=== PATIENT | female | born 1945 | race Caucasian/White ===

== ENCOUNTER 2016-05-15 20:38 | Emergency (ER) | payer OTHER ==
[~2016-05-15] VITALS: Ht 160 cm; Wt 78.0 kg
[~2016-05-15 20:38] MED LIST: AMIL5TAB15; FENO145T26 PO; GABA1CAP4 PO; HYDR25TA5 PO; LEVO50TA6 PO; LIDO5DIS10 TD; MCR/50 PO; POTA1CAP2 PO; TNR50 PO; TRAM-10 PO; VTMD PO; ZOLM1TAB3 PO; ZOLP5TAB PO
[2016-05-15 20:43] VITALS: TEMP 36.9; Ht 160 cm; Wt 78.0 kg
[2016-05-15] MEDS ORDERED: POTA10CA28 PO (21:30)
[2016-05-15] MEDS ORDERED: LDDP5 TOP (21:30)
--- NOTE | 2016-05-15 22:12 | DIAGNOSTIC IMAGING REPORT ---
PELVIS 1 OR 2 VIEW ROUTINE, LEFT KNEE 3 VIEWS, LEFT FEMUR 2 VIEWS ROUTINE CLINICAL HISTORY: fall, left hip and knee pain COMPARISON STUDY: None. FINDINGS: No acute fracture or dislocation within the pelvis, hips, left femur, left knee. The bones are osteopenic. The sacrum appears intact. There are surgical clips within the left inguinal region. Mild cartilage space narrowing within the bilateral hips. There is a left total knee arthroplasty. The hardware appears intact. No significant knee effusion. Irregularity at the greater trochanter is likely chronic. IMPRESSION: No acute fracture or dislocation within the pelvis, hips, left femur, or left knee. Electronically signed by: Alfonzo Sparrow M.D. 05/15/2016 10:10 PM Dictated Date/Time: 05/15/2016 10:06 PM
--- NOTE | 2016-05-15 22:13 | DIAGNOSTIC IMAGING REPORT ---
LEFT SHOULDER 3 VIEWS HISTORY: fall, left shoulder pain COMPARISON: None. FINDINGS: There is no fracture or dislocation. The bones are osteopenic. The left clavicle appears intact. There is a left total shoulder arthroplasty. The hardware is intact. No radiopaque foreign bodies. IMPRESSION: No acute fracture or dislocation within the left shoulder. Left total shoulder arthroplasty is noted. Electronically signed by: Alfonzo Sparrow M.D. 05/15/2016 10:11 PM Dictated Date/Time: 05/15/2016 10:10 PM
--- NOTE | 2016-05-15 22:16 | DIAGNOSTIC IMAGING REPORT ---
LUMBAR SPINE 5 VIEWS HISTORY: fall, low back pain COMPARISON: Lumbar spine 04/10/2016. FINDINGS: There is no fracture. No subluxation. Mild dextroscoliosis remains unchanged. The bones are osteopenic. Moderate facet degenerative changes within the mid to lower lumbar spine. Moderate disc space narrowing L3-L4. Mild disc space narrowing at L4-L5 and L5-S1. There is also mild disc space narrowing at L2-L3. This is not significantly changed. IMPRESSION: No significant change compared to the prior study. No acute fractures within the lumbar spine. Electronically signed by: Alfonzo Sparrow M.D. 05/15/2016 10:14 PM Dictated Date/Time: 05/15/2016 10:12 PM
--- NOTE | 2016-05-15 22:18 | DIAGNOSTIC IMAGING REPORT ---
CHEST ONE VIEW PORTABLE HISTORY: fall, left rib pain COMPARISON: Chest 09/24/2015. FINDINGS: The heart remains borderline enlarged. No pleural effusions. No pneumothorax. No focal lung consolidations. No evidence for pulmonary edema. There is a left shoulder prosthesis and cervical spine fusion hardware. No acute rib fractures identified. IMPRESSION: No significant change compared to the prior study. No acute process. Electronically signed by: Alfonzo Sparrow M.D. 05/15/2016 10:16 PM Dictated Date/Time: 05/15/2016 10:14 PM
--- NOTE | 2016-05-15 22:33 | DIAGNOSTIC IMAGING REPORT ---
HEAD CT NONCONTRAST CT DOSE: 930.20 mGy.cm HISTORY: fall, head injury TECHNIQUE: Multiaxial CT images of the head were performed without the use of intravenous contrast. Automated exposure control was utilized for this study. Comparison: None. Findings: The paranasal sinuses and mastoid air cells are clear. The calvarium and skull base are intact. The ventricles and sulci are within normal limits. There is no hematoma, midline shift, or acute infarct. Bilateral temporomandibular joint prostheses are noted. Focal area of sclerosis within the left occipital bone. This is likely due to old postoperative change. Calcified 1.4 cm extra-axial mass adjacent to the petrous apex. This likely represents a calcified meningioma. Impression: No acute intracranial abnormality. A 1.4 cm calcified extra-axial mass adjacent to the petrous apex. This favors a calcified meningioma. Electronically signed by: Alfonzo Sparrow M.D. 05/15/2016 10:31 PM Dictated Date/Time: 05/15/2016 10:26 PM
--- NOTE | 2016-05-15 22:38 | DIAGNOSTIC IMAGING REPORT ---
CERVICAL SPINE CT CT DOSE: HISTORY: fall, neck pain TECHNIQUE: Multiaxial CT images of the cervical spine were performed and reformatted in the sagittal and coronal plane without the use of contrast. COMPARISON: None. FINDINGS: No fractures. No subluxation. Prevertebral soft tissues and the C1-C2 interval are intact. No pneumothorax. Bilateral temporal mandibular joint prostheses. The hardware appears intact. Incomplete fusion of the left posterior C1 arch. This is considered to be a developmental variant. Moderate disc space narrowing at C2-C3 and C6-C7. There is anterior cervical discectomy and fusion from C3 through C6. The hardware appears intact. IMPRESSION: No fractures within the cervical spine. Postoperative and degenerative changes as described above. Electronically signed by: Alfonzo Sparrow M.D. 05/15/2016 10:36 PM Dictated Date/Time: 05/15/2016 10:30 PM
[2016-05-15] MEDS ORDERED: OXYC-57 PO (22:56)
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
[2016-05-15] MEDS ORDERED: PERCOCET HOME PACK PO ONE (23:00)
--- NOTE | 2016-05-15 23:09 | EMERGENCY ROOM VISIT NOTE ---
ED Visit Note First contact with patient: 20:54 Staff note: I have reviewed the Patients chart and have discussed this case with my PA. I generally agree with the ED note and findings.
[2016-05-15 23:24] VITALS: BP 186/110; PULSE 90; O2SAT 97
== END 2016-05-15 23:25 | disposition home or self-care (01) ==
LOC: C.EDB 20:39 → C.EDC 23:25
DX: T14.8 Other injury of unspecified body region (principal); W01.190A Fall on same level from slipping, tripping and stumbling with subsequent striking against furniture, initial encounter; Z86.718 Personal history of other venous thrombosis and embolism; Z79.899 Other long term (current) drug therapy

== ENCOUNTER → 2016-08-05 | Outpatient (CLI) | payer OTHER ==
[~2016-08-05] MED LIST changes: -FENO145T26 PO; +LDDP5 TOP; -LIDO5DIS10 TD; -MCR/50 PO; +NITR50CA39 PO; +POTA10CA28 PO; -POTA1CAP2 PO; -VTMD PO
--- NOTE | 2016-08-05 14:14 | DIAGNOSTIC IMAGING REPORT ---
LEFT ANKLE MIN 3 VIEWS CLINICAL HISTORY: Left ankle pain. COMPARISON: None FINDINGS: Alignment of the left ankle is anatomic. There is no acute fracture or suspicious lesion. There is mild plantar calcaneal spurring. There is mild lateral ankle soft tissue swelling. IMPRESSION: 1. No acute fracture or dislocation of the left ankle. 2. Mild plantar calcaneal spurring. 3. Mild lateral ankle soft tissue swelling. Electronically signed by: David Spring M.D. 08/05/2016 2:12 PM Dictated Date/Time: 08/05/2016 2:11 PM
--- NOTE | 2016-08-05 16:04 | DIAGNOSTIC IMAGING REPORT ---
LEFT FOOT 3 VIEWS CLINICAL HISTORY: Left foot pain. FINDINGS: 3 views of the left foot are obtained. No prior studies are available for comparison at the time of dictation. The skeletal structures are osteopenic. There is no radiographic evidence of fracture. The joint spaces of the foot appear well-maintained. There is a large plantar calcaneal enthesophyte. The overlying soft tissues are within normal limits. Atherosclerotic calcification is noted in the regional arteries. IMPRESSION: 1. No acute bony abnormality is seen in the left foot. 2. Osteopenia and plantar heel spur as above. Electronically signed by: Van Henry M.D. 08/05/2016 4:02 PM Dictated Date/Time: 08/05/2016 4:01 PM
== END | disposition home or self-care (01) ==
LOC: C.RDSM 13:21
PROVIDERS: ATTEND Physician Assistant
DX: M25.572 Pain in left ankle and joints of left foot (principal); M85.872 Other specified disorders of bone density and structure, left ankle and foot; M77.32 Calcaneal spur, left foot

== ENCOUNTER → 2017-04-02 | Outpatient (CLI) | payer OTHER | END | disposition home or self-care (01) | LOC: C.RDSM 10:38 | PROVIDERS: ATTEND Physical Medicine & Rehabilitation Sports Medicine | DX: M25.561 Pain in right knee (principal); M25.562 Pain in left knee ==

== ENCOUNTER → 2017-05-12 | Outpatient (CLI) | payer OTHER ==
[~2017-05-12] MED LIST changes: +ACET-1256 PO; +DICL1GEL12 EXT; +FEXO5TAB2 PO; +GABA1CAP PO; +LISI20TA3 PO; +ONDA4TAB10 SL; +POTA20TA16 PO; +VNTHFA/IN INH; +[UNRECOGNIZED DRUG - CODE] PO
--- NOTE | 2017-05-12 11:38 | DIAGNOSTIC IMAGING REPORT ---
L HAND MIN 3 VIEWS HISTORY: 72 years-old Female LEFT HAND PAIN persistent left hand pain status post fall approximately 2 months prior. COMPARISON: None available TECHNIQUE: 3 views of the left hand FINDINGS: Bones are mildly demineralized. At least moderate degenerative changes are seen throughout the interphalangeal joints. Moderate first carpometacarpal, radiocarpal and triscaphe osteoarthritis also noted. Chondrocalcinosis is seen within the radiocarpal joint and also within the distribution of the TFCC. There is mild apex lateral angulation of the second PIP joint. Mild dorsal hand soft tissue swelling. No opaque foreign body. IMPRESSION: 1. Mild dorsal hand soft tissue swelling without acute fracture identified. 2. Multifocal degenerative changes about the hand and wrist as above with radiocarpal and TFCC chondrocalcinosis. 3. Mild apex lateral angulation of the second PIP joint is likely degenerative in nature. Correlate with clinical exam to exclude subluxation. The above report was generated using voice recognition software. It may contain grammatical, syntax or spelling errors. Electronically signed by: Oumar Khan M.D. 05/12/2017 11:37 AM Dictated Date/Time: 05/12/2017 11:34 AM
== END | disposition home or self-care (01) ==
LOC: C.RDSM 11:20
PROVIDERS: ATTEND Physician Assistant
DX: M79.89 Other specified soft tissue disorders (principal); M19.042 Primary osteoarthritis, left hand; M11.29 Other chondrocalcinosis, multiple sites

== ENCOUNTER → 2017-06-17 | Outpatient (CLI) | payer OTHER ==
[~2017-06-17] MED LIST changes: -AMIL5TAB15; +GABA-113 PO; +GABA100C13 PO; -GABA1CAP PO; -GABA1CAP4 PO; -HYDR25TA5 PO; -LDDP5 TOP; -NITR50CA39 PO; -POTA10CA28 PO; -TNR50 PO; -TRAM-10 PO; -ZOLM1TAB3 PO
--- NOTE | 2017-06-17 13:49 | DIAGNOSTIC IMAGING REPORT ---
L WRIST MIN 3 VIEWS ROUTINE CLINICAL HISTORY: Left wrist pain COMPARISON: None. DISCUSSION: No acute fractures or subluxations are visualized. There is chondrocalcinosis present. There are mild degenerative changes in the wrist. IMPRESSION: Chondrocalcinosis and mild degenerative change. No acute fractures Electronically signed by: Leonardo Clements M.D. 06/17/2017 1:47 PM Dictated Date/Time: 06/17/2017 1:47 PM
--- NOTE | 2017-06-17 13:54 | DIAGNOSTIC IMAGING REPORT ---
LEFT SHOULDER 3 VIEWS HISTORY: LEFT SHOULDER AND WRIST PAIN COMPARISON: Left shoulder 05/15/2016. FINDINGS: There is again noted a reverse left total shoulder arthroplasty. The hardware appears intact. No fracture or dislocation. Soft tissues are unremarkable. The left clavicle is intact. IMPRESSION: 1. No fracture or dislocation within the left shoulder. 2. Reversal total shoulder arthroplasty. The hardware appears intact. Electronically signed by: Alfonzo Sparrow M.D. 06/17/2017 1:52 PM Dictated Date/Time: 06/17/2017 1:51 PM
== END | disposition home or self-care (01) ==
LOC: C.RDSM 08:00
PROVIDERS: ATTEND Physician Assistant
DX: M25.532 Pain in left wrist (principal); M25.512 Pain in left shoulder

== ENCOUNTER → 2017-07-07 | Outpatient (CLI) | payer OTHER ==
[~2017-07-07] MED LIST changes: -GABA100C13 PO
== END | disposition home or self-care (01) ==
LOC: C.RDSM 15:41
PROVIDERS: ATTEND Physical Medicine & Rehabilitation
DX: M79.605 Pain in left leg (principal)

== ENCOUNTER → 2017-07-17 | Day surgery (SDC) | payer OTHER ==
[2017-05-19 15:23] VITALS: BMI 32.0
[2017-06-26 11:42] VITALS: Ht 154.9 cm; Wt 79.5 kg
[~2017-07-17] VITALS: Ht 154.9 cm; Wt 79.5 kg
[~2017-07-17] MED LIST changes: +IOPAMIDOL INJ 61% 15 ML VIAL ONE; +IOPAMIDOL IV ONE; +LIDOCAINE HCL 1% MPF 5 ML VIAL INJ ONE; +LIDOCAINE HCL 1% MPF 5 ML VIAL ONE; +SODIUM CHLORIDE 0.9% INJ 10 ML VIAL INJ ONE; +SODIUM CHLORIDE 0.9% INJ 10 ML VIAL ONE
--- NOTE | 2017-07-17 13:25 | History & Physical Bridge - SC ---
H&P Re-Evaluation Bridge Note: I have examined the patient, reviewed the History & Physical and in the interval since the performance of the History & Physical I have noted the following changes of clinical significance: No changes noted
--- NOTE | 2017-07-17 13:48 | [facility] Post Operative Brief Note ---
Immediate Operative Summary Operative Date Jul 17, 2017. Pre-Operative Diagnosis Severe lumbar spinal stenosis with synovial cyst causing radicular problems down left leg Post-Operative Diagnosis Same Procedure(s) Performed Lumbar Epidural Steroid Injection Surgeon Dr. Surjit Mcdonough Crackling Press Operator Surgeon(s) None Estimated Blood Loss 0 Findings Consistent with Post-Op Diagnosis Specimens NA Drains None Anesthesia Type Local Complication(s) none Disposition Disposition:
--- NOTE | 2017-07-17 13:49 | Discharge Instructions ---
Discharge Instructions Date of Service Jul 17, 2017. 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 Post Anesthesia Instructions: If you have had General Anesthesia or IV Sedation: * Do not drive today. * Resume driving when surgeon permits. * Do not make important decisions or sign legal documents today. * Call surgeon for: 1. Temperature elevations greater than 101 degrees F. 2. Uncontrollable pain. 3. Excessive bleeding. 4. Persistent nausea and vomiting. 5. Medication intolerance (nausea, vomiting or rash). * For nausea and vomiting use only clear liquids such as: tea, soda, bouillon until nausea subsides, then gradually increase diet as tolerated. * If you have any concerns or questions, call your surgeon's office. If physician is unavailable and it is an emergency, call 911 or go to the nearest emergency room. . Diet Recommendations Recommended Home Diet: resume previous diet Procedures Procedures Performed: Lumbar Epidural Steroid Injection Pending Studies Studies pending at discharge: no Medical Emergencies . Who to Call and When: Medical Emergencies: If at any time you feel your situation is an emergency, please call 911 immediately. . Non-Emergent Contact Non-Emergency issues call your: Specialist . . "Provider Documentation" section prepared by Lemuel Mcdonough. .
[2017-07-17 13:50] VITALS: TEMP 36.6
[2017-07-17 14:20] VITALS: BP 160/80; PULSE 80; O2SAT 99
--- NOTE | 2017-07-17 14:55 | OPERATIVE REPORT ---
DATE OF OPERATION: 07/17/2017 PREOPERATIVE DIAGNOSIS: Severe spinal stenosis with a synovial cyst L5-S1 causing left lower extremity radiculopathy. POSTOPERATIVE DIAGNOSIS: Same. PROCEDURE: Left paramedian L5-S1 intralaminar epidural steroid injection under fluoroscopic guidance. INDICATIONS: The patient is a 72-year-old female who presents today for an epidural steroid injection as the pain has become intractable. She is also scheduled to see a spine surgeon for possible resection of the synovial cyst, but feels that her leg is getting weaker, it is impacting her function and wants something done in the interim while awaiting potential evaluation. PHYSICAL EXAMINATION: GENERAL: Pleasant female seated comfortably. She has no distal weakness, has decreased subjective sensation in the L5 dermatomal distribution of her left lower extremity. CONSENT: Verbal and written consent was obtained from patient. Risks and benefits were reviewed. Risks include but are not limited to epidural abscess, epidural hematoma, allergic reaction, dural puncture. The patient wishes to proceed. DESCRIPTION OF PROCEDURE: The patient was taken back to the special procedures room of the [facility] where she was maintained in prone position. Backside was cleansed with Betadine x3 and a dry sterile dressing was applied. Fluoroscope was used to identify the L5-S1 intralaminar space and overlying skin on the left side was anesthetized with 4 mL of lidocaine 1% with a 25 gauge 1.5-inch needle. A 22 gauge 4.25-inch Tuohy needle was then directed down towards the intralaminar space. Loss of resistance was noted at a depth of just under 9 cm. Isovue-300 contrast 1 mL was injected in, which demonstrated epidural uptake pattern. She then underwent injection after negative aspiration of 40 mg Depo-Medrol and 4 mL of preservative free sodium chloride. Injection was done very slowly as she had reproduction of familiar radicular sensation down the leg. DISPOSITION: 1. The patient is taken out into the discharge recovery area where she will be discharged home once discharge criteria have been met. 2. Follow up in the [facility] office in 2-4 weeks. I attest to the content of the Intraoperative Record and any orders documented therein. Any exception s are noted below.
== END | disposition home or self-care (01) ==
LOC: X.SURG 12:26
PROVIDERS: ATTEND Physical Medicine & Rehabilitation
DX: M48.061 Spinal stenosis, lumbar region without neurogenic claudication (principal); M54.16 Radiculopathy, lumbar region; M71.38 Other bursal cyst, other site

== ENCOUNTER 2020-11-01 12:56 | Inpatient (IN) ==
--- NOTE | 2020-11-01 13:55 | Emergency Department Note ---
Impression & Plan Cystitis, Arm pain, left ED Provider Note NAME: DEBBIE BONE AGE: 75 SEX: F : 1945 ARRIVES VIA: Ambulance INFORMANT: Patient, ED PROVIDER(S): Blade Rowan MD Chief Complaint: Hematuria HPI: Patient does present with concern for hematuria has been ongoing for the last 1 to 2 days. The patient does have a recent history of urosepsis per the patient's [id number] which occurred at the end of August. Patient did have a recent admission at [facility]. Patient does complain of some mild back disco mfort and some increasing urinary frequency. The patient denies any chills but always feels warm. No reported chest pains or shortness of breath. The patient does have some chronic left shoulder pain does have some contractures of the left hand which are chronic in nature. Patient does have a prior history of a left total shoulder. Patient is try taking ebar-ebp-lgaseof medications but without improvement in symptoms. ROS: See HPI for pertinent positives and negatives. A total of 10 systems were reviewed and otherwise negative. Past medical history: See below Surgical history: See below Social history: See below Physical Exam: GENERAL: NAD, non-toxic. EYE EXAM: Normal conjunctiva. PERRL, no anisocoria and EOM's grossly intact w/o pain. [OROPHARYNX: Moist mucus membranes. Grossly normal dentition. ] NECK: Supple, no nuchal rigidity, no adenopathy, non-tender. No signs of mening ismus. LUNGS: Clear to auscultation. Normal chest wall mechanics. HEART: Irregularly irregular, no MRG. ABDOMEN: Abdomen soft, non-tender, normo-active bowel sounds, no masses, no rebound or guarding. BACK: No CVA TTP. SKIN: No rashes and no bruising. UPPER EXTREMITIES: Upper extremities are grossly normal. LOWER EXTREMITIES: Grossly normal, no edema. NEURO EXAM: A&O x3, cranial nerves II-XII grossly intact, normal speech, moves all 4 extremities on command w/o issue. Differential diagnoses: Infection, dehydration, metabolic abnormality, hypo/hyperglycemia, electrolyte disturbance, anemia, hypoxia, cardiac sources, intracerebral event, toxicologic, neurologic, as well as other pathologies. Course: Patient was seen and evaluated the bedside. Full history physical exam was performed. EKG interpreted by me Possible A. fib with a rate of 80, normal QRS, normal axis, PVC noted. Imaging Studies: See below Cardiac monitoring: An order was placed for continuous cardiac monitoring. The monitor shows a rate of 82 with irregular irregular rhythm. MDM: Present with concern for hematuria. Blood work was obtained. Blood work fairly unremarkable. Urinalysis does appear to be infected. After further discussion with the patient patient's family were bedside there is concerned about inability to care at home they have discussed possible placement to [facility]. I did have the employment evaluator/case manager talk with the family the patient was subsequently admitted to [facility]-C under Dr. Dickey with [facility]. Past Med/Surg History Medical History Ambulatory dysfunction Anemia Chronic back pain CKD (chronic kidney disease), stage III Degenerative disc disease GERD (gastroesophageal reflux disease) Hearing loss in left ear Hyperlipidemia Hypertension Hypothyroidism Migraine Nausea and vomiting after administration of anesthetic agent Osteoarthritis Parkinson disease Recurrent UTI Spinal stenosis Surgical History History of appendectomy History of bilateral cataract extraction History of bilateral tubal ligation History of bladder surgery botox injections into bladder History of bladder suspension procedure x2 History of brain surgery "microvascular decompression" X2 @ [facility] 2009? History of colonoscopy with polypectomy History of dilatation and curettage History of esophagogastroduodenoscopy (EGD) History of fusion of cervical spine C3-C6; normal ROM History of left breast biopsy x2--benign History of lumbar discectomy L4-L5 History of mandibular surgery x2 2007 after accident--1st time wired shut 2nd sx metal jaw put in---normal ROM History of open reduction and internal fixation (ORIF) procedure right ankle History of partial hysterectomy History of shoulder surgery x4 on left History of surgery brain stimulator removed 1 yr after placed History of surgery on arm right x2 d/t dog bite History of surgery on right wrist fx repair, no hardware History of tooth extraction History of total left knee replacement (TKR) History of total right knee replacement (TKR) History of wisdom tooth extraction Status post correction of deviated nasal septum Status post deep brain stimulator placement 2009 @ [facility] Family History Son Family history of reaction to anesthesia nausea/vomiting Family history of diabetes mellitus Son Family history of reaction to anesthesia nausea/vomiting Son Family history of reaction to anesthesia nausea/vomiting Father Family history of diabetes mellitus Mother Family history of diabetes mellitus Family hx of colon cancer Grandmother (Paternal) Family history of diabetes mellitus Social History Smoking Status: Never smoker Second Hand Exposure: No; Do You Dip or Chew Tobacco: No; Hx Alcohol Use: No Hx Substance Use: No Preferred Language: Kazakh Communication Ability: Effective Pantomimist Required: No Beliefs That Will Affect Care: None Current Living Situation: Family Current Living Situation Comment: lives with at home; but currently staying with son and DIL Other Information That Helps Us Care for You: No Feels Safe at Home: Yes Safety Concerns: Feels Safe At This Time Assistive Devices: Glasses Allergies Allergies Allergy/AdvReac Type Severity Reaction Status Date / Time bee venom protein (honey bee) Allergy Severe ANAPHYLAXIS Verified 11/01/20 19:20 shellfish derived Allergy Severe anaphylaxis Verified 11/01/20 19:20 Sulfa (Sulfonamide Allergy Severe ANAPHYLAXIS Verified 11/01/20 19:20 Antibiotics) Home Meds Home Medications Medication Instructions Recorded Confirmed Toviaz 4 mg PO QAM 06/21/19 11/01/20 acetaminophen 1,000 mg PO BID 06/21/19 11/01/20 amlodipine 10 mg PO QAM 06/21/19 11/01/20 carbidopa-levodopa 1 tab PO TID 06/21/19 11/01/20 ferrous sulfate 325 mg PO QAM 06/21/19 11/01/20 nitrofurantoin macrocrystal 100 mg PO HS 06/21/19 11/01/20 omeprazole 20 mg PO QAM 06/21/19 11/01/20 potassium chloride 10 meq PO BID 06/21/19 11/01/20 acetaminophen 650 mg PO Q4H PRN MDD 3G 11/01/20 11/01/20 albuterol sulfate 1 inh INHALATION Q4H PRN 11/01/20 11/01/20 alum-mag hydroxide-simeth [Mi-Acid] 30 ml PO Q4H PRN 11/01/20 11/01/20 baclofen 10 mg PO BID PRN 11/01/20 11/01/20 ezetimibe 10 mg PO HS 11/01/20 11/01/20 gabapentin 100 mg PO BID 11/01/20 11/01/20 isosorbide mononitrate 30 mg PO QAM 11/01/20 11/01/20 lactase [Dairy-Aid] 3,000 unit PO AC PRN 11/01/20 11/01/20 lidocaine [Aspercreme (lidocaine 1 patch TOPICAL DAILY 11/01/20 11/01/20 HCl)] zolpidem 5 mg PO HS PRN 11/01/20 11/01/20 Results & Data (ED) Vital Signs Vital Signs - 24 hr 11/01/20 13:00 11/01/20 13:02 11/01/20 14:00 Temperature 37.0 C Temperature Source Oral Pulse Rate 84 84 85 Pulse Rate [Apical] 84 Pulse Rate from SpO2 Sensor 80 79 Respiratory Rate 22 20 22 Respiratory Effort / Characteristics Non-Labored Respiratory Depth Normal Respiratory Pattern Regular Blood Pressure 157/87 H 151/77 H 158/91 H Blood Pressure [Right Arm] 151/77 H Blood Pressure Mean 110 101 113 Blood Pressure Mean [Right Arm] 101 Pulse Oximetry 95 94 95 Oxygen Delivery Method Room Air Sepsis Recent Fever Within 48 Hours No Sepsis New/Unexplained Change in Mental Status No Sepsis Action Taken by Nursing No Action Required 11/01/20 15:01 11/01/20 15:03 11/01/20 16:00 Temperature Temperature Source Pulse Rate 83 83 75 Pulse Rate [Apical] 83 Pulse Rate from SpO2 Sensor 68 75 Respiratory Rate 16 20 21 Respiratory Effort / Characteristics Non-Labored Spontaneous Respiratory Depth Normal Respiratory Pattern Regular Blood Pressure 138/69 Blood Pressure [Right Arm] 139/73 Blood Pressure Mean 92 Blood Pressure Mean [Right Arm] 95 Pulse Oximetry 96 96 97 Oxygen Delivery Method Room Air Sepsis Recent Fever Within 48 Hours Sepsis New/Unexplained Change in Mental Status Sepsis Action Taken by Nursing 11/01/20 17:00 11/01/20 17:39 11/01/20 18:00 Temperature Temperature Source Pulse Rate 85 81 78 Pulse Rate [Apical] Pulse Rate from SpO2 Sensor 80 84 Respiratory Rate 23 20 22 Respiratory Effort / Characteristics Respiratory Depth Respiratory Pattern Blood Pressure 149/95 H 149/95 H 136/79 Blood Pressure [Right Arm] Blood Pressure Mean 113 113 98 Blood Pressure Mean [Right Arm] Pulse Oximetry 94 96 94 Oxygen Delivery Method Room Air Sepsis Recent Fever Within 48 Hours Sepsis New/Unexplained Change in Mental Status Sepsis Action Taken by Custodial Medications Current Medication List: was personally reviewed by me Laboratory Data Attestation: I reviewed the patient's lab results. Result diagrams: 11/02/20 03:09 11/02/20 03:09 Lab Results 11/01/20 11/01/20 Range/Units 13:58 13:58 WBC 8.42 (4.8-10.8) K/uL RBC 4.45 (4.2-5.4) M/uL Hgb 12.2 (12.0-16.0) g/dL Hct 37.9 (37-47) % MCV 85.2 (80-100) fL MCH 27.4 (25-34) pg MCHC 32.2 (32-36) g/dL RDW Std Deviation 45.8 (36.4-46.3) fL RDW Coeff of Tsering 14.7 H (11.5-14.5) % Plt Count 295 (130-400) K/uL MPV 9.7 (7.4-10.4) fL Immature Gran % (Auto) 0.1 % Neut % (Auto) 63.2 % Lymph % (Auto) 25.4 % [place] % (Auto) 8.2 % Eos % (Auto) 2.7 % Baso % (Auto) 0.4 % Neut # (Auto) 5.32 (1.4-6.5) K/uL Lymph # (Auto) 2.14 (1.2-3.4) K/uL [place] # (Auto) 0.69 H (0.11-0.59) K/uL Eos # (Auto) 0.23 (0-0.5) K/uL Baso # (Auto) 0.03 (0-0.2) K/uL Immature Gran # (Auto) 0.01 (0.00-0.02) K/uL Sodium 140 (136-145) mmol/L Potassium 4.0 (3.5-5.1) mmol/L Chloride 108 H (98-107) mmol/L Carbon Dioxide 26 (21-32) mmol/L Anion Gap 6.0 (3-11) BUN 17 (7-18) mg/dl Creatinine 0.61 (0.6-1.2) mg/dl Est Cr Clr Drug Dosing 78.6 ml/min Est GFR ( Amer) 103.5 ml/min Est GFR (Non-Af Amer) 89.3 ml/min BUN/Creatinine Ratio 27.3 H (10-20) Glucose 97 (70-99) mg/dl Calcium 9.3 (8.5-10.1) mg/dl Total Bilirubin 0.7 (0.2-1) mg/dl AST 12 L (15-37) U/L ALT 11 L (12-78) U/L Alkaline Phosphatase 93 (45-117) U/L Troponin I < 0.015 (0-0.045) ng/ml Total Protein 7.2 (6.4-8.2) gm/dl Albumin 3.7 (3.4-5.0) gm/dl Globulin 3.5 (2.5-4.0) gm/dl Albumin/Globulin Ratio 1.1 (0.9-2) TSH 1.450 (0.300-4.500) uIu/ml Administered Medications Acetaminophen (Acetaminophen 325 Mg Tab) 650 mg PO Q4H PRN PRN Reason: Pain or Fever Stop: 12/01/20 21:32 Last Admin: 11/01/20 22:26 Dose: 650 mg Documented by: [id number] Amlodipine Besylate (Amlodipine Besylate 5 Mg Tab) 10 mg PO QAM [facility] Stop: 12/02/20 08:59 Last Admin: 11/02/20 08:19 Dose: 10 mg Documented by: [id number] Carbidopa/Levodopa (Carbidopa/Levodopa 25/100mg Tab) 1 tab PO TID [facility] Stop: 12/01/20 21:32 Last Admin: 11/02/20 08:18 Dose: 1 tab Documented by: [id number] Admin: 11/01/20 22:27 Dose: 1 tab Documented by: [id number] Ezetimibe (Ezetimibe 10 Mg Tablet) 10 mg PO HS [facility] Stop: 12/01/20 21:32 Last Admin: 11/01/20 22:27 Dose: 10 mg Documented by: [id number] Enoxaparin Sodium (Enoxaparin Inj 40 Mg/0.4 Ml Syr) 40 mg SQ Q24H [facility] Stop: 12/01/20 21:59 Last Admin: 11/01/20 22:27 Dose: 40 mg Documented by: [id number] Gabapentin (Gabapentin 100 Mg Cap) 100 mg PO BID [facility] Stop: 12/01/20 21:32 Last Admin: 11/02/20 08:19 Dose: 100 mg Documented by: [id number] Admin: 11/01/20 22:27 Dose: 100 mg Documented by: [id number] Sodium Chloride (Nss 1000ml) 1,000 mls @ 80 mls/hr IV .[id number] [facility] Stop: 11/02/20 10:02 Last Admin: 11/01/20 22:26 Dose: 80 mls/hr Documented by: [id number] Isosorbide Mononitrate (Isosorbide [place] Extended Rel 30 Mg Tabcr) 30 mg PO [facility] Stop: 12/02/20 08:59 Last Admin: 11/02/20 08:19 Dose: 30 mg Documented by: [id number] Lidocaine (Lidocaine 5% 1 Patch) 1 patch TD [facility] Stop: 12/02/20 08:59 Last Admin: 11/02/20 08:20 Dose: 1 patch Documented by: [id number] Miscellaneous (Toviaz - Order Awaiting Action) 1 ea N/A QS [facility] Stop: 12/02/20 00:00 Last Admin: 11/02/20 08:18 Dose: Not Given Documented by: [id number] Admin: 11/01/20 23:32 Dose: Not Given Documented by: [id number] Miscellaneous (Remove Lidoderm Patch) 1 ea N/A DAILY@2100 [facility] Stop: 12/01/20 21:32 Last Admin: 11/01/20 22:27 Dose: 1 ea Documented by: [id number] Pantoprazole Sodium (Pantoprazole 40 Mg Tab) 40 mg PO [facility] Stop: 12/02/20 08:59 Last Admin: 11/02/20 08:19 Dose: 40 mg Documented by: [id number] Zolpidem Tartrate (Zolpidem Tartrate 5 Mg Tab) 5 mg PO HS PRN PRN Reason: Sleep Stop: 12/01/20 22:59 Last Admin: 11/01/20 23:32 Dose: 5 mg Documented by: [id number] Discontinued Medications Acetaminophen (Acetaminophen 500 Mg Tab) 1,000 mg PO NOW STA Stop: 11/01/20 14:08 Last Admin: 11/01/20 15:09 Dose: 1,000 mg Documented by: [id number] Ceftriaxone Sodium (Rocephin) 2,000 mg in 70 mls @ 140 mls/hr IV NOW STA Stop: 11/01/20 17:12 Last Infusion: 11/01/20 18:11 Dose: 0 mls/hr Documented by: [id number] Admin: 11/01/20 17:12 Dose: 140 mls/hr Documented by: [id number] Magnesium Sulfate/Dextrose (Magnesium Sulfate / D5w) 1 gm in 100 mls @ 50 mls/hr IV 0430 ONE Stop: 11/02/20 06:29 Last Infusion: 11/02/20 06:46 Dose: 0 mls/hr Documented by: [id number] Admin: 11/02/20 04:44 Dose: 50 mls/hr Documented by: [id number] Lidocaine (Lidocaine 5% 1 Patch) 1 patch TD NOW STA Stop: 11/01/20 14:08 Last Admin: 11/01/20 15:09 Dose: 1 patch Documented by: [id number] Potassium Chloride (Potassium Chloride Crtab 20 Meq Tabcr) 40 meq PO NOW STA Stop: 11/02/20 04:18 Last Admin: 11/02/20 04:45 Dose: 40 meq Documented by: [id number] Potassium Chloride (Potassium Chloride Crtab 20 Meq Tabcr) 40 meq PO NOW STA Stop: 11/02/20 08:20 Last Admin: 11/02/20 08:40 Dose: 40 meq Documented by: [id number] Tramadol HCl (Tramadol Hcl 50 Mg Tablet) 50 mg PO NOW STA Stop: 11/01/20 14:08 Last Admin: 11/01/20 15:09 Dose: 50 mg Documented by: [id number] Discharge Plan Visit Data Chief Complaint: Hematuria Stated Complaint: HEMATURIA, L ARM PAIN ED Provider: Blade Rowan Discharge Problem: Cystitis, Arm pain, left Patient Disposition: Admitted As Inpatient Discharge Instructions Interventions: ED Discharge Assessment Last Done: 11/01/20 20:46
[2020-11-01] MEDS ORDERED: traMADol HCL 50 MG TABLET PO STA (14:07)
[2020-11-01] MEDS ORDERED: ACETAMINOPHEN 500 MG TAB PO STA (14:07)
[2020-11-01] MEDS ORDERED: LIDOCAINE 5% 1 PATCH TD STA (14:07)
[2020-11-01 14:19] LABS: Basophils # (auto) 0.03 K/uL (0-0.2); Basophils % (auto) 0.4 %; Eosinophils # (auto) 0.23 K/uL (0-0.5); Eosinophils % (auto) 2.7 %; Hematocrit (blood only) 37.9 % (37-47); Hemoglobin 12.2 g/dL (12.0-16.0); Immature Granulocytes # (auto) 0.01 K/uL (0.00-0.02); Immature Granulocytes % (auto) 0.1 %; Lymphocytes # (auto) 2.14 K/uL (1.2-3.4); Lymphocytes % (auto) 25.4 %; Mean Corpuscular Hemoglobin 27.4 pg (25-34); Mean Corpuscular Hgb Conc 32.2 g/dL (32-36); Mean Corpuscular Volume 85.2 fL (80-100); Mean Platelet Volume 9.7 fL (7.4-10.4); Monocytes # (auto) 0.69 K/uL (0.11-0.59); Monocytes % (auto) 8.2 %; Neutrophils # (auto) 5.32 K/uL (1.4-6.5); Neutrophils % (auto) 63.2 %; Platelet Count 295 K/uL (130-400); RDW Coefficient of Variation 14.7 % (11.5-14.5); RDW Standard Deviation 45.8 fL (36.4-46.3); Red Blood Count 4.45 M/uL (4.2-5.4); White Blood Count 8.42 K/uL (4.8-10.8)
--- NOTE | 2020-11-01 14:31 | XRay Report ---
XR chest 1V portable HISTORY: weakness COMPARISON: Chest 05/15/2016. FINDINGS: Cardiac silhouette remains mildly enlarged. No focal lung consolidations to suggest pneumon ia. No pleural effusions. No pneumothorax. There is a left shoulder prosthesis. IMPRESSION: No acute process. ACT 112: Negative or not required by law. Electronically signed by: Alfonzo Sparrow M.D. 11/01/2020 2:30 PM
--- NOTE | 2020-11-01 14:32 | XRay Report ---
LEFT SHOULDER 4 VIEWS HISTORY: Left shoulder pain COMPARISON: Left shoulder radiograph 08/06/2018. FINDINGS: Postoperative changes again noted consistent with a prior reverse left total shoulder arthr oplasty. The hardware appears intact. No abnormal periprosthetic lucency. No fracture or dislocation. The left clavicle is intact. Soft tissues are unremarkable. IMPRESSION: No acute fracture or dislocation of the left shoulder. Prior left total shoulder arthroplasty. ACT 112: Negative or not required by law. Electronically signed by: Alfonzo Sparrow M.D. 11/01/2020 2:31 PM
[2020-11-01 14:37] LABS: Alanine Aminotransferase 11 U/L (12-78); Albumin Level 3.7 gm/dl (3.4-5.0); Aspartate Aminotransferase 12 U/L (15-37); BUN Creatinine Ratio 27.3 (10-20); Blood Urea Nitrogen 17 mg/dl (7-18); Calcium 9.3 mg/dl (8.5-10.1); Carbon Dioxide 26 mmol/L (21-32); Chloride 108 mmol/L (98-107); Creatinine Clr Calc Pharmacy 78.6 ml/min; Est GFR (African American) 103.5 ml/min; Est GFR (Non-African American) 89.3 ml/min; Glucose 97 mg/dl (70-99); Sodium 140 mmol/L (136-145)
[2020-11-01 14:48] LABS: Albumin Globulin Ratio 1.1 (0.9-2); Alkaline Phosphatase 93 U/L (45-117); Bilirubin,Total 0.7 mg/dl (0.2-1); Globulin 3.5 gm/dl (2.5-4.0); Total Protein 7.2 gm/dl (6.4-8.2); Troponin I < 0.015 ng/ml (0-0.045)
[2020-11-01 15:59] LABS: Appearance Urine Cloudy (Clear); Bilirubin Urine Negative (Negative); Blood Urine 2+ (Negative); Color Urine Yellow; Glucose Urine UA Negative (Negative); Ketones Urine Negative (Negative); Leukocyte Esterase Urine 3+ (Negative); Nitrite Urine Negative (Negative); Protein Urine 3+ (Negative); Urobilinogen Urine Negative (Negative); pH Urine 8.5 (4.5-7.5)
[2020-11-01 16:26] LABS: Epithelial Cell Urine 0-5 /lpf (0-5)
[2020-11-01 16:27] LABS: Bacteria Urine 3+ (Negative); WBC Urine >30 /hpf (0-5)
[2020-11-01] MEDS ORDERED: cefTRIAXone SODIUM 2,000 MG/70 ML BAG IV STA (16:43)
--- NOTE | 2020-11-01 18:05 | History & Physical Report ---
Date of Service November 01, 2020 Assessment & Plan (1) UTI (urinary tract infection): Pt is 75 y/o F with PMH HTN, dyslipidemia, hypothyroidism, anemia, recurrent UTI, recurrent falls, Parkinson, insomnia, GERD, spinal stenosis, chronic back pain, CKD III and others listed below presented to ER for complaint of hematuria, foul smelling urine. H/O UTI 09/22/2020, treated at [facility] with Rocephin x3 days and discharged on Ceftin, urine culture pansensitive E. coli Today in ER patient afebrile, vitals stable, BUN: 17, Cr: 0.61 UA:3+bacteria, >30 WBC, 3+leukocyte esterase, 2+ blood. Was given Rocephin 2GM IV Urine culture pending Rocephin IV Hold chronic nitrofurantoin CBC, BMP in a.m. (2) Ambulatory dysfunction: (3) Parkinson disease: History of Parkinson's. Previously followed with Dr. Fields. Patient was referred to movement disorder clinic at [facility] [place] however did not follow-up. Reports baseline uses wheelchair and wheeled walker Continue carbidopa/levodopa PT/OT roni I have made multiple attempts at contacting family members (, as well as pt's son - Enrrique Maxwell) listed on contact list without answer. Further clarification of medication list and baseline ambulation will be needed (4) Hypertension: Continue amlodipine (5) Shoulder pain: C/O Left shoulder pain. H/O frozen shoulder, arthroplasty Xray Shoulder: no acute changes lidocaine patch prn (6) Abnormal EKG: EKG: very poor tracing making interpretation difficult. appears sinus rhythm with PVC Initial Troponin negative. Denies CP, SOB Trend troponin Repeat EKG in am (7) Hyperlipidemia: Patient denied statin use in past Continue ezetimibe (8) Hypothyroidism: TSH: 1.4 Does not appear that patient has been taking levothyroxine. Last prescribed 11/2019 (9) CKD (chronic kidney disease), stage III: Cr: 0.6. ~Baseline 0.8 Monitor renal functions, avoid nephrotoxic agents when possible (10) GERD (gastroesophageal reflux disease): Continue PPI (11) Chronic back pain: Continue gabapentin, baclofen DVT Prophylaxis -Lovenox SQ Full Code as per discussion with pt Follows with Dr Robles for routine care Pt was seen and care coordinated with Dr Dickey. See addendum History of Present Illness Chief Complaint: hematuria Primary Care Provider: Soledad Jorge MD Pt is 75 y/o F with PMH HTN, dyslipidemia, hypothyroidism, anemia, recurrent UTI, recurrent falls, Parkinson, insomnia, GERD, spinal stenosis, chronic back pain, CKD III and others listed below presented to ER for complaint of hematuria. Patient presents via EMS from her son's house. EMS report [id number] had noted hematuria, blood in patient's depends and foul- smelling urine. Patient also complains of left shoulder pain. She reports history of left frozen shoulder and history of shoulder replacement. Pt also c/o bilateral leg pain from knees to feet. [id number] was looking for possible placement to [facility]. Patient reports last fall was on September 22, 2020. She states she was seen at [facility] 09/22/20-09/26/20 for sepsis, UTI - pansensitive e coli treated with Rocephin and d/c on Ceftin, Blood cultures were negative, FRANC, recurrent falls, ambulatory dysfunction and then was discharged to [facility]. Discharge summary reports pt with prior hospitalizations for falls and SNF was recommended however pt refused. Patient states at baseline uses wheelchair and rolling walker. Reports prior to going to skilled nursing was able to transfer however reports increased difficulty now. Patient follows with Dr. Robles. Last office note from 09/18/20 stated that patient had not been taking omeprazole, amlodipine, atenolol, levothyroxine, iron, potassium supplement. Reports that she had Toviaz filled 07/24/2020, Macrobid- filled 02/11/2020, Sinemet last filled 09/10/2019. Patient was also advised to avoid Benadryl for insomnia. Discharge med list from [facility] listed pt meds: Isosorbide mononitrate 30 mg daily, albuterol as needed, gabapentin 100 mg twice daily, ezetimibe 10 mg at bedtime, amlodipine 10 mg daily, carbidopa levodopa 25/100 mg 3 times daily, Toviaz 4 mg daily, KCl 10 meq daily, pantoprazole 40 mg daily, tramadol 50 mg every 8 hours as needed. Denies fever/chills, diaphoresis, N/V/D/C, HALL, dizziness, syncope, vision changes, neck pain, CP, SOB, orthopnea, palpitations, cough, sore throat, choki ng, otalgia, rhinorrhea, abdominal pain, extremity edema, rashes, dysuria. In ER UA with 3+bacteria, >30 WBC, 3+leukocyte esterase, 2+ blood. Was given Rocephin 2GM IV. Lidocaine patch and tramadol also given for shoulder pain. Left shoulder xray without acute findings Allergies Allergy/AdvReac Type Severity Reaction Status Date / Time bee venom protein (honey bee) Allergy Severe ANAPHYLAXIS Verified 11/01/20 19:20 shellfish derived Allergy Severe anaphylaxis Verified 11/01/20 19:20 Sulfa (Sulfonamide Allergy Severe ANAPHYLAXIS Verified 11/01/20 19:20 Antibiotics) Home Medications Medication Instructions Recorded Confirmed Type Toviaz 4 mg PO QAM 06/21/19 11/01/20 History acetaminophen 1,000 mg PO BID 06/21/19 11/01/20 History amlodipine 10 mg PO QAM 06/21/19 11/01/20 History carbidopa-levodopa 1 tab PO TID 06/21/19 11/01/20 History ferrous sulfate 325 mg PO QAM 06/21/19 11/01/20 History nitrofurantoin macrocrystal 100 mg PO HS 06/21/19 11/01/20 History omeprazole 20 mg PO QAM 06/21/19 11/01/20 History potassium chloride 10 meq PO BID 06/21/19 11/01/20 History acetaminophen 650 mg PO Q4H PRN MDD 3G 11/01/20 11/01/20 History albuterol sulfate 1 inh INHALATION Q4H PRN 11/01/20 11/01/20 History alum-mag hydroxide-simeth [Mi-Acid] 30 ml PO Q4H PRN 11/01/20 11/01/20 History baclofen 10 mg PO BID PRN 11/01/20 11/01/20 History ezetimibe 10 mg PO HS 11/01/20 11/01/20 History gabapentin 100 mg PO BID 11/01/20 11/01/20 History isosorbide mononitrate 30 mg PO QAM 11/01/20 11/01/20 History lactase [Dairy-Aid] 3,000 unit PO AC PRN 11/01/20 11/01/20 History lidocaine [Aspercreme (lidocaine 1 patch TOPICAL DAILY 11/01/20 11/01/20 History HCl)] zolpidem 5 mg PO HS PRN 11/01/20 11/01/20 History Past Med/Surg History Medical History Ambulatory dysfunction Anemia Chronic back pain CKD (chronic kidney disease), stage III Degenerative disc disease GERD (gastroesophageal reflux disease) Hearing loss in left ear Hyperlipidemia Hypertension Hypothyroidism Migraine Nausea and vomiting after administration of anesthetic agent Osteoarthritis Parkinson disease Recurrent UTI Spinal stenosis Surgical History History of appendectomy History of bilateral cataract extraction History of bilateral tubal ligation History of bladder surgery botox injections into bladder History of bladder suspension procedure x2 History of brain surgery "microvascular decompression" X2 @ [facility] 2009? History of colonoscopy with polypectomy History of dilatation and curettage History of esophagogastroduodenoscopy (EGD) History of fusion of cervical spine C3-C6; normal ROM History of left breast biopsy x2--benign History of lumbar discectomy L4-L5 History of mandibular surgery x2 2008 after accident--1st time wired shut 2nd sx metal jaw put in---normal ROM History of open reduction and internal fixation (ORIF) procedure right ankle History of partial hysterectomy History of shoulder surgery x4 on left History of surgery brain stimulator removed 1 yr after placed History of surgery on arm right x2 d/t dog bite History of surgery on right wrist fx repair, no hardware History of tooth extraction History of total left knee replacement (TKR) History of total right knee replacement (TKR) History of wisdom tooth extraction Status post correction of deviated nasal septum Status post deep brain stimulator placement 2009 @ [facility] Family History Son Family history of reaction to anesthesia nausea/vomiting Family history of diabetes mellitus Son Family history of reaction to anesthesia nausea/vomiting Son Family history of reaction to anesthesia nausea/vomiting Father Family history of diabetes mellitus Mother Family history of diabetes mellitus Family hx of colon cancer Grandmother (Paternal) Family history of diabetes mellitus Social History Smoking Status: Never smoker Second Hand Exposure: No; Hx Alcohol Use: No Hx Substance Use: No Preferred Language: [place] Communication Ability: Effective Operational Test 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 Required: No Beliefs That Will Affect Care: None Current Living Situation: Spouse Feels Safe at Home: Yes Assistive Devices: Glasses Review of Systems Review of Systems: All systems reviewed & are unremarkable except as noted in HPI & below Physical Exam Physical Exam: General: no distress, overweight Head: normocephalic, atraumatic Eyes: conjunctiva non-injected, anicteric ENT: normal inspection external ears, nose, mucous membranes moist Neck: supple, trachea midline Lungs: clear, no respiratory distress, no wheezing/rhonchi/rales CV: distant heart sounds and difficult auscultation, appear regular with ectopy, no JVD, no pretibial edema Abd: normal BS, soft, non-tender Ext: no cyanosis, no calf tenderness; left hand: fingers with contracture, limited ROM left shoulder, limited ROM legs, bilateral ankles with deformity, sensation to light touch intact distally Neuro: A&O x 3, masked faces, somewhat flat affect Skin: warm, dry Results & Data Results & Data ([facility]) Vital Signs (Past 12 Hours) Vital Signs Temp Pulse Pulse Resp BP BP Pulse Ox 11/01/20 17:39 81 20 149/95 H 96 11/01/20 17:00 85 23 149/95 H 94 11/01/20 16:00 75 21 138/69 97 11/01/20 15:03 83 83 20 139/73 96 11/01/20 15:01 83 16 96 11/01/20 14:00 85 22 158/91 H 95 11/01/20 13:02 37.0 C 84 84 20 151/77 H 151/77 H 94 11/01/20 13:00 84 22 157/87 H 95 Laboratory Results Short CBC 11/01/20 Range/Units 13:58 WBC 8.42 (4.8-10.8) K/uL Hgb 12.2 (12.0-16.0) g/dL Hct 37.9 (37-47) % Plt Count 295 (130-400) K/uL BMP 11/01/20 13:58 Sodium 140 Potassium 4.0 Chloride 108 H Carbon Dioxide 26 BUN 17 Creatinine 0.61 Glucose 97 Calcium 9.3 Cardiac Enzymes 11/01/20 Range/Units 13:58 Troponin I < 0.015 (0-0.045) ng/ml Liver Function 11/01/20 Range/Units 13:58 Total Bilirubin 0.7 (0.2-1) mg/dl AST 12 L (15-37) U/L ALT 11 L (12-78) U/L Alkaline Phosphatase 93 (45-117) U/L Albumin 3.7 (3.4-5.0) gm/dl Urine 11/01/20 Range/Units Unknown Urine Color Yellow Urine Appearance Cloudy A (Clear) Urine pH 8.5 H (4.5-7.5) Ur Specific [place] 1.020 (1.000-1.030) Urine Protein 3+ H (Negative) Urine Glucose (UA) Negative (Negative) Diagnostic Findings Shoulder X-Ray 11/01/20 13:51 LEFT SHOULDER 4 VIEWS HISTORY: Left shoulder pain COMPARISON: Left shoulder radiograph 08/06/2018. FINDINGS: Postoperative changes again noted consistent with a prior reverse left total shoulder arthroplasty. The hardware appears intact. No abnormal periprosthetic lucency. No fracture or dislocation. The left clavicle is intact. Soft tissues are unremarkable. IMPRESSION: No acute fracture or dislocation of the left shoulder. Prior left total shoulder arthroplasty. ACT 112: Negative or not required by law. Electronically signed by: Alfonzo Sparrow M.D. 11/01/2020 2:31 PM Chest X-Ray 11/01/20 13:53 XR chest 1V portable HISTORY: weakness COMPARISON: Chest 05/15/2016. FINDINGS: Cardiac silhouette remains mildly enlarged. No focal lung consolidations to suggest pneumonia. No pleural effusions. No pneumothorax. There is a left shoulder prosthesis. IMPRESSION: No acute process. ACT 112: Negative or not required by law. Electronically signed by: Alfonzo Sparrow M.D. 11/01/2020 2:30 PM Code Status & VTE Plan VTE Prophylaxis Plan VTE Prophylaxis will be ordered: Yes Supervising Physician Co-Signing Physician Notes Patient is a 75-year-old female with history of hypertension, hypothyroidism, recurrent UTIs, recurrent falls, Parkinson's disease and other medical problems presents to ER for evaluation of hematuria. She also states having left shoulder pain. Patient is a poor historian. Please review HPI for complete details of presentation. On exam patient is moderately built and nourished, no apparent distress, normocephalic atraumatic, EOMI, normal breath sounds, clear to auscultation, irregular rhythm, no murmur, no pedal edema, abdomen soft, nontender, normal bowel sounds, alert, awake, oriented, bilateral ankle, left hand deformity noted. Family unable to be contacted for medication reconciliation. Patient is admitted for management of urinary tract infection. Agree with starting on Rocephin. Blood, urine cultures obtained. Patient also might need permanent placement. PT OT, case management consulted. Imaging studies of left shoulder showed no acute fractures. Abnormal EKG noted. Difficult to interpret secondary to abrasion, PVCs. Will repeat EKG. monitor electrolytes and replace as needed. TSH within normal limits. I personally reviewed the record. Patient is interviewed and examined at bedside. Patient's care is coordinated with Marielena Mccord PA-C. Please refer to the documentation above for details of patient's presentation and for discussion of other issues.
[2020-11-01] MEDS ORDERED: SODIUM CHLORIDE 0.9% 1000ML 1,000 ML IV SCH (21:33)
[2020-11-01] MEDS: ACETAMINOPHEN 325 MG TAB PO PRN (22:26)
[2020-11-01] MEDS: EZETIMIBE 10 MG TABLET PO SCH (22:27)
[2020-11-01] MEDS: ENOXAPARIN INJ 40 MG/0.4 ML SYR SQ SCH (22:27)
[2020-11-01] MEDS: CARBIDOPA/LEVODOPA 25/100MG TAB PO SCH (22:27)
[2020-11-01] MEDS: GABAPENTIN 100 MG CAP PO SCH (22:27)
[2020-11-01] MEDS: ZOLPIDEM TARTRATE 5 MG TAB PO PRN (23:32)
[2020-11-02 03:22] LABS: Hematocrit (blood only) 35.9 % (37-47); Hemoglobin 11.5 g/dL (12.0-16.0); Mean Corpuscular Volume 84.3 fL (80-100); Mean Platelet Volume 9.3 fL (7.4-10.4); Platelet Count 255 K/uL (130-400); RDW Coefficient of Variation 14.6 % (11.5-14.5); RDW Standard Deviation 45.3 fL (36.4-46.3); Red Blood Count 4.26 M/uL (4.2-5.4); White Blood Count 5.98 K/uL (4.8-10.8)
[2020-11-02 03:47] LABS: BUN Creatinine Ratio 22.7 (10-20); Blood Urea Nitrogen 14 mg/dl (7-18); Calcium 9.2 mg/dl (8.5-10.1); Carbon Dioxide 29 mmol/L (21-32); Chloride 110 mmol/L (98-107); Creatinine Clr Calc Pharmacy 79.2 ml/min; Est GFR (Non-African American) 88.8 ml/min; Glucose 84 mg/dl (70-99); Magnesium 1.7 mg/dl (1.8-2.4); Potassium 3.2 mmol/L (3.5-5.1); Sodium 142 mmol/L (136-145); Troponin I < 0.015 ng/ml (0-0.045)
[2020-11-02] MEDS ORDERED: POTASSIUM CHLORIDE CRTAB 20 MEQ TABCR PO STA ×2 (04:17→08:19)
[2020-11-02] MEDS ORDERED: MAGNESIUM SULFATE / D5W 1 GM/100 ML BAG IV ONE (04:30)
--- NOTE | 2020-11-02 07:05 | Electrocardiogram Report ---
Test Reason : Blood Pressure : / mmHG Vent. Rate : 080 BPM Atrial Rate : 090 BPM P-R Int : 000 ms QRS Dur : 066 ms QT Int : 344 ms P-R-T Axes : 000 -24 -67 degrees QTc Int : 396 ms Poor data quality, interpretation may be adversely affected Probable Atrial fibrillation with premature ventricular or aberrantly conducted complexes Minimal voltage criteria for LVH, may be normal variant Possible Inferior infarct , age undetermined Anterior infarct , age undetermined Abnormal ECG When compared with ECG of 24-SEP-2015 16:30, Significant artifact is now present Rhythm now appears to be atrial fibrillation PVC is now present Confirmed by Saw Cotto ([id number]) on 11/02/2020 7:05:21 AM Referred By: REFERRED SELF Confirmed By:Saw Cotto
[2020-11-02] MEDS: CARBIDOPA/LEVODOPA 25/100MG TAB PO SCH ×3 (08:18→21:06)
[2020-11-02] MEDS: amLODIPine BESYLATE 5 MG TAB PO SCH (08:19)
[2020-11-02] MEDS: GABAPENTIN 100 MG CAP PO SCH ×2 (08:19→21:07)
[2020-11-02] MEDS: PANTOprazole 40 MG TAB PO SCH (08:19)
[2020-11-02] MEDS: ISOSORBIDE MONO EXTENDED REL 30 MG TABCR PO SCH (08:19)
[2020-11-02] MEDS: LIDOCAINE 5% 1 PATCH TD SCH (08:20)
--- NOTE | 2020-11-02 12:15 | Hospitalist Progress Note ---
Date of Service November 02, 2020 Assessment & Plan (1) UTI (urinary tract infection): Pt is 75 y/o F with PMH HTN, dyslipidemia, hypothyroidism, anemia, recurrent UTI, recurrent falls, Parkinson, insomnia, GERD, spinal stenosis, chronic back pain, CKD III and others listed below presented to ER for complaint of hematuria, foul smelling urine. H/O UTI 09/22/2020, treated at [facility] with Rocephin x3 days and discharged on Ceftin, urine culture pansensitive E. coli In ER patient was afebrile, vitals stable, BUN: 17, Cr: 0.61 UA:3+bacteria, >30 WBC, 3+leukocyte esterase, 2+ blood. Was given Rocephin 2GM IV Urine culture is growing gram-negative bacilli awaiting sensitivity Continue Rocephin IV Hold chronic nitrofurantoin Denies any symptoms (2) Ambulatory dysfunction: (3) Parkinson disease: History of Parkinson's. Previously followed with Dr. Fields. Patient was [place] [facility] [place] not follow-up. Says that she remains in bed most of the time and cannot do much for herself Reports baseline uses wheelchair and wheeled walker Continue carbidopa/levodopa PT/OT eval and likely to need rehab Will talk to the family members when they are here or over phone (4) Hypertension: Continue amlodipine (5) Shoulder pain: C/O Left shoulder pain. H/O frozen shoulder, arthroplasty Xray Shoulder: no acute changes lidocaine patch prn (6) Abnormal EKG: EKG: very poor tracing making interpretation difficult. appears sinus rhythm with PVC Initial Troponin negative. Denies CP, SOB Trend troponin-negative Repeat EKG in am-abnormal EKG due to Parkinson's disease (7) Hyperlipidemia: Patient denied statin use in past Continue ezetimibe (8) Hypothyroidism: TSH: 1.4 Does not appear that patient has been taking levothyroxine. Last prescribed 11/2019 (9) CKD (chronic kidney disease), stage III: Cr: 0.6. ~Baseline 0.8 Monitor renal functions, avoid nephrotoxic agents when possible (10) GERD (gastroesophageal reflux disease): Continue PPI (11) Chronic back pain: Continue gabapentin, baclofen DVT Prophylaxis -Lovenox SQ Full Code as per discussion with pt Follows with Dr Robles for routine care Admission and Anticipated Discharge Date Admission Date: November 01, 2020 Subjective 11/02/2020 The patient was seen and examined in medical telemetry unit She has significant Parkinson's disease and has been almost bedbound at home She has had UTI 1 22 September and was treated with Rocephin and Ceftin She was brought in with hematuria and foul-smelling urine and noted to have another UTI Complaints of weakness and some nonspecific pain in the feet and hands Review of Systems Review of Systems: All systems reviewed and are unremarkable except as noted below Musculoskeletal: + joint pain (Bilateral foot pain and pain in left upper extremity) No acute arthritis in any of the joint. Has some flexural deformity involving the ankles with stiffness of the joints Physical Exam Physical Exam: Lying in bed comfortably Constitutional: well developed, well nourished, + ill appearing and + obese Eyes: PERRL, conjunctivae normal, anicteric sclerae ENMT: external ear and nose normal, oropharynx normal Neck: trachea midline, no thyromegaly Respiratory: no respiratory distress Auscultation: lungs clear to auscultation bilaterally Cardiovascular: Rate/Rhythm: regular rate and regular rhythm Heart Sounds: no murmur Extremities: + edema (Trace edema bilaterally) Gastrointestinal (Abdomen): Inspection/Auscultation: normal bowel sounds; abdomen not distended Percussion/Palpation: abdomen soft; abdomen nontender Musculoskeletal: Ankle: + ankle abnormal to inspection (Bilateral flexural deformities of the ankle with stiffness and pain on move) No acute arthritis in any other joints Neurologic: Alert, awake and oriented x3. Generally weak but no focal neuro deficit Lymphatic: no cervical or axillary lymphadenopathy Results & Data Results & Data ([facility]) Vital Signs (Past 12 Hours) Vital Signs Temp Pulse Pulse Resp BP Pulse Ox 11/02/20 11:40 36.5 C 71 20 135/73 97 11/02/20 08:22 36.4 C L 64 18 125/78 97 11/02/20 02:39 36.7 C 65 18 142/72 H 96 11/02/20 01:05 64 Laboratory Results Short CBC 11/01/20 11/02/20 Range/Units 13:58 03:09 WBC 8.42 5.98 (4.8-10.8) K/uL Hgb 12.2 11.5 L (12.0-16.0) g/dL Hct 37.9 35.9 L (37-47) % Plt Count 295 255 (130-400) K/uL BMP 11/01/20 11/02/20 13:58 03:09 Sodium 140 142 Potassium 4.0 3.2 L D Chloride 108 H 110 H Carbon Dioxide 26 29 BUN 17 14 Creatinine 0.61 0.62 Glucose 97 84 Calcium 9.3 9.2 Cardiac Enzymes 11/01/20 11/01/20 11/02/20 Range/Units 13:58 21:41 03:09 Troponin I < 0.015 < 0.015 < 0.015 (0-0.045) ng/ml Liver Function 11/01/20 Range/Units 13:58 Total Bilirubin 0.7 (0.2-1) mg/dl AST 12 L (15-37) U/L ALT 11 L (12-78) U/L Alkaline Phosphatase 93 (45-117) U/L Albumin 3.7 (3.4-5.0) gm/dl Urine 11/01/20 Range/Units Unknown Urine Color Yellow Urine Appearance Cloudy A (Clear) Urine pH 8.5 H (4.5-7.5) Ur Specific [place] 1.020 (1.000-1.030) Urine Protein 3+ H (Negative) Urine Glucose (UA) Negative (Negative) Medications Administered Current Inpatient Medications Acetaminophen (Acetaminophen 325 Mg Tab) 650 mg PO Q4H PRN PRN Reason: Pain or Fever Stop: 12/01/20 21:32 Last Admin: 11/01/20 22:26 Dose: 650 mg Documented by: Albuterol (Albuterol Hfa 8 Gm Inhaler) 1 puffs INH Q4H PRN PRN Reason: Shortness Of Breath Or Wheezin Stop: 12/01/20 21:32 Amlodipine Besylate (Amlodipine Besylate 5 Mg Tab) 10 mg PO QAM MARIBELL Stop: 12/02/20 08:59 Last Admin: 11/02/20 08:19 Dose: 10 mg Documented by: Baclofen (Baclofen 10 Mg Tab) 10 mg PO BID PRN PRN Reason: Spasms Stop: 12/01/20 21:32 Carbidopa/Levodopa (Carbidopa/Levodopa 25/100mg Tab) 1 tab PO TID MARIBELL Stop: 12/01/20 21:32 Last Admin: 11/02/20 08:18 Dose: 1 tab Documented by: Ezetimibe (Ezetimibe 10 Mg Tablet) 10 mg PO HS [facility] Stop: 12/01/20 21:32 Last Admin: 11/01/20 22:27 Dose: 10 mg Documented by: Enoxaparin Sodium (Enoxaparin Inj 40 Mg/0.4 Ml Syr) 40 mg SQ Q24H [facility] Stop: 12/01/20 21:59 Last Admin: 11/01/20 22:27 Dose: 40 mg Documented by: Gabapentin (Gabapentin 100 Mg Cap) 100 mg PO BID [facility] Stop: 12/01/20 21:32 Last Admin: 11/02/20 08:19 Dose: 100 mg Documented by: Ceftriaxone Sodium 2,000 mg/ (Dextrose) 50 mls @ 100 mls/hr IV Q24H [facility]; Protocol Stop: 11/06/20 17:59 Isosorbide Mononitrate (Isosorbide [place] Extended Rel 30 Mg Tabcr) 30 mg PO [facility] Stop: 12/02/20 08:59 Last Admin: 11/02/20 08:19 Dose: 30 mg Documented by: Lidocaine (Lidocaine 5% 1 Patch) [facility] [place] [facility] Stop: 12/02/20 08:59 Last Admin: 11/02/20 08:20 Dose: 1 patch Documented by: Miscellaneous (Toviaz - Order Awaiting Action) 1 ea N/A QS [facility] Stop: 12/02/20 00:00 Last Admin: 11/02/20 08:18 Dose: Not Given Documented by: Miscellaneous (Remove Lidoderm Patch) 1 ea N/A DAILY@2100 [facility] Stop: 12/01/20 21:32 Last Admin: 11/01/20 22:27 Dose: 1 ea Documented by: Pantoprazole Sodium (Pantoprazole 40 Mg Tab) 40 mg PO QAM [facility] Stop: 12/02/20 08:59 Last Admin: 11/02/20 08:19 Dose: 40 mg Documented by: Polyethylene Glycol (Polyethylene (Miralax) 17 Gm Pack) 17 gm PO DAILY PRN PRN Reason: Constipation Stop: 12/01/20 21:32 Zolpidem Tartrate (Zolpidem Tartrate 5 Mg Tab) 5 mg PO HS PRN PRN Reason: Sleep Stop: 12/01/20 22:59 Last Admin: 11/01/20 23:32 Dose: 5 mg Documented by:
[2020-11-02] MEDS: ACETAMINOPHEN 325 MG TAB PO PRN (13:20)
[2020-11-02] MEDS: traMADol HCL 50 MG TABLET PO PRN ×2 (16:42→21:09)
[2020-11-02] MEDS ORDERED: cefTRIAXone SODIUM 2,000 MG in DEXTROSE 5% 50 ML IV SCH (18:00)
[2020-11-02] MEDS: EZETIMIBE 10 MG TABLET PO SCH (21:07)
[2020-11-02] MEDS: ENOXAPARIN INJ 40 MG/0.4 ML SYR SQ SCH (21:08)
[2020-11-02] MEDS: ZOLPIDEM TARTRATE 5 MG TAB PO PRN (21:09)
[2020-11-02] MEDS: BACLOFEN 10 MG TAB PO PRN (21:09)
--- NOTE | 2020-11-02 22:49 | Electrocardiogram Report ---
Test Reason : Blood Pressure : / mmHG Vent. Rate : 079 BPM Atrial Rate : 079 BPM P-R Int : 188 ms QRS Dur : 062 ms QT Int : 362 ms P-R-T Axes : 009 -21 -69 degrees QTc Int : 415 ms Poor data quality, interpretation may be adversely affected Sinus rhythm with Premature supraventricular complexes Minimal voltage criteria for LVH, may be normal variant Possible Inferior infarct (cited on or before 01-NOV-2020) Anterior infarct (cited on or before 01-NOV-2020) Abnormal ECG When compared with ECG of 01-NOV-2020 15:17, Premature supraventricular complexes are now Present Premature ventricular complexes are no longer Present Confirmed by Saw Cotto ([id number]) on 11/02/2020 10:49:12 PM Referred By: REFERRED SELF Confirmed By:Saw Cotto
--- NOTE | 2020-11-03 06:10 | Electrocardiogram Report ---
Test Reason : Blood Pressure : / mmHG Vent. Rate : 077 BPM Atrial Rate : 070 BPM P-R Int : 000 ms QRS Dur : 070 ms QT Int : 354 ms P-R-T Axes : 000 -13 -27 degrees QTc Int : 400 ms Poor data quality, interpretation may be adversely affected Probable Sinus rhythm with frequent Premature atrial complexes Cannot rule out Inferior infarct Possible Anterior infarct Abnormal ECG When compared with ECG of 01-NOV-2020 18:50, No significant change Confirmed by Saw Cotto ([id number]) on 11/03/2020 6:10:06 AM Referred By: REFERRED SELF Confirmed By:Saw Cotto
[2020-11-03] MEDS: traMADol HCL 50 MG TABLET PO PRN ×3 (08:12→18:27)
[2020-11-03] MEDS: amLODIPine BESYLATE 5 MG TAB PO SCH (08:13)
[2020-11-03] MEDS: LIDOCAINE 5% 1 PATCH TD SCH (08:14)
[2020-11-03] MEDS: PANTOprazole 40 MG TAB PO SCH (08:14)
[2020-11-03] MEDS: ISOSORBIDE MONO EXTENDED REL 30 MG TABCR PO SCH (08:14)
[2020-11-03] MEDS: CARBIDOPA/LEVODOPA 25/100MG TAB PO SCH ×2 (08:14→13:47)
[2020-11-03] MEDS: GABAPENTIN 100 MG CAP PO SCH (08:14)
[2020-11-03] MEDS: POLYETHYLENE (MIRALAX) 17 GM PACK PO PRN (08:20)
[2020-11-03] MEDS: CIPROFLOXACIN / D5W 400 MG/200 ML BAG IV SCH (10:18)
[2020-11-03] MEDS: BACLOFEN 10 MG TAB PO PRN (13:49)
--- NOTE | 2020-11-03 14:23 | Hospitalist Progress Note ---
Date of Service November 03, 2020 Assessment & Plan (1) UTI (urinary tract infection): Pt is 75 y/o F with PMH HTN, dyslipidemia, hypothyroidism, anemia, recurrent UTI, recurrent falls, Parkinson, insomnia, GERD, spinal stenosis, chronic back pain, CKD III and others listed below presented to ER for complaint of hematuria, foul smelling urine. H/O UTI 09/22/2020, treated at [facility] with Rocephin x3 days and discharged on Ceftin, urine culture pansensitive E. coli In ER patient was afebrile, vitals stable, BUN: 17, Cr: 0.61 UA:3+bacteria, >30 WBC, 3+leukocyte esterase, 2+ blood. Was given Rocephin 2GM IV Urine culture is growing Cipro back to her formulary and probable Enterococcus. Awaiting sensitivity for Enterococcus Hold chronic nitrofurantoin Ceftriaxone has been changed to intravenous ciprofloxacin Awaiting further sensitivity (2) Ambulatory dysfunction: (3) Parkinson disease: History of Parkinson's. Previously followed with Dr. Fields. Patient was referred [place] [facility] [place] not follow-up. Says that she remains in bed most of the time and cannot do much for herself Reports baseline uses wheelchair and wheeled walker Continue carbidopa/levodopa PT/OT eval and likely to need rehab Will talk to the family members when they are here or over phone (4) Hypertension: Continue amlodipine (5) Shoulder pain: C/O Left shoulder pain. H/O frozen shoulder, arthroplasty Xray Shoulder: no acute changes lidocaine patch prn Bilateral foot pain Has stiffness with flexion or deformity of the ankle Awaiting orthotics for the leg and foot Will try pain medications as needed (6) Abnormal EKG: EKG: very poor tracing making interpretation difficult. appears sinus rhy thm with PVC Initial Troponin negative. Denies CP, SOB Trend troponin-negative Repeat EKG in am-abnormal EKG due to Parkinson's disease (7) Hyperlipidemia: Patient denied statin use in past Continue ezetimibe (8) Hypothyroidism: TSH: 1.4 Does not appear that patient has been taking levothyroxine. Last prescribed 11/2019 (9) CKD (chronic kidney disease), stage III: Cr: 0.6. ~Baseline 0.8 Monitor renal functions, avoid nephrotoxic agents when possible (10) GERD (gastroesophageal reflux disease): Continue PPI (11) Chronic back pain: Continue gabapentin, baclofen DVT Prophylaxis -Lovenox SQ Full Code as per discussion with pt Follows with Dr Robles for routine care Admission and Anticipated Discharge Date Admission Date: November 01, 2020 Subjective 11/02/2020 The patient was seen and examined in medical telemetry unit She has significant Parkinson's disease and has been almost bedbound at home She has had UTI August and was treated with Rocephin and Ceftin She was brought in with hematuria and foul-smelling urine and noted to have another UTI Complaints of weakness and some nonspecific pain in the feet and hands 11/03/2020 The patient was seen and examined in medical telemetry unit She complains to have some pain in the legs and feet Denies any dysuria, fever and no chills Review of Systems Review of Systems: All systems reviewed and are unremarkable except as noted below Musculoskeletal: + joint pain (Bilateral foot pain and pain in left upper extremity) No acute arthritis in any of the joint. Has some flexural deformity involving the ankles with stiffness of the joints Physical Exam Physical Exam: Lying in bed comfortably Constitutional: well developed, well nourished, + ill appearing and + obese Eyes: PERRL, conjunctivae normal, anicteric sclerae ENMT: external ear and nose normal, oropharynx normal Neck: trachea midline, no thyromegaly Respiratory: no respiratory distress Auscultation: lungs clear to auscultation bilaterally Cardiovascular: Rate/Rhythm: regular rate and regular rhythm Heart Sounds: no murmur Extremities: + edema (Trace edema bilaterally) Gastrointestinal (Abdomen): Inspection/Auscultation: normal bowel sounds; abdomen not distended Percussion/Palpation: abdomen soft; abdomen nontender Musculoskeletal: Ankle: + ankle abnormal to inspection (Bilateral flexural deformities of the ankle with stiffness and pain on move) Neurologic: Alert, awake and oriented x3. Lymphatic: no cervical or axillary lymphadenopathy Results & Data Results & Data ([facility]) Vital Signs (Past 12 Hours) Vital Signs Temp Pulse Pulse Resp BP Pulse Ox 11/03/20 11:55 64 11/03/20 10:46 36.6 C 74 20 116/67 95 11/03/20 07:38 36.6 C 72 18 132/76 95 11/03/20 03:21 36.5 C 56 L 18 120/68 95 Medications Administered Current Inpatient Medications Acetaminophen (Acetaminophen 325 Mg Tab) 650 mg PO Q4H PRN PRN Reason: Pain or Fever Stop: 12/01/20 21:32 Last Admin: 11/02/20 13:20 Dose: 650 mg Documented by: Albuterol (Albuterol Hfa 8 Gm Inhaler) 1 puffs INH Q4H PRN PRN Reason: Shortness Of Breath Or Wheezin Stop: 12/01/20 21:32 Amlodipine Besylate (Amlodipine Besylate 5 Mg Tab) 10 mg PO QAM [facility] Stop: 12/02/20 08:59 Last Admin: 11/03/20 08:13 Dose: 10 mg Documented by: Baclofen (Baclofen 10 Mg Tab) 10 mg PO BID PRN PRN Reason: Spasms Stop: 12/01/20 21:32 Last Admin: 11/03/20 13:49 Dose: 10 mg Documented by: Carbidopa/Levodopa (Carbidopa/Levodopa 25/100mg Tab) 1 tab PO TID [facility] Stop: 12/01/20 21:32 Last Admin: 11/03/20 13:47 Dose: 1 tab Documented by: Ezetimibe (Ezetimibe 10 Mg Tablet) 10 mg PO HS [facility] Stop: 12/01/20 21:32 Last Admin: 11/02/20 21:07 Dose: 10 mg Documented by: Enoxaparin Sodium (Enoxaparin Inj 40 Mg/0.4 Ml Syr) 40 mg SQ Q24H [facility] Stop: 12/01/20 21:59 Last Admin: 11/02/20 21:08 Dose: 40 mg Documented by: Gabapentin (Gabapentin 100 Mg Cap) 100 mg PO BID [facility] Stop: 12/01/20 21:32 Last Admin: 11/03/20 08:14 Dose: 100 mg Documented by: Ciprofloxacin (Cipro / D5w) 400 mg in 200 mls @ 100 mls/hr IV Q12 [facility]; Protocol Stop: 11/13/20 09:29 Last Infusion: 11/03/20 13:47 Dose: Infused Documented by: Isosorbide Mononitrate (Isosorbide Rincon Extended Rel 30 Mg Tabcr) 30 mg PO QAM [facility] Stop: 12/02/20 08:59 Last Admin: 11/03/20 08:14 Dose: 30 mg Documented by: Lidocaine (Lidocaine 5% 1 Patch) 1 patch TD QAM [facility] Stop: 12/02/20 08:59 Last Admin: 11/03/20 08:14 Dose: 1 patch Documented by: Miscellaneous (Toviaz - Order Awaiting Action) 1 ea N/A QS [facility] Stop: 12/02/20 00:00 Last Admin: 11/03/20 08:11 Dose: Not Given Documented by: Miscellaneous (Remove Lidoderm Patch) 1 ea N/A DAILY@2100 [facility] Stop: 12/01/20 21:32 Last Admin: 11/02/20 21:07 Dose: 1 ea Documented by: Pantoprazole Sodium (Pantoprazole 40 Mg Tab) 40 mg PO QAM [facility] Stop: 12/02/20 08:59 Last Admin: 11/03/20 08:14 Dose: 40 mg Documented by: Polyethylene Glycol (Polyethylene (Miralax) 17 Gm Pack) 17 gm PO DAILY PRN PRN Reason: Constipation Stop: 12/01/20 21:32 Last Admin: 11/03/20 08:20 Dose: 17 gm Documented by: Tramadol HCl (Tramadol Hcl 50 Mg Tablet) 50 mg PO Q4H PRN PRN Reason: Pain Stop: 12/02/20 15:27 Last Admin: 11/03/20 13:47 Dose: 50 mg Documented by: Zolpidem Tartrate (Zolpidem Tartrate 5 Mg Tab) 5 mg PO HS PRN PRN Reason: Sleep Stop: 12/01/20 22:59 Last Admin: 11/02/20 21:09 Dose: 5 mg Documented by:
[2020-11-03] MEDS: ACETAMINOPHEN 325 MG TAB PO PRN (19:49)
[2020-11-03] MEDS: ALBUTEROL HFA 8 GM INHALER INH PRN (19:52)
[2020-11-03] MEDS ORDERED: HYDROmorphone INJ 0.5 MG/0.5 ML SYR IV STA (20:39)
--- NOTE | 2020-11-03 21:54 | CT Scan Report ---
CT head/brain wo con CLINICAL HISTORY: 75 years-old Female with questionable left sided numbness. Acute strokelike sympto ms TECHNIQUE: Multiple axial CT images of the head were obtained without contrast. A dose lowering tech nique was utilized adhering to the principles of ALARA. CT DOSE: 614.27 mGy.cm COMPARISON: CTA head neck of same day, head CT 05/15/2016 FINDINGS: No acute intracranial hemorrhage, midline shift, intra-axial mass, hydrocephalus, territorial ischemi a or abnormal extra-axial collection. Unchanged 1.4 cm calcified meningioma adjacent to the petrous a pex. Mildly motion degraded exam. White matter hypodensities suggestive of chronic microvascular isch emic disease. Postoperative changes of the mandible. No acute calvarial fracture. Prior bilateral lens repair. The paranasal sinuses, mastoid air cells, and middle ear cavities are clear. IMPRESSION: No acute intracranial abnormality. ACT 112: Negative or not required by law. The above report was generated using voice recognition software. It may contain grammatical, syntax o r spelling errors. Electronically signed by: Ney Khan M.D. 11/03/2020 9:52 PM
[2020-11-03] MEDS ORDERED: ASPIRIN CHEW 324 MG PO STA (22:18)
[2020-11-03] MEDS ORDERED: SODIUM CHLORIDE 0.9% 500 ML IV SCH (22:30)
[2020-11-03] MEDS ORDERED: ATORVASTATIN 40 MG TAB PO STA (22:52)
[2020-11-03 23:18] LABS: Basophils # (auto) 0.02 K/uL (0-0.2); Basophils % (auto) 0.2 %; Eosinophils # (auto) 0.15 K/uL (0-0.5); Eosinophils % (auto) 1.9 %; Hematocrit (blood only) 37.3 % (37-47); Immature Granulocytes # (auto) 0.02 K/uL (0.00-0.02); Immature Granulocytes % (auto) 0.2 %; Lymphocytes # (auto) 2.33 K/uL (1.2-3.4); Lymphocytes % (auto) 28.9 %; Mean Corpuscular Hemoglobin 27.5 pg (25-34); Mean Corpuscular Hgb Conc 32.2 g/dL (32-36); Mean Corpuscular Volume 85.6 fL (80-100); Mean Platelet Volume 9.4 fL (7.4-10.4); Monocytes # (auto) 0.81 K/uL (0.11-0.59); Monocytes % (auto) 10.1 %; Neutrophils # (auto) 4.72 K/uL (1.4-6.5); Neutrophils % (auto) 58.7 %; Platelet Count 288 K/uL (130-400); RDW Coefficient of Variation 14.6 % (11.5-14.5); RDW Standard Deviation 46.2 fL (36.4-46.3); Red Blood Count 4.36 M/uL (4.2-5.4); White Blood Count 8.05 K/uL (4.8-10.8)
[2020-11-03] MEDS ORDERED: PHARMACIST DISCHARGE MED REC CONSULT PRN (23:19)
[2020-11-03] MEDS ORDERED: OPTIRAY 320 125ml IV ONE (23:25)
[2020-11-03] MEDS: SODIUM CHLORIDE 0.9% 1000ML 1,000 ML IV SCH (23:30)
--- NOTE | 2020-11-03 23:52 | CT Scan Report ---
CT angio neck with con, CT angio head w con CLINICAL HISTORY: 75 years-old Female with questionable left sided numbness. Acute strokelike symp toms COMPARISON STUDY: Head CT of same day TECHNIQUE: Following the IV administration of 119 mL of Optiray, CT angiogram of the head and neck wa s performed from the aortic arch to the skull apex. Images are reviewed in the axial, sagittal, and c oronal planes. 3-D MIPS images are created and assessed. IV contrast was administered without complic ation. All measurements were calculated based on NASCET criteria. A dose lowering technique was util ized adhering to the principles of ALARA. CT DOSE: 552.91 mGy.cm FINDINGS: Streak artifact from left shoulder arthroplasty. Moderate atherosclerosis of the thoracic aorta. The innominate and imaged subclavian arteries are patent. The common and internal carotid arteries are pa tent. Tortuosity of the distal cervical segments of the internal carotid arteries. Calcified plaque o f the cavernous, clinoid and supraclinoid segments. The middle and anterior cerebral arteries are pat ent. Codominant and patent basilar arteries. There is mild luminal narrowing at the origin of the rig ht vertebral artery with atherosclerotic plaque. Diminutive basilar artery. origin of the poste rior cerebral arteries which are widely patent. No aneurysm, dissection, high-grade stenosis or arter ial occlusion. Cerebral vascular calcifications. No abnormal intracranial enhancement. No pneumothorax. Cervical spinal fusion hardware. Degenerative changes of the cervical spine. Prior b ilateral lens repair. Fixation hardware of the mandible. IMPRESSION:Unremarkable CTA of the head and neck. ACT 112: Negative or not required by law. The above report was generated using voice recognition software. It may contain grammatical, syntax o r spelling errors. Electronically signed by: Ney Khan M.D. 11/03/2020 11:50 PM
[2020-11-03 23:57] LABS: Albumin Globulin Ratio 1.1 (0.9-2); Albumin Level 3.6 gm/dl (3.4-5.0); BUN Creatinine Ratio 13.2 (10-20); Bilirubin,Total 0.5 mg/dl (0.2-1); Calcium 9.2 mg/dl (8.5-10.1); Creatinine Clr Calc Pharmacy 68.8 ml/min; Est GFR (African American) 98.9 ml/min; Est GFR (Non-African American) 85.4 ml/min; Globulin 3.3 gm/dl (2.5-4.0); Magnesium 1.6 mg/dl (1.8-2.4); Potassium 3.8 mmol/L (3.5-5.1); Total Protein 6.9 gm/dl (6.4-8.2)
[2020-11-04] MEDS: CIPROFLOXACIN / D5W 400 MG/200 ML BAG IV SCH ×3 (00:08→19:51)
[2020-11-04] MEDS: ENOXAPARIN INJ 40 MG/0.4 ML SYR SQ SCH ×2 (00:08→22:02)
[2020-11-04] MEDS ORDERED: ASPIRIN 300 MG SUPP PR ONE (00:14)
[2020-11-04] MEDS: GABAPENTIN 100 MG CAP PO SCH ×3 (00:18→19:52)
[2020-11-04] MEDS: EZETIMIBE 10 MG TABLET PO SCH ×2 (00:18→19:52)
[2020-11-04] MEDS: CARBIDOPA/LEVODOPA 25/100MG TAB PO SCH ×4 (00:18→19:51)
[2020-11-04] MEDS ORDERED: HYDROmorphone INJ 0.5 MG/0.5 ML SYR IV PRN (00:56)
[2020-11-04] MEDS ORDERED: HYDROmorphone INJ 0.5 MG/0.5 ML SYR IV STA (00:56)
--- NOTE | 2020-11-04 07:01 | Hospitalist Progress Note ---
Date of Service November 04, 2020 Assessment & Plan Admission and Anticipated Discharge Date Admission Date: November 01, 2020 Subjective Last night patient complained about numbness in left side of the body with pain. patient says it started around 6:30pm. But last well known was around 7:30pm. Initially she complained of sob and after inhalers she complained of about numbness in left upper extremity and probably she is having heart attack around 8:15pm. Ekg poor quality. troponin negative. Saw patient at that time she complained of numbness in both left upper and lower extremity and also pain. On passive lifting of left upper extremity she dropped it down but on distraction she was able to hold it up. no facial droop or slurred speech and she was oriented x 4.Baseline has weakness from parkinsons and mostly wheel chair bound.ordered cta head and neck and ct head but it was difficult to get 18 guage iv line and around 9:30pm stroke alert was called. ct head was ok. [facility] neurology examined patient on tele/medicine. Thought possible small lacunar infarct vs parkinsons disease acting up as she didnot get her evening meds yet. As she was boderline timeline for tpa, and also being not sure of her symptoms and benefit vs risk tpa was not given. Recommended to give aspirin and statin and fluids to keep BP elevated. Also to get cta head and neck and mri head. Cta head and neck done and were unremarkable.ordered mri head.full stroke workup with echo, speech evaluation and neurology consult, pt/ot. Continue to monitor. Tried to call son and but phone was not picked up. Will try call again later. Results & Data Results & Data ([facility]) Vital Signs (Past 12 Hours) Vital Signs Temp Pulse Pulse Pulse Resp BP Pulse Ox 11/04/20 02:33 36.7 C 76 18 138/72 93 11/04/20 01:31 84 11/04/20 00:56 36.7 C 85 18 163/74 H 92 11/04/20 00:29 91 H 28 H 171/74 H 96 11/03/20 22:38 85 135/94 94 11/03/20 22:23 82 29 H 140/87 94 11/03/20 22:08 82 29 H 152/70 H 94 11/03/20 21:57 36.6 C 81 31 H 175/72 H 95 11/03/20 19:55 82 20 96 11/03/20 19:26 36.8 C 75 20 145/68 H 96
[2020-11-04 07:20] LABS: Basophils # (auto) 0.03 K/uL (0-0.2); Basophils % (auto) 0.4 %; Eosinophils # (auto) 0.11 K/uL (0-0.5); Eosinophils % (auto) 1.4 %; Hematocrit (blood only) 37.3 % (37-47); Immature Granulocytes # (auto) 0.01 K/uL (0.00-0.02); Immature Granulocytes % (auto) 0.1 %; Lymphocytes # (auto) 2.37 K/uL (1.2-3.4); Lymphocytes % (auto) 30.3 %; Mean Corpuscular Hemoglobin 27.5 pg (25-34); Mean Corpuscular Hgb Conc 32.2 g/dL (32-36); Mean Corpuscular Volume 85.4 fL (80-100); Mean Platelet Volume 9.5 fL (7.4-10.4); Monocytes # (auto) 0.75 K/uL (0.11-0.59); Monocytes % (auto) 9.6 %; Neutrophils # (auto) 4.56 K/uL (1.4-6.5); Neutrophils % (auto) 58.2 %; Platelet Count 277 K/uL (130-400); RDW Coefficient of Variation 14.7 % (11.5-14.5); RDW Standard Deviation 46.3 fL (36.4-46.3); Red Blood Count 4.37 M/uL (4.2-5.4); White Blood Count 7.83 K/uL (4.8-10.8)
[2020-11-04 07:36] LABS: BUN Creatinine Ratio 13.3 (10-20); Calcium 9.1 mg/dl (8.5-10.1); Creatinine Clr Calc Pharmacy 76.5 ml/min; Est GFR (African American) 102.4 ml/min; Est GFR (Non-African American) 88.4 ml/min; Potassium 3.8 mmol/L (3.5-5.1)
[2020-11-04] MEDS: MAGNESIUM SULFATE / D5W 1 GM/100 ML BAG IV SCH ×2 (07:44→09:32)
[2020-11-04 07:46] LABS: Estimated Average Glucose 111 mg/dl; Hemoglobin A1C 5.5 % (4.5-5.6)
[2020-11-04] MEDS: traMADol HCL 50 MG TABLET PO PRN ×3 (07:49→19:30)
[2020-11-04] MEDS: amLODIPine BESYLATE 5 MG TAB PO SCH (09:18)
[2020-11-04] MEDS: ASPIRIN 81 MG ECTAB PO SCH (09:19)
[2020-11-04] MEDS: ISOSORBIDE MONO EXTENDED REL 30 MG TABCR PO SCH (09:19)
[2020-11-04] MEDS: PANTOprazole 40 MG TAB PO SCH (09:20)
[2020-11-04] MEDS: LIDOCAINE 5% 1 PATCH TD SCH (09:20)
--- NOTE | 2020-11-04 10:22 | Electrocardiogram Report ---
Test Reason : Blood Pressure : / mmHG Vent. Rate : 082 BPM Atrial Rate : 094 BPM P-R Int : 000 ms QRS Dur : 088 ms QT Int : 496 ms P-R-T Axes : 000 -16 -43 degrees QTc Int : 579 ms Poor data quality, interpretation may be adversely affected Accelerated Junctional rhythm vs sinus Nonspecific ST abnormality Abnormal ECG Confirmed by Ronny Sampson ([id number]) on 11/04/2020 10:21:57 AM Referred By: REFERRED SELF Confirmed By:Jeromy Sampson
--- NOTE | 2020-11-04 10:26 | Electrocardiogram Report ---
Test Reason : Blood Pressure : / mmHG Vent. Rate : 074 BPM Atrial Rate : 250 BPM P-R Int : 000 ms QRS Dur : 076 ms QT Int : 392 ms P-R-T Axes : 000 -04 -06 degrees QTc Int : 435 ms Poor data quality, interpretation may be adversely affected Accelerated Junctional rhythm vs sinus Nonspecific ST and T wave abnormality Abnormal ECG When compared with ECG of 03-NOV-2020 20:19, (unconfirmed) QT has shortened Confirmed by Ronny Sampson ([id number]) on 11/04/2020 10:26:42 AM Referred By: REFERRED SELF Confirmed By:Jeromy Sampson
[2020-11-04] MEDS: ALBUTEROL HFA 8 GM INHALER INH PRN (10:32)
[2020-11-04] MEDS: SODIUM CHLORIDE 0.9% 1000ML 1,000 ML IV SCH (11:14)
--- NOTE | 2020-11-04 12:36 | Progress Notes ---
SUBJECTIVE: I have been asked to see Mrs. Maxwell because of an episode of left hemianesthesia and possible weakness and dysarthria. 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 She had a DaTscan over a year ago which was negative. 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 The patient has previously not had any response to high doses of levodopa/carbidopa, and she is currently taking levodopa/carbidopa 3 times a day. She also indicates to me that she was diagnosed with CMT. She has contractures at the ankles and the duration of that is unknown to this examiner. On this baseline, apparently the patient fell about a month ago with some fractures. She indicates she went into rehabilitation walking and came out nonambulatory. She was briefly home at the beginning of October at the home of her son and [id number] and was readmitted to the hospital with a urinary tract infection. She indicates last evening she was in her usual state and she noted pain in the left arm and left leg, pain in the left face in V2 and V3, which was atypical for her trigeminal neuralgia. She also noted a change in speech, but not swallowing, no change in vision, and weakness to the left arm and leg, as well as numbness in the face, arm, and legthere was an accompanying r hemicranial headache. Pt has a hx of migraine but never with neurologic accompaniments. These symptoms have persisted. A stroke alert was called; however, it was unclear the nature of her symptoms and no intervention was made other than recommending aspirin and statin and IV fluids to keep her blood pressure elevated. CT of the head, which I reviewed, shows a 1.4 cm calcified meningioma adjacent to the petrous apex, white matter hypodensities consistent with microvascular ischemic disease. CTA of the head unremarkable. There is moderate atherosclerosis of the thoracic aorta. Calcified plaque is noted in the cavernous clinoid and supraclinoid segments. Mild luminal narrowing at the origin of the right vertebral artery. Cerebrovascular calcifications. The patient has no personal history of stroke. She has a strong family history of stroke. She denies a history of atrial fibrillation. PAST MEDICAL HISTORY: Atypical parkinsonism; anemia; chronic back pain; chronic kidney disease; degenerative disk disease; reflux; hearing loss, left ear; left trigeminal neuralgia; hypertension; hypothyroid; migraine; nausea; vomiting; osteoarthritis; recurrent UTIs; spinal stenosis. PAST SURGICAL HISTORY: Appendectomy, bilateral cataracts, bilateral tubal ligation, history of bladder surgery, Botox injections in the bladder, bladder resuspension x2, microvascular decompression of the left trigeminal nerve x2 at [facility], history of colonoscopy, polypectomy, D and C, C-spine fusion, breast biopsy, lumbar diskectomy, mandible surgery, ORIF right ankle, partial hysterectomy, four shoulder surgeries on the left, history of a brain stimulator placement, multiple surgeries on the right arm secondary to dog bite, history of surgery right wrist, tooth extraction, bilateral total knee, wisdom tooth extraction, deviated septum. FAMILY HISTORY: Stroke. SOCIAL HISTORY: Nonsmoker, nondrinker. The patient lives with her . ALLERGIES: BEE VENOM, SHELLFISH, SULFA. HOME MEDICATIONS: Toviaz, acetaminophen, amlodipine, carbidopa/levodopa 25/100 t.i.d., iron, nitrofurantoin, omeprazole, potassium, albuterol, Myacid, baclofen, ____, gabapentin, isosorbide, Lactaid, lidocaine cream and zolpidem. OBJECTIVE: The patient is awake and alert, and oriented x3, without right/left confusion or aphasia. There are no carotid bruits, no heart murmurs. There is a systolic murmur heard best over the aortic area. Pupils are postsurgical. Optic nerves are difficult to visualize. Normal motility without nystagmus including up and down gaze. Speech is dysarthric, mildly nasal. Tongue is midline. No atrophy is noted. There is mild flattening of the left nasolabial fold. There is decreased sensation in left V2 and V3. Motor examination, the patient has contractures at both ankles. There is a contracture of the left wrist post a fracture. There is no resting tremor. There is diffuse rigidity without clear cogwheel rigidity. Her strength in the uppers is antigravity. Due to the contracture of the left wrist, she is unable to extend at the wrist or at the fingers. Lower extremity strength proximally is at least antigravity. There is minimal activation of the tibialis anterior and gastrocs. Reflexes are mildly diffusely brisk. There are no crossed adductors and toes are mute. There is decreased light touch and temperature, left V1, V2, V3. No asymmetric sensory loss in the lowers. Cerebellar function within the limits of testing and rigidity in the uppers shows no significant dystaxia in the right upper extremity. Left upper extremity with its contraction is difficult to test. [id number] is not able to be accomplished secondary to the patient's rigidity and gait was not testable. IMPRESSION AND PLAN: 1. Akinetic rigid parkinsonism. Continue levodopa/carbidopa. Higher doses were not effective, but were tolerated. The patient has seen movement disorder clinic, but via telemedicine. She needs to be referred to a tertiary care center for an evaluation. 2. Possible transient ischemic attack vs, complicated migraine (doubt). The patient appears to have a mild flattening of the left nasolabial fold and decreased sensation in the left face. No asymmetric weakness in the lowers is noted. Plan, MRI brain, further vascular workup, echocardiography depending on the results of the aforementioned. Agree with antiplatelet therapy and statin therapy. Will follow with you. Job ID: [id number]
--- NOTE | 2020-11-04 13:25 | Hospitalist Progress Note ---
Date of Service November 04, 2020 Assessment & Plan (1) UTI (urinary tract infection): Pt is 75 y/o F with PMH HTN, dyslipidemia, hypothyroidism, anemia, recurrent UTI, recurrent falls, Parkinson, insomnia, GERD, spinal stenosis, chronic back pain, CKD III and others listed below presented to ER for complaint of hematuria, foul smelling urine. H/O UTI 09/22/2020, treated at [facility] with Rocephin x3 days and discharged on Ceftin, urine culture pansensitive E. coli In ER patient was afebrile, vitals stable, BUN: 17, Cr: 0.61 UA:3+bacteria, >30 WBC, 3+leukocyte esterase, 2+ blood. Was given Rocephin 2GM IV Urine culture is growing Cipro back to her formulary and probable Enterococcus. Awaiting sensitivity for Enterococcus Hold chronic nitrofurantoin Ceftriaxone has been changed to intravenous ciprofloxacin Awaiting further sensitivity Symptomatically much better-we will continue intravenous ciprofloxacin for now EKG did not show any increase in QT (2) TIA (transient ischemic attack): Possible ischemic attack last night Apparent imaging studies with CT of the head, CTA of the head and neck are unremarkable Echo and MRI has been pending Appreciate neurology input and recommendation We will continue with current treatment (3) Ambulatory dysfunction: (4) Parkinson disease: History of Parkinson's. Previously followed with Dr. Fields. Patient was referred to movement disorder clinic at [facility] however did not follow-up. Says that she remains in bed most of the time and cannot do much for herself Reports baseline uses wheelchair and wheeled walker Continue carbidopa/levodopa PT/OT eval and likely to need rehab Has a kinetic parkinsonism As per neurology and likely to need a tertiary care center evaluation for this For now we will continue PT and OT and possible placement (5) Hypertension: Continue amlodipine (6) Shoulder pain: C/O Left shoulder pain. H/O frozen shoulder, arthroplasty Xray Shoulder: no acute changes lidocaine patch prn Bilateral foot pain Has stiffness with flexion or deformity of the ankle Awaiting orthotics for the leg and foot Will try pain medications as needed Left wrist pain Left hand is in a fist and she does not want to open it as she thinks her wrist is broken We will get an x-ray (7) Abnormal EKG: EKG: very poor tracing making interpretation difficult. appears sinus rhythm with PVC Initial Troponin negative. Denies CP, SOB Trend troponin-negative Repeat EKG in am-abnormal EKG due to Parkinson's disease (8) Hyperlipidemia: Patient denied statin use in past Continue ezetimibe (9) Hypothyroidism: TSH: 1.4 Does not appear that patient has been taking levothyroxine. Last prescribed 11/2019 (10) CKD (chronic kidney disease), stage III: Cr: 0.6. ~Baseline 0.8 Monitor renal functions, avoid nephrotoxic agents when possible (11) GERD (gastroesophageal reflux disease): Continue PPI (12) Chronic back pain: Continue gabapentin, baclofen DVT Prophylaxis -Lovenox SQ Full Code as per discussion with pt Follows with Dr Robles for routine care Admission and Anticipated Discharge Date Admission Date: November 01, 2020 Subjective 11/02/2020 The patient was seen and examined in medical telemetry unit She has significant Parkinson's disease and has been almost bedbound at home She has had UTI August and was treated with Rocephin and Ceftin She was brought in with hematuria and foul-smelling urine and noted to have another UTI Complaints of weakness and some nonspecific pain in the feet and hands 11/03/2020 The patient was seen and examined in medical telemetry unit She complains to have some pain in the legs and feet Denies any dysuria, fever and no chills 11/04/2020 The patient was seen and examined in medical telemetry unit She has nonspecific complaints involving pain more or less all over the body and all the joints Complains today of numbness in left upper extremity and inability to open the fist on the left side Denies any chest pain, palpitation or shortness of breath Denies any headache and blurred vision Review of Systems Review of Systems: All systems reviewed and are unremarkable except as noted below Musculoskeletal: + joint pain (Bilateral foot pain and pain in left upper extremity) No acute arthritis in any of the joint. Has some flexural deformity involving the ankles with stiffness of the joints Physical Exam Physical Exam: Lying in bed comfortably Constitutional: well developed, well nourished, + ill appearing and + obese Eyes: PERRL, conjunctivae normal, anicteric sclerae ENMT: external ear and nose normal, oropharynx normal Neck: trachea midline, no thyromegaly Respiratory: no respiratory distress Auscultation: lungs clear to auscultation bilaterally Cardiovascular: Rate/Rhythm: regular rate and regular rhythm Heart Sounds: no murmur Extremities: + edema (Trace edema bilaterally) Gastrointestinal (Abdomen): Inspection/Auscultation: normal bowel sounds; abdomen not distended Percussion/Palpation: abdomen soft; abdomen nontender Musculoskeletal: Ankle: + ankle abnormal to inspection (Bilateral flexural deformities of the ankle with stiffness and pain on move) Left hand is in a fist position and she does not want to open it Neurologic: Alert and awake. Pleasantly confused. Has stiffness involving joints with flexural deformities of the ankles Lymphatic: no cervical or axillary lymphadenopathy Results & Data Results & Data ([facility]) Vital Signs (Past 12 Hours) Vital Signs Temp Pulse Pulse Resp BP Pulse Ox 11/04/20 11:40 36.7 C 73 18 154/82 H 94 11/04/20 10:46 65 11/04/20 10:32 72 18 94 11/04/20 08:00 36.5 C 69 20 171/81 H 93 11/04/20 02:33 36.7 C 76 18 138/72 93 11/04/20 01:31 84 Laboratory Results Short CBC 11/03/20 11/04/20 Range/Units 23:04 07:10 WBC 8.05 7.83 (4.8-10.8) K/uL Hgb 12.0 12.0 (12.0-16.0) g/dL Hct 37.3 37.3 (37-47) % Plt Count 288 277 (130-400) K/uL BMP 11/03/20 11/04/20 23:04 07:10 Sodium 140 141 Potassium 3.8 D 3.8 Chloride 110 H 110 H Carbon Dioxide 23 24 BUN 9 D 8 Creatinine 0.70 0.63 Glucose 94 88 Calcium 9.2 9.1 Cardiac Enzymes 11/03/20 11/04/20 Range/Units 20:48 01:58 Troponin I < 0.015 < 0.015 (0-0.045) ng/ml Liver Function 11/03/20 Range/Units 23:04 Total Bilirubin 0.5 (0.2-1) mg/dl AST 11 L (15-37) U/L ALT 16 (12-78) U/L Alkaline Phosphatase 81 (45-117) U/L Albumin 3.6 (3.4-5.0) gm/dl Medications Administered Current Inpatient Medications Acetaminophen (Acetaminophen 325 Mg Tab) 650 mg PO Q4H PRN PRN Reason: Pain or Fever Stop: 12/01/20 21:32 Last Admin: 11/03/20 19:49 Dose: 650 mg Documented by: Albuterol (Albuterol Hfa 8 Gm Inhaler) 1 puffs INH Q4H PRN PRN Reason: Shortness Of Breath Or Wheezin Stop: 12/01/20 21:32 Last Admin: 11/04/20 10:32 Dose: 1 puffs Documented by: Amlodipine Besylate (Amlodipine Besylate 5 Mg Tab) 10 mg PO QAM [facility] Stop: 12/02/20 08:59 Last Admin: 11/04/20 09:18 Dose: 10 mg Documented by: Aspirin (Aspirin 81 Mg Ectab) 81 mg PO QAM [facility] Stop: 12/04/20 08:59 Last Admin: 11/04/20 09:19 Dose: 81 mg Documented by: Baclofen (Baclofen 10 Mg Tab) 10 mg PO BID PRN PRN Reason: Spasms Stop: 12/01/20 21:32 Last Admin: 11/04/20 13:28 Dose: 10 mg Documented by: Carbidopa/Levodopa (Carbidopa/Levodopa 25/100mg Tab) 1 tab PO TID [facility] Stop: 12/01/20 21:32 Last Admin: 11/04/20 13:28 Dose: 1 tab Documented by: Ezetimibe (Ezetimibe 10 Mg Tablet) 10 mg PO HS [facility] Stop: 12/01/20 21:32 Last Admin: 11/04/20 00:18 Dose: Not Given Documented by: Enoxaparin Sodium (Enoxaparin Inj 40 Mg/0.4 Ml Syr) 40 mg SQ Q24H [facility] Stop: 12/01/20 21:59 Last Admin: 11/04/20 00:08 Dose: 40 mg Documented by: Gabapentin (Gabapentin 100 Mg Cap) 100 mg PO BID [facility] Stop: 12/01/20 21:32 Last Admin: 11/04/20 09:19 Dose: 100 mg Documented by: Hydromorphone HCl (Hydromorphone Inj 0.5 Mg/0.5 Ml Syr) 0.5 mg IV Q3H PRN PRN Reason: Pain Stop: 11/18/20 00:55 Last Admin: 11/04/20 04:05 Dose: 0.5 mg Documented by: Ciprofloxacin (Cipro / D5w) 400 mg in 200 mls @ 100 mls/hr IV Q12 [facility]; Protocol Stop: 11/13/20 09:29 Last Infusion: 11/04/20 12:35 Dose: Infused Documented by: Isosorbide Mononitrate (Isosorbide Morrison Extended Rel 30 Mg Tabcr) 30 mg PO [facility] Stop: 12/02/20 08:59 Last Admin: 11/04/20 09:19 Dose: 30 mg Documented by: Lidocaine (Lidocaine 5% 1 Patch) 1 patch TD [facility] Stop: 12/02/20 08:59 Last Admin: 11/04/20 09:20 Dose: 1 patch Documented by: Miscellaneous (Toviaz - Order Awaiting Action) 1 ea N/A [facility] Stop: 12/02/20 00:00 Last Admin: 11/04/20 07:49 Dose: Not Given Documented by: Miscellaneous (Remove Lidoderm Patch) 1 ea N/A DAILY@2100 [facility] Stop: 12/01/20 21:32 Last Admin: 11/03/20 23:30 Dose: 1 ea Documented by: Miscellaneous Information (Pharmacist Discharge Med Rec Consult) 1 ea N/A UD PRN PRN Reason: Consult Stop: 12/03/20 23:18 Pantoprazole Sodium (Pantoprazole 40 Mg Tab) 40 mg PO [facility] Stop: 12/02/20 08:59 Last Admin: 11/04/20 09:20 Dose: 40 mg Documented by: Polyethylene Glycol (Polyethylene (Miralax) 17 Gm Pack) 17 gm PO DAILY PRN PRN Reason: Constipation Stop: 12/01/20 21:32 Last Admin: 11/03/20 08:20 Dose: 17 gm Documented by: Tramadol HCl (Tramadol Hcl 50 Mg Tablet) 50 mg PO Q4H PRN PRN Reason: Pain Stop: 12/02/20 15:27 Last Admin: 11/04/20 13:28 Dose: 50 mg Documented by: Zolpidem Tartrate (Zolpidem Tartrate 5 Mg Tab) 5 mg PO HS PRN PRN Reason: Sleep Stop: 12/01/20 22:59 Last Admin: 11/02/20 21:09 Dose: 5 mg Documented by:
[2020-11-04] MEDS: BACLOFEN 10 MG TAB PO PRN (13:28)
--- NOTE | 2020-11-04 14:38 | XRay Report ---
LEFT WRIST 4 VIEWS CLINICAL HISTORY: Left wrist pain. FINDINGS: 4 views of the left wrist are obtained. No prior studies are available for comparison at th e time of dictation. The skeletal structures are osteopenic. No fracture is identified. There is dege nerative narrowing at the radiocarpal articulation. Widening between the scaphoid and lunate suggests ligamentous injury. There is calcification of the triangular fibrocartilage. Mild osteoarthritic fortunato nge is seen throughout the wrist and at the first carpometacarpal articulation. The overlying soft ti ssues are normal as imaged. IMPRESSION: 1. No fracture is identified. 2. Widening between the scaphoid and lunate suggests ligamentous injury. 3. Degenerative change and chondrocalcinosis as above. Electronically signed by: Van Henry M.D. 11/04/2020 2:36 PM
[2020-11-05] MEDS: traMADol HCL 50 MG TABLET PO PRN ×4 (02:49→19:48)
[2020-11-05] MEDS: CIPROFLOXACIN / D5W 400 MG/200 ML BAG IV SCH ×2 (10:01→20:44)
[2020-11-05] MEDS: ISOSORBIDE MONO EXTENDED REL 30 MG TABCR PO SCH (10:04)
[2020-11-05] MEDS: amLODIPine BESYLATE 5 MG TAB PO SCH (10:05)
[2020-11-05] MEDS: BACLOFEN 10 MG TAB PO PRN ×2 (10:05→18:18)
[2020-11-05] MEDS: ASPIRIN 81 MG ECTAB PO SCH (10:05)
[2020-11-05] MEDS: PANTOprazole 40 MG TAB PO SCH (10:06)
[2020-11-05] MEDS: LIDOCAINE 5% 1 PATCH TD SCH (10:06)
[2020-11-05] MEDS: CARBIDOPA/LEVODOPA 25/100MG TAB PO SCH ×3 (10:06→20:44)
[2020-11-05] MEDS: GABAPENTIN 100 MG CAP PO SCH ×2 (10:06→20:44)
[2020-11-05] MEDS: POLYETHYLENE (MIRALAX) 17 GM PACK PO PRN (10:09)
--- NOTE | 2020-11-05 13:27 | Hospitalist Progress Note ---
Date of Service November 05, 2020 Assessment & Plan (1) UTI (urinary tract infection): Pt is 75 y/o F with PMH HTN, dyslipidemia, hypothyroidism, anemia, recurrent UTI, recurrent falls, Parkinson, insomnia, GERD, spinal stenosis, chronic back pain, CKD III and others listed below presented to ER for complaint of hematuria, foul smelling urine. H/O UTI 09/22/2020, treated at [facility] with Rocephin x3 days and discharged on Ceftin, urine culture pansensitive E. coli In ER patient was afebrile, vitals stable, BUN: 17, Cr: 0.61 UA:3+bacteria, >30 WBC, 3+leukocyte esterase, 2+ blood. Was given Rocephin 2GM IV Urine culture is growing Cipro back to her formulary and probable Enterococcus. Awaiting sensitivity for Enterococcus-sensitive to current antibiotic ciprofloxacin Hold chronic nitrofurantoin Ceftriaxone has been changed to intravenous ciprofloxacin Awaiting further sensitivity Symptomatically much better-we will continue intravenous ciprofloxacin for now EKG did not show any increase in QT Denies any urinary symptoms (2) TIA (transient ischemic attack): Possible ischemic attack last night Apparent imaging studies with CT of the head, CTA of the head and neck are unremarkable Echo and MRI has been pending Appreciate neurology input and recommendation We will continue with current treatment Doubt any stroke in the family members think that she has been at her baseline (3) Ambulatory dysfunction: (4) Parkinson disease: History of Parkinson's. Previously followed with Dr. Fields. Patient was referred to movement disorder clinic at [facility] however did not follow-up. Says that she remains in bed most of the time and cannot do much for herself Reports baseline uses wheelchair and wheeled walker Continue carbidopa/levodopa PT/OT eval and likely to need rehab Has akinetic parkinsonism As per neurology and likely to need a tertiary care center evaluation for this For now we will continue PT and OT and possible placement (5) Hypertension: Continue amlodipine (6) Shoulder pain: C/O Left shoulder pain. H/O frozen shoulder, arthroplasty Xray Shoulder: no acute changes lidocaine patch prn Bilateral foot pain Has stiffness with flexion or deformity of the ankle Awaiting orthotics for the leg and foot Will try pain medications as needed Left wrist pain Left hand is in a fist and she does not want to open it as she thinks her wrist is broken We will get an x-ra-no evidence of fracture y (7) Abnormal EKG: EKG: very poor tracing making interpretation difficult. appears sinus rhythm with PVC Initial Troponin negative. Denies CP, SOB Trend troponin-negative Repeat EKG in am-abnormal EKG due to Parkinson's disease No evidence of QT prolongation (8) Hyperlipidemia: Patient denied statin use in past Continue ezetimibe (9) Hypothyroidism: TSH: 1.4 Does not appear that patient has been taking levothyroxine. Last prescribed 11/2019 (10) CKD (chronic kidney disease), stage III: Cr: 0.6. ~Baseline 0.8 Monitor renal functions, avoid nephrotoxic agents when possible (11) GERD (gastroesophageal reflux disease): Continue PPI (12) Chronic back pain: Continue gabapentin, baclofen DVT Prophylaxis -Lovenox SQ Full Code as per discussion with pt Follows with Dr Robles for routine care Admission and Anticipated Discharge Date Admission Date: November 01, 2020 Subjective 11/02/2020 The patient was seen and examined in medical telemetry unit She has significant Parkinson's disease and has been almost bedbound at home She has had UTI August and was treated with Rocephin and Ceftin She was brought in with hematuria and foul-smelling urine and noted to have another UTI Complaints of weakness and some nonspecific pain in the feet and hands 11/03/2020 The patient was seen and examined in medical telemetry unit She complains to have some pain in the legs and feet Denies any dysuria, fever and no chills 11/04/2020 The patient was seen and examined in medical telemetry unit She has nonspecific complaints involving pain more or less all over the body and all the joints Complains today of numbness in left upper extremity and inability to open the fist on the left side Denies any chest pain, palpitation or shortness of breath Denies any headache and blurred vision 11/05/2020 The patient was seen and examined in medical telemetry unit She has been feeling much better and is out of bed on a chair She complains to have ongoing pain in the left shoulder and bilateral feet She wants to walk around even with the walker Review of Systems Review of Systems: All systems reviewed and are unremarkable except as noted below Musculoskeletal: + joint pain (Bilateral foot pain and pain in left upper extremity) No acute arthritis in any of the joint. Has some flexural deformity involving the ankles with stiffness of the joints Physical Exam Physical Exam: Lying in bed comfortably Constitutional: well developed, well nourished, + ill appearing and + obese Eyes: PERRL, conjunctivae normal, anicteric sclerae ENMT: external ear and nose normal, oropharynx normal Neck: trachea midline, no thyromegaly Respiratory: no respiratory distress Auscultation: lungs clear to auscultation bilaterally Cardiovascular: Rate/Rhythm: regular rate and regular rhythm Heart Sounds: no murmur Extremities: + edema (Trace edema bilaterally) Gastrointestinal (Abdomen): Inspection/Auscultation: normal bowel sounds; abdomen not distended Percussion/Palpation: abdomen soft; abdomen nontender Musculoskeletal: Ankle: + ankle abnormal to inspection (Bilateral flexural deformities of the ankle with stiffness and pain on move) Neurologic: Alert and awake. Pleasantly confused. Has significant Parkinson's disease with akinetic status Lymphatic: no cervical or axillary lymphadenopathy Results & Data Results & Data ([facility]) Vital Signs (Past 12 Hours) Vital Signs Temp Pulse Pulse Resp BP Pulse Ox 11/05/20 11:48 36.7 C 74 18 147/77 H 95 11/05/20 08:02 36.3 C L 61 18 137/62 92 11/05/20 07:38 63 11/05/20 03:49 36.7 C 65 18 130/75 95 11/05/20 02:30 56 L Medications Administered Current Inpatient Medications Acetaminophen (Acetaminophen 325 Mg Tab) 650 mg PO Q4H PRN PRN Reason: Pain or Fever Stop: 12/01/20 21:32 Last Admin: 11/03/20 19:49 Dose: 650 mg Documented by: Albuterol (Albuterol Hfa 8 Gm Inhaler) 1 puffs INH Q4H PRN PRN Reason: Shortness Of Breath Or Wheezin Stop: 12/01/20 21:32 Last Admin: 11/04/20 10:32 Dose: 1 puffs Documented by: Amlodipine Besylate (Amlodipine Besylate 5 Mg Tab) [facility] Stop: 12/02/20 08:59 Last Admin: 11/05/20 10:05 Dose: 10 mg Documented by: Aspirin (Aspirin 81 Mg Ectab) 81 mg PO [facility] Stop: 12/04/20 08:59 Last Admin: 11/05/20 10:05 Dose: 81 mg Documented by: Baclofen (Baclofen 10 Mg Tab) 10 mg PO BID PRN PRN Reason: Spasms Stop: 12/01/20 21:32 Last Admin: 11/05/20 10:05 Dose: 10 mg Documented by: Carbidopa/Levodopa (Carbidopa/Levodopa 25/100mg Tab) 1 tab PO TID [facility] Stop: 12/01/20 21:32 Last Admin: 11/05/20 10:06 Dose: 1 tab Documented by: Ezetimibe (Ezetimibe 10 Mg Tablet) 10 mg PO HS [facility] Stop: 12/01/20 21:32 Last Admin: 11/04/20 19:52 Dose: 10 mg Documented by: Enoxaparin Sodium (Enoxaparin Inj 40 Mg/0.4 Ml Syr) 40 mg SQ Q24H [facility] Stop: 12/01/20 21:59 Last Admin: 11/04/20 22:02 Dose: 40 mg Documented by: Gabapentin (Gabapentin 100 Mg Cap) 100 mg PO BID [facility] Stop: 12/01/20 21:32 Last Admin: 11/05/20 10:06 Dose: 100 mg Documented by: Hydromorphone HCl (Hydromorphone Inj 0.5 Mg/0.5 Ml Syr) 0.5 mg IV Q3H PRN PRN Reason: Pain Stop: 11/18/20 00:55 Last Admin: 11/04/20 04:05 Dose: 0.5 mg Documented by: Ciprofloxacin (Cipro / D5w) 400 mg in 200 mls @ 100 mls/hr IV Q12 [facility]; Protocol Stop: 11/13/20 09:29 Last Infusion: 11/05/20 12:10 Dose: Infused Documented by: Isosorbide Mononitrate (Isosorbide Payne Extended Rel 30 Mg Tabcr) 30 mg PO QAM [facility] Stop: 12/02/20 08:59 Last Admin: 11/05/20 10:04 Dose: 30 mg Documented by: Lidocaine (Lidocaine 5% 1 Patch) 1 patch TD QAM [facility] Stop: 12/02/20 08:59 Last Admin: 11/05/20 10:06 Dose: 1 patch Documented by: Miscellaneous (Toviaz - Order Awaiting Action) 1 ea N/A QS [facility] Stop: 12/02/20 00:00 Last Admin: 11/05/20 09:30 Dose: Not Given Documented by: Miscellaneous (Remove Lidoderm Patch) 1 ea N/A DAILY@2100 [facility] Stop: 12/01/20 21:32 Last Admin: 11/04/20 19:52 Dose: 1 ea Documented by: Miscellaneous Information (Pharmacist Discharge Med Rec Consult) 1 ea N/A UD PRN PRN Reason: Consult Stop: 12/03/20 23:18 Pantoprazole Sodium (Pantoprazole 40 Mg Tab) 40 mg PO QAM [facility] Stop: 12/02/20 08:59 Last Admin: 11/05/20 10:06 Dose: 40 mg Documented by: Polyethylene Glycol (Polyethylene (Miralax) 17 Gm Pack) 17 gm PO DAILY PRN PRN Reason: Constipation Stop: 12/01/20 21:32 Last Admin: 11/05/20 10:09 Dose: 17 gm Documented by: Tramadol HCl (Tramadol Hcl 50 Mg Tablet) 50 mg PO Q4H PRN PRN Reason: Pain Stop: 12/02/20 15:27 Last Admin: 11/05/20 10:05 Dose: 50 mg Documented by: Zolpidem Tartrate (Zolpidem Tartrate 5 Mg Tab) 5 mg PO HS PRN PRN Reason: Sleep Stop: 12/01/20 22:59 Last Admin: 11/02/20 21:09 Dose: 5 mg Documented by:
--- NOTE | 2020-11-05 16:15 | Progress Notes ---
SUBJECTIVE: I am seeing the patient in followup. She has an atypical parkinsonism and while hospita lized for a urinary tract infection, had an episode of headache and left facial numbness, left arm an d leg weakness and numbness, which she felt has persisted. She has not yet had her MRI performed. T fausto, she is much the same as she was yesterday awake, alert, hypophonic with decreased blink frequen cy, mild flattening of the left nasolabial fold. Mild dysarthria. No obvious asymmetric weakness. IMPRESSION: Atypical parkinsonism. I spoke to the patient's son. I recommend that she be seen at a dedicated movement disorder clinic. Higher doses of levodopa-carbidopa were not previously helpful. Query transient ischemic attack, query complicated migraine (would be very unusual at this age). PLAN: MRI brain. We will follow with you. Job ID: [id number]
[2020-11-05] MEDS: ACETAMINOPHEN 325 MG TAB PO PRN (16:24)
[2020-11-05] MEDS: ZOLPIDEM TARTRATE 5 MG TAB PO PRN (20:43)
[2020-11-05] MEDS: EZETIMIBE 10 MG TABLET PO SCH (20:44)
[2020-11-05] MEDS: ENOXAPARIN INJ 40 MG/0.4 ML SYR SQ SCH (20:44)
[2020-11-06] MEDS: GABAPENTIN 100 MG CAP PO SCH ×2 (08:19→20:17)
[2020-11-06] MEDS: ISOSORBIDE MONO EXTENDED REL 30 MG TABCR PO SCH (08:19)
[2020-11-06] MEDS: CARBIDOPA/LEVODOPA 25/100MG TAB PO SCH ×3 (08:20→20:16)
[2020-11-06] MEDS: PANTOprazole 40 MG TAB PO SCH (08:20)
[2020-11-06] MEDS: ASPIRIN 81 MG ECTAB PO SCH (08:20)
[2020-11-06] MEDS: LIDOCAINE 5% 1 PATCH TD SCH (08:20)
[2020-11-06] MEDS: amLODIPine BESYLATE 5 MG TAB PO SCH (08:20)
[2020-11-06] MEDS: traMADol HCL 50 MG TABLET PO PRN ×3 (08:50→17:52)
[2020-11-06] MEDS: CIPROFLOXACIN / D5W 400 MG/200 ML BAG IV SCH ×2 (08:51→20:16)
[2020-11-06] MEDS: BACLOFEN 10 MG TAB PO PRN (14:44)
--- NOTE | 2020-11-06 15:52 | Hospitalist Progress Note ---
Date of Service November 06, 2020 Assessment & Plan (1) UTI (urinary tract infection): Pt is 75 y/o F with PMH HTN, dyslipidemia, hypothyroidism, anemia, recurrent UTI, recurrent falls, Parkinson, insomnia, GERD, spinal stenosis, chronic back pain, CKD III and others listed below presented to ER for complaint of hematuria, foul smelling urine. H/O UTI 09/22/2020, treated at [facility] with Rocephin x3 days and discharged on Ceftin, urine culture pansensitive E. coli In ER patient was afebrile, vitals stable, BUN: 17, Cr: 0.61 UA:3+bacteria, >30 WBC, 3+leukocyte esterase, 2+ blood. Was given Rocephin 2GM IV Urine culture is growing Cipro back to her formulary and probable Enterococcus. Awaiting sensitivity for Enterococcus-sensitive to current antibiotic ciprofloxacin Hold chronic nitrofurantoin Ceftriaxone has been changed to intravenous ciprofloxacin Awaiting further sensitivity Symptomatically much better-we will continue intravenous ciprofloxacin for now EKG did not show any increase in QT Denies any urinary symptoms We will change antibiotic to oral from tomorrow to finish a course of 7 to 10 days in total Likely be transferred to [facility] tomorrow (2) TIA (transient ischemic attack): Possible ischemic attack last night Apparent imaging studies with CT of the head, CTA of the head and neck are unremarkable Echo and MRI has been pending Appreciate neurology input and recommendation We will continue with current treatment Doubt any stroke in the family members think that she has been at her baseline Awaiting MRI (3) Ambulatory dysfunction: (4) Parkinson disease: History of Parkinson's. Previously followed with Dr. Fields. Patient was referred to movement disorder clinic at [facility] however did not follow-up. Says that she remains in bed most of the time and cannot do much for herself Reports baseline uses wheelchair and wheeled walker Continue carbidopa/levodopa PT/OT eval and likely to need rehab Has akinetic parkinsonism As per neurology and likely to need a tertiary care center evaluation for this For now we will continue PT and OT and possible placement Will be transferred to [facility] Discussed the son and the about dedicated mobility clinic evaluation down the line (5) Hypertension: Continue amlodipine (6) Shoulder pain: C/O Left shoulder pain. H/O frozen shoulder, arthroplasty Xray Shoulder: no acute changes lidocaine patch prn Bilateral foot pain Has stiffness with flexion or deformity of the ankle Awaiting orthotics for the leg and foot Will try pain medications as needed Left wrist pain Left hand is in a fist and she does not want to open it as she thinks her wrist is broken We will get an x-ra-no evidence of fracture y (7) Abnormal EKG: EKG: very poor tracing making interpretation difficult. appears sinus rhythm with PVC Initial Troponin negative. Denies CP, SOB Trend troponin-negative Repeat EKG in am-abnormal EKG due to Parkinson's disease No evidence of QT prolongation (8) Hyperlipidemia: Patient denied statin use in past Continue ezetimibe (9) Hypothyroidism: TSH: 1.4 Does not appear that patient has been taking levothyroxine. Last prescribed 11/2019 (10) CKD (chronic kidney disease), stage III: Cr: 0.6. ~Baseline 0.8 Monitor renal functions, avoid nephrotoxic agents when possible (11) GERD (gastroesophageal reflux disease): Continue PPI (12) Chronic back pain: Continue gabapentin, baclofen DVT Prophylaxis -Lovenox SQ Full Code as per discussion with pt Follows with Dr Robles for routine care Admission and Anticipated Discharge Date Admission Date: November 01, 2020 Subjective 11/02/2020 The patient was seen and examined in medical telemetry unit She has significant Parkinson's disease and has been almost bedbound at home She has had UTI 1 22 September and was treated with Rocephin and Ceftin She was brought in with hematuria and foul-smelling urine and noted to have another UTI Complaints of weakness and some nonspecific pain in the feet and hands 11/03/2020 The patient was seen and examined in medical telemetry unit She complains to have some pain in the legs and feet Denies any dysuria, fever and no chills 11/04/2020 The patient was seen and examined in medical telemetry unit She has nonspecific complaints involving pain more or less all over the body and all the joints Complains today of numbness in left upper extremity and inability to open the fist on the left side Denies any chest pain, palpitation or shortness of breath Denies any headache and blurred vision 11/05/2020 The patient was seen and examined in medical telemetry unit She has been feeling much better and is out of bed on a chair She complains to have ongoing pain in the left shoulder and bilateral feet She wants to walk around even with the walker 11/06/2020 The patient was seen and examined in medical telemetry unit She remains stable but still complains of pain in the left upper extremity and and bilateral feet Denies any more episodes of speech and/or weakness Awaiting MRI Review of Systems Review of Systems: All systems reviewed and are unremarkable except as noted below Musculoskeletal: + joint pain (Bilateral foot pain and pain in left upper extremity) No acute arthritis in any of the joint. Has some flexural deformity involving the ankles with stiffness of the joints Physical Exam Physical Exam: Lying in bed comfortably Constitutional: well developed, well nourished, + ill appearing and + obese Eyes: PERRL, conjunctivae normal, anicteric sclerae ENMT: external ear and nose normal, oropharynx normal Neck: trachea midline, no thyromegaly Respiratory: no respiratory distress Auscultation: lungs clear to auscultation bilaterally Cardiovascular: Rate/Rhythm: regular rate and regular rhythm Heart Sounds: no murmur Extremities: + edema (Trace edema bilaterally) Gastrointestinal (Abdomen): Inspection/Auscultation: normal bowel sounds; abdomen not distended Percussion/Palpation: abdomen soft; abdomen nontender Musculoskeletal: Ankle: + ankle abnormal to inspection (Bilateral flexural deformities of the ankle with stiffness and pain on move) Neurologic: Alert, awake and oriented x3. Generally weak Lymphatic: no cervical or axillary lymphadenopathy Results & Data Results & Data ([facility]) Vital Signs (Past 12 Hours) Vital Signs Temp Pulse Resp BP Pulse Ox 11/06/20 12:00 36.6 C 71 18 135/69 96 11/06/20 07:56 36.7 C 69 17 155/69 H 93 Medications Administered Current Inpatient Medications Acetaminophen (Acetaminophen 325 Mg Tab) 650 mg PO Q4H PRN PRN Reason: Pain or Fever Stop: 12/01/20 21:32 Last Admin: 11/05/20 16:24 Dose: 650 mg Documented by: Albuterol (Albuterol Hfa 8 Gm Inhaler) 1 puffs INH Q4H PRN PRN Reason: Shortness Of Breath Or Wheezin Stop: 12/01/20 21:32 Last Admin: 11/04/20 10:32 Dose: 1 puffs Documented by: Amlodipine Besylate (Amlodipine Besylate 5 Mg Tab) 10 mg PO QAM [facility] Stop: 12/02/20 08:59 Last Admin: 11/06/20 08:20 Dose: 10 mg Documented by: Aspirin (Aspirin 81 Mg Ectab) 81 mg PO QAM [facility] Stop: 12/04/20 08:59 Last Admin: 11/06/20 08:20 Dose: 81 mg Documented by: Baclofen (Baclofen 10 Mg Tab) 10 mg PO BID PRN PRN Reason: Spasms Stop: 12/01/20 21:32 Last Admin: 11/06/20 14:44 Dose: 10 mg Documented by: Carbidopa/Levodopa (Carbidopa/Levodopa 25/100mg Tab) 1 tab PO TID [facility] Stop: 12/01/20 21:32 Last Admin: 11/06/20 13:34 Dose: 1 tab Documented by: Ezetimibe (Ezetimibe 10 Mg Tablet) 10 mg PO HS [facility] Stop: 12/01/20 21:32 Last Admin: 11/05/20 20:44 Dose: 10 mg Documented by: Enoxaparin Sodium (Enoxaparin Inj 40 Mg/0.4 Ml Syr) 40 mg SQ Q24H [facility] Stop: 12/01/20 21:59 Last Admin: 11/05/20 20:44 Dose: 40 mg Documented by: Gabapentin (Gabapentin 100 Mg Cap) 100 mg PO BID [facility] Stop: 12/01/20 21:32 Last Admin: 11/06/20 08:19 Dose: 100 mg Documented by: Hydromorphone HCl (Hydromorphone Inj 0.5 Mg/0.5 Ml Syr) 0.5 mg IV Q3H PRN PRN Reason: Pain Stop: 11/18/20 00:55 Last Admin: 11/04/20 04:05 Dose: 0.5 mg Documented by: Ciprofloxacin (Cipro / D5w) 400 mg in 200 mls @ 100 mls/hr IV Q12 [facility]; Protocol Stop: 11/13/20 09:29 Last Infusion: 11/06/20 11:29 Dose: Infused Documented by: Isosorbide Mononitrate (Isosorbide [place] Extended Rel 30 Mg Tabcr) 30 mg PO QAWW [facility] Stop: 12/02/20 08:59 Last Admin: 11/06/20 08:19 Dose: 30 mg Documented by: Lidocaine (Lidocaine 5% 1 Patch) 1 patch TD QAWW [facility] Stop: 12/02/20 08:59 Last Admin: 11/06/20 08:20 Dose: 1 patch Documented by: Miscellaneous (Toviaz - Order Awaiting Action) 1 ea N/A QS [facility] Stop: 12/02/20 00:00 Last Admin: 11/06/20 08:21 Dose: Not Given Documented by: Miscellaneous (Remove Lidoderm Patch) 1 ea N/A DAILY@2100 [facility] Stop: 12/01/20 21:32 Last Admin: 11/05/20 20:45 Dose: 1 ea Documented by: Miscellaneous Information (Pharmacist Discharge Med Rec Consult) 1 ea N/A UD PRN PRN Reason: Consult Stop: 12/03/20 23:18 Pantoprazole Sodium (Pantoprazole 40 Mg Tab) [address] [facility] Stop: 12/02/20 08:59 Last Admin: 11/06/20 08:20 Dose: 40 mg Documented by: Polyethylene Glycol (Polyethylene (Miralax) 17 Gm Pack) 17 gm PO DAILY PRN PRN Reason: Constipation Stop: 12/01/20 21:32 Last Admin: 11/05/20 10:09 Dose: 17 gm Documented by: Tramadol HCl (Tramadol Hcl 50 Mg Tablet) 50 mg PO Q4H PRN PRN Reason: Pain Stop: 12/02/20 15:27 Last Admin: 11/06/20 13:33 Dose: 50 mg Documented by: Zolpidem Tartrate (Zolpidem Tartrate 5 Mg Tab) 5 mg PO HS PRN PRN Reason: Sleep Stop: 12/01/20 22:59 Last Admin: 11/05/20 20:43 Dose: 5 mg Documented by:
--- NOTE | 2020-11-06 18:13 | Progress Notes ---
INTERIM NOTE DATE OF SERVICE: 11/06/2020 Ms. Maxwell has not yet had her MRI of the brain. I will check back in after the MRI has been ordere d. Job ID: [id number]
[2020-11-06] MEDS: ACETAMINOPHEN 325 MG TAB PO PRN (20:15)
[2020-11-06] MEDS: EZETIMIBE 10 MG TABLET PO SCH (20:16)
[2020-11-06] MEDS: ENOXAPARIN INJ 40 MG/0.4 ML SYR SQ SCH (20:17)
--- NOTE | 2020-11-06 20:30 | Magnetic Resonance Report ---
MRI OF THE BRAIN WITHOUT CONTRAST CLINICAL HISTORY: dysarthria, left hemiparesis, hemisensory loss COMPARISON STUDY: Head CT and CTA of the head November 03, 2020. TECHNIQUE: Utilizing a 1.5 Cait magnet and dedicated coil, multiplanar, multiecho imaging of the bra in was performed without IV contrast. FINDINGS: There are no foci of restricted diffusion to suggest acute infarct. No acute intracranial h emorrhage, midline shift or mass effect is present. Ventricular system is normal. Basal cisterns are patent. There are no extra axial collections. Flow-voids for the major intracranial vessels are prese nt. No intracranial masses are identified on this unenhanced examination. A few small white matter T2 hyperintense foci favor mild small vessel disease. Note is made of a 4.7 cm T1 hypointense focus wit hin the right parietal bone. This was present on head CT of May 15, 2016 and is therefore likely benign. IMPRESSION: 1. No acute intracranial findings. 2. White matter T2 hyperintense foci which favor mild small vessel disease. 3. 4.7 cm T1 hypointense focus within the right parietal bone. This is indeterminate but was present on head CT of May 15, 2016 and is therefore likely benign. ACT 112: Negative or not required by law. Electronically signed by: David Spring M.D. 11/06/2020 8:29 PM
[2020-11-06] MEDS: ZOLPIDEM TARTRATE 5 MG TAB PO PRN (22:26)
[2020-11-07] MEDS: PANTOprazole 40 MG TAB PO SCH (08:23)
[2020-11-07] MEDS: LIDOCAINE 5% 1 PATCH TD SCH (08:23)
[2020-11-07] MEDS: GABAPENTIN 100 MG CAP PO SCH ×2 (08:24→21:44)
[2020-11-07] MEDS: CARBIDOPA/LEVODOPA 25/100MG TAB PO SCH ×3 (08:24→21:44)
[2020-11-07] MEDS: amLODIPine BESYLATE 5 MG TAB PO SCH (08:24)
[2020-11-07] MEDS: ISOSORBIDE MONO EXTENDED REL 30 MG TABCR PO SCH (08:24)
[2020-11-07] MEDS: ASPIRIN 81 MG ECTAB PO SCH (08:24)
[2020-11-07] MEDS: CIPROFLOXACIN / D5W 400 MG/200 ML BAG IV SCH ×2 (09:16→21:42)
--- NOTE | 2020-11-07 12:13 | Hospitalist Progress Note ---
Date of Service November 07, 2020 Assessment & Plan (1) UTI (urinary tract infection): Pt is 75 y/o F with PMH HTN, dyslipidemia, hypothyroidism, anemia, recurrent UTI, recurrent falls, Parkinson, insomnia, GERD, spinal stenosis, chronic back pain, CKD III and others listed below presented to ER for complaint of hematuria, foul smelling urine. H/O UTI 09/22/2020, treated at [facility] with Rocephin x3 days and discharged on Ceftin, urine culture pansensitive E. coli In ER patient was afebrile, vitals stable, BUN: 17, Cr: 0.61 UA:3+bacteria, >30 WBC, 3+leukocyte esterase, 2+ blood. Was given Rocephin 2GM IV Urine culture is growing Cipro back to her formulary and probable Enterococcus. Awaiting sensitivity for Enterococcus-sensitive to current antibiotic ciprofloxacin Hold chronic nitrofurantoin Ceftriaxone has been changed to intravenous ciprofloxacin Awaiting further sensitivity Symptomatically much better-we will continue intravenous ciprofloxacin for now EKG did not show any increase in QT Denies any urinary symptoms We will change antibiotic to oral from tomorrow to finish a course of 7 to 10 days in total Likely be transferred to [facility] tomorrow We will give oral Cipro to continue and finish the course of antibiotic (2) TIA (transient ischemic attack): Possible ischemic attack last night Apparent imaging studies with CT of the head, CTA of the head and neck are unremarkable Echo and MRI has been pending Appreciate neurology input and recommendation We will continue with current treatment Doubt any stroke in the family members think that she has been at her baseline Awaiting MRI-has been negative for any stroke. Microvascular changes No more neurological symptoms except parkinsonism (3) Ambulatory dysfunction: (4) Parkinson disease: History of Parkinson's. Previously followed with Dr. Fields. Patient was referred to movement disorder clinic at [facility] however did not follow-up. Says that she remains in bed most of the time and cannot do much for herself Reports baseline uses wheelchair and wheeled walker Continue carbidopa/levodopa PT/OT eval and likely to need rehab Will be transferred to [facility] this afternoon Has akinetic parkinsonism As per neurology and likely to need a tertiary care center evaluation for this For now we will continue PT and OT and possible placement Will be transferred to [facility] Discussed the son and the about dedicated mobility clinic evaluation down the line (5) Hypertension: Continue amlodipine (6) Shoulder pain: C/O Left shoulder pain. H/O frozen shoulder, arthroplasty Xray Shoulder: no acute changes lidocaine patch prn Bilateral foot pain Has stiffness with flexion or deformity of the ankle Awaiting orthotics for the leg and foot Will try pain medications as needed Left wrist pain Left hand is in a fist and she does not want to open it as she thinks her wrist is broken We will get an x-ra-no evidence of fracture y (7) Abnormal EKG: EKG: very poor tracing making interpretation difficult. appears sinus rhythm with PVC Initial Troponin negative. Denies CP, SOB Trend troponin-negative Repeat EKG in am-abnormal EKG due to Parkinson's disease No evidence of QT prolongation (8) Hyperlipidemia: Patient denied statin use in past Continue ezetimibe (9) Hypothyroidism: TSH: 1.4 Does not appear that patient has been taking levothyroxine. Last prescribed 2019 (10) CKD (chronic kidney disease), stage III: Cr: 0.6. ~Baseline 0.8 Monitor renal functions, avoid nephrotoxic agents when possible (11) GERD (gastroesophageal reflux disease): Continue PPI (12) Chronic back pain: Continue gabapentin, baclofen DVT Prophylaxis -Lovenox SQ Full Code as per discussion with pt Follows with Dr Robles for routine care Admission and Anticipated Discharge Date Admission Date: November 01, 2020 Subjective 11/02/2020 The patient was seen and examined in medical telemetry unit She has significant Parkinson's disease and has been almost bedbound at home She has had UTI August and was treated with Rocephin and Ceftin She was brought in with hematuria and foul-smelling urine and noted to have another UTI Complaints of weakness and some nonspecific pain in the feet and hands 11/03/2020 The patient was seen and examined in medical telemetry unit She complains to have some pain in the legs and feet Denies any dysuria, fever and no chills 11/04/2020 The patient was seen and examined in medical telemetry unit She has nonspecific complaints involving pain more or less all over the body and all the joints Complains today of numbness in left upper extremity and inability to open the fist on the left side Denies any chest pain, palpitation or shortness of breath Denies any headache and blurred vision 11/05/2020 The patient was seen and examined in medical telemetry unit She has been feeling much better and is out of bed on a chair She complains to have ongoing pain in the left shoulder and bilateral feet She wants to walk around even with the walker 11/06/2020 The patient was seen and examined in medical telemetry unit She remains stable but still complains of pain in the left upper extremity and and bilateral feet Denies any more episodes of speech and/or weakness Awaiting MRI 11/07/2020 The patient was seen and examined in medical telemetry unit She remains stable and still complains some pain in the left upper extremity and bilateral feet Her MRI has been negative for any stroke She will be transferred to [facility] this afternoon Review of Systems Review of Systems: All systems reviewed and are unremarkable except as noted below Musculoskeletal: + joint pain (Bilateral foot pain and pain in left upper extremity) No acute arthritis in any of the joint. Has some flexural deformity involving the ankles with stiffness of the joints Physical Exam Physical Exam: Lying in bed comfortably Constitutional: well developed, well nourished, + ill appearing and + obese Eyes: PERRL, conjunctivae normal, anicteric sclerae ENMT: external ear and nose normal, oropharynx normal Neck: trachea midline, no thyromegaly Respiratory: no respiratory distress Auscultation: lungs clear to auscultation bilaterally Cardiovascular: Rate/Rhythm: regular rate and regular rhythm Heart Sounds: no murmur Extremities: + edema (Trace edema bilaterally) Gastrointestinal (Abdomen): Inspection/Auscultation: normal bowel sounds; abdomen not distended Percussion/Palpation: abdomen soft; abdomen nontender Musculoskeletal: Ankle: + ankle abnormal to inspection (Bilateral flexural deformities of the ankle with stiffness and pain on move) Neurologic: Alert, awake and oriented x3, has a kinetic Parkinson's disease with limited movements of the joints Lymphatic: no cervical or axillary lymphadenopathy Results & Data Results & Data ([facility]) Vital Signs (Past 12 Hours) Vital Signs Temp Pulse Resp BP Pulse Ox 11/07/20 11:23 37.1 C 69 18 129/65 96 11/07/20 07:40 36.6 C 60 18 135/72 97 11/07/20 03:15 36.3 C L 56 L 18 122/65 95 Medications Administered Current Inpatient Medications Acetaminophen (Acetaminophen 325 Mg Tab) 650 mg PO Q4H PRN PRN Reason: Pain or Fever Stop: 12/01/20 21:32 Last Admin: 11/06/20 20:15 Dose: 650 mg Documented by: Albuterol (Albuterol Hfa 8 Gm Inhaler) 1 puffs INH Q4H PRN PRN Reason: Shortness Of Breath Or Wheezin Stop: 12/01/20 21:32 Last Admin: 11/04/20 10:32 Dose: 1 puffs Documented by: Amlodipine Besylate (Amlodipine Besylate 5 Mg Tab) 10 mg PO QAM [facility] Stop: 12/02/20 08:59 Last Admin: 11/07/20 08:24 Dose: 10 mg Documented by: Aspirin (Aspirin 81 Mg Ectab) 81 mg PO QAM [facility] Stop: 12/04/20 08:59 Last Admin: 11/07/20 08:24 Dose: 81 mg Documented by: Baclofen (Baclofen 10 Mg Tab) 10 mg PO BID PRN PRN Reason: Spasms Stop: 12/01/20 21:32 Last Admin: 11/06/20 14:44 Dose: 10 mg Documented by: Carbidopa/Levodopa (Carbidopa/Levodopa 25/100mg Tab) 1 tab PO TID [facility] Stop: 12/01/20 21:32 Last Admin: 11/07/20 08:24 Dose: 1 tab Documented by: Ezetimibe (Ezetimibe 10 Mg Tablet) 10 mg PO HS [facility] Stop: 12/01/20 21:32 Last Admin: 11/06/20 20:16 Dose: 10 mg Documented by: Enoxaparin Sodium (Enoxaparin Inj 40 Mg/0.4 Ml Syr) 40 mg SQ Q24H [facility] Stop: 12/01/20 21:59 Last Admin: 11/06/20 20:17 Dose: 40 mg Documented by: Gabapentin (Gabapentin 100 Mg Cap) 100 mg PO BID [facility] Stop: 12/01/20 21:32 Last Admin: 11/07/20 08:24 Dose: 100 mg Documented by: Hydromorphone HCl (Hydromorphone Inj 0.5 Mg/0.5 Ml Syr) 0.5 mg IV Q3H PRN PRN Reason: Pain Stop: 11/18/20 00:55 Last Admin: 11/04/20 04:05 Dose: 0.5 mg Documented by: Ciprofloxacin (Cipro / D5w) 400 mg in 200 mls @ 100 mls/hr IV Q12 [facility]; Protocol Stop: 11/13/20 09:29 Last Infusion: 11/07/20 11:19 Dose: Infused Documented by: Isosorbide Mononitrate (Isosorbide [place] Extended Rel 30 Mg Tabcr) 30 mg PO [facility] Stop: 12/02/20 08:59 Last Admin: 11/07/20 08:24 Dose: 30 mg Documented by: Lidocaine (Lidocaine 5% 1 Patch) 1 patch TD [facility] Stop: 12/02/20 08:59 Last Admin: 11/07/20 08:23 Dose: 1 patch Documented by: Miscellaneous (Toviaz - Order Awaiting Action) 1 ea N/A [facility] Stop: 12/02/20 00:00 Last Admin: 11/07/20 08:15 Dose: Not Given Documented by: Miscellaneous (Remove Lidoderm Patch) 1 ea N/A DAILY@2100 [facility] Stop: 12/01/20 21:32 Last Admin: 11/06/20 20:17 Dose: 1 ea Documented by: Miscellaneous Information (Pharmacist Discharge Med Rec Consult) 1 ea N/A UD PRN PRN Reason: Consult Stop: 12/03/20 23:18 Pantoprazole Sodium (Pantoprazole 40 Mg Tab) 40 mg PO [facility] Stop: 12/02/20 08:59 Last Admin: 11/07/20 08:23 Dose: 40 mg Documented by: Polyethylene Glycol (Polyethylene (Miralax) 17 Gm Pack) 17 gm PO DAILY PRN PRN Reason: Constipation Stop: 12/01/20 21:32 Last Admin: 11/05/20 10:09 Dose: 17 gm Documented by: Tramadol HCl (Tramadol Hcl 50 Mg Tablet) 50 mg PO Q4H PRN PRN Reason: Pain Stop: 12/02/20 15:27 Last Admin: 11/06/20 17:52 Dose: 50 mg Documented by: Zolpidem Tartrate (Zolpidem Tartrate 5 Mg Tab) 5 mg PO HS PRN PRN Reason: Sleep Stop: 12/01/20 22:59 Last Admin: 11/06/20 22:26 Dose: 5 mg Documented by:
[2020-11-07] MEDS: traMADol HCL 50 MG TABLET PO PRN ×2 (17:48→21:46)
[2020-11-07] MEDS: ACETAMINOPHEN 325 MG TAB PO PRN (20:00)
[2020-11-07] MEDS: EZETIMIBE 10 MG TABLET PO SCH (21:43)
[2020-11-07] MEDS: ENOXAPARIN INJ 40 MG/0.4 ML SYR SQ SCH (21:45)
[2020-11-07] MEDS: ZOLPIDEM TARTRATE 5 MG TAB PO PRN (21:46)
[2020-11-07] MEDS: BACLOFEN 10 MG TAB PO PRN (21:46)
[2020-11-08] MEDS: CIPROFLOXACIN / D5W 400 MG/200 ML BAG IV SCH (07:24)
[2020-11-08] MEDS: amLODIPine BESYLATE 5 MG TAB PO SCH (07:26)
[2020-11-08] MEDS: ASPIRIN 81 MG ECTAB PO SCH (07:26)
[2020-11-08] MEDS: LIDOCAINE 5% 1 PATCH TD SCH (07:26)
[2020-11-08] MEDS: PANTOprazole 40 MG TAB PO SCH (07:26)
[2020-11-08] MEDS: GABAPENTIN 100 MG CAP PO SCH (07:26)
[2020-11-08] MEDS: CARBIDOPA/LEVODOPA 25/100MG TAB PO SCH (07:26)
[2020-11-08] MEDS: ISOSORBIDE MONO EXTENDED REL 30 MG TABCR PO SCH (07:26)
--- NOTE | 2020-11-08 09:00 | Discharge Summary ---
Date of Service November 08, 2020 Admission HPI Per Admitting Provider Pt is 75 y/o F with PMH HTN, dyslipidemia, hypothyroidism, anemia, recurrent UTI, recurrent falls, Parkinson, insomnia, GERD, spinal stenosis, chronic back pain, CKD III and others listed below presented to ER for complaint of hematuria. Patient presents via EMS from her son's house. EMS report [id number] had noted hematuria, blood in patient's depends and foul- smelling urine. Patient also complains of left shoulder pain. She reports history of left frozen shoulder and history of shoulder replacement. Pt also c/o bilateral leg pain from knees to feet. Acahffea-nw-wki was looking for possible placement to [facility]. Patient reports last fall was on September 22, 2020. She states she was seen at [facility] 09/22/20-09/26/20 for sepsis, UTI - pansensitive e coli treated with Rocephin and d/c on Ceftin, Blood cultures were negative, FRANC, recurrent falls, ambulatory dysfunction and then was discharged to [facility]. Discharge summary reports pt with prior hospitalizations for falls and SNF was recommended however pt refused. Patient states at baseline uses wheelchair and rolling walker. Reports prior to going to skilled nursing was able to transfer however reports increased difficulty now. Patient follows with Dr. Robles. Last office note from 09/18/20 stated that patient had not been taking omeprazole, amlodipine, atenolol, levothyroxine, iron, potassium supplement. Reports that she had Toviaz filled 07/24/2020, Macrobid- filled 02/11/2020, Sinemet last filled 09/10/2019. Patient was also advised to avoid Benadryl for insomnia. Discharge med list from [facility] listed pt meds: Isosorbide mononitrate 30 mg daily, albuterol as needed, gabapentin 100 mg twice daily, ezetimibe 10 mg at bedtime, amlodipine 10 mg daily, carbidopa levodopa 25/100 mg 3 times daily, Toviaz 4 mg daily, KCl 10 meq daily, pantoprazole 40 mg daily, tramadol 50 mg every 8 hours as needed. Denies fever/chills, diaphoresis, N/V/D/C, HALL, dizziness, syncope, vision changes, neck pain, CP, SOB, orthopnea, palpitations, cough, sore throat, choking, otalgia, rhinorrhea, abdominal pain, extremity edema, rashes, dysuria. In ER UA with 3+bacteria, >30 WBC, 3+leukocyte esterase, 2+ blood. Was given Rocephin 2GM IV. Lidocaine patch and tramadol also given for shoulder pain. Left shoulder xray without acute findings Admission Exam Per Admitting Provider General: no distress, overweight Head: normocephalic, atraumatic Eyes: conjunctiva non-injected, anicteric ENT: normal inspection external ears, nose, mucous membranes moist Neck: supple, trachea midline Lungs: clear, no respiratory distress, no wheezing/rhonchi/rales CV: distant heart sounds and difficult auscultation, appear regular with ectopy, no JVD, no pretibial edema Abd: normal BS, soft, non-tender Ext: no cyanosis, no calf tenderness; left hand: fingers with contracture, limited ROM left shoulder, limited ROM legs, bilateral ankles with deformity, sensation to light touch intact distally Neuro: A&O x 3, masked faces, somewhat flat affect Skin: warm, dry Principal Diagnosis (1) UTI (urinary tract infection): (2) TIA (transient ischemic attack): (3) Ambulatory dysfunction: (4) Parkinson disease: (5) Hypertension: (6) Shoulder pain: (7) Abnormal EKG: (8) Hyperlipidemia: (9) Hypothyroidism: (10) CKD (chronic kidney disease), stage III: (11) GERD (gastroesophageal reflux disease): (12) Chronic back pain: Discharge Exam ROS-No Headache, No Visual Changes, No Nausea, No Vomiting, No Fever, No Chills, No Neck Pain or Stiffness, No Chest Pain, No Palpitations, No SOB, No RAPHAEL, No Cough, No Sputum, No Wheezing, No Abdominal Pain, No Diarrhea, No Hematemesis, No Hemoptysis, No Unexpected Weight Loss, No Flank pain, No Melena, No Hematochezia, No Frequency, No Urgency, No Burning, No Hematuria, No Rashes, No Diaphoresis. Appetite is Normal Physical Exam Gen-AAO x 3, NAD, Afebrile, Obese Head-NCAT, EOMI, PERRLA, Anicteric Sclera, No Posterior Pharyngeal Erythema Neck-Supple, No JVD, No Thyromegaly, No Masses, No LAD, No Bruits Lungs-Clear to Auscultation Bilaterally, No Rales, No Rhonchi, No Wheezing, No Crepitus Chest-No S4, +S1, +S2, No S3, No Murmurs, No Rubs, No Gallops, No Ectopy Abdomen-Soft, Bowel Sounds Present, Non Tender, Non Distended, No Hepatomegaly, No Splenomegaly, No Palpable Masses, No Rebound, No Rigidity, No Guarding Musculoskeletal-Full Range of Motion Bilaterally, No CVAT Extremities-No Cyanosis, No Clubbing, Trace Edema B/L, Ankle deformity Nuero-Cranial Nerves II-XII grossly intact, Motor WNL, DTRs WNL, Strength WNL, Non Focal Psych-Normal Mood Discharge Data Allergies Allergy/AdvReac Type Severity Reaction Status Date / Time bee venom protein (honey bee) Allergy Severe ANAPHYLAXIS Verified 11/01/20 19:20 shellfish derived Allergy Severe anaphylaxis Verified 11/01/20 19:20 Sulfa (Sulfonamide Allergy Severe ANAPHYLAXIS Verified 11/01/20 19:20 Antibiotics) Consultations 11/01/20 18:09 ED Decision to Admit Stat 11/04/20 08:00 Consult Neurology Routine Ordered Studies 11/03/20 20:37 CT head/brain wo con Stat 11/03/20 20:38 CT angio head w con Stat CT angio neck with con Stat 11/06/20 09:31 MR brain wo con Routine Current Diagnoses Hypothyroidism, unspecified (11/01/20) Hyperlipidemia, unspecified (11/01/20) Parkinson's disease (11/01/20) Transient cerebral ischemic attack, unspecified (11/01/20) Other chronic pain (11/01/20) Essential (primary) hypertension (11/01/20) Gastro-esophageal reflux disease without esophagitis (11/01/20) Pain in unspecified shoulder (11/01/20) Dorsalgia, unspecified (11/01/20) Chronic kidney disease, stage 3 unspecified (11/01/20) Urinary tract infection, site not specified (11/01/20) Difficulty in walking, not elsewhere classified (11/01/20) Abnormal electrocardiogram [ECG] [EKG] (11/01/20) Allergies bee venom protein (honey bee) Allergy (Severe, Verified 11/01/20 19:20) ANAPHYLAXIS shellfish derived Allergy (Severe, Verified 11/01/20 19:20) anaphylaxis Sulfa (Sulfonamide Antibiotics) Allergy (Severe, Verified 11/01/20 19:20) ANAPHYLAXIS Height/Weight/Isolation Height 5 ft 2 in Weight 82.9 kg Hospital Course (1) UTI (urinary tract infection): Pt is 75 y/o F with PMH HTN, dyslipidemia, hypothyroidism, anemia, recurrent UTI, recurrent falls, Parkinson, insomnia, GERD, spinal stenosis, chronic back pain, CKD III and others listed below presented to ER for complaint of hematuria, foul smelling urine. H/O UTI 09/22/2020, treated at [facility] with Rocephin x3 days and discharged on Ceftin, urine culture pansensitive E. coli In ER patient was afebrile, vitals stable, BUN: 17, Cr: 0.61 UA:3+bacteria, >30 WBC, 3+leukocyte esterase, 2+ blood. Was given Rocephin 2GM IV Urine culture is growing Cipro back to her formulary and probable Enterococcus. Awaiting sensitivity for Enterococcus-sensitive to current antibiotic ciprofloxacin Hold chronic nitrofurantoin Ceftriaxone has been changed to intravenous ciprofloxacin Awaiting further sensitivity Symptomatically much better-we will continue intravenous ciprofloxacin for now EKG did not show any increase in QT Denies any urinary symptoms We will change antibiotic to oral from tomorrow to finish a course of 7 to 10 days in total Transfer to [facility] today We will give oral Cipro to continue and finish the course of antibiotic (2) TIA (transient ischemic attack): Possible ischemic attack Apparent imaging studies with CT of the head, CTA of the head and neck are unremarkable Echo and MRI no acute findings Appreciate neurology input and recommendation We will continue with current treatment Doubt any stroke in the family members think that she has been at her baseline No more neurological symptoms except parkinsonism (3) Ambulatory dysfunction: (4) Parkinson disease: History of Parkinson's. Previously followed with Dr. Fields. Patient was referred to movement disorder clinic at [facility] however did not follow-up. Says that she remains in bed most of the time and cannot do much for herself Reports baseline uses wheelchair and wheeled walker Continue carbidopa/levodopa Will be transferred to [facility] this morning Has akinetic parkinsonism As per neurology and likely to need a tertiary care center evaluation for this For now we will continue PT and OT and possible placement Will be transferred to [facility] Discussed the son and the about dedicated mobility clinic evaluation down the line (5) Hypertension: Continue amlodipine (6) Shoulder pain: C/O Left shoulder pain. H/O frozen shoulder, arthroplasty Xray Shoulder: no acute changes lidocaine patch prn Bilateral foot pain Has stiffness with flexion or deformity of the ankle Awaiting orthotics for the leg and foot Left wrist pain Left hand is in a fist and she does not want to open it as she thinks her wrist is broken We will get an x-ray-no evidence of fracture (7) Abnormal EKG: EKG: very poor tracing making interpretation difficult. appears sinus rhythm with PVC Initial Troponin negative. Denies CP, SOB Trend troponin-negative Repeat EKG in am-abnormal EKG due to Parkinson's disease No evidence of QT prolongation (8) Hyperlipidemia: Patient denied statin use in past Continue ezetimibe (9) Hypothyroidism: TSH: 1.4 Does not appear that patient has been taking levothyroxine. Last prescribed 11/2019 (10) CKD (chronic kidney disease), stage III: Cr: 0.6. ~Baseline 0.8 Monitor renal functions, avoid nephrotoxic agents when possible (11) GERD (gastroesophageal reflux disease): Continue PPI (12) Chronic back pain: Continue gabapentin, baclofen DVT Prophylaxis -Lovenox SQ 11/02/2020 The patient was seen and examined in medical telemetry unit She has significant Parkinson's disease and has been almost bedbound at home She has had UTI 1 22 September and was treated with Rocephin and Ceftin She was brought in with hematuria and foul-smelling urine and noted to have another UTI Complaints of weakness and some nonspecific pain in the feet and hands 11/03/2020 The patient was seen and examined in medical telemetry unit She complains to have some pain in the legs and feet Denies any dysuria, fever and no chills 11/04/2020 The patient was seen and examined in medical telemetry unit She has nonspecific complaints involving pain more or less all over the body and all the joints Complains today of numbness in left upper extremity and inability to open the fist on the left side Denies any chest pain, palpitation or shortness of breath Denies any headache and blurred vision 11/05/2020 The patient was seen and examined in medical telemetry unit She has been feeling much better and is out of bed on a chair She complains to have ongoing pain in the left shoulder and bilateral feet She wants to walk around even with the walker 11/06/2020 The patient was seen and examined in medical telemetry unit She remains stable but still complains of pain in the left upper extremity and and bilateral feet Denies any more episodes of speech and/or weakness Awaiting MRI 11/07& The patient was seen and examined in medical telemetry unit She remains stable and still complains some pain in the left upper extremity and bilateral feet Her MRI has been negative for any stroke She will be transferred to [facility] this afternoon Total Time Total Time Spent Total Time Spent (In Minutes): 45 mins Total Time Includes: Examination of the Patient, Discharge Planning, Medication Reconciliation and Communication With Other Providers Discharge Plan Discharge Items Patient Disposition: Transfer Snf Fac Reason For Visit: UTI Discharge Diagnosis: (1) UTI (urinary tract infection): (2) TIA (transient ischemic attack): (3) Ambulatory dysfunction: (4) Parkinson disease: (5) Hypertension: (6) Shoulder pain: (7) Abnormal EKG: (8) Hyperlipidemia: (9) Hypothyroidism: (10) CKD (chronic kidney disease), stage III: (11) GERD (gastroesophageal reflux disease): (12) Chronic back pain Condition on Discharge: Fair Health Concerns: Declining condition from PD Activity: Resume your previous activity Lifting: None Bathing: No limitations Exercise/Sports: None Weightbearing Comment: Eval and treat Non-emergency contact: Primary Care Provider and Neurologist Call non-emergency contact if: you have any medication questions Follow-up/Referrals: Soledad Jorge MD [Primary Care Provider] - Diet: Heart Healthy Diet Texture: Easy to Chew Diet Comment: Mixed and Minced Addtl Attending Provider Instructions: None Pending Studies at Discharge: No Stand-Alone Forms: My [employer] Skilled Items Patient informed of condition?: Yes DNR: No Discharge Level of Care: Skilled Communicable Disease: No Discharge Prognosis: Improving Lines: None Urinary Catheter: No Medications and DC Order Prescriptions: New enoxaparin 40 mg/0.4 mL Syringe 40 mg subcut Q24H Qty: 4 RF: 0 aspirin 81 mg Tablet,Delayed Release (Dr/Ec) 81 mg PO QAM Qty: 30 RF: 0 tramadol 50 mg Tablet 50 mg PO Q4H PRN (Reason: pain) Qty: 10 RF: 0 zolpidem 5 mg Tablet 5 mg PO HS PRN (Reason: sleep) Qty: 10 RF: 0 polyethylene glycol 3350 [Miralax] 17 gram Powder In Packet 17 g PO DAILY Qty: 6 RF: 0 ciprofloxacin HCl [Cipro] 500 mg tablet 500 mg PO BID Qty: 14 RF: 0 Continued potassium chloride 10 mEq Capsule, Extended Release 10 meq PO BID RF: 0 acetaminophen 500 mg Tablet 1,000 mg PO BID RF: 0 amlodipine 10 mg Tablet 10 mg PO QAM RF: 0 ferrous sulfate 325 mg (65 mg iron) Tablet 325 mg PO QAM RF: 0 carbidopa-levodopa 25-100 mg Tablet 1 tab PO TID RF: 0 omeprazole 20 mg Tablet,Delayed Release (Dr/Ec) 20 mg PO QAM RF: 0 Toviaz 4 mg Tablet Extended Release 24 Hr 4 mg PO QAM RF: 0 isosorbide mononitrate 30 mg tablet extended release 24 hr 30 mg PO QAM RF: 0 albuterol sulfate 90 mcg/actuation Hfa Aerosol Inhaler 1 inh INHALATION Q4H PRN (Reason: Shortness Of Breath Or Wheezing) RF: 0 gabapentin 100 mg capsule 100 mg PO BID RF: 0 lidocaine [Aspercreme (lidocaine HCl)] 4 % Adhesive Patch,Medicated 1 patch TOPICAL DAILY RF: 0 ezetimibe 10 mg tablet 10 mg PO HS RF: 0 lactase [Dairy-Aid] 3,000 unit Tablet 3,000 unit PO AC PRN (Reason: Gi Upset) RF: 0 alum-mag hydroxide-simeth [Mi-Acid] 400-400-40 mg/5 mL Suspension 30 ml PO Q4H PRN (Reason: Nausea) RF: 0 baclofen 10 mg tablet 10 mg PO BID PRN (Reason: Spasms) RF: 0 Discontinued nitrofurantoin macrocrystal 100 mg Capsule 100 mg PO HS RF: 0 acetaminophen 325 mg Tablet 650 mg PO Q4H MDD 3G PRN (Reason: Fever Or Pain) RF: 0 zolpidem 5 mg tablet 5 mg PO HS PRN (Reason: Insomnia) RF: 0 Discharge Orders: Discharge Order (Routine); Ordered 11/08/20 Ordered By: Dillon Dominguez Admission Data Admit Date/Time: 11/01/20 18:03 Attending Provider: Dillon Dominguez Admit Provider: Earl Dickey Primary Care Provider: Soledad Jorge Other Providers: Earl Dickey ; Janette Kim I. ; [facility] ; Joey Pederson at [place] ; Phyllis Lanier ; Julio C Fairchild ; Phyllis Fields ; Brice Landrum.
== END 2020-11-08 10:35 | DRG 690 ==
LOC: ED 12:56 → SUATTDRO 18:03 → 2W 18:03

== ENCOUNTER 2021-02-15 11:50 | Inpatient (IN) ==
[2021-02-15] MEDS ORDERED: fentaNYL citrate 100 MCG/2 ML VIAL IV STA (12:35)
--- NOTE | 2021-02-15 12:51 | XRay Report ---
XR knee LT 1 or 2V routine CLINICAL HISTORY: left knee locked, prior replacement COMPARISON: Left knee radiographs August 06, 2018. FINDINGS: Left knee arthroplasty is noted. No periprosthetic fracture or lucency is noted. There is no joint effusion. Exam is compromised given patient's inability to extend. Apparent subluxation coul d be positional. IMPRESSION: 1. Status post total left knee arthroplasty. No periprosthetic fracture. No joint effusion. 2. Apparent subluxation of the left knee arthroplasty, as described above. Although this could be pos itional, subluxation cannot be excluded. ACT 112: Negative or not required by law. Electronically signed by: David Spring M.D. 02/15/2021 12:49 PM
[2021-02-15 12:52] LABS: Basophils # (auto) 0.02 K/uL (0-0.2); Basophils % (auto) 0.2 %; Eosinophils # (auto) 0.07 K/uL (0-0.5); Eosinophils % (auto) 0.7 %; Hematocrit (blood only) 38.1 % (37-47); Hemoglobin 12.1 g/dL (12.0-16.0); Immature Granulocytes # (auto) 0.02 K/uL (0.00-0.02); Immature Granulocytes % (auto) 0.2 %; Lymphocytes # (auto) 1.09 K/uL (1.2-3.4); Lymphocytes % (auto) 10.7 %; Mean Corpuscular Hemoglobin 27.5 pg (25-34); Mean Corpuscular Hgb Conc 31.8 g/dL (32-36); Mean Corpuscular Volume 86.6 fL (80-100); Mean Platelet Volume 9.7 fL (7.4-10.4); Monocytes # (auto) 0.47 K/uL (0.11-0.59); Monocytes % (auto) 4.6 %; Neutrophils # (auto) 8.53 K/uL (1.4-6.5); Neutrophils % (auto) 83.6 %; Platelet Count 353 K/uL (130-400); RDW Coefficient of Variation 13.2 % (11.5-14.5); RDW Standard Deviation 42.1 fL (36.4-46.3)
[2021-02-15 13:12] LABS: Albumin Level 3.1 gm/dl (3.4-5.0); Calcium 9.1 mg/dl (8.5-10.1); Creatinine Clr Calc Pharmacy 68.1 ml/min; Est GFR (African American) 90.4 ml/min
[2021-02-15 13:15] LABS: Albumin Globulin Ratio 0.8 (0.9-2); Bilirubin,Total 0.5 mg/dl (0.2-1); Globulin 3.8 gm/dl (2.5-4.0); Total Protein 6.9 gm/dl (6.4-8.2)
--- NOTE | 2021-02-15 13:25 | XRay Report ---
XR hip LT 2V w pelvis CLINICAL HISTORY: left hip pain COMPARISON STUDY: Left femur 07/07/2017. FINDINGS: No fracture or dislocation within the pelvis or hips. The sacrum is intact. Moderate osteoa rthritis within the bilateral hips and mild degenerative changes within the bilateral sacroiliac join ts. IMPRESSION: 1. No fractures within the pelvis or hips. 2. Moderate bilateral hip osteoarthritis. ACT 112: Negative or not required by law. Electronically signed by: Alfonzo Sparrow M.D. 02/15/2021 1:23 PM
[2021-02-15] MEDS ORDERED: traMADol HCL 50 MG TABLET PO STA (13:37)
[2021-02-15] MEDS ORDERED: ACETAMINOPHEN 500 MG TAB PO STA (13:37)
[2021-02-15 14:06] LABS: Appearance Urine Turbid (Clear); Bacteria Urine Automated 2+ (Negative); Blood Urine 3+ (Negative); Color Urine Dark Yellow; Epithelial Cell Urine Auto >30 /lpf (0-5); Glucose Urine UA Negative (Negative); Ketones Urine Trace (Negative); Leukocyte Esterase Urine 2+ (Negative); Nitrite Urine Positive (Negative); Protein Urine 2+ (Negative); Specific Gravity Urine 1.029 (1.000-1.030); Urobilinogen Urine Negative (Negative); WBC Urine Automated >30 /hpf (0-5)
[2021-02-15 14:07] LABS: Bilirubin Urine 1+ (Negative)
[2021-02-15 14:24] LABS: RBC Urine Automated >30 /hpf (0-4)
[2021-02-15] MEDS ORDERED: CEFEPIME 2,000 MG/20 ML VIAL IV STA (14:38)
[2021-02-15] MEDS ORDERED: MoRPHine SULFATE 2 MG/ML CARP IV STA (16:00)
--- NOTE | 2021-02-15 16:35 | History & Physical Report ---
Date of Service February 15, 2021 Assessment & Plan (1) Left knee pain: (2) Ambulatory dysfunction: (3) Chronic indwelling Cheng catheter: (4) UTI (urinary tract infection): (5) Parkinson disease: (6) CMT (Fnrrtrt-Ryqes-Jbcdr disease): (7) Hypertension: (8) CKD (chronic kidney disease), stage III: Plan: This is a 76-year-old female who has significant past medical history of parkinsonism, Jbqtzuw-Bkjae-Unwol disease, HTN, HLD, history of TIA, somatic symptom disorder, CKD stage III, chronic indwelling Cheng catheter, history of recurrent UTIs, chronic back pain wheelchair-bound who presents to ED secondary to left knee pain and inability to bend left leg x1 day. 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 Right ankle surgery done in November and left done on 01/[address] Crain of orthopedics [facility] Chronic Pain Admit to MedSurg Consult PT/OT Consult orthopedics due to left knee pain, questionable subluxation of prior knee replacement versus positioning Patient with chronic pain, continue regiment of tramadol, gabapentin, diclofenac gel, baclofen Pt was also to have tendon release to L hand, but this was postponed due to ? TIA UTI Chronic indwelling Cheng Replace Cheng catheter Received IV cefepime in ED, continue until urine culture returns No signs of SIRS/Sepsis Possible chronic in nature, follows [facility] urology Parkinson disease continue sinemet, baclofen Pt/OT consulted HTN Continue amlodipine, Imdur Somatic symptom disorder Continue Lamictal at bedtime Follow with psych while at [facility] CKD-3 monitor renal function avoid nephrotoxic agents Dispo: med/surg, pt will need PT/OT evals, may need SNF placement, recently d/c from [facility] and lives with son and DIL FULL CODE PCP: Dr. Robles Pt was seen and examined in collaboration with Dr. Dickey, please see addendum History of Present Illness Chief Complaint: L knee pain, R ankle and back pain x 1 day. Primary Care Provider: Soledad Jorge MD This is a 76-year-old female who has significant past medical history of parkinsonism, Cykoyjf-Sfqtq-Qjsqu disease, HTN, HLD, history of TIA, somatic symptom disorder, CKD stage III, chronic indwelling Cheng catheter, history of recurrent UTIs, chronic back pain wheelchair-bound who presents to ED secondary to left knee pain and inability to bend left leg x1 day. Of significance patient has had bilateral total knee replacements. Her left knee was replaced by a physician in [place]. Her right knee was replaced by Dr. Warren. She has also had a history of cervical fusion and lumbar decompressive surgeries. In setting of her Kwbtzep-Fxmge-Skmbd disease and Parkinson's disease she has had tendon release surgeries, most specifically on 01/31 at [place] she underwent percutaneous left Achilles lengthening and percutaneous flexor tendon releases toes 1 through 5. In November she underwent right percutaneous tendon Achilles lengthening and right release of posterior tibial tendon, flexor tenotomies toes 1 through 5. Currently she is mostly wheelchair- bound and does not ambulate. In ED she remained hemodynamically stable. Her CBC and a CMP was generally unremarkable. Her urinalysis was concerning for UTI. Empirically she was started on IV cefepime due to previous cultures. Knee x-ray did reveal left total knee replacement intact but concern for possible subluxation versus positioning. Hip and pelvis x-ray was negative for acute fracture, but did reveal bilateral hip osteoarthritis. Given significant pain, lack of ability, concern for possible UTI and patient unable to care for self she recommended for admission. Allergies Allergy/AdvReac Type Severity Reaction Status Date / Time bee venom protein (honey bee) Allergy Severe ANAPHYLAXIS Verified 02/15/21 15:14 shellfish derived Allergy Severe anaphylaxis Verified 02/15/21 15:14 Sulfa (Sulfonamide Allergy Severe ANAPHYLAXIS Verified 02/15/21 15:14 Antibiotics) Home Medications Medication Instructions Recorded Confirmed Type carbidopa 25 mg-levodopa 100 mg 1 tab PO TID 06/21/19 02/15/21 History tablet ferrous sulfate 325 mg (65 mg 325 mg PO QDL 06/21/19 02/15/21 History iron) tablet ezetimibe 10 mg tablet 10 mg PO HS 11/01/20 02/15/21 History isosorbide mononitrate 30 mg 30 mg PO QAM 11/01/20 02/15/21 History tablet,extended release 24 hr lactase 3,000 unit tablet 3,000 unit PO AC 11/01/20 02/15/21 History docusate sodium 100 mg capsule 100 mg PO DAILY PRN 11/16/20 02/15/21 History acetaminophen 325 mg capsule 650 mg PO Q4H PRN cap MDD 3 12/20/20 02/15/21 History GRAMS/24 HOURS. acetaminophen 500 mg tablet 1,000 mg PO BID tab 12/20/20 02/15/21 History (Tylenol Extra Strength) albuterol sulfate 2.5 mg/0.5 mL 5 mg INHALATION Q4H PRN 12/20/20 02/15/21 History solution for nebulization amlodipine 10 mg tablet 10 mg PO DAILY 12/20/20 02/15/21 History aspirin 81 mg tablet,delayed 81 mg PO DAILY 12/20/20 02/15/21 History release (Adult Aspirin Regimen) baclofen 10 mg tablet 10 mg PO QID 12/20/20 02/15/21 History diclofenac sodium 1 % topical gel 4 g TOPICAL QID 12/20/20 02/15/21 History fesoterodine 4 mg tablet,extended 4 mg PO QAM 12/20/20 02/15/21 History release 24 hr (Toviaz) lamotrigine 25 mg tablet (Lamictal) 75 mg PO HS 12/20/20 02/15/21 History lidocaine 4 % topical patch 1 patch TOPICAL DAILY 12/20/20 02/15/21 History (Aspercreme (lidocaine)) melatonin 5 mg capsule 5 mg PO HS cap 12/20/20 02/15/21 History omeprazole 20 mg capsule,delayed 20 mg PO DAILY 12/20/20 02/15/21 History release polyethylene glycol 3350 17 17 g PO DAILY PRN 12/20/20 02/15/21 History gram/dose oral powder (Miralax) potassium chloride 10 mEq 10 meq PO BID 12/20/20 02/15/21 History tablet,extended release tramadol 50 mg tablet 50 mg PO Q4H PRN tab 12/20/20 02/15/21 History gabapentin 600 mg tablet 900 mg PO TID 02/15/21 02/15/21 History Past Med/Surg History Medical History Ambulatory dysfunction Anemia Chronic anticoagulation Chronic back pain Chronic knee pain after total replacement of left knee joint Chronic left shoulder pain Chronic pain CKD (chronic kidney disease), stage III CMT (Ftklzgb-Evgci-Nwtym disease) Degenerative disc disease 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 GERD (gastroesophageal reflux disease) Hearing loss Hearing loss in left ear Hyperlipidemia Hypertension Hypothyroidism Insomnia Lactose intolerance Migraine Nausea and vomiting after administration of anesthetic agent Osteoarthritis Parkinson disease Recurrent UTI Renal lesion Repeated falls Spinal stenosis Transient cerebral ischemia Trigeminal neuralgia Unspecified abnormalities of gait and mobility Surgical History History of appendectomy History of bilateral cataract extraction History of bilateral tubal ligation History of bladder surgery botox injections into bladder History of bladder suspension procedure x2 History of brain surgery "microvascular decompression" X2 @ [facility] 2009? History of colonoscopy with polypectomy History of dilatation and curettage History of esophagogastroduodenoscopy (EGD) History of fusion of cervical spine C3-C6; normal ROM History of left breast biopsy x2--benign History of lumbar discectomy L4-L5 History of mandibular surgery x2 2007 after accident--1st time wired shut 2nd sx metal jaw put in---normal ROM History of open reduction and internal fixation (ORIF) procedure right ankle History of partial hysterectomy History of shoulder surgery x4 on left History of surgery brain stimulator removed 1 yr after placed History of surgery on arm right x2 d/t dog bite History of surgery on right wrist fx repair, no hardware History of tooth extraction History of total left knee replacement (TKR) History of total right knee replacement (TKR) History of wisdom tooth extraction Status post correction of deviated nasal septum Status post deep brain stimulator placement 2010 @ [facility] Family History Son Family history of reaction to anesthesia nausea/vomiting Family history of diabetes mellitus Son Family history of reaction to anesthesia nausea/vomiting Son Family history of reaction to anesthesia nausea/vomiting Father Family history of diabetes mellitus Mother Family history of diabetes mellitus Family hx of colon cancer Grandmother (Paternal) Family history of diabetes mellitus Social History Smoking Status: Unknown if ever smoked Second Hand Exposure: No; Hx Alcohol Use: No Hx Substance Use: No Preferred Language: Namibian Communication Ability: Effective Visual Impairment: No Limitations Hearing Ability: Normal 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 Riding 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 Required: No Beliefs That Will Affect Care: None marital status: Unknown Current Living Situation: Family Current Living Situation Comment: lives with son and DIL current occupational status: retired Feels Safe at Home: Yes Assistive Devices: Mechanical Lift Review of Systems Review of Systems: All systems reviewed & are unremarkable except as noted in HPI & below Physical Exam Physical Exam: Constitutional: WD/WN, Obese, F, chronically ill appearing, vitals as above, NAD, sitting up in bed, answers questions appropriately Head: Normocephalic, Atraumatic Eyes: PERRL, conjunctivae normal, anicteric sclerae ENMT: external ear and nose normal, oropharynx normal mucus membranes dry Neck: trachea midline, no thyromegaly normal visual inspection Respiratory: normal respiratory effort, lungs clear to auscultation, no wheeze, rales, rhonchi. Normal insp/exp effort, no accessory muscle use Cardiovascular: RRR, no murmur, obese lower ext Vessels: no JVD or carotid bruit Chest: normal inspection of chest Abdomen: normal bowel sounds, soft, nontender, no hepatosplenomegaly Musculoskeletal: no cyanosis or clubbing, arom to b/l upper ext, RLE with camboot in place, LLE with knee flexed, in pain, incisions to volar aspect of L toes, Achilles healing well, no erythema Skin: no rashes, warm and dry normal turgor Neurologic: PERRL, EOMI, accommodation nl, no face palsy, no dysarthria CN's II-XI intact bilaterally and moves all extremities Psychiatric: A+Ox3, euthymic affect Lymphatic: no cervical or axillary lymphadenopathy : + cheng with yellow urine Results & Data Results & Data ([facility]) Vital Signs (Past 12 Hours) Vital Signs Temp Pulse Pulse Resp BP BP Pulse Ox 02/15/21 15:00 77 20 134/82 94 02/15/21 13:32 75 16 123/73 95 02/15/21 11:50 36.8 C 77 16 139/77 95 Diagnostic Findings Knee X-Ray 02/15/21 12:06 XR knee LT 1 or 2V routine CLINICAL HISTORY: left knee locked, prior replacement COMPARISON: Left knee radiographs August 06, 2018. FINDINGS: Left knee arthroplasty is noted. No periprosthetic fracture or lucency is noted. There is no joint effusion. Exam is compromised given patient's inability to extend. Apparent subluxation could be positional. IMPRESSION: 1. Status post total left knee arthroplasty. No periprosthetic fracture. No joint effusion. 2. Apparent subluxation of the left knee arthroplasty, as described above. Although this could be positional, subluxation cannot be excluded. ACT 112: Negative or not required by law. Electronically signed by: David Spring M.D. 02/15/2021 12:49 PM Hip/Pelvis X-Ray 02/15/21 12:30 XR hip LT 2V w pelvis CLINICAL HISTORY: left hip pain COMPARISON STUDY: Left femur 07/07/2017. FINDINGS: No fracture or dislocation within the pelvis or hips. The sacrum is intact. Moderate osteoarthritis within the bilateral hips and mild degenerative changes within the bilateral sacroiliac joints. IMPRESSION: 1. No fractures within the pelvis or hips. 2. Moderate bilateral hip osteoarthritis. ACT 112: Negative or not required by law. Electronically signed by: Alfonzo Sparrow M.D. 02/15/2021 1:23 PM Medications Administered Medication List Discontinued Medications Acetaminophen (Acetaminophen 500 Mg Tab) 1,000 mg PO NOW STA Stop: 02/15/21 13:38 Last Admin: 02/15/21 13:46 Dose: 1,000 mg Documented by: [id number] Fentanyl Citrate (Fentanyl Citrate 100 Mcg/2 Ml Vial) 50 mcg IV NOW STA Stop: 02/15/21 12:36 Last Admin: 02/15/21 13:01 Dose: 50 mcg Documented by: [id number] Cefepime HCl (Maxipime) 2,000 mg in 20 mls @ 5 mls/min IV NOW STA Stop: 02/15/21 14:41 Last Admin: 02/15/21 14:59 Dose: 5 mls/min Documented by: [id number] Morphine Sulfate (Morphine Sulfate 2 Mg/Ml Carp) 2 mg IV NOW STA Stop: 02/15/21 16:01 Last Admin: 02/15/21 16:20 Dose: 2 mg Documented by: [id number] Tramadol HCl (Tramadol Hcl 50 Mg Tablet) 50 mg PO NOW STA Stop: 02/15/21 13:38 Last Admin: 02/15/21 13:46 Dose: 50 mg Documented by: [id number] COVID-19 Results Results COVID-19 Adm Lab Results: RBC 4.40 M/uL (4.2-5.4) 02/15/21 WBC 10.20 K/uL (4.8-10.8) 02/15/21 Hgb 12.1 g/dL (12.0-16.0) 02/15/21 Hct 38.1 % (37-47) 02/15/21 Plt Count 353 K/uL (130-400) 02/15/21 Neutrophils (%) (Auto) 83.6 % 02/15/21 Lymphocytes (%) (Auto) 10.7 % 02/15/21 Monocytes # (Auto) 0.47 K/uL (0.11-0.59) 02/15/21 Eosinophils # (Auto) 0.07 K/uL (0-0.5) 02/15/21 Immature Granulocyte % (Auto) 0.2 % 02/15/21 Neutrophils # (Auto) 8.53 K/uL (1.4-6.5) H 02/15/21 Lymphocytes # (Auto) 1.09 K/uL (1.2-3.4) L 02/15/21 Monocytes # (Auto) 0.47 K/uL (0.11-0.59) 02/15/21 Eosinophils # (Auto) 0.07 K/uL (0-0.5) 02/15/21 Basophils # (Auto) 0.02 K/uL (0-0.2) 02/15/21 Immature Granulocyte # (Auto) 0.02 K/uL (0.00-0.02) 02/15/21 Na 140 mmol/L (136-145) 02/15/21 K 4.0 mmol/L (3.5-5.1) 02/15/21 Cl 108 mmol/L (98-107) H 02/15/21 CO2 25 mmol/L (21-32) 02/15/21 Anion Gap 7.0 (3-11) 02/15/21 BUN 14 mg/dl (7-18) 02/15/21 Creatinine 0.75 mg/dl (0.6-1.2) 02/15/21 BUN/Creatinine Ratio 19.0 (10-20) 02/15/21 Glucose Level 102 mg/dl (70-99) H 02/15/21 Ca 9.1 mg/dl (8.5-10.1) 02/15/21 Total Bilirubin 0.5 mg/dl (0.2-1) 02/15/21 AST/SGOT 10 U/L (15-37) L 02/15/21 ALT/SGPT 9 U/L (12-78) L 02/15/21 Alkaline Phosphatase 110 U/L (45-117) 02/15/21 Total Protein 6.9 gm/dl (6.4-8.2) 02/15/21 Albumin 3.1 gm/dl (3.4-5.0) L 02/15/21 Globulin 3.8 gm/dl (2.5-4.0) 02/15/21 Albumin/Globulin Ratio 0.8 (0.9-2) L 02/15/21 COVID-19 PCR NEGATIVE (Negative) 02/15/21 Code Status & VTE Plan Code Status Full code VTE Prophylaxis Plan VTE Prophylaxis will be ordered: Yes Supervising Physician Co-Signing Physician Notes Patient is a 76-year-old female with history of Parkinson's, Ebauwzk-Witck-Tfcun disease, TIA and other medical problems presents with history of left knee pain and decreased range of movement since 1 day duration. Patient had knee replacement in the past. She states being wheelchair-bound and has not been ambulating for many months. Please review HPI for complete details of presentation. Also reports having hip pain. Knee x-ray suggestive of subluxation of the left knee arthroplasty. Hip x-ray showed no acute fractures. On exam patient is chronically appearing, mild distress secondary to pain, normocephalic atraumatic, EOMI, lungs are clear to auscultation, normal breath sounds, S1-S2, no murmur, abdomen soft, nontender, normal bowel sounds, alert, awake, oriented, left lower extremity decreased range of movement inability to flex left knee, left lower extremity edema noted,+ upper extremity arthritic changes. Patient is admitted for management of left knee pain. Will consult orthopedics for further management of subluxation of the knee arthroplasty. Pain control. Fall precautions. Agree with starting IV antibiotics for possible UTI. Continue home medications for Parkinson's. I personally reviewed the record. Patient is interviewed and examined at bedside. Patient's care is coordinated with Estrella Zapsky PA-C. Please refer to the documentation above for details of patient's presentation and for discussion of other issues.
[2021-02-15] MEDS: MoRPHine SULFATE 2 MG/ML CARP IV PRN (19:55)
[2021-02-15] MEDS ORDERED: ALUMINUM/MAGNESIUM SUSP 30 ML UDC PO PRN (20:45)
[2021-02-15] MEDS ORDERED: CEFEPIME CONSULT ACTIVE SCH (20:45)
[2021-02-15] MEDS ORDERED: ONDANSETRON INJ 2 MG/ML 2 ML VIAL IV PRN (20:45)
[2021-02-15] MEDS ORDERED: MAGNESIUM HYDROXIDE SUSP 30 ML UDC PO PRN (20:45)
[2021-02-15] MEDS ORDERED: SODIUM CHLORIDE 0.9% 1000ML 1,000 ML IV SCH (20:45)
[2021-02-15] MEDS ORDERED: ALBUTEROL 0.5% NEB SOLN 2.5 MG/0.5 ML VIAL INH PRN (20:45)
[2021-02-15] MEDS ORDERED: POLYETHYLENE (MIRALAX) 17 GM PACK PO PRN (20:45)
[2021-02-15] MEDS: traMADol HCL 50 MG TABLET PO PRN (21:31)
[2021-02-15] MEDS: CARBIDOPA/LEVODOPA 25/100MG TAB PO SCH (21:47)
[2021-02-15] MEDS: DICLOFENAC SOD 1% GEL 100 GM TUBE EXT SCH ×2 (21:47)
[2021-02-15] MEDS: ACETAMINOPHEN 500 MG TAB PO SCH (21:47)
[2021-02-15] MEDS: TOVIAZ~ORDER AWAITING ACTION SCH ×2 (21:48→23:11)
[2021-02-15] MEDS: MELATONIN 3 MG TAB PO SCH (21:49)
[2021-02-15] MEDS: POTASSIUM CHLORIDE 10 MEQ TABCR PO SCH (21:49)
[2021-02-15] MEDS: GABAPENTIN 300 MG CAP PO SCH (21:50)
[2021-02-15] MEDS: EZETIMIBE 10 MG TABLET PO SCH (21:51)
[2021-02-15] MEDS: BACLOFEN 10 MG TAB PO SCH (21:51)
[2021-02-15] MEDS: lamoTRIgine 25 MG TAB PO SCH (21:52)
[2021-02-15] MEDS: ENOXAPARIN INJ 40 MG/0.4 ML SYR SQ SCH (21:53)
[2021-02-15] MEDS ORDERED: CEFEPIME 2,000 MG in SYRINGE 0 ML IV ONE (22:00)
[2021-02-16 01:46] LABS: Appearance Urine Cloudy (Clear); Bilirubin Urine Negative (Negative); Blood Urine 1+ (Negative); Color Urine Yellow; Epithelial Cell Urine Auto >30 /lpf (0-5); Glucose Urine UA Negative (Negative); Ketones Urine Negative (Negative); Leukocyte Esterase Urine 3+ (Negative); Nitrite Urine Negative (Negative); Protein Urine Negative (Negative); Specific Gravity Urine 1.013 (1.000-1.030); Urobilinogen Urine Negative (Negative); WBC Urine Automated >30 /hpf (0-5)
[2021-02-16 02:55] LABS: Calcium Oxalate Crystals Urine Present (None Prsent)
[2021-02-16 02:56] LABS: Bacteria Urine Automated 1+ (Negative)
[2021-02-16 02:57] LABS: RBC Urine Automated 0-4 /hpf (0-4)
[2021-02-16] MEDS: traMADol HCL 50 MG TABLET PO PRN (06:37)
[2021-02-16 07:00] LABS: Basophils # (auto) 0.03 K/uL (0-0.2); Basophils % (auto) 0.4 %; Eosinophils # (auto) 0.36 K/uL (0-0.5); Eosinophils % (auto) 5.1 %; Hematocrit (blood only) 37.8 % (37-47); Hemoglobin 11.8 g/dL (12.0-16.0); Immature Granulocytes # (auto) 0.02 K/uL (0.00-0.02); Immature Granulocytes % (auto) 0.3 %; Lymphocytes # (auto) 2.31 K/uL (1.2-3.4); Mean Corpuscular Hemoglobin 27.5 pg (25-34); Mean Corpuscular Hgb Conc 31.2 g/dL (32-36); Mean Corpuscular Volume 88.1 fL (80-100); Mean Platelet Volume 9.8 fL (7.4-10.4); Monocytes # (auto) 0.65 K/uL (0.11-0.59); Monocytes % (auto) 9.3 %; Neutrophils # (auto) 3.64 K/uL (1.4-6.5); Neutrophils % (auto) 51.9 %; Platelet Count 296 K/uL (130-400); RDW Coefficient of Variation 13.3 % (11.5-14.5); Red Blood Count 4.29 M/uL (4.2-5.4); White Blood Count 7.01 K/uL (4.8-10.8)
[2021-02-16 07:25] LABS: Albumin Level 2.7 gm/dl (3.4-5.0); BUN Creatinine Ratio 19.9 (10-20); Creatinine Clr Calc Pharmacy 64.9 ml/min; Est GFR (African American) 93.4 ml/min; Est GFR (Non-African American) 80.6 ml/min; Magnesium 1.7 mg/dl (1.8-2.4); Potassium 3.5 mmol/L (3.5-5.1)
[2021-02-16 07:28] LABS: Albumin Globulin Ratio 0.7 (0.9-2); Bilirubin,Total 0.5 mg/dl (0.2-1); Globulin 3.6 gm/dl (2.5-4.0); Total Protein 6.3 gm/dl (6.4-8.2)
[2021-02-16] MEDS ORDERED: INFLUENZA VACCINE HIGH DOSE PF 65+ 0.7 ML SYR IM ONE (08:00)
[2021-02-16] MEDS: ISOSORBIDE MONO EXTENDED REL 30 MG TABCR PO SCH (08:35)
[2021-02-16] MEDS: ASPIRIN 81 MG ECTAB PO SCH (08:36)
[2021-02-16] MEDS: LACTASE 3000 UNIT TAB PO SCH ×3 (08:36→16:21)
[2021-02-16] MEDS: BACLOFEN 10 MG TAB PO SCH ×5 (08:36→21:34)
[2021-02-16] MEDS: GABAPENTIN 300 MG CAP PO SCH ×4 (08:37→21:38)
[2021-02-16] MEDS: POTASSIUM CHLORIDE 10 MEQ TABCR PO SCH ×3 (08:37→21:38)
[2021-02-16] MEDS: amLODIPine BESYLATE 5 MG TAB PO SCH (08:37)
[2021-02-16] MEDS: PANTOprazole 40 MG TAB PO SCH (08:39)
[2021-02-16] MEDS: DOCUSATE SODIUM/SENNA 50/8.6MG TAB PO SCH (08:39)
[2021-02-16] MEDS: ACETAMINOPHEN 500 MG TAB PO SCH ×3 (08:39→21:34)
[2021-02-16] MEDS: TOVIAZ~ORDER AWAITING ACTION SCH ×3 (08:39→21:43)
[2021-02-16] MEDS: CARBIDOPA/LEVODOPA 25/100MG TAB PO SCH ×4 (08:42→21:37)
[2021-02-16] MEDS: DICLOFENAC SOD 1% GEL 100 GM TUBE EXT SCH ×4 (08:42→21:22)
[2021-02-16] MEDS: MoRPHine SULFATE 2 MG/ML CARP IV PRN (08:51)
--- NOTE | 2021-02-16 10:27 | CT Scan Report ---
LEFT KNEE CT CT DOSE: 205.86 mGy.cm HISTORY: Left knee pain. r/o subluxation/poly post broken/ metal sparing TECHNIQUE: Multiaxial CT images of the left knee were performed and reformatted in the sagittal and c oronal plane without the use of contrast. A dose lowering technique was utilized adhering to the excela healthDevaughn. COMPARISON: Left knee radiograph 02/15/2021. FINDINGS: No fracture or dislocation within the left knee. The left total knee arthroplasty. There is suboptimal evaluation of the prosthesis due to the motion artifact. However, hardware appears intact . No abnormal periprosthetic lucency. No joint effusion. No significant soft tissue swelling. Persist ent flexion of the knee. Punctate focus of gas within the distal femur posteriorly may be venous. Mil d vascular calcifications are noted. The polyethylene liner within the knee prosthesis is suboptimall y assessed due to the metallic artifact but does not appear to be significantly displaced. IMPRESSION: 1. Persistent flexion of the knee. 2. Left total knee arthroplasty. This is suboptimally assessed due to the metallic artifact. However, no definite evidence for hardware complication. 3. No fracture or dislocation. ACT 112: Negative or not required by law. Electronically signed by: Alfonzo Sparrow M.D. 02/16/2021 10:26 AM
[2021-02-16] MEDS ORDERED: MAGNESIUM SULFATE / D5W 1 GM/100 ML BAG IV ONE (10:30)
[2021-02-16] MEDS: CEFEPIME 2,000 MG in SYRINGE 0 ML IV SCH ×2 (10:46→22:09)
[2021-02-16] MEDS: FERROUS SULFATE 325 MG TAB PO SCH (10:52)
--- NOTE | 2021-02-16 11:27 | Orthopedic Consultation ---
Date of Consultation February 16, 2021 Assessment & Plan (1) Left knee pain: Will review x-ray and CT scan with Dr. Layne today. Continue n.p.o. status for now. Question need for examination under anesthesia. We have requested information from [facility] in regards to her left total knee prosthesis. History of Present Illness Reason for Consultation: Painful left knee with loss of range of motion; question subluxation Attending Physician: Earl Dickey MD History of Present Illness 76-year-old female who has significant past medical history of parkinsonism, Swbigug-Myfaj-Cehpv disease, HTN, HLD, history of TIA, somatic symptom disorder, CKD stage III, chronic indwelling Romeo catheter, history of recurrent UTIs, chronic back pain wheelchair-bound who presents to ED secondary to left knee pain and inability to bend left leg x1 day. Patient has had bilateral knee replacements in the past. The right knee was done by Dr. Bong Warren. The left knee in question was done by a physician in [place]. Currently, the patient states that she has been able to use the knee normally at her place of residence. She does not remember any type of fall or injury. She states that she cannot fully bend the knee at this time and it feels locked. She states that most of her pain is over the medial aspect of the knee. We have been asked to see her for her left knee pain and question of subluxation on x-ray. Allergies Allergy/AdvReac Type Severity Reaction Status Date / Time bee venom protein (honey bee) Allergy Severe ANAPHYLAXIS Verified 02/16/21 13:59 shellfish derived Allergy Severe anaphylaxis Verified 02/16/21 13:59 Sulfa (Sulfonamide Allergy Severe ANAPHYLAXIS Verified 02/16/21 13:59 Antibiotics) Home Medications Medication Instructions Recorded Confirmed Type carbidopa 25 mg-levodopa 100 mg 1 tab PO TID 06/21/19 02/15/21 History tablet ferrous sulfate 325 mg (65 mg 325 mg PO QDL 06/21/19 02/15/21 History iron) tablet ezetimibe 10 mg tablet 10 mg PO HS 11/01/20 02/15/21 History isosorbide mononitrate 30 mg 30 mg PO QAM 11/01/20 02/15/21 History tablet,extended release 24 hr lactase 3,000 unit tablet 3,000 unit PO AC 11/01/20 02/15/21 History docusate sodium 100 mg capsule 100 mg PO DAILY PRN 11/16/20 02/15/21 History acetaminophen 325 mg capsule 650 mg PO Q4H PRN cap MDD 3 12/20/20 02/15/21 History GRAMS/24 HOURS. acetaminophen 500 mg tablet 1,000 mg PO BID tab 12/20/20 02/15/21 History (Tylenol Extra Strength) albuterol sulfate 2.5 mg/0.5 mL 5 mg INHALATION Q4H PRN 12/20/20 02/15/21 History solution for nebulization amlodipine 10 mg tablet 10 mg PO DAILY 12/20/20 02/15/21 History aspirin 81 mg tablet,delayed 81 mg PO DAILY 12/20/20 02/15/21 History release (Adult Aspirin Regimen) baclofen 10 mg tablet 10 mg PO QID 12/20/20 02/15/21 History diclofenac sodium 1 % topical gel 4 g TOPICAL QID 12/20/20 02/15/21 History fesoterodine 4 mg tablet,extended 4 mg PO QAM 12/20/20 02/15/21 History release 24 hr (Toviaz) lamotrigine 25 mg tablet (Lamictal) 75 mg PO HS 12/20/20 02/15/21 History lidocaine 4 % topical patch 1 patch TOPICAL DAILY 12/20/20 02/15/21 History (Aspercreme (lidocaine)) melatonin 5 mg capsule 5 mg PO HS cap 12/20/20 02/15/21 History omeprazole 20 mg capsule,delayed 20 mg PO DAILY 12/20/20 02/15/21 History release polyethylene glycol 3350 17 17 g PO DAILY PRN 12/20/20 02/15/21 History gram/dose oral powder (Miralax) potassium chloride 10 mEq 10 meq PO BID 12/20/20 02/15/21 History tablet,extended release tramadol 50 mg tablet 50 mg PO Q4H PRN tab 12/20/20 02/15/21 History gabapentin 600 mg tablet 900 mg PO TID 02/15/21 02/15/21 History Patient History Medical History (Updated 02/16/21 @ 12:33 by Alfonzo Aranda MD) Ambulatory dysfunction Anemia Chronic anticoagulation Chronic back pain Chronic knee pain after total replacement of left knee joint Chronic left shoulder pain Chronic pain CKD (chronic kidney disease), stage III CMT (Ttfevne-Uecsv-Kzmiz disease) Degenerative disc disease 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 GERD (gastroesophageal reflux disease) Hearing loss Hearing loss in left ear Hyperlipidemia Hypertension Hypothyroidism Insomnia Lactose intolerance Migraine Nausea and vomiting after administration of anesthetic agent Obesity Osteoarthritis Parkinson disease Recurrent UTI Renal lesion Repeated falls Spinal stenosis Transient cerebral ischemia Trigeminal neuralgia Unspecified abnormalities of gait and mobility Surgical History History of appendectomy History of bilateral cataract extraction History of bilateral tubal ligation History of bladder surgery botox injections into bladder History of bladder suspension procedure x2 History of brain surgery "microvascular decompression" X2 @ [facility] 2010? History of colonoscopy with polypectomy History of dilatation and curettage History of esophagogastroduodenoscopy (EGD) History of fusion of cervical spine C3-C6; normal ROM History of left breast biopsy x2--benign History of lumbar discectomy L4-L5 History of mandibular surgery x2 2008 after accident--1st time wired shut 2nd sx metal jaw put in---normal ROM History of open reduction and internal fixation (ORIF) procedure right ankle History of partial hysterectomy History of shoulder surgery x4 on left History of surgery brain stimulator removed 1 yr after placed History of surgery on arm right x2 d/t dog bite History of surgery on right wrist fx repair, no hardware History of tooth extraction History of total left knee replacement (TKR) History of total right knee replacement (TKR) History of wisdom tooth extraction Status post correction of deviated nasal septum Status post deep brain stimulator placement 2010 @ [facility] Family History Son Family history of reaction to anesthesia nausea/vomiting Family history of diabetes mellitus Son Family history of reaction to anesthesia nausea/vomiting Son Family history of reaction to anesthesia nausea/vomiting Father Family history of diabetes mellitus Mother Family history of diabetes mellitus Family hx of colon cancer Grandmother (Paternal) Family history of diabetes mellitus Social History Smoking Status: Never smoker Second Hand Exposure: No; Hx Alcohol Use: No Hx Substance Use: No Preferred Language: [place] Islander Communication Ability: Effective Visual Impairment: No Limitations Hearing Ability: Normal [place] [employer] Guide Required: No Beliefs That Will Affect Care: None marital status: Unknown Current Living Situation: Family Current Living Situation Comment: lives with son and DIL current occupational status: retired Feels Safe at Home: Yes Safety Concerns: Feels Safe At This Time Assistive Devices: Walker Physical Exam Physical Exam: Patient is lying in bed sleeping upon arrival. She is easily awoken. She appears in no acute distress and she is pleasant and cooperative. On examination of her left knee, there is mild swelling compared to the right. There is no erythema and the knee does not feel overtly hot compared to the touch. She has some mild pain on palpation over the anterior portion of the knee as well as medial aspect. She has been keeping the left knee raised on a pillow. The knee is in slight flexion at this time. I am able to take her through gentle passive range of motion of the knee. I can get the knee almost to full extension with some discomfort. However, there is a flexion endpoint at about 20 to 30 degrees. At that point the patient asked me to stop manipulating her knee. There is some laxity with the collaterals. She does have a mild amount of laxity with anterior shifting. Results & Data ([facility]) Vital Signs (Past 12 Hours) Vital Signs Temp Pulse Resp BP Pulse Ox 02/16/21 07:24 36.7 C 60 16 121/76 95 Diagnostic Findings Patient: DEBBIE BONE Date: 02/15/21MR#: [id number]: [id number] [facility] RDAcct ID:[id number]: [facility]: [facility] Zip: [place], [place] [address]Elo: 76Location: 3NSex: FRoom/Bed: [id number] Phy: Earl Dickey MDDiagnosis: UTI, KNEE PAINPri Phy: Soledad Robles MDService Date: 02/16/21Fa Phy:Interpreting Phy: [facility]row [facility]: Earl Dickey MD Ordering Phy: Favio Ford PA-C cc: ~ LEFT KNEE CT CT DOSE: 205.86 mGy.cm HISTORY: Left knee pain. r/o subluxation/poly post broken/ metal sparing TECHNIQUE: Multiaxial CT images of the left knee were performed and reformatted in the sagittal and coronal plane without the use of contrast. A dose lowering technique was utilized adhering to the principles of ALARA. COMPARISON: Left knee radiograph 02/15/2021. FINDINGS: No fracture or dislocation within the left knee. The left total knee arthroplasty. There is suboptimal evaluation of the prosthesis due to the motion artifact. However, hardware appears intact. No abnormal periprosthetic lucency. No joint effusion. No significant soft tissue swelling. Persistent flexion of the knee. Punctate focus of gas within the distal femur posteriorly may be venous. Mild vascular calcifications are noted. The polyethylene liner within the knee prosthesis is suboptimally assessed due to the metallic artifact but does not appear to be significantly displaced. IMPRESSION: 1. Persistent flexion of the knee. 2. Left total knee arthroplasty. This is suboptimally assessed due to the metallic artifact. However, no definite evidence for hardware complication. 3. No fracture or dislocation. XR knee LT 1 or 2V routine CLINICAL HISTORY: left knee locked, prior replacement COMPARISON: Left knee radiographs August 06, 2018. FINDINGS: Left knee arthroplasty is noted. No periprosthetic fracture or lucency is noted. There is no joint effusion. Exam is compromised given patient's inability to extend. Apparent subluxation could be positional. IMPRESSION: 1. Status post total left knee arthroplasty. No periprosthetic fracture. No joint effusion. 2. Apparent subluxation of the left knee arthroplasty, as described above. Although this could be positional, subluxation cannot be excluded.
--- NOTE | 2021-02-16 13:22 | Anesthesiology Consultation ---
Date of Service February 16, 2021 Assessment & Plan Chart Review Chart Review: Acceptable Risk for Surgery and Patient NOT seen in Pre Admission Testing Consults Requested none ASA ASA4 Proposed Anesthesia Anesthesia Type: General Risk / Benefits Reviewed With: PT / POA / Parent / Guardian, Accepts Plan and Informed Consent Obtained History Surgery Operation Date: 02/16/21 11:40 Proposed Procedures p Exam under Anesthesia Left Locked Knee - Austin Layne, Height/Weight Height: 5 ft 2 in Weight: 79.2 kg Allergies Allergy/AdvReac Type Severity Reaction Status Date / Time bee venom protein (honey bee) Allergy Severe ANAPHYLAXIS Verified 02/15/21 15:14 shellfish derived Allergy Severe anaphylaxis Verified 02/15/21 15:14 Sulfa (Sulfonamide Allergy Severe ANAPHYLAXIS Verified 02/15/21 15:14 Antibiotics) Medications Home Medications Medication Instructions Recorded Confirmed Last Taken carbidopa 25 mg-levodopa 100 mg 1 tab PO TID 06/21/19 02/15/21 02/15/21 09:00 tablet ferrous sulfate 325 mg (65 mg 325 mg PO QDL 06/21/19 02/15/21 02/15/21 iron) tablet ezetimibe 10 mg tablet 10 mg PO HS 11/01/20 02/15/21 02/14/21 isosorbide mononitrate 30 mg 30 mg PO QAM 11/01/20 02/15/21 02/15/21 tablet,extended release 24 hr lactase 3,000 unit tablet 3,000 unit PO AC 11/01/20 02/15/21 02/15/21 12:00 docusate sodium 100 mg capsule 100 mg PO DAILY PRN 11/16/20 02/15/21 Unknown acetaminophen 325 mg capsule 650 mg PO Q4H PRN cap MDD 3 12/20/20 02/15/21 Unknown GRAMS/24 HOURS. acetaminophen 500 mg tablet 1,000 mg PO BID tab 12/20/20 02/15/21 02/15/21 08:00 (Tylenol Extra Strength) albuterol sulfate 2.5 mg/0.5 mL 5 mg INHALATION Q4H PRN 12/20/20 02/15/21 Unknown solution for nebulization amlodipine 10 mg tablet 10 mg PO DAILY 12/20/20 02/15/21 02/15/21 aspirin 81 mg tablet,delayed 81 mg PO DAILY 0802/15/21 02/15/21 release (Adult Aspirin Regimen) baclofen 10 mg tablet 10 mg PO QID 12/20/20 02/15/21 02/15/21 12:00 diclofenac sodium 1 % topical gel 4 g TOPICAL QID 12/20/20 02/15/21 02/15/21 12:00 fesoterodine 4 mg tablet,extended 4 mg PO QAM 12/20/20 02/15/21 02/15/21 release 24 hr (Toviaz) lamotrigine 25 mg tablet (Lamictal) 75 mg PO HS 12/20/20 02/15/21 02/14/21 lidocaine 4 % topical patch 1 patch TOPICAL DAILY 12/20/20 02/15/21 02/15/21 (Aspercreme (lidocaine)) melatonin 5 mg capsule 5 mg PO HS cap 12/20/20 02/15/21 02/14/21 omeprazole 20 mg capsule,delayed 20 mg PO DAILY 12/20/20 02/15/21 02/15/21 release polyethylene glycol 3350 17 17 g PO DAILY PRN 12/20/20 02/15/21 Unknown gram/dose oral powder (Miralax) potassium chloride 10 mEq 10 meq PO BID 12/20/20 02/15/21 02/15/21 08:00 tablet,extended release tramadol 50 mg tablet 50 mg PO Q4H PRN tab 12/20/20 02/15/21 Unknown gabapentin 600 mg tablet 900 mg PO TID 02/15/21 02/15/21 02/15/21 08:00 Active Medications Generic Name Dose Route Start Last Admin Trade Name Chandler PRN Reason Stop Dose Admin Acetaminophen 500 mg 02/15/21 21:30 02/16/21 08:39 Acetaminophen 500 Mg Tab PO 03/17/21 21:29 500 mg BID MARIBELL Administration Amlodipine Besylate 10 mg 02/16/21 09:00 02/16/21 08:37 Amlodipine Besylate 5 Mg Tab PO 03/18/21 08:59 10 mg DAILY MARIBELL Administration Aspirin 81 mg 02/16/21 09:00 02/16/21 08:36 Aspirin 81 Mg Ectab PO 03/18/21 08:59 81 mg DAILY MARIBELL Administration Baclofen 10 mg 02/15/21 21:00 02/16/21 13:06 Baclofen 10 Mg Tab PO 03/17/21 20:59 10 mg QID MARIBELL Administration Carbidopa/Levodopa 1 tab 02/15/21 21:00 02/16/21 13:08 Carbidopa/Levodopa 25/100mg Tab PO 03/17/21 20:59 1 tab TID MARIBELL Administration Diclofenac Sodium 4 gm 02/15/21 20:45 02/16/21 13:06 Diclofenac Sod 1% Gel 100 Gm Tube EXT 03/17/21 20:44 4 gm QID MARIBELL Administration Ezetimibe 10 mg 02/15/21 21:00 02/15/21 21:51 Ezetimibe 10 Mg Tablet PO 03/17/21 20:59 10 mg HS MARIBELL Administration Enoxaparin Sodium 40 mg 02/15/21 22:00 02/15/21 21:53 Enoxaparin Inj 40 Mg/0.4 Ml Syr SQ 03/17/21 21:59 40 mg Q24H MARIBELL Administration Ferrous Sulfate 325 mg 02/16/21 11:30 02/16/21 10:52 Ferrous Sulfate 325 Mg Tab PO 03/18/21 11:29 325 mg QDL MARIBELL Administration Gabapentin 900 mg 02/15/21 22:00 02/16/21 13:08 Gabapentin 300 Mg Cap PO 03/17/21 21:59 900 mg TID MARIBELL Administration Cefepime HCl 2,000 mg/ Syringe 20 mls @ 5 mls/min 02/16/21 10:00 02/16/21 10:46 IV 02/26/21 09:59 5 mls/min Q12H MARIBELL Administration Isosorbide Mononitrate 30 mg 02/16/21 09:00 02/16/21 08:35 Isosorbide [place] Extended Rel 30 Mg Tabcr PO 03/18/21 08:59 30 mg QAM MARIBELL Administration Lactase 3,000 units 02/16/21 07:30 02/16/21 10:53 Lactase 3000 Unit Tab PO 03/18/21 07:29 Not Given AC MARIBELL Lamotrigine 75 mg 02/15/21 21:00 02/15/21 21:52 Lamotrigine 25 Mg Tab PO 03/17/21 20:59 75 mg HS MARIBELL Administration Melatonin 4.5 mg 02/15/21 22:00 02/15/21 21:49 Melatonin 3 Mg Tab PO 03/17/21 21:59 4.5 mg HS MARIBELL Administration Miscellaneous 1 ea 02/15/21 21:30 02/16/21 08:39 Toviaz~Order Awaiting Action N/A 03/17/21 21:29 Not Given QS MARIBELL Morphine Sulfate 2 mg 02/15/21 19:43 02/16/21 08:51 Morphine Sulfate 2 Mg/Ml Carp IV 03/01/21 19:42 2 mg Q4H PRN Administration Pain Non-Formulary Medication 1 patch 02/16/21 09:00 02/16/21 08:43 Lidocaine [Aspercreme (Lidocaine Hcl)] TOP 03/18/21 08:59 Not Given DAILY MARIBELL Pantoprazole Sodium 40 mg 02/16/21 09:00 02/16/21 08:39 Pantoprazole 40 Mg Tab PO 03/18/21 08:59 40 mg DAILY MARIBELL Administration Potassium Chloride 10 meq 02/15/21 21:00 02/16/21 08:37 Potassium Chloride 10 Meq Tabcr PO 03/17/21 20:59 10 meq BID MARIBELL Administration Senna/Docusate Sodium 1 tab 02/16/21 09:00 02/16/21 08:39 Docusate Sodium/Senna 50/8.6mg Tab PO 03/18/21 08:59 1 tab QAM MARIBELL Administration Tramadol HCl 50 mg 02/15/21 20:45 02/16/21 06:37 Tramadol Hcl 50 Mg Tablet PO 03/17/21 20:44 50 mg Q4H PRN Administration severe pain Past Medical History Medical History (Updated 02/16/21 @ 12:33 by Alfonzo Aranda MD) Ambulatory dysfunction Anemia Chronic anticoagulation Chronic back pain Chronic knee pain after total replacement of left knee joint Chronic left shoulder pain Chronic pain CKD (chronic kidney disease), stage III CMT (Tvfsmyv-Osffc-Ctyen disease) Degenerative disc disease 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 GERD (gastroesophageal reflux disease) Hearing loss Hearing loss in left ear Hyperlipidemia Hypertension Hypothyroidism Insomnia Lactose intolerance Migraine Nausea and vomiting after administration of anesthetic agent Obesity Osteoarthritis Parkinson disease Recurrent UTI Renal lesion Repeated falls Spinal stenosis Transient cerebral ischemia Trigeminal neuralgia Unspecified abnormalities of gait and mobility Exercise / Class Metabolic Activity II 4-5 Yardwork/Stairs/Walk up hill Past Family History Family History Son Family history of reaction to anesthesia nausea/vomiting Family history of diabetes mellitus Son Family history of reaction to anesthesia nausea/vomiting Son Family history of reaction to anesthesia nausea/vomiting Father Family history of diabetes mellitus Mother Family history of diabetes mellitus Family hx of colon cancer Grandmother (Paternal) Family history of diabetes mellitus Past Surgical History Surgical History History of appendectomy History of bilateral cataract extraction History of bilateral tubal ligation History of bladder surgery botox injections into bladder History of bladder suspension procedure x2 History of brain surgery "microvascular decompression" X2 @ [facility] 2009? History of colonoscopy with polypectomy History of dilatation and curettage History of esophagogastroduodenoscopy (EGD) History of fusion of cervical spine C3-C6; normal ROM History of left breast biopsy x2--benign History of lumbar discectomy L4-L5 History of mandibular surgery x2 2008 after accident--1st time wired shut 2nd sx metal jaw put in---normal ROM History of open reduction and internal fixation (ORIF) procedure right ankle History of partial hysterectomy History of shoulder surgery x4 on left History of surgery brain stimulator removed 1 yr after placed History of surgery on arm right x2 d/t dog bite History of surgery on right wrist fx repair, no hardware History of tooth extraction History of total left knee replacement (TKR) History of total right knee replacement (TKR) History of wisdom tooth extraction Status post correction of deviated nasal septum Status post deep brain stimulator placement 2010 @ [facility] Past Anesthesia History No Hx of Anesthesia Complications and No Family Hx of Anesthesia Complications History of PONV No Hx of PONV and No Hx of Motion Sickness Social History Smoking Status: Never smoker Hx Alcohol Use: No Hx Substance Use: No substance use type: does not use Physical Exam Vital Signs Last Vital Signs Temp 36.7 C 02/16/21 07:24 Pulse 60 02/16/21 07:24 Resp 16 02/16/21 07:24 BP 121/76 02/16/21 07:24 Pulse Ox 95 02/16/21 07:24 ENMT Mouth: no dentition abnormality Thyromental Distance: > or= 3.5 Finger Breadths Mallampati Class: II Neck normal visual inspection Respiratory normal respiratory effort Auscultation: lungs clear to auscultation bilaterally Cardiovascular Rate/Rhythm: regular rate and regular rhythm Psychiatric Orientation: alert Testing Laboratory Results 02/16/21 06:39 02/16/21 06:39 Urine Color Yellow 02/16/21 01:00 Urine Appearance Cloudy (Clear) A 02/16/21 01:00 Urine pH 6.0 (4.5-7.5) 02/16/21 01:00 Ur Specific [place] 1.013 (1.000-1.030) 02/16/21 01:00 Urine Protein Negative (Negative) 02/16/21 01:00 Urine Glucose (UA) Negative (Negative) 02/16/21 01:00 Urine Ketones Negative (Negative) 02/16/21 01:00 Urine Nitrite Negative (Negative) 02/16/21 01:00 Ur Leukocyte Esterase 3+ (Negative) H 02/16/21 01:00 Urine WBC (Auto) >30 /hpf (0-5) H 02/16/21 01:00 Urine RBC (Auto) 0-4 /hpf (0-4) 02/16/21 01:00 U Hyaline Cast (Auto) 1-5 /lpf (0-5) 02/16/21 01:00 U Epithel Cells (Auto) >30 /lpf (0-5) H 02/16/21 01:00 Urine Bacteria (Auto) 1+ (Negative) H 02/16/21 01:00 02/15/21 13:33 Urine Culture - Final Urine,Clean Catch Three types of organisms present, all high counts. Repeat collection recommended. No further identifications or sensitivities to follow. Electrocardiogram Date: 11/16/20 Findings: + NSR @ and + poor R wave progression Chest X-Ray Date: 11/16/20 Findings: + NAD Echocardiogram Date: 11/04/20 EF: "normal" difficult study. probably normal LV function.
[2021-02-16] MEDS ORDERED: PROPOFOL IV EMULSION 10 MG/ML 20 ML VIAL IV ONE (14:12)
[2021-02-16] MEDS ORDERED: ONDANSETRON INJ 2 MG/ML 2 ML VIAL ONE (14:12)
[2021-02-16] MEDS ORDERED: fentaNYL citrate 100 MCG/2 ML VIAL ONE (14:12)
[2021-02-16] MEDS ORDERED: LIDOCAINE 2% 2 ML VIAL/AMP(20MG/ML) INFIL ONE (14:12)
[2021-02-16] MEDS ORDERED: LABETALOL HCL IV 5 MG/ML 20ML IV PRN (14:17)
[2021-02-16] MEDS ORDERED: ATROPINE SULFATE 0.1 MG/ML 10ML SYR IV PRN (14:17)
[2021-02-16] MEDS ORDERED: PHENYLEPHRINE 100MCG/ML 5ML SYR IV PRN (14:17)
[2021-02-16] MEDS ORDERED: ePHEDrine sulfate 50 MG/ML AMP IV PRN (14:17)
[2021-02-16] MEDS ORDERED: fentaNYL citrate 100 MCG/2 ML VIAL IV PRN (14:17)
--- NOTE | 2021-02-16 14:34 | History & Physical Bridge Note ---
Date of Service February 16, 2021 History & Physical Bridge Note I have examined the patient, reviewed the History & Physical and in the interval since the performance of the History & Physical I have noted the following changes of clinical significance: no changes noted
[2021-02-16] MEDS ORDERED: SODIUM CHLORIDE 0.9% PF 50 ML VIAL ONE (14:40)
[2021-02-16] MEDS ORDERED: BUPIVACAINE 0.5 % 5 MG/1 ML MPF 30ML VIAL ONE (14:40)
[2021-02-16] MEDS ORDERED: EPINEPHrine INJ 1 MG/ML AMP ONE (14:40)
[2021-02-16] MEDS ORDERED: methylPREDNISolone acetate 80 MG/ML VIAL ONE (14:40)
[2021-02-16] MEDS ORDERED: DEXAMETHASONE SOD INJ 4 MG/ML VIAL ONE (14:56)
[2021-02-16] MEDS ORDERED: SUCCINYLCHOLINE 100MG/5ML SYR IV ONE (14:56)
--- NOTE | 2021-02-16 15:08 | Post Operative Brief Note ---
Immediate Post Op Note v1 Date of Surgery February 16, 2021 Pre & Post Diagnosis Operation Date: 02/16/21 11:40 Pre-Op Diagnosis: Subluxation of Left Total Knee Arthroplasty, Left Knee Pain, Left Locked Knee Post-Op Diagnosis: Subluxation of Left Total Knee Arthroplasty, Left Knee Pain, Left Locked Knee I identified the patient and participated in the time-out.: Yes Procedure Operation Date: 02/16/21 11:40 Actual Procedures p Exam under Anesthesia, Closed Reduction of Left Total Knee Arthroplasty(Left) - Austin Layne DO Surgeon Austin Layne DO Gasoline Tester Favio Ford PA-C Estimated Blood Loss 0 Findings Consistent with Post-Op Diagnosis Drains Romeo Catheter Anesthesia Type General Complications none Disposition Accompanied Patient To Recovery: No
--- NOTE | 2021-02-16 15:30 | Fluoroscopy Report ---
FL knee LT 1 or 2V CLINICAL HISTORY: LEFT knee arthroplasty. Possible hardware complication COMPARISON STUDY: None. FLUOROSCOPY TIME: 27 seconds. FINDINGS: 2 fluoroscopic spot images of the left knee demonstrate a left total knee arthroplasty. The patient appears in full extension The hardware appears intact. IMPRESSION: Intraoperative fluoroscopy as described above. ACT 112: Negative or not required by law. Electronically signed by: Alfonzo Sparrow M.D. 02/16/2021 3:28 PM
--- NOTE | 2021-02-16 15:46 | Anesthesiology Progress Note ---
Date of Service February 16, 2021 Anesthesia Post Procedure Vital Signs Vital Signs: Temp Pulse Pulse Pulse Resp BP BP 02/16/21 15:40 64 13 135/75 02/16/21 15:30 36.4 C L 63 13 121/75 02/16/21 15:20 62 18 132/73 02/16/21 15:10 62 12 120/68 02/16/21 15:03 36.2 C L 60 12 110/63 02/16/21 13:45 36.7 C 66 18 125/68 02/16/21 07:24 36.7 C 60 16 121/76 02/15/21 20:20 36.4 C L 74 18 129/77 02/15/21 19:47 147/84 H 02/15/21 17:00 74 18 129/80 Pulse Ox 02/16/21 15:40 95 02/16/21 15:30 98 02/16/21 15:20 100 02/16/21 15:10 100 02/16/21 15:03 99 02/16/21 13:45 95 02/16/21 07:24 95 02/15/21 20:20 94 02/15/21 19:47 94 02/15/21 17:00 95 Pain Intensity Generalized: Pain Intensity: 2 Bilateral Leg: Pain Intensity: 2 Right Hip: Pain Intensity: 2 Transfer of Care Handoff Completed per policy Notes Mental Status: alert / awake / arousable Patient Amnestic to Procedure: Yes Nausea / Vomiting: adequately controlled Pain: adequately controlled Airway Patency, RR, SpO2: stable & adequate BP & HR: stable & adequate Hydration State: stable & adequate Anesthetic Complications: no major complications apparent and Pt Satisfied with anesthetic care Notes: The patient is awake and comfortable. Her vital signs are stable.
--- NOTE | 2021-02-16 17:20 | Operative Report (OR) ---
DATE OF PROCEDURE: 02/16/2021 PREOPERATIVE DIAGNOSES: 1. Left closed subluxation total knee arthroplasty. 2. Locked knee, left. 3. Left knee pain. POSTOPERATIVE DIAGNOSES: 1. Left closed subluxation total knee arthroplasty. 2. Locked knee, left. 3. Left knee pain. PROCEDURE: 1. Left knee closed reduction total knee arthroplasty subluxation. 2. Examination under anesthesia. SURGEON: Austin Layne DO. TRANSPORTATION SPECIALIST: Favio Ford PA-C who was present for patient positioning, sterile prep and drape, management of countertraction and assistance with closed reduction. He was present through the criti manjit portions of the case including transport of the patient to recovery. SPECIMENS: None. DRAINS: None. COMPLICATIONS: None. BLOOD LOSS: Zero. PERTINENT HISTORY: This is a 76-year-old female who has had previous left total knee arthroplasty pe rformed by another surgeon in the [facility]. The patient could not recall the surgeon's name. However, the son offered the name of juan Prasad. Apparently, the patient was in her normal state of health. She has multiple other comorbidities, had a twisting episode of her left knee and had difficulty with range of motion of the knee. The knee w as locked. Could not flex or extend past approximately 15 degrees and she was then presented to the [facility]. She was evaluated. Orthopedics was consulted, and radiographs and CT scan were obtained noting rotational abnormality of closed left total knee arthroplasty without any o bvious fracture. Hypothesis was that the Cam and post-mechanism had become locked and the patient wa s then scheduled for surgical procedure as indicated. All potential risks, benefits, complications, alternatives, rehab potential for incomplete relief of symptoms, need for further surgery, DVT, PE, , persistent pain, swelling, scarring, weakness, ne urovascular injury, wound complications, hardware failure and bone fracture were discussed with the p atient and her son who is also her power of family law attorney. The patient and her son both decided to procee d with the procedure as indicated. DESCRIPTION OF PROCEDURE: The patient was taken to the operative suite and placed supine on the oper ating room table. After review of consent and identification of proper site, the patient was anesthe tized, LMA was placed. Left lower extremity was then assessed for range of motion, was noted to be l imited range of motion after surgical timeout was performed. Gentle traction and manipulation of the left knee was performed, a palpable clunk was appreciated and then the knee alignment was noted to be markedly improved and range of motion was noted to be 0-125 degrees of flexion without any binding o f the internal components of left total knee arthroplasty. There was noted to be some laxity in all planes with anterior drawer, Lesly's, medial and lateral stress testing both at 0 and 30 degrees of flexion. The knee, however, did not sublux or dislocate again with range of motion testing. After examination under anesthesia was performed and reduction was confirmed, C-arm fluoroscopy was then ut ilized in AP and lateral projections to confirm radiographic reduction of the left total knee arthrop lasty, which is noted to be stable. No fractures noted. The patient was then awakened and then take n to recovery in stable condition. Job ID: [id number]
--- NOTE | 2021-02-16 18:27 | Hospitalist Progress Note ---
Date of Service February 16, 2021 Assessment & Plan (1) Left knee pain: (2) Ambulatory dysfunction: (3) Chronic indwelling Romeo catheter: (4) UTI (urinary tract infection): (5) Parkinson disease: (6) CMT (Yjmoloi-Zzuzh-Qrasu disease): (7) Hypertension: (8) CKD (chronic kidney disease), stage III: Plan: Patient is a 76 yr female who has significant past medical history of parkinsonism, Frszues-Pzotn-Qijrh disease, HTN, HLD, history of TIA, somatic symptom disorder, CKD stage III, chronic indwelling Romeo catheter, history of recurrent UTIs, chronic back pain wheelchair-bound who presents to ED secondary to left knee pain and inability to bend left leg x1 day. 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 Right ankle surgery done in November and left done on 01/[address] Crain of orthopedics [facility] Chronic Pain Consult PT/OT when able Pain control Appreciate Orthopedics Input UTI possibly due to chronic Romeo catheter Chronic indwelling Romeo Replaced Romeo catheter Urine culture pending Continue cefepime Day#2 Follows [facility] urology Parkinson disease continue sinemet, baclofen Pt/OT consulted HTN Continue amlodipine, Imdur Somatic symptom disorder Continue Lamictal at bedtime Follow with psych while at [facility] CKD II monitor renal function avoid nephrotoxic agents Code Status FULL CODE Disposition PT/OT Prior to discharge Admission and Anticipated Discharge Date Admission Date: February 15, 2021 Subjective Patient is seen and examined at bedside States having left knee, hip pain this morning Plan for closed reduction of subluxated knee today Denies any chest pain, shortness of breath, dizziness, nausea, abdominal pain Offers no other complaints Review of Systems Review of Systems: All systems reviewed & are unremarkable except as noted in Subjective Physical Exam Physical Exam: Physical Exam: Vitals signs as noted above General Appearance:Chronic Ill appearing, no apparent distress Head: normocephalic, Atraumatic Eyes: normal inspection, EOMI Neck: supple, Trachea midline Respiratory/Chest: Normal breath sounds, CTA Cardiovascular: S1, S2, No murmur Abdomen/GI:Soft, Non tender, Bowel sounds present Extremities/Musculoskeletal:normal inspection, +Arthritic changes, edema, Left Knee pain Neurologic/Psych:AAOX3, grossly no focal neurological deficits Skin: normal color, warm Results & Data Results & Data ([facility]) Vital Signs (Past 12 Hours) Vital Signs Temp Pulse Pulse Pulse Resp BP Pulse Ox 02/16/21 17:58 60 15 110/67 94 02/16/21 16:54 36.7 C 59 L 18 116/70 94 02/16/21 16:25 36.5 C 62 16 125/75 95 02/16/21 15:56 36.5 C 61 15 123/75 94 02/16/21 15:40 64 13 135/75 95 02/16/21 15:30 36.4 C L 63 13 121/75 98 02/16/21 15:20 62 18 132/73 100 02/16/21 15:10 62 12 120/68 100 02/16/21 15:03 36.2 C L 60 12 110/63 99 02/16/21 13:45 36.7 C 66 18 125/68 95 02/16/21 07:24 36.7 C 60 16 121/76 95 Laboratory Results Short CBC 02/16/21 Range/Units 06:39 WBC 7.01 (4.8-10.8) K/uL Hgb 11.8 L (12.0-16.0) g/dL Hct 37.8 (37-47) % Plt Count 296 (130-400) K/uL BMP 02/16/21 06:39 Sodium 141 Potassium 3.5 Chloride 111 H Carbon Dioxide 23 BUN 15 Creatinine 0.73 Glucose 104 H Calcium 9.0 Liver Function 02/16/21 Range/Units 06:39 Total Bilirubin 0.5 (0.2-1) mg/dl AST 13 L (15-37) U/L ALT 9 L (12-78) U/L Alkaline Phosphatase 94 (45-117) U/L Albumin 2.7 L (3.4-5.0) gm/dl Urine 02/16/21 Range/Units 01:00 Urine Color Yellow Urine Appearance Cloudy A (Clear) Urine pH 6.0 (4.5-7.5) Ur Specific [place] 1.013 (1.000-1.030) Urine Protein Negative (Negative) Urine Glucose (UA) Negative (Negative)
[2021-02-16] MEDS: MELATONIN 3 MG TAB PO SCH ×3 (21:20→23:07)
[2021-02-16] MEDS: lamoTRIgine 25 MG TAB PO SCH ×2 (21:22→21:37)
[2021-02-16] MEDS: EZETIMIBE 10 MG TABLET PO SCH ×2 (21:24→21:37)
[2021-02-16] MEDS: ENOXAPARIN INJ 40 MG/0.4 ML SYR SQ SCH (22:09)
[2021-02-16] MEDS: ACETAMINOPHEN 325 MG TAB PO PRN (22:10)
[2021-02-17] MEDS: ACETAMINOPHEN 325 MG TAB PO PRN (03:54)
[2021-02-17] MEDS: traMADol HCL 50 MG TABLET PO PRN (06:00)
[2021-02-17 06:21] LABS: Hematocrit (blood only) 35.3 % (37-47); Hemoglobin 11.6 g/dL (12.0-16.0); Mean Corpuscular Hemoglobin 27.8 pg (25-34); Mean Corpuscular Hgb Conc 32.9 g/dL (32-36); Mean Corpuscular Volume 84.7 fL (80-100); Mean Platelet Volume 9.6 fL (7.4-10.4); Platelet Count 326 K/uL (130-400); RDW Coefficient of Variation 13.2 % (11.5-14.5); RDW Standard Deviation 40.6 fL (36.4-46.3); Red Blood Count 4.17 M/uL (4.2-5.4)
[2021-02-17 07:05] LABS: BUN Creatinine Ratio 15.8 (10-20); Calcium 9.3 mg/dl (8.5-10.1); Est GFR (African American) 84.9 ml/min; Est GFR (Non-African American) 73.2 ml/min; Magnesium 2.1 mg/dl (1.8-2.4); Potassium 4.1 mmol/L (3.5-5.1)
[2021-02-17] MEDS: CARBIDOPA/LEVODOPA 25/100MG TAB PO SCH ×3 (07:40→20:19)
[2021-02-17] MEDS: GABAPENTIN 300 MG CAP PO SCH ×3 (07:40→20:17)
[2021-02-17] MEDS: ISOSORBIDE MONO EXTENDED REL 30 MG TABCR PO SCH (07:41)
[2021-02-17] MEDS: BACLOFEN 10 MG TAB PO SCH ×4 (07:41→20:20)
[2021-02-17] MEDS: ACETAMINOPHEN 500 MG TAB PO SCH ×2 (07:41→20:17)
[2021-02-17] MEDS: PANTOprazole 40 MG TAB PO SCH (07:42)
[2021-02-17] MEDS: LACTASE 3000 UNIT TAB PO SCH ×3 (07:42→16:52)
[2021-02-17] MEDS: ASPIRIN 81 MG ECTAB PO SCH (07:42)
[2021-02-17] MEDS: TOVIAZ~ORDER AWAITING ACTION SCH ×2 (07:43→14:44)
[2021-02-17] MEDS: DOCUSATE SODIUM/SENNA 50/8.6MG TAB PO SCH (07:43)
[2021-02-17] MEDS: amLODIPine BESYLATE 5 MG TAB PO SCH (07:43)
[2021-02-17] MEDS: DICLOFENAC SOD 1% GEL 100 GM TUBE EXT SCH ×4 (07:44→20:16)
[2021-02-17] MEDS: POTASSIUM CHLORIDE 10 MEQ TABCR PO SCH ×2 (07:45→20:18)
--- NOTE | 2021-02-17 09:05 | Orthopedic Progress Note ---
Date of Service February 17, 2021 Assessment & Plan (1) Subluxation of left knee: Plan: Postop day 1 status post closed reduction of left subluxation of TKA. PT/OT protocols. Nonweightbearing on the left lower extremity. (History of left foot surgery earlier this month) would consider limited weightbearing on the right secondary to similar type of operation done prior to this month. Gentle range of motion of the left knee. Pain management as written. Stable exam of the left knee post reduction. Orthopedics will sign off at this time. Please call with any questions. Admission and Anticipated Discharge Date Admission Date: February 15, 2021 Supervising Physician Co-Signing Physician Notes Patient seen and examined. Agree with MARI Ford's note as above. No effusion in the left knee. Gentle range of motion of the knee while in bed does not elicit any significant discomfort in the knee, but she does complain of pain up in her left hip. No gross deformity of the knee, and the knee seems stable. She appears to have anatomic reduction of the total knee prosthesis on intraoperative fluoroscopy. Subjective Postop day 1 Patient is sitting up in bed using her cell phone. She states she has some pain in her knee this morning. We discussed that with the manipulation that she underwent yesterday, that was understandable. Physical Exam Physical Exam: On examination, her knee does not appear to have an effusion. It is not erythematous. She continues to have some discomfort with moving the knee which is to be expected. Results & Data ([facility]) Vital Signs (Past 12 Hours) Vital Signs Temp Pulse Resp BP Pulse Ox 02/17/21 06:58 36.5 C 60 18 149/65 H 95 02/17/21 03:55 36.7 C 58 L 18 122/78 97 02/16/21 21:48 36.5 C 55 L 16 112/70 96 02/16/21 21:27 54 L 118/63 94
[2021-02-17] MEDS: CEFEPIME 2,000 MG in SYRINGE 0 ML IV SCH ×2 (09:56→21:56)
[2021-02-17] MEDS: FERROUS SULFATE 325 MG TAB PO SCH (11:37)
--- NOTE | 2021-02-17 14:02 | Emergency Department Note ---
History of Present Illness General Chief complaint: Knee Injury/Pain Stated complaint: LEFT & RIGHT ANKLE PAIN, LOWER BACK Time Seen by Provider: 02/15/21 11:56 Source: patient and family Mode of arrival: EMS Limitations: no limitations History of Present Illness Maximum Pain Intensity: 7 This patient is a 76-year-old female who presents to the emergency department via EMS for evaluation of left knee pain as well as multiple other complaints. Patient has a history of Parkinson's disease and Itbjazl-Hncyr-Kdmsz and is essentially bedbound secondary to this. She has multiple muscle contractures. She has had a recent left foot/ankle surgery/ligamentous release. She states that her left knee locked up earlier this morning and since then, she has been unable to straighten the knee. She denies any trauma to the knee. She also reports back pain and pain in her left ankle/foot. Additional history obtained from the patient's daughter, reports there is concerned she could have a UTI. Patient does have a chronic indwelling Romeo catheter. She was also requesting that the patient's left hip be x-rayed as she has been complaining about pain in the left foot with radiation into the hip. Home Medications Medication Instructions Recorded Confirmed Type carbidopa 25 mg-levodopa 100 mg 1 tab PO TID 06/21/19 02/15/21 History tablet ferrous sulfate 325 mg (65 mg 325 mg PO QDL 06/21/19 02/15/21 History iron) tablet ezetimibe 10 mg tablet 10 mg PO HS 11/01/20 02/15/21 History isosorbide mononitrate 30 mg 30 mg PO QAM 11/01/20 02/15/21 History tablet,extended release 24 hr lactase 3,000 unit tablet 3,000 unit PO AC 11/01/20 02/15/21 History docusate sodium 100 mg capsule 100 mg PO DAILY PRN 11/16/20 02/15/21 History acetaminophen 325 mg capsule 650 mg PO Q4H PRN cap MDD 3 12/20/20 02/15/21 History GRAMS/24 HOURS. acetaminophen 500 mg tablet 1,000 mg PO BID tab 12/20/20 02/15/21 History (Tylenol Extra Strength) albuterol sulfate 2.5 mg/0.5 mL 5 mg INHALATION Q4H PRN 12/20/20 02/15/21 History solution for nebulization amlodipine 10 mg tablet 10 mg PO DAILY 12/20/20 02/15/21 History aspirin 81 mg tablet,delayed 81 mg PO DAILY 12/20/20 02/15/21 History release (Adult Aspirin Regimen) baclofen 10 mg tablet 10 mg PO QID 12/20/20 02/15/21 History diclofenac sodium 1 % topical gel 4 g TOPICAL QID 12/20/20 02/15/21 History fesoterodine 4 mg tablet,extended 4 mg PO QAM 12/20/20 02/15/21 History release 24 hr (Toviaz) lamotrigine 25 mg tablet (Lamictal) 75 mg PO HS 12/20/20 02/15/21 History lidocaine 4 % topical patch 1 patch TOPICAL DAILY 12/20/20 02/15/21 History (Aspercreme (lidocaine)) melatonin 5 mg capsule 5 mg PO HS cap 12/20/20 02/15/21 History omeprazole 20 mg capsule,delayed 20 mg PO DAILY 12/20/20 02/15/21 History release polyethylene glycol 3350 17 17 g PO DAILY PRN 12/20/20 02/15/21 History gram/dose oral powder (Miralax) potassium chloride 10 mEq 10 meq PO BID 12/20/20 02/15/21 History tablet,extended release tramadol 50 mg tablet 50 mg PO Q4H PRN tab 12/20/20 02/15/21 History gabapentin 600 mg tablet 900 mg PO TID 02/15/21 02/15/21 History Allergies Allergy/AdvReac Type Severity Reaction Status Date / Time bee venom protein (honey bee) Allergy Severe ANAPHYLAXIS Verified 02/16/21 13:59 shellfish derived Allergy Severe anaphylaxis Verified 02/16/21 13:59 Sulfa (Sulfonamide Allergy Severe ANAPHYLAXIS Verified 02/16/21 13:59 Antibiotics) Past Med/Surg History Medical History Ambulatory dysfunction Anemia Chronic anticoagulation Chronic back pain Chronic knee pain after total replacement of left knee joint Chronic left shoulder pain Chronic pain CKD (chronic kidney disease), stage III CMT (Hnjnwlj-Zojhe-Njsnn disease) Degenerative disc disease 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 GERD (gastroesophageal reflux disease) Hearing loss Hearing loss in left ear Hyperlipidemia Hypertension Hypothyroidism Insomnia Lactose intolerance Migraine Nausea and vomiting after administration of anesthetic agent Obesity Osteoarthritis Parkinson disease Recurrent UTI Renal lesion Repeated falls Spinal stenosis Transient cerebral ischemia Trigeminal neuralgia Unspecified abnormalities of gait and mobility Surgical History History of appendectomy History of bilateral cataract extraction History of bilateral tubal ligation History of bladder surgery botox injections into bladder History of bladder suspension procedure x2 History of brain surgery "microvascular decompression" X2 @ [facility] 2010? History of colonoscopy with polypectomy History of dilatation and curettage History of esophagogastroduodenoscopy (EGD) History of fusion of cervical spine C3-C6; normal ROM History of left breast biopsy x2--benign History of lumbar discectomy L4-L5 History of mandibular surgery x2 2008 after accident--1st time wired shut 2nd sx metal jaw put in---normal ROM History of open reduction and internal fixation (ORIF) procedure right ankle History of partial hysterectomy History of shoulder surgery x4 on left History of surgery brain stimulator removed 1 yr after placed History of surgery on arm right x2 d/t dog bite History of surgery on right wrist fx repair, no hardware History of tooth extraction History of total left knee replacement (TKR) History of total right knee replacement (TKR) History of wisdom tooth extraction Status post correction of deviated nasal septum Status post deep brain stimulator placement 2010 @ [facility] Family History Son Family history of reaction to anesthesia nausea/vomiting Family history of diabetes mellitus Son Family history of reaction to anesthesia nausea/vomiting Son Family history of reaction to anesthesia nausea/vomiting Father Family history of diabetes mellitus Mother Family history of diabetes mellitus Family hx of colon cancer Grandmother (Paternal) Family history of diabetes mellitus Social History Smoking Status: Never smoker Second Hand Exposure: No; Hx Alcohol Use: No Hx Substance Use: No Preferred Language: Malaysian Communication Ability: Effective Visual Impairment: No Limitations Hearing Ability: Normal 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 GENERAL: This is a 76-year-old female, chronically unwell appearing. SKIN: The skin was without rashes. EYES: Pupils equal round and reactive to light and accommodation. MOUTH: Mucous membranes moist. NECK: Supple without nuchal rigidity. HEART: Regular rate and rhythm without murmurs gallops or rubs. LUNGS: Clear to auscultation bilaterally without wheezes, rales or rhonchi. MUSCULOSKELETAL: Multiple muscle contractures noted. Ortho-Glass splint in place over the left ankle. Fracture boot on the right ankle. Left knee is held in about 45 degrees of flexion, unable to perform passive range of motion secondary to patient discomfort. NEURO: Patient was alert and oriented to person place and time. Course Administered Medications Acetaminophen (Acetaminophen 325 Mg Tab) 650 mg PO Q4H PRN PRN Reason: pain/fever Stop: 03/17/21 20:44 Last Admin: 02/17/21 03:54 Dose: 650 mg Documented by: [id number] Admin: 02/16/21 22:10 Dose: 650 mg Documented by: [id number] Acetaminophen (Acetaminophen 500 Mg Tab) 500 mg PO BID MARIBELL Stop: 03/17/21 21:29 Last Admin: 02/18/21 08:35 Dose: 500 mg Documented by: [id number] Admin: 02/17/21 20:17 Dose: 500 mg Documented by: [id number] Admin: 02/17/21 07:41 Dose: 500 mg Documented by: [id number] Admin: 02/16/21 21:34 Dose: Not Given Documented by: [id number] Admin: 02/16/21 08:39 Dose: 500 mg Documented by: [id number] Admin: 02/15/21 21:47 Dose: 500 mg Documented by: [id number] Amlodipine Besylate (Amlodipine Besylate 5 Mg Tab) 10 mg PO DAILY MARIBELL Stop: 03/18/21 08:59 Last Admin: 02/18/21 08:33 Dose: 10 mg Documented by: [id number] Admin: 02/17/21 07:43 Dose: 10 mg Documented by: [id number] Admin: 02/16/21 08:37 Dose: 10 mg Documented by: [id number] Aspirin (Aspirin 81 Mg Ectab) 81 mg PO DAILY MARIBELL Stop: 03/18/21 08:59 Last Admin: 02/18/21 08:36 Dose: 81 mg Documented by: [id number] Admin: 02/17/21 07:42 Dose: 81 mg Documented by: [id number] Admin: 02/16/21 08:36 Dose: 81 mg Documented by: [id number] Baclofen (Baclofen 10 Mg Tab) 10 mg PO QID MARIBELL Stop: 03/17/21 20:59 Last Admin: 02/18/21 12:44 Dose: 10 mg Documented by: [id number] Admin: 02/18/21 08:38 Dose: 10 mg Documented by: [id number] Admin: 02/17/21 20:20 Dose: 10 mg Documented by: [id number] Admin: 02/17/21 16:53 Dose: 10 mg Documented by: [id number] Admin: 02/17/21 11:37 Dose: 10 mg Documented by: [id number] Admin: 02/17/21 07:41 Dose: 10 mg Documented by: [id number] Admin: 02/16/21 21:34 Dose: Not Given Documented by: [id number] Admin: 02/16/21 16:22 Dose: 10 mg Documented by: [id number] Admin: 02/16/21 13:06 Dose: 10 mg Documented by: [id number] Admin: 02/16/21 08:36 Dose: 10 mg Documented by: [id number] Admin: 02/15/21 21:51 Dose: 10 mg Documented by: [id number] Carbidopa/Levodopa (Carbidopa/Levodopa 25/100mg Tab) 1 tab PO TID MARIBELL Stop: 03/17/21 20:59 Last Admin: 02/18/21 13:16 Dose: 1 tab Documented by: [id number] Admin: 02/18/21 08:34 Dose: 1 tab Documented by: [id number] Admin: 02/17/21 20:19 Dose: 1 tab Documented by: [id number] Admin: 02/17/21 13:13 Dose: 1 tab Documented by: [id number] Admin: 02/17/21 07:40 Dose: 1 tab Documented by: [id number] Admin: 02/16/21 21:37 Dose: Not Given Documented by: [id number] Admin: 02/16/21 13:08 Dose: 1 tab Documented by: [id number] Admin: 02/16/21 08:42 Dose: 1 tab Documented by: [id number] Admin: 02/15/21 21:47 Dose: 1 tab Documented by: [id number] Diclofenac Sodium (Diclofenac Sod 1% Gel 100 Gm Tube) 4 gm EXT QID MARIBELL Stop: 03/17/21 20:44 Last Admin: 02/18/21 12:44 Dose: 4 gm Documented by: [id number] Admin: 02/18/21 08:33 Dose: 4 gm Documented by: [id number] Admin: 02/17/21 20:16 Dose: 4 gm Documented by: [id number] Admin: 02/17/21 16:53 Dose: 4 gm Documented by: [id number] Admin: 02/17/21 11:37 Dose: 4 gm Documented by: [id number] Admin: 02/17/21 07:44 Dose: 4 gm Documented by: [id number] Admin: 02/16/21 21:22 Dose: 4 gm Documented by: [id number] Admin: 02/16/21 16:20 Dose: 4 gm Documented by: [id number] Admin: 02/16/21 13:06 Dose: 4 gm Documented by: [id number] Admin: 02/16/21 08:42 Dose: 4 gm Documented by: [id number] Admin: 02/15/21 21:47 Dose: 4 gm Documented by: [id number] Admin: 02/15/21 21:47 Dose: Not Given Documented by: [id number] Ezetimibe (Ezetimibe 10 Mg Tablet) 10 mg PO HS MARIBELL Stop: 03/17/21 20:59 Last Admin: 02/17/21 20:19 Dose: 10 mg Documented by: [id number] Admin: 02/16/21 21:37 Dose: Not Given Documented by: [id number] Admin: 02/15/21 21:51 Dose: 10 mg Documented by: [id number] Enoxaparin Sodium (Enoxaparin Inj 40 Mg/0.4 Ml Syr) 40 mg SQ Q24H MARIBELL Stop: 03/17/21 21:59 Last Admin: 02/17/21 21:56 Dose: 40 mg Documented by: [id number] Admin: 02/16/21 22:09 Dose: 40 mg Documented by: [id number] Admin: 02/15/21 21:53 Dose: 40 mg Documented by: [id number] Ferrous Sulfate (Ferrous Sulfate 325 Mg Tab) 325 mg PO QDL MARIBELL Stop: 03/18/21 11:29 Last Admin: 02/18/21 12:45 Dose: 325 mg Documented by: [id number] Admin: 02/17/21 11:37 Dose: 325 mg Documented by: [id number] Admin: 02/16/21 10:52 Dose: 325 mg Documented by: [id number] Gabapentin (Gabapentin 300 Mg Cap) 900 mg PO TID MARIBELL Stop: 03/17/21 21:59 Last Admin: 02/18/21 13:16 Dose: 900 mg Documented by: [id number] Admin: 02/18/21 08:35 Dose: 900 mg Documented by: [id number] Admin: 02/17/21 20:17 Dose: 900 mg Documented by: [id number] Admin: 02/17/21 13:13 Dose: 900 mg Documented by: [id number] Admin: 02/17/21 07:40 Dose: 900 mg Documented by: [id number] Admin: 02/16/21 21:38 Dose: Not Given Documented by: [id number] Admin: 02/16/21 13:08 Dose: 900 mg Documented by: [id number] Admin: 02/16/21 08:37 Dose: 900 mg Documented by: [id number] Admin: 02/15/21 21:50 Dose: 900 mg Documented by: [id number] Cefepime HCl 2,000 mg/ Syringe 20 mls @ 5 mls/min IV Q12H MARIBELL Stop: 02/19/21 09:59 Last Admin: 02/18/21 09:09 Dose: 5 mls/min Documented by: [id number] Admin: 02/17/21 21:56 Dose: 5 mls/min Documented by: [id number] Admin: 02/17/21 09:56 Dose: 5 mls/min Documented by: [id number] Admin: 02/16/21 22:09 Dose: 5 mls/min Documented by: [id number] Admin: 02/16/21 10:46 Dose: 5 mls/min Documented by: [id number] Isosorbide Mononitrate (Isosorbide Banks Extended Rel 30 Mg Tabcr) 30 mg PO QAM MARIBELL Stop: 03/18/21 08:59 Last Admin: 02/18/21 08:36 Dose: 30 mg Documented by: [id number] Admin: 02/17/21 07:41 Dose: 30 mg Documented by: [id number] Admin: 02/16/21 08:35 Dose: 30 mg Documented by: [id number] Lactase (Lactase 3000 Unit Tab) 3,000 units PO AC [facility] Stop: 03/18/21 07:29 Last Admin: 02/18/21 12:44 Dose: 3,000 units Documented by: [id number] Admin: 02/18/21 08:33 Dose: 3,000 units Documented by: [id number] Admin: 02/17/21 16:52 Dose: 3,000 units Documented by: [id number] Admin: 02/17/21 11:36 Dose: 3,000 units Documented by: [id number] Admin: 02/17/21 07:42 Dose: 3,000 units Documented by: [id number] Admin: 02/16/21 16:21 Dose: 3,000 units Documented by: [id number] Admin: 02/16/21 10:53 Dose: Not Given Documented by: [id number] Admin: 02/16/21 08:36 Dose: Not Given Documented by: [id number] Lamotrigine (Lamotrigine 25 Mg Tab) [address] [facility] Stop: 03/17/21 20:59 Last Admin: 02/17/21 20:19 Dose: 75 mg Documented by: [id number] Admin: 02/16/21 21:37 Dose: Not Given Documented by: [id number] Admin: 02/15/21 21:52 Dose: 75 mg Documented by: [id number] Melatonin (Melatonin 3 Mg Tab) 4.[address] [facility] Stop: 03/17/21 21:59 Last Admin: 02/17/21 20:18 Dose: 4.5 mg Documented by: [id number] Admin: 02/16/21 23:07 Dose: 4.5 mg Documented by: [id number] Admin: 02/15/21 21:49 Dose: 4.5 mg Documented by: [id number] Miscellaneous (Toviaz~Order Awaiting Action) 1 ea N/A QS [facility] Stop: 03/17/21 21:29 Last Admin: 02/18/21 08:37 Dose: Not Given Documented by: [id number] Admin: 02/18/21 00:05 Dose: Not Given Documented by: [id number] Admin: 02/17/21 14:44 Dose: Not Given Documented by: [id number] Admin: 02/17/21 07:43 Dose: Not Given Documented by: [id number] Admin: 02/16/21 21:43 Dose: Not Given Documented by: [id number] Admin: 02/16/21 16:10 Dose: Not Given Documented by: [id number] Admin: 02/16/21 08:39 Dose: Not Given Documented by: [id number] Admin: 02/15/21 23:11 Dose: Not Given Documented by: [id number] Admin: 02/15/21 21:48 Dose: Not Given Documented by: [id number] Morphine Sulfate (Morphine Sulfate 2 Mg/Ml Carp) 2 mg IV Q3H PRN PRN Reason: Pain Stop: 03/01/21 19:42 Last Admin: 02/18/21 05:56 Dose: 2 mg Documented by: [id number] Non-Formulary Medication (Lidocaine [Aspercreme (Lidocaine Hcl)]) 1 patch TOP DAILY MARIBELL Stop: 03/18/21 08:59 Last Admin: 02/18/21 08:37 Dose: Not Given Documented by: [id number] Admin: 02/17/21 07:44 Dose: Not Given Documented by: [id number] Admin: 02/16/21 08:43 Dose: Not Given Documented by: [id number] Pantoprazole Sodium (Pantoprazole 40 Mg Tab) 40 mg PO DAILY MARIBELL Stop: 03/18/21 08:59 Last Admin: 02/18/21 08:36 Dose: 40 mg Documented by: [id number] Admin: 02/17/21 07:42 Dose: 40 mg Documented by: [id number] Admin: 02/16/21 08:39 Dose: 40 mg Documented by: [id number] Potassium Chloride (Potassium Chloride 10 Meq Tabcr) 10 meq PO BID MARIBELL Stop: 03/17/21 20:59 Last Admin: 02/18/21 08:34 Dose: 10 meq Documented by: [id number] Admin: 02/17/21 20:18 Dose: 10 meq Documented by: [id number] Admin: 02/17/21 07:45 Dose: 10 meq Documented by: [id number] Admin: 02/16/21 21:38 Dose: Not Given Documented by: [id number] Admin: 02/16/21 08:37 Dose: 10 meq Documented by: [id number] Admin: 02/15/21 21:49 Dose: 10 meq Documented by: [id number] Senna/Docusate Sodium (Docusate Sodium/Senna 50/8.6mg Tab) 1 tab PO QAM MARIBELL Stop: 03/18/21 08:59 Last Admin: 02/18/21 08:36 Dose: 1 tab Documented by: [id number] Admin: 02/17/21 07:43 Dose: 1 tab Documented by: [id number] Admin: 02/16/21 08:39 Dose: 1 tab Documented by: [id number] Discontinued Medications Acetaminophen (Acetaminophen 500 Mg Tab) 1,000 mg PO NOW STA Stop: 02/15/21 13:38 Last Admin: 02/15/21 13:46 Dose: 1,000 mg Documented by: [id number] Bupivacaine HCl (Bupivacaine 0.5 % 5 Mg/1 Ml Mpf 30ml Vial) Confirm Administered Dose 60 ml .ROUTE .STK-MED ONE Stop: 02/16/21 14:41 Last Admin: 02/16/21 15:07 Dose: Not Given Documented by: [id number] Epinephrine HCl (Epinephrine Inj 1 Mg/Ml Amp) Confirm Administered Dose 1 mg .ROUTE .STK-MED ONE Stop: 02/16/21 14:41 Last Admin: 02/16/21 15:07 Dose: Not Given Documented by: [id number] Fentanyl Citrate (Fentanyl Citrate 100 Mcg/2 Ml Vial) 50 mcg IV NOW STA Stop: 02/15/21 12:36 Last Admin: 02/15/21 13:01 Dose: 50 mcg Documented by: [id number] Cefepime HCl (Maxipime) 2,000 mg in 20 mls @ 5 mls/min IV NOW STA Stop: 02/15/21 14:41 Last Admin: 02/15/21 14:59 Dose: 5 mls/min Documented by: [id number] Sodium Chloride (Nss 1000ml) 1,000 mls @ 80 mls/hr IV .[id number] MARIBELL Stop: 02/16/21 09:14 Last Infusion: 02/16/21 09:54 Dose: 0 mls/hr Documented by: [id number] Admin: 02/15/21 21:32 Dose: 80 mls/hr Documented by: [id number] Cefepime HCl 2,000 mg/ Syringe 20 mls @ 5 mls/min IV NOW ONE Stop: 02/15/21 22:03 Last Admin: 02/15/21 21:54 Dose: 5 mls/min Documented by: [id number] Magnesium Sulfate/Dextrose (Magnesium Sulfate / D5w) 1 gm in 100 mls @ 50 mls/hr IV ONE ONE Stop: 02/16/21 12:29 Last Infusion: 02/16/21 13:05 Dose: 0 mls/hr Documented by: [id number] Admin: 02/16/21 10:46 Dose: 50 mls/hr Documented by: [id number] Influenza Virus Vaccine (Influenza Vaccine High Dose Pf 65+ 0.7 Ml Syr) 0.7 ml IM .ONCE ONE Stop: 02/16/21 08:01 Last Admin: 02/16/21 08:40 Dose: Not Given Documented by: [id number] Methylprednisolone Acetate (Methylprednisolone Acetate 80 Mg/Ml Vial) Confirm Administered Dose 80 mg .ROUTE .STK-MED ONE Stop: 02/16/21 14:41 Last Admin: 02/16/21 15:07 Dose: Not Given Documented by: [id number] Morphine Sulfate (Morphine Sulfate 2 Mg/Ml Carp) 2 mg IV NOW STA Stop: 02/15/21 16:01 Last Admin: 02/15/21 16:20 Dose: 2 mg Documented by: [id number] Morphine Sulfate (Morphine Sulfate 2 Mg/Ml Carp) 2 mg IV Q4H PRN PRN Reason: Pain Stop: 03/01/21 19:42 Last Admin: 02/18/21 02:57 Dose: 2 mg Documented by: [id number] Admin: 02/16/21 08:51 Dose: 2 mg Documented by: [id number] Admin: 02/15/21 19:55 Dose: 2 mg Documented by: [id number] Sodium Chloride (Sodium Chloride 0.9% Pf 50 Ml Vial) Confirm Administered Dose 100 ml .ROUTE .STK-MED ONE Stop: 02/16/21 14:41 Last Admin: 02/16/21 15:07 Dose: Not Given Documented by: [id number] Tramadol HCl (Tramadol Hcl 50 Mg Tablet) 50 mg PO NOW STA Stop: 02/15/21 13:38 Last Admin: 02/15/21 13:46 Dose: 50 mg Documented by: [id number] Tramadol HCl (Tramadol Hcl 50 Mg Tablet) 50 mg PO Q4H PRN PRN Reason: severe pain Stop: 03/17/21 20:44 Last Admin: 02/18/21 04:46 Dose: 50 mg Documented by: [id number] Admin: 02/18/21 00:44 Dose: 50 mg Documented by: [id number] Admin: 02/17/21 06:00 Dose: 50 mg Documented by: [id number] Admin: 02/16/21 06:37 Dose: 50 mg Documented by: [id number] Admin: 02/15/21 21:31 Dose: 50 mg Documented by: [id number] Medical Decision Making Differential Diagnosis Differential diagnosis includes fracture, sprain, meniscus tear, cruciate ligament tear, medial or lateral collateral ligament injury, septic joint, osteoarthritis, rheumatoid arthritis, gout, patellofemoral syndrome, referred pain, among others. Home Medications Current Medication List: was personally reviewed by me Laboratory Data Attestation: I reviewed the patient's lab results. Result diagrams: 02/17/21 06:06 02/18/21 07:23 Lab Results 02/15/21 02/15/21 02/15/21 Range/Units 12:45 12:45 12:45 WBC 10.20 (4.8-10.8) K/uL RBC 4.40 (4.2-5.4) M/uL Hgb 12.1 (12.0-16.0) g/dL Hct 38.1 (37-47) % MCV 86.6 (80-100) fL MCH 27.5 (25-34) pg MCHC 31.8 L (32-36) g/dL RDW Std Deviation 42.1 (36.4-46.3) fL RDW Coeff of Tsering 13.2 (11.5-14.5) % Plt Count 353 (130-400) K/uL MPV 9.7 (7.4-10.4) fL Immature Gran % (Auto) 0.2 % Neut % (Auto) 83.6 % Lymph % (Auto) 10.7 % Banks % (Auto) 4.6 % Eos % (Auto) 0.7 % Baso % (Auto) 0.2 % Neut # (Auto) 8.53 H (1.4-6.5) K/uL Lymph # (Auto) 1.09 L (1.2-3.4) K/uL Banks # (Auto) 0.47 (0.11-0.59) K/uL Eos # (Auto) 0.07 (0-0.5) K/uL Baso # (Auto) 0.02 (0-0.2) K/uL Immature Gran # (Auto) 0.02 (0.00-0.02) K/uL Sodium 140 (136-145) mmol/L Potassium 4.0 (3.5-5.1) mmol/L Chloride 108 H (98-107) mmol/L Carbon Dioxide 25 (21-32) mmol/L Anion Gap 7.0 (3-11) BUN 14 (7-18) mg/dl Creatinine 0.75 (0.6-1.2) mg/dl Est Cr Clr Drug Dosing 68.1 ml/min Est GFR ( Amer) 90.4 ml/min Est GFR (Non-Af Amer) 78.0 ml/min BUN/Creatinine Ratio 19.0 (10-20) Glucose 102 H (70-99) mg/dl Calcium 9.1 (8.5-10.1) mg/dl Total Bilirubin 0.5 (0.2-1) mg/dl AST 10 L (15-37) U/L ALT 9 L (12-78) U/L Alkaline Phosphatase 110 (45-117) U/L Total Protein 6.9 (6.4-8.2) gm/dl Albumin 3.1 L (3.4-5.0) gm/dl Globulin 3.8 (2.5-4.0) gm/dl Albumin/Globulin Ratio 0.8 L (0.9-2) Urine Color Urine Appearance (Clear) Urine pH (4.5-7.5) Ur Specific [place] (1.000-1.030) Urine Protein (Negative) Urine Glucose (UA) (Negative) Urine Ketones (Negative) Urine Blood (Negative) Urine Nitrite (Negative) Urine Bilirubin (Negative) Urine Urobilinogen (Negative) Ur Leukocyte Esterase (Negative) Urine WBC (Auto) (0-5) /hpf Urine RBC (Auto) (0-4) /hpf U Hyaline Cast (Auto) (0-5) /lpf U Epithel Cells (Auto) (0-5) /lpf Urine Bacteria (Auto) (Negative) Granular Casts (0) /lpf Urine Yeast COVID-19 Eval Order SARS-CoV-2 (PCR) (Negative) Hepatitis C Ab Screen Neg (Neg) 02/15/21 02/15/21 02/15/21 Range/Units 13:33 14:55 14:55 WBC (4.8-10.8) K/uL RBC (4.2-5.4) M/uL Hgb (12.0-16.0) g/dL Hct (37-47) % MCV (80-100) fL MCH (25-34) pg MCHC (32-36) g/dL RDW Std Deviation (36.4-46.3) fL RDW Coeff of Tsering (11.5-14.5) % Plt Count (130-400) K/uL MPV (7.4-10.4) fL Immature Gran % (Auto) % Neut % (Auto) % Lymph % (Auto) % Banks % (Auto) % Eos % (Auto) % Baso % (Auto) % Neut # (Auto) (1.4-6.5) K/uL Lymph # (Auto) (1.2-3.4) K/uL Banks # (Auto) (0.11-0.59) K/uL Eos # (Auto) (0-0.5) K/uL Baso # (Auto) (0-0.2) K/uL Immature Gran # (Auto) (0.00-0.02) K/uL Sodium (136-145) mmol/L Potassium (3.5-5.1) mmol/L Chloride (98-107) mmol/L Carbon Dioxide (21-32) mmol/L Anion Gap (3-11) BUN (7-18) mg/dl Creatinine (0.6-1.2) mg/dl Est Cr Clr Drug Dosing ml/min Est GFR ( Amer) ml/min Est GFR (Non-Af Amer) ml/min BUN/Creatinine Ratio (10-20) Glucose (70-99) mg/dl Calcium (8.5-10.1) mg/dl Total Bilirubin (0.2-1) mg/dl AST (15-37) U/L ALT (12-78) U/L Alkaline Phosphatase (45-117) U/L Total Protein (6.4-8.2) gm/dl Albumin (3.4-5.0) gm/dl Globulin (2.5-4.0) gm/dl Albumin/Globulin Ratio (0.9-2) Urine Color Dark Yellow Urine Appearance Turbid A (Clear) Urine pH 5.0 (4.5-7.5) Ur Specific [place] 1.029 (1.000-1.030) Urine Protein 2+ H (Negative) Urine Glucose (UA) Negative (Negative) Urine Ketones Trace H (Negative) Urine Blood 3+ H (Negative) Urine Nitrite Positive A (Negative) Urine Bilirubin 1+ H (Negative) Urine Urobilinogen Negative (Negative) Ur Leukocyte Esterase 2+ H (Negative) Urine WBC (Auto) >30 H (0-5) /hpf Urine RBC (Auto) >30 H (0-4) /hpf U Hyaline Cast (Auto) 10-30 H (0-5) /lpf U Epithel Cells (Auto) >30 H (0-5) /lpf Urine Bacteria (Auto) 2+ H (Negative) Granular Casts 5-10 H (0) /lpf Urine Yeast Not Reportable COVID-19 Eval Order Covid19 at [facility] SARS-CoV-2 (PCR) NEGATIVE (Negative) Hepatitis C Ab Screen (Neg) Imaging Data Attestation: I personally reviewed and interpreted this imaging study as follows: Radiologist's Impression: XR knee LT 1 or 2V routine CLINICAL HISTORY: left knee locked, prior replacement COMPARISON: Left knee radiographs August 06, 2018. FINDINGS: Left knee arthroplasty is noted. No periprosthetic fracture or lucency is noted. There is no joint effusion. Exam is compromised given patient's inability to extend. Apparent subluxation could be positional. IMPRESSION: 1. Status post total left knee arthroplasty. No periprosthetic fracture. No joint effusion. 2. Apparent subluxation of the left knee arthroplasty, as described above. Although this could be positional, subluxation cannot be excluded. XR hip LT 2V w pelvis CLINICAL HISTORY: left hip pain COMPARISON STUDY: Left femur 07/07/2017. FINDINGS: No fracture or dislocation within the pelvis or hips. The sacrum is intact. Moderate osteoarthritis within the bilateral hips and mild degenerative changes within the bilateral sacroiliac joints. IMPRESSION: 1. No fractures within the pelvis or hips. 2. Moderate bilateral hip osteoarthritis. MDM Narrative Continuous residential monitor: Order was placed for continuous residential monitor. Patient was placed on the residential monitor. Patient was noted to be in normal sinus rhythm at an initial rate of 75 bpm. The patient is a 76-year-old female who presents today complaining of inability to move her left knee. Patient has had a prior knee arthroplasty but has been unable to move it today. X-ray shows apparent subluxation of the hardware. Despite IV pain medication, I am unable to manipulate the knee at bedside. Additionally, patient appears to have a UTI. Given these findings, I do not feel patient is safe to return to her home residence. She was agreeable to admission for treatment of her UTI and orthopedic consultation. She may benefit from placement at a nursing facility post discharge. Patient was agreeable with the plan of care. [facility] the patient for further care. Attending Attestation: I Moses Murcia MD independently saw and evaluated this patient and agree with history and physical is otherwise documented by the physician transportation assistant. S ee their note for full details. Patient with UA concerning for infection although not septic appearing. Micro with resistance noted in previous urine cultures as well as urology notes. Patient with stiffness on exam and am not able to move the knee much without pain but it does not appear swollen. Bandaged and pretty well healed surgical wounds on Left ankle/toe areas. XR here not convincing for fracture and doubt dislocation in knee (hx of knee replacement). Patient uncomfortable and not in a position to go home. Likely may need SNF care. Will admit with knee issues, UTI concerns, and care concerns. Patient is agreeable. Impression & Plan Subluxation of left knee, Ambulatory dysfunction, UTI (urinary tract infection) Discharge Plan Visit Data Chief Complaint: Knee Injury/Pain Stated Complaint: LEFT & RIGHT ANKLE PAIN, LOWER BACK ED Provider: Moses Murcia ED Midlevel Provider: Halley Byers Discharge Problem: Subluxation of left knee, Ambulatory dysfunction, UTI (urinary tract infection) Patient Disposition: Admitted As Inpatient Discharge Instructions Interventions: ED Discharge Assessment Last Done: 02/15/21 19:47
--- NOTE | 2021-02-17 16:32 | Hospitalist Progress Note ---
Date of Service February 17, 2021 Assessment & Plan (1) Left knee pain: (2) Ambulatory dysfunction: (3) Chronic indwelling Romeo catheter: (4) UTI (urinary tract infection): (5) Parkinson disease: (6) CMT (Amlauzf-Qzszn-Dlggd disease): (7) Hypertension: (8) CKD (chronic kidney disease), stage III: Plan: Patient is a 76 yr female who has significant past medical history of parkinsonism, Zozyidx-Nvcfm-Ifzuh disease, HTN, HLD, history of TIA, somatic symptom disorder, CKD stage III, chronic indwelling Romeo catheter, history of recurrent UTIs, chronic back pain wheelchair-bound who presents to ED secondary to left knee pain and inability to bend left leg x1 day. 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 Right ankle surgery done in November and left done on 01/[address] Crain of orthopedics [facility] [place] Chronic Pain Pain control [facility] Input Nonweightbearing of the left lower extremity Limited weightbearing on the right lower extremity Gentle range of motion of the left knee Discharge planning, case management consulted UTI possibly due to chronic Romeo catheter Chronic indwelling Romeo Replaced Romeo catheter Urine culture 3 types of organisms Continue cefepime complete 3-day course Follows [facility] urology Parkinson disease continue sinemet, baclofen Pt/OT consulted HTN Continue amlodipine, Imdur Somatic symptom disorder Continue Lamictal at bedtime Follow with psych while at [facility] CKD II monitor renal function avoid nephrotoxic agents Code Status FULL CODE Disposition To be determined Case management consult Admission and Anticipated Discharge Date Admission Date: February 15, 2021 Subjective Patient is seen and examined at bedside States feeling better today Left knee pain is much improved No new complaints Denies any chest pain, shortness of breath, dizziness, nausea, abdominal pain Review of Systems Review of Systems: All systems reviewed & are unremarkable except as noted in Subjective Physical Exam Physical Exam: Physical Exam: Vitals signs as noted above General Appearance:Chronic Ill appearing, no apparent distress Head: normocephalic, Atraumatic Eyes: normal inspection, EOMI Neck: supple, Trachea midline Respiratory/Chest: Normal breath sounds, CTA Cardiovascular: S1, S2, No murmur Abdomen/GI:Soft, Non tender, Bowel sounds present Extremities/Musculoskeletal:normal inspection, +Arthritic changes, edema Neurologic/Psych:AAOX3, grossly no focal neurological deficits Skin: normal color, warm Results & Data Results & Data ([facility]) Vital Signs (Past 12 Hours) Vital Signs Temp Pulse Resp BP Pulse Ox 02/17/21 12:20 37.0 C 77 18 144/77 H 94 02/17/21 06:58 36.5 C 60 18 149/65 H 95 Laboratory Results Short CBC 02/17/21 Range/Units 06:06 WBC 4.90 (4.8-10.8) K/uL Hgb 11.6 L (12.0-16.0) g/dL Hct 35.3 L (37-47) % Plt Count 326 (130-400) K/uL BMP 02/17/21 06:06 Sodium 142 Potassium 4.1 D Chloride 111 H Carbon Dioxide 24 BUN 13 Creatinine 0.79 Glucose 129 H Calcium 9.3
[2021-02-17] MEDS: MELATONIN 3 MG TAB PO SCH (20:18)
[2021-02-17] MEDS: EZETIMIBE 10 MG TABLET PO SCH (20:19)
[2021-02-17] MEDS: lamoTRIgine 25 MG TAB PO SCH (20:19)
[2021-02-17] MEDS: ENOXAPARIN INJ 40 MG/0.4 ML SYR SQ SCH (21:56)
[2021-02-18] MEDS: TOVIAZ~ORDER AWAITING ACTION SCH ×3 (00:05→16:12)
[2021-02-18] MEDS: traMADol HCL 50 MG TABLET PO PRN ×2 (00:44→04:46)
[2021-02-18] MEDS: MoRPHine SULFATE 2 MG/ML CARP IV PRN ×3 (02:57→21:06)
[2021-02-18 08:05] LABS: Calcium 9.5 mg/dl (8.5-10.1); Creatinine Clr Calc Pharmacy 65.8 ml/min; Est GFR (African American) 94.9 ml/min; Est GFR (Non-African American) 81.9 ml/min; Magnesium 1.9 mg/dl (1.8-2.4); Potassium 3.9 mmol/L (3.5-5.1)
[2021-02-18] MEDS: DICLOFENAC SOD 1% GEL 100 GM TUBE EXT SCH ×4 (08:33→21:15)
[2021-02-18] MEDS: amLODIPine BESYLATE 5 MG TAB PO SCH (08:33)
[2021-02-18] MEDS: LACTASE 3000 UNIT TAB PO SCH ×3 (08:33→16:53)
[2021-02-18] MEDS: CARBIDOPA/LEVODOPA 25/100MG TAB PO SCH ×3 (08:34→21:16)
[2021-02-18] MEDS: POTASSIUM CHLORIDE 10 MEQ TABCR PO SCH ×2 (08:34→21:16)
[2021-02-18] MEDS: ACETAMINOPHEN 500 MG TAB PO SCH ×2 (08:35→21:10)
[2021-02-18] MEDS: GABAPENTIN 300 MG CAP PO SCH ×3 (08:35→21:14)
[2021-02-18] MEDS: ASPIRIN 81 MG ECTAB PO SCH (08:36)
[2021-02-18] MEDS: PANTOprazole 40 MG TAB PO SCH (08:36)
[2021-02-18] MEDS: ISOSORBIDE MONO EXTENDED REL 30 MG TABCR PO SCH (08:36)
[2021-02-18] MEDS: DOCUSATE SODIUM/SENNA 50/8.6MG TAB PO SCH (08:36)
[2021-02-18] MEDS: BACLOFEN 10 MG TAB PO SCH ×4 (08:38→21:11)
[2021-02-18] MEDS: CEFEPIME 2,000 MG in SYRINGE 0 ML IV SCH ×2 (09:09→21:10)
[2021-02-18] MEDS: FERROUS SULFATE 325 MG TAB PO SCH (12:45)
--- NOTE | 2021-02-18 17:30 | Hospitalist Progress Note ---
Date of Service February 18, 2021 Assessment & Plan (1) Left knee pain: (2) Ambulatory dysfunction: (3) Chronic indwelling Romeo catheter: (4) UTI (urinary tract infection): (5) Parkinson disease: (6) CMT (Derttdn-Edfgr-Nisth disease): (7) Hypertension: (8) CKD (chronic kidney disease), stage III: Plan: Patient is a 76 yr female who has significant past medical history of parkinsonism, Shnwcdo-Vkohj-Cjvcy disease, HTN, HLD, history of TIA, somatic symptom disorder, CKD stage III, chronic indwelling Romeo catheter, history of recurrent UTIs, chronic back pain wheelchair-bound who presents to ED secondary to left knee pain and inability to bend left leg x1 day. 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 Right ankle surgery done in November and left done [place] 01/[address] Crain [place]oped[place] [facility] [place] Pain Pain control [facility] Input Nonweightbearing of the left lower extremity Limited weightbearing on the right lower extremity Gentle range of motion of the left knee Discharge planning, case management consulted Plan to discharge Home Vs SNF as able UTI possibly due to chronic Romeo catheter Chronic indwelling Romeo Replaced Romeo catheter Urine culture 3 types of organisms Continue cefepime complete 3-day course Follows [facility] urology Parkinson disease continue sinemet, baclofen Pt/OT consulted HTN Continue amlodipine, Imdur Somatic symptom disorder Continue Lamictal at bedtime Follow with psych while at [facility] CKD II monitor renal function avoid nephrotoxic agents Code Status FULL CODE Disposition To be determined Case management consult Admission and Anticipated Discharge Date Admission Date: February 15, 2021 Subjective Patient is seen and examined at bedside No new complaints Left knee pain much improved Denies any chest pain, shortness of breath, dizziness, nausea, abdominal pain Review of Systems Review of Systems: All systems reviewed & are unremarkable except as noted in Subjective Physical Exam Physical Exam: Physical Exam: Vitals signs as noted above General Appearance:Chronic Ill appearing, no apparent distress Head: normocephalic, Atraumatic Eyes: normal inspection, EOMI Neck: supple, Trachea midline Respiratory/Chest: Normal breath sounds, CTA Cardiovascular: S1, S2, No murmur Abdomen/GI:Soft, Non tender, Bowel sounds present Extremities/Musculoskeletal:normal inspection, +Arthritic changes, edema Neurologic/Psych:AAOX3, grossly no focal neurological deficits Skin: normal color, warm Results & Data Results & Data ([facility]) Vital Signs (Past 12 Hours) Vital Signs Temp Pulse Resp BP Pulse Ox 02/18/21 17:16 36.4 C L 64 18 119/75 95 02/18/21 07:27 36.6 C 64 18 134/81 95 02/18/21 05:49 66 127/75 Laboratory Results [facility] 02/18/21 07:23 Sodium 141 Potassium 3.9 Chloride 111 H Carbon Dioxide 23 BUN 14 Creatinine 0.72 Glucose 84 Calcium 9.5
[2021-02-18] MEDS: oxyCODONE HCL IR 5 MG TAB (IMMEDIATE RELEASE) PO PRN (18:35)
[2021-02-18] MEDS: lamoTRIgine 25 MG TAB PO SCH (21:12)
[2021-02-18] MEDS: ENOXAPARIN INJ 40 MG/0.4 ML SYR SQ SCH (21:14)
[2021-02-18] MEDS: MELATONIN 3 MG TAB PO SCH (21:17)
[2021-02-18] MEDS: EZETIMIBE 10 MG TABLET PO SCH (21:18)
[2021-02-19] MEDS: TOVIAZ~ORDER AWAITING ACTION SCH ×3 (01:06→17:23)
[2021-02-19] MEDS: GABAPENTIN 300 MG CAP PO SCH ×3 (07:33→21:48)
[2021-02-19] MEDS: FERROUS SULFATE 325 MG TAB PO SCH (07:33)
[2021-02-19] MEDS: POTASSIUM CHLORIDE 10 MEQ TABCR PO SCH ×2 (07:33→21:49)
[2021-02-19] MEDS: ASPIRIN 81 MG ECTAB PO SCH (07:33)
[2021-02-19] MEDS: CARBIDOPA/LEVODOPA 25/100MG TAB PO SCH ×3 (07:33→22:43)
[2021-02-19] MEDS: PANTOprazole 40 MG TAB PO SCH (07:34)
[2021-02-19] MEDS: LACTASE 3000 UNIT TAB PO SCH ×3 (07:34→17:30)
[2021-02-19] MEDS: ISOSORBIDE MONO EXTENDED REL 30 MG TABCR PO SCH (07:34)
[2021-02-19] MEDS: BACLOFEN 10 MG TAB PO SCH ×4 (07:35→21:46)
[2021-02-19] MEDS: amLODIPine BESYLATE 5 MG TAB PO SCH (07:35)
[2021-02-19 07:36] LABS: Hematocrit (blood only) 37.3 % (37-47); Hemoglobin 11.7 g/dL (12.0-16.0); Mean Corpuscular Hemoglobin 27.7 pg (25-34); Mean Corpuscular Hgb Conc 31.4 g/dL (32-36); Mean Corpuscular Volume 88.2 fL (80-100); Mean Platelet Volume 9.8 fL (7.4-10.4); Platelet Count 276 K/uL (130-400); RDW Coefficient of Variation 13.7 % (11.5-14.5); RDW Standard Deviation 43.7 fL (36.4-46.3); Red Blood Count 4.23 M/uL (4.2-5.4); White Blood Count 6.17 K/uL (4.8-10.8)
[2021-02-19] MEDS: ACETAMINOPHEN 500 MG TAB PO SCH ×2 (07:36→22:44)
[2021-02-19] MEDS: DICLOFENAC SOD 1% GEL 100 GM TUBE EXT SCH ×4 (07:37→21:46)
[2021-02-19] MEDS: DOCUSATE SODIUM/SENNA 50/8.6MG TAB PO SCH (07:46)
[2021-02-19 08:29] LABS: BUN Creatinine Ratio 19.3 (10-20); Calcium 9.6 mg/dl (8.5-10.1); Creatinine Clr Calc Pharmacy 76.4 ml/min; Est GFR (African American) 102.2 ml/min; Est GFR (Non-African American) 88.2 ml/min
[2021-02-19] MEDS: oxyCODONE HCL IR 5 MG TAB (IMMEDIATE RELEASE) PO PRN ×2 (11:30→19:30)
--- NOTE | 2021-02-19 17:02 | Hospitalist Progress Note ---
Date of Service February 19, 2021 Assessment & Plan (1) Left knee pain: (2) Ambulatory dysfunction: (3) Chronic indwelling Romeo catheter: (4) UTI (urinary tract infection): (5) Parkinson disease: (6) CMT (Fyxzfqm-Xivdo-Nmmmp disease): (7) Hypertension: (8) CKD (chronic kidney disease), stage III: Plan: Patient is a 76 yr female who has significant past medical history of parkinsonism, Xhammkd-Rrlxq-Qrsro disease, HTN, HLD, history of TIA, somatic symptom disorder, CKD stage III, chronic indwelling Romeo catheter, history of recurrent UTIs, chronic back pain wheelchair-bound who presents to ED secondary to left knee pain and inability to bend left leg x1 day. 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 Right ankle surgery done in November and left done on 01/[address] Crain of orthopedics [facility] [place] [facility] Orthopedics Input Nonweightbearing of the left lower extremity Limited weightbearing on the right lower extremity Gentle range of motion of the left knee Discharge planning, case management consulted Plan to discharge Home Vs SNF as able We will give diclofenac sodium to apply locally Awaiting to be placed UTI possibly due to chronic Romeo catheter Chronic indwelling Romeo Replaced Romeo catheter Urine culture 3 types of organisms Continue cefepime complete 3-day course Follows [facility] [place] urology Parkinson disease continue sinemet, baclofen Pt/OT consulted HTN Continue amlodipine, Imdur Somatic symptom disorder Continue Lamictal at bedtime Follow with psych while at [facility] CKD II monitor renal function avoid nephrotoxic agents Code Status FULL CODE Disposition To be determined Case management consult Admission and Anticipated Discharge Date Admission Date: February 15, 2021 Subjective 02/19/2021 The patient was seen and examined in medical floor She has been complaining of pain in the left knee and also left hand and remains weak and lethargic Denies any chest pain and/or palpitation, no shortness of breath Review of Systems Review of Systems: All systems reviewed and are unremarkable except as noted below Physical Exam Physical Exam: Lying in bed comfortably Constitutional: + ill appearing; no acute distress Eyes: PERRL, conjunctivae normal, anicteric sclerae ENMT: external ear and nose normal, oropharynx normal Neck: trachea midline, no thyromegaly Respiratory: no respiratory distress Auscultation: + diminished lung sounds and + crackles (Minimal crackles at the bases); no wheezes Cardiovascular: Rate/Rhythm: regular rate and regular rhythm; not tachycardic Heart Sounds: normal S1 and normal S2; no murmur Extremities: + edema (Both the legs are in braces) Gastrointestinal (Abdomen): Inspection/Auscultation: normal bowel sounds; abdomen not distended Percussion/Palpation: abdomen soft; abdomen nontender Musculoskeletal: Has arthritis involving left knee and other joints but nothing acute Neurologic: Alert, awake and oriented x3. Generally weak Results & Data Results & Data ([facility]) Vital Signs (Past 12 Hours) Vital Signs Temp Pulse Resp BP Pulse Ox 02/19/21 14:40 36.8 C 75 16 133/75 97 02/19/21 07:00 36.4 C L 57 L 14 126/76 97 Laboratory Results Short CBC 02/19/21 Range/Units 07:07 WBC 6.17 (4.8-10.8) K/uL Hgb 11.7 L (12.0-16.0) g/dL Hct 37.3 (37-47) % Plt Count 276 (130-400) K/uL BMP 02/19/21 07:07 Sodium 143 Potassium 4.0 Chloride 112 H Carbon Dioxide 25 BUN 12 Creatinine 0.62 Glucose 77 Calcium 9.6 Medications Administered Current Inpatient Medications Acetaminophen (Acetaminophen 325 Mg Tab) 650 mg PO Q4H PRN PRN Reason: pain/fever Stop: 03/17/21 20:44 Last Admin: 02/17/21 03:54 Dose: 650 mg Documented by: Acetaminophen (Acetaminophen 500 Mg Tab) 500 mg PO BID MARIBELL Stop: 03/17/21 21:29 Last Admin: 02/19/21 07:36 Dose: 500 mg Documented by: Al Hydrox/Mg Hydrox/Simethicone (Aluminum/Magnesium Susp 30 Ml Udc) 30 ml PO Q6H PRN PRN Reason: Dyspepsia Stop: 03/17/21 20:44 Albuterol (Albuterol 0.5% Neb Soln 2.5 Mg/0.5 Ml Vial) 5 mg INH Q4H PRN PRN Reason: Shortness Of Breath Stop: 03/17/21 20:44 Amlodipine Besylate (Amlodipine Besylate 5 Mg Tab) 10 mg PO DAILY MARIBELL Stop: 03/18/21 08:59 Last Admin: 02/19/21 07:35 Dose: 10 mg Documented by: Aspirin (Aspirin 81 Mg Ectab) 81 mg PO DAILY MARIBELL Stop: 03/18/21 08:59 Last Admin: 02/19/21 07:33 Dose: 81 mg Documented by: Baclofen (Baclofen 10 Mg Tab) 10 mg PO QID MARIBELL Stop: 03/17/21 20:59 Last Admin: 02/19/21 12:52 Dose: 10 mg Documented by: Carbidopa/Levodopa (Carbidopa/Levodopa 25/100mg Tab) 1 tab PO TID MARIBELL Stop: 03/17/21 20:59 Last Admin: 02/19/21 12:52 Dose: 1 tab Documented by: Diclofenac Sodium (Diclofenac Sod 1% Gel 100 Gm Tube) 4 gm EXT QID [facility] Stop: 03/17/21 20:44 Last Admin: 02/19/21 12:53 Dose: 4 gm Documented by: Ezetimibe (Ezetimibe 10 Mg Tablet) 10 mg PO HS MARIBELL Stop: 03/17/21 20:59 Last Admin: 02/18/21 21:18 Dose: 10 mg Documented by: Enoxaparin Sodium (Enoxaparin Inj 40 Mg/0.4 Ml Syr) 40 mg SQ Q24H MARIBELL Stop: 03/17/21 21:59 Last Admin: 02/18/21 21:14 Dose: 40 mg Documented by: Ferrous Sulfate (Ferrous Sulfate 325 Mg Tab) 325 mg PO QDL MARIBELL Stop: 03/18/21 11:29 Last Admin: 02/19/21 07:33 Dose: 325 mg Documented by: Gabapentin (Gabapentin 300 Mg Cap) 900 mg PO TID [facility] Stop: 03/17/21 21:59 Last Admin: 02/19/21 12:52 Dose: 900 mg Documented by: Isosorbide Mononitrate (Isosorbide [place] Extended Rel 30 Mg Tabcr) 30 mg PO QAM MARIBELL Stop: 03/18/21 08:59 Last Admin: 02/19/21 07:34 Dose: 30 mg Documented by: Lactase (Lactase 3000 Unit Tab) 3,000 units PO AC MARIBELL Stop: 03/18/21 07:29 Last Admin: 02/19/21 12:53 Dose: 3,000 units Documented by: Lamotrigine (Lamotrigine 25 Mg Tab) 75 mg PO HS MARIBELL Stop: 03/17/21 20:59 Last Admin: 02/18/21 21:12 Dose: 75 mg Documented by: Magnesium Hydroxide (Magnesium Hydroxide Susp 30 Ml Udc) 30 ml PO Q6H PRN PRN Reason: Constipation Stop: 03/17/21 20:44 Melatonin (Melatonin 3 Mg Tab) 4.5 mg PO HS [facility] Stop: 03/17/21 21:59 Last Admin: 02/18/21 21:17 Dose: 4.5 mg Documented by: Miscellaneous (Toviaz~Order Awaiting Action) 1 ea N/A QS [facility] Stop: 03/17/21 21:29 Last Admin: 02/19/21 07:36 Dose: Not Given Documented by: Morphine Sulfate (Morphine Sulfate 2 Mg/Ml Carp) 2 mg IV Q3H PRN PRN Reason: Pain Stop: 03/01/21 19:42 Last Admin: 02/18/21 21:06 Dose: 2 mg Documented by: Non-Formulary Medication (Lidocaine [Aspercreme (Lidocaine Hcl)]) 1 patch TOP DAILY [facility] Stop: 03/18/21 08:59 Last Admin: 02/19/21 07:44 Dose: Not Given Documented by: Ondansetron HCl (Ondansetron Inj 2 Mg/Ml 2 Ml Vial) 4 mg IV Q6H PRN PRN Reason: Nausea Stop: 03/17/21 20:44 Oxycodone HCl (Oxycodone Hcl Ir 5 Mg Tab (Immediate Release)) 5 mg PO Q4H PRN PRN Reason: Pain Stop: 03/04/21 05:32 Last Admin: 02/19/21 11:30 Dose: 5 mg Documented by: Pantoprazole Sodium (Pantoprazole 40 Mg Tab) 40 mg PO DAILY [facility] Stop: 03/18/21 08:59 Last Admin: 02/19/21 07:34 Dose: 40 mg Documented by: Polyethylene Glycol (Polyethylene (Miralax) 17 Gm Pack) 17 gm PO DAILY PRN PRN Reason: Constipation Stop: 03/17/21 20:44 Potassium Chloride (Potassium Chloride 10 Meq Tabcr) 10 meq PO BID [facility] Stop: 03/17/21 20:59 Last Admin: 02/19/21 07:33 Dose: 10 meq Documented by: Senna/Docusate Sodium (Docusate Sodium/Senna 50/8.6mg Tab) 1 tab PO QAM [facility] Stop: 03/18/21 08:59 Last Admin: 02/19/21 07:46 Dose: 1 tab Documented by:
[2021-02-19] MEDS: EZETIMIBE 10 MG TABLET PO SCH (21:46)
[2021-02-19] MEDS: MELATONIN 3 MG TAB PO SCH (21:47)
[2021-02-19] MEDS: lamoTRIgine 25 MG TAB PO SCH (21:47)
[2021-02-19] MEDS: ENOXAPARIN INJ 40 MG/0.4 ML SYR SQ SCH (21:49)
[2021-02-20] MEDS: MoRPHine SULFATE 2 MG/ML CARP IV PRN (00:11)
[2021-02-20] MEDS: TOVIAZ~ORDER AWAITING ACTION SCH ×2 (01:16→07:34)
[2021-02-20] MEDS: oxyCODONE HCL IR 5 MG TAB (IMMEDIATE RELEASE) PO PRN ×3 (01:46→23:12)
[2021-02-20] MEDS: LACTASE 3000 UNIT TAB PO SCH ×3 (07:33→16:57)
[2021-02-20] MEDS: POTASSIUM CHLORIDE 10 MEQ TABCR PO SCH ×2 (08:36→21:03)
[2021-02-20] MEDS: ACETAMINOPHEN 500 MG TAB PO SCH ×2 (08:37→21:02)
[2021-02-20] MEDS: PANTOprazole 40 MG TAB PO SCH (08:37)
[2021-02-20] MEDS: ASPIRIN 81 MG ECTAB PO SCH (08:38)
[2021-02-20] MEDS: DOCUSATE SODIUM/SENNA 50/8.6MG TAB PO SCH (08:38)
[2021-02-20] MEDS: ISOSORBIDE MONO EXTENDED REL 30 MG TABCR PO SCH (08:39)
[2021-02-20] MEDS: GABAPENTIN 300 MG CAP PO SCH ×3 (08:39→21:03)
[2021-02-20] MEDS: amLODIPine BESYLATE 5 MG TAB PO SCH (08:40)
[2021-02-20] MEDS: BACLOFEN 10 MG TAB PO SCH ×4 (08:40→21:03)
[2021-02-20] MEDS: CARBIDOPA/LEVODOPA 25/100MG TAB PO SCH ×3 (08:41→21:04)
[2021-02-20] MEDS: DICLOFENAC SOD 1% GEL 100 GM TUBE EXT SCH ×4 (08:42→21:06)
[2021-02-20] MEDS: FERROUS SULFATE 325 MG TAB PO SCH (11:55)
--- NOTE | 2021-02-20 17:18 | Hospitalist Progress Note ---
Date of Service February 20, 2021 Assessment & Plan (1) Left knee pain: (2) Ambulatory dysfunction: (3) Chronic indwelling Romeo catheter: (4) UTI (urinary tract infection): (5) Parkinson disease: (6) CMT (Htfybrv-Odbzi-Eiwdi disease): (7) Hypertension: (8) CKD (chronic kidney disease), stage III: Plan: Patient is a 76 yr female who has significant past medical history of parkinsonism, Zzdjwhu-Kdksc-Gqbfs disease, HTN, HLD, history of TIA, somatic symptom disorder, CKD stage III, chronic indwelling Romeo catheter, history of recurrent UTIs, chronic back pain wheelchair-bound who presents to ED secondary to left knee pain and inability to bend left leg x1 day. 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 Right ankle surgery done in November and left done on 01/[address] Crain of orthopedics [facility] Input and recommendation Nonweightbearing of the left lower extremity Limited weightbearing on the right lower extremity Gentle range of motion of the left knee Discharge planning, case management consulted Still has minimal pain at rest Awaiting placement UTI possibly due to chronic Romeo catheter Chronic indwelling Romeo Replaced Romeo catheter Urine culture 3 types of organisms Continue cefepime complete 3-day course Follows [facility] urology-we will have outpatient appointment has a follow-up Parkinson disease continue sinemet, baclofen Pt/OT consulted-we will need to go to rehab HTN Continue amlodipine, Imdur Somatic symptom disorder Continue Lamictal at bedtime Follow with psych while at [facility] CKD II monitor renal function avoid nephrotoxic agents Code Status FULL CODE Disposition To be determined Case management consult Admission and Anticipated Discharge Date Admission Date: February 15, 2021 Subjective 02/19/2021 The patient was seen and examined in medical floor She has been complaining of pain in the left knee and also left hand and remains weak and lethargic Denies any chest pain and/or palpitation, no shortness of breath 02/20/2021 The patient was seen and examined in medical floor She has been stable but still complains of pain in the knee joint and the legs Denies any chest pain, palpitation or shortness of breath Denies any nausea and/or vomiting Review of Systems Review of Systems: All systems reviewed and are unremarkable except as noted below Physical Exam Physical Exam: Lying in bed comfortably Constitutional: + ill appearing; no acute distress Eyes: PERRL, conjunctivae normal, anicteric sclerae ENMT: external ear and nose normal, oropharynx normal Neck: trachea midline, no thyromegaly Respiratory: no respiratory distress Auscultation: + diminished lung sounds and + crackles (Minimal crackles at the bases); no wheezes Cardiovascular: Rate/Rhythm: regular rate and regular rhythm; not tachycardic Heart Sounds: normal S1 and normal S2; no murmur Extremities: + edema (Both the legs are in braces) Gastrointestinal (Abdomen): Inspection/Auscultation: normal bowel sounds; abdomen not distended Percussion/Palpation: abdomen soft; abdomen nontender Musculoskeletal: Has osteoarthritic changes involving the joints Neurologic: Alert, awake and oriented. Generally very weak and lethargic Lymphatic: no cervical or axillary lymphadenopathy Results & Data Results & Data ([facility]) Vital Signs (Past 12 Hours) Vital Signs Temp Pulse Resp BP Pulse Ox 02/20/21 15:47 37.3 C 75 18 146/80 H 97 02/20/21 08:33 78 154/83 H 02/20/21 06:59 36.3 C L 71 18 137/82 92 Medications Administered Current Inpatient Medications Acetaminophen (Acetaminophen 325 Mg Tab) 650 mg PO Q4H PRN PRN Reason: pain/fever Stop: 03/17/21 20:44 Last Admin: 02/17/21 03:54 Dose: 650 mg Documented by: Acetaminophen (Acetaminophen 500 Mg Tab) 500 mg PO BID MARIBELL Stop: 03/17/21 21:29 Last Admin: 02/20/21 08:37 Dose: 500 mg Documented by: Al Hydrox/Mg Hydrox/Simethicone (Aluminum/Magnesium Susp 30 Ml Udc) 30 ml PO Q6H PRN PRN Reason: Dyspepsia Stop: 03/17/21 20:44 Albuterol (Albuterol 0.5% Neb Soln 2.5 Mg/0.5 Ml Vial) 5 mg INH Q4H PRN PRN Reason: Shortness Of Breath Stop: 03/17/21 20:44 Amlodipine Besylate (Amlodipine Besylate 5 Mg Tab) 10 mg PO DAILY MARIBELL Stop: 03/18/21 08:59 Last Admin: 02/20/21 08:40 Dose: 10 mg Documented by: Aspirin (Aspirin 81 Mg Ectab) 81 mg PO DAILY MARIBELL Stop: 03/18/21 08:59 Last Admin: 02/20/21 08:38 Dose: 81 mg Documented by: Baclofen (Baclofen 10 Mg Tab) 10 mg PO QID MARIBELL Stop: 03/17/21 20:59 Last Admin: 02/20/21 16:58 Dose: 10 mg Documented by: Carbidopa/Levodopa (Carbidopa/Levodopa 25/100mg Tab) 1 tab PO TID MARIBELL Stop: 03/17/21 20:59 Last Admin: 02/20/21 14:21 Dose: 1 tab Documented by: Diclofenac Sodium (Diclofenac Sod 1% Gel 100 Gm Tube) 4 gm EXT QID [facility] Stop: 03/17/21 20:44 Last Admin: 02/20/21 16:59 Dose: 4 gm Documented by: Ezetimibe (Ezetimibe 10 Mg Tablet) 10 mg PO HS [facility] Stop: 03/17/21 20:59 Last Admin: 02/19/21 21:46 Dose: 10 mg Documented by: Enoxaparin Sodium (Enoxaparin Inj 40 Mg/0.4 Ml Syr) 40 mg SQ Q24H [facility] Stop: 03/17/21 21:59 Last Admin: 02/19/21 21:49 Dose: 40 mg Documented by: Ferrous Sulfate (Ferrous Sulfate 325 Mg Tab) 325 mg PO QDL MARIBELL Stop: 03/18/21 11:29 Last Admin: 02/20/21 11:55 Dose: 325 mg Documented by: Gabapentin (Gabapentin 300 Mg Cap) 900 mg PO TID [facility] Stop: 03/17/21 21:59 Last Admin: 02/20/21 14:21 Dose: 900 mg Documented by: Isosorbide Mononitrate (Isosorbide [place] Extended Rel 30 Mg Tabcr) 30 mg PO QAM [facility] Stop: 03/18/21 08:59 Last Admin: 02/20/21 08:39 Dose: 30 mg Documented by: Lactase (Lactase 3000 Unit Tab) 3,000 units PO AC MARIBELL Stop: 03/18/21 07:29 Last Admin: 02/20/21 16:57 Dose: 3,000 units Documented by: Lamotrigine (Lamotrigine 25 Mg Tab) 75 mg PO HS MARIBELL Stop: 03/17/21 20:59 Last Admin: 02/19/21 21:47 Dose: 75 mg Documented by: Magnesium Hydroxide (Magnesium Hydroxide Susp 30 Ml Udc) 30 ml PO Q6H PRN PRN Reason: Constipation Stop: 03/17/21 20:44 Melatonin (Melatonin 3 Mg Tab) 4.5 mg PO HS MARIBELL Stop: 03/17/21 21:59 Last Admin: 02/19/21 21:47 Dose: 4.5 mg Documented by: Morphine Sulfate (Morphine Sulfate 2 Mg/Ml Carp) 2 mg IV Q3H PRN PRN Reason: Pain Stop: 03/01/21 19:42 Last Admin: 02/20/21 00:11 Dose: 2 mg Documented by: Non-Formulary Medication (Lidocaine [Aspercreme (Lidocaine Hcl)]) 1 patch TOP DAILY MARIBELL Stop: 03/18/21 08:59 Last Admin: 02/20/21 08:45 Dose: Not Given Documented by: Ondansetron HCl (Ondansetron Inj 2 Mg/Ml 2 Ml Vial) 4 mg IV Q6H PRN PRN Reason: Nausea Stop: 03/17/21 20:44 Oxycodone HCl (Oxycodone Hcl Ir 5 Mg Tab (Immediate Release)) 5 mg PO Q4H PRN PRN Reason: Pain Stop: 03/04/21 05:32 Last Admin: 02/20/21 11:58 Dose: 5 mg Documented by: Pantoprazole Sodium (Pantoprazole 40 Mg Tab) 40 mg PO DAILY MARIBELL Stop: 03/18/21 08:59 Last Admin: 02/20/21 08:37 Dose: 40 mg Documented by: Polyethylene Glycol (Polyethylene (Miralax) 17 Gm Pack) 17 gm PO DAILY PRN PRN Reason: Constipation Stop: 03/17/21 20:44 Potassium Chloride (Potassium Chloride 10 Meq Tabcr) 10 meq PO BID MARIBELL Stop: 03/17/21 20:59 Last Admin: 02/20/21 08:36 Dose: 10 meq Documented by: Senna/Docusate Sodium (Docusate Sodium/Senna 50/8.6mg Tab) 1 tab PO QAM [facility] Stop: 03/18/21 08:59 Last Admin: 02/20/21 08:38 Dose: 1 tab Documented by: Tolterodine Tartrate (Tolterodine Tartrate La 2 Mg Capcr) 2 mg PO DAILY [facility] Stop: 03/23/21 08:59
[2021-02-20] MEDS: MELATONIN 3 MG TAB PO SCH (21:01)
[2021-02-20] MEDS: lamoTRIgine 25 MG TAB PO SCH (21:01)
[2021-02-20] MEDS: EZETIMIBE 10 MG TABLET PO SCH (21:05)
[2021-02-20] MEDS: ENOXAPARIN INJ 40 MG/0.4 ML SYR SQ SCH (21:12)
--- NOTE | 2021-02-21 08:24 | Pain Management Consultation ---
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 Patient states that her pain is well controlled. Do not recommend any medications changes. Continue baclofen, gabapentin, oxycodone. Leave IV morphine order in case of breakthrough pain. 2. Patient is awaiting placement to rehab facility. 3. She has been seen in the pain clinic 2 months ago and a genicular nerve block/radiofrequency ablation has been previously offered. This is still an option for her should she want to proceed. She is aware that she will need to be cleared from urinary tract infection for these procedures to be performed. 4. We will sign off on the patient. Please call with any questions or concerns. History of Present Illness Reason for Consultation: left knee pain Attending Physician: Brenna Powers MD History of Present Illness This is a 76 year old female with a significant history of Xqlwltn-Vbzsc-Hnahk disease, ambulatory dysfunction, flexion contractures, osteoarthritis, recurrent UTIs, and Parkinson disease. She is wheelchair bound. She was admitted on 02/15/21 for left knee pain and inability to flex the knee. She does have a significant amount of orthopedic surgeries including shoulder replacement, knee replacements, Achilles lengthening, flexor tension releases. On 02/16/21 she did have a closed reduction of the left knee arthroplasty by Dr. Layne. In regards to pain post procedure she is reporting adequate pain relief. She is also chronically using Voltaren gel, baclofen 10 mg 4 times daily, and gabapenti n 900 mg 3 times daily. She is ordered Oxycodone 5mg every 4 hours as needed, IV morphine 2 mg if needed for breakthrough pain. Yesterday she did use the oxycodone 3 times and the IV morphine once. Patient denies any complaints at this time. She states that she is moving her bowels. Case discussed with Dr. Neisha Rivera Allergies Allergy/AdvReac Type Severity Reaction Status Date / Time bee venom protein (honey bee) Allergy Severe ANAPHYLAXIS Verified 02/16/21 13:59 shellfish derived Allergy Severe anaphylaxis Verified 02/16/21 13:59 Sulfa (Sulfonamide Allergy Severe ANAPHYLAXIS Verified 02/16/21 13:59 Antibiotics) Home Medications Medication Instructions Recorded Confirmed Type carbidopa 25 mg-levodopa 100 mg 1 tab PO TID 06/21/19 02/15/21 History tablet ferrous sulfate 325 mg (65 mg 325 mg PO QDL 06/21/19 02/15/21 History iron) tablet ezetimibe 10 mg tablet 10 mg PO HS 11/01/20 02/15/21 History isosorbide mononitrate 30 mg 30 mg PO QAM 11/01/20 02/15/21 History tablet,extended release 24 hr lactase 3,000 unit tablet 3,000 unit PO AC 11/01/20 02/15/21 History docusate sodium 100 mg capsule 100 mg PO DAILY PRN 11/16/20 02/15/21 History acetaminophen 325 mg capsule 650 mg PO Q4H PRN cap MDD 3 12/20/20 02/15/21 History GRAMS/24 HOURS. acetaminophen 500 mg tablet 1,000 mg PO BID tab 12/20/20 02/15/21 History (Tylenol Extra Strength) albuterol sulfate 2.5 mg/0.5 mL 5 mg INHALATION Q4H PRN 12/20/20 02/15/21 History solution for nebulization amlodipine 10 mg tablet 10 mg PO DAILY 12/20/20 02/15/21 History aspirin 81 mg tablet,delayed 81 mg PO DAILY 12/20/20 02/15/21 History release (Adult Aspirin Regimen) baclofen 10 mg tablet 10 mg PO QID 12/20/20 02/15/21 History diclofenac sodium 1 % topical gel 4 g TOPICAL QID 12/20/20 02/15/21 History fesoterodine 4 mg tablet,extended 4 mg PO QAM 12/20/20 02/15/21 History release 24 hr (Toviaz) lamotrigine 25 mg tablet (Lamictal) 75 mg PO HS 12/20/20 02/15/21 History lidocaine 4 % topical patch 1 patch TOPICAL DAILY 12/20/20 02/15/21 History (Aspercreme (lidocaine)) melatonin 5 mg capsule 5 mg PO HS cap 12/20/20 02/15/21 History omeprazole 20 mg capsule,delayed 20 mg PO DAILY 12/20/20 02/15/21 History release polyethylene glycol 3350 17 17 g PO DAILY PRN 12/20/20 02/15/21 History gram/dose oral powder (Miralax) potassium chloride 10 mEq 10 meq PO BID 12/20/20 02/15/21 History tablet,extended release tramadol 50 mg tablet 50 mg PO Q4H PRN tab 12/20/20 02/15/21 History gabapentin 600 mg tablet 900 mg PO TID 02/15/21 02/15/21 History Patient History Medical History Ambulatory dysfunction Anemia Chronic anticoagulation Chronic back pain Chronic knee pain after total replacement of left knee joint Chronic left shoulder pain Chronic pain CKD (chronic kidney disease), stage III CMT (Pxualhq-Ueofy-Bffvz disease) Degenerative disc disease 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 GERD (gastroesophageal reflux disease) Hearing loss Hearing loss in left ear Hyperlipidemia Hypertension Hypothyroidism Insomnia Lactose intolerance Migraine Nausea and vomiting after administration of anesthetic agent Obesity Osteoarthritis Parkinson disease Recurrent UTI Renal lesion Repeated falls Spinal stenosis Transient cerebral ischemia Trigeminal neuralgia Unspecified abnormalities of gait and mobility Surgical History History of appendectomy History of bilateral cataract extraction History of bilateral tubal ligation History of bladder surgery botox injections into bladder History of bladder suspension procedure x2 History of brain surgery "microvascular decompression" X2 @ [facility] 2009? History of colonoscopy with polypectomy History of dilatation and curettage History of esophagogastroduodenoscopy (EGD) History of fusion of cervical spine C3-C6; normal ROM History of left breast biopsy x2--benign History of lumbar discectomy L4-L5 History of mandibular surgery x2 2007 after accident--1st time wired shut 2nd sx metal jaw put in---normal ROM History of open reduction and internal fixation (ORIF) procedure right ankle History of partial hysterectomy History of shoulder surgery x4 on left History of surgery brain stimulator removed 1 yr after placed History of surgery on arm right x2 d/t dog bite History of surgery on right wrist fx repair, no hardware History of tooth extraction History of total left knee replacement (TKR) History of total right knee replacement (TKR) History of wisdom tooth extraction Status post correction of deviated nasal septum Status post deep brain stimulator placement 2009 @ [facility] Family History Son Family history of reaction to anesthesia nausea/vomiting Family history of diabetes mellitus Son Family history of reaction to anesthesia nausea/vomiting Son Family history of reaction to anesthesia nausea/vomiting Father Family history of diabetes mellitus Mother Family history of diabetes mellitus Family hx of colon cancer Grandmother (Paternal) Family history of diabetes mellitus Social History Smoking Status: Never smoker Second Hand Exposure: No; Hx Alcohol Use: No Hx Substance Use: No Preferred Language: Czech Communication Ability: Effective Visual Impairment: No Limitations Hearing Ability: Normal [place] Agent Required: No Beliefs That Will Affect Care: None marital status: Unknown Current Living Situation: Family Current Living Situation Comment: lives with son and DIL current occupational status: retired Feels Safe at Home: Yes Safety Concerns: Feels Safe At This Time Assistive Devices: None Physical Exam Physical Exam: GENERAL: This is a 76 year old female. She is drowsy but arousable. HEAD/FACE: Normocephalic and atraumatic. EYES: No drainage or conjunctival injection. ENT: Nose without bleeding or discharge. Oral mucosa slightly dry. NECK: Full ROM without apparent pain. No swelling or masses noted. RESPIRATORY: Patient with unlabored breathing. No signs of respiratory distress. CHEST/AXILLA: Chest movement symmetrical. No deformities noted. ABDOMEN/GI: No distension SKIN: [place], warm and dry. No rash noted. MS/EXTREMITY: Bilateral CAM boots on the ankles. Knee brace on the left. There are fairly significant flexion contractures of the left hand. NEURO: Alert and appears oriented. Speech is fluent. Cranial Nerves are grossly intact. PSYCH: Alert, pleasant, affect is calm
[2021-02-21] MEDS: LACTASE 3000 UNIT TAB PO SCH ×3 (09:25→17:06)
[2021-02-21] MEDS: ACETAMINOPHEN 500 MG TAB PO SCH ×2 (09:27→20:59)
[2021-02-21] MEDS: amLODIPine BESYLATE 5 MG TAB PO SCH (09:29)
[2021-02-21] MEDS: ASPIRIN 81 MG ECTAB PO SCH (09:30)
[2021-02-21] MEDS: BACLOFEN 10 MG TAB PO SCH ×4 (09:32→20:59)
[2021-02-21] MEDS: CARBIDOPA/LEVODOPA 25/100MG TAB PO SCH ×3 (09:33→20:59)
[2021-02-21] MEDS: DICLOFENAC SOD 1% GEL 100 GM TUBE EXT SCH ×4 (09:34→21:03)
[2021-02-21] MEDS: DOCUSATE SODIUM/SENNA 50/8.6MG TAB PO SCH (09:36)
[2021-02-21] MEDS: GABAPENTIN 300 MG CAP PO SCH ×3 (09:38→20:58)
[2021-02-21] MEDS: ISOSORBIDE MONO EXTENDED REL 30 MG TABCR PO SCH (09:38)
[2021-02-21] MEDS: PANTOprazole 40 MG TAB PO SCH (09:39)
[2021-02-21] MEDS: POTASSIUM CHLORIDE 10 MEQ TABCR PO SCH ×2 (09:40→20:56)
[2021-02-21] MEDS: TOLTERODINE TARTRATE LA 2 MG CAPCR PO SCH (09:41)
[2021-02-21] MEDS: oxyCODONE HCL IR 5 MG TAB (IMMEDIATE RELEASE) PO PRN (09:42)
[2021-02-21] MEDS: FERROUS SULFATE 325 MG TAB PO SCH (11:27)
--- NOTE | 2021-02-21 15:49 | Hospitalist Progress Note ---
Date of Service February 21, 2021 Assessment & Plan (1) Left knee pain: (2) Ambulatory dysfunction: (3) Chronic indwelling Romeo catheter: (4) UTI (urinary tract infection): (5) Parkinson disease: (6) CMT (Zeohfuz-Suzdf-Ezqjz disease): (7) Hypertension: (8) CKD (chronic kidney disease), stage III: Plan: Patient is a 76 yr female who has significant past medical history of parkinsonism, Gnqsxeh-Pfyvb-Bbbau disease, HTN, HLD, history of TIA, somatic symptom disorder, CKD stage III, chronic indwelling Romeo catheter, history of recurrent UTIs, chronic back pain wheelchair-bound who presents to ED secondary to left knee pain and inability to bend left leg x1 day. 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 Right ankle surgery done in November and left done on 01/[address] Crain of orthopedics [facility] Input and recommendation Nonweightbearing of the left lower extremity Limited weightbearing on the right lower extremity Gentle range of motion of the left knee Discharge planning, case management consulted Pain management consulted - recommends continue regimen of baclofen, gabapentin, oxycodone, prn IV morphine, could consider genicular nerve block/RFA Awaiting placement UTI possibly due to chronic Romeo catheter Chronic indwelling Romeo Replaced Romeo catheter Urine culture 3 types of organisms, skin sadie, no active infection Completed cefepime 3-day course Follows [facility] [place]-we will have outpatient appointment has a follow-up Parkinson disease continue sinemet, baclofen Pt/OT consulted-we will need to go to rehab HTN Continue amlodipine, Imdur Somatic symptom disorder Continue Lamictal at bedtime CKD II monitor renal function avoid nephrotoxic agents Code Status FULL CODE DVT ppx: SQ Lovenox Disposition awaiting rehab placement FULL CODE Pt was seen and examined in collaboration with Dr. Johnson, please see addendum Admission and Anticipated Discharge Date Admission Date: February 15, 2021 Supervising Physician Co-Signing Physician Notes Attending addendum The patient was seen and examined in medical floor She remained stable and has been complaining of minimal pain involving the legs especially left knee Denies any other significant symptoms On examination Lying in bed comfortably Hemodynamically stable Chestdecreased breath sounds HeartS1-S2, regular Abdomenbenign Extremitiesboth the legs are in braces Her labs and imaging studies reviewed Agree with assessment and plan as outlined above by Estrella johnson Subjective Patient was seen and examined in room 377-2. Follow-up L Knee subluxation with hx of TKA status post left knee closed reduction POD #5. Currently complains of pain to ankle and back. Denies f/c/s, chest pain, sob, n/v/d, abdominal pain. Overall decreased appetite but tolerating diet. Is anticipating discharge to SNF. Review of Systems Review of Systems: All systems reviewed & are unremarkable except as noted in HPI & below Physical Exam Physical Exam: Gen: WD/WN, F, chronically ill appearing, NAD, A&O x3 basics HEENT: Normocephalic, atraumatic, conjunctivae moist, sclerae anicteric, mucous membranes moist. Lung: Clear to Auscultation bilaterally, no wheezes/rales/rhonchi Heart: Regular rate, regular rhythm, no murmurs, rubs, or gallops Abdomen: Soft, NT, ND +BS x 4 Extremities: b/l cam boots in place Skin: Warm, no rash, negative turgor. : +Romeo cath Results & Data Results & Data ([facility]) Medications Administered Current Inpatient Medications Acetaminophen (Acetaminophen 325 Mg Tab) 650 mg PO Q4H PRN PRN Reason: pain/fever Stop: 03/17/21 20:44 Last Admin: 02/17/21 03:54 Dose: 650 mg Documented by: Acetaminophen (Acetaminophen 500 Mg Tab) 500 mg PO BID MARIBELL Stop: 03/17/21 21:29 Last Admin: 02/21/21 09:27 Dose: 500 mg Documented by: Al Hydrox/Mg Hydrox/Simethicone (Aluminum/Magnesium Susp 30 Ml Udc) 30 ml PO Q6H PRN PRN Reason: Dyspepsia Stop: 03/17/21 20:44 Albuterol (Albuterol 0.5% Neb Soln 2.5 Mg/0.5 Ml Vial) 5 mg INH Q4H PRN PRN Reason: Shortness Of Breath Stop: 03/17/21 20:44 Amlodipine Besylate (Amlodipine Besylate 5 Mg Tab) 10 mg PO DAILY MAR[facility]ELL Stop: 03/18/21 08:59 Last Admin: 02/21/21 09:29 Dose: 10 mg Documented by: Aspirin (Aspirin 81 Mg Ectab) 81 mg PO DAILY MARIBELL Stop: 03/18/21 08:59 Last Admin: 02/21/21 09:30 Dose: 81 mg Documented by: Baclofen (Baclofen 10 Mg Tab) 10 mg PO QID [facility]ELL Stop: 03/17/21 20:59 Last Admin: 02/21/21 13:22 Dose: 10 mg Documented by: Carbidopa/Levodopa (Carbidopa/Levodopa 25/100mg Tab) 1 tab PO TID MARIBELL Stop: 03/17/21 20:59 Last Admin: 02/21/21 13:25 Dose: 1 tab Documented by: Diclofenac Sodium (Diclofenac Sod 1% Gel 100 Gm Tube) 4 gm EXT QID [facility] Stop: 03/17/21 20:44 Last Admin: 02/21/21 13:22 Dose: 4 gm Documented by: Ezetimibe (Ezetimibe 10 Mg Tablet) 10 mg PO HS [facility] Stop: 03/17/21 20:59 Last Admin: 02/20/21 21:05 Dose: 10 mg Documented by: Enoxaparin Sodium (Enoxaparin Inj 40 Mg/0.4 Ml Syr) 40 mg SQ Q24H [facility] Stop: 03/17/21 21:59 Last Admin: 02/20/21 21:12 Dose: 40 mg Documented by: Ferrous Sulfate (Ferrous Sulfate 325 Mg Tab) 325 mg PO QDL [facility] Stop: 03/18/21 11:29 Last Admin: 02/21/21 11:27 Dose: 325 mg Documented by: Gabapentin (Gabapentin 300 Mg Cap) 900 mg PO TID MARIBELL Stop: 03/17/21 21:59 Last Admin: 02/21/21 13:27 Dose: 900 mg Documented by: Isosorbide Mononitrate (Isosorbide [place] Extended Rel 30 Mg Tabcr) 30 mg PO QAM [facility] Stop: 03/18/21 08:59 Last Admin: 02/21/21 09:38 Dose: 30 mg Documented by: Lactase (Lactase 3000 Unit Tab) 3,000 units PO AC MARIBELL Stop: 03/18/21 07:29 Last Admin: 02/21/21 11:27 Dose: 3,000 units Documented by: Lamotrigine (Lamotrigine 25 Mg Tab) 75 mg PO HS MARIBELL Stop: 03/17/21 20:59 Last Admin: 02/20/21 21:01 Dose: 75 mg Documented by: Magnesium Hydroxide (Magnesium Hydroxide Susp 30 Ml Udc) 30 ml PO Q6H PRN PRN Reason: Constipation Stop: 03/17/21 20:44 Melatonin (Melatonin 3 Mg Tab) 4.5 mg PO HS MARIBELL Stop: 03/17/21 21:59 Last Admin: 02/20/21 21:01 Dose: 4.5 mg Documented by: Morphine Sulfate (Morphine Sulfate 2 Mg/Ml Carp) 2 mg IV Q3H PRN PRN Reason: Pain Stop: 03/01/21 19:42 Last Admin: 02/20/21 00:11 Dose: 2 mg Documented by: Non-Formulary Medication (Lidocaine [Aspercreme (Lidocaine Hcl)]) 1 patch TOP DAILY [facility]ELL Stop: 03/18/21 08:59 Last Admin: 02/21/21 10:59 Dose: Not Given Documented by: Ondansetron HCl (Ondansetron Inj 2 Mg/Ml 2 Ml Vial) 4 mg IV Q6H PRN PRN Reason: Nausea Stop: 03/17/21 20:44 Oxycodone HCl (Oxycodone Hcl Ir 5 Mg Tab (Immediate Release)) 5 mg PO Q4H PRN PRN Reason: Pain Stop: 03/04/21 05:32 Last Admin: 02/21/21 09:42 Dose: 5 mg Documented by: Pantoprazole Sodium (Pantoprazole 40 Mg Tab) 40 mg PO DAILY MARIBELL Stop: 03/18/21 08:59 Last Admin: 02/21/21 09:39 Dose: 40 mg Documented by: Polyethylene Glycol (Polyethylene (Miralax) 17 Gm Pack) 17 gm PO DAILY PRN PRN Reason: Constipation Stop: 03/17/21 20:44 Potassium Chloride (Potassium Chloride 10 Meq Tabcr) 10 meq PO BID [facility]ELL Stop: 03/17/21 20:59 Last Admin: 02/21/21 09:40 Dose: 10 meq Documented by: Senna/Docusate Sodium (Docusate Sodium/Senna 50/8.6mg Tab) 1 tab PO QAM [facility] Stop: 03/18/21 08:59 Last Admin: 02/21/21 09:36 Dose: 1 tab Documented by: Tolterodine Tartrate (Tolterodine Tartrate La 2 Mg Capcr) 2 mg PO DAILY [facility] Stop: 03/23/21 08:59 Last Admin: 02/21/21 09:41 Dose: 2 mg Documented by:
[2021-02-21] MEDS: MoRPHine SULFATE 2 MG/ML CARP IV PRN (19:32)
[2021-02-21] MEDS: lamoTRIgine 25 MG TAB PO SCH (20:56)
[2021-02-21] MEDS: MELATONIN 3 MG TAB PO SCH (20:57)
[2021-02-21] MEDS: EZETIMIBE 10 MG TABLET PO SCH (20:58)
[2021-02-21] MEDS: ENOXAPARIN INJ 40 MG/0.4 ML SYR SQ SCH (21:00)
[2021-02-22] MEDS: ACETAMINOPHEN 325 MG TAB PO PRN (03:30)
[2021-02-22] MEDS: MoRPHine SULFATE 2 MG/ML CARP IV PRN ×3 (04:38→15:49)
[2021-02-22] MEDS: ISOSORBIDE MONO EXTENDED REL 30 MG TABCR PO SCH (08:27)
[2021-02-22] MEDS: PANTOprazole 40 MG TAB PO SCH (08:28)
[2021-02-22] MEDS: amLODIPine BESYLATE 5 MG TAB PO SCH (08:29)
[2021-02-22] MEDS: ASPIRIN 81 MG ECTAB PO SCH (08:29)
[2021-02-22] MEDS: TOLTERODINE TARTRATE LA 2 MG CAPCR PO SCH (08:30)
[2021-02-22] MEDS: DOCUSATE SODIUM/SENNA 50/8.6MG TAB PO SCH (08:30)
[2021-02-22] MEDS: LACTASE 3000 UNIT TAB PO SCH ×3 (08:31→17:42)
[2021-02-22] MEDS: DICLOFENAC SOD 1% GEL 100 GM TUBE EXT SCH ×4 (08:32→21:49)
[2021-02-22] MEDS: BACLOFEN 10 MG TAB PO SCH ×4 (08:33→21:48)
[2021-02-22] MEDS: ACETAMINOPHEN 500 MG TAB PO SCH ×2 (08:33→21:48)
[2021-02-22] MEDS: CARBIDOPA/LEVODOPA 25/100MG TAB PO SCH ×3 (08:33→21:48)
[2021-02-22] MEDS: POTASSIUM CHLORIDE 10 MEQ TABCR PO SCH ×2 (08:35→21:48)
[2021-02-22] MEDS: GABAPENTIN 300 MG CAP PO SCH ×3 (08:36→21:48)
--- NOTE | 2021-02-22 11:07 | Hospitalist Progress Note ---
Date of Service February 22, 2021 Assessment & Plan (1) Left knee pain: (2) Ambulatory dysfunction: (3) Chronic indwelling Romeo catheter: (4) UTI (urinary tract infection): (5) Parkinson disease: (6) CMT (Aknfjrm-Phtep-Puakm disease): (7) Hypertension: (8) CKD (chronic kidney disease), stage III: Plan: Patient is a 76 yr female who has significant past medical history of parkinsonism, Eeaexzb-Odwqo-Mtlfc disease, HTN, HLD, history of TIA, somatic symptom disorder, CKD stage III, chronic indwelling Romeo catheter, history of recurrent UTIs, chronic back pain wheelchair-bound who presents to ED secondary to left knee pain and inability to bend left leg x1 day. 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 Right ankle surgery done in November and left done on 01/[address] Crain of orthopedics [facility] Input and recommendation Nonweightbearing of the left lower extremity Limited weightbearing on the right lower extremity Gentle range of motion of the left knee Discharge planning, case management consulted Pain management consulted - recommends continue regimen of baclofen, gabapentin, oxycodone, prn IV morphine, could consider genicular nerve block/RFA Awaiting placement UTI possibly due to chronic Romeo catheter Chronic indwelling Romeo Replaced Romeo catheter Urine culture 3 types of organisms, skin sadie, no active infection Completed cefepime 3-day course [place] [facility] appointment has a follow-up Parkinson disease continue sinemet, baclofen Pt/OT consulted-we will need to go to rehab HTN Continue amlodipine, Imdur Somatic symptom disorder Continue Lamictal at bedtime CKD II monitor renal function avoid nephrotoxic agents Code Status FULL CODE DVT ppx: SQ Lovenox Disposition awaiting rehab placement FULL CODE Pt was seen and examined in collaboration with Dr. Powers, please see addendum Admission and Anticipated Discharge Date Admission Date: February 15, 2021 Supervising Physician Co-Signing Physician Notes Attending addendum The patient was seen and examined in medical floor. She remains stable and denies any significant symptoms at rest. The progress note done by Esther Cervantes PA-C has been reviewed by me and agree with her assessment and plan as mentioned above. Dr Kavita Powers Subjective Patient was seen and examined in room 377-2. Follow-up L Knee subluxation with hx of TKA status post left knee closed reduction POD #5. Currently complains of pain to ankle and back. Denies f/c/s, chest pain, sob, n/v/d, abdominal pain. Overall decreased appetite but tolerating diet. Is anticipating discharge to SNF. Review of Systems Review of Systems: All systems reviewed and are unremarkable except as noted below Physical Exam Physical Exam: Lying in bed comfortably Constitutional: + ill appearing; no acute distress Eyes: PERRL, conjunctivae normal, anicteric sclerae ENMT: external ear and nose normal, oropharynx normal Neck: trachea midline, no thyromegaly Respiratory: no respiratory distress Auscultation: + diminished lung sounds and + crackles (Minimal crackles at the bases); no wheezes Cardiovascular: Rate/Rhythm: regular rate and regular rhythm; not tachycardic Heart Sounds: normal S1 and normal S2; no murmur Extremities: + edema (Both the legs are in braces) Gastrointestinal (Abdomen): Inspection/Auscultation: normal bowel sounds; abdomen not distended Percussion/Palpation: abdomen soft; abdomen nontender Musculoskeletal: Has osteoarthritic changes involving the joints Neurologic: Alert, awake and oriented. Generally very weak and lethargic Lymphatic: no cervical or axillary lymphadenopathy Results & Data Results & Data ([facility]) Vital Signs (Past 12 Hours) Vital Signs Temp Pulse Resp BP Pulse Ox 02/22/21 07:56 36.4 C L 50 L 16 113/63 95 Medications Administered Current Inpatient Medications Acetaminophen (Acetaminophen 325 Mg Tab) 650 mg PO Q4H PRN PRN Reason: pain/fever Stop: 03/17/21 20:44 Last Admin: 02/22/21 03:30 Dose: 650 mg Documented by: Acetaminophen (Acetaminophen 500 Mg Tab) 500 mg PO BID MARIBELL Stop: 03/17/21 21:29 Last Admin: 02/22/21 08:33 Dose: 500 mg Documented by: Al Hydrox/Mg Hydrox/Simethicone (Aluminum/Magnesium Susp 30 Ml Udc) 30 ml PO Q6H PRN PRN Reason: Dyspepsia Stop: 03/17/21 20:44 Albuterol (Albuterol 0.5% Neb Soln 2.5 Mg/0.5 Ml Vial) 5 mg INH Q4H PRN PRN Reason: Shortness Of Breath Stop: 03/17/21 20:44 Amlodipine Besylate (Amlodipine Besylate 5 Mg Tab) 10 mg PO DAILY MARIBELL Stop: 03/18/21 08:59 Last Admin: 02/22/21 08:29 Dose: 10 mg Documented by: Aspirin (Aspirin 81 Mg Ectab) 81 mg PO DAILY MARIBELL Stop: 03/18/21 08:59 Last Admin: 02/22/21 08:29 Dose: 81 mg Documented by: Baclofen (Baclofen 10 Mg Tab) 10 mg PO QID MARIBELL Stop: 03/17/21 20:59 Last Admin: 02/22/21 12:13 Dose: 10 mg Documented by: Carbidopa/Levodopa (Carbidopa/Levodopa 25/100mg Tab) 1 tab PO TID MARIBELL Stop: 03/17/21 20:59 Last Admin: 02/22/21 13:47 Dose: 1 tab Documented by: Diclofenac Sodium (Diclofenac Sod 1% Gel 100 Gm Tube) 4 gm EXT QID MARIBELL Stop: 03/17/21 20:44 Last Admin: 02/22/21 12:13 Dose: 4 gm Documented by: Ezetimibe (Ezetimibe 10 Mg Tablet) 10 mg PO HS [facility] Stop: 03/17/21 20:59 Last Admin: 02/21/21 20:58 Dose: 10 mg Documented by: Enoxaparin Sodium (Enoxaparin Inj 40 Mg/0.4 Ml Syr) 40 mg SQ Q24H MARIBELL Stop: 03/17/21 21:59 Last Admin: 02/21/21 21:00 Dose: 40 mg Documented by: Ferrous Sulfate (Ferrous Sulfate 325 Mg Tab) 325 mg PO QDL MARIBELL Stop: 03/18/21 11:29 Last Admin: 02/22/21 12:13 Dose: 325 mg Documented by: Gabapentin (Gabapentin 300 Mg Cap) 900 mg PO TID [facility] Stop: 03/17/21 21:59 Last Admin: 02/22/21 13:47 Dose: 900 mg Documented by: Isosorbide Mononitrate (Isosorbide [place] Extended Rel 30 Mg Tabcr) 30 mg PO QAM MARIBELL Stop: 03/18/21 08:59 Last Admin: 02/22/21 08:27 Dose: 30 mg Documented by: Lactase (Lactase 3000 Unit Tab) 3,000 units PO AC MARIBELL Stop: 03/18/21 07:29 Last Admin: 02/22/21 12:12 Dose: 3,000 units Documented by: Lamotrigine (Lamotrigine 25 Mg Tab) 75 mg PO HS MARIBELL Stop: 03/17/21 20:59 Last Admin: 02/21/21 20:56 Dose: 75 mg Documented by: Magnesium Hydroxide (Magnesium Hydroxide Susp 30 Ml Udc) 30 ml PO Q6H PRN PRN Reason: Constipation Stop: 03/17/21 20:44 Melatonin (Melatonin 3 Mg Tab) 4.5 mg PO HS [facility] Stop: 03/17/21 21:59 Last Admin: 02/21/21 20:57 Dose: 4.5 mg Documented by: Morphine Sulfate (Morphine Sulfate 2 Mg/Ml Carp) 2 mg IV Q3H PRN PRN Reason: Pain Stop: 03/01/21 19:42 Last Admin: 02/22/21 08:34 Dose: 2 mg Documented by: Non-Formulary Medication (Lidocaine [Aspercreme (Lidocaine Hcl)]) 1 patch TOP DAILY MARIBELL Stop: 03/18/21 08:59 Last Admin: 02/22/21 08:38 Dose: Not Given Documented by: Ondansetron HCl (Ondansetron Inj 2 Mg/Ml 2 Ml Vial) 4 mg IV Q6H PRN PRN Reason: Nausea Stop: 03/17/21 20:44 Oxycodone HCl (Oxycodone Hcl Ir 5 Mg Tab (Immediate Release)) 5 mg PO Q4H PRN PRN Reason: Pain Stop: 03/04/21 05:32 Last Admin: 02/21/21 09:42 Dose: 5 mg Documented by: Pantoprazole Sodium (Pantoprazole 40 Mg Tab) 40 mg PO DAILY MARIBELL Stop: 03/18/21 08:59 Last Admin: 02/22/21 08:28 Dose: 40 mg Documented by: Polyethylene Glycol (Polyethylene (Miralax) 17 Gm Pack) 17 gm PO DAILY PRN PRN Reason: Constipation Stop: 03/17/21 20:44 Potassium Chloride (Potassium Chloride 10 Meq Tabcr) 10 meq PO BID MARIBELL Stop: 03/17/21 20:59 Last Admin: 02/22/21 08:35 Dose: 10 meq Documented by: Senna/Docusate Sodium (Docusate Sodium/Senna 50/8.6mg Tab) 1 tab PO QAM MARIBELL Stop: 03/18/21 08:59 Last Admin: 02/22/21 08:30 Dose: 1 tab Documented by: Tolterodine Tartrate (Tolterodine Tartrate La 2 Mg Capcr) 2 mg PO DAILY MARIBELL Stop: 03/23/21 08:59 Last Admin: 02/22/21 08:30 Dose: 2 mg Documented by:
[2021-02-22] MEDS: FERROUS SULFATE 325 MG TAB PO SCH (12:13)
[2021-02-22] MEDS: EZETIMIBE 10 MG TABLET PO SCH (21:48)
[2021-02-22] MEDS: ENOXAPARIN INJ 40 MG/0.4 ML SYR SQ SCH (21:49)
[2021-02-22] MEDS: MELATONIN 3 MG TAB PO SCH (21:49)
[2021-02-22] MEDS: lamoTRIgine 25 MG TAB PO SCH (21:49)
[2021-02-23 07:20] VITALS: PULSE 51; TEMP 97.3; O2SAT 93
[2021-02-23] MEDS: ISOSORBIDE MONO EXTENDED REL 30 MG TABCR PO SCH (08:10)
[2021-02-23] MEDS: BACLOFEN 10 MG TAB PO SCH ×2 (08:10→13:18)
[2021-02-23] MEDS: POTASSIUM CHLORIDE 10 MEQ TABCR PO SCH (08:10)
[2021-02-23] MEDS: PANTOprazole 40 MG TAB PO SCH (08:10)
[2021-02-23] MEDS: TOLTERODINE TARTRATE LA 2 MG CAPCR PO SCH (08:10)
[2021-02-23] MEDS: CARBIDOPA/LEVODOPA 25/100MG TAB PO SCH ×2 (08:11→13:18)
[2021-02-23] MEDS: ASPIRIN 81 MG ECTAB PO SCH (08:11)
[2021-02-23] MEDS: amLODIPine BESYLATE 5 MG TAB PO SCH (08:11)
[2021-02-23] MEDS: DICLOFENAC SOD 1% GEL 100 GM TUBE EXT SCH ×2 (08:11→13:55)
[2021-02-23] MEDS: GABAPENTIN 300 MG CAP PO SCH ×2 (08:11→13:18)
[2021-02-23] MEDS: ACETAMINOPHEN 500 MG TAB PO SCH (08:11)
[2021-02-23] MEDS: LACTASE 3000 UNIT TAB PO SCH ×2 (08:11→11:13)
[2021-02-23] MEDS: DOCUSATE SODIUM/SENNA 50/8.6MG TAB PO SCH (08:11)
[2021-02-23 08:15] VITALS: BP 129/79
[2021-02-23] MEDS: FERROUS SULFATE 325 MG TAB PO SCH (11:13)
--- NOTE | 2021-02-23 13:56 | Discharge Summary ---
Date of Service February 23, 2021 Admission HPI Per Admitting Provider This is a 76-year-old female who has significant past medical history of parkinsonism, Ygltuew-Gjddj-Uvswa disease, HTN, HLD, history of TIA, somatic symptom disorder, CKD stage III, chronic indwelling Cheng catheter, history of recurrent UTIs, chronic back pain wheelchair-bound who presents to ED secondary to left knee pain and inability to bend left leg x1 day. Of significance patient has had bilateral total knee replacements. Her left knee was replaced by a physician in [place]. Her right knee was replaced by Dr. Warren. She has also had a history of cervical fusion and lumbar decompressive surger ies. In setting of her Dmzftqr-Fvbch-Novdb disease and Parkinson's disease she has had tendon release surgeries, most specifically on 01/31 at [facility] she underwent percutaneous left Achilles lengthening and percutaneous flexor tendon releases toes 1 through 5. In November she underwent right percutaneous tendon Achilles lengthening and right release of posterior tibial tendon, flexor tenotomies toes 1 through 5. Currently she is mostly wheelchair-bound and does not ambulate. In ED she remained hemodynamically stable. Her CBC and a CMP was generally unremarkable. Her urinalysis was concerning for UTI. Empirically she was started on IV cefepime due to previous cultures. Knee x-ray did reveal left total knee replacement intact but concern for possible subluxation versus positioning. Hip and pelvis x-ray was negative for acute fracture, but did reveal bilateral hip osteoarthritis. Given significant pain, lack of ability, concern for possible UTI and patient unable to care for self she recommended for admission. Admission Exam Per Admitting Provider Constitutional: WD/WN, Obese, F, chronically ill appearing, vitals as above, NAD, sitting up in bed, answers questions appropriately Head: Normocephalic, Atraumatic Eyes: PERRL, conjunctivae normal, anicteric sclerae ENMT: external ear and nose normal, oropharynx normal mucus membranes dry Neck: trachea midline, no thyromegaly normal visual inspection Respiratory: normal respiratory effort, lungs clear to auscultation, no wheeze, rales, rhonchi. Normal insp/exp effort, no accessory muscle use Cardiovascular: RRR, no murmur, obese lower ext Vessels: no JVD or carotid bruit Chest: normal inspection of chest Abdomen: normal bowel sounds, soft, nontender, no hepatosplenomegaly Musculoskeletal: no cyanosis or clubbing, arom to b/l upper ext, RLE with camboot in place, LLE with knee flexed, in pain, incisions to volar aspect of L toes, Achilles healing well, no erythema Skin: no rashes, warm and dry normal turgor Neurologic: PERRL, EOMI, accommodation nl, no face palsy, no dysarthria CN's II-XI intact bilaterally and moves all extremities Psychiatric: A+Ox3, euthymic affect Lymphatic: no cervical or axillary lymphadenopathy : + cheng with yellow urine Principal Diagnosis UTI, knee pain s/p closed reduction total knee arthroplasty subluxation Discharge Exam Gen: WD/WN, NAD, lying in bed, A&Ox3 HEENT: Normocephalic, atraumatic, conjunctivae moist, sclerae anicteric, mucous membranes moist Lung: Clear to Auscultation bilaterally, no wheezes/rales/rhonchi Heart: Regular rate, regular rhythm, no murmurs, rubs, or gallops Abdomen: Soft, NT, ND +BS x 4 Extremities: Legs in braces, no edema Skin: Warm, no rash Constitutional + ill appearing; no acute distress Eyes PERRL, conjunctivae normal, anicteric sclerae ENMT external ear and nose normal, oropharynx normal Neck trachea midline, no thyromegaly Respiratory no respiratory distress Auscultation: + diminished lung sounds and + crackles (Minimal crackles at the bases); no wheezes Cardiovascular Rate/Rhythm: regular rate and regular rhythm; not tachycardic Heart Sounds: normal S1 and normal S2; no murmur Extremities: + edema (Both the legs are in braces) Gastrointestinal (Abdomen) Inspection/Auscultation: normal bowel sounds; abdomen not distended Percussion/Palpation: abdomen soft; abdomen nontender Lymphatic no cervical or axillary lymphadenopathy Discharge Data Allergies Allergy/AdvReac Type Severity Reaction Status Date / Time bee venom protein (honey bee) Allergy Severe ANAPHYLAXIS Verified 02/16/21 13:59 shellfish derived Allergy Severe anaphylaxis Verified 02/16/21 13:59 Sulfa (Sulfonamide Allergy Severe ANAPHYLAXIS Verified 02/16/21 13:59 Antibiotics) Consultations 02/15/21 14:58 ED Decision to Admit Stat 02/15/21 16:11 Consult Orthopedic Surgery Routine 02/20/21 18:22 Consult Pain Management Routine Procedures Performed Operation Date: 02/16/21 11:40 Actual Procedures p Exam under Anesthesia, Closed Reduction of Left Knee(Left) - Austin Layne DO Ordered Studies 02/16/21 [place] knee LT 1 or 2V Routine 02/16/21 09:15 CT knee LT wo con DAILY Hospital Course (1) Left knee pain: (2) Ambulatory dysfunction: (3) Chronic indwelling Cheng catheter: (4) UTI (urinary tract infection): (5) Parkinson disease: (6) CMT (Dviuead-Luhlb-Xpjuj disease): (7) Hypertension: (8) CKD (chronic kidney disease), stage III: Patient is a 76 yr female who has significant past medical history of parkinsonism, Gpvdptq-Tmssd-Gcdnp disease, HTN, HLD, history of TIA, somatic symptom disorder, CKD stage III, chronic indwelling Cheng catheter, history of recurrent UTIs, chronic back pain wheelchair-bound who presents to ED secondary to left knee pain and inability to bend left leg x1 day. Had left closed subluxation total knee arthroplasty s/p left knee closed reduction total knee arthroplasty subluxation Day #6. Per orthopedics, patient is to remain nonweightbearing of the left lower extremity and limited weightbearing on the right lower extremity. Gentle range of motion of the left knee. Pain management consulted - recommends continue regimen of baclofen, gabapentin, oxycodone PRN, could consider genicular nerve block/RFA. Will continue scheduled Tylenol and Voltaren gel as well. Was initially thought to have UTI due to chronic indwelling cheng catheter and cheng catheter was replaced. Urine culture showed 3 types of organisms, skin sadie, no active infection. Completed 3-day course of cefepime. [place] [facility]- has an outpatient follow-up appointment. Patient to be discharged to [facility] today. Hemodynamically stable at time of discharge. Total Time Total Time Spent Total Time Spent (In Minutes): 40 Discharge Plan Discharge Items Patient Disposition: Transfer Alf Fac Reason For Visit: UTI, KNEE PAIN Discharge Diagnosis: UTI, knee pain s/p closed reduction total knee arthroplasty subluxation Activity: As commented below Non-emergency contact: Primary Care Provider Call non-emergency contact if: you have any medication questions, your symptoms worsen and your pain is not controlled Follow-up/Referrals: Soledad Jorge MD [Primary Care Provider] - Diet: Heart Healthy Addtl Attending Provider Instructions: Chen was admitted for left closed subluxation total knee arthroplasty s/p left knee closed reduction total knee arthroplasty subluxation Day #6. Per orthopedics, patient is to remain nonweightbearing of the left lower extremity and limited weightbearing on the right lower extremity. Gentle range of motion of the left knee. Pain management consulted - recommends continue regimen of baclofen, gabapentin, oxycodone, prn IV morphine, could consider genicular nerve block/RFA Was also found to have UTI due to chronic indwelling cheng catheter. Cheng catheter was replaced. Urine culture 3 types of organisms, skin sadie, no active infection. Completed cefepime3-day course [place] [facility] [place]- has an outpatient follow-up appointment Patient to be discharged to [facility] today. Pending Studies at Discharge: No Stand-Alone Forms: [facility] Skilled Items Patient informed of condition?: Yes DNR: No Discharge Level of Care: Skilled Communicable Disease: No Discharge Prognosis: Stable Lines: None Urinary Catheter: Yes Medications and DC Order Prescriptions: New oxycodone 5 mg Tablet 5 mg PO Q4H PRN (Reason: pain) Qty: 14 RF: 0 Continued lidocaine [Aspercreme (lidocaine HCl)] 4 % adhesive patch,medicated 1 patch topical DAILY RF: 0 gabapentin 600 mg Tablet 900 mg PO TID Qty: 135 RF: 0 isosorbide mononitrate 30 mg tablet extended release 24 hr 30 mg PO QAM Qty: 30 RF: 0 potassium chloride 10 mEq tablet extended release 10 meq PO BID Qty: 60 RF: 0 aspirin [Adult Aspirin Regimen] 81 mg tablet,delayed release (DR/EC) 81 mg PO DAILY Qty: 30 RF: 0 acetaminophen [Tylenol Extra Strength] 500 mg tablet 1,000 mg PO BID Qty: 60 RF: 0 lamotrigine [Lamictal] 25 mg tablet 75 mg PO HS Qty: 30 RF: 0 baclofen 10 mg tablet 10 mg PO QID Qty: 120 RF: 0 amlodipine 10 mg tablet 10 mg PO DAILY Qty: 30 RF: 0 ferrous sulfate 325 mg (65 mg iron) Tablet 325 mg PO QDL Qty: 30 RF: 0 lactase 3,000 unit Tablet 3,000 unit PO AC Qty: 90 RF: 0 docusate sodium 100 mg Capsule 100 mg PO DAILY PRN (Reason: Constipation) Qty: 30 RF: 0 omeprazole 20 mg capsule,delayed release(DR/EC) 20 mg PO DAILY Qty: 30 RF: 0 polyethylene glycol 3350 [Miralax] 17 gram/dose powder 17 g PO DAILY PRN (Reason: Constipation) Qty: 119 RF: 0 carbidopa-levodopa 25-100 mg Tablet 1 tab PO TID Qty: 90 RF: 0 ezetimibe 10 mg tablet 10 mg PO HS Qty: 30 RF: 0 albuterol sulfate 2.5 mg/0.5 mL solution for nebulization 5 mg inhalation Q4H PRN (Reason: Shortness Of Breath) Qty: 10 RF: 0 diclofenac sodium 1 % gel 4 g topical QID Qty: 100 RF: 0 Toviaz 4 mg tablet extended release 24 hr 4 mg PO QAM Qty: 30 RF: 0 melatonin 5 mg capsule 5 mg PO HS Qty: 30 RF: 0 Discontinued acetaminophen 325 mg capsule 650 mg PO Q4H MDD 3 GRAMS/24 HOURS. PRN (Reason: Pain (Scale Score 1-3)) RF: 0 tramadol 50 mg tablet 50 mg PO Q4H PRN (Reason: Pain) RF: 0 Discharge Orders: Discharge Order (Routine); Ordered 02/23/21 Ordered By: Esther Rashid/Other Patient Handouts: DVT Post Op Prevention Admission Data Admit Date/Time: 02/15/21 15:41 Attending Provider: Brenna Powers Admit Provider: Earl Dickey Primary Care Provider: Soledad Jorge Other Providers: Joey Pederson [place] ; Earl Dickey ; David Springer Upendra ; Estrella Parson ; [facility] Other Interventions: Discharge Summary Assessment (RN) Last Done: 02/23/21 13:07 Supervising Physician Co-Signing Physician Notes Attending addendum The patient was seen and examined in medical floor. She remains stable and denies any significant symptoms at rest. She remains hemodynamically stable and denies any symptoms during examination Progress note, discharge summary, medications on discharge and instructions were reviewed and reviewed with the plan by CRISTI Black Dr
== END 2021-02-23 14:36 | DRG 560 ==
LOC: ED 11:50 → 3N 15:41 → SUATTDRO 15:41 → 3N 19:47

== ENCOUNTER 2021-03-12 09:58 | Inpatient (IN) ==
[2021-03-12] MEDS ORDERED: LABETALOL HCL IV 5 MG/ML 20ML IV STA (11:09)
--- NOTE | 2021-03-12 11:21 | Emergency Department Note ---
Impression & Plan Aspiration pneumonia, Lactic acidosis, Acute UTI, Hypoxia ED Provider Note Name: DEBBIE BONE Age: 76 Sex: F Arrives Via: Ambulance Informant: Patient, Daughter ED Provider: Roger Chery MD Chief Complaint: Shortness of breath Impression: See Impressions Above Medical Decision Makin yr old female with extensive PMH who arrives with acute worsening respiratory status this morning. Hypoxic on arrival with diffuse crackles though by exam appears more on dry side. She had DuoNeb prior to arrival with improvement per daughter. Urine grossly contaminated with indwelling Cheng. I do not feel this is fluid overload but rather more likely infectious. CXR with new bilateral lower lobe infiltrates and I suspect right middle/lower lobe infiltrate is likely an aspiration given her aspiration history. Given findings cultures and lactate obtained which reveals elevated lactate which is likely infectious related plus some dehydration. She is breathing comfortably on NC O2. She is not hypotensive nor febrile and with Lactate < 4 I do not feel 30ml/kg fluids indicated. Hospitalist consulted for further management given hypoxia and lactic acidosis. After discussion with pharmacist will treat with Unasyn which should cover aspiration and UTI issues. Prior Medical Record and Triage/Nursing Notes reviewed by Me Additional history obtained from chart Differentials:Infection, dehydration, metabolic abnormality, hypo/hyperglycemia, electrolyte disturbance, anemia, hypoxia, cardiac sources, intracerebral event, toxicologic, neurologic, as well as other pathologies. Vital Signs: reviewed and remarkable for hypoxia Interventions: unasyn iv, nss bolus 500mL x 2 Labs:Reviewed and remarkable for elevated lactate Imaging:See Below EKG:Per My Interpretation: Indication Shortness of breath: NSR 96 bpm, qtc 394. PAC noted. No Ischemia. Compared to EKG 10/27/20, no significant changes. Cardiac/Tele Monitoring: Cardiac Monitoring: An Order was placed for continuous cardiac monitoring. The monitor shows a rate of 90 with a normal sinus rhythm. Consults: Cindi hospitalist Plan: Disposition:Hospitalization. Condition: Fair History of Present Illness:76 yr old female arrives for evaluation of shortness of breath. Patient with complex history including multiple leg surgeries for CMT along with asthma, obesity, chronic cheng and recurrent UTIs, amongst multiple other issues. Worsening breathing this morning. Given DuoNeb without much improvement. Notes increased weakness, loss of appetite, and fatigue. Breathing better with NC O2. She has had increased swelling over the last few days. Daughter notes urine is cloudy and history UTI. No fevers, chills, syncope, chest pain, back pain, headache, abdominal pain, nor other symptoms. ROS: See above HPI for pertinent positives & negatives. A total of 10 systems reviewed and were otherwise negative. Past Medical History:See Below Past Surgical History:See Below Family History:See Below Social History:See Below Home Medications:See Below Allergies:See Below Vitals:Blood Pressure: 141/77, Pulse 84, RR 24, T 36.9C, O2 100% on 3 L NC Physical Exam: GENERAL: Patient is Chronically unwell appearing and in mild distress. Dehydrated appearing EYES: No scleral icterus, unremarkable pupils. ENT: Mucous membranes dry, no nasal congestion. NECK: No masses appreciated, nomeningismus, trachea is midline. RESPIRATORY: No dyspnea. Clear to auscultation and equal bilaterally. No wheeze, no rhonchi. CARDIOVASCULAR: Regular rate and rhythm.No murmurs, rubs, gallops appreciated. GASTROINTESTINAL: Abdomen soft, non-tender, no peritonitis.Bowel sounds positive.No masses appreciated. BACK: No midline tenderness, no CVA tenderness EXTREMITIES: Normal motion all extremities, no cyanosis, no edema. NEUROLOGIC: Alert and oriented, no acute motor or sensory deficits, no focal weakness, cranial nerves grossly intact. SKIN: No rash, no jaundice, no diaphoresis. Dry skin with poor skin turgor. 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 GERD (gastroesophageal reflux disease) Hearing loss Hearing loss in left ear Hyperlipidemia Hypertension Hypothyroidism Insomnia Lactose intolerance Migraine Nausea and vomiting after administration of anesthetic agent Obesity Osteoarthritis Parkinson disease Recurrent UTI Renal lesion Repeated falls Spinal stenosis Transient cerebral ischemia Trigeminal neuralgia Unspecified abnormalities of gait and mobility Surgical History History of appendectomy History of bilateral cataract extraction History of bilateral tubal ligation History of bladder surgery botox injections into bladder History of bladder suspension procedure x2 History of brain surgery "microvascular decompression" X2 @ [facility] 2010? History of colonoscopy with polypectomy History of dilatation and curettage History of esophagogastroduodenoscopy (EGD) History of fusion of cervical spine C3-C6; normal ROM History of left breast biopsy x2--benign History of lumbar discectomy L4-L5 History of mandibular surgery x2 2008 after accident--1st time wired shut 2nd sx metal jaw put in---normal ROM History of open reduction and internal fixation (ORIF) procedure right ankle History of partial hysterectomy History of shoulder surgery x4 on left History of surgery brain stimulator removed 1 yr after placed History of surgery on arm right x2 d/t dog bite History of surgery on right wrist fx repair, no hardware History of tooth extraction History of total left knee replacement (TKR) History of total right knee replacement (TKR) History of wisdom tooth extraction Status post correction of deviated nasal septum Status post deep brain stimulator placement 2010 @ [facility] Family History Son Family history of reaction to anesthesia nausea/vomiting Family history of diabetes mellitus Son Family history of reaction to anesthesia nausea/vomiting Son Family history of reaction to anesthesia nausea/vomiting Father Family history of diabetes mellitus Mother Family history of diabetes mellitus Family hx of colon cancer Grandmother (Paternal) Family history of diabetes mellitus Social History Smoking Status: Unknown if ever smoked Second Hand Exposure: No; Hx Alcohol Use: No Hx Substance Use: No Preferred Language: Portuguese Communication Ability: Effective Visual Impairment: No Limitations Hearing Ability: Normal 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: No Beliefs That Will Affect Care: None marital status: Unknown Current Living Situation: Family Current Living Situation Comment: lives with son and DIL current occupational status: retired Feels Safe at Home: Yes Assistive Devices: Brace/Splint/Immobilizer, Glasses and Special Shoe Allergies Allergies Allergy/AdvReac Type Severity Reaction Status Date / Time bee venom protein (honey bee) Allergy Severe ANAPHYLAXIS Verified 03/12/21 11:42 shellfish derived Allergy Severe anaphylaxis Verified 03/12/21 11:42 Sulfa (Sulfonamide Allergy Severe ANAPHYLAXIS Verified 03/12/21 11:42 Antibiotics) Home Meds Home Medications Medication Instructions Recorded Confirmed lidocaine 4 % topical patch 1 patch TOPICAL DAILY 12/20/20 03/12/21 (Aspercreme (lidocaine)) fesoterodine 4 mg tablet,extended 4 mg PO QPM 03/12/21 03/12/21 release 24 hr (Toviaz) meloxicam 7.5 mg tablet 7.5 mg PO DAILY 03/12/21 03/12/21 tramadol 50 mg tablet 50 mg PO BID 03/12/21 03/12/21 Previous Rx's Medication Instructions Recorded acetaminophen 500 mg tablet 1,000 mg PO BID #60 tab 02/23/21 (Tylenol Extra Strength) albuterol sulfate 2.5 mg/0.5 mL 5 mg INHALATION Q4H PRN #10 ea 02/23/21 solution for nebulization amlodipine 10 mg tablet 10 mg PO DAILY #30 tab 02/23/21 aspirin 81 mg tablet,delayed 81 mg PO DAILY #30 tab 02/23/21 release (Adult Aspirin Regimen) baclofen 10 mg tablet 10 mg PO QID #120 tab 02/23/21 carbidopa 25 mg-levodopa 100 mg 1 tab PO TID #90 tab 02/23/21 tablet diclofenac sodium 1 % topical gel 4 g TOPICAL QID #100 g 02/23/21 docusate sodium 100 mg capsule 100 mg PO DAILY PRN #30 cap 02/23/21 ezetimibe 10 mg tablet 10 mg PO HS #30 tab 02/23/21 ferrous sulfate 325 mg (65 mg 325 mg PO QDL #30 tab 02/23/21 iron) tablet gabapentin 600 mg tablet 900 mg PO TID #135 tab 02/23/21 isosorbide mononitrate 30 mg 30 mg PO QAM #30 tab 02/23/21 tablet,extended release 24 hr lactase 3,000 unit tablet 3,000 unit PO AC #90 tab 02/23/21 lamotrigine 25 mg tablet (Lamictal) 75 mg PO HS #30 tab 02/23/21 melatonin 5 mg capsule 5 mg PO HS #30 cap 02/23/21 omeprazole 20 mg capsule,delayed 20 mg PO DAILY #30 cap 02/23/21 release oxycodone 5 mg tablet 5 mg PO Q4H PRN #14 tab 02/23/21 polyethylene glycol 3350 17 17 g PO DAILY PRN #119 g 02/23/21 gram/dose oral powder (Miralax) potassium chloride 10 mEq 10 meq PO BID #60 tab 02/23/21 tablet,extended release Results & Data (ED) Vital Signs Vital Signs - 24 hr 03/12/21 10:22 03/12/21 11:34 03/12/21 12:08 Temperature 36.9 C Temperature Source Axillary Pulse Rate 98 H Pulse Rate [Finger] 94 H 89 Respiratory Rate 28 H 28 H 28 H Respiratory Effort / Characteristics Short of Breath Respiratory Pattern Tachypnea Blood Pressure 207/95 H Blood Pressure [Right Arm] 139/80 141/77 H Blood Pressure Mean 132 Blood Pressure Mean [Right Arm] 99 98 Pulse Oximetry 97 96 100 Oxygen Delivery Method Nasal Cannula Nasal Cannula Nasal Cannula Oxygen Flow Rate 3 3 3 Sepsis Recent Fever Within 48 Hours No Sepsis New/Unexplained Change in Mental Status No Sepsis Action Taken by Nursing No Action Required 03/12/21 14:00 Temperature Temperature Source Pulse Rate Pulse Rate [Finger] 84 Respiratory Rate 24 Respiratory Effort / Characteristics Respiratory Pattern Blood Pressure Blood Pressure [Right Arm] 141/77 H Blood Pressure Mean Blood Pressure Mean [Right Arm] 98 Pulse Oximetry 100 Oxygen Delivery Method Nasal Cannula Oxygen Flow Rate 3 Sepsis Recent Fever Within 48 Hours Sepsis New/Unexplained Change in Mental Status Sepsis Action Taken by Nursing Laboratory Data Result diagrams: 03/12/21 11:20 03/12/21 11:20 Lab Results 03/12/21 03/12/21 03/12/21 Range/Units 11:20 11:20 11:35 WBC 8.48 (4.8-10.8) K/uL RBC 4.87 (4.2-5.4) M/uL Hgb 13.5 (12.0-16.0) g/dL Hct 43.0 (37-47) % MCV 88.3 (80-100) fL MCH 27.7 (25-34) pg MCHC 31.4 L (32-36) g/dL RDW Std Deviation 44.6 (36.4-46.3) fL RDW Coeff of [place] 13.7 (11.5-14.5) % Plt Count 247 (130-400) K/uL MPV 10.1 (7.4-10.4) fL Immature Gran % (Auto) 0.1 % Neut % (Auto) 83.1 % Lymph % (Auto) 9.0 % [place] % (Auto) 6.4 % Eos % (Auto) 1.2 % Baso % (Auto) 0.2 % Neut # (Auto) 7.05 H (1.4-6.5) K/uL Lymph # (Auto) 0.76 L (1.2-3.4) K/uL [place] # (Auto) 0.54 (0.11-0.59) K/uL Eos # (Auto) 0.10 (0-0.5) K/uL Baso # (Auto) 0.02 (0-0.2) K/uL Immature Gran # (Auto) 0.01 (0.00-0.02) K/uL Sodium 142 (136-145) mmol/L Potassium 3.4 L (3.5-5.1) mmol/L Chloride 109 H (98-107) mmol/L Carbon Dioxide 25 (21-32) mmol/L Anion Gap 8.0 (3-11) BUN 15 (7-18) mg/dl Creatinine 0.88 (0.6-1.2) mg/dl Est Cr Clr Drug Dosing 55.8 ml/min Est GFR ( Amer) 74.5 ml/min Est GFR (Non-Af Amer) 64.3 ml/min BUN/Creatinine Ratio 17.5 (10-20) Glucose 134 H (70-99) mg/dl Lactate (0.4-2.0) mmol/L Calcium 9.3 (8.5-10.1) mg/dl Magnesium 1.7 L (1.8-2.4) mg/dl Total Bilirubin 0.7 (0.2-1) mg/dl Direct Bilirubin 0.2 (0-0.2) mg/dl AST 8 L (15-37) U/L ALT 8 L (12-78) U/L Alkaline Phosphatase 107 (45-117) U/L Troponin I < 0.015 (0-0.045) ng/ml NT-Pro-B Natriuret Pep 136 (0-900) pg/ml Total Protein 6.9 (6.4-8.2) gm/dl Albumin 3.2 L (3.4-5.0) gm/dl Urine Color Urine Appearance (Clear) Urine pH (4.5-7.5) Ur Specific [place] (1.000-1.030) Urine Protein (Negative) Urine Glucose (UA) (Negative) Urine Ketones (Negative) Urine Blood (Negative) Urine Nitrite (Negative) Urine Bilirubin (Negative) Urine Urobilinogen (Negative) Ur Leukocyte Esterase (Negative) COVID-19 Eval Order Covid19 at [facility] SARS-CoV-2 (PCR) (Negative) 03/12/21 03/12/21 03/12/21 Range/Units 11:35 12:40 14:00 WBC (4.8-10.8) K/uL RBC (4.2-5.4) M/uL Hgb (12.0-16.0) g/dL Hct (37-47) % MCV (80-100) fL MCH (25-34) pg MCHC (32-36) g/dL RDW Std Deviation (36.4-46.3) fL RDW Coeff of [place]ser[place] (11.5-14.5) % Plt Count (130-400) K/uL MPV (7.4-10.4) fL Immature Gran % (Auto) % Neut % (Auto) % Lymph % (Auto) % [place] % (Auto) % Eos % (Auto) % Baso % (Auto) % Neut # (Auto) (1.4-6.5) K/uL Lymph # (Auto) (1.2-3.4) K/uL [place] # (Auto) (0.11-0.59) K/uL Eos # (Auto) (0-0.5) K/uL Baso # (Auto) (0-0.2) K/uL Immature Gran # (Auto) (0.00-0.02) K/uL Sodium (136-145) mmol/L Potassium (3.5-5.1) mmol/L Chloride (98-107) mmol/L Carbon Dioxide (21-32) mmol/L Anion Gap (3-11) BUN (7-18) mg/dl Creatinine (0.6-1.2) mg/dl Est Cr Clr Drug Dosing ml/min Est GFR ( Amer) ml/min Est GFR (Non-Af Amer) ml/min BUN/Creatinine Ratio (10-20) Glucose (70-99) mg/dl Lactate 3.2 H* (0.4-2.0) mmol/L Calcium (8.5-10.1) mg/dl Magnesium (1.8-2.4) mg/dl Total Bilirubin (0.2-1) mg/dl Direct Bilirubin (0-0.2) mg/dl AST (15-37) U/L ALT (12-78) U/L Alkaline Phosphatase (45-117) U/L Troponin I (0-0.045) ng/ml NT-Pro-B Natriuret Pep (0-900) pg/ml Total Protein (6.4-8.2) gm/dl Albumin (3.4-5.0) gm/dl Urine Color Yellow Urine Appearance Turbid A (Clear) Urine pH 5.0 (4.5-7.5) Ur Specific [place] 1.025 (1.000-1.030) Urine Protein 2+ H (Negative) Urine Glucose (UA) Negative (Negative) Urine Ketones Trace H (Negative) Urine Blood 3+ H (Negative) Urine Nitrite Positive A (Negative) Urine Bilirubin Negative (Negative) Urine Urobilinogen Negative (Negative) Ur Leukocyte Esterase 2+ H (Negative) COVID-19 Eval Order SARS-CoV-2 (PCR) NEGATIVE (Negative) Administered Medications Discontinued Medications Sodium Chloride (Nss 1000ml) 500 mls @ 999 mls/hr IV .Q31M ONE Stop: 03/12/21 12:48 Last Infusion: 03/12/21 13:57 Dose: 0 mls/hr Documented by: [id number] Admin: 03/12/21 13:07 Dose: 999 mls/hr Documented by: [id number] Ampicillin Sodium/Sulbactam Sodium 3,000 mg/ Sodium Chloride 108 mls @ 200 mls/hr IV NOW STA; Protocol Stop: 03/12/21 12:54 Last Infusion: 03/12/21 13:57 Dose: 0 mls/hr Documented by: [id number] Admin: 03/12/21 13:06 Dose: 200 mls/hr Documented by: [id number] Sodium Chloride (Nss 1000ml) 500 mls @ 999 mls/hr IV .Q31M ONE Stop: 03/12/21 13:58 Last Admin: 03/12/21 13:59 Dose: 999 mls/hr Documented by: [id number] Labetalol HCl (Labetalol Hcl Iv 5 Mg/Ml 20ml) 10 mg IV NOW STA Stop: 03/12/21 11:10 Last Admin: 03/12/21 11:35 Dose: Not Given Documented by: [id number] Imaging Data Radiologist's Impression: Chest X-Ray 03/12/21 11:10 XR chest 1V portable CLINICAL HISTORY: shob, fluid retention TECHNIQUE: Single frontal radiograph of the chest was obtained. Comparison: Comparison is made to chest one view 11/16/2020 FINDINGS: Left total shoulder reverse shoulder arthroplasty is seen. Calcified aortic knob is seen. Bilateral lower lung predominant airspace opacities are seen. No e vidence of pleural effusion or pneumothorax. IMPRESSION: Bilateral lower lung predominant airspace opacities which may represent atelectasis, pneumonia, and/or aspiration. ACT 112: Negative or not required by law. Electronically signed by: Shayne Bullock M.D. 03/12/2021 11:53 AM Discharge Plan Visit Data Chief Complaint: Shortness of Breath/Dyspnea ED Provider: Roger Chery Discharge Problem: Aspiration pneumonia, Lactic acidosis, Acute UTI, Hypoxia Forms Stand Alone Forms: [facility] Prescriptions Prescriptions: No Action lidocaine [Aspercreme (lidocaine HCl)] 4 % adhesive patch,medicated 1 patch topical DAILY RF: 0 gabapentin 600 mg Tablet 900 mg PO TID Qty: 135 RF: 0 isosorbide mononitrate 30 mg tablet extended release 24 hr 30 mg PO QAM Qty: 30 RF: 0 potassium chloride 10 mEq tablet extended release 10 meq PO BID Qty: 60 RF: 0 aspirin [Adult Aspirin Regimen] 81 mg tablet,delayed release (DR/EC) 81 mg PO DAILY Qty: 30 RF: 0 acetaminophen [Tylenol Extra Strength] 500 mg tablet 1,000 mg PO BID Qty: 60 RF: 0 lamotrigine [Lamictal] 25 mg tablet 75 mg PO HS Qty: 30 RF: 0 baclofen 10 mg tablet 10 mg PO QID Qty: 120 RF: 0 amlodipine 10 mg tablet 10 mg PO DAILY Qty: 30 RF: 0 ferrous sulfate 325 mg (65 mg iron) Tablet 325 mg PO QDL Qty: 30 RF: 0 lactase 3,000 unit Tablet 3,000 unit PO AC Qty: 90 RF: 0 docusate sodium 100 mg Capsule 100 mg PO DAILY PRN (Reason: Constipation) Qty: 30 RF: 0 omeprazole 20 mg capsule,delayed release(DR/EC) 20 mg PO DAILY Qty: 30 RF: 0 polyethylene glycol 3350 [Miralax] 17 gram/dose powder 17 g PO DAILY PRN (Reason: Constipation) Qty: 119 RF: 0 carbidopa-levodopa 25-100 mg Tablet 1 tab PO TID Qty: 90 RF: 0 ezetimibe 10 mg tablet 10 mg PO HS Qty: 30 RF: 0 albuterol sulfate 2.5 mg/0.5 mL solution for nebulization 5 mg inhalation Q4H PRN (Reason: Shortness Of Breath) Qty: 10 RF: 0 diclofenac sodium 1 % gel 4 g topical QID Qty: 100 RF: 0 melatonin 5 mg capsule 5 mg PO HS Qty: 30 RF: 0 oxycodone 5 mg Tablet 5 mg PO Q4H PRN (Reason: pain) Qty: 14 RF: 0 tramadol 50 mg tablet 50 mg PO BID RF: 0 meloxicam 7.5 mg tablet 7.5 mg PO DAILY RF: 0 Toviaz 4 mg tablet extended release 24 hr 4 mg PO QPM RF: 0 Referrals Referrals: Soledad Jorge MD [Primary Care Provider] - Discharge Problem: Aspiration pneumonia Qualifiers: Aspiration pneumonia type: unspecified Laterality: right Lung location: middle lobe of lung Qualified Code(s): J69.0 - Pneumonitis due to inhalation of food and vomit
--- NOTE | 2021-03-12 11:32 | Communication Note ---
Date of Service: March 12, 2021 I saw this patient and provided care under the supervision of Dr. Chery. Resident Activity Tracking Resident Involvement: Resident Care Provided Care Provided: Adult ED
[2021-03-12 11:40] LABS: Basophils # (auto) 0.02 K/uL (0-0.2); Basophils % (auto) 0.2 %; Eosinophils % (auto) 1.2 %; Hemoglobin 13.5 g/dL (12.0-16.0); Immature Granulocytes # (auto) 0.01 K/uL (0.00-0.02); Immature Granulocytes % (auto) 0.1 %; Lymphocytes # (auto) 0.76 K/uL (1.2-3.4); Mean Corpuscular Hemoglobin 27.7 pg (25-34); Mean Corpuscular Hgb Conc 31.4 g/dL (32-36); Mean Corpuscular Volume 88.3 fL (80-100); Mean Platelet Volume 10.1 fL (7.4-10.4); Monocytes # (auto) 0.54 K/uL (0.11-0.59); Monocytes % (auto) 6.4 %; Neutrophils # (auto) 7.05 K/uL (1.4-6.5); Neutrophils % (auto) 83.1 %; Platelet Count 247 K/uL (130-400); RDW Coefficient of Variation 13.7 % (11.5-14.5); RDW Standard Deviation 44.6 fL (36.4-46.3); Red Blood Count 4.87 M/uL (4.2-5.4); White Blood Count 8.48 K/uL (4.8-10.8)
--- NOTE | 2021-03-12 11:54 | XRay Report ---
XR chest 1V portable CLINICAL HISTORY: shob, fluid retention TECHNIQUE: Single frontal radiograph of the chest was obtained. Comparison: Comparison is made to chest one view 11/16/2020 FINDINGS: Left total shoulder reverse shoulder arthroplasty is seen. Calcified aortic knob is seen. Bilateral l ower lung predominant airspace opacities are seen. No evidence of pleural effusion or pneumothorax. IMPRESSION: Bilateral lower lung predominant airspace opacities which may represent atelectasis, pneumonia, and/o r aspiration. ACT 112: Negative or not required by law. Electronically signed by: Shayne Bullock M.D. 03/12/2021 11:53 AM
[2021-03-12 12:01] LABS: Alanine Aminotransferase 8 U/L (12-78); Albumin Level 3.2 gm/dl (3.4-5.0); Aspartate Aminotransferase 8 U/L (15-37); BUN Creatinine Ratio 17.5 (10-20); Bilirubin Direct 0.2 mg/dl (0-0.2); Blood Urea Nitrogen 15 mg/dl (7-18); Calcium 9.3 mg/dl (8.5-10.1); Carbon Dioxide 25 mmol/L (21-32); Chloride 109 mmol/L (98-107); Creatinine Clr Calc Pharmacy 55.8 ml/min; Est GFR (African American) 74.5 ml/min; Est GFR (Non-African American) 64.3 ml/min; Glucose 134 mg/dl (70-99); Magnesium 1.7 mg/dl (1.8-2.4); Potassium 3.4 mmol/L (3.5-5.1); Sodium 142 mmol/L (136-145)
[2021-03-12 12:08] LABS: Alkaline Phosphatase 107 U/L (45-117); Bilirubin,Total 0.7 mg/dl (0.2-1); NT Pro B Type Natriuretic Pept 136 pg/ml (0-900); Total Protein 6.9 gm/dl (6.4-8.2); Troponin I < 0.015 ng/ml (0-0.045)
[2021-03-12] MEDS ORDERED: SODIUM CHLORIDE 0.9% 1000ML 500 ML IV ONE ×2 (12:18→13:28)
[2021-03-12] MEDS ORDERED: AMPICILLIN/SULBACTAM SOD 3,000 MG in 0.9 % SODIUM CHLORIDE 100 ML IV STA (12:22)
[2021-03-12 14:15] LABS: Appearance Urine Turbid (Clear); Bacteria Urine Automated 4+ (Negative); Bilirubin Urine Negative (Negative); Blood Urine 3+ (Negative); Color Urine Yellow; Epithelial Cell Urine Auto >30 /lpf (0-5); Glucose Urine UA Negative (Negative); Ketones Urine Trace (Negative); Leukocyte Esterase Urine 2+ (Negative); Nitrite Urine Positive (Negative); Protein Urine 2+ (Negative); Specific Gravity Urine 1.025 (1.000-1.030); Urobilinogen Urine Negative (Negative); WBC Urine Automated >30 /hpf (0-5)
[2021-03-12 15:08] LABS: Calcium Oxalate Crystals Urine Present (None Prsent)
--- NOTE | 2021-03-12 16:37 | Electrocardiogram Report ---
Test Reason : Blood Pressure : / mmHG Vent. Rate : 096 BPM Atrial Rate : 094 BPM P-R Int : 000 ms QRS Dur : 086 ms QT Int : 312 ms P-R-T Axes : 000 -22 216 degrees QTc Int : 394 ms Poor data quality, interpretation may be adversely affected Probable Sinus rhythm with occasional Premature ventricular complexes Low voltage QRS Diffuse Minor Nonspecific ST and T wave abnormality Poor R wave progression, consider anterior AR vs. lead placement vs. LVH Abnormal ECG When compared with ECG of 16-NOV-2020 06:02, Premature ventricular complexes now present Otherwise no significant change Confirmed by Dave Lakhani ([id number]) on 03/12/2021 4:37:12 PM Referred By: REFERRED SELF Confirmed By:Dave Lakhani
[2021-03-12] MEDS ORDERED: PIPERACILL/TAZOBAC CONSULT ACTIVE PRN (17:00)
[2021-03-12] MEDS ORDERED: traMADol HCL 50 MG TABLET PO PRN (17:00)
[2021-03-12] MEDS ORDERED: POLYETHYLENE (MIRALAX) 17 GM PACK PO PRN (17:00)
--- NOTE | 2021-03-12 17:27 | Communication Note ---
Date of Service: March 12, 2021 Attending addendum: The patient was seen and examined in medical telemetry unit She has multiple medical comorbid conditions including Wbhhfwk-Znrwk-Moecx disease and is bedbound with a Romeo catheter apparently was admitted with increasing shortness of breath and left leg pain Noted to have possible pneumonia likely aspiration with UTI secondary to chronic Romeo Has been complaining of some shortness of breath and cough and leg pain on the left side mainly On examination Lying in bed without any significant discomfort Hemodynamically stable Chestminimal bibasilar crackles more on the right HeartS1-S2, regular Abdomenbenign, minimal tenderness in the hypogastrium Extremitieshas bilateral leg braces CNsalert and awake. Generally weak lethargic Her admission labs, EKG and imaging studies reviewed Has possible pneumonia likely secondary to aspiration with UTI with multiple other comorbid conditions including chronic indwelling Romeo catheter Has been on intravenous Zosyn Agree with assessment and plan as outlined above by Tracy Powers
[2021-03-12] MEDS: ACETAMINOPHEN 325 MG TAB PO PRN (17:49)
[2021-03-12] MEDS ORDERED: PIPERACILLIN/TAZOBACTAM 3.375 GM in DEXTROSE 5% 100 ML IV ONE (18:00)
[2021-03-12] MEDS: LACTASE 3000 UNIT TAB PO SCH (18:05)
[2021-03-12] MEDS: BACLOFEN 10 MG TAB PO SCH ×2 (18:05→21:34)
--- NOTE | 2021-03-12 19:00 | History & Physical Report ---
Date of Service March 12, 2021 Assessment & Plan (1) Pneumonia: (2) Hypoxia: Plan: -Admit to [facility] telemetry -Patient presenting from home with reports of shortness of breath, cough, wheezing -In the ED, requiring 2 L of oxygen via nasal cannula. CXR showing bibasilar opacities. -Possible aspiration vs. HCAP -S/p Unasyn in the ED, however given concern for possible HCAP and previous urine cultures, will change to IV Zosyn. Check MRSA nasal swab and if positive add Vanco -Initial lactic acid 3.2 -> 1.9, no other signs of sepsis. Hypoxia likely contributing to lactic acidosis -Follow blood culture -Speech consult (3) Acute UTI: (4) Chronic indwelling Romeo catheter: Plan: -History of recurrent UTIs. UA suggestive of UTI. -Receiving IV Zosyn as above -Follow urine culture -Patient is overdue for follow-up with urology -reached out to Alexandrea BETANCOURT who will help arrange for outpatient follow-up (5) CMT (Huwzxfd-Zhtmu-Otnnn disease): Plan: -S/p multiple lower extremity procedures, most recently s/p left knee closed reduction total knee arthroplasty subluxation on 02/16/2021 - patient is to remain nonweightbearing of the left lower extremity and limited weightbearing on the right lower extremity (6) Parkinson disease: Plan: -Continue carbidopa-levodopa (7) Chronic pain: Plan: -Continue home regimen (8) DVT prophylaxis: Plan: -SQ Lovenox Admission and Anticipated Discharge Date Admission Date: March 12, 2021 History of Present Illness Chief Complaint: Shortness of breath, wheezing Primary Care Provider: Soledad Jorge MD 76-year-old female with PMH Parkinson's, Vfpfvao-Htczt-Tldwc disease, HTN, HLD, history of TIA, CKD stage III, chronic Romeo catheter with recurrent UTIs, wheelchair-bound, multiple lower extremity surgeries, who presents to the ED for evaluation of shortness of breath and wheezing. Patient recently admitted to [facility] 02/15 through 02/23 for left knee pain, s/p left closed subluxation total knee arthroplasty. Patient discharged to [facility] and has since returned home. History was obtained from patient's aonuxzpn-wm-zuw who the patient is currently residing. Reports that around midnight, the patient started coughing. Also developed a wheeze that progressively got worse throughout the night. Symptoms not relieved with home nebulizer treatment. Patient was then brought to the ED for further evaluation. Patient is chronically ill however reports that she is currently feeling okay. Patient denies any choking episodes last evening. Denies chest pain. No lightheadedness, dizziness, diaphoresis, syncopal events. Denies abdominal pain, nausea, vomiting, diarrhea. Romeo catheter remains in place. In the ED, patient is requiring 2 L of oxygen via nasal cannula. CXR shows bibasilar opacities. UA is suggestive of UTI. Labs unremarkable. Patient was hypertensive at 207/95 and received 1 dose of labetalol with improvement in blood pressure. Patient was also given IV Unasyn and IVF. Allergies Allergy/AdvReac Type Severity Reaction Status Date / Time bee venom protein (honey bee) Allergy Severe ANAPHYLAXIS Verified 03/12/21 11:42 shellfish derived Allergy Severe anaphylaxis Verified 03/12/21 11:42 Sulfa (Sulfonamide Allergy Severe ANAPHYLAXIS Verified 03/12/21 11:42 Antibiotics) Home Medications Medication Instructions Recorded Confirmed Type lidocaine 4 % topical patch 1 patch TOPICAL DAILY 12/20/20 03/12/21 History (Aspercreme (lidocaine)) acetaminophen 500 mg tablet 1,000 mg PO BID #60 tab 02/23/21 03/12/21 Rx (Tylenol Extra Strength) albuterol sulfate 2.5 mg/0.5 mL 5 mg INHALATION Q4H PRN #10 ea 02/23/21 03/12/21 Rx solution for nebulization amlodipine 10 mg tablet 10 mg PO DAILY #30 tab 02/23/21 03/12/21 Rx aspirin 81 mg tablet,delayed 81 mg PO DAILY #30 tab 02/23/21 03/12/21 Rx release (Adult Aspirin Regimen) baclofen 10 mg tablet 10 mg PO QID #120 tab 02/23/21 03/12/21 Rx carbidopa 25 mg-levodopa 100 mg 1 tab PO TID #90 tab 02/23/21 03/12/21 Rx tablet diclofenac sodium 1 % topical gel 4 g TOPICAL QID #100 g 02/23/21 03/12/21 Rx docusate sodium 100 mg capsule 100 mg PO DAILY PRN #30 cap 02/23/21 03/12/21 Rx ezetimibe 10 mg tablet 10 mg PO HS #30 tab 02/23/21 03/12/21 Rx ferrous sulfate 325 mg (65 mg 325 mg PO QDL #30 tab 02/23/21 03/12/21 Rx iron) tablet gabapentin 600 mg tablet 900 mg PO TID #135 tab 02/23/21 03/12/21 Rx isosorbide mononitrate 30 mg 30 mg PO QAM #30 tab 02/23/21 03/12/21 Rx tablet,extended release 24 hr lactase 3,000 unit tablet 3,000 unit PO AC #90 tab 02/23/21 03/12/21 Rx lamotrigine 25 mg tablet (Lamictal) 75 mg PO HS #30 tab 02/23/21 03/12/21 Rx melatonin 5 mg capsule 5 mg PO HS #30 cap 02/23/21 03/12/21 Rx omeprazole 20 mg capsule,delayed 20 mg PO DAILY #30 cap 02/23/21 03/12/21 Rx release polyethylene glycol 3350 17 17 g PO DAILY PRN #119 g 02/23/21 03/12/21 Rx gram/dose oral powder (Miralax) potassium chloride 10 mEq 10 meq PO BID #60 tab 02/23/21 03/12/21 Rx tablet,extended release fesoterodine 4 mg tablet,extended 4 mg PO QPM 03/12/21 03/12/21 History release 24 hr (Toviaz) meloxicam 7.5 mg tablet 7.5 mg PO DAILY 03/12/21 03/12/21 History tramadol 50 mg tablet 50 mg PO BID PRN 03/12/21 03/12/21 History Past Med/Surg History Medical History (Updated 03/12/21 @ 19:13 by SERAFIN Paz) Anemia Chronic back pain Chronic knee pain after total replacement of left knee joint Chronic left shoulder pain Chronic pain CKD (chronic kidney disease), stage III CMT (Znexpag-Ealmd-Oudbk disease) Degenerative disc disease 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 GERD (gastroesophageal reflux disease) Hearing loss Hearing loss in left ear Hyperlipidemia Hypertension Hypothyroidism Insomnia Lactose intolerance Migraine Nausea and vomiting after administration of anesthetic agent Obesity Osteoarthritis Parkinson disease Renal lesion Repeated falls Spinal stenosis Transient cerebral ischemia Trigeminal neuralgia Unspecified abnormalities of gait and mobility Surgical History (Updated 03/12/21 @ 19:05 by SERAFIN Paz) History of appendectomy History of bilateral cataract extraction History of bilateral tubal ligation History of bladder surgery botox injections into bladder History of bladder suspension procedure x2 History of brain surgery "microvascular decompression" X2 @ [facility] 2010? History of colonoscopy with polypectomy History of dilatation and curettage History of esophagogastroduodenoscopy (EGD) History of fusion of cervical spine C3-C6; normal ROM History of left breast biopsy x2--benign History of lumbar discectomy L4-L5 History of mandibular surgery x2 2008 after accident--1st time wired shut 2nd sx metal jaw put in---normal ROM History of open reduction and internal fixation (ORIF) procedure right ankle History of partial hysterectomy History of shoulder surgery x4 on left History of surgery brain stimulator removed 1 yr after placed History of surgery on arm right x2 d/t dog bite History of surgery on right wrist fx repair, no hardware History of tooth extraction History of total left knee replacement (TKR) History of total right knee replacement (TKR) History of wisdom tooth extraction Status post correction of deviated nasal septum Status post deep brain stimulator placement [address] [facility] Family History Son Family history of reaction to anesthesia nausea/vomiting Family history of diabetes mellitus Son Family history of reaction to anesthesia nausea/vomiting Son Family history of reaction to anesthesia nausea/vomiting Father Family history of diabetes mellitus Mother Family history of diabetes mellitus Family hx of colon cancer Grandmother (Paternal) Family history of diabetes mellitus Social History Smoking Status: Never smoker Second Hand Exposure: No; Do You Dip or Chew Tobacco: No; Hx Alcohol Use: No Hx Substance Use: No Preferred Language: Mohawk Communication Ability: Effective Visual Impairment: No Limitations Hearing Ability: Normal Merchandising Specialist Required: No Beliefs That Will Affect Care: None marital status: Unknown Current Living Situation: Family Current Living Situation Comment: Pt temporarily with Son and [employer]. current occupational status: retired Other Information That Helps Us Care for You: No Feels Safe at Home: Yes Safety Concerns: Feels Safe At This Time Assistive Devices: Glasses and Oxygen - Continuous Assistive Devices Comment: Pt does not use oxygen at baseline. Review of Systems Review of Systems: ROS per HPI, all other systems reviewed and negative Physical Exam Constitutional: WD/WN, vitals as above + ill appearing (Chronically) and + obese; no acute distress Eyes: PERRL, conjunctivae normal, anicteric sclerae ENMT: external ear and nose normal, oropharynx normal Respiratory: normal respiratory effort; no respiratory distress Auscultation: + diminished lung sounds Cardiovascular: Rate/Rhythm: regular rate and regular rhythm Vessels: normal peripheral pulses Extremities: no edema Gastrointestinal (Abdomen): normal bowel sounds, soft, nontender, no hepatosplenomegaly Musculoskeletal: Extremities: no cyanosis and no clubbing Generally weak throughout Skin: no rashes, warm and dry Neurologic: PERRL, EOMI, accommodation nl, no face palsy, no dysarthria Psychiatric: Orientation: alert and oriented x 3 Affect: + flat affect Results & Data Results & Data ([facility]) Vital Signs (Past 12 Hours) Vital Signs Temp Pulse Pulse Resp BP BP Pulse Ox 03/12/21 18:11 36.6 C 84 16 116/73 98 03/12/21 16:00 82 16 129/69 100 03/12/21 14:00 84 24 141/77 H 100 03/12/21 12:08 89 28 H 141/77 H 100 03/12/21 11:34 94 H 28 H 139/80 96 03/12/21 10:22 36.9 C 98 H 28 H 207/95 H 97 Laboratory Results Short CBC 03/12/21 03/12/21 03/12/21 Range/Units 11:20 12:40 14:24 WBC 8.48 (4.8-10.8) K/uL Hgb 13.5 (12.0-16.0) g/dL Hct 43.0 (37-47) % Plt Count 247 (130-400) K/uL Lactate 3.2 H* 1.9 (0.4-2.0) mmol/L BMP 03/12/21 11:20 Sodium 142 Potassium 3.4 L Chloride 109 H Carbon Dioxide 25 BUN 15 Creatinine 0.88 Glucose 134 H Calcium 9.3 Cardiac Enzymes 03/12/21 Range/Units 11:20 Troponin I < 0.015 (0-0.045) ng/ml Liver Function 03/12/21 Range/Units 11:20 Total Bilirubin 0.7 (0.2-1) mg/dl Direct Bilirubin 0.2 (0-0.2) mg/dl AST 8 L (15-37) U/L ALT 8 L (12-78) U/L Alkaline Phosphatase 107 (45-117) U/L Albumin 3.2 L (3.4-5.0) gm/dl Urine 03/12/21 Range/Units 14:00 Urine Color Yellow Urine Appearance Turbid A (Clear) Urine pH 5.0 (4.5-7.5) Ur Specific [place] 1.025 (1.000-1.030) Urine Protein 2+ H (Negative) Urine Glucose (UA) Negative (Negative) Diagnostic Findings Chest X-Ray 03/12/21 11:10 XR chest 1V portable CLINICAL HISTORY: shob, fluid retention TECHNIQUE: Single frontal radiograph of the chest was obtained. Comparison: Comparison is made to chest one view 11/16/2020 FINDINGS: Left total shoulder reverse shoulder arthroplasty is seen. Calcified aortic knob is seen. Bilateral lower lung predominant airspace opacities are seen. No evid ence of pleural effusion or pneumothorax. IMPRESSION: Bilateral lower lung predominant airspace opacities which may represent atelectasis, pneumonia, and/or aspiration. ACT 112: Negative or not required by law. Electronically signed by: Shayne Bullock M.D. 03/12/2021 11:53 AM Code Status & VTE Plan Code Status Patient is a full code as per my discussion with her. VTE Prophylaxis Plan VTE Prophylaxis will be ordered: Yes Supervising Physician Co-Signing Physician Notes Date of Service: March 12, 2021 Attending addendum: The patient was seen and examined in medical telemetry unit She has multiple medical comorbid conditions including Aiiklzc-Ixftn-Ykcxd disease and is bedbound with a Romeo catheter apparently was admitted with increasing shortness of breath and left leg pain Noted to have possible pneumonia likely aspiration with UTI secondary to chronic Romeo Has been complaining of some shortness of breath and cough and leg pain on the left side mainly On examination Lying in bed without any significant discomfort Hemodynamically stable Chestminimal bibasilar crackles more on the right HeartS1-S2, regular Abdomenbenign, minimal tenderness in the hypogastrium Extremitieshas bilateral leg braces CNsalert and awake. Generally weak lethargic Her admission labs, EKG and imaging studies reviewed Has possible pneumonia likely secondary to aspiration with UTI with multiple other comorbid conditions including chronic indwelling Romeo catheter Has been on intravenous Zosyn Agree with assessment and plan as outlined above by Tracy Powers
[2021-03-12] MEDS: ALBUT/IPRATROP 3MG/0.5MG NEB 3 ML VIAL NEB SCH ×2 (19:32→22:10)
[2021-03-12] MEDS ORDERED: POTASSIUM CHLORIDE 20 MEQ/15 ML UDC PO ONE (19:45)
[2021-03-12] MEDS ORDERED: oxyCODONE HCL IR 5 MG TAB (IMMEDIATE RELEASE) PO STA (21:00)
[2021-03-12] MEDS: ZOLPIDEM TARTRATE 5 MG TAB PO PRN (21:33)
[2021-03-12] MEDS: GABAPENTIN 300 MG CAP PO SCH (21:35)
[2021-03-12] MEDS: ENOXAPARIN INJ 40 MG/0.4 ML SYR SQ SCH (21:35)
[2021-03-12] MEDS: lamoTRIgine 25 MG TAB PO SCH (21:36)
[2021-03-12] MEDS: EZETIMIBE 10 MG TABLET PO SCH (21:36)
[2021-03-12] MEDS: CARBIDOPA/LEVODOPA 25/100MG TAB PO SCH (21:36)
[2021-03-12] MEDS: POTASSIUM CHLORIDE 10 MEQ TABCR PO SCH (21:37)
[2021-03-12] MEDS: MAGNESIUM SULFATE / D5W 1 GM/100 ML BAG IV SCH (21:38)
[2021-03-12] MEDS: PIPERACILLIN/TAZOBACTAM 3.375 GM in DEXTROSE 5% 100 ML IV SCH (23:25)
[2021-03-13] MEDS: MAGNESIUM SULFATE / D5W 1 GM/100 ML BAG IV SCH (00:22)
[2021-03-13] MEDS: ALBUT/IPRATROP 3MG/0.5MG NEB 3 ML VIAL NEB SCH ×6 (03:17→22:20)
[2021-03-13] MEDS: traMADol HCL 50 MG TABLET PO PRN ×3 (05:46→23:06)
[2021-03-13] MEDS: PIPERACILLIN/TAZOBACTAM 3.375 GM in DEXTROSE 5% 100 ML IV SCH ×3 (05:46→21:08)
[2021-03-13 06:01] LABS: Hematocrit (blood only) 34.7 % (37-47); Hemoglobin 10.8 g/dL (12.0-16.0); Mean Corpuscular Hemoglobin 27.8 pg (25-34); Mean Corpuscular Hgb Conc 31.1 g/dL (32-36); Mean Corpuscular Volume 89.2 fL (80-100); Platelet Count 216 K/uL (130-400); Red Blood Count 3.89 M/uL (4.2-5.4); White Blood Count 6.83 K/uL (4.8-10.8)
[2021-03-13 06:30] LABS: BUN Creatinine Ratio 18.8 (10-20); Calcium 8.9 mg/dl (8.5-10.1); Est GFR (African American) 86.2 ml/min; Est GFR (Non-African American) 74.4 ml/min; Magnesium 2.3 mg/dl (1.8-2.4); Potassium 3.8 mmol/L (3.5-5.1)
[2021-03-13] MEDS: PANTOprazole 40 MG TAB PO SCH (08:11)
[2021-03-13] MEDS: POTASSIUM CHLORIDE 10 MEQ TABCR PO SCH ×2 (08:11→20:18)
[2021-03-13] MEDS: ISOSORBIDE MONO EXTENDED REL 30 MG TABCR PO SCH (08:11)
[2021-03-13] MEDS: MELOXICAM 7.5 MG TAB PO SCH (08:11)
[2021-03-13] MEDS: GABAPENTIN 300 MG CAP PO SCH ×3 (08:12→20:17)
[2021-03-13] MEDS: ASPIRIN 81 MG ECTAB PO SCH (08:13)
[2021-03-13] MEDS: LACTASE 3000 UNIT TAB PO SCH ×3 (08:13→16:43)
[2021-03-13] MEDS: CARBIDOPA/LEVODOPA 25/100MG TAB PO SCH ×3 (08:13→20:17)
[2021-03-13] MEDS: BACLOFEN 10 MG TAB PO SCH ×4 (08:13→20:17)
[2021-03-13] MEDS: amLODIPine BESYLATE 5 MG TAB PO SCH (08:13)
[2021-03-13] MEDS: LIDOCAINE 5% 1 PATCH TD SCH (08:14)
[2021-03-13] MEDS: FERROUS SULFATE 325 MG TAB PO SCH (11:13)
--- NOTE | 2021-03-13 14:18 | Hospitalist Progress Note ---
Date of Service March 13, 2021 Assessment & Plan (1) Pneumonia: Plan: Has bibasilar infiltration more on the right could be secondary to aspiration Has been getting Unasyn No increasing white count and no fever and no chills Cough and shortness of breath have been improving Palliative care has been consulted for goals of care as per request from the [id number]-[id number] Has had speech evaluation Recommended aspiration precaution during feeding If the condition persist will need to have a former barium swallow down the line (2) Hypoxia: Plan: Secondary to above -Patient presenting from home with reports of shortness of breath, cough, wheezing -In the ED, requiring 2 L of oxygen via nasal cannula. CXR showing bibasilar opacities. -Possible aspiration vs. HCAP -S/p Unasyn in the ED, however given concern for possible HCAP and previous urine cultures, will change to IV Zosyn. Check MRSA nasal swab and if positive add Vanco -Initial lactic acid 3.2 -> 1.9, no other signs of sepsis. Hypoxia likely contributing to lactic acidosis -Follow blood culture-have been negative (3) Acute UTI: Plan: UA was suggestive of infection Preliminary culture report shows that she has gram-negative bacilli Awaiting further identification and sensitivity (4) Chronic indwelling Romeo catheter: Plan: -History of recurrent UTIs. UA suggestive of UTI. -Receiving IV Zosyn as above -Follow urine culture -Patient is overdue for follow-up with urology -reached out to Alexandrea BETANCOURT who will help arrange for outpatient follow-up -Discussed with the urologist and she will have an outpatient appointment for management of her chronic Romeo (5) CMT (Oswuvpp-Liyvm-Betyl disease): Plan: -S/p multiple lower extremity procedures, most recently s/p left knee closed reduction total knee arthroplasty subluxation on 02/16/2021 - patient is to remain nonweightbearing of the left lower extremity and limited weightbearing on the right lower extremity -She has been almost bedbound (6) Parkinson disease: Plan: -Continue carbidopa-levodopa -No acute tremor she is slow in response and activities (7) Chronic pain: Plan: -Continue home regimen -She has had recent dislocation of the left knee which is repositioned during her last hospital stay and she is not having any acute symptoms from that -She was evaluated by pain therapist during her recent admission and no further recommendations were given (8) DVT prophylaxis: Plan: -SQ Lovenox Admission and Anticipated Discharge Date Admission Date: March 12, 2021 Subjective 03/13/2021 The patient was seen and examined in medical telemetry unit She complains to have weakness and tiredness with occasional cough and shortness of breath even at rest Had pain in the left leg remains steady Denies any nausea and/or vomiting Review of Systems Review of Systems: All systems reviewed and are unremarkable except as noted below Respiratory: No noticeable respiratory distress at rest Gastrointestinal: No nausea, vomiting or abdominal distention Physical Exam Physical Exam: Lying in bed comfortably Constitutional: well developed, well nourished, + ill appearing and + obese Eyes: PERRL, conjunctivae normal, anicteric sclerae ENMT: external ear and nose normal, oropharynx normal Neck: trachea midline, no thyromegaly Respiratory: + respiratory distress and + cough (Minimal cough) Auscultation: + diminished lung sounds and + crackles (Occasional crackles at the bases right more than the left); no wheezes Cardiovascular: Rate/Rhythm: regular rate and regular rhythm; not tachycardic Heart Sounds: normal S1 and normal S2; no murmur Extremities: + edema (Trace edema bilaterally) Gastrointestinal (Abdomen): Inspection/Auscultation: normal bowel sounds; abdomen not distended Percussion/Palpation: abdomen soft; abdomen nontender Musculoskeletal: Has bilateral leg breasts Neurologic: Alert, awake and oriented. Generally very weak and lethargic Results & Data Results & Data ([facility]) Vital Signs (Past 12 Hours) Vital Signs Temp Pulse Pulse Resp BP Pulse Ox 03/13/21 12:18 36.9 C 75 20 108/64 96 03/13/21 11:39 78 20 98 03/13/21 08:01 36.3 C L 75 20 128/73 96 03/13/21 07:36 75 18 99 03/13/21 07:30 71 03/13/21 03:17 79 20 95 03/13/21 03:00 37.0 C 71 16 114/71 97 Laboratory Results Short CBC 03/13/21 Range/Units 05:20 WBC 6.83 (4.8-10.8) K/uL Hgb 10.8 L (12.0-16.0) g/dL Hct 34.7 L (37-47) % Plt Count 216 (130-400) K/uL BMP 03/13/21 05:20 Sodium 141 Potassium 3.8 Chloride 110 H Carbon Dioxide 25 BUN 15 Creatinine 0.78 Glucose 88 Calcium 8.9 Urine 03/12/21 Range/Units 14:00 Urine Color Yellow Urine Appearance Turbid A (Clear) Urine pH 5.0 (4.5-7.5) Ur Specific [place] 1.025 (1.000-1.030) Urine Protein 2+ H (Negative) Urine Glucose (UA) Negative (Negative) Medications Administered Current Inpatient Medications Acetaminophen (Acetaminophen 325 Mg Tab) 650 mg PO Q4H PRN PRN Reason: pain/fever Stop: 04/11/21 16:59 Last Admin: 03/12/21 17:49 Dose: 650 mg Documented by: Albuterol (Albut/Ipratrop 3mg/0.5mg Neb 3 Ml Vial) 3 ml NEB Q4R MARIBELL Stop: 04/11/21 18:59 Last Admin: 03/13/21 11:38 Dose: 3 ml Documented by: Amlodipine Besylate (Amlodipine Besylate 5 Mg Tab) 10 mg PO DAILY MARIBELL Stop: 04/12/21 08:59 Last Admin: 03/13/21 08:13 Dose: 10 mg Documented by: Aspirin (Aspirin 81 Mg Ectab) 81 mg PO DAILY MARIBELL Stop: 04/12/21 08:59 Last Admin: 03/13/21 08:13 Dose: 81 mg Documented by: Baclofen (Baclofen 10 Mg Tab) 10 mg PO QID MARIBELL Stop: 04/11/21 16:59 Last Admin: 03/13/21 12:57 Dose: 10 mg Documented by: Carbidopa/Levodopa (Carbidopa/Levodopa 25/100mg Tab) 1 tab PO TID MARIBELL Stop: 04/11/21 20:59 Last Admin: 03/13/21 08:13 Dose: 1 tab Documented by: Docusate Sodium (Docusate Sodium 100 Mg Cap) 100 mg PO DAILY PRN PRN Reason: Constipation Stop: 04/11/21 16:59 Ezetimibe (Ezetimibe 10 Mg Tablet) 10 mg PO HS MARIBELL Stop: 04/11/21 20:59 Last Admin: 03/12/21 21:36 Dose: 10 mg Documented by: Enoxaparin Sodium (Enoxaparin Inj 40 Mg/0.4 Ml Syr) 40 mg SQ Q24H MARIBELL Stop: 04/11/21 16:59 Last Admin: 03/12/21 21:35 Dose: 40 mg Documented by: Ferrous Sulfate (Ferrous Sulfate 325 Mg Tab) 325 mg PO DAILY@1100 MARIBELL Stop: 04/12/21 10:59 Last Admin: 03/13/21 11:13 Dose: 325 mg Documented by: Gabapentin (Gabapentin 300 Mg Cap) 900 mg PO TID MARIBELL Stop: 04/11/21 20:59 Last Admin: 03/13/21 08:12 Dose: 900 mg Documented by: Piperacillin Sod/Tazobactam (Sod 3.375 gm/ Dextrose) 115 mls @ 28.75 mls/hr IV Q8H [facility]; Protocol Stop: 03/19/21 21:59 Last Infusion: 03/13/21 09:50 Dose: Infused Documented by: Isosorbide Mononitrate (Isosorbide Mccormick Extended Rel 30 Mg Tabcr) 30 mg PO QAM MARIBELL Stop: 04/12/21 08:59 Last Admin: 03/13/21 08:11 Dose: 30 mg Documented by: Lactase (Lactase 3000 Unit Tab) 3,000 units PO AC MARIBELL Stop: 04/11/21 16:59 Last Admin: 03/13/21 11:13 Dose: 3,000 units Documented by: Lamotrigine (Lamotrigine 25 Mg Tab) 75 mg PO HS MARIBELL Stop: 04/11/21 20:59 Last Admin: 03/12/21 21:36 Dose: 75 mg Documented by: Lidocaine (Lidocaine 5% 1 Patch) 1 patch TD DAILY MARIBELL Stop: 04/12/21 08:59 Last Admin: 03/13/21 08:14 Dose: 1 patch Documented by: Meloxicam (Meloxicam 7.5 Mg Tab) 7.5 mg PO DAILY MARIBELL Stop: 04/12/21 08:59 Last Admin: 03/13/21 08:11 Dose: 7.5 mg Documented by: Miscellaneous (Toviaz-Order Awaiting Action) 1 ea N/A QS MARIBELL Stop: 04/12/21 00:00 Last Admin: 03/13/21 08:14 Dose: Not Given Documented by: Miscellaneous (Remove Lidoderm Patch) 1 ea N/A HS [facility] Stop: 04/11/21 20:59 Last Admin: 03/12/21 21:37 Dose: 1 ea Documented by: Miscellaneous Information (Piperacill/Tazobac Consult Active) 1 ea N/A UD PRN PRN Reason: Consult Stop: 04/11/21 16:59 Pantoprazole Sodium (Pantoprazole 40 Mg Tab) 40 mg PO DAILY MARIBELL Stop: 04/12/21 08:59 Last Admin: 03/13/21 08:11 Dose: 40 mg Documented by: Polyethylene Glycol (Polyethylene (Miralax) 17 Gm Pack) 17 gm PO DAILY PRN PRN Reason: Constipation Stop: 04/11/21 16:59 Potassium Chloride (Potassium Chloride 10 Meq Tabcr) 10 meq PO BID MARIBELL Stop: 04/11/21 20:59 Last Admin: 03/13/21 08:11 Dose: 10 meq Documented by: Tramadol HCl (Tramadol Hcl 50 Mg Tablet) 50 mg PO BID PRN PRN Reason: Pain Stop: 04/11/21 16:59 Last Admin: 03/13/21 11:18 Dose: 50 mg Documented by: Zolpidem Tartrate (Zolpidem Tartrate 5 Mg Tab) 5 mg PO HS PRN PRN Reason: Sleep Stop: 04/11/21 20:58 Last Admin: 03/12/21 21:33 Dose: 5 mg Documented by:
[2021-03-13] MEDS: EZETIMIBE 10 MG TABLET PO SCH (20:17)
[2021-03-13] MEDS: lamoTRIgine 25 MG TAB PO SCH (20:18)
[2021-03-13] MEDS: ENOXAPARIN INJ 40 MG/0.4 ML SYR SQ SCH (20:18)
[2021-03-13] MEDS: ZOLPIDEM TARTRATE 5 MG TAB PO PRN (21:08)
[2021-03-14] MEDS: ALBUT/IPRATROP 3MG/0.5MG NEB 3 ML VIAL NEB SCH ×7 (03:11→22:23)
[2021-03-14] MEDS: PIPERACILLIN/TAZOBACTAM 3.375 GM in DEXTROSE 5% 100 ML IV SCH ×2 (05:54→13:38)
[2021-03-14] MEDS: BACLOFEN 10 MG TAB PO SCH ×4 (08:17→20:19)
[2021-03-14] MEDS: ISOSORBIDE MONO EXTENDED REL 30 MG TABCR PO SCH (08:17)
[2021-03-14] MEDS: CARBIDOPA/LEVODOPA 25/100MG TAB PO SCH ×3 (08:18→20:19)
[2021-03-14] MEDS: GABAPENTIN 300 MG CAP PO SCH ×3 (08:19→20:19)
[2021-03-14] MEDS: POTASSIUM CHLORIDE 10 MEQ TABCR PO SCH ×2 (08:21→20:20)
[2021-03-14] MEDS: ASPIRIN 81 MG ECTAB PO SCH (08:22)
[2021-03-14] MEDS: PANTOprazole 40 MG TAB PO SCH (08:22)
[2021-03-14] MEDS: LACTASE 3000 UNIT TAB PO SCH ×3 (08:23→16:34)
[2021-03-14] MEDS: amLODIPine BESYLATE 5 MG TAB PO SCH (08:23)
[2021-03-14] MEDS: LIDOCAINE 5% 1 PATCH TD SCH (08:24)
[2021-03-14] MEDS: MELOXICAM 7.5 MG TAB PO SCH (08:33)
[2021-03-14] MEDS: traMADol HCL 50 MG TABLET PO PRN ×2 (08:39→18:31)
[2021-03-14] MEDS: FERROUS SULFATE 325 MG TAB PO SCH (12:08)
[2021-03-14] MEDS ORDERED: oxyCODONE/ACETAMINOPHEN 5mg/325mg TAB PO STA (13:02)
[2021-03-14] MEDS: DICLOFENAC SOD 1% GEL 100 GM TUBE EXT SCH ×2 (16:34→20:18)
[2021-03-14] MEDS ORDERED: METOPROLOL TARTRATE 1 MG/ML VIAL IV ONE (17:28)
--- NOTE | 2021-03-14 17:41 | XRay Report ---
XR chest 1V portable CLINICAL HISTORY: sob TECHNIQUE: Single frontal radiograph of the chest was obtained. Comparison: Comparison is made to chest one view 03/12/2021 FINDINGS: No lines and tubes are seen. Cardiomegaly is noted. Prominence and cephalization of the vasculature i s seen. There is a possible small left pleural effusion. IMPRESSION: Mild pulmonary edema. Possible small left pleural effusion. ACT 112: Negative or not required by law. Electronically signed by: Shayne Bullock M.D. 03/14/2021 5:40 PM
[2021-03-14] MEDS ORDERED: FUROSEMIDE INJ 20 MG/2 ML VIAL IV ONE (18:11)
--- NOTE | 2021-03-14 18:55 | Hospitalist Progress Note ---
Date of Service March 14, 2021 Assessment & Plan (1) Pneumonia: (2) Catheter-associated urinary tract infection: Plan: #. Pneumonia: Has bibasilar infiltration more on the right could be secondary to aspiration versus HCAP Initial lactic acid 3.2---> 1.9, no other signs of sepsis. MRSA screen negative Zosyn 03/12 --> change to Augmentin 03/14 No increasing white count and no fever and no chills Cough and shortness of breath have been improving 03/12 blood cultureno growth so far, follow-up final results. Palliative care has been consulted for goals of care as per request from the [id number] Has had speech evaluation Recommended aspiration precaution during feeding If the condition persist will need to have a formal barium swallow down the line #. Hypoxia #. Pul Edema - mild #. Left Pl Effusion - Small Patient presenting from home with reports of shortness of breath associated with cough and wheezing October 2019 Oliverio was a poor qualitygrossly normal LV function. Patient requiring on 2 L nasal cannula oxygen. Likely secondary to pneumonia and pulmonary edema 03/14 CXR: Mild pulmonary edema. Possible small left pleural effusion. 03/14 IV dose of Lasix, use Lasix as needed, strict I's and O's. Continue to monitor pleural effusion and pulmonary edema. Use supplemental oxygen as needed and nebulization as needed. We will change IV Zosyn to Augmentin for concerns of possible volume overload. #. CAUTI: #. Chronic indwelling Romeo catheter History of recurrent UTIs. Patient overdue for follow-up with urology---> Alexandrea BETANCOURT to arrange for outpatient follow-up for management of her chronic Romeo. UA was suggestive of infection, 03/12 urine culturepansensitive E. coli and GNB, f/u final result. Patient on Augmentin. #. CMT (Xrtlyjk-Ljgla-Jtiai disease): -S/p multiple lower extremity procedures, most recently s/p left knee closed reduction total knee arthroplasty subluxation on 02/16/2021 - patient is to remain nonweightbearing of the left lower extremity and limited weightbearing on the right lower extremity -She has been almost bedbound #. Parkinson disease: -Continue carbidopa-levodopa -No acute tremor she is slow in response and activities #. Chronic pain: -Continue home regimen -She has had recent dislocation of the left knee which is repositioned during her last hospital stay and she is not having any acute symptoms from that -She was evaluated by pain therapist during her recent admission and no further recommendations were given #. DVT prophylaxis: -SQ Lovenox Admission and Anticipated Discharge Date Admission Date: March 12, 2021 Subjective Patient was sitting up in bed, on room air, NAD, no new acute events overnight per RN. Patient reports of bilateral ankle pain all the time, WNL upon examination. She also reports pain in many other joints. Patient is eating and moving bowels okay. Patient is coughingwet nature. Patient denies headache/dizziness/chest pain/palpitation/other review of symptoms. During the day, patient reported shortness of breath and RN heard wheezing, upon examination there were crackles and could not appreciate wheezing. Chest x-ray was ordered and was positive for pulmonary edemamild, will order 1 dose of IV Lasix, will follow. Physical Exam Physical Exam: GENERAL: Alert and oriented x3. NAD, on RA. HEENT: No pallor, no icterus. Pupils equal, round and reactive to light. Oral mucosa moist. NECK: No JVD, no neck masses. HEART: S1 and S2 heard. Regular rate and rhythm. No murmur, no gallop. RESPIRATORY SYSTEM: Normal AP diameter. No accessory muscle use. No wheezing, diffuse and bilateral crackles ABDOMEN: Soft, bowel sounds present, nontender, no distention. CENTRAL NERVOUS SYSTEM: No facial droop. Speech is clear. Obeys simple commands. Moves extremities. EXTREMITIES: No edema, no erythema seen. Surgical scabs under left toes and scab on her right ankle. Results & Data Results & Data ([facility]) Vital Signs (Past 12 Hours) Vital Signs Temp Pulse Resp BP Pulse Ox 03/14/21 17:16 76 16 99 03/14/21 15:10 36.9 C 76 18 119/74 99 03/14/21 15:00 88 18 93 03/14/21 11:49 36.9 C 83 18 110/68 93 03/14/21 11:36 83 16 93 03/14/21 07:42 36.5 C 72 20 128/76 96 03/14/21 07:13 67 18 94
[2021-03-14] MEDS ORDERED: KETOROLAC TROMETHAMINE 15 MG/ML VIAL IV ONE (19:59)
[2021-03-14] MEDS: EZETIMIBE 10 MG TABLET PO SCH (20:19)
[2021-03-14] MEDS: lamoTRIgine 25 MG TAB PO SCH (20:20)
[2021-03-14] MEDS: AMOXICILLIN/CLAVULANATE 875 MG TAB PO SCH (20:25)
[2021-03-14] MEDS: ENOXAPARIN INJ 40 MG/0.4 ML SYR SQ SCH (21:33)
[2021-03-15] MEDS: DICLOFENAC SOD 1% GEL 100 GM TUBE EXT SCH ×4 (00:11→17:07)
[2021-03-15] MEDS: ALBUT/IPRATROP 3MG/0.5MG NEB 3 ML VIAL NEB SCH ×6 (03:20→22:58)
[2021-03-15] MEDS: traMADol HCL 50 MG TABLET PO PRN ×3 (03:42→14:16)
[2021-03-15] MEDS ORDERED: methylPREDNISolone 20 MG in SYRINGE 0 ML IV ONE (04:30)
[2021-03-15] MEDS ORDERED: KETOROLAC TROMETHAMINE 15 MG/ML VIAL IV ONE (05:58)
[2021-03-15 06:02] LABS: Hematocrit (blood only) 33.5 % (37-47); Hemoglobin 10.4 g/dL (12.0-16.0); Mean Corpuscular Hemoglobin 27.7 pg (25-34); Mean Corpuscular Volume 89.3 fL (80-100); Platelet Count 226 K/uL (130-400); RDW Coefficient of Variation 14.1 % (11.5-14.5); RDW Standard Deviation 46.7 fL (36.4-46.3); Red Blood Count 3.75 M/uL (4.2-5.4); White Blood Count 4.95 K/uL (4.8-10.8)
[2021-03-15 06:36] LABS: BUN Creatinine Ratio 13.5 (10-20); Calcium 9.1 mg/dl (8.5-10.1); Creatinine Clr Calc Pharmacy 53.3 ml/min; Est GFR (African American) 71.5 ml/min; Est GFR (Non-African American) 61.7 ml/min; Magnesium 1.9 mg/dl (1.8-2.4); Potassium 3.8 mmol/L (3.5-5.1)
[2021-03-15] MEDS ORDERED: FUROSEMIDE INJ 20 MG/2 ML VIAL IV ONE (07:45)
[2021-03-15] MEDS: CARBIDOPA/LEVODOPA 25/100MG TAB PO SCH ×3 (08:27→20:19)
[2021-03-15] MEDS: AMOXICILLIN/CLAVULANATE 875 MG TAB PO SCH (08:27)
[2021-03-15] MEDS: GABAPENTIN 300 MG CAP PO SCH ×3 (08:27→20:20)
[2021-03-15] MEDS: ASPIRIN 81 MG ECTAB PO SCH (08:27)
[2021-03-15] MEDS: POTASSIUM CHLORIDE 10 MEQ TABCR PO SCH ×2 (08:27→20:20)
[2021-03-15] MEDS: ISOSORBIDE MONO EXTENDED REL 30 MG TABCR PO SCH (08:28)
[2021-03-15] MEDS: amLODIPine BESYLATE 5 MG TAB PO SCH (08:28)
[2021-03-15] MEDS: PANTOprazole 40 MG TAB PO SCH (08:28)
[2021-03-15] MEDS: LACTASE 3000 UNIT TAB PO SCH ×3 (08:28→16:22)
[2021-03-15] MEDS: MELOXICAM 7.5 MG TAB PO SCH (08:28)
[2021-03-15 08:29] LABS: KPC Carbapenemase NOT DETECTED (NotDetected); NDM Carbapenemase NOT DETECTED (NotDetected)
[2021-03-15] MEDS: LIDOCAINE 5% 1 PATCH TD SCH (08:29)
[2021-03-15] MEDS: BACLOFEN 10 MG TAB PO SCH ×4 (08:29→20:19)
--- NOTE | 2021-03-15 08:45 | XRay Report ---
XR chest 1V portable HISTORY: Shortness of breath. COMPARISON: Chest 03/14/2021. FINDINGS: No pneumothorax. No pleural effusions. The heart remains mildly enlarged. There is a left s houlder prosthesis. There is mild central pulmonary vascular congestion without overt edema. This is similar to the prior study. Small patchy left basilar airspace opacity has improved. IMPRESSION: 1. Cardiomegaly with mild congestive change. This is similar to the prior study. 2. Improved aeration within the small left basilar airspace opacity. ACT 112: Negative or not required by law. Electronically signed by: Alfonzo Sparrow M.D. 03/15/2021 8:44 AM
[2021-03-15] MEDS: MAGNESIUM OXIDE 400 MG TAB PO SCH ×2 (09:13→20:20)
[2021-03-15] MEDS: FERROUS SULFATE 325 MG TAB PO SCH (12:15)
[2021-03-15] MEDS: DOCUSATE SODIUM 100 MG CAP PO PRN (14:17)
[2021-03-15] MEDS: ACETAMINOPHEN 325 MG TAB PO PRN (14:17)
--- NOTE | 2021-03-15 14:23 | Hospitalist Progress Note ---
Date of Service March 15, 2021 Assessment & Plan (1) Pneumonia: (2) Catheter-associated urinary tract infection: Plan: #. Pneumonia: Has bibasilar infiltration more on the right could be secondary to aspiration versus HCAP Initial lactic acid 3.2---> 1.9, no other signs of sepsis. MRSA screen negative Zosyn 03/12 --> change to Augmentin 03/14 No increasing white count and no fever and no chills Cough and shortness of breath have been improving, patient on room air 03/12 blood cultureno growth so far, follow-up final results. Palliative care has been consulted for goals of care as per request from the [id number]-[id number]. Has had speech evaluation Recommended aspiration precaution during feeding If the condition persist will need to have a formal barium swallow down the line #. Hypoxia #. Pul Edema - mild #. Left Pl Effusion - Small Patient presenting from home with reports of shortness of breath associated with cough and wheezing October 2019 ECHO was a poor qualitygrossly normal LV function. Patient requiring on 2 L nasal cannula oxygen at presentation and on and off. Likely secondary to pneumonia and pulmonary edema 03/14 CXR: Mild pulmonary edema. Possible small left pleural effusion. 03/14 IV dose of Lasix, use Lasix as needed, strict I's and O's. Continue to monitor pleural effusion and pulmonary edema. Use supplemental oxygen as needed and nebulization as needed. 03/12 Zosyn to Augmentin 03/14 , use ATB for 7 to 10 days. #. CAUTI: #. Chronic indwelling Romeo catheter History of recurrent UTIs. Patient overdue for follow-up with urology---> Alexandrea BETANCOURT to arrange for outpatient follow-up for management of her chronic Romeo. UA was suggestive of infection, 03/12 urine culturepansensitive E. coli and GNB, f/u final result. Patient on Augmentin. #. CMT (Afepzlg-Lhcaw-Lmzwb disease): -S/p multiple lower extremity procedures, most recently s/p left knee closed reduction total knee arthroplasty subluxation on 02/16/2021 - patient is to remain nonweightbearing of the left lower extremity and limited weightbearing on the right lower extremity -She has been almost bedbound #. Parkinson disease: -Continue carbidopa-levodopa -No acute tremor she is slow in response and activities #. Chronic pain: -Continue home regimen -She has had recent dislocation of the left knee which is repositioned during her last hospital stay and she is not having any acute symptoms from that -She was evaluated by pain therapist during her recent admission and no further recommendations were given #. DVT prophylaxis: -SQ Lovenox Disposition: I believe patient will benefit from palliative care consult, will like to see palliative care see her before she goes. Getting medically stable, likely can be DC'd tomorrow unless no new issues arises. Admission and Anticipated Discharge Date Admission Date: March 12, 2021 Subjective Patient was sitting up in bed, on room air, NAD, no new acute events overnight per RN. Patient reports of bilateral ankle pain still despite volteran gel and percocet yesterday, WNL upon examination. She also reports pain in many other joints as usual. Patient is eating and moving bowels okay per RN. Patient denies headache/dizziness/chest pain/palpitation/other review of symptoms. Physical Exam Physical Exam: GENERAL: Alert and oriented x3. NAD, on RA. HEENT: No pallor, no icterus. Pupils equal, round and reactive to light. Oral mucosa moist. NECK: No JVD, no neck masses. HEART: S1 and S2 heard. Regular rate and rhythm. No murmur, no gallop. RESPIRATORY SYSTEM: Normal AP diameter. No accessory muscle use. No wheezing, b/l crackles improving. ABDOMEN: Soft, bowel sounds present, nontender, no distention. CENTRAL NERVOUS SYSTEM: No facial droop. Speech is clear. Obeys simple commands. Moves extremities. EXTREMITIES: No edema, no erythema seen. Surgical scabs under left toes and scab on her right ankle. Results & Data Results & Data ([facility]) Vital Signs (Past 12 Hours) Vital Signs Temp Pulse Pulse Resp BP Pulse Ox 03/15/21 11:00 37.3 C 99 H 19 131/72 92 03/15/21 10:28 75 16 94 03/15/21 08:00 68 03/15/21 07:07 36.7 C 72 20 114/72 95 03/15/21 05:45 71 22 91 03/15/21 04:00 36.5 C 71 20 109/73 92 03/15/21 03:20 69 16 90
[2021-03-15] MEDS: ADVANCED PROBIOTIC 1250 MG CAPSULE PO SCH (16:22)
[2021-03-15] MEDS: levoFLOXacin 750 MG TAB PO SCH (17:07)
--- NOTE | 2021-03-15 17:24 | XRay Report ---
LEFT ANKLE 3 VIEWS CLINICAL HISTORY: Left ankle pain. FINDINGS: 3 views of the left ankle are compared to study dated 08/05/2016. The skeletal structures ar e heterogeneously osteopenic. A 1.8 cm linear ossific density posterior to the talus may represent an avulsion fracture from the dorsal calcaneus. No additional fracture is suggested at the ankle joint. No bony erosion or periostitis is seen. The ankle mortise is intact. No joint effusion is identified . There is a plantar calcaneal enthesophyte. Soft tissue edema is present around the ankle. Atheroscl erotic calcification is noted in the regional arteries. IMPRESSION: 1. A 1.8 cm linear ossific density posterior to the talus may represent an avulsion fracture from the dorsal calcaneus. Clinical correlation will be essential. 2. No additional findings are concerning for acute fracture. 3. Soft tissue swelling. Electronically signed by: Van Henry M.D. 03/15/2021 5:22 PM
[2021-03-15] MEDS: lamoTRIgine 25 MG TAB PO SCH (20:20)
[2021-03-15] MEDS: EZETIMIBE 10 MG TABLET PO SCH (20:20)
[2021-03-15] MEDS: ENOXAPARIN INJ 40 MG/0.4 ML SYR SQ SCH (20:21)
[2021-03-16] MEDS: DICLOFENAC SOD 1% GEL 100 GM TUBE EXT SCH ×5 (00:17→23:20)
[2021-03-16] MEDS: ZOLPIDEM TARTRATE 5 MG TAB PO PRN ×2 (00:46→23:20)
[2021-03-16] MEDS: traMADol HCL 50 MG TABLET PO PRN ×2 (00:46→12:38)
[2021-03-16] MEDS: ALBUT/IPRATROP 3MG/0.5MG NEB 3 ML VIAL NEB SCH ×2 (02:56→07:34)
[2021-03-16] MEDS ORDERED: KETOROLAC TROMETHAMINE 15 MG/ML VIAL IV ONE (05:15)
[2021-03-16 07:18] LABS: BUN Creatinine Ratio 16.2 (10-20); Calcium 9.6 mg/dl (8.5-10.1); Creatinine Clr Calc Pharmacy 50.7 ml/min; Est GFR (African American) 64.6 ml/min; Est GFR (Non-African American) 55.7 ml/min
[2021-03-16 08:34] LABS: Potassium 3.9 mmol/L (3.5-5.1)
[2021-03-16] MEDS: ACETAMINOPHEN 325 MG TAB PO PRN ×2 (08:58→16:31)
[2021-03-16] MEDS: ASPIRIN 81 MG ECTAB PO SCH (08:59)
[2021-03-16] MEDS: BACLOFEN 10 MG TAB PO SCH ×4 (08:59→21:17)
[2021-03-16] MEDS: amLODIPine BESYLATE 5 MG TAB PO SCH (08:59)
[2021-03-16] MEDS: CARBIDOPA/LEVODOPA 25/100MG TAB PO SCH ×3 (09:00→21:17)
[2021-03-16] MEDS: GABAPENTIN 300 MG CAP PO SCH ×3 (09:00→21:17)
[2021-03-16] MEDS: ISOSORBIDE MONO EXTENDED REL 30 MG TABCR PO SCH (09:00)
[2021-03-16] MEDS: POTASSIUM CHLORIDE 10 MEQ TABCR PO SCH ×2 (09:01→21:17)
[2021-03-16] MEDS: ADVANCED PROBIOTIC 1250 MG CAPSULE PO SCH (09:01)
[2021-03-16] MEDS: MELOXICAM 7.5 MG TAB PO SCH (09:01)
[2021-03-16] MEDS: MAGNESIUM OXIDE 400 MG TAB PO SCH ×2 (09:01→21:17)
[2021-03-16] MEDS: PANTOprazole 40 MG TAB PO SCH (09:01)
[2021-03-16] MEDS: LACTASE 3000 UNIT TAB PO SCH ×3 (09:02→16:31)
[2021-03-16] MEDS: LIDOCAINE 5% 1 PATCH TD SCH (09:11)
[2021-03-16] MEDS: FERROUS SULFATE 325 MG TAB PO SCH (12:37)
[2021-03-16] MEDS: levoFLOXacin 750 MG TAB PO SCH (12:37)
--- NOTE | 2021-03-16 13:13 | Palliative Care Consultation ---
Date of Consultation March 16, 2021 Assessment & Plan (1) Palliative care encounter: Ms. Maxwell is a 76 year old female who presented to the [facility] with SOB and wheezing. She had a recent admission in January 2021 for a total knee arthroscopy. Additional PMH includes: Parkinson's, Uqxqcoi-Qqeyr-Lhzuz disease, HTN, HLD, history of TIA, CKD stage III, chronic Romeo catheter with recurrent UTIs. Palliative Medicine was consulted to discuss overall goals of care. I met with Chen at her bedside who was attempting to eat her applesauce. She was quite contracted in her hands. I asked her some simple questions and seemed reliable, but then starting having non-traumatic hallucinations. I was able to talk with Judie, her daughter in law at length, who is an RN. She explained that she has been in and out of a hospital or SNF type setting for the past 5 months. She has applied for a type of community life program 'waiver service' to look for additional caregiver support of 18/11 care (through [facility]). She used to live with Judie and the patients son, but her hallucination needs and agitation has become too stressful for the family. Judie indicated that they have two daughters who has special needs and her being at home with them would not be beneficial. She has Parkinson's disease and aspiration pneumonia that is likely to continue with the nature of her chronic illness. She knows she would not want to be resuscitated nor artificial feeding tubes for life prolonging treatment. Judie has had POA but unfortunately it has been revoked numerous times. She mentioned trying to attempt to have it completed while she was in the hospital. Unfortunately, I am not certain that Chen would have decision making capacity in a meaningful way that I would feel she would be able to understand the complexity of what she was discussing and designating. Next of Kin is the patients Robby. Judie states that the patient would like to pass away at home if possible. She has indicated that she no longer would like home health with PT/OT at home. We discussed home with hospice as she would certainly qualify for at this juncture of her illness. We also discussed home with home health/palliative care and then transition to hospice as another alternative too. She recognizes that it is not in her best interest to continue to return to the hospital and is in support of returning home with [facility] Home Health/Palliative with a transition to hospice.Palliative will follow. (2) Weakness: (3) Obesity: (4) Hypoxia: History of Present Illness Reason for Consultation: goals of care Requesting Physician: Dr. Powers Attending Physician: Johann Reno MD History of Present Illness Ms. Maxwell is a 76 year old female who presented to the [facility] with SOB and wheezing. She had a recent admission in January 2021 for a total knee arthroscopy. Additional PMH includes: Parkinson's, Ullrkqy-Kavuu-Atdzu disease, HTN, HLD, history of TIA, CKD stage III, chronic Romeo catheter with recurrent UTIs. Palliative Medicine was consulted to discuss overall goals of care. Please see A/P for further details. Thanks for involving Palliative Medicine with jeannie patient. Allergies Allergy/AdvReac Type Severity Reaction Status Date / Time bee venom protein (honey bee) Allergy Severe ANAPHYLAXIS Verified 03/12/21 11:42 shellfish derived Allergy Severe anaphylaxis Verified 03/12/21 11:42 Sulfa (Sulfonamide Allergy Severe ANAPHYLAXIS Verified 03/12/21 11:42 Antibiotics) Fish Containing Products Allergy Verified 03/15/21 09:12 fish derived Allergy Verified 03/15/21 09:12 fish oil Allergy Verified 03/15/21 09:12 Home Medications Medication Instructions Recorded Confirmed Type lidocaine 4 % topical patch 1 patch TOPICAL DAILY 12/20/20 03/12/21 History (Aspercreme (lidocaine)) acetaminophen 500 mg tablet 1,000 mg PO BID #60 tab 02/23/21 03/12/21 Rx (Tylenol Extra Strength) albuterol sulfate 2.5 mg/0.5 mL 5 mg INHALATION Q4H PRN #10 ea 02/23/21 03/12/21 Rx solution for nebulization amlodipine 10 mg tablet 10 mg PO DAILY #30 tab 02/23/21 03/12/21 Rx aspirin 81 mg tablet,delayed 81 mg PO DAILY #30 tab 02/23/21 03/12/21 Rx release (Adult Aspirin Regimen) baclofen 10 mg tablet 10 mg PO QID #120 tab 02/23/21 03/12/21 Rx carbidopa 25 mg-levodopa 100 mg 1 tab PO TID #90 tab 02/23/21 03/12/21 Rx tablet diclofenac sodium 1 % topical gel 4 g TOPICAL QID #100 g 10/29/21 11/15/21 Rx docusate sodium 100 mg capsule 100 mg PO DAILY PRN #30 cap 02/23/21 03/12/21 Rx ezetimibe 10 mg tablet 10 mg PO HS #30 tab 02/23/21 03/12/21 Rx ferrous sulfate 325 mg (65 mg 325 mg PO QDL #30 tab 02/23/21 03/12/21 Rx iron) tablet gabapentin 600 mg tablet 900 mg PO TID #135 tab 02/23/21 03/12/21 Rx isosorbide mononitrate 30 mg 30 mg PO QAM #30 tab 02/23/21 03/12/21 Rx tablet,extended release 24 hr lactase 3,000 unit tablet 3,000 unit PO AC #90 tab 02/23/21 03/12/21 Rx lamotrigine 25 mg tablet (Lamictal) 75 mg PO HS #30 tab 02/23/21 03/12/21 Rx melatonin 5 mg capsule 5 mg PO HS #30 cap 02/23/21 03/12/21 Rx omeprazole 20 mg capsule,delayed 20 mg PO DAILY #30 cap 02/23/21 03/12/21 Rx release polyethylene glycol 3350 17 17 g PO DAILY PRN #119 g 02/23/21 03/12/21 Rx gram/dose oral powder (Miralax) potassium chloride 10 mEq 10 meq PO BID #60 tab 02/23/21 03/12/21 Rx tablet,extended release fesoterodine 4 mg tablet,extended 4 mg PO QPM 03/12/21 03/12/21 History release 24 hr (Toviaz) meloxicam 7.5 mg tablet 7.5 mg PO DAILY 03/12/21 03/12/21 History tramadol 50 mg tablet 50 mg PO BID PRN 03/12/21 03/12/21 History Patient History Medical History (Updated 03/16/21 @ 16:55 by Johann Reno MD) Anemia Chronic back pain Chronic knee pain after total replacement of left knee joint Chronic left shoulder pain Chronic pain CKD (chronic kidney disease), stage III CMT (Uifnpmg-Wsusz-Pnbld disease) Degenerative disc disease 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 GERD (gastroesophageal reflux disease) Hearing loss Hearing loss in left ear Hyperlipidemia Hypertension Hypothyroidism Insomnia Lactose intolerance Migraine Nausea and vomiting after administration of anesthetic agent Obesity Osteoarthritis Palliative care encounter Parkinson disease Renal lesion Repeated falls Spinal stenosis Transient cerebral ischemia Trigeminal neuralgia Unspecified abnormalities of gait and mobility Weakness Surgical History History of appendectomy History of bilateral cataract extraction History of bilateral tubal ligation History of bladder surgery botox injections into bladder History of bladder suspension procedure x2 History of brain surgery "microvascular decompression" X2 @ [facility] 2010? History of colonoscopy with polypectomy History of dilatation and curettage History of esophagogastroduodenoscopy (EGD) History of fusion of cervical spine C3-C6; normal ROM History of left breast biopsy x2--benign History of lumbar discectomy L4-L5 History of mandibular surgery x2 2007 after accident--1st time wired shut 2nd sx metal jaw put in---normal ROM History of open reduction and internal fixation (ORIF) procedure right ankle History of partial hysterectomy History of shoulder surgery x4 on left History of surgery brain stimulator removed 1 yr after placed History of surgery on arm right x2 d/t dog bite History of surgery on right wrist fx repair, no hardware History of tooth extraction History of total left knee replacement (TKR) History of total right knee replacement (TKR) History of wisdom tooth extraction Status post correction of deviated nasal septum Status post deep brain stimulator placement 2010 @ [facility] Family History Son Family history of reaction to anesthesia nausea/vomiting Family history of diabetes mellitus Son Family history of reaction to anesthesia nausea/vomiting Son Family history of reaction to anesthesia nausea/vomiting Father Family history of diabetes mellitus Mother Family history of diabetes mellitus Family hx of colon cancer Grandmother (Paternal) Family history of diabetes mellitus Social History Smoking Status: Never smoker Second Hand Exposure: No; Do You Dip or Chew Tobacco: No; Hx Alcohol Use: No Hx Substance Use: No Preferred Language: Khmer Communication Ability: Effective Visual Impairment: No Limitations Hearing Ability: Normal Formulation Scientist Required: No Beliefs That Will Affect Care: None marital status: Current Living Situation: Family Current Living Situation Comment: Pt temporarily with Son and Lmvvjjlm-Nf-Dob. current occupational status: retired Other Information That Helps Us Care for You: No Feels Safe at Home: Yes Safety Concerns: Feels Safe At This Time Assistive Devices: None Assistive Devices Comment: Pt does not use oxygen at baseline. Review of Systems Review of Systems: [place] System Assessment Scale: Pain: 2/3 Nausea: 0/3 Tiredness: 1/3 Lack of Appetite: 1/3 SOB: 0/3 Palliative Performance Scale: 30% Physical Exam Constitutional: comfortable ENMT: Mouth: + dry oral mucous membranes Respiratory: normal respiratory effort Auscultation: + diminished lung sounds Cardiovascular: Rate/Rhythm: regular rate and regular rhythm Heart Sounds: normal S1 and normal S2 Extremities: normal capillary refill Gastrointestinal (Abdomen): Inspection/Auscultation: abdomen normal to inspection Skin: + pallor Psychiatric: Orientation: alert, oriented x 3 and cooperative Insight: + limited insight Judgement: + limited judgement Results & Data ([facility]) Vital Signs (Past 12 Hours) Vital Signs Temp Pulse Pulse Resp BP Pulse Ox 03/16/21 11:12 81 149/81 H 03/16/21 11:04 36.7 C 81 18 135/75 93 03/16/21 08:18 36.5 C 82 19 133/82 93 03/16/21 07:35 79 18 92 03/16/21 06:38 79 03/16/21 04:00 85 03/16/21 03:26 37.0 C 89 18 119/76 94 03/16/21 02:55 86 16 92 PG Care Time/CCT Total # of Minutes Spent Total Time Spent with Patient: Total time spent is greater than 50% in coordination of care (as documented) at patient's floor/unit and/or counseling patient: 100 minutes with > 50% of that time spent assessing the patient, discussing goals of care with the patient and family, and collaborating with IDT Coding Level of Care Code 28791 Initial Inpt Care Lvl 3 Diagnoses Palliative care encounter Z51.5 Weakness R53.1 Obesity E66.9 Hypoxia R09.02 Time Spent (min) 100
--- NOTE | 2021-03-16 15:47 | Hospitalist Progress Note ---
Date of Service March 16, 2021 Assessment & Plan (1) Pneumonia: (2) Catheter-associated urinary tract infection: Plan: #. Pneumonia: Has bibasilar infiltration more on the right could be secondary to aspiration versus HCAP Initial lactic acid 3.2---> 1.9, no other signs of sepsis. MRSA screen negative Zosyn 03/12 --> change to Augmentin 03/14 -->levaquin 03/15 d/t E.cloacae in UCx -->stop date 03/19 No increasing white count and no fever and no chills Cough and shortness of breath have been improving, patient on room air 03/12 blood cultureno growth so far, follow-up final results. Palliative care has been consulted for goals of care as per request from the [id number]. Has had speech evaluation Recommended aspiration precaution during feeding If the condition persist will need to have a formal barium swallow down the line #. Hypoxia #. Pul Edema - mild #. Left Pl Effusion - Small Patient presenting from home with reports of shortness of breath associated with cough and wheezing October 2019 ECHO was a poor qualitygrossly normal LV function. Patient requiring on 2 L nasal cannula oxygen at presentation and on and off. Likely secondary to pneumonia and pulmonary edema 03/14 CXR: Mild pulmonary edema. Possible small left pleural effusion. 03/14 IV dose of Lasix, use Lasix as needed, strict I's and O's. Continue to monitor pleural effusion and pulmonary edema. Use supplemental oxygen as needed and nebulization as needed. 03/12 Zosyn to Augmentin 03/14 --->levaquin 03/15, stop date 03/19 #. Abnormal Left ankle XR Patient complaining of multiple joint pain, more on the left leg 03/15 x-ray left ankle: A 1.8 cm linear ossific density posterior to the talus may represent an avulsion fracture from the dorsal calcaneus. Clinical correlation will be essential. Orthopedic consulted, awaiting input. #. CAUTI: #. Chronic indwelling Romeo catheter History of recurrent UTIs. Patient overdue for follow-up with urology---> Alexandrea BETANCOURT to arrange for outpatient follow-up for management of her chronic Romeo. UA was suggestive of infection, 03/12 urine culturepansensitive E. coli and GNB, f/u final result. Patient on levaquin #. CMT (Dcwibgv-Sgnay-Hwigb disease): -S/p multiple lower extremity procedures, most recently s/p left knee closed reduction total knee arthroplasty subluxation on 02/16/2021 - patient is to remain nonweightbearing of the left lower extremity and limited weightbearing on the right lower extremity -She has been almost bedbound #. Parkinson disease: -Continue carbidopa-levodopa -No acute tremor she is slow in response and activities #. Chronic pain: -Continue home regimen -She has had recent dislocation of the left knee which is repositioned during her last hospital stay and she is not having any acute symptoms from that -She was evaluated by pain therapist during her recent admission and no further recommendations were given #. DVT prophylaxis: -SQ Lovenox Disposition: I believe patient will benefit from palliative care consult, will like to see palliative care see her before she goes. Medically stable, can be DC'd as soon as ortho clears the patient. reached out to ortho for abnormal left left XRay, awaiting their input. Pt to go home per note. Admission and Anticipated Discharge Date Admission Date: March 12, 2021 Subjective Patient was sitting up in bed, on room air, NAD, no new acute events overnight per RN. Patient reports b/l leg pain , more so on left. She also reports pain in many other joints as usual. Patient is eating and moving bowels okay. Patient denies headache/dizziness/chest pain/palpitation/other review of symptoms. Physical Exam Physical Exam: GENERAL: Alert and oriented x3. NAD, on RA. HEENT: No pallor, no icterus. Pupils equal, round and reactive to light. Oral mucosa moist. NECK: No JVD, no neck masses. HEART: S1 and S2 heard. Regular rate and rhythm. No murmur, no gallop. RESPIRATORY SYSTEM: Normal AP diameter. No accessory muscle use. No wheezing, b/l crackles improving. ABDOMEN: Soft, bowel sounds present, nontender, no distention. CENTRAL NERVOUS SYSTEM: No facial droop. Speech is clear. Obeys simple commands. Moves extremities. EXTREMITIES: 2+ pedal edema, no erythema seen. Surgical scabs under left toes and scab on her right ankle. Results & Data Results & Data ([facility]) Vital Signs (Past 12 Hours) Vital Signs Temp Pulse Pulse Resp BP Pulse Ox 03/16/21 15:29 37.1 C 86 20 159/84 H 94 03/16/21 15:25 83 03/16/21 11:12 81 149/81 H 03/16/21 11:04 36.7 C 81 18 135/75 93 03/16/21 08:18 36.5 C 82 19 133/82 93 03/16/21 07:35 79 18 92 03/16/21 06:38 79 03/16/21 04:00 85
--- NOTE | 2021-03-16 19:28 | Consultation Report ---
DATE OF CONSULTATION: 03/16/2021. HISTORY OF PRESENT ILLNESS: This is a 76-year-old female seen at request of Dr. Powers regarding left heel pain. The patient's complex medical history, well known to the Orthopedic service, who present s with a left heel pain, amongst other concerns. She had a recent procedure by Dr. Crain at [facility] where she had bilateral Achilles tendon lengthenings as well as multiple percutaneou s flexor tenotomies of her toes. She typically has a boot braces on. However, when she was at home during a transfer, apparently, she fell, twisting her knee and also striking her left heel. She had radiographs subsequently which demonstrate an avulsion fracture from the superior posterior aspect of the calcaneus. She has been in a boot braces as directed; however, has complaints of pain in the le ft ankle. Orthopedics was consulted. 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 PAST SURGICAL HISTORY: Appendectomy, bilateral cataract extraction, bilateral tubal ligation, histor y of bladder surgery, Botox injections in the bladder, history of bladder suspension procedure x2, br ain surgeries with microvascular decompression x2, colonoscopy with polypectomy, dilatation and curet tage, esophagogastroduodenoscopy, fusion of cervical spine C3-C6, left breast biopsy, lumbar diskecto my L4-L5, mandibular surgery x2 after accident, ORIF of right ankle, partial hysterectomy, shoulder s urgery x4 on the left, brain stimulator removal after one year, history of surgery on her right long- arm x2 due to dog bite, history of fracture repair on the right wrist, tooth extraction, left total k nee replacement, right total knee replacement, wisdom tooth extraction status post correction, deviat ed nasal septum and then initial deep brain stimulator placed in 2009 at [facility]. ALLERGIES: BEE VENOM PROTEIN, SHELLFISH AND SULFA ANTIBIOTICS, ALL WITH ANAPHYLAXIS. MEDICATIONS: Please note the extensive list noted in the medical record. SOCIAL HISTORY: Denies tobacco, alcohol or drug use. She is retired. She lives with her family. PHYSICAL EXAMINATION: This is a 76-year-old female, lying supine in hospital room bed. She has bila teral boot braces on. Focused examination of the left lower extremity after removal of the boot brac e demonstrates the skin with healed incisions of the flexor surfaces of the toes as well as the poste rior aspect of the Achilles. Neutral position, she has tenderness to palpation of the posterior heel at the site of the calcaneal avulsion fracture. Skin is intact, warm, and dry. Dorsalis pedis and posterior pulses are 2/4 bilateral symmetric. Radiographs reviewed demonstrating avulsion fracture i n superior posterior aspect of the left calcaneus. Osteopenia is evident. No other obvious fracture s noted. IMPRESSION: Left calcaneal superior posterior avulsion fracture, status post fall, left heel pain. RECOMMENDATION: We will remove her high tide walking boot and replace with a dorsiflexion splint wit h a negative relief under the left heel and modi's wool padding to provide an essentially no-touch hensley pport for neutral dorsiflexion of the left ankle and heel and foot. May use the walking boots for [facility] for ambulation and wheelchair as necessary. Ice to the left heel p.r.n. Follow up with Dr. Crain as he is her primary orthopedic surgeon in her care. Thank you for the opportunity to consult in care of this patient. Job ID: [id number]
[2021-03-16] MEDS: lamoTRIgine 25 MG TAB PO SCH (21:17)
[2021-03-16] MEDS: EZETIMIBE 10 MG TABLET PO SCH (21:17)
[2021-03-16] MEDS: ENOXAPARIN INJ 40 MG/0.4 ML SYR SQ SCH (21:17)
[2021-03-16] MEDS: ALBUT/IPRATROP 3MG/0.5MG NEB 3 ML VIAL NEB PRN (21:43)
[2021-03-17] MEDS: DICLOFENAC SOD 1% GEL 100 GM TUBE EXT SCH ×3 (05:26→17:48)
[2021-03-17 06:36] LABS: Creatinine Clr Calc Pharmacy 56.6 ml/min; Est GFR (African American) 73.5 ml/min; Est GFR (Non-African American) 63.4 ml/min
[2021-03-17] MEDS: CARBIDOPA/LEVODOPA 25/100MG TAB PO SCH ×3 (08:50→20:42)
[2021-03-17] MEDS: GABAPENTIN 300 MG CAP PO SCH ×3 (08:50→20:43)
[2021-03-17] MEDS: MELOXICAM 7.5 MG TAB PO SCH (08:51)
[2021-03-17] MEDS: POTASSIUM CHLORIDE 10 MEQ TABCR PO SCH ×2 (08:51→20:42)
[2021-03-17] MEDS: BACLOFEN 10 MG TAB PO SCH ×4 (08:51→20:42)
[2021-03-17] MEDS: ADVANCED PROBIOTIC 1250 MG CAPSULE PO SCH (08:52)
[2021-03-17] MEDS: ASPIRIN 81 MG ECTAB PO SCH (08:52)
[2021-03-17] MEDS: PANTOprazole 40 MG TAB PO SCH (08:53)
[2021-03-17] MEDS: LACTASE 3000 UNIT TAB PO SCH ×3 (08:53→17:55)
[2021-03-17] MEDS: ISOSORBIDE MONO EXTENDED REL 30 MG TABCR PO SCH (08:53)
[2021-03-17] MEDS: amLODIPine BESYLATE 5 MG TAB PO SCH (08:54)
[2021-03-17] MEDS: LIDOCAINE 5% 1 PATCH TD SCH (08:55)
[2021-03-17] MEDS: FERROUS SULFATE 325 MG TAB PO SCH (12:52)
[2021-03-17] MEDS: levoFLOXacin 750 MG TAB PO SCH (12:52)
--- NOTE | 2021-03-17 20:09 | Hospitalist Progress Note ---
Date of Service March 17, 2021 Assessment & Plan (1) Pneumonia: (2) Catheter-associated urinary tract infection: Plan: #. Pneumonia: Has bibasilar infiltration more on the right could be secondary to aspiration versus HCAP Initial lactic acid 3.2---> 1.9, no other signs of sepsis. MRSA screen negative Zosyn 03/12 --> change to Augmentin 03/14 -->levaquin 03/15 d/t E.cloacae in UCx -->stop date 03/19 No increasing white count and no fever and no chills Cough and shortness of breath have been improving, patient on room air 03/12 blood cultureno growth so far, follow-up final results. Palliative care on board for goals of care as per request from the [id number]. Has had speech evaluation Recommended aspiration precaution during feeding If the condition persist will need to have a formal barium swallow down the line #. Hypoxia #. Pul Edema - mild #. Left Pl Effusion - Small Patient presenting from home with reports of shortness of breath associated with cough and wheezing October 2019 ECHO was a poor qualitygrossly normal LV function. Patient requiring on 2 L nasal cannula oxygen at presentation and on and off. Likely secondary to pneumonia and pulmonary edema 03/14 CXR: Mild pulmonary edema. Possible small left pleural effusion. 03/14 IV dose of Lasix, use Lasix as needed, strict I's and O's. Continue to monitor pleural effusion and pulmonary edema. Use supplemental oxygen as needed and nebulization as needed. 03/12 Zosyn to Augmentin 03/14 --->levaquin 03/15, stop date 03/19 #. Abnormal Left ankle XR Patient complaining of multiple joint pain, more on the left leg 03/15 x-ray left ankle: A 1.8 cm linear ossific density posterior to the talus may represent an avulsion fracture from the dorsal calcaneus. Clinical correlation will be essential. Orthopedic consulted for left calcaneal superior posterior avulsion fracture status post fall: High tide walking boot removed, replaced with a dorsiflexion splint with a negative relief under the left heel and lambs wool padding to provide essentially neutral support for neutral dorsiflexion of the left ankle and heel and foot. Orthopedic recommending may use the walking boot for transfers or ambulating and wheelchair as necessary. Follow-up with outpatient orthopedics. #. CAUTI: #. Chronic indwelling Romeo catheter History of recurrent UTIs. Patient overdue for follow-up with urology---> Alexandrea BETANCOURT to arrange for outpatient follow-up for management of her chronic Romeo. UA was suggestive of infection, 03/12 urine culturepansensitive E. coli and GNB, f/u final result. Patient on levaquin #. CMT (Tprwgjh-Dprtf-Lfltd disease): -S/p multiple lower extremity procedures, most recently s/p left knee closed reduction total knee arthroplasty subluxation on 02/16/2021 - patient is to remain nonweightbearing of the left lower extremity and limited weightbearing on the right lower extremity -She has been almost bedbound #. Parkinson disease: -Continue carbidopa-levodopa -No acute tremor she is slow in response and activities #. Chronic pain: -Continue home regimen -She has had recent dislocation of the left knee which is repositioned during her last hospital stay and she is not having any acute symptoms from that -She was evaluated by pain therapist during her recent admission and no further recommendations were given #. DVT prophylaxis: -SQ Lovenox Disposition: I believe patient will benefit from palliative care. Medically stable, can be DC'd as soon as we find placement. 03/17: [id number] called over the phone and updated about her status and answered all the questions. There are some social issues surrounding her care upon discharge, updated casey saw operator afterwards. Admission and Anticipated Discharge Date Admission Date: March 12, 2021 Subjective Patient was sitting up in bed, on room air, NAD, no new acute events overnight per RN. Patient reports b/l leg pain , more so on left. She also reports pain in many other joints as usual. Patient is eating and moving bowels okay. Patient denies headache/dizziness/chest pain/palpitation/other review of symptoms. Physical Exam Physical Exam: GENERAL: Alert and oriented x3. NAD, on RA. HEENT: No pallor, no icterus. Pupils equal, round and reactive to light. Oral mucosa moist. NECK: No JVD, no neck masses. HEART: S1 and S2 heard. Regular rate and rhythm. No murmur, no gallop. RESPIRATORY SYSTEM: Normal AP diameter. No accessory muscle use. No wheezing, b/l crackles improving. ABDOMEN: Soft, bowel sounds present, nontender, no distention. CENTRAL NERVOUS SYSTEM: No facial droop. Speech is clear. Obeys simple commands. Moves extremities. EXTREMITIES: 2+ pedal edema, no erythema seen. Surgical scabs under left toes and scab on her right ankle. Results & Data Results & Data ([facility]) Vital Signs (Past 12 Hours) Vital Signs Temp Pulse Pulse Resp BP Pulse Ox 03/17/21 19:14 37.0 C 86 18 147/76 H 95 03/17/21 15:47 37.3 C 86 18 138/78 93 03/17/21 14:20 84 03/17/21 11: 37.1 C 82 18 133/71 95
[2021-03-17] MEDS: traMADol HCL 50 MG TABLET PO PRN (20:41)
[2021-03-17] MEDS: ENOXAPARIN INJ 40 MG/0.4 ML SYR SQ SCH (20:42)
[2021-03-17] MEDS: EZETIMIBE 10 MG TABLET PO SCH (20:42)
[2021-03-17] MEDS: lamoTRIgine 25 MG TAB PO SCH (20:42)
[2021-03-17] MEDS: ZOLPIDEM TARTRATE 5 MG TAB PO PRN (20:51)
[2021-03-18] MEDS: DICLOFENAC SOD 1% GEL 100 GM TUBE EXT SCH ×5 (00:25→23:11)
[2021-03-18 06:35] LABS: Creatinine Clr Calc Pharmacy 65.3 ml/min; Est GFR (African American) 87.5 ml/min; Est GFR (Non-African American) 75.5 ml/min
[2021-03-18] MEDS: DOCUSATE SODIUM 100 MG CAP PO PRN (08:07)
[2021-03-18] MEDS: ASPIRIN 81 MG ECTAB PO SCH (08:07)
[2021-03-18] MEDS: CARBIDOPA/LEVODOPA 25/100MG TAB PO SCH ×3 (08:08→21:10)
[2021-03-18] MEDS: amLODIPine BESYLATE 5 MG TAB PO SCH (08:08)
[2021-03-18] MEDS: PANTOprazole 40 MG TAB PO SCH (08:08)
[2021-03-18] MEDS: ISOSORBIDE MONO EXTENDED REL 30 MG TABCR PO SCH (08:09)
[2021-03-18] MEDS: ADVANCED PROBIOTIC 1250 MG CAPSULE PO SCH (08:10)
[2021-03-18] MEDS: GABAPENTIN 300 MG CAP PO SCH ×3 (08:10→21:11)
[2021-03-18] MEDS: MELOXICAM 7.5 MG TAB PO SCH (08:11)
[2021-03-18] MEDS: LIDOCAINE 5% 1 PATCH TD SCH (08:11)
[2021-03-18] MEDS: LACTASE 3000 UNIT TAB PO SCH ×3 (08:11→17:39)
[2021-03-18] MEDS: POTASSIUM CHLORIDE 10 MEQ TABCR PO SCH ×2 (08:12→21:11)
[2021-03-18] MEDS: BACLOFEN 10 MG TAB PO SCH ×4 (10:56→21:13)
[2021-03-18] MEDS: FERROUS SULFATE 325 MG TAB PO SCH (10:57)
[2021-03-18] MEDS: levoFLOXacin 750 MG TAB PO SCH (10:58)
[2021-03-18] MEDS: ALBUT/IPRATROP 3MG/0.5MG NEB 3 ML VIAL NEB PRN (12:35)
--- NOTE | 2021-03-18 15:29 | Hospitalist Progress Note ---
Date of Service March 18, 2021 Assessment & Plan (1) Pneumonia: (2) Catheter-associated urinary tract infection: Plan: #. Pneumonia: Has bibasilar infiltration more on the right could be secondary to aspiration versus HCAP Initial lactic acid 3.2---> 1.9, no other signs of sepsis. MRSA screen negative Zosyn 03/12 --> change to Augmentin 03/14 -->levaquin 03/15 d/t E.cloacae in UCx -->stop date 03/19 No increasing white count and no fever and no chills Cough and shortness of breath have been improving, patient on room air 03/12 blood cultureno growth so far, follow-up final results. Palliative care on board for goals of care as per request from the [id number]. Has had speech evaluation Recommended aspiration precaution during feeding If the condition persist will need to have a formal barium swallow down the line #. Hypoxia #. Pul Edema - mild #. Left Pl Effusion - Small Patient presenting from home with reports of shortness of breath associated with cough and wheezing October 2019 ECHO was a poor qualitygrossly normal LV function. Patient requiring on 2 L nasal cannula oxygen at presentation and on and off. Likely secondary to pneumonia and pulmonary edema 03/14 CXR: Mild pulmonary edema. Possible small left pleural effusion. 03/14 IV dose of Lasix, use Lasix as needed, strict I's and O's. Continue to monitor pleural effusion and pulmonary edema. Use supplemental oxygen as needed and nebulization as needed. --> Patient is improved clinically. 03/12 Zosyn to Augmentin 03/14 --->levaquin 03/15, stop date 03/19 #. Abnormal Left ankle XR Patient complaining of multiple joint pain, more on the left leg 03/15 x-ray left ankle: A 1.8 cm linear ossific density posterior to the talus may represent an avulsion fracture from the dorsal calcaneus. Clinical correlation will be essential. Orthopedic consulted for left calcaneal superior posterior avulsion fracture status post fall: High tide walking boot removed, replaced with a dorsiflexion splint with a negative relief under the left heel and lambs wool padding to provide essentially neutral support for neutral dorsiflexion of the left ankle and heel and foot. Orthopedic recommending may use the walking boot for transfers or ambulating and wheelchair as necessary. Follow-up with outpatient orthopedics. #. CAUTI: #. Chronic indwelling Romeo catheter History of recurrent UTIs. Patient overdue for follow-up with urology---> Alexandrea BETANCOURT to arrange for outpatient follow-up for management of her chronic Romeo. UA was suggestive of infection, 03/12 urine culturepansensitive E. coli and GNB, f/u final result. Patient on levaquin #. CMT (Ufjbhwu-Yepks-Stxam disease): -S/p multiple lower extremity procedures, most recently s/p left knee closed reduction total knee arthroplasty subluxation on 02/16/2021 - patient is to remain nonweightbearing of the left lower extremity and limited weightbearing on the right lower extremity -She has been almost bedbound #. Parkinson disease: -Continue carbidopa-levodopa -No acute tremor she is slow in response and activities #. Chronic pain: -Continue home regimen -She has had recent dislocation of the left knee which is repositioned during her last hospital stay and she is not having any acute symptoms from that -She was evaluated by pain therapist during her recent admission and no further recommendations were given #. DVT prophylaxis: -SQ Lovenox Disposition: I believe patient will benefit from palliative care. Medically stable, can be DC'd as soon as we find placement. 03/17: [id number] called over the phone and updated about her status and answered all the questions. There are some social issues surrounding her care upon discharge, updated case packer afterwards. Admission and Anticipated Discharge Date Admission Date: March 12, 2021 Subjective Patient was sitting up in bed, on room air, NAD, no new acute events overnight. Patient reports b/l leg pain , more so on left. She also reports pain in many other joints as usual. Patient is eating and moving bowels okay. Patient denies headache/dizziness/chest pain/palpitation/other review of symptoms. Physical Exam Physical Exam: GENERAL: Alert and oriented x3. NAD, on RA. HEENT: No pallor, no icterus. Pupils equal, round and reactive to light. Oral mucosa moist. NECK: No JVD, no neck masses. HEART: S1 and S2 heard. Regular rate and rhythm. No murmur, no gallop. RESPIRATORY SYSTEM: Normal AP diameter. No accessory muscle use. No wheezing, b/l crackles improving. ABDOMEN: Soft, bowel sounds present, nontender, no distention. CENTRAL NERVOUS SYSTEM: No facial droop. Speech is clear. Obeys simple commands. Moves extremities. EXTREMITIES: 2+ pedal edema, no erythema seen. Orthopedic boots present on both lower extremity. Results & Data Results & Data ([facility] [place]) Vital Signs (Past 12 Hours) Vital Signs Temp Pulse Pulse Resp BP Pulse Ox 03/18/21 15:00 36.8 C 85 18 143/70 H 94 03/18/21 12:36 80 18 93 03/18/21 08:10 60 144/75 H 03/18/21 08:00 36.4 C L 63 18 143/80 H 95 03/18/21 07:00 56 L 03/18/21 03:29 36.6 C 60 18 116/73 92
[2021-03-18] MEDS: traMADol HCL 50 MG TABLET PO PRN (17:39)
[2021-03-18] MEDS: ENOXAPARIN INJ 40 MG/0.4 ML SYR SQ SCH (21:10)
[2021-03-18] MEDS: EZETIMIBE 10 MG TABLET PO SCH (21:12)
[2021-03-18] MEDS: lamoTRIgine 25 MG TAB PO SCH (22:03)
[2021-03-18] MEDS: ZOLPIDEM TARTRATE 5 MG TAB PO PRN (22:08)
[2021-03-19] MEDS: traMADol HCL 50 MG TABLET PO PRN (04:06)
[2021-03-19] MEDS: DICLOFENAC SOD 1% GEL 100 GM TUBE EXT SCH ×4 (05:53→21:50)
[2021-03-19] MEDS: LACTASE 3000 UNIT TAB PO SCH ×3 (05:55→17:06)
[2021-03-19] MEDS: ACETAMINOPHEN 325 MG TAB PO PRN ×2 (07:33→14:42)
[2021-03-19] MEDS: POTASSIUM CHLORIDE 10 MEQ TABCR PO SCH ×2 (09:12→21:50)
[2021-03-19] MEDS: ASPIRIN 81 MG ECTAB PO SCH (09:13)
[2021-03-19] MEDS: CARBIDOPA/LEVODOPA 25/100MG TAB PO SCH ×3 (09:13→21:47)
[2021-03-19] MEDS: BACLOFEN 10 MG TAB PO SCH ×4 (09:13→21:46)
[2021-03-19] MEDS: amLODIPine BESYLATE 5 MG TAB PO SCH (09:13)
[2021-03-19] MEDS: ISOSORBIDE MONO EXTENDED REL 30 MG TABCR PO SCH (09:14)
[2021-03-19] MEDS: GABAPENTIN 300 MG CAP PO SCH ×3 (09:14→21:47)
[2021-03-19] MEDS: LIDOCAINE 5% 1 PATCH TD SCH (09:15)
[2021-03-19] MEDS: PANTOprazole 40 MG TAB PO SCH (09:15)
[2021-03-19] MEDS: ADVANCED PROBIOTIC 1250 MG CAPSULE PO SCH (09:15)
[2021-03-19] MEDS: MELOXICAM 7.5 MG TAB PO SCH (09:15)
[2021-03-19] MEDS: ALBUTEROL 0.5% NEB SOLN 2.5 MG/0.5 ML VIAL NEB PRN (09:50)
--- NOTE | 2021-03-19 11:33 | Hospitalist Progress Note ---
Date of Service March 19, 2021 Assessment & Plan (1) Pneumonia: (2) Catheter-associated urinary tract infection: Plan: Pneumonia Has bibasilar infiltration more on the right could be secondary to aspiration versus HCAP Initial lactic acid 3.2---> 1.9, no other signs of sepsis. MRSA screen negative Zosyn 03/12 --> change to Augmentin 03/14 -->levaquin 03/15 d/t E.cloacae in UCx -->stop date 03/19 No increasing white count and no fever and no chills Cough and shortness of breath have been improving, patient on room air 03/12 blood cultureno growth so far, follow-up final results. Palliative care on board for goals of care as per request from the [id number] - hospice/palliative was discussed as possible option Has had speech evaluation Recommended aspiration precaution during feeding If the condition persist will need to have a formal barium swallow down the line Hypoxia Pulm Edema - mild Left Plueral Effusion - Small Patient presenting from home with reports of shortness of breath associated with cough and wheezing October 2019 ECHO was a poor qualitygrossly normal LV function. Patient requiring on 2 L nasal cannula oxygen at presentation and on and off. Likely secondary to pneumonia and pulmonary edema 03/14 CXR: Mild pulmonary edema. Possible small left pleural effusion. 03/14 IV dose of Lasix, use Lasix as needed, strict I's and O's. Continue to monitor pleural effusion and pulmonary edema. Use supplemental oxygen as needed and nebulization as needed. --> Patient is improved clinically. 03/12 Zosyn to Augmentin 03/14 --->levaquin 03/15, stop date 03/19 Abnormal Left ankle XR Patient complaining of multiple joint pain, more on the left leg 03/15 x-ray left ankle: A 1.8 cm linear ossific density posterior to the talus may represent an avulsion fracture from the dorsal calcaneus. Clinical correlation will be essential. Orthopedic consulted for left calcaneal superior posterior avulsion fracture status post fall: High tide walking boot removed, replaced with a dorsiflexion splint with a negative relief under the left heel and lambs wool padding to provide essentially neutral support for neutral dorsiflexion of the left ankle and heel and foot. Orthopedic recommending may use the walking boot for transfers or ambulating and wheelchair as necessary. Follow-up with outpatient orthopedics. [place] [facility] [place]I: #. Chronic indwelling Romeo catheter History of recurrent UTIs. Patient overdue for follow-up with urology---> Alexandrea BETANCOURT to arrange for outpatient follow-up for management of her chronic Romeo. UA was suggestive of infection, 03/12 urine culturepansensitive E. coli and GNB, f/u final result. Patient completed Levaquin #. CMT (Abgwwci-Rjrrw-Tgjss disease): -S/p multiple lower extremity procedures, most recently s/p left knee closed reduction total knee arthroplasty subluxation on 02/16/2021 - patient is to remain nonweightbearing of the left lower extremity and limited weightbearing on the right lower extremity -She has been almost bedbound #. Parkinson disease: -Continue carbidopa-levodopa -No acute tremor she is slow in response and activities #. Chronic pain: -Continue home regimen -She has had recent dislocation of the left knee which is repositioned during her last hospital stay and she is not having any acute symptoms from that -She was evaluated by pain therapist during her recent admission and no further recommendations were given #. DVT prophylaxis: -SQ Lovenox Disposition: I believe patient will benefit from palliative care. Medically stable, can be DC'd as soon as we find placement. Pt seen and examined in collaboration with Dr. Reno, please see addendum Admission and Anticipated Discharge Date Admission Date: March 12, 2021 Supervising Physician Co-Signing Physician Notes 76-year-old lady with history of Charcot Carole tooth disease being managed for pneumonia, mild pulmonary edema and complicated UTI/CAUTI; improving on all aspect. Stable to discharge. Awaiting placement. Agree with exam findings as per CRISTI I have seen and examined the patient and have discussed the case with the provider above. I agree with the assessment and plan as stated. Subjective Patient was seen and examined in 308. Follow-up pneumonia. She offers no acute concerns today. She feels her breathing is at baseline. Sh e denies cough. She denies fever, chills, sweats, lightheadedness, dizziness, chest pain, nausea, vomiting. She had a BM yesterday. Continues have Romeo cath in place. Review of Systems Review of Systems: All systems reviewed & are unremarkable except as noted in HPI & below Physical Exam Physical Exam: Gen: WD/WN, F, chronically ill appearing, NAD, A&O x3 basics HEENT: Normocephalic, atraumatic, conjunctivae moist, sclerae anicteric, mucous membranes moist. Lung: Clear to Auscultation bilaterally, no wheezes/rales/rhonchi Heart: Regular rate, regular rhythm, no murmurs, rubs, or gallops Abdomen: Soft, NT, ND +BS x 4 Extremities: b/l cam boots to RLE, leslie bandage to LLE foot, ice in place Skin: Warm, no rash, negative turgor. : +Romeo cath Results & Data Results & Data ([facility]) Vital Signs (Past 12 Hours) Vital Signs Temp Pulse Resp BP Pulse Ox 03/19/21 09:50 80 20 96 03/19/21 07:43 36.3 C L 60 16 129/74 95 Medications Administered Current Inpatient Medications Acetaminophen (Acetaminophen 325 Mg Tab) 650 mg PO Q4H PRN PRN Reason: pain/fever Stop: 04/11/21 16:59 Last Admin: 03/19/21 07:33 Dose: 650 mg Documented by: Albuterol (Albuterol 0.5% Neb Soln 2.5 Mg/0.5 Ml Vial) 2.5 mg NEB Q6R PRN PRN Reason: wheezing, SOB Stop: 04/13/21 18:59 Last Admin: 03/19/21 09:50 Dose: 2.5 mg Documented by: Albuterol (Albut/Ipratrop 3mg/0.5mg Neb 3 Ml Vial) 3 ml NEB Q4R PRN PRN Reason: Shortness Of Breath Or Wheezing Stop: 04/11/21 18:59 Last Admin: 03/18/21 12:35 Dose: 3 ml Documented by: Amlodipine Besylate (Amlodipine Besylate 5 Mg Tab) 10 mg PO DAILY [facility] Stop: 04/12/21 08:59 Last Admin: 03/19/21 09:13 Dose: 10 mg Documented by: Aspirin (Aspirin 81 Mg Ectab) 81 mg PO DAILY [facility] Stop: 04/12/21 08:59 Last Admin: 03/19/21 09:13 Dose: 81 mg Documented by: Baclofen (Baclofen 10 Mg Tab) 10 mg PO QID [facility] Stop: 04/11/21 16:59 Last Admin: 03/19/21 09:13 Dose: 10 mg Documented by: Carbidopa/Levodopa (Carbidopa/Levodopa 25/100mg Tab) 1 tab PO TID [facility] Stop: 04/11/21 20:59 Last Admin: 03/19/21 09:13 Dose: 1 tab Documented by: Diclofenac Sodium (Diclofenac Sod 1% Gel 100 Gm Tube) 2 gm EXT Q6 [facility] Stop: 04/13/21 15:29 Last Admin: 03/19/21 05:53 Dose: 2 gm Documented by: Docusate Sodium (Docusate Sodium 100 Mg Cap) 100 mg PO DAILY PRN PRN Reason: Constipation Stop: 04/11/21 16:59 Last Admin: 03/18/21 08:07 Dose: 100 mg Documented by: Ezetimibe (Ezetimibe 10 Mg Tablet) 10 mg PO HS [facility] Stop: 04/11/21 20:59 Last Admin: 03/18/21 21:12 Dose: 10 mg Documented by: Enoxaparin Sodium (Enoxaparin Inj 40 Mg/0.4 Ml Syr) 40 mg SQ Q24H [facility] Stop: 04/11/21 16:59 Last Admin: 03/18/21 21:10 Dose: 40 mg Documented by: Ferrous Sulfate (Ferrous Sulfate 325 Mg Tab) 325 mg PO DAILY@1100 [facility] Stop: 04/12/21 10:59 Last Admin: 03/18/21 10:57 Dose: 325 mg Documented by: Gabapentin (Gabapentin 300 Mg Cap) 900 mg PO TID [facility] Stop: 04/11/21 20:59 Last Admin: 03/19/21 09:14 Dose: 900 mg Documented by: Isosorbide Mononitrate (Isosorbide [place] Extended Rel 30 Mg Tabcr) 30 mg PO QAM [facility] Stop: 04/12/21 08:59 Last Admin: 03/19/21 09:14 Dose: 30 mg Documented by: Lactase (Lactase 3000 Unit Tab) 3,000 units PO AC [facility] Stop: 04/11/21 16:59 Last Admin: 03/19/21 05:55 Dose: 3,000 units Documented by: Lactobacillus Acidoph/Casei/Rhamnos (Advanced Probiotic 1250 Mg Capsule) 2 cap PO DAILY [facility] Stop: 04/14/21 14:29 Last Admin: 03/19/21 09:15 Dose: 2 cap Documented by: Lamotrigine (Lamotrigine 25 Mg Tab) 75 mg PO HS [facility] Stop: 04/11/21 20:59 Last Admin: 03/18/21 22:03 Dose: 75 mg Documented by: Levofloxacin (Levofloxacin 750 Mg Tab) 750 mg PO DAILY@1100 [facility]; Protocol Stop: 03/22/21 15:59 Last Admin: 03/18/21 10:58 Dose: 750 mg Documented by: Lidocaine (Lidocaine 5% 1 Patch) 1 patch TD DAILY [facility] Stop: 04/12/21 08:59 Last Admin: 03/19/21 09:15 Dose: 1 patch Documented by: Meloxicam (Meloxicam 7.5 Mg Tab) 7.5 mg PO DAILY [facility] Stop: 04/12/21 08:59 Last Admin: 03/19/21 09:15 Dose: 7.5 mg Documented by: Miscellaneous (Toviaz-Order Awaiting Action) 1 ea N/A QS [facility] Stop: 04/12/21 00:00 Last Admin: 03/19/21 09:06 Dose: Not Given Documented by: Miscellaneous (Remove Lidoderm Patch) 1 ea N/A HS [facility] Stop: 04/11/21 20:59 Last Admin: 03/18/21 21:11 Dose: 1 ea Documented by: Pantoprazole Sodium (Pantoprazole 40 Mg Tab) 40 mg PO DAILY [facility] Stop: 04/12/21 08:59 Last Admin: 03/19/21 09:15 Dose: 40 mg Documented by: Polyethylene Glycol (Polyethylene (Miralax) 17 Gm Pack) 17 gm PO DAILY PRN PRN Reason: Constipation Stop: 04/11/21 16:59 Last Admin: 03/18/21 08:07 Dose: 17 gm Documented by: Potassium Chloride (Potassium Chloride 10 Meq Tabcr) 10 meq PO BID [facility] Stop: 04/11/21 20:59 Last Admin: 03/19/21 09:12 Dose: 10 meq Documented by: Tramadol HCl (Tramadol Hcl 50 Mg Tablet) 50 mg PO BID PRN PRN Reason: Pain Stop: 04/11/21 16:59 Last Admin: 03/19/21 04:06 Dose: 50 mg Documented by: Zolpidem Tartrate (Zolpidem Tartrate 5 Mg Tab) 5 mg PO HS PRN PRN Reason: Sleep Stop: 04/11/21 20:58 Last Admin: 03/18/21 22:08 Dose: 5 mg Documented by:
[2021-03-19] MEDS: FERROUS SULFATE 325 MG TAB PO SCH (12:27)
[2021-03-19] MEDS: levoFLOXacin 750 MG TAB PO SCH (12:50)
[2021-03-19] MEDS: lamoTRIgine 25 MG TAB PO SCH (21:47)
[2021-03-19] MEDS: ENOXAPARIN INJ 40 MG/0.4 ML SYR SQ SCH (21:48)
[2021-03-19] MEDS: EZETIMIBE 10 MG TABLET PO SCH (21:48)
[2021-03-19] MEDS: ZOLPIDEM TARTRATE 5 MG TAB PO PRN (21:50)
[2021-03-20] MEDS: DICLOFENAC SOD 1% GEL 100 GM TUBE EXT SCH ×3 (04:23→17:39)
[2021-03-20] MEDS: traMADol HCL 50 MG TABLET PO PRN ×2 (04:23→20:16)
[2021-03-20 06:21] LABS: Hematocrit (blood only) 34.8 % (37-47); Hemoglobin 10.8 g/dL (12.0-16.0); Mean Corpuscular Hemoglobin 27.4 pg (25-34); Mean Corpuscular Volume 88.3 fL (80-100); Mean Platelet Volume 9.4 fL (7.4-10.4); Platelet Count 265 K/uL (130-400); RDW Standard Deviation 45.3 fL (36.4-46.3); Red Blood Count 3.94 M/uL (4.2-5.4); White Blood Count 5.85 K/uL (4.8-10.8)
[2021-03-20 06:51] LABS: BUN Creatinine Ratio 16.7 (10-20); Calcium 9.1 mg/dl (8.5-10.1); Creatinine Clr Calc Pharmacy 66.1 ml/min; Est GFR (African American) 88.9 ml/min; Est GFR (Non-African American) 76.7 ml/min; Potassium 3.5 mmol/L (3.5-5.1)
[2021-03-20] MEDS: ACETAMINOPHEN 325 MG TAB PO PRN (08:38)
[2021-03-20] MEDS: LIDOCAINE 5% 1 PATCH TD SCH (08:42)
[2021-03-20] MEDS: ASPIRIN 81 MG ECTAB PO SCH (08:43)
[2021-03-20] MEDS: amLODIPine BESYLATE 5 MG TAB PO SCH (08:43)
[2021-03-20] MEDS: LACTASE 3000 UNIT TAB PO SCH ×3 (08:43→17:39)
[2021-03-20] MEDS: CARBIDOPA/LEVODOPA 25/100MG TAB PO SCH ×3 (08:44→20:19)
[2021-03-20] MEDS: BACLOFEN 10 MG TAB PO SCH ×4 (08:44→20:17)
[2021-03-20] MEDS: ISOSORBIDE MONO EXTENDED REL 30 MG TABCR PO SCH (08:45)
[2021-03-20] MEDS: GABAPENTIN 300 MG CAP PO SCH ×3 (08:45→20:17)
[2021-03-20] MEDS: ADVANCED PROBIOTIC 1250 MG CAPSULE PO SCH (08:46)
[2021-03-20] MEDS: PANTOprazole 40 MG TAB PO SCH (08:46)
[2021-03-20] MEDS: MELOXICAM 7.5 MG TAB PO SCH (08:46)
[2021-03-20] MEDS: POTASSIUM CHLORIDE 10 MEQ TABCR PO SCH ×2 (08:52→20:16)
[2021-03-20] MEDS: FERROUS SULFATE 325 MG TAB PO SCH (11:03)
[2021-03-20] MEDS: levoFLOXacin 750 MG TAB PO SCH (11:03)
--- NOTE | 2021-03-20 11:21 | Hospitalist Progress Note ---
Date of Service March 20, 2021 Assessment & Plan (1) Pneumonia: (2) Catheter-associated urinary tract infection: Plan: Pneumonia Has bibasilar infiltration more on the right could be secondary to aspiration versus HCAP Initial lactic acid 3.2---> 1.9, no other signs of sepsis. MRSA screen negative Zosyn 03/12 --> change to Augmentin 03/14 -->levaquin 03/15 d/t E.cloacae in UCx -->stop date 03/19 No increasing white count and no fever and no chills Cough and shortness of breath have been improving, patient on room air 03/12 blood cultureno growth so far, follow-up final results. Palliative care on board for goals of care as per request from the [id number] - hospice/palliative was discussed as possible option Has had speech evaluation Recommended aspiration precaution during feeding If the condition persist will need to have a formal barium swallow down the line Hypoxia Pulm Edema - mild Left Plueral Effusion - Small Patient presenting from home with reports of shortness of breath associated with cough and wheezing October 2019 ECHO was a poor qualitygrossly normal LV function. Patient requiring on 2 L nasal cannula oxygen at presentation and on and off. Likely secondary to pneumonia and pulmonary edema 03/14 CXR: Mild pulmonary edema. Possible small left pleural effusion. 03/14 IV dose of Lasix, use Lasix as needed, strict I's and O's. Continue to monitor pleural effusion and pulmonary edema. Use supplemental oxygen as needed and nebulization as needed. --> Patient is improved clinically. 03/12 Zosyn to Augmentin 03/14 --->levaquin 03/15, stop date 03/19 Abnormal Left ankle XR Patient complaining of multiple joint pain, more on the left leg 03/15 x-ray left ankle: A 1.8 cm linear ossific density posterior to the talus may represent an avulsion fracture from the dorsal calcaneus. Clinical correlation will be essential. Orthopedic consulted for left calcaneal superior posterior avulsion fracture status post fall: High tide walking boot removed, replaced with a dorsiflexion splint with a negative relief under the left heel and lambs wool padding to provide essentially neutral support for neutral dorsiflexion of the left ankle and heel and foot. Orthopedic recommending may use the walking boot for transfers or ambulating and wheelchair as necessary. Follow-up with outpatient orthopedics. Dr. Crain, [facility] [place] CAUTI: Chronic indwelling Romeo catheter History of recurrent UTIs. Patient overdue for follow-up with urology---> Alexandrea BETANCOURT to arrange for outpatient follow-up for management of her chronic Romeo. UA was suggestive of infection, 03/12 urine culturepansensitive E. coli and GNB, f/u final result. Patient completed Levaquin CMT (Rqunmfo-Wxtfd-Ujxmn disease): S/p multiple lower extremity procedures, most recently s/p left knee closed reduction total knee arthroplasty subluxation on 02/16/2021 - patient is to remain nonweightbearing of the left lower extremity and limited weightbearing on the right lower extremity She has been almost bedbound Parkinson disease: Continue carbidopa-levodopa No acute tremor she is slow in response and activities Chronic pain: Continue home regimen She has had recent dislocation of the left knee which is repositioned during her last hospital stay and she is not having any acute symptoms from that She was evaluated by pain therapist during her recent admission and no further recommendations were given DVT prophylaxis: SQ Lovenox Disposition: Medically stable, awaiting placement, per case management likely not until Friday Pt seen and examined in collaboration with Dr. Reno, please see addendum Admission and Anticipated Discharge Date Admission Date: March 12, 2021 Supervising Physician Co-Signing Physician Notes 76-year-old lady with history of Charcot Carole tooth disease being managed for pneumonia, mild pulmonary edema and complicated UTI/CAUTI; improving on all aspect. Stable to discharge. Awaiting placement. Agree with exam findings as per PA-C I have seen and examined the patient and have discussed the case with the provider above. I agree with the assessment and plan as stated. Subjective Patient was seen and examined in 308. Follow-up pneumonia. She offers no acute concerns today. Her appetite is good. She complains of pain to her lower extremities. She denies fever, chills, sweats, lightheadedness, dizziness, chest pain, shortness of breath, nausea, vomiting or abdominal pain. She is moving her bowels. She is awaiting to be discharged to rehab. Review of Systems Review of Systems: All systems reviewed & are unremarkable except as noted in HPI & below Physical Exam Physical Exam: Gen: WD/WN, F, chronically ill appearing, NAD, A&O x3 basics HEENT: Normocephalic, atraumatic, conjunctivae moist, sclerae anicteric, mucous membranes moist. Lung: Clear to Auscultation bilaterally, no wheezes/rales/rhonchi Heart: Regular rate, regular rhythm, no murmurs, rubs, or gallops Abdomen: Soft, NT, ND +BS x 4 Extremities: b/l cam boots to RLE, leslie bandage to LLE foot Skin: Warm, no rash, negative turgor. : +Romeo cath Results & Data Results & Data ([facility]) Vital Signs (Past 12 Hours) Vital Signs Temp Pulse Resp BP Pulse Ox 03/20/21 07:57 36.4 C L 64 16 144/80 H 96 Laboratory Results Short CBC 03/20/21 Range/Units 05:44 WBC 5.85 (4.8-10.8) K/uL Hgb 10.8 L (12.0-16.0) g/dL Hct 34.8 L (37-47) % Plt Count 265 (130-400) K/uL BMP 03/20/21 05:44 Sodium 143 Potassium 3.5 Chloride 111 H Carbon Dioxide 25 BUN 13 Creatinine 0.76 Glucose 105 H Calcium 9.1 Medications Administered Current Inpatient Medications Acetaminophen (Acetaminophen 325 Mg Tab) 650 mg PO Q4H PRN PRN Reason: pain/fever Stop: 04/11/21 16:59 Last Admin: 03/20/21 08:38 Dose: 650 mg Documented by: Albuterol (Albuterol 0.5% Neb Soln 2.5 Mg/0.5 Ml Vial) 2.5 mg NEB Q6R PRN PRN Reason: wheezing, SOB Stop: 04/13/21 18:59 Last Admin: 03/19/21 09:50 Dose: 2.5 mg Documented by: Albuterol (Albut/Ipratrop 3mg/0.5mg Neb 3 Ml Vial) 3 ml NEB Q4R PRN PRN Reason: Shortness Of Breath Or Wheezing Stop: 04/11/21 18:59 Last Admin: 03/18/21 12:35 Dose: 3 ml Documented by: Amlodipine Besylate (Amlodipine Besylate 5 Mg Tab) 10 mg PO DAILY [facility] Stop: 04/12/21 08:59 Last Admin: 03/20/21 08:43 Dose: 10 mg Documented by: Aspirin (Aspirin 81 Mg Ectab) 81 mg PO DAILY [facility] Stop: 04/12/21 08:59 Last Admin: 03/20/21 08:43 Dose: 81 mg Documented by: Baclofen (Baclofen 10 Mg Tab) 10 mg PO QID [facility] Stop: 04/11/21 16:59 Last Admin: 03/20/21 08:44 Dose: 10 mg Documented by: Carbidopa/Levodopa (Carbidopa/Levodopa 25/100mg Tab) 1 tab PO TID [facility] Stop: 04/11/21 20:59 Last Admin: 03/20/21 08:44 Dose: 1 tab Documented by: Diclofenac Sodium (Diclofenac Sod 1% Gel 100 Gm Tube) 2 gm EXT Q6 [facility] Stop: 04/13/21 15:29 Last Admin: 03/20/21 11:02 Dose: 2 gm Documented by: Docusate Sodium (Docusate Sodium 100 Mg Cap) 100 mg PO DAILY PRN PRN Reason: Constipation Stop: 04/11/21 16:59 Last Admin: 03/18/21 08:07 Dose: 100 mg Documented by: Ezetimibe (Ezetimibe 10 Mg Tablet) 10 mg PO HS [facility] Stop: 04/11/21 20:59 Last Admin: 03/19/21 21:48 Dose: 10 mg Documented by: Enoxaparin Sodium (Enoxaparin Inj 40 Mg/0.4 Ml Syr) 40 mg SQ Q24H [facility] Stop: 04/11/21 16:59 Last Admin: 03/19/21 21:48 Dose: 40 mg Documented by: Ferrous Sulfate (Ferrous Sulfate 325 Mg Tab) 325 mg PO DAILY@1100 [facility] Stop: 04/12/21 10:59 Last Admin: 03/20/21 11:03 Dose: 325 mg Documented by: Gabapentin (Gabapentin 300 Mg Cap) 900 mg PO TID [facility] Stop: 04/11/21 20:59 Last Admin: 03/20/21 08:45 Dose: 900 mg Documented by: Isosorbide Mononitrate (Isosorbide Petroleum Extended Rel 30 Mg Tabcr) 30 mg PO QAM [facility] Stop: 04/12/21 08:59 Last Admin: 03/20/21 08:45 Dose: 30 mg Documented by: Lactase (Lactase 3000 Unit Tab) 3,000 units PO AC [facility] Stop: 04/11/21 16:59 Last Admin: 03/20/21 11:03 Dose: 3,000 units Documented by: Lactobacillus Acidoph/Casei/Rhamnos (Advanced Probiotic 1250 Mg Capsule) 2 cap PO DAILY [facility] Stop: 04/14/21 14:29 Last Admin: 03/20/21 08:46 Dose: 2 cap Documented by: Lamotrigine (Lamotrigine 25 Mg Tab) 75 mg PO [facility] Stop: 04/11/21 20:59 Last Admin: 03/19/21 21:47 Dose: 75 mg Documented by: Levofloxacin (Levofloxacin 750 Mg Tab) 750 mg PO DAILY@1100 [facility]; Protocol Stop: 03/22/21 15:59 Last Admin: 03/20/21 11:03 Dose: 750 mg Documented by: Lidocaine (Lidocaine 5% 1 Patch) 1 patch TD DAILY [facility] Stop: 04/12/21 08:59 Last Admin: 03/20/21 08:42 Dose: 1 patch Documented by: Meloxicam (Meloxicam 7.5 Mg Tab) 7.5 mg PO DAILY [facility] Stop: 04/12/21 08:59 Last Admin: 03/20/21 08:46 Dose: 7.5 mg Documented by: Miscellaneous (Toviaz-Order Awaiting Action) 1 ea N/A QS [facility] Stop: 04/12/21 00:00 Last Admin: 03/20/21 07:32 Dose: Not Given Documented by: Miscellaneous (Remove Lidoderm Patch) 1 ea N/A HS [facility] Stop: 04/11/21 20:59 Last Admin: 03/19/21 21:50 Dose: 1 ea Documented by: Pantoprazole Sodium (Pantoprazole 40 Mg Tab) 40 mg PO DAILY [facility] Stop: 04/12/21 08:59 Last Admin: 03/20/21 08:46 Dose: 40 mg Documented by: Polyethylene Glycol (Polyethylene (Miralax) 17 Gm Pack) 17 gm PO DAILY PRN PRN Reason: Constipation Stop: 04/11/21 16:59 Last Admin: 03/18/21 08:07 Dose: 17 gm Documented by: Potassium Chloride (Potassium Chloride 10 Meq Tabcr) 10 meq PO BID [facility] Stop: 04/11/21 20:59 Last Admin: 03/20/21 08:52 Dose: 10 meq Documented by: Tramadol HCl (Tramadol Hcl 50 Mg Tablet) 50 mg PO BID PRN PRN Reason: Pain Stop: 04/11/21 16:59 Last Admin: 03/20/21 04:23 Dose: 50 mg Documented by: Zolpidem Tartrate (Zolpidem Tartrate 5 Mg Tab) 5 mg PO HS PRN PRN Reason: Sleep Stop: 04/11/21 20:58 Last Admin: 03/19/21 21:50 Dose: 5 mg Documented by:
[2021-03-20] MEDS: ALBUT/IPRATROP 3MG/0.5MG NEB 3 ML VIAL NEB PRN (13:43)
[2021-03-20] MEDS: lamoTRIgine 25 MG TAB PO SCH (20:18)
[2021-03-20] MEDS: ENOXAPARIN INJ 40 MG/0.4 ML SYR SQ SCH (20:19)
[2021-03-20] MEDS: EZETIMIBE 10 MG TABLET PO SCH (20:19)
--- NOTE | 2021-03-20 23:21 | Communication Note ---
Date of Service: March 20, 2021 Patient noted to be well around 11 PM as per RN. Patient complained of chest pain. Patient subsequently noted by RN around 11:10 PM to have a new right facial droop, decreased responsiveness. Code purple called. PPE : Obese, dysarthric Right facial droop Gait and stance not assessed EKG as per my interpretation : Rate 75, NSR, LAD, LAFB, T wave abnormalities inferior leads Stroke alert subsequently called. CT head initial read: Studyis limited bypatient motion. No acute abnormality. No acute intracranial hemorrhage or abnormal extra-axial fluid collection. No acute stroke. Non- specificwhite matter changes, most commonlyseen with small vessel disease. Age- appropriate central and peripheral atrophy. No midline shift. No paranasal sinus air-fluid level. No acute fracture. Metal hardware transfixing old bilateral zygomatic fractures.. CT angio head initial read: No acute abnormality. Compared to 11/03/2020. No intracranial thrombosis or occlusion. No aneurysmor vascular malformation. Mild atherosclerotic plaque at the cavernous internal carotid arterieswithout a hemodynamically significant s tenosis. Anterior middle cerebral arteryare unremarkable. 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 Posterior cerebral arterydistal runoff is intact. CT angio neck initial read: No acute abnormality. No thrombosis of occlusion. No evidence for dissection. Mild atherosclerotic plaque at the bilateral carotid bulbswithout a hemodynamicallysignificant stenosis. Otherwise intact carotid and vertebral arteries. Tortuous distal cervical right internal carotid artery. Postoperative and degenerative changes of the cervical spine and mandible. CT chest initial read: Initial series to exclude the peripheryof the pulmonaryarteries. Asecond series included the entire pulmonaryarteries although the contrast bolus is relativel yweak limiting evaluation of the distal branches. No pulmonaryarteryfilling defect to suggest pulmonaryarterythrombosis. No thoracic aortic aneurysmor dissection. Atherosclerotic aortic vascular calcifications. Heart is mildlyenlarged. No evidence for right heart strain. No pericardial fluid or thickening. No evidence for pneumonia. Mild dependent atelectasis. No pleural effusion or pneumothorax. No acute fracture is identified. Metal artifact froma left shoulder arthroplasty. Postoperative changes of the lower cervical spine. Limited images of the upper abdomen are unremarkable. Degenerative changes of the thoracic spine Case discussed with [facility] stroke specialist road contractor (Dr. Gagnon). Hold off on TPA. MRI brain. Continue patient aspirin. Hold off on Plavix for possible aspirin failure until MRI results out. Patient transferred to PCU given stroke, chest pain concerns. Will relay to AM provider.
[2021-03-20] MEDS ORDERED: ACETAMINOPHEN 1,000 MG/100 ML VIAL IV STA (23:43)
[2021-03-21] MEDS ORDERED: OPTIRAY 320 125ml IV ONE (00:04)
[2021-03-21 00:05] LABS: Basophils # (auto) 0.02 K/uL (0-0.2); Basophils % (auto) 0.3 %; Eosinophils # (auto) 0.36 K/uL (0-0.5); Eosinophils % (auto) 4.9 %; Hematocrit (blood only) 36.8 % (37-47); Hemoglobin 11.7 g/dL (12.0-16.0); Immature Granulocytes # (auto) 0.03 K/uL (0.00-0.02); Immature Granulocytes % (auto) 0.4 %; Lymphocytes % (auto) 31.6 %; Mean Corpuscular Hemoglobin 27.9 pg (25-34); Mean Corpuscular Hgb Conc 31.8 g/dL (32-36); Mean Corpuscular Volume 87.6 fL (80-100); Mean Platelet Volume 9.7 fL (7.4-10.4); Monocytes % (auto) 8.2 %; Neutrophils # (auto) 3.98 K/uL (1.4-6.5); Neutrophils % (auto) 54.6 %; Platelet Count 295 K/uL (130-400); RDW Coefficient of Variation 14.2 % (11.5-14.5); RDW Standard Deviation 45.2 fL (36.4-46.3); White Blood Count 7.29 K/uL (4.8-10.8)
[2021-03-21 00:11] LABS: Partial Thromboplastin Ratio 1.3
[2021-03-21 00:16] LABS: Alanine Aminotransferase 8 U/L (12-78); Aspartate Aminotransferase 9 U/L (15-37); BUN Creatinine Ratio 18.8 (10-20); Blood Urea Nitrogen 12 mg/dl (7-18); Calcium 9.1 mg/dl (8.5-10.1); Carbon Dioxide 24 mmol/L (21-32); Chloride 109 mmol/L (98-107); Creatinine Clr Calc Pharmacy 77.3 ml/min; Est GFR (African American) 100.7 ml/min; Est GFR (Non-African American) 86.8 ml/min; Glucose 93 mg/dl (70-99); Magnesium 1.7 mg/dl (1.8-2.4); Potassium 3.7 mmol/L (3.5-5.1); Sodium 141 mmol/L (136-145)
[2021-03-21 00:20] LABS: Albumin Globulin Ratio 0.9 (0.9-2); Alkaline Phosphatase 79 U/L (45-117); Bilirubin,Total 0.3 mg/dl (0.2-1); Globulin 3.4 gm/dl (2.5-4.0); Total Protein 6.4 gm/dl (6.4-8.2); Troponin I < 0.015 ng/ml (0-0.045)
[2021-03-21] MEDS ORDERED: SODIUM CHLORIDE 0.9% 10ML FLUSH IV STA (00:37)
[2021-03-21] MEDS ORDERED: STAT IV STA (00:37)
[2021-03-21] MEDS ORDERED: No Aspirin within 24hrs of THROMBOLYTIC-Stroke PO SCH (00:45)
[2021-03-21] MEDS ORDERED: TENECTEPLASE 22 MG in SYRINGE 0 ML IV ONE (00:47)
[2021-03-21] MEDS ORDERED: ICU PROTOCOL FOR HYPERGLYCEMIA PRN (00:50)
[2021-03-21] MEDS ORDERED: PHARMACIST DISCHARGE MED REC CONSULT PRN (00:50)
[2021-03-21] MEDS: D5W AND NSS 1,000 ML IV SCH ×2 (02:27→22:06)
[2021-03-21] MEDS: DICLOFENAC SOD 1% GEL 100 GM TUBE EXT SCH ×4 (03:12→17:19)
--- NOTE | 2021-03-21 07:42 | CT Scan Report ---
CT head/brain wo con CLINICAL HISTORY: Stroke protocol. Weakness COMPARISON STUDY: No previous studies for comparison. TECHNIQUE: Standard CT of the Brain was performed without IV contrast. A dose lowering technique was utilized adhering to the principles of ALARA. FINDINGS: Extraaxial space: There is no evidence for subdural hematoma. There are no extra-axial fluid collecti ons. Ventricles and cisterns: The ventricles are normal in size and configuration. There is no evidence f or midline shift or mass effect. Parenchyma: There is no subarachnoid or intraparenchymal hemorrhage. There is no evidence for an acu te infarct or cerebral edema. There is homogeneous attenuation of the brain parenchyma. There are no gross mass lesions. Osseous structures: There is no evidence for an acute fracture. The visualized paranasal sinuses are clear. The mastoid air cells are clear bilaterally. Soft tissues: There is no evidence for focal soft tissue swelling. IMPRESSION: No acute intracerebral pathology. ACT 112: Negative or not required by law. Electronically signed by: Eliot Webber M.D. 03/21/2021 7:40 AM
[2021-03-21] MEDS ORDERED: MAGNESIUM SULFATE / D5W 1 GM/100 ML BAG IV ONE (07:45)
--- NOTE | 2021-03-21 07:49 | CT Scan Report ---
CT angio head w con CLINICAL HISTORY: Stroke protocol. Evaluate for CVA COMPARISON STUDY: CT brain without contrast from 03/20/2021 and previous CTA of the brain from 021 TECHNIQUE: CT Angio of the brain was performed.followed by image post processing with coronal, and s agittal MIP reformats. Contrast Volume: Optiray 320, 121 ml FINDINGS: Vascular findings: There is normal enhancement within the internal carotid arteries bilaterally. The re is normal enhancement of the anterior and middle cerebral arteries bilaterally. 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 However, the posterior communi cating arteries are patent bilaterally with filling of the distal posterior cerebral arteries bilater ally and normal flow present. Findings are unchanged. Nonvascular findings: There is homogeneous attenuation of the brain parenchyma bilaterally. There is no evidence for an acute infarct or cerebral edema. IMPRESSION: Essentially negative CT angiogram of the brain with contrast. There is no significant in terval change. ACT 112: Negative or not required by law. Electronically signed by: Eliot Webber M.D. 03/21/2021 7:47 AM
[2021-03-21] MEDS: LACTASE 3000 UNIT TAB PO SCH ×3 (08:00→17:18)
[2021-03-21] MEDS: traMADol HCL 50 MG TABLET PO PRN (08:00)
[2021-03-21] MEDS: CARBIDOPA/LEVODOPA 25/100MG TAB PO SCH ×3 (08:01→22:00)
[2021-03-21] MEDS: LIDOCAINE 5% 1 PATCH TD SCH (08:02)
[2021-03-21] MEDS: ASPIRIN 81 MG ECTAB PO SCH (08:02)
[2021-03-21] MEDS: ADVANCED PROBIOTIC 1250 MG CAPSULE PO SCH (08:02)
[2021-03-21] MEDS: PANTOprazole 40 MG TAB PO SCH (08:03)
[2021-03-21] MEDS: POTASSIUM CHLORIDE 10 MEQ TABCR PO SCH ×2 (08:06→22:02)
[2021-03-21] MEDS ORDERED: CLOPIDOGREL BISULFATE 75 MG TAB PO SCH (09:00)
--- NOTE | 2021-03-21 09:00 | CT Scan Report ---
CT ANGIOGRAPHY OF THE NECK WITH CONTRAST CLINICAL HISTORY: Cerebrovascular accident. COMPARISON STUDY: CTA of the neck November 03, 2020. Technique: CT angiography of the carotid and vertebral arteries was obtained using Optiray and 3D rec onstruction on an independent workstation. NASCET criteria was utilized. Automated exposure control was utilized for the study. A dose lowering technique was utilized adhering to the principles of ALA RA. CT DOSE: 2447.00 mGy.cm Findings: Please note that the chest CT and CTA of the head will be reported separately. Postoperativ e findings within the cervical spine are noted. There is no acute cervical spine fracture. No cervica l lymphadenopathy. The bilateral common carotid, cervical internal carotid and vertebral arteries are patent. No dissection within these vessels is identified. There is minimal plaque within the bilater al carotid bifurcations. No aneurysm within the neck is noted. There is no intraluminal thrombus IMPRESSION: Unremarkable CTA of the neck. ACT 112: Negative or not required by law. Electronically signed by: David Spring M.D. 03/21/2021 8:59 AM
--- NOTE | 2021-03-21 09:06 | CT Scan Report ---
CT ANGIOGRAPHY OF THE CHEST, PULMONARY EMBOLUS PROTOCOL CLINICAL HISTORY: Atypical chest pain. COMPARISON STUDY: Chest CT October 02, 2009. Chest radiograph March 15, 2021. TECHNIQUE: Following IV administration of 121 mL of Optiray, helical axial images of the chest were o btained utilizing the pulmonary embolus protocol. Maximal intensity projections and sagittal and cor onal reformats were viewed on an independent 3D workstation. IV contrast was administered without co mplication. Automated exposure control was utilized for the study. A dose lowering technique was ut ilized adhering to the principles of ALARA. FINDINGS: No pulmonary emboli are identified although the segmental and subsegmental pulmonary arter ies are suboptimally assessed on this exam. There is no thoracic aortic dissection. The caliber of th e thoracic aorta is normal. There is moderate cardiomegaly. No pneumothorax or pleural effusion is no joleen. Mild groundglass and tree-in-bud nodules within the bilateral lower lobes are noted. There is a small hiatal hernia. Subpleural lower lobe opacities reflect atelectasis. There is no thoracic lympha denopathy. No acute fracture or suspicious lesion is identified within visualized skeletal structures . IMPRESSION: 1. No pulmonary emboli identified although segmental and subsegmental pulmonary arteries suboptimally assessed on this exam. 2. No thoracic aortic dissection. 3. Moderate cardiomegaly. 4. Mild ground glass opacities and tree-in-bud nodules within the bilateral lower lobes. This favors a mild infectious process. A chest CT in in 3 months to ensure resolution is recommended ACT 112: Negative or not required by law. Electronically signed by: David Spring M.D. 03/21/2021 9:05 AM
--- NOTE | 2021-03-21 09:45 | Magnetic Resonance Report ---
MR brain wo con CLINICAL HISTORY: Evaluate for CVA. Previous stroke alert. COMPARISON STUDY: CT brain from 03/20/2021 and previous MR brain from 11/06/2020 TECHNIQUE: Multiplanar multisequence images of the Brain were performed without IV contrast. Diffusi on weighted imaging and ADC mapping was also performed. FINDINGS: Extra-axial space: There is no evidence for a subdural hematoma, There are no extra-axial fluid matthew ections. Ventricles and cisterns: The ventricles are normal in size and configuration. There is no evidence f or midline shift or mass effect. Parenchyma: There is no evidence for an acute hemorrhage or infarct. No acute diffusion abnormalities are noted on diffusion weighted imaging or ADC mapping. There is normal villa-white differentiation. The sulci and gyri appear normal without effacement. The midline structures are unremarkable. The po sterior fossa structures appear normal. There is no evidence for mass lesion. Osseous structures: The paranasal sinuses are well aerated. The mastoid air cells are well aerated. Soft tissues: No focal soft tissue abnormalities are identified. IMPRESSION: No acute intracranial abnormalities. ACT 112: Negative or not required by law. Electronically signed by: Eliot Webber M.D. 03/21/2021 9:43 AM
[2021-03-21] MEDS: FERROUS SULFATE 325 MG TAB PO SCH (11:36)
[2021-03-21] MEDS: levoFLOXacin 750 MG TAB PO SCH (11:36)
--- NOTE | 2021-03-21 12:54 | Neurology Consultation ---
Date of Consultation March 21, 2021 Assessment & Plan (1) Parkinson disease: 1. continue Sinemet 25/100 mg TID 2. PT/OT for discharge needs 3. correct UTI chronc catheter- treat to culture 4. would continue aspirin 81 mg daily 5. optimize HTN, HLD, LDL <70 consider patient age and other disablity 6. fall precautions 7. polio as a child which has caused deformities 8. 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 In this setting she has been admitted for pneumonia but last night developed what sounds like a transient ischemic event involving the right hemisphere with left facial droop yet on imaging today has no evidence for a completed event, there were no other significant abnormalities CT angiography studies of the neck or brain and echocardiogram is negative At this point I do not have sufficient evidence to recommend adding Plavix to her aspirin but will observe her for recurrent events and if they do enlarge then certainly would add another antiplatelet agent In terms of ultimate diagnosis concerning her bradykinetic rigid syndrome I will defer this to Dr. Phyllis Fields who has followed her episodically over the years but has lost contact with her during the COVID-19 epidemic, but I recommend return visit following this hospitalization for reassessment in [address] Landrum will be available for any advice but I do not think he needs to make regular visits to the bedside unless things would change and he can easily be contacted if they do Julio C Fairchild MD History of Present Illness Reason for Consultation: cva Requesting Physician: Logan Steen MD Attending Physician: Logan Steen MD History of Present Illness Chen is a 76 year old female with PMH- Parkinson's, polio as a child, HTN, HLD, history of TIA, CKD stage III, chronic Romeo catheter with recurrent UTIs, wheelchair-bound, multiple lower extremity surgeries, who presents to the ED for evaluation of shortness of breath and wheezing on 03/12/2021. She was admitted on 02/15 through 02/23 for left knee pain, s/p left closed subluxation total knee arthroplasty. She discharged to [facility] and has since returned home. [id number] gives hx and is currently residing with her. Around midnight, the patient started coughing. Also developed a wheeze that progressively got worse throughout the night. Symptoms not relieved with home nebulizer treatment.She was then brought to the [facility] ED for further evaluation.She is chronically ill however reports that she is currently feeling okay. In ED she required 2 L of oxygen via nasal cannula. She was then found to have new facial droop and an MRI CTA head and neck were ordered. which showed no new findings. denies swallowing issues, SOB, abdominal pain, CP, N, V, vision changes, falls Allergies Allergy/AdvReac Type Severity Reaction Status Date / Time bee venom protein (honey bee) Allergy Severe ANAPHYLAXIS Verified 03/12/21 11:42 shellfish derived Allergy Severe anaphylaxis Verified 03/12/21 11:42 Sulfa (Sulfonamide Allergy Severe ANAPHYLAXIS Verified 03/12/21 11:42 Antibiotics) Fish Containing Products Allergy Verified 03/15/21 09:12 fish derived Allergy Verified 03/15/21 09:12 fish oil Allergy Verified 03/15/21 09:12 Home Medications Medication Instructions Recorded Confirmed Type lidocaine 4 % topical patch 1 patch TOPICAL DAILY 12/20/20 03/12/21 History (Aspercreme (lidocaine)) acetaminophen 500 mg tablet 1,000 mg PO BID #60 tab 02/23/21 03/12/21 Rx (Tylenol Extra Strength) albuterol sulfate 2.5 mg/0.5 mL 5 mg INHALATION Q4H PRN #10 ea 02/23/21 03/12/21 Rx solution for nebulization amlodipine 10 mg tablet 10 mg PO DAILY #30 tab 02/23/21 03/12/21 Rx aspirin 81 mg tablet,delayed 81 mg PO DAILY #30 tab 02/23/21 03/12/21 Rx release (Adult Aspirin Regimen) baclofen 10 mg tablet 10 mg PO QID #120 tab 02/23/21 03/12/21 Rx carbidopa 25 mg-levodopa 100 mg 1 tab PO TID #90 tab 02/23/21 03/12/21 Rx tablet diclofenac sodium 1 % topical gel 4 g TOPICAL QID #100 g 02/23/21 03/12/21 Rx docusate sodium 100 mg capsule 100 mg PO DAILY PRN #30 cap 02/23/21 03/12/21 Rx ezetimibe 10 mg tablet 10 mg PO HS #30 tab 02/23/21 03/12/21 Rx ferrous sulfate 325 mg (65 mg 325 mg PO QDL #30 tab 02/23/21 03/12/21 Rx iron) tablet gabapentin 600 mg tablet 900 mg PO TID #135 tab 02/23/21 03/12/21 Rx isosorbide mononitrate 30 mg 30 mg PO QAM #30 tab 02/23/21 03/12/21 Rx tablet,extended release 24 hr lactase 3,000 unit tablet 3,000 unit PO AC #90 tab 02/23/21 03/12/21 Rx lamotrigine 25 mg tablet (Lamictal) 75 mg PO HS #30 tab 02/23/21 03/12/21 Rx melatonin 5 mg capsule 5 mg PO HS #30 cap 02/23/21 03/12/21 Rx omeprazole 20 mg capsule,delayed 20 mg PO DAILY #30 cap 02/23/21 03/12/21 Rx release polyethylene glycol 3350 17 17 g PO DAILY PRN #119 g 02/23/21 03/12/21 Rx gram/dose oral powder (Miralax) potassium chloride 10 mEq 10 meq PO BID #60 tab 02/23/21 03/12/21 Rx tablet,extended release fesoterodine 4 mg tablet,extended 4 mg PO QPM 03/12/21 03/12/21 History release 24 hr (Toviaz) meloxicam 7.5 mg tablet 7.5 mg PO DAILY 03/12/21 03/12/21 History tramadol 50 mg tablet 50 mg PO BID PRN 03/12/21 03/12/21 History Patient History Medical History (Updated 03/16/21 @ 16:55 by Johann Reno MD) Anemia Chronic back pain Chronic knee pain after total replacement of left knee joint Chronic left shoulder pain Chronic pain CKD (chronic kidney disease), stage III CMT (Gazqjop-Qrygk-Ozjyf disease) Degenerative disc disease 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 GERD (gastroesophageal reflux disease) Hearing loss Hearing loss in left ear Hyperlipidemia Hypertension Hypothyroidism Insomnia Lactose intolerance Migraine Nausea and vomiting after administration of anesthetic agent Obesity Osteoarthritis Palliative care encounter Parkinson disease Renal lesion Repeated falls Spinal stenosis Transient cerebral ischemia Trigeminal neuralgia Unspecified abnormalities of gait and mobility Weakness Surgical History History of appendectomy History of bilateral cataract extraction History of bilateral tubal ligation History of bladder surgery botox injections into bladder History of bladder suspension procedure x2 History of brain surgery "microvascular decompression" X2 @ [facility] 2010? History of colonoscopy with polypectomy History of dilatation and curettage History of esophagogastroduodenoscopy (EGD) History of fusion of cervical spine C3-C6; normal ROM History of left breast biopsy x2--benign History of lumbar discectomy L4-L5 History of mandibular surgery x2 2007 after accident--1st time wired shut 2nd sx metal jaw put in---normal ROM History of open reduction and internal fixation (ORIF) procedure right ankle History of partial hysterectomy History of shoulder surgery x4 on left History of surgery brain stimulator removed 1 yr after placed History of surgery on arm right x2 d/t dog bite History of surgery on right wrist fx repair, no hardware History of tooth extraction History of total left knee replacement (TKR) History of total right knee replacement (TKR) History of wisdom tooth extraction Status post correction of deviated nasal septum Status post deep brain stimulator placement 2010 @ [facility] Family History Son Family history of reaction to anesthesia nausea/vomiting Family history of diabetes mellitus Son Family history of reaction to anesthesia nausea/vomiting Son Family history of reaction to anesthesia nausea/vomiting Father Family history of diabetes mellitus Mother Family history of diabetes mellitus Family hx of colon cancer Grandmother (Paternal) Family history of diabetes mellitus Social History Smoking Status: Never smoker Second Hand Exposure: No; Do You Dip or Chew Tobacco: No; Hx Alcohol Use: No Hx Substance Use: No Preferred Language: Turkish Communication Ability: Effective Visual Impairment: No Limitations Hearing Ability: Normal Private Banker Required: No Beliefs That Will Affect Care: None marital status: Current Living Situation: Family Current Living Situation Comment: Pt temporarily with Son and [id number]. current occupational status: retired Other Information That Helps Us Care for You: No Feels Safe at Home: Yes Safety Concerns: Feels Safe At This Time Assistive Devices: Brace/Splint/Immobilizer and Special Shoe Assistive Devices Comment: Pt does not use oxygen at baseline. Review of Systems Review of Systems: All systems reviewed & are unremarkable except as noted in HPI & below Physical Exam Physical Exam: Physical Exam: Constitutional: appearance nourished, ill appearing Ears, Nose, Mouth and Throat: mucous membranes moist, no injection and skin normal, eyes normal Cardiovascular: normal S-1 and S-2 and regular rate and rhythm Respiratory: clear to auscultation (CTA) and no rales, ronchi or wheeze Musculoskeletal: no peripheral edema braces on feet and wrapped Skin: no stigmata of neurocutaneous disease noted and normal and intact Eyes: extraocular muscles intact (EOMI) and pupils equal, round and reactive to light (PERRL) NEUROLOGIC EXAMINATION: Mental status: Alert and interactive Oriented to person Speech broken speech with words, no receptive aphasia Cranial Nerves slightly flattening of Nasio labial fold on left Reflexes: Deep tendon reflexes were symmetrical and graded 2/5 decreased throughout Sensory: intact to cool and light touch Coordination: finger to nose Gait/Stance: Posture normal. did not assess gait Motor: Negative for pronator drift of out stretched arms with eyes closed. Strength: hand tobacco blender bilaterally 4/5, hip flex left 0/5, right 3/5 Results & Data ([facility]) Vital Signs (Past 12 Hours) Vital Signs Temp Pulse Pulse Pulse Resp BP BP 03/21/21 10:51 36.8 C 61 21 03/21/21 07:21 36.3 C L 61 18 140/67 03/21/21 04:51 36.6 C 57 L 16 122/59 L 03/21/21 04:30 36.6 C 56 L 15 122/59 L 03/21/21 02:00 72 20 150/79 H 03/21/21 01:11 75 22 BP Pulse Ox 03/21/21 10:51 129/73 95 03/21/21 07:21 94 03/21/21 04:51 95 03/21/21 04:30 94 03/21/21 02:00 98 03/21/21 01:11 153/81 H 97 Laboratory Results Abnormal lab results 03/20/21 03/20/21 03/20/21 Range/Units 23:22 23:22 23:22 Hgb 11.7 L (12.0-16.0) g/dL Hct 36.8 L (37-47) % MCHC 31.8 L (32-36) g/dL Stone # (Auto) 0.60 H (0.11-0.59) K/uL Immature Gran # (Auto) 0.03 H (0.00-0.02) K/uL APTT 33.0 H (21.0-31.0) Seconds Chloride 109 H (98-107) mmol/L Magnesium 1.7 L (1.8-2.4) mg/dl AST 9 L (15-37) U/L ALT 8 L (12-78) U/L Albumin 3.0 L (3.4-5.0) gm/dl Diagnostic Findings MRI brain-No acute intracranial abnormalities. CTA neck-Unremarkable CTA of the neck. CTA brain-Essentially negative CT angiogram of the brain with contrast. There is no significant interval change.
--- NOTE | 2021-03-21 14:36 | Palliative Care Progress Note ---
Date of Service March 21, 2021 Assessment & Plan (1) Palliative care encounter: Plan: Patient experienced a change in status overnight and became unresponsive, which has subsided. She also had some right facial droop. A head CT was performed and a stroke was suspected, but results appear to be unremarkable. She was upgraded to PCU status. When I evaluated the patient, she was sitting upright in her bed, able to answer simple questions and was tolerating a diet independently. Ultimately, family would like to hold a family meeting. After discussion with case management, I suggested we should wait to hold a general goals of care meeting until all information is held at hand, including a neurology consult (pending) and MRI results. Code status, of course could be established and overall general goals are necessary to discuss. Palliative will follow. (2) Weakness: (3) Obesity: (4) Hypoxia: Admission and Anticipated Discharge Date Admission Date: March 12, 2021 Subjective Patient Review of Systems Review of Systems: Serena System Assessment Scale: Pain: 2/3 Nausea: 0/3 Tiredness: 1/3 Lack of Appetite: 1/3 SOB: 0/3 Palliative Performance Scale: 30% Physical Exam Constitutional: comfortable ENMT: Mouth: + dry oral mucous membranes Respiratory: normal respiratory effort Auscultation: + diminished lung sounds Cardiovascular: Rate/Rhythm: regular rate and regular rhythm Heart Sounds: normal S1 and normal S2 Extremities: normal capillary refill Gastrointestinal (Abdomen): Inspection/Auscultation: abdomen normal to inspection Skin: + pallor Psychiatric: Orientation: alert, oriented x 3 and cooperative Insight: + limited insight Judgement: + limited judgement Results & Data ([facility]) Vital Signs (Past 12 Hours) Vital Signs Temp Pulse Pulse Pulse Resp BP BP 03/21/21 10:51 36.8 C 61 21 03/21/21 07:21 36.3 C L 61 18 140/67 03/21/21 04:51 36.6 C 57 L 16 122/59 L 03/21/21 04:30 36.6 C 56 L 15 122/59 L BP Pulse Ox 03/21/21 10:51 129/73 95 03/21/21 07:21 94 03/21/21 04:51 95 03/21/21 04:30 94 PG Care Time/CCT Total # of Minutes Spent Total Time Spent with Patient: Total time spent is greater than 50% in coordination of care (as documented) at patient's floor/unit and/or counseling patient: 45 minutes Coding Level of Care Code 40742 Subseq Hosp Care Lvl 3 Diagnoses Palliative care encounter Z51.5 Weakness R53.1 Obesity E66.9 Hypoxia R09.02 Time Spent (min) 45
[2021-03-21] MEDS: ACETAMINOPHEN 325 MG TAB PO PRN ×2 (17:18→21:54)
[2021-03-21] MEDS: lamoTRIgine 25 MG TAB PO SCH (21:57)
[2021-03-21] MEDS: ENOXAPARIN INJ 40 MG/0.4 ML SYR SQ SCH (21:59)
[2021-03-21] MEDS: EZETIMIBE 10 MG TABLET PO SCH (22:00)
--- NOTE | 2021-03-21 23:10 | Hospitalist Progress Note ---
Date of Service March 21, 2021 Assessment & Plan (1) Pneumonia: (2) Catheter-associated urinary tract infection: Plan: Pneumonia Has bibasilar infiltration more on the right could be secondary to aspiration versus HCAP Initial lactic acid 3.2---> 1.9, no other signs of sepsis. MRSA screen negative Zosyn 03/12 --> change to Augmentin 03/14 -->levaquin 03/15 d/t E.cloacae in UCx -->stop date 03/19 No increasing white count and no fever and no chills Cough and shortness of breath have been improving, patient on room air 03/12 blood cultureno growth so far, follow-up final results. Palliative care on board for goals of care as per request from the [id number] - hospice/palliative was discussed as possible option - Plan for family meeting on Friday Has had speech evaluation Recommended aspiration precaution during feeding If the condition persist will need to have a formal barium swallow down the line Sroke Alert Patient was a stroke alert overnight Likely TIA - involving the right hemisphere with left facial droop yet on imaging has no evidence for a completed event -there were no other significant abnormalities CT angiography studies of the neck or brain and echocardiogram is negative Brain imaging unremarkable Neurology consulted and evaluated patient - At this point do not have sufficient evidence to recommend adding Plavix to her aspirin but will observe her for recurrent events and if they do enlarge then certainly would add another antiplatelet agent Recommend to continue aspirin 81 mg daily, and 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 Fields Hypoxia Pulm Edema - mild Left Plueal Effusion - Small Patient presenting from home with reports of shortness of breath associated with cough and wheezing October 2019 ECHO was a poor qualitygrossly normal LV function. Patient requiring on 2 L nasal cannula oxygen at presentation and on and off. Likely secondary to pneumonia and pulmonary edema 03/14 CXR: Mild pulmonary edema. Possible small left pleural effusion. 03/14 IV dose of Lasix, use Lasix as needed, strict I's and O's. Continue to monitor pleural effusion and pulmonary edema. Use supplemental oxygen as needed and nebulization as needed. --> Patient is improved clinically. 03/12 Zosyn to Augmentin 03/14 --->levaquin 03/15, stop date 03/19 Abnormal Left ankle XR Patient complaining of multiple joint pain, more on the left leg 03/15 x-ray left ankle: A 1.8 cm linear ossific density posterior to the talus may represent an avulsion fracture from the dorsal calcaneus. Clinical correlation will be essential. Orthopedic consulted for left calcaneal superior posterior avulsion fracture status post fall: High tide walking boot removed, replaced with a dorsiflexion splint with a negative relief under the left heel and lambs wool padding to provide essentially neutral support for neutral dorsiflexion of the left ankle and heel and foot. Orthopedic recommending may use the walking boot for transfers or ambulating and wheelchair as necessary. Follow-up with outpatient orthopedics. Dr. Crain, [facility] [place] [facility]: Chronic indwelling Romeo catheter History of recurrent UTIs. Patient overdue for follow-up with urology---> Alexandrea BETANCOURT to arrange for outpatient follow-up for management of her chronic Romeo. UA was suggestive of infection, 03/12 urine culturepansensitive E. coli and GNB, f/u final result. Patient completed Levaquin CMT (Ifejala-Evcsr-Fitlu disease): S/p multiple lower extremity procedures, most recently s/p left knee closed reduction total knee arthroplasty subluxation on 02/16/2021 - patient is to remain nonweightbearing of the left lower extremity and limited weightbearing on the right lower extremity She has been almost bedbound Parkinson disease: Continue carbidopa-levodopa No acute tremor she is slow in response and activities Chronic pain: Continue home regimen She has had recent dislocation of the left knee which is repositioned during her last hospital stay and she is not having any acute symptoms from that She was evaluated by pain therapist during her recent admission and no further recommendations were given DVT prophylaxis: SQ Lovenox Disposition: questionable at this time, CM and palliative medicine following. family meeting on Friday Admission and Anticipated Discharge Date Admission Date: March 12, 2021 Subjective Pt was stroke alert overnight brain imaging unremarkable Neurology consulted - recommend to continue ASA 81 and outpt follow up Currently pt is laying in bed in NAD She is able to answer simple questions slowly but appropriately Currently has no complaints Denies chest pain, shortness of breath, headache, abd. amaro, n/v Review of Systems Review of Systems: All systems reviewed & are unremarkable except as noted in Subjective Physical Exam Physical Exam: Gen: WD/WN, F, chronically ill appearing, NAD, A&O x3 HEENT: Normocephalic, atraumatic, conjunctivae moist, sclerae anicteric, mucous membranes moist. Lung: Clear to Auscultation bilaterally, no wheezes/rales/rhonchi Heart: Regular rate, regular rhythm, no murmurs, rubs, or gallops Abdomen: Soft, NT, ND +BS x 4 Extremities: b/l cam boots to RLE, leslie bandage to LLE foot, hand contractures left sided weakness (from hx of polio) Neuro: Alert oriented answering simple questions appropriately, speech is slow. Slightly flattening of Nasio labial fold on left, hand contractures left sided weakness (from hx of polio) Skin: Warm, no rash, negative turgor. : +Romeo cath Results & Data Results & Data ([facility]) Vital Signs (Past 12 Hours) Vital Signs Temp Pulse Resp BP Pulse Ox 03/21/21 15:22 36.6 C 72 22 161/84 H 95 Laboratory Results 03/21/21 03/21/21 03/20/21 Range/Units 05:50 05:44 23:22 WBC (4.8-10.8) K/uL RBC (4.2-5.4) M/uL Hgb (12.0-16.0) g/dL Hct (37-47) % MCV (80-100) fL MCH (25-34) pg MCHC (32-36) g/dL RDW Std Deviation (36.4-46.3) fL RDW Coeff of Tsering (11.5-14.5) % Plt Count (130-400) K/uL MPV (7.4-10.4) fL Immature Gran % (Auto) % Neut % (Auto) % Lymph % (Auto) % Kent % (Auto) % Eos % (Auto) % Baso % (Auto) % Neut # (Auto) (1.4-6.5) K/uL Lymph # (Auto) (1.2-3.4) K/uL Kent # (Auto) (0.11-0.59) K/uL Eos # (Auto) (0-0.5) K/uL Baso # (Auto) (0-0.2) K/uL Immature Gran # (Auto) (0.00-0.02) K/uL APTT (21.0-31.0) Seconds PTT Ratio Sodium 141 (136-145) mmol/L Potassium 3.7 (3.5-5.1) mmol/L Chloride 109 H (98-107) mmol/L Carbon Dioxide 24 (21-32) mmol/L Anion Gap 8.0 (3-11) BUN 12 (7-18) mg/dl Creatinine 0.65 (0.6-1.2) mg/dl Est Cr Clr Drug Dosing 77.3 ml/min Est GFR ( Amer) 100.7 ml/min Est GFR (Non-Af Amer) 86.8 ml/min BUN/Creatinine Ratio 18.8 (10-20) Glucose 93 (70-99) mg/dl POC Glucose (70-99) mg/dl Calcium 9.1 (8.5-10.1) mg/dl Magnesium 1.7 L (1.8-2.4) mg/dl Total Bilirubin 0.3 (0.2-1) mg/dl AST 9 L (15-37) U/L ALT 8 L (12-78) U/L Alkaline Phosphatase 79 (45-117) U/L Troponin I < 0.015 < 0.015 (0-0.045) ng/ml Total Protein 6.4 (6.4-8.2) gm/dl Albumin 3.0 L (3.4-5.0) gm/dl Globulin 3.4 (2.5-4.0) gm/dl Albumin/Globulin Ratio 0.9 (0.9-2) Nasal Screen MRSA (PCR) Negative (Negative) 03/20/21 03/20/21 03/20/21 Range/Units 23:22 23:22 23:16 WBC 7.29 (4.8-10.8) K/uL RBC 4.20 (4.2-5.4) M/uL Hgb 11.7 L (12.0-16.0) g/dL Hct 36.8 L (37-47) % MCV 87.6 (80-100) fL MCH 27.9 (25-34) pg MCHC 31.8 L (32-36) g/dL RDW Std Deviation 45.2 (36.4-46.3) fL RDW Coeff of Tsering 14.2 (11.5-14.5) % Plt Count 295 (130-400) K/uL MPV 9.7 (7.4-10.4) fL Immature Gran % (Auto) 0.4 % Neut % (Auto) 54.6 % Lymph % (Auto) 31.6 % Kent % (Auto) 8.2 % Eos % (Auto) 4.9 % Baso % (Auto) 0.3 % Neut # (Auto) 3.98 (1.4-6.5) K/uL Lymph # (Auto) 2.30 (1.2-3.4) K/uL Kent # (Auto) 0.60 H (0.11-0.59) K/uL Eos # (Auto) 0.36 (0-0.5) K/uL Baso # (Auto) 0.02 (0-0.2) K/uL Immature Gran # (Auto) 0.03 H (0.00-0.02) K/uL APTT 33.0 H (21.0-31.0) Seconds PTT Ratio 1.3 Sodium (136-145) mmol/L Potassium (3.5-5.1) mmol/L Chloride (98-107) mmol/L Carbon Dioxide (21-32) mmol/L Anion Gap (3-11) BUN (7-18) mg/dl Creatinine (0.6-1.2) mg/dl Est Cr Clr Drug Dosing ml/min Est GFR ( Amer) ml/min Est GFR (Non-Af Amer) ml/min BUN/Creatinine Ratio (10-20) Glucose (70-99) mg/dl POC Glucose 89 (70-99) mg/dl Calcium (8.5-10.1) mg/dl Magnesium (1.8-2.4) mg/dl Total Bilirubin (0.2-1) mg/dl AST (15-37) U/L ALT (12-78) U/L Alkaline Phosphatase (45-117) U/L Troponin I (0-0.045) ng/ml Total Protein (6.4-8.2) gm/dl Albumin (3.4-5.0) gm/dl Globulin (2.5-4.0) gm/dl Albumin/Globulin Ratio (0.9-2) Nasal Screen MRSA (PCR) (Negative) Medications Administered Current Inpatient Medications Acetaminophen (Acetaminophen 325 Mg Tab) 650 mg PO Q4H PRN PRN Reason: pain/fever Stop: 04/11/21 16:59 Last Admin: 03/21/21 21:54 Dose: 650 mg Documented by: Albuterol (Albuterol 0.5% Neb Soln 2.5 Mg/0.5 Ml Vial) 2.5 mg NEB Q6R PRN PRN Reason: wheezing, SOB Stop: 04/13/21 18:59 Last Admin: 03/19/21 09:50 Dose: 2.5 mg Documented by: Albuterol (Albut/Ipratrop 3mg/0.5mg Neb 3 Ml Vial) 3 ml NEB Q4R PRN PRN Reason: Shortness Of Breath Or Wheezing Stop: 04/11/21 18:59 Last Admin: 03/20/21 13:43 Dose: 3 ml Documented by: Aspirin (Aspirin 81 Mg Ectab) 81 mg PO DAILY [facility] Stop: 04/12/21 08:59 Last Admin: 03/21/21 08:02 Dose: 81 mg Documented by: Carbidopa/Levodopa (Carbidopa/Levodopa 25/100mg Tab) 1 tab PO TID [facility] Stop: 04/11/21 20:59 Last Admin: 03/21/21 22:00 Dose: 1 tab Documented by: Diclofenac Sodium (Diclofenac Sod 1% Gel 100 Gm Tube) 2 gm EXT Q6 [facility] Stop: 04/13/21 15:29 Last Admin: 03/22/21 07:06 Dose: Not Given Documented by: Docusate Sodium (Docusate Sodium 100 Mg Cap) 100 mg PO DAILY PRN PRN Reason: Constipation Stop: 04/11/21 16:59 Last Admin: 03/18/21 08:07 Dose: 100 mg Documented by: Ezetimibe (Ezetimibe 10 Mg Tablet) 10 mg PO HS [facility] Stop: 04/11/21 20:59 Last Admin: 03/21/21 22:00 Dose: 10 mg Documented by: Enoxaparin Sodium (Enoxaparin Inj 40 Mg/0.4 Ml Syr) 40 mg SQ Q24H [facility] Stop: 04/11/21 16:59 Last Admin: 03/21/21 21:59 Dose: 40 mg Documented by: Ferrous Sulfate (Ferrous Sulfate 325 Mg Tab) 325 mg PO DAILY@1100 [facility] Stop: 04/12/21 10:59 Last Admin: 03/21/21 11:36 Dose: 325 mg Documented by: Lactase (Lactase 3000 Unit Tab) 3,000 units PO AC [facility] Stop: 04/11/21 16:59 Last Admin: 03/21/21 17:18 Dose: 3,000 units Documented by: Lactobacillus Acidoph/Casei/Rhamnos (Advanced Probiotic 1250 Mg Capsule) 2 cap PO DAILY [facility] Stop: 04/14/21 14:29 Last Admin: 03/21/21 08:02 Dose: 2 cap Documented by: Lamotrigine (Lamotrigine 25 Mg Tab) 75 mg PO [facility] Stop: 04/11/21 20:59 Last Admin: 03/21/21 21:57 Dose: 75 mg Documented by: Levofloxacin (Levofloxacin 750 Mg Tab) 750 mg PO DAILY@1100 [facility]; Protocol Stop: 03/22/21 15:59 Last Admin: 03/21/21 11:36 Dose: 750 mg Documented by: Lidocaine (Lidocaine 5% 1 Patch) 1 patch TD DAILY [facility] Stop: 04/12/21 08:59 Last Admin: 03/21/21 08:02 Dose: 1 patch Documented by: Meloxicam (Meloxicam 7.5 Mg Tab) 7.5 mg PO DAILY [facility] Stop: 04/12/21 08:59 Last Admin: 03/20/21 08:46 Dose: 7.5 mg Documented by: Miscellaneous (Toviaz-Order Awaiting Action) 1 ea N/A QS [facility] Stop: 04/12/21 00:00 Last Admin: 03/22/21 01:15 Dose: Not Given Documented by: Miscellaneous (Remove Lidoderm Patch) 1 ea N/A HS [facility] Stop: 04/11/21 20:59 Last Admin: 03/21/21 22:03 Dose: 1 ea Documented by: Miscellaneous Information (Pharmacist Discharge Med Rec Consult) 1 ea N/A UD PRN PRN Reason: Consult Stop: 04/20/21 00:49 Pantoprazole Sodium (Pantoprazole 40 Mg Tab) 40 mg PO DAILY [facility] Stop: 04/12/21 08:59 Last Admin: 03/21/21 08:03 Dose: 40 mg Documented by: Polyethylene Glycol (Polyethylene (Miralax) 17 Gm Pack) 17 gm PO DAILY PRN PRN Reason: Constipation Stop: 04/11/21 16:59 Last Admin: 03/18/21 08:07 Dose: 17 gm Documented by: Potassium Chloride (Potassium Chloride 10 Meq Tabcr) 10 meq PO BID [facility] Stop: 04/11/21 20:59 Last Admin: 03/21/21 22:02 Dose: 10 meq Documented by: Tramadol HCl (Tramadol Hcl 50 Mg Tablet) 50 mg PO BID PRN PRN Reason: Pain Stop: 04/11/21 16:59 Last Admin: 03/21/21 08:00 Dose: 50 mg Documented by:
[2021-03-21] MEDS ORDERED: ZOLPIDEM TARTRATE 5 MG TAB PO STA (23:26)
[2021-03-22] MEDS: DICLOFENAC SOD 1% GEL 100 GM TUBE EXT SCH ×4 (01:15→17:13)
[2021-03-22 06:05] LABS: Hematocrit (blood only) 34.8 % (37-47); Hemoglobin 10.8 g/dL (12.0-16.0); Mean Corpuscular Hemoglobin 27.1 pg (25-34); Mean Corpuscular Volume 87.4 fL (80-100); Platelet Count 256 K/uL (130-400); RDW Coefficient of Variation 14.3 % (11.5-14.5); RDW Standard Deviation 46.2 fL (36.4-46.3); Red Blood Count 3.98 M/uL (4.2-5.4); White Blood Count 5.76 K/uL (4.8-10.8)
--- NOTE | 2021-03-22 06:23 | Electrocardiogram Report ---
Test Reason : Blood Pressure : / mmHG Vent. Rate : 076 BPM Atrial Rate : 076 BPM P-R Int : 196 ms QRS Dur : 068 ms QT Int : 362 ms P-R-T Axes : -15 -27 -63 degrees QTc Int : 407 ms Poor data quality, interpretation may be adversely affected Normal sinus rhythm Poor R wave progression, consider anterior WA vs. lead placement vs. LVH Abnormal ECG When compared with ECG of 12-MAR-2021 10:38, Premature ventricular complexes are no longer Present Confirmed by Saw Cotto ([id number]) on 03/22/2021 6:23:17 AM Referred By: REFERRED SELF Confirmed By:Saw Ctoto
[2021-03-22 06:24] LABS: BUN Creatinine Ratio 10.7 (10-20); Calcium 9.2 mg/dl (8.5-10.1); Creatinine Clr Calc Pharmacy 72.2 ml/min; Est GFR (African American) 99.2 ml/min; Est GFR (Non-African American) 85.6 ml/min; Magnesium 1.9 mg/dl (1.8-2.4); Potassium 3.6 mmol/L (3.5-5.1)
[2021-03-22 06:27] LABS: Phosphorus 3.9 mg/dl (2.5-4.9)
[2021-03-22] MEDS: LACTASE 3000 UNIT TAB PO SCH ×3 (07:45→17:12)
--- NOTE | 2021-03-22 10:14 | Hospitalist Progress Note ---
Date of Service March 22, 2021 Assessment & Plan (1) Pneumonia: (2) Catheter-associated urinary tract infection: Plan: Pneumonia Has bibasilar infiltration more on the right could be secondary to aspiration versus HCAP Initial lactic acid 3.2---> 1.9, no other signs of sepsis. MRSA screen negative Zosyn 03/12 --> change to Augmentin 03/14 -->levaquin 03/15 d/t E.cloacae in UCx -->stop date 03/19 No increasing white count and no fever and no chills Cough and shortness of breath have been improving, patient on room air 03/12 blood cultureno growth so far, follow-up final results. Palliative care on board for goals of care as per request from the [id number] - hospice/palliative was discussed as possible option - Plan for family meeting on Friday Has had speech evaluation Recommended aspiration precaution during feeding If the condition persist will need to have a formal barium swallow down the line Sroke Alert Patient was a stroke alert overnight (03/20-03/21) Likely TIA - involving the right hemisphere with left facial droop yet on imaging has no evidence for a completed event -there were no other significant abnormalities CT angiography studies of the neck or brain and echocardiogram is negative Brain imaging unremarkable Neurology consulted and evaluated patient - At this point do not have sufficient evidence to recommend adding Plavix to her aspirin but will observe her for recurrent events and if they do enlarge then certainly would add another antiplatelet agent Recommend to continue aspirin 81 mg daily, and 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 Fields Hypoxia Pulm Edema - mild Left Plueal Effusion - Small Patient presenting from home with reports of shortness of breath associated with cough and wheezing October 2019 ECHO was a poor qualitygrossly normal LV function. Patient requiring on 2 L nasal cannula oxygen at presentation and on and off. Likely secondary to pneumonia and pulmonary edema 03/14 CXR: Mild pulmonary edema. Possible small left pleural effusion. 03/14 IV dose of Lasix, use Lasix as needed, strict I's and O's. Continue to monitor pleural effusion and pulmonary edema. Use supplemental oxygen as needed and nebulization as needed. --> Patient is improved clinically. 03/12 Zosyn to Augmentin 03/14 --->levaquin 03/15, stop date 03/19 Abnormal Left ankle XR Patient complaining of multiple joint pain, more on the left leg 03/15 x-ray left ankle: A 1.8 cm linear ossific density posterior to the talus may represent an avulsion fracture from the dorsal calcaneus. Clinical correlation will be essential. Orthopedic consulted for left calcaneal superior posterior avulsion fracture status post fall: High tide walking boot removed, replaced with a dorsiflexion splint with a negative relief under the left heel and lambs wool padding to provide essentially neutral support for neutral dorsiflexion of the left ankle and heel and foot. Orthopedic recommending may use the walking boot for transfers or ambulating and wheelchair as necessary. Follow-up with outpatient orthopedics. Dr. Crain, [facility] [place]: Chronic indwelling Romeo catheter History of recurrent UTIs. Patient overdue for follow-up with urology---> Alexandrea BETANCOURT to arrange for outpatient follow-up for management of her chronic Romeo. UA was suggestive of infection, 03/12 urine culturepansensitive E. coli and GNB, f/u final result. Patient completed [facility] CMT (Gkjebbf-Iispl-Budwb disease): S/p multiple lower extremity procedures, most recently s/p left knee closed reduction total knee arthroplasty subluxation on 02/16/2021 - patient is to remain nonweightbearing of the left lower extremity and limited weightbearing on the right lower extremity She has been almost bedbound Parkinson disease: Continue carbidopa-levodopa No acute tremor she is slow in response and activities Chronic pain: Continue home regimen She has had recent dislocation of the left knee which is repositioned during her last hospital stay and she is not having any acute symptoms from that She was evaluated by pain therapist during her recent admission and no further recommendations were given DVT prophylaxis: SQ Lovenox Disposition: questionable at this time, CM and palliative medicine following. family meeting on Friday Admission and Anticipated Discharge Date Admission Date: March 12, 2021 Subjective Pt was stroke alert 2 nights ago brain imaging unremarkable Neurology consulted - recommend to continue ASA 81 and outpt follow up Currently pt is laying in bed in NAD She is able to answer simple questions slowly but appropriately Currently has no complaints Denies chest pain, shortness of breath, headache, abd. amaro, n/v Review of Systems Review of Systems: All systems reviewed & are unremarkable except as noted in Subjective Physical Exam Physical Exam: Gen: WD/WN, F, chronically ill appearing, NAD, A&O x3 HEENT: Normocephalic, atraumatic, conjunctivae moist, sclerae anicteric, mucous membranes moist. Lung: Clear to Auscultation bilaterally, no wheezes/rales/rhonchi Heart: Regular rate, regular rhythm, no murmurs, rubs, or gallops Abdomen: Soft, NT, ND +BS x 4 Extremities: b/l cam boots to RLE, leslie bandage to LLE foot, hand contractures left sided weakness (from hx of polio) Neuro: Alert oriented answering simple questions appropriately, speech is slow. Slightly flattening of Nasio labial fold on left, hand contractures left sided weakness (from hx of polio) Skin: Warm, no rash, negative turgor. : +Romeo cath Results & Data Results & Data ([facility]) Vital Signs (Past 12 Hours) Vital Signs Temp Pulse Resp BP Pulse Ox 03/22/21 04:00 36.6 C 54 L 16 148/65 H 96 03/22/21 01:27 36.6 C 64 21 146/83 H 93 Laboratory Results 03/22/21 03/22/21 Range/Units 05:04 05:04 WBC 5.76 (4.8-10.8) K/uL RBC 3.98 L (4.2-5.4) M/uL Hgb 10.8 L (12.0-16.0) g/dL Hct 34.8 L (37-47) % MCV 87.4 (80-100) fL MCH 27.1 (25-34) pg MCHC 31.0 L (32-36) g/dL RDW Std Deviation 46.2 (36.4-46.3) fL RDW Coeff of Tsering 14.3 (11.5-14.5) % Plt Count 256 (130-400) K/uL MPV 10.0 (7.4-10.4) fL Sodium 140 (136-145) mmol/L Potassium 3.6 (3.5-5.1) mmol/L Chloride 109 H (98-107) mmol/L Carbon Dioxide 26 (21-32) mmol/L Anion Gap 5.0 (3-11) BUN 7 D (7-18) mg/dl Creatinine 0.68 (0.6-1.2) mg/dl Est Cr Clr Drug Dosing 72.2 ml/min Est GFR ( Amer) 99.2 ml/min Est GFR (Non-Af Amer) 85.6 ml/min BUN/Creatinine Ratio 10.7 (10-20) Glucose 84 (70-99) mg/dl Calcium 9.2 (8.5-10.1) mg/dl Phosphorus 3.9 (2.5-4.9) mg/dl Magnesium 1.9 (1.8-2.4) mg/dl Triglycerides 141 (0-150) mg/dl Cholesterol 176 (0-200) mg/dl LDL Cholesterol, Calc 107 mg/dl VLDL Cholesterol, Calc 28 mg/dl HDL Cholesterol 41 mg/dl Cholesterol/HDL Ratio 4 Medications Administered Current Inpatient Medications Acetaminophen (Acetaminophen 325 Mg Tab) 650 mg PO Q4H PRN PRN Reason: pain/fever Stop: 04/11/21 16:59 Last Admin: 03/21/21 21:54 Dose: 650 mg Documented by: Albuterol (Albuterol 0.5% Neb Soln 2.5 Mg/0.5 Ml Vial) 2.5 mg NEB Q6R PRN PRN Reason: wheezing, SOB Stop: 04/13/21 18:59 Last Admin: 03/19/21 09:50 Dose: 2.5 mg Documented by: Albuterol (Albut/Ipratrop 3mg/0.5mg Neb 3 Ml Vial) 3 ml NEB Q4R PRN PRN Reason: Shortness Of Breath Or Wheezing Stop: 04/11/21 18:59 Last Admin: 03/20/21 13:43 Dose: 3 ml Documented by: Aspirin (Aspirin 81 Mg Ectab) 81 mg PO DAILY [facility] Stop: 04/12/21 08:59 Last Admin: 03/21/21 08:02 Dose: 81 mg Documented by: Carbidopa/Levodopa (Carbidopa/Levodopa 25/100mg Tab) 1 tab PO TID [facility] Stop: 04/11/21 20:59 Last Admin: 03/21/21 22:00 Dose: 1 tab Documented by: Diclofenac Sodium (Diclofenac Sod 1% Gel 100 Gm Tube) 2 gm EXT Q6 [facility] Stop: 04/13/21 15:29 Last Admin: 03/22/21 07:06 Dose: Not Given Documented by: Docusate Sodium (Docusate Sodium 100 Mg Cap) 100 mg PO DAILY PRN PRN Reason: Constipation Stop: 04/11/21 16:59 Last Admin: 03/18/21 08:07 Dose: 100 mg Documented by: Ezetimibe (Ezetimibe 10 Mg Tablet) 10 mg PO [facility] Stop: 04/11/21 20:59 Last Admin: 03/21/21 22:00 Dose: 10 mg Documented by: Enoxaparin Sodium (Enoxaparin Inj 40 Mg/0.4 Ml Syr) 40 mg SQ Q24H [facility] Stop: 04/11/21 16:59 Last Admin: 03/21/21 21:59 Dose: 40 mg Documented by: Ferrous Sulfate (Ferrous Sulfate 325 Mg Tab) 325 mg PO DAILY@1100 [facility] Stop: 04/12/21 10:59 Last Admin: 03/21/21 11:36 Dose: 325 mg Documented by: Lactase (Lactase 3000 Unit Tab) 3,000 units PO AC [facility] Stop: 04/11/21 16:59 Last Admin: 03/21/21 17:18 Dose: 3,000 units Documented by: Lactobacillus Acidoph/Casei/Rhamnos (Advanced Probiotic 1250 Mg Capsule) 2 cap PO DAILY [facility] Stop: 04/14/21 14:29 Last Admin: 03/21/21 08:02 Dose: 2 cap Documented by: Lamotrigine (Lamotrigine 25 Mg Tab) 75 mg PO [facility] Stop: 04/11/21 20:59 Last Admin: 03/21/21 21:57 Dose: 75 mg Documented by: Levofloxacin (Levofloxacin 750 Mg Tab) 750 mg PO DAILY@1100 [facility]; Protocol Stop: 03/22/21 15:59 Last Admin: 03/21/21 11:36 Dose: 750 mg Documented by: Lidocaine (Lidocaine 5% 1 Patch) 1 patch TD DAILY [facility] Stop: 04/12/21 08:59 Last Admin: 03/21/21 08:02 Dose: 1 patch Documented by: Meloxicam (Meloxicam 7.5 Mg Tab) 7.5 mg PO DAILY [facility] Stop: 04/12/21 08:59 Last Admin: 03/20/21 08:46 Dose: 7.5 mg Documented by: Miscellaneous (Toviaz-Order Awaiting Action) 1 ea N/A QS [facility] Stop: 04/12/21 00:00 Last Admin: 03/22/21 10:03 Dose: Not Given Documented by: Miscellaneous (Remove Lidoderm Patch) 1 ea N/A HS [facility] Stop: 04/11/21 20:59 Last Admin: 03/21/21 22:03 Dose: 1 ea Documented by: Miscellaneous Information (Pharmacist Discharge Med Rec Consult) 1 ea N/A UD PRN PRN Reason: Consult Stop: 04/20/21 00:49 Pantoprazole Sodium (Pantoprazole 40 Mg Tab) 40 mg PO DAILY [facility] Stop: 04/12/21 08:59 Last Admin: 03/21/21 08:03 Dose: 40 mg Documented by: Polyethylene Glycol (Polyethylene (Miralax) 17 Gm Pack) 17 gm PO DAILY PRN PRN Reason: Constipation Stop: 04/11/21 16:59 Last Admin: 03/18/21 08:07 Dose: 17 gm Documented by: Potassium Chloride (Potassium Chloride 10 Meq Tabcr) 10 meq PO BID [facility] Stop: 04/11/21 20:59 Last Admin: 03/21/21 22:02 Dose: 10 meq Documented by: Tramadol HCl (Tramadol Hcl 50 Mg Tablet) 50 mg PO BID PRN PRN Reason: Pain Stop: 04/11/21 16:59 Last Admin: 03/21/21 08:00 Dose: 50 mg Documented by:
[2021-03-22] MEDS: ADVANCED PROBIOTIC 1250 MG CAPSULE PO SCH (11:45)
[2021-03-22] MEDS: levoFLOXacin 750 MG TAB PO SCH (11:45)
[2021-03-22] MEDS: PANTOprazole 40 MG TAB PO SCH (11:45)
[2021-03-22] MEDS: LIDOCAINE 5% 1 PATCH TD SCH (11:46)
[2021-03-22] MEDS: CARBIDOPA/LEVODOPA 25/100MG TAB PO SCH ×3 (11:46→20:58)
[2021-03-22] MEDS: FERROUS SULFATE 325 MG TAB PO SCH (11:46)
[2021-03-22] MEDS: ASPIRIN 81 MG ECTAB PO SCH (11:47)
[2021-03-22] MEDS: POTASSIUM CHLORIDE 10 MEQ TABCR PO SCH ×2 (11:49→21:02)
[2021-03-22] MEDS: traMADol HCL 50 MG TABLET PO PRN (17:11)
[2021-03-22] MEDS: ENOXAPARIN INJ 40 MG/0.4 ML SYR SQ SCH (20:57)
[2021-03-22] MEDS: lamoTRIgine 25 MG TAB PO SCH (20:58)
[2021-03-22] MEDS: EZETIMIBE 10 MG TABLET PO SCH (21:00)
[2021-03-22] MEDS: ALBUT/IPRATROP 3MG/0.5MG NEB 3 ML VIAL NEB PRN (21:02)
[2021-03-23] MEDS: DICLOFENAC SOD 1% GEL 100 GM TUBE EXT SCH ×5 (02:45→21:23)
[2021-03-23 05:17] LABS: Hematocrit (blood only) 37.2 % (37-47); Hemoglobin 12.1 g/dL (12.0-16.0); Mean Corpuscular Hemoglobin 27.8 pg (25-34); Mean Corpuscular Hgb Conc 32.5 g/dL (32-36); Mean Corpuscular Volume 85.3 fL (80-100); Mean Platelet Volume 9.5 fL (7.4-10.4); Platelet Count 251 K/uL (130-400); RDW Coefficient of Variation 14.1 % (11.5-14.5); RDW Standard Deviation 44.2 fL (36.4-46.3); Red Blood Count 4.36 M/uL (4.2-5.4); White Blood Count 8.21 K/uL (4.8-10.8)
[2021-03-23 05:45] LABS: BUN Creatinine Ratio 15.1 (10-20); Calcium 9.2 mg/dl (8.5-10.1); Creatinine Clr Calc Pharmacy 77.9 ml/min; Est GFR (African American) 101.7 ml/min; Est GFR (Non-African American) 87.7 ml/min; Magnesium 1.8 mg/dl (1.8-2.4); Phosphorus 3.4 mg/dl (2.5-4.9); Potassium 3.3 mmol/L (3.5-5.1)
[2021-03-23] MEDS: POTASSIUM CHLORIDE 10 MEQ TABCR PO SCH ×2 (09:05→20:53)
[2021-03-23] MEDS: ASPIRIN 81 MG ECTAB PO SCH ×2 (09:05→09:08)
[2021-03-23] MEDS: traMADol HCL 50 MG TABLET PO PRN (09:05)
[2021-03-23] MEDS: CARBIDOPA/LEVODOPA 25/100MG TAB PO SCH ×3 (09:06→20:50)
[2021-03-23] MEDS: LACTASE 3000 UNIT TAB PO SCH ×3 (09:08→16:54)
[2021-03-23] MEDS: ADVANCED PROBIOTIC 1250 MG CAPSULE PO SCH (09:09)
[2021-03-23] MEDS: LIDOCAINE 5% 1 PATCH TD SCH (09:10)
[2021-03-23] MEDS: PANTOprazole 40 MG TAB PO SCH (09:10)
[2021-03-23] MEDS ORDERED: POTASSIUM CHLORIDE CRTAB 20 MEQ TABCR PO STA (10:22)
[2021-03-23] MEDS: FERROUS SULFATE 325 MG TAB PO SCH (12:42)
[2021-03-23] MEDS: amLODIPine BESYLATE 5 MG TAB PO SCH (13:55)
[2021-03-23] MEDS ORDERED: GABAPENTIN 150 MG/3 ML UDP PO SCH (14:00)
--- NOTE | 2021-03-23 16:17 | Communication Note ---
Date of Service: March 23, 2021 Patient known to me as mother of my former business technology professor Enrrique Maxwell MD local child & adolescent psychiatrist. She has had gradual physical and co gnitive decline over the past year and saw geriactic psychiatrist Jamey Guillen MD a few months ago while residing at [facility] for rehab. It was recommended that she start low dose Risperdal to target her paranoid delusions (suspicious of and staff) but she refused at the time and recurrent hospitalizations since have made it difficult to follow up with psychiatry on an outpatient basis. She is actually from [place] but has been residing with her and his Soila (an RN) for support given limited mobility. She has been increasingly attention seeking related to anxiety and paranoid ideations, blaming staff for taking her phone or monitoring her communications. She texts her son multiple times a day and has activated EMS resulting in a protective services investigation. Most recently she experienced a fracture without apparent accident and is now admitted with pneumonia. She experienced a change in mental status and was transferred to a different unit within [facility] for closer monitoring and possible TPA for stroke like symptoms but MRI brain ultimately unchanged. In the hospital she is becoming increasingly confused, believed the [place] were coming to visit her, and made repeated calls throughout the night to her son, confused. She believes the staff are spying on her as they used a certain bathroom, and that they can hear her talking. Today was the first day her son saw her staring and responding to internal stimuli in his presence and she seemed distrustful of him, so much so that he wrote a note for the nurse rather than mom witnessing him communicating with them. She was having full conversations with the auditory georges and they were directing her to adjust sound on tv, among other things. Case reviewed briefly with Dr. Steen, reviewed labs, QTc, med list. Patient is on Sinemet for Parkinson's, will not hold for now as worsening mainly delirium but certainly can contribute to psychosis, especially georges. Recommend starting Risperdal M tab 0.25 mg this hs with likely titration, son supports this as designated family medical decision maker. If she refuses, if on ekg monitor would suggest Haldol 1 mg q4-6 prn IV. Full MSE/consult to follow within 24 hrs of order.
[2021-03-23] MEDS ORDERED: ONDANSETRON INJ 2 MG/ML 2 ML VIAL IV ONE (20:23)
[2021-03-23] MEDS: ENOXAPARIN INJ 40 MG/0.4 ML SYR SQ SCH (20:50)
[2021-03-23] MEDS: lamoTRIgine 25 MG TAB PO SCH (20:50)
[2021-03-23] MEDS: GABAPENTIN 100 MG CAP PO SCH (20:51)
[2021-03-23] MEDS: EZETIMIBE 10 MG TABLET PO SCH (20:51)
[2021-03-24] MEDS: DICLOFENAC SOD 1% GEL 100 GM TUBE EXT SCH ×4 (04:56→22:17)
[2021-03-24 05:59] LABS: BUN Creatinine Ratio 17.5 (10-20); Calcium 9.5 mg/dl (8.5-10.1); Creatinine Clr Calc Pharmacy 80.3 ml/min; Est GFR (African American) 103.3 ml/min; Est GFR (Non-African American) 89.2 ml/min; Potassium 3.4 mmol/L (3.5-5.1)
[2021-03-24] MEDS: amLODIPine BESYLATE 5 MG TAB PO SCH (08:00)
[2021-03-24] MEDS: LACTASE 3000 UNIT TAB PO SCH ×3 (08:00→16:21)
[2021-03-24] MEDS: CARBIDOPA/LEVODOPA 25/100MG TAB PO SCH ×3 (08:00→19:30)
[2021-03-24] MEDS: GABAPENTIN 100 MG CAP PO SCH ×3 (08:01→19:31)
[2021-03-24] MEDS: LIDOCAINE 5% 1 PATCH TD SCH (08:01)
[2021-03-24] MEDS: ADVANCED PROBIOTIC 1250 MG CAPSULE PO SCH (08:01)
[2021-03-24] MEDS: PANTOprazole 40 MG TAB PO SCH (08:02)
[2021-03-24] MEDS: POTASSIUM CHLORIDE 10 MEQ TABCR PO SCH ×2 (08:03→19:35)
[2021-03-24] MEDS: FERROUS SULFATE 325 MG TAB PO SCH (11:40)
--- NOTE | 2021-03-24 11:59 | Psychiatric Consultation ---
Date of Consultation March 24, 2021 Impression / Recommendations Impression 76 yo female with history of paranoid ideations related to cognitive decline now with superimposed delirium resulting in worsening hallucinations and delusions. 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 Will admin Risperdal 0.25 mg now and again this hs and monitor. She does not present with significant tremor at baseline, likely more bradykinesia presentation of her Parkinsons but will watch for worsening muscle rigidity. 03/23/21: Case reviewed briefly with Dr. Steen, reviewed labs, QTc, med list. Patient is on Sinemet for Parkinson's, will not hold for now as worsening mainly delirium but certainly can contribute to psychosis, especially georges. Recommend starting Risperdal M tab 0.25 mg this hs with likely titration, son supports this as designated family medical decision maker. If she refuses, if on library monitor would suggest Haldol 1 mg q4-6 prn IV. Risk Factors Assessment Do You Have Access To A Gun?: No Psych History Identifying Data Mrs. Maxwell is a 76 yo female from [place], admit on 03/16/21 for pneumonia and UTI. Consult is by [facility] service for paranoia and hallucinations. Chief Complaint "They are texting me to mess with me and I wake up to them laughing". History of Present Illness Mrs. Maxwell has a history of Parkinson's, Rgdbfif-Sqazf-Zzrla disease, HTN, HLD, history of TIA, CKD stage III, chronic Romeo catheter with recurrent UTIs, wheelchair-bound, and multiple lower extremity surgeries. She was recently admitted to [facility] 02/15 through 02/23 for left knee pain s/p total knee arthroplasty. Patient discharged to [facility] to her son's home in [place]. As per my chart review note dated 03/23/21: Patient known to me as mother of my former business coordinator Enrrique Maxwell MD local child & adolescent psychiatrist. She has had gradual physical and cognitive decline over the past year and saw geriactic psychiatrist Jamey Guillen MD a few months ago while residing at [facility] for rehab. It was recommended that she start low dose Risperdal to target her paranoid delusions (suspicious of and staff) but she refused at the time and recurrent hospitalizations since have made it difficult to follow up with psychiatry on an outpatient basis. She is actually from [place] but has been residing with her and his Soila (an RN) for support given limited mobility. She has been increasingly attention seeking related to anxiety and paranoid ideations, blaming staff for taking her phone or monitoring her communications. She texts her son multiple times a day and has activated EMS resulting in a protective services investigation. Most recently she experienced a fracture without apparent accident and is now admitted with pneumonia. She experienced a change in mental status and was transferred to a different unit within [facility] for closer monitoring and possible TPA for stroke like symptoms but MRI brain ultimately unchanged. In the hospital she is becoming increasingly confused, believed the [facility] were coming to visit her, and made repeated calls throughout the night to her son, confused. She believes the staff are spying on her as they used a certain bathroom, and that they can hear her talking. Today was the first day her son saw her staring and responding to internal stimuli in his presence and she seemed distrustful of him, so much so that he wrote a note for the nurse rather than mom witnessing him communicating with them. She was having full conversations with the auditory georges and they were directing her to adjust sound on tv, among other things. Yesterday staff had to disable her phone as she had called 911 several times that someone was stealing her pills. Overnight she called out for Esther Donato and said she could hear her and this remained paranoid and hallucinating but accepted pills with chocolate pudding. She tells me today that "those people" are still messing with her phone, intercepting her text messages and when I asked her if she felt safe here she stated, "Why, what did Enrrique tell you?" She reported seeing and hearing a in the parking lot and hearing a 21 gun salute then said "I know they're coming". Past Psychiatric History Previous Psych History: no formal, 1 [facility] psych eval as above. Previous Psych Admissions: none Do You Have Access To A Gun?: No History of Previous Suicide Attempt: No Past Medication Trials: has refused Risperdal on outpatient basis Allergies Allergy/AdvReac Type Severity Reaction Status Date / Time bee venom protein (honey bee) Allergy Severe ANAPHYLAXIS Verified 03/12/21 11:42 shellfish derived Allergy Severe anaphylaxis Verified 03/12/21 11:42 Sulfa (Sulfonamide Allergy Severe ANAPHYLAXIS Verified 03/12/21 11:42 Antibiotics) Fish Containing Products Allergy Verified 03/15/21 09:12 fish derived Allergy Verified 03/15/21 09:12 fish oil Allergy Verified 03/15/21 09:12 Home Medications Medication Instructions Recorded Confirmed Type lidocaine 4 % topical patch 1 patch TOPICAL DAILY 12/20/20 03/12/21 History (Aspercreme (lidocaine)) acetaminophen 500 mg tablet 1,000 mg PO BID #60 tab 02/23/21 03/12/21 Rx (Tylenol Extra Strength) albuterol sulfate 2.5 mg/0.5 mL 5 mg INHALATION Q4H PRN #10 ea 02/23/21 03/12/21 Rx solution for nebulization amlodipine 10 mg tablet 10 mg PO DAILY #30 tab 02/23/21 03/12/21 Rx aspirin 81 mg tablet,delayed 81 mg PO DAILY #30 tab 02/23/21 03/12/21 Rx release (Adult Aspirin Regimen) baclofen 10 mg tablet 10 mg PO QID #120 tab 02/23/21 03/12/21 Rx carbidopa 25 mg-levodopa 100 mg 1 tab PO TID #90 tab 02/23/21 03/12/21 Rx tablet diclofenac sodium 1 % topical gel 4 g TOPICAL QID #100 g 02/23/21 03/12/21 Rx docusate sodium 100 mg capsule 100 mg PO DAILY PRN #30 cap 02/23/21 03/12/21 Rx ezetimibe 10 mg tablet 10 mg PO HS #30 tab 02/23/21 03/12/21 Rx ferrous sulfate 325 mg (65 mg 325 mg PO QDL #30 tab 02/23/21 03/12/21 Rx iron) tablet gabapentin 600 mg tablet 900 mg PO TID #135 tab 02/23/21 03/12/21 Rx isosorbide mononitrate 30 mg 30 mg PO QAM #30 tab 02/23/21 03/12/21 Rx tablet,extended release 24 hr lactase 3,000 unit tablet 3,000 unit PO AC #90 tab 02/23/21 03/12/21 Rx lamotrigine 25 mg tablet (Lamictal) 75 mg PO HS #30 tab 02/23/21 03/12/21 Rx melatonin 5 mg capsule 5 mg PO HS #30 cap 02/23/21 03/12/21 Rx omeprazole 20 mg capsule,delayed 20 mg PO DAILY #30 cap 02/23/21 03/12/21 Rx release polyethylene glycol 3350 17 17 g PO DAILY PRN #119 g 02/23/21 03/12/21 Rx gram/dose oral powder (Miralax) potassium chloride 10 mEq 10 meq PO BID #60 tab 02/23/21 03/12/21 Rx tablet,extended release fesoterodine 4 mg tablet,extended 4 mg PO QPM 03/12/21 03/12/21 History release 24 hr (Toviaz) meloxicam 7.5 mg tablet 7.5 mg PO DAILY 03/12/21 03/12/21 History tramadol 50 mg tablet 50 mg PO BID PRN 03/12/21 03/12/21 History Substance Abuse History history of prescription opiod misuse/dependence. Personal History Beliefs That Will Affect Care: None Patient History Medical History Anemia Chronic back pain Chronic knee pain after total replacement of left knee joint Chronic left shoulder pain Chronic pain CKD (chronic kidney disease), stage III CMT (Ysihqgd-Ektic-Whdik disease) Degenerative disc disease 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 GERD (gastroesophageal reflux disease) Hearing loss Hearing loss in left ear Hyperlipidemia Hypertension Hypothyroidism Insomnia Lactose intolerance Migraine Nausea and vomiting after administration of anesthetic agent Obesity Osteoarthritis Palliative care encounter Parkinson disease Renal lesion Repeated falls Spinal stenosis Transient cerebral ischemia Trigeminal neuralgia Unspecified abnormalities of gait and mobility Weakness Surgical History History of appendectomy History of bilateral cataract extraction History of bilateral tubal ligation History of bladder surgery botox injections into bladder History of bladder suspension procedure x2 History of brain surgery "microvascular decompression" X2 @ [facility] 2009? History of colonoscopy with polypectomy History of dilatation and curettage History of esophagogastroduodenoscopy (EGD) History of fusion of cervical spine C3-C6; normal ROM History of left breast biopsy x2--benign History of lumbar discectomy L4-L5 History of mandibular surgery x2 2007 after accident--1st time wired shut 2nd sx metal jaw put in---normal ROM History of open reduction and internal fixation (ORIF) procedure right ankle History of partial hysterectomy History of shoulder surgery x4 on left History of surgery brain stimulator removed 1 yr after placed History of surgery on arm right x2 d/t dog bite History of surgery on right wrist fx repair, no hardware History of tooth extraction History of total left knee replacement (TKR) History of total right knee replacement (TKR) History of wisdom tooth extraction Status post correction of deviated nasal septum Status post deep brain stimulator placement 2009 @ [facility] Family History Son Family history of reaction to anesthesia nausea/vomiting Family history of diabetes mellitus Son Family history of reaction to anesthesia nausea/vomiting Son Family history of reaction to anesthesia nausea/vomiting Father Family history of diabetes mellitus Mother Family history of diabetes mellitus Family hx of colon cancer Grandmother (Paternal) Family history of diabetes mellitus Social History Smoking Status: Never smoker Second Hand Exposure: No; Do You Dip or Chew Tobacco: No; Hx Alcohol Use: No Hx Substance Use: No Preferred Language: Togolese Communication Ability: Effective Visual Impairment: No Limitations Hearing Ability: Normal Web Engineer Required: No Beliefs That Will Affect Care: None marital status: Current Living Situation: Family Current Living Situation Comment: Pt temporarily with Son and Hxfvyqas-Dg-Axo. current occupational status: retired Other Information That Helps Us Care for You: No Feels Safe at Home: Yes Safety Concerns: Feels Safe At This Time Assistive Devices: None Assistive Devices Comment: Pt does not use oxygen at baseline. Physical Exam Psychiatric: Orientation: alert and oriented to person Apperance: appropriately groomed Eye Contact: + fair eye contact Motor Behavior: no abnormal motor movements Speech: + abnormal rate/rhythm/volume of speech (soft at times and slow but did call out due to paranoia) Affect: + depressed affect Mood: + depressed mood Thought Process: + looseness of associations Thought Content: + paranoid and + delusions Suicidal Thoughts: denies suicidal thoughts Homicidal Thoughts: denies homicidal thoughts Hallucinations: + auditory hallucinations; no visual hallucinations (though res ponds to stimuli in hallway) Cognition: language grossly intact; + attention not intact Estimated Intelligence: consistent with education level Insight: + severely impaired insight Judgement: + severely impaired judgement Vital Signs (Past 24 Hours): Last Vital Signs Temp 36.4 C L 03/24/21 08:00 Pulse 85 03/24/21 08:00 Resp 22 03/24/21 08:00 BP 166/82 H 03/24/21 08:00 Pulse Ox 98 03/24/21 08:00 Review of Systems Unobtainable due to cognitive status Results & Data (PSY) Laboratory Results 03/24/21 Range/Units 05:09 Sodium 136 (136-145) mmol/L Potassium 3.4 L (3.5-5.1) mmol/L Chloride 106 (98-107) mmol/L Carbon Dioxide 23 (21-32) mmol/L Anion Gap 7.0 (3-11) BUN 10 (7-18) mg/dl Creatinine 0.60 (0.6-1.2) mg/dl Est Cr Clr Drug Dosing 80.3 ml/min Est GFR ( Amer) 103.3 ml/min Est GFR (Non-Af Amer) 89.2 ml/min BUN/Creatinine Ratio 17.5 (10-20) Glucose 91 (70-99) mg/dl Calcium 9.5 (8.5-10.1) mg/dl Medications Administered Acetaminophen (Acetaminophen 325 Mg Tab) 650 mg PO Q4H PRN PRN Reason: pain/fever Stop: 04/11/21 16:59 Last Admin: 03/21/21 21:54 Dose: 650 mg Documented by: [id number] Admin: 03/21/21 17:18 Dose: 650 mg Documented by: [id number] Admin: 03/20/21 08:38 Dose: 650 mg Documented by: [id number] Admin: 03/19/21 14:42 Dose: 650 mg Documented by: [id number] Admin: 03/19/21 07:33 Dose: 650 mg Documented by: [id number] Admin: 03/16/21 16:31 Dose: 650 mg Documented by: [id number] Admin: 03/16/21 08:58 Dose: 650 mg Documented by: [id number] Admin: 03/15/21 14:17 Dose: 650 mg Documented by: [id number] Admin: 03/12/21 17:49 Dose: 650 mg Documented by: [id number] Albuterol (Albuterol 0.5% Neb Soln 2.5 Mg/0.5 Ml Vial) 2.5 mg NEB Q6R PRN PRN Reason: wheezing, SOB Stop: 04/13/21 18:59 Last Admin: 03/19/21 09:50 Dose: 2.5 mg Documented by: [id number] Albuterol (Albut/Ipratrop 3mg/0.5mg Neb 3 Ml Vial) 3 ml NEB Q4R PRN PRN Reason: Shortness Of Breath Or Wheezing Stop: 04/11/21 18:59 Last Admin: 03/22/21 21:02 Dose: 3 ml Documented by: [id number] Admin: 03/20/21 13:43 Dose: 3 ml Documented by: [id number] Admin: 03/18/21 12:35 Dose: 3 ml Documented by: [id number] Admin: 03/16/21 21:43 Dose: 3 ml Documented by: [id number] Amlodipine Besylate (Amlodipine Besylate 5 Mg Tab) 5 mg PO QAM [facility] Stop: 04/22/21 12:14 Last Admin: 03/24/21 08:00 Dose: 5 mg Documented by: [id number] Admin: 03/23/21 13:55 Dose: 5 mg Documented by: [id number] Aspirin (Aspirin 81 Mg Ectab) 81 mg PO DAILY [facility] Stop: 04/12/21 08:59 Last Admin: 03/23/21 09:08 Dose: 81 mg Documented by: [id number] Admin: 03/23/21 09:05 Dose: 81 mg Documented by: [id number] Admin: 03/22/21 11:47 Dose: 81 mg Documented by: [id number] Admin: 03/21/21 08:02 Dose: 81 mg Documented by: [id number] Admin: 03/20/21 08:43 Dose: 81 mg Documented by: [id number] Admin: 03/19/21 09:13 Dose: 81 mg Documented by: [id number] Admin: 03/18/21 08:07 Dose: 81 mg Documented by: [id number] Admin: 03/17/21 08:52 Dose: 81 mg Documented by: [id number] Admin: 03/16/21 08:59 Dose: 81 mg Documented by: [id number] Admin: 03/15/21 08:27 Dose: 81 mg Documented by: [id number] Admin: 03/14/21 08:22 Dose: 81 mg Documented by: [id number] Admin: 03/13/21 08:13 Dose: 81 mg Documented by: [id number] Carbidopa/Levodopa (Carbidopa/Levodopa 25/100mg Tab) 1 tab PO TID [facility] Stop: 04/11/21 20:59 Last Admin: 03/24/21 08:00 Dose: 1 tab Documented by: [id number] Admin: 03/23/21 20:50 Dose: 1 tab Documented by: [id number] Admin: 03/23/21 16:19 Dose: 1 tab Documented by: [id number] Admin: 03/23/21 09:06 Dose: 1 tab Documented by: [id number] Admin: 03/22/21 20:58 Dose: 1 tab Documented by: [id number] Admin: 03/22/21 15:26 Dose: 1 tab Documented by: [id number] Admin: 03/22/21 11:46 Dose: 1 tab Documented by: [id number] Admin: 03/21/21 22:00 Dose: 1 tab Documented by: [id number] Admin: 03/21/21 14:49 Dose: 1 tab Documented by: [id number] Admin: 03/21/21 08:01 Dose: 1 tab Documented by: [id number] Admin: 03/20/21 20:19 Dose: 1 tab Documented by: [id number] Admin: 03/20/21 13:00 Dose: 1 tab Documented by: [id number] Admin: 03/20/21 08:44 Dose: 1 tab Documented by: [id number] Admin: 03/19/21 21:47 Dose: 1 tab Documented by: [id number] Admin: 03/19/21 14:40 Dose: 1 tab Documented by: [id number] Admin: 03/19/21 09:13 Dose: 1 tab Documented by: [id number] Admin: 03/18/21 21:10 Dose: 1 tab Documented by: [id number] Admin: 03/18/21 14:44 Dose: 1 tab Documented by: [id number] Admin: 03/18/21 08:08 Dose: 1 tab Documented by: [id number] Admin: 03/17/21 20:42 Dose: 1 tab Documented by: [id number] Admin: 03/17/21 14:27 Dose: 1 tab Documented by: [id number] Admin: 03/17/21 08:50 Dose: 1 tab Documented by: [id number] Admin: 03/16/21 21:17 Dose: 1 tab Documented by: [id number] Admin: 03/16/21 12:38 Dose: 1 tab Documented by: [id number] Admin: 03/16/21 09:00 Dose: 1 tab Documented by: [id number] Admin: 03/15/21 20:19 Dose: 1 tab Documented by: [id number] Admin: 03/15/21 13:03 Dose: 1 tab Documented by: [id number] Admin: 03/15/21 08:27 Dose: 1 tab Documented by: [id number] Admin: 03/14/21 20:19 Dose: 1 tab Documented by: [id number] Admin: 03/14/21 13:23 Dose: 1 tab Documented by: [id number] Admin: 03/14/21 08:18 Dose: 1 tab Documented by: [id number] Admin: 03/13/21 20:17 Dose: 1 tab Documented by: [id number] Admin: 03/13/21 14:54 Dose: 1 tab Documented by: [id number] Admin: 03/13/21 08:13 Dose: 1 tab Documented by: [id number] Admin: 03/12/21 21:36 Dose: 1 tab Documented by: [id number] Diclofenac Sodium (Diclofenac Sod 1% Gel 100 Gm Tube) 2 gm EXT Q6 [facility] Stop: 04/13/21 15:29 Last Admin: 03/24/21 11:41 Dose: Not Given Documented by: [id number] Admin: 03/24/21 04:56 Dose: Not Given Documented by: [id number] Admin: 03/23/21 21:23 Dose: Not Given Documented by: [id number] Admin: 03/23/21 16:54 Dose: Not Given Documented by: [id number] Admin: 03/23/21 13:02 Dose: Not Given Documented by: [id number] Admin: 03/23/21 06:34 Dose: Not Given Documented by: [id number] Admin: 03/23/21 02:45 Dose: Not Given Documented by: [id number] Admin: 03/22/21 17:13 Dose: Not Given Documented by: [id number] Admin: 03/22/21 12:14 Dose: 2 gm Documented by: [id number] Admin: 03/22/21 07:06 Dose: Not Given Documented by: [id number] Admin: 03/22/21 01:15 Dose: Not Given Documented by: [id number] Admin: 03/21/21 17:19 Dose: 2 gm Documented by: [id number] Admin: 03/21/21 11:37 Dose: 2 gm Documented by: [id number] Admin: 03/21/21 07:05 Dose: 2 gm Documented by: [id number] Admin: 03/21/21 03:12 Dose: Not Given Documented by: [id number] Admin: 03/20/21 17:39 Dose: 2 gm Documented by: [id number] Admin: 03/20/21 11:02 Dose: 2 gm Documented by: [id number] Admin: 03/20/21 04:23 Dose: Not Given Documented by: [id number] Admin: 03/19/21 21:50 Dose: 2 gm Documented by: [id number] Admin: 03/19/21 17:05 Dose: 2 gm Documented by: [id number] Admin: 03/19/21 12:50 Dose: 2 gm Documented by: [id number] Admin: 03/19/21 05:53 Dose: 2 gm Documented by: [id number] Admin: 03/18/21 23:11 Dose: Not Given Documented by: [id number] Admin: 03/18/21 17:40 Dose: 2 gm Documented by: [id number] Admin: 03/18/21 12:26 Dose: 2 gm Documented by: [id number] Admin: 03/18/21 05:01 Dose: 2 gm Documented by: [id number] Admin: 03/18/21 00:25 Dose: 2 gm Documented by: [id number] Admin: 03/17/21 17:48 Dose: 2 gm Documented by: [id number] Admin: 03/17/21 12:52 Dose: 2 gm Documented by: [id number] Admin: 03/17/21 05:26 Dose: 2 gm Documented by: [id number] Admin: 03/16/21 23:20 Dose: 2 gm Documented by: [id number] Admin: 03/16/21 17:36 Dose: 2 gm Documented by: [id number] Admin: 03/16/21 12:37 Dose: 2 gm Documented by: [id number] Admin: 03/16/21 06:02 Dose: 2 gm Documented by: [id number] Admin: 03/16/21 00:17 Dose: 2 gm Documented by: [id number] Admin: 03/15/21 17:07 Dose: 2 gm Documented by: [id number] Admin: 03/15/21 12:15 Dose: 2 gm Documented by: [id number] Admin: 03/15/21 05:54 Dose: 2 gm Documented by: [id number] Admin: 03/15/21 00:11 Dose: Not Given Documented by: [id number] Admin: 03/14/21 20:18 Dose: 2 gm Documented by: [id number] Admin: 03/14/21 16:34 Dose: 2 gm Documented by: [id number] Docusate Sodium (Docusate Sodium 100 Mg Cap) 100 mg PO DAILY PRN PRN Reason: Constipation Stop: 04/11/21 16:59 Last Admin: 03/18/21 08:07 Dose: 100 mg Documented by: [id number] Admin: 03/15/21 14:17 Dose: 100 mg Documented by: [id number] Ezetimibe (Ezetimibe 10 Mg Tablet) 10 mg PO HS [facility] Stop: 04/11/21 20:59 Last Admin: 03/23/21 20:51 Dose: 10 mg Documented by: [id number] Admin: 03/22/21 21:00 Dose: 10 mg Documented by: [id number] Admin: 03/21/21 22:00 Dose: 10 mg Documented by: [id number] Admin: 03/20/21 20:19 Dose: 10 mg Documented by: [id number] Admin: 03/19/21 21:48 Dose: 10 mg Documented by: [id number] Admin: 03/18/21 21:12 Dose: 10 mg Documented by: [id number] Admin: 03/17/21 20:42 Dose: 10 mg Documented by: [id number] Admin: 03/16/21 21:17 Dose: 10 mg Documented by: [id number] Admin: 03/15/21 20:20 Dose: 10 mg Documented by: [id number] Admin: 03/14/21 20:19 Dose: 10 mg Documented by: [id number] Admin: 03/13/21 20:17 Dose: 10 mg Documented by: [id number] Admin: 03/12/21 21:36 Dose: 10 mg Documented by: [id number] Enoxaparin Sodium (Enoxaparin Inj 40 Mg/0.4 Ml Syr) 40 mg SQ Q24H [facility] Stop: 04/11/21 16:59 Last Admin: 03/23/21 20:50 Dose: 40 mg Documented by: [id number] Admin: 03/22/21 20:57 Dose: 40 mg Documented by: [id number] Admin: 03/21/21 21:59 Dose: 40 mg Documented by: [id number] Admin: 03/20/21 20:19 Dose: 40 mg Documented by: [id number] Admin: 03/19/21 21:48 Dose: 40 mg Documented by: [id number] Admin: 03/18/21 21:10 Dose: 40 mg Documented by: [id number] Admin: 03/17/21 20:42 Dose: 40 mg Documented by: [id number] Admin: 03/16/21 21:17 Dose: 40 mg Documented by: [id number] Admin: 03/15/21 20:21 Dose: 40 mg Documented by: [id number] Admin: 03/14/21 21:33 Dose: 40 mg Documented by: [id number] Admin: 03/13/21 20:18 Dose: 40 mg Documented by: [id number] Admin: 03/12/21 21:35 Dose: 40 mg Documented by: [id number] Ferrous Sulfate (Ferrous Sulfate 325 Mg Tab) 325 mg PO DAILY@1100 [facility] Stop: 04/12/21 10:59 Last Admin: 03/24/21 11:40 Dose: 325 mg Documented by: [id number] Admin: 03/23/21 12:42 Dose: 325 mg Documented by: [id number] Admin: 03/22/21 11:46 Dose: 325 mg Documented by: [id number] Admin: 03/21/21 11:36 Dose: 325 mg Documented by: [id number] Admin: 03/20/21 11:03 Dose: 325 mg Documented by: [id number] Admin: 03/19/21 12:27 Dose: 325 mg Documented by: [id number] Admin: 03/18/21 10:57 Dose: 325 mg Documented by: [id number] Admin: 03/17/21 12:52 Dose: 325 mg Documented by: [id number] Admin: 03/16/21 12:37 Dose: 325 mg Documented by: [id number] Admin: 03/15/21 12:15 Dose: 325 mg Documented by: [id number] Admin: 03/14/21 12:08 Dose: 325 mg Documented by: [id number] Admin: 03/13/21 11:13 Dose: 325 mg Documented by: [id number] Gabapentin (Gabapentin 100 Mg Cap) 200 mg PO TID [facility] Stop: 04/22/21 20:59 Last Admin: 03/24/21 08:01 Dose: 200 mg Documented by: [id number] Admin: 03/23/21 20:51 Dose: 200 mg Documented by: [id number] Lactase (Lactase 3000 Unit Tab) 3,000 units PO AC [facility] Stop: 04/11/21 16:59 Last Admin: 03/24/21 11:40 Dose: 3,000 units Documented by: [id number] Admin: 03/24/21 08:00 Dose: 3,000 units Documented by: [id number] Admin: 03/23/21 16:54 Dose: 3,000 units Documented by: [id number] Admin: 03/23/21 12:42 Dose: Not Given Documented by: [id number] Admin: 03/23/21 09:08 Dose: 3,000 units Documented by: [id number] Admin: 03/22/21 17:12 Dose: 3,000 units Documented by: [id number] Admin: 03/22/21 11:46 Dose: 3,000 units Documented by: [id number] Admin: 03/22/21 07:45 Dose: 3,000 units Documented by: [id number] Admin: 03/21/21 17:18 Dose: 3,000 units Documented by: [id number] Admin: 03/21/21 11:36 Dose: 3,000 units Documented by: [id number] Admin: 03/21/21 08:00 Dose: 3,000 units Documented by: [id number] Admin: 03/20/21 17:39 Dose: 3,000 units Documented by: [id number] Admin: 03/20/21 11:03 Dose: 3,000 units Documented by: [id number] Admin: 03/20/21 08:43 Dose: 3,000 units Documented by: [id number] Admin: 03/19/21 17:06 Dose: 3,000 units Documented by: [id number] Admin: 03/19/21 12:37 Dose: 3,000 units Documented by: [id number] Admin: 03/19/21 05:55 Dose: 3,000 units Documented by: [id number] Admin: 03/18/21 17:39 Dose: 3,000 units Documented by: [id number] Admin: 03/18/21 12:25 Dose: 3,000 units Documented by: [id number] Admin: 03/18/21 08:11 Dose: 3,000 units Documented by: [id number] Admin: 03/17/21 17:55 Dose: 3,000 units Documented by: [id number] Admin: 03/17/21 12:52 Dose: 3,000 units Documented by: [id number] Admin: 03/17/21 08:53 Dose: 3,000 units Documented by: [id number] Admin: 03/16/21 16:31 Dose: 3,000 units Documented by: [id number] Admin: 03/16/21 12:37 Dose: Not Given Documented by: [id number] Admin: 03/16/21 09:02 Dose: Not Given Documented by: [id number] Admin: 03/15/21 16:22 Dose: 3,000 units Documented by: [id number] Admin: 03/15/21 12:15 Dose: 3,000 units Documented by: [id number] Admin: 03/15/21 08:28 Dose: 3,000 units Documented by: [id number] Admin: 03/14/21 16:34 Dose: 3,000 units Documented by: [id number] Admin: 03/14/21 12:08 Dose: 3,000 units Documented by: [id number] Admin: 03/14/21 08:23 Dose: 3,000 units Documented by: [id number] Admin: 03/13/21 16:43 Dose: 3,000 units Documented by: [id number] Admin: 03/13/21 11:13 Dose: 3,000 units Documented by: [id number] Admin: 03/13/21 08:13 Dose: 3,000 units Documented by: [id number] Admin: 03/12/21 18:05 Dose: 3,000 units Documented by: [id number] Lactobacillus Acidoph/Casei/Rhamnos (Advanced Probiotic 1250 Mg Capsule) 2 cap PO DAILY [facility] Stop: 04/14/21 14:29 Last Admin: 03/24/21 08:01 Dose: 2 cap Documented by: [id number] Admin: 03/23/21 09:09 Dose: 2 cap Documented by: [id number] Admin: 03/22/21 11:45 Dose: 2 cap Documented by: [id number] Admin: 03/21/21 08:02 Dose: 2 cap Documented by: [id number] Admin: 03/20/21 08:46 Dose: 2 cap Documented by: [id number] Admin: 03/19/21 09:15 Dose: 2 cap Documented by: [id number] Admin: 03/18/21 08:10 Dose: 2 cap Documented by: [id number] Admin: 03/17/21 08:52 Dose: 2 cap Documented by: [id number] Admin: 03/16/21 09:01 Dose: 2 cap Documented by: [id number] Admin: 03/15/21 16:22 Dose: 2 cap Documented by: [id number] Lamotrigine (Lamotrigine 25 Mg Tab) 75 mg PO HS [facility] Stop: 04/11/21 20:59 Last Admin: 03/23/21 20:50 Dose: 75 mg Documented by: [id number] Admin: 03/22/21 20:58 Dose: 75 mg Documented by: [id number] Admin: 03/21/21 21:57 Dose: 75 mg Documented by: [id number] Admin: 03/20/21 20:18 Dose: 75 mg Documented by: [id number] Admin: 03/19/21 21:47 Dose: 75 mg Documented by: [id number] Admin: 03/18/21 22:03 Dose: 75 mg Documented by: [id number] Admin: 03/17/21 20:42 Dose: 75 mg Documented by: [id number] Admin: 03/16/21 21:17 Dose: 75 mg Documented by: [id number] Admin: 03/15/21 20:20 Dose: 75 mg Documented by: [id number] Admin: 03/14/21 20:20 Dose: 75 mg Documented by: [id number] Admin: 03/13/21 20:18 Dose: 75 mg Documented by: [id number] Admin: 03/12/21 21:36 Dose: 75 mg Documented by: [id number] Lidocaine (Lidocaine 5% 1 Patch) 1 patch TD DAILY [facility] Stop: 04/12/21 08:59 Last Admin: 03/24/21 08:01 Dose: 1 patch Documented by: [id number] Admin: 03/23/21 09:10 Dose: 1 patch Documented by: [id number] Admin: 03/22/21 11:46 Dose: 1 patch Documented by: [id number] Admin: 03/21/21 08:02 Dose: 1 patch Documented by: [id number] Admin: 03/20/21 08:42 Dose: 1 patch Documented by: [id number] Admin: 03/19/21 09:15 Dose: 1 patch Documented by: [id number] Admin: 03/18/21 08:11 Dose: 1 patch Documented by: [id number] Admin: 03/17/21 08:55 Dose: 1 patch Documented by: [id number] Admin: 03/16/21 09:11 Dose: 1 patch Documented by: [id number] Admin: 03/15/21 08:29 Dose: 1 patch Documented by: [id number] Admin: 03/14/21 08:24 Dose: 1 patch Documented by: [id number] Admin: 03/13/21 08:14 Dose: 1 patch Documented by: [id number] Meloxicam (Meloxicam 7.5 Mg Tab) 7.5 mg PO DAILY [facility] Stop: 04/12/21 08:59 Last Admin: 03/20/21 08:46 Dose: 7.5 mg Documented by: [id number] Admin: 03/19/21 09:15 Dose: 7.5 mg Documented by: [id number] Admin: 03/18/21 08:11 Dose: 7.5 mg Documented by: [id number] Admin: 03/17/21 08:51 Dose: 7.5 mg Documented by: [id number] Admin: 03/16/21 09:01 Dose: 7.5 mg Documented by: [id number] Admin: 03/15/21 08:28 Dose: 7.5 mg Documented by: [id number] Admin: 03/14/21 08:33 Dose: 7.5 mg Documented by: [id number] Admin: 03/13/21 08:11 Dose: 7.5 mg Documented by: [id number] Miscellaneous (Toviaz-Order Awaiting Action) 1 ea N/A QS [facility] Stop: 04/12/21 00:00 Last Admin: 03/24/21 07:38 Dose: Not Given Documented by: [id number] Admin: 03/23/21 21:24 Dose: Not Given Documented by: [id number] Admin: 03/23/21 16:19 Dose: Not Given Documented by: [id number] Admin: 03/23/21 09:09 Dose: Not Given Documented by: [id number] Admin: 03/23/21 02:45 Dose: Not Given Documented by: [id number] Admin: 03/22/21 15:27 Dose: Not Given Documented by: [id number] Admin: 03/22/21 10:03 Dose: Not Given Documented by: [id number] Admin: 03/22/21 01:15 Dose: Not Given Documented by: [id number] Admin: 03/21/21 15:10 Dose: Not Given Documented by: [id number] Admin: 03/21/21 08:01 Dose: Not Given Documented by: [id number] Admin: 03/21/21 03:11 Dose: Not Given Documented by: [id number] Admin: 03/20/21 16:46 Dose: Not Given Documented by: [id number] Admin: 03/20/21 07:32 Dose: Not Given Documented by: [id number] Admin: 03/19/21 23:32 Dose: Not Given Documented by: [id number] Admin: 03/19/21 16:27 Dose: Not Given Documented by: [id number] Admin: 03/19/21 09:06 Dose: Not Given Documented by: [id number] Admin: 03/18/21 23:11 Dose: Not Given Documented by: [id number] Admin: 03/18/21 17:39 Dose: Not Given Documented by: [id number] Admin: 03/18/21 09:30 Dose: Not Given Documented by: [id number] Admin: 03/18/21 00:25 Dose: Not Given Documented by: [id number] Admin: 03/17/21 17:08 Dose: Not Given Documented by: [id number] Admin: 03/17/21 08:55 Dose: Not Given Documented by: [id number] Admin: 03/16/21 22:39 Dose: Not Given Documented by: [id number] Admin: 03/16/21 15:30 Dose: Not Given Documented by: [id number] Admin: 03/16/21 09:12 Dose: Not Given Documented by: [id number] Admin: 03/16/21 00:17 Dose: Not Given Documented by: [id number] Admin: 03/15/21 14:12 Dose: Not Given Documented by: [id number] Admin: 03/15/21 08:29 Dose: Not Given Documented by: [id number] Admin: 03/15/21 00:11 Dose: Not Given Documented by: [id number] Admin: 03/14/21 15:00 Dose: Not Given Documented by: [id number] Admin: 03/14/21 08:45 Dose: Not Given Documented by: [id number] Admin: 03/13/21 23:30 Dose: Not Given Documented by: [id number] Admin: 03/13/21 15:13 Dose: Not Given Documented by: [id number] Admin: 03/13/21 08:14 Dose: Not Given Documented by: [id number] Admin: 03/13/21 00:19 Dose: Not Given Documented by: [id number] Miscellaneous (Remove Lidoderm Patch) 1 ea N/A HS [facility] Stop: 04/11/21 20:59 Last Admin: 03/23/21 20:51 Dose: 1 ea Documented by: [id number] Admin: 03/22/21 21:01 Dose: 1 ea Documented by: [id number] Admin: 03/21/21 22:03 Dose: 1 ea Documented by: [id number] Admin: 03/20/21 20:19 Dose: 1 ea Documented by: [id number] Admin: 03/19/21 21:50 Dose: 1 ea Documented by: [id number] Admin: 03/18/21 21:11 Dose: 1 ea Documented by: [id number] Admin: 03/17/21 20:43 Dose: 1 ea Documented by: [id number] Admin: 03/16/21 21:17 Dose: 1 ea Documented by: [id number] Admin: 03/15/21 20:21 Dose: 1 ea Documented by: [id number] Admin: 03/14/21 21:34 Dose: 1 ea Documented by: [id number] Admin: 03/13/21 20:18 Dose: 1 ea Documented by: [id number] Admin: 03/12/21 21:37 Dose: 1 ea Documented by: [id number] Pantoprazole Sodium (Pantoprazole 40 Mg Tab) 40 mg PO DAILY [facility] Stop: 04/12/21 08:59 Last Admin: 03/24/21 08:02 Dose: 40 mg Documented by: [id number] Admin: 03/23/21 09:10 Dose: 40 mg Documented by: [id number] Admin: 03/22/21 11:45 Dose: 40 mg Documented by: [id number] Admin: 03/21/21 08:03 Dose: 40 mg Documented by: [id number] Admin: 03/20/21 08:46 Dose: 40 mg Documented by: [id number] Admin: 03/19/21 09:15 Dose: 40 mg Documented by: [id number] Admin: 03/18/21 08:08 Dose: 40 mg Documented by: [id number] Admin: 03/17/21 08:53 Dose: 40 mg Documented by: [id number] Admin: 03/16/21 09:01 Dose: 40 mg Documented by: [id number] Admin: 03/15/21 08:28 Dose: 40 mg Documented by: [id number] Admin: 03/14/21 08:22 Dose: 40 mg Documented by: [id number] Admin: 03/13/21 08:11 Dose: 40 mg Documented by: [id number] Polyethylene Glycol (Polyethylene (Miralax) 17 Gm Pack) 17 gm PO DAILY PRN PRN Reason: Constipation Stop: 04/11/21 16:59 Last Admin: 03/18/21 08:07 Dose: 17 gm Documented by: [id number] Potassium Chloride (Potassium Chloride 10 Meq Tabcr) 10 meq PO BID [facility] Stop: 04/11/21 20:59 Last Admin: 03/24/21 08:03 Dose: 10 meq Documented by: [id number] Admin: 03/23/21 20:53 Dose: 10 meq Documented by: [id number] Admin: 03/23/21 09:05 Dose: 10 meq Documented by: [id number] Admin: 03/22/21 21:02 Dose: 10 meq Documented by: [id number] Admin: 03/22/21 11:49 Dose: 10 meq Documented by: [id number] Admin: 03/21/21 22:02 Dose: 10 meq Documented by: [id number] Admin: 03/21/21 08:06 Dose: 10 meq Documented by: [id number] Admin: 03/20/21 20:16 Dose: 10 meq Documented by: [id number] Admin: 03/20/21 08:52 Dose: 10 meq Documented by: [id number] Admin: 03/19/21 21:50 Dose: 10 meq Documented by: [id number] Admin: 03/19/21 09:12 Dose: 10 meq Documented by: [id number] Admin: 03/18/21 21:11 Dose: 10 meq Documented by: [id number] Admin: 03/18/21 08:12 Dose: 10 meq Documented by: [id number] Admin: 03/17/21 20:42 Dose: 10 meq Documented by: [id number] Admin: 03/17/21 08:51 Dose: 10 meq Documented by: [id number] Admin: 03/16/21 21:17 Dose: 10 meq Documented by: [id number] Admin: 03/16/21 09:01 Dose: 10 meq Documented by: [id number] Admin: 03/15/21 20:20 Dose: 10 meq Documented by: [id number] Admin: 03/15/21 08:27 Dose: 10 meq Documented by: [id number] Admin: 03/14/21 20:20 Dose: 10 meq Documented by: [id number] Admin: 03/14/21 08:21 Dose: 10 meq Documented by: [id number] Admin: 03/13/21 20:18 Dose: 10 meq Documented by: [id number] Admin: 03/13/21 08:11 Dose: 10 meq Documented by: [id number] Admin: 03/12/21 21:37 Dose: 10 meq Documented by: [id number] Tramadol HCl (Tramadol Hcl 50 Mg Tablet) 50 mg PO BID PRN PRN Reason: Pain Stop: 04/11/21 16:59 Last Admin: 03/23/21 09:05 Dose: 50 mg Documented by: [id number] Admin: 03/22/21 17:11 Dose: 50 mg Documented by: [id number] Admin: 03/21/21 08:00 Dose: 50 mg Documented by: [id number] Admin: 03/20/21 20:16 Dose: 50 mg Documented by: [id number] Admin: 03/20/21 04:23 Dose: 50 mg Documented by: [id number] Admin: 03/19/21 04:06 Dose: 50 mg Documented by: [id number] Admin: 03/18/21 17:39 Dose: 50 mg Documented by: [id number] Admin: 03/17/21 20:41 Dose: 50 mg Documented by: [id number] Admin: 03/16/21 12:38 Dose: 50 mg Documented by: [id number] Admin: 03/16/21 00:46 Dose: 50 mg Documented by: [id number] Admin: 03/15/21 14:16 Dose: 50 mg Documented by: [id number] Admin: 03/15/21 09:13 Dose: 50 mg Documented by: [id number] Admin: 03/15/21 03:42 Dose: 50 mg Documented by: [id number] Admin: 03/14/21 18:31 Dose: 50 mg Documented by: [id number] Admin: 03/14/21 08:39 Dose: 50 mg Documented by: [id number] Admin: 03/13/21 23:06 Dose: 50 mg Documented by: [id number] Admin: 03/13/21 11:18 Dose: 50 mg Documented by: [id number] Coding Level of Care Code 96017 [facility] Intl Hosp Care Lvl 2 Diagnoses 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
[2021-03-24] MEDS ORDERED: HALOPERIDOL LACTATE 5 MG/ML 1 ML VIAL IV PRN (12:16)
[2021-03-24] MEDS: risperiDONE 0.5 MG TABLET PO SCH ×2 (16:20→19:29)
[2021-03-24] MEDS: EZETIMIBE 10 MG TABLET PO SCH (19:30)
[2021-03-24] MEDS: lamoTRIgine 25 MG TAB PO SCH (19:30)
[2021-03-24] MEDS: ENOXAPARIN INJ 40 MG/0.4 ML SYR SQ SCH (19:31)
[2021-03-24] MEDS ORDERED: risperiDONE 0.5 MG TABLET PO SCH (21:00)
[2021-03-25] MEDS: DICLOFENAC SOD 1% GEL 100 GM TUBE EXT SCH ×4 (04:59→19:27)
--- NOTE | 2021-03-25 05:48 | Hospitalist Progress Note ---
Date of Service March 23, 2021 Assessment & Plan (1) Pneumonia: (2) Catheter-associated urinary tract infection: Plan: Delirium -Patient becoming more confused, reports talking to present better than his -Per nursing staff, patient also calls and yells, [place] and one on her phone and her family frequently -Likely hospital-acquired delirium -Family concerned, discussed consultation with psychiatry Sroke Alert Patient was a stroke alert overnight (03/20-03/21) Likely TIA - involving the right hemisphere with left facial droop yet on imaging has no evidence for a completed event -there were no other significant abnormalities CT angiography studies of the neck or brain and echocardiogram is negative Brain imaging unremarkable Neurology consulted and evaluated patient - At this point do not have sufficient evidence to recommend adding Plavix to her aspirin but will observe her for recurrent events and if they do enlarge then certainly would add another antiplatelet agent Recommend to continue aspirin 81 mg daily, and 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 Fields Pneumonia Has bibasilar infiltration more on the right could be secondary to aspiration versus HCAP Initial lactic acid 3.2---> 1.9, no other signs of sepsis. MRSA screen negative Zosyn 03/12 --> change to Augmentin 03/14 -->levaquin 03/15 d/t E.cloacae in UCx -->stop date 03/19 No increasing white count and no fever and no chills Cough and shortness of breath have been improving, patient on room air 03/12 blood cultureno growth so far, follow-up final results. Palliative care on board for goals of care as per request from the [id number] - hospice/palliative was discussed as possible option - Plan for family meeting on Friday Has had speech evaluation Recommended aspiration precaution during feeding If the condition persist will need to have a formal barium swallow down the line Hypoxia Pulm Edema - mild Left Plueal Effusion - Small Patient presenting from home with reports of shortness of breath associated with cough and wheezing October 2019 ECHO was a poor qualitygrossly normal LV function. Patient requiring on 2 L nasal cannula oxygen at presentation and on and off. Likely secondary to pneumonia and pulmonary edema 03/14 CXR: Mild pulmonary edema. Possible small left pleural effusion. 03/14 IV dose of Lasix, use Lasix as needed, strict I's and O's. Continue to monitor pleural effusion and pulmonary edema. Use supplemental oxygen as needed and nebulization as needed. --> Patient is improved clinically. 03/12 Zosyn to Augmentin 03/14 --->levaquin 03/15, stop date 03/19 CAUTI: Chronic indwelling Romeo catheter History of recurrent UTIs. Patient overdue for follow-up with urology---> Alexandrea BETANCOURT to arrange for outpatient follow-up for management of her chronic Romeo. UA was suggestive of infection, 03/12 urine culturepansensitive E. coli and GNB, f/u final result. Patient completed Levaquin CMT (Cmsmsbr-Clnrp-Qfecz disease): S/p multiple lower extremity procedures, most recently s/p left knee closed reduction total knee arthroplasty subluxation on 02/16/2021 - patient is to remain nonweightbearing of the left lower extremity and limited weightbearing on the right lower extremity She has been almost bedbound Abnormal Left ankle XR Patient complaining of multiple joint pain, more on the left leg 03/15 x-ray left ankle: A 1.8 cm linear ossific density posterior to the talus may represent an avulsion fracture from the dorsal calcaneus. Clinical correlation will be essential. Orthopedic consulted for left calcaneal superior posterior avulsion fracture status post fall: High tide walking boot removed, replaced with a dorsiflexion splint with a negative relief under the left heel and lambs wool padding to provide essentially neutral support for neutral dorsiflexion of the left ankle and heel and foot. Orthopedic recommending may use the walking boot for transfers or ambulating and wheelchair as necessary. Follow-up with outpatient orthopedics. Dr. Crain, [facility] [place] Parkinson disease: Continue carbidopa-levodopa No acute tremor she is slow in response and activities Chronic pain: Continue home regimen She has had recent dislocation of the left knee which is repositioned during her last hospital stay and she is not having any acute symptoms from that She was evaluated by pain therapist during her recent admission and no further recommendations were given DVT prophylaxis: SQ Lovenox Disposition: questionable at this time, CM and palliative medicine following. family meeting on Friday Admission and Anticipated Discharge Date Admission Date: March 12, 2021 Subjective Pt was stroke alert few nights ago brain imaging unremarkable Neurology consulted - recommend to continue ASA 81 and outpt follow up Currently pt is laying in bed in NAD She is able to answer simple questions slowly but appropriately Currently has no complaints Denies chest pain, shortness of breath, headache, abd. amaro, n/v However she does become more confused, says she has been talking to President [place] and his over the phone and was interrupted. Per nursing staff, she also yells frequently, calls on the phone 911 and her family. Family concerned, and discussed consultation with psychiatry. Psychiatry consult placed. Review of Systems Review of Systems: All systems reviewed & are unremarkable except as noted in Subjective Physical Exam Physical Exam: Gen: WD/WN, F, chronically ill appearing, NAD, A&O x3 HEENT: Normocephalic, atraumatic, conjunctivae moist, sclerae anicteric, mucous membranes moist. Lung: Clear to Auscultation bilaterally, no wheezes/rales/rhonchi Heart: Regular rate, regular rhythm, no murmurs, rubs, or gallops Abdomen: Soft, NT, ND +BS x 4 Extremities: b/l cam boots to RLE, leslie bandage to LLE foot, hand contractures left sided weakness (from hx of polio) Neuro: Alert oriented answering simple questions appropriately, speech is slow. However gets confused easily. Slightly flattening of Nasio labial fold on left, hand contractures left sided weakness (from hx of polio) Skin: Warm, no rash, negative turgor. : +Romeo cath Results & Data Results & Data ([facility]) Medications Administered Current Inpatient Medications Acetaminophen (Acetaminophen 325 Mg Tab) 650 mg PO Q4H PRN PRN Reason: pain/fever Stop: 04/11/21 16:59 Last Admin: 03/21/21 21:54 Dose: 650 mg Documented by: Albuterol (Albuterol 0.5% Neb Soln 2.5 Mg/0.5 Ml Vial) 2.5 mg NEB Q6R PRN PRN Reason: wheezing, SOB Stop: 04/13/21 18:59 Last Admin: 03/19/21 09:50 Dose: 2.5 mg Documented by: Albuterol (Albut/Ipratrop 3mg/0.5mg Neb 3 Ml Vial) 3 ml NEB Q4R PRN PRN Reason: Shortness Of Breath Or Wheezing Stop: 04/11/21 18:59 Last Admin: 03/22/21 21:02 Dose: 3 ml Documented by: Amlodipine Besylate (Amlodipine Besylate 5 Mg Tab) 5 mg PO QAM [facility] Stop: 04/22/21 12:14 Last Admin: 03/24/21 08:00 Dose: 5 mg Documented by: Aspirin (Aspirin 81 Mg Ectab) 81 mg PO DAILY [facility]IBELL Stop: 04/12/21 08:59 Last Admin: 03/23/21 09:08 Dose: 81 mg Documented by: Carbidopa/Levodopa (Carbidopa/Levodopa 25/100mg Tab) 1 tab PO TID MARIBELL Stop: 04/11/21 20:59 Last Admin: 03/24/21 19:30 Dose: 1 tab Documented by: Diclofenac Sodium (Diclofenac Sod 1% Gel 100 Gm Tube) 2 gm EXT Q6 [facility] Stop: 04/13/21 15:29 Last Admin: 03/25/21 04:59 Dose: 2 gm Documented by: Docusate Sodium (Docusate Sodium 100 Mg Cap) 100 mg PO DAILY PRN PRN Reason: Constipation Stop: 04/11/21 16:59 Last Admin: 03/18/21 08:07 Dose: 100 mg Documented by: Ezetimibe (Ezetimibe 10 Mg Tablet) 10 mg PO HS [facility] Stop: 04/11/21 20:59 Last Admin: 03/24/21 19:30 Dose: 10 mg Documented by: Enoxaparin Sodium (Enoxaparin Inj 40 Mg/0.4 Ml Syr) 40 mg SQ Q24H [facility] Stop: 04/11/21 16:59 Last Admin: 03/24/21 19:31 Dose: 40 mg Documented by: Ferrous Sulfate (Ferrous Sulfate 325 Mg Tab) 325 mg PO DAILY@1100 [facility] Stop: 04/12/21 10:59 Last Admin: 03/24/21 11:40 Dose: 325 mg Documented by: Gabapentin (Gabapentin 100 Mg Cap) 200 mg PO TID [facility] Stop: 04/22/21 20:59 Last Admin: 03/24/21 19:31 Dose: 200 mg Documented by: Haloperidol Lactate (Haloperidol Lactate 5 Mg/Ml 1 Ml Vial) 1 mg IV Q6 PRN PRN Reason: Anxiety/Agitation Stop: 04/23/21 12:15 Lactase (Lactase 3000 Unit Tab) 3,000 units PO AC [facility] Stop: 12/15/21 16:59 Last Admin: 03/24/21 16:21 Dose: 3,000 units Documented by: Lactobacillus Acidoph/Casei/Rhamnos (Advanced Probiotic 1250 Mg Capsule) 2 cap PO DAILY [facility] Stop: 04/14/21 14:29 Last Admin: 03/24/21 08:01 Dose: 2 cap Documented by: Lamotrigine (Lamotrigine 25 Mg Tab) 75 mg PO HS MAR[facility]ELL Stop: 04/11/21 20:59 Last Admin: 03/24/21 19:30 Dose: 75 mg Documented by: Lidocaine (Lidocaine 5% 1 Patch) 1 patch TD DAILY [facility] Stop: 04/12/21 08:59 Last Admin: 03/24/21 08:01 Dose: 1 patch Documented by: Meloxicam (Meloxicam 7.5 Mg Tab) 7.5 mg PO DAILY [facility] Stop: 04/12/21 08:59 Last Admin: 03/20/21 08:46 Dose: 7.5 mg Documented by: Miscellaneous (Toviaz-Order Awaiting Action) 1 ea N/A QS [facility] Stop: 04/12/21 00:00 Last Admin: 03/24/21 22:17 Dose: Not Given Documented by: Miscellaneous (Remove Lidoderm Patch) 1 ea N/A HS [facility] Stop: 04/11/21 20:59 Last Admin: 03/24/21 19:32 Dose: Not Given Documented by: Miscellaneous Information (Pharmacist Discharge Med Rec Consult) 1 ea N/A UD PRN PRN Reason: Consult Stop: 04/20/21 00:49 Pantoprazole Sodium (Pantoprazole 40 Mg Tab) 40 mg PO DAILY [facility] Stop: 04/12/21 08:59 Last Admin: 03/24/21 08:02 Dose: 40 mg Documented by: Polyethylene Glycol (Polyethylene (Miralax) 17 Gm Pack) 17 gm PO DAILY PRN PRN Reason: Constipation Stop: 04/11/21 16:59 Last Admin: 03/18/21 08:07 Dose: 17 gm Documented by: Potassium Chloride (Potassium Chloride 10 Meq Tabcr) 10 meq PO BID [facility] Stop: 04/11/21 20:59 Last Admin: 03/24/21 19:35 Dose: 10 meq Documented by: Risperidone (Risperidone 0.5 Mg Tablet) 0.25 mg PO BID [facility] Stop: 04/23/21 15:24 Last Admin: 03/24/21 19:29 Dose: 0.25 mg Documented by: Tramadol HCl (Tramadol Hcl 50 Mg Tablet) 50 mg PO BID PRN PRN Reason: Pain Stop: 04/11/21 16:59 Last Admin: 03/23/21 09:05 Dose: 50 mg Documented by: Zolpidem Tartrate (Zolpidem Tartrate 5 Mg Tab) 5 mg PO HS PRN PRN Reason: Sleep Stop: 04/21/21 21:50
--- NOTE | 2021-03-25 05:49 | Hospitalist Progress Note ---
Date of Service March 24, 2021 Assessment & Plan (1) Pneumonia: (2) Catheter-associated urinary tract infection: Plan: Delirium, Paranoia, hallucinations - Pt w/ hx of paranoid ideations related to cognitive decline now with superimposed delirium -Patient becoming more confused, reports talking to present better than his -Per nursing staff, patient also calls and yells, calls 911 on her phone and her family frequently -Family concerned, discussed consultation with psychiatry -started on Risperdal, mental status improved and pt more appropriate Sroke Alert Patient was a stroke alert overnight (03/20-03/21) Likely TIA - involving the right hemisphere with left facial droop yet on imaging has no evidence for a completed event -there were no other significant abnormalities CT angiography studies of the neck or brain and echocardiogram is negative Brain imaging unremarkable Neurology consulted and evaluated patient - At this point do not have sufficient evidence to recommend adding Plavix to her aspirin but will observe her for recurrent events and if they do enlarge then certainly would add another antiplatelet agent Recommend to continue aspirin 81 mg daily, and 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 Fields Pneumonia Has bibasilar infiltration more on the right could be secondary to aspiration versus HCAP Initial lactic acid 3.2---> 1.9, no other signs of sepsis. MRSA screen negative Zosyn 03/12 --> change to Augmentin 03/14 -->levaquin 03/15 d/t E.cloacae in UCx -->stop date 03/19 No increasing white count and no fever and no chills Cough and shortness of breath have been improving, patient on room air 03/12 blood cultureno growth so far, follow-up final results. Palliative care on board for goals of care as per request from the [id number] - hospice/palliative was discussed as possible option - Plan for family meeting on Friday Has had speech evaluation Recommended aspiration precaution during feeding If the condition persist will need to have a formal barium swallow down the line Hypoxia Pulm Edema - mild Left Plueal Effusion - Small Patient presenting from home with reports of shortness of breath associated with cough and wheezing October 2019 ECHO was a poor qualitygrossly normal LV function. Patient requiring on 2 L nasal cannula oxygen at presentation and on and off. Likely secondary to pneumonia and pulmonary edema 03/14 CXR: Mild pulmonary edema. Possible small left pleural effusion. 03/14 IV dose of Lasix, use Lasix as needed, strict I's and O's. Continue to monitor pleural effusion and pulmonary edema. Use supplemental oxygen as needed and nebulization as needed. --> Patient is improved clinically. 03/12 Zosyn to Augmentin 03/14 --->levaquin 03/15, stop date 03/19 CAUTI: Chronic indwelling Romeo catheter History of recurrent UTIs. Patient overdue for follow-up with urology---> Alexandrea BETANCOURT to arrange for outpatient follow-up for management of her chronic Romeo. UA was suggestive of infection, 03/12 urine culturepansensitive E. coli and GNB, f/u final result. Patient completed Levaquin CMT (Ezkqqmw-Cmhzy-Dzyty disease): S/p multiple lower extremity procedures, most recently s/p left knee closed reduction total knee arthroplasty subluxation on 02/16/2021 - patient is to remain nonweightbearing of the left lower extremity and limited weightbearing on the right lower extremity She has been almost bedbound Abnormal Left ankle XR Patient complaining of multiple joint pain, more on the left leg 03/15 x-ray left ankle: A 1.8 cm linear ossific density posterior to the talus may represent an avulsion fracture from the dorsal calcaneus. Clinical correlation will be essential. Orthopedic consulted for left calcaneal superior posterior avulsion fracture status post fall: High tide walking boot removed, replaced with a dorsiflexion splint with a negative relief under the left heel and lambs wool padding to provide essentially neutral support for neutral dorsiflexion of the left ankle and heel and foot. Orthopedic recommending may use the walking boot for transfers or ambulating and wheelchair as necessary. Follow-up with [place]opedics[place] [facility] [place] disease: Continue carbidopa-levodopa No acute tremor she is slow in response and activities Chronic pain: Continue home regimen She has had recent dislocation of the left knee which is repositioned during her last hospital stay and she is not having any acute symptoms from that She was evaluated by pain therapist during her recent admission and no further recommendations were given DVT prophylaxis: SQ Lovenox Disposition: questionable at this time, CM and palliative medicine following. family meeting on Friday Admission and Anticipated Discharge Date Admission Date: March 12, 2021 Subjective Patient initially admitted for UTI and pneumonia, then later in her hospital stay, she was a stroke alert, however brain MRI negative Lately patient has been more confused, paranoid, psychiatry was also consulted and is closely involved Currently pt is laying in bed in NAD She is awake alert and answers more appropriately Per nursing staff, pt is more appropriate as well Denies chest pain, shortness of breath, headache, abd. amaro, n/v Review of Systems Review of Systems: All systems reviewed & are unremarkable except as noted in Subjective Physical Exam Physical Exam: Gen: WD/WN, F, chronically ill appearing, NAD, A&O x3 HEENT: NC/AT. EOMI. conjunctivae moist, sclerae anicteric, mucous membranes moist. Lung: Clear to Auscultation bilaterally, no wheezes/rales/rhonchi Heart: Regular rate, regular rhythm, no murmurs, rubs, or gallops Abdomen: Soft, NT, ND +BS x 4 Extremities: b/l cam boots to RLE, leslie bandage to LLE foot, hand contractures left sided weakness (from hx of polio) Neuro: Alert oriented answering simple questions appropriately, speech is slow. However gets confused easily. Slightly flattening of Nasio labial fold on left, hand contractures left sided weakness (from hx of polio) Skin: Warm, no rash, negative turgor. : +Romeo cath Results & Data Results & Data ([facility]) Vital Signs (Past 12 Hours) Vital Signs Temp Pulse Resp BP Pulse Ox 03/24/21 19:25 77 18 147/84 H 95 Laboratory Results 03/24/21 Range/Units 05:09 Sodium 136 (136-145) mmol/L Potassium 3.4 L (3.5-5.1) mmol/L Chloride 106 (98-107) mmol/L Carbon Dioxide 23 (21-32) mmol/L Anion Gap 7.0 (3-11) BUN 10 (7-18) mg/dl Creatinine 0.60 (0.6-1.2) mg/dl Est Cr Clr Drug Dosing 80.3 ml/min Est GFR ( Amer) 103.3 ml/min Est GFR (Non-Af Amer) 89.2 ml/min BUN/Creatinine Ratio 17.5 (10-20) Glucose 91 (70-99) mg/dl Calcium 9.5 (8.5-10.1) mg/dl Medications Administered Current Inpatient Medications Acetaminophen (Acetaminophen 325 Mg Tab) 650 mg PO Q4H PRN PRN Reason: pain/fever Stop: 04/11/21 16:59 Last Admin: 03/21/21 21:54 Dose: 650 mg Documented by: Albuterol (Albuterol 0.5% Neb Soln 2.5 Mg/0.5 Ml Vial) 2.5 mg NEB Q6R PRN PRN Reason: wheezing, SOB Stop: 04/13/21 18:59 Last Admin: 03/19/21 09:50 Dose: 2.5 mg Documented by: Albuterol (Albut/Ipratrop 3mg/0.5mg Neb 3 Ml Vial) 3 ml NEB Q4R PRN PRN Reason: Shortness Of Breath Or Wheezing Stop: 04/11/21 18:59 Last Admin: 03/22/21 21:02 Dose: 3 ml Documented by: Amlodipine Besylate (Amlodipine Besylate 5 Mg Tab) 5 mg PO QAM MARIBELL Stop: 04/22/21 12:14 Last Admin: 03/24/21 08:00 Dose: 5 mg Documented by: Aspirin (Aspirin 81 Mg Ectab) 81 mg PO DAILY MARIBELL Stop: 04/12/21 08:59 Last Admin: 03/23/21 09:08 Dose: 81 mg Documented by: Carbidopa/Levodopa (Carbidopa/Levodopa 25/100mg Tab) 1 tab PO TID MARIBELL Stop: 04/11/21 20:59 Last Admin: 03/24/21 19:30 Dose: 1 tab Documented by: Diclofenac Sodium (Diclofenac Sod 1% Gel 100 Gm Tube) 2 gm EXT Q6 MARIBELL Stop: 04/13/21 15:29 Last Admin: 03/25/21 04:59 Dose: 2 gm Documented by: Docusate Sodium (Docusate Sodium 100 Mg Cap) 100 mg PO DAILY PRN PRN Reason: Constipation Stop: 04/11/21 16:59 Last Admin: 03/18/21 08:07 Dose: 100 mg Documented by: Ezetimibe (Ezetimibe 10 Mg Tablet) 10 mg PO HS MARIBELL Stop: 04/11/21 20:59 Last Admin: 03/24/21 19:30 Dose: 10 mg Documented by: Enoxaparin Sodium (Enoxaparin Inj 40 Mg/0.4 Ml Syr) 40 mg SQ Q24H MARIBELL Stop: 04/11/21 16:59 Last Admin: 03/24/21 19:31 Dose: 40 mg Documented by: Ferrous Sulfate (Ferrous Sulfate 325 Mg Tab) 325 mg PO DAILY@1100 MARIBELL Stop: 04/12/21 10:59 Last Admin: 03/24/21 11:40 Dose: 325 mg Documented by: Gabapentin (Gabapentin 100 Mg Cap) 200 mg PO TID MARIBELL Stop: 04/22/21 20:59 Last Admin: 03/24/21 19:31 Dose: 200 mg Documented by: Haloperidol Lactate (Haloperidol Lactate 5 Mg/Ml 1 Ml Vial) 1 mg IV Q6 PRN PRN Reason: Anxiety/Agitation Stop: 04/23/21 12:15 Lactase (Lactase 3000 Unit Tab) 3,000 units PO AC MARIBELL Stop: 04/11/21 16:59 Last Admin: 03/24/21 16:21 Dose: 3,000 units Documented by: Lactobacillus Acidoph/Casei/Rhamnos (Advanced Probiotic 1250 Mg Capsule) 2 cap PO DAILY MARIBELL Stop: 04/14/21 14:29 Last Admin: 03/24/21 08:01 Dose: 2 cap Documented by: Lamotrigine (Lamotrigine 25 Mg Tab) 75 mg PO HS MARIBELL Stop: 04/11/21 20:59 Last Admin: 03/24/21 19:30 Dose: 75 mg Documented by: Lidocaine (Lidocaine 5% 1 Patch) 1 patch TD DAILY MARIBELL Stop: 04/12/21 08:59 Last Admin: 03/24/21 08:01 Dose: 1 patch Documented by: Meloxicam (Meloxicam 7.5 Mg Tab) 7.5 mg PO DAILY MARIBELL Stop: 04/12/21 08:59 Last Admin: 03/20/21 08:46 Dose: 7.5 mg Documented by: Miscellaneous (Toviaz-Order Awaiting Action) 1 ea N/A QS MARIBELL Stop: 04/12/21 00:00 Last Admin: 03/24/21 22:17 Dose: Not Given Documented by: Miscellaneous (Remove Lidoderm Patch) 1 ea N/A HS MARIBELL Stop: 04/11/21 20:59 Last Admin: 03/24/21 19:32 Dose: Not Given Documented by: Miscellaneous Information (Pharmacist Discharge Med Rec Consult) 1 ea N/A UD PRN PRN Reason: Consult Stop: 04/20/21 00:49 Pantoprazole Sodium (Pantoprazole 40 Mg Tab) 40 mg PO DAILY MARIBELL Stop: 04/12/21 08:59 Last Admin: 03/24/21 08:02 Dose: 40 mg Documented by: Polyethylene Glycol (Polyethylene (Miralax) 17 Gm Pack) 17 gm PO DAILY PRN PRN Reason: Constipation Stop: 04/11/21 16:59 Last Admin: 03/18/21 08:07 Dose: 17 gm Documented by: Potassium Chloride (Potassium Chloride 10 Meq Tabcr) 10 meq PO BID MARIBELL Stop: 04/11/21 20:59 Last Admin: 03/24/21 19:35 Dose: 10 meq Documented by: Risperidone (Risperidone 0.5 Mg Tablet) 0.25 mg PO BID MARIBELL Stop: 04/23/21 15:24 Last Admin: 03/24/21 19:29 Dose: 0.25 mg Documented by: Tramadol HCl (Tramadol Hcl 50 Mg Tablet) 50 mg PO BID PRN PRN Reason: Pain Stop: 04/11/21 16:59 Last Admin: 03/23/21 09:05 Dose: 50 mg Documented by: Zolpidem Tartrate (Zolpidem Tartrate 5 Mg Tab) 5 mg PO HS PRN PRN Reason: Sleep Stop: 04/21/21 21:50
[2021-03-25] MEDS: risperiDONE 0.5 MG TABLET PO SCH ×2 (07:39→21:50)
[2021-03-25] MEDS: POTASSIUM CHLORIDE 10 MEQ TABCR PO SCH ×2 (07:39→21:48)
[2021-03-25] MEDS: PANTOprazole 40 MG TAB PO SCH (07:39)
[2021-03-25] MEDS: FERROUS SULFATE 325 MG TAB PO SCH (07:39)
[2021-03-25] MEDS: ASPIRIN 81 MG ECTAB PO SCH (07:40)
[2021-03-25] MEDS: GABAPENTIN 100 MG CAP PO SCH ×3 (07:40→21:50)
[2021-03-25] MEDS: ADVANCED PROBIOTIC 1250 MG CAPSULE PO SCH (07:40)
[2021-03-25] MEDS: LACTASE 3000 UNIT TAB PO SCH ×3 (07:40→19:25)
[2021-03-25] MEDS: CARBIDOPA/LEVODOPA 25/100MG TAB PO SCH ×3 (07:40→21:50)
[2021-03-25] MEDS: amLODIPine BESYLATE 5 MG TAB PO SCH (07:40)
[2021-03-25] MEDS: LIDOCAINE 5% 1 PATCH TD SCH (07:40)
[2021-03-25 09:03] LABS: Hematocrit (blood only) 38.2 % (37-47); Hemoglobin 12.1 g/dL (12.0-16.0); Mean Corpuscular Hemoglobin 27.6 pg (25-34); Mean Corpuscular Hgb Conc 31.7 g/dL (32-36); Mean Corpuscular Volume 87.2 fL (80-100); Mean Platelet Volume 10.3 fL (7.4-10.4); Platelet Count 200 K/uL (130-400); RDW Coefficient of Variation 14.7 % (11.5-14.5); RDW Standard Deviation 47.1 fL (36.4-46.3); Red Blood Count 4.38 M/uL (4.2-5.4); White Blood Count 7.06 K/uL (4.8-10.8)
[2021-03-25 09:23] LABS: BUN Creatinine Ratio 18.6 (10-20); Calcium 9.2 mg/dl (8.5-10.1); Creatinine Clr Calc Pharmacy 58.4 ml/min; Est GFR (African American) 81.1 ml/min; Magnesium 1.9 mg/dl (1.8-2.4); Potassium 3.4 mmol/L (3.5-5.1)
[2021-03-25 09:39] LABS: Phosphorus 4.2 mg/dl (2.5-4.9)
--- NOTE | 2021-03-25 12:25 | Psychiatric Progress Note ---
Date of Service March 25, 2021 Impression / Recommendations Impression 76 yo female with history of paranoid ideations related to cognitive decline now with superimposed delirium resulting in worsening hallucinations and delusions. Started Risperdal 03/24/21. 03/25/21: some drooling but no evidence of worsening muscle tone or bradykinesia. 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 03/24/21: Patient expressed a preference for tabs rather than mtab which hadn't started yet. Will admin Risperdal 0.25 mg now and again this hs and monitor. She does not present with significant tremor at baseline, likely more bradykinesia p resentation of her Parkinsons but will watch for worsening muscle rigidity. 03/23/21: Case reviewed briefly with Dr. Steen, reviewed labs, QTc, med list. Patient is on Sinemet for Parkinson's, will not hold for now as worsening mainly delirium but certainly can contribute to psychosis, especially georges. Recommend starting Risperdal M tab 0.25 mg this hs with likely titration, son supports this as designated family medical decision maker. If she refuses, if on playground monitor would suggest Haldol 1 mg q4-6 prn IV. Risk Factors Assessment Do You Have Access To A Gun?: No Interval History Identifying Information Mrs. Maxwell is a 76 yo female from [place], admit on 03/16/21 for pneumonia and UTI. [facility]. Chief Complaint "I'm afraid to touch my phone because they are still deleting messages". Review of Systems Notes patient reports some HALL, generalized pain, same contracture left hand limiting her ability to use phone/remotes Subjective Subjective Patient was seen & assessed, interval history reviewed. Tolerating Risperdal so far though notes new onset of minor drooling. No new nursing concerns overnight. She reports sleeping "the best I have in a while" last night but also visited with family yesterday. Apparently sent texts to her daughter in law today that were more appropriate and had a better conversation with son (per son). Physical Exam Psychiatric Orientation: alert, oriented to person and cooperative Apperance: appropriately groomed Eye Contact: + fair eye contact Motor Behavior: no abnormal motor movements Speech: normal rate/rhythm/volume of speech (soft at times and slow but did call out due to paranoia) Affect: + constricted affect Mood: + depressed mood Thought Process: + looseness of associations Thought Content: + paranoid (would only speak with door shut) and + delusions Suicidal Thoughts: denies suicidal thoughts Homicidal Thoughts: denies homicidal thoughts Hallucinations: no auditory hallucinations and no visual hallucinations (though responds to stimuli in hallway) Cognition: attention grossly intact and language grossly intact Estimated Intelligence: consistent with education level Insight: + severely impaired insight Judgement: + severely impaired judgement Vital Signs (Past 24 Hours) Last Vital Signs Temp 36.6 C 03/25/21 08:00 Pulse 78 03/25/21 10:42 Resp 18 03/25/21 08:00 BP 148/84 H 03/25/21 08:00 Pulse Ox 96 03/25/21 08:00 Results & Data ([facility]) Laboratory Results Laboratory Results - last 24 hr 03/25/21 03/25/21 08:51 08:51 WBC 7.06 RBC 4.38 Hgb 12.1 Hct 38.2 MCV 87.2 MCH 27.6 MCHC 31.7 L RDW Std Deviation 47.1 H RDW Coeff of Tsering 14.7 H Plt Count 200 MPV 10.3 Sodium 140 Potassium 3.4 L Chloride 108 H Carbon Dioxide 21 Anion Gap 12.0 H BUN 15 Creatinine 0.82 Est Cr Clr Drug Dosing 58.4 Est GFR ( Amer) 81.1 Est GFR (Non-Af Amer) 70.0 BUN/Creatinine Ratio 18.6 Glucose 132 H Calcium 9.2 Phosphorus 4.2 Magnesium 1.9 Current Inpatient Medications Current Inpatient Medications: Current Inpatient Medications Acetaminophen (Acetaminophen 325 Mg Tab) 650 mg PO Q4H PRN PRN Reason: pain/fever Stop: 04/11/21 16:59 Last Admin: 03/21/21 21:54 Dose: 650 mg Documented by: Albuterol (Albuterol 0.5% Neb Soln 2.5 Mg/0.5 Ml Vial) 2.5 mg NEB Q6R PRN PRN Reason: wheezing, SOB Stop: 04/13/21 18:59 Last Admin: 03/19/21 09:50 Dose: 2.5 mg Documented by: Albuterol (Albut/Ipratrop 3mg/0.5mg Neb 3 Ml Vial) 3 ml NEB Q4R PRN PRN Reason: Shortness Of Breath Or Wheezing Stop: 04/11/21 18:59 Last Admin: 03/22/21 21:02 Dose: 3 ml Documented by: Amlodipine Besylate (Amlodipine Besylate 5 Mg Tab) 5 mg PO QAM MARIBELL Stop: 04/22/21 12:14 Last Admin: 03/25/21 07:40 Dose: 5 mg Documented by: Aspirin (Aspirin 81 Mg Ectab) 81 mg PO DAILY [facility] Stop: 04/12/21 08:59 Last Admin: 03/25/21 07:40 Dose: 81 mg Documented by: Carbidopa/Levodopa (Carbidopa/Levodopa 25/100mg Tab) 1 tab PO TID MARIBELL Stop: 04/11/21 20:59 Last Admin: 03/25/21 07:40 Dose: 1 tab Documented by: Diclofenac Sodium (Diclofenac Sod 1% Gel 100 Gm Tube) 2 gm EXT Q6 MARIBELL Stop: 04/13/21 15:29 Last Admin: 03/25/21 04:59 Dose: 2 gm Documented by: Docusate Sodium (Docusate Sodium 100 Mg Cap) 100 mg PO DAILY PRN PRN Reason: Constipation Stop: 04/11/21 16:59 Last Admin: 03/18/21 08:07 Dose: 100 mg Documented by: Ezetimibe (Ezetimibe 10 Mg Tablet) 10 mg PO HS [facility] Stop: 04/11/21 20:59 Last Admin: 03/24/21 19:30 Dose: 10 mg Documented by: Enoxaparin Sodium (Enoxaparin Inj 40 Mg/0.4 Ml Syr) 40 mg SQ Q24H MARIBELL Stop: 04/11/21 16:59 Last Admin: 03/24/21 19:31 Dose: 40 mg Documented by: Ferrous Sulfate (Ferrous Sulfate 325 Mg Tab) 325 mg PO DAILY@1100 [facility] Stop: 04/12/21 10:59 Last Admin: 03/25/21 07:39 Dose: 325 mg Documented by: Gabapentin (Gabapentin 100 Mg Cap) 200 mg PO TID [facility] Stop: 04/22/21 20:59 Last Admin: 03/25/21 07:40 Dose: 200 mg Documented by: Haloperidol Lactate (Haloperidol Lactate 5 Mg/Ml 1 Ml Vial) 1 mg IV Q6 PRN PRN Reason: Anxiety/Agitation Stop: 04/23/21 12:15 Lactase (Lactase 3000 Unit Tab) 3,000 units PO AC MARIBELL Stop: 04/11/21 16:59 Last Admin: 03/25/21 07:40 Dose: 3,000 units Documented by: Lactobacillus Acidoph/Casei/Rhamnos (Advanced Probiotic 1250 Mg Capsule) 2 cap PO DAILY MARIBELL Stop: 04/14/21 14:29 Last Admin: 03/25/21 07:40 Dose: 2 cap Documented by: Lamotrigine (Lamotrigine 25 Mg Tab) 75 mg PO HS MARIBELL Stop: 04/11/21 20:59 Last Admin: 03/24/21 19:30 Dose: 75 mg Documented by: Lidocaine (Lidocaine 5% 1 Patch) 1 patch TD DAILY MARIBELL Stop: 04/12/21 08:59 Last Admin: 03/25/21 07:40 Dose: 1 patch Documented by: Meloxicam (Meloxicam 7.5 Mg Tab) 7.5 mg PO DAILY MARIBELL Stop: 04/12/21 08:59 Last Admin: 03/20/21 08:46 Dose: 7.5 mg Documented by: Miscellaneous (Toviaz-Order Awaiting Action) 1 ea N/A QS MARIBELL Stop: 04/12/21 00:00 Last Admin: 03/25/21 07:20 Dose: Not Given Documented by: Miscellaneous (Remove Lidoderm Patch) 1 ea N/A HS MARIBELL Stop: 04/11/21 20:59 Last Admin: 03/24/21 19:32 Dose: Not Given Documented by: Miscellaneous Information (Pharmacist Discharge Med Rec Consult) 1 ea N/A UD PRN PRN Reason: Consult Stop: 04/20/21 00:49 Pantoprazole Sodium (Pantoprazole 40 Mg Tab) 40 mg PO DAILY MARIBELL Stop: 04/12/21 08:59 Last Admin: 03/25/21 07:39 Dose: 40 mg Documented by: Polyethylene Glycol (Polyethylene (Miralax) 17 Gm Pack) 17 gm PO DAILY PRN PRN Reason: Constipation Stop: 04/11/21 16:59 Last Admin: 03/18/21 08:07 Dose: 17 gm Documented by: Potassium Chloride (Potassium Chloride 10 Meq Tabcr) 10 meq PO BID MARIBELL Stop: 04/11/21 20:59 Last Admin: 03/25/21 07:39 Dose: 10 meq Documented by: Risperidone (Risperidone 0.5 Mg Tablet) 0.25 mg PO BID MARIBLEL Stop: 04/23/21 15:24 Last Admin: 03/25/21 07:39 Dose: 0.25 mg Documented by: Tramadol HCl (Tramadol Hcl 50 Mg Tablet) 50 mg PO BID PRN PRN Reason: Pain Stop: 04/11/21 16:59 Last Admin: 03/23/21 09:05 Dose: 50 mg Documented by: Zolpidem Tartrate (Zolpidem Tartrate 5 Mg Tab) 5 mg PO HS PRN PRN Reason: Sleep Stop: 04/21/21 21:50
--- NOTE | 2021-03-25 14:18 | Hospitalist Progress Note ---
Date of Service March 25, 2021 Assessment & Plan (1) Pneumonia: (2) Catheter-associated urinary tract infection: Plan: Delirium, Paranoia, hallucinations - Pt w/ hx of paranoid ideations related to cognitive decline now with superimposed delirium -Patient becoming more confused, reports talking to present better than his -Per nursing staff, patient also calls and yells, calls 911 on her phone and her family frequently -Family concerned, discussed consultation with psychiatry -started on Risperdal, mental status improved and pt more appropriate Sroke Alert Patient was a stroke alert overnight (03/20-03/21) Likely TIA - involving the right hemisphere with left facial droop yet on imaging has no evidence for a completed event -there were no other significant abnormalities CT angiography studies of the neck or brain and echocardiogram is negative Brain imaging unremarkable Neurology consulted and evaluated patient - At this point do not have sufficient evidence to recommend adding Plavix to her aspirin but will observe her for recurrent events and if they do enlarge then certainly would add another antiplatelet agent Recommend to continue aspirin 81 mg daily, and 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 Fields Pneumonia Has bibasilar infiltration more on the right could be secondary to aspiration versus HCAP Initial lactic acid 3.2---> 1.9, no other signs of sepsis. MRSA screen negative Zosyn 03/12 --> change to Augmentin 03/14 -->levaquin 03/15 d/t E.cloacae in UCx -->stop date 03/19 No increasing white count and no fever and no chills Cough and shortness of breath have been improving, patient on room air 03/12 blood cultureno growth so far, follow-up final results. Palliative care on board for goals of care as per request from the [id number] - hospice/palliative was discussed as possible option - Plan for family meeting on Friday Has had speech evaluation Recommended aspiration precaution during feeding If the condition persist will need to have a formal barium swallow down the line Hypoxia Pulm Edema - mild Left Plueal Effusion - Small Patient presenting from home with reports of shortness of breath associated with cough and wheezing October 2019 ECHO was a poor qualitygrossly normal LV function. Patient requiring on 2 L nasal cannula oxygen at presentation and on and off. Likely secondary to pneumonia and pulmonary edema 03/14 CXR: Mild pulmonary edema. Possible small left pleural effusion. 03/14 IV dose of Lasix, use Lasix as needed, strict I's and O's. Continue to monitor pleural effusion and pulmonary edema. Use supplemental oxygen as needed and nebulization as needed. --> Patient is improved clinically. 03/12 Zosyn to Augmentin 03/14 --->levaquin 03/15, stop date 03/19 CAUTI: Chronic indwelling Romeo catheter History of recurrent UTIs. Patient overdue for follow-up with urology---> Alexandrea BETANCOURT to arrange for outpatient follow-up for management of her chronic Romeo. UA was suggestive of infection, 03/12 urine culturepansensitive E. coli and GNB, f/u final result. Patient completed Levaquin CMT (Clkqdez-Nxanq-Ahdkk disease): S/p multiple lower extremity procedures, most recently s/p left knee closed reduction total knee arthroplasty subluxation on 02/16/2021 - patient is to remain nonweightbearing of the left lower extremity and limited weightbearing on the right lower extremity She has been almost bedbound Abnormal Left ankle XR Patient complaining of multiple joint pain, more on the left leg 03/15 x-ray left ankle: A 1.8 cm linear ossific density posterior to the talus may represent an avulsion fracture from the dorsal calcaneus. Clinical correlation will be essential. Orthopedic consulted for left calcaneal superior posterior avulsion fracture status post fall: High tide walking boot removed, replaced with a dorsiflexion splint with a negative relief under the left heel and lambs wool padding to provide essentially neutral support for neutral dorsiflexion of the left ankle and heel and foot. Orthopedic recommending may use the walking boot for transfers or ambulating and wheelchair as necessary. Follow-up with [place]opedics. [place] [facility] [place] disease: Continue carbidopa-levodopa No acute tremor she is slow in response and activities Chronic pain: Continue home regimen She has had recent dislocation of the left knee which is repositioned during her last hospital stay and she is not having any acute symptoms from that She was evaluated by pain therapist during her recent admission and no further recommendations were given DVT prophylaxis: SQ Lovenox Disposition: questionable at this time, CM and palliative medicine following. family meeting on Friday Admission and Anticipated Discharge Date Admission Date: March 12, 2021 Subjective Patient initially admitted for UTI and pneumonia, then later in her hospital stay, she was a stroke alert, however brain MRI negative Lately patient has been more confused, paranoid, psychiatry was also consulted and is closely involved Currently pt is laying in bed in NAD She is awake alert and answers more appropriately Per nursing staff, pt is more appropriate as well Denies chest pain, shortness of breath, headache, abd. amaro, n/v Review of Systems Review of Systems: All systems reviewed & are unremarkable except as noted in Subjective Physical Exam Physical Exam: Gen: WD/WN, F, chronically ill appearing, NAD, A&O x3 HEENT: NC/AT. EOMI. conjunctivae moist, sclerae anicteric, mucous membranes moist. Lung: Clear to Auscultation bilaterally, no wheezes/rales/rhonchi Heart: Regular rate, regular rhythm, no murmurs, rubs, or gallops Abdomen: Soft, NT, ND +BS x 4 Extremities: b/l cam boots to RLE, leslie bandage to LLE foot, hand contractures left sided weakness (from hx of polio) Neuro: Alert oriented answering simple questions appropriately, speech is slow. However gets confused easily. Slightly flattening of Nasio labial fold on left, hand contractures left sided weakness (from hx of polio) Skin: Warm, no rash, negative turgor. : +Romeo cath Results & Data Results & Data ([facility]) Vital Signs (Past 12 Hours) Vital Signs Temp Pulse Pulse Resp BP Pulse Ox 03/25/21 10:42 78 03/25/21 08:00 36.6 C 78 18 148/84 H 96 03/25/21 04:11 36.4 C L 82 20 155/79 H 96 Laboratory Results 03/25/21 03/25/21 Range/Units 08:51 08:51 WBC 7.06 (4.8-10.8) K/uL RBC 4.38 (4.2-5.4) M/uL Hgb 12.1 (12.0-16.0) g/dL Hct 38.2 (37-47) % MCV 87.2 (80-100) fL MCH 27.6 (25-34) pg MCHC 31.7 L (32-36) g/dL RDW Std Deviation 47.1 H (36.4-46.3) fL RDW Coeff of Tsering 14.7 H (11.5-14.5) % Plt Count 200 (130-400) K/uL MPV 10.3 (7.4-10.4) fL Sodium 140 (136-145) mmol/L Potassium 3.4 L (3.5-5.1) mmol/L Chloride 108 H (98-107) mmol/L Carbon Dioxide 21 (21-32) mmol/L Anion Gap 12.0 H (3-11) BUN 15 (7-18) mg/dl Creatinine 0.82 (0.6-1.2) mg/dl Est Cr Clr Drug Dosing 58.4 ml/min Est GFR ( Amer) 81.1 ml/min Est GFR (Non-Af Amer) 70.0 ml/min BUN/Creatinine Ratio 18.6 (10-20) Glucose 132 H (70-99) mg/dl Calcium 9.2 (8.5-10.1) mg/dl Phosphorus 4.2 (2.5-4.9) mg/dl Magnesium 1.9 (1.8-2.4) mg/dl Medications Administered Current Inpatient Medications Acetaminophen (Acetaminophen 325 Mg Tab) 650 mg PO Q4H PRN PRN Reason: pain/fever Stop: 04/11/21 16:59 Last Admin: 03/21/21 21:54 Dose: 650 mg Documented by: Albuterol (Albuterol 0.5% Neb Soln 2.5 Mg/0.5 Ml Vial) 2.5 mg NEB Q6R PRN PRN Reason: wheezing, SOB Stop: 04/13/21 18:59 Last Admin: 03/19/21 09:50 Dose: 2.5 mg Documented by: Albuterol (Albut/Ipratrop 3mg/0.5mg Neb 3 Ml Vial) 3 ml NEB Q4R PRN PRN Reason: Shortness Of Breath Or Wheezing Stop: 04/11/21 18:59 Last Admin: 03/22/21 21:02 Dose: 3 ml Documented by: Amlodipine Besylate (Amlodipine Besylate 5 Mg Tab) 5 mg PO QAM [facility] Stop: 04/22/21 12:14 Last Admin: 03/25/21 07:40 Dose: 5 mg Documented by: Aspirin (Aspirin 81 Mg Ectab) 81 mg PO DAILY [facility] Stop: 04/12/21 08:59 Last Admin: 03/25/21 07:40 Dose: 81 mg Documented by: Carbidopa/Levodopa (Carbidopa/Levodopa 25/100mg Tab) 1 tab PO TID [facility] Stop: 04/11/21 20:59 Last Admin: 03/25/21 14:11 Dose: 1 tab Documented by: Diclofenac Sodium (Diclofenac Sod 1% Gel 100 Gm Tube) 2 gm EXT Q6 [facility] Stop: 04/13/21 15:29 Last Admin: 03/25/21 12:43 Dose: Not Given Documented by: Docusate Sodium (Docusate Sodium 100 Mg Cap) 100 mg PO DAILY PRN PRN Reason: Constipation Stop: 04/11/21 16:59 Last Admin: 03/18/21 08:07 Dose: 100 mg Documented by: Ezetimibe (Ezetimibe 10 Mg Tablet) 10 mg PO HS [facility] Stop: 04/11/21 20:59 Last Admin: 03/24/21 19:30 Dose: 10 mg Documented by: Enoxaparin Sodium (Enoxaparin Inj 40 Mg/0.4 Ml Syr) 40 mg SQ Q24H [facility] Stop: 04/11/21 16:59 Last Admin: 03/24/21 19:31 Dose: 40 mg Documented by: Ferrous Sulfate (Ferrous Sulfate 325 Mg Tab) 325 mg PO DAILY@1100 [facility] Stop: 04/12/21 10:59 Last Admin: 03/25/21 07:39 Dose: 325 mg Documented by: Gabapentin (Gabapentin 100 Mg Cap) 200 mg PO TID [facility] Stop: 04/22/21 20:59 Last Admin: 03/25/21 14:11 Dose: 200 mg Documented by: Haloperidol Lactate (Haloperidol Lactate 5 Mg/Ml 1 Ml Vial) 1 mg IV Q6 PRN PRN Reason: Anxiety/Agitation Stop: 04/23/21 12:15 Lactase (Lactase 3000 Unit Tab) 3,000 units PO AC [facility] Stop: 04/11/21 16:59 Last Admin: 03/25/21 12:40 Dose: 3,000 units Documented by: Lactobacillus Acidoph/Casei/Rhamnos (Advanced Probiotic 1250 Mg Capsule) 2 cap PO DAILY [facility] Stop: 04/14/21 14:29 Last Admin: 03/25/21 07:40 Dose: 2 cap Documented by: Lamotrigine (Lamotrigine 25 Mg Tab) 75 mg PO HS [facility] Stop: 04/11/21 20:59 Last Admin: 03/24/21 19:30 Dose: 75 mg Documented by: Lidocaine (Lidocaine 5% 1 Patch) 1 patch TD DAILY [facility] Stop: 04/12/21 08:59 Last Admin: 03/25/21 07:40 Dose: 1 patch Documented by: Meloxicam (Meloxicam 7.5 Mg Tab) 7.5 mg PO DAILY [facility] Stop: 04/12/21 08:59 Last Admin: 03/20/21 08:46 Dose: 7.5 mg Documented by: Miscellaneous (Toviaz-Order Awaiting Action) 1 ea N/A QS [facility] Stop: 04/12/21 00:00 Last Admin: 03/25/21 07:20 Dose: Not Given Documented by: Miscellaneous (Remove Lidoderm Patch) 1 ea N/A HS [facility] Stop: 04/11/21 20:59 Last Admin: 03/24/21 19:32 Dose: Not Given Documented by: Miscellaneous Information (Pharmacist Discharge Med Rec Consult) 1 ea N/A UD PRN PRN Reason: Consult Stop: 04/20/21 00:49 Pantoprazole Sodium (Pantoprazole 40 Mg Tab) 40 mg PO DAILY [facility] Stop: 04/12/21 08:59 Last Admin: 03/25/21 07:39 Dose: 40 mg Documented by: Polyethylene Glycol (Polyethylene (Miralax) 17 Gm Pack) 17 gm PO DAILY PRN PRN Reason: Constipation Stop: 04/11/21 16:59 Last Admin: 03/18/21 08:07 Dose: 17 gm Documented by: Potassium Chloride (Potassium Chloride 10 Meq Tabcr) 10 meq PO BID [facility] Stop: 04/11/21 20:59 Last Admin: 03/25/21 07:39 Dose: 10 meq Documented by: Risperidone (Risperidone 0.5 Mg Tablet) 0.25 mg PO BID [facility] Stop: 04/23/21 15:24 Last Admin: 03/25/21 07:39 Dose: 0.25 mg Documented by: Tramadol HCl (Tramadol Hcl 50 Mg Tablet) 50 mg PO BID PRN PRN Reason: Pain Stop: 04/11/21 16:59 Last Admin: 03/23/21 09:05 Dose: 50 mg Documented by: Zolpidem Tartrate (Zolpidem Tartrate 5 Mg Tab) 5 mg PO HS PRN PRN Reason: Sleep Stop: 04/21/21 21:50
[2021-03-25] MEDS: ACETAMINOPHEN 325 MG TAB PO PRN (19:34)
[2021-03-25] MEDS: lamoTRIgine 25 MG TAB PO SCH (21:48)
[2021-03-25] MEDS: EZETIMIBE 10 MG TABLET PO SCH (21:49)
[2021-03-25] MEDS: ENOXAPARIN INJ 40 MG/0.4 ML SYR SQ SCH (21:50)
[2021-03-26] MEDS: ZOLPIDEM TARTRATE 5 MG TAB PO PRN ×2 (00:41→22:15)
[2021-03-26] MEDS: DICLOFENAC SOD 1% GEL 100 GM TUBE EXT SCH ×5 (00:42→22:57)
[2021-03-26] MEDS: LACTASE 3000 UNIT TAB PO SCH ×3 (08:17→18:59)
[2021-03-26] MEDS: amLODIPine BESYLATE 5 MG TAB PO SCH (08:17)
[2021-03-26] MEDS: CARBIDOPA/LEVODOPA 25/100MG TAB PO SCH ×3 (08:18→22:10)
[2021-03-26] MEDS: ASPIRIN 81 MG ECTAB PO SCH (08:18)
[2021-03-26] MEDS: GABAPENTIN 100 MG CAP PO SCH ×3 (08:18→22:10)
[2021-03-26] MEDS: ADVANCED PROBIOTIC 1250 MG CAPSULE PO SCH (08:19)
[2021-03-26] MEDS: risperiDONE 0.5 MG TABLET PO SCH ×2 (08:19→22:09)
[2021-03-26] MEDS: PANTOprazole 40 MG TAB PO SCH (08:19)
[2021-03-26] MEDS: POTASSIUM CHLORIDE 10 MEQ TABCR PO SCH ×2 (08:25→22:10)
[2021-03-26 08:57] LABS: Hematocrit (blood only) 39.4 % (37-47); Hemoglobin 12.9 g/dL (12.0-16.0); Mean Corpuscular Hemoglobin 29.1 pg (25-34); Mean Corpuscular Hgb Conc 32.7 g/dL (32-36); Mean Corpuscular Volume 88.9 fL (80-100); Platelet Count 134 K/uL (130-400); RDW Coefficient of Variation 14.8 % (11.5-14.5); Red Blood Count 4.43 M/uL (4.2-5.4); White Blood Count 6.29 K/uL (4.8-10.8)
[2021-03-26 09:25] LABS: BUN Creatinine Ratio 20.4 (10-20); Calcium 8.9 mg/dl (8.5-10.1); Creatinine Clr Calc Pharmacy 65.6 ml/min; Est GFR (African American) 93.4 ml/min; Est GFR (Non-African American) 80.6 ml/min
[2021-03-26 10:22] LABS: Potassium 3.8 mmol/L (3.5-5.1)
[2021-03-26 10:25] LABS: Magnesium 1.7 mg/dl (1.8-2.4)
--- NOTE | 2021-03-26 10:40 | Psychiatric Progress Note ---
Date of Service March 26, 2021 Impression / Recommendations Impression 76 yo female with history of paranoid ideations related to cognitive decline now with superimposed delirium resulting in worsening hallucinations and delusions. Started Risperdal 03/24/21. 03/26/21: some mild drooling but no evidence of worsening muscle tone or bradykinesia. Paranoia present at times but seems to be improving from admission. No evidence of hallcuinations today. 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 03/25/21: Continue Risperdal 0.25 mg BID, son aware of drooling and prefers to wait a few days to adjust rather than shift now to hs as he is pleased with improvement. 03/24/21: Patient expressed a preference for tabs rather than mtab which hadn't started yet. Will admin Risperdal 0.25 mg now and again this hs and monitor. She does not present with significant tremor at baseline, likely more bradykinesia presentation of her Parkinsons but will watch for worsening muscle rigidity. 03/23/21: Case reviewed briefly with Dr. Steen, reviewed labs, QTc, med list. Patient is on Sinemet for Parkinson's, will not hold for now as worsening mainly delirium but certainly can contribute to psychosis, especially georges. Recommend starting Risperdal M tab 0.25 mg this hs with likely titration, son supports this as designated family medical decision maker. If she refuses, if on surveillance system monitor would suggest Haldol 1 mg q4-6 prn IV. Risk Factors Assessment Do You Have Access To A Gun?: No Interval History Identifying Information Mrs. Maxwell is a 76 yo female from [place], admitted on 03/16/21 for pneumonia and UTI. [facility] for paranoia and hallucinations. Chief Complaint "I'm worried about my ". Review of Systems Notes Reports good sleep last night, stable appetite. Subjective Subjective Patient was seen & assessed and interval progress reviewed. This morning she reported some anxiety about how her has been doing at home. She called him on her cell phone and was reassured that he was feeling well. Later in the afternoon stopped in again and she reported some foot pain but otherwise stable mood. Was reality-based about topics including TV shows and discussing her lunch but then did note some paranoia about fears that maintenance staff were taking things from her garbage, that someone might be listening through her cellphone and voiced concerns that previously someone placed a label on her room door stating she had an STI but did not perseverate about any of this topics. Remains cooperative and pleasant. Physical Exam Psychiatric Orientation: alert, oriented to person, oriented to place and cooperative Apperance: appropriately groomed Eye Contact: + fair eye contact Motor Behavior: no abnormal motor movements; n EPS Speech: normal rate/rhythm/volume of speech (soft at times ) Affect: + constricted affect Mood: + anxious mood Thought Process: + circumstantial thought process and + looseness of associations Thought Content: + paranoid (would only speak with door shut) and + delusions Suicidal Thoughts: denies suicidal thoughts Homicidal Thoughts: denies homicidal thoughts Hallucinations: no auditory hallucinations and no visual hallucinations Cognition: attention grossly intact and language grossly intact Estimated Intelligence: consistent with education level Insight: + limited insight Judgement: + limited judgement Vital Signs (Past 24 Hours) Last Vital Signs Temp 36.3 C L 03/26/21 07:53 Pulse 70 03/26/21 07:53 Resp 17 03/26/21 07:53 BP 129/78 03/26/21 07:53 Pulse Ox 98 03/26/21 07:53 Results & Data ([facility]) Laboratory Results Laboratory Results - last 24 hr 03/26/21 03/26/21 03/26/21 08:43 08:43 09:50 WBC 6.29 RBC 4.43 Hgb 12.9 Hct 39.4 MCV 88.9 MCH 29.1 MCHC 32.7 RDW Std Deviation 48.0 H RDW Coeff of Tsering 14.8 H Plt Count 134 MPV 10.0 Sodium 140 Potassium 3.8 Chloride 110 H Carbon Dioxide 19 L Anion Gap 11.0 BUN 15 Creatinine 0.73 Est Cr Clr Drug Dosing 65.6 Est GFR ( Amer) 93.4 Est GFR (Non-Af Amer) 80.6 BUN/Creatinine Ratio 20.4 H Glucose 82 Calcium 8.9 Phosphorus 4.0 Magnesium 1.7 L Specimen Hemolysis Current Inpatient Medications Current Inpatient Medications: Current Inpatient Medications Acetaminophen (Acetaminophen 325 Mg Tab) 650 mg PO Q4H PRN PRN Reason: pain/fever Stop: 04/11/21 16:59 Last Admin: 03/25/21 19:34 Dose: 650 mg Documented by: Albuterol (Albuterol 0.5% Neb Soln 2.5 Mg/0.5 Ml Vial) 2.5 mg NEB Q6R PRN PRN Reason: wheezing, SOB Stop: 04/13/21 18:59 Last Admin: 03/19/21 09:50 Dose: 2.5 mg Documented by: Albuterol (Albut/Ipratrop 3mg/0.5mg Neb 3 Ml Vial) 3 ml NEB Q4R PRN PRN Reason: Shortness Of Breath Or Wheezing Stop: 04/11/21 18:59 Last Admin: 03/22/21 21:02 Dose: 3 ml Documented by: Amlodipine Besylate (Amlodipine Besylate 5 Mg Tab) 5 mg PO QAM [facility] Stop: 04/22/21 12:14 Last Admin: 03/26/21 08:17 Dose: 5 mg Documented by: Aspirin (Aspirin 81 Mg Ectab) 81 mg PO DAILY [facility] Stop: 04/12/21 08:59 Last Admin: 03/26/21 08:18 Dose: 81 mg Documented by: Carbidopa/Levodopa (Carbidopa/Levodopa 25/100mg Tab) 1 tab PO TID [facility] Stop: 04/11/21 20:59 Last Admin: 03/26/21 08:18 Dose: 1 tab Documented by: Diclofenac Sodium (Diclofenac Sod 1% Gel 100 Gm Tube) 2 gm EXT Q6 [facility] Stop: 04/13/21 15:29 Last Admin: 03/26/21 06:24 Dose: Not Given Documented by: Docusate Sodium (Docusate Sodium 100 Mg Cap) 100 mg PO DAILY PRN PRN Reason: Constipation Stop: 04/11/21 16:59 Last Admin: 03/18/21 08:07 Dose: 100 mg Documented by: Ezetimibe (Ezetimibe 10 Mg Tablet) 10 mg PO HS [facility] Stop: 04/11/21 20:59 Last Admin: 03/25/21 21:49 Dose: 10 mg Documented by: Enoxaparin Sodium (Enoxaparin Inj 40 Mg/0.4 Ml Syr) 40 mg SQ Q24H [facility] Stop: 04/11/21 16:59 Last Admin: 03/25/21 21:50 Dose: 40 mg Documented by: Ferrous Sulfate (Ferrous Sulfate 325 Mg Tab) 325 mg PO DAILY@1100 [facility] Stop: 04/12/21 10:59 Last Admin: 03/25/21 07:39 Dose: 325 mg Documented by: Gabapentin (Gabapentin 100 Mg Cap) 200 mg PO TID [facility] Stop: 04/22/21 20:59 Last Admin: 03/26/21 08:18 Dose: 200 mg Documented by: Haloperidol Lactate (Haloperidol Lactate 5 Mg/Ml 1 Ml Vial) 1 mg IV Q6 PRN PRN Reason: Anxiety/Agitation Stop: 04/23/21 12:15 Lactase (Lactase 3000 Unit Tab) 3,000 units PO AC [facility] Stop: 04/11/21 16:59 Last Admin: 03/26/21 08:17 Dose: 3,000 units Documented by: Lactobacillus Acidoph/Casei/Rhamnos (Advanced Probiotic 1250 Mg Capsule) 2 cap PO DAILY [facility] Stop: 04/14/21 14:29 Last Admin: 03/26/21 08:19 Dose: 2 cap Documented by: Lamotrigine (Lamotrigine 25 Mg Tab) 75 mg PO HS [facility] Stop: 04/11/21 20:59 Last Admin: 03/25/21 21:48 Dose: 75 mg Documented by: Lidocaine (Lidocaine 5% 1 Patch) 1 patch TD DAILY [facility] Stop: 04/12/21 08:59 Last Admin: 03/25/21 07:40 Dose: 1 patch Documented by: Meloxicam (Meloxicam 7.5 Mg Tab) 7.5 mg PO DAILY [facility] Stop: 04/12/21 08:59 Last Admin: 03/20/21 08:46 Dose: 7.5 mg Documented by: Miscellaneous (Toviaz-Order Awaiting Action) 1 ea N/A QS [facility] Stop: 04/12/21 00:00 Last Admin: 03/26/21 08:17 Dose: Not Given Documented by: Miscellaneous (Remove Lidoderm Patch) 1 ea N/A HS [facility] Stop: 04/11/21 20:59 Last Admin: 03/25/21 21:46 Dose: 1 ea Documented by: Miscellaneous Information (Pharmacist Discharge Med Rec Consult) 1 ea N/A UD PRN PRN Reason: Consult Stop: 04/20/21 00:49 Pantoprazole Sodium (Pantoprazole 40 Mg Tab) 40 mg PO DAILY [facility] Stop: 04/12/21 08:59 Last Admin: 03/26/21 08:19 Dose: 40 mg Documented by: Polyethylene Glycol (Polyethylene (Miralax) 17 Gm Pack) 17 gm PO DAILY PRN PRN Reason: Constipation Stop: 04/11/21 16:59 Last Admin: 03/18/21 08:07 Dose: 17 gm Documented by: Potassium Chloride (Potassium Chloride 10 Meq Tabcr) 10 meq PO BID [facility] Stop: 04/11/21 20:59 Last Admin: 03/26/21 08:25 Dose: 10 meq Documented by: Risperidone (Risperidone 0.5 Mg Tablet) 0.25 mg PO BID [facility] Stop: 04/23/21 15:24 Last Admin: 03/26/21 08:19 Dose: 0.25 mg Documented by: Tramadol HCl (Tramadol Hcl 50 Mg Tablet) 50 mg PO BID PRN PRN Reason: Pain Stop: 04/11/21 16:59 Last Admin: 03/23/21 09:05 Dose: 50 mg Documented by: Zolpidem Tartrate (Zolpidem Tartrate 5 Mg Tab) 5 mg PO HS PRN PRN Reason: Sleep Stop: 04/21/21 21:50 Last Admin: 03/26/21 00:41 Dose: 5 mg Documented by:
[2021-03-26] MEDS: FERROUS SULFATE 325 MG TAB PO SCH (13:59)
[2021-03-26] MEDS: LIDOCAINE 5% 1 PATCH TD SCH (14:03)
[2021-03-26] MEDS: traMADol HCL 50 MG TABLET PO PRN ×2 (14:11→20:33)
--- NOTE | 2021-03-26 16:36 | Hospitalist Progress Note ---
Date of Service March 26, 2021 Assessment & Plan (1) Pneumonia: (2) Catheter-associated urinary tract infection: Plan: 76-year-old female with PMH Parkinson's, Rkjgrkx-Thcbz-Ocfri disease, HTN, HLD, history of TIA, CKD stage III, chronic Romeo catheter with recurrent UTIs, wheelchair-bound, multiple lower extremity surgeries, who presented to the ED for evaluation of shortness of breath and wheezing. Being managed for the following: Delirium, Paranoia, hallucinations -Pt w/ hx of paranoid ideations related to cognitive decline now with superimposed delirium -Patient became more confused and was yelling and calling 911 on her cell phone and her family. -Psychiatry consulted, patient started on Risperdal 0.25 mg twice daily -patient appears to be tolerating well with less delirium, paranoia, hallucinations. Sroke Alert Patient was a stroke alert overnight (03/20-03/21) Likely TIA - involving the right hemisphere with left facial droop yet on imaging has no evidence for a completed event Head and neck CTA, brain MRI unremarkable for acute findings Neurology consulted, input appreciated Do not have sufficient evidence to recommend adding Plavix to her aspirin but will observe her for recurrent events and if they do enlarge then certainly would add another antiplatelet agent Recommend to continue aspirin 81 mg daily, and 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 Fields Pneumonia Has bibasilar infiltration more on the right could be secondary to aspiration versus HCAP Initial lactic acid 3.2---> 1.9, no other signs of sepsis. MRSA screen negative Zosyn 03/12 --> change to Augmentin 03/14 -->levaquin 03/15 d/t E.cloacae and E. coli in UCx --> stop date 03/19 Blood cultures negative Has had speech evaluation Recommended aspiration precaution during feeding - If the condition persist will need to have a formal barium swallow Hypoxia Pulm Edema - mild Left Plueal Effusion - Small Patient presenting from home with reports of shortness of breath associated with cough and wheezing October 2019 ECHO was a poor qualitygrossly normal LV function. Patient requiring on 2 L nasal cannula oxygen at presentation and on and off. Likely secondary to pneumonia and pulmonary edema 03/14 CXR: Mild pulmonary edema. Possible small left pleural effusion. 03/14 IV dose of Lasix Continue to monitor pleural effusion and pulmonary edema. Use supplemental oxygen as needed and nebulization as needed. --> Patient is improved clinically. CAUTI: Chronic indwelling Romeo catheter History of recurrent UTIs. Patient overdue for follow-up with urology---> Alexandrea BETANCOURT to arrange for outpatient follow-up for management of her chronic Romeo. UA was suggestive of infection, 03/12 urine culture Enterobacter cloacae and E. coli Antibiotics as above CMT (Isrnnou-Cxepo-Itshp disease): S/p multiple lower extremity procedures, most recently s/p left knee closed reduction total knee arthroplasty subluxation on 02/16/2021 - patient is to remain nonweightbearing of the left lower extremity and limited weightbearing on the right lower extremity Abnormal Left ankle XR Patient complaining of multiple joint pain, more on the left leg 03/15 x-ray left ankle: A 1.8 cm linear ossific density posterior to the talus may represent an avulsion fracture from the dorsal calcaneus. Clinical correlation will be essential. Orthopedic consulted for left calcaneal superior posterior avulsion fracture status post fall: High tide walking boot removed, replaced with a dorsiflexion splint with a negative relief under the left heel and lambs wool padding to provide essentially neutral support for neutral dorsiflexion of the left ankle and heel and foot. Orthopedic recommending may use the walking boot for transfers or ambulating and wheelchair as necessary. Follow-up with outpatient orthopedics. Dr. Crain, [facility]. Parkinson disease: Continue carbidopa-levodopa Chronic pain: Continue home regimen DVT prophylaxis: SQ Lovenox Disposition: questionable at this time, CM and palliative medicine following. Admission and Anticipated Discharge Date Admission Date: March 12, 2021 Supervising Physician Co-Signing Physician Notes Pt seen and examined by me, care coordinated by Arden BETANCOURT, please refer to her note above for further detail. Currently patient is lying in bed, comfortable, answering questions more appropriately. Per nursing staff, she was little confused in the morning, however overall much more appropriate after starting Risperdal. Psychiatry is following closely. Pedro Steen MD Subjective Patient seen and examined. Follow-up for delirium, pneumonia, UTI. Pleasant this morning, reporting some bilateral leg pain which seems to be chronic. No overt confusion, hallucinations, paranoia. Denies chest pain shortness of breath. No abdominal pain or nausea. Review of Systems Review of Systems: All systems reviewed & are unremarkable except as noted in Subjective Physical Exam Constitutional: WD/WN, vitals as above + obese Respiratory: normal respiratory effort; no respiratory distress Auscultation: + diminished lung sounds Cardiovascular: Rate/Rhythm: regular rate and regular rhythm Vessels: normal peripheral pulses Extremities: no edema Gastrointestinal (Abdomen): Percussion/Palpation: abdomen soft; abdomen nontender Musculoskeletal: Boot in place to LLE, bilateral John bandages to LE, left hand contractures Skin: no rashes, warm and dry Neurologic: no focal motor deficits Psychiatric: Orientation: alert, oriented to person, oriented to place and cooperative; + not oriented to time Insight: + limited insight Results & Data Results & Data ([place]) Vital Signs (Past 12 Hours) Vital Signs Temp Pulse Resp BP Pulse Ox 03/26/21 07:53 36.3 C L 70 17 129/78 98 Laboratory Results Short CBC 03/26/21 Range/Units 08:43 WBC 6.29 (4.8-10.8) K/uL Hgb 12.9 (12.0-16.0) g/dL Hct 39.4 (37-47) % Plt Count 134 (130-400) K/uL BMP 03/26/21 03/26/21 08:43 09:50 Sodium 140 Potassium 3.8 Chloride 110 H Carbon Dioxide 19 L BUN 15 Creatinine 0.73 Glucose 82 Calcium 8.9 Medications Administered Current Inpatient Medications Acetaminophen (Acetaminophen 325 Mg Tab) 650 mg PO Q4H PRN PRN Reason: pain/fever Stop: 04/11/21 16:59 Last Admin: 03/25/21 19:34 Dose: 650 mg Documented by: Albuterol (Albuterol 0.5% Neb Soln 2.5 Mg/0.5 Ml Vial) 2.5 mg NEB Q6R PRN PRN Reason: wheezing, SOB Stop: 04/13/21 18:59 Last Admin: 03/19/21 09:50 Dose: 2.5 mg Documented by: Albuterol (Albut/Ipratrop 3mg/0.5mg Neb 3 Ml Vial) 3 ml NEB Q4R PRN PRN Reason: Shortness Of Breath Or Wheezing Stop: 04/11/21 18:59 Last Admin: 03/22/21 21:02 Dose: 3 ml Documented by: Amlodipine Besylate (Amlodipine Besylate 5 Mg Tab) 5 mg PO QAM [facility] Stop: 04/22/21 12:14 Last Admin: 03/26/21 08:17 Dose: 5 mg Documented by: Aspirin (Aspirin 81 Mg Ectab) 81 mg PO DAILY [facility] Stop: 04/12/21 08:59 Last Admin: 03/26/21 08:18 Dose: 81 mg Documented by: Carbidopa/Levodopa (Carbidopa/Levodopa 25/100mg Tab) 1 tab PO TID [facility] Stop: 04/11/21 20:59 Last Admin: 03/26/21 14:01 Dose: 1 tab Documented by: Diclofenac Sodium (Diclofenac Sod 1% Gel 100 Gm Tube) 2 gm EXT Q6 [facility] Stop: 04/13/21 15:29 Last Admin: 03/26/21 14:03 Dose: 2 gm Documented by: Docusate Sodium (Docusate Sodium 100 Mg Cap) 100 mg PO DAILY PRN PRN Reason: Constipation Stop: 04/11/21 16:59 Last Admin: 03/18/21 08:07 Dose: 100 mg Documented by: Ezetimibe (Ezetimibe 10 Mg Tablet) 10 mg PO HS [facility] Stop: 04/11/21 20:59 Last Admin: 03/25/21 21:49 Dose: 10 mg Documented by: Enoxaparin Sodium (Enoxaparin Inj 40 Mg/0.4 Ml Syr) 40 mg SQ Q24H [facility] Stop: 04/11/21 16:59 Last Admin: 03/25/21 21:50 Dose: 40 mg Documented by: Ferrous Sulfate (Ferrous Sulfate 325 Mg Tab) 325 mg PO DAILY@1100 [facility] Stop: 04/12/21 10:59 Last Admin: 03/26/21 13:59 Dose: 325 mg Documented by: Gabapentin (Gabapentin 100 Mg Cap) 200 mg PO TID [facility] Stop: 04/22/21 20:59 Last Admin: 03/26/21 14:00 Dose: 200 mg Documented by: Haloperidol Lactate (Haloperidol Lactate 5 Mg/Ml 1 Ml Vial) 1 mg IV Q6 PRN PRN Reason: Anxiety/Agitation Stop: 04/23/21 12:15 Lactase (Lactase 3000 Unit Tab) 3,000 units PO AC [facility] Stop: 04/11/21 16:59 Last Admin: 03/26/21 13:59 Dose: 3,000 units Documented by: Lactobacillus Acidoph/Casei/Rhamnos (Advanced Probiotic 1250 Mg Capsule) 2 cap PO DAILY [facility] Stop: 04/14/21 14:29 Last Admin: 03/26/21 08:19 Dose: 2 cap Documented by: Lamotrigine (Lamotrigine 25 Mg Tab) 75 mg PO HS [facility] Stop: 04/11/21 20:59 Last Admin: 03/25/21 21:48 Dose: 75 mg Documented by: Lidocaine (Lidocaine 5% 1 Patch) 1 patch TD DAILY [facility] Stop: 04/12/21 08:59 Last Admin: 03/26/21 14:03 Dose: 1 patch Documented by: Meloxicam (Meloxicam 7.5 Mg Tab) 7.5 mg PO DAILY [facility] Stop: 04/12/21 08:59 Last Admin: 03/20/21 08:46 Dose: 7.5 mg Documented by: Miscellaneous (Toviaz-Order Awaiting Action) 1 ea N/A QS [facility] Stop: 04/12/21 00:00 Last Admin: 03/26/21 08:17 Dose: Not Given Documented by: Miscellaneous (Remove Lidoderm Patch) 1 ea N/A HS [facility] Stop: 04/11/21 20:59 Last Admin: 03/25/21 21:46 Dose: 1 ea Documented by: Miscellaneous Information (Pharmacist Discharge Med Rec Consult) 1 ea N/A UD P RN PRN Reason: Consult Stop: 04/20/21 00:49 Pantoprazole Sodium (Pantoprazole 40 Mg Tab) 40 mg PO DAILY [facility] Stop: 04/12/21 08:59 Last Admin: 03/26/21 08:19 Dose: 40 mg Documented by: Polyethylene Glycol (Polyethylene (Miralax) 17 Gm Pack) 17 gm PO DAILY PRN PRN Reason: Constipation Stop: 04/11/21 16:59 Last Admin: 03/18/21 08:07 Dose: 17 gm Documented by: Potassium Chloride (Potassium Chloride 10 Meq Tabcr) 10 meq PO BID [facility] Stop: 04/11/21 20:59 Last Admin: 03/26/21 08:25 Dose: 10 meq Documented by: Risperidone (Risperidone 0.5 Mg Tablet) 0.25 mg PO BID [facility] Stop: 04/23/21 15:24 Last Admin: 03/26/21 08:19 Dose: 0.25 mg Documented by: Tramadol HCl (Tramadol Hcl 50 Mg Tablet) 50 mg PO BID PRN PRN Reason: Pain Stop: 04/11/21 16:59 Last Admin: 03/26/21 14:11 Dose: 50 mg Documented by: Zolpidem Tartrate (Zolpidem Tartrate 5 Mg Tab) 5 mg PO HS PRN PRN Reason: Sleep Stop: 04/21/21 21:50 Last Admin: 03/26/21 00:41 Dose: 5 mg Documented by:
[2021-03-26] MEDS: ACETAMINOPHEN 325 MG TAB PO PRN (18:59)
[2021-03-26] MEDS: ENOXAPARIN INJ 40 MG/0.4 ML SYR SQ SCH (22:10)
[2021-03-26] MEDS: EZETIMIBE 10 MG TABLET PO SCH (22:10)
[2021-03-26] MEDS: lamoTRIgine 25 MG TAB PO SCH (22:10)
[2021-03-27] MEDS: DICLOFENAC SOD 1% GEL 100 GM TUBE EXT SCH ×3 (05:03→16:55)
[2021-03-27] MEDS: traMADol HCL 50 MG TABLET PO PRN (07:56)
[2021-03-27 08:00] LABS: Hematocrit (blood only) 36.3 % (37-47); Hemoglobin 11.4 g/dL (12.0-16.0); Mean Corpuscular Hemoglobin 27.5 pg (25-34); Mean Corpuscular Hgb Conc 31.4 g/dL (32-36); Mean Corpuscular Volume 87.5 fL (80-100); Mean Platelet Volume 10.1 fL (7.4-10.4); Platelet Count 225 K/uL (130-400); RDW Coefficient of Variation 14.8 % (11.5-14.5); RDW Standard Deviation 47.7 fL (36.4-46.3); Red Blood Count 4.15 M/uL (4.2-5.4); White Blood Count 6.41 K/uL (4.8-10.8)
[2021-03-27 08:53] LABS: BUN Creatinine Ratio 10.8 (10-20); Creatinine Clr Calc Pharmacy 58.4 ml/min; Est GFR (African American) 81.1 ml/min; Magnesium 1.7 mg/dl (1.8-2.4); Phosphorus 3.6 mg/dl (2.5-4.9); Potassium 3.8 mmol/L (3.5-5.1)
[2021-03-27] MEDS: LACTASE 3000 UNIT TAB PO SCH ×3 (09:44→16:05)
[2021-03-27] MEDS: ADVANCED PROBIOTIC 1250 MG CAPSULE PO SCH (09:46)
[2021-03-27] MEDS: GABAPENTIN 100 MG CAP PO SCH ×2 (09:46→13:53)
[2021-03-27] MEDS: amLODIPine BESYLATE 5 MG TAB PO SCH (09:46)
[2021-03-27] MEDS: risperiDONE 0.5 MG TABLET PO SCH (09:46)
[2021-03-27] MEDS: CARBIDOPA/LEVODOPA 25/100MG TAB PO SCH ×2 (09:46→13:53)
[2021-03-27] MEDS: PANTOprazole 40 MG TAB PO SCH (09:46)
[2021-03-27] MEDS: ASPIRIN 81 MG ECTAB PO SCH (09:46)
[2021-03-27] MEDS: LIDOCAINE 5% 1 PATCH TD SCH (09:49)
[2021-03-27] MEDS: FERROUS SULFATE 325 MG TAB PO SCH (12:53)
[2021-03-27] MEDS: POTASSIUM CHLORIDE 10 MEQ TABCR PO SCH (12:54)
--- NOTE | 2021-03-27 13:04 | Psychiatric Progress Note ---
Date of Service March 27, 2021 Impression / Recommendations Impression 76 yo female with history of paranoid ideations related to cognitive decline now with superimposed delirium resulting in worsening hallucinations and delusions. Started Risperdal 03/24/21. 03/27/21: no evidence of sialorrhea nor any evidence of worsening muscle tone or bradykinesia. Paranoia still present and per conversation with her son she's been calling her son and at early hours like 4am and throughout the day because she believes she hears them talking in the [place]. Giving ongoing hallucinations and no significant side effects will increase risperidone to 0.25 qAM & 0.5 mg qHS. 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 03/26/21: continue risperidone 0.25 mg BID. 03/25/21: Continue Risperdal 0.25 mg BID, son aware of drooling and prefers to wait a few days to adjust rather than shift now to hs as he is pleased with improvement. 03/24/21: Patient expressed a preference for tabs rather than mtab which hadn't started yet. Will admin Risperdal 0.25 mg now and again this hs and monitor. She does not present with significant tremor at baseline, likely more bradykinesia presentation of her Parkinsons but will watch for worsening muscle rigidity. 03/23/21: Case reviewed briefly with Dr. Steen, reviewed labs, QTc, med list. Patient is on Sinemet for Parkinson's, will not hold for now as worsening mainly delirium but certainly can contribute to psychosis, especially [place]. Recommend starting Risperdal M tab 0.25 mg this hs with likely titration, son supports this as designated family medical decision maker. If she refuses, if on wireline field operator would suggest Haldol 1 mg q4-6 prn IV. Risk Factors Assessment Do You Have Access To A Gun?: No Interval History Identifying Information Mrs. Maxwell is a 76 yo female from [place], admitted on 03/16/21 for pneumonia and UTI. [facility]. Chief Complaint "I'm not feeling good today". Review of Systems Notes Reports poor sleep, stable appetite. Subjective Subjective Patient was seen & assessed and interval progress reviewed. Reviewed chart and spoke with one of her providers, this morning Chen was endorsing chest pain with plan to transfer her to telemetry monitoring. She endorsed low mood due to chest pain and body aches in her feet and knees. She denied any excessive saliva or drooling this morning from the risperidone and none was observed. Wondered if her would be visiting her today. Some paranoia about "someone in a red outfit running in the halls" who she reports was screaming "" which she found disruptive. Physical Exam Psychiatric Orientation: oriented to person, oriented to place and cooperative Apperance: appropriately dressed and appropriately groomed Eye Contact: + fair eye contact Motor Behavior: no abnormal motor movements; n EPS Speech: normal rate/rhythm/volume of speech (soft) Affect: + constricted affect Mood: + depressed mood Thought Process: + looseness of associations Thought Content: + paranoid Suicidal Thoughts: denies suicidal thoughts Homicidal Thoughts: denies homicidal thoughts Hallucinations: + auditory hallucinations and + visual hallucinations Cognition: recent memory grossly intact and language grossly intact; + attention not intact Insight: + impaired insight Judgement: + impaired judgement Vital Signs (Past 24 Hours) Last Vital Signs Temp 36.7 C 03/27/21 07:39 Pulse 72 03/27/21 07:39 Resp 16 03/27/21 07:39 BP 133/77 03/27/21 07:39 Pulse Ox 97 03/27/21 07:39 Results & Data ([facility]) Laboratory Results Laboratory Results - last 24 hr 03/27/21 03/27/21 03/27/21 06:47 06:47 10:52 WBC 6.41 RBC 4.15 L Hgb 11.4 L Hct 36.3 L MCV 87.5 MCH 27.5 MCHC 31.4 L RDW Std Deviation 47.7 H RDW Coeff of Tsering 14.8 H Plt Count 225 D MPV 10.1 Sodium 141 Potassium 3.8 Chloride 108 H Carbon Dioxide 23 Anion Gap 10.0 BUN 9 D Creatinine 0.82 Est Cr Clr Drug Dosing 58.4 Est GFR ( Amer) 81.1 Est GFR (Non-Af Amer) 70.0 BUN/Creatinine Ratio 10.8 Glucose 79 Calcium 9.0 Phosphorus 3.6 Magnesium 1.7 L Troponin I < 0.015 Current Inpatient Medications Current Inpatient Medications: Current Inpatient Medications Acetaminophen (Acetaminophen 325 Mg Tab) 650 mg PO Q4H PRN PRN Reason: pain/fever Stop: 04/11/21 16:59 Last Admin: 03/26/21 18:59 Dose: 650 mg Documented by: Albuterol (Albuterol 0.5% Neb Soln 2.5 Mg/0.5 Ml Vial) 2.5 mg NEB Q6R PRN PRN Reason: wheezing, SOB Stop: 04/13/21 18:59 Last Admin: 03/19/21 09:50 Dose: 2.5 mg Documented by: Albuterol (Albut/Ipratrop 3mg/0.5mg Neb 3 Ml Vial) 3 ml NEB Q4R PRN PRN Reason: Shortness Of Breath Or Wheezing Stop: 04/11/21 18:59 Last Admin: 03/22/21 21:02 Dose: 3 ml Documented by: Amlodipine Besylate (Amlodipine Besylate 5 Mg Tab) 5 mg PO QAM [facility] Stop: 04/22/21 12:14 Last Admin: 03/27/21 09:46 Dose: 5 mg Documented by: Aspirin (Aspirin 81 Mg Ectab) 81 mg PO DAILY [facility] Stop: 04/12/21 08:59 Last Admin: 03/27/21 09:46 Dose: 81 mg Documented by: Carbidopa/Levodopa (Carbidopa/Levodopa 25/100mg Tab) 1 tab PO TID [facility] Stop: 04/11/21 20:59 Last Admin: 03/27/21 09:46 Dose: 1 tab Documented by: Diclofenac Sodium (Diclofenac Sod 1% Gel 100 Gm Tube) 2 gm EXT Q6 [facility] Stop: 04/13/21 15:29 Last Admin: 03/27/21 12:54 Dose: 2 gm Documented by: Docusate Sodium (Docusate Sodium 100 Mg Cap) 100 mg PO DAILY PRN PRN Reason: Constipation Stop: 04/11/21 16:59 Last Admin: 03/18/21 08:07 Dose: 100 mg Documented by: Ezetimibe (Ezetimibe 10 Mg Tablet) 10 mg PO HS [facility] Stop: 04/11/21 20:59 Last Admin: 03/26/21 22:10 Dose: 10 mg Documented by: Enoxaparin Sodium (Enoxaparin Inj 40 Mg/0.4 Ml Syr) 40 mg SQ Q24H [facility] Stop: 04/11/21 16:59 Last Admin: 03/26/21 22:10 Dose: 40 mg Documented by: Ferrous Sulfate (Ferrous Sulfate 325 Mg Tab) 325 mg PO DAILY@1100 [facility] Stop: 04/12/21 10:59 Last Admin: 03/27/21 12:53 Dose: 325 mg Documented by: Gabapentin (Gabapentin 100 Mg Cap) 200 mg PO TID [facility] Stop: 04/22/21 20:59 Last Admin: 03/27/21 09:46 Dose: 200 mg Documented by: Haloperidol Lactate (Haloperidol Lactate 5 Mg/Ml 1 Ml Vial) 1 mg IV Q6 PRN PRN Reason: Anxiety/Agitation Stop: 04/23/21 12:15 Lactase (Lactase 3000 Unit Tab) 3,000 units PO AC [facility] Stop: 04/11/21 16:59 Last Admin: 03/27/21 12:53 Dose: 3,000 units Documented by: Lactobacillus Acidoph/Casei/Rhamnos (Advanced Probiotic 1250 Mg Capsule) 2 cap PO DAILY [facility] Stop: 04/14/21 14:29 Last Admin: 03/27/21 09:46 Dose: 2 cap Documented by: Lamotrigine (Lamotrigine 25 Mg Tab) 75 mg PO HS [facility] Stop: 04/11/21 20:59 Last Admin: 03/26/21 22:10 Dose: 75 mg Documented by: Lidocaine (Lidocaine 5% 1 Patch) 1 patch TD DAILY [facility] Stop: 04/12/21 08:59 Last Admin: 03/27/21 09:49 Dose: 1 patch Documented by: Meloxicam (Meloxicam 7.5 Mg Tab) 7.5 mg PO DAILY [facility] Stop: 04/12/21 08:59 Last Admin: 03/20/21 08:46 Dose: 7.5 mg Documented by: Miscellaneous (Toviaz-Order Awaiting Action) 1 ea N/A QS [facility] Stop: 04/12/21 00:00 Last Admin: 03/27/21 09:44 Dose: Not Given Documented by: Miscellaneous (Remove Lidoderm Patch) 1 ea N/A HS [facility] Stop: 04/11/21 20:59 Last Admin: 03/26/21 22:10 Dose: Not Given Documented by: Miscellaneous Information (Pharmacist Discharge Med Rec Consult) 1 ea N/A UD PRN PRN Reason: Consult Stop: 04/20/21 00:49 Pantoprazole Sodium (Pantoprazole 40 Mg Tab) 40 mg PO DAILY [facility] Stop: 04/12/21 08:59 Last Admin: 03/27/21 09:46 Dose: 40 mg Documented by: Polyethylene Glycol (Polyethylene (Miralax) 17 Gm Pack) 17 gm PO DAILY PRN PRN Reason: Constipation Stop: 04/11/21 16:59 Last Admin: 03/18/21 08:07 Dose: 17 gm Documented by: Potassium Chloride (Potassium Chloride 10 Meq Tabcr) 10 meq PO BID [facility] Stop: 04/11/21 20:59 Last Admin: 03/27/21 12:54 Dose: Not Given Documented by: Risperidone (Risperidone 0.5 Mg Tablet) 0.25 mg PO BID [facility] Stop: 04/23/21 15:24 Last Admin: 03/27/21 09:46 Dose: 0.25 mg Documented by: Tramadol HCl (Tramadol Hcl 50 Mg Tablet) 50 mg PO BID PRN PRN Reason: Pain Stop: 04/11/21 16:59 Last Admin: 03/27/21 07:56 Dose: 50 mg Documented by: Zolpidem Tartrate (Zolpidem Tartrate 5 Mg Tab) 5 mg PO HS PRN PRN Reason: Sleep Stop: 04/21/21 21:50 Last Admin: 03/26/21 22:15 Dose: 5 mg Documented by:
--- NOTE | 2021-03-27 13:27 | Electrocardiogram Report ---
Test Reason : Blood Pressure : / mmHG Vent. Rate : 079 BPM Atrial Rate : 079 BPM P-R Int : 186 ms QRS Dur : 098 ms QT Int : 380 ms P-R-T Axes : 062 -17 003 degrees QTc Int : 435 ms Normal sinus rhythm Cannot rule out Anterior infarct (cited on or before 27-MAR-2021) Abnormal ECG When compared with ECG of 20-MAR-2021 23:14, Criteria for Inferior infarct are no longer Present Questionable change in initial forces of Anterior leads Confirmed by Ronny Sampson ([id number]) on 03/27/2021 1:27:16 PM Referred By: REFERRED SELF Confirmed By:Jeromy Sampson
--- NOTE | 2021-03-27 18:12 | Hospitalist Progress Note ---
Date of Service March 27, 2021 Assessment & Plan (1) Pneumonia: (2) Catheter-associated urinary tract infection: Plan: 76-year-old female with PMH Parkinson's, Vjukxyq-Egmxc-Azzhv disease, HTN, HLD, history of TIA, CKD stage III, chronic Romeo catheter with recurrent UTIs, wheelchair-bound, multiple lower extremity surgeries, who presented to the ED for evaluation of shortness of breath and wheezing. Being managed for the following: Delirium, Paranoia, hallucinations -Pt w/ hx of paranoid ideations related to cognitive decline now with superimposed delirium -Patient became more confused and was yelling and calling 911 on her cell phone and her family. -Psychiatry consulted, patient initially started on Risperdal 0.25 mg twice daily -today, paranoia and hallucinations still seem to be present, therefore psychiatry increase Risperdal to 0.25 mg every morning and 0.5 mg nightly Chest pain -Patient reporting midsternal chest pain with radiation into the left arm and neck -Transfer to [facility] [place] with telemetry -Troponin negative x2, EKG nonischemic -Noted to be reproducible with palpation on exam, therefore may have some musculoskeletal component -Patient also reporting some right upper quadrant abdominal pain so may be GI component as well -Trend cardiac enzymes, consider further work-up if elevation or EKG changes RUQ abdominal pain -Patient having some nausea and right upper quadrant abdominal pain -Check RUQ US Sroke Alert Patient was a stroke alert overnight (03/20-03/21) Likely TIA - involving the right hemisphere with left facial droop yet on imaging has no evidence for a completed event Head and neck CTA, brain MRI unremarkable for acute findings Neurology consulted, input appreciated Do not have sufficient evidence to recommend adding Plavix to her aspirin but will observe her for recurrent events and if they do enlarge then certainly would add another antiplatelet agent Recommend to continue aspirin 81 mg daily, and 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 Fields Pneumonia Has bibasilar infiltration more on the right could be secondary to aspiration versus HCAP Initial lactic acid 3.2---> 1.9, no other signs of sepsis. MRSA screen negative Zosyn 03/12 --> change to Augmentin 03/14 -->levaquin 03/15 d/t E.cloacae and E. coli in UCx --> stop date 03/19 Blood cultures negative Has had speech evaluation Recommended aspiration precaution during feeding - If the condition persist will need to have a formal barium swallow Hypoxia Pulm Edema - mild Left Plueal Effusion - Small Patient presenting from home with reports of shortness of breath associated with cough and wheezing October 2019 ECHO was a poor qualitygrossly normal LV function. Patient requiring on 2 L nasal cannula oxygen at presentation and on and off. Likely secondary to pneumonia and pulmonary edema 03/14 CXR: Mild pulmonary edema. Possible small left pleural effusion. 03/14 IV dose of Lasix Continue to monitor pleural effusion and pulmonary edema. Use supplemental oxygen as needed and nebulization as needed. --> Patient is improved clinically. CAUTI: Chronic indwelling Romeo catheter History of recurrent UTIs. Patient overdue for follow-up with urology---> Alexandrea BETANCOURT to arrange for outpatient follow-up for management of her chronic Romeo. UA was suggestive of infection, 03/12 urine culture Enterobacter cloacae and E. coli Antibiotics as above CMT (Tvljxso-Zvvzx-Oqidl disease): S/p multiple lower extremity procedures, most recently s/p left knee closed reduction total knee arthroplasty subluxation on 02/16/2021 - patient is to remain nonweightbearing of the left lower extremity and limited weightbearing on the right lower extremity Abnormal Left ankle XR Patient complaining of multiple joint pain, more on the left leg 03/15 x-ray left ankle: A 1.8 cm linear ossific density posterior to the talus may represent an avulsion fracture from the dorsal calcaneus. Clinical correlation will be essential. Orthopedic consulted for left calcaneal superior posterior avulsion fracture status post fall: High tide walking boot removed, replaced with a dorsiflexion splint with a negative relief under the left heel and lambs wool padding to provide essentially neutral support for neutral dorsiflexion of the left ankle and heel and foot. Orthopedic recommending may use the walking boot for renteria sfers or ambulating and wheelchair as necessary. Follow-up with outpatient orthopedics. Dr. Crain, [facility] [place]. Parkinson disease: Continue carbidopa-levodopa Chronic pain: Continue home regimen DVT prophylaxis: SQ Lovenox Disposition: Possible placement to [facility] vs home. Case management following. Admission and Anticipated Discharge Date Admission Date: March 12, 2021 Supervising Physician Co-Signing Physician Notes Pt seen and examined by me, care coordinated with Arden BETANCOURT, please refer to her note above for further detail. Currently patient is lying in bed, comfortable. Per nursing staff, she was little confused in the morning, however overall much more appropriate after starting Risperdal. Psychiatry is following closely. In addition, earlier today complained of chest pain - work-up unrevealing. Then of RUQ pain- gallbladder US pending. Currently she tells me she feels embarrassed because she called on her phone again at night. Says "I'm nuts". Reports she gets chest discomfort from anxiety. Continue to closely monitor. Pedro Steen MD Subjective Patient seen and examined. Follow-up for delirium, pneumonia, UTI. Notified by nursing of patient's complaints of chest pain. Patient reports a midsternal chest pain with radiation into the left arm and neck and nausea. Initial troponin negative, EKG nonischemic. Having some hallucinations this morning, states "That person in the register was harassing me." Appears to be in no acute distress. Review of Systems Review of Systems: All systems reviewed & are unremarkable except as noted in Subjective Physical Exam Constitutional: WD/WN, vitals as above + obese Respiratory: normal respiratory effort; no respiratory distress Auscultation: + diminished lung sounds Cardiovascular: Rate/Rhythm: regular rate and regular rhythm Vessels: normal peripheral pulses Extremities: no edema Chest (Breasts): Additional Comments: Midsternal chest tenderness Gastrointestinal (Abdomen): Percussion/Palpation: + abdomen tender (RUQ) and abdomen soft Musculoskeletal: Boot in place to LLE, bilateral John bandages to LE, left hand contracture Skin: no rashes, warm and dry Neurologic: no focal motor deficits Psychiatric: Orientation: alert and oriented x 3 Thought Process: + thought process not clear or coherent Results & Data Results & Data ([facility]) Vital Signs (Past 12 Hours) Vital Signs Temp Pulse Resp BP Pulse Ox 03/27/21 15:28 36.9 C 84 18 155/81 H 95 03/27/21 13:31 36.8 C 76 18 138/78 97 03/27/21 07:39 36.7 C 72 16 133/77 97 Laboratory Results Short CBC 03/27/21 Range/Units 06:47 WBC 6.41 (4.8-10.8) K/uL Hgb 11.4 L (12.0-16.0) g/dL Hct 36.3 L (37-47) % Plt Count 225 D (130-400) K/uL BMP 03/27/21 06:47 Sodium 141 Potassium 3.8 Chloride 108 H Carbon Dioxide 23 BUN 9 D Creatinine 0.82 Glucose 79 Calcium 9.0 Cardiac Enzymes 03/27/21 03/27/21 Range/Units 10:52 16:25 Troponin I < 0.015 < 0.015 (0-0.045) ng/ml
[2021-03-27] MEDS: MAGNESIUM SULFATE / D5W 1 GM/100 ML BAG IV SCH ×2 (18:52→21:45)
--- NOTE | 2021-03-27 20:55 | Ultrasound Report ---
ABDOMINAL ULTRASOUND, RIGHT UPPER QUADRANT HISTORY: Right upper quadrant abdominal pain.. COMPARISON: None. FINDINGS: Pancreas: The pancreatic head and tail are obscured by overlying bowel gas. The remaining portions of the pancreas are within normal limits. Liver: The liver is echogenic consistent with fatty change. 16 cm in length. Gallbladder: No gallbladder wall thickening. No gallstones. CBD: 8 mm. This is considered slightly distended given the patient's age. Right kidney: No hydronephrosis. Multiple cysts with the largest in the upper pole measuring 3.5 cm. This contains a septation IMPRESSION: 1. Normal gallbladder. No gallstones. 2. Mild hepatic steatosis. 3. Slightly distended common bile duct measuring 8 mm given the patient's age. 4. Right renal cysts. Dominant 3.5 cm cyst within the upper pole contains a septation. Consider one y ear ultrasound follow-up to ensure stability. ACT 112: Negative or not required by law. Electronically signed by: Alfonzo Sparrow M.D. 03/27/2021 8:54 PM
[2021-03-28] MEDS: EZETIMIBE 10 MG TABLET PO SCH ×2 (00:01→20:34)
[2021-03-28] MEDS: lamoTRIgine 25 MG TAB PO SCH ×2 (00:02→20:34)
[2021-03-28] MEDS: GABAPENTIN 100 MG CAP PO SCH ×4 (00:02→20:34)
[2021-03-28] MEDS: POTASSIUM CHLORIDE 10 MEQ TABCR PO SCH ×3 (00:02→20:34)
[2021-03-28] MEDS: risperiDONE 0.5 MG TABLET PO SCH ×3 (00:03→20:34)
[2021-03-28] MEDS: DICLOFENAC SOD 1% GEL 100 GM TUBE EXT SCH ×4 (00:03→17:11)
[2021-03-28] MEDS: ASPIRIN 81 MG ECTAB PO SCH (08:01)
[2021-03-28] MEDS: amLODIPine BESYLATE 5 MG TAB PO SCH (08:02)
[2021-03-28] MEDS: ADVANCED PROBIOTIC 1250 MG CAPSULE PO SCH (08:02)
[2021-03-28] MEDS: LACTASE 3000 UNIT TAB PO SCH ×3 (08:02→17:11)
[2021-03-28] MEDS: CARBIDOPA/LEVODOPA 25/100MG TAB PO SCH ×4 (08:02→20:34)
[2021-03-28] MEDS: LIDOCAINE 5% 1 PATCH TD SCH (08:03)
[2021-03-28 09:14] LABS: Hemoglobin 11.8 g/dL (12.0-16.0); Mean Corpuscular Hemoglobin 27.8 pg (25-34); Mean Corpuscular Hgb Conc 31.9 g/dL (32-36); Mean Corpuscular Volume 87.3 fL (80-100); Mean Platelet Volume 10.5 fL (7.4-10.4); Platelet Count 240 K/uL (130-400); RDW Coefficient of Variation 14.6 % (11.5-14.5); RDW Standard Deviation 46.4 fL (36.4-46.3); Red Blood Count 4.24 M/uL (4.2-5.4); White Blood Count 6.98 K/uL (4.8-10.8)
[2021-03-28 09:44] LABS: Albumin Level 3.1 gm/dl (3.4-5.0); BUN Creatinine Ratio 14.7 (10-20); Calcium 9.5 mg/dl (8.5-10.1); Creatinine Clr Calc Pharmacy 87.2 ml/min; Est GFR (Non-African American) 92.3 ml/min; Potassium 3.9 mmol/L (3.5-5.1)
[2021-03-28 09:47] LABS: Bilirubin Direct 0.1 mg/dl (0-0.2); Bilirubin,Total 0.6 mg/dl (0.2-1); Total Protein 6.4 gm/dl (6.4-8.2)
[2021-03-28] MEDS: traMADol HCL 50 MG TABLET PO PRN (10:12)
[2021-03-28] MEDS: FERROUS SULFATE 325 MG TAB PO SCH (10:13)
[2021-03-28] MEDS: PANTOprazole 40 MG TAB PO SCH (10:13)
[2021-03-28] MEDS: ALBUT/IPRATROP 3MG/0.5MG NEB 3 ML VIAL NEB PRN (11:17)
--- NOTE | 2021-03-28 13:13 | XRay Report ---
SINGLE VIEW CHEST CLINICAL HISTORY: Dyspnea. FINDINGS: An AP, portable, upright chest radiograph is compared to study dated 03/15/2021 and correla joleen with chest CT dated 03/20/2021. The heart is enlarged noting atherosclerotic calcification of the thoracic aorta. There is prominence of the pulmonary vasculature. Chronic interstitial thickening is similar to previous. There is bibasilar scarring/atelectasis. No airspace consolidation or large ple ural effusion is identified. Chronic elevation of the right hemidiaphragm is unchanged. No pneumothor ax is seen. The skeletal structures are osteopenic. The bony thorax is grossly intact. A left shoulde r arthroplasty is in place. IMPRESSION: Cardiomegaly with prominence of the pulmonary vasculature. Correlate clinically for evide nce of mild congestive change. ACT 112: Negative or not required by law. Electronically signed by: Van Henry M.D. 03/28/2021 1:11 PM
[2021-03-28] MEDS ORDERED: FUROSEMIDE INJ 20 MG/2 ML VIAL IV ONE (14:22)
--- NOTE | 2021-03-28 14:23 | Psychiatric Progress Note ---
Date of Service March 28, 2021 Impression / Recommendations Impression 76 yo female with history of paranoid ideations related to cognitive decline now with superimposed delirium resulting in worsening hallucinations and delusions. Started Risperdal 03/24/21. 03/28/21: no evidence of sialorrhea nor any evidence of worsening muscle tone or bradykinesia with higher dose of risperidone, slept well last night. Paranoia still present at times, fluctuates throughout the day. 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 03/27/21: increase risperidone 0.25 mg qAM & 0.5 mg qHS. 03/26/21: continue risperidone 0.25 mg BID. 03/25/21: Continue Risperdal 0.25 mg BID, son aware of drooling and prefers to wait a few days to adjust rather than shift now to hs as he is pleased with improvement. 03/24/21: Patient expressed a preference for tabs rather than mtab which hadn't started yet. Will admin Risperdal 0.25 mg now and again this hs and monitor. She does not present with significant tremor at baseline, likely more bradykinesia presentation of her Parkinsons but will watch for worsening muscle rigidity. 03/23/21: Case reviewed briefly with Dr. Steen, reviewed labs, QTc, med list. Patient is on Sinemet for Parkinson's, will not hold for now as worsening mainly delirium but certainly can contribute to psychosis, especially georges. Recommend starting Risperdal M tab 0.25 mg this hs with likely titration, son supports this as designated family medical decision maker. If she refuses, if on cardiac monitor technician would suggest Haldol 1 mg q4-6 prn IV. Risk Factors Assessment Do You Have Access To A Gun?: No Interval History Identifying Information Mrs. Maxwell is a 76 yo female from [place], admitted on 03/16/21 for pneumonia and UTI. Consult is by [facility]ist service for paranoia and hallucinations. Chief Complaint "My left arm and leg were hurting this morning and my right kidney". Review of Systems Notes Slept better last night, stable appetite Subjective Subjective Patient was seen & assessed and interval progress reviewed. Chen continues to have pain though appears more comfortable today. She denies any muscle stiffness or difficulty moving her arms. Is watching TV and is able to turn down the volume when we visit with her. No drooling or other side effects she noticed from higher dose of risperidone. Speech is slightly softer today. Spoke with her son who reports last night was the first time in awhile that she hasn't called him in the middle of the night. Reviewed that she tends to have more paranoia with transitions so with plan for likely [facility] home ongoing use of risperidone will be important. Physical Exam Psychiatric Orientation: alert, oriented x 3 and cooperative Apperance: appropriately dressed and appropriately groomed Eye Contact: + fair eye contact Motor Behavior: no abnormal motor movements; n EPS Speech: normal rate/rhythm/volume of speech (soft) Affect: + constricted affect Mood: + anxious mood Thought Process: + circumstantial thought process and + looseness of associations Thought Content: + paranoid Suicidal Thoughts: denies suicidal thoughts Homicidal Thoughts: denies homicidal thoughts Hallucinations: + auditory hallucinations and + visual hallucinations Cognition: recent memory grossly intact and language grossly intact Insight: + impaired insight Judgement: + impaired judgement Vital Signs (Past 24 Hours) Last Vital Signs Temp 36.7 C 03/28/21 11:03 Pulse 76 03/28/21 11:24 Resp 18 03/28/21 11:24 BP 128/73 03/28/21 11:03 Pulse Ox 95 03/28/21 11:24 Results & Data ([facility]) Laboratory Results Laboratory Results - last 24 hr 03/27/21 03/28/21 03/28/21 16:25 08:07 08:07 WBC 6.98 RBC 4.24 Hgb 11.8 L Hct 37.0 MCV 87.3 MCH 27.8 MCHC 31.9 L RDW Std Deviation 46.4 H RDW Coeff of Tsering 14.6 H Plt Count 240 MPV 10.5 H Sodium 139 Potassium 3.9 Chloride 108 H Carbon Dioxide 24 Anion Gap 7.0 BUN 8 Creatinine 0.54 L Est Cr Clr Drug Dosing 87.2 Est GFR ( Amer) 107.0 Est GFR (Non-Af Amer) 92.3 BUN/Creatinine Ratio 14.7 Glucose 81 Calcium 9.5 Magnesium 2.0 Total Bilirubin 0.6 Direct Bilirubin 0.1 AST 9 L ALT 8 L Alkaline Phosphatase 81 Troponin I < 0.015 Total Protein 6.4 Albumin 3.1 L Current Inpatient Medications Current Inpatient Medications: Current Inpatient Medications Acetaminophen (Acetaminophen 325 Mg Tab) 650 mg PO Q4H PRN PRN Reason: pain/fever Stop: 04/11/21 16:59 Last Admin: 03/26/21 18:59 Dose: 650 mg Documented by: Albuterol (Albuterol 0.5% Neb Soln 2.5 Mg/0.5 Ml Vial) 2.5 mg NEB Q6R PRN PRN Reason: wheezing, SOB Stop: 04/13/21 18:59 Last Admin: 03/19/21 09:50 Dose: 2.5 mg Documented by: Albuterol (Albut/Ipratrop 3mg/0.5mg Neb 3 Ml Vial) 3 ml NEB Q4R PRN PRN Reason: Shortness Of Breath Or Wheezing Stop: 04/11/21 18:59 Last Admin: 03/28/21 11:17 Dose: 3 ml Documented by: Amlodipine Besylate (Amlodipine Besylate 5 Mg Tab) 5 mg PO QAM MARIBELL Stop: 04/22/21 12:14 Last Admin: 03/28/21 08:02 Dose: 5 mg Documented by: Aspirin (Aspirin 81 Mg Ectab) 81 mg PO DAILY MARIBELL Stop: 04/12/21 08:59 Last Admin: 03/28/21 08:01 Dose: 81 mg Documented by: Carbidopa/Levodopa (Carbidopa/Levodopa 25/100mg Tab) 1 tab PO TID MARIBELL Stop: 04/11/21 20:59 Last Admin: 03/28/21 08:02 Dose: 1 tab Documented by: Diclofenac Sodium (Diclofenac Sod 1% Gel 100 Gm Tube) 2 gm EXT Q6 MARIBELL Stop: 04/13/21 15:29 Last Admin: 03/28/21 13:31 Dose: 2 gm Documented by: Docusate Sodium (Docusate Sodium 100 Mg Cap) 100 mg PO DAILY PRN PRN Reason: Constipation Stop: 04/11/21 16:59 Last Admin: 03/18/21 08:07 Dose: 100 mg Documented by: Ezetimibe (Ezetimibe 10 Mg Tablet) 10 mg PO HS MARIBELL Stop: 04/11/21 20:59 Last Admin: 03/28/21 00:01 Dose: 10 mg Documented by: Enoxaparin Sodium (Enoxaparin Inj 40 Mg/0.4 Ml Syr) 40 mg SQ Q24H MARIBELL Stop: 04/11/21 16:59 Last Admin: 03/28/21 00:00 Dose: 40 mg Documented by: Ferrous Sulfate (Ferrous Sulfate 325 Mg Tab) 325 mg PO DAILY@1100 MARIBELL Stop: 04/12/21 10:59 Last Admin: 03/28/21 10:13 Dose: 325 mg Documented by: Furosemide (Furosemide Inj 20 Mg/2 Ml Vial) 20 mg IV ONE ONE Stop: 03/28/21 14:23 Gabapentin (Gabapentin 100 Mg Cap) 200 mg PO TID MARIBELL Stop: 04/22/21 20:59 Last Admin: 03/28/21 10:13 Dose: 200 mg Documented by: Haloperidol Lactate (Haloperidol Lactate 5 Mg/Ml 1 Ml Vial) 1 mg IV Q6 PRN PRN Reason: Anxiety/Agitation Stop: 04/23/21 12:15 Lactase (Lactase 3000 Unit Tab) 3,000 units PO AC MARIBELL Stop: 04/11/21 16:59 Last Admin: 03/28/21 10:13 Dose: 3,000 units Documented by: Lactobacillus Acidoph/Casei/Rhamnos (Advanced Probiotic 1250 Mg Capsule) 2 cap PO DAILY MARIBELL Stop: 04/14/21 14:29 Last Admin: 03/28/21 08:02 Dose: 2 cap Documented by: Lamotrigine (Lamotrigine 25 Mg Tab) 75 mg PO HS MARIBELL Stop: 04/11/21 20:59 Last Admin: 03/28/21 00:02 Dose: 75 mg Documented by: Lidocaine (Lidocaine 5% 1 Patch) 1 patch TD DAILY MARIBELL Stop: 04/12/21 08:59 Last Admin: 03/28/21 08:03 Dose: 1 patch Documented by: Meloxicam (Meloxicam 7.5 Mg Tab) 7.5 mg PO DAILY MARIBELL Stop: 04/12/21 08:59 Last Admin: 03/20/21 08:46 Dose: 7.5 mg Documented by: Miscellaneous (Toviaz-Order Awaiting Action) 1 ea N/A QS MARIBELL Stop: 04/12/21 00:00 Last Admin: 03/28/21 08:03 Dose: Not Given Documented by: Miscellaneous (Remove Lidoderm Patch) 1 ea N/A HS MARIBELL Stop: 04/11/21 20:59 Last Admin: 03/28/21 00:03 Dose: 1 ea Documented by: Pantoprazole Sodium (Pantoprazole 40 Mg Tab) 40 mg PO DAILY MARIBELL Stop: 04/12/21 08:59 Last Admin: 03/28/21 10:13 Dose: 40 mg Documented by: Polyethylene Glycol (Polyethylene (Miralax) 17 Gm Pack) 17 gm PO DAILY PRN PRN Reason: Constipation Stop: 04/11/21 16:59 Last Admin: 03/18/21 08:07 Dose: 17 gm Documented by: Potassium Chloride (Potassium Chloride 10 Meq Tabcr) 10 meq PO BID MARIBELL Stop: 04/11/21 20:59 Last Admin: 03/28/21 10:12 Dose: 10 meq Documented by: Risperidone (Risperidone 0.5 Mg Tablet) 0.25 mg PO QAM [facility] Stop: 04/27/21 08:59 Last Admin: 03/28/21 08:02 Dose: 0.25 mg Documented by: Risperidone (Risperidone 0.5 Mg Tablet) 0.5 mg PO HS MARIBELL Stop: 04/26/21 20:59 Last Admin: 03/28/21 00:03 Dose: 0.5 mg Documented by: Tramadol HCl (Tramadol Hcl 50 Mg Tablet) 50 mg PO BID PRN PRN Reason: Pain Stop: 04/11/21 16:59 Last Admin: 03/28/21 10:12 Dose: 50 mg Documented by: Zolpidem Tartrate (Zolpidem Tartrate 5 Mg Tab) 5 mg PO HS PRN PRN Reason: Sleep Stop: 04/21/21 21:50 Last Admin: 03/26/21 22:15 Dose: 5 mg Documented by:
--- NOTE | 2021-03-28 14:38 | Hospitalist Progress Note ---
Date of Service March 28, 2021 Assessment & Plan (1) Pneumonia: (2) Catheter-associated urinary tract infection: Plan: 76-year-old female with PMH Parkinson's, Slpzexr-Mwmia-Vzyxl disease, HTN, HLD, history of TIA, CKD stage III, chronic Romeo catheter with recurrent UTIs, wheelchair-bound, multiple lower extremity surgeries, who presented to the ED for evaluation of shortness of breath and wheezing. Being managed for the following: Delirium, Paranoia, hallucinations -Pt w/ hx of paranoid ideations related to cognitive decline now with superimposed delirium -Patient became more confused and was yelling and calling 911 on her cell phone and her family. -Psychiatry consulted, patient initially started on Risperdal 0.25 mg twice daily then increased Risperdal to 0.25 mg every morning and 0.5 mg nightly on 03/27 Chest pain -Developed chest pain on 03/27 and was transferred to [facility] with telemetry -Troponin negative x2, EKG nonischemic -Reproducible on exam, likely musculoskeletal in nature Acute on chronic diastolic CHF - mild -Due to reports of shortness of breath today, chest x-ray was obtained showing mild pulmonary congestion -Lasix 20 mg IV x1 -Saturating well on room air -Echo 03/21/2021 -EF 55-60%, grade 2 diastolic dysfunction 03/14 CXR: Mild pulmonary edema. Possible small left pleural effusion. 03/14 IV dose of Lasix RUQ abdominal pain -Patient having some nausea and right upper quadrant abdominal pain on 03/27 -Resolved -RUQ US unremarkable, LFTs WNL Sroke Alert Patient was a stroke alert overnight (03/20-03/21) Likely TIA - involving the right hemisphere with left facial droop yet on imaging has no evidence for a completed event Head and neck CTA, brain MRI unremarkable for acute findings Neurology consulted, input appreciated Do not have sufficient evidence to recommend adding Plavix to her aspirin but will observe her for recurrent events and if they do enlarge then certainly would add another antiplatelet agent Recommend to continue aspirin 81 mg daily, and 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 Fields Pneumonia Has bibasilar infiltration more on the right could be secondary to aspiration versus HCAP Initial lactic acid 3.2---> 1.9, no other signs of sepsis. MRSA screen negative Zosyn 03/12 --> change to Augmentin 03/14 -->Levaquin 03/15 d/t E.cloacae and E. coli in UCx --> stop date 03/19 Blood cultures negative Has had speech evaluation Recommended aspiration precaution during feeding - If the condition persist will need to have a formal barium swallow CAUTI: Chronic indwelling Romeo catheter History of recurrent UTIs. Patient overdue for follow-up with urology---> Alexandrea BETANCOURT to arrange for outpatient follow-up for management of her chronic Romeo. UA was suggestive of infection, 03/12 urine culture Enterobacter cloacae and E. coli Antibiotics as above CMT (Xlmmggw-Ikhym-Xhxoa disease): S/p multiple lower extremity procedures, most recently s/p left knee closed reduction total knee arthroplasty subluxation on 02/16/2021 - patient is to remain nonweightbearing of the left lower extremity and limited weightbearing on the right lower extremity Abnormal Left ankle XR Patient complaining of multiple joint pain, more on the left leg 03/15 x-ray left ankle: A 1.8 cm linear ossific density posterior to the talus may represent an avulsion fracture from the dorsal calcaneus. Clinical correlation will be essential. Orthopedic consulted for left calcaneal superior posterior avulsion fracture status post fall: High tide walking boot removed, replaced with a dorsiflexion splint with a negative relief under the left heel and lambs wool padding to provide essentially neutral support for neutral dorsiflexion of the left ankle and heel and foot. Orthopedic recommending may use the walking boot for transfers or ambulating and wheelchair as necessary. Follow-up with outpatient orthopedics. [place], [facility] Parkinson disease: Continue carbidopa-levodopa Chronic pain: Continue home regimen DVT prophylaxis: SQ Lovenox Disposition: Possible placement to [facility] vs home. Case management following. Admission and Anticipated Discharge Date Admission Date: March 12, 2021 Supervising Physician Co-Signing Physician Notes Patient seen and examined at the bedside. Communicated with Tracy COLIN. Patient initially here for pneumonia and UTI, status post antibiotic treatment. Was doing well but was a stroke alert on overnight of , likely TIA involving right hemisphere with left facial droop but no evidence of a completed event on imaging [CTA head and neck and MRI]. Neurology evaluated, no change in her anticoagulation/antiplatelet. Will need follow-up as an outpatient with neurology. Patient awaiting transfer to SNF. On examination, patient on room air, NAD, no crackles/wheezes on auscultation, heart and lungs examination WNL. Reproducible chest pain. AOx3. LLE in orthopedic boot, contracture of left hand. I have seen and examined the patient and have discussed the case with the provider above. I agree with the assessment and plan as stated. Subjective Patient seen and examined. Follow-up for delirium, pneumonia, UTI, CHF. Patient not as alert today, mumbling at times. Some visual hallucinations still present. Reports ongoing chest pain however reproducible on exam. Has some shortness of breath this morning, currently receiving nebulizer treatment. Saturating well on room air. No abdominal pain or nausea. Physical Exam Constitutional: WD/WN, vitals as above no acute distress Respiratory: normal respiratory effort; no respiratory distress Auscultation: + diminished lung sounds Cardiovascular: Rate/Rhythm: regular rate and regular rhythm Vessels: normal peripheral pulses Extremities: no edema Gastrointestinal (Abdomen): Percussion/Palpation: abdomen soft; abdomen nontender Musculoskeletal: LLE in cam boot, John bandages in place to BLE, contractures of left hand Skin: no rashes, warm and dry Neurologic: no focal motor deficits Psychiatric: Orientation: oriented x 3 Insight: + limited insight Not as alert today, mumbling at times Results & Data Results & Data ([facility]) Vital Signs (Past 12 Hours) Vital Signs Temp Pulse Pulse Resp BP Pulse Ox 03/28/21 11:24 76 18 95 03/28/21 11:03 36.7 C 77 18 128/73 96 03/28/21 08:00 64 03/28/21 07:29 36.4 C L 58 L 18 112/67 96 03/28/21 05:07 36.7 C 68 18 110/66 92 Laboratory Results Short CBC 03/28/21 Range/Units 08:07 WBC 6.98 (4.8-10.8) K/uL Hgb 11.8 L (12.0-16.0) g/dL Hct 37.0 (37-47) % Plt Count 240 (130-400) K/uL [facility] 03/28/21 08:07 Sodium 139 Potassium 3.9 Chloride 108 H Carbon Dioxide 24 BUN 8 Creatinine 0.54 L Glucose 81 Calcium 9.5 Cardiac Enzymes 03/27/21 Range/Units 16:25 Troponin I < 0.015 (0-0.045) ng/ml Liver Function 03/28/21 Range/Units 08:07 Total Bilirubin 0.6 (0.2-1) mg/dl Direct Bilirubin 0.1 (0-0.2) mg/dl AST 9 L (15-37) U/L ALT 8 L (12-78) U/L Alkaline Phosphatase 81 (45-117) U/L Albumin 3.1 L (3.4-5.0) gm/dl
[2021-03-28] MEDS: ENOXAPARIN INJ 40 MG/0.4 ML SYR SQ SCH ×2 (20:34)
[2021-03-29] MEDS: DICLOFENAC SOD 1% GEL 100 GM TUBE EXT SCH ×5 (00:41→22:59)
[2021-03-29] MEDS: ZOLPIDEM TARTRATE 5 MG TAB PO PRN ×2 (01:10→23:10)
[2021-03-29 08:05] LABS: BUN Creatinine Ratio 17.2 (10-20); Calcium 8.8 mg/dl (8.5-10.1); Creatinine Clr Calc Pharmacy 82.5 ml/min; Est GFR (African American) 105.1 ml/min; Est GFR (Non-African American) 90.7 ml/min; Magnesium 1.6 mg/dl (1.8-2.4); Potassium 3.5 mmol/L (3.5-5.1)
[2021-03-29] MEDS ORDERED: MAGNESIUM SULFATE / D5W 1 GM/100 ML BAG IV ONE (08:13)
[2021-03-29] MEDS: amLODIPine BESYLATE 5 MG TAB PO SCH (08:47)
[2021-03-29] MEDS: ASPIRIN 81 MG ECTAB PO SCH (08:47)
[2021-03-29] MEDS: CARBIDOPA/LEVODOPA 25/100MG TAB PO SCH ×3 (08:48→20:30)
[2021-03-29] MEDS: ADVANCED PROBIOTIC 1250 MG CAPSULE PO SCH (08:48)
[2021-03-29] MEDS: PANTOprazole 40 MG TAB PO SCH (08:48)
[2021-03-29] MEDS: GABAPENTIN 100 MG CAP PO SCH ×3 (08:48→20:31)
[2021-03-29] MEDS: LACTASE 3000 UNIT TAB PO SCH ×3 (08:48→16:53)
[2021-03-29] MEDS: risperiDONE 0.5 MG TABLET PO SCH ×2 (08:49→20:30)
[2021-03-29] MEDS: LIDOCAINE 5% 1 PATCH TD SCH (08:51)
[2021-03-29] MEDS: POTASSIUM CHLORIDE 10 MEQ TABCR PO SCH ×2 (09:40→20:33)
[2021-03-29] MEDS: traMADol HCL 50 MG TABLET PO PRN (11:24)
[2021-03-29] MEDS: FERROUS SULFATE 325 MG TAB PO SCH (11:24)
--- NOTE | 2021-03-29 12:08 | Psychiatric Progress Note ---
Date of Service March 29, 2021 Impression / Recommendations Impression 76 yo female with history of paranoid ideations related to cognitive decline now with superimposed delirium resulting in worsening hallucinations and delusions. Started Risperdal 03/24/21. 03/29/21: no evidence of sialorrhea nor any evidence of worsening muscle tone or bradykinesia with higher dose of risperidone, slept well again. Paranoia still present, fluctuates throughout the day, today more paranoid about the risperidone but also has more insight into her auditory hallucinations and able to reality-test. 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 03/27/21: increase risperidone 0.25 mg qAM & 0.5 mg qHS. 03/26/21: continue risperidone 0.25 mg BID. 03/25/21: Continue Risperdal 0.25 mg BID, son aware of drooling and prefers to wait a few days to adjust rather than shift now to hs as he is pleased with improvement. 03/24/21: Patient expressed a preference for tabs rather than mtab which hadn't started yet. Will admin Risperdal 0.25 mg now and again this hs and monitor. She does not present with significant tremor at baseline, likely more bradykinesia presentation of her Parkinsons but will watch for worsening muscle rigidity. 03/23/21: Case reviewed briefly with Dr. Steen, reviewed labs, QTc, med list. Patient is on Sinemet for Parkinson's, will not hold for now as worsening mainly delirium but certainly can contribute to psychosis, especially georges. Recommend starting Risperdal M tab 0.25 mg this hs with likely titration, son supports this as designated family medical decision maker. If she refuses, if on cardiac rn would suggest Haldol 1 mg q4-6 prn IV. Risk Factors Assessment Do You Have Access To A Gun?: No Interval History Identifying Information Mrs. Maxwell is a 76 yo female from [place], admitted on 03/16/21 for pneumonia and UTI. Consult is by [facility] for paranoia and hallucinations. Chief Complaint "I'm having auditory hallucination of four children". Review of Systems Notes Reports stable sleep and appetite. Subjective Subjective Patient was seen & assessed and interval progress reviewed. Today she endorses feeling "not good" which she attributes to generalized pain and "hearing auditory hallucinations" describing hearing four children playing-2 boys and 2 girls. She also states concern about the risperidone stating that she may choose not to take it because she thinks it may make her AH worse. Reassured her that all of her team and family has noticed a positive change with the medication and we'd recommend she keep taking it. She also voiced some paranoia versus confusion about her cell phone and wondering why she was getting spam calls and if someone deleted her saved favorites in her phone. She denies any movement issues or drooling. Physical Exam Psychiatric Orientation: alert, oriented to person, oriented to place and oriented to time Apperance: appropriately dressed and appropriately groomed Eye Contact: good eye contact Motor Behavior: no abnormal motor movements; n EPS Speech: normal rate/rhythm/volume of speech Affect: + constricted affect Mood: + anxious mood Thought Process: + looseness of associations and + perseveration Thought Content: + paranoid Suicidal Thoughts: denies suicidal thoughts Homicidal Thoughts: denies homicidal thoughts Hallucinations: + auditory hallucinations and + visual hallucinations Cognition: remote memory grossly intact and language grossly intact Insight: + impaired insight Judgement: + impaired judgement Vital Signs (Past 24 Hours) Last Vital Signs Temp 36.7 C 03/29/21 11:05 Pulse 80 03/29/21 11:05 Resp 20 03/29/21 11:05 BP 122/70 03/29/21 11:05 Pulse Ox 97 03/29/21 11:05 Results & Data ([facility]) Laboratory Results Laboratory Results - last 24 hr 03/29/21 07:11 Sodium 139 Potassium 3.5 Chloride 106 Carbon Dioxide 25 Anion Gap 8.0 BUN 10 Creatinine 0.57 L Est Cr Clr Drug Dosing 82.5 Est GFR ( Amer) 105.1 Est GFR (Non-Af Amer) 90.7 BUN/Creatinine Ratio 17.2 Glucose 81 Calcium 8.8 Magnesium 1.6 L Current Inpatient Medications Current Inpatient Medications: Current Inpatient Medications Acetaminophen (Acetaminophen 325 Mg Tab) 650 mg PO Q4H PRN PRN Reason: pain/fever Stop: 04/11/21 16:59 Last Admin: 03/26/21 18:59 Dose: 650 mg Documented by: Albuterol (Albuterol 0.5% Neb Soln 2.5 Mg/0.5 Ml Vial) 2.5 mg NEB Q6R PRN PRN Reason: wheezing, SOB Stop: 04/13/21 18:59 Last Admin: 03/19/21 09:50 Dose: 2.5 mg Documented by: Albuterol (Albut/Ipratrop 3mg/0.5mg Neb 3 Ml Vial) 3 ml NEB Q4R PRN PRN Reason: Shortness Of Breath Or Wheezing Stop: 04/11/21 18:59 Last Admin: 03/28/21 11:17 Dose: 3 ml Documented by: Amlodipine Besylate (Amlodipine Besylate 5 Mg Tab) 5 mg PO QAM [facility] Stop: 04/22/21 12:14 Last Admin: 03/29/21 08:47 Dose: 5 mg Documented by: Aspirin (Aspirin 81 Mg Ectab) 81 mg PO DAILY [facility] Stop: 04/12/21 08:59 Last Admin: 03/29/21 08:47 Dose: 81 mg Documented by: Carbidopa/Levodopa (Carbidopa/Levodopa 25/100mg Tab) 1 tab PO TID [facility] Stop: 04/11/21 20:59 Last Admin: 03/29/21 08:48 Dose: 1 tab Documented by: Diclofenac Sodium (Diclofenac Sod 1% Gel 100 Gm Tube) 2 gm EXT Q6 [facility] Stop: 04/13/21 15:29 Last Admin: 03/29/21 11:24 Dose: 2 gm Documented by: Docusate Sodium (Docusate Sodium 100 Mg Cap) 100 mg PO DAILY PRN PRN Reason: Constipation Stop: 04/11/21 16:59 Last Admin: 03/18/21 08:07 Dose: 100 mg Documented by: Ezetimibe (Ezetimibe 10 Mg Tablet) 10 mg PO HS [facility] Stop: 04/11/21 20:59 Last Admin: 03/28/21 20:34 Dose: 10 mg Documented by: Enoxaparin Sodium (Enoxaparin Inj 40 Mg/0.4 Ml Syr) 40 mg SQ Q24H [facility] Stop: 04/11/21 16:59 Last Admin: 03/28/21 20:34 Dose: 40 mg Documented by: Ferrous Sulfate (Ferrous Sulfate 325 Mg Tab) 325 mg PO DAILY@1100 [facility] Stop: 04/12/21 10:59 Last Admin: 03/29/21 11:24 Dose: 325 mg Documented by: Gabapentin (Gabapentin 100 Mg Cap) 200 mg PO TID [facility] Stop: 04/22/21 20:59 Last Admin: 03/29/21 08:48 Dose: 200 mg Documented by: Haloperidol Lactate (Haloperidol Lactate 5 Mg/Ml 1 Ml Vial) 1 mg IV Q6 PRN PRN Reason: Anxiety/Agitation Stop: 04/23/21 12:15 Lactase (Lactase 3000 Unit Tab) 3,000 units PO AC [facility] Stop: 04/11/21 16:59 Last Admin: 03/29/21 11:24 Dose: 3,000 units Documented by: Lactobacillus Acidoph/Casei/Rhamnos (Advanced Probiotic 1250 Mg Capsule) 2 cap PO DAILY [facility] Stop: 04/14/21 14:29 Last Admin: 03/29/21 08:48 Dose: 2 cap Documented by: Lamotrigine (Lamotrigine 25 Mg Tab) 75 mg PO HS [facility] Stop: 04/11/21 20:59 Last Admin: 03/28/21 20:34 Dose: 75 mg Documented by: Lidocaine (Lidocaine 5% 1 Patch) 1 patch TD DAILY [facility] Stop: 04/12/21 08:59 Last Admin: 03/29/21 08:51 Dose: 1 patch Documented by: Meloxicam (Meloxicam 7.5 Mg Tab) 7.5 mg PO DAILY [facility] Stop: 04/12/21 08:59 Last Admin: 03/20/21 08:46 Dose: 7.5 mg Documented by: Miscellaneous (Toviaz-Order Awaiting Action) 1 ea N/A QS [facility] Stop: 04/12/21 00:00 Last Admin: 03/29/21 07:35 Dose: Not Given Documented by: Miscellaneous (Remove Lidoderm Patch) 1 ea N/A HS [facility] Stop: 04/11/21 20:59 Last Admin: 03/28/21 20:35 Dose: 1 ea Documented by: Pantoprazole Sodium (Pantoprazole 40 Mg Tab) 40 mg PO DAILY [facility] Stop: 04/12/21 08:59 Last Admin: 03/29/21 08:48 Dose: 40 mg Documented by: Polyethylene Glycol (Polyethylene (Miralax) 17 Gm Pack) 17 gm PO DAILY PRN PRN Reason: Constipation Stop: 04/11/21 16:59 Last Admin: 03/18/21 08:07 Dose: 17 gm Documented by: Potassium Chloride (Potassium Chloride 10 Meq Tabcr) 10 meq PO BID [facility] Stop: 04/11/21 20:59 Last Admin: 03/29/21 09:40 Dose: 10 meq Documented by: Risperidone (Risperidone 0.5 Mg Tablet) 0.25 mg PO QAM [facility] Stop: 04/27/21 08:59 Last Admin: 03/29/21 08:49 Dose: 0.25 mg Documented by: Risperidone (Risperidone 0.5 Mg Tablet) 0.5 mg PO HS [facility] Stop: 04/26/21 20:59 Last Admin: 03/28/21 20:34 Dose: 0.5 mg Documented by: Tramadol HCl (Tramadol Hcl 50 Mg Tablet) 50 mg PO BID PRN PRN Reason: Pain Stop: 04/11/21 16:59 Last Admin: 03/29/21 11:24 Dose: 50 mg Documented by: Zolpidem Tartrate (Zolpidem Tartrate 5 Mg Tab) 5 mg PO HS PRN PRN Reason: Sleep Stop: 04/21/21 21:50 Last Admin: 03/29/21 01:10 Dose: 5 mg Documented by:
[2021-03-29] MEDS: ACETAMINOPHEN 325 MG TAB PO PRN (13:15)
--- NOTE | 2021-03-29 13:34 | Hospitalist Progress Note ---
Date of Service March 29, 2021 Assessment & Plan (1) Pneumonia: (2) Catheter-associated urinary tract infection: Plan: This is a 76-year-old female with PMH Parkinson's, Ajtrucx-Fhdbx-Mlyxg disease, HTN, HLD, history of TIA, CKD stage III, chronic Romeo catheter with recurrent UTIs, wheelchair-bound, multiple lower extremity surgeries, who presented to the ED for evaluation of shortness of breath and wheezing. Being managed for the following: Delirium, Paranoia, hallucinations -Pt w/ hx of paranoid ideations related to cognitive decline now with superimposed delirium -Patient became more confused and was yelling and calling 911 on her cell phone and her family -Psychiatry consulted, patient initially started on Risperdal 0.25 mg twice daily then increased Risperdal to 0.25 mg every morning and 0.5 mg nightly on 03/27 Chest pain -Developed chest pain on 03/27 and was transferred to [facility] with telemetry -Troponin negative x2, EKG nonischemic -Reproducible on exam, likely musculoskeletal in nature Acute on chronic diastolic CHF - mild -Due to reports of shortness of breath today, chest x-ray was obtained showing mild pulmonary congestion -Lasix 20 mg IV x1 -Saturating well on room air -Echo 03/21/2021 -EF 55-60%, grade 2 diastolic dysfunction 03/14 CXR: Mild pulmonary edema. Possible small left pleural effusion 03/14 IV dose of Lasix RUQ abdominal pain -Patient having some nausea and right upper quadrant abdominal pain on 03/27 -Resolved -RUQ US unremarkable, LFTs WNL Sroke Alert Patient was a stroke alert overnight (03/20-03/21) Likely TIA - involving the right hemisphere with left facial droop yet on imaging has no evidence for a completed event Head and neck CTA, brain MRI unremarkable for acute findings Neurology consulted, input appreciated Do not have sufficient evidence to recommend adding Plavix to her aspirin but will observe her for recurrent events and if they do enlarge then certainly w ould add another antiplatelet agent Recommend to continue aspirin 81 mg daily, and 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 Fields Pneumonia Has bibasilar infiltration more on the right could be secondary to aspiration versus HCAP Initial lactic acid 3.2---> 1.9, no other signs of sepsis. MRSA screen negative Zosyn 03/12 --> change to Augmentin 03/14 -->Levaquin 03/15 d/t E.cloacae and E. coli in UCx --> stop date 03/19 Blood cultures negative Has had speech evaluation Recommended aspiration precaution during feeding - If the condition persist will need to have a formal barium swallow CAUTI: Chronic indwelling Romeo catheter History of recurrent UTIs. Patient overdue for follow-up with urology---> Alexandrea BETANCOURT to arrange for outpatient follow-up for management of her chronic Romeo. UA was suggestive of infection, 03/12 urine culture Enterobacter cloacae and E. coli Antibiotics as above CMT (Zkwcjnw-Jvniv-Ekjyr disease): S/p multiple lower extremity procedures, most recently s/p left knee closed reduction total knee arthroplasty subluxation on 02/16/2021 - patient is to remain nonweightbearing of the left lower extremity and limited weightbearing on the right lower extremity Abnormal Left ankle XR Patient complaining of multiple joint pain, more on the left leg 03/15 x-ray left ankle: A 1.8 cm linear ossific density posterior to the talus may represent an avulsion fracture from the dorsal calcaneus. Clinical correlation will be essential. Orthopedic consulted for left calcaneal superior posterior avulsion fracture status post fall: High tide walking boot removed, replaced with a dorsiflexion splint with a negative relief under the left heel and lambs wool padding to provide essentially neutral support for neutral dorsiflexion of the left ankle and heel and foot. Orthopedic recommending may use the walking boot for transfers or ambulating and wheelchair as necessary. Follow-up with outpatient orthopedics. Dr. Crain, [facility] [place] Parkinson disease: Continue carbidopa-levodopa Chronic pain: Continue home regimen DVT prophylaxis: SQ Lovenox Disposition: Unable to be placed at [facility] due to need for uziel lift. Per discussion with Marianne Walls of Case management, [place] [facility] waiting to hear back. Admission and Anticipated Discharge Date Admission Date: March 12, 2021 Supervising Physician Co-Signing Physician Notes Patient seen and examined at the bedside. Communicated with Esther COLIN. Patient initially here for pneumonia and UTI, status post antibiotic treatment. Was doing well but was a stroke alert on overnight of , likely TIA involving right hemisphere with left facial droop but no evidence of a completed event on imaging [CTA head and neck and MRI]. Neurology evaluated, no change in her anticoagulation/antiplatelet. Will need follow-up as an outpatient with neurology. Patient awaiting transfer to SNF. On examination, patient on room air, NAD, no crackles/wheezes on auscultation, heart and lungs examination WNL. AOx3. LLE in orthopedic boot, contracture of left hand. I have seen and examined the patient and have discussed the case with the provider above. I agree with the assessment and plan as stated. Subjective Patient seen and examined in 254-1. Follow-up for delirium, pneumonia, UTI, CHF. Patient alert during interview with intermittent mumbling. Denying visual hallucinations at this time. Feels nauseated this morning, which she is attributing to eating daily at [facility]. No vomiting or diarrhea. No fever/chills, CP unchanged, reproducible on exam. No SOB, abdominal pain, dysuria. Review of Systems Review of Systems: At least ten systems reviewed and negative except as noted in the HPI. Physical Exam Physical Exam: Gen: WD/WN, NAD, lying in bed, A&Ox3 with limited insight, anxious HEENT: Normocephalic, atraumatic, conjunctivae moist, sclerae anicteric, mucous membranes moist Lung: Clear to Auscultation bilaterally but diminished. No wheezes/rales/rhonchi Heart: Regular rate, regular rhythm, no murmurs, rubs, or gallops Abdomen: Soft, NT, ND +BS x 4 Extremities: LLE in cam boot, John bandages in place to BLE, contractures of left hand. No edema Skin: Warm, no rash Results & Data Results & Data ([facility]) Vital Signs (Past 12 Hours) Vital Signs Temp Pulse Resp BP Pulse Ox 03/29/21 11:05 36.7 C 80 20 122/70 97 03/29/21 07:28 36.5 C 58 L 18 126/78 96 Laboratory Results [facility] 03/29/21 07:11 Sodium 139 Potassium 3.5 Chloride 106 Carbon Dioxide 25 BUN 10 Creatinine 0.57 L Glucose 81 Calcium 8.8 Diagnostic Findings Chest X-Ray 03/12/21 11:10 XR chest 1V portable CLINICAL HISTORY: shob, fluid retention TECHNIQUE: Single frontal radiograph of the chest was obtained. Comparison: Comparison is made to chest one view 11/16/2020 FINDINGS: Left total shoulder reverse shoulder arthroplasty is seen. Calcified aortic knob is seen. Bilateral lower lung predominant airspace opacities are seen. No evidence of pleural effusion or pneumothorax. IMPRESSION: Bilateral lower lung predominant airspace opacities which may represent atelectasis, pneumonia, and/or aspiration. ACT 112: Negative or not required by law. Electronically signed by: Shayne Bullock M.D. 03/12/2021 11:53 AM Chest X-Ray 03/14/21 17:05 XR chest 1V portable CLINICAL HISTORY: sob TECHNIQUE: Single frontal radiograph of the chest was obtained. Comparison: Comparison is made to chest one view 03/12/2021 FINDINGS: No lines and tubes are seen. Cardiomegaly is noted. Prominence and cephalization of the vasculature is seen. There is a possible small left pleural effusion. IMPRESSION: Mild pulmonary edema. Possible small left pleural effusion. ACT 112: Negative or not required by law. Electronically signed by: Shayne Bullock M.D. 03/14/2021 5:40 PM Chest X-Ray 03/15/21 03:56 XR chest 1V portable HISTORY: Shortness of breath. COMPARISON: Chest 03/14/2021. FINDINGS: No pneumothorax. No pleural effusions. The heart remains mildly enlarged. There is a left shoulder prosthesis. There is mild central pulmonary vascular congestion without overt edema. This is similar to the prior study. Small patchy left basilar airspace opacity has improved. IMPRESSION: 1. Cardiomegaly with mild congestive change. This is similar to the prior study. 2. Improved aeration within the small left basilar airspace opacity. ACT 112: Negative or not required by law. Electronically signed by: Alfonzo Sparrow M.D. 03/15/2021 8:44 AM Ankle X-Ray 03/15/21 14:55 LEFT ANKLE 3 VIEWS CLINICAL HISTORY: Left ankle pain. FINDINGS: 3 views of the left ankle are compared to study dated 08/05/2016. The skeletal structures are heterogeneously osteopenic. A 1.8 cm linear ossific density posterior to the talus may represent an avulsion fracture from the dorsal calcaneus. No additional fracture is suggested at the ankle joint. No bony erosion or periostitis is seen. The ankle mortise is intact. No joint effusion is identified. There is a plantar calcaneal enthesophyte. Soft tissue edema is present around the ankle. Atherosclerotic calcification is noted in the regional arteries. IMPRESSION: 1. A 1.8 cm linear ossific density posterior to the talus may represent an avulsion fracture from the dorsal calcaneus. Clinical correlation will be essential. 2. No additional findings are concerning for acute fracture. 3. Soft tissue swelling. Electronically signed by: Van Henry M.D. 03/15/2021 5:22 PM Chest CTA 03/20/21 23:19 CT ANGIOGRAPHY OF THE CHEST, PULMONARY EMBOLUS PROTOCOL CLINICAL HISTORY: Atypical chest pain. COMPARISON STUDY: Chest CT October 02, 2009. Chest radiograph March 15, 2021. TECHNIQUE: Following IV administration of 121 mL of Optiray, helical axial images of the chest were obtained utilizing the pulmonary embolus protocol. Maximal intensity projections and sagittal and coronal reformats were viewed on an independent 3D workstation. IV contrast was administered without complication. Automated exposure control was utilized for the study. A dose lowering technique was utilized adhering to the principles of ALARA. FINDINGS: No pulmonary emboli are identified although the segmental and subsegmental pulmonary arteries are suboptimally assessed on this exam. There is no thoracic aortic dissection. The caliber of the thoracic aorta is normal. There is moderate cardiomegaly. No pneumothorax or pleural effusion is noted. Mild groundglass and tree-in-bud nodules within the bilateral lower lobes are noted. There is a small hiatal hernia. Subpleural lower lobe opacities reflect atelectasis. There is no thoracic lymphadenopathy. No acute fracture or suspicious lesion is identified within visualized skeletal structures. IMPRESSION: 1. No pulmonary emboli identified although segmental and subsegmental pulmonary arteries suboptimally assessed on this exam. 2. No thoracic aortic dissection. 3. Moderate cardiomegaly. 4. Mild ground glass opacities and tree-in-bud nodules within the bilateral lower lobes. This favors a mild infectious process. A chest CT in in 3 months to ensure resolution is recommended ACT 112: Negative or not required by law. Electronically signed by: David Spring M.D. 03/21/2021 9:[address] 03/20/21 23:19 CT head/brain wo con CLINICAL HISTORY: Stroke protocol. Weakness COMPARISON STUDY: No previous studies for comparison. TECHNIQUE: Standard CT of the Brain was performed without IV contrast. A dose lowering technique was utilized adhering to the principles of ALARA. FINDINGS: Extraaxial space: There is no evidence for subdural hematoma. There are no extra-axial fluid collections. Ventricles and cisterns: The ventricles are normal in size and configuration. There is no evidence for midline shift or mass effect. Parenchyma: There is no subarachnoid or intraparenchymal hemorrhage. There is no evidence for an acute infarct or cerebral edema. There is homogeneous attenuation of the brain parenchyma. There are no gross mass lesions. Osseous structures: There is no evidence for an acute fracture. The visualized paranasal sinuses are clear. The mastoid air cells are clear bilaterally. Soft tissues: There is no evidence for focal soft tissue swelling. IMPRESSION: No acute intracerebral pathology. ACT 112: Negative or not required by law. Electronically signed by: Eliot Webber M.D. 03/21/2021 7:40 AM Head CTA 03/20/21 23:20 CT angio head w con CLINICAL HISTORY: Stroke protocol. Evaluate for CVA COMPARISON STUDY: CT brain without contrast from 03/20/2021 and previous CTA of the brain from 11/03/2020 TECHNIQUE: CT Angio of the brain was performed.followed by image post processing with coronal, and sagittal MIP reformats. Contrast Volume: Optiray 320, 121 ml FINDINGS: Vascular findings: There is normal enhancement within the internal carotid arteries bilaterally. There is normal enhancement of the anterior and middle cerebral arteries bilaterally. 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 However, the posterior communicating arteries are patent bilaterally with filling of the distal posterior cerebral arteries bilaterally and normal flow present. Findings are unchanged. Nonvascular findings: There is homogeneous attenuation of the brain parenchyma bilaterally. There is no evidence for an acute infarct or cerebral edema. IMPRESSION: Essentially negative CT angiogram of the brain with contrast. There is no significant interval change. ACT 112: Negative or not required by law. Electronically signed by: Eliot Webber M.D. 03/21/2021 7:47 AM Neck CTA 03/20/21 23:20 CT ANGIOGRAPHY OF THE NECK WITH CONTRAST CLINICAL HISTORY: Cerebrovascular accident. COMPARISON STUDY: CTA of the neck November 03, 2020. Technique: CT angiography of the carotid and vertebral arteries was obtained using Optiray and 3D reconstruction on an independent workstation. NASCET criteria was utilized. Automated exposure control was utilized for the study. A dose lowering technique was utilized adhering to the principles of ALARA. CT DOSE: 2447.00 mGy.cm Findings: Please note that the chest CT and CTA of the head will be reported separately. Postoperative findings within the cervical spine are noted. There is no acute cervical spine fracture. No cervical lymphadenopathy. The bilateral common carotid, cervical internal carotid and vertebral arteries are patent. No dissection within these vessels is identified. There is minimal plaque within the bilateral carotid bifurcations. No aneurysm within the neck is noted. There is no intraluminal thrombus IMPRESSION: Unremarkable CTA of the neck. ACT 112: Negative or not required by law. Electronically signed by: David Spring M.D. 03/21/2021 8:59 AM Brain MRI 03/21/21 00:50 MR brain wo con CLINICAL HISTORY: Evaluate for CVA. Previous stroke alert. COMPARISON STUDY: CT brain from 03/20/2021 and previous MR brain from 11/06/2020 TECHNIQUE: Multiplanar multisequence images of the Brain were performed without IV contrast. Diffusion weighted imaging and ADC mapping was also performed. FINDINGS: Extra-axial space: There is no evidence for a subdural hematoma, There are no extra-axial fluid collections. Ventricles and cisterns: The ventricles are normal in size and configuration. There is no evidence for midline shift or mass effect. Parenchyma: There is no evidence for an acute hemorrhage or infarct. No acute diffusion abnormalities are noted on diffusion weighted imaging or ADC mapping. There is normal villa-white differentiation. The sulci and gyri appear normal without effacement. The midline structures are unremarkable. The posterior fossa structures appear normal. There is no evidence for mass lesion. Osseous structures: The paranasal sinuses are well aerated. The mastoid air cells are well aerated. Soft tissues: No focal soft tissue abnormalities are identified. IMPRESSION: No acute intracranial abnormalities. ACT 112: Negative or not required by law. Electronically signed by: Eliot Webber M.D. 03/21/2021 9:43 AM Gallbladder Ultrasound 03/27/21 14:44 ABDOMINAL ULTRASOUND, RIGHT UPPER QUADRANT HISTORY: Right upper quadrant abdominal pain.. COMPARISON: None. FINDINGS: Pancreas: The pancreatic head and tail are obscured by overlying bowel gas. The remaining portions of the pancreas are within normal limits. Liver: The liver is echogenic consistent with fatty change. 16 cm in length. Gallbladder: No gallbladder wall thickening. No gallstones. CBD: 8 mm. This is considered slightly distended given the patient's age. Right kidney: No hydronephrosis. Multiple cysts with the largest in the upper pole measuring 3.5 cm. This contains a septation IMPRESSION: 1. Normal gallbladder. No gallstones. 2. Mild hepatic steatosis. 3. Slightly distended common bile duct measuring 8 mm given the patient's age. 4. Right renal cysts. Dominant 3.5 cm cyst within the upper pole contains a septation. Consider one year ultrasound follow-up to ensure stability. ACT 112: Negative or not required by law. Electronically signed by: Alfonzo Sparrow M.D. 03/27/2021 8:54 PM Chest X-Ray 03/28/21 11:47 SINGLE VIEW CHEST CLINICAL HISTORY: Dyspnea. FINDINGS: An AP, portable, upright chest radiograph is compared to study dated 03/15/2021 and correlated with chest CT dated 03/20/2021. The heart is enlarged noting atherosclerotic calcification of the thoracic aorta. There is prominence of the pulmonary vasculature. Chronic interstitial thickening is similar to previous. There is bibasilar scarring/atelectasis. No airspace consolidation or large pleural effusion is identified. Chronic elevation of the right hemidiaphragm is unchanged. No pneumothorax is seen. The skeletal structures are osteopenic. The bony thorax is grossly intact. A left shoulder arthroplasty is in place. IMPRESSION: Cardiomegaly with prominence of the pulmonary vasculature. Correlate clinically for evidence of mild congestive change. ACT 112: Negative or not required by law. Electronically signed by: Van Henry M.D. 03/28/2021 1:11 PM
[2021-03-29] MEDS ORDERED: POTASSIUM CHLORIDE CRTAB 20 MEQ TABCR PO STA ×2 (14:33→16:59)
[2021-03-29] MEDS: lamoTRIgine 25 MG TAB PO SCH (20:28)
[2021-03-29] MEDS: EZETIMIBE 10 MG TABLET PO SCH (20:28)
[2021-03-29] MEDS: ENOXAPARIN INJ 40 MG/0.4 ML SYR SQ SCH (20:38)
[2021-03-30] MEDS: DICLOFENAC SOD 1% GEL 100 GM TUBE EXT SCH ×4 (06:14→23:28)
[2021-03-30] MEDS: traMADol HCL 50 MG TABLET PO PRN ×2 (07:55→23:34)
[2021-03-30] MEDS: LACTASE 3000 UNIT TAB PO SCH ×3 (07:56→17:19)
[2021-03-30] MEDS: amLODIPine BESYLATE 5 MG TAB PO SCH (08:57)
[2021-03-30] MEDS: GABAPENTIN 100 MG CAP PO SCH ×3 (08:58→20:45)
[2021-03-30] MEDS: CARBIDOPA/LEVODOPA 25/100MG TAB PO SCH ×3 (08:58→20:47)
[2021-03-30] MEDS: POTASSIUM CHLORIDE 10 MEQ TABCR PO SCH ×2 (08:59→21:08)
[2021-03-30] MEDS: ADVANCED PROBIOTIC 1250 MG CAPSULE PO SCH (08:59)
[2021-03-30] MEDS: LIDOCAINE 5% 1 PATCH TD SCH (08:59)
[2021-03-30] MEDS: ASPIRIN 81 MG ECTAB PO SCH (08:59)
[2021-03-30] MEDS: PANTOprazole 40 MG TAB PO SCH (09:00)
[2021-03-30] MEDS: risperiDONE 0.5 MG TABLET PO SCH ×4 (09:00→20:47)
--- NOTE | 2021-03-30 11:47 | Psychiatric Progress Note ---
Date of Service March 30, 2021 Impression / Recommendations Impression 76 yo female with history of paranoid ideations related to cognitive decline now with superimposed delirium resulting in worsening hallucinations and delusions. Started Risperdal 03/24/21. 03/30/21: no evidence of sialorrhea nor any evidence of worsening muscle tone or bradykinesia with higher dose of risperidone, slept well again. Paranoia still present, fluctuates throughout the day, more coherent today in terms of topics of conversation and expressed willingness to continue with risperidone. 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 03/29/21: risperidone 0.25 mg qAM & 0.5 mg qHS 03/28/21: continue with risperidone 0.25 mg qAM & 0.5 mg qhs which she is tolerating well with improvement in sialorrhea. 03/27/21: increase risperidone 0.25 mg qAM & 0.5 mg qHS. 03/26/21: continue risperidone 0.25 mg BID. 03/25/21: Continue Risperdal 0.25 mg BID, son aware of drooling and prefers to wait a few days to adjust rather than shift now to hs as he is pleased with improvement. 03/24/21: Patient expressed a preference for tabs rather than mtab which hadn't started yet. Will admin Risperdal 0.25 mg now and again this hs and monitor. She does not present with significant tremor at baseline, likely more bradykinesia presentation of her Parkinsons but will watch for worsening muscle rigidity. 03/23/21: Case reviewed briefly with Dr. Steen, reviewed labs, QTc, med list. Patient is on Sinemet for Parkinson's, will not hold for now as worsening mainly delirium but certainly can contribute to psychosis, especially georges. Recommend starting Risperdal M tab 0.25 mg this hs with likely titration, son supports this as designated family medical decision maker. If she refuses, if on alarm security or surveillance monitor would suggest Haldol 1 mg q4-6 prn IV. Risk Factors Assessment Do You Have Access To A Gun?: No Interval History Identifying Information Mrs. Maxwell is a 76 yo female from [place], admitted on 03/16/21 for pneumonia and UTI. Consult is by [facility] hospitalist service for paranoia and hallucinations. Chief Complaint "I told a joke yesterday that offended someone I think". Review of Systems Notes Reports stable sleep and appetite. No chest pain today. Notes some muscle /foot pain. Subjective Subjective Patient was seen & assessed and interval progress reviewed. Chen reports improvement in pain today and stable mood. She initially refused her risperidone this morning but then accepted it. We discussed why it is helpful in the context of her Parkinson's disease and she stated willingness to keep taking it and understanding of why it's helpful. She was able to discuss the recent weather, her 's medical conditions and a joke she told all in a very coherent and reality-based manner. She did express some paranoia about there being a sign on her door stating she has STD but responded to reassurance about this. No endorsement of or today. Denies any side effects from the risperidone. Physical Exam Psychiatric Orientation: alert, oriented x 3 and cooperative Apperance: appropriately dressed and appropriately groomed Eye Contact: good eye contact Motor Behavior: no abnormal motor movements; n EPS Speech: normal rate/rhythm/volume of speech Affect: + constricted affect Mood: + anxious mood Thought Process: + perseveration Thought Content: + paranoid Suicidal Thoughts: denies suicidal thoughts Homicidal Thoughts: denies homicidal thoughts Hallucinations: no auditory hallucinations and no visual hallucinations Cognition: recent memory grossly intact, remote memory grossly intact and language grossly intact; + attention not intact Insight: + impaired insight Judgement: + impaired judgement Vital Signs (Past 24 Hours) Last Vital Signs Temp 36.7 C 03/30/21 07:42 Pulse 70 03/30/21 07:42 Resp 16 03/30/21 07:42 BP 120/72 03/30/21 07:42 Pulse Ox 96 03/30/21 07:42 Results & Data ([facility]) Current Inpatient Medications Current Inpatient Medications: Current Inpatient Medications Acetaminophen (Acetaminophen 325 Mg Tab) 650 mg PO Q4H PRN PRN Reason: pain/fever Stop: 04/11/21 16:59 Last Admin: 03/29/21 13:15 Dose: 650 mg Documented by: Albuterol (Albuterol 0.5% Neb Soln 2.5 Mg/0.5 Ml Vial) 2.5 mg NEB Q6R PRN PRN Reason: wheezing, SOB Stop: 04/13/21 18:59 Last Admin: 03/19/21 09:50 Dose: 2.5 mg Documented by: Albuterol (Albut/Ipratrop 3mg/0.5mg Neb 3 Ml Vial) 3 ml NEB Q4R PRN PRN Reason: Shortness Of Breath Or Wheezing Stop: 04/11/21 18:59 Last Admin: 03/28/21 11:17 Dose: 3 ml Documented by: Amlodipine Besylate (Amlodipine Besylate 5 Mg Tab) 5 mg PO QAM MARIBELL Stop: 04/22/21 12:14 Last Admin: 03/30/21 08:57 Dose: 5 mg Documented by: Aspirin (Aspirin 81 Mg Ectab) 81 mg PO DAILY MARIBELL Stop: 04/12/21 08:59 Last Admin: 03/30/21 08:59 Dose: 81 mg Documented by: Carbidopa/Levodopa (Carbidopa/Levodopa 25/100mg Tab) 1 tab PO TID MARIBELL Stop: 04/11/21 20:59 Last Admin: 03/30/21 08:58 Dose: 1 tab Documented by: Diclofenac Sodium (Diclofenac Sod 1% Gel 100 Gm Tube) 2 gm EXT Q6 MARIBELL Stop: 04/13/21 15:29 Last Admin: 03/30/21 06:14 Dose: Not Given Documented by: Docusate Sodium (Docusate Sodium 100 Mg Cap) 100 mg PO DAILY PRN PRN Reason: Constipation Stop: 04/11/21 16:59 Last Admin: 03/18/21 08:07 Dose: 100 mg Documented by: Ezetimibe (Ezetimibe 10 Mg Tablet) 10 mg PO HS MARIBELL Stop: 04/11/21 20:59 Last Admin: 03/29/21 20:28 Dose: 10 mg Documented by: Enoxaparin Sodium (Enoxaparin Inj 40 Mg/0.4 Ml Syr) 40 mg SQ Q24H MARIBELL Stop: 04/11/21 16:59 Last Admin: 03/29/21 20:38 Dose: 40 mg Documented by: Ferrous Sulfate (Ferrous Sulfate 325 Mg Tab) 325 mg PO DAILY@1100 MARIBELL Stop: 04/12/21 10:59 Last Admin: 03/29/21 11:24 Dose: 325 mg Documented by: Gabapentin (Gabapentin 100 Mg Cap) 200 mg PO TID MARIBELL Stop: 04/22/21 20:59 Last Admin: 03/30/21 08:58 Dose: 200 mg Documented by: Haloperidol Lactate (Haloperidol Lactate 5 Mg/Ml 1 Ml Vial) 1 mg IV Q6 PRN PRN Reason: Anxiety/Agitation Stop: 04/23/21 12:15 Lactase (Lactase 3000 Unit Tab) 3,000 units PO AC MARIBELL Stop: 04/11/21 16:59 Last Admin: 03/30/21 07:56 Dose: 3,000 units Documented by: Lactobacillus Acidoph/Casei/Rhamnos (Advanced Probiotic 1250 Mg Capsule) 2 cap PO DAILY MARIBELL Stop: 04/14/21 14:29 Last Admin: 03/30/21 08:59 Dose: 2 cap Documented by: Lamotrigine (Lamotrigine 25 Mg Tab) 75 mg PO HS MARIBELL Stop: 04/11/21 20:59 Last Admin: 03/29/21 20:28 Dose: 75 mg Documented by: Lidocaine (Lidocaine 5% 1 Patch) 1 patch TD DAILY MARIBELL Stop: 04/12/21 08:59 Last Admin: 03/30/21 08:59 Dose: 1 patch Documented by: Meloxicam (Meloxicam 7.5 Mg Tab) 7.5 mg PO DAILY MARIBELL Stop: 04/12/21 08:59 Last Admin: 03/20/21 08:46 Dose: 7.5 mg Documented by: Miscellaneous (Toviaz-Order Awaiting Action) 1 ea N/A QS MARIBELL Stop: 04/12/21 00:00 Last Admin: 03/30/21 07:56 Dose: Not Given Documented by: Miscellaneous (Remove Lidoderm Patch) 1 ea N/A HS MARIBELL Stop: 04/11/21 20:59 Last Admin: 03/29/21 20:36 Dose: 1 ea Documented by: Pantoprazole Sodium (Pantoprazole 40 Mg Tab) 40 mg PO DAILY MARIBELL Stop: 04/12/21 08:59 Last Admin: 03/30/21 09:00 Dose: 40 mg Documented by: Polyethylene Glycol (Polyethylene (Miralax) 17 Gm Pack) 17 gm PO DAILY PRN PRN Reason: Constipation Stop: 04/11/21 16:59 Last Admin: 03/18/21 08:07 Dose: 17 gm Documented by: Potassium Chloride (Potassium Chloride 10 Meq Tabcr) 10 meq PO BID AMRIBELL Stop: 04/11/21 20:59 Last Admin: 03/30/21 08:59 Dose: 10 meq Documented by: Risperidone (Risperidone 0.5 Mg Tablet) 0.25 mg PO QAM MARIBELL Stop: 04/27/21 08:59 Last Admin: 03/30/21 10:21 Dose: 0.25 mg Documented by: Risperidone (Risperidone 0.5 Mg Tablet) 0.5 mg PO HS MARIBELL Stop: 04/26/21 20:59 Last Admin: 03/29/21 20:30 Dose: 0.5 mg Documented by: Tramadol HCl (Tramadol Hcl 50 Mg Tablet) 50 mg PO BID PRN PRN Reason: Pain Stop: 04/11/21 16:59 Last Admin: 03/30/21 07:55 Dose: 50 mg Documented by: Zolpidem Tartrate (Zolpidem Tartrate 5 Mg Tab) 5 mg PO HS PRN PRN Reason: Sleep Stop: 04/21/21 21:50 Last Admin: 03/29/21 23:10 Dose: 5 mg Documented by:
[2021-03-30] MEDS: FERROUS SULFATE 325 MG TAB PO SCH (12:13)
[2021-03-30] MEDS: ACETAMINOPHEN 325 MG TAB PO PRN (12:21)
--- NOTE | 2021-03-30 14:44 | Hospitalist Progress Note ---
Date of Service March 30, 2021 Assessment & Plan (1) Pneumonia: (2) Catheter-associated urinary tract infection: Plan: This is a 76-year-old female with PMH Parkinson's, Lywxxbb-Ulftr-Hdlca disease, HTN, HLD, history of TIA, CKD stage III, chronic Romeo catheter with recurrent UTIs, wheelchair-bound, multiple lower extremity surgeries, who presented to the ED for evaluation of shortness of breath and wheezing. Being managed for the following: Delirium, Paranoia, hallucinations -Pt w/ hx of paranoid ideations related to cognitive decline now with superimposed delirium -Patient became more confused and was yelling and calling 911 on her cell phone and her family -Psychiatry consulted, patient initially started on Risperdal 0.25 mg twice daily then increased Risperdal to 0.25 mg every morning and 0.5 mg nightly on 03/27 Chest pain -Developed chest pain on 03/27 and was transferred to [facility] with telemetry -Troponin negative x2, EKG nonischemic -Reproducible on exam, likely musculoskeletal in nature Acute on chronic diastolic CHF - mild -Due to reports of shortness of breath today, chest x-ray was obtained showing mild pulmonary congestion -Lasix 20 mg IV x1 -Saturating well on room air -Echo 03/21/2021 -EF 55-60%, grade 2 diastolic dysfunction 03/14 CXR: Mild pulmonary edema. Possible small left pleural effusion 03/14 IV dose of Lasix RUQ abdominal pain -Patient having some nausea and right upper quadrant abdominal pain on 03/27 -Resolved -RUQ US unremarkable, LFTs WNL Stroke Alert Patient was a stroke alert overnight (03/20-03/21) Likely TIA - involving the right hemisphere with left facial droop yet on imaging has no evidence for a completed event Head and neck CTA, brain MRI unremarkable for acute findings Neurology consulted, input appreciated Do not have sufficient evidence to recommend adding Plavix to her aspirin but will observe her for recurrent events and if they do enlarge then certainly w ould add another antiplatelet agent Recommend to continue aspirin 81 mg daily, and 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 Fields Pneumonia Has bibasilar infiltration more on the right could be secondary to aspiration versus HCAP Initial lactic acid 3.2---> 1.9, no other signs of sepsis. MRSA screen negative Zosyn 03/12 --> change to Augmentin 03/14 -->Levaquin 03/15 d/t E.cloacae and E. coli in UCx --> stop date 03/19 Blood cultures negative Has had speech evaluation Recommended aspiration precaution during feeding - If the condition persist will need to have a formal barium swallow CAUTI: Chronic indwelling Romeo catheter History of recurrent UTIs. Patient overdue for follow-up with urology---> Alexandrea BETANCOURT to arrange for outpatient follow-up for management of her chronic Romeo UA was suggestive of infection, 03/12 urine culture Enterobacter cloacae and E. coli Antibiotics as above CMT (Madebsz-Gquwg-Utzwj disease): S/p multiple lower extremity procedures, most recently s/p left knee closed reduction total knee arthroplasty subluxation on 02/16/2021 - patient is to remain nonweightbearing of the left lower extremity and limited weightbearing on the right lower extremity Abnormal Left ankle XR Patient complaining of multiple joint pain, more on the left leg 03/15 x-ray left ankle: A 1.8 cm linear ossific density posterior to the talus may represent an avulsion fracture from the dorsal calcaneus. Clinical correlation will be essential. Orthopedic consulted for left calcaneal superior posterior avulsion fracture status post fall: High tide walking boot removed, replaced with a dorsiflexion splint with a negative relief under the left heel and lambs wool padding to provide essentially neutral support for neutral dorsiflexion of the left ankle and heel and foot. Orthopedic recommending may use the walking boot for transfers or ambulating and wheelchair as necessary. Follow-up with outpatient orthopedics. Dr. Crain, [facility]. Parkinson disease: Continue carbidopa-levodopa Chronic pain: Continue home regimen DVT prophylaxis: SQ Lovenox Disposition: Unable to be placed at [facility] due to need for uziel lift. Per discussion with Marianne Walls of Case management, referrals placed at other [facility] and waiting to hear back. Also working on paperwork for eventual in home services Admission and Anticipated Discharge Date Admission Date: March 12, 2021 Supervising Physician Co-Signing Physician Notes Patient seen and examined at the bedside. Communicated with Esther KRUEGER Patient initially here for pneumonia and UTI, status post antibiotic treatment. Was doing well but was a stroke alert on overnight of , likely TIA involving right hemisphere with left facial droop but no evidence of a completed event on imaging [CTA head and neck and MRI]. Neurology evaluated, no change in her anticoagulation/antiplatelet. Will need follow-up as an outpatient with neurology. Patient awaiting transfer to SNF. On examination, patient on room air, NAD, no crackles/wheezes on auscultation, heart and lungs examination WNL. AOx3. LLE in orthopedic boot, contracture of left hand. Chest pain reproducible. I have seen and examined the patient and have discussed the case with the provider above. I agree with the assessment and plan as stated. Subjective Patient seen and examined in 359-1. Follow-up for delirium, pneumonia, UTI, CHF. Patient alert during interview, feeling better than yesterday. Does still have diffuse body pain that has been ongoing. Endorses chest pain but "knows it is muscular". Denying visual hallucinations at this time. No longer feeling nauseated. No SOB, abdominal pain. No dysuria. Having bowel movements. Review of Systems Review of Systems: At least ten systems reviewed and negative except as noted in the HPI. Physical Exam Physical Exam: Gen: WD/WN, NAD, lying in bed, A&Ox3 with limited insight HEENT: Normocephalic, atraumatic, conjunctivae moist, sclerae anicteric, mucous membranes moist Lung: Clear to Auscultation bilaterally but diminished. No wheezes/rales/rhonchi Heart: Regular rate, regular rhythm, no murmurs, rubs, or gallops Abdomen: Soft, NT, ND +BS x 4 Extremities: LLE in cam boot, John bandages in place to BLE, contractures of left hand. No edema Skin: Warm, no rash Results & Data Results & Data ([facility]) Vital Signs (Past 12 Hours) Vital Signs Temp Pulse Resp BP Pulse Ox 03/30/21 07:42 36.7 C 70 16 120/72 96
[2021-03-30] MEDS: ZOLPIDEM TARTRATE 5 MG TAB PO PRN (20:44)
[2021-03-30] MEDS: EZETIMIBE 10 MG TABLET PO SCH (20:45)
[2021-03-30] MEDS: lamoTRIgine 25 MG TAB PO SCH (20:45)
[2021-03-30] MEDS: ENOXAPARIN INJ 40 MG/0.4 ML SYR SQ SCH (20:47)
[2021-03-31] MEDS: DICLOFENAC SOD 1% GEL 100 GM TUBE EXT SCH ×4 (04:47→22:05)
[2021-03-31] MEDS: ACETAMINOPHEN 325 MG TAB PO PRN (04:58)
[2021-03-31 07:18] LABS: BUN Creatinine Ratio 19.1 (10-20); Calcium 9.4 mg/dl (8.5-10.1); Creatinine Clr Calc Pharmacy 78.3 ml/min; Est GFR (African American) 103.3 ml/min; Est GFR (Non-African American) 89.2 ml/min; Magnesium 1.9 mg/dl (1.8-2.4); Potassium 3.9 mmol/L (3.5-5.1)
[2021-03-31] MEDS: LACTASE 3000 UNIT TAB PO SCH ×3 (08:22→17:10)
[2021-03-31] MEDS: risperiDONE 0.5 MG TABLET PO SCH ×2 (08:23→20:14)
[2021-03-31] MEDS: amLODIPine BESYLATE 5 MG TAB PO SCH (08:23)
[2021-03-31] MEDS: CARBIDOPA/LEVODOPA 25/100MG TAB PO SCH ×3 (08:23→20:14)
[2021-03-31] MEDS: LIDOCAINE 5% 1 PATCH TD SCH (08:24)
[2021-03-31] MEDS: PANTOprazole 40 MG TAB PO SCH (08:24)
[2021-03-31] MEDS: ADVANCED PROBIOTIC 1250 MG CAPSULE PO SCH (08:24)
[2021-03-31] MEDS: GABAPENTIN 100 MG CAP PO SCH ×3 (08:25→20:14)
[2021-03-31] MEDS: ASPIRIN 81 MG ECTAB PO SCH (08:25)
[2021-03-31] MEDS: POTASSIUM CHLORIDE 10 MEQ TABCR PO SCH ×2 (08:58→20:20)
[2021-03-31] MEDS: traMADol HCL 50 MG TABLET PO PRN ×2 (09:04→18:19)
[2021-03-31] MEDS: FERROUS SULFATE 325 MG TAB PO SCH (11:59)
--- NOTE | 2021-03-31 13:32 | Psychiatric Progress Note ---
Date of Service March 31, 2021 Impression / Recommendations Impression 76 yo female with history of paranoid ideations related to cognitive decline now with superimposed delirium resulting in worsening hallucinations and delusions. Started Risperdal 03/24/21. 03/31/21: parkinson's symptoms seem baseline, care reviewed with son who supports ongoing titration of Risperdal. 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 Consider splitting am dose if evidence of worsening EPS. 03/30/21: continue with risperidone. 03/29/21: risperidone 0.25 mg qAM & 0.5 mg qHS 03/28/21: continue with risperidone 0.25 mg qAM & 0.5 mg qhs which she is tolerating well with improvement in sialorrhea. 03/27/21: increase risperidone 0.25 mg qAM & 0.5 mg qHS. 03/26/21: continue risperidone 0.25 mg BID. 03/25/21: Continue Risperdal 0.25 mg BID, son aware of drooling and prefers to wait a few days to adjust rather than shift now to hs as he is pleased with improvement. 03/24/21: Patient expressed a preference for tabs rather than mtab which hadn't started yet. Will admin Risperdal 0.25 mg now and again this hs and monitor. She does not present with significant tremor at baseline, likely more bradykinesia presentation of her Parkinsons but will watch for worsening muscle rigidity. 03/23/21: Case reviewed briefly with Dr. Steen, reviewed labs, QTc, med list. Patient is on Sinemet for Parkinson's, will not hold for now as worsening mainly delirium but certainly can contribute to psychosis, especially georges. Recommend starting Risperdal M tab 0.25 mg this hs with likely titration, son supports this as designated family medical decision maker. If she refuses, if on fibreglass laminator would suggest Haldol 1 mg q4-6 prn IV. Risk Factors Assessment Do You Have Access To A Gun?: No Interval History Identifying Information Mrs. Maxwell is a 76 yo female from [place], admitted on 03/16/21 for pneumonia and UTI. Consult is by [facility] Hospitalist service for paranoia and hallucinations. Chief Complaint "hey this Risperdal is helping but the codifier is still doing high yonis with my phone". Review of Systems Notes baseline pain issues, feels that sialorrhea is better than previously but still occuring, feels her speech isn't as good but no swallow difficulties. denies thick tongue. Subjective Subjective Patient was seen & assessed and interval progress reviewed with liasion, interim care reviewed. Patient is cooperative with care awaiting SNF placement. She is thankful for the Risperdal as "it really helps me", doesn't feel as preoccupied but still worries she'll turn off her phone incorrectly and summon the police. Would like it turned off so she's not monitored but clearly having longer periods of coherent conversation and is no longer responding to interinal stimuli. Physical Exam Psychiatric Orientation: alert, oriented x 3 and cooperative Apperance: appropriately groomed Eye Contact: good eye contact Motor Behavior: no abnormal motor movements Speech: normal rate/rhythm/volume of speech Affect: + constricted affect Mood: + anxious mood Thought Process: + thought process not clear or coherent Thought Content: + paranoid Suicidal Thoughts: denies suicidal thoughts Homicidal Thoughts: denies homicidal thoughts Hallucinations: no auditory hallucinations and no visual hallucinations Cognition: remote memory grossly intact and language grossly intact Estimated Intelligence: consistent with education level Insight: + limited insight and + severely impaired insight Judgement: + limited judgement Vital Signs (Past 24 Hours) Last Vital Signs Temp 36.9 C 03/31/21 07:33 Pulse 63 03/31/21 07:33 Resp 16 03/31/21 07:33 BP 122/73 03/31/21 07:33 Pulse Ox 96 03/31/21 07:33 Results & Data ([facility]) Laboratory Results Laboratory Results - last 24 hr 03/31/21 06:32 Sodium 137 Potassium 3.9 Chloride 105 Carbon Dioxide 27 Anion Gap 5.0 BUN 11 Creatinine 0.60 Est Cr Clr Drug Dosing 78.3 Est GFR ( Amer) 103.3 Est GFR (Non-Af Amer) 89.2 BUN/Creatinine Ratio 19.1 Glucose 84 Calcium 9.4 Magnesium 1.9 Current Inpatient Medications Current Inpatient Medications: Current Inpatient Medications Acetaminophen (Acetaminophen 325 Mg Tab) 650 mg PO Q4H PRN PRN Reason: pain/fever Stop: 04/11/21 16:59 Last Admin: 03/31/21 04:58 Dose: 650 mg Documented by: Albuterol (Albuterol 0.5% Neb Soln 2.5 Mg/0.5 Ml Vial) 2.5 mg NEB Q6R PRN PRN Reason: wheezing, SOB Stop: 04/13/21 18:59 Last Admin: 03/19/21 09:50 Dose: 2.5 mg Documented by: Albuterol (Albut/Ipratrop 3mg/0.5mg Neb 3 Ml Vial) 3 ml NEB Q4R PRN PRN Reason: Shortness Of Breath Or Wheezing Stop: 04/11/21 18:59 Last Admin: 03/28/21 11:17 Dose: 3 ml Documented by: Amlodipine Besylate (Amlodipine Besylate 5 Mg Tab) 5 mg PO QAM MARIBELL Stop: 04/22/21 12:14 Last Admin: 03/31/21 08:23 Dose: 5 mg Documented by: Aspirin (Aspirin 81 Mg Ectab) 81 mg PO DAILY MARIBELL Stop: 04/12/21 08:59 Last Admin: 03/31/21 08:25 Dose: 81 mg Documented by: Carbidopa/Levodopa (Carbidopa/Levodopa 25/100mg Tab) 1 tab PO TID MARIBELL Stop: 04/11/21 20:59 Last Admin: 03/31/21 08:23 Dose: 1 tab Documented by: Diclofenac Sodium (Diclofenac Sod 1% Gel 100 Gm Tube) 2 gm EXT Q6 MARIBELL Stop: 04/13/21 15:29 Last Admin: 03/31/21 11:59 Dose: 2 gm Documented by: Docusate Sodium (Docusate Sodium 100 Mg Cap) 100 mg PO DAILY PRN PRN Reason: Constipation Stop: 04/11/21 16:59 Last Admin: 03/18/21 08:07 Dose: 100 mg Documented by: Ezetimibe (Ezetimibe 10 Mg Tablet) 10 mg PO HS MARIBELL Stop: 04/11/21 20:59 Last Admin: 03/30/21 20:45 Dose: 10 mg Documented by: Enoxaparin Sodium (Enoxaparin Inj 40 Mg/0.4 Ml Syr) 40 mg SQ Q24H MARIBELL Stop: 04/11/21 16:59 Last Admin: 03/30/21 20:47 Dose: 40 mg Documented by: Ferrous Sulfate (Ferrous Sulfate 325 Mg Tab) 325 mg PO DAILY@1100 MARIBELL Stop: 04/12/21 10:59 Last Admin: 03/31/21 11:59 Dose: 325 mg Documented by: Gabapentin (Gabapentin 100 Mg Cap) 200 mg PO TID MARIBELL Stop: 04/22/21 20:59 Last Admin: 03/31/21 08:25 Dose: 200 mg Documented by: Haloperidol Lactate (Haloperidol Lactate 5 Mg/Ml 1 Ml Vial) 1 mg IV Q6 PRN PRN Reason: Anxiety/Agitation Stop: 04/23/21 12:15 Lactase (Lactase 3000 Unit Tab) 3,000 units PO AC MARIBELL Stop: 04/11/21 16:59 Last Admin: 03/31/21 11:59 Dose: 3,000 units Documented by: Lactobacillus Acidoph/Casei/Rhamnos (Advanced Probiotic 1250 Mg Capsule) 2 cap PO DAILY MARIBELL Stop: 04/14/21 14:29 Last Admin: 03/31/21 08:24 Dose: 2 cap Documented by: Lamotrigine (Lamotrigine 25 Mg Tab) 75 mg PO HS MARIBELL Stop: 04/11/21 20:59 Last Admin: 03/30/21 20:45 Dose: 75 mg Documented by: Lidocaine (Lidocaine 5% 1 Patch) 1 patch TD DAILY MARIBELL Stop: 04/12/21 08:59 Last Admin: 03/31/21 08:24 Dose: 1 patch Documented by: Meloxicam (Meloxicam 7.5 Mg Tab) 7.5 mg PO DAILY MARIBELL Stop: 04/12/21 08:59 Last Admin: 03/20/21 08:46 Dose: 7.5 mg Documented by: Miscellaneous (Toviaz-Order Awaiting Action) 1 ea N/A QS MARIBELL Stop: 04/12/21 00:00 Last Admin: 03/31/21 08:22 Dose: Not Given Documented by: Miscellaneous (Remove Lidoderm Patch) 1 ea N/A HS MARIBELL Stop: 04/11/21 20:59 Last Admin: 03/30/21 20:48 Dose: 1 ea Documented by: Pantoprazole Sodium (Pantoprazole 40 Mg Tab) 40 mg PO DAILY MARIBELL Stop: 04/12/21 08:59 Last Admin: 03/31/21 08:24 Dose: 40 mg Documented by: Polyethylene Glycol (Polyethylene (Miralax) 17 Gm Pack) 17 gm PO DAILY PRN PRN Reason: Constipation Stop: 04/11/21 16:59 Last Admin: 03/18/21 08:07 Dose: 17 gm Documented by: Potassium Chloride (Potassium Chloride 10 Meq Tabcr) 10 meq PO BID MARIBELL Stop: 04/11/21 20:59 Last Admin: 03/31/21 08:58 Dose: 10 meq Documented by: Risperidone (Risperidone 0.5 Mg Tablet) 0.25 mg PO QAM MARIBELL Stop: 04/27/21 08:59 Last Admin: 03/31/21 08:23 Dose: 0.25 mg Documented by: Risperidone (Risperidone 0.5 Mg Tablet) 0.5 mg PO HS MARIBELL Stop: 04/26/21 20:59 Last Admin: 03/30/21 20:47 Dose: 0.5 mg Documented by: Tramadol HCl (Tramadol Hcl 50 Mg Tablet) 50 mg PO BID PRN PRN Reason: Pain Stop: 04/11/21 16:59 Last Admin: 03/31/21 09:04 Dose: 50 mg Documented by: Zolpidem Tartrate (Zolpidem Tartrate 5 Mg Tab) 5 mg PO HS PRN PRN Reason: Sleep Stop: 04/21/21 21:50 Last Admin: 03/30/21 20:44 Dose: 5 mg Documented by:
[2021-03-31] MEDS: ALBUTEROL 0.5% NEB SOLN 2.5 MG/0.5 ML VIAL NEB PRN (14:25)
[2021-03-31] MEDS ORDERED: oxyCODONE HCL IR 5 MG TAB (IMMEDIATE RELEASE) PO STA (19:40)
--- NOTE | 2021-03-31 19:57 | Hospitalist Progress Note ---
Date of Service March 31, 2021 Assessment & Plan (1) Pneumonia: (2) Catheter-associated urinary tract infection: Plan: This is a 76-year-old female with PMH Parkinson's, Jvwxlul-Hcfki-Vgizo disease, HTN, HLD, history of TIA, CKD stage III, chronic Romeo catheter with recurrent UTIs, wheelchair-bound, multiple lower extremity surgeries, who presented to the ED for evaluation of shortness of breath and wheezing. Being managed for the following: Delirium, Paranoia, hallucinations -Pt w/ hx of paranoid ideations related to cognitive decline now with superimposed delirium -Patient became more confused and was yelling and calling 911 on her cell phone and her family -Psychiatry consulted, patient initially started on Risperdal 0.25 mg twice daily then increased Risperdal to 0.25 mg every morning and 0.5 mg nightly on 03/27 Chest pain -Developed chest pain on 03/27 and was transferred to [facility] with telemetry -Troponin negative x2, EKG nonischemic -Reproducible on exam, likely musculoskeletal in nature Acute on chronic diastolic CHF - mild -Due to reports of shortness of breath today, chest x-ray was obtained showing mild pulmonary congestion -Lasix 20 mg IV x1 -Saturating well on room air -Echo 03/21/2021 -EF 55-60%, grade 2 diastolic dysfunction 03/14 CXR: Mild pulmonary edema. Possible small left pleural effusion 03/14 IV dose of Lasix RUQ abdominal pain -Patient having some nausea and right upper quadrant abdominal pain on 03/27 -Resolved -RUQ US unremarkable, LFTs WNL Stroke Alert Patient was a stroke alert overnight (03/20-03/21) Likely TIA - involving the right hemisphere with left facial droop yet on imaging has no evidence for a completed event Head and neck CTA, brain MRI unremarkable for acute findings Neurology consulted, input appreciated Do not have sufficient evidence to recommend adding Plavix to her aspirin but will observe her for recurrent events and if they do enlarge then certainly w ould add another antiplatelet agent Recommend to continue aspirin 81 mg daily, and 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 Fields Pneumonia Has bibasilar infiltration more on the right could be secondary to aspiration versus HCAP Initial lactic acid 3.2---> 1.9, no other signs of sepsis. MRSA screen negative Zosyn 03/12 --> change to Augmentin 03/14 -->Levaquin 03/15 d/t E.cloacae and E. coli in UCx --> stop date 03/19 Blood cultures negative Has had speech evaluation Recommended aspiration precaution during feeding - If the condition persist will need to have a formal barium swallow CAUTI: Chronic indwelling Romeo catheter History of recurrent UTIs. Patient overdue for follow-up with urology---> Alexandrea BETANCOURT to arrange for outpatient follow-up for management of her chronic Romeo UA was suggestive of infection, 03/12 urine culture Enterobacter cloacae and E. coli Antibiotics as above CMT (Bzsxuxm-Omnnr-Hzkwr disease): S/p multiple lower extremity procedures, most recently s/p left knee closed reduction total knee arthroplasty subluxation on 02/16/2021 - patient is to remain nonweightbearing of the left lower extremity and limited weightbearing on the right lower extremity Abnormal Left ankle XR Patient complaining of multiple joint pain, more on the left leg 03/15 x-ray left ankle: A 1.8 cm linear ossific density posterior to the talus may represent an avulsion fracture from the dorsal calcaneus. Clinical correlation will be essential. Orthopedic consulted for left calcaneal superior posterior avulsion fracture status post fall: High tide walking boot removed, replaced with a dorsiflexion splint with a negative relief under the left heel and lambs wool padding to provide essentially neutral support for neutral dorsiflexion of the left ankle and heel and foot. Orthopedic recommending may use the walking boot for transfers or ambulating and wheelchair as necessary. Follow-up with [place]. [place] [facility] [place] disease: Continue carbidopa-levodopa Chronic pain: Continue home regimen DVT prophylaxis: SQ Lovenox Disposition: Unable to be placed at [facility] due to need for uziel lift. Per discussion with Marianne Walls of Case management, referrals placed at other [facility] and waiting to hear back. Also working on paperwork for eventual in home services . Stable to be discharged. Admission and Anticipated Discharge Date Admission Date: March 12, 2021 Subjective Patient seen and examined at bedside. Not in acute distress, on room air. Does still have diffuse body pain that has been ongoing. Endorses chest pain but "knows it is muscular". Denying visual hallucinations/headache at this time. No longer feeling nauseated. No SOB, abdominal pain. No dysuria. Having bowel movements. Physical Exam Physical Exam: GENERAL: Alert and oriented x3. NAD, on RA. HEENT: No pallor, no icterus. Pupils equal, round and reactive to light. Oral mucosa moist. NECK: No JVD, no neck masses. HEART: S1 and S2 heard. Regular rate and rhythm. No murmur, no gallop. RESPIRATORY SYSTEM: Normal AP diameter. No accessory muscle use. No wheezing, b/l crackles improving. ABDOMEN: Soft, bowel sounds present, nontender, no distention. CENTRAL NERVOUS SYSTEM: No facial droop. Speech is clear. Obeys simple commands. Moves extremities. EXTREMITIES: 2+ pedal edema, no erythema seen. Orthopedic boots present on both lower extremity. Results & Data Results & Data ([facility]) Vital Signs (Past 12 Hours) Vital Signs Temp Pulse Resp BP Pulse Ox 03/31/21 19:33 36.9 C 83 12 148/77 H 94 03/31/21 19:03 84 133/72 94 03/31/21 16:54 36.8 C 80 18 143/77 H 98 03/31/21 14:25 73 18 96
[2021-03-31] MEDS: lamoTRIgine 25 MG TAB PO SCH (20:14)
[2021-03-31] MEDS: EZETIMIBE 10 MG TABLET PO SCH (20:14)
[2021-03-31] MEDS ORDERED: KETOROLAC TROMETHAMINE 15 MG/ML VIAL IV ONE (21:22)
[2021-03-31] MEDS: ZOLPIDEM TARTRATE 5 MG TAB PO PRN (21:32)
[2021-04-01] MEDS: DICLOFENAC SOD 1% GEL 100 GM TUBE EXT SCH ×4 (05:33→23:04)
[2021-04-01] MEDS: ACETAMINOPHEN 325 MG TAB PO PRN (06:03)
[2021-04-01] MEDS: LACTASE 3000 UNIT TAB PO SCH ×3 (08:48→17:15)
[2021-04-01] MEDS: CARBIDOPA/LEVODOPA 25/100MG TAB PO SCH ×3 (08:48→20:31)
[2021-04-01] MEDS: risperiDONE 0.5 MG TABLET PO SCH ×2 (08:49→20:30)
[2021-04-01] MEDS: ASPIRIN 81 MG ECTAB PO SCH (08:49)
[2021-04-01] MEDS: PANTOprazole 40 MG TAB PO SCH (08:50)
[2021-04-01] MEDS: amLODIPine BESYLATE 5 MG TAB PO SCH (08:50)
[2021-04-01] MEDS: GABAPENTIN 100 MG CAP PO SCH ×3 (08:51→20:30)
[2021-04-01] MEDS: ADVANCED PROBIOTIC 1250 MG CAPSULE PO SCH (08:52)
[2021-04-01] MEDS: LIDOCAINE 5% 1 PATCH TD SCH (09:11)
[2021-04-01] MEDS: POTASSIUM CHLORIDE 10 MEQ TABCR PO SCH ×2 (09:11→21:37)
--- NOTE | 2021-04-01 09:54 | CT Scan Report ---
HEAD CT NONCONTRAST CT DOSE: 998.18 mGy.cm HISTORY: Headache. TECHNIQUE: Multiaxial CT images of the head were performed without the use of intravenous contrast. A utomated exposure control was utilized for this study. A dose lowering technique was utilized adheri ng to the principles of ALARA. Comparison: Brain MRI 03/21/2021. Findings: The paranasal sinuses and mastoid air cells are clear. The calvarium and skull base are int act. The ventricles and sulci are within normal limits. There is no mass, hematoma, midline shift, or acute infarct. Bilateral temporomandibular joint arthroplasties are noted. Evidence for bilateral le ns replacement. Impression: No acute intracranial abnormality. ACT 112: Negative or not required by law. Electronically signed by: Alfonzo Sparrow M.D. 04/01/2021 9:53 AM
[2021-04-01] MEDS: FERROUS SULFATE 325 MG TAB PO SCH (13:00)
--- NOTE | 2021-04-01 13:19 | Communication Note ---
Date of Service: April 01, 2021 Interim care reviewed. No drooling noted after am dose of Risperdal per liaison. Speech baseline. Patient reporting some word finding difficulties. Continues to own in that more paranoid yesterday afternoon and talked with son about seeing someone standing in the room earlier when I examined her. There was a nurse present for first minute attending to care but patient did not believe she was a nurse. Will continue to follow.
[2021-04-01] MEDS: traMADol HCL 50 MG TABLET PO PRN (18:44)
--- NOTE | 2021-04-01 18:49 | Hospitalist Progress Note ---
Date of Service April 01, 2021 Assessment & Plan (1) Pneumonia: (2) Catheter-associated urinary tract infection: Plan: This is a 76-year-old female with PMH Parkinson's, Tyttjll-Znsbb-Yzgif disease, HTN, HLD, history of TIA, CKD stage III, chronic Romeo catheter with recurrent UTIs, wheelchair-bound, multiple lower extremity surgeries, who presented to the ED for evaluation of shortness of breath and wheezing. Being managed for the following: Delirium, Paranoia, hallucinations -Pt w/ hx of paranoid ideations related to cognitive decline now with superimposed delirium -Patient became more confused and was yelling and calling 911 on her cell phone and her family -Psychiatry consulted, patient initially started on Risperdal 0.25 mg twice daily then increased Risperdal to 0.25 mg every morning and 0.5 mg nightly on 03/27 Chest pain -Developed chest pain on 03/27 and was transferred to [facility] with telemetry -Troponin negative x2, EKG nonischemic -Reproducible on exam, likely musculoskeletal in nature Acute on chronic diastolic CHF - mild -Due to reports of shortness of breath today, chest x-ray was obtained showing mild pulmonary congestion -Lasix 20 mg IV x1 -Saturating well on room air -Echo 03/21/2021 -EF 55-60%, grade 2 diastolic dysfunction 03/14 CXR: Mild pulmonary edema. Possible small left pleural effusion 03/14 IV dose of Lasix RUQ abdominal pain -Patient having some nausea and right upper quadrant abdominal pain on 03/27 -Resolved -RUQ US unremarkable, LFTs WNL Stroke Alert Patient was a stroke alert overnight (03/20-03/21) Likely TIA - involving the right hemisphere with left facial droop yet on imaging has no evidence for a completed event Head and neck CTA, brain MRI unremarkable for acute findings Neurology consulted, input appreciated Do not have sufficient evidence to recommend adding Plavix to her aspirin but will observe her for recurrent events and if they do enlarge then certainly w ould add another antiplatelet agent Recommend to continue aspirin 81 mg daily, and 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 Fields Pneumonia Has bibasilar infiltration more on the right could be secondary to aspiration versus HCAP Initial lactic acid 3.2---> 1.9, no other signs of sepsis. MRSA screen negative Zosyn 03/12 --> change to Augmentin 03/14 -->Levaquin 03/15 d/t E.cloacae and E. coli in UCx --> stop date 03/19 Blood cultures negative Has had speech evaluation Recommended aspiration precaution during feeding - If the condition persist will need to have a formal barium swallow CAUTI: Chronic indwelling Romeo catheter History of recurrent UTIs. Patient overdue for follow-up with urology---> Alexandrea BETANCOURT to arrange for outpatient follow-up for management of her chronic Romeo UA was suggestive of infection, 03/12 urine culture Enterobacter cloacae and E. coli Antibiotics as above CMT (Yvwpixs-Xghih-Coslr disease): S/p multiple lower extremity procedures, most recently s/p left knee closed reduction total knee arthroplasty subluxation on 02/16/2021 - patient is to remain nonweightbearing of the left lower extremity and limited weightbearing on the right lower extremity Abnormal Left ankle XR Patient complaining of multiple joint pain, more on the left leg 03/15 x-ray left ankle: A 1.8 cm linear ossific density posterior to the talus may represent an avulsion fracture from the dorsal calcaneus. Clinical correlation will be essential. Orthopedic consulted for left calcaneal superior posterior avulsion fracture status post fall: High tide walking boot removed, replaced with a dorsiflexion splint with a negative relief under the left heel and lambs wool padding to provide essentially neutral support for neutral dorsiflexion of the left ankle and heel and foot. Orthopedic recommending may use the walking boot for transfers or ambulating and wheelchair as necessary. Follow-up with [place]. [place] [facility] [place] Parkinson disease: Continue carbidopa-levodopa Chronic pain: Continue home regimen DVT prophylaxis: SQ Lovenox Disposition: Unable to be placed at [facility] due to need for uziel lift. Per discussion with Marianne Walls of Case management, referrals placed at other [facility] and waiting to hear back. Also working on paperwork for eventual in home services . Stable to be discharged. Admission and Anticipated Discharge Date Admission Date: March 12, 2021 Subjective Patient seen and examined at bedside. Not in acute distress, on room air. Does still have diffuse body pain that has been ongoing. Endorses chest pain but "knows it is muscular". Denying visual hallucinations at this time. reports headache, will use tylenol. No longer feeling nauseated. No SOB, abdominal pain. No dysuria. Having bowel movements. Physical Exam Physical Exam: GENERAL: Alert and oriented x3. NAD, on RA. HEENT: No pallor, no icterus. Pupils equal, round and reactive to light. Oral mucosa moist. NECK: No JVD, no neck masses. HEART: S1 and S2 heard. Regular rate and rhythm. No murmur, no gallop. RESPIRATORY SYSTEM: Normal AP diameter. No accessory muscle use. No wheezing, b/l crackles improving. ABDOMEN: Soft, bowel sounds present, nontender, no distention. CENTRAL NERVOUS SYSTEM: No facial droop. Speech is clear. Obeys simple commands. Moves extremities. EXTREMITIES: 2+ pedal edema, no erythema seen. Orthopedic boots present on both lower extremity. Results & Data Results & Data ([facility]) Vital Signs (Past 12 Hours) Vital Signs Temp Pulse Resp BP Pulse Ox 04/01/21 16:21 36.6 C 70 18 135/80 97 04/01/21 08:05 36.7 C 64 16 125/75 100
[2021-04-01] MEDS: ZOLPIDEM TARTRATE 5 MG TAB PO PRN (20:29)
[2021-04-01] MEDS: lamoTRIgine 25 MG TAB PO SCH (20:30)
[2021-04-01] MEDS: ENOXAPARIN INJ 40 MG/0.4 ML SYR SQ SCH (20:31)
[2021-04-01] MEDS: EZETIMIBE 10 MG TABLET PO SCH (20:32)
[2021-04-01] MEDS: ALBUTEROL 0.5% NEB SOLN 2.5 MG/0.5 ML VIAL NEB PRN (21:09)
[2021-04-02] MEDS: DICLOFENAC SOD 1% GEL 100 GM TUBE EXT SCH ×4 (05:33→23:59)
[2021-04-02] MEDS: LACTASE 3000 UNIT TAB PO SCH ×3 (08:38→17:35)
[2021-04-02] MEDS: amLODIPine BESYLATE 5 MG TAB PO SCH (08:39)
[2021-04-02] MEDS: CARBIDOPA/LEVODOPA 25/100MG TAB PO SCH ×3 (08:40→21:14)
[2021-04-02] MEDS: ASPIRIN 81 MG ECTAB PO SCH (08:40)
[2021-04-02] MEDS: GABAPENTIN 100 MG CAP PO SCH ×3 (08:41→21:13)
[2021-04-02] MEDS: PANTOprazole 40 MG TAB PO SCH (08:42)
[2021-04-02] MEDS: ADVANCED PROBIOTIC 1250 MG CAPSULE PO SCH (08:42)
[2021-04-02] MEDS: risperiDONE 0.5 MG TABLET PO SCH ×2 (08:43→21:14)
[2021-04-02] MEDS: LIDOCAINE 5% 1 PATCH TD SCH (08:46)
[2021-04-02] MEDS: POTASSIUM CHLORIDE 10 MEQ TABCR PO SCH ×2 (10:38→21:14)
[2021-04-02] MEDS: FERROUS SULFATE 325 MG TAB PO SCH (10:39)
[2021-04-02] MEDS: traMADol HCL 50 MG TABLET PO PRN (10:59)
--- NOTE | 2021-04-02 12:37 | Hospitalist Progress Note ---
Date of Service April 02, 2021 Assessment & Plan (1) Pneumonia: (2) Catheter-associated urinary tract infection: Plan: This is a 76-year-old female with PMH Parkinson's, Goknmja-Eirry-Hsath disease, HTN, HLD, history of TIA, CKD stage III, chronic Romeo catheter with recurrent UTIs, wheelchair-bound, multiple lower extremity surgeries, who presented to the ED for evaluation of shortness of breath and wheezing. Being managed for the following: Delirium, Paranoia, hallucinations -Pt w/ hx of paranoid ideations related to cognitive decline now with superimposed delirium -Patient became more confused and was yelling and calling 911 on her cell phone and her family -Psychiatry consulted, patient initially started on Risperdal 0.25 mg twice daily then increased Risperdal to 0.25 mg every morning and 0.5 mg nightly on 03/27 -this has been stable Chest pain -Developed chest pain on 03/27 and was transferred to [facility] with telemetry -Troponin negative x2, EKG nonischemic -Reproducible on exam, likely musculoskeletal in nature -no further recurrence Acute on chronic diastolic CHF - mild -Due to reports of shortness of breath today, chest x-ray was obtained showing mild pulmonary congestion -Lasix 20 mg IV x1 -Saturating well on room air -Echo 03/21/2021 -EF 55-60%, grade 2 diastolic dysfunction 03/14 CXR: Mild pulmonary edema. Possible small left pleural effusion 03/14 IV dose of Lasix currently euvolemic RUQ abdominal pain -Patient having some nausea and right upper quadrant abdominal pain on 03/27 -Resolved -RUQ US unremarkable, LFTs WNL Stroke Alert Patient was a stroke alert overnight (03/20-03/21) Likely TIA - involving the right hemisphere with left facial droop yet on imaging has no evidence for a completed event Head and neck CTA, brain MRI unremarkable for acute findings Neurology consulted, input appreciated Do not have sufficient evidence to recommend adding Plavix to her aspirin but will observe her for recurrent events and if they do enlarge then certainly would add another antiplatelet agent Recommend to continue aspirin 81 mg daily, and 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 Fields Pneumonia Has bibasilar infiltration more on the right could be secondary to aspiration versus HCAP Initial lactic acid 3.2---> 1.9, no other signs of sepsis. MRSA screen negative Zosyn 03/12 --> change to Augmentin 03/14 -->Levaquin 03/15 d/t E.cloacae and E. coli in UCx --> stop date 03/19 Blood cultures negative Has had speech evaluation Recommended aspiration precaution during feeding - If the condition persist will need to have a formal barium swallow CAUTI: Chronic indwelling Romeo catheter History of recurrent UTIs. Patient overdue for follow-up with urology---> Alexandrea BETANCOURT to arrange for outpatient follow-up for management of her chronic Romeo UA was suggestive of infection, 03/12 urine culture Enterobacter cloacae and E. coli Off antibiotics CMT (Dzlmowo-Burtn-Vxzqj disease): S/p multiple lower extremity procedures, most recently s/p left knee closed reduction total knee arthroplasty subluxation on 02/16/2021 - patient is to remain nonweightbearing of the left lower extremity and limited weightbearing on the right lower extremity Abnormal Left ankle XR Patient complaining of multiple joint pain, more on the left leg 03/15 x-ray left ankle: A 1.8 cm linear ossific density posterior to the talus may represent an avulsion fracture from the dorsal calcaneus. Clinical correlation will be essential. Orthopedic consulted for left calcaneal superior posterior avulsion fracture status post fall: High tide walking boot removed, replaced with a dorsiflexion splint with a negative relief under the left heel and lambs wool padding to provide essentially neutral support for neutral dorsiflexion of the left ankle and heel and foot. Orthopedic recommending may use the walking boot for transfers or ambulating and wheelchair as necessary. Follow-up with outpatient orthopedics. Dr. Crain, [facility] [place]. Parkinson disease: Continue carbidopa-levodopa Chronic pain: Continue home regimen DVT prophylaxis: SQ Lovenox Disposition: Unable to be placed at [facility] due to need for uziel lift. Per discussion with Marianne Walls of Case management, referrals placed at other [facility] and waiting to hear back. Also working on paperwork for eventual in home services . Stable to be discharged. Admission and Anticipated Discharge Date Admission Date: March 12, 2021 Supervising Physician Co-Signing Physician Notes Patient seen and examined at the bedside. Communicated with Esther COLIN. Patient initially here for pneumonia and UTI, status post antibiotic treatment. Was doing well but was a stroke alert on overnight of , likely TIA involving right hemisphere with left facial droop but no evidence of a completed event on imaging [CTA head and neck and MRI]. Neurology evaluated, no change in her anticoagulation/antiplatelet. Will need follow-up as an outpatient with neurology. Patient awaiting transfer to SNF. On examination, patient on room air, NAD, no crackles/wheezes on auscultation, heart and lungs examination WNL. AOx3. LLE in orthopedic boot, contracture of left hand. Chest pain reproducible. I have seen and examined the patient and have discussed the case with the provider above. I agree with the assessment and plan as stated. Subjective Patient was seen and examined in 359-1. Follow-up delirium, pneumonia and UTI. Pt endorses ear ringing and dizziness with head movement. She denies f/c/s, chest pain, sob, cough, n/v/d. She also complains of HALL. Hx of migraines but states doesn't feel similar. Denies photophobia and phonophobia. Review of Systems Review of Systems: All systems reviewed & are unremarkable except as noted in HPI & below Physical Exam Physical Exam: Gen: WD/WN, F, chronically ill appearing, NAD, A&O x3 basics HEENT: Normocephalic, atraumatic, conjunctivae moist, sclerae anicteric, mucous membranes moist. Lung: Clear to Auscultation bilaterally, no wheezes/rales/rhonchi Heart: Regular rate, regular rhythm, no murmurs, rubs, or gallops Abdomen: Soft, NT, ND +BS x 4 Extremities: b/l cam boots to RLE, leslie bandage to LLE foot Skin: Warm, no rash, negative turgor. : +Romeo cath Results & Data Results & Data ([facility]) Vital Signs (Past 12 Hours) Vital Signs Temp Pulse Resp BP Pulse Ox 04/02/21 10:44 36.6 C 75 18 136/78 97
--- NOTE | 2021-04-02 16:34 | Psychiatric Progress Note ---
Date of Service April 02, 2021 Impression / Recommendations Impression 76 yo female with history of paranoid ideations related to cognitive decline now with superimposed delirium resulting in worsening hallucinations and delusions. Started Risperdal 03/24/21. 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 03/31/21: increase Risperdal to 0.5 mg po BID. Consider splitting am dose if evidence of worsening EPS. 03/30/21: continue with risperidone. 03/29/21: risperidone 0.25 mg qAM & 0.5 mg qHS 03/28/21: continue with risperidone 0.25 mg qAM & 0.5 mg qhs which she is tolerating well with improvement in sialorrhea. 03/27/21: increase risperidone 0.25 mg qAM & 0.5 mg qHS. 03/26/21: continue risperidone 0.25 mg BID. 03/25/21: Continue Risperdal 0.25 mg BID, son aware of drooling and prefers to wait a few days to adjust rather than shift now to hs as he is pleased with improvement. 03/24/21: Patient expressed a preference for tabs rather than mtab which hadn't started yet. Will admin Risperdal 0.25 mg now and again this hs and monitor. She does not present with significant tremor at baseline, likely more bradykinesia presentation of her Parkinsons but will watch for worsening muscle rigidity. 03/23/21: Case reviewed briefly with Dr. Steen, reviewed labs, QTc, med list. Patient is on Sinemet for Parkinson's, will not hold for now as worsening mainly delirium but certainly can contribute to psychosis, especially georges. Recommend starting Risperdal M tab 0.25 mg this hs with likely titration, son supports this as designated family medical decision maker. If she refuses, if on field map editor would suggest Haldol 1 mg q4-6 prn IV. Risk Factors Assessment Do You Have Access To A Gun?: No Interval History Identifying Information Mrs. Maxwell is a 76 yo female from [place], admitted on 03/16/21 for pneumonia and UTI. Consult is by [facility] service for paranoia and hallucinations. Chief Complaint "Avery Barron, yes I have some pain sometimes but I think that other med is helping". referring to the Risperdal. Review of Systems Notes c/o knee pain, sleep issues--would prefer her ambien standing order rather than prn Subjective Subjective Patient was seen & assessed and interval progress reviewed with liaison, interim chart reviewed. Patient calm in bed, seems to confuse texts with twitter and think people are monitoring her messages but using phone without upset and better able to be redirected from it. Denies hallucinations and has been c ooperative with care. No drooling but reports some neck pain "ever since I fell and broke my ankle", denies EPS. States she can't see the tv clearly but not wearing glasses and I couldn't read it either from bedside. Physical Exam Psychiatric Orientation: alert and oriented x 3 Apperance: appropriately dressed and appropriately groomed Eye Contact: good eye contact Motor Behavior: no abnormal motor movements; n EPS Speech: normal rate/rhythm/volume of speech Affect: + constricted affect Mood: + anxious mood Thought Process: + circumstantial thought process Thought Content: + paranoid Suicidal Thoughts: denies suicidal thoughts Homicidal Thoughts: denies homicidal thoughts Hallucinations: no auditory hallucinations and no visual hallucinations Cognition: attention grossly intact and language grossly intact Estimated Intelligence: consistent with education level Insight: + limited insight Judgement: + limited judgement Vital Signs (Past 24 Hours) Last Vital Signs Temp 36.9 C 04/02/21 15:52 Pulse 87 04/02/21 15:52 Resp 18 04/02/21 15:52 BP 150/80 H 04/02/21 15:52 Pulse Ox 94 04/02/21 15:52 Results & Data ([facility]) Laboratory Results Laboratory Results - last 24 hr 04/02/21 09:03 POC Glucose 82 Current Inpatient Medications Current Inpatient Medications: Current Inpatient Medications Acetaminophen (Acetaminophen 325 Mg Tab) 650 mg PO Q4H PRN PRN Reason: pain/fever Stop: 04/11/21 16:59 Last Admin: 04/01/21 06:03 Dose: 650 mg Documented by: Albuterol (Albuterol 0.5% Neb Soln 2.5 Mg/0.5 Ml Vial) 2.5 mg NEB Q6R PRN PRN Reason: wheezing, SOB Stop: 04/13/21 18:59 Last Admin: 04/01/21 21:09 Dose: 2.5 mg Documented by: Albuterol (Albut/Ipratrop 3mg/0.5mg Neb 3 Ml Vial) 3 ml NEB Q4R PRN PRN Reason: Shortness Of Breath Or Wheezing Stop: 04/11/21 18:59 Last Admin: 03/28/21 11:17 Dose: 3 ml Documented by: Amlodipine Besylate (Amlodipine Besylate 5 Mg Tab) 5 mg PO QAM [facility] Stop: 04/22/21 12:14 Last Admin: 04/02/21 08:39 Dose: 5 mg Documented by: Aspirin (Aspirin 81 Mg Ectab) 81 mg PO DAILY [facility] Stop: 04/12/21 08:59 Last Admin: 04/02/21 08:40 Dose: 81 mg Documented by: Carbidopa/Levodopa (Carbidopa/Levodopa 25/100mg Tab) 1 tab PO TID [facility] Stop: 04/11/21 20:59 Last Admin: 04/02/21 15:08 Dose: 1 tab Documented by: Diclofenac Sodium (Diclofenac Sod 1% Gel 100 Gm Tube) 2 gm EXT Q6 MARIBELL Stop: 04/13/21 15:29 Last Admin: 04/02/21 10:50 Dose: 2 gm Documented by: Docusate Sodium (Docusate Sodium 100 Mg Cap) 100 mg PO DAILY PRN PRN Reason: Constipation Stop: 04/11/21 16:59 Last Admin: 03/18/21 08:07 Dose: 100 mg Documented by: Ezetimibe (Ezetimibe 10 Mg Tablet) 10 mg PO HS [facility] Stop: 04/11/21 20:59 Last Admin: 04/01/21 20:32 Dose: 10 mg Documented by: Enoxaparin Sodium (Enoxaparin Inj 40 Mg/0.4 Ml Syr) 40 mg SQ Q24H [facility]ELL Stop: 04/11/21 16:59 Last Admin: 04/01/21 20:31 Dose: 40 mg Documented by: Ferrous Sulfate (Ferrous Sulfate 325 Mg Tab) 325 mg PO DAILY@1100 [facility] Stop: 04/12/21 10:59 Last Admin: 04/02/21 10:39 Dose: 325 mg Documented by: Gabapentin (Gabapentin 100 Mg Cap) 200 mg PO TID [facility] Stop: 04/22/21 20:59 Last Admin: 04/02/21 15:09 Dose: 200 mg Documented by: Haloperidol Lactate (Haloperidol Lactate 5 Mg/Ml 1 Ml Vial) 1 mg IV Q6 PRN PRN Reason: Anxiety/Agitation Stop: 04/23/21 12:15 Lactase (Lactase 3000 Unit Tab) 3,000 units PO AC [facility] Stop: 04/11/21 16:59 Last Admin: 04/02/21 13:11 Dose: 3,000 units Documented by: Lactobacillus Acidoph/Casei/Rhamnos (Advanced Probiotic 1250 Mg Capsule) 2 cap PO DAILY [facility] Stop: 04/14/21 14:29 Last Admin: 04/02/21 08:42 Dose: 2 cap Documented by: Lamotrigine (Lamotrigine 25 Mg Tab) 75 mg PO HS [facility] Stop: 04/11/21 20:59 Last Admin: 04/01/21 20:30 Dose: 75 mg Documented by: Lidocaine (Lidocaine 5% 1 Patch) 1 patch TD DAILY [facility] Stop: 04/12/21 08:59 Last Admin: 04/02/21 08:46 Dose: 1 patch Documented by: Meloxicam (Meloxicam 7.5 Mg Tab) 7.5 mg PO DAILY [facility] Stop: 04/12/21 08:59 Last Admin: 03/20/21 08:46 Dose: 7.5 mg Documented by: Miscellaneous (Toviaz-Order Awaiting Action) 1 ea N/A QS [facility] Stop: 04/12/21 00:00 Last Admin: 04/02/21 16:00 Dose: Not Given Documented by: Miscellaneous (Remove Lidoderm Patch) 1 ea N/A HS [facility] Stop: 04/11/21 20:59 Last Admin: 04/01/21 20:32 Dose: 1 ea Documented by: Pantoprazole Sodium (Pantoprazole 40 Mg Tab) 40 mg PO DAILY MAR[facility] Stop: 04/12/21 08:59 Last Admin: 04/02/21 08:42 Dose: 40 mg Documented by: Polyethylene Glycol (Polyethylene (Miralax) 17 Gm Pack) 17 gm PO DAILY PRN PRN Reason: Constipation Stop: 04/11/21 16:59 Last Admin: 03/18/21 08:07 Dose: 17 gm Documented by: Potassium Chloride (Potassium Chloride 10 Meq Tabcr) 10 meq PO BID [facility] Stop: 04/11/21 20:59 Last Admin: 04/02/21 10:38 Dose: 10 meq Documented by: Risperidone (Risperidone 0.5 Mg Tablet) 0.5 mg PO BID [facility] Stop: 04/30/21 20:59 Last Admin: 04/02/21 08:43 Dose: 0.5 mg Documented by: Tramadol HCl (Tramadol Hcl 50 Mg Tablet) 50 mg PO BID PRN PRN Reason: Pain Stop: 04/11/21 16:59 Last Admin: 04/02/21 10:59 Dose: 50 mg Documented by: Zolpidem Tartrate (Zolpidem Tartrate 5 Mg Tab) 5 mg PO HS PRN PRN Reason: Sleep Stop: 04/21/21 21:50 Last Admin: 04/01/21 20:29 Dose: 5 mg Documented by:
[2021-04-02] MEDS: ACETAMINOPHEN 325 MG TAB PO PRN (17:41)
[2021-04-02] MEDS: EZETIMIBE 10 MG TABLET PO SCH (21:13)
[2021-04-02] MEDS: ENOXAPARIN INJ 40 MG/0.4 ML SYR SQ SCH (21:13)
[2021-04-02] MEDS: ZOLPIDEM TARTRATE 5 MG TAB PO SCH (21:14)
[2021-04-02] MEDS: lamoTRIgine 25 MG TAB PO SCH (21:14)
[2021-04-03] MEDS: traMADol HCL 50 MG TABLET PO PRN ×2 (04:55→12:10)
[2021-04-03] MEDS: DICLOFENAC SOD 1% GEL 100 GM TUBE EXT SCH ×4 (04:55→21:05)
[2021-04-03 06:05] LABS: Influenza A virus by PCR Negative (Neg); Influenza B virus by PCR Negative (Neg); RSV by PCR Negative (Neg); SARS CoV2 RNA(COVID-19) InHosp NEGATIVE (Negative)
[2021-04-03] MEDS: LIDOCAINE 5% 1 PATCH TD SCH (09:00)
[2021-04-03] MEDS: risperiDONE 0.5 MG TABLET PO SCH ×2 (09:00→21:03)
[2021-04-03] MEDS: PANTOprazole 40 MG TAB PO SCH (09:00)
[2021-04-03] MEDS: GABAPENTIN 100 MG CAP PO SCH ×3 (09:00→21:04)
[2021-04-03] MEDS: ADVANCED PROBIOTIC 1250 MG CAPSULE PO SCH (09:00)
[2021-04-03] MEDS: ASPIRIN 81 MG ECTAB PO SCH (09:01)
[2021-04-03] MEDS: amLODIPine BESYLATE 5 MG TAB PO SCH (09:01)
[2021-04-03] MEDS: CARBIDOPA/LEVODOPA 25/100MG TAB PO SCH ×3 (09:01→21:03)
[2021-04-03] MEDS: LACTASE 3000 UNIT TAB PO SCH ×3 (09:02→18:04)
[2021-04-03] MEDS: POTASSIUM CHLORIDE 10 MEQ TABCR PO SCH ×2 (09:03→21:03)
[2021-04-03] MEDS: FERROUS SULFATE 325 MG TAB PO SCH (11:58)
--- NOTE | 2021-04-03 13:29 | Hospitalist Progress Note ---
Date of Service April 03, 2021 Assessment & Plan (1) Pneumonia: (2) Catheter-associated urinary tract infection: Plan: This is a 76-year-old female with PMH Parkinson's, Bnmrkjv-Kuhqt-Xlwnu disease, HTN, HLD, history of TIA, CKD stage III, chronic Romeo catheter with recurrent UTIs, wheelchair-bound, multiple lower extremity surgeries, who presented to the ED for evaluation of shortness of breath and wheezing. Being managed for the following: Delirium, Paranoia, hallucinations -Pt w/ hx of paranoid ideations related to cognitive decline now with superimposed delirium -Patient became more confused and was yelling and calling 911 on her cell phone and her family -Psychiatry consulted, stable on risperdal 0.5mg bid, ambien started -appreciate psych recs -this has been stable Chest pain - resolved -Developed chest pain on 03/27 and was transferred to [facility] with telemetry -Troponin negative x2, EKG nonischemic -Reproducible on exam, likely musculoskeletal in nature -no further recurrence Chronic Diastolic CHF pt with episode of decompensated CHF while hospitalized, now resolved -Due to reports of shortness of breath today, chest x-ray was obtained showing mild pulmonary congestion -Echo 03/21/2021 -EF 55-60%, grade 2 diastolic dysfunction 03/14 CXR: Mild pulmonary edema. Possible small left pleural effusion 03/14 IV dose of Lasix currently euvolemic monitor daily weights RUQ abdominal pain -Patient having some nausea and right upper quadrant abdominal pain on 03/27 -Resolved -RUQ US unremarkable, LFTs WNL Stroke Alert Patient was a stroke alert overnight (03/20-03/21) Likely TIA - involving the right hemisphere with left facial droop yet on imaging has no evidence for a completed event Head and neck CTA, brain MRI unremarkable for acute findings Neurology consulted, input appreciated Do not have sufficient evidence to recommend adding Plavix to her aspirin but will observe her for recurrent events and if they do enlarge then certainly would add another antiplatelet agent Recommend to continue aspirin 81 mg daily, and 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 Fields Pneumonia Has bibasilar infiltration more on the right could be secondary to aspiration versus HCAP Initial lactic acid 3.2---> 1.9, no other signs of sepsis. MRSA screen negative Zosyn 11/15 --> change to Augmentin 03/14 -->Levaquin 03/15 d/t E.cloacae and E. coli in UCx --> stop date 03/19 Blood cultures negative Has had speech evaluation Recommended aspiration precaution during feeding - If the condition persist will need to have a formal barium swallow CAUTI: Chronic indwelling Romeo catheter History of recurrent UTIs. Patient overdue for follow-up with urology---> Alexandrea BETANCOURT to arrange for outpatient follow-up for management of her chronic Romeo UA was suggestive of infection, 03/12 urine culture Enterobacter cloacae and E. coli Off antibiotics CMT (Skxzmnz-Ticvm-Jtrif disease): S/p multiple lower extremity procedures, most recently s/p left knee closed reduction total knee arthroplasty subluxation on 02/16/2021 - patient is to remain nonweightbearing of the left lower extremity and limited weightbearing on the right lower extremity Abnormal Left ankle XR Patient complaining of multiple joint pain, more on the left leg 03/15 x-ray left ankle: A 1.8 cm linear ossific density posterior to the talus may represent an avulsion fracture from the dorsal calcaneus. Clinical correlation will be essential. Orthopedic consulted for left calcaneal superior posterior avulsion fracture status post fall: High tide walking boot removed, replaced with a dorsiflexion splint with a negative relief under the left heel and lambs wool padding to provide essentially neutral support for neutral dorsiflexion of the left ankle a nd heel and foot. Orthopedic recommending may use the walking boot for transfers or ambulating and wheelchair as necessary. Follow-up with outpatient orthopedics. Dr[place] [facility] Parkinson disease: Continue carbidopa-levodopa Chronic pain: Continue home regimen DVT prophylaxis: SQ Lovenox Disposition: Medically stable; awaiting placement Patient was seen and examined in collaboration with Dr. Reno please see addendum The chart was completed utilizing [employer] Speech voice recognition software. Grammatical errors, random word insertions, pronoun errors, and incomplete sentences are an occasional consequence of this system due to software limitations, ambient noise, and hardware issues. Any formal questions or concerns about the content, text, or information contained within the body of this dictation should be directly addressed to the provider for clarification. Admission and Anticipated Discharge Date Admission Date: March 12, 2021 Supervising Physician Co-Signing Physician Notes Patient seen and examined at the bedside. Communicated with Esther COLIN. Patient initially here for pneumonia and UTI, status post antibiotic treatment. Was doing well but was a stroke alert on overnight of , likely TIA involving right hemisphere with left facial droop but no evidence of a completed event on imaging [CTA head and neck and MRI]. Neurology evaluated, no change in her anticoagulation/antiplatelet. Will need follow-up as an outpatient with neurology. Patient awaiting transfer to SNF. On examination, patient on room air, NAD, no crackles/wheezes on auscultation, heart and lungs examination WNL. AOx3. LLE in orthopedic boot, contracture of left hand. Chest pain reproducible. I have seen and examined the patient and have discussed the case with the provider above. I agree with the assessment and plan as stated. Subjective Patient was seen and examined in 359-1. Follow-up delirium, pneumonia and UTI. Pt is sitting up in bed eating breakfast. Continues to have off and on HALL, neck pain. Denies f/c/s, chest pain, sob,n/v/d. She is moving her bowels. Review of Systems Review of Systems: All systems reviewed & are unremarkable except as noted in HPI & below Physical Exam Physical Exam: Gen: WD/WN, F, chronically ill appearing, NAD, A&O x3 basics HEENT: Normocephalic, atraumatic, conjunctivae moist, sclerae anicteric, mucous membranes moist. Lung: Clear to Auscultation bilaterally, no wheezes/rales/rhonchi Heart: Regular rate, regular rhythm, no murmurs, rubs, or gallops Abdomen: Soft, NT, ND +BS x 4 Extremities: b/l cam boots to RLE, leslie bandage to LLE foot Skin: Warm, no rash, negative turgor. : +Romeo cath Results & Data Results & Data ([facility]) Vital Signs (Past 12 Hours) Vital Signs Temp Pulse Resp BP Pulse Ox 04/03/21 08:17 36.4 C L 69 18 135/81 96 04/03/21 04:36 36.5 C 61 18 124/65 95 Medications Administered Current Inpatient Medications Acetaminophen (Acetaminophen 325 Mg Tab) 650 mg PO Q4H PRN PRN Reason: pain/fever Stop: 04/11/21 16:59 Last Admin: 04/02/21 17:41 Dose: 650 mg Documented by: Albuterol (Albuterol 0.5% Neb Soln 2.5 Mg/0.5 Ml Vial) 2.5 mg NEB Q6R PRN PRN Reason: wheezing, SOB Stop: 04/13/21 18:59 Last Admin: 04/01/21 21:09 Dose: 2.5 mg Documented by: Albuterol (Albut/Ipratrop 3mg/0.5mg Neb 3 Ml Vial) 3 ml NEB Q4R PRN PRN Reason: Shortness Of Breath Or Wheezing Stop: 04/11/21 18:59 Last Admin: 03/28/21 11:17 Dose: 3 ml Documented by: Amlodipine Besylate (Amlodipine Besylate 5 Mg Tab) 5 mg PO QAM [facility] Stop: 04/22/21 12:14 Last Admin: 04/03/21 09:01 Dose: 5 mg Documented by: Aspirin (Aspirin 81 Mg Ectab) 81 mg PO DAILY MARIEBLL Stop: 04/12/21 08:59 Last Admin: 04/03/21 09:01 Dose: 81 mg Documented by: Carbidopa/Levodopa (Carbidopa/Levodopa 25/100mg Tab) 1 tab PO TID [facility] Stop: 04/11/21 20:59 Last Admin: 04/03/21 09:01 Dose: 1 tab Documented by: Diclofenac Sodium (Diclofenac Sod 1% Gel 100 Gm Tube) 2 gm EXT Q6 [facility] Stop: 04/13/21 15:29 Last Admin: 04/03/21 11:58 Dose: 2 gm Documented by: Docusate Sodium (Docusate Sodium 100 Mg Cap) 100 mg PO DAILY PRN PRN Reason: Constipation Stop: 04/11/21 16:59 Last Admin: 03/18/21 08:07 Dose: 100 mg Documented by: Ezetimibe (Ezetimibe 10 Mg Tablet) 10 mg PO HS [facility] Stop: 04/11/21 20:59 Last Admin: 04/02/21 21:13 Dose: 10 mg Documented by: Enoxaparin Sodium (Enoxaparin Inj 40 Mg/0.4 Ml Syr) 40 mg SQ Q24H [facility] Stop: 04/11/21 16:59 Last Admin: 04/02/21 21:13 Dose: 40 mg Documented by: Ferrous Sulfate (Ferrous Sulfate 325 Mg Tab) 325 mg PO DAILY@1100 [facility] Stop: 04/12/21 10:59 Last Admin: 04/03/21 11:58 Dose: 325 mg Documented by: Gabapentin (Gabapentin 100 Mg Cap) 200 mg PO TID [facility] Stop: 04/22/21 20:59 Last Admin: 04/03/21 09:00 Dose: 200 mg Documented by: Haloperidol Lactate (Haloperidol Lactate 5 Mg/Ml 1 Ml Vial) 1 mg IV Q6 PRN PRN Reason: Anxiety/Agitation Stop: 04/23/21 12:15 Lactase (Lactase 3000 Unit Tab) 3,000 units PO AC [facility] Stop: 04/11/21 16:59 Last Admin: 04/03/21 11:58 Dose: 3,000 units Documented by: Lactobacillus Acidoph/Casei/Rhamnos (Advanced Probiotic 1250 Mg Capsule) 2 cap PO DAILY [facility] Stop: 04/14/21 14:29 Last Admin: 04/03/21 09:00 Dose: 2 cap Documented by: Lamotrigine (Lamotrigine 25 Mg Tab) 75 mg PO HS [facility] Stop: 04/11/21 20:59 Last Admin: 04/02/21 21:14 Dose: 75 mg Documented by: Lidocaine (Lidocaine 5% 1 Patch) 1 patch TD DAILY [facility] Stop: 04/12/21 08:59 Last Admin: 04/03/21 09:00 Dose: 1 patch Documented by: Meloxicam (Meloxicam 7.5 Mg Tab) 7.5 mg PO DAILY [facility] Stop: 04/12/21 08:59 Last Admin: 03/20/21 08:46 Dose: 7.5 mg Documented by: Miscellaneous (Toviaz-Order Awaiting Action) 1 ea N/A QS [facility] Stop: 04/12/21 00:00 Last Admin: 04/03/21 09:02 Dose: Not Given Documented by: Miscellaneous (Remove Lidoderm Patch) 1 ea N/A HS [facility] Stop: 04/11/21 20:59 Last Admin: 04/02/21 21:21 Dose: Not Given Documented by: Pantoprazole Sodium (Pantoprazole 40 Mg Tab) 40 mg PO DAILY [facility] Stop: 04/12/21 08:59 Last Admin: 04/03/21 09:00 Dose: 40 mg Documented by: Polyethylene Glycol (Polyethylene (Miralax) 17 Gm Pack) 17 gm PO DAILY PRN PRN Reason: Constipation Stop: 04/11/21 16:59 Last Admin: 03/18/21 08:07 Dose: 17 gm Documented by: Potassium Chloride (Potassium Chloride 10 Meq Tabcr) 10 meq PO BID [facility] Stop: 04/11/21 20:59 Last Admin: 04/03/21 09:03 Dose: 10 meq Documented by: Risperidone (Risperidone 0.5 Mg Tablet) 0.5 mg PO BID [facility] Stop: 04/30/21 20:59 Last Admin: 04/03/21 09:00 Dose: 0.5 mg Documented by: Tramadol HCl (Tramadol Hcl 50 Mg Tablet) 50 mg PO BID PRN PRN Reason: Pain Stop: 04/11/21 16:59 Last Admin: 04/03/21 12:10 Dose: 50 mg Documented by: Zolpidem Tartrate (Zolpidem Tartrate 5 Mg Tab) 5 mg PO HS [facility] Stop: 05/02/21 20:59 Last Admin: 04/02/21 21:14 Dose: 5 mg Documented by:
[2021-04-03] MEDS: ZOLPIDEM TARTRATE 5 MG TAB PO SCH (21:03)
[2021-04-03] MEDS: lamoTRIgine 25 MG TAB PO SCH (21:04)
[2021-04-03] MEDS: EZETIMIBE 10 MG TABLET PO SCH (21:04)
[2021-04-03] MEDS: ENOXAPARIN INJ 40 MG/0.4 ML SYR SQ SCH (21:04)
[2021-04-04] MEDS: DICLOFENAC SOD 1% GEL 100 GM TUBE EXT SCH ×4 (05:48→23:08)
[2021-04-04 06:46] LABS: BUN Creatinine Ratio 17.1 (10-20); Calcium 9.3 mg/dl (8.5-10.1); Creatinine Clr Calc Pharmacy 85.5 ml/min; Est GFR (African American) 106.3 ml/min; Est GFR (Non-African American) 91.8 ml/min; Potassium 3.8 mmol/L (3.5-5.1)
[2021-04-04] MEDS: LACTASE 3000 UNIT TAB PO SCH ×3 (08:33→16:34)
[2021-04-04] MEDS: amLODIPine BESYLATE 5 MG TAB PO SCH (08:33)
[2021-04-04] MEDS: ASPIRIN 81 MG ECTAB PO SCH (08:33)
[2021-04-04] MEDS: CARBIDOPA/LEVODOPA 25/100MG TAB PO SCH ×3 (08:34→20:36)
[2021-04-04] MEDS: ADVANCED PROBIOTIC 1250 MG CAPSULE PO SCH (08:35)
[2021-04-04] MEDS: GABAPENTIN 100 MG CAP PO SCH ×3 (08:35→20:36)
[2021-04-04] MEDS: PANTOprazole 40 MG TAB PO SCH (08:35)
[2021-04-04] MEDS: risperiDONE 0.5 MG TABLET PO SCH ×2 (08:35→20:36)
[2021-04-04] MEDS: LIDOCAINE 5% 1 PATCH TD SCH (08:35)
[2021-04-04] MEDS: POTASSIUM CHLORIDE 10 MEQ TABCR PO SCH ×2 (08:42→20:35)
--- NOTE | 2021-04-04 11:58 | Hospitalist Progress Note ---
Date of Service April 04, 2021 Assessment & Plan (1) Pneumonia: (2) Catheter-associated urinary tract infection: Plan: This is a 76-year-old female with PMH Parkinson's, Mqixgsz-Bnwyk-Zxyhz disease, HTN, HLD, history of TIA, CKD stage III, chronic Romeo catheter with recurrent UTIs, wheelchair-bound, multiple lower extremity surgeries, who presented to the ED for evaluation of shortness of breath and wheezing. Being managed for the following: Delirium, Paranoia, hallucinations -Pt w/ hx of paranoid ideations related to cognitive decline now with superimposed delirium -Patient became more confused and was yelling and calling 911 on her cell phone and her family -Psychiatry consulted, stable on risperdal 0.5mg bid, ambien started -appreciate psych recs -this has been stable Chest pain - resolved -Developed chest pain on 03/27 and was transferred to [facility] with telemetry -Troponin negative x2, EKG nonischemic -Reproducible on exam, likely musculoskeletal in nature -no further recurrence Chronic Diastolic CHF pt with episode of decompensated CHF while hospitalized, now resolved -Due to reports of shortness of breath today, chest x-ray was obtained showing mild pulmonary congestion -Echo 03/21/2021 -EF 55-60%, grade 2 diastolic dysfunction 03/14 CXR: Mild pulmonary edema. Possible small left pleural effusion 03/14 IV dose of Lasix Weight up to 85kg, 04/03 78kg? saturating normally on room air monitor weight closely appears euvolemic, obtain probnp no resp sx if probnp significantly elevated consider daily lasix TIA Patient was a stroke alert overnight (03/20-03/21) Likely TIA - involving the right hemisphere with left facial droop yet on imaging has no evidence for a completed event Head and neck CTA, brain MRI unremarkable for acute findings Neurology consulted, input appreciated Do not have sufficient evidence to recommend adding Plavix to her aspirin but will observe her for recurrent events and if they do enlarge then certainly would add another antiplatelet agent Recommend to continue aspirin 81 mg daily, and 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 Fields Pneumonia Has bibasilar infiltration more on the right could be secondary to aspiration versus HCAP Initial lactic acid 3.2---> 1.9, no other signs of sepsis. MRSA screen negative Zosyn 11/15 --> change to Augmentin 03/14 -->Levaquin 03/15 d/t E.cloacae and E. coli in UCx --> stop date 03/19 Blood cultures negative Has had speech evaluation Recommended aspiration precaution during feeding - If the condition persist will need to have a formal barium swallow CAUTI: Chronic indwelling Romeo catheter History of recurrent UTIs. Patient overdue for follow-up with urology---> Alexandrea BETANCOURT to arrange for outpatient follow-up for management of her chronic Romeo UA was suggestive of infection, 03/12 urine culture Enterobacter cloacae and E. coli Off antibiotics CMT (Pojbiom-Fqoka-Qwhoo disease): S/p multiple lower extremity procedures, most recently s/p left knee closed reduction total knee arthroplasty subluxation on 02/16/2021 - patient is to remain nonweightbearing of the left lower extremity and limited weightbearing on the right lower extremity Abnormal Left ankle XR Patient complaining of multiple joint pain, more on the left leg 03/15 x-ray left ankle: A 1.8 cm linear ossific density posterior to the talus may represent an avulsion fracture from the dorsal calcaneus. Clinical correlation will be essential. Orthopedic consulted for left calcaneal superior posterior avulsion fracture status post fall: High tide walking boot removed, replaced with a dorsiflexion splint with a negative relief under the left heel and lambs wool padding to provide essentially neutral support for neutral dorsiflexion of the left ankle and heel and foot. Orthopedic recommending may use the walking boot for transfers or ambulating and wheelchair as necessary. Follow-up with outpatient orthopedics. Dr. Crain, [facility]. Parkinson disease: Continue carbidopa-levodopa Chronic pain: Continue home regimen DVT prophylaxis: SQ Lovenox Disposition: Medically stable; awaiting placement Patient was seen and examined in collaboration with Dr. Reno please see addendum The chart was completed utilizing [employer] Speech voice recognition software. Grammatical errors, random word insertions, pronoun errors, and incomplete sentences are an occasional consequence of this system due to software limitations, ambient noise, and hardware issues. Any formal questions or concerns about the content, text, or information contained within the body of this dictation should be directly addressed to the provider for clarification. Admission and Anticipated Discharge Date Admission Date: March 12, 2021 Supervising Physician Co-Signing Physician Notes Patient seen and examined at the bedside. Communicated with Esther COLIN. Patient initially here for pneumonia and UTI, status post antibiotic treatment. Was doing well but was a stroke alert on overnight of , likely TIA involving right hemisphere with left facial droop but no evidence of a completed event on imaging [CTA head and neck and MRI]. Neurology evaluated, no change in her anticoagulation/antiplatelet. Will need follow-up as an outpatient with neurology. Patient awaiting transfer to SNF. On examination, patient on room air, NAD, no crackles/wheezes on auscultation, heart and lungs examination WNL. AOx3. LLE in orthopedic boot, contracture of left hand. Chest pain reproducible. I have seen and examined the patient and have discussed the case with the provider above. I agree with the assessment and plan as stated. Subjective Patient was seen and examined in 359-1. Follow-up delirium, pneumonia and UTI. Complains of R foot pain and feeling constipated today. She states she sat on bed amaro 3 x and didn't have a BM. Per nurse she had a Large BM yesterday. Overall appetite is fair. Her HALL is improved. Denies f/c/s, chest pain, sob, n/v/d. Awaiting placement. Review of Systems Review of Systems: All systems reviewed & are unremarkable except as noted in HPI & below Physical Exam Physical Exam: Gen: WD/WN, F, chronically ill appearing, NAD, A&O x3 basics HEENT: Normocephalic, atraumatic, conjunctivae moist, sclerae anicteric, mucous membranes moist. Lung: Clear to Auscultation bilaterally, no wheezes/rales/rhonchi Heart: Regular rate, regular rhythm, no murmurs, rubs, or gallops Abdomen: Soft, NT, ND +BS x 4 Extremities: b/l cam boots to RLE, leslie bandage to LLE foot Skin: Warm, no rash, negative turgor. : +Romeo cath draining yellow urine Results & Data Results & Data ([facility]) Vital Signs (Past 12 Hours) Vital Signs Temp Pulse Resp BP Pulse Ox 04/04/21 08:07 36.4 C L 97 H 18 130/66 97 Laboratory Results BMP 04/04/21 05:51 Sodium 138 Potassium 3.8 Chloride 107 Carbon Dioxide 26 BUN 9 Creatinine 0.55 L Glucose 73 Calcium 9.3 Medications Administered Current Inpatient Medications Acetaminophen (Acetaminophen 325 Mg Tab) 650 mg PO Q4H PRN PRN Reason: pain/fever Stop: 04/11/21 16:59 Last Admin: 04/02/21 17:41 Dose: 650 mg Documented by: Albuterol (Albuterol 0.5% Neb Soln 2.5 Mg/0.5 Ml Vial) 2.5 mg NEB Q6R PRN PRN Reason: wheezing, SOB Stop: 04/13/21 18:59 Last Admin: 04/01/21 21:09 Dose: 2.5 mg Documented by: Albuterol (Albut/Ipratrop 3mg/0.5mg Neb 3 Ml Vial) 3 ml NEB Q4R PRN PRN Reason: Shortness Of Breath Or Wheezing Stop: 04/11/21 18:59 Last Admin: 03/28/21 11:17 Dose: 3 ml Documented by: Amlodipine Besylate (Amlodipine Besylate 5 Mg Tab) 5 mg PO QAM [facility] Stop: 04/22/21 12:14 Last Admin: 04/04/21 08:33 Dose: 5 mg Documented by: Aspirin (Aspirin 81 Mg Ectab) 81 mg PO DAILY [facility] Stop: 04/12/21 08:59 Last Admin: 04/04/21 08:33 Dose: 81 mg Documented by: Carbidopa/Levodopa (Carbidopa/Levodopa 25/100mg Tab) 1 tab PO TID [facility] Stop: 04/11/21 20:59 Last Admin: 04/04/21 08:34 Dose: 1 tab Documented by: Diclofenac Sodium (Diclofenac Sod 1% Gel 100 Gm Tube) 2 gm EXT Q6 [facility] Stop: 04/13/21 15:29 Last Admin: 04/04/21 05:48 Dose: Not Given Documented by: Docusate Sodium (Docusate Sodium 100 Mg Cap) 100 mg PO DAILY PRN PRN Reason: Constipation Stop: 04/11/21 16:59 Last Admin: 03/18/21 08:07 Dose: 100 mg Documented by: Ezetimibe (Ezetimibe 10 Mg Tablet) 10 mg PO HS [facility] Stop: 04/11/21 20:59 Last Admin: 04/03/21 21:04 Dose: 10 mg Documented by: Enoxaparin Sodium (Enoxaparin Inj 40 Mg/0.4 Ml Syr) 40 mg SQ Q24H [facility] Stop: 04/11/21 16:59 Last Admin: 04/03/21 21:04 Dose: 40 mg Documented by: Ferrous Sulfate (Ferrous Sulfate 325 Mg Tab) 325 mg PO DAILY@1100 [facility] Stop: 04/12/21 10:59 Last Admin: 04/03/21 11:58 Dose: 325 mg Documented by: Gabapentin (Gabapentin 100 Mg Cap) 200 mg PO TID [facility] Stop: 04/22/21 20:59 Last Admin: 04/04/21 08:35 Dose: 200 mg Documented by: Haloperidol Lactate (Haloperidol Lactate 5 Mg/Ml 1 Ml Vial) 1 mg IV Q6 PRN PRN Reason: Anxiety/Agitation Stop: 04/23/21 12:15 Lactase (Lactase 3000 Unit Tab) 3,000 units PO AC [facility] Stop: 04/11/21 16:59 Last Admin: 04/04/21 08:33 Dose: 3,000 units Documented by: Lactobacillus Acidoph/Casei/Rhamnos (Advanced Probiotic 1250 Mg Capsule) 2 cap PO DAILY [facility] Stop: 04/14/21 14:29 Last Admin: 04/04/21 08:35 Dose: 2 cap Documented by: Lamotrigine (Lamotrigine 25 Mg Tab) 75 mg PO HS [facility] Stop: 04/11/21 20:59 Last Admin: 04/03/21 21:04 Dose: 75 mg Documented by: Lidocaine (Lidocaine 5% 1 Patch) 1 patch TD DAILY [facility] Stop: 04/12/21 08:59 Last Admin: 04/04/21 08:35 Dose: 1 patch Documented by: Meloxicam (Meloxicam 7.5 Mg Tab) 7.5 mg PO DAILY [facility] Stop: 04/12/21 08:59 Last Admin: 03/20/21 08:46 Dose: 7.5 mg Documented by: Miscellaneous (Toviaz-Order Awaiting Action) 1 ea N/A QS [facility] Stop: 04/12/21 00:00 Last Admin: 04/04/21 08:44 Dose: Not Given Documented by: Miscellaneous (Remove Lidoderm Patch) 1 ea N/A HS [facility] Stop: 04/11/21 20:59 Last Admin: 04/03/21 21:03 Dose: Not Given Documented by: Pantoprazole Sodium (Pantoprazole 40 Mg Tab) 40 mg PO DAILY [facility] Stop: 04/12/21 08:59 Last Admin: 04/04/21 08:35 Dose: 40 mg Documented by: Polyethylene Glycol (Polyethylene (Miralax) 17 Gm Pack) 17 gm PO DAILY PRN PRN Reason: Constipation Stop: 04/11/21 16:59 Last Admin: 03/18/21 08:07 Dose: 17 gm Documented by: Potassium Chloride (Potassium Chloride 10 Meq Tabcr) 10 meq PO BID [facility] Stop: 04/11/21 20:59 Last Admin: 04/04/21 08:42 Dose: 10 meq Documented by: Risperidone (Risperidone 0.5 Mg Tablet) 0.5 mg PO BID [facility] Stop: 04/30/21 20:59 Last Admin: 04/04/21 08:35 Dose: 0.5 mg Documented by: Tramadol HCl (Tramadol Hcl 50 Mg Tablet) 50 mg PO BID PRN PRN Reason: Pain Stop: 04/11/21 16:59 Last Admin: 04/03/21 12:10 Dose: 50 mg Documented by: Zolpidem Tartrate (Zolpidem Tartrate 5 Mg Tab) 5 mg PO HS [facility] Stop: 05/02/21 20:59 Last Admin: 04/03/21 21:03 Dose: 5 mg Documented by:
[2021-04-04] MEDS: FERROUS SULFATE 325 MG TAB PO SCH (12:30)
[2021-04-04] MEDS: traMADol HCL 50 MG TABLET PO PRN (16:34)
[2021-04-04] MEDS: ACETAMINOPHEN 325 MG TAB PO PRN (19:37)
[2021-04-04] MEDS: ENOXAPARIN INJ 40 MG/0.4 ML SYR SQ SCH (20:35)
[2021-04-04] MEDS: ZOLPIDEM TARTRATE 5 MG TAB PO SCH (20:35)
[2021-04-04] MEDS: EZETIMIBE 10 MG TABLET PO SCH (20:36)
[2021-04-04] MEDS: lamoTRIgine 25 MG TAB PO SCH (20:36)
[2021-04-05] MEDS: DICLOFENAC SOD 1% GEL 100 GM TUBE EXT SCH ×4 (05:27→22:36)
[2021-04-05] MEDS: ACETAMINOPHEN 325 MG TAB PO PRN ×2 (06:05→20:00)
[2021-04-05] MEDS: LIDOCAINE 5% 1 PATCH TD SCH (08:26)
[2021-04-05] MEDS: LACTASE 3000 UNIT TAB PO SCH ×3 (08:26→16:23)
[2021-04-05] MEDS: amLODIPine BESYLATE 5 MG TAB PO SCH (08:27)
[2021-04-05] MEDS: ASPIRIN 81 MG ECTAB PO SCH (08:27)
[2021-04-05] MEDS: CARBIDOPA/LEVODOPA 25/100MG TAB PO SCH ×3 (08:28→20:52)
[2021-04-05] MEDS: GABAPENTIN 100 MG CAP PO SCH ×3 (08:28→20:53)
[2021-04-05] MEDS: PANTOprazole 40 MG TAB PO SCH (08:28)
[2021-04-05] MEDS: ADVANCED PROBIOTIC 1250 MG CAPSULE PO SCH (08:28)
[2021-04-05] MEDS: risperiDONE 0.5 MG TABLET PO SCH ×2 (08:29→20:54)
[2021-04-05] MEDS: POTASSIUM CHLORIDE 10 MEQ TABCR PO SCH ×2 (09:37→20:52)
[2021-04-05] MEDS: FERROUS SULFATE 325 MG TAB PO SCH (10:43)
[2021-04-05] MEDS: traMADol HCL 50 MG TABLET PO PRN (13:06)
--- NOTE | 2021-04-05 15:20 | Hospitalist Progress Note ---
Date of Service April 05, 2021 Assessment & Plan (1) Pneumonia: (2) Catheter-associated urinary tract infection: Plan: This is a 76-year-old female with PMH Parkinson's, Khyffaf-Tdawl-Btvos disease, HTN, HLD, history of TIA, CKD stage III, chronic Romeo catheter with recurrent UTIs, wheelchair-bound, multiple lower extremity surgeries, who presented to the ED for evaluation of shortness of breath and wheezing. Being managed for the following: Delirium, Paranoia, hallucinations -Pt w/ hx of paranoid ideations related to cognitive decline now with superimposed delirium -Patient became more confused and was yelling and calling 911 on her cell phone and her family -Psychiatry consulted, stable on risperdal 0.5mg bid, ambien started -appreciate psych recs -this has been stable Chest pain - resolved -Developed chest pain on 03/27 and was transferred to [facility] with telemetry -Troponin negative x2, EKG nonischemic -Reproducible on exam, likely musculoskeletal in nature -no further recurrence Chronic Diastolic CHF pt with episode of decompensated CHF while hospitalized, now resolved -Due to reports of shortness of breath today, chest x-ray was obtained showing mild pulmonary congestion -Echo 03/21/2021 -EF 55-60%, grade 2 diastolic dysfunction 03/14 CXR: Mild pulmonary edema. Possible small left pleural effusion 03/14 IV dose of Lasix Weight up to 85kg, 04/03 78kg? saturating normally on room air monitor weight closely appears euvolemic, obtain probnp no resp sx if probnp significantly elevated consider daily lasix TIA Patient was a stroke alert overnight (03/20-03/21) Likely TIA - involving the right hemisphere with left facial droop yet on imaging has no evidence for a completed event Head and neck CTA, brain MRI unremarkable for acute findings Neurology consulted, input appreciated Do not have sufficient evidence to recommend adding Plavix to her aspirin but will observe her for recurrent events and if they do enlarge then certainly would add another antiplatelet agent Recommend to continue aspirin 81 mg daily, and 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 Fields Pneumonia Has bibasilar infiltration more on the right could be secondary to aspiration versus HCAP Initial lactic acid 3.2---> 1.9, no other signs of sepsis. MRSA screen negative Zosyn 11/15 --> change to Augmentin 03/14 -->Levaquin 03/15 d/t E.cloacae and E. coli in UCx --> stop date 03/19 Blood cultures negative Has had speech evaluation Recommended aspiration precaution during feeding - If the condition persist will need to have a formal barium swallow CAUTI: Chronic indwelling Romeo catheter History of recurrent UTIs. Patient overdue for follow-up with urology---> Alexandrea BETANCOURT to arrange for outpatient follow-up for management of her chronic Romeo UA was suggestive of infection, 03/12 urine culture Enterobacter cloacae and E. coli Off antibiotics CMT (Smegclo-Pwwhq-Mgidb disease): S/p multiple lower extremity procedures, most recently s/p left knee closed reduction total knee arthroplasty subluxation on 02/16/2021 - patient is to remain nonweightbearing of the left lower extremity and limited weightbearing on the right lower extremity Abnormal Left ankle XR Patient complaining of multiple joint pain, more on the left leg 03/15 x-ray left ankle: A 1.8 cm linear ossific density posterior to the talus may represent an avulsion fracture from the dorsal calcaneus. Clinical correlation will be essential. Orthopedic consulted for left calcaneal superior posterior avulsion fracture status post fall: High tide walking boot removed, replaced with a dorsiflexion splint with a negative relief under the left heel and lambs wool padding to provide essentially neutral support for neutral dorsiflexion of the left ankle and heel and foot. Orthopedic recommending may use the walking boot for transfers or ambulating and wheelchair as necessary. Follow-up with outpatient orthopedics. [place] Crain, [facility] Parkinson disease: Continue carbidopa-levodopa Chronic pain: Continue home regimen DVT prophylaxis: SQ Lovenox Disposition: Medically stable; awaiting placement. Discussed with CM. Multiple referrals pending. Paperwork for outpatient services completed. Patient was seen and examined in collaboration with Dr. Reno please see addendu m Admission and Anticipated Discharge Date Admission Date: March 12, 2021 Supervising Physician Co-Signing Physician Notes Patient seen and examined at the bedside. Communicated with Esther COLIN. Patient initially here for pneumonia and UTI, status post antibiotic treatment. Was doing well but was a stroke alert on overnight of , likely TIA involving right hemisphere with left facial droop but no evidence of a completed event on imaging [CTA head and neck and MRI]. Neurology evaluated, no change in her anticoagulation/antiplatelet. Will need follow-up as an outpatient with neurology. Patient awaiting transfer to SNF. On examination, patient on room air, NAD, no crackles/wheezes on auscultation, heart and lungs examination WNL. AOx3. LLE in orthopedic boot, contracture of left hand. Chest pain reproducible. I have seen and examined the patient and have discussed the case with the provider above. I agree with the assessment and plan as stated. Subjective Patient was seen and examined in 359-1 for follow-up delirium, pneumonia and UTI. Continues to have chronic R foot pain, worse with movement. Was bathed today by nursing and feels better. Eating well, no nausea or vomiting. Moving bowels. Headache is improved. Denies f/c/s, chest pain, sob, n/v, abdominal pain or dysuria. Review of Systems Review of Systems: At least ten systems reviewed and negative except as noted in the HPI. Physical Exam Physical Exam: Gen: WD/WN, NAD, lying in bed, A&Ox3 with limited insight HEENT: Normocephalic, atraumatic, conjunctivae moist, sclerae anicteric, mucous membranes moist Lung: Clear to Auscultation bilaterally but diminished. No wheezes/rales/rhonchi Heart: Regular rate, regular rhythm, no murmurs, rubs, or gallops Abdomen: Soft, NT, ND +BS x 4 : Romeo Extremities: LLE in cam boot, leslie bandages in place to BLE, contractures of left hand. No edema Skin: Warm, no rash Results & Data Results & Data ([facility]) Vital Signs (Past 12 Hours) Vital Signs Temp Pulse Resp BP Pulse Ox 04/05/21 08:10 36.4 C L 62 18 143/79 H 97
--- NOTE | 2021-04-05 15:47 | Psychiatric Progress Note ---
Date of Service April 05, 2021 Impression / Recommendations Impression 76 yo female with history of paranoid ideations related to cognitive decline now with superimposed delirium resulting in worsening hallucinations and delusions. Started Risperdal 03/24/21. 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 Maxwell is a 76 yo female from [place], admitted on 03/16/21 for pneumonia and UTI. [facility]. Chief Complaint "Hey Candy, I mean Dr. Barron--why am I drooling?". Review of Systems Notes same pain complaints, sleep improved per patient Subjective Subjective Patient was seen & assessed and interval progress reviewed. Does not appear to be drooling. Feeding self egg salad and mashed potatoes without difficulty. Less preoccupied with phone. Showed me pictures of her dog bit wound rather than talking about being listened to. Paranoia seems resolved at this moment. Says she can taste food again. Physical Exam Psychiatric alert, cooperative, thoughts more organized, no SI/HI/georges. less delusions expressed, calm, no significant EPS/worsening of parkinsons Vital Signs (Past 24 Hours) Last Vital Signs Temp 36.4 C L 04/05/21 08:10 Pulse 62 04/05/21 08:10 Resp 18 04/05/21 08:10 BP 143/79 H 04/05/21 08:10 Pulse Ox 97 04/05/21 08:10 Results & Data ([facility]) Current Inpatient Medications Current Inpatient Medications: Current Inpatient Medications Acetaminophen (Acetaminophen 325 Mg Tab) 650 mg PO Q4H PRN PRN Reason: pain/fever Stop: 04/11/21 16:59 Last Admin: 04/05/21 06:05 Dose: 650 mg Documented by: Albuterol (Albuterol 0.5% Neb Soln 2.5 Mg/0.5 Ml Vial) 2.5 mg NEB Q6R PRN PRN Reason: wheezing, SOB Stop: 04/13/21 18:59 Last Admin: 04/01/21 21:09 Dose: 2.5 mg Documented by: Albuterol (Albut/Ipratrop 3mg/0.5mg Neb 3 Ml Vial) 3 ml NEB Q4R PRN PRN Reason: Shortness Of Breath Or Wheezing Stop: 04/11/21 18:59 Last Admin: 03/28/21 11:17 Dose: 3 ml Documented by: Amlodipine Besylate (Amlodipine Besylate 5 Mg Tab) 5 mg PO QAM [facility] Stop: 04/22/21 12:14 Last Admin: 04/05/21 08:27 Dose: 5 mg Documented by: Aspirin (Aspirin 81 Mg Ectab) 81 mg PO DAILY [facility] Stop: 04/12/21 08:59 Last Admin: 04/05/21 08:27 Dose: 81 mg Documented by: Carbidopa/Levodopa (Carbidopa/Levodopa 25/100mg Tab) 1 tab PO TID [facility] Stop: 04/11/21 20:59 Last Admin: 04/05/21 14:06 Dose: 1 tab Documented by: Diclofenac Sodium (Diclofenac Sod 1% Gel 100 Gm Tube) 2 gm EXT Q6 [facility] Stop: 04/13/21 15:29 Last Admin: 04/05/21 12:50 Dose: 2 gm Documented by: Docusate Sodium (Docusate Sodium 100 Mg Cap) 100 mg PO DAILY PRN PRN Reason: Constipation Stop: 04/11/21 16:59 Last Admin: 03/18/21 08:07 Dose: 100 mg Documented by: Ezetimibe (Ezetimibe 10 Mg Tablet) 10 mg PO HS [facility] Stop: 04/11/21 20:59 Last Admin: 04/04/21 20:36 Dose: 10 mg Documented by: Enoxaparin Sodium (Enoxaparin Inj 40 Mg/0.4 Ml Syr) 40 mg SQ Q24H [facility] Stop: 04/11/21 16:59 Last Admin: 04/04/21 20:35 Dose: 40 mg Documented by: Ferrous Sulfate (Ferrous Sulfate 325 Mg Tab) 325 mg PO DAILY@1100 [facility] Stop: 04/12/21 10:59 Last Admin: 04/05/21 10:43 Dose: 325 mg Documented by: Gabapentin (Gabapentin 100 Mg Cap) 200 mg PO TID [facility] Stop: 04/22/21 20:59 Last Admin: 04/05/21 14:06 Dose: 200 mg Documented by: Haloperidol Lactate (Haloperidol Lactate 5 Mg/Ml 1 Ml Vial) 1 mg IV Q6 PRN PRN Reason: Anxiety/Agitation Stop: 04/23/21 12:15 Lactase (Lactase 3000 Unit Tab) 3,000 units PO AC [facility] Stop: 04/11/21 16:59 Last Admin: 04/05/21 10:43 Dose: 3,000 units Documented by: Lactobacillus Acidoph/Casei/Rhamnos (Advanced Probiotic 1250 Mg Capsule) 2 cap PO DAILY [facility] Stop: 04/14/21 14:29 Last Admin: 04/05/21 08:28 Dose: 2 cap Documented by: Lamotrigine (Lamotrigine 25 Mg Tab) 75 mg PO HS [facility] Stop: 04/11/21 20:59 Last Admin: 04/04/21 20:36 Dose: 75 mg Documented by: Lidocaine (Lidocaine 5% 1 Patch) 1 patch TD DAILY [facility] Stop: 04/12/21 08:59 Last Admin: 04/05/21 08:26 Dose: 1 patch Documented by: Meloxicam (Meloxicam 7.5 Mg Tab) 7.5 mg PO DAILY [facility] Stop: 04/12/21 08:59 Last Admin: 03/20/21 08:46 Dose: 7.5 mg Documented by: Miscellaneous (Toviaz-Order Awaiting Action) 1 ea N/A QS [facility] Stop: 04/12/21 00:00 Last Admin: 04/05/21 08:25 Dose: Not Given Documented by: Miscellaneous (Remove Lidoderm Patch) 1 ea N/A HS [facility] Stop: 04/11/21 20:59 Last Admin: 04/04/21 20:33 Dose: 1 ea Documented by: Pantoprazole Sodium (Pantoprazole 40 Mg Tab) 40 mg PO DAILY [facility] Stop: 04/12/21 08:59 Last Admin: 04/05/21 08:28 Dose: 40 mg Documented by: Polyethylene Glycol (Polyethylene (Miralax) 17 Gm Pack) 17 gm PO DAILY PRN PRN Reason: Constipation Stop: 04/11/21 16:59 Last Admin: 03/18/21 08:07 Dose: 17 gm Documented by: Potassium Chloride (Potassium Chloride 10 Meq Tabcr) 10 meq PO BID [facility] Stop: 04/11/21 20:59 Last Admin: 04/05/21 09:37 Dose: 10 meq Documented by: Risperidone (Risperidone 0.5 Mg Tablet) 0.5 mg PO BID [facility] Stop: 04/30/21 20:59 Last Admin: 04/05/21 08:29 Dose: 0.5 mg Documented by: Tramadol HCl (Tramadol Hcl 50 Mg Tablet) 50 mg PO BID PRN PRN Reason: Pain Stop: 04/11/21 16:59 Last Admin: 04/05/21 13:06 Dose: 50 mg Documented by: Zolpidem Tartrate (Zolpidem Tartrate 5 Mg Tab) 5 mg PO [facility] Stop: 05/02/21 20:59 Last Admin: 04/04/21 20:35 Dose: 5 mg Documented by:
[2021-04-05] MEDS: ENOXAPARIN INJ 40 MG/0.4 ML SYR SQ SCH (20:52)
[2021-04-05] MEDS: lamoTRIgine 25 MG TAB PO SCH (20:53)
[2021-04-05] MEDS: EZETIMIBE 10 MG TABLET PO SCH (20:53)
[2021-04-05] MEDS: ZOLPIDEM TARTRATE 5 MG TAB PO SCH (20:55)
[2021-04-06] MEDS: traMADol HCL 50 MG TABLET PO PRN ×2 (02:00→15:10)
[2021-04-06] MEDS: DOCUSATE SODIUM 100 MG CAP PO PRN (02:36)
[2021-04-06] MEDS: DICLOFENAC SOD 1% GEL 100 GM TUBE EXT SCH ×4 (06:02→23:48)
[2021-04-06] MEDS: CARBIDOPA/LEVODOPA 25/100MG TAB PO SCH ×3 (09:44→21:49)
[2021-04-06] MEDS: GABAPENTIN 100 MG CAP PO SCH ×3 (09:44→21:48)
[2021-04-06] MEDS: risperiDONE 0.5 MG TABLET PO SCH ×2 (09:44→21:47)
[2021-04-06] MEDS: LACTASE 3000 UNIT TAB PO SCH ×3 (09:45→16:33)
[2021-04-06] MEDS: PANTOprazole 40 MG TAB PO SCH (09:45)
[2021-04-06] MEDS: ADVANCED PROBIOTIC 1250 MG CAPSULE PO SCH (09:45)
[2021-04-06] MEDS: ASPIRIN 81 MG ECTAB PO SCH (09:45)
[2021-04-06] MEDS: FERROUS SULFATE 325 MG TAB PO SCH (09:45)
[2021-04-06] MEDS: amLODIPine BESYLATE 5 MG TAB PO SCH (09:45)
[2021-04-06] MEDS: LIDOCAINE 5% 1 PATCH TD SCH (09:46)
[2021-04-06] MEDS: POTASSIUM CHLORIDE 10 MEQ TABCR PO SCH ×2 (09:55→21:47)
[2021-04-06] MEDS: ACETAMINOPHEN 325 MG TAB PO PRN ×2 (09:55→20:46)
--- NOTE | 2021-04-06 16:40 | Hospitalist Progress Note ---
Date of Service April 06, 2021 Assessment & Plan (1) Pneumonia: (2) Catheter-associated urinary tract infection: Plan: This is a 76-year-old female with PMH Parkinson's, Lgvfrqi-Jwobd-Moyrj disease, HTN, HLD, history of TIA, CKD stage III, chronic Romeo catheter with recurrent UTIs, wheelchair-bound, multiple lower extremity surgeries, who presented to the ED for evaluation of shortness of breath and wheezing. Being managed for the following: Delirium, Paranoia, hallucinations -Pt w/ hx of paranoid ideations related to cognitive decline now with superimposed delirium -Patient became more confused and was yelling and calling 911 on her cell phone and her family -Psychiatry consulted, stable on risperdal 0.5mg bid, ambien started -appreciate psych recs -this has been stable Chest pain - resolved -Developed chest pain on 03/27 and was transferred to [facility] with telemetry -Troponin negative x2, EKG nonischemic -Reproducible on exam, likely musculoskeletal in nature -no further recurrence Chronic Diastolic CHF pt with episode of decompensated CHF while hospitalized, now resolved -Due to reports of shortness of breath today, chest x-ray was obtained showing mild pulmonary congestion -Echo 03/21/2021 -EF 55-60%, grade 2 diastolic dysfunction 03/14 CXR: Mild pulmonary edema. Possible small left pleural effusion 03/14 IV dose of Lasix Weight up to 85kg, 04/03 78kg? saturating normally on room air monitor weight closely appears euvolemic, obtain probnp no resp sx if probnp significantly elevated consider daily lasix TIA Patient was a stroke alert overnight (03/20-03/21) Likely TIA - involving the right hemisphere with left facial droop yet on imaging has no evidence for a completed event Head and neck CTA, brain MRI unremarkable for acute findings Neurology consulted, input appreciated Do not have sufficient evidence to recommend adding Plavix to her aspirin but will observe her for recurrent events and if they do enlarge then certainly would add another antiplatelet agent Recommend to continue aspirin 81 mg daily, and 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 Fields Pneumonia Has bibasilar infiltration more on the right could be secondary to aspiration versus HCAP Initial lactic acid 3.2---> 1.9, no other signs of sepsis. MRSA screen negative Zosyn 11/15 --> change to Augmentin 03/14 -->Levaquin 03/15 d/t E.cloacae and E. coli in UCx --> stop date 03/19 Blood cultures negative Has had speech evaluation Recommended aspiration precaution during feeding - If the condition persist will need to have a formal barium swallow CAUTI: Chronic indwelling Romeo catheter History of recurrent UTIs. Patient overdue for follow-up with urology---> Alexandrea BETANCOURT to arrange for outpatient follow-up for management of her chronic Romeo UA was suggestive of infection, 03/12 urine culture Enterobacter cloacae and E. coli Off antibiotics CMT (Zzphemv-Jlgsq-Iphsc disease): S/p multiple lower extremity procedures, most recently s/p left knee closed reduction total knee arthroplasty subluxation on 02/16/2021 - patient is to remain nonweightbearing of the left lower extremity and limited weightbearing on the right lower extremity Abnormal Left ankle XR Patient complaining of multiple joint pain, more on the left leg 03/15 x-ray left ankle: A 1.8 cm linear ossific density posterior to the talus may represent an avulsion fracture from the dorsal calcaneus. Clinical correlation will be essential. Orthopedic consulted for left calcaneal superior posterior avulsion fracture status post fall: High tide walking boot removed, replaced with a dorsiflexion splint with a negative relief under the left heel and lambs wool padding to provide essentially neutral support for neutral dorsiflexion of the left ankle and heel and foot. Orthopedic recommending may use the walking boot for transfers or ambulating and wheelchair as necessary. Follow-up with outpatient orthopedics. [place] [facility] [place] disease: Continue carbidopa-levodopa Chronic pain: Continue home regimen DVT prophylaxis: SQ Lovenox Disposition: Medically stable; awaiting placement. Discussed with CM. Multiple referrals pending. Paperwork for outpatient services completed for CM. Patient was seen and examined in collaboration with Dr. Powers. Please see addendum Admission and Anticipated Discharge Date Admission Date: March 12, 2021 Supervising Physician Co-Signing Physician Notes Attending addendum The patient was seen and examined in medical floor. 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 Generally weak Her labs , medications imaging studies reviewed Agree with assessment and plan as outlined above by CRISTI Black DR Subjective Patient was seen and examined in for follow-up delirium, pneumonia and UTI. Continues to have chronic R foot pain, worse with movement. Eating well, no nausea or vomiting. Moving bowels. Headache is improved. Denies f/c/s, chest pain, sob, n/v, abdominal pain or dysuria. Review of Systems Review of Systems: At least ten systems reviewed and negative except as noted in the HPI. Physical Exam Physical Exam: Gen: WD/WN, NAD, lying in bed, A&Ox3 with limited insight HEENT: Normocephalic, atraumatic, conjunctivae moist, sclerae anicteric, mucous membranes moist Lung: Clear to Auscultation bilaterally but diminished. No wheezes/rales/rhonchi Heart: Regular rate, regular rhythm, no murmurs, rubs, or gallops Abdomen: Soft, NT, ND +BS x 4 : Romeo Extremities: BLE with heal bandages in place, contractures of left hand. No edema Skin: Warm, no rash Results & Data Results & Data ([facility]) Vital Signs (Past 12 Hours) Vital Signs Temp Pulse Resp BP Pulse Ox 04/06/21 16:20 36.5 C 74 14 134/72 95 04/06/21 07:00 36.4 C L 61 16 128/75 98 Diagnostic Findings Chest X-Ray 03/12/21 11:10 XR chest 1V portable CLINICAL HISTORY: shob, fluid retention TECHNIQUE: Single frontal radiograph of the chest was obtained. Comparison: Comparison is made to chest one view 11/16/2020 FINDINGS: Left total shoulder reverse shoulder arthroplasty is seen. Calcified aortic knob is seen. Bilateral lower lung predominant airspace opacities are seen. No evidence of pleural effusion or pneumothorax. IMPRESSION: Bilateral lower lung predominant airspace opacities which may represent atelectasis, pneumonia, and/or aspiration. ACT 112: Negative or not required by law. Electronically signed by: Shayne Bullock M.D. 03/12/2021 11:53 AM Chest X-Ray 03/14/21 17:05 XR chest 1V portable CLINICAL HISTORY: sob TECHNIQUE: Single frontal radiograph of the chest was obtained. Comparison: Comparison is made to chest one view 03/12/2021 FINDINGS: No lines and tubes are seen. Cardiomegaly is noted. Prominence and cephalization of the vasculature is seen. There is a possible small left pleural effusion. IMPRESSION: Mild pulmonary edema. Possible small left pleural effusion. ACT 112: Negative or not required by law. Electronically signed by: Shayne Bullock M.D. 03/14/2021 5:40 PM Chest X-Ray 03/15/21 03:56 XR chest 1V portable HISTORY: Shortness of breath. COMPARISON: Chest 03/14/2021. FINDINGS: No pneumothorax. No pleural effusions. The heart remains mildly enlarged. There is a left shoulder prosthesis. There is mild central pulmonary vascular congestion without overt edema. This is similar to the prior study. Small patchy left basilar airspace opacity has improved. IMPRESSION: 1. Cardiomegaly with mild congestive change. This is similar to the prior study. 2. Improved aeration within the small left basilar airspace opacity. ACT 112: Negative or not required by law. Electronically signed by: Alfonzo Sparrow M.D. 03/15/2021 8:44 AM Ankle X-Ray 03/15/21 14:55 LEFT ANKLE 3 VIEWS CLINICAL HISTORY: Left ankle pain. FINDINGS: 3 views of the left ankle are compared to study dated 08/05/2016. The skeletal structures are heterogeneously osteopenic. A 1.8 cm linear ossific density posterior to the talus may represent an avulsion fracture from the dorsal calcaneus. No additional fracture is suggested at the ankle joint. No bony erosion or periostitis is seen. The ankle mortise is intact. No joint effusion is identified. There is a plantar calcaneal enthesophyte. Soft tissue edema is present around the ankle. Atherosclerotic calcification is noted in the regional arteries. IMPRESSION: 1. A 1.8 cm linear ossific density posterior to the talus may represent an avulsion fracture from the dorsal calcaneus. Clinical correlation will be essential. 2. No additional findings are concerning for acute fracture. 3. Soft tissue swelling. Electronically signed by: Van Henry M.D. 03/15/2021 5:22 PM Chest CTA 11/23/21 23:19 CT ANGIOGRAPHY OF THE CHEST, PULMONARY EMBOLUS PROTOCOL CLINICAL HISTORY: Atypical chest pain. COMPARISON STUDY: Chest CT October 02, 2009. Chest radiograph March 15, 2021. TECHNIQUE: Following IV administration of 121 mL of Optiray, helical axial images of the chest were obtained utilizing the pulmonary embolus protocol. Maximal intensity projections and sagittal and coronal reformats were viewed on an independent 3D workstation. IV contrast was administered without complication. Automated exposure control was utilized for the study. A dose lowering technique was utilized adhering to the principles of ALARA. FINDINGS: No pulmonary emboli are identified although the segmental and subsegmental pulmonary arteries are suboptimally assessed on this exam. There is no thoracic aortic dissection. The caliber of the thoracic aorta is normal. There is moderate cardiomegaly. No pneumothorax or pleural effusion is noted. Mild groundglass and tree-in-bud nodules within the bilateral lower lobes are noted. There is a small hiatal hernia. Subpleural lower lobe opacities reflect atelectasis. There is no thoracic lymphadenopathy. No acute fracture or suspicious lesion is identified within visualized skeletal structures. IMPRESSION: 1. No pulmonary emboli identified although segmental and subsegmental pulmonary arteries suboptimally assessed on this exam. 2. No thoracic aortic dissection. 3. Moderate cardiomegaly. 4. Mild ground glass opacities and tree-in-bud nodules within the bilateral lower lobes. This favors a mild infectious process. A chest CT in in 3 months to ensure resolution is recommended ACT 112: Negative or not required by law. Electronically signed by: David Spring M.D. 03/21/2021 9:[address] 03/20/21 23:19 CT head/brain wo con CLINICAL HISTORY: Stroke protocol. Weakness COMPARISON STUDY: No previous studies for comparison. TECHNIQUE: Standard CT of the Brain was performed without IV contrast. A dose lowering technique was utilized adhering to the principles of ALARA. FINDINGS: Extraaxial space: There is no evidence for subdural hematoma. There are no extra-axial fluid collections. Ventricles and cisterns: The ventricles are normal in size and configuration. There is no evidence for midline shift or mass effect. Parenchyma: There is no subarachnoid or intraparenchymal hemorrhage. There is no evidence for an acute infarct or cerebral edema. There is homogeneous attenuation of the brain parenchyma. There are no gross mass lesions. Osseous structures: There is no evidence for an acute fracture. The visualized paranasal sinuses are clear. The mastoid air cells are clear bilaterally. Soft tissues: There is no evidence for focal soft tissue swelling. IMPRESSION: No acute intracerebral pathology. ACT 112: Negative or not required by law. Electronically signed by: Eliot Webber M.D. 03/21/2021 7:40 AM Head CTA 03/20/21 23:20 CT angio head w con CLINICAL HISTORY: Stroke protocol. Evaluate for CVA COMPARISON STUDY: CT brain without contrast from 03/20/2021 and previous CTA of the brain from 11/03/2020 TECHNIQUE: CT Angio of the brain was performed.followed by image post processing with coronal, and sagittal MIP reformats. Contrast Volume: Optiray 320, 121 ml FINDINGS: Vascular findings: There is normal enhancement within the internal carotid arteries bilaterally. There is normal enhancement of the anterior and middle cerebral arteries bilaterally. 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 However, the posterior communicating arteries are patent bilaterally with filling of the distal posterior cerebral arteries bilaterally and normal flow present. Findings are unchanged. Nonvascular findings: There is homogeneous attenuation of the brain parenchyma bilaterally. There is no evidence for an acute infarct or cerebral edema. IMPRESSION: Essentially negative CT angiogram of the brain with contrast. There is no significant interval change. ACT 112: Negative or not required by law. Electronically signed by: Eliot Webber M.D. 03/21/2021 7:47 AM Neck CTA 03/20/21 23:20 CT ANGIOGRAPHY OF THE NECK WITH CONTRAST CLINICAL HISTORY: Cerebrovascular accident. COMPARISON STUDY: CTA of the neck November 03, 2020. Technique: CT angiography of the carotid and vertebral arteries was obtained using Optiray and 3D reconstruction on an independent workstation. NASCET criteria was utilized. Automated exposure control was utilized for the study. A dose lowering technique was utilized adhering to the principles of ALARA. CT DOSE: 2447.00 mGy.cm Findings: Please note that the chest CT and CTA of the head will be reported separately. Postoperative findings within the cervical spine are noted. There is no acute cervical spine fracture. No cervical lymphadenopathy. The bilateral common carotid, cervical internal carotid and vertebral arteries are patent. No dissection within these vessels is identified. There is minimal plaque within the bilateral carotid bifurcations. No aneurysm within the neck is noted. There is no intraluminal thrombus IMPRESSION: Unremarkable CTA of the neck. ACT 112: Negative or not required by law. Electronically signed by: David Spring M.D. 03/21/2021 8:59 AM Brain MRI 03/21/21 00:50 MR brain wo con CLINICAL HISTORY: Evaluate for CVA. Previous stroke alert. COMPARISON STUDY: CT brain from 03/20/2021 and previous MR brain from 11/06/2020 TECHNIQUE: Multiplanar multisequence images of the Brain were performed without IV contrast. Diffusion weighted imaging and ADC mapping was also performed. FINDINGS: Extra-axial space: There is no evidence for a subdural hematoma, There are no extra-axial fluid collections. Ventricles and cisterns: The ventricles are normal in size and configuration. There is no evidence for midline shift or mass effect. Parenchyma: There is no evidence for an acute hemorrhage or infarct. No acute diffusion abnormalities are noted on diffusion weighted imaging or ADC mapping. There is normal villa-white differentiation. The sulci and gyri appear normal without effacement. The midline structures are unremarkable. The posterior fossa structures appear normal. There is no evidence for mass lesion. Osseous structures: The paranasal sinuses are well aerated. The mastoid air cells are well aerated. Soft tissues: No focal soft tissue abnormalities are identified. IMPRESSION: No acute intracranial abnormalities. ACT 112: Negative or not required by law. Electronically signed by: Eliot Webber M.D. 03/21/2021 9:43 AM Gallbladder Ultrasound 03/27/21 14:44 ABDOMINAL ULTRASOUND, RIGHT UPPER QUADRANT HISTORY: Right upper quadrant abdominal pain.. COMPARISON: None. FINDINGS: Pancreas: The pancreatic head and tail are obscured by overlying bowel gas. The remaining portions of the pancreas are within normal limits. Liver: The liver is echogenic consistent with fatty change. 16 cm in length. Gallbladder: No gallbladder wall thickening. No gallstones. CBD: 8 mm. This is considered slightly distended given the patient's age. Right kidney: No hydronephrosis. Multiple cysts with the largest in the upper pole measuring 3.5 cm. This contains a septation IMPRESSION: 1. Normal gallbladder. No gallstones. 2. Mild hepatic steatosis. 3. Slightly distended common bile duct measuring 8 mm given the patient's age. 4. Right renal cysts. Dominant 3.5 cm cyst within the upper pole contains a septation. Consider one year ultrasound follow-up to ensure stability. ACT 112: Negative or not required by law. Electronically signed by: Alfonzo Sparrow M.D. 03/27/2021 8:54 PM Chest X-Ray 03/28/21 11:47 SINGLE VIEW CHEST CLINICAL HISTORY: Dyspnea. FINDINGS: An AP, portable, upright chest radiograph is compared to study dated 03/15/2021 and correlated with chest CT dated 03/20/2021. The heart is enlarged noting atherosclerotic calcification of the thoracic aorta. There is prominence of the pulmonary vasculature. Chronic interstitial thickening is similar to previous. There is bibasilar scarring/atelectasis. No airspace consolidation or large pleural effusion is identified. Chronic elevation of the right hemidiaphragm is unchanged. No pneumothorax is seen. The skeletal structures are osteopenic. The bony thorax is grossly intact. A left shoulder arthroplasty is in place. IMPRESSION: Cardiomegaly with prominence of the pulmonary vasculature. Correlate clinically for evidence of mild congestive change. ACT 112: Negative or not required by law. Electronically signed by: Van Henry M.D. 03/28/2021 1:[address] 03/31/21 19:[address] DOSE: 998.18 mGy.cm HISTORY: Headache. TECHNIQUE: Multiaxial CT images of the head were performed without the use of intravenous contrast. Automated exposure control was utilized for this study. A dose lowering technique was utilized adhering to the principles of ALARA. Comparison: Brain MRI 03/21/2021. Findings: The paranasal sinuses and mastoid air cells are clear. The calvarium and skull base are intact. The ventricles and sulci are within normal limits. There is no mass, hematoma, midline shift, or acute infarct. Bilateral temporomandibular joint arthroplasties are noted. Evidence for bilateral lens replacement. Impression: No acute intracranial abnormality. ACT 112: Negative or not required by law. Electronically signed by: Alfonzo Sparrow M.D. 04/01/2021 9:53 AM
[2021-04-06] MEDS ORDERED: MoRPHine SULFATE 2 MG/ML CARP IV STA (19:28)
[2021-04-06] MEDS ORDERED: NITROGLYCERIN SL 0.4 MG/TAB TAB SL STA (19:53)
[2021-04-06] MEDS: lamoTRIgine 25 MG TAB PO SCH (21:47)
[2021-04-06] MEDS: ENOXAPARIN INJ 40 MG/0.4 ML SYR SQ SCH (21:48)
[2021-04-06] MEDS: EZETIMIBE 10 MG TABLET PO SCH (21:48)
[2021-04-06] MEDS: ZOLPIDEM TARTRATE 5 MG TAB PO SCH (21:54)
[2021-04-06] MEDS ORDERED: oxyCODONE HCL IR 5 MG TAB (IMMEDIATE RELEASE) PO STA (21:59)
[2021-04-07] MEDS: traMADol HCL 50 MG TABLET PO PRN ×2 (01:42→15:59)
[2021-04-07] MEDS: DICLOFENAC SOD 1% GEL 100 GM TUBE EXT SCH ×4 (05:30→23:13)
[2021-04-07 06:34] LABS: Basophils # (auto) 0.02 K/uL (0-0.2); Basophils % (auto) 0.3 %; Eosinophils # (auto) 0.32 K/uL (0-0.5); Eosinophils % (auto) 5.6 %; Hematocrit (blood only) 35.9 % (37-47); Hemoglobin 11.3 g/dL (12.0-16.0); Immature Granulocytes # (auto) 0.03 K/uL (0.00-0.02); Immature Granulocytes % (auto) 0.5 %; Lymphocytes % (auto) 31.5 %; Mean Corpuscular Hemoglobin 27.3 pg (25-34); Mean Corpuscular Hgb Conc 31.5 g/dL (32-36); Mean Corpuscular Volume 86.7 fL (80-100); Mean Platelet Volume 10.3 fL (7.4-10.4); Monocytes # (auto) 0.58 K/uL (0.11-0.59); Monocytes % (auto) 10.1 %; Neutrophils # (auto) 2.97 K/uL (1.4-6.5); Platelet Count 225 K/uL (130-400); RDW Coefficient of Variation 13.8 % (11.5-14.5); RDW Standard Deviation 44.1 fL (36.4-46.3); Red Blood Count 4.14 M/uL (4.2-5.4); White Blood Count 5.72 K/uL (4.8-10.8)
[2021-04-07 07:04] LABS: BUN Creatinine Ratio 11.5 (10-20); Blood Urea Nitrogen 6 mg/dl (7-18); Calcium 9.2 mg/dl (8.5-10.1); Carbon Dioxide 22 mmol/L (21-32); Chloride 100 mmol/L (98-107); Creatinine Clr Calc Pharmacy 91.1 ml/min; Est GFR (African American) 107.6 ml/min; Est GFR (Non-African American) 92.9 ml/min; Glucose 91 mg/dl (70-99); Potassium 3.9 mmol/L (3.5-5.1); Sodium 131 mmol/L (136-145)
[2021-04-07 07:09] LABS: Phosphorus 4.2 mg/dl (2.5-4.9); Troponin I < 0.015 ng/ml (0-0.045)
[2021-04-07] MEDS: LACTASE 3000 UNIT TAB PO SCH ×3 (08:14→16:00)
[2021-04-07] MEDS: PANTOprazole 40 MG TAB PO SCH (08:14)
[2021-04-07] MEDS: ACETAMINOPHEN 325 MG TAB PO PRN ×2 (09:26→22:27)
[2021-04-07] MEDS: amLODIPine BESYLATE 5 MG TAB PO SCH (09:26)
[2021-04-07] MEDS: ADVANCED PROBIOTIC 1250 MG CAPSULE PO SCH (09:26)
[2021-04-07] MEDS: ASPIRIN 81 MG ECTAB PO SCH (09:26)
[2021-04-07] MEDS: LIDOCAINE 5% 1 PATCH TD SCH (09:26)
[2021-04-07] MEDS: risperiDONE 0.5 MG TABLET PO SCH ×2 (09:27→21:56)
[2021-04-07] MEDS: GABAPENTIN 100 MG CAP PO SCH ×3 (09:27→21:56)
[2021-04-07] MEDS: CARBIDOPA/LEVODOPA 25/100MG TAB PO SCH ×3 (09:27→21:56)
[2021-04-07] MEDS: POTASSIUM CHLORIDE 10 MEQ TABCR PO SCH ×2 (09:27→22:27)
--- NOTE | 2021-04-07 10:31 | Electrocardiogram Report ---
Test Reason : Blood Pressure : / mmHG Vent. Rate : 078 BPM Atrial Rate : 078 BPM P-R Int : 182 ms QRS Dur : 094 ms QT Int : 366 ms P-R-T Axes : 050 -18 009 degrees QTc Int : 417 ms Normal sinus rhythm Low voltage QRS Possible Anterolateral infarct (cited on or before 27-MAR-2021) Abnormal ECG When compared with ECG of 27-MAR-2021 10:01, No significant change was found Confirmed by Guero Carpio ([id number]) on 04/07/2021 10:30:59 AM Referred By: REFERRED SELF Confirmed By:Guero Carpio
[2021-04-07] MEDS: FERROUS SULFATE 325 MG TAB PO SCH (10:54)
[2021-04-07] MEDS ORDERED: SUMAtriptan succinate 25 MG TAB PO ONE (12:39)
--- NOTE | 2021-04-07 16:41 | Hospitalist Progress Note ---
Date of Service April 07, 2021 Assessment & Plan (1) Pneumonia: (2) Catheter-associated urinary tract infection: Plan: This is a 76-year-old female with PMH Parkinson's, Psoswme-Awbga-Dfrla disease, HTN, HLD, history of TIA, CKD stage III, chronic Romeo catheter with recurrent UTIs, wheelchair-bound, multiple lower extremity surgeries, who presented to the ED for evaluation of shortness of breath and wheezing. Being managed for the following: Delirium, Paranoia, hallucinations -Pt w/ hx of paranoid ideations related to cognitive decline now with superimposed delirium -Patient became more confused and was yelling and calling 911 on her cell phone and her family -Psychiatry consulted, stable on risperdal 0.5mg bid, ambien started -appreciate psych recs -this has been stable and no more recurrence Chest pain - resolved -Developed chest pain on 03/27 and was transferred to [facility] with telemetry -Troponin negative x2, EKG nonischemic -Reproducible on exam, likely musculoskeletal in nature -Has had chest pain last night but heparin EKG and troponins are negative Chronic Diastolic CHF pt with episode of decompensated CHF while hospitalized, now resolved -Due to reports of shortness of breath today, chest x-ray was obtained showing mild pulmonary congestion -Echo 03/21/2021 -EF 55-60%, grade 2 diastolic dysfunction 03/14 CXR: Mild pulmonary edema. Possible small left pleural effusion 03/14 IV dose of Lasix Weight up to 85kg, 04/03 78kg? saturating normally on room air monitor weight closely appears euvolemic, obtain probnp Will not give any routine Lasix TIA Patient was a stroke alert overnight (03/20-03/21) Likely TIA - involving the right hemisphere with left facial droop yet on imaging has no evidence for a completed event Head and neck CTA, brain MRI unremarkable for acute findings Neurology consulted, input appreciated Do not have sufficient evidence to recommend adding Plavix to her aspirin but will observe her for recurrent events and if they do enlarge then certainly would add another antiplatelet agent Recommend to continue aspirin 81 mg daily, and 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 Fields Pneumonia Has bibasilar infiltration more on the right could be secondary to aspiration versus HCAP Initial lactic acid 3.2---> 1.9, no other signs of sepsis. MRSA screen negative Zosyn 03/12 --> change to Augmentin 03/14 -->Levaquin 03/15 d/t E.cloacae and E. coli in UCx --> stop date 03/19 Blood cultures negative Has had speech evaluation Recommended aspiration precaution during feeding - If the condition persist will need to have a formal barium swallow CAUTI: Chronic indwelling Romeo catheter History of recurrent UTIs. Patient overdue for follow-up with urology---> Alexandrea BETANCOURT to arrange for outpatient follow-up for management of her chronic Romeo UA was suggestive of infection, 03/12 urine culture Enterobacter cloacae and E. coli Off antibiotics CMT (Rylqlio-Igffw-Zjprh disease): S/p multiple lower extremity procedures, most recently s/p left knee closed reduction total knee arthroplasty subluxation on 02/16/2021 - patient is to remain nonweightbearing of the left lower extremity and limited weightbearing on the right lower extremity Abnormal Left ankle XR Patient complaining of multiple joint pain, more on the left leg 03/15 x-ray left ankle: A 1.8 cm linear ossific density posterior to the talus may represent an avulsion fracture from the dorsal calcaneus. Clinical correlation will be essential. Orthopedic consulted for left calcaneal superior posterior avulsion fracture status post fall: High tide walking boot removed, replaced with a dorsiflexion splint with a negative relief under the left heel and lambs wool padding to provide essentially neutral support for neutral dorsiflexion of the left ankle and heel and foot. Orthopedic recommending may use the walking boot for transfers or ambulating and wheelchair as necessary. Follow-up with outpatient orthopedics. Dr. Crain, [facility]. Parkinson disease: Continue carbidopa-levodopa Chronic pain: Continue home regimen DVT prophylaxis: SQ Lovenox Disposition: Medically stable; awaiting placement. Discussed with CM. Multiple referrals pending. Paperwork for outpatient services completed for CM. Remains stable Admission and Anticipated Discharge Date Admission Date: March 12, 2021 Subjective Patient was seen and examined in for follow-up delirium, pneumonia and UTI. Continues to have chronic R foot pain, worse with movement. Eating well, no nausea or vomiting. Moving bowels. Headache is improved. Denies f/c/s, chest pain, sob, n/v, abdominal pain or dysuria. 04/07/2021 The patient was seen and examined in medical floor She complains to have headache and mentioned that this is due to migraine and helped by using Zomig She has had chest pain last night but apparent EKG and troponin were negative Review of Systems Review of Systems: At least ten systems reviewed and negative except as noted in the HPI. Respiratory: No noticeable respiratory distress at rest Gastrointestinal: No nausea, vomiting or abdominal distention Physical Exam Physical Exam: Lying in bed comfortably Constitutional: well developed, well nourished, + ill appearing and + obese Eyes: PERRL, conjunctivae normal, anicteric sclerae ENMT: external ear and nose normal, oropharynx normal Neck: trachea midline, no thyromegaly Respiratory: + respiratory distress and + cough (Minimal cough) Auscultation: + diminished lung sounds and + crackles (Occasional crackles at the bases right more than the left); no wheezes Cardiovascular: Rate/Rhythm: regular rate and regular rhythm; not tachycardic Heart Sounds: normal S1 and normal S2; no murmur Extremities: + edema (Trace edema bilaterally) Gastrointestinal (Abdomen): Inspection/Auscultation: normal bowel sounds; abdomen not distended Percussion/Palpation: abdomen soft; abdomen nontender Musculoskeletal: No acute arthritis in any joint Neurologic: Alert, awake and oriented x3. Generally weak and lethargic Results & Data Results & Data ([facility]) Vital Signs (Past 12 Hours) Vital Signs Temp Pulse Resp BP Pulse Ox 04/07/21 07:21 36.6 C 65 16 137/77 97 Laboratory Results Short CBC 04/07/21 Range/Units 06:03 WBC 5.72 (4.8-10.8) K/uL Hgb 11.3 L (12.0-16.0) g/dL Hct 35.9 L (37-47) % Plt Count 225 (130-400) K/uL BMP 04/07/21 06:03 Sodium 131 L Potassium 3.9 Chloride 100 Carbon Dioxide 22 BUN 6 L Creatinine 0.53 L Glucose 91 Calcium 9.2 Cardiac Enzymes 04/06/21 04/07/21 Range/Units 19:41 06:03 Troponin I < 0.015 < 0.015 (0-0.045) ng/ml Medications Administered Current Inpatient Medications Acetaminophen (Acetaminophen 325 Mg Tab) 650 mg PO Q4H PRN PRN Reason: pain/fever Stop: 04/11/21 16:59 Last Admin: 04/07/21 09:26 Dose: 650 mg Documented by: Albuterol (Albuterol 0.5% Neb Soln 2.5 Mg/0.5 Ml Vial) 2.5 mg NEB Q6R PRN PRN Reason: wheezing, SOB Stop: 04/13/21 18:59 Last Admin: 04/01/21 21:09 Dose: 2.5 mg Documented by: Albuterol (Albut/Ipratrop 3mg/0.5mg Neb 3 Ml Vial) 3 ml NEB Q4R PRN PRN Reason: Shortness Of Breath Or Wheezing Stop: 04/11/21 18:59 Last Admin: 03/28/21 11:17 Dose: 3 ml Documented by: Amlodipine Besylate (Amlodipine Besylate 5 Mg Tab) 5 mg PO QAM [facility] Stop: 04/22/21 12:14 Last Admin: 04/07/21 09:26 Dose: 5 mg Documented by: Aspirin (Aspirin 81 Mg Ectab) 81 mg PO DAILY [facility] Stop: 04/12/21 08:59 Last Admin: 04/07/21 09:26 Dose: 81 mg Documented by: Carbidopa/Levodopa (Carbidopa/Levodopa 25/100mg Tab) 1 tab PO TID [facility] Stop: 04/11/21 20:59 Last Admin: 04/07/21 13:24 Dose: 1 tab Documented by: Diclofenac Sodium (Diclofenac Sod 1% Gel 100 Gm Tube) 2 gm EXT Q6 [facility] Stop: 04/13/21 15:29 Last Admin: 04/07/21 16:00 Dose: 2 gm Documented by: Docusate Sodium (Docusate Sodium 100 Mg Cap) 100 mg PO DAILY PRN PRN Reason: Constipation Stop: 04/11/21 16:59 Last Admin: 04/06/21 02:36 Dose: 100 mg Documented by: Ezetimibe (Ezetimibe 10 Mg Tablet) 10 mg PO HS [facility] Stop: 04/11/21 20:59 Last Admin: 04/06/21 21:48 Dose: 10 mg Documented by: Enoxaparin Sodium (Enoxaparin Inj 40 Mg/0.4 Ml Syr) 40 mg SQ Q24H [facility] Stop: 04/11/21 16:59 Last Admin: 04/06/21 21:48 Dose: 40 mg Documented by: Ferrous Sulfate (Ferrous Sulfate 325 Mg Tab) 325 mg PO DAILY@1100 [facility] Stop: 04/12/21 10:59 Last Admin: 04/07/21 10:54 Dose: 325 mg Documented by: Gabapentin (Gabapentin 100 Mg Cap) 200 mg PO TID [facility] Stop: 04/22/21 20:59 Last Admin: 04/07/21 13:23 Dose: 200 mg Documented by: Haloperidol Lactate (Haloperidol Lactate 5 Mg/Ml 1 Ml Vial) 1 mg IV Q6 PRN PRN Reason: Anxiety/Agitation Stop: 04/23/21 12:15 Lactase (Lactase 3000 Unit Tab) 3,000 units PO AC [facility] Stop: 04/11/21 16:59 Last Admin: 04/07/21 16:00 Dose: 3,000 units Documented by: Lactobacillus Acidoph/Casei/Rhamnos (Advanced Probiotic 1250 Mg Capsule) 2 cap PO DAILY [facility] Stop: 04/14/21 14:29 Last Admin: 04/07/21 09:26 Dose: 2 cap Documented by: Lamotrigine (Lamotrigine 25 Mg Tab) 75 mg PO HS [facility] Stop: 04/11/21 20:59 Last Admin: 04/06/21 21:47 Dose: 75 mg Documented by: Lidocaine (Lidocaine 5% 1 Patch) 1 patch TD DAILY [facility] Stop: 04/12/21 08:59 Last Admin: 04/07/21 09:26 Dose: 1 patch Documented by: Meloxicam (Meloxicam 7.5 Mg Tab) 7.5 mg PO DAILY [facility] Stop: 04/12/21 08:59 Last Admin: 03/20/21 08:46 Dose: 7.5 mg Documented by: Miscellaneous (Toviaz-Order Awaiting Action) 1 ea N/A QS [facility] Stop: 04/12/21 00:00 Last Admin: 04/07/21 15:00 Dose: Not Given Documented by: Miscellaneous (Remove Lidoderm Patch) 1 ea N/A HS [facility] Stop: 04/11/21 20:59 Last Admin: 04/06/21 21:54 Dose: 1 ea Documented by: Pantoprazole Sodium (Pantoprazole 40 Mg Tab) 40 mg PO DAILY [facility] Stop: 04/12/21 08:59 Last Admin: 04/07/21 08:14 Dose: 40 mg Documented by: Polyethylene Glycol (Polyethylene (Miralax) 17 Gm Pack) 17 gm PO DAILY PRN PRN Reason: Constipation Stop: 04/11/21 16:59 Last Admin: 03/18/21 08:07 Dose: 17 gm Documented by: Potassium Chloride (Potassium Chloride 10 Meq Tabcr) 10 meq PO BID [facility] Stop: 04/11/21 20:59 Last Admin: 04/07/21 09:27 Dose: 10 meq Documented by: Risperidone (Risperidone 0.5 Mg Tablet) 0.5 mg PO BID [facility] Stop: 04/30/21 20:59 Last Admin: 04/07/21 09:27 Dose: 0.5 mg Documented by: Tramadol HCl (Tramadol Hcl 50 Mg Tablet) 50 mg PO BID PRN PRN Reason: Pain Stop: 04/11/21 16:59 Last Admin: 04/07/21 15:59 Dose: 50 mg Documented by: Zolpidem Tartrate (Zolpidem Tartrate 5 Mg Tab) 5 mg PO HS [facility] Stop: 05/02/21 20:59 Last Admin: 04/06/21 21:54 Dose: 5 mg Documented by:
[2021-04-07] MEDS: lamoTRIgine 25 MG TAB PO SCH (21:56)
[2021-04-07] MEDS: EZETIMIBE 10 MG TABLET PO SCH (21:56)
[2021-04-07] MEDS: ENOXAPARIN INJ 40 MG/0.4 ML SYR SQ SCH (21:57)
[2021-04-07] MEDS: ZOLPIDEM TARTRATE 5 MG TAB PO SCH (22:27)
[2021-04-08] MEDS: DICLOFENAC SOD 1% GEL 100 GM TUBE EXT SCH ×3 (05:36→19:03)
[2021-04-08] MEDS: LACTASE 3000 UNIT TAB PO SCH ×3 (07:45→16:44)
[2021-04-08] MEDS: CARBIDOPA/LEVODOPA 25/100MG TAB PO SCH ×3 (07:46→20:51)
[2021-04-08] MEDS: amLODIPine BESYLATE 5 MG TAB PO SCH (07:46)
[2021-04-08] MEDS: risperiDONE 0.5 MG TABLET PO SCH ×2 (07:46→20:50)
[2021-04-08] MEDS: GABAPENTIN 100 MG CAP PO SCH ×3 (07:46→20:49)
[2021-04-08] MEDS: ADVANCED PROBIOTIC 1250 MG CAPSULE PO SCH (07:47)
[2021-04-08] MEDS: PANTOprazole 40 MG TAB PO SCH (07:47)
[2021-04-08] MEDS: ASPIRIN 81 MG ECTAB PO SCH (07:47)
[2021-04-08] MEDS: FERROUS SULFATE 325 MG TAB PO SCH (07:47)
[2021-04-08] MEDS: LIDOCAINE 5% 1 PATCH TD SCH (07:48)
[2021-04-08] MEDS: POTASSIUM CHLORIDE 10 MEQ TABCR PO SCH ×2 (08:07→20:49)
[2021-04-08] MEDS: traMADol HCL 50 MG TABLET PO PRN (08:07)
[2021-04-08] MEDS: SUMAtriptan succinate 25 MG TAB PO PRN (13:40)
--- NOTE | 2021-04-08 13:53 | Hospitalist Progress Note ---
Date of Service April 08, 2021 Assessment & Plan (1) Pneumonia: (2) Catheter-associated urinary tract infection: Plan: This is a 76-year-old female with PMH Parkinson's, Xgsmple-Wpchj-Lijix disease, HTN, HLD, history of TIA, CKD stage III, chronic Romeo catheter with recurrent UTIs, wheelchair-bound, multiple lower extremity surgeries, who presented to the ED for evaluation of shortness of breath and wheezing. Being managed for the following: Delirium, Paranoia, hallucinations -Pt w/ hx of paranoid ideations related to cognitive decline now with superimposed delirium -Patient became more confused and was yelling and calling 911 on her cell phone and her family -Psychiatry consulted, stable on risperdal 0.5mg bid, ambien started -appreciate psych recs -this has been stable and no more recurrence Chest pain - resolved -Developed chest pain on 03/27 and was transferred to [facility] with telemetry -Troponin negative x2, EKG nonischemic -Reproducible on exam, likely musculoskeletal in nature -Has had chest pain last night but heparin EKG and troponins are negative -No more chest pain and or cardiac symptoms Chronic Diastolic CHF pt with episode of decompensated CHF while hospitalized, now resolved -Due to reports of shortness of breath today, chest x-ray was obtained showing mild pulmonary congestion -Echo 03/21/2021 -EF 55-60%, grade 2 diastolic dysfunction 03/14 CXR: Mild pulmonary edema. Possible small left pleural effusion 03/14 IV dose of Lasix Weight up to 85kg, 04/03 78kg? saturating normally on room air monitor weight closely appears euvolemic, obtain probnp Has minimal crackles at the bases and will give a small dose of Lasix intravenously today TIA Patient was a stroke alert overnight (03/20-03/21) Likely TIA - involving the right hemisphere with left facial droop yet on imaging has no evidence for a completed event Head and neck CTA, brain MRI unremarkable for acute findings Neurology consulted, input appreciated Do not have sufficient evidence to recommend adding Plavix to her aspirin but will observe her for recurrent events and if they do enlarge then certainly would add another antiplatelet agent Recommend to continue aspirin 81 mg daily, and 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 Fields Pneumonia Has bibasilar infiltration more on the right could be secondary to aspiration versus HCAP Initial lactic acid 3.2---> 1.9, no other signs of sepsis. MRSA screen negative Zosyn 03/12 --> change to Augmentin 03/14 -->Levaquin 03/15 d/t E.cloacae and E. coli in UCx --> stop date 03/19 Blood cultures negative Has had speech evaluation Recommended aspiration precaution during feeding - If the condition persist will need to have a formal barium swallow No fever and no chills CAUTI: Chronic indwelling Romeo catheter History of recurrent UTIs. Patient overdue for follow-up with urology---> Alexandrea BETANCOURT to arrange for outpatient follow-up for management of her chronic Romeo UA was suggestive of infection, 03/12 urine culture Enterobacter cloacae and E. coli Off antibiotics CMT (Lshsyos-Blmij-Pzidp disease): S/p multiple lower extremity procedures, most recently s/p left knee closed reduction total knee arthroplasty subluxation on 02/16/2021 - patient is to remain nonweightbearing of the left lower extremity and limited weightbearing on the right lower extremity Abnormal Left ankle XR Patient complaining of multiple joint pain, more on the left leg 03/15 x-ray left ankle: A 1.8 cm linear ossific density posterior to the talus may represent an avulsion fracture from the dorsal calcaneus. Clinical correl ation will be essential. Orthopedic consulted for left calcaneal superior posterior avulsion fracture status post fall: High tide walking boot removed, replaced with a dorsiflexion splint with a negative relief under the left heel and lambs wool padding to provide essentially neutral support for neutral dorsiflexion of the left ankle and heel and foot. Orthopedic recommending may use the walking boot for transfers or ambulating and wheelchair as necessary. Follow-up with outpatient orthopedics. Dr. Crain, [facility] [place]. Parkinson disease: Continue carbidopa-levodopa Chronic pain: Continue home regimen DVT prophylaxis: SQ Lovenox Disposition: Medically stable; awaiting placement. Discussed with CM. Multiple referrals pending. Paperwork for outpatient services completed for CM. Remains stable Admission and Anticipated Discharge Date Admission Date: March 12, 2021 Subjective Patient was seen and examined in for follow-up delirium, pneumonia and UTI. Con tinues to have chronic R foot pain, worse with movement. Eating well, no nausea or vomiting. Moving bowels. Headache is improved. Denies f/c/s, chest pain, sob, n/v, abdominal pain or dysuria. 04/07/2021 The patient was seen and examined in medical floor She complains to have headache and mentioned that this is due to migraine and helped by using Zomig She has had chest pain last night but apparent EKG and troponin were negative 04/08/21 The patient was seen and examined in medical floor She has some vague pain syndrome and today complains to have headache again and wants to have triptan to relieve it Denies any other symptoms Review of Systems Review of Systems: At least ten systems reviewed and negative except as noted in the HPI. Respiratory: No noticeable respiratory distress at rest Gastrointestinal: No nausea, vomiting or abdominal distention Physical Exam Physical Exam: Lying in bed comfortably Constitutional: well developed, well nourished, + ill appearing and + obese Eyes: PERRL, conjunctivae normal, anicteric sclerae ENMT: external ear and nose normal, oropharynx normal Neck: trachea midline, no thyromegaly Respiratory: + respiratory distress and + cough (Minimal cough) Auscultation: + diminished lung sounds and + crackles (Occasional crackles at the bases right more than the left); no wheezes Cardiovascular: Rate/Rhythm: regular rate and regular rhythm; not tachycardic Heart Sounds: normal S1 and normal S2; no murmur Extremities: + edema (Trace edema bilaterally) Gastrointestinal (Abdomen): Inspection/Auscultation: normal bowel sounds; abdomen not distended Percussion/Palpation: abdomen soft; abdomen nontender Musculoskeletal: No acute arthritis in any joint Neurologic: Alert and awake and oriented x3. 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 mainly Lymphatic: no cervical or axillary lymphadenopathy Results & Data Results & Data ([facility]) Vital Signs (Past 12 Hours) Vital Signs Temp Pulse Resp BP Pulse Ox 04/08/21 06:55 36.6 C 65 16 127/75 98 Medications Administered Current Inpatient Medications Acetaminophen (Acetaminophen 325 Mg Tab) 650 mg PO Q4H PRN PRN Reason: pain/fever Stop: 04/11/21 16:59 Last Admin: 04/07/21 22:27 Dose: 650 mg Documented by: Albuterol (Albuterol 0.5% Neb Soln 2.5 Mg/0.5 Ml Vial) 2.5 mg NEB Q6R PRN PRN Reason: wheezing, SOB Stop: 04/13/21 18:59 Last Admin: 04/01/21 21:09 Dose: 2.5 mg Documented by: Albuterol (Albut/Ipratrop 3mg/0.5mg Neb 3 Ml Vial) 3 ml NEB Q4R PRN PRN Reason: Shortness Of Breath Or Wheezing Stop: 04/11/21 18:59 Last Admin: 03/28/21 11:17 Dose: 3 ml Documented by: Amlodipine Besylate (Amlodipine Besylate 5 Mg Tab) 5 mg PO QAM [facility] Stop: 04/22/21 12:14 Last Admin: 04/08/21 07:46 Dose: 5 mg Documented by: Aspirin (Aspirin 81 Mg Ectab) 81 mg PO DAILY [facility] Stop: 04/12/21 08:59 Last Admin: 04/08/21 07:47 Dose: 81 mg Documented by: Carbidopa/Levodopa (Carbidopa/Levodopa 25/100mg Tab) 1 tab PO TID [facility] Stop: 04/11/21 20:59 Last Admin: 04/08/21 13:41 Dose: 1 tab Documented by: Diclofenac Sodium (Diclofenac Sod 1% Gel 100 Gm Tube) 2 gm EXT Q6 [facility] Stop: 04/13/21 15:29 Last Admin: 04/08/21 13:41 Dose: Not Given Documented by: Docusate Sodium (Docusate Sodium 100 Mg Cap) 100 mg PO DAILY PRN PRN Reason: Constipation Stop: 04/11/21 16:59 Last Admin: 04/06/21 02:36 Dose: 100 mg Documented by: Ezetimibe (Ezetimibe 10 Mg Tablet) 10 mg PO HS [facility] Stop: 04/11/21 20:59 Last Admin: 04/07/21 21:56 Dose: 10 mg Documented by: Enoxaparin Sodium (Enoxaparin Inj 40 Mg/0.4 Ml Syr) 40 mg SQ Q24H [facility] Stop: 04/11/21 16:59 Last Admin: 04/07/21 21:57 Dose: 40 mg Documented by: Ferrous Sulfate (Ferrous Sulfate 325 Mg Tab) 325 mg PO DAILY@1100 [facility] Stop: 04/12/21 10:59 Last Admin: 04/08/21 07:47 Dose: 325 mg Documented by: Gabapentin (Gabapentin 100 Mg Cap) 200 mg PO TID [facility] Stop: 04/22/21 20:59 Last Admin: 04/08/21 13:41 Dose: 200 mg Documented by: Haloperidol Lactate (Haloperidol Lactate 5 Mg/Ml 1 Ml Vial) 1 mg IV Q6 PRN PRN Reason: Anxiety/Agitation Stop: 04/23/21 12:15 Lactase (Lactase 3000 Unit Tab) 3,000 units PO AC [facility] Stop: 04/11/21 16:59 Last Admin: 04/08/21 12:42 Dose: 3,000 units Documented by: Lactobacillus Acidoph/Casei/Rhamnos (Advanced Probiotic 1250 Mg Capsule) 2 cap PO DAILY [facility] Stop: 04/14/21 14:29 Last Admin: 04/08/21 07:47 Dose: 2 cap Documented by: Lamotrigine (Lamotrigine 25 Mg Tab) 75 mg PO HS [facility] Stop: 04/11/21 20:59 Last Admin: 04/07/21 21:56 Dose: 75 mg Documented by: Lidocaine (Lidocaine 5% 1 Patch) 1 patch TD DAILY [facility] Stop: 04/12/21 08:59 Last Admin: 04/08/21 07:48 Dose: 1 patch Documented by: Meloxicam (Meloxicam 7.5 Mg Tab) 7.5 mg PO DAILY [facility] Stop: 04/12/21 08:59 Last Admin: 03/20/21 08:46 Dose: 7.5 mg Documented by: Miscellaneous (Toviaz-Order Awaiting Action) 1 ea N/A QS [facility] Stop: 04/12/21 00:00 Last Admin: 04/08/21 07:48 Dose: Not Given Documented by: Miscellaneous (Remove Lidoderm Patch) 1 ea N/A HS [facility] Stop: 04/11/21 20:59 Last Admin: 04/07/21 21:57 Dose: 1 ea Documented by: Pantoprazole Sodium (Pantoprazole 40 Mg Tab) 40 mg PO DAILY [facility] Stop: 04/12/21 08:59 Last Admin: 04/08/21 07:47 Dose: 40 mg Documented by: Polyethylene Glycol (Polyethylene (Miralax) 17 Gm Pack) 17 gm PO DAILY PRN PRN Reason: Constipation Stop: 04/11/21 16:59 Last Admin: 03/18/21 08:07 Dose: 17 gm Documented by: Potassium Chloride (Potassium Chloride 10 Meq Tabcr) 10 meq PO BID [facility] Stop: 04/11/21 20:59 Last Admin: 04/08/21 08:07 Dose: 10 meq Documented by: Risperidone (Risperidone 0.5 Mg Tablet) 0.5 mg PO BID [facility] Stop: 04/30/21 20:59 Last Admin: 04/08/21 07:46 Dose: 0.5 mg Documented by: Sumatriptan Succinate (Sumatriptan Succinate 25 Mg Tab) 25 mg PO DAILY PRN PRN Reason: Migraine Headache Stop: 05/08/21 10:18 Last Admin: 04/08/21 13:40 Dose: 25 mg Documented by: Tramadol HCl (Tramadol Hcl 50 Mg Tablet) 50 mg PO BID PRN PRN Reason: Pain Stop: 04/11/21 16:59 Last Admin: 04/08/21 08:07 Dose: 50 mg Documented by: Zolpidem Tartrate (Zolpidem Tartrate 5 Mg Tab) 5 mg PO HS [facility] Stop: 05/02/21 20:59 Last Admin: 04/07/21 22:27 Dose: 5 mg Documented by:
[2021-04-08] MEDS: ACETAMINOPHEN 325 MG TAB PO PRN ×2 (16:43→20:49)
[2021-04-08] MEDS: lamoTRIgine 25 MG TAB PO SCH (20:50)
[2021-04-08] MEDS: EZETIMIBE 10 MG TABLET PO SCH (20:51)
[2021-04-08] MEDS: ENOXAPARIN INJ 40 MG/0.4 ML SYR SQ SCH (20:52)
[2021-04-08] MEDS: ZOLPIDEM TARTRATE 5 MG TAB PO SCH (21:00)
[2021-04-09] MEDS: DICLOFENAC SOD 1% GEL 100 GM TUBE EXT SCH ×4 (01:14→18:03)
[2021-04-09] MEDS: traMADol HCL 50 MG TABLET PO PRN ×2 (07:46→21:56)
[2021-04-09] MEDS: LACTASE 3000 UNIT TAB PO SCH ×3 (07:46→16:01)
[2021-04-09 08:50] LABS: Basophils # (auto) 0.02 K/uL (0-0.2); Basophils % (auto) 0.4 %; Eosinophils # (auto) 0.28 K/uL (0-0.5); Eosinophils % (auto) 4.9 %; Hematocrit (blood only) 35.7 % (37-47); Hemoglobin 11.3 g/dL (12.0-16.0); Lymphocytes # (auto) 1.64 K/uL (1.2-3.4); Lymphocytes % (auto) 28.8 %; Mean Corpuscular Hemoglobin 27.6 pg (25-34); Mean Corpuscular Hgb Conc 31.7 g/dL (32-36); Mean Corpuscular Volume 87.3 fL (80-100); Monocytes # (auto) 0.52 K/uL (0.11-0.59); Monocytes % (auto) 9.1 %; Neutrophils # (auto) 3.24 K/uL (1.4-6.5); Neutrophils % (auto) 56.8 %; Platelet Count 241 K/uL (130-400); RDW Coefficient of Variation 13.9 % (11.5-14.5); RDW Standard Deviation 44.7 fL (36.4-46.3); Red Blood Count 4.09 M/uL (4.2-5.4)
[2021-04-09 09:16] LABS: BUN Creatinine Ratio 20.3 (10-20); Calcium 8.9 mg/dl (8.5-10.1); Creatinine Clr Calc Pharmacy 90.1 ml/min; Est GFR (African American) 107.6 ml/min; Est GFR (Non-African American) 92.9 ml/min; Magnesium 1.5 mg/dl (1.8-2.4); Phosphorus 3.8 mg/dl (2.5-4.9)
[2021-04-09 09:29] LABS: Potassium 3.5 mmol/L (3.5-5.1)
[2021-04-09] MEDS: ADVANCED PROBIOTIC 1250 MG CAPSULE PO SCH (09:48)
[2021-04-09] MEDS: GABAPENTIN 100 MG CAP PO SCH ×3 (09:49→21:20)
[2021-04-09] MEDS: amLODIPine BESYLATE 5 MG TAB PO SCH (09:50)
[2021-04-09] MEDS: PANTOprazole 40 MG TAB PO SCH (09:50)
[2021-04-09] MEDS: risperiDONE 0.5 MG TABLET PO SCH ×2 (09:50→21:21)
[2021-04-09] MEDS: ASPIRIN 81 MG ECTAB PO SCH (09:51)
[2021-04-09] MEDS: CARBIDOPA/LEVODOPA 25/100MG TAB PO SCH ×3 (09:51→21:18)
[2021-04-09] MEDS: POTASSIUM CHLORIDE 10 MEQ TABCR PO SCH ×2 (09:51→21:21)
[2021-04-09] MEDS: LIDOCAINE 5% 1 PATCH TD SCH (09:52)
[2021-04-09] MEDS: FERROUS SULFATE 325 MG TAB PO SCH (12:08)
--- NOTE | 2021-04-09 14:41 | Hospitalist Progress Note ---
Date of Service April 09, 2021 Assessment & Plan (1) Pneumonia: (2) Catheter-associated urinary tract infection: Plan: This is a 76-year-old female with PMH Parkinson's, Getjvzu-Zsdpa-Echlp disease, HTN, HLD, history of TIA, CKD stage III, chronic Romeo catheter with recurrent UTIs, wheelchair-bound, multiple lower extremity surgeries, who presented to the ED for evaluation of shortness of breath and wheezing. Being managed for the following: Delirium, Paranoia, hallucinations -Pt w/ hx of paranoid ideations related to cognitive decline now with superimposed delirium -Patient became more confused and was yelling and calling 911 on her cell phone and her family -Psychiatry consulted, stable on risperdal 0.5mg bid, ambien started -appreciate psych recs -this has been stable and no more recurrence Chest pain - resolved -Developed chest pain on 03/27 and was transferred to [facility] [place] with telemetry -Troponin negative x2, EKG nonischemic -Reproducible on exam, likely musculoskeletal in nature -Another episode of chest pain on 04/06 evening, EKG and troponin unremarkable Chronic Diastolic CHF pt with episode of decompensated CHF while hospitalized, now resolved -Echo 03/21/2021 -EF 55-60%, grade 2 diastolic dysfunction 03/14 CXR: Mild pulmonary edema. Possible small left pleural effusion 03/14 IV dose of Lasix 03/28 IV Lasix x 1 dose Appears euvolemic today TIA Patient was a stroke alert overnight (03/20-03/21) Likely TIA - involving the right hemisphere with left facial droop yet on imaging has no evidence for a completed event Head and neck CTA, brain MRI unremarkable for acute findings Neurology consulted, input appreciated Do not have sufficient evidence to recommend adding Plavix to her aspirin but will observe her for recurrent events and if they do enlarge then certainly would add another antiplatelet agent Recommend to continue aspirin 81 mg daily, and 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 Fields Pneumonia Has bibasilar infiltration more on the right could be secondary to aspiration versus HCAP Initial lactic acid 3.2---> 1.9, no other signs of sepsis. MRSA screen negative Zosyn 03/12 --> change to Augmentin 03/14 -->Levaquin 03/15 d/t E.cloacae and E. coli in UCx --> stop date 03/19 Blood cultures negative Has had speech evaluation Recommended aspiration precaution during feeding - If the condition persist will need to have a formal barium swallow No fever and no chills CAUTI: Chronic indwelling Romeo catheter History of recurrent UTIs. Patient overdue for follow-up with urology---> Alexandrea BETANCOURT to arrange for outpatient follow-up for management of her chronic Romeo UA was suggestive of infection, 03/12 urine culture Enterobacter cloacae and E. coli Off antibiotics CMT (Tmsesoi-Pkipz-Jhhgt disease): S/p multiple lower extremity procedures, most recently s/p left knee closed reduction total knee arthroplasty subluxation on 02/16/2021 - patient is to remain nonweightbearing of the left lower extremity and limited weightbearing on the right lower extremity Abnormal Left ankle XR Patient complaining of multiple joint pain, more on the left leg 03/15 x-ray left ankle: A 1.8 cm linear ossific density posterior to the talus may represent an avulsion fracture from the dorsal calcaneus. Clinical correlation will be essential. Orthopedic consulted for left calcaneal superior posterior avulsion fracture sta tus post fall: High tide walking boot removed, replaced with a dorsiflexion splint with a negative relief under the left heel and lambs wool padding to provide essentially neutral support for neutral dorsiflexion of the left ankle and heel and foot. Orthopedic recommending may use the walking boot for transfers or ambulating and wheelchair as necessary. Follow-up with outpatient orthopedics. Dr. Crain, [facility] [place] Parkinson disease: Continue carbidopa-levodopa Chronic pain: Continue home regimen DVT prophylaxis: SQ Lovenox Disposition: Medically stable; awaiting placement. Discussed with CM. Multiple referrals pending. Admission and Anticipated Discharge Date Admission Date: March 12, 2021 Supervising Physician Co-Signing Physician Notes Attending addendum: The patient was seen and examined in medical unit She remained stable and denies any significant symptoms On examination No apparent distress at rest Hemodynamically stable Chestminimal crackles at the bases HeartS1-S2, regular Abdomenbenign Her recent labs and imaging studies reviewed She remained medically stable with multiple comorbid condition as mentioned a sandra Agree with assessment and plan as outlined above by Tracy Powers Subjective Patient seen and examined. Follow-up for delirium, UTI, pneumonia. Patient reporting some mild nausea and headache today. No vomiting, tolerated breakfast per RN. Does not appear to be in any acute distress. Denies chest pain or shortness of breath. Review of Systems Review of Systems: ROS per HPI, all other systems reviewed and negative Physical Exam Constitutional: WD/WN, vitals as above no acute distress Respiratory: normal respiratory effort, lungs clear to auscultation Cardiovascular: Rate/Rhythm: regular rate and regular rhythm Vessels: normal peripheral pulses Extremities: no edema Gastrointestinal (Abdomen): Percussion/Palpation: abdomen soft; abdomen nontender Musculoskeletal: Chronic weakness BLE, left hand contracture Skin: no rashes, warm and dry Neurologic: no focal motor deficits Psychiatric: Orientation: alert and oriented x 3 Affect: + flat affect Results & Data Results & Data ([place]) Vital Signs (Past 12 Hours) Vital Signs Temp Pulse Resp BP Pulse Ox 04/09/21 07:28 36.7 C 63 16 145/75 H 98
[2021-04-09] MEDS: ACETAMINOPHEN 325 MG TAB PO PRN (14:58)
[2021-04-09] MEDS: ENOXAPARIN INJ 40 MG/0.4 ML SYR SQ SCH (21:18)
[2021-04-09] MEDS: EZETIMIBE 10 MG TABLET PO SCH (21:19)
[2021-04-09] MEDS: lamoTRIgine 25 MG TAB PO SCH (21:20)
[2021-04-09] MEDS: ZOLPIDEM TARTRATE 5 MG TAB PO SCH (21:22)
[2021-04-10] MEDS: DICLOFENAC SOD 1% GEL 100 GM TUBE EXT SCH ×4 (01:26→17:04)
[2021-04-10] MEDS: traMADol HCL 50 MG TABLET PO PRN ×2 (05:13→20:41)
[2021-04-10] MEDS: ACETAMINOPHEN 325 MG TAB PO PRN ×2 (08:04→14:13)
[2021-04-10] MEDS: LIDOCAINE 5% 1 PATCH TD SCH (08:05)
[2021-04-10] MEDS: LACTASE 3000 UNIT TAB PO SCH ×3 (08:06→17:03)
[2021-04-10] MEDS: CARBIDOPA/LEVODOPA 25/100MG TAB PO SCH ×3 (08:06→20:41)
[2021-04-10] MEDS: ASPIRIN 81 MG ECTAB PO SCH (08:07)
[2021-04-10] MEDS: PANTOprazole 40 MG TAB PO SCH (08:07)
[2021-04-10] MEDS: ADVANCED PROBIOTIC 1250 MG CAPSULE PO SCH (08:08)
[2021-04-10] MEDS: amLODIPine BESYLATE 5 MG TAB PO SCH (08:09)
[2021-04-10] MEDS: GABAPENTIN 100 MG CAP PO SCH ×3 (08:10→20:41)
[2021-04-10] MEDS: risperiDONE 0.5 MG TABLET PO SCH ×2 (08:11→20:41)
[2021-04-10] MEDS: SUMAtriptan succinate 25 MG TAB PO PRN (10:14)
[2021-04-10] MEDS: POTASSIUM CHLORIDE 10 MEQ TABCR PO SCH ×2 (10:14→22:22)
[2021-04-10] MEDS: FERROUS SULFATE 325 MG TAB PO SCH (10:16)
--- NOTE | 2021-04-10 16:48 | Hospitalist Progress Note ---
Date of Service April 10, 2021 Assessment & Plan (1) Pneumonia: (2) Catheter-associated urinary tract infection: Plan: This is a 76-year-old female with PMH Parkinson's, Ymskocu-Dpacv-Bhavz disease, HTN, HLD, history of TIA, CKD stage III, chronic Romeo catheter with recurrent UTIs, wheelchair-bound, multiple lower extremity surgeries, who presented to the ED for evaluation of shortness of breath and wheezing. Being managed for the following: Delirium, Paranoia, hallucinations -Pt w/ hx of paranoid ideations related to cognitive decline now with superimposed delirium -Patient became more confused and was yelling and calling 911 on her cell phone and her family -Psychiatry consulted, stable on risperdal 0.5mg bid, ambien started -appreciate psych recs -this has been stable and no more recurrence Chest pain - resolved -Developed chest pain on 03/27 and was transferred to [facility] with telemetry -Troponin negative x2, EKG nonischemic -Reproducible on exam, likely musculoskeletal in nature -Another episode of chest pain on 04/06 evening, EKG and troponin unremarkable Chronic Diastolic CHF pt with episode of decompensated CHF while hospitalized, now resolved -Echo 03/21/2021 -EF 55-60%, grade 2 diastolic dysfunction 03/14 CXR: Mild pulmonary edema. Possible small left pleural effusion 03/14 IV dose of Lasix 03/28 IV Lasix x 1 dose Appears euvolemic today TIA Patient was a stroke alert overnight (03/20-03/21) Likely TIA - involving the right hemisphere with left facial droop yet on imaging has no evidence for a completed event Head and neck CTA, brain MRI unremarkable for acute findings Neurology consulted, input appreciated Do not have sufficient evidence to recommend adding Plavix to her aspirin but will observe her for recurrent events and if they do enlarge then certainly would add another antiplatelet agent Recommend to continue aspirin 81 mg daily, and 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 Fields Pneumonia Has bibasilar infiltration more on the right could be secondary to aspiration versus HCAP Initial lactic acid 3.2---> 1.9, no other signs of sepsis. MRSA screen negative Zosyn 03/12 --> change to Augmentin 03/14 -->Levaquin 03/15 d/t E.cloacae and E. coli in UCx --> stop date 03/19 Blood cultures negative Has had speech evaluation Recommended aspiration precaution during feeding - If the condition persist will need to have a formal barium swallow No fever and no chills CAUTI: Chronic indwelling Romeo catheter History of recurrent UTIs. Patient overdue for follow-up with urology---> Alexandrea BETANCOURT to arrange for outpatient follow-up for management of her chronic Romeo UA was suggestive of infection, 03/12 urine culture Enterobacter cloacae and E. coli Off antibiotics CMT (Oefhghn-Ggkpz-Qneqj disease): S/p multiple lower extremity procedures, most recently s/p left knee closed reduction total knee arthroplasty subluxation on 02/16/2021 - patient is to remain nonweightbearing of the left lower extremity and limited weightbearing on the right lower extremity Abnormal Left ankle XR Patient complaining of multiple joint pain, more on the left leg 03/15 x-ray left ankle: A 1.8 cm linear ossific density posterior to the talus may represent an avulsion fracture from the dorsal calcaneus. Clinical correlation will be essential. Orthopedic consulted for left calcaneal superior posterior avulsion fracture sta tus post fall: High tide walking boot removed, replaced with a dorsiflexion splint with a negative relief under the left heel and lambs wool padding to provide essentially neutral support for neutral dorsiflexion of the left ankle and heel and foot. Orthopedic recommending may use the walking boot for transfers or ambulating and wheelchair as necessary. Follow-up with [place]opedics. [place] [facility] [place] Parkinson disease: Continue carbidopa-levodopa Chronic pain: Continue home regimen DVT prophylaxis: SQ Lovenox Disposition: Medically stable; awaiting placement. Discussed with CM. Possible placement to [facility] in the next day or so. Admission and Anticipated Discharge Date Admission Date: March 12, 2021 Supervising Physician Co-Signing Physician Notes Attending addendum The patient was seen and examined in medical floor She remained stable to be transferred Denies any significant symptoms Lying in bed comfortably Hemodynamically stable Chestfine by lateral basilar crackles HeartS1-S2, regular Abdomenbenign CNSalert and awake and oriented x3. Generally weak Her labs reviewed She remains medically stable with multiple comorbid condition as mentioned in assessment and plan Agree with assessment and plan as outlined above by Tracy Powers Subjective Patient seen and examined. Follow-up for delirium, UTI, pneumonia. Patient resting in bed, no acute distress. Reports chronic bilateral foot pain. No abdominal pain or nausea. Denies chest pain and shortness of breath. Physical Exam Constitutional: + ill appearing (Chronically); no acute distress Respiratory: normal respiratory effort; no respiratory distress Auscultation: + diminished lung sounds Cardiovascular: Rate/Rhythm: regular rate and regular rhythm Extremities: + pedal edema (Trace) Gastrointestinal (Abdomen): Percussion/Palpation: abdomen soft; abdomen nontender Musculoskeletal: Left hand contracted, chronic BLE weakness Skin: no rashes, warm and dry Neurologic: no focal motor deficits Psychiatric: Orientation: alert and oriented x 3 Affect: + flat affect Results & Data Results & Data ([facility]) Vital Signs (Past 12 Hours) Vital Signs Temp Pulse Resp BP Pulse Ox 04/10/21 15:17 37.1 C 80 14 153/76 H 97 04/10/21 07:17 36.4 C L 67 16 120/64 95
[2021-04-10] MEDS: ENOXAPARIN INJ 40 MG/0.4 ML SYR SQ SCH (20:40)
[2021-04-10] MEDS: EZETIMIBE 10 MG TABLET PO SCH (20:41)
[2021-04-10] MEDS: lamoTRIgine 25 MG TAB PO SCH (20:41)
[2021-04-10] MEDS: ZOLPIDEM TARTRATE 5 MG TAB PO SCH (22:10)
[2021-04-11] MEDS: DICLOFENAC SOD 1% GEL 100 GM TUBE EXT SCH ×5 (00:13→23:06)
[2021-04-11] MEDS: ACETAMINOPHEN 325 MG TAB PO PRN ×3 (06:28→23:05)
[2021-04-11] MEDS: traMADol HCL 50 MG TABLET PO PRN (07:42)
[2021-04-11] MEDS: POTASSIUM CHLORIDE 10 MEQ TABCR PO SCH ×2 (07:44→20:44)
[2021-04-11] MEDS: ASPIRIN 81 MG ECTAB PO SCH (07:45)
[2021-04-11] MEDS: LACTASE 3000 UNIT TAB PO SCH ×3 (07:45→16:57)
[2021-04-11] MEDS: CARBIDOPA/LEVODOPA 25/100MG TAB PO SCH ×3 (07:46→21:02)
[2021-04-11] MEDS: PANTOprazole 40 MG TAB PO SCH (07:46)
[2021-04-11] MEDS: risperiDONE 0.5 MG TABLET PO SCH ×2 (07:47→20:43)
[2021-04-11] MEDS: amLODIPine BESYLATE 5 MG TAB PO SCH (07:48)
[2021-04-11] MEDS: ADVANCED PROBIOTIC 1250 MG CAPSULE PO SCH (07:48)
[2021-04-11] MEDS: GABAPENTIN 100 MG CAP PO SCH ×3 (07:49→20:42)
[2021-04-11] MEDS: LIDOCAINE 5% 1 PATCH TD SCH (07:51)
[2021-04-11] MEDS: FERROUS SULFATE 325 MG TAB PO SCH (12:21)
[2021-04-11] MEDS: SUMAtriptan succinate 25 MG TAB PO PRN (13:14)
--- NOTE | 2021-04-11 16:29 | Hospitalist Progress Note ---
Date of Service April 11, 2021 Assessment & Plan (1) Pneumonia: (2) Catheter-associated urinary tract infection: Plan: This is a 76-year-old female with PMH Parkinson's, Edzcexp-Zczxp-Snjsm disease, HTN, HLD, history of TIA, CKD stage III, chronic Romeo catheter with recurrent UTIs, wheelchair-bound, multiple lower extremity surgeries, who presented to the ED for evaluation of shortness of breath and wheezing. Being managed for the following: Delirium, Paranoia, hallucinations -Pt w/ hx of paranoid ideations related to cognitive decline now with superimposed delirium -Patient became more confused and was yelling and calling 911 on her cell phone and her family -Psychiatry consulted, stable on risperdal 0.5mg bid, ambien started -appreciate psych recs -this has been stable and no more recurrence Chest pain - resolved -Developed chest pain on 03/27 and was transferred to [facility] with telemetry -Troponin negative x2, EKG nonischemic -Reproducible on exam, likely musculoskeletal in nature -Another episode of chest pain on 04/06 evening, EKG and troponin unremarkable Chronic Diastolic CHF pt with episode of decompensated CHF while hospitalized, now resolved -Echo 03/21/2021 -EF 55-60%, grade 2 diastolic dysfunction 03/14 CXR: Mild pulmonary edema. Possible small left pleural effusion 03/14 IV dose of Lasix 03/28 IV Lasix x 1 dose Appears euvolemic today TIA Patient was a stroke alert overnight (03/20-03/21) Likely TIA - involving the right hemisphere with left facial droop yet on imaging has no evidence for a completed event Head and neck CTA, brain MRI unremarkable for acute findings Neurology consulted, input appreciated Do not have sufficient evidence to recommend adding Plavix to her aspirin but will observe her for recurrent events and if they do enlarge then certainly would add another antiplatelet agent Recommend to continue aspirin 81 mg daily, and 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 Fields Pneumonia Has bibasilar infiltration more on the right could be secondary to aspiration versus HCAP Initial lactic acid 3.2---> 1.9, no other signs of sepsis. MRSA screen negative Zosyn 03/12 --> change to Augmentin 03/14 -->Levaquin 03/15 d/t E.cloacae and E. coli in UCx --> stop date 03/19 Blood cultures negative Has had speech evaluation Recommended aspiration precaution during feeding - If the condition persist will need to have a formal barium swallow No fever and no chills CAUTI: Chronic indwelling Romeo catheter History of recurrent UTIs. Patient overdue for follow-up with urology---> Alexandrea BETANCOURT to arrange for outpatient follow-up for management of her chronic Romeo UA was suggestive of infection, 03/12 urine culture Enterobacter cloacae and E. coli Off antibiotics CMT (Ebhdoxr-Yrolh-Zgpfs disease): S/p multiple lower extremity procedures, most recently s/p left knee closed reduction total knee arthroplasty subluxation on 02/16/2021 - patient is to remain nonweightbearing of the left lower extremity and limited weightbearing on the right lower extremity Abnormal Left ankle XR Patient complaining of multiple joint pain, more on the left leg 03/15 x-ray left ankle: A 1.8 cm linear ossific density posterior to the talus may represent an avulsion fracture from the dorsal calcaneus. Clinical correlation will be essential. Orthopedic consulted for left calcaneal superior posterior avulsion fracture sta tus post fall: High tide walking boot removed, replaced with a dorsiflexion splint with a negative relief under the left heel and lambs wool padding to provide essentially neutral support for neutral dorsiflexion of the left ankle and heel and foot. Orthopedic recommending may use the walking boot for transfers or ambulating and wheelchair as necessary. Follow-up with outpatient orthopedics. Dr. Crain, [facility] [place] Parkinson disease: Continue carbidopa-levodopa Chronic pain: Continue home regimen DVT prophylaxis: SQ Lovenox Disposition: Medically stable; awaiting placement. Case management following. Admission and Anticipated Discharge Date Admission Date: March 12, 2021 Supervising Physician Co-Signing Physician Notes Attending addendum: The patient was seen and examined in medical unit She has been stable and denies any symptoms as of today On examination Lying in bed comfortably Hemodynamically stable Chest-minimal crackles at the base more on the left Heart-S1-S2, regular Abdomen-benign Extremities-trace edema bilaterally more on the left than the right Her labs and imaging studies remains unremarkable She remains medically stable and agree with assessment and plan as outlined above by Tracy Powers Subjective Patient seen and examined. Follow-up for delirium, UTI, pneumonia. Patient resting in bed, no acute distress. Patient offers no complaints today. Review of Systems Review of Systems: ROS per HPI, all other systems reviewed and negative Physical Exam Constitutional: WD/WN, vitals as above no acute distress Respiratory: normal respiratory effort, lungs clear to auscultation Cardiovascular: Rate/Rhythm: regular rate and regular rhythm Vessels: normal peripheral pulses Extremities: no edema Gastrointestinal (Abdomen): Percussion/Palpation: abdomen soft; abdomen nontender Musculoskeletal: Left hand contracted, chronic bilateral lower extremity weakness, cam boot in place to LLE Skin: no rashes, warm and dry Neurologic: no focal motor deficits Psychiatric: Orientation: alert and oriented x 3 Affect: + flat affect Results & Data Results & Data ([facility] [place]) Vital Signs (Past 12 Hours) Vital Signs Temp Pulse Resp BP Pulse Ox 04/11/21 16:05 37.2 C 70 16 138/77 97 04/11/21 07:16 36.6 C 58 L 16 123/70 98
[2021-04-11] MEDS: ENOXAPARIN INJ 40 MG/0.4 ML SYR SQ SCH (20:41)
[2021-04-11] MEDS: EZETIMIBE 10 MG TABLET PO SCH (21:02)
[2021-04-11] MEDS: ZOLPIDEM TARTRATE 5 MG TAB PO SCH (21:02)
[2021-04-11] MEDS: lamoTRIgine 25 MG TAB PO SCH (21:03)
[2021-04-11] MEDS: PROMETHAZINE HCL 12.5 MG in SODIUM CHLORIDE 0.9% 50 ML IV PRN (21:03)
[2021-04-12] MEDS: ACETAMINOPHEN 325 MG TAB PO PRN (05:53)
[2021-04-12] MEDS: DICLOFENAC SOD 1% GEL 100 GM TUBE EXT SCH ×4 (05:54→21:37)
[2021-04-12] MEDS: LACTASE 3000 UNIT TAB PO SCH ×3 (08:33→17:12)
[2021-04-12] MEDS: GABAPENTIN 100 MG CAP PO SCH ×3 (09:43→21:30)
[2021-04-12] MEDS: PANTOprazole 40 MG TAB PO SCH (09:43)
[2021-04-12] MEDS: CARBIDOPA/LEVODOPA 25/100MG TAB PO SCH ×3 (09:43→21:30)
[2021-04-12] MEDS: amLODIPine BESYLATE 5 MG TAB PO SCH (09:43)
[2021-04-12] MEDS: ADVANCED PROBIOTIC 1250 MG CAPSULE PO SCH (09:43)
[2021-04-12] MEDS: ASPIRIN 81 MG ECTAB PO SCH (09:43)
[2021-04-12] MEDS: LIDOCAINE 5% 1 PATCH TD SCH (09:44)
[2021-04-12] MEDS: POTASSIUM CHLORIDE 10 MEQ TABCR PO SCH ×2 (09:44→21:29)
[2021-04-12] MEDS: risperiDONE 0.5 MG TABLET PO SCH ×2 (09:44→21:29)
--- NOTE | 2021-04-12 10:28 | Hospitalist Progress Note ---
Date of Service April 12, 2021 Assessment & Plan (1) Pneumonia: (2) Catheter-associated urinary tract infection: Plan: This is a 76-year-old female with PMH Parkinson's, Qvedxbd-Ahbtj-Ldvak disease, HTN, HLD, history of TIA, CKD stage III, chronic Romeo catheter with recurrent UTIs, wheelchair-bound, multiple lower extremity surgeries, who presented to the ED for evaluation of shortness of breath and wheezing. Being managed for the following: Delirium, Paranoia, hallucinations -Pt w/ hx of paranoid ideations related to cognitive decline now with superimposed delirium -Patient became more confused and was yelling and calling 911 on her cell phone and her family -Psychiatry consulted, stable on risperdal 0.5mg bid, ambien started -appreciate psych recs -this has been stable and no more recurrence -today she appears to be concerned about others watching her text on her phone, she is irritated by this. She is afebrile, monitor closely, check a.m. labs Chest pain - resolved -Developed chest pain on 03/27 and was transferred to [facility] [place] with telemetry -Troponin negative x2, EKG nonischemic -Reproducible on exam, likely musculoskeletal in nature -Another episode of chest pain on 04/06 evening, EKG and troponin unremarkable Chronic Diastolic CHF pt with episode of decompensated CHF while hospitalized, now resolved -Echo 03/21/2021 -EF 55-60%, grade 2 diastolic dysfunction 03/14 CXR: Mild pulmonary edema. Possible small left pleural effusion 03/14 IV dose of Lasix 03/28 IV Lasix x 1 dose euvolemic today, daily weights pt with some weight loss, weight 81kg TIA Patient was a stroke alert overnight (03/20-03/21) Likely TIA - involving the right hemisphere with left facial droop yet on imaging has no evidence for a completed event Head and neck CTA, brain MRI unremarkable for acute findings Neurology consulted, input appreciated Do not have sufficient evidence to recommend adding Plavix to her aspirin but will observe her for recurrent events and if they do enlarge then certainly would add another antiplatelet agent Recommend to continue aspirin 81 mg daily, and 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 Fields Pneumonia Has bibasilar infiltration more on the right could be secondary to aspiration versus HCAP Initial lactic acid 3.2---> 1.9, no other signs of sepsis. MRSA screen negative Zosyn 03/12 --> change to Augmentin 03/14 -->Levaquin 03/15 d/t E.cloacae and E. coli in UCx --> stop date 03/19 Blood cultures negative Has had speech evaluation Recommended aspiration precaution during feeding - If the condition persist will need to have a formal barium swallow No fever and no chills CAUTI: Chronic indwelling Romeo catheter History of recurrent UTIs. Patient overdue for follow-up with urology---> Alexandrea BETANCOURT to arrange for outpatient follow-up for management of her chronic Romeo UA was suggestive of infection, 03/12 urine culture Enterobacter cloacae and E. coli Off antibiotics CMT (Ccpcizc-Pepwk-Ydvzt disease): S/p multiple lower extremity procedures, most recently s/p left knee closed reduction total knee arthroplasty subluxation on 02/16/2021 - patient is to remain nonweightbearing of the left lower extremity and limited weightbearing on the right lower extremity Abnormal Left ankle XR Patient complaining of multiple joint pain, more on the left leg 03/15 x-ray left ankle: A 1.8 cm linear ossific density posterior to the talus may represent an avulsion fracture from the dorsal calcaneus. Clinical correlation will be essential. Orthopedic consulted for left calcaneal superior posterior avulsion fracture st atus post fall: High tide walking boot removed, replaced with a dorsiflexion splint with a negative relief under the left heel and lambs wool padding to provide essentially neutral support for neutral dorsiflexion of the left ankle and heel and foot. Orthopedic recommending may use the walking boot for transfers or ambulating and wheelchair as necessary. Follow-up with outpatient [place]opedics. [place] [facility] [place] Parkinson disease: Continue carbidopa-levodopa Chronic pain: Continue home regimen DVT prophylaxis: SQ Lovenox Disposition: Medically stable; awaiting placement. Case management following. Admission and Anticipated Discharge Date Admission Date: March 12, 2021 Supervising Physician Co-Signing Physician Notes Attending addendum: The patient was seen and examined in medical floor She remains stable Complains to have some nausea without any vomiting and her abdominal distention or pain On examination No apparent distress at rest Hemodynamically stable Chest-minimal crackles at the left base Heart-S1-S2, regular Abdomen-benign Extremities-has Lrptbzd-Onwad-Raloc disease with lower extremities deformity, more on the left than right Her labs, medications and imaging studies reviewed She remains medically stable and is awaiting transfer to a facility Agree with assessment and plan as outlined above by Estrella Powers Discussed with the [id number] Subjective Patient was seen and examined in room 381-1. Follow-up delirium, UTI and pneumonia. She overall feels she is not doing well this morning. Complains of staff watching her, "text on her phone." She appears to be paranoid in regards to her phone. She currently complains of generalized pain. Denies fever, chills, sweats, lightheadedness, dizziness, chest pain, shortness of breath, nausea, vomiting, abdominal pain. Romeo catheter remains in place. Review of Systems Review of Systems: All systems reviewed & are unremarkable except as noted in HPI & below Physical Exam Physical Exam: Gen: WD/WN, F, chronically ill appearing, NAD, A&O x3 basics HEENT: Normocephalic, atraumatic, conjunctivae moist, sclerae anicteric, mucous membranes moist. Lung: Clear to Auscultation bilaterally, no wheezes/rales/rhonchi Heart: Regular rate, regular rhythm, no murmurs, rubs, or gallops Abdomen: Soft, NT, ND +BS x 4 Extremities: LLE brace in place Skin: Warm, no rash, negative turgor. : +Romeo cath Results & Data Results & Data ([facility]) Vital Signs (Past 12 Hours) Vital Signs Temp Pulse Resp BP Pulse Ox 04/12/21 08:00 36.2 C L 83 18 130/73 96 Medications Administered Current Inpatient Medications Acetaminophen (Acetaminophen 325 Mg Tab) 650 mg PO Q4H PRN PRN Reason: pain/fever Stop: 05/11/21 16:59 Last Admin: 04/12/21 05:53 Dose: 650 mg Documented by: Albuterol (Albuterol 0.5% Neb Soln 2.5 Mg/0.5 Ml Vial) 2.5 mg NEB Q6R PRN PRN Reason: wheezing, SOB Stop: 05/11/21 17:17 Last Admin: 04/01/21 21:09 Dose: 2.5 mg Documented by: Albuterol (Albut/Ipratrop 3mg/0.5mg Neb 3 Ml Vial) 3 ml NEB Q4R PRN PRN Reason: Shortness Of Breath Or Wheezing Stop: 05/11/21 10:48 Last Admin: 03/28/21 11:17 Dose: 3 ml Documented by: Amlodipine Besylate (Amlodipine Besylate 5 Mg Tab) 5 mg PO QAM [facility] Stop: 05/11/21 12:14 Last Admin: 04/12/21 09:43 Dose: 5 mg Documented by: Aspirin (Aspirin 81 Mg Ectab) 81 mg PO DAILY [facility] Stop: 05/11/21 08:59 Last Admin: 04/12/21 09:43 Dose: 81 mg Documented by: Carbidopa/Levodopa (Carbidopa/Levodopa 25/100mg Tab) 1 tab PO TID [facility] Stop: 05/11/21 20:59 Last Admin: 04/12/21 09:43 Dose: 1 tab Documented by: Diclofenac Sodium (Diclofenac Sod 1% Gel 100 Gm Tube) 2 gm EXT Q6 [facility] Stop: 05/11/21 15:29 Last Admin: 04/12/21 05:54 Dose: 2 gm Documented by: Docusate Sodium (Docusate Sodium 100 Mg Cap) 100 mg PO DAILY PRN PRN Reason: Constipation Stop: 05/11/21 16:59 Last Admin: 04/06/21 02:36 Dose: 100 mg Documented by: Ezetimibe (Ezetimibe 10 Mg Tablet) 10 mg PO HS [facility] Stop: 05/11/21 20:59 Last Admin: 04/11/21 21:02 Dose: 10 mg Documented by: Enoxaparin Sodium (Enoxaparin Inj 40 Mg/0.4 Ml Syr) 40 mg SQ Q24H [facility] Stop: 05/11/21 16:59 Last Admin: 04/11/21 20:41 Dose: 40 mg Documented by: Ferrous Sulfate (Ferrous Sulfate 325 Mg Tab) 325 mg PO DAILY@1100 [facility] Stop: 05/11/21 10:59 Last Admin: 04/11/21 12:21 Dose: 325 mg Documented by: Gabapentin (Gabapentin 100 Mg Cap) 200 mg PO TID [facility] Stop: 05/11/21 20:59 Last Admin: 04/12/21 09:43 Dose: 200 mg Documented by: Haloperidol Lactate (Haloperidol Lactate 5 Mg/Ml 1 Ml Vial) 1 mg IV Q6 PRN PRN Reason: Anxiety/Agitation Stop: 04/23/21 12:15 Promethazine HCl 12.5 mg/ (Sodium Chloride) 50.5 mls @ 202 mls/hr IV Q6H PRN PRN Reason: Nausea And Vomiting Stop: 05/11/21 20:07 Last Infusion: 04/11/21 21:20 Dose: Infused Documented by: Lactase (Lactase 3000 Unit Tab) 3,000 units PO AC [facility] Stop: 05/11/21 16:59 Last Admin: 04/12/21 08:33 Dose: 3,000 units Documented by: Lactobacillus Acidoph/Casei/Rhamnos (Advanced Probiotic 1250 Mg Capsule) 2 cap PO DAILY [facility] Stop: 05/11/21 14:29 Last Admin: 04/12/21 09:43 Dose: 2 cap Documented by: Lamotrigine (Lamotrigine 25 Mg Tab) 75 mg PO [facility] Stop: 05/11/21 20:59 Last Admin: 04/11/21 21:03 Dose: 75 mg Documented by: Lidocaine (Lidocaine 5% 1 Patch) 1 patch TD DAILY [facility] Stop: 05/11/21 08:59 Last Admin: 04/12/21 09:44 Dose: 1 patch Documented by: Miscellaneous (Remove Lidoderm Patch) 1 ea N/A [facility] Stop: 05/11/21 20:59 Last Admin: 04/11/21 20:43 Dose: 1 ea Documented by: Pantoprazole Sodium (Pantoprazole 40 Mg Tab) 40 mg PO DAILY [facility] Stop: 05/11/21 08:59 Last Admin: 04/12/21 09:43 Dose: 40 mg Documented by: Polyethylene Glycol (Polyethylene (Miralax) 17 Gm Pack) 17 gm PO DAILY PRN PRN Reason: Constipation Stop: 05/11/21 16:59 Last Admin: 03/18/21 08:07 Dose: 17 gm Documented by: Potassium Chloride (Potassium Chloride 10 Meq Tabcr) 10 meq PO BID [facility] Stop: 05/11/21 20:59 Last Admin: 04/12/21 09:44 Dose: 10 meq Documented by: Risperidone (Risperidone 0.5 Mg Tablet) 0.5 mg PO BID [facility] Stop: 05/11/21 20:59 Last Admin: 04/12/21 09:44 Dose: 0.5 mg Documented by: Sumatriptan Succinate (Sumatriptan Succinate 25 Mg Tab) 25 mg PO DAILY PRN PRN Reason: Migraine Headache Stop: 05/08/21 10:18 Last Admin: 04/11/21 13:14 Dose: 25 mg Documented by: Tramadol HCl (Tramadol Hcl 50 Mg Tablet) 50 mg PO BID PRN PRN Reason: Pain Stop: 05/11/21 16:59 Last Admin: 04/11/21 07:42 Dose: 50 mg Documented by: Zolpidem Tartrate (Zolpidem Tartrate 5 Mg Tab) 5 mg PO HS [facility] Stop: 05/02/21 20:59 Last Admin: 04/11/21 21:02 Dose: 5 mg Documented by:
[2021-04-12] MEDS: FERROUS SULFATE 325 MG TAB PO SCH (13:57)
[2021-04-12] MEDS: traMADol HCL 50 MG TABLET PO PRN (15:45)
[2021-04-12] MEDS: PROMETHAZINE HCL 12.5 MG in SODIUM CHLORIDE 0.9% 50 ML IV PRN (17:12)
[2021-04-12] MEDS: lamoTRIgine 25 MG TAB PO SCH (21:28)
[2021-04-12] MEDS: EZETIMIBE 10 MG TABLET PO SCH (21:28)
[2021-04-12] MEDS: ENOXAPARIN INJ 40 MG/0.4 ML SYR SQ SCH (21:29)
[2021-04-12] MEDS: ZOLPIDEM TARTRATE 5 MG TAB PO SCH (21:33)
[2021-04-13] MEDS: DICLOFENAC SOD 1% GEL 100 GM TUBE EXT SCH ×3 (05:42→17:32)
[2021-04-13 07:44] LABS: Basophils # (auto) 0.03 K/uL (0-0.2); Basophils % (auto) 0.4 %; Eosinophils # (auto) 0.26 K/uL (0-0.5); Eosinophils % (auto) 3.5 %; Hematocrit (blood only) 35.4 % (37-47); Hemoglobin 11.4 g/dL (12.0-16.0); Immature Granulocytes # (auto) 0.02 K/uL (0.00-0.02); Immature Granulocytes % (auto) 0.3 %; Lymphocytes # (auto) 2.16 K/uL (1.2-3.4); Lymphocytes % (auto) 28.8 %; Mean Corpuscular Hemoglobin 27.9 pg (25-34); Mean Corpuscular Hgb Conc 32.2 g/dL (32-36); Mean Corpuscular Volume 86.6 fL (80-100); Mean Platelet Volume 9.5 fL (7.4-10.4); Monocytes # (auto) 0.77 K/uL (0.11-0.59); Monocytes % (auto) 10.3 %; Neutrophils # (auto) 4.26 K/uL (1.4-6.5); Neutrophils % (auto) 56.7 %; Platelet Count 235 K/uL (130-400); RDW Coefficient of Variation 14.2 % (11.5-14.5); Red Blood Count 4.09 M/uL (4.2-5.4)
[2021-04-13 07:59] LABS: BUN Creatinine Ratio 21.7 (10-20); Calcium 9.1 mg/dl (8.5-10.1); Creatinine Clr Calc Pharmacy 102.4 ml/min; Est GFR (Non-African American) 96.6 ml/min; Potassium 3.7 mmol/L (3.5-5.1)
[2021-04-13] MEDS: LACTASE 3000 UNIT TAB PO SCH ×3 (08:30→17:32)
[2021-04-13] MEDS: ASPIRIN 81 MG ECTAB PO SCH (08:31)
[2021-04-13] MEDS: amLODIPine BESYLATE 5 MG TAB PO SCH (08:31)
[2021-04-13] MEDS: CARBIDOPA/LEVODOPA 25/100MG TAB PO SCH ×3 (08:32→20:05)
[2021-04-13] MEDS: GABAPENTIN 100 MG CAP PO SCH ×3 (08:33→20:06)
--- NOTE | 2021-04-13 11:33 | Hospitalist Progress Note ---
Date of Service April 13, 2021 Assessment & Plan (1) Pneumonia: (2) Catheter-associated urinary tract infection: Plan: This is a 76-year-old female with PMH Parkinson's, Nzdrfcm-Dqtdd-Hkydj disease, HTN, HLD, history of TIA, CKD stage III, chronic Romeo catheter with recurrent UTIs, wheelchair-bound, multiple lower extremity surgeries, who presented to the ED for evaluation of shortness of breath and wheezing. Being managed for the following: Delirium, Paranoia, hallucinations -Pt w/ hx of paranoid ideations related to cognitive decline now with superimposed delirium -Patient became more confused and was yelling and calling 911 on her cell phone and her family -Psychiatry consulted, stable on risperdal 0.5mg bid, ambien started -appreciate psych recs -this has been stable and no more recurrence Chest pain - resolved -Developed chest pain on 03/27 and was transferred to [facility] with telemetry -Troponin negative x2, EKG nonischemic -Reproducible on exam, likely musculoskeletal in nature -Another episode of chest pain on 04/06 evening, EKG and troponin unremarkable Chronic Diastolic CHF pt with episode of decompensated CHF while hospitalized, now resolved -Echo 03/21/2021 -EF 55-60%, grade 2 diastolic dysfunction 03/14 CXR: Mild pulmonary edema. Possible small left pleural effusion 03/14 IV dose of Lasix 03/28 IV Lasix x 1 dose euvolemic today, daily weights pt with some weight loss, weight 81kg TIA Patient was a stroke alert overnight (03/20-03/21) Likely TIA - involving the right hemisphere with left facial droop yet on imaging has no evidence for a completed event Head and neck CTA, brain MRI unremarkable for acute findings Neurology consulted, input appreciated Do not have sufficient evidence to recommend adding Plavix to her aspirin but will observe her for recurrent events and if they do enlarge then certainly would add another antiplatelet agent Recommend to continue aspirin 81 mg daily, and 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 Fields Pneumonia Has bibasilar infiltration more on the right could be secondary to aspiration versus HCAP Initial lactic acid 3.2---> 1.9, no other signs of sepsis. MRSA screen negative Zosyn 03/12 --> change to Augmentin 03/14 -->Levaquin 03/15 d/t E.cloacae and E. coli in UCx --> stop date 03/19 Blood cultures negative Has had speech evaluation Recommended aspiration precaution during feeding - If the condition persist will need to have a formal barium swallow No fever and no chills CAUTI: Chronic indwelling Romeo catheter History of recurrent UTIs. Patient overdue for follow-up with urology---> Alexandrea BETANCOURT to arrange for outpatient follow-up for management of her chronic Romeo UA was suggestive of infection, 03/12 urine culture Enterobacter cloacae and E. coli Off antibiotics CMT (Wlilbyd-Qceif-Uztge disease): S/p multiple lower extremity procedures, most recently s/p left knee closed reduction total knee arthroplasty subluxation on 02/16/2021 - patient is to remain nonweightbearing of the left lower extremity and limited weightbearing on the right lower extremity Abnormal Left ankle XR Patient complaining of multiple joint pain, more on the left leg 03/15 x-ray left ankle: A 1.8 cm linear ossific density posterior to the talus may represent an avulsion fracture from the dorsal calcaneus. Clinical correlation will be essential. Orthopedic consulted for left calcaneal superior posterior avulsion fracture status post fall: High tide walking boot removed, replaced with a dorsiflexion splint with a negative relief under the left heel and lambs wool padding to pr ovide essentially neutral support for neutral dorsiflexion of the left ankle and heel and foot. Orthopedic recommending may use the walking boot for transfers or ambulating and wheelchair as necessary. Follow-up with outpatient orthopedics. Dr. Crain, [facility] [place]. Pt requesting repeat xray L ankle and also requesting R ankle due to pain - ordered Parkinson disease: Continue carbidopa-levodopa Chronic pain: Continue home regimen DVT prophylaxis: SQ Lovenox Disposition: Medically stable; awaiting placement. Case management following. Admission and Anticipated Discharge Date Admission Date: March 12, 2021 Supervising Physician Co-Signing Physician Notes I have seen and examined the patient and have discussed the case with the prov ider above. I agree with the assessment and plan as stated. 76 yo F with prolonged hospitalization, now reporting chronic left foot and ankle pain. Requests pain medications. She is oriented and is not in acute distress. Denies SOB or chest pain or other issues. Physical exam reveals stable vitals signs, oxygenating well on room air. WNWD female in NAD, with some difficulty sitting up independently in bed. S1/2 heard on cardiac auscultation, clear lungs to auscultation throughout. Abdomen with significant bruising in the lower half of the abdomen. ND, NT, protuberant. No peripheral edema. Left knee in a brace and Left ankle was wrapped. Significant ulnar deviation of hands noted. Agree with plan as listed above. Awaiting placement. DO Vitaliy Ceballos Patient was seen and examined in room 381-1. Follow-up delirium, UTI and pneumonia. She is requesting to know how her fracture in L foot is doing. She also c/o of pain to R ankle and is requesting an xray. Overall good appetite. Continues with chronic foot/ankle pain due to CMT. Denies f/c/s, chest pain, sob, n/v/d. +BM Review of Systems Review of Systems: All systems reviewed & are unremarkable except as noted in HPI & below Physical Exam Physical Exam: Gen: WD/WN, F, chronically ill appearing, NAD, A&O x3 basics HEENT: Normocephalic, atraumatic, conjunctivae moist, sclerae anicteric, mucous membranes moist. Lung: Clear to Auscultation bilaterally, no wheezes/rales/rhonchi Heart: Regular rate, regular rhythm, no murmurs, rubs, or gallops Abdomen: Soft, NT, ND +BS x 4 Extremities: LLE brace in place Skin: Warm, no rash, negative turgor. : +Romeo cath Results & Data Results & Data ([facility]) Vital Signs (Past 12 Hours) Vital Signs Temp Pulse Resp BP Pulse Ox 04/13/21 07:42 36.7 C 55 L 14 120/70 96 04/13/21 07:08 36.7 C 55 L 14 120/70 96 Laboratory Results Short CBC 04/13/21 Range/Units 07:07 WBC 7.50 (4.8-10.8) K/uL Hgb 11.4 L (12.0-16.0) g/dL Hct 35.4 L (37-47) % Plt Count 235 (130-400) K/uL [facility] 04/13/21 07:07 Sodium 138 Potassium 3.7 Chloride 105 Carbon Dioxide 25 BUN 10 Creatinine 0.47 L Glucose 78 Calcium 9.1 Medications Administered Current Inpatient Medications Acetaminophen (Acetaminophen 325 Mg Tab) 650 mg PO Q4H PRN PRN Reason: pain/fever Stop: 05/11/21 16:59 Last Admin: 04/12/21 05:53 Dose: 650 mg Documented by: Albuterol (Albuterol 0.5% Neb Soln 2.5 Mg/0.5 Ml Vial) 2.5 mg NEB Q6R PRN PRN Reason: wheezing, SOB Stop: 05/11/21 17:17 Last Admin: 04/01/21 21:09 Dose: 2.5 mg Documented by: Albuterol (Albut/Ipratrop 3mg/0.5mg Neb 3 Ml Vial) 3 ml NEB Q4R PRN PRN Reason: Shortness Of Breath Or Wheezing Stop: 05/11/21 10:48 Last Admin: 03/28/21 11:17 Dose: 3 ml Documented by: Amlodipine Besylate (Amlodipine Besylate 5 Mg Tab) 5 mg PO QAM [facility] Stop: 05/11/21 12:14 Last Admin: 04/13/21 08:31 Dose: 5 mg Documented by: Aspirin (Aspirin 81 Mg Ectab) 81 mg PO DAILY [facility] Stop: 05/11/21 08:59 Last Admin: 04/13/21 08:31 Dose: 81 mg Documented by: Carbidopa/Levodopa (Carbidopa/Levodopa 25/100mg Tab) 1 tab PO TID [facility] Stop: 05/11/21 20:59 Last Admin: 04/13/21 08:32 Dose: 1 tab Documented by: Diclofenac Sodium (Diclofenac Sod 1% Gel 100 Gm Tube) 2 gm EXT Q6 [facility] Stop: 05/11/21 15:29 Last Admin: 04/13/21 05:42 Dose: 2 gm Documented by: Docusate Sodium (Docusate Sodium 100 Mg Cap) 100 mg PO DAILY PRN PRN Reason: Constipation Stop: 05/11/21 16:59 Last Admin: 04/06/21 02:36 Dose: 100 mg Documented by: Ezetimibe (Ezetimibe 10 Mg Tablet) 10 mg PO HS [facility] Stop: 05/11/21 20:59 Last Admin: 04/12/21 21:28 Dose: 10 mg Documented by: Enoxaparin Sodium (Enoxaparin Inj 40 Mg/0.4 Ml Syr) 40 mg SQ Q24H [facility] Stop: 05/11/21 16:59 Last Admin: 04/12/21 21:29 Dose: 40 mg Documented by: Ferrous Sulfate (Ferrous Sulfate 325 Mg Tab) 325 mg PO DAILY@1100 [facility] Stop: 05/11/21 10:59 Last Admin: 04/12/21 13:57 Dose: 325 mg Documented by: Gabapentin (Gabapentin 100 Mg Cap) 200 mg PO TID [facility] Stop: 05/11/21 20:59 Last Admin: 04/13/21 08:33 Dose: 200 mg Documented by: Haloperidol Lactate (Haloperidol Lactate 5 Mg/Ml 1 Ml Vial) 1 mg IV Q6 PRN PRN Reason: Anxiety/Agitation Stop: 04/23/21 12:15 Promethazine HCl 12.5 mg/ (Sodium Chloride) 50.5 mls @ 202 mls/hr IV Q6H PRN PRN Reason: Nausea And Vomiting Stop: 05/11/21 20:07 Last Infusion: 04/12/21 18:17 Dose: Infused Documented by: Lactase (Lactase 3000 Unit Tab) 3,000 units PO AC [facility] Stop: 05/11/21 16:59 Last Admin: 04/13/21 08:30 Dose: 3,000 units Documented by: Lactobacillus Acidoph/Casei/Rhamnos (Advanced Probiotic 1250 Mg Capsule) 2 cap PO DAILY [facility] Stop: 05/11/21 14:29 Last Admin: 04/12/21 09:43 Dose: 2 cap Documented by: Lamotrigine (Lamotrigine 25 Mg Tab) 75 mg PO [facility] Stop: 05/11/21 20:59 Last Admin: 04/12/21 21:28 Dose: 75 mg Documented by: Lidocaine (Lidocaine 5% 1 Patch) 1 patch TD DAILY [facility] Stop: 05/11/21 08:59 Last Admin: 04/12/21 09:44 Dose: 1 patch Documented by: Miscellaneous (Remove Lidoderm Patch) 1 ea N/A [facility] Stop: 05/11/21 20:59 Last Admin: 04/12/21 21:30 Dose: 1 ea Documented by: Pantoprazole Sodium (Pantoprazole 40 Mg Tab) 40 mg PO DAILY [facility] Stop: 05/11/21 08:59 Last Admin: 04/12/21 09:43 Dose: 40 mg Documented by: Polyethylene Glycol (Polyethylene (Miralax) 17 Gm Pack) 17 gm PO DAILY PRN PRN Reason: Constipation Stop: 05/11/21 16:59 Last Admin: 03/18/21 08:07 Dose: 17 gm Documented by: Potassium Chloride (Potassium Chloride 10 Meq Tabcr) 10 meq PO BID [facility] Stop: 05/11/21 20:59 Last Admin: 04/12/21 21:29 Dose: 10 meq Documented by: Risperidone (Risperidone 0.5 Mg Tablet) 0.5 mg PO BID [facility] Stop: 05/11/21 20:59 Last Admin: 04/12/21 21:29 Dose: 0.5 mg Documented by: Sumatriptan Succinate (Sumatriptan Succinate 25 Mg Tab) 25 mg PO DAILY PRN PRN Reason: Migraine Headache Stop: 05/08/21 10:18 Last Admin: 04/11/21 13:14 Dose: 25 mg Documented by: Tramadol HCl (Tramadol Hcl 50 Mg Tablet) 50 mg PO BID PRN PRN Reason: Pain Stop: 05/11/21 16:59 Last Admin: 04/12/21 15:45 Dose: 50 mg Documented by: Zolpidem Tartrate (Zolpidem Tartrate 5 Mg Tab) 5 mg PO HS [facility] Stop: 05/02/21 20:59 Last Admin: 04/12/21 21:33 Dose: 5 mg Documented by:
[2021-04-13] MEDS: LIDOCAINE 5% 1 PATCH TD SCH (11:44)
[2021-04-13] MEDS: POTASSIUM CHLORIDE 10 MEQ TABCR PO SCH ×2 (11:46→20:07)
[2021-04-13] MEDS: PANTOprazole 40 MG TAB PO SCH (11:46)
[2021-04-13] MEDS: FERROUS SULFATE 325 MG TAB PO SCH (11:47)
[2021-04-13] MEDS: risperiDONE 0.5 MG TABLET PO SCH ×2 (11:47→20:07)
[2021-04-13] MEDS: ADVANCED PROBIOTIC 1250 MG CAPSULE PO SCH (11:49)
--- NOTE | 2021-04-13 13:10 | XRay Report ---
XR ankle RT 2V, XR ankle LT min 3V routine CLINICAL HISTORY: Bilateral ankle pain. COMPARISON STUDY: Left ankle radiograph 03/15/2021. FINDINGS: There are 2 screws within the distal right fibula and a single screw within the right media l malleolus transfixing old, healed fractures. No acute fracture or dislocation within the right ankl e. The bones are osteopenic. Moderate osteoarthritis at the tibiotalar joint demonstrated by joint sp leslie narrowing, mild subchondral sclerosis, and marginal osteophytes. Small bilateral plantar heel spu rs. Soft tissue swelling within the bilateral ankles. There is mild osteoarthritis within the left ti biotalar joint. The left tibia and fibula are intact. No dislocation. No change in the 1.8 cm density at the left posterior ankle. This could be due to an age-indeterminate avulsion fracture at the post erior left calcaneus. Vascular calcifications are noted. IMPRESSION: 1. No change in 1.8 cm ossific density at the posterior left ankle. This could be due to an age-indet erminate avulsion fracture at the posterior calcaneus. 2. No acute fracture or dislocation within the right ankle. 3. 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 4. The bones are osteopenic. 5. Bilateral ankle soft tissue swelling. ACT 112: Negative or not required by law. Electronically signed by: Alfonzo Sparrow M.D. 04/13/2021 1:09 PM
[2021-04-13] MEDS: traMADol HCL 50 MG TABLET PO PRN ×2 (14:53→21:29)
[2021-04-13] MEDS: ACETAMINOPHEN 325 MG TAB PO PRN (19:58)
[2021-04-13] MEDS: ENOXAPARIN INJ 40 MG/0.4 ML SYR SQ SCH (20:05)
[2021-04-13] MEDS: lamoTRIgine 25 MG TAB PO SCH (20:06)
[2021-04-13] MEDS: EZETIMIBE 10 MG TABLET PO SCH (20:06)
[2021-04-13] MEDS: ZOLPIDEM TARTRATE 5 MG TAB PO SCH (21:29)
[2021-04-14] MEDS: DICLOFENAC SOD 1% GEL 100 GM TUBE EXT SCH ×5 (01:17→23:28)
[2021-04-14] MEDS ORDERED: SIMETHICONE 80 MG CHEW PO STA (04:42)
[2021-04-14] MEDS ORDERED: POLYETHYLENE (MIRALAX) 17 GM PACK PO STA (04:43)
[2021-04-14] MEDS: DOCUSATE SODIUM/SENNA 50/8.6MG TAB PO SCH (04:58)
[2021-04-14] MEDS: traMADol HCL 50 MG TABLET PO PRN ×2 (06:02→19:45)
[2021-04-14] MEDS: amLODIPine BESYLATE 5 MG TAB PO SCH (09:07)
[2021-04-14] MEDS: LACTASE 3000 UNIT TAB PO SCH ×3 (09:08→15:49)
[2021-04-14] MEDS: ASPIRIN 81 MG ECTAB PO SCH (09:08)
[2021-04-14] MEDS: PANTOprazole 40 MG TAB PO SCH (09:08)
[2021-04-14] MEDS: ADVANCED PROBIOTIC 1250 MG CAPSULE PO SCH (09:09)
[2021-04-14] MEDS: GABAPENTIN 100 MG CAP PO SCH ×3 (09:09→20:06)
[2021-04-14] MEDS: POTASSIUM CHLORIDE 10 MEQ TABCR PO SCH ×2 (09:10→20:05)
[2021-04-14] MEDS: risperiDONE 0.5 MG TABLET PO SCH ×2 (09:10→19:28)
[2021-04-14] MEDS: CARBIDOPA/LEVODOPA 25/100MG TAB PO SCH ×3 (09:11→20:06)
[2021-04-14] MEDS: LIDOCAINE 5% 1 PATCH TD SCH (09:11)
[2021-04-14] MEDS: FERROUS SULFATE 325 MG TAB PO SCH (12:50)
--- NOTE | 2021-04-14 13:14 | Psychiatric Progress Note ---
Date of Service April 14, 2021 Impression / Recommendations Impression 76 yo female with history of paranoid ideations related to cognitive decline now with superimposed delirium resulting in worsening hallucinations and delusions. Started Risperdal 03/24/21. 04/14/21: waxes/wanes, likely based on mood as tired of being in hospital awaiting placement. 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 Consider Seroquel trial. LM for son's input. Risk Factors Assessment Do You Have Access To A Gun?: No Interval History Identifying Information Mrs. Maxwell is a 76 yo female from [place], admitted on 03/16/21 for pneumonia and UTI. [facility]. Chief Complaint "Yeah that Huber is listening and everywhere". Review of Systems Notes knee pain, fatigue, Subjective Subjective Patient was seen & assessed and interval progress reviewed with son and liaison. Patient continues to have worsening confusion and paranoia in the evenings, ended up calling 911 again, said it was a trick and/or now blaming Huber, a person she believes to be staff who follows here around the hospital and pretends to do certain jobs to have a chance to spy on her. Physical Exam Psychiatric Orientation: alert, oriented x 3 and cooperative Apperance: appropriately groomed Eye Contact: + fair eye contact Speech: normal rate/rhythm/volume of speech Affect: + constricted affect Mood: + anxious mood Thought Process: + circumstantial thought process; + thought process not clear or coherent Thought Content: + paranoid Suicidal Thoughts: denies suicidal thoughts Homicidal Thoughts: denies homicidal thoughts Hallucinations: no auditory hallucinations and no visual hallucinations Cognition: remote memory grossly intact, attention grossly intact and language grossly intact Estimated Intelligence: consistent with education level Insight: + limited insight and + impaired insight Vital Signs (Past 24 Hours) Last Vital Signs Temp 36.8 C 04/14/21 07:32 Pulse 62 04/14/21 07:32 Resp 18 04/14/21 07:32 BP 145/83 H 04/14/21 07:32 Pulse Ox 99 04/14/21 07:32 Results & Data ([facility]) Current Inpatient Medications Current Inpatient Medications: Current Inpatient Medications Acetaminophen (Acetaminophen 325 Mg Tab) 650 mg PO Q4H PRN PRN Reason: pain/fever Stop: 05/11/21 16:59 Last Admin: 04/13/21 19:58 Dose: 650 mg Documented by: Albuterol (Albuterol 0.5% Neb Soln 2.5 Mg/0.5 Ml Vial) 2.5 mg NEB Q6R PRN PRN Reason: wheezing, SOB Stop: 05/11/21 17:17 Last Admin: 04/01/21 21:09 Dose: 2.5 mg Documented by: Albuterol (Albut/Ipratrop 3mg/0.5mg Neb 3 Ml Vial) 3 ml NEB Q4R PRN PRN Reason: Shortness Of Breath Or Wheezing Stop: 05/11/21 10:48 Last Admin: 03/28/21 11:17 Dose: 3 ml Documented by: Amlodipine Besylate (Amlodipine Besylate 5 Mg Tab) 5 mg PO QAM [facility] Stop: 05/11/21 12:14 Last Admin: 04/14/21 09:07 Dose: 5 mg Documented by: Aspirin (Aspirin 81 Mg Ectab) 81 mg PO DAILY [facility] Stop: 05/11/21 08:59 Last Admin: 04/14/21 09:08 Dose: 81 mg Documented by: Carbidopa/Levodopa (Carbidopa/Levodopa 25/100mg Tab) 1 tab PO TID [facility] Stop: 05/11/21 20:59 Last Admin: 04/14/21 12:51 Dose: 1 tab Documented by: Diclofenac Sodium (Diclofenac Sod 1% Gel 100 Gm Tube) 2 gm EXT Q6 [facility] Stop: 05/11/21 15:29 Last Admin: 04/14/21 12:50 Dose: Not Given Documented by: Docusate Sodium (Docusate Sodium 100 Mg Cap) 100 mg PO DAILY PRN PRN Reason: Constipation Stop: 05/11/21 16:59 Last Admin: 04/06/21 02:36 Dose: 100 mg Documented by: Ezetimibe (Ezetimibe 10 Mg Tablet) 10 mg PO HS [facility] Stop: 05/11/21 20:59 Last Admin: 04/13/21 20:06 Dose: 10 mg Documented by: Enoxaparin Sodium (Enoxaparin Inj 40 Mg/0.4 Ml Syr) 40 mg SQ Q24H [facility] Stop: 05/11/21 16:59 Last Admin: 04/13/21 20:05 Dose: 40 mg Documented by: Ferrous Sulfate (Ferrous Sulfate 325 Mg Tab) 325 mg PO DAILY@1100 [facility] Stop: 05/11/21 10:59 Last Admin: 04/14/21 12:50 Dose: 325 mg Documented by: Gabapentin (Gabapentin 100 Mg Cap) 200 mg PO TID [facility] Stop: 05/11/21 20:59 Last Admin: 04/14/21 12:51 Dose: 200 mg Documented by: Haloperidol Lactate (Haloperidol Lactate 5 Mg/Ml 1 Ml Vial) 1 mg IV Q6 PRN PRN Reason: Anxiety/Agitation Stop: 04/23/21 12:15 Promethazine HCl 12.5 mg/ (Sodium Chloride) 50.5 mls @ 202 mls/hr IV Q6H PRN PRN Reason: Nausea And Vomiting Stop: 05/11/21 20:07 Last Infusion: 04/12/21 18:17 Dose: Infused Documented by: Lactase (Lactase 3000 Unit Tab) 3,000 units PO AC [facility] Stop: 05/11/21 16:59 Last Admin: 04/14/21 12:50 Dose: 3,000 units Documented by: Lactobacillus Acidoph/Casei/Rhamnos (Advanced Probiotic 1250 Mg Capsule) 2 cap PO DAILY [facility] Stop: 05/11/21 14:29 Last Admin: 04/14/21 09:09 Dose: 2 cap Documented by: Lamotrigine (Lamotrigine 25 Mg Tab) [address] [facility] Stop: 05/11/21 20:59 Last Admin: 04/13/21 20:06 Dose: 75 mg Documented by: Lidocaine (Lidocaine 5% 1 Patch) 1 patch TD DAILY [facility] Stop: 05/11/21 08:59 Last Admin: 04/14/21 09:11 Dose: 1 patch Documented by: Miscellaneous (Remove Lidoderm Patch) 1 ea N/A [facility] Stop: 05/11/21 20:59 Last Admin: 04/13/21 20:07 Dose: 1 ea Documented by: Pantoprazole Sodium (Pantoprazole 40 Mg Tab) 40 mg PO DAILY [facility] Stop: 05/11/21 08:59 Last Admin: 04/14/21 09:08 Dose: 40 mg Documented by: Polyethylene Glycol (Polyethylene (Miralax) 17 Gm Pack) 17 gm PO DAILY PRN PRN Reason: Constipation Stop: 05/11/21 16:59 Last Admin: 03/18/21 08:07 Dose: 17 gm Documented by: Polyethylene Glycol (Polyethylene (Miralax) 17 Gm Pack) 17 gm PO DAILY PRN PRN Reason: Constipation Stop: 05/14/21 04:42 Potassium Chloride (Potassium Chloride 10 Meq Tabcr) 10 meq PO BID [facility] Stop: 05/11/21 20:59 Last Admin: 04/14/21 09:10 Dose: 10 meq Documented by: Risperidone (Risperidone 0.5 Mg Tablet) 0.5 mg PO BID [facility] Stop: 05/11/21 20:59 Last Admin: 04/14/21 09:10 Dose: 0.5 mg Documented by: Senna/Docusate Sodium (Docusate Sodium/Senna 50/8.6mg Tab) 1 tab PO QAM [facility] Stop: 05/14/21 04:44 Last Admin: 04/14/21 04:58 Dose: 1 tab Documented by: Sumatriptan Succinate (Sumatriptan Succinate 25 Mg Tab) 25 mg PO DAILY PRN PRN Reason: Migraine Headache Stop: 05/08/21 10:18 Last Admin: 04/11/21 13:14 Dose: 25 mg Documented by: Tramadol HCl (Tramadol Hcl 50 Mg Tablet) 50 mg PO BID PRN PRN Reason: Pain Stop: 05/13/21 20:24 Last Admin: 04/14/21 06:02 Dose: 50 mg Documented by: Zolpidem Tartrate (Zolpidem Tartrate 5 Mg Tab) 5 mg PO HS [facility] Stop: 05/02/21 20:59 Last Admin: 04/13/21 21:29 Dose: 5 mg Documented by:
[2021-04-14] MEDS: ACETAMINOPHEN 325 MG TAB PO PRN (15:47)
--- NOTE | 2021-04-14 17:12 | Hospitalist Progress Note ---
Date of Service April 14, 2021 Assessment & Plan (1) Pneumonia: (2) Catheter-associated urinary tract infection: Plan: This is a 76-year-old female with PMH Parkinson's, Ndfblbv-Jtbbr-Yfkqt disease, HTN, HLD, history of TIA, CKD stage III, chronic Romeo catheter with recurrent UTIs, wheelchair-bound, multiple lower extremity surgeries, who presented to the ED for evaluation of shortness of breath and wheezing. Being managed for the following: Delirium, Paranoia, hallucinations -Pt w/ hx of paranoid ideations related to cognitive decline now with superimposed delirium -Patient became more confused and was yelling and calling 911 on her cell phone and her family -Psychiatry consulted, stable on risperdal 0.5mg bid, ambien started -appreciate psych recs -this has been stable and no more recurrence Chest pain - resolved -Developed chest pain on 03/27 and was transferred to [facility] with telemetry -Troponin negative x2, EKG nonischemic -Reproducible on exam, likely musculoskeletal in nature -Another episode of chest pain on 04/06 evening, EKG and troponin unremarkable -no further pain reported Chronic Diastolic CHF pt with episode of decompensated CHF while hospitalized, now resolved -Echo 03/21/2021 -EF 55-60%, grade 2 diastolic dysfunction 03/14 CXR: Mild pulmonary edema. Possible small left pleural effusion 03/14 IV dose of Lasix 03/28 IV Lasix x 1 dose euvolemic today, daily weights pt with some weight loss, weight 81kg compensated TIA Patient was a stroke alert overnight (03/20-03/21) Likely TIA - involving the right hemisphere with left facial droop yet on imaging has no evidence for a completed event Head and neck CTA, brain MRI unremarkable for acute findings Neurology consulted, input appreciated Do not have sufficient evidence to recommend adding Plavix to her aspirin but will observe her for recurrent events and if they do enlarge then certainly would add another antiplatelet agent Recommend to continue aspirin 81 mg daily, and 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 Fields Pneumonia Has bibasilar infiltration more on the right could be secondary to aspiration versus HCAP Initial lactic acid 3.2---> 1.9, no other signs of sepsis. MRSA screen negative Zosyn 03/12 --> change to Augmentin 03/14 -->Levaquin 03/15 d/t E.cloacae and E. coli in UCx --> stop date 03/19 resolved, cont aspiration precautions CAUTI: Chronic indwelling Romeo catheter History of recurrent UTIs. Patient overdue for follow-up with urology---> Alexandrea BETANCOURT to arrange for outpatient follow-up for management of her chronic Romeo UA was suggestive of infection, 03/12 urine culture Enterobacter cloacae and E. coli Off antibiotics, per notes Romeo was a family request as patient has significant urinary incontinence. CMT (Iymqbfk-Yuvlk-Zljmj disease): S/p multiple lower extremity procedures, most recently s/p left knee closed reduction total knee arthroplasty subluxation on 02/16/2021 - patient is to remain nonweightbearing of the left lower extremity and limited weightbearing on the right lower extremity Abnormal Left ankle XR Patient complaining of multiple joint pain, more on the left leg 03/15 x-ray left ankle: A 1.8 cm linear ossific density posterior to the talus may represent an avulsion fracture from the dorsal calcaneus. Clinical correlation will be essential. Orthopedic consulted for left calcaneal superior posterior avulsion fracture status post fall: High tide walking boot removed, replaced with a dorsiflexion splint with a negative relief under the left heel and lambs wool padding to provide essentially neutral support for neutral dorsiflexion of the left ankle and heel and foot. Orthopedic recommending may use the walking boot for transfers or ambulating and wheelchair as necessary. Follow-[place] [facility] [place] requesting repeat xray L ankle and also requesting R ankle due to pain - ordered samr fracture apparent, pain meds as needed. Parkinson disease: Continue carbidopa-levodopa Chronic pain: Continue home regimen DVT prophylaxis: SQ Lovenox Disposition: Medically stable; awaiting placement. Case management following. [facility] Ad[facility] and Anticipated Discharge Date Admission Date: March 12, 2021 Subjective +pain in her ankles asking me to rewrap her leslie wraps denies other issues such as chest pain, SOB tolerating PO awaiting placement. Review of Systems Review of Systems: All systems reviewed and negative except as indicated above. Physical Exam Physical Exam: CONSTITUTIONAL: WNWD, vitals as above, generally well- appearing, NAD EYES: normal conjunctivae, no scleral icterus ENT: external ear and nose normal, MMM NECK: trachea midline, RESPIRATORY: clear to auscultation bilaterally, no crackles, rales or wheezes, normal respiratory effort CARDIOVASCULAR: regular rate and rhythm, S1 and 2 heard without murmurs, gallops or rubs, no JVD, no peripheral edema, GASTROINTESTINAL: soft, nontender, ND no guarding MUSCULOSKELETAL: moves extremities symetrically, generalized weakness. head is normocephalic and atraumatic SKIN: warm and dry, no rashes NEUROLOGIC: CN 2-12 grossly intact, no sensory deficit, normal cognition, normal speech, no tremor PSYCHIATRIC: alert cooperative and oriented Results & Data Results & Data ([facility]) Vital Signs (Past 12 Hours) Vital Signs Temp Pulse Resp BP Pulse Ox 04/14/21 16:06 36.6 C 74 18 133/83 97 04/14/21 07:32 36.8 C 62 18 145/83 H 99 Medications Administered Current Inpatient Medications Acetaminophen (Acetaminophen 325 Mg Tab) 650 mg PO Q4H PRN PRN Reason: pain/fever Stop: 05/11/21 16:59 Last Admin: 04/14/21 15:47 Dose: 650 mg Documented by: Albuterol (Albuterol 0.5% Neb Soln 2.5 Mg/0.5 Ml Vial) 2.5 mg NEB Q6R PRN PRN Reason: wheezing, SOB Stop: 05/11/21 17:17 Last Admin: 04/01/21 21:09 Dose: 2.5 mg Documented by: Albuterol (Albut/Ipratrop 3mg/0.5mg Neb 3 Ml Vial) 3 ml NEB Q4R PRN PRN Reason: Shortness Of Breath Or Wheezing Stop: 05/11/21 10:48 Last Admin: 03/28/21 11:17 Dose: 3 ml Documented by: Amlodipine Besylate (Amlodipine Besylate 5 Mg Tab) 5 mg PO QAM [facility] Stop: 05/11/21 12:14 Last Admin: 04/14/21 09:07 Dose: 5 mg Documented by: Aspirin (Aspirin 81 Mg Ectab) 81 mg PO DAILY [facility] Stop: 05/11/21 08:59 Last Admin: 04/14/21 09:08 Dose: 81 mg Documented by: Carbidopa/Levodopa (Carbidopa/Levodopa 25/100mg Tab) 1 tab PO TID [facility] Stop: 05/11/21 20:59 Last Admin: 04/14/21 12:51 Dose: 1 tab Documented by: Diclofenac Sodium (Diclofenac Sod 1% Gel 100 Gm Tube) 2 gm EXT Q6 [facility] Stop: 05/11/21 15:29 Last Admin: 04/14/21 12:50 Dose: Not Given Documented by: Docusate Sodium (Docusate Sodium 100 Mg Cap) 100 mg PO DAILY PRN PRN Reason: Constipation Stop: 05/11/21 16:59 Last Admin: 04/06/21 02:36 Dose: 100 mg Documented by: Ezetimibe (Ezetimibe 10 Mg Tablet) 10 mg PO HS [facility] Stop: 05/11/21 20:59 Last Admin: 04/13/21 20:06 Dose: 10 mg Documented by: Enoxaparin Sodium (Enoxaparin Inj 40 Mg/0.4 Ml Syr) 40 mg SQ Q24H [facility] Stop: 05/11/21 16:59 Last Admin: 04/13/21 20:05 Dose: 40 mg Documented by: Ferrous Sulfate (Ferrous Sulfate 325 Mg Tab) 325 mg PO DAILY@1100 [facility] Stop: 05/11/21 10:59 Last Admin: 04/14/21 12:50 Dose: 325 mg Documented by: Gabapentin (Gabapentin 100 Mg Cap) 200 mg PO TID [facility] Stop: 05/11/21 20:59 Last Admin: 04/14/21 12:51 Dose: 200 mg Documented by: Haloperidol Lactate (Haloperidol Lactate 5 Mg/Ml 1 Ml Vial) 1 mg IV Q6 PRN PRN Reason: Anxiety/Agitation Stop: 04/23/21 12:15 Promethazine HCl 12.5 mg/ (Sodium Chloride) 50.5 mls @ 202 mls/hr IV Q6H PRN PRN Reason: Nausea And Vomiting Stop: 05/11/21 20:07 Last Infusion: 04/12/21 18:17 Dose: Infused Documented by: Lactase (Lactase 3000 Unit Tab) 3,000 units PO AC [facility] Stop: 05/11/21 16:59 Last Admin: 04/14/21 15:49 Dose: 3,000 units Documented by: Lactobacillus Acidoph/Casei/Rhamnos (Advanced Probiotic 1250 Mg Capsule) 2 cap PO DAILY [facility] Stop: 05/11/21 14:29 Last Admin: 04/14/21 09:09 Dose: 2 cap Documented by: Lamotrigine (Lamotrigine 25 Mg Tab) 75 mg PO HS [facility] Stop: 05/11/21 20:59 Last Admin: 04/13/21 20:06 Dose: 75 mg Documented by: Lidocaine (Lidocaine 5% 1 Patch) 1 patch TD DAILY [facility] Stop: 05/11/21 08:59 Last Admin: 04/14/21 09:11 Dose: 1 patch Documented by: Miscellaneous (Remove Lidoderm Patch) 1 ea N/A HS [facility] Stop: 05/11/21 20:59 Last Admin: 04/13/21 20:07 Dose: 1 ea Documented by: Pantoprazole Sodium (Pantoprazole 40 Mg Tab) 40 mg PO DAILY [facility] Stop: 05/11/21 08:59 Last Admin: 04/14/21 09:08 Dose: 40 mg Documented by: Polyethylene Glycol (Polyethylene (Miralax) 17 Gm Pack) 17 gm PO DAILY PRN PRN Reason: Constipation Stop: 05/11/21 16:59 Last Admin: 03/18/21 08:07 Dose: 17 gm Documented by: Polyethylene Glycol (Polyethylene (Miralax) 17 Gm Pack) 17 gm PO DAILY PRN PRN Reason: Constipation Stop: 05/14/21 04:42 Potassium Chloride (Potassium Chloride 10 Meq Tabcr) 10 meq PO BID [facility] Stop: 05/11/21 20:59 Last Admin: 04/14/21 09:10 Dose: 10 meq Documented by: Risperidone (Risperidone 0.5 Mg Tablet) 0.5 mg PO BIDM [facility] Stop: 05/14/21 16:59 Senna/Docusate Sodium (Docusate Sodium/Senna 50/8.6mg Tab) 1 tab PO QAM [facility] Stop: 05/14/21 04:44 Last Admin: 04/14/21 04:58 Dose: 1 tab Documented by: Sumatriptan Succinate (Sumatriptan Succinate 25 Mg Tab) 25 mg PO DAILY PRN PRN Reason: Migraine Headache Stop: 05/08/21 10:18 Last Admin: 04/11/21 13:14 Dose: 25 mg Documented by: Tramadol HCl (Tramadol Hcl 50 Mg Tablet) 50 mg PO BID PRN PRN Reason: Pain Stop: 05/13/21 20:24 Last Admin: 04/14/21 06:02 Dose: 50 mg Documented by: Zolpidem Tartrate (Zolpidem Tartrate 5 Mg Tab) 5 mg PO HS [facility] Stop: 05/02/21 20:59 Last Admin: 04/13/21 21:29 Dose: 5 mg Documented by:
[2021-04-14] MEDS: ZOLPIDEM TARTRATE 5 MG TAB PO SCH (20:04)
[2021-04-14] MEDS: lamoTRIgine 25 MG TAB PO SCH (20:05)
[2021-04-14] MEDS: ENOXAPARIN INJ 40 MG/0.4 ML SYR SQ SCH (20:07)
[2021-04-14] MEDS: EZETIMIBE 10 MG TABLET PO SCH (20:07)
[2021-04-15] MEDS: DICLOFENAC SOD 1% GEL 100 GM TUBE EXT SCH ×3 (06:36→16:24)
[2021-04-15] MEDS: risperiDONE 0.5 MG TABLET PO SCH ×2 (07:54→16:24)
[2021-04-15] MEDS: ACETAMINOPHEN 325 MG TAB PO PRN (07:54)
[2021-04-15] MEDS: LACTASE 3000 UNIT TAB PO SCH ×3 (07:55→16:24)
[2021-04-15] MEDS: ASPIRIN 81 MG ECTAB PO SCH (09:21)
[2021-04-15] MEDS: PANTOprazole 40 MG TAB PO SCH (09:21)
[2021-04-15] MEDS: amLODIPine BESYLATE 5 MG TAB PO SCH (09:21)
[2021-04-15] MEDS: CARBIDOPA/LEVODOPA 25/100MG TAB PO SCH ×3 (09:23→21:54)
[2021-04-15] MEDS: GABAPENTIN 100 MG CAP PO SCH ×3 (09:23→21:52)
[2021-04-15] MEDS: POTASSIUM CHLORIDE 10 MEQ TABCR PO SCH ×2 (09:23→21:53)
[2021-04-15] MEDS: ADVANCED PROBIOTIC 1250 MG CAPSULE PO SCH (09:24)
[2021-04-15] MEDS: DOCUSATE SODIUM/SENNA 50/8.6MG TAB PO SCH (09:24)
[2021-04-15] MEDS: LIDOCAINE 5% 1 PATCH TD SCH (09:25)
[2021-04-15] MEDS: FERROUS SULFATE 325 MG TAB PO SCH (12:38)
--- NOTE | 2021-04-15 16:14 | Hospitalist Progress Note ---
Date of Service April 15, 2021 Assessment & Plan (1) Pneumonia: (2) Catheter-associated urinary tract infection: Plan: This is a 76-year-old female with PMH Parkinson's, Wjwcmbk-Wqlsz-Stvkf disease, HTN, HLD, history of TIA, CKD stage III, chronic Romeo catheter with recurrent UTIs, wheelchair-bound, multiple lower extremity surgeries, who presented to the ED for evaluation of shortness of breath and wheezing. Being managed for the following: Delirium, Paranoia, hallucinations -Pt w/ hx of paranoid ideations related to cognitive decline now with superimposed delirium -Patient became more confused and was yelling and calling 911 on her cell phone and her family -Psychiatry consulted, stable on risperdal 0.5mg bid, ambien started -appreciate psych recs -this has been stable and no more recurrence Chest pain - resolved -Developed chest pain on 03/27 and was transferred to [facility] with telemetry -Troponin negative x2, EKG nonischemic -Reproducible on exam, likely musculoskeletal in nature -Another episode of chest pain on 04/06 evening, EKG and troponin unremarkable Chronic Diastolic CHF pt with episode of decompensated CHF while hospitalized, now resolved -Echo 03/21/2021 -EF 55-60%, grade 2 diastolic dysfunction 03/14 CXR: Mild pulmonary edema. Possible small left pleural effusion 03/14 IV dose of Lasix 03/28 IV Lasix x 1 dose euvolemic today, daily weights pt with some weight loss, weight 81kg TIA Patient was a stroke alert overnight (03/20-03/21) Likely TIA - involving the right hemisphere with left facial droop yet on imaging has no evidence for a completed event Head and neck CTA, brain MRI unremarkable for acute findings Neurology consulted, input appreciated Do not have sufficient evidence to recommend adding Plavix to her aspirin but will observe her for recurrent events and if they do enlarge then certainly would add another antiplatelet agent Recommend to continue aspirin 81 mg daily, and 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 Fields Pneumonia Has bibasilar infiltration more on the right could be secondary to aspiration versus HCAP Initial lactic acid 3.2---> 1.9, no other signs of sepsis. MRSA screen negative Zosyn 03/12 --> change to Augmentin 03/14 -->Levaquin 03/15 d/t E.cloacae and E. coli in UCx --> stop date 03/19 Blood cultures negative Has had speech evaluation Recommended aspiration precaution during feeding - If the condition persist will need to have a formal barium swallow No fever and no chills CAUTI: Chronic indwelling Romeo catheter History of recurrent UTIs. Patient overdue for follow-up with urology---> Alexandrea BETANCOURT to arrange for outpatient follow-up for management of her chronic Romeo UA was suggestive of infection, 03/12 urine culture Enterobacter cloacae and E. coli Off antibiotics CMT (Wxxdbga-Ljcmt-Reoak disease): S/p multiple lower extremity procedures, most recently s/p left knee closed reduction total knee arthroplasty subluxation on 02/16/2021 - patient is to remain nonweightbearing of the left lower extremity and limited weightbearing on the right lower extremity Abnormal Left ankle XR Patient complaining of multiple joint pain, more on the left leg 03/15 x-ray left ankle: A 1.8 cm linear ossific density posterior to the talus may represent an avulsion fracture from the dorsal calcaneus. Clinical correlation will be essential. Orthopedic consulted for left calcaneal superior posterior avulsion fracture status post fall: High tide walking boot removed, replaced with a dorsiflexion splint with a negative relief under the left heel and lambs wool padding to pr ovide essentially neutral support for neutral dorsiflexion of the left ankle and heel and foot. Orthopedic recommending may use the walking boot for transfers or ambulating and wheelchair as necessary. Follow-up with outpatient orthopedics. Dr. Crain, [facility]. Pt requesting repeat xray L ankle and also requesting R ankle due to pain - ordered This is a 76-year-old female with PMH Parkinson's, Bbxcagc-Sbzlo-Pkcob disease, HTN, HLD, history of TIA, CKD stage III, chronic Romeo catheter with recurrent UTIs, wheelchair-bound, multiple lower extremity surgeries, who presented to the ED for evaluation of shortness of breath and wheezing. Being managed for the following: Delirium, Paranoia, hallucinations -Pt w/ hx of paranoid ideations related to cognitive decline now with superimposed delirium -Patient became more confused and was yelling and calling 911 on her cell phone and her family -Psychiatry consulted, stable on risperdal 0.5mg bid, ambien started -appreciate psych recs -this has been stable and no more recurrence Chest pain - resolved -Developed chest pain on 03/27 and was transferred to [facility] with telemetry -Troponin negative x2, EKG nonischemic -Reproducible on exam, likely musculoskeletal in nature -Another episode of chest pain on 04/06 evening, EKG and troponin unremarkable -no further pain reported Chronic Diastolic CHF pt with episode of decompensated CHF while hospitalized, now resolved -Echo 03/21/2021 -EF 55-60%, grade 2 diastolic dysfunction 03/14 CXR: Mild pulmonary edema. Possible small left pleural effusion 03/14 IV dose of Lasix 03/28 IV Lasix x 1 dose euvolemic today, daily weights pt with some weight loss, weight 81kg compensated TIA Patient was a stroke alert overnight (03/20-03/21) Likely TIA - involving the right hemisphere with left facial droop yet on imaging has no evidence for a completed event Head and neck CTA, brain MRI unremarkable for acute findings Neurology consulted, input appreciated Do not have sufficient evidence to recommend adding Plavix to her aspirin but will observe her for recurrent events and if they do enlarge then certainly would add another antiplatelet agent Recommend to continue aspirin 81 mg daily, and 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 Fields Pneumonia Has bibasilar infiltration more on the right could be secondary to aspiration versus HCAP Initial lactic acid 3.2---> 1.9, no other signs of sepsis. MRSA screen negative Zosyn 03/12 --> change to Augmentin 03/14 -->Levaquin 03/15 d/t E.cloacae and E. coli in UCx --> stop date 03/19 resolved, cont aspiration precautions CAUTI: Chronic indwelling Romeo catheter History of recurrent UTIs. Patient overdue for follow-up with urology---> Alexandrea BETANCOURT to arrange for outpatient follow-up for management of her chronic Romeo UA was suggestive of infection, 03/12 urine culture Enterobacter cloacae and E. coli Off antibiotics, per notes Romeo was a family request as patient has significant urinary incontinence. CMT (Rzoocle-Kddkr-Vmkvs disease): S/p multiple lower extremity procedures, most recently s/p left knee closed reduction total knee arthroplasty subluxation on 02/16/2021 - patient is to remain nonweightbearing of the left lower extremity and limited weightbearing on the right lower extremity Abnormal Left ankle XR Patient complaining of multiple joint pain, more on the left leg 03/15 x-ray left ankle: A 1.8 cm linear ossific density posterior to the talus may represent an avulsion fracture from the dorsal calcaneus. Clinical correlation will be essential. Orthopedic consulted for left calcaneal superior posterior avulsion fracture status post fall: High tide walking boot removed, replaced with a dorsiflexion splint with a negative relief under the left heel and lambs wool padding to provide essentially neutral support for neutral dorsiflexion of the left ankle and heel and foot. Orthopedic recommending may use the walking boot for tra nsfers or ambulating and wheelchair as necessary. Follow-up with outpatient orthopedics. Dr. Crain, [facility]. Pt requesting repeat xray L ankle and also requesting R ankle due to pain - ordered same fracture apparent, pain meds as needed. Schedule tramadol and tylenol for next 6 doses. Parkinson disease: Continue carbidopa-levodopa Chronic pain: Continue home regimen DVT prophylaxis: SQ Lovenox Disposition:Medically stable; awaiting placement. Case management following. Marie Ceballos DO [facility] Hospitalist Parkinson disease: Continue carbidopa-levodopa Chronic pain: Continue home regimen DVT prophylaxis: SQ Lovenox Disposition: Medically stable; awaiting placement. Case management following. Marie Ceballos DO Hospitalist Admission and Anticipated Discharge Date Admission Date: March 12, 2021 Subjective reports pain in both feet ankles both wrapped in ERIKA wrap denies SOB/CP nonambulatory Review of Systems Review of Systems: All systems reviewed and negative except as indicated above. Physical Exam Physical Exam: CONSTITUTIONAL: WNWD, vitals as above, generally well- appearing, NAD EYES: normal conjunctivae, no scleral icterus ENT: external ear and nose normal, MMM NECK: trachea midline, RESPIRATORY: clear to auscultation bilaterally, no crackles, rales or wheezes, normal respiratory effort CARDIOVASCULAR: regular rate and rhythm, S1 and 2 heard without murmurs, gallops or rubs, no JVD, no peripheral edema, GASTROINTESTINAL: soft, nontender, ND no guarding MUSCULOSKELETAL: moves extremities symmetrically, erika wraps to both feet and ankles generalized weakness. head is normocephalic and atraumatic SKIN: warm and dry, NEUROLOGIC: CN 2-12 grossly intact, no sensory deficit, normal cognition, normal speech, no tremor PSYCHIATRIC: alert cooperative and oriented Results & Data Results & Data ([facility]) Vital Signs (Past 12 Hours) Vital Signs Temp Pulse Resp BP Pulse Ox 04/15/21 07:10 36.7 C 61 16 136/79 97 Medications Administered Current Inpatient Medications Acetaminophen (Acetaminophen 325 Mg Tab) 650 mg PO Q4H PRN PRN Reason: pain/fever Stop: 05/11/21 16:59 Last Admin: 04/15/21 07:54 Dose: 650 mg Documented by: Albuterol (Albuterol 0.5% Neb Soln 2.5 Mg/0.5 Ml Vial) 2.5 mg NEB Q6R PRN PRN Reason: wheezing, SOB Stop: 05/11/21 17:17 Last Admin: 04/01/21 21:09 Dose: 2.5 mg Documented by: Albuterol (Albut/Ipratrop 3mg/0.5mg Neb 3 Ml Vial) 3 ml NEB Q4R PRN PRN Reason: Shortness Of Breath Or Wheezing Stop: 05/11/21 10:48 Last Admin: 03/28/21 11:17 Dose: 3 ml Documented by: Amlodipine Besylate (Amlodipine Besylate 5 Mg Tab) 5 mg PO QAM [facility] Stop: 05/11/21 12:14 Last Admin: 04/15/21 09:21 Dose: 5 mg Documented by: Aspirin (Aspirin 81 Mg Ectab) 81 mg PO DAILY [facility] Stop: 05/11/21 08:59 Last Admin: 04/15/21 09:21 Dose: 81 mg Documented by: Carbidopa/Levodopa (Carbidopa/Levodopa 25/100mg Tab) 1 tab PO TID [facility] Stop: 05/11/21 20:59 Last Admin: 04/15/21 15:25 Dose: 1 tab Documented by: Diclofenac Sodium (Diclofenac Sod 1% Gel 100 Gm Tube) 2 gm EXT Q6 [facility] Stop: 05/11/21 15:29 Last Admin: 04/15/21 12:39 Dose: 2 gm Documented by: Docusate Sodium (Docusate Sodium 100 Mg Cap) 100 mg PO DAILY PRN PRN Reason: Constipation Stop: 05/11/21 16:59 Last Admin: 04/06/21 02:36 Dose: 100 mg Documented by: Ezetimibe (Ezetimibe 10 Mg Tablet) 10 mg PO HS [facility] Stop: 05/11/21 20:59 Last Admin: 04/14/21 20:07 Dose: 10 mg Documented by: Enoxaparin Sodium (Enoxaparin Inj 40 Mg/0.4 Ml Syr) 40 mg SQ Q24H [facility] Stop: 05/11/21 16:59 Last Admin: 04/14/21 20:07 Dose: 40 mg Documented by: Ferrous Sulfate (Ferrous Sulfate 325 Mg Tab) 325 mg PO DAILY@1100 [facility] Stop: 05/11/21 10:59 Last Admin: 04/15/21 12:38 Dose: 325 mg Documented by: Gabapentin (Gabapentin 100 Mg Cap) 200 mg PO TID [facility] Stop: 05/11/21 20:59 Last Admin: 04/15/21 15:25 Dose: 200 mg Documented by: Haloperidol Lactate (Haloperidol Lactate 5 Mg/Ml 1 Ml Vial) 1 mg IV Q6 PRN PRN Reason: Anxiety/Agitation Stop: 04/23/21 12:15 Promethazine HCl 12.5 mg/ (Sodium Chloride) 50.5 mls @ 202 mls/hr IV Q6H PRN PRN Reason: Nausea And Vomiting Stop: 05/11/21 20:07 Last Infusion: 04/12/21 18:17 Dose: Infused Documented by: Lactase (Lactase 3000 Unit Tab) 3,000 units PO AC [facility] Stop: 05/11/21 16:59 Last Admin: 04/15/21 12:38 Dose: 3,000 units Documented by: Lactobacillus Acidoph/Casei/Rhamnos (Advanced Probiotic 1250 Mg Capsule) 2 cap PO DAILY [facility] Stop: 05/11/21 14:29 Last Admin: 04/15/21 09:24 Dose: 2 cap Documented by: Lamotrigine (Lamotrigine 25 Mg Tab) 75 mg PO HS [facility] Stop: 05/11/21 20:59 Last Admin: 04/14/21 20:05 Dose: 75 mg Documented by: Lidocaine (Lidocaine 5% 1 Patch) 1 patch TD DAILY [facility] Stop: 05/11/21 08:59 Last Admin: 04/15/21 09:25 Dose: 1 patch Documented by: Miscellaneous (Remove Lidoderm Patch) 1 ea N/A [facility] Stop: 05/11/21 20:59 Last Admin: 04/14/21 20:05 Dose: 1 ea Documented by: Pantoprazole Sodium (Pantoprazole 40 Mg Tab) 40 mg PO DAILY [facility] Stop: 05/11/21 08:59 Last Admin: 04/15/21 09:21 Dose: 40 mg Documented by: Polyethylene Glycol (Polyethylene (Miralax) 17 Gm Pack) 17 gm PO DAILY PRN PRN Reason: Constipation Stop: 05/11/21 16:59 Last Admin: 03/18/21 08:07 Dose: 17 gm Documented by: Polyethylene Glycol (Polyethylene (Miralax) 17 Gm Pack) 17 gm PO DAILY PRN PRN Reason: Constipation Stop: 05/14/21 04:42 Potassium Chloride (Potassium Chloride 10 Meq Tabcr) 10 meq PO BID [facility] Stop: 05/11/21 20:59 Last Admin: 04/15/21 09:23 Dose: 10 meq Documented by: Risperidone (Risperidone 0.5 Mg Tablet) 0.5 mg PO BIDM [facility] Stop: 05/14/21 16:59 Last Admin: 04/15/21 07:54 Dose: 0.5 mg Documented by: Senna/Docusate Sodium (Docusate Sodium/Senna 50/8.6mg Tab) 1 tab PO QAM [facility] Stop: 05/14/21 04:44 Last Admin: 04/15/21 09:24 Dose: Not Given Documented by: Sumatriptan Succinate (Sumatriptan Succinate 25 Mg Tab) 25 mg PO DAILY PRN PRN Reason: Migraine Headache Stop: 05/08/21 10:18 Last Admin: 04/11/21 13:14 Dose: 25 mg Documented by: Tramadol HCl (Tramadol Hcl 50 Mg Tablet) 50 mg PO BID PRN PRN Reason: Pain Stop: 05/13/21 20:24 Last Admin: 04/14/21 19:45 Dose: 50 mg Documented by: Zolpidem Tartrate (Zolpidem Tartrate 5 Mg Tab) 5 mg PO [facility] Stop: 05/02/21 20:59 Last Admin: 04/14/21 20:04 Dose: 5 mg Documented by:
[2021-04-15] MEDS: traMADol HCL 50 MG TABLET PO SCH (18:34)
[2021-04-15] MEDS: ACETAMINOPHEN 500 MG TAB PO SCH (18:35)
[2021-04-15] MEDS: lamoTRIgine 25 MG TAB PO SCH (21:55)
[2021-04-15] MEDS: ENOXAPARIN INJ 40 MG/0.4 ML SYR SQ SCH (21:55)
[2021-04-15] MEDS: EZETIMIBE 10 MG TABLET PO SCH (21:55)
[2021-04-15] MEDS: ZOLPIDEM TARTRATE 5 MG TAB PO SCH (22:00)
[2021-04-16] MEDS: DICLOFENAC SOD 1% GEL 100 GM TUBE EXT SCH ×5 (01:14→23:56)
[2021-04-16] MEDS: ACETAMINOPHEN 500 MG TAB PO SCH ×4 (01:14→23:56)
[2021-04-16] MEDS: traMADol HCL 50 MG TABLET PO SCH ×4 (01:14→23:56)
[2021-04-16] MEDS: POTASSIUM CHLORIDE 10 MEQ TABCR PO SCH ×2 (08:24→21:31)
[2021-04-16] MEDS: risperiDONE 0.5 MG TABLET PO SCH ×2 (08:25→17:25)
[2021-04-16] MEDS: LACTASE 3000 UNIT TAB PO SCH ×3 (08:25→17:24)
[2021-04-16] MEDS: ASPIRIN 81 MG ECTAB PO SCH (08:25)
[2021-04-16] MEDS: DOCUSATE SODIUM/SENNA 50/8.6MG TAB PO SCH (08:26)
[2021-04-16] MEDS: ADVANCED PROBIOTIC 1250 MG CAPSULE PO SCH (08:26)
[2021-04-16] MEDS: PANTOprazole 40 MG TAB PO SCH (08:26)
[2021-04-16] MEDS: CARBIDOPA/LEVODOPA 25/100MG TAB PO SCH ×3 (08:26→21:31)
[2021-04-16] MEDS: amLODIPine BESYLATE 5 MG TAB PO SCH (08:27)
[2021-04-16] MEDS: GABAPENTIN 100 MG CAP PO SCH ×3 (08:27→21:25)
[2021-04-16] MEDS: LIDOCAINE 5% 1 PATCH TD SCH (08:28)
[2021-04-16] MEDS: FERROUS SULFATE 325 MG TAB PO SCH (12:36)
--- NOTE | 2021-04-16 14:46 | Hospitalist Progress Note ---
Date of Service April 16, 2021 Assessment & Plan (1) Pneumonia: (2) Catheter-associated urinary tract infection: Plan: This is a 76-year-old female with PMH Parkinson's, Ydsheoi-Povvx-Cglbv disease, HTN, HLD, history of TIA, CKD stage III, chronic Romeo catheter with recurrent UTIs, wheelchair-bound, multiple lower extremity surgeries, who presented to the ED for evaluation of shortness of breath and wheezing. Being managed for the following: Delirium, Paranoia, hallucinations -Pt w/ hx of paranoid ideations related to cognitive decline now with superimposed delirium -Patient became more confused and was yelling and calling 911 on her cell phone and her family -Psychiatry consulted, stable on risperdal 0.5mg bid, ambien started -this has been stable and no more recurrence Chest pain - resolved -Developed chest pain on 03/27 and was transferred to [facility] with telemetry -Troponin negative x2, EKG nonischemic -Reproducible on exam, likely musculoskeletal in nature -Another episode of chest pain on 04/06 evening, EKG and troponin unremarkable Chronic Diastolic CHF pt with episode of decompensated CHF while hospitalized, now resolved -Echo 03/21/2021 -EF 55-60%, grade 2 diastolic dysfunction 03/14 CXR: Mild pulmonary edema. Possible small left pleural effusion 03/14 IV dose of Lasix 03/28 IV Lasix x 1 dose euvolemic today, daily weights TIA Patient was a stroke alert overnight (03/20-03/21) Likely TIA - involving the right hemisphere with left facial droop yet on imaging has no evidence for a completed event Head and neck CTA, brain MRI unremarkable for acute findings Neurology consulted, input appreciated Do not have sufficient evidence to recommend adding Plavix to her aspirin but will observe her for recurrent events and if they do enlarge then certainly would add another antiplatelet agent Recommend to continue aspirin 81 mg daily, and 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 Fields Pneumonia Has bibasilar infiltration more on the right could be secondary to aspiration versus HCAP Initial lactic acid 3.2---> 1.9, no other signs of sepsis. MRSA screen negative Zosyn 03/12 --> change to Augmentin 03/14 -->Levaquin 03/15 d/t E.cloacae and E. coli in UCx --> stop date 03/19 Blood cultures negative Has had speech evaluation Recommended aspiration precaution during feeding - If the condition persist will need to have a formal barium swallow No fever and no chills CAUTI:Chronic indwelling Romeo catheter History of recurrent UTIs. Patient overdue for follow-up with urology---> Alexandrea BETANCOURT to arrange for outpatient follow-up for management of her chronic Romeo UA was suggestive of infection, 03/12 urine culture Enterobacter cloacae and E. coli Off antibiotics CMT (Luxivpd-Zvolh-Rrown disease): S/p multiple lower extremity procedures, most recently s/p left knee closed reduction total knee arthroplasty subluxation on 02/16/2021 - patient is to remain nonweightbearing of the left lower extremity and limited weightbearing on the right lower extremity Abnormal Left ankle XR Patient complaining of multiple joint pain, more on the left leg 03/15 x-ray left ankle: A 1.8 cm linear ossific density posterior to the talus may represent an avulsion fracture from the dorsal calcaneus. Clinical correlation will be essential. Orthopedic consulted for left calcaneal superior posterior avulsion fracture status post fall: High tide walking boot removed, replaced with a dorsiflexion splint with a negative relief under the left heel and lambs wool padding to provide essentially neutral support for neutral dorsiflexion of the left ankle and heel and foot. Orthopedic recommending may use the walking boot for transfers or ambulating and wheelchair as necessary. Follow-up with outpatient orthopedics. Dr. Crain, [facility]. Pt requesting repeat xray L ankle and also requesting R ankle due to pain - ordered This is a 76-year-old female with PMH Parkinson's, Wxnxurs-Urphm-Atzes disease, HTN, HLD, history of TIA, CKD stage III, chronic Romeo catheter with recurrent UTIs, wheelchair-bound, multiple lower extremity surgeries, who presented to the ED for evaluation of shortness of breath and wheezing. Being managed for the following: Parkinson disease: Continue carbidopa-levodopa Chronic pain: Continue home regimen DVT prophylaxis: SQ Lovenox Disposition:Medically stable; awaiting placement. Case management following. ROS-No Headache, No Visual Changes, No Nausea, No Vomiting, No Fever, No Chills, No Neck Pain or Stiffness, No Chest Pain, No Palpitations, No SOB, No RAPHAEL, No Cough, No Sputum, No Wheezing, No Abdominal Pain, No Diarrhea, No Hematemesis, No Hemoptysis, No Unexpected Weight Loss, No Flank pain, No Melena, No Hematochezia, No Frequency, No Urgency, No Burning, No Hematuria, No Rashes, No Diaphoresis. Appetite is Normal Physical Exam Gen-AAO x 3, NAD, Afebrile, obese Head-NCAT, EOMI, PERRLA, Anicteric Sclera, No Posterior Pharyngeal Erythema Neck-Supple, No JVD, No Thyromegaly, No Masses, No LAD, No Bruits Lungs-Clear to Auscultation Bilaterally, No Rales, No Rhonchi, No Wheezing, No Crepitus Chest-No S4, +S1, +S2, No S3, No Murmurs, No Rubs, No Gallops, No Ectopy Abdomen-Soft, Bowel Sounds Present, Non Tender, Non Distended, No Hepatomegaly, No Splenomegaly, No Palpable Masses, No Rebound, No Rigidity, No Guarding, positive Romeo Musculoskeletal-Full Range of Motion Bilaterally, No CVAT Extremities-No Cyanosis, No Clubbing, No Edema Nuero-Cranial Nerves II-XII grossly intact, Motor WNL, DTRs WNL, Strength WNL, Non Focal Psych-flat Admission and Anticipated Discharge Date Admission Date: March 12, 2021 Subjective Patient seen in her room today reports pain in both feet ankles both unwrapped nonambulatory Results & Data Results & Data ([facility]) Vital Signs (Past 12 Hours) Vital Signs Temp Pulse Resp BP Pulse Ox 04/16/21 07:13 36.6 C 70 16 130/76 98 Laboratory Results Reviewed
[2021-04-16] MEDS: ENOXAPARIN INJ 40 MG/0.4 ML SYR SQ SCH (21:26)
[2021-04-16] MEDS: lamoTRIgine 25 MG TAB PO SCH (21:29)
[2021-04-16] MEDS: ZOLPIDEM TARTRATE 5 MG TAB PO SCH (21:29)
[2021-04-16] MEDS: EZETIMIBE 10 MG TABLET PO SCH (21:30)
[2021-04-17] MEDS: DICLOFENAC SOD 1% GEL 100 GM TUBE EXT SCH ×3 (05:42→17:07)
[2021-04-17] MEDS: LACTASE 3000 UNIT TAB PO SCH ×3 (08:18→15:38)
[2021-04-17] MEDS: ACETAMINOPHEN 500 MG TAB PO SCH ×2 (08:18→17:07)
[2021-04-17] MEDS: traMADol HCL 50 MG TABLET PO SCH (08:18)
[2021-04-17] MEDS: amLODIPine BESYLATE 5 MG TAB PO SCH (08:19)
[2021-04-17] MEDS: PANTOprazole 40 MG TAB PO SCH (08:19)
[2021-04-17] MEDS: POTASSIUM CHLORIDE 10 MEQ TABCR PO SCH ×2 (08:19→21:52)
[2021-04-17] MEDS: ADVANCED PROBIOTIC 1250 MG CAPSULE PO SCH (08:19)
[2021-04-17] MEDS: GABAPENTIN 100 MG CAP PO SCH ×3 (08:19→21:53)
[2021-04-17] MEDS: ASPIRIN 81 MG ECTAB PO SCH (08:20)
[2021-04-17] MEDS: risperiDONE 0.5 MG TABLET PO SCH ×2 (08:20→17:06)
[2021-04-17] MEDS: DOCUSATE SODIUM/SENNA 50/8.6MG TAB PO SCH (08:20)
[2021-04-17] MEDS: CARBIDOPA/LEVODOPA 25/100MG TAB PO SCH ×3 (08:20→21:53)
[2021-04-17] MEDS: LIDOCAINE 5% 1 PATCH TD SCH (08:21)
--- NOTE | 2021-04-17 09:57 | Hospitalist Progress Note ---
Date of Service April 17, 2021 Assessment & Plan (1) Pneumonia: (2) Catheter-associated urinary tract infection: Plan: This is a 76-year-old female with PMH Parkinson's, Hwepejg-Pvzau-Xdcab disease, HTN, HLD, history of TIA, CKD stage III, chronic Romeo catheter with recurrent UTIs, wheelchair-bound, multiple lower extremity surgeries, who presented to the ED for evaluation of shortness of breath and wheezing. Being managed for the following: Delirium, Paranoia, hallucinations -Pt w/ hx of paranoid ideations related to cognitive decline now with superimposed delirium -Patient became more confused and was yelling and calling 911 on her cell phone and her family -Psychiatry consulted, stable on risperdal 0.5mg bid, ambien started -this has been stable and no more recurrence Chest pain - resolved -Developed chest pain on 03/27 and was transferred to [facility] with telemetry -Troponin negative x2, EKG nonischemic -Reproducible on exam, likely musculoskeletal in nature -Another episode of chest pain on 04/06 evening, EKG and troponin unremarkable Chronic Diastolic CHF pt with episode of decompensated CHF while hospitalized, now resolved -Echo 03/21/2021 -EF 55-60%, grade 2 diastolic dysfunction 03/14 CXR: Mild pulmonary edema. Possible small left pleural effusion 03/14 IV dose of Lasix 03/28 IV Lasix x 1 dose euvolemic today, daily weights TIA Patient was a stroke alert overnight (03/20-03/21) Likely TIA - involving the right hemisphere with left facial droop yet on imaging has no evidence for a completed event Head and neck CTA, brain MRI unremarkable for acute findings Neurology consulted, input appreciated Do not have sufficient evidence to recommend adding Plavix to her aspirin but will observe her for recurrent events and if they do enlarge then certainly would add another antiplatelet agent Recommend to continue aspirin 81 mg daily, and 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 Fields Pneumonia Has bibasilar infiltration more on the right could be secondary to aspiration versus HCAP Initial lactic acid 3.2---> 1.9, no other signs of sepsis. MRSA screen negative Zosyn 03/12 --> change to Augmentin 03/14 -->Levaquin 03/15 d/t E.cloacae and E. coli in UCx --> stop date 03/19 Blood cultures negative Has had speech evaluation Recommended aspiration precaution during feeding - If the condition persist will need to have a formal barium swallow No fever and no chills CAUTI:Chronic indwelling Romeo catheter History of recurrent UTIs. Patient overdue for follow-up with urology---> Alexandrea BETANCOURT to arrange for outpatient follow-up for management of her chronic Romeo UA was suggestive of infection, 03/12 urine culture Enterobacter cloacae and E. coli Off antibiotics CMT (Zzzfljl-Dpwme-Acekf disease): S/p multiple lower extremity procedures, most recently s/p left knee closed reduction total knee arthroplasty subluxation on 02/16/2021 - patient is to remain nonweightbearing of the left lower extremity and limited weightbearing on the right lower extremity change tramdol to hydrocodone Abnormal Left ankle XR Patient complaining of multiple joint pain, more on the left leg 03/15 x-ray left ankle: A 1.8 cm linear ossific density posterior to the talus may represent an avulsion fracture from the dorsal calcaneus. Clinical correlation will be essential. Orthopedic consulted for left calcaneal superior posterior avulsion fracture status post fall: High tide walking boot removed, replaced with a dorsiflexion splint with a negative relief under the left heel and lambs wool padding to provide essentially neutral support for neutral dorsiflexion of the left ankle and heel and foot. Orthopedic recommending may use the walking boot for transfers or ambulating and wheelchair as necessary. Follow-up with outpatient orthopedics. Dr. Crain, [facility] [place]. Pt requesting repeat xray L ankle and also requesting R ankle due to pain - ordered, unchanged, follow up with Dr. Crain. Parkinson disease: Continue carbidopa-levodopa Chronic pain: Continue home regimen DVT prophylaxis: SQ Lovenox Disposition:Medically stable; awaiting placement. Case management following. Admission and Anticipated Discharge Date Admission Date: March 12, 2021 Supervising Physician Co-Signing Physician Notes ROS-No Headache, No Visual Changes, No Nausea, No Vomiting, No Fever, No Chills, No Neck Pain or Stiffness, No Chest Pain, No Palpitations, No SOB, No RAPHAEL, No Cough, No Sputum, No Wheezing, No Abdominal Pain, No Diarrhea, No Hematemesis, No Hemoptysis, No Unexpected Weight Loss, No Flank pain, No Melena, No Hematochezia, No Frequency, No Urgency, No Burning, No Hematuria, No Rashes, No Diaphoresis. Appetite is Normal Physical Exam Gen-AAO x 3, NAD, Afebrile, obese Head-NCAT, EOMI, PERRLA, Anicteric Sclera, No Posterior Pharyngeal Erythema Neck-Supple, No JVD, No Thyromegaly, No Masses, No LAD, No Bruits Lungs-Clear to Auscultation Bilaterally, No Rales, No Rhonchi, No Wheezing, No Crepitus Chest-No S4, +S1, +S2, No S3, No Murmurs, No Rubs, No Gallops, No Ectopy Abdomen-Soft, Bowel Sounds Present, Non Tender, Non Distended, No Hepatomegaly, No Splenomegaly, No Palpable Masses, No Rebound, No Rigidity, No Guarding, positive Romeo Musculoskeletal-Full Range of Motion Bilaterally, No CVAT Extremities-No Cyanosis, No Clubbing, No Edema Nuero-Cranial Nerves II-XII grossly intact, Motor WNL, DTRs WNL, Strength WNL, Non Focal Psych-flat Subjective Patient was seen and examined in room 381-1. Follow-up delirium, UTI and pneumonia. Awaiting Placement. "Tramadol doesn't work, why can't I have oxycodone?" +ankle pain, denies f/c/s, chest pain, sob, n/v. Tolerating diet. Review of Systems Review of Systems: All systems reviewed & are unremarkable except as noted in HPI & below Physical Exam Physical Exam: Gen: WD/WN, F, chronically ill appearing, NAD, A&O x3 basics HEENT: Normocephalic, atraumatic, conjunctivae moist, sclerae anicteric, mucous membranes moist. Lung: Clear to Auscultation bilaterally, no wheezes/rales/rhonchi Heart: Regular rate, regular rhythm, no murmurs, rubs, or gallops Abdomen: Soft, NT, ND +BS x 4 Extremities: LLE brace in place Skin: Warm, no rash, negative turgor. : +Romeo cath Results & Data Results & Data ([facility]) Vital Signs (Past 12 Hours) Vital Signs Temp Pulse Pulse Resp BP Pulse Ox 04/17/21 07:44 36.5 C 59 L 20 124/74 96 04/16/21 22:00 36.8 C 73 16 160/88 H 96 Medications Administered Current Inpatient Medications Acetaminophen (Acetaminophen 500 Mg Tab) 1,000 mg PO Q8@0000,0800,1600 [facility] Stop: 05/15/21 16:59 Last Admin: 04/17/21 08:18 Dose: 1,000 mg Documented by: Albuterol (Albuterol 0.5% Neb Soln 2.5 Mg/0.5 Ml Vial) 2.5 mg NEB Q6R PRN PRN Reason: wheezing, SOB Stop: 05/11/21 17:17 Last Admin: 04/01/21 21:09 Dose: 2.5 mg Documented by: Albuterol (Albut/Ipratrop 3mg/0.5mg Neb 3 Ml Vial) 3 ml NEB Q4R PRN PRN Reason: Shortness Of Breath Or Wheezing Stop: 05/11/21 10:48 Last Admin: 03/28/21 11:17 Dose: 3 ml Documented by: Amlodipine Besylate (Amlodipine Besylate 5 Mg Tab) 5 mg PO QAM [facility] Stop: 05/11/21 12:14 Last Admin: 04/17/21 08:19 Dose: 5 mg Documented by: Aspirin (Aspirin 81 Mg Ectab) 81 mg PO DAILY [facility] Stop: 05/11/21 08:59 Last Admin: 04/17/21 08:20 Dose: 81 mg Documented by: Carbidopa/Levodopa (Carbidopa/Levodopa 25/100mg Tab) 1 tab PO TID [facility] Stop: 05/11/21 20:59 Last Admin: 04/17/21 08:20 Dose: 1 tab Documented by: Diclofenac Sodium (Diclofenac Sod 1% Gel 100 Gm Tube) 2 gm EXT Q6 [facility] Stop: 05/11/21 15:29 Last Admin: 04/17/21 05:42 Dose: Not Given Documented by: Docusate Sodium (Docusate Sodium 100 Mg Cap) 100 mg PO DAILY PRN PRN Reason: Constipation Stop: 05/11/21 16:59 Last Admin: 04/06/21 02:36 Dose: 100 mg Documented by: Ezetimibe (Ezetimibe 10 Mg Tablet) 10 mg PO HS [facility] Stop: 05/11/21 20:59 Last Admin: 04/16/21 21:30 Dose: 10 mg Documented by: Enoxaparin Sodium (Enoxaparin Inj 40 Mg/0.4 Ml Syr) 40 mg SQ Q24H [facility] Stop: 05/11/21 16:59 Last Admin: 04/16/21 21:26 Dose: 40 mg Documented by: Ferrous Sulfate (Ferrous Sulfate 325 Mg Tab) 325 mg PO DAILY@1100 [facility] Stop: 05/11/21 10:59 Last Admin: 04/16/21 12:36 Dose: 325 mg Documented by: Gabapentin (Gabapentin 100 Mg Cap) 200 mg PO TID [facility] Stop: 05/11/21 20:59 Last Admin: 04/17/21 08:19 Dose: 200 mg Documented by: Haloperidol Lactate (Haloperidol Lactate 5 Mg/Ml 1 Ml Vial) 1 mg IV Q6 PRN PRN Reason: Anxiety/Agitation Stop: 04/23/21 12:15 Promethazine HCl 12.5 mg/ (Sodium Chloride) 50.5 mls @ 202 mls/hr IV Q6H PRN PRN Reason: Nausea And Vomiting Stop: 05/11/21 20:07 Last Infusion: 04/12/21 18:17 Dose: Infused Documented by: Lactase (Lactase 3000 Unit Tab) 3,000 units PO AC [facility] Stop: 05/11/21 16:59 Last Admin: 04/17/21 08:18 Dose: 3,000 units Documented by: Lactobacillus Acidoph/Casei/Rhamnos (Advanced Probiotic 1250 Mg Capsule) 2 cap PO DAILY [facility] Stop: 05/11/21 14:29 Last Admin: 04/17/21 08:19 Dose: 2 cap Documented by: Lamotrigine (Lamotrigine 25 Mg Tab) 75 mg PO HS [facility] Stop: 05/11/21 20:59 Last Admin: 04/16/21 21:29 Dose: 75 mg Documented by: Lidocaine (Lidocaine 5% 1 Patch) 1 patch TD DAILY [facility] Stop: 05/11/21 08:59 Last Admin: 04/17/21 08:21 Dose: 1 patch Documented by: Miscellaneous (Remove Lidoderm Patch) 1 ea N/A [facility] Stop: 05/11/21 20:59 Last Admin: 04/16/21 21:32 Dose: 1 ea Documented by: Pantoprazole Sodium (Pantoprazole 40 Mg Tab) 40 mg PO DAILY [facility] Stop: 05/11/21 08:59 Last Admin: 04/17/21 08:19 Dose: 40 mg Documented by: Polyethylene Glycol (Polyethylene (Miralax) 17 Gm Pack) 17 gm PO DAILY PRN PRN Reason: Constipation Stop: 05/11/21 16:59 Last Admin: 03/18/21 08:07 Dose: 17 gm Documented by: Polyethylene Glycol (Polyethylene (Miralax) 17 Gm Pack) 17 gm PO DAILY PRN PRN Reason: Constipation Stop: 05/14/21 04:42 Potassium Chloride (Potassium Chloride 10 Meq Tabcr) 10 meq PO BID [facility] Stop: 05/11/21 20:59 Last Admin: 04/17/21 08:19 Dose: 10 meq Documented by: Risperidone (Risperidone 0.5 Mg Tablet) 0.5 mg PO BIDM [facility] Stop: 05/14/21 16:59 Last Admin: 04/17/21 08:20 Dose: 0.5 mg Documented by: Senna/Docusate Sodium (Docusate Sodium/Senna 50/8.6mg Tab) 1 tab PO QAM [facility] Stop: 05/14/21 04:44 Last Admin: 04/17/21 08:20 Dose: 1 tab Documented by: Sumatriptan Succinate (Sumatriptan Succinate 25 Mg Tab) 25 mg PO DAILY PRN PRN Reason: Migraine Headache Stop: 05/08/21 10:18 Last Admin: 04/11/21 13:14 Dose: 25 mg Documented by: Tramadol HCl (Tramadol Hcl 50 Mg Tablet) 50 mg PO Q8@0000,0800,1600 [facility] Stop: 05/15/21 16:59 Last Admin: 04/17/21 08:18 Dose: 50 mg Documented by: Zolpidem Tartrate (Zolpidem Tartrate 5 Mg Tab) 5 mg PO HS [facility] Stop: 05/02/21 20:59 Last Admin: 04/16/21 21:29 Dose: 5 mg Documented by:
[2021-04-17] MEDS: FERROUS SULFATE 325 MG TAB PO SCH (11:07)
[2021-04-17] MEDS: HYDROCODONE/ACETAMOPHEN 5/325MG TAB PO SCH ×2 (11:07→17:06)
[2021-04-17] MEDS: PROMETHAZINE HCL 12.5 MG in SODIUM CHLORIDE 0.9% 50 ML IV PRN (15:38)
[2021-04-17] MEDS: SUMAtriptan succinate 25 MG TAB PO PRN (19:59)
[2021-04-17] MEDS ORDERED: METOPROLOL TARTRATE 25 MG TAB PO SCH (21:00)
[2021-04-17] MEDS: ENOXAPARIN INJ 40 MG/0.4 ML SYR SQ SCH (21:52)
[2021-04-17] MEDS: ZOLPIDEM TARTRATE 5 MG TAB PO SCH (21:52)
[2021-04-17] MEDS: lamoTRIgine 25 MG TAB PO SCH (21:53)
[2021-04-17] MEDS: METOPROLOL TARTRATE 25 MG TAB PO SCH (21:53)
[2021-04-17] MEDS: EZETIMIBE 10 MG TABLET PO SCH (21:53)
[2021-04-18] MEDS: DICLOFENAC SOD 1% GEL 100 GM TUBE EXT SCH ×5 (00:26→23:28)
[2021-04-18] MEDS: ACETAMINOPHEN 500 MG TAB PO SCH ×4 (00:26→23:29)
[2021-04-18 01:07] LABS: Hematocrit (blood only) 35.2 % (37-47); Hemoglobin 11.4 g/dL (12.0-16.0); Mean Corpuscular Hgb Conc 32.4 g/dL (32-36); Mean Corpuscular Volume 86.5 fL (80-100); Mean Platelet Volume 9.3 fL (7.4-10.4); Platelet Count 259 K/uL (130-400); RDW Standard Deviation 44.7 fL (36.4-46.3); Red Blood Count 4.07 M/uL (4.2-5.4); White Blood Count 7.23 K/uL (4.8-10.8)
[2021-04-18 01:23] LABS: BUN Creatinine Ratio 23.9 (10-20); Blood Urea Nitrogen 13 mg/dl (7-18); Carbon Dioxide 29 mmol/L (21-32); Chloride 102 mmol/L (98-107); Est GFR (African American) 106.3 ml/min; Est GFR (Non-African American) 91.8 ml/min; Glucose 104 mg/dl (70-99); Potassium 3.7 mmol/L (3.5-5.1); Sodium 136 mmol/L (136-145)
[2021-04-18 01:27] LABS: Troponin I < 0.015 ng/ml (0-0.045)
[2021-04-18] MEDS: HYDROCODONE/ACETAMOPHEN 5/325MG TAB PO SCH ×3 (01:55→18:25)
[2021-04-18] MEDS: amLODIPine BESYLATE 5 MG TAB PO SCH (09:02)
[2021-04-18] MEDS: POTASSIUM CHLORIDE 10 MEQ TABCR PO SCH ×2 (09:02→21:59)
[2021-04-18] MEDS: risperiDONE 0.5 MG TABLET PO SCH (09:02)
[2021-04-18] MEDS: LACTASE 3000 UNIT TAB PO SCH ×3 (09:03→16:09)
[2021-04-18] MEDS: ADVANCED PROBIOTIC 1250 MG CAPSULE PO SCH (09:03)
[2021-04-18] MEDS: GABAPENTIN 100 MG CAP PO SCH ×3 (09:03→21:58)
[2021-04-18] MEDS: CARBIDOPA/LEVODOPA 25/100MG TAB PO SCH ×3 (09:04→21:58)
[2021-04-18] MEDS: PANTOprazole 40 MG TAB PO SCH (09:04)
[2021-04-18] MEDS: ASPIRIN 81 MG ECTAB PO SCH (09:04)
[2021-04-18] MEDS: LIDOCAINE 5% 1 PATCH TD SCH (09:04)
[2021-04-18] MEDS: METOPROLOL TARTRATE 25 MG TAB PO SCH ×2 (09:04→21:58)
[2021-04-18] MEDS: DOCUSATE SODIUM/SENNA 50/8.6MG TAB PO SCH (09:04)
[2021-04-18] MEDS: FERROUS SULFATE 325 MG TAB PO SCH (12:07)
--- NOTE | 2021-04-18 12:20 | Psychiatric Progress Note ---
Date of Service April 18, 2021 Impression / Recommendations Impression 76 yo female with history of paranoid ideations related to cognitive decline now with superimposed delirium resulting in worsening hallucinations and delusions. Started Risperdal 03/24/21. 04/18/21: worsening delusions/paranoia, ?auditory georges. Plan: update attending that c/o burning at [facility], discussed taper Risperdal in favor of trial of Zyprexa with son given Parkinson's, also that Parkinson's medicine likely perpetuating her psychotic symptoms. Last dose of Risperdal 0.25 mg torrow am. Start Zyprexa 2.5 mg this hs with likely titration. Family aware of metabolic profile and risks in elderly. 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 Maxwell is a 76 yo female from [place], admitted on 03/16/21 for pneumonia and UTI. Consult is by [facility] Hospitalist service for paranoia and hallucinations. Chief Complaint "Hey Candy, the staff here are messing with me". Review of Systems Notes same pain complaints, LUE contracture, states her bangs were bothering her so she clipped them with clippers Subjective Subjective Patient was seen & assessed and interval progress reviewed with son and liaison. The patient is oriented and superficially cooperative with staff but has various delusions about being listened to, that she is being monitored via her phone by a staff member named Manolo or Huber. These are occurring throughout the day, not just and she appears more bradykinetic. Physical Exam Psychiatric Orientation: alert, oriented x 3 and cooperative Apperance: appropriately groomed Eye Contact: good eye contact Motor Behavior: no abnormal motor movements Affect: + constricted affect Mood: + depressed mood Thought Process: + circumstantial thought process; + thought process not clear or coherent Thought Content: + paranoid Suicidal Thoughts: denies suicidal thoughts Homicidal Thoughts: denies homicidal thoughts Hallucinations: no auditory hallucinations and no visual hallucinations Cognition: attention grossly intact and language grossly intact Insight: + impaired insight Judgement: + impaired judgement Vital Signs (Past 24 Hours) Last Vital Signs Temp 36.7 C 04/18/21 08:16 Pulse 58 L 04/18/21 08:16 Resp 19 04/18/21 08:16 BP 133/79 04/18/21 08:16 Pulse Ox 95 04/18/21 08:16 Results & Data ([facility]) Laboratory Results Laboratory Results - last 24 hr 04/17/21 04/18/21 04/18/21 19:08 00:56 00:56 WBC 7.23 RBC 4.07 L Hgb 11.4 L Hct 35.2 L MCV 86.5 MCH 28.0 MCHC 32.4 RDW Std Deviation 44.7 RDW Coeff of Tsering 14.0 Plt Count 259 MPV 9.3 Sodium 136 Potassium 3.7 Chloride 102 Carbon Dioxide 29 Anion Gap 5.0 BUN 13 Creatinine 0.55 L Est Cr Clr Drug Dosing 85.0 Est GFR ( Amer) 106.3 Est GFR (Non-Af Amer) 91.8 BUN/Creatinine Ratio 23.9 H Glucose 104 H Calcium 9.0 Troponin I < 0.015 < 0.015 04/18/21 07:24 WBC RBC Hgb Hct MCV MCH MCHC RDW Std Deviation RDW Coeff of Tsering Plt Count MPV Sodium Potassium Chloride Carbon Dioxide Anion Gap BUN Creatinine Est Cr Clr Drug Dosing Est GFR ( Amer) Est GFR (Non-Af Amer) BUN/Creatinine Ratio Glucose Calcium Troponin I < 0.015 Current Inpatient Medications Current Inpatient Medications: Current Inpatient Medications Acetaminophen (Acetaminophen 500 Mg Tab) 1,000 mg PO Q8@0000,0800,1600 [facility] Stop: 05/15/21 16:59 Last Admin: 04/18/21 09:03 Dose: 1,000 mg Documented by: Hydrocodone Bitart/Acetaminophen (Hydrocodone/Acetamophen 5/325mg Tab) 1 tab PO Q8H [facility] Stop: 05/01/21 10:29 Last Admin: 04/18/21 09:06 Dose: 1 tab Documented by: Albuterol (Albuterol 0.5% Neb Soln 2.5 Mg/0.5 Ml Vial) 2.5 mg NEB Q6R PRN PRN Reason: wheezing, SOB Stop: 05/11/21 17:17 Last Admin: 04/01/21 21:09 Dose: 2.5 mg Documented by: Albuterol (Albut/Ipratrop 3mg/0.5mg Neb 3 Ml Vial) 3 ml NEB Q4R PRN PRN Reason: Shortness Of Breath Or Wheezing Stop: 05/11/21 10:48 Last Admin: 03/28/21 11:17 Dose: 3 ml Documented by: Amlodipine Besylate (Amlodipine Besylate 5 Mg Tab) 5 mg PO QAM [facility] Stop: 05/11/21 12:14 Last Admin: 04/18/21 09:02 Dose: 5 mg Documented by: Aspirin (Aspirin 81 Mg Ectab) 81 mg PO DAILY [facility] Stop: 05/11/21 08:59 Last Admin: 04/18/21 09:04 Dose: 81 mg Documented by: Carbidopa/Levodopa (Carbidopa/Levodopa 25/100mg Tab) 1 tab PO TID [facility] Stop: 05/11/21 20:59 Last Admin: 04/18/21 09:04 Dose: 1 tab Documented by: Diclofenac Sodium (Diclofenac Sod 1% Gel 100 Gm Tube) 2 gm EXT Q6 [facility] Stop: 05/11/21 15:29 Last Admin: 04/18/21 12:07 Dose: 2 gm Documented by: Docusate Sodium (Docusate Sodium 100 Mg Cap) 100 mg PO DAILY PRN PRN Reason: Constipation Stop: 05/11/21 16:59 Last Admin: 04/06/21 02:36 Dose: 100 mg Documented by: Ezetimibe (Ezetimibe 10 Mg Tablet) 10 mg PO HS [facility] Stop: 05/11/21 20:59 Last Admin: 04/17/21 21:53 Dose: 10 mg Documented by: Enoxaparin Sodium (Enoxaparin Inj 40 Mg/0.4 Ml Syr) 40 mg SQ Q24H [facility] Stop: 05/11/21 16:59 Last Admin: 04/17/21 21:52 Dose: 40 mg Documented by: Ferrous Sulfate (Ferrous Sulfate 325 Mg Tab) 325 mg PO DAILY@1100 [facility] Stop: 05/11/21 10:59 Last Admin: 04/18/21 12:07 Dose: 325 mg Documented by: Gabapentin (Gabapentin 100 Mg Cap) 200 mg PO TID [facility] Stop: 05/11/21 20:59 Last Admin: 04/18/21 09:03 Dose: 200 mg Documented by: Haloperidol Lactate (Haloperidol Lactate 5 Mg/Ml 1 Ml Vial) 1 mg IV Q6 PRN PRN Reason: Anxiety/Agitation Stop: 04/23/21 12:15 Promethazine HCl 12.5 mg/ (Sodium Chloride) 50.5 mls @ 202 mls/hr IV Q6H PRN PRN Reason: Nausea And Vomiting Stop: 05/11/21 20:07 Last Infusion: 04/17/21 19:58 Dose: Infused Documented by: Lactase (Lactase 3000 Unit Tab) 3,000 units PO AC [facility] Stop: 05/11/21 16:59 Last Admin: 04/18/21 12:07 Dose: 3,000 units Documented by: Lactobacillus Acidoph/Casei/Rhamnos (Advanced Probiotic 1250 Mg Capsule) 2 cap PO DAILY [facility] Stop: 05/11/21 14:29 Last Admin: 04/18/21 09:03 Dose: 2 cap Documented by: Lamotrigine (Lamotrigine 25 Mg Tab) 75 mg PO [facility] Stop: 05/11/21 20:59 Last Admin: 04/17/21 21:53 Dose: 75 mg Documented by: Lidocaine (Lidocaine 5% 1 Patch) 1 patch TD DAILY [facility] Stop: 05/11/21 08:59 Last Admin: 04/18/21 09:04 Dose: 1 patch Documented by: Metoprolol Tartrate (Metoprolol Tartrate 25 Mg Tab) 25 mg PO BID [facility] Stop: 05/17/21 20:24 Last Admin: 04/18/21 09:04 Dose: Not Given Documented by: Miscellaneous (Remove Lidoderm Patch) 1 ea N/A [facility] Stop: 05/11/21 20:59 Last Admin: 04/17/21 21:54 Dose: 1 ea Documented by: Pantoprazole Sodium (Pantoprazole 40 Mg Tab) 40 mg PO DAILY [facility] Stop: 05/11/21 08:59 Last Admin: 04/18/21 09:04 Dose: 40 mg Documented by: Polyethylene Glycol (Polyethylene (Miralax) 17 Gm Pack) 17 gm PO DAILY PRN PRN Reason: Constipation Stop: 05/11/21 16:59 Last Admin: 03/18/21 08:07 Dose: 17 gm Documented by: Polyethylene Glycol (Polyethylene (Miralax) 17 Gm Pack) 17 gm PO DAILY PRN PRN Reason: Constipation Stop: 05/14/21 04:42 Potassium Chloride (Potassium Chloride 10 Meq Tabcr) 10 meq PO BID [facility] Stop: 05/11/21 20:59 Last Admin: 04/18/21 09:02 Dose: 10 meq Documented by: Risperidone (Risperidone 0.5 Mg Tablet) 0.5 mg PO BIDM [facility] Stop: 05/14/21 16:59 Last Admin: 04/18/21 09:02 Dose: 0.5 mg Documented by: Senna/Docusate Sodium (Docusate Sodium/Senna 50/8.6mg Tab) [facility] Stop: 05/14/21 04:44 Last Admin: 04/18/21 09:04 Dose: 1 tab Documented by: Sumatriptan Succinate (Sumatriptan Succinate 25 Mg Tab) 25 mg PO DAILY PRN PRN Reason: Migraine Headache Stop: 05/08/21 10:18 Last Admin: 04/17/21 19:59 Dose: 25 mg Documented by: Zolpidem Tartrate (Zolpidem Tartrate 5 Mg Tab) 5 mg PO [facility] Stop: 05/02/21 20:59 Last Admin: 04/17/21 21:52 Dose: 5 mg Documented by:
[2021-04-18 13:36] LABS: Hematocrit (blood only) 37.9 % (37-47); Hemoglobin 12.2 g/dL (12.0-16.0); Mean Corpuscular Hgb Conc 32.2 g/dL (32-36); Mean Corpuscular Volume 86.9 fL (80-100); Mean Platelet Volume 9.6 fL (7.4-10.4); Platelet Count 266 K/uL (130-400); RDW Coefficient of Variation 14.1 % (11.5-14.5); RDW Standard Deviation 45.3 fL (36.4-46.3); Red Blood Count 4.36 M/uL (4.2-5.4); White Blood Count 7.62 K/uL (4.8-10.8)
[2021-04-18 14:01] LABS: BUN Creatinine Ratio 27.8 (10-20); Calcium 9.2 mg/dl (8.5-10.1); Creatinine Clr Calc Pharmacy 79.3 ml/min; Est GFR (African American) 103.9 ml/min; Est GFR (Non-African American) 89.7 ml/min; Magnesium 1.5 mg/dl (1.8-2.4); Phosphorus 3.7 mg/dl (2.5-4.9); Potassium 4.1 mmol/L (3.5-5.1)
--- NOTE | 2021-04-18 14:51 | Hospitalist Progress Note ---
Date of Service April 18, 2021 Assessment & Plan (1) Pneumonia: (2) Catheter-associated urinary tract infection: Plan: This is a 76-year-old female with PMH Parkinson's, Zmffzvg-Urajy-Vljyl disease, HTN, HLD, history of TIA, CKD stage III, chronic Romeo catheter with recurrent UTIs, wheelchair-bound, multiple lower extremity surgeries, who presented to the ED for evaluation of shortness of breath and wheezing. Being managed for the following: Delirium, Paranoia, hallucinations -Pt w/ hx of paranoid ideations related to cognitive decline now with superimposed delirium -Patient became more confused and was yelling and calling 911 on her cell phone and her family -Psychiatry consulted, stable on risperdal 0.5mg bid, ambien started 04/18 -continues to hallucinations, worsening delusions/paranoia, ?auditory georges. Plan per psychiatry: Taper Risperdal in favor of trial of Zyprexa. Last dose of Risperdal 0.25 mg tomorrow am. Start Zyprexa 2.5 mg this hs with likely titration. Family aware of metabolic profile and risks in elderly. Chest pain - resolved -Developed chest pain on 03/27 and was transferred to [facility] with telemetry -Troponin negative x2, EKG nonischemic -Reproducible on exam, likely musculoskeletal in nature -Another episode of chest pain on 04/06 evening, EKG and troponin unremarkable Chronic Diastolic CHF pt with episode of decompensated CHF while hospitalized, now resolved -Echo 03/21/2021 -EF 55-60%, grade 2 diastolic dysfunction 03/14 CXR: Mild pulmonary edema. Possible small left pleural effusion 03/14 IV dose of Lasix 03/28 IV Lasix x 1 dose euvolemic today, daily weights TIA Patient was a stroke alert overnight (03/20-03/21) Likely TIA - involving the right hemisphere with left facial droop yet on imaging has no evidence for a completed event Head and neck CTA, brain MRI unremarkable for acute findings Neurology consulted, input appreciated Do not have sufficient evidence to recommend adding Plavix to her aspirin but will observe her for recurrent events and if they do enlarge then certainly would add another antiplatelet agent Recommend to continue aspirin 81 mg daily, and 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 Fields Pneumonia Has bibasilar infiltration more on the right could be secondary to aspiration versus HCAP Initial lactic acid 3.2---> 1.9, no other signs of sepsis. MRSA screen negative Zosyn 03/12 --> change to Augmentin 03/14 -->Levaquin 03/15 d/t E.cloacae and E. coli in UCx --> stop date 03/19 Blood cultures negative Has had speech evaluation Recommended aspiration precaution during feeding - If the condition persist will need to have a formal barium swallow No fever and no chills CAUTI:Chronic indwelling Romeo catheter History of recurrent UTIs. Patient overdue for follow-up with urology---> Alexandrea BETANCOURT to arrange for outpatient follow-up for management of her chronic Romeo UA was suggestive of infection, 03/12 urine culture Enterobacter cloacae and E. coli Off antibiotics, finished levaquin 04/18 - reports burning at Romeo site We will obtain UA, CBC BMP. WBC is normal CMT (Ufgpmgf-Lxewc-Wcoob disease): S/p multiple lower extremity procedures, most recently s/p left knee closed reduction total knee arthroplasty subluxation on 02/16/2021 - patient is to remain nonweightbearing of the left lower extremity and limited weightbearing on the right lower extremity changed tramdol to hydrocodone Abnormal Left ankle XR Patient complaining of multiple joint pain, more on the left leg 03/15 x-ray left ankle: A 1.8 cm linear ossific density posterior to the talus may represent an avulsion fracture from the dorsal calcaneus. Clinical correlation will be essential. Orthopedic consulted for left calcaneal superior posterior avulsion fracture status post fall: High tide walking boot removed, replaced with a dorsiflexion splint with a negative relief under the left heel and lambs wool padding to provide essentially neutral support for neutral dorsiflexion of the left ankle and heel and foot. Orthopedic recommending may use the walking boot for transfers or ambulating and wheelchair as necessary. Follow-up with outpatient orthopedics. Dr. Crain, [facility]. Pt requesting repeat xray L ankle and also requesting R ankle due to pain - ordered, unchanged, follow up with Dr. Crain. Parkinson disease: Continue carbidopa-levodopa Chronic pain: Continue home regimen DVT prophylaxis: SQ Lovenox Disposition:Medically stable; awaiting placement. Case management following. Admission and Anticipated Discharge Date Admission Date: March 12, 2021 Subjective Pt seen in follow-up of delirium, UTI and pneumonia. Awaiting Placement. Currently laying in bed in NAD, reports no complaints except for hand pain (pt has contractures). Per psychiatry/ staff, pt continues to have hallucinations and complained of burning sensation at Romeo site Review of Systems Review of Systems: All systems reviewed & are unremarkable except as noted in Subjective Physical Exam Physical Exam: Gen: WD/WN, F, chronically ill appearing, NAD, A&O x3 HEENT: Normocephalic, atraumatic, sclerae anicteric, mucous membranes moist. Lung: Clear to Auscultation bilaterally, no wheezes/rales/rhonchi Heart: Regular rate, regular rhythm, no murmurs, rubs, or gallops Abdomen: Soft, NT, ND +BS x 4 Extremities: LLE brace in place Skin: Warm, no rash, negative turgor. : +Romeo cath Psych: flat affect Results & Data Results & Data ([facility]) Vital Signs (Past 12 Hours) Vital Signs Temp Pulse Resp BP Pulse Ox 04/18/21 14:22 36.6 C 70 19 121/71 97 04/18/21 08:16 36.7 C 58 L 19 133/79 95 Laboratory Results 04/18/21 04/18/21 04/18/21 Range/Units 13:13 13:13 07:24 WBC 7.62 (4.8-10.8) K/uL RBC 4.36 (4.2-5.4) M/uL Hgb 12.2 (12.0-16.0) g/dL Hct 37.9 (37-47) % MCV 86.9 (80-100) fL MCH 28.0 (25-34) pg MCHC 32.2 (32-36) g/dL RDW Std Deviation 45.3 (36.4-46.3) fL RDW Coeff of Tsering 14.1 (11.5-14.5) % Plt Count 266 (130-400) K/uL MPV 9.6 (7.4-10.4) fL Sodium 135 L (136-145) mmol/L Potassium 4.1 (3.5-5.1) mmol/L Chloride 103 (98-107) mmol/L Carbon Dioxide 25 (21-32) mmol/L Anion Gap 7.0 (3-11) BUN 17 (7-18) mg/dl Creatinine 0.59 L (0.6-1.2) mg/dl Est Cr Clr Drug Dosing 79.3 ml/min Est GFR ( Amer) 103.9 ml/min Est GFR (Non-Af Amer) 89.7 ml/min BUN/Creatinine Ratio 27.8 H (10-20) Glucose 130 H (70-99) mg/dl Calcium 9.2 (8.5-10.1) mg/dl Phosphorus 3.7 (2.5-4.9) mg/dl Magnesium 1.5 L (1.8-2.4) mg/dl Troponin I < 0.015 (0-0.045) ng/ml 04/18/21 04/18/21 04/17/21 Range/Units 00:56 00:56 19:08 WBC 7.23 (4.8-10.8) K/uL RBC 4.07 L (4.2-5.4) M/uL Hgb 11.4 L (12.0-16.0) g/dL Hct 35.2 L (37-47) % MCV 86.5 (80-100) fL MCH 28.0 (25-34) pg MCHC 32.4 (32-36) g/dL RDW Std Deviation 44.7 (36.4-46.3) fL RDW Coeff of Tsering 14.0 (11.5-14.5) % Plt Count 259 (130-400) K/uL MPV 9.3 (7.4-10.4) fL Sodium 136 (136-145) mmol/L Potassium 3.7 (3.5-5.1) mmol/L Chloride 102 (98-107) mmol/L Carbon Dioxide 29 (21-32) mmol/L Anion Gap 5.0 (3-11) BUN 13 (7-18) mg/dl Creatinine 0.55 L (0.6-1.2) mg/dl Est Cr Clr Drug Dosing 85.0 ml/min Est GFR ( Amer) 106.3 ml/min Est GFR (Non-Af Amer) 91.8 ml/min BUN/Creatinine Ratio 23.9 H (10-20) Glucose 104 H (70-99) mg/dl Calcium 9.0 (8.5-10.1) mg/dl Phosphorus (2.5-4.9) mg/dl Magnesium (1.8-2.4) mg/dl Troponin I < 0.015 < 0.015 (0-0.045) ng/ml Medications Administered Current Inpatient Medications Acetaminophen (Acetaminophen 500 Mg Tab) 1,000 mg PO Q8@0000,0800,1600 [facility] Stop: 05/15/21 16:59 Last Admin: 04/18/21 09:03 Dose: 1,000 mg Documented by: Hydrocodone Bitart/Acetaminophen (Hydrocodone/Acetamophen 5/325mg Tab) 1 tab PO Q8H [facility] Stop: 05/01/21 10:29 Last Admin: 04/18/21 09:06 Dose: 1 tab Documented by: Albuterol (Albuterol 0.5% Neb Soln 2.5 Mg/0.5 Ml Vial) 2.5 mg NEB Q6R PRN PRN Reason: wheezing, SOB Stop: 05/11/21 17:17 Last Admin: 04/01/21 21:09 Dose: 2.5 mg Documented by: Albuterol (Albut/Ipratrop 3mg/0.5mg Neb 3 Ml Vial) 3 ml NEB Q4R PRN PRN Reason: Shortness Of Breath Or Wheezing Stop: 05/11/21 10:48 Last Admin: 03/28/21 11:17 Dose: 3 ml Documented by: Amlodipine Besylate (Amlodipine Besylate 5 Mg Tab) 5 mg PO QAM [facility] Stop: 05/11/21 12:14 Last Admin: 04/18/21 09:02 Dose: 5 mg Documented by: Aspirin (Aspirin 81 Mg Ectab) 81 mg PO DAILY [facility] Stop: 05/11/21 08:59 Last Admin: 04/18/21 09:04 Dose: 81 mg Documented by: Carbidopa/Levodopa (Carbidopa/Levodopa 25/100mg Tab) 1 tab PO TID [facility] Stop: 05/11/21 20:59 Last Admin: 04/18/21 09:04 Dose: 1 tab Documented by: Diclofenac Sodium (Diclofenac Sod 1% Gel 100 Gm Tube) 2 gm EXT Q6 [facility] Stop: 05/11/21 15:29 Last Admin: 12/22/21 12:07 Dose: 2 gm Documented by: Docusate Sodium (Docusate Sodium 100 Mg Cap) 100 mg PO DAILY PRN PRN Reason: Constipation Stop: 05/11/21 16:59 Last Admin: 04/06/21 02:36 Dose: 100 mg Documented by: Ezetimibe (Ezetimibe 10 Mg Tablet) 10 mg PO HS [facility] Stop: 05/11/21 20:59 Last Admin: 04/17/21 21:53 Dose: 10 mg Documented by: Enoxaparin Sodium (Enoxaparin Inj 40 Mg/0.4 Ml Syr) 40 mg SQ Q24H [facility] Stop: 05/11/21 16:59 Last Admin: 04/17/21 21:52 Dose: 40 mg Documented by: Ferrous Sulfate (Ferrous Sulfate 325 Mg Tab) 325 mg PO DAILY@1100 [facility] Stop: 05/11/21 10:59 Last Admin: 04/18/21 12:07 Dose: 325 mg Documented by: Gabapentin (Gabapentin 100 Mg Cap) 200 mg PO TID [facility] Stop: 05/11/21 20:59 Last Admin: 04/18/21 09:03 Dose: 200 mg Documented by: Haloperidol Lactate (Haloperidol Lactate 5 Mg/Ml 1 Ml Vial) 1 mg IV Q6 PRN PRN Reason: Anxiety/Agitation Stop: 04/23/21 12:15 Promethazine HCl 12.5 mg/ (Sodium Chloride) 50.5 mls @ 202 mls/hr IV Q6H PRN PRN Reason: Nausea And Vomiting Stop: 05/11/21 20:07 Last Infusion: 04/17/21 19:58 Dose: Infused Documented by: Magnesium Sulfate/Dextrose (Magnesium Sulfate / D5w) 1 gm in 100 mls @ 50 mls/hr IV ONE ONE Stop: 04/18/21 16:50 Lactase (Lactase 3000 Unit Tab) 3,000 units PO AC [facility] Stop: 05/11/21 16:59 Last Admin: 04/18/21 12:07 Dose: 3,000 units Documented by: Lactobacillus Acidoph/Casei/Rhamnos (Advanced Probiotic 1250 Mg Capsule) 2 cap PO DAILY [facility] Stop: 05/11/21 14:29 Last Admin: 04/18/21 09:03 Dose: 2 cap Documented by: Lamotrigine (Lamotrigine 25 Mg Tab) 75 mg PO HS [facility] Stop: 05/11/21 20:59 Last Admin: 04/17/21 21:53 Dose: 75 mg Documented by: Lidocaine (Lidocaine 5% 1 Patch) 1 patch TD DAILY [facility] Stop: 05/11/21 08:59 Last Admin: 04/18/21 09:04 Dose: 1 patch Documented by: Magnesium Oxide (Magnesium Oxide 400 Mg Tab) 400 mg PO BID [facility] Stop: 05/18/21 20:59 Metoprolol Tartrate (Metoprolol Tartrate 25 Mg Tab) 25 mg PO BID [facility] Stop: 05/17/21 20:24 Last Admin: 04/18/21 09:04 Dose: Not Given Documented by: Miscellaneous (Remove Lidoderm Patch) 1 ea N/A [facility] Stop: 05/11/21 20:59 Last Admin: 04/17/21 21:54 Dose: 1 ea Documented by: Olanzapine (Olanzapine 2.5 Mg Tab) 2.5 mg PO [facility] Stop: 05/18/21 20:59 Pantoprazole Sodium (Pantoprazole 40 Mg Tab) 40 mg PO DAILY [facility] Stop: 05/11/21 08:59 Last Admin: 04/18/21 09:04 Dose: 40 mg Documented by: Polyethylene Glycol (Polyethylene (Miralax) 17 Gm Pack) 17 gm PO DAILY PRN PRN Reason: Constipation Stop: 05/11/21 16:59 Last Admin: 03/18/21 08:07 Dose: 17 gm Documented by: Polyethylene Glycol (Polyethylene (Miralax) 17 Gm Pack) 17 gm PO DAILY PRN PRN Reason: Constipation Stop: 05/14/21 04:42 Potassium Chloride (Potassium Chloride 10 Meq Tabcr) 10 meq PO BID [facility] Stop: 05/11/21 20:59 Last Admin: 04/18/21 09:02 Dose: 10 meq Documented by: Risperidone (Risperidone 0.5 Mg Tablet) 0.25 mg PO QAM [facility] Stop: 04/19/21 09:01 Senna/Docusate Sodium (Docusate Sodium/Senna 50/8.6mg Tab) 1 tab PO QAM [facility] Stop: 05/14/21 04:44 Last Admin: 04/18/21 09:04 Dose: 1 tab Documented by: Sumatriptan Succinate (Sumatriptan Succinate 25 Mg Tab) 25 mg PO DAILY PRN PRN Reason: Migraine Headache Stop: 05/08/21 10:18 Last Admin: 04/17/21 19:59 Dose: 25 mg Documented by: Zolpidem Tartrate (Zolpidem Tartrate 5 Mg Tab) 5 mg PO HS [facility] Stop: 05/02/21 20:59 Last Admin: 04/17/21 21:52 Dose: 5 mg Documented by:
[2021-04-18] MEDS ORDERED: MAGNESIUM SULFATE / D5W 1 GM/100 ML BAG IV ONE (15:15)
[2021-04-18 15:30] LABS: Appearance Urine Clear (Clear); Bacteria Urine Automated 1+ (Negative); Bilirubin Urine Negative (Negative); Blood Urine Trace (Negative); Color Urine Yellow; Glucose Urine UA Negative (Negative); Ketones Urine Negative (Negative); Leukocyte Esterase Urine 3+ (Negative); Nitrite Urine Negative (Negative); Protein Urine Negative (Negative); Specific Gravity Urine 1.013 (1.000-1.030); Urobilinogen Urine Negative (Negative); WBC Urine Automated >30 /hpf (0-5); pH Urine 5.5 (4.5-7.5)
[2021-04-18] MEDS: ENOXAPARIN INJ 40 MG/0.4 ML SYR SQ SCH (21:56)
[2021-04-18] MEDS: ZOLPIDEM TARTRATE 5 MG TAB PO SCH (21:56)
[2021-04-18] MEDS: lamoTRIgine 25 MG TAB PO SCH (21:57)
[2021-04-18] MEDS: MAGNESIUM OXIDE 400 MG TAB PO SCH (21:58)
[2021-04-18] MEDS: EZETIMIBE 10 MG TABLET PO SCH (21:58)
[2021-04-18] MEDS: OLANZAPINE 2.5 MG TAB PO SCH (21:58)
[2021-04-19] MEDS: HYDROCODONE/ACETAMOPHEN 5/325MG TAB PO SCH ×3 (01:58→17:29)
[2021-04-19] MEDS: DICLOFENAC SOD 1% GEL 100 GM TUBE EXT SCH ×3 (05:43→17:29)
--- NOTE | 2021-04-19 06:44 | Hospitalist Progress Note ---
Date of Service April 19, 2021 Assessment & Plan (1) Pneumonia: (2) Catheter-associated urinary tract infection: Plan: This is a 76-year-old female with PMH Parkinson's, Ywmfsnt-Tzdtw-Lgbug disease, HTN, HLD, history of TIA, CKD stage III, chronic Romeo catheter with recurrent UTIs, wheelchair-bound, multiple lower extremity surgeries, who presented to the ED for evaluation of shortness of breath and wheezing. Being managed for the following: Delirium, Paranoia, hallucinations -Pt w/ hx of paranoid ideations related to cognitive decline now with superimposed delirium -Patient became more confused and was yelling and calling 911 on her cell phone and her family -Psychiatry consulted, stable on risperdal 0.5mg bid, ambien started 04/18 -continues to hallucinations, worsening delusions/paranoia, ?auditory georges. Plan per psychiatry: Taper Risperdal in favor of trial of Zyprexa. Last dose of Risperdal 0.25 mg tomorrow am. Start Zyprexa 2.5 mg this hs with likely titration. Family aware of metabolic profile and risks in elderly. Chest pain - resolved -Developed chest pain on 03/27 and was transferred to [facility] with telemetry -Troponin negative x2, EKG nonischemic -Reproducible on exam, likely musculoskeletal in nature -Another episode of chest pain on 04/06 evening, EKG and troponin unremarkable Chronic Diastolic CHF pt with episode of decompensated CHF while hospitalized, now resolved -Echo 03/21/2021 -EF 55-60%, grade 2 diastolic dysfunction 03/14 CXR: Mild pulmonary edema. Possible small left pleural effusion 03/14 IV dose of Lasix 03/28 IV Lasix x 1 dose euvolemic today, daily weights TIA Patient was a stroke alert overnight (03/20-03/21) Likely TIA - involving the right hemisphere with left facial droop yet on imaging has no evidence for a completed event Head and neck CTA, brain MRI unremarkable for acute findings Neurology consulted, input appreciated Do not have sufficient evidence to recommend adding Plavix to her aspirin but will observe her for recurrent events and if they do enlarge then certainly would add another antiplatelet agent Recommend to continue aspirin 81 mg daily, and 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 Fields Pneumonia Has bibasilar infiltration more on the right could be secondary to aspiration versus HCAP Initial lactic acid 3.2---> 1.9, no other signs of sepsis. MRSA screen negative Zosyn 03/12 --> change to Augmentin 03/14 -->Levaquin 03/15 d/t E.cloacae and E. coli in UCx --> stop date 03/19 Blood cultures negative Has had speech evaluation Recommended aspiration precaution during feeding - If the condition persist will need to have a formal barium swallow No fever and no chills CAUTI:Chronic indwelling Romeo catheter History of recurrent UTIs. Patient overdue for follow-up with urology---> Alexandrea BETANCOURT to arrange for outpatient follow-up for management of her chronic Romeo UA was suggestive of infection, 03/12 urine culture Enterobacter cloacae and E. coli Off antibiotics, finished levaquin 04/18 - reports burning at Romeo site Obtained UA, CBC BMP. WBC is normal CMT (Peiybrk-Xwpro-Nuica disease): S/p multiple lower extremity procedures, most recently s/p left knee closed reduction total knee arthroplasty subluxation on 02/16/2021 - patient is to remain nonweightbearing of the left lower extremity and limited weightbearing on the right lower extremity changed tramadol to hydrocodone Abnormal Left ankle XR Patient complaining of multiple joint pain, more on the left leg 03/15 x-ray left ankle: A 1.8 cm linear ossific density posterior to the talus may represent an avulsion fracture from the dorsal calcaneus. Clinical correlation will be essential. Orthopedic consulted for left calcaneal superior posterior avulsion fracture status post fall: High tide walking boot removed, replaced with a dorsiflexion splint with a negative relief under the left heel and lambs wool padding to provide essentially neutral support for neutral dorsiflexion of the left ankle and heel and foot. Orthopedic recommending may use the walking boot for transfers or ambulating and wheelchair as necessary. Follow-up with outpatient orthopedics. Dr. Crain, [facility]. Pt requesting repeat xray L ankle and also requesting R ankle due to pain - ordered, unchanged, follow up with Dr. Crain. Parkinson disease: Continue carbidopa-levodopa Chronic pain: Continue home regimen DVT prophylaxis: SQ Lovenox Disposition:Medically stable; awaiting placement. Case management following. Admission and Anticipated Discharge Date Admission Date: March 12, 2021 Subjective Pt seen in follow-up of delirium, UTI and pneumonia. Awaiting Placement. Currently laying in bed in NAD, reports no complaints Per psychiatry/ staff, pt continues to have hallucinations and complained of burning sensation at Romeo site - UA was obtained Review of Systems Review of Systems: All systems reviewed & are unremarkable except as noted in Subjective Physical Exam Physical Exam: Gen: WD/WN, F, chronically ill appearing, NAD, A&O x3 HEENT: Normocephalic, atraumatic, sclerae anicteric, mucous membranes moist. Lung: Clear to Auscultation bilaterally, no wheezes/rales/rhonchi Heart: Regular rate, regular rhythm, no murmurs, rubs, or gallops Abdomen: Soft, NT, ND +BS x 4 Extremities: LLE brace in place Skin: Warm, no rash, negative turgor. : +Romeo cath Psych: flat affect Results & Data Results & Data ([facility]) Vital Signs (Past 12 Hours) Vital Signs Temp Pulse Resp BP Pulse Ox 04/18/21 22:59 36.5 C 68 16 126/67 95 Medications Administered Current Inpatient Medications Acetaminophen (Acetaminophen 500 Mg Tab) 1,000 mg PO Q8@0000,0800,1600 [facility] Stop: 05/15/21 16:59 Last Admin: 04/18/21 23:29 Dose: 1,000 mg Documented by: Hydrocodone Bitart/Acetaminophen (Hydrocodone/Acetamophen 5/325mg Tab) 1 tab PO Q8H [facility] Stop: 05/01/21 10:29 Last Admin: 04/19/21 01:58 Dose: 1 tab Documented by: Albuterol (Albuterol 0.5% Neb Soln 2.5 Mg/0.5 Ml Vial) 2.5 mg NEB Q6R PRN PRN Reason: wheezing, SOB Stop: 05/11/21 17:17 Last Admin: 04/01/21 21:09 Dose: 2.5 mg Documented by: Albuterol (Albut/Ipratrop 3mg/0.5mg Neb 3 Ml Vial) 3 ml NEB Q4R PRN PRN Reason: Shortness Of Breath Or Wheezing Stop: 05/11/21 10:48 Last Admin: 03/28/21 11:17 Dose: 3 ml Documented by: Amlodipine Besylate (Amlodipine Besylate 5 Mg Tab) 5 mg PO QAM [facility] Stop: 05/11/21 12:14 Last Admin: 04/18/21 09:02 Dose: 5 mg Documented by: Aspirin (Aspirin 81 Mg Ectab) 81 mg PO DAILY [facility] Stop: 05/11/21 08:59 Last Admin: 04/18/21 09:04 Dose: 81 mg Documented by: Carbidopa/Levodopa (Carbidopa/Levodopa 25/100mg Tab) 1 tab PO TID [facility] Stop: 05/11/21 20:59 Last Admin: 04/18/21 21:58 Dose: 1 tab Documented by: Diclofenac Sodium (Diclofenac Sod 1% Gel 100 Gm Tube) 2 gm EXT Q6 [facility] Stop: 05/11/21 15:29 Last Admin: 04/19/21 05:43 Dose: Not Given Documented by: Docusate Sodium (Docusate Sodium 100 Mg Cap) 100 mg PO DAILY PRN PRN Reason: Constipation Stop: 05/11/21 16:59 Last Admin: 04/06/21 02:36 Dose: 100 mg Documented by: Ezetimibe (Ezetimibe 10 Mg Tablet) 10 mg PO HS [facility] Stop: 05/11/21 20:59 Last Admin: 04/18/21 21:58 Dose: 10 mg Documented by: Enoxaparin Sodium (Enoxaparin Inj 40 Mg/0.4 Ml Syr) 40 mg SQ Q24H [facility] Stop: 05/11/21 16:59 Last Admin: 04/18/21 21:56 Dose: 40 mg Documented by: Ferrous Sulfate (Ferrous Sulfate 325 Mg Tab) 325 mg PO DAILY@1100 [facility] Stop: 05/11/21 10:59 Last Admin: 04/18/21 12:07 Dose: 325 mg Documented by: Gabapentin (Gabapentin 100 Mg Cap) 200 mg PO TID [facility] Stop: 05/11/21 20:59 Last Admin: 04/18/21 21:58 Dose: 200 mg Documented by: Haloperidol Lactate (Haloperidol Lactate 5 Mg/Ml 1 Ml Vial) 1 mg IV Q6 PRN PRN Reason: Anxiety/Agitation Stop: 04/23/21 12:15 Promethazine HCl 12.5 mg/ (Sodium Chloride) 50.5 mls @ 202 mls/hr IV Q6H PRN PRN Reason: Nausea And Vomiting Stop: 05/11/21 20:07 Last Infusion: 04/17/21 19:58 Dose: Infused Documented by: Lactase (Lactase 3000 Unit Tab) 3,000 units PO AC [facility] Stop: 05/11/21 16:59 Last Admin: 04/18/21 16:09 Dose: 3,000 units Documented by: Lactobacillus Acidoph/Casei/Rhamnos (Advanced Probiotic 1250 Mg Capsule) 2 cap PO DAILY [facility] Stop: 05/11/21 14:29 Last Admin: 04/18/21 09:03 Dose: 2 cap Documented by: Lamotrigine (Lamotrigine 25 Mg Tab) 75 mg PO HS [facility] Stop: 05/11/21 20:59 Last Admin: 04/18/21 21:57 Dose: 75 mg Documented by: Lidocaine (Lidocaine 5% 1 Patch) 1 patch TD DAILY [facility] Stop: 05/11/21 08:59 Last Admin: 04/18/21 09:04 Dose: 1 patch Documented by: Magnesium Oxide (Magnesium Oxide 400 Mg Tab) 400 mg PO BID [facility] Stop: 05/18/21 20:59 Last Admin: 04/18/21 21:58 Dose: 400 mg Documented by: Metoprolol Tartrate (Metoprolol Tartrate 25 Mg Tab) 25 mg PO BID [facility] Stop: 05/17/21 20:24 Last Admin: 04/18/21 21:58 Dose: 25 mg Documented by: Miscellaneous (Remove Lidoderm Patch) 1 ea N/A [facility] Stop: 05/11/21 20:59 Last Admin: 04/18/21 21:59 Dose: 1 ea Documented by: Olanzapine (Olanzapine 2.5 Mg Tab) 2.5 mg PO HS [facility] Stop: 05/18/21 20:59 Last Admin: 04/18/21 21:58 Dose: 2.5 mg Documented by: Pantoprazole Sodium (Pantoprazole 40 Mg Tab) 40 mg PO DAILY [facility] Stop: 05/11/21 08:59 Last Admin: 04/18/21 09:04 Dose: 40 mg Documented by: Polyethylene Glycol (Polyethylene (Miralax) 17 Gm Pack) 17 gm PO DAILY PRN PRN Reason: Constipation Stop: 05/11/21 16:59 Last Admin: 03/18/21 08:07 Dose: 17 gm Documented by: Polyethylene Glycol (Polyethylene (Miralax) 17 Gm Pack) 17 gm PO DAILY PRN PRN Reason: Constipation Stop: 05/14/21 04:42 Potassium Chloride (Potassium Chloride 10 Meq Tabcr) 10 meq PO BID [facility] Stop: 05/11/21 20:59 Last Admin: 04/18/21 21:59 Dose: 10 meq Documented by: Risperidone (Risperidone 0.5 Mg Tablet) 0.25 mg PO QAM [facility] Stop: 04/19/21 09:01 Senna/Docusate Sodium (Docusate Sodium/Senna 50/8.6mg Tab) 1 tab PO QAM [facility] Stop: 05/14/21 04:44 Last Admin: 04/18/21 09:04 Dose: 1 tab Documented by: Sumatriptan Succinate (Sumatriptan Succinate 25 Mg Tab) 25 mg PO DAILY PRN PRN Reason: Migraine Headache Stop: 05/08/21 10:18 Last Admin: 04/17/21 19:59 Dose: 25 mg Documented by: Zolpidem Tartrate (Zolpidem Tartrate 5 Mg Tab) 5 mg PO HS [facility] Stop: 05/02/21 20:59 Last Admin: 04/18/21 21:56 Dose: 5 mg Documented by:
[2021-04-19] MEDS: ADVANCED PROBIOTIC 1250 MG CAPSULE PO SCH (08:39)
[2021-04-19] MEDS: METOPROLOL TARTRATE 25 MG TAB PO SCH ×2 (08:40→21:12)
[2021-04-19] MEDS: POTASSIUM CHLORIDE 10 MEQ TABCR PO SCH ×2 (08:40→21:09)
[2021-04-19] MEDS: DOCUSATE SODIUM/SENNA 50/8.6MG TAB PO SCH (08:40)
[2021-04-19] MEDS: amLODIPine BESYLATE 5 MG TAB PO SCH (08:40)
[2021-04-19] MEDS: CARBIDOPA/LEVODOPA 25/100MG TAB PO SCH ×3 (08:40→21:10)
[2021-04-19] MEDS: GABAPENTIN 100 MG CAP PO SCH ×3 (08:40→21:10)
[2021-04-19] MEDS: PANTOprazole 40 MG TAB PO SCH (08:40)
[2021-04-19] MEDS: LACTASE 3000 UNIT TAB PO SCH ×3 (08:41→17:29)
[2021-04-19] MEDS: LIDOCAINE 5% 1 PATCH TD SCH (08:41)
[2021-04-19] MEDS: MAGNESIUM OXIDE 400 MG TAB PO SCH ×2 (08:41→21:10)
[2021-04-19] MEDS: ASPIRIN 81 MG ECTAB PO SCH (08:41)
[2021-04-19] MEDS ORDERED: risperiDONE 0.5 MG TABLET PO SCH (09:00)
[2021-04-19] MEDS: ACETAMINOPHEN 500 MG TAB PO SCH ×2 (09:47→17:18)
--- NOTE | 2021-04-19 10:00 | Electrocardiogram Report ---
Test Reason : Blood Pressure : / mmHG Vent. Rate : 077 BPM Atrial Rate : 077 BPM P-R Int : 188 ms QRS Dur : 086 ms QT Int : 374 ms P-R-T Axes : 067 -06 013 degrees QTc Int : 423 ms Normal sinus rhythm Low voltage QRS Nonspecific ST abnormality Abnormal ECG When compared with ECG of 06-APR-2021 19:36, Borderline criteria for Anterolateral infarct are no longer Present Confirmed by Saw Ctoto ([id number]) on 04/19/2021 10:00:30 AM Referred By: REFERRED SELF Confirmed By:Saw Cotto
[2021-04-19] MEDS: FERROUS SULFATE 325 MG TAB PO SCH (11:16)
[2021-04-19] MEDS ORDERED: oxyCODONE HCL IR 5 MG TAB (IMMEDIATE RELEASE) PO STA (20:49)
[2021-04-19] MEDS: ZOLPIDEM TARTRATE 5 MG TAB PO SCH (21:07)
[2021-04-19] MEDS: OLANZAPINE 2.5 MG TAB PO SCH (21:08)
[2021-04-19] MEDS: lamoTRIgine 25 MG TAB PO SCH (21:08)
[2021-04-19] MEDS: EZETIMIBE 10 MG TABLET PO SCH (21:11)
[2021-04-19] MEDS: ENOXAPARIN INJ 40 MG/0.4 ML SYR SQ SCH (21:12)
[2021-04-20] MEDS: ACETAMINOPHEN 500 MG TAB PO SCH ×3 (00:14→16:37)
[2021-04-20] MEDS: DICLOFENAC SOD 1% GEL 100 GM TUBE EXT SCH ×4 (00:16→18:14)
[2021-04-20] MEDS: HYDROCODONE/ACETAMOPHEN 5/325MG TAB PO SCH ×3 (02:04→18:14)
[2021-04-20] MEDS: ASPIRIN 81 MG ECTAB PO SCH (08:19)
[2021-04-20] MEDS: PANTOprazole 40 MG TAB PO SCH (08:19)
[2021-04-20] MEDS: CARBIDOPA/LEVODOPA 25/100MG TAB PO SCH ×3 (08:19→20:17)
[2021-04-20] MEDS: amLODIPine BESYLATE 5 MG TAB PO SCH (08:19)
[2021-04-20] MEDS: POTASSIUM CHLORIDE 10 MEQ TABCR PO SCH ×2 (08:19→20:17)
[2021-04-20] MEDS: DOCUSATE SODIUM/SENNA 50/8.6MG TAB PO SCH (08:19)
[2021-04-20] MEDS: LACTASE 3000 UNIT TAB PO SCH ×3 (08:19→16:54)
[2021-04-20] MEDS: METOPROLOL TARTRATE 25 MG TAB PO SCH ×2 (08:20→20:38)
[2021-04-20] MEDS: GABAPENTIN 100 MG CAP PO SCH ×3 (08:20→20:18)
[2021-04-20] MEDS: ADVANCED PROBIOTIC 1250 MG CAPSULE PO SCH (08:20)
[2021-04-20] MEDS: MAGNESIUM OXIDE 400 MG TAB PO SCH ×2 (08:20→20:18)
[2021-04-20 08:36] LABS: KPC Carbapenemase NOT DETECTED (NotDetected); NDM Carbapenemase NOT DETECTED (NotDetected)
[2021-04-20] MEDS ORDERED: MEROPENEM CONSULT ACTIVE PRN (08:50)
[2021-04-20] MEDS ORDERED: MEROPENEM 500 MG in SYRINGE 0 ML IV ONE (10:00)
[2021-04-20] MEDS: LIDOCAINE 5% 1 PATCH TD SCH (10:20)
[2021-04-20] MEDS: FERROUS SULFATE 325 MG TAB PO SCH (10:41)
--- NOTE | 2021-04-20 12:17 | Psychiatric Progress Note ---
Date of Service April 20, 2021 Impression / Recommendations Impression 76 yo female with history of paranoid ideations related to cognitive decline now with superimposed delirium resulting in worsening hallucinations and delusions. Started Risperdal 03/24/21 which was then cross-tapered to olanzapine due to worsening bradykinesia and parkinsonism side effects. 04/20/21: continues to have delusions/paranoia, auditory georges of staff talking about her. Tolerating zyprexa so far without signs of EPS. Plan: Continue with zyprexa 2.5 mg qhs will consider further titration in coming days based on tolerance. 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 Maxwell is a 76 yo female from [place], admitted on 03/16/21 for pneumonia and UTI. [facility] for paranoia and hallucinations. Chief Complaint "The staff are talking about me in the halls". Review of Systems Notes see subjective. Chronic pain in LUE and legs. Subjective Subjective Patient was seen & assessed and interval progress reviewed. Cross-taper completed and now on olanzapine and risperidone stopped. Reports fair sleep and good appetite. Remains concerned about staff "gossiping" about her in the halls. States she hears them saying "Alissa bunny" and " Feast or famine" which upsets her. Reassured her no one is talking negatively about her but she is unable to reality-test this. No side effects reported from olanzapine. Physical Exam Psychiatric Orientation: alert, oriented x 3, oriented to person, oriented to place, oriented to time and cooperative Apperance: appropriately dressed and appropriately groomed Eye Contact: good eye contact Motor Behavior: no abnormal motor movements; n EPS Speech: normal rate/rhythm/volume of speech Affect: + constricted affect Mood: + anxious mood Thought Process: + circumstantial thought process, + looseness of associations and + perseveration Thought Content: + paranoid and + delusions Suicidal Thoughts: denies suicidal thoughts Homicidal Thoughts: denies homicidal thoughts Hallucinations: + auditory hallucinations (hears staff talking about her in the halls); no visual hallucinations Cognition: recent memory grossly intact, remote memory grossly intact, attention grossly intact and language grossly intact Estimated Intelligence: consistent with education level Insight: + impaired insight Judgement: + impaired judgement Vital Signs (Past 24 Hours) Last Vital Signs Temp 36.7 C 04/20/21 09:01 Pulse 59 L 04/20/21 09:01 Resp 18 04/20/21 09:01 BP 136/76 04/20/21 09:01 Pulse Ox 97 04/20/21 09:01 Results & Data ([facility]) Laboratory Results Laboratory Results - last 24 hr 04/20/21 07:29 IMP Carbapenemase (KVNG) NOT DETECTED KPC Carbapenemase (KVNG) NOT DETECTED NDM Carbapenemase (KVNG) NOT DETECTED OXA Carbapenemase (KVNG) NOT DETECTED VIM Carbapenemase (KVNG) NOT DETECTED Current Inpatient Medications Current Inpatient Medications: Current Inpatient Medications Acetaminophen (Acetaminophen 500 Mg Tab) 500 mg PO Q8@0000,0800,1600 [facility] Stop: 05/19/21 15:59 Last Admin: 04/20/21 08:16 Dose: 500 mg Documented by: Hydrocodone Bitart/Acetaminophen (Hydrocodone/Acetamophen 5/325mg Tab) 1 tab PO Q8H [facility] Stop: 05/01/21 10:29 Last Admin: 04/20/21 10:41 Dose: 1 tab Documented by: Albuterol (Albuterol 0.5% Neb Soln 2.5 Mg/0.5 Ml Vial) 2.5 mg NEB Q6R PRN PRN Reason: wheezing, SOB Stop: 05/11/21 17:17 Last Admin: 04/01/21 21:09 Dose: 2.5 mg Documented by: Albuterol (Albut/Ipratrop 3mg/0.5mg Neb 3 Ml Vial) 3 ml NEB Q4R PRN PRN Reason: Shortness Of Breath Or Wheezing Stop: 05/11/21 10:48 Last Admin: 03/28/21 11:17 Dose: 3 ml Documented by: Amlodipine Besylate (Amlodipine Besylate 5 Mg Tab) 5 mg PO QAM [facility] Stop: 05/11/21 12:14 Last Admin: 04/20/21 08:19 Dose: 5 mg Documented by: Aspirin (Aspirin 81 Mg Ectab) 81 mg PO DAILY [facility] Stop: 05/11/21 08:59 Last Admin: 04/20/21 08:19 Dose: 81 mg Documented by: Carbidopa/Levodopa (Carbidopa/Levodopa 25/100mg Tab) 1 tab PO TID [facility] Stop: 05/11/21 20:59 Last Admin: 04/20/21 08:19 Dose: 1 tab Documented by: Diclofenac Sodium (Diclofenac Sod 1% Gel 100 Gm Tube) 2 gm EXT Q6 [facility] Stop: 05/11/21 15:29 Last Admin: 04/20/21 06:25 Dose: Not Given Documented by: Docusate Sodium (Docusate Sodium 100 Mg Cap) 100 mg PO DAILY PRN PRN Reason: Constipation Stop: 05/11/21 16:59 Last Admin: 04/06/21 02:36 Dose: 100 mg Documented by: Ezetimibe (Ezetimibe 10 Mg Tablet) 10 mg PO HS [facility] Stop: 05/11/21 20:59 Last Admin: 04/19/21 21:11 Dose: 10 mg Documented by: Enoxaparin Sodium (Enoxaparin Inj 40 Mg/0.4 Ml Syr) 40 mg SQ Q24H [facility] Stop: 05/11/21 16:59 Last Admin: 04/19/21 21:12 Dose: 40 mg Documented by: Ferrous Sulfate (Ferrous Sulfate 325 Mg Tab) 325 mg PO DAILY@1100 [facility] Stop: 05/11/21 10:59 Last Admin: 04/20/21 10:41 Dose: 325 mg Documented by: Gabapentin (Gabapentin 100 Mg Cap) 200 mg PO TID [facility] Stop: 05/11/21 20:59 Last Admin: 04/20/21 08:20 Dose: 200 mg Documented by: Haloperidol Lactate (Haloperidol Lactate 5 Mg/Ml 1 Ml Vial) 1 mg IV Q6 PRN PRN Reason: Anxiety/Agitation Stop: 04/23/21 12:15 Promethazine HCl 12.5 mg/ (Sodium Chloride) 50.5 mls @ 202 mls/hr IV Q6H PRN PRN Reason: Nausea And Vomiting Stop: 05/11/21 20:07 Last Infusion: 04/17/21 19:58 Dose: Infused Documented by: Meropenem 500 mg/ Syringe 10 mls @ 2 mls/min IV Q6H [facility]; Protocol Stop: 04/30/21 08:59 Lactase (Lactase 3000 Unit Tab) 3,000 units PO AC [facility] Stop: 05/11/21 16:59 Last Admin: 04/20/21 08:19 Dose: 3,000 units Documented by: Lactobacillus Acidoph/Casei/Rhamnos (Advanced Probiotic 1250 Mg Capsule) 2 cap PO DAILY [facility] Stop: 05/11/21 14:29 Last Admin: 04/20/21 08:20 Dose: 2 cap Documented by: Lamotrigine (Lamotrigine 25 Mg Tab) 75 mg PO HS [facility] Stop: 05/11/21 20:59 Last Admin: 04/19/21 21:08 Dose: 75 mg Documented by: Lidocaine (Lidocaine 5% 1 Patch) 1 patch TD DAILY [facility] Stop: 05/11/21 08:59 Last Admin: 04/20/21 10:20 Dose: 1 patch Documented by: Magnesium Oxide (Magnesium Oxide 400 Mg Tab) 400 mg PO BID [facility] Stop: 05/18/21 20:59 Last Admin: 04/20/21 08:20 Dose: 400 mg Documented by: Metoprolol Tartrate (Metoprolol Tartrate 25 Mg Tab) 25 mg PO BID [facility] Stop: 05/17/21 20:24 Last Admin: 04/20/21 08:20 Dose: 25 mg Documented by: Miscellaneous (Remove Lidoderm Patch) 1 ea N/A [facility] Stop: 05/11/21 20:59 Last Admin: 04/19/21 21:22 Dose: Not Given Documented by: Miscellaneous Information (Meropenem Consult Active) 1 ea N/A UD PRN PRN Reason: Consult Stop: 05/20/21 08:49 Olanzapine (Olanzapine 2.5 Mg Tab) 2.5 mg PO [facility] Stop: 05/18/21 20:59 Last Admin: 04/19/21 21:08 Dose: 2.5 mg Documented by: Pantoprazole Sodium (Pantoprazole 40 Mg Tab) 40 mg PO DAILY [facility] Stop: 05/11/21 08:59 Last Admin: 04/20/21 08:19 Dose: 40 mg Documented by: Polyethylene Glycol (Polyethylene (Miralax) 17 Gm Pack) 17 gm PO DAILY PRN PRN Reason: Constipation Stop: 05/11/21 16:59 Last Admin: 03/18/21 08:07 Dose: 17 gm Documented by: Polyethylene Glycol (Polyethylene (Miralax) 17 Gm Pack) 17 gm PO DAILY PRN PRN Reason: Constipation Stop: 05/14/21 04:42 Potassium Chloride (Potassium Chloride 10 Meq Tabcr) 10 meq PO BID [facility] Stop: 05/11/21 20:59 Last Admin: 04/20/21 08:19 Dose: 10 meq Documented by: Senna/Docusate Sodium (Docusate Sodium/Senna 50/8.6mg Tab) 1 tab PO QAM [facility] Stop: 05/14/21 04:44 Last Admin: 04/20/21 08:19 Dose: 1 tab Documented by: Sumatriptan Succinate (Sumatriptan Succinate 25 Mg Tab) 25 mg PO DAILY PRN PRN Reason: Migraine Headache Stop: 05/08/21 10:18 Last Admin: 04/17/21 19:59 Dose: 25 mg Documented by: Zolpidem Tartrate (Zolpidem Tartrate 5 Mg Tab) 5 mg PO HS [facility] Stop: 05/02/21 20:59 Last Admin: 04/19/21 21:07 Dose: 5 mg Documented by:
--- NOTE | 2021-04-20 13:59 | Hospitalist Progress Note ---
Date of Service April 20, 2021 Assessment & Plan (1) Pneumonia: (2) Catheter-associated urinary tract infection: Plan: This is a 76-year-old female with PMH Parkinson's, Sekivok-Qetbw-Thdje disease, HTN, HLD, history of TIA, CKD stage III, chronic Romeo catheter with recurrent UTIs, wheelchair-bound, multiple lower extremity surgeries, who presented to the ED for evaluation of shortness of breath and wheezing. Being managed for the following: Delirium, Paranoia, hallucinations -Pt w/ hx of paranoid ideations related to cognitive decline now with superimposed delirium -Patient became more confused and was yelling and calling 911 on her cell phone and her family -Psychiatry consulted, stable on risperdal 0.5mg bid, ambien started 04/18 -continues to hallucinations, worsening delusions/paranoia, ?auditory georges. Plan per psychiatry: Taper Risperdal in favor of trial of Zyprexa. Family aware of metabolic profile and risks in elderly. Currently on Zyprexa 2.5 nightly Chest pain - resolved -Developed chest pain on 03/27 and was transferred to [facility] with telemetry -Troponin negative x2, EKG nonischemic -Reproducible on exam, likely musculoskeletal in nature -Another episode of chest pain on 04/06 evening, EKG and troponin unremarkable Chronic Diastolic CHF pt with episode of decompensated CHF while hospitalized, now resolved -Echo 03/21/2021 -EF 55-60%, grade 2 diastolic dysfunction 03/14 CXR: Mild pulmonary edema. Possible small left pleural effusion 03/14 IV dose of Lasix 03/28 IV Lasix x 1 dose euvolemic today, daily weights TIA Patient was a stroke alert overnight (03/20-03/21) Likely TIA - involving the right hemisphere with left facial droop yet on imaging has no evidence for a completed event Head and neck CTA, brain MRI unremarkable for acute findings Neurology consulted, input appreciated Do not have sufficient evidence to recommend adding Plavix to her aspirin but will observe her for recurrent events and if they do enlarge then certainly would add another antiplatelet agent Recommend to continue aspirin 81 mg daily, and 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 Fields Pneumonia Has bibasilar infiltration more on the right could be secondary to aspiration versus HCAP Initial lactic acid 3.2---> 1.9, no other signs of sepsis. MRSA screen negative Zosyn 03/12 --> change to Augmentin 03/14 -->Levaquin 03/15 d/t E.cloacae and E. coli in UCx --> stop date 03/19 Blood cultures negative Has had speech evaluation Recommended aspiration precaution during feeding - If the condition persist will need to have a formal barium swallow No fever and no chills CAUTI:Chronic indwelling Romeo catheter History of recurrent UTIs. Patient overdue for follow-up with urology---> Alexandrea BETANCOURT to arrange for outpatient follow-up for management of her chronic Romeo UA was suggestive of infection, 03/12 urine culture Enterobacter cloacae and E. coli Off antibiotics, finished levaquin 04/18 - reports burning at Romeo site Obtained UA - abnormal - possible colonization U cultx -Enterobacter cloacea -multidrug-resistant, started meropenem. Plan to discuss further with urology and ID. CBC BMP. WBC is normal CMT (Uggzeaz-Apjms-Pymdo disease): S/p multiple lower extremity procedures, most recently s/p left knee closed reduction total knee arthroplasty subluxation on 02/16/2021 - patient is to remain nonweightbearing of the left lower extremity and limited weightbearing on the right lower extremity changed tramadol to hydrocodone Abnormal Left ankle XR Patient complaining of multiple joint pain, more on the left leg 03/15 x-ray left ankle: A 1.8 cm linear ossific density posterior to the talus may represent an avulsion fracture from the dorsal calcaneus. Clinical correlation will be essential. Orthopedic consulted for left calcaneal superior posterior avulsion fracture status post fall: High tide walking boot removed, replaced with a dorsiflexion splint with a negative relief under the left heel and lambs wool padding to provide essentially neutral support for neutral dorsiflexion of the left ankle and heel and foot. Orthopedic recommending may use the walking boot for transfers or ambulating and wheelchair as necessary. Follow-up with outpatient orthopedics. Dr. Crain, [facility] [place]. Pt requesting repeat xray L ankle and also requesting R ankle due to pain - ordered, unchanged, follow up with Dr. Crain. Parkinson disease: Continue carbidopa-levodopa Chronic pain: Continue home regimen DVT prophylaxis: SQ Lovenox Disposition:Medically stable; awaiting placement. Case management following. Admission and Anticipated Discharge Date Admission Date: March 12, 2021 Subjective Pt seen in follow-up of delirium, UTI and pneumonia. Awaiting Placement. Currently laying in bed in NAD, reports no complaints Per psychiatry/ staff, pt continues to have hallucinations Reported burning at the Romeo site, therefore UA repeated and patient started on antibiotic, will further discuss with urology and/or ID Review of Systems Review of Systems: All systems reviewed & are unremarkable except as noted in Subjective Physical Exam Physical Exam: Gen: WD/WN, F, chronically ill appearing, NAD, A&O x3 HEENT: Normocephalic, atraumatic, sclerae anicteric, mucous membranes moist. Lung: Clear to Auscultation bilaterally, no wheezes/rales/rhonchi Heart: Regular rate, regular rhythm, no murmurs, rubs, or gallops Abdomen: Soft, NT, ND +BS x 4 Extremities: LLE brace in place Skin: Warm, no rash, negative turgor. : +Romeo cath Psych: flat affect Results & Data Results & Data ([facility]) Vital Signs (Past 12 Hours) Vital Signs Temp Pulse Resp BP Pulse Ox 04/20/21 09:01 36.7 C 59 L 18 136/76 97 Medications Administered Current Inpatient Medications Acetaminophen (Acetaminophen 500 Mg Tab) 500 mg PO Q8@0000,0800,1600 [facility] Stop: 05/19/21 15:59 Last Admin: 04/20/21 08:16 Dose: 500 mg Documented by: Hydrocodone Bitart/Acetaminophen (Hydrocodone/Acetamophen 5/325mg Tab) 1 tab PO Q8H [facility] Stop: 05/01/21 10:29 Last Admin: 04/20/21 10:41 Dose: 1 tab Documented by: Albuterol (Albuterol 0.5% Neb Soln 2.5 Mg/0.5 Ml Vial) 2.5 mg NEB Q6R PRN PRN Reason: wheezing, SOB Stop: 05/11/21 17:17 Last Admin: 04/01/21 21:09 Dose: 2.5 mg Documented by: Albuterol (Albut/Ipratrop 3mg/0.5mg Neb 3 Ml Vial) 3 ml NEB Q4R PRN PRN Reason: Shortness Of Breath Or Wheezing Stop: 05/11/21 10:48 Last Admin: 03/28/21 11:17 Dose: 3 ml Documented by: Amlodipine Besylate (Amlodipine Besylate 5 Mg Tab) 5 mg PO QAM [facility] Stop: 05/11/21 12:14 Last Admin: 04/20/21 08:19 Dose: 5 mg Documented by: Aspirin (Aspirin 81 Mg Ectab) 81 mg PO DAILY [facility] Stop: 05/11/21 08:59 Last Admin: 04/20/21 08:19 Dose: 81 mg Documented by: Carbidopa/Levodopa (Carbidopa/Levodopa 25/100mg Tab) 1 tab PO TID [facility] Stop: 05/11/21 20:59 Last Admin: 04/20/21 08:19 Dose: 1 tab Documented by: Diclofenac Sodium (Diclofenac Sod 1% Gel 100 Gm Tube) 2 gm EXT Q6 [facility] Stop: 05/11/21 15:29 Last Admin: 04/20/21 12:33 Dose: 2 gm Documented by: Docusate Sodium (Docusate Sodium 100 Mg Cap) 100 mg PO DAILY PRN PRN Reason: Constipation Stop: 05/11/21 16:59 Last Admin: 04/06/21 02:36 Dose: 100 mg Documented by: Ezetimibe (Ezetimibe 10 Mg Tablet) 10 mg PO HS [facility] Stop: 05/11/21 20:59 Last Admin: 04/19/21 21:11 Dose: 10 mg Documented by: Enoxaparin Sodium (Enoxaparin Inj 40 Mg/0.4 Ml Syr) 40 mg SQ Q24H [facility] Stop: 05/11/21 16:59 Last Admin: 04/19/21 21:12 Dose: 40 mg Documented by: Ferrous Sulfate (Ferrous Sulfate 325 Mg Tab) 325 mg PO DAILY@1100 [facility] Stop: 05/11/21 10:59 Last Admin: 04/20/21 10:41 Dose: 325 mg Documented by: Gabapentin (Gabapentin 100 Mg Cap) 200 mg PO TID [facility] Stop: 05/11/21 20:59 Last Admin: 04/20/21 08:20 Dose: 200 mg Documented by: Haloperidol Lactate (Haloperidol Lactate 5 Mg/Ml 1 Ml Vial) 1 mg IV Q6 PRN PRN Reason: Anxiety/Agitation Stop: 04/23/21 12:15 Promethazine HCl 12.5 mg/ (Sodium Chloride) 50.5 mls @ 202 mls/hr IV Q6H PRN PRN Reason: Nausea And Vomiting Stop: 05/11/21 20:07 Last Infusion: 04/17/21 19:58 Dose: Infused Documented by: Meropenem 500 mg/ Syringe 10 mls @ 2 mls/min IV Q6H [facility]; Protocol Stop: 04/30/21 08:59 Lactase (Lactase 3000 Unit Tab) 3,000 units PO AC [facility] Stop: 05/11/21 16:59 Last Admin: 04/20/21 12:33 Dose: 3,000 units Documented by: Lactobacillus Acidoph/Casei/Rhamnos (Advanced Probiotic 1250 Mg Capsule) 2 cap PO DAILY [facility] Stop: 05/11/21 14:29 Last Admin: 04/20/21 08:20 Dose: 2 cap Documented by: Lamotrigine (Lamotrigine 25 Mg Tab) 75 mg PO [facility] Stop: 05/11/21 20:59 Last Admin: 04/19/21 21:08 Dose: 75 mg Documented by: Lidocaine (Lidocaine 5% 1 Patch) 1 patch TD DAILY [facility] Stop: 05/11/21 08:59 Last Admin: 04/20/21 10:20 Dose: 1 patch Documented by: Magnesium Oxide (Magnesium Oxide 400 Mg Tab) 400 mg PO BID [facility] Stop: 05/18/21 20:59 Last Admin: 04/20/21 08:20 Dose: 400 mg Documented by: Metoprolol Tartrate (Metoprolol Tartrate 25 Mg Tab) 25 mg PO BID [facility] Stop: 05/17/21 20:24 Last Admin: 04/20/21 08:20 Dose: 25 mg Documented by: Miscellaneous (Remove Lidoderm Patch) 1 ea N/A [facility] Stop: 05/11/21 20:59 Last Admin: 04/19/21 21:22 Dose: Not Given Documented by: Miscellaneous Information (Meropenem Consult Active) 1 ea N/A UD PRN PRN Reason: Consult Stop: 05/20/21 08:49 Olanzapine (Olanzapine 2.5 Mg Tab) 2.5 mg PO [facility] Stop: 05/18/21 20:59 Last Admin: 04/19/21 21:08 Dose: 2.5 mg Documented by: Pantoprazole Sodium (Pantoprazole 40 Mg Tab) 40 mg PO DAILY [facility] Stop: 05/11/21 08:59 Last Admin: 04/20/21 08:19 Dose: 40 mg Documented by: Polyethylene Glycol (Polyethylene (Miralax) 17 Gm Pack) 17 gm PO DAILY PRN PRN Reason: Constipation Stop: 05/11/21 16:59 Last Admin: 03/18/21 08:07 Dose: 17 gm Documented by: Polyethylene Glycol (Polyethylene (Miralax) 17 Gm Pack) 17 gm PO DAILY PRN PRN Reason: Constipation Stop: 05/14/21 04:42 Potassium Chloride (Potassium Chloride 10 Meq Tabcr) 10 meq PO BID [facility] Stop: 05/11/21 20:59 Last Admin: 04/20/21 08:19 Dose: 10 meq Documented by: Senna/Docusate Sodium (Docusate Sodium/Senna 50/8.6mg Tab) 1 tab PO QAM [facility] Stop: 05/14/21 04:44 Last Admin: 04/20/21 08:19 Dose: 1 tab Documented by: Sumatriptan Succinate (Sumatriptan Succinate 25 Mg Tab) 25 mg PO DAILY PRN PRN Reason: Migraine Headache Stop: 05/08/21 10:18 Last Admin: 04/17/21 19:59 Dose: 25 mg Documented by: Zolpidem Tartrate (Zolpidem Tartrate 5 Mg Tab) 5 mg PO HS [facility] Stop: 05/02/21 20:59 Last Admin: 04/19/21 21:07 Dose: 5 mg Documented by:
[2021-04-20] MEDS: MEROPENEM 500 MG in SYRINGE 0 ML IV SCH ×2 (16:55→22:00)
[2021-04-20] MEDS: EZETIMIBE 10 MG TABLET PO SCH (20:18)
[2021-04-20] MEDS: lamoTRIgine 25 MG TAB PO SCH (20:18)
[2021-04-20] MEDS: OLANZAPINE 2.5 MG TAB PO SCH (20:18)
[2021-04-20] MEDS: ENOXAPARIN INJ 40 MG/0.4 ML SYR SQ SCH (20:38)
[2021-04-20] MEDS: ZOLPIDEM TARTRATE 5 MG TAB PO SCH (22:00)
[2021-04-21] MEDS: ACETAMINOPHEN 500 MG TAB PO SCH ×3 (00:21→17:09)
[2021-04-21] MEDS: DICLOFENAC SOD 1% GEL 100 GM TUBE EXT SCH ×4 (00:21→17:10)
[2021-04-21] MEDS: HYDROCODONE/ACETAMOPHEN 5/325MG TAB PO SCH ×3 (02:20→17:10)
[2021-04-21] MEDS: MEROPENEM 500 MG in SYRINGE 0 ML IV SCH ×4 (04:31→22:08)
--- NOTE | 2021-04-21 07:45 | Hospitalist Progress Note ---
Date of Service April 21, 2021 Assessment & Plan (1) Pneumonia: (2) Catheter-associated urinary tract infection: Plan: This is a 76-year-old female with PMH Parkinson's, Vpkzwos-Gscmz-Scman disease, HTN, HLD, history of TIA, CKD stage III, chronic Romeo catheter with recurrent UTIs, wheelchair-bound, multiple lower extremity surgeries, who presented to the ED for evaluation of shortness of breath and wheezing. Being managed for the following: Delirium, Paranoia, hallucinations -Pt w/ hx of paranoid ideations related to cognitive decline now with superimposed delirium -Patient became more confused and was yelling and calling 911 on her cell phone and her family -Psychiatry consulted, stable on risperdal 0.5mg bid, ambien started 04/18 -continues to hallucinations, worsening delusions/paranoia, ?auditory georges. Plan per psychiatry: Taper Risperdal in favor of trial of Zyprexa. Family aware of metabolic profile and risks in elderly. Currently on Zyprexa 2.5 nightly Chest pain - resolved -Developed chest pain on 03/27 and was transferred to [facility] with telemetry -Troponin negative x2, EKG nonischemic -Reproducible on exam, likely musculoskeletal in nature -Another episode of chest pain on 04/06 evening, EKG and troponin unremarkable Chronic Diastolic CHF pt with episode of decompensated CHF while hospitalized, now resolved -Echo 03/21/2021 -EF 55-60%, grade 2 diastolic dysfunction 03/14 CXR: Mild pulmonary edema. Possible small left pleural effusion 03/14 IV dose of Lasix 03/28 IV Lasix x 1 dose euvolemic today, daily weights TIA Patient was a stroke alert overnight (03/20-03/21) Likely TIA - involving the right hemisphere with left facial droop yet on imaging has no evidence for a completed event Head and neck CTA, brain MRI unremarkable for acute findings Neurology consulted, input appreciated Do not have sufficient evidence to recommend adding Plavix to her aspirin but will observe her for recurrent events and if they do enlarge then certainly would add another antiplatelet agent Recommend to continue aspirin 81 mg daily, and 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 Fields Pneumonia Has bibasilar infiltration more on the right could be secondary to aspiration versus HCAP Initial lactic acid 3.2---> 1.9, no other signs of sepsis. MRSA screen negative Zosyn 03/12 --> change to Augmentin 03/14 -->Levaquin 03/15 d/t E.cloacae and E. coli in UCx --> stop date 03/19 Blood cultures negative Has had speech evaluation Recommended aspiration precaution during feeding - If the condition persist will need to have a formal barium swallow No fever and no chills CAUTI:Chronic indwelling Romeo catheter History of recurrent UTIs. Patient overdue for follow-up with urology---> Alexandrea BETANCOURT to arrange for outpatient follow-up for management of her chronic Romeo UA was suggestive of infection, 03/12 urine culture Enterobacter cloacae and E. coli Off antibiotics, finished levaquin 04/18 - reports burning at Romoe site Obtained UA - abnormal - possible colonization U cultx -Enterobacter cloacea -multidrug-resistant, started meropenem. Plan to discuss further with urology and ID. CBC BMP. WBC is normal CMT (Kgdxxts-Xigoe-Hfjol disease): S/p multiple lower extremity procedures, most recently s/p left knee closed reduction total knee arthroplasty subluxation on 02/16/2021 - patient is to remain nonweightbearing of the left lower extremity and limited weightbearing on the right lower extremity changed tramadol to hydrocodone Abnormal Left ankle XR Patient complaining of multiple joint pain, more on the left leg 03/15 x-ray left ankle: A 1.8 cm linear ossific density posterior to the talus may represent an avulsion fracture from the dorsal calcaneus. Clinical correlation will be essential. Orthopedic consulted for left calcaneal superior posterior avulsion fracture status post fall: High tide walking boot removed, replaced with a dorsiflexion splint with a negative relief under the left heel and lambs wool padding to provide essentially neutral support for neutral dorsiflexion of the left ankle and heel and foot. Orthopedic recommending may use the walking boot for transfers or ambulating and wheelchair as necessary. Follow-up with outpatient orthopedics. Dr. Crain, [facility] [place]. Pt requesting repeat xray L ankle and also requesting R ankle due to pain - ordered, unchanged, follow up with Dr. Crain. Parkinson disease: Continue carbidopa-levodopa Chronic pain: Continue home regimen DVT prophylaxis: SQ Lovenox Disposition:Medically stable; awaiting placement. Case management following. Admission and Anticipated Discharge Date Admission Date: March 12, 2021 Subjective Pt seen in follow-up of delirium, UTI and pneumonia. Awaiting Placement. Currently laying in bed in NAD, reports no complaints Per psychiatry/ staff, pt continues to have hallucinations Reported burning at the Romeo site, therefore UA repeated and patient started on antibiotic, will further discuss with urology and/or ID Review of Systems Review of Systems: All systems reviewed & are unremarkable except as noted in Subjective Physical Exam Physical Exam: Gen: WD/WN, F, chronically ill appearing, NAD, A&O x3 HEENT: Normocephalic, atraumatic, sclerae anicteric, mucous membranes moist. Lung: Clear to Auscultation bilaterally, no wheezes/rales/rhonchi Heart: Regular rate, regular rhythm, no murmurs, rubs, or gallops Abdomen: Soft, NT, ND +BS x 4 Extremities: LLE brace in place Skin: Warm, no rash, negative turgor. : +Romeo cath Psych: flat affect Results & Data Results & Data ([facility]) Vital Signs (Past 12 Hours) Vital Signs Temp Pulse Pulse Resp BP Pulse Ox 04/20/21 23:11 37.2 C 65 18 146/79 H 95 04/20/21 20:37 69 163/79 H Medications Administered Current Inpatient Medications Acetaminophen (Acetaminophen 500 Mg Tab) 500 mg PO Q8@0000,0800,1600 [facility] Stop: 05/19/21 15:59 Last Admin: 04/21/21 00:21 Dose: 500 mg Documented by: Hydrocodone Bitart/Acetaminophen (Hydrocodone/Acetamophen 5/325mg Tab) 1 tab PO Q8H [facility] Stop: 05/01/21 10:29 Last Admin: 04/21/21 02:20 Dose: 1 tab Documented by: Albuterol (Albuterol 0.5% Neb Soln 2.5 Mg/0.5 Ml Vial) 2.5 mg NEB Q6R PRN PRN Reason: wheezing, SOB Stop: 05/11/21 17:17 Last Admin: 04/01/21 21:09 Dose: 2.5 mg Documented by: Albuterol (Albut/Ipratrop 3mg/0.5mg Neb 3 Ml Vial) 3 ml NEB Q4R PRN PRN Reason: Shortness Of Breath Or Wheezing Stop: 05/11/21 10:48 Last Admin: 03/28/21 11:17 Dose: 3 ml Documented by: Amlodipine Besylate (Amlodipine Besylate 5 Mg Tab) 5 mg PO QAM [facility] Stop: 05/11/21 12:14 Last Admin: 04/20/21 08:19 Dose: 5 mg Documented by: Aspirin (Aspirin 81 Mg Ectab) 81 mg PO DAILY [facility] Stop: 05/11/21 08:59 Last Admin: 04/20/21 08:19 Dose: 81 mg Documented by: Carbidopa/Levodopa (Carbidopa/Levodopa 25/100mg Tab) 1 tab PO TID [facility] Stop: 05/11/21 20:59 Last Admin: 04/20/21 20:17 Dose: 1 tab Documented by: Diclofenac Sodium (Diclofenac Sod 1% Gel 100 Gm Tube) 2 gm EXT Q6 [facility] Stop: 05/11/21 15:29 Last Admin: 04/21/21 05:07 Dose: 2 gm Documented by: Docusate Sodium (Docusate Sodium 100 Mg Cap) 100 mg PO DAILY PRN PRN Reason: Constipation Stop: 05/11/21 16:59 Last Admin: 04/06/21 02:36 Dose: 100 mg Documented by: Ezetimibe (Ezetimibe 10 Mg Tablet) 10 mg PO HS [facility] Stop: 05/11/21 20:59 Last Admin: 04/20/21 20:18 Dose: 10 mg Documented by: Enoxaparin Sodium (Enoxaparin Inj 40 Mg/0.4 Ml Syr) 40 mg SQ Q24H [facility] Stop: 05/11/21 16:59 Last Admin: 04/20/21 20:38 Dose: 40 mg Documented by: Ferrous Sulfate (Ferrous Sulfate 325 Mg Tab) 325 mg PO DAILY@1100 [facility] Stop: 05/11/21 10:59 Last Admin: 04/20/21 10:41 Dose: 325 mg Documented by: Gabapentin (Gabapentin 100 Mg Cap) 200 mg PO TID [facility] Stop: 05/11/21 20:59 Last Admin: 04/20/21 20:18 Dose: 200 mg Documented by: Haloperidol Lactate (Haloperidol Lactate 5 Mg/Ml 1 Ml Vial) 1 mg IV Q6 PRN PRN Reason: Anxiety/Agitation Stop: 12/27/21 12:15 Promethazine HCl 12.5 mg/ (Sodium Chloride) 50.5 mls @ 202 mls/hr IV Q6H PRN PRN Reason: Nausea And Vomiting Stop: 05/11/21 20:07 Last Infusion: 04/17/21 19:58 Dose: Infused Documented by: Meropenem 500 mg/ Syringe 10 mls @ 2 mls/min IV Q6H [facility]; Protocol Stop: 04/30/21 08:59 Last Admin: 04/21/21 04:31 Dose: 2 mls/min Documented by: Lactase (Lactase 3000 Unit Tab) 3,000 units PO AC [facility] Stop: 05/11/21 16:59 Last Admin: 04/20/21 16:54 Dose: 3,000 units Documented by: Lactobacillus Acidoph/Casei/Rhamnos (Advanced Probiotic 1250 Mg Capsule) 2 cap PO DAILY [facility] Stop: 05/11/21 14:29 Last Admin: 04/20/21 08:20 Dose: 2 cap Documented by: Lamotrigine (Lamotrigine 25 Mg Tab) 75 mg PO [facility] Stop: 05/11/21 20:59 Last Admin: 04/20/21 20:18 Dose: 75 mg Documented by: Lidocaine (Lidocaine 5% 1 Patch) 1 patch TD DAILY [facility] Stop: 05/11/21 08:59 Last Admin: 04/20/21 10:20 Dose: 1 patch Documented by: Magnesium Oxide (Magnesium Oxide 400 Mg Tab) 400 mg PO BID [facility] Stop: 05/18/21 20:59 Last Admin: 04/20/21 20:18 Dose: 400 mg Documented by: Metoprolol Tartrate (Metoprolol Tartrate 25 Mg Tab) 25 mg PO BID [facility] Stop: 05/17/21 20:24 Last Admin: 04/20/21 20:38 Dose: 25 mg Documented by: Miscellaneous (Remove Lidoderm Patch) 1 ea N/A [facility] Stop: 05/11/21 20:59 Last Admin: 04/20/21 20:38 Dose: 1 ea Documented by: Miscellaneous Information (Meropenem Consult Active) 1 ea N/A UD PRN PRN Reason: Consult Stop: 05/20/21 08:49 Olanzapine (Olanzapine 2.5 Mg Tab) 2.5 mg PO [facility] Stop: 05/18/21 20:59 Last Admin: 04/20/21 20:18 Dose: 2.5 mg Documented by: Pantoprazole Sodium (Pantoprazole 40 Mg Tab) 40 mg PO DAILY [facility] Stop: 05/11/21 08:59 Last Admin: 04/20/21 08:19 Dose: 40 mg Documented by: Polyethylene Glycol (Polyethylene (Miralax) 17 Gm Pack) 17 gm PO DAILY PRN PRN Reason: Constipation Stop: 05/11/21 16:59 Last Admin: 03/18/21 08:07 Dose: 17 gm Documented by: Polyethylene Glycol (Polyethylene (Miralax) 17 Gm Pack) 17 gm PO DAILY PRN PRN Reason: Constipation Stop: 05/14/21 04:42 Potassium Chloride (Potassium Chloride 10 Meq Tabcr) 10 meq PO BID [facility] Stop: 05/11/21 20:59 Last Admin: 04/20/21 20:17 Dose: 10 meq Documented by: Senna/Docusate Sodium (Docusate Sodium/Senna 50/8.6mg Tab) 1 tab PO [facility] Stop: 05/14/21 04:44 Last Admin: 04/20/21 08:19 Dose: 1 tab Documented by: Sumatriptan Succinate (Sumatriptan Succinate 25 Mg Tab) 25 mg PO DAILY PRN PRN Reason: Migraine Headache Stop: 05/08/21 10:18 Last Admin: 04/17/21 19:59 Dose: 25 mg Documented by: Zolpidem Tartrate (Zolpidem Tartrate 5 Mg Tab) 5 mg PO [facility] Stop: 05/02/21 20:59 Last Admin: 04/20/21 22:00 Dose: 5 mg Documented by:
[2021-04-21] MEDS: LACTASE 3000 UNIT TAB PO SCH ×3 (08:30→17:20)
[2021-04-21] MEDS: GABAPENTIN 100 MG CAP PO SCH ×3 (09:15→21:38)
[2021-04-21] MEDS: CARBIDOPA/LEVODOPA 25/100MG TAB PO SCH ×3 (09:15→21:37)
[2021-04-21] MEDS: MAGNESIUM OXIDE 400 MG TAB PO SCH ×2 (09:16→21:39)
[2021-04-21] MEDS: LIDOCAINE 5% 1 PATCH TD SCH (09:16)
[2021-04-21] MEDS: ADVANCED PROBIOTIC 1250 MG CAPSULE PO SCH (09:17)
[2021-04-21] MEDS: amLODIPine BESYLATE 5 MG TAB PO SCH (09:18)
[2021-04-21] MEDS: ASPIRIN 81 MG ECTAB PO SCH (09:19)
[2021-04-21] MEDS: DOCUSATE SODIUM/SENNA 50/8.6MG TAB PO SCH (09:19)
[2021-04-21] MEDS: POTASSIUM CHLORIDE 10 MEQ TABCR PO SCH ×2 (09:20→21:39)
[2021-04-21] MEDS: PANTOprazole 40 MG TAB PO SCH (09:20)
[2021-04-21] MEDS: METOPROLOL TARTRATE 25 MG TAB PO SCH ×2 (09:20→21:40)
[2021-04-21] MEDS: FERROUS SULFATE 325 MG TAB PO SCH (11:03)
[2021-04-21] MEDS: OLANZAPINE 2.5 MG TAB PO SCH (21:36)
[2021-04-21] MEDS: ENOXAPARIN INJ 40 MG/0.4 ML SYR SQ SCH (21:37)
[2021-04-21] MEDS: EZETIMIBE 10 MG TABLET PO SCH (21:37)
[2021-04-21] MEDS: lamoTRIgine 25 MG TAB PO SCH (21:39)
[2021-04-21] MEDS: ZOLPIDEM TARTRATE 5 MG TAB PO SCH (21:57)
[2021-04-22] MEDS: DICLOFENAC SOD 1% GEL 100 GM TUBE EXT SCH ×5 (00:24→23:12)
[2021-04-22] MEDS: ACETAMINOPHEN 500 MG TAB PO SCH ×4 (00:25→22:40)
[2021-04-22] MEDS: HYDROCODONE/ACETAMOPHEN 5/325MG TAB PO SCH ×3 (01:32→18:13)
[2021-04-22] MEDS: MEROPENEM 500 MG in SYRINGE 0 ML IV SCH ×4 (03:41→22:03)
[2021-04-22] MEDS: ADVANCED PROBIOTIC 1250 MG CAPSULE PO SCH (08:39)
[2021-04-22] MEDS: METOPROLOL TARTRATE 25 MG TAB PO SCH ×2 (08:39→20:33)
[2021-04-22] MEDS: GABAPENTIN 100 MG CAP PO SCH ×3 (08:39→20:31)
[2021-04-22] MEDS: MAGNESIUM OXIDE 400 MG TAB PO SCH ×2 (08:39→20:31)
[2021-04-22] MEDS: DOCUSATE SODIUM/SENNA 50/8.6MG TAB PO SCH (08:39)
[2021-04-22] MEDS: POTASSIUM CHLORIDE 10 MEQ TABCR PO SCH ×2 (08:39→20:30)
[2021-04-22] MEDS: PANTOprazole 40 MG TAB PO SCH (08:39)
[2021-04-22] MEDS: ASPIRIN 81 MG ECTAB PO SCH (08:40)
[2021-04-22] MEDS: CARBIDOPA/LEVODOPA 25/100MG TAB PO SCH ×3 (08:40→20:32)
[2021-04-22] MEDS: amLODIPine BESYLATE 5 MG TAB PO SCH (08:40)
[2021-04-22] MEDS: LACTASE 3000 UNIT TAB PO SCH ×3 (08:40→16:48)
[2021-04-22] MEDS: LIDOCAINE 5% 1 PATCH TD SCH (08:40)
[2021-04-22] MEDS: FERROUS SULFATE 325 MG TAB PO SCH (12:10)
--- NOTE | 2021-04-22 12:21 | Hospitalist Progress Note ---
Date of Service April 22, 2021 Assessment & Plan (1) Pneumonia: (2) Catheter-associated urinary tract infection: Plan: This is a 76-year-old female with PMH Parkinson's, Mtugcea-Cuwmy-Txvfi disease, HTN, HLD, history of TIA, CKD stage III, chronic Romeo catheter with recurrent UTIs, wheelchair-bound, multiple lower extremity surgeries, who presented to the ED for evaluation of shortness of breath and wheezing. Being managed for the following: Delirium, Paranoia, hallucinations -Pt w/ hx of paranoid ideations related to cognitive decline now with superimposed delirium -Patient became more confused and was yelling and calling 911 on her cell phone and her family -Psychiatry consulted, stable on risperdal 0.5mg bid, ambien started 04/18 -continues to hallucinations, worsening delusions/paranoia, ?auditory georges. Plan per psychiatry: Taper Risperdal in favor of trial of Zyprexa. Family aware of metabolic profile and risks in elderly. Currently on Zyprexa 2.5 nightly Chest pain - resolved -Developed chest pain on 03/27 and was transferred to [facility] with telemetry -Troponin negative x2, EKG nonischemic -Reproducible on exam, likely musculoskeletal in nature -Another episode of chest pain on 04/06 evening, EKG and troponin unremarkable Chronic Diastolic CHF pt with episode of decompensated CHF while hospitalized, now resolved -Echo 03/21/2021 -EF 55-60%, grade 2 diastolic dysfunction 03/14 CXR: Mild pulmonary edema. Possible small left pleural effusion 03/14 IV dose of Lasix 03/28 IV Lasix x 1 dose euvolemic today, daily weights TIA Patient was a stroke alert overnight (03/20-03/21) Likely TIA - involving the right hemisphere with left facial droop yet on imaging has no evidence for a completed event Head and neck CTA, brain MRI unremarkable for acute findings Neurology consulted, input appreciated Do not have sufficient evidence to recommend adding Plavix to her aspirin but will observe her for recurrent events and if they do enlarge then certainly would add another antiplatelet agent Recommend to continue aspirin 81 mg daily, and 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 Fields Pneumonia Has bibasilar infiltration more on the right could be secondary to aspiration versus HCAP Initial lactic acid 3.2---> 1.9, no other signs of sepsis. MRSA screen negative Zosyn 03/12 --> change to Augmentin 03/14 -->Levaquin 03/15 d/t E.cloacae and E. coli in UCx --> stop date 03/19 Blood cultures negative Has had speech evaluation Recommended aspiration precaution during feeding - If the condition persist will need to have a formal barium swallow No fever and no chills CAUTI:Chronic indwelling Romeo catheter History of recurrent UTIs. Patient overdue for follow-up with urology---> Alexandrea BETANCOURT to arrange for outpatient follow-up for management of her chronic Romeo UA was suggestive of infection, 03/12 urine culture Enterobacter cloacae and E. coli Finished levaquin 04/18 - reports burning at Romeo site Obtained UA - abnormal - possible colonization U cultx -Enterobacter cloacea -multidrug-resistant, started meropenem. Plan to discuss further with urology and ID. Per urology - cont. Abx for now CBC BMP. WBC is normal CMT (Rceanls-Ttqea-Vxkxz disease): S/p multiple lower extremity procedures, most recently s/p left knee closed reduction total knee arthroplasty subluxation on 02/16/2021 - patient is to rem ain nonweightbearing of the left lower extremity and limited weightbearing on the right lower extremity changed tramadol to hydrocodone Abnormal Left ankle XR Patient complaining of multiple joint pain, more on the left leg 03/15 x-ray left ankle: A 1.8 cm linear ossific density posterior to the talus may represent an avulsion fracture from the dorsal calcaneus. Clinical correlation will be essential. Orthopedic consulted for left calcaneal superior posterior avulsion fracture status post fall: High tide walking boot removed, replaced with a dorsiflexion splint with a negative relief under the left heel and lambs wool padding to provide essentially neutral support for neutral dorsiflexion of the left ankle and heel and foot. Orthopedic recommending may use the walking boot for transfers or ambulating and wheelchair as necessary. Follow-up with outpatient orthopedics. Dr. Crain, [facility] [place] Pt requesting repeat xray L ankle and also requesting R ankle due to pain - ordered, unchanged, follow up with Dr. Crain. Parkinson disease: Continue carbidopa-levodopa Chronic pain: Continue home regimen DVT prophylaxis: SQ Lovenox Disposition:Medically stable; awaiting placement. Case management following. Admission and Anticipated Discharge Date Admission Date: March 12, 2021 Subjective Pt seen in follow-up of delirium, recurrent UTI and pneumonia. She has had prolonged hospital stay , awaiting Placement. Currently sitting up in bed in NAD, reports no complaints Pt continues to have hallucinations, psychiatry is following closely Reported burning at the Romeo site, therefore UA repeated and patient started on antibiotic Review of Systems Review of Systems: All systems reviewed & are unremarkable except as noted in Subjective Physical Exam Physical Exam: Gen: WD/WN, F, chronically ill appearing, NAD, A&O x3 HEENT: Normocephalic, atraumatic, sclerae anicteric, mucous membranes moist. Lung: Clear to Auscultation bilaterally, no wheezes/rales/rhonchi Heart: Regular rate, regular rhythm, no murmurs, rubs, or gallops Abdomen: Soft, NT, ND +BS x 4 Extremities: LLE brace in place Skin: Warm, no rash, negative turgor. : +Romeo cath Psych: flat affect Results & Data Results & Data ([facility]) Vital Signs (Past 12 Hours) Vital Signs Temp Pulse Resp BP Pulse Ox 04/22/21 08:16 36.5 C 51 L 16 114/68 96 Medications Administered Current Inpatient Medications Acetaminophen (Acetaminophen 500 Mg Tab) 500 mg PO Q8@0000,0800,1600 [facility] Stop: 05/19/21 15:59 Last Admin: 04/22/21 08:40 Dose: 500 mg Documented by: Hydrocodone Bitart/Acetaminophen (Hydrocodone/Acetamophen 5/325mg Tab) 1 tab PO Q8H [facility] Stop: 05/01/21 10:29 Last Admin: 04/22/21 09:35 Dose: 1 tab Documented by: Albuterol (Albuterol 0.5% Neb Soln 2.5 Mg/0.5 Ml Vial) 2.5 mg NEB Q6R PRN PRN Reason: wheezing, SOB Stop: 05/11/21 17:17 Last Admin: 04/01/21 21:09 Dose: 2.5 mg Documented by: Albuterol (Albut/Ipratrop 3mg/0.5mg Neb 3 Ml Vial) 3 ml NEB Q4R PRN PRN Reason: Shortness Of Breath Or Wheezing Stop: 05/11/21 10:48 Last Admin: 03/28/21 11:17 Dose: 3 ml Documented by: Amlodipine Besylate (Amlodipine Besylate 5 Mg Tab) 5 mg PO QAM [facility] Stop: 05/11/21 12:14 Last Admin: 04/22/21 08:40 Dose: 5 mg Documented by: Aspirin (Aspirin 81 Mg Ectab) 81 mg PO DAILY [facility] Stop: 05/11/21 08:59 Last Admin: 04/22/21 08:40 Dose: 81 mg Documented by: Carbidopa/Levodopa (Carbidopa/Levodopa 25/100mg Tab) 1 tab PO TID [facility] Stop: 05/11/21 20:59 Last Admin: 04/22/21 08:40 Dose: 1 tab Documented by: Diclofenac Sodium (Diclofenac Sod 1% Gel 100 Gm Tube) 2 gm EXT Q6 [facility] Stop: 05/11/21 15:29 Last Admin: 04/22/21 12:10 Dose: 2 gm Documented by: Docusate Sodium (Docusate Sodium 100 Mg Cap) 100 mg PO DAILY PRN PRN Reason: Constipation Stop: 05/11/21 16:59 Last Admin: 04/06/21 02:36 Dose: 100 mg Documented by: Ezetimibe (Ezetimibe 10 Mg Tablet) 10 mg PO HS [facility] Stop: 05/11/21 20:59 Last Admin: 04/21/21 21:37 Dose: 10 mg Documented by: Enoxaparin Sodium (Enoxaparin Inj 40 Mg/0.4 Ml Syr) 40 mg SQ Q24H [facility] Stop: 05/11/21 16:59 Last Admin: 04/21/21 21:37 Dose: 40 mg Documented by: Ferrous Sulfate (Ferrous Sulfate 325 Mg Tab) 325 mg PO DAILY@1100 [facility] Stop: 05/11/21 10:59 Last Admin: 04/22/21 12:10 Dose: 325 mg Documented by: Gabapentin (Gabapentin 100 Mg Cap) 200 mg PO TID [facility] Stop: 05/11/21 20:59 Last Admin: 04/22/21 08:39 Dose: 200 mg Documented by: Haloperidol Lactate (Haloperidol Lactate 5 Mg/Ml 1 Ml Vial) 1 mg IV Q6 PRN PRN Reason: Anxiety/Agitation Stop: 04/23/21 12:15 Promethazine HCl 12.5 mg/ (Sodium Chloride) 50.5 mls @ 202 mls/hr IV Q6H PRN PRN Reason: Nausea And Vomiting Stop: 05/11/21 20:07 Last Infusion: 04/17/21 19:58 Dose: Infused Documented by: Meropenem 500 mg/ Syringe 10 mls @ 2 mls/min IV Q6H [facility]; Protocol Stop: 04/30/21 08:59 Last Admin: 04/22/21 09:31 Dose: 2 mls/min Documented by: Lactase (Lactase 3000 Unit Tab) 3,000 units PO AC [facility] Stop: 05/11/21 16:59 Last Admin: 04/22/21 12:10 Dose: 3,000 units Documented by: Lactobacillus Acidoph/Casei/Rhamnos (Advanced Probiotic 1250 Mg Capsule) 2 cap PO DAILY [facility] Stop: 05/11/21 14:29 Last Admin: 04/22/21 08:39 Dose: 2 cap Documented by: Lamotrigine (Lamotrigine 25 Mg Tab) 75 mg PO [facility] Stop: 05/11/21 20:59 Last Admin: 04/21/21 21:39 Dose: 75 mg Documented by: Lidocaine (Lidocaine 5% 1 Patch) 1 patch TD DAILY [facility] Stop: 05/11/21 08:59 Last Admin: 04/22/21 08:40 Dose: 1 patch Documented by: Magnesium Oxide (Magnesium Oxide 400 Mg Tab) 400 mg PO BID [facility] Stop: 05/18/21 20:59 Last Admin: 04/22/21 08:39 Dose: 400 mg Documented by: Metoprolol Tartrate (Metoprolol Tartrate 25 Mg Tab) 25 mg PO BID [facility] Stop: 05/17/21 20:24 Last Admin: 04/22/21 08:39 Dose: Not Given Documented by: Miscellaneous (Remove Lidoderm Patch) 1 ea N/A [facility] Stop: 05/11/21 20:59 Last Admin: 04/21/21 22:03 Dose: 1 ea Documented by: Miscellaneous Information (Meropenem Consult Active) 1 ea N/A UD PRN PRN Reason: Consult Stop: 05/20/21 08:49 Olanzapine (Olanzapine 2.5 Mg Tab) 2.5 mg PO HS [facility] Stop: 05/18/21 20:59 Last Admin: 04/21/21 21:36 Dose: 2.5 mg Documented by: Pantoprazole Sodium (Pantoprazole 40 Mg Tab) 40 mg PO DAILY [facility] Stop: 05/11/21 08:59 Last Admin: 04/22/21 08:39 Dose: 40 mg Documented by: Polyethylene Glycol (Polyethylene (Miralax) 17 Gm Pack) 17 gm PO DAILY PRN PRN Reason: Constipation Stop: 05/11/21 16:59 Last Admin: 03/18/21 08:07 Dose: 17 gm Documented by: Polyethylene Glycol (Polyethylene (Miralax) 17 Gm Pack) 17 gm PO DAILY PRN PRN Reason: Constipation Stop: 05/14/21 04:42 Potassium Chloride (Potassium Chloride 10 Meq Tabcr) 10 meq PO BID [facility] Stop: 05/11/21 20:59 Last Admin: 04/22/21 08:39 Dose: 10 meq Documented by: Senna/Docusate Sodium (Docusate Sodium/Senna 50/8.6mg Tab) 1 tab PO QAM [facility] Stop: 05/14/21 04:44 Last Admin: 04/22/21 08:39 Dose: 1 tab Documented by: Sumatriptan Succinate (Sumatriptan Succinate 25 Mg Tab) 25 mg PO DAILY PRN PRN Reason: Migraine Headache Stop: 05/08/21 10:18 Last Admin: 04/17/21 19:59 Dose: 25 mg Documented by: Zolpidem Tartrate (Zolpidem Tartrate 5 Mg Tab) 5 mg PO HS [facility] Stop: 05/02/21 20:59 Last Admin: 04/21/21 21:57 Dose: 5 mg Documented by:
--- NOTE | 2021-04-22 12:52 | Psychiatric Progress Note ---
Date of Service April 22, 2021 Impression / Recommendations Impression 76 yo female with history of paranoid ideations related to cognitive decline now with superimposed delirium resulting in worsening hallucinations and delusions. Started Risperdal 03/24/21 which was then cross-tapered to olanzapine due to worsening bradykinesia and parkinsonism side effects. 04/20/21: continues to have delusions/paranoia, auditory hallucinations of staff talking about her and paranoia about people reading her text messages. Tolerating zyprexa so far without signs of EPS. Plan: Increase zyprexa to 5mg qhs to further help with sleep and target paranoia. 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 Maxwell is a 76 yo female from [place], admitted on 03/16/21 for pneumonia and UTI. [facility]. Chief Complaint "People are reading my text messages". Review of Systems Notes reports difficulty with sleep, stable appetite Subjective Subjective Patient was seen & assessed and interval progress reviewed. Today Chen reports low and anxious mood which she attributes to staff talking about her and people reading her text messages. She remains convinced people are reading her texts and won't ever stop bothering her. Also shows me a text message she sent someone regarding a man Huber who she believes has been talking about her with staff since she presented to the ED. Tells me he does this during each of the daily meals. She denies any side effects from the zyprexa and reports ongoing poor sle ep. Discussed increasing the dose which she consents to after verifying with me if I believe that Dr. Blanc would agree with this plan. Physical Exam Psychiatric Orientation: alert, oriented x 3, oriented to person, oriented to place, oriented to time and cooperative Apperance: appropriately dressed and appropriately groomed Eye Contact: good eye contact Motor Behavior: no abnormal motor movements; n EPS Speech: normal rate/rhythm/volume of speech Affect: + constricted affect Mood: + depressed mood and + anxious mood Thought Process: + looseness of associations and + perseveration; + thought process not clear or coherent Thought Content: + paranoid and + delusions Suicidal Thoughts: denies suicidal thoughts Homicidal Thoughts: denies homicidal thoughts Hallucinations: + auditory hallucinations (hears staff talking about her in the halls); no visual hallucinations Cognition: recent memory grossly intact, remote memory grossly intact, attention grossly intact and language grossly intact Estimated Intelligence: consistent with education level Insight: + severely impaired insight Judgement: + severely impaired judgement Vital Signs (Past 24 Hours) Last Vital Signs Temp 36.5 C 04/22/21 08:16 Pulse 51 L 04/22/21 08:16 Resp 16 04/22/21 08:16 BP 114/68 04/22/21 08:16 Pulse Ox 96 04/22/21 08:16 Results & Data ([facility]) Current Inpatient Medications Current Inpatient Medications: Current Inpatient Medications Acetaminophen (Acetaminophen 500 Mg Tab) 500 mg PO Q8@0000,0800,1600 [facility] Stop: 05/19/21 15:59 Last Admin: 04/22/21 08:40 Dose: 500 mg Documented by: Hydrocodone Bitart/Acetaminophen (Hydrocodone/Acetamophen 5/325mg Tab) 1 tab PO Q8H [facility] Stop: 05/01/21 10:29 Last Admin: 04/22/21 09:35 Dose: 1 tab Documented by: Albuterol (Albuterol 0.5% Neb Soln 2.5 Mg/0.5 Ml Vial) 2.5 mg NEB Q6R PRN PRN Reason: wheezing, SOB Stop: 05/11/21 17:17 Last Admin: 04/01/21 21:09 Dose: 2.5 mg Documented by: Albuterol (Albut/Ipratrop 3mg/0.5mg Neb 3 Ml Vial) 3 ml NEB Q4R PRN PRN Reason: Shortness Of Breath Or Wheezing Stop: 05/11/21 10:48 Last Admin: 03/28/21 11:17 Dose: 3 ml Documented by: Amlodipine Besylate (Amlodipine Besylate 5 Mg Tab) 5 mg PO QAM [facility] Stop: 05/11/21 12:14 Last Admin: 04/22/21 08:40 Dose: 5 mg Documented by: Aspirin (Aspirin 81 Mg Ectab) 81 mg PO DAILY [facility] Stop: 05/11/21 08:59 Last Admin: 04/22/21 08:40 Dose: 81 mg Documented by: Carbidopa/Levodopa (Carbidopa/Levodopa 25/100mg Tab) 1 tab PO TID [facility] Stop: 05/11/21 20:59 Last Admin: 04/22/21 08:40 Dose: 1 tab Documented by: Diclofenac Sodium (Diclofenac Sod 1% Gel 100 Gm Tube) 2 gm EXT Q6 [facility] Stop: 05/11/21 15:29 Last Admin: 04/22/21 12:10 Dose: 2 gm Documented by: Docusate Sodium (Docusate Sodium 100 Mg Cap) 100 mg PO DAILY PRN PRN Reason: Constipation Stop: 05/11/21 16:59 Last Admin: 04/06/21 02:36 Dose: 100 mg Documented by: Ezetimibe (Ezetimibe 10 Mg Tablet) 10 mg PO HS [facility] Stop: 05/11/21 20:59 Last Admin: 04/21/21 21:37 Dose: 10 mg Documented by: Enoxaparin Sodium (Enoxaparin Inj 40 Mg/0.4 Ml Syr) 40 mg SQ Q24H [facility] Stop: 05/11/21 16:59 Last Admin: 04/21/21 21:37 Dose: 40 mg Documented by: Ferrous Sulfate (Ferrous Sulfate 325 Mg Tab) 325 mg PO DAILY@1100 [facility] Stop: 05/11/21 10:59 Last Admin: 04/22/21 12:10 Dose: 325 mg Documented by: Gabapentin (Gabapentin 100 Mg Cap) 200 mg PO TID [facility] Stop: 05/11/21 20:59 Last Admin: 04/22/21 08:39 Dose: 200 mg Documented by: Haloperidol Lactate (Haloperidol Lactate 5 Mg/Ml 1 Ml Vial) 1 mg IV Q6 PRN PRN Reason: Anxiety/Agitation Stop: 04/23/21 12:15 Promethazine HCl 12.5 mg/ (Sodium Chloride) 50.5 mls @ 202 mls/hr IV Q6H PRN PRN Reason: Nausea And Vomiting Stop: 05/11/21 20:07 Last Infusion: 04/17/21 19:58 Dose: Infused Documented by: Meropenem 500 mg/ Syringe 10 mls @ 2 mls/min IV Q6H [facility]; Protocol Stop: 04/30/21 08:59 Last Admin: 04/22/21 09:31 Dose: 2 mls/min Documented by: Lactase (Lactase 3000 Unit Tab) 3,000 units PO AC [facility] Stop: 05/11/21 16:59 Last Admin: 04/22/21 12:10 Dose: 3,000 units Documented by: Lactobacillus Acidoph/Casei/Rhamnos (Advanced Probiotic 1250 Mg Capsule) 2 cap PO DAILY [facility] Stop: 05/11/21 14:29 Last Admin: 04/22/21 08:39 Dose: 2 cap Documented by: Lamotrigine (Lamotrigine 25 Mg Tab) 75 mg PO HS [facility] Stop: 05/11/21 20:59 Last Admin: 04/21/21 21:39 Dose: 75 mg Documented by: Lidocaine (Lidocaine 5% 1 Patch) 1 patch TD DAILY [facility] Stop: 05/11/21 08:59 Last Admin: 04/22/21 08:40 Dose: 1 patch Documented by: Magnesium Oxide (Magnesium Oxide 400 Mg Tab) 400 mg PO BID [facility] Stop: 05/18/21 20:59 Last Admin: 04/22/21 08:39 Dose: 400 mg Documented by: Metoprolol Tartrate (Metoprolol Tartrate 25 Mg Tab) 25 mg PO BID [facility] Stop: 05/17/21 20:24 Last Admin: 04/22/21 08:39 Dose: Not Given Documented by: Miscellaneous (Remove Lidoderm Patch) 1 ea N/A HS [facility] Stop: 05/11/21 20:59 Last Admin: 04/21/21 22:03 Dose: 1 ea Documented by: Miscellaneous Information (Meropenem Consult Active) 1 ea N/A UD PRN PRN Reason: Consult Stop: 05/20/21 08:49 Olanzapine (Olanzapine 5 Mg Tablet) 5 mg PO [facility] Stop: 05/22/21 20:59 Pantoprazole Sodium (Pantoprazole 40 Mg Tab) 40 mg PO DAILY [facility] Stop: 05/11/21 08:59 Last Admin: 04/22/21 08:39 Dose: 40 mg Documented by: Polyethylene Glycol (Polyethylene (Miralax) 17 Gm Pack) 17 gm PO DAILY PRN PRN Reason: Constipation Stop: 05/11/21 16:59 Last Admin: 03/18/21 08:07 Dose: 17 gm Documented by: Polyethylene Glycol (Polyethylene (Miralax) 17 Gm Pack) 17 gm PO DAILY PRN PRN Reason: Constipation Stop: 05/14/21 04:42 Potassium Chloride (Potassium Chloride 10 Meq Tabcr) 10 meq PO BID [facility] Stop: 05/11/21 20:59 Last Admin: 04/22/21 08:39 Dose: 10 meq Documented by: Senna/Docusate Sodium (Docusate Sodium/Senna 50/8.6mg Tab) 1 tab PO [facility] Stop: 05/14/21 04:44 Last Admin: 04/22/21 08:39 Dose: 1 tab Documented by: Sumatriptan Succinate (Sumatriptan Succinate 25 Mg Tab) 25 mg PO DAILY PRN PRN Reason: Migraine Headache Stop: 05/08/21 10:18 Last Admin: 04/17/21 19:59 Dose: 25 mg Documented by: Zolpidem Tartrate (Zolpidem Tartrate 5 Mg Tab) 5 mg PO [facility] Stop: 05/02/21 20:59 Last Admin: 04/21/21 21:57 Dose: 5 mg Documented by:
[2021-04-22] MEDS: ENOXAPARIN INJ 40 MG/0.4 ML SYR SQ SCH (20:29)
[2021-04-22] MEDS: lamoTRIgine 25 MG TAB PO SCH (20:30)
[2021-04-22] MEDS: OLANZapine 5 MG TABLET PO SCH (20:31)
[2021-04-22] MEDS: EZETIMIBE 10 MG TABLET PO SCH (20:32)
[2021-04-22] MEDS ORDERED: NITROGLYCERIN SL 0.4 MG/TAB TAB SL STA (21:41)
[2021-04-22] MEDS: ZOLPIDEM TARTRATE 5 MG TAB PO SCH (21:46)
[2021-04-22] MEDS: NITROGLYCERIN SL 0.4 MG/TAB TAB SL PRN (22:16)
[2021-04-23] MEDS: HYDROCODONE/ACETAMOPHEN 5/325MG TAB PO SCH ×3 (02:31→17:16)
[2021-04-23] MEDS: MEROPENEM 500 MG in SYRINGE 0 ML IV SCH ×4 (04:08→21:14)
[2021-04-23] MEDS: DICLOFENAC SOD 1% GEL 100 GM TUBE EXT SCH ×4 (05:48→23:05)
--- NOTE | 2021-04-23 07:51 | Electrocardiogram Report ---
Test Reason : Blood Pressure : / mmHG Vent. Rate : 077 BPM Atrial Rate : 077 BPM P-R Int : 176 ms QRS Dur : 094 ms QT Int : 384 ms P-R-T Axes : 047 -20 010 degrees QTc Int : 434 ms Normal sinus rhythm Minimal voltage criteria for LVH, may be normal variant Poor R wave progression, consider anterior AR vs. lead placement vs. LVH Abnormal ECG When compared with ECG of 17-APR-2021 19:02, No significant change was found Confirmed by Ronny Sampson ([id number]) on 04/23/2021 7:50:48 AM Referred By: REFERRED SELF Confirmed By:Jeromy Sampson
[2021-04-23 08:23] LABS: Creatinine Clr Calc Pharmacy 76.4 ml/min; Est GFR (African American) 102.2 ml/min; Est GFR (Non-African American) 88.2 ml/min
[2021-04-23 08:27] LABS: Troponin I < 0.015 ng/ml (0-0.045)
[2021-04-23] MEDS: ACETAMINOPHEN 500 MG TAB PO SCH ×3 (09:04→23:05)
[2021-04-23] MEDS: METOPROLOL TARTRATE 25 MG TAB PO SCH ×2 (09:05→21:07)
[2021-04-23] MEDS: POTASSIUM CHLORIDE 10 MEQ TABCR PO SCH ×2 (09:06→21:04)
[2021-04-23] MEDS: GABAPENTIN 100 MG CAP PO SCH ×3 (09:06→21:04)
[2021-04-23] MEDS: MAGNESIUM OXIDE 400 MG TAB PO SCH ×2 (09:06→21:04)
[2021-04-23] MEDS: LIDOCAINE 5% 1 PATCH TD SCH (09:06)
[2021-04-23] MEDS: CARBIDOPA/LEVODOPA 25/100MG TAB PO SCH ×3 (09:06→21:04)
[2021-04-23] MEDS: PANTOprazole 40 MG TAB PO SCH (09:07)
[2021-04-23] MEDS: amLODIPine BESYLATE 5 MG TAB PO SCH (09:08)
[2021-04-23] MEDS: ADVANCED PROBIOTIC 1250 MG CAPSULE PO SCH (09:08)
[2021-04-23] MEDS: ASPIRIN 81 MG ECTAB PO SCH (09:08)
[2021-04-23] MEDS: DOCUSATE SODIUM/SENNA 50/8.6MG TAB PO SCH (09:09)
[2021-04-23] MEDS: LACTASE 3000 UNIT TAB PO SCH ×3 (09:09→17:17)
[2021-04-23] MEDS: FERROUS SULFATE 325 MG TAB PO SCH (11:20)
[2021-04-23] MEDS: lamoTRIgine 25 MG TAB PO SCH (21:03)
[2021-04-23] MEDS: OLANZapine 5 MG TABLET PO SCH (21:05)
[2021-04-23] MEDS: ENOXAPARIN INJ 40 MG/0.4 ML SYR SQ SCH (21:05)
[2021-04-23] MEDS: EZETIMIBE 10 MG TABLET PO SCH (21:05)
[2021-04-23] MEDS: ZOLPIDEM TARTRATE 5 MG TAB PO SCH (21:48)
--- NOTE | 2021-04-24 00:54 | Hospitalist Progress Note ---
Date of Service April 23, 2021 Assessment & Plan (1) Pneumonia: (2) Catheter-associated urinary tract infection: Plan: This is a 76-year-old female with PMH Parkinson's, Spquupr-Laaxj-Ysaek disease, HTN, HLD, history of TIA, CKD stage III, chronic Romeo catheter with recurrent UTIs, wheelchair-bound, multiple lower extremity surgeries, who presented to the ED for evaluation of shortness of breath and wheezing. Being managed for the following: Delirium, Paranoia, hallucinations -Pt w/ hx of paranoid ideations related to cognitive decline now with superimposed delirium -Patient became more confused and was yelling and calling 911 on her cell phone and her family -Psychiatry consulted, stable on risperdal 0.5mg bid, ambien started 04/18 -continues to hallucinations, worsening delusions/paranoia, ?auditory georges. Plan per psychiatry: Taper Risperdal in favor of trial of Zyprexa. Family aware of metabolic profile and risks in elderly. Currently on Zyprexa increased to 5 mg nightly Chest pain - resolved -Developed chest pain on 03/27 and was transferred to [facility] with telemetry -Troponin negative x2, EKG nonischemic -Reproducible on exam, likely musculoskeletal in nature -Another episode of chest pain on 04/06 evening, EKG and troponin unremarkable Chronic Diastolic CHF pt with episode of decompensated CHF while hospitalized, now resolved -Echo 03/21/2021 -EF 55-60%, grade 2 diastolic dysfunction 03/14 CXR: Mild pulmonary edema. Possible small left pleural effusion 03/14 IV dose of Lasix 03/28 IV Lasix x 1 dose euvolemic today, daily weights TIA Patient was a stroke alert overnight (03/20-03/21) Likely TIA - involving the right hemisphere with left facial droop yet on imaging has no evidence for a completed event Head and neck CTA, brain MRI unremarkable for acute findings Neurology consulted, input appreciated Do not have sufficient evidence to recommend adding Plavix to her aspirin but will observe her for recurrent events and if they do enlarge then certainly would add another antiplatelet agent Recommend to continue aspirin 81 mg daily, and 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 Fields Pneumonia Has bibasilar infiltration more on the right could be secondary to aspiration versus HCAP Initial lactic acid 3.2---> 1.9, no other signs of sepsis. MRSA screen negative Zosyn 03/12 --> change to Augmentin 03/14 -->Levaquin 03/15 d/t E.cloacae and E. coli in UCx --> stop date 03/19 Blood cultures negative Has had speech evaluation Recommended aspiration precaution during feeding - If the condition persist will need to have a formal barium swallow No fever and no chills CAUTI:Chronic indwelling Romeo catheter History of recurrent UTIs. Patient overdue for follow-up with urology---> Alexandrea BETANCOURT to arrange for outpatient follow-up for management of her chronic Romeo UA was suggestive of infection, 03/12 urine culture Enterobacter cloacae and E. coli Finished levaquin 04/18 - reports burning at Romeo site Obtained UA - abnormal - possible colonization U cultx -Enterobacter cloacea -multidrug-resistant, started meropenem. Plan to discuss further with urology and ID. Per urology - cont. Abx for now CBC BMP. WBC is normal CMT (Xiqgxsz-Jmzwp-Fjdex disease): S/p multiple lower extremity procedures, most recently s/p left knee closed reduction total knee arthroplasty subluxation on 02/16/2021 - patient is to remain nonweightbearing of the left lower extremity and limited weightbearing on the right lower extremity changed tramadol to hydrocodone Abnormal Left ankle XR Patient complaining of multiple joint pain, more on the left leg 03/15 x-ray left ankle: A 1.8 cm linear ossific density posterior to the talus may represent an avulsion fracture from the dorsal calcaneus. Clinical correlation will be essential. Orthopedic consulted for left calcaneal superior posterior avulsion fracture status post fall: High tide walking boot removed, replaced with a dorsiflexion splint with a negative relief under the left heel and lambs wool padding to provide essentially neutral support for neutral dorsiflexion of the left ankle and heel and foot. Orthopedic recommending may use the walking boot for transfers or ambulating and wheelchair as necessary. Follow-up with outpatient orthopedics. Dr. Crain, [facility]. Pt requesting repeat xray L ankle and also requesting R ankle due to pain - ordered, unchanged, follow up with Dr. Crain. Parkinson disease: Continue carbidopa-levodopa Chronic pain: Continue home regimen DVT prophylaxis: SQ Lovenox Disposition:Medically stable; awaiting placement. Case management following. Admission and Anticipated Discharge Date Admission Date: March 12, 2021 Subjective Pt seen in follow-up of delirium, recurrent UTI and pneumonia. She has had prolonged hospital stay , awaiting Placement. Currently sitting up in bed in NAD Pt continues to have hallucinations, psychiatry is following closely Reported burning at the Romeo site, therefore UA repeated and patient started on antibiotic Review of Systems Review of Systems: All systems reviewed & are unremarkable except as noted in Subjective Physical Exam Physical Exam: Gen: WD/WN, F, chronically ill appearing, NAD, A&O x3 HEENT: Normocephalic, atraumatic, sclerae anicteric, mucous membranes moist. Lung: Clear to Auscultation bilaterally, no wheezes/rales/rhonchi Heart: Regular rate, regular rhythm, no murmurs, rubs, or gallops Abdomen: Soft, NT, ND +BS x 4 Extremities: LLE brace in place Skin: Warm, no rash, negative turgor. : +Romeo cath Psych: flat affect Results & Data Results & Data ([facility]) Vital Signs (Past 12 Hours) Vital Signs Temp Pulse Pulse Resp BP Pulse Ox 04/23/21 21:23 37.1 C 70 16 153/77 H 94 04/23/21 15:27 36.3 C L 66 16 147/78 H 97 Medications Administered Current Inpatient Medications Acetaminophen (Acetaminophen 500 Mg Tab) 500 mg PO Q8@0000,0800,1600 [facility] Stop: 05/19/21 15:59 Last Admin: 04/23/21 23:05 Dose: 500 mg Documented by: Hydrocodone Bitart/Acetaminophen (Hydrocodone/Acetamophen 5/325mg Tab) 1 tab PO Q8H [facility] Stop: 05/01/21 10:29 Last Admin: 04/23/21 17:16 Dose: 1 tab Documented by: Albuterol (Albuterol 0.5% Neb Soln 2.5 Mg/0.5 Ml Vial) 2.5 mg NEB Q6R PRN PRN Reason: wheezing, SOB Stop: 05/11/21 17:17 Last Admin: 04/01/21 21:09 Dose: 2.5 mg Documented by: Albuterol (Albut/Ipratrop 3mg/0.5mg Neb 3 Ml Vial) 3 ml NEB Q4R PRN PRN Reason: Shortness Of Breath Or Wheezing Stop: 05/11/21 10:48 Last Admin: 03/28/21 11:17 Dose: 3 ml Documented by: Amlodipine Besylate (Amlodipine Besylate 5 Mg Tab) 5 mg PO QAM [facility] Stop: 05/11/21 12:14 Last Admin: 04/23/21 09:08 Dose: 5 mg Documented by: Aspirin (Aspirin 81 Mg Ectab) 81 mg PO DAILY [facility] Stop: 05/11/21 08:59 Last Admin: 04/23/21 09:08 Dose: 81 mg Documented by: Carbidopa/Levodopa (Carbidopa/Levodopa 25/100mg Tab) 1 tab PO TID [facility] Stop: 05/11/21 20:59 Last Admin: 04/23/21 21:04 Dose: 1 tab Documented by: Diclofenac Sodium (Diclofenac Sod 1% Gel 100 Gm Tube) 2 gm EXT Q6 [facility] Stop: 05/11/21 15:29 Last Admin: 04/23/21 23:05 Dose: 2 gm Documented by: Docusate Sodium (Docusate Sodium 100 Mg Cap) 100 mg PO DAILY PRN PRN Reason: Constipation Stop: 05/11/21 16:59 Last Admin: 04/06/21 02:36 Dose: 100 mg Documented by: Ezetimibe (Ezetimibe 10 Mg Tablet) 10 mg PO HS [facility] Stop: 05/11/21 20:59 Last Admin: 04/23/21 21:05 Dose: 10 mg Documented by: Enoxaparin Sodium (Enoxaparin Inj 40 Mg/0.4 Ml Syr) 40 mg SQ Q24H [facility] Stop: 05/11/21 16:59 Last Admin: 04/23/21 21:05 Dose: 40 mg Documented by: Ferrous Sulfate (Ferrous Sulfate 325 Mg Tab) 325 mg PO DAILY@1100 [facility] Stop: 05/11/21 10:59 Last Admin: 04/23/21 11:20 Dose: 325 mg Documented by: Gabapentin (Gabapentin 100 Mg Cap) 200 mg PO TID [facility] Stop: 05/11/21 20:59 Last Admin: 04/23/21 21:04 Dose: 200 mg Documented by: Promethazine HCl 12.5 mg/ (Sodium Chloride) 50.5 mls @ 202 mls/hr IV Q6H PRN PRN Reason: Nausea And Vomiting Stop: 05/11/21 20:07 Last Infusion: 04/17/21 19:58 Dose: Infused Documented by: Meropenem 500 mg/ Syringe 10 mls @ 2 mls/min IV Q6H [facility]; Protocol Stop: 04/30/21 08:59 Last Admin: 04/23/21 21:14 Dose: 2 mls/min Documented by: Lactase (Lactase 3000 Unit Tab) 3,000 units PO AC [facility] Stop: 05/11/21 16:59 Last Admin: 04/23/21 17:17 Dose: 3,000 units Documented by: Lactobacillus Acidoph/Casei/Rhamnos (Advanced Probiotic 1250 Mg Capsule) 2 cap PO DAILY [facility] Stop: 05/11/21 14:29 Last Admin: 04/23/21 09:08 Dose: 2 cap Documented by: Lamotrigine (Lamotrigine 25 Mg Tab) 75 mg PO [facility] Stop: 05/11/21 20:59 Last Admin: 04/23/21 21:03 Dose: 75 mg Documented by: Lidocaine (Lidocaine 5% 1 Patch) 1 patch TD DAILY [facility] Stop: 05/11/21 08:59 Last Admin: 04/23/21 09:06 Dose: 1 patch Documented by: Magnesium Oxide (Magnesium Oxide 400 Mg Tab) 400 mg PO BID [facility] Stop: 05/18/21 20:59 Last Admin: 04/23/21 21:04 Dose: 400 mg Documented by: Metoprolol Tartrate (Metoprolol Tartrate 25 Mg Tab) 25 mg PO BID [facility] Stop: 05/17/21 20:24 Last Admin: 04/23/21 21:07 Dose: 25 mg Documented by: Miscellaneous (Remove Lidoderm Patch) 1 ea N/A HS [facility] Stop: 05/11/21 20:59 Last Admin: 04/23/21 21:19 Dose: Not Given Documented by: Miscellaneous Information (Meropenem Consult Active) 1 ea N/A UD PRN PRN Reason: Consult Stop: 05/20/21 08:49 Nitroglycerin (Nitroglycerin Sl 0.4 Mg/Tab Tab) 0.4 mg SL PRN PRN PRN Reason: Chest Pain Stop: 05/22/21 21:40 Last Admin: 04/22/21 22:16 Dose: 0.4 mg Documented by: Olanzapine (Olanzapine 5 Mg Tablet) 5 mg PO HS [facility] Stop: 05/22/21 20:59 Last Admin: 04/23/21 21:05 Dose: 5 mg Documented by: Pantoprazole Sodium (Pantoprazole 40 Mg Tab) 40 mg PO DAILY [facility] Stop: 05/11/21 08:59 Last Admin: 04/23/21 09:07 Dose: 40 mg Documented by: Polyethylene Glycol (Polyethylene (Miralax) 17 Gm Pack) 17 gm PO DAILY PRN PRN Reason: Constipation Stop: 05/11/21 16:59 Last Admin: 03/18/21 08:07 Dose: 17 gm Documented by: Polyethylene Glycol (Polyethylene (Miralax) 17 Gm Pack) 17 gm PO DAILY PRN PRN Reason: Constipation Stop: 05/14/21 04:42 Potassium Chloride (Potassium Chloride 10 Meq Tabcr) 10 meq PO BID [facility] Stop: 05/11/21 20:59 Last Admin: 04/23/21 21:04 Dose: 10 meq Documented by: Senna/Docusate Sodium (Docusate Sodium/Senna 50/8.6mg Tab) 1 tab PO QAM [facility] Stop: 05/14/21 04:44 Last Admin: 04/23/21 09:09 Dose: 1 tab Documented by: Sumatriptan Succinate (Sumatriptan Succinate 25 Mg Tab) 25 mg PO DAILY PRN PRN Reason: Migraine Headache Stop: 05/08/21 10:18 Last Admin: 04/17/21 19:59 Dose: 25 mg Documented by: Zolpidem Tartrate (Zolpidem Tartrate 5 Mg Tab) 5 mg PO HS [facility] Stop: 05/02/21 20:59 Last Admin: 04/23/21 21:48 Dose: 5 mg Documented by:
[2021-04-24] MEDS: HYDROCODONE/ACETAMOPHEN 5/325MG TAB PO SCH ×3 (01:13→17:42)
[2021-04-24] MEDS: MEROPENEM 500 MG in SYRINGE 0 ML IV SCH ×4 (04:05→21:03)
[2021-04-24] MEDS: DICLOFENAC SOD 1% GEL 100 GM TUBE EXT SCH ×4 (05:12→23:03)
[2021-04-24 07:31] LABS: Creatinine Clr Calc Pharmacy 86.1 ml/min; Est GFR (African American) 106.3 ml/min; Est GFR (Non-African American) 91.8 ml/min
[2021-04-24] MEDS: LIDOCAINE 5% 1 PATCH TD SCH (08:37)
[2021-04-24] MEDS: POTASSIUM CHLORIDE 10 MEQ TABCR PO SCH ×2 (08:46→20:57)
[2021-04-24] MEDS: ACETAMINOPHEN 500 MG TAB PO SCH ×3 (08:46→23:05)
[2021-04-24] MEDS: DOCUSATE SODIUM/SENNA 50/8.6MG TAB PO SCH (08:46)
[2021-04-24] MEDS: ASPIRIN 81 MG ECTAB PO SCH (08:47)
[2021-04-24] MEDS: CARBIDOPA/LEVODOPA 25/100MG TAB PO SCH ×3 (08:47→20:55)
[2021-04-24] MEDS: GABAPENTIN 100 MG CAP PO SCH ×3 (08:47→20:58)
[2021-04-24] MEDS: METOPROLOL TARTRATE 25 MG TAB PO SCH ×2 (08:48→21:00)
[2021-04-24] MEDS: ADVANCED PROBIOTIC 1250 MG CAPSULE PO SCH (08:48)
[2021-04-24] MEDS: PANTOprazole 40 MG TAB PO SCH (08:48)
[2021-04-24] MEDS: MAGNESIUM OXIDE 400 MG TAB PO SCH ×2 (08:48→20:59)
[2021-04-24] MEDS: amLODIPine BESYLATE 5 MG TAB PO SCH (08:48)
[2021-04-24] MEDS: LACTASE 3000 UNIT TAB PO SCH ×3 (08:49→16:22)
[2021-04-24] MEDS: FERROUS SULFATE 325 MG TAB PO SCH (10:07)
--- NOTE | 2021-04-24 12:49 | Psychiatric Progress Note ---
Date of Service April 24, 2021 Impression / Recommendations Impression 76 yo female with history of paranoid ideations related to cognitive decline now with superimposed delirium resulting in worsening hallucinations and delusions. Started Risperdal 03/24/21 which was then cross-tapered to olanzapine due to worsening bradykinesia and parkinsonism side effects. 04/24/21: continues to have delusions/paranoia, auditory hallucinations of staff talking about her. Higher dose of zyprexa has caused daytime fatigue and flattening of her affect and softer speech likely due to Parkinsonism side effects. Therefore feel dose reduction is needed and Chen consents to this. No evidence for acute hypoactive delirium contributing to flattening and softer speech at this time as she remains fully oriented, attention is intact and remembers providers. Plan: Decrease zyprexa back to 2.5mg qhs given emergence of side effects at higher dose. May need to consider reducing dopamine agent for Parkinson's to better target psychotic symptoms versus seroquel trail if symptoms persist on low dose zyprexa. 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 Maxwell is a 76 yo female from [place], admitted on 03/16/21 for pneumonia and UTI. [facility]. Chief Complaint "I'm too tired during the day". Review of Systems Notes Endorses good sleep which she attributes to ambien. Stable appetite. Subjective Subjective Patient was seen & assessed and interval progress reviewed. Chen reports improved sleep since increasing the zyprexa but feels it is making her too tired during the day. She also endorses pain in her legs. She denies increased difficulty with movement in her right arm or left arm. She expresses concern that staff have been saying she has Alzheimer's disease and spreading rumors about her in the hallway. Physical Exam Psychiatric Orientation: alert and oriented x 3 Apperance: appropriately dressed and appropriately groomed Eye Contact: good eye contact Motor Behavior: no abnormal motor movements; n EPS Speech: normal rate/rhythm/volume of speech (softer) Affect: + flat affect Mood: + depressed mood and + anxious mood Thought Process: + looseness of associations and + perseveration Thought Content: + paranoid Suicidal Thoughts: denies suicidal thoughts Homicidal Thoughts: denies homicidal thoughts Hallucinations: + auditory hallucinations Insight: + impaired insight Judgement: + impaired judgement Vital Signs (Past 24 Hours) Last Vital Signs Temp 36.6 C 04/24/21 07:08 Pulse 50 L 04/24/21 07:08 Resp 16 04/24/21 07:08 BP 114/66 04/24/21 07:08 Pulse Ox 97 04/24/21 07:08 Results & Data ([facility]) Laboratory Results Laboratory Results - last 24 hr 04/24/21 06:21 Creatinine 0.55 L Est Cr Clr Drug Dosing 86.1 Est GFR ( Amer) 106.3 Est GFR (Non-Af Amer) 91.8 Current Inpatient Medications Current Inpatient Medications: Current Inpatient Medications Acetaminophen (Acetaminophen 500 Mg Tab) 500 mg PO Q8@0000,0800,1600 [facility] Stop: 05/19/21 15:59 Last Admin: 04/24/21 08:46 Dose: 500 mg Documented by: Hydrocodone Bitart/Acetaminophen (Hydrocodone/Acetamophen 5/325mg Tab) 1 tab PO Q8H [facility] Stop: 05/01/21 10:29 Last Admin: 04/24/21 10:06 Dose: 1 tab Documented by: Albuterol (Albuterol 0.5% Neb Soln 2.5 Mg/0.5 Ml Vial) 2.5 mg NEB Q6R PRN PRN Reason: wheezing, SOB Stop: 05/11/21 17:17 Last Admin: 04/01/21 21:09 Dose: 2.5 mg Documented by: Albuterol (Albut/Ipratrop 3mg/0.5mg Neb 3 Ml Vial) 3 ml NEB Q4R PRN PRN Reason: Shortness Of Breath Or Wheezing Stop: 05/11/21 10:48 Last Admin: 03/28/21 11:17 Dose: 3 ml Documented by: Amlodipine Besylate (Amlodipine Besylate 5 Mg Tab) 5 mg PO QAM [facility] Stop: 05/11/21 12:14 Last Admin: 04/24/21 08:48 Dose: 5 mg Documented by: Aspirin (Aspirin 81 Mg Ectab) 81 mg PO DAILY [facility] Stop: 05/11/21 08:59 Last Admin: 04/24/21 08:47 Dose: 81 mg Documented by: Carbidopa/Levodopa (Carbidopa/Levodopa 25/100mg Tab) 1 tab PO TID [facility] Stop: 05/11/21 20:59 Last Admin: 04/24/21 08:47 Dose: 1 tab Documented by: Diclofenac Sodium (Diclofenac Sod 1% Gel 100 Gm Tube) 2 gm EXT Q6 [facility] Stop: 05/11/21 15:29 Last Admin: 04/24/21 05:12 Dose: 2 gm Documented by: Docusate Sodium (Docusate Sodium 100 Mg Cap) 100 mg PO DAILY PRN PRN Reason: Constipation Stop: 05/11/21 16:59 Last Admin: 04/06/21 02:36 Dose: 100 mg Documented by: Ezetimibe (Ezetimibe 10 Mg Tablet) 10 mg PO HS [facility] Stop: 05/11/21 20:59 Last Admin: 04/23/21 21:05 Dose: 10 mg Documented by: Enoxaparin Sodium (Enoxaparin Inj 40 Mg/0.4 Ml Syr) 40 mg SQ Q24H [facility] Stop: 05/11/21 16:59 Last Admin: 04/23/21 21:05 Dose: 40 mg Documented by: Ferrous Sulfate (Ferrous Sulfate 325 Mg Tab) 325 mg PO DAILY@1100 [facility] Stop: 05/11/21 10:59 Last Admin: 04/24/21 10:07 Dose: 325 mg Documented by: Gabapentin (Gabapentin 100 Mg Cap) 200 mg PO TID [facility] Stop: 05/11/21 20:59 Last Admin: 04/24/21 08:47 Dose: 200 mg Documented by: Promethazine HCl 12.5 mg/ (Sodium Chloride) 50.5 mls @ 202 mls/hr IV Q6H PRN PRN Reason: Nausea And Vomiting Stop: 05/11/21 20:07 Last Infusion: 04/17/21 19:58 Dose: Infused Documented by: Meropenem 500 mg/ Syringe 10 mls @ 2 mls/min IV Q6H [facility]; Protocol Stop: 04/30/21 08:59 Last Admin: 04/24/21 10:06 Dose: 2 mls/min Documented by: Lactase (Lactase 3000 Unit Tab) 3,000 units PO AC [facility] Stop: 05/11/21 16:59 Last Admin: 04/24/21 08:49 Dose: 3,000 units Documented by: Lactobacillus Acidoph/Casei/Rhamnos (Advanced Probiotic 1250 Mg Capsule) 2 cap PO DAILY [facility] Stop: 05/11/21 14:29 Last Admin: 04/24/21 08:48 Dose: 2 cap Documented by: Lamotrigine (Lamotrigine 25 Mg Tab) 75 mg PO HS [facility] Stop: 05/11/21 20:59 Last Admin: 04/23/21 21:03 Dose: 75 mg Documented by: Lidocaine (Lidocaine 5% 1 Patch) 1 patch TD DAILY [facility] Stop: 05/11/21 08:59 Last Admin: 04/24/21 08:37 Dose: 1 patch Documented by: Magnesium Oxide (Magnesium Oxide 400 Mg Tab) 400 mg PO BID [facility] Stop: 05/18/21 20:59 Last Admin: 04/24/21 08:48 Dose: 400 mg Documented by: Metoprolol Tartrate (Metoprolol Tartrate 25 Mg Tab) 25 mg PO BID [facility] Stop: 05/17/21 20:24 Last Admin: 04/24/21 08:48 Dose: 25 mg Documented by: Miscellaneous (Remove Lidoderm Patch) 1 ea N/A [facility] Stop: 05/11/21 20:59 Last Admin: 04/23/21 21:19 Dose: Not Given Documented by: Miscellaneous Information (Meropenem Consult Active) 1 ea N/A UD PRN PRN Reason: Consult Stop: 05/20/21 08:49 Nitroglycerin (Nitroglycerin Sl 0.4 Mg/Tab Tab) 0.4 mg SL PRN PRN PRN Reason: Chest Pain Stop: 05/22/21 21:40 Last Admin: 04/22/21 22:16 Dose: 0.4 mg Documented by: Pantoprazole Sodium (Pantoprazole 40 Mg Tab) 40 mg PO DAILY [facility] Stop: 05/11/21 08:59 Last Admin: 04/24/21 08:48 Dose: 40 mg Documented by: Polyethylene Glycol (Polyethylene (Miralax) 17 Gm Pack) 17 gm PO DAILY PRN PRN Reason: Constipation Stop: 05/11/21 16:59 Last Admin: 03/18/21 08:07 Dose: 17 gm Documented by: Polyethylene Glycol (Polyethylene (Miralax) 17 Gm Pack) 17 gm PO DAILY PRN PRN Reason: Constipation Stop: 05/14/21 04:42 Potassium Chloride (Potassium Chloride 10 Meq Tabcr) 10 meq PO BID [facility] Stop: 05/11/21 20:59 Last Admin: 04/24/21 08:46 Dose: 10 meq Documented by: Senna/Docusate Sodium (Docusate Sodium/Senna 50/8.6mg Tab) 1 tab PO QAM [facility] Stop: 05/14/21 04:44 Last Admin: 04/24/21 08:46 Dose: 1 tab Documented by: Sumatriptan Succinate (Sumatriptan Succinate 25 Mg Tab) 25 mg PO DAILY PRN PRN Reason: Migraine Headache Stop: 05/08/21 10:18 Last Admin: 04/17/21 19:59 Dose: 25 mg Documented by: Zolpidem Tartrate (Zolpidem Tartrate 5 Mg Tab) 5 mg PO HS [facility] Stop: 05/02/21 20:59 Last Admin: 04/23/21 21:48 Dose: 5 mg Documented by:
--- NOTE | 2021-04-24 14:39 | Hospitalist Progress Note ---
Date of Service April 24, 2021 Assessment & Plan (1) Pneumonia: (2) Catheter-associated urinary tract infection: Plan: This is a 76-year-old female with PMH Parkinson's, [id number]-Mbfts-Loejq disease, HTN, HLD, history of TIA, CKD stage III, chronic Romeo catheter with recurrent UTIs, wheelchair-bound, multiple lower extremity surgeries, who presented to the ED for evaluation of shortness of breath and wheezing. 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 On Ambien. 04/18 - visual and auditory hallucinations, worsening delusions/paranoia. Per psychiatry, tapered Risperdal in favor of trial of Zyprexa 2.5 mg at bedtime. Zyprexa increased to 5 mg at bedtime on 04/22 04/24 - Decrease Zyprexa back to 2.5mg qhs given emergence of side effects (daytime fatigue, flattening of affect and softer speech) at higher dose. May need to consider reducing dopamine agent for Parkinson's to better target psychotic symptoms versus Seroquel trail if symptoms persist on low dose Zyprexa. CAUTI:Chronic indwelling Romeo catheter History of recurrent UTIs. Patient overdue for follow-up with urology---> Alexandrea BETANCOURT to arrange for outpatient follow-up for management of her chronic Romeo UA was suggestive of infection, 03/12 urine culture Enterobacter cloacae and E. coli. Completed Levaquin. 04/18 - reports burning at Romeo site Repeat urine culture growing Enterobacter cloacae, multidrug-resistant. On meropenem (day 5) Unclear if true infection or colonization Will consult ID Discussed with urology regarding long-term management of Romeo catheter. Romeo was placed a few months ago due to family request of patient's bedbound status. Will exchange Romeo catheter today, will need monthly changes going forward. Likely not feasible to remove Romeo catheter and attempt voiding trial due to patient's bedbound status. Outpatient follow-up with urology. Chest pain - resolved -Developed chest pain on 03/27 and was transferred to [facility] with telemetry -Troponin negative x2, EKG nonischemic -Reproducible on exam, likely musculoskeletal in nature -Another episode of chest pain on 04/06 evening, EKG and troponin unremarkable Chronic Diastolic CHF pt with episode of decompensated CHF while hospitalized, now resolved -Echo 03/21/2021 -EF 55-60%, grade 2 diastolic dysfunction 03/14 CXR: Mild pulmonary edema. Possible small left pleural effusion 03/14 IV dose of Lasix 03/28 IV Lasix x 1 dose euvolemic today, daily weights TIA Patient was a stroke alert overnight (03/20-03/21) Likely TIA - involving the right hemisphere with left facial droop yet on imaging has no evidence for a completed event Head and neck CTA, brain MRI unremarkable for acute findings Neurology consulted, input appreciated Do not have sufficient evidence to recommend adding Plavix to her aspirin but will observe her for recurrent events and if they do enlarge then certainly would add another antiplatelet agent Recommend to continue aspirin 81 mg daily, and 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 Fields Pneumonia Admission CXR - bibasilar infiltration more on the right could be secondary to aspiration versus HCAP Initial lactic acid 3.2---> 1.9, no other signs of sepsis. MRSA screen negative Zosyn 03/12 --> change to Augmentin 03/14 -->Levaquin 03/15 d/t E.cloacae and E. coli in UCx --> stop date 03/19 Blood cultures negative Has had speech evaluation Recommended aspiration precaution during feeding - If the condition persist will need to have a formal barium swallow No fever and no chills CMT (Npplgeh-Sgggq-Sixzf disease): S/p multiple lower extremity procedures, most recently s/p left knee closed reduction total knee arthroplasty subluxation on 02/16/2021 - patient is to remain nonweightbearing of the left lower extremity and limited weightbearing on the right lower extremity Pain controlled with hydrocodone/acetaminophen Abnormal Left ankle XR Chronic multiple joint pain, more on the left leg 03/15 x-ray left ankle: A 1.8 cm linear ossific density posterior to the talus may represent an avulsion fracture from the dorsal calcaneus. Clinical correlation will be essential. Orthopedic consulted for left calcaneal superior posterior avulsion fracture status post fall: High tide walking boot removed, replaced with a dorsiflexion splint with a negative relief under the left heel and lambs wool padding to provide essentially neutral support for neutral dorsiflexion of the left ankle and heel and foot. Orthopedic recommending may use the walking boot for transfers or ambulating and wheelchair as necessary. Follow-up with outpatient orthopedics. Dr. Crain, [facility]. Per patient request, bilateral ankle x-rays ordered on 04/13 - ordered, unchanged, follow up with Dr. Crain. Parkinson disease: Continue carbidopa-levodopa Chronic pain: Continue home regimen DVT prophylaxis: SQ Lovenox Disposition:Medically stable; awaiting placement. Case management following. Admission and Anticipated Discharge Date Admission Date: March 12, 2021 Supervising Physician Co-Signing Physician Notes I have seen and examined the patient and have discussed the case with the provider above. I agree with the assessment and plan as stated. Patient is medically stable with chronic aches and pains, controlled with narcotics. She has been treated for pneumonia and catheter-associated UTI this admission and is awaiting placement. She is post-op from 02/16/21 s/p left total knee arthroplasty from a previous admission and is limited weight-bearing at this time. My exam reflects that above and agree with the plan as stated to continue current therapy while awaiting a bed at nursing facility. DO Tucker Subjective Pt seen in follow-up of delirium, recurrent UTI and pneumonia. Patient seen and examined. Reports some increased daytime fatigue and slow speech. Has chronic left foot pain. No chest pain or shortness of breath. Denies abdominal pain or nausea. Review of Systems Review of Systems: ROS per HPI, all other systems reviewed and negative Physical Exam Constitutional: WD/WN, vitals as above no acute distress Respiratory: normal respiratory effort, lungs clear to auscultation Cardiovascular: Rate/Rhythm: regular rate and regular rhythm Vessels: normal peripheral pulses Extremities: no edema Gastrointestinal (Abdomen): Percussion/Palpation: abdomen soft; abdomen nontender Musculoskeletal: Chronic lower extremity weakness, left hand contracted, LLE in brace Skin: no rashes, warm and dry Neurologic: no focal motor deficits Psychiatric: Orientation: alert and oriented x 3 Affect: + flat affect Results & Data Results & Data ([facility]) Vital Signs (Past 12 Hours) Vital Signs Temp Pulse Resp BP Pulse Ox 04/24/21 07:08 36.6 C 50 L 16 114/66 97
[2021-04-24] MEDS: ENOXAPARIN INJ 40 MG/0.4 ML SYR SQ SCH (20:56)
[2021-04-24] MEDS: lamoTRIgine 25 MG TAB PO SCH (20:56)
[2021-04-24] MEDS: OLANZAPINE 2.5 MG TAB PO SCH (20:57)
[2021-04-24] MEDS: EZETIMIBE 10 MG TABLET PO SCH (20:58)
[2021-04-24] MEDS: ZOLPIDEM TARTRATE 5 MG TAB PO SCH (21:42)
[2021-04-25] MEDS: HYDROCODONE/ACETAMOPHEN 5/325MG TAB PO SCH ×3 (02:59→18:06)
[2021-04-25] MEDS: MEROPENEM 500 MG in SYRINGE 0 ML IV SCH ×4 (03:00→22:16)
[2021-04-25] MEDS: DICLOFENAC SOD 1% GEL 100 GM TUBE EXT SCH ×3 (06:04→18:06)
[2021-04-25 08:03] LABS: Creatinine Clr Calc Pharmacy 80.2 ml/min; Est GFR (African American) 103.9 ml/min; Est GFR (Non-African American) 89.7 ml/min
[2021-04-25] MEDS: LIDOCAINE 5% 1 PATCH TD SCH (08:15)
[2021-04-25] MEDS: ACETAMINOPHEN 500 MG TAB PO SCH ×2 (08:15→16:11)
[2021-04-25] MEDS: LACTASE 3000 UNIT TAB PO SCH ×3 (08:16→16:11)
[2021-04-25] MEDS: POTASSIUM CHLORIDE 10 MEQ TABCR PO SCH ×2 (08:16→22:05)
[2021-04-25] MEDS: PANTOprazole 40 MG TAB PO SCH (08:17)
[2021-04-25] MEDS: GABAPENTIN 100 MG CAP PO SCH ×3 (08:17→22:02)
[2021-04-25] MEDS: METOPROLOL TARTRATE 25 MG TAB PO SCH ×2 (08:17→22:07)
[2021-04-25] MEDS: amLODIPine BESYLATE 5 MG TAB PO SCH (08:18)
[2021-04-25] MEDS: ASPIRIN 81 MG ECTAB PO SCH (08:18)
[2021-04-25] MEDS: CARBIDOPA/LEVODOPA 25/100MG TAB PO SCH ×3 (08:18→22:00)
[2021-04-25] MEDS: DOCUSATE SODIUM/SENNA 50/8.6MG TAB PO SCH (08:18)
[2021-04-25] MEDS: ADVANCED PROBIOTIC 1250 MG CAPSULE PO SCH (08:19)
[2021-04-25] MEDS: MAGNESIUM OXIDE 400 MG TAB PO SCH ×2 (08:19→22:03)
[2021-04-25] MEDS: FERROUS SULFATE 325 MG TAB PO SCH (09:59)
--- NOTE | 2021-04-25 17:59 | Hospitalist Progress Note ---
Date of Service April 25, 2021 Assessment & Plan (1) Pneumonia: (2) Catheter-associated urinary tract infection: Plan: This is a 76-year-old female with PMH Parkinson's, Gtzyylu-Vgkgp-Gblrb disease, HTN, HLD, history of TIA, CKD stage III, chronic Romeo catheter with recurrent UTIs, wheelchair-bound, multiple lower extremity surgeries, who presented to the ED for evaluation of shortness of breath and wheezing. 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 On Ambien. 04/18 - visual and auditory hallucinations, worsening delusions/paranoia. Per psychiatry, tapered Risperdal in favor of trial of Zyprexa 2.5 mg at bedtime. Zyprexa increased to 5 mg at bedtime on 04/22 04/24 - Decrease Zyprexa back to 2.5mg qhs given emergence of side effects (daytime fatigue, flattening of affect and softer speech) at higher dose. May need to consider reducing dopamine agent for Parkinson's to better target psychotic symptoms versus Seroquel trail if symptoms persist on low dose Zyprexa. CAUTI:Chronic indwelling Romeo catheter History of recurrent UTIs. UA was suggestive of infection, 03/12 urine culture Enterobacter cloacae and E. coli. Completed Levaquin. 04/18 - reported burning at Romeo site Repeat urine culture growing Enterobacter cloacae, multidrug-resistant. On course of merrem pending ID consult Discussed with urology regarding long-term management of Romeo catheter. Romeo was placed a few months ago due to family request of patient's bedbound status. Romeo exchanged this admission and will need this changed q30 days. Outpatient follow-up with urology. Chest pain - resolved -Developed chest pain on 03/27 and was transferred to [facility] with telemetry -Troponin negative x2, EKG nonischemic -Reproducible on exam, likely musculoskeletal in nature -Another episode of chest pain on 04/06 evening, EKG and troponin unremarkable Chronic Diastolic CHF pt with episode of decompensated CHF while hospitalized, now resolved -Echo 03/21/2021 -EF 55-60%, grade 2 diastolic dysfunction 03/14 CXR: Mild pulmonary edema. Possible small left pleural effusion 03/14 IV dose of Lasix 03/28 IV Lasix x 1 dose euvolemic today, compensated TIA Patient was a stroke alert overnight (03/20-03/21) Likely TIA - involving the right hemisphere with left facial droop yet on imaging has no evidence for a completed event Head and neck CTA, brain MRI unremarkable for acute findings Neurology consulted, input appreciated Do not have sufficient evidence to recommend adding Plavix to her aspirin but will observe her for recurrent events and if they do enlarge then certainly would add another antiplatelet agent Recommend to continue aspirin 81 mg daily, and 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 Fields Pneumonia Admission CXR - bibasilar infiltration more on the right could be secondary to aspiration versus HCAP Initial lactic acid 3.2---> 1.9, no other signs of sepsis. MRSA screen negative Zosyn 03/12 --> change to Augmentin 03/14 -->Levaquin 03/15 d/t E.cloacae and E. coli in UCx --> stop date 03/19 Blood cultures negative Has had speech evaluation Recommended aspiration precaution during feeding - If the condition persist will need to have a formal barium swallow No fever and no chills CMT (Uhlbedl-Ueokg-Yefmr disease): S/p multiple lower extremity procedures, most recently s/p left knee closed reduction total knee arthroplasty subluxation on 02/16/2021 - patient is to remain nonweightbearing of the left lower extremity and limited weightbearing on the right lower extremity Pain controlled with hydrocodone/acetaminophen Abnormal Left ankle XR Chronic multiple joint pain, more on the left leg 03/15 x-ray left ankle: A 1.8 cm linear ossific density posterior to the talus may represent an avulsion fracture from the dorsal calcaneus. Clinical correlation will be essential. Orthopedic consulted for left calcaneal superior posterior avulsion fracture status post fall: High tide walking boot removed, replaced with a dorsiflexion splint with a negative relief under the left heel and lambs wool padding to provide essentially neutral support for neutral dorsiflexion of the left ankle and heel and foot. Orthopedic recommending may use the walking boot for transfers or ambulating and wheelchair as necessary. Follow-up with outpatient orthopedics. Dr. Crain, [facility] [place]. Per patient request, bilateral ankle x-rays ordered on 04/13 - ordered, unchanged, follow up with Dr. Crain. Parkinson disease: Continue carbidopa-levodopa Chronic pain: Continue home regimen, recent numbness reported is likely to be a compression neuropathy. Cont to roll patient off this area. DVT prophylaxis: SQ Lovenox Disposition:Medically stable; awaiting placement. Case management following. Marie Ceballos DO [facility] Hospitalist Admission and Anticipated Discharge Date Admission Date: March 12, 2021 Subjective Pt seen in follow-up of delirium, recurrent UTI and pneumonia. chronic lower extremity pain and s/p Left TK arthroplasty she is bedbound and dependent on narcotics reports being upset at the [employer] today for contaminating her wash basin also reports acute foot numbness from the right ankle down which feels like pins and needles and started around noon she then said she feels like something is underneath her back. we discussed completely repositioning her off her right buttock to see if this helps. Review of Systems Review of Systems: All systems reviewed and negative except as indicated above. Physical Exam Physical Exam: CONSTITUTIONAL: WNWD, vitals as above, NAD EYES: normal conjunctivae, no scleral icterus ENT: external ear and nose normal, MMM NECK: trachea midline, RESPIRATORY: clear to auscultation bilaterally, no crackles, rales or wheezes, normal respiratory effort CARDIOVASCULAR: regular rate and rhythm, S1 and 2 heard without murmurs, gallops or rubs, no JVD, no peripheral edema, GASTROINTESTINAL: soft, nontender, ND no guarding MUSCULOSKELETAL: moves extremities symmetrically, leslie wraps to left knee, generalized weakness. head is normocephalic and atraumatic SKIN: warm and dry NEUROLOGIC: CN 2-12 grossly intact, +reports new sensation deficit on right foot just below the ankle, normal cognition, normal speech, no tremor PSYCHIATRIC: alert cooperative and oriented Results & Data Results & Data ([facility]) Vital Signs (Past 12 Hours) Vital Signs Temp Pulse Resp BP Pulse Ox 04/25/21 08:31 36.5 C 60 16 147/81 H 98 Laboratory Results BMP 04/25/21 07:06 Creatinine 0.59 L Medications Administered Current Inpatient Medications Acetaminophen (Acetaminophen 500 Mg Tab) 500 mg PO Q8@0000,0800,1600 REPLACED BY [facility] Stop: 05/19/21 15:59 Last Admin: 04/25/21 16:11 Dose: 500 mg Documented by: Hydrocodone Bitart/Acetaminophen (Hydrocodone/Acetamophen 5/325mg Tab) 1 tab PO Q8H REPLACED BY [facility] Stop: 05/01/21 10:29 Last Admin: 04/25/21 09:59 Dose: 1 tab Documented by: Albuterol (Albuterol 0.5% Neb Soln 2.5 Mg/0.5 Ml Vial) 2.5 mg NEB Q6R PRN PRN Reason: wheezing, SOB Stop: 05/11/21 17:17 Last Admin: 04/01/21 21:09 Dose: 2.5 mg Documented by: Albuterol (Albut/Ipratrop 3mg/0.5mg Neb 3 Ml Vial) 3 ml NEB Q4R PRN PRN Reason: Shortness Of Breath Or Wheezing Stop: 05/11/21 10:48 Last Admin: 03/28/21 11:17 Dose: 3 ml Documented by: Amlodipine Besylate (Amlodipine Besylate 5 Mg Tab) 5 mg PO QAM REPLACED BY [facility] Stop: 05/11/21 12:14 Last Admin: 04/25/21 08:18 Dose: 5 mg Documented by: Aspirin (Aspirin 81 Mg Ectab) 81 mg PO DAILY REPLACED BY [facility] Stop: 05/11/21 08:59 Last Admin: 04/25/21 08:18 Dose: 81 mg Documented by: Carbidopa/Levodopa (Carbidopa/Levodopa 25/100mg Tab) 1 tab PO TID REPLACED BY [facility] Stop: 05/11/21 20:59 Last Admin: 04/25/21 15:07 Dose: 1 tab Documented by: Diclofenac Sodium (Diclofenac Sod 1% Gel 100 Gm Tube) 2 gm EXT Q6 MARIBELL Stop: 05/11/21 15:29 Last Admin: 04/25/21 12:42 Dose: 2 gm Documented by: Docusate Sodium (Docusate Sodium 100 Mg Cap) 100 mg PO DAILY PRN PRN Reason: Constipation Stop: 05/11/21 16:59 Last Admin: 04/06/21 02:36 Dose: 100 mg Documented by: Ezetimibe (Ezetimibe 10 Mg Tablet) 10 mg PO HS REPLACED BY [facility] Stop: 05/11/21 20:59 Last Admin: 04/24/21 20:58 Dose: 10 mg Documented by: Enoxaparin Sodium (Enoxaparin Inj 40 Mg/0.4 Ml Syr) 40 mg SQ Q24H REPLACED BY [facility] Stop: 05/11/21 16:59 Last Admin: 04/24/21 20:56 Dose: 40 mg Documented by: Ferrous Sulfate (Ferrous Sulfate 325 Mg Tab) 325 mg PO DAILY@1100 REPLACED BY [facility] Stop: 05/11/21 10:59 Last Admin: 04/25/21 09:59 Dose: 325 mg Documented by: Gabapentin (Gabapentin 100 Mg Cap) 200 mg PO TID REPLACED BY [facility] Stop: 05/11/21 20:59 Last Admin: 04/25/21 15:06 Dose: 200 mg Documented by: Promethazine HCl 12.5 mg/ (Sodium Chloride) 50.5 mls @ 202 mls/hr IV Q6H PRN PRN Reason: Nausea And Vomiting Stop: 05/11/21 20:07 Last Infusion: 04/17/21 19:58 Dose: Infused Documented by: Meropenem 500 mg/ Syringe 10 mls @ 2 mls/min IV Q6H REPLACED BY [facility]; Protocol Stop: 04/30/21 08:59 Last Admin: 04/25/21 16:11 Dose: 2 mls/min Documented by: Lactase (Lactase 3000 Unit Tab) 3,000 units PO AC REPLACED BY [facility] Stop: 05/11/21 16:59 Last Admin: 04/25/21 16:11 Dose: 3,000 units Documented by: Lactobacillus Acidoph/Casei/Rhamnos (Advanced Probiotic 1250 Mg Capsule) 2 cap PO DAILY REPLACED BY [facility] Stop: 05/11/21 14:29 Last Admin: 04/25/21 08:19 Dose: 2 cap Documented by: Lamotrigine (Lamotrigine 25 Mg Tab) 75 mg PO HS REPLACED BY [facility] Stop: 05/11/21 20:59 Last Admin: 04/24/21 20:56 Dose: 75 mg Documented by: Lidocaine (Lidocaine 5% 1 Patch) 1 patch TD DAILY REPLACED BY [facility] Stop: 05/11/21 08:59 Last Admin: 04/25/21 08:15 Dose: 1 patch Documented by: Magnesium Oxide (Magnesium Oxide 400 Mg Tab) 400 mg PO BID REPLACED BY [facility] Stop: 05/18/21 20:59 Last Admin: 04/25/21 08:19 Dose: 400 mg Documented by: Metoprolol Tartrate (Metoprolol Tartrate 25 Mg Tab) 25 mg PO BID REPLACED BY [facility] Stop: 05/17/21 20:24 Last Admin: 04/25/21 08:17 Dose: 25 mg Documented by: Miscellaneous (Remove Lidoderm Patch) 1 ea N/A HS MARIBELL Stop: 05/11/21 20:59 Last Admin: 04/24/21 21:42 Dose: 1 ea Documented by: Miscellaneous Information (Meropenem Consult Active) 1 ea N/A UD PRN PRN Reason: Consult Stop: 05/20/21 08:49 Nitroglycerin (Nitroglycerin Sl 0.4 Mg/Tab Tab) 0.4 mg SL PRN PRN PRN Reason: Chest Pain Stop: 05/22/21 21:40 Last Admin: 04/22/21 22:16 Dose: 0.4 mg Documented by: Olanzapine (Olanzapine 2.5 Mg Tab) 2.5 mg PO HS REPLACED BY [facility] Stop: 05/24/21 20:59 Last Admin: 04/24/21 20:57 Dose: 2.5 mg Documented by: Pantoprazole Sodium (Pantoprazole 40 Mg Tab) 40 mg PO DAILY REPLACED BY [facility] Stop: 05/11/21 08:59 Last Admin: 04/25/21 08:17 Dose: 40 mg Documented by: Polyethylene Glycol (Polyethylene (Miralax) 17 Gm Pack) 17 gm PO DAILY PRN PRN Reason: Constipation Stop: 05/11/21 16:59 Last Admin: 03/18/21 08:07 Dose: 17 gm Documented by: Polyethylene Glycol (Polyethylene (Miralax) 17 Gm Pack) 17 gm PO DAILY PRN PRN Reason: Constipation Stop: 05/14/21 04:42 Potassium Chloride (Potassium Chloride 10 Meq Tabcr) 10 meq PO BID REPLACED BY [facility] Stop: 05/11/21 20:59 Last Admin: 04/25/21 08:16 Dose: 10 meq Documented by: Senna/Docusate Sodium (Docusate Sodium/Senna 50/8.6mg Tab) 1 tab PO QAM REPLACED BY [facility] Stop: 05/14/21 04:44 Last Admin: 04/25/21 08:18 Dose: 1 tab Documented by: Sumatriptan Succinate (Sumatriptan Succinate 25 Mg Tab) 25 mg PO DAILY PRN PRN Reason: Migraine Headache Stop: 05/08/21 10:18 Last Admin: 04/17/21 19:59 Dose: 25 mg Documented by: Zolpidem Tartrate (Zolpidem Tartrate 5 Mg Tab) 5 mg PO HS REPLACED BY [facility] Stop: 05/02/21 20:59 Last Admin: 04/24/21 21:42 Dose: 5 mg Documented by:
[2021-04-25] MEDS: ALBUT/IPRATROP 3MG/0.5MG NEB 3 ML VIAL NEB PRN (21:12)
--- NOTE | 2021-04-25 21:56 | XRay Report ---
XR chest 1V portable CLINICAL HISTORY: sob. COMPARISON STUDY: 03/28/2021 TECHNIQUE: 1 view of the chest FINDINGS: Single frontal view of the chest demonstrates the heart to again be enlarged. There is a decreased in spiratory effort with elevation of the hemidiaphragms and crowding of the bronchovascular markings at the lung bases and centrally. The lungs are clear of alveolar opacities. There is no evidence for pl eural effusion. There is no evidence for vascular congestion. There is no acute osseous pathology. IMPRESSION: There is a decreased inspiratory effort with otherwise no acute chest disease. ACT 112: Negative or not required by law. Electronically signed by: Eliot Webber M.D. 04/25/2021 9:55 PM
[2021-04-25] MEDS: ENOXAPARIN INJ 40 MG/0.4 ML SYR SQ SCH (22:01)
[2021-04-25] MEDS: EZETIMIBE 10 MG TABLET PO SCH (22:02)
[2021-04-25] MEDS: OLANZAPINE 2.5 MG TAB PO SCH (22:04)
[2021-04-25] MEDS: lamoTRIgine 25 MG TAB PO SCH (22:04)
[2021-04-25] MEDS: ZOLPIDEM TARTRATE 5 MG TAB PO SCH (22:16)
[2021-04-26] MEDS: DICLOFENAC SOD 1% GEL 100 GM TUBE EXT SCH ×5 (01:43→23:37)
[2021-04-26] MEDS: HYDROCODONE/ACETAMOPHEN 5/325MG TAB PO SCH ×3 (01:43→18:02)
[2021-04-26] MEDS: ACETAMINOPHEN 500 MG TAB PO SCH ×4 (01:43→23:36)
[2021-04-26] MEDS: MEROPENEM 500 MG in SYRINGE 0 ML IV SCH ×2 (04:57→11:56)
[2021-04-26] MEDS: LACTASE 3000 UNIT TAB PO SCH ×3 (08:42→16:30)
[2021-04-26] MEDS: ADVANCED PROBIOTIC 1250 MG CAPSULE PO SCH (08:48)
[2021-04-26] MEDS: ASPIRIN 81 MG ECTAB PO SCH (08:48)
[2021-04-26] MEDS: PANTOprazole 40 MG TAB PO SCH (08:48)
[2021-04-26] MEDS: MAGNESIUM OXIDE 400 MG TAB PO SCH ×2 (08:49→20:23)
[2021-04-26] MEDS: METOPROLOL TARTRATE 25 MG TAB PO SCH ×2 (08:49→20:23)
[2021-04-26] MEDS: LIDOCAINE 5% 1 PATCH TD SCH (08:50)
[2021-04-26] MEDS: POTASSIUM CHLORIDE 10 MEQ TABCR PO SCH ×2 (08:50→20:23)
[2021-04-26] MEDS: GABAPENTIN 100 MG CAP PO SCH ×3 (08:52→20:22)
[2021-04-26] MEDS: CARBIDOPA/LEVODOPA 25/100MG TAB PO SCH ×3 (08:53→20:23)
--- NOTE | 2021-04-26 09:52 | Hospitalist Progress Note ---
Date of Service April 26, 2021 Assessment & Plan (1) Pneumonia: (2) Catheter-associated urinary tract infection: Plan: This is a 76-year-old female with PMH Parkinson's, Dlrhgrb-Nrgjf-Pzhwg disease, HTN, HLD, history of TIA, CKD stage III, chronic Cheng catheter with recurrent UTIs, wheelchair-bound, multiple lower extremity surgeries, who presented to the ED for evaluation of shortness of breath and wheezing. 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 On Ambien. 04/18 - visual and auditory hallucinations, worsening delusions/paranoia. Per psychiatry, tapered Risperdal in favor of trial of Zyprexa 2.5 mg at bedtime. Zyprexa increased to 5 mg at bedtime on 04/22 04/24 - Decrease Zyprexa back to 2.5mg qhs given emergence of side effects (daytime fatigue, flattening of affect and softer speech) at higher dose. May need to consider reducing dopamine agent for Parkinson's to better target psychotic symptoms versus Seroquel trail if symptoms persist on low dose Zyprexa. CAUTI:Chronic indwelling Cheng catheter History of recurrent UTIs. Patient overdue for follow-up with urology---> Alexandrea BETANCOURT to arrange for outpatient follow-up for management of her chronic Cheng UA was suggestive of infection, 03/12 urine culture Enterobacter cloacae and E. coli. Completed Levaquin. 04/18 - reports burning at Cheng site Repeat urine culture growing Enterobacter cloacae, multidrug-resistant. On meropenem Unclear if true infection or colonization ID consulted -presence of bacteriuria and pyuria expected with an indwelling catheter and has no specificity for UTI. No systemic s/sx of infection. Consider other alternatives for urinary incontinence care. Stop meropenem and observe for signs directly attributable to her infection and urinary tract before restarting. Remove Cheng Cheng catheter was placed a few months ago due to family request of patient's bedbound status - patient refused cheng removal this afternoon. Will discuss risk of recurrent infection with indwelling cheng with patient and family Replaced on 04/24. If remains in place, will need monthly changes Outpatient follow-up with urology Chest pain - resolved -Developed chest pain on 03/27 and was transferred to [facility] with telemetry -Troponin negative x2, EKG nonischemic -Reproducible on exam, likely musculoskeletal in nature -Another episode of chest pain on 04/06 evening, EKG and troponin unremarkable Chronic Diastolic CHF pt with episode of decompensated CHF while hospitalized, now resolved -Echo 03/21/2021 -EF 55-60%, grade 2 diastolic dysfunction 03/14 CXR: Mild pulmonary edema. Possible small left pleural effusion 03/14 IV dose of Lasix 03/28 IV Lasix x 1 dose euvolemic today, daily weights TIA Patient was a stroke alert overnight (03/20-03/21) Likely TIA - involving the right hemisphere with left facial droop yet on imaging has no evidence for a completed event Head and neck CTA, brain MRI unremarkable for acute findings Neurology consulted, input appreciated Do not have sufficient evidence to recommend adding Plavix to her aspirin but will observe her for recurrent events and if they do enlarge then certainly would add another antiplatelet agent Recommend to continue aspirin 81 mg daily, and 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 Fields Pneumonia Admission CXR - bibasilar infiltration more on the right could be secondary to aspiration versus HCAP Initial lactic acid 3.2---> 1.9, no other signs of sepsis. MRSA screen negative Zosyn 03/12 --> change to Augmentin 03/14 -->Levaquin 03/15 d/t E.cloacae and E. coli in UCx --> stop date 03/19 Blood cultures negative Has had speech evaluation Recommended aspiration precaution during feeding - If the condition persist will need to have a formal barium swallow No fever and no chills CMT (Ccbrkmg-Dylyp-Wekbv disease): S/p multiple lower extremity procedures, most recently s/p left knee closed reduction total knee arthroplasty subluxation on 02/16/2021 - patient is to remain nonweightbearing of the left lower extremity and limited weightbearing on the right lower extremity Pain controlled with hydrocodone/acetaminophen Abnormal Left ankle XR Chronic multiple joint pain, more on the left leg 03/15 x-ray left ankle: A 1.8 cm linear ossific density posterior to the talus may represent an avulsion fracture from the dorsal calcaneus. Clinical correlation will be essential. Orthopedic consulted for left calcaneal superior posterior avulsion fracture sta tus post fall: High tide walking boot removed, replaced with a dorsiflexion splint with a negative relief under the left heel and lambs wool padding to provide essentially neutral support for neutral dorsiflexion of the left ankle and heel and foot. Orthopedic recommending may use the walking boot for transfers or ambulating and wheelchair as necessary. Follow-up with outpatient orthopedics. Dr. Crain, [facility] [place]. Per patient request, bilateral ankle x-rays ordered on 04/13 - ordered, unchanged, follow up with Dr. Crain. Parkinson disease: Continue carbidopa-levodopa Chronic pain: Continue home regimen DVT prophylaxis: SQ Lovenox Disposition:Medically stable; awaiting placement. Case management following. Admission and Anticipated Discharge Date Admission Date: March 12, 2021 Supervising Physician Co-Signing Physician Notes I have seen and examined the patient and have discussed the case with the provider above. I agree with the assessment and plan as stated. 76 yo F wtih multiple chronic comorbidities including chronic pain and bedbound status doing about the same today. Reports chronic pain being present. Now reports numbness from the right knee down to the foot. RLE is warm and well-perfused and she can move it and her foot as she has in the past. She continues to roll onto her right buttock despite multiple attempts by nurses today to get her off this area. She also is asking for increased pain medications but cannot clarify what is not working. My physical exam reflects that above. Cont to provide supportive care and keep patient off this right leg and buttock area. If worsens may consider discussion with neurology. Tucker, DO Subjective Pt seen in follow-up of delirium, recurrent UTI and pneumonia. chronic lower extremity pain and s/p Left TK arthroplasty she is bedbound and dependent on narcotics feeling better with more frequent repositioning pleasant and cooperative. no fever, chills, CP, SOB, N/V, abdominal pain, dysuria, diarrhea or constipation Review of Systems Review of Systems: At least ten systems reviewed and negative except as noted in the HPI. Physical Exam Physical Exam: Gen: WD/WN, NAD, lying in bed, A&Ox3 with limited insight HEENT: Normocephalic, atraumatic, mucous membranes moist Lung: Clear to Auscultation bilaterally but diminished. No wheezes/rales/rhonchi Heart: Regular rate, regular rhythm, no murmurs, rubs, or gallops Abdomen: Soft, NT, ND +BS x 4 : Cheng Extremities: Chronic weakness, LLE brace in place, contractures of left hand. No edema Skin: Warm, no rash Results & Data Results & Data ([facility]) Vital Signs (Past 12 Hours) Vital Signs Temp Pulse Resp BP Pulse Ox 04/26/21 07:29 36.3 C L 54 L 14 152/71 H 98 04/25/21 23:00 36.8 C 66 20 131/71 96 04/25/21 22:00 72 169/78 H
[2021-04-26] MEDS: amLODIPine BESYLATE 5 MG TAB PO SCH (10:42)
[2021-04-26] MEDS: FERROUS SULFATE 325 MG TAB PO SCH (10:46)
[2021-04-26] MEDS: DOCUSATE SODIUM/SENNA 50/8.6MG TAB PO SCH (10:54)
[2021-04-26] MEDS: OLANZAPINE 2.5 MG TAB PO SCH (20:21)
[2021-04-26] MEDS: ENOXAPARIN INJ 40 MG/0.4 ML SYR SQ SCH (20:21)
[2021-04-26] MEDS: ZOLPIDEM TARTRATE 5 MG TAB PO SCH (20:21)
[2021-04-26] MEDS: lamoTRIgine 25 MG TAB PO SCH (20:22)
[2021-04-26] MEDS: EZETIMIBE 10 MG TABLET PO SCH (20:23)
[2021-04-27] MEDS: HYDROCODONE/ACETAMOPHEN 5/325MG TAB PO SCH ×3 (02:29→17:21)
[2021-04-27] MEDS: DICLOFENAC SOD 1% GEL 100 GM TUBE EXT SCH ×4 (06:16→23:41)
[2021-04-27] MEDS: DOCUSATE SODIUM/SENNA 50/8.6MG TAB PO SCH (08:36)
[2021-04-27] MEDS: amLODIPine BESYLATE 5 MG TAB PO SCH (08:36)
[2021-04-27] MEDS: LACTASE 3000 UNIT TAB PO SCH ×3 (08:37→16:31)
[2021-04-27] MEDS: ASPIRIN 81 MG ECTAB PO SCH (08:37)
[2021-04-27] MEDS: ADVANCED PROBIOTIC 1250 MG CAPSULE PO SCH (08:38)
[2021-04-27] MEDS: GABAPENTIN 100 MG CAP PO SCH ×3 (08:38→22:09)
[2021-04-27] MEDS: LIDOCAINE 5% 1 PATCH TD SCH (08:38)
[2021-04-27] MEDS: CARBIDOPA/LEVODOPA 25/100MG TAB PO SCH ×3 (08:38→22:09)
[2021-04-27] MEDS: MAGNESIUM OXIDE 400 MG TAB PO SCH ×2 (08:39→22:08)
[2021-04-27] MEDS: METOPROLOL TARTRATE 25 MG TAB PO SCH ×2 (08:39→22:10)
[2021-04-27] MEDS: PANTOprazole 40 MG TAB PO SCH (08:40)
[2021-04-27] MEDS: POTASSIUM CHLORIDE 10 MEQ TABCR PO SCH ×2 (08:41→22:08)
[2021-04-27] MEDS: ACETAMINOPHEN 500 MG TAB PO SCH ×3 (08:43→23:41)
--- NOTE | 2021-04-27 08:51 | Hospitalist Progress Note ---
Date of Service April 27, 2021 Assessment & Plan (1) Pneumonia: (2) Catheter-associated urinary tract infection: Plan: This is a 76-year-old female with PMH Parkinson's, Lldlvpy-Aoxor-Frxhe disease, HTN, HLD, history of TIA, CKD stage III, chronic Cheng catheter with recurrent UTIs, wheelchair-bound, multiple lower extremity surgeries, who presented to the ED for evaluation of shortness of breath and wheezing. 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 On Ambien. 04/18 - visual and auditory hallucinations, worsening delusions/paranoia. Per psychiatry, tapered Risperdal in favor of trial of Zyprexa 2.5 mg at bedtime. Zyprexa increased to 5 mg at bedtime on 04/22 04/24 - Decrease Zyprexa back to 2.5mg qhs given emergence of side effects (daytime fatigue, flattening of affect and softer speech) at higher dose. May need to consider reducing dopamine agent for Parkinson's to better target psychotic symptoms versus Seroquel trail if symptoms persist on low dose Zyprexa. CAUTI:Chronic indwelling Cheng catheter History of recurrent UTIs. Patient overdue for follow-up with urology---> Alexandrea BETANCOURT to arrange for outpatient follow-up for management of her chronic Cheng UA was suggestive of infection, 03/12 urine culture Enterobacter cloacae and E. coli. Completed Levaquin. 04/18 - reports burning at Cheng site Repeat urine culture growing Enterobacter cloacae, multidrug-resistant. On meropenem Unclear if true infection or colonization ID consulted -presence of bacteriuria and pyuria expected with an indwelling catheter and has no specificity for UTI. No systemic s/sx of infection. Consider other alternatives for urinary incontinence care. Stop meropenem and observe for signs directly attributable to her infection and urinary tract before restarting. Remove Cheng Family and patient refused for cheng catheter removal. Patiend with longstanding overflow incontinence issues. Discussed increased risk for UTIs Replaced on 04/24. If remains in place, will need monthly changes Outpatient follow-up with urology Chest pain - resolved -Developed chest pain on 03/27 and was transferred to [facility] with telemetry -Troponin negative x2, EKG nonischemic -Reproducible on exam, likely musculoskeletal in nature -Another episode of chest pain on 04/06 evening, EKG and troponin unremarkable Chronic Diastolic CHF pt with episode of decompensated CHF while hospitalized, now resolved -Echo 03/21/2021 -EF 55-60%, grade 2 diastolic dysfunction 03/14 CXR: Mild pulmonary edema. Possible small left pleural effusion 03/14 IV dose of Lasix 03/28 IV Lasix x 1 dose euvolemic today, daily weights TIA Patient was a stroke alert overnight (03/20-03/21) Likely TIA - involving the right hemisphere with left facial droop yet on imaging has no evidence for a completed event Head and neck CTA, brain MRI unremarkable for acute findings Neurology consulted, input appreciated Do not have sufficient evidence to recommend adding Plavix to her aspirin but will observe her for recurrent events and if they do enlarge then certainly would add another antiplatelet agent Recommend to continue aspirin 81 mg daily, and 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 Fields Pneumonia Admission CXR - bibasilar infiltration more on the right could be secondary to aspiration versus HCAP Initial lactic acid 3.2---> 1.9, no other signs of sepsis. MRSA screen negative Zosyn 03/12 --> change to Augmentin 03/14 -->Levaquin 03/15 d/t E.cloacae and E. coli in UCx --> stop date 03/19 Blood cultures negative Has had speech evaluation Recommended aspiration precaution during feeding - If the condition persist will need to have a formal barium swallow No fever and no chills CMT (Jtufukj-Pagmy-Slflz disease): S/p multiple lower extremity procedures, most recently s/p left knee closed reduction total knee arthroplasty subluxation on 02/16/2021 - patient is to remain nonweightbearing of the left lower extremity and limited weightbearing on the right lower extremity Pain controlled with hydrocodone/acetaminophen Abnormal Left ankle XR Chronic multiple joint pain, more on the left leg 03/15 x-ray left ankle: A 1.8 cm linear ossific density posterior to the talus may represent an avulsion fracture from the dorsal calcaneus. Clinical correlation will be essential. Orthopedic consulted for left calcaneal superior posterior avulsion fracture status post fall: High tide walking boot removed, replaced with a dorsiflexion splint with a negative relief under the left heel and lambs wool padding to provide essentially neutral support for neutral dorsiflexion of the left ankle and heel and foot. Orthopedic recommending may use the walking boot for transfers or ambulating and wheelchair as necessary. Follow-up with outpatient orthopedics. Dr. Crain, [facility] [place], [place]. Per patient request, bilateral ankle x-rays ordered on 04/13 - ordered, unchanged, follow up with Dr. Crain. Parkinson disease: Continue carbidopa-levodopa Chronic pain: Continue home regimen DVT prophylaxis: SQ Lovenox Disposition:Medically stable; awaiting placement. Case management following. Admission and Anticipated Discharge Date Admission Date: March 12, 2021 Supervising Physician Co-Signing Physician Notes Patient seen and examined by me, care coordinated with Esther Cervantes PA-C, please refer to her note above for further detail. Patient is currently laying in bed, in no acute distress. She has contraction of her left hand, and is asking about the splint. We will try to obtain one. Otherwise denies any fevers chills abdominal pain chest pain shortness of breath. Discussed long-term Cheng catheter use, and increased risk of infection, patient insists on keeping Cheng catheter. MD Enio Subjective Pt seen in follow-up of delirium, recurrent UTI and pneumonia. chronic lower extremity pain and s/p Left TK arthroplasty she is bedbound and dependent on narcotics No fever, chills, CP, SOB, N/V, abdominal pain, dysuria, diarrhea or constipation Has hand contraction - asking about split - will try to obtain one Review of Systems Review of Systems: At least ten systems reviewed and negative except as noted in the HPI. Physical Exam Physical Exam: Gen: WD/WN, NAD, lying in bed, A&Ox3 with limited insight HEENT: Normocephalic, atraumatic, mucous membranes moist Lung: Clear to Auscultation bilaterally but diminished. No wheezes/rales/rhonchi Heart: Regular rate, regular rhythm, no murmurs, rubs, or gallops Abdomen: Soft, NT, ND +BS x 4 : Cheng Extremities: Chronic weakness, LLE brace in place, contractures of left hand. No edema Skin: Warm, no rash Results & Data Results & Data ([facility]) Vital Signs (Past 12 Hours) Vital Signs Temp Pulse Pulse Resp BP Pulse Ox 04/27/21 07:21 36.7 C 51 L 12 132/72 95 04/27/21 02:30 51 L 16 105/65 96 04/26/21 23:35 36.7 C 53 L 18 130/75 96
[2021-04-27] MEDS: FERROUS SULFATE 325 MG TAB PO SCH (11:54)
[2021-04-27] MEDS: ZOLPIDEM TARTRATE 5 MG TAB PO SCH (22:06)
[2021-04-27] MEDS: lamoTRIgine 25 MG TAB PO SCH (22:07)
[2021-04-27] MEDS: EZETIMIBE 10 MG TABLET PO SCH (22:07)
[2021-04-27] MEDS: OLANZAPINE 2.5 MG TAB PO SCH (22:07)
[2021-04-27] MEDS: ENOXAPARIN INJ 40 MG/0.4 ML SYR SQ SCH (22:09)
[2021-04-28] MEDS: HYDROCODONE/ACETAMOPHEN 5/325MG TAB PO SCH ×3 (02:47→17:24)
[2021-04-28] MEDS: DICLOFENAC SOD 1% GEL 100 GM TUBE EXT SCH ×3 (05:47→17:24)
[2021-04-28] MEDS: ADVANCED PROBIOTIC 1250 MG CAPSULE PO SCH (07:57)
[2021-04-28] MEDS: PANTOprazole 40 MG TAB PO SCH (07:58)
[2021-04-28] MEDS: METOPROLOL TARTRATE 25 MG TAB PO SCH ×2 (07:58→21:51)
[2021-04-28] MEDS: DOCUSATE SODIUM/SENNA 50/8.6MG TAB PO SCH (07:58)
[2021-04-28] MEDS: LACTASE 3000 UNIT TAB PO SCH ×3 (07:58→16:02)
[2021-04-28] MEDS: POTASSIUM CHLORIDE 10 MEQ TABCR PO SCH ×2 (07:58→21:52)
[2021-04-28] MEDS: MAGNESIUM OXIDE 400 MG TAB PO SCH ×2 (07:58→21:49)
[2021-04-28] MEDS: GABAPENTIN 100 MG CAP PO SCH ×3 (07:59→21:49)
[2021-04-28] MEDS: ACETAMINOPHEN 500 MG TAB PO SCH ×2 (07:59→16:02)
[2021-04-28] MEDS: ASPIRIN 81 MG ECTAB PO SCH (07:59)
[2021-04-28] MEDS: LIDOCAINE 5% 1 PATCH TD SCH (07:59)
[2021-04-28] MEDS: CARBIDOPA/LEVODOPA 25/100MG TAB PO SCH (08:00)
[2021-04-28] MEDS: amLODIPine BESYLATE 5 MG TAB PO SCH (08:00)
--- NOTE | 2021-04-28 10:44 | Hospitalist Progress Note ---
Date of Service April 28, 2021 Assessment & Plan (1) Pneumonia: (2) Catheter-associated urinary tract infection: Plan: This is a 76-year-old female with PMH Parkinson's, Ygwyhbq-Wsktx-Gpreg disease, HTN, HLD, history of TIA, CKD stage III, chronic Cheng catheter with recurrent UTIs, wheelchair-bound, multiple lower extremity surgeries, who presented to the ED for evaluation of shortness of breath and wheezing. 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 On Ambien. 04/18 - visual and auditory hallucinations, worsening delusions/paranoia. Per psychiatry, tapered Risperdal in favor of trial of Zyprexa 2.5 mg at bedtime. Zyprexa increased to 5 mg at bedtime on 04/22 04/24 - Decrease Zyprexa back to 2.5mg qhs given emergence of side effects (daytime fatigue, flattening of affect and softer speech) at higher dose. May need to consider reducing dopamine agent for Parkinson's to better target psychotic symptoms versus Seroquel trail if symptoms persist on low dose Zyprexa. discussed with psychiatry, will DC Sinemet afternoon dose as it can be driving her psychosis CAUTI:Chronic indwelling Cheng catheter History of recurrent UTIs. Patient overdue for follow-up with urology---> Alexandrea BETANCOURT to arrange for outpatient follow-up for management of her chronic Cheng UA was suggestive of infection, 03/12 urine culture Enterobacter cloacae and E. coli. Completed Levaquin. 04/18 - reports burning at Cheng site Repeat urine culture growing Enterobacter cloacae, multidrug-resistant. On meropenem Unclear if true infection or colonization ID consulted -presence of bacteriuria and pyuria expected with an indwelling catheter and has no specificity for UTI. No systemic s/sx of infection. Consider other alternatives for urinary incontinence care. Stop meropenem and observe for signs directly attributable to her infection and urinary tract before restarting. Remove Cheng Family and patient refused for cheng catheter removal. Patiend with longstanding overflow incontinence issues. Discussed increased risk for UTIs Replaced on 04/24. If remains in place, will need monthly changes Outpatient follow-up with urology Chest pain - resolved -Developed chest pain on 03/27 and was transferred to [facility] with telemetry -Troponin negative x2, EKG nonischemic -Reproducible on exam, likely musculoskeletal in nature -Another episode of chest pain on 04/06 evening, EKG and troponin unremarkable Chronic Diastolic CHF pt with episode of decompensated CHF while hospitalized, now resolved -Echo 03/21/2021 -EF 55-60%, grade 2 diastolic dysfunction 03/14 CXR: Mild pulmonary edema. Possible small left pleural effusion 03/14 IV dose of Lasix 03/28 IV Lasix x 1 dose euvolemic today, daily weights TIA Patient was a stroke alert overnight (03/20-03/21) Likely TIA - involving the right hemisphere with left facial droop yet on imaging has no evidence for a completed event Head and neck CTA, brain MRI unremarkable for acute findings Neurology consulted, input appreciated Do not have sufficient evidence to recommend adding Plavix to her aspirin but will observe her for recurrent events and if they do enlarge then certainly would add another antiplatelet agent Recommend to continue aspirin 81 mg daily, and 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 Fields Pneumonia Admission CXR - bibasilar infiltration more on the right could be secondary to aspiration versus HCAP Initial lactic acid 3.2---> 1.9, no other signs of sepsis. MRSA screen negative Zosyn 03/12 --> change to Augmentin 03/14 -->Levaquin 03/15 d/t E.cloacae and E. coli in UCx --> stop date 03/19 Blood cultures negative Has had speech evaluation Recommended aspiration precaution during feeding - If the condition persist will need to have a formal barium swallow No fever and no chills CMT (Nqkvryt-Cpqbt-Lrtma disease): S/p multiple lower extremity procedures, most recently s/p left knee closed reduction total knee arthroplasty subluxation on 02/16/2021 - patient is to remain nonweightbearing of the left lower extremity and limited weightbearing on the right lower extremity Pain controlled with hydrocodone/acetaminophen Abnormal Left ankle XR Chronic multiple joint pain, more on the left leg 03/15 x-ray left ankle: A 1.8 cm linear ossific density posterior to the talus may represent an avulsion fracture from the dorsal calcaneus. Clinical correlation will be essential. Orthopedic consulted for left calcaneal superior posterior avulsion fracture status post fall: High tide walking boot removed, replaced with a dorsiflexion splint with a negative relief under the left heel and lambs wool padding to provide essentially neutral support for neutral dorsiflexion of the left ankle and heel and foot. Orthopedic recommending may use the walking boot for transfers or ambulating and wheelchair as necessary. Follow-up with outpatient orthopedics. Dr. Crain, [facility] [place]. Per patient request, bilateral ankle x-rays ordered on 04/13 - ordered, unchanged, follow up with Dr. Crain. Parkinson disease: Continue carbidopa-levodopa Chronic pain: Continue home regimen DVT prophylaxis: SQ Lovenox Disposition:Medically stable; awaiting placement. Case management following. Admission and Anticipated Discharge Date Admission Date: March 12, 2021 Subjective Pt seen in follow-up of recurrent UTI, pneumonia, hallucinations/paranoia. chronic lower extremity pain and s/p Left TK arthroplasty No fever, chills, CP, SOB, N/V, abdominal pain, dysuria, diarrhea or constipation Has hand contraction - asking about split - working on obtaining one Discussed w/psychiatry - will change carbidopa-levodopa to daily medication (stop afternoon dose) Review of Systems Review of Systems: All systems reviewed & are unremarkable except as noted in Subjective Physical Exam Physical Exam: Gen: WD/WN, F, chronically ill appearing, NAD, A&O x3 HEENT: Normocephalic, atraumatic, sclerae anicteric, mucous membranes moist. Lung: Clear to Auscultation bilaterally, no wheezes/rales/rhonchi Heart: Regular rate, regular rhythm, no murmurs, rubs, or gallops Abdomen: Soft, NT, ND +BS x 4 Extremities: LLE brace in place Skin: Warm, no rash, negative turgor. : +Cheng cath Psych: flat affect Results & Data Results & Data ([facility]) Vital Signs (Past 12 Hours) Vital Signs Temp Pulse Resp BP Pulse Ox 04/28/21 07:26 36.6 C 55 L 18 136/69 98 Medications Administered Current Inpatient Medications Acetaminophen (Acetaminophen 500 Mg Tab) 500 mg PO Q8@0000,0800,1600 [facility] Stop: 05/19/21 15:59 Last Admin: 04/28/21 07:59 Dose: 500 mg Documented by: Hydrocodone Bitart/Acetaminophen (Hydrocodone/Acetamophen 5/325mg Tab) 1 tab PO Q8H [facility] Stop: 05/01/21 10:29 Last Admin: 04/28/21 02:47 Dose: 1 tab Documented by: Albuterol (Albuterol 0.5% Neb Soln 2.5 Mg/0.5 Ml Vial) 2.5 mg NEB Q6R PRN PRN Reason: wheezing, SOB Stop: 05/11/21 17:17 Last Admin: 04/01/21 21:09 Dose: 2.5 mg Documented by: Albuterol (Albut/Ipratrop 3mg/0.5mg Neb 3 Ml Vial) 3 ml NEB Q4R PRN PRN Reason: Shortness Of Breath Or Wheezing Stop: 05/11/21 10:48 Last Admin: 04/25/21 21:12 Dose: 3 ml Documented by: Amlodipine Besylate (Amlodipine Besylate 5 Mg Tab) 5 mg PO QAM [facility] [place] Stop: 05/11/21 12:14 Last Admin: 04/28/21 08:00 Dose: 5 mg Documented by: Aspirin (Aspirin 81 Mg Ectab) 81 mg PO DAILY [facility] Stop: 05/11/21 08:59 Last Admin: 04/28/21 07:59 Dose: 81 mg Documented by: Carbidopa/Levodopa (Carbidopa/Levodopa 25/100mg Tab) 1 tab PO BID [facility] Stop: 05/28/21 08:59 Diclofenac Sodium (Diclofenac Sod 1% Gel 100 Gm Tube) 2 gm EXT Q6 [facility] Stop: 05/11/21 15:29 Last Admin: 04/28/21 05:47 Dose: Not Given Documented by: Docusate Sodium (Docusate Sodium 100 Mg Cap) 100 mg PO DAILY PRN PRN Reason: Constipation Stop: 05/11/21 16:59 Last Admin: 04/06/21 02:36 Dose: 100 mg Documented by: Ezetimibe (Ezetimibe 10 Mg Tablet) 10 mg PO HS [facility] Stop: 05/11/21 20:59 Last Admin: 04/27/21 22:07 Dose: 10 mg Documented by: Enoxaparin Sodium (Enoxaparin Inj 40 Mg/0.4 Ml Syr) 40 mg SQ Q24H [facility] [place] Stop: 05/11/21 16:59 Last Admin: 04/27/21 22:09 Dose: 40 mg Documented by: Ferrous Sulfate (Ferrous Sulfate 325 Mg Tab) 325 mg PO DAILY@1100 [facility] Stop: 05/11/21 10:59 Last Admin: 04/27/21 11:54 Dose: 325 mg Documented by: Gabapentin (Gabapentin 100 Mg Cap) 200 mg PO TID [facility] Stop: 05/11/21 20:59 Last Admin: 04/28/21 07:59 Dose: 200 mg Documented by: Promethazine HCl 12.5 mg/ (Sodium Chloride) 50.5 mls @ 202 mls/hr IV Q6H PRN PRN Reason: Nausea And Vomiting Stop: 05/11/21 20:07 Last Infusion: 04/17/21 19:58 Dose: Infused Documented by: Lactase (Lactase 3000 Unit Tab) 3,000 units PO AC [facility] Stop: 05/11/21 16:59 Last Admin: 04/28/21 07:58 Dose: 3,000 units Documented by: Lactobacillus Acidoph/Casei/Rhamnos (Advanced Probiotic 1250 Mg Capsule) 2 cap PO DAILY [facility] Stop: 05/11/21 14:29 Last Admin: 04/28/21 07:57 Dose: 2 cap Documented by: Lamotrigine (Lamotrigine 25 Mg Tab) 75 mg PO [facility] Stop: 05/11/21 20:59 Last Admin: 04/27/21 22:07 Dose: 75 mg Documented by: Lidocaine (Lidocaine 5% 1 Patch) 1 patch TD DAILY [facility] Stop: 05/11/21 08:59 Last Admin: 04/28/21 07:59 Dose: 1 patch Documented by: Magnesium Oxide (Magnesium Oxide 400 Mg Tab) 400 mg PO BID [facility] Stop: 05/18/21 20:59 Last Admin: 04/28/21 07:58 Dose: 400 mg Documented by: Metoprolol Tartrate (Metoprolol Tartrate 25 Mg Tab) 25 mg PO BID [facility] Stop: 05/17/21 20:24 Last Admin: 04/28/21 07:58 Dose: 25 mg Documented by: Miscellaneous (Remove Lidoderm Patch) 1 ea N/A [facility] Stop: 05/11/21 20:59 Last Admin: 04/27/21 22:10 Dose: 1 ea Documented by: Nitroglycerin (Nitroglycerin Sl 0.4 Mg/Tab Tab) 0.4 mg SL PRN PRN PRN Reason: Chest Pain Stop: 05/22/21 21:40 Last Admin: 04/22/21 22:16 Dose: 0.4 mg Documented by: Olanzapine (Olanzapine 2.5 Mg Tab) 2.5 mg PO [facility] Stop: 05/24/21 20:59 Last Admin: 04/27/21 22:07 Dose: 2.5 mg Documented by: Pantoprazole Sodium (Pantoprazole 40 Mg Tab) 40 mg PO DAILY [facility] Stop: 05/11/21 08:59 Last Admin: 04/28/21 07:58 Dose: 40 mg Documented by: Polyethylene Glycol (Polyethylene (Miralax) 17 Gm Pack) 17 gm PO DAILY PRN PRN Reason: Constipation Stop: 05/14/21 04:42 Potassium Chloride (Potassium Chloride 10 Meq Tabcr) 10 meq PO BID [facility] Stop: 05/11/21 20:59 Last Admin: 04/28/21 07:58 Dose: 10 meq Documented by: Senna/Docusate Sodium (Docusate Sodium/Senna 50/8.6mg Tab) 1 tab PO QAM [facility] Stop: 05/14/21 04:44 Last Admin: 04/28/21 07:58 Dose: 1 tab Documented by: Sumatriptan Succinate (Sumatriptan Succinate 25 Mg Tab) 25 mg PO DAILY PRN PRN Reason: Migraine Headache Stop: 05/08/21 10:18 Last Admin: 04/17/21 19:59 Dose: 25 mg Documented by: Zolpidem Tartrate (Zolpidem Tartrate 5 Mg Tab) 5 mg PO [facility] Stop: 05/02/21 20:59 Last Admin: 04/27/21 22:06 Dose: 5 mg Documented by:
[2021-04-28] MEDS: FERROUS SULFATE 325 MG TAB PO SCH (11:08)
--- NOTE | 2021-04-28 11:15 | Communication Note ---
Date of Service: April 28, 2021 case reviewed briefly with Dr[address] Steen. unable to titrate Zyprexa due to sedation but seems overall more effective than Risperdal and less likely to contribute EPS. Would suggest tapering Sinemet as initially started as Parkinson's symptoms were interfering with gait but no longer ambulatory. Will eliminate afternoon dose of Sinemet on trial basis due to concern it may be contributing to her psychosis as out of proportion to any other cognitive deficits.
[2021-04-28] MEDS ORDERED: CARBIDOPA/LEVODOPA 25/100MG TAB PO SCH (21:00)
[2021-04-28] MEDS: ZOLPIDEM TARTRATE 5 MG TAB PO SCH (21:47)
[2021-04-28] MEDS: lamoTRIgine 25 MG TAB PO SCH (21:50)
[2021-04-28] MEDS: ENOXAPARIN INJ 40 MG/0.4 ML SYR SQ SCH (21:51)
[2021-04-28] MEDS: EZETIMIBE 10 MG TABLET PO SCH (21:51)
[2021-04-28] MEDS: OLANZAPINE 2.5 MG TAB PO SCH (21:52)
[2021-04-29] MEDS: DICLOFENAC SOD 1% GEL 100 GM TUBE EXT SCH ×5 (00:19→23:49)
[2021-04-29] MEDS: ACETAMINOPHEN 500 MG TAB PO SCH ×4 (00:20→23:49)
[2021-04-29] MEDS: HYDROCODONE/ACETAMOPHEN 5/325MG TAB PO SCH ×3 (02:19→18:14)
[2021-04-29] MEDS: CARBIDOPA/LEVODOPA 25/100MG TAB PO SCH (07:36)
[2021-04-29] MEDS: ASPIRIN 81 MG ECTAB PO SCH (07:36)
[2021-04-29] MEDS: ADVANCED PROBIOTIC 1250 MG CAPSULE PO SCH (07:36)
[2021-04-29] MEDS: DOCUSATE SODIUM/SENNA 50/8.6MG TAB PO SCH (07:36)
[2021-04-29] MEDS: amLODIPine BESYLATE 5 MG TAB PO SCH (07:36)
[2021-04-29] MEDS: PANTOprazole 40 MG TAB PO SCH (07:37)
[2021-04-29] MEDS: POTASSIUM CHLORIDE 10 MEQ TABCR PO SCH ×2 (07:37→20:10)
[2021-04-29] MEDS: LACTASE 3000 UNIT TAB PO SCH ×3 (07:37→16:47)
[2021-04-29] MEDS: MAGNESIUM OXIDE 400 MG TAB PO SCH ×2 (07:37→20:09)
[2021-04-29] MEDS: GABAPENTIN 100 MG CAP PO SCH ×3 (07:37→20:09)
[2021-04-29] MEDS: LIDOCAINE 5% 1 PATCH TD SCH (07:38)
[2021-04-29] MEDS: METOPROLOL TARTRATE 25 MG TAB PO SCH ×2 (07:40→20:10)
[2021-04-29] MEDS: FERROUS SULFATE 325 MG TAB PO SCH (11:04)
--- NOTE | 2021-04-29 13:15 | Psychiatric Progress Note ---
Date of Service April 29, 2021 Impression / Recommendations Impression 76 yo female with history of paranoid ideations related to cognitive decline now with superimposed delirium resulting in worsening hallucinations and delusions. Started Risperdal 03/24/21 which was then cross-tapered to olanzapine due to worsening bradykinesia and parkinsonism side effects. 04/29/21: significant parkinsonian features on exam today few hours after am dose, unclear how much is baseline vs EPS from Zyprexa Plan: d/c Zyprexa. Reassess ability to tolerate trial off of Sinemet. 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 Maxwell is a 76 yo female from [place], admitted on 03/16/21 for pneumonia and UTI. [facility]. Chief Complaint "I can't move my arm as much and my legs have spasms." Review of Systems Notes patient c/o pain in her ankles, left upper arm contracture Subjective Subjective Patient was seen & assessed and interval progress reviewed with liaison. Patient recognizes me but is less spontaneous in conversation. c/o drooling. Patient states that she felt better when she was on Risperdal. Reviewed her curret sinemet dosing. When asked re: paranoid delusions she just says "they aren't responding to me" Physical Exam Psychiatric Orientation: alert and cooperative Apperance: appropriately groomed Eye Contact: + fair eye contact Speech: normal rate/rhythm/volume of speech (softer) Affect: + flat affect Mood: + anxious mood Thought Process: + thought process not clear or coherent Thought Content: + paranoid Suicidal Thoughts: denies suicidal thoughts Homicidal Thoughts: denies homicidal thoughts Cognition: attention grossly intact and language grossly intact Vital Signs (Past 24 Hours) Last Vital Signs Temp 36.6 C 04/29/21 07:33 Pulse 53 L 04/29/21 07:33 Resp 16 04/29/21 07:33 BP 135/75 04/29/21 07:33 Pulse Ox 96 04/29/21 07:33 Results & Data ([facility]) Current Inpatient Medications Current Inpatient Medications: Current Inpatient Medications Acetaminophen (Acetaminophen 500 Mg Tab) 500 mg PO Q8@0000,0800,1600 [facility] Stop: 05/19/21 15:59 Last Admin: 04/29/21 07:45 Dose: 500 mg Documented by: Hydrocodone Bitart/Acetaminophen (Hydrocodone/Acetamophen 5/325mg Tab) 1 tab PO Q8H [facility] Stop: 05/01/21 10:29 Last Admin: 04/29/21 11:05 Dose: 1 tab Documented by: Albuterol (Albuterol 0.5% Neb Soln 2.5 Mg/0.5 Ml Vial) 2.5 mg NEB Q6R PRN PRN Reason: wheezing, SOB Stop: 05/11/21 17:17 Last Admin: 04/01/21 21:09 Dose: 2.5 mg Documented by: Albuterol (Albut/Ipratrop 3mg/0.5mg Neb 3 Ml Vial) 3 ml NEB Q4R PRN PRN Reason: Shortness Of Breath Or Wheezing Stop: 05/11/21 10:48 Last Admin: 04/25/21 21:12 Dose: 3 ml Documented by: Amlodipine Besylate (Amlodipine Besylate 5 Mg Tab) 5 mg PO QAM [facility] Stop: 05/11/21 12:14 Last Admin: 04/29/21 07:36 Dose: 5 mg Documented by: Aspirin (Aspirin 81 Mg Ectab) 81 mg PO DAILY [facility] Stop: 05/11/21 08:59 Last Admin: 04/29/21 07:36 Dose: 81 mg Documented by: Carbidopa/Levodopa (Carbidopa/Levodopa 25/100mg Tab) 1 tab PO QAM [facility] Stop: 05/29/21 08:59 Last Admin: 04/29/21 07:36 Dose: 1 tab Documented by: Diclofenac Sodium (Diclofenac Sod 1% Gel 100 Gm Tube) 2 gm EXT Q6 [facility] Stop: 05/11/21 15:29 Last Admin: 04/29/21 11:18 Dose: Not Given Documented by: Docusate Sodium (Docusate Sodium 100 Mg Cap) 100 mg PO DAILY PRN PRN Reason: Constipation Stop: 05/11/21 16:59 Last Admin: 04/06/21 02:36 Dose: 100 mg Documented by: Ezetimibe (Ezetimibe 10 Mg Tablet) 10 mg PO HS [facility] Stop: 05/11/21 20:59 Last Admin: 04/28/21 21:51 Dose: 10 mg Documented by: Enoxaparin Sodium (Enoxaparin Inj 40 Mg/0.4 Ml Syr) 40 mg SQ Q24H [facility] Stop: 05/11/21 16:59 Last Admin: 04/28/21 21:51 Dose: 40 mg Documented by: Ferrous Sulfate (Ferrous Sulfate 325 Mg Tab) 325 mg PO DAILY@1100 [facility] Stop: 05/11/21 10:59 Last Admin: 04/29/21 11:04 Dose: 325 mg Documented by: Gabapentin (Gabapentin 100 Mg Cap) 200 mg PO TID [facility] Stop: 05/11/21 20:59 Last Admin: 04/29/21 07:37 Dose: 200 mg Documented by: Promethazine HCl 12.5 mg/ (Sodium Chloride) 50.5 mls @ 202 mls/hr IV Q6H PRN PRN Reason: Nausea And Vomiting Stop: 05/11/21 20:07 Last Infusion: 04/17/21 19:58 Dose: Infused Documented by: Lactase (Lactase 3000 Unit Tab) 3,000 units PO AC [facility] Stop: 05/11/21 16:59 Last Admin: 04/29/21 11:04 Dose: 3,000 units Documented by: Lactobacillus Acidoph/Casei/Rhamnos (Advanced Probiotic 1250 Mg Capsule) 2 cap PO DAILY [facility] Stop: 05/11/21 14:29 Last Admin: 04/29/21 07:36 Dose: 2 cap Documented by: Lamotrigine (Lamotrigine 25 Mg Tab) 75 mg PO [facility] Stop: 05/11/21 20:59 Last Admin: 04/28/21 21:50 Dose: 75 mg Documented by: Lidocaine (Lidocaine 5% 1 Patch) 1 patch TD DAILY [facility] Stop: 05/11/21 08:59 Last Admin: 04/29/21 07:38 Dose: 1 patch Documented by: Magnesium Oxide (Magnesium Oxide 400 Mg Tab) 400 mg PO BID [facility] Stop: 05/18/21 20:59 Last Admin: 04/29/21 07:37 Dose: 400 mg Documented by: Metoprolol Tartrate (Metoprolol Tartrate 25 Mg Tab) 25 mg PO BID [facility] Stop: 05/17/21 20:24 Last Admin: 04/29/21 07:40 Dose: Not Given Documented by: Miscellaneous (Remove Lidoderm Patch) 1 ea N/A [facility] Stop: 05/11/21 20:59 Last Admin: 04/28/21 21:52 Dose: 1 ea Documented by: Nitroglycerin (Nitroglycerin Sl 0.4 Mg/Tab Tab) 0.4 mg SL PRN PRN PRN Reason: Chest Pain Stop: 05/22/21 21:40 Last Admin: 04/22/21 22:16 Dose: 0.4 mg Documented by: Pantoprazole Sodium (Pantoprazole 40 Mg Tab) 40 mg PO DAILY [facility] Stop: 05/11/21 08:59 Last Admin: 04/29/21 07:37 Dose: 40 mg Documented by: Polyethylene Glycol (Polyethylene (Miralax) 17 Gm Pack) 17 gm PO DAILY PRN PRN Reason: Constipation Stop: 05/14/21 04:42 Potassium Chloride (Potassium Chloride 10 Meq Tabcr) 10 meq PO BID [facility] Stop: 05/11/21 20:59 Last Admin: 04/29/21 07:37 Dose: 10 meq Documented by: Senna/Docusate Sodium (Docusate Sodium/Senna 50/8.6mg Tab) 1 tab PO QAM [facility] Stop: 05/14/21 04:44 Last Admin: 04/29/21 07:36 Dose: 1 tab Documented by: Sumatriptan Succinate (Sumatriptan Succinate 25 Mg Tab) 25 mg PO DAILY PRN PRN Reason: Migraine Headache Stop: 05/08/21 10:18 Last Admin: 04/17/21 19:59 Dose: 25 mg Documented by: Zolpidem Tartrate (Zolpidem Tartrate 5 Mg Tab) 5 mg PO [facility] Stop: 05/02/21 20:59 Last Admin: 04/28/21 21:47 Dose: 5 mg Documented by:
[2021-04-29] MEDS ORDERED: OLANZAPINE 2.5 MG TAB PO SCH (15:30)
[2021-04-29] MEDS: ENOXAPARIN INJ 40 MG/0.4 ML SYR SQ SCH (20:08)
[2021-04-29] MEDS: lamoTRIgine 25 MG TAB PO SCH (20:09)
[2021-04-29] MEDS: EZETIMIBE 10 MG TABLET PO SCH (20:09)
[2021-04-29] MEDS: ZOLPIDEM TARTRATE 5 MG TAB PO SCH (22:08)
--- NOTE | 2021-04-29 23:07 | Hospitalist Progress Note ---
Date of Service April 29, 2021 Assessment & Plan (1) Pneumonia: (2) Catheter-associated urinary tract infection: Plan: This is a 76-year-old female with PMH Parkinson's, Zvwzxiu-Ucyzj-Cwwtn disease, HTN, HLD, history of TIA, CKD stage III, chronic Cheng catheter with recurrent UTIs, wheelchair-bound, multiple lower extremity surgeries, who presented to the ED for evaluation of shortness of breath and wheezing. 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 On Ambien. 04/18 - visual and auditory hallucinations, worsening delusions/paranoia. Per psychiatry, tapered Risperdal in favor of trial of Zyprexa 2.5 mg at bedtime. Zyprexa increased to 5 mg at bedtime on 04/22 04/24 - Decrease Zyprexa back to 2.5mg qhs given emergence of side effects (daytime fatigue, flattening of affect and softer speech) at higher dose. May need to consider reducing dopamine agent for Parkinson's to better target psychotic symptoms versus Seroquel trail if symptoms persist on low dose Zyprexa. discussed with psychiatry, stopped Sinemet afternoon dose as it can be driving her psychosis 1/2 - DC zyprexa CAUTI:Chronic indwelling Cheng catheter History of recurrent UTIs. Patient overdue for follow-up with urology---> Alexandrea BETANCOURT to arrange for outpatient follow-up for management of her chronic Cheng UA was suggestive of infection, 03/12 urine culture Enterobacter cloacae and E. coli. Completed Levaquin. 04/18 - reports burning at Cheng site Repeat urine culture growing Enterobacter cloacae, multidrug-resistant. On meropenem Unclear if true infection or colonization ID consulted -presence of bacteriuria and pyuria expected with an indwelling catheter and has no specificity for UTI. No systemic s/sx of infection. Consider other alternatives for urinary incontinence care. Stop meropenem and observe for signs directly attributable to her infection and urinary tract before restarting. Remove Cheng Family and patient refused for cheng catheter removal. Patiend with longstanding overflow incontinence issues. Discussed increased risk for UTIs Replaced on 04/24. If remains in place, will need monthly changes Outpatient follow-up with urology Chest pain - resolved -Developed chest pain on 03/27 and was transferred to [facility] with telemetry -Troponin negative x2, EKG nonischemic -Reproducible on exam, likely musculoskeletal in nature -Another episode of chest pain on 04/06 evening, EKG and troponin unremarkable Chronic Diastolic CHF pt with episode of decompensated CHF while hospitalized, now resolved -Echo 03/21/2021 -EF 55-60%, grade 2 diastolic dysfunction 03/14 CXR: Mild pulmonary edema. Possible small left pleural effusion 03/14 IV dose of Lasix 03/28 IV Lasix x 1 dose euvolemic today, daily weights TIA Patient was a stroke alert overnight (03/20-03/21) Likely TIA - involving the right hemisphere with left facial droop yet on imaging has no evidence for a completed event Head and neck CTA, brain MRI unremarkable for acute findings Neurology consulted, input appreciated Do not have sufficient evidence to recommend adding Plavix to her aspirin but will observe her for recurrent events and if they do enlarge then certainly would add another antiplatelet agent Recommend to continue aspirin 81 mg daily, and 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 Fields Pneumonia Admission CXR - bibasilar infiltration more on the right could be secondary to aspiration versus HCAP Initial lactic acid 3.2---> 1.9, no other signs of sepsis. MRSA screen negative Zosyn 03/12 --> change to Augmentin 03/14 -->Levaquin 03/15 d/t E.cloacae and E. coli in UCx --> stop date 03/19 Blood cultures negative Has had speech evaluation Recommended aspiration precaution during feeding - If the condition persist will need to have a formal barium swallow No fever and no chills CMT (Snhrczo-Vesbi-Sucqd disease): S/p multiple lower extremity procedures, most recently s/p left knee closed reduction total knee arthroplasty subluxation on 02/16/2021 - patient is to remain nonweightbearing of the left lower extremity and limited weightbearing on the right lower extremity Pain controlled with hydrocodone/acetaminophen Abnormal Left ankle XR Chronic multiple joint pain, more on the left leg 03/15 x-ray left ankle: A 1.8 cm linear ossific density posterior to the talus may represent an avulsion fracture from the dorsal calcaneus. Clinical correlation will be essential. Orthopedic consulted for left calcaneal superior posterior avulsion fracture status post fall: High tide walking boot removed, replaced with a dorsiflexion splint with a negative relief under the left heel and lambs wool padding to provide essentially neutral support for neutral dorsiflexion of the left ankle and heel and foot. Orthopedic recommending may use the walking boot for transfers or ambulating and wheelchair as necessary. Follow-up with outpatient orthopedics. Dr. Crain, [facility] [place], [place]. Per patient request, bilateral ankle x-rays ordered on 04/13 - ordered, unchanged, follow up with Dr. Crain. Parkinson disease: Continue carbidopa-levodopa Chronic pain: Continue home regimen DVT prophylaxis: SQ Lovenox Disposition:Medically stable; awaiting placement. Case management following. Admission and Anticipated Discharge Date Admission Date: March 12, 2021 Subjective Pt seen in follow-up of recurrent UTI, pneumonia, hallucinations/paranoia. chronic lower extremity pain and s/p Left TK arthroplasty No fever, chills, CP, SOB, N/V, abdominal pain, dysuria, diarrhea or constipation Has hand contraction - asking about split - working on obtaining one Discussed w/psychiatry - changed carbidopa-levodopa to daily medication (stopped afternoon dose), will dc zyprexa Review of Systems Review of Systems: All systems reviewed & are unremarkable except as noted in Subjective Physical Exam Physical Exam: Gen: WD/WN, F, chronically ill appearing, NAD, A&O x3 HEENT: Normocephalic, atraumatic, sclerae anicteric, mucous membranes moist. Lung: Clear to Auscultation bilaterally, no wheezes/rales/rhonchi Heart: Regular rate, regular rhythm, no murmurs, rubs, or gallops Abdomen: Soft, NT, ND +BS x 4 Extremities: LLE brace in place Skin: Warm, no rash, negative turgor. : +Cheng cath Psych: flat affect Results & Data Results & Data ([facility]) Vital Signs (Past 12 Hours) Vital Signs Temp Pulse Pulse Resp BP Pulse Ox 04/29/21 22:18 36.7 C 62 18 159/79 H 95 04/29/21 20:05 77 16 171/87 H 96 04/29/21 15:08 36.6 C 70 18 155/79 H 96 Medications Administered Current Inpatient Medications Acetaminophen (Acetaminophen 500 Mg Tab) 500 mg PO Q8@0000,0800,1600 [facility] Stop: 05/19/21 15:59 Last Admin: 04/29/21 16:47 Dose: 500 mg Documented by: Hydrocodone Bitart/Acetaminophen (Hydrocodone/Acetamophen 5/325mg Tab) 1 tab PO Q8H [facility] Stop: 05/01/21 10:29 Last Admin: 04/29/21 18:14 Dose: 1 tab Documented by: Albuterol (Albuterol 0.5% Neb Soln 2.5 Mg/0.5 Ml Vial) 2.5 mg NEB Q6R PRN PRN Reason: wheezing, SOB Stop: 05/11/21 17:17 Last Admin: 04/01/21 21:09 Dose: 2.5 mg Documented by: Albuterol (Albut/Ipratrop 3mg/0.5mg Neb 3 Ml Vial) 3 ml NEB Q4R PRN PRN Reason: Shortness Of Breath Or Wheezing Stop: 05/11/21 10:48 Last Admin: 04/25/21 21:12 Dose: 3 ml Documented by: Amlodipine Besylate (Amlodipine Besylate 5 Mg Tab) 5 mg PO QAM [facility] Stop: 05/11/21 12:14 Last Admin: 04/29/21 07:36 Dose: 5 mg Documented by: Aspirin (Aspirin 81 Mg Ectab) 81 mg PO DAILY [facility] Stop: 05/11/21 08:59 Last Admin: 04/29/21 07:36 Dose: 81 mg Documented by: Carbidopa/Levodopa (Carbidopa/Levodopa 25/100mg Tab) 1 tab PO QAM [facility] Stop: 05/29/21 08:59 Last Admin: 04/29/21 07:36 Dose: 1 tab Documented by: Diclofenac Sodium (Diclofenac Sod 1% Gel 100 Gm Tube) 2 gm EXT Q6 [facility] Stop: 05/11/21 15:29 Last Admin: 04/29/21 18:14 Dose: Not Given Documented by: Docusate Sodium (Docusate Sodium 100 Mg Cap) 100 mg PO DAILY PRN PRN Reason: Constipation Stop: 05/11/21 16:59 Last Admin: 04/06/21 02:36 Dose: 100 mg Documented by: Ezetimibe (Ezetimibe 10 Mg Tablet) 10 mg PO HS [facility] Stop: 05/11/21 20:59 Last Admin: 04/29/21 20:09 Dose: 10 mg Documented by: Enoxaparin Sodium (Enoxaparin Inj 40 Mg/0.4 Ml Syr) 40 mg SQ Q24H [facility] Stop: 05/11/21 16:59 Last Admin: 04/29/21 20:08 Dose: 40 mg Documented by: Ferrous Sulfate (Ferrous Sulfate 325 Mg Tab) 325 mg PO DAILY@1100 [facility] Stop: 05/11/21 10:59 Last Admin: 04/29/21 11:04 Dose: 325 mg Documented by: Gabapentin (Gabapentin 100 Mg Cap) 200 mg PO TID [facility] Stop: 05/11/21 20:59 Last Admin: 04/29/21 20:09 Dose: 200 mg Documented by: Promethazine HCl 12.5 mg/ (Sodium Chloride) 50.5 mls @ 202 mls/hr IV Q6H PRN PRN Reason: Nausea And Vomiting Stop: 05/11/21 20:07 Last Infusion: 04/17/21 19:58 Dose: Infused Documented by: Lactase (Lactase 3000 Unit Tab) 3,000 units PO AC [facility] Stop: 05/11/21 16:59 Last Admin: 04/29/21 16:47 Dose: 3,000 units Documented by: Lactobacillus Acidoph/Casei/Rhamnos (Advanced Probiotic 1250 Mg Capsule) 2 cap PO DAILY [facility] Stop: 05/11/21 14:29 Last Admin: 04/29/21 07:36 Dose: 2 cap Documented by: Lamotrigine (Lamotrigine 25 Mg Tab) 75 mg PO HS [facility] Stop: 05/11/21 20:59 Last Admin: 04/29/21 20:09 Dose: 75 mg Documented by: Lidocaine (Lidocaine 5% 1 Patch) 1 patch TD DAILY [facility] Stop: 05/11/21 08:59 Last Admin: 04/29/21 07:38 Dose: 1 patch Documented by: Magnesium Oxide (Magnesium Oxide 400 Mg Tab) 400 mg PO BID [facility] Stop: 05/18/21 20:59 Last Admin: 04/29/21 20:09 Dose: 400 mg Documented by: Metoprolol Tartrate (Metoprolol Tartrate 25 Mg Tab) 25 mg PO BID [facility] Stop: 05/17/21 20:24 Last Admin: 04/29/21 20:10 Dose: 25 mg Documented by: Miscellaneous (Remove Lidoderm Patch) 1 ea N/A HS [facility] Stop: 05/11/21 20:59 Last Admin: 04/29/21 22:08 Dose: 1 ea Documented by: Nitroglycerin (Nitroglycerin Sl 0.4 Mg/Tab Tab) 0.4 mg SL PRN PRN PRN Reason: Chest Pain Stop: 05/22/21 21:40 Last Admin: 04/22/21 22:16 Dose: 0.4 mg Documented by: Pantoprazole Sodium (Pantoprazole 40 Mg Tab) 40 mg PO DAILY [facility] Stop: 05/11/21 08:59 Last Admin: 04/29/21 07:37 Dose: 40 mg Documented by: Polyethylene Glycol (Polyethylene (Miralax) 17 Gm Pack) 17 gm PO DAILY PRN PRN Reason: Constipation Stop: 05/14/21 04:42 Potassium Chloride (Potassium Chloride 10 Meq Tabcr) 10 meq PO BID [facility] Stop: 05/11/21 20:59 Last Admin: 04/29/21 20:10 Dose: 10 meq Documented by: Senna/Docusate Sodium (Docusate Sodium/Senna 50/8.6mg Tab) 1 tab PO QAM [facility] Stop: 05/14/21 04:44 Last Admin: 04/29/21 07:36 Dose: 1 tab Documented by: Sumatriptan Succinate (Sumatriptan Succinate 25 Mg Tab) 25 mg PO DAILY PRN PRN Reason: Migraine Headache Stop: 05/08/21 10:18 Last Admin: 04/17/21 19:59 Dose: 25 mg Documented by: Zolpidem Tartrate (Zolpidem Tartrate 5 Mg Tab) 5 mg PO HS [facility] Stop: 05/02/21 20:59 Last Admin: 04/29/21 22:08 Dose: 5 mg Documented by:
[2021-04-30] MEDS: SUMAtriptan succinate 25 MG TAB PO PRN (00:26)
[2021-04-30] MEDS: HYDROCODONE/ACETAMOPHEN 5/325MG TAB PO SCH ×4 (02:03→17:45)
[2021-04-30] MEDS: DICLOFENAC SOD 1% GEL 100 GM TUBE EXT SCH ×3 (06:17→17:45)
[2021-04-30 08:04] LABS: Hematocrit (blood only) 37.2 % (37-47); Mean Corpuscular Hemoglobin 27.8 pg (25-34); Mean Corpuscular Hgb Conc 32.3 g/dL (32-36); Mean Corpuscular Volume 86.1 fL (80-100); Mean Platelet Volume 9.7 fL (7.4-10.4); Platelet Count 249 K/uL (130-400); RDW Coefficient of Variation 13.9 % (11.5-14.5); RDW Standard Deviation 44.2 fL (36.4-46.3); Red Blood Count 4.32 M/uL (4.2-5.4)
[2021-04-30] MEDS: ACETAMINOPHEN 500 MG TAB PO SCH ×3 (08:21→23:56)
[2021-04-30] MEDS: GABAPENTIN 100 MG CAP PO SCH ×3 (08:21→20:05)
[2021-04-30] MEDS: LACTASE 3000 UNIT TAB PO SCH ×3 (08:21→17:45)
[2021-04-30] MEDS: DOCUSATE SODIUM/SENNA 50/8.6MG TAB PO SCH (08:22)
[2021-04-30] MEDS: CARBIDOPA/LEVODOPA 25/100MG TAB PO SCH (08:22)
[2021-04-30] MEDS: amLODIPine BESYLATE 5 MG TAB PO SCH (08:22)
[2021-04-30] MEDS: METOPROLOL TARTRATE 25 MG TAB PO SCH ×2 (08:22→20:06)
[2021-04-30] MEDS: MAGNESIUM OXIDE 400 MG TAB PO SCH ×2 (08:22→20:05)
[2021-04-30] MEDS: POTASSIUM CHLORIDE 10 MEQ TABCR PO SCH ×2 (08:23→20:05)
[2021-04-30] MEDS: ADVANCED PROBIOTIC 1250 MG CAPSULE PO SCH (08:25)
[2021-04-30] MEDS: ASPIRIN 81 MG ECTAB PO SCH (08:25)
[2021-04-30] MEDS: PANTOprazole 40 MG TAB PO SCH (08:25)
[2021-04-30] MEDS: LIDOCAINE 5% 1 PATCH TD SCH (08:25)
[2021-04-30 10:18] LABS: Calcium 10.1 mg/dl (8.5-10.1); Creatinine Clr Calc Pharmacy 76.4 ml/min; Est GFR (African American) 102.2 ml/min; Est GFR (Non-African American) 88.2 ml/min; Phosphorus 4.3 mg/dl (2.5-4.9); Potassium 4.2 mmol/L (3.5-5.1)
[2021-04-30] MEDS: FERROUS SULFATE 325 MG TAB PO SCH (11:23)
--- NOTE | 2021-04-30 15:16 | Hospitalist Progress Note ---
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 Being managed for the following: Pneumonia Admission CXR - bibasilar infiltration more on the right could be secondary to aspiration versus HCAP Initial lactic acid 3.2---> 1.9, no other signs of sepsis. MRSA screen negative Zosyn 03/12 --> change to Augmentin 03/14 -->Levaquin 03/15 d/t E.cloacae and E. 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 On Ambien. 04/18 - visual and auditory hallucinations, worsening delusions/paranoia. Per psychiatry, tapered Risperdal in favor of trial of Zyprexa 2.5 mg at bedtime. Zyprexa increased to 5 mg at bedtime on 04/22 04/24 - Decrease Zyprexa back to 2.5mg qhs given emergence of side effects (daytime fatigue, flattening of affect and softer speech) at higher dose. May need to consider reducing dopamine agent for Parkinson's to better target psychotic symptoms versus Seroquel trail if symptoms persist on low dose Zyprexa. discussed with psychiatry, stopped Sinemet afternoon dose as it can be driving her psychosis / - DC zyprexa CAUTI:Chronic indwelling Cheng catheter History of recurrent UTIs. Patient overdue for follow-up with urology---> Alexandrea BETANCOURT to arrange for outpatient follow-up for management of her chronic Cheng UA was suggestive of infection, 03/12 urine culture Enterobacter cloacae and E. coli. Completed Levaquin. 04/18 - reports burning at Cheng site Repeat urine culture growing Enterobacter cloacae, multidrug-resistant. On meropenem Unclear if true infection or colonization ID consulted -presence of bacteriuria and pyuria expected with an indwelling catheter and has no specificity for UTI. No systemic s/sx of infection. Consider other alternatives for urinary incontinence care. Stop meropenem and observe for signs directly attributable to her infection and urinary tract before restarting. Remove Cheng Family and patient refused for cheng catheter removal. Patient with longstanding overflow incontinence issues. Discussed increased risk for UTIs Replaced on 04/24. If remains in place, will need monthly changes Outpatient follow-up with urology Chest pain - resolved -Developed chest pain on 03/27 and was transferred to [facility] with telemetry -Troponin negative x2, EKG nonischemic -Reproducible on exam, likely musculoskeletal in nature -Another episode of chest pain on 04/06 evening, EKG and troponin unremarkable Chronic Diastolic CHF pt with episode of decompensated CHF while hospitalized, now resolved -Echo 03/21/2021 -EF 55-60%, grade 2 diastolic dysfunction 03/14 CXR: Mild pulmonary edema. Possible small left pleural effusion 03/14 IV dose of Lasix 03/28 IV Lasix x 1 dose euvolemic today, daily weights TIA Patient was a stroke alert overnight (03/20-03/21) Likely TIA - involving the right hemisphere with left facial droop yet on imaging has no evidence for a completed event Head and neck CTA, brain MRI unremarkable for acute findings Neurology consulted, input appreciated Do not have sufficient evidence to recommend adding Plavix to her aspirin but will observe her for recurrent events and if they do enlarge then certainly would add another antiplatelet agent Recommend to continue aspirin 81 mg daily, and 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 Fields CMT (Rjjqvqv-Phfzl-Ryiiz disease): S/p multiple lower extremity procedures, most recently s/p left knee closed reduction total knee arthroplasty subluxation on 02/16/2021 - patient is to remain nonweightbearing of the left lower extremity and limited weightbearing on the right lower extremity Pain controlled with hydrocodone/acetaminophen Abnormal Left ankle XR Chronic multiple joint pain, more on the left leg 03/15 x-ray left ankle: A 1.8 cm linear ossific density posterior to the talus may represent an avulsion fracture from the dorsal calcaneus. Clinical correlation will be essential. Orthopedic consulted for left calcaneal superior posterior avulsion fracture status post fall: High tide walking boot removed, replaced with a dorsiflexion splint with a negative relief under the left heel and lambs wool padding to provide essentially neutral support for neutral dorsiflexion of the left ankle and heel and foot. Orthopedic recommending may use the walking boot for transfers or ambulating and wheelchair as necessary. Follow-up with outpatient orthopedics. Dr. Crain, [facility]. Per patient request, bilateral ankle x-rays ordered on 04/13 - ordered, unchanged, follow up with Dr. Crain. Parkinson disease: Continue carbidopa-levodopa Chronic pain: Continue home regimen, minimize escalations in narcotics DVT prophylaxis: SQ Lovenox Disposition:Medically stable; awaiting placement to facility. Marie Ceballos DO [facility] Hospitalist Admission and Anticipated Discharge Date Admission Date: March 12, 2021 Subjective 76 yo F admitted for recurrent UTI, pneumonia, hallucinations/paranoia. continues to report chronic pain in her lower extremities. Overall appeared comfortable working on her cell phone prior to my entry into the room Tolerating PO and no acute changes. Awaiting placement. Review of Systems Review of Systems: All systems reviewed and negative except as indicated above. Physical Exam Physical Exam: CONSTITUTIONAL: WNWD, vitals as above, NAD EYES: normal conjunctivae, no scleral icterus ENT: external ear and nose normal, MMM NECK: trachea midline, RESPIRATORY: clear to auscultation bilaterally, no crackles, rales or wheezes, normal respiratory effort CARDIOVASCULAR: regular rate and rhythm, S1 and 2 heard without murmurs, gallops or rubs, no JVD, no peripheral edema, GASTROINTESTINAL: soft, nontender, ND no guarding MUSCULOSKELETAL: moves extremities symmetrically, soft brace to left knee and bilateral ERIKA wraps to her ankles, generalized weakness. head is normocephalic and atraumatic SKIN: warm and dry NEUROLOGIC: CN 2-12 grossly intact, normal cognition, hypophonic speech, no tremor PSYCHIATRIC: alert cooperative and oriented Results & Data Results & Data ([facility]) Vital Signs (Past 12 Hours) Vital Signs Temp Pulse Resp BP Pulse Ox 04/30/21 07:57 36.7 C 52 L 16 119/62 97 Laboratory Results Short CBC 04/30/21 Range/Units 07:34 WBC 6.00 (4.8-10.8) K/uL Hgb 12.0 (12.0-16.0) g/dL Hct 37.2 (37-47) % Plt Count 249 (130-400) K/uL BMP 04/30/21 07:34 Sodium 133 L Potassium 4.2 Chloride 100 Carbon Dioxide 24 BUN 15 Creatinine 0.62 Glucose 82 Calcium 10.1 Medications Administered Current Inpatient Medications Acetaminophen (Acetaminophen 500 Mg Tab) 500 mg PO Q8@0000,0800,1600 [facility] Stop: 05/19/21 15:59 Last Admin: 04/30/21 08:21 Dose: 500 mg Documented by: Hydrocodone Bitart/Acetaminophen (Hydrocodone/Acetamophen 5/325mg Tab) 1 tab PO Q8H [facility] Stop: 05/01/21 10:29 Last Admin: 04/30/21 11:23 Dose: 1 tab Documented by: Albuterol (Albuterol 0.5% Neb Soln 2.5 Mg/0.5 Ml Vial) 2.5 mg NEB Q6R PRN PRN Reason: wheezing, SOB Stop: 05/11/21 17:17 Last Admin: 04/01/21 21:09 Dose: 2.5 mg Documented by: Albuterol (Albut/Ipratrop 3mg/0.5mg Neb 3 Ml Vial) 3 ml NEB Q4R PRN PRN Reason: Shortness Of Breath Or Wheezing Stop: 05/11/21 10:48 Last Admin: 04/25/21 21:12 Dose: 3 ml Documented by: Amlodipine Besylate (Amlodipine Besylate 5 Mg Tab) 5 mg PO QAM [facility] Stop: 05/11/21 12:14 Last Admin: 04/30/21 08:22 Dose: 5 mg Documented by: Aspirin (Aspirin 81 Mg Ectab) 81 mg PO DAILY [facility] Stop: 05/11/21 08:59 Last Admin: 04/30/21 08:25 Dose: 81 mg Documented by: Carbidopa/Levodopa (Carbidopa/Levodopa 25/100mg Tab) 1 tab PO QAM [facility] Stop: 05/29/21 08:59 Last Admin: 04/30/21 08:22 Dose: 1 tab Documented by: Diclofenac Sodium (Diclofenac Sod 1% Gel 100 Gm Tube) 2 gm EXT Q6 [facility] Stop: 05/11/21 15:29 Last Admin: 04/30/21 11:24 Dose: 2 gm Documented by: Docusate Sodium (Docusate Sodium 100 Mg Cap) 100 mg PO DAILY PRN PRN Reason: Constipation Stop: 05/11/21 16:59 Last Admin: 04/06/21 02:36 Dose: 100 mg Documented by: Ezetimibe (Ezetimibe 10 Mg Tablet) 10 mg PO HS [facility] Stop: 05/11/21 20:59 Last Admin: 04/29/21 20:09 Dose: 10 mg Documented by: Enoxaparin Sodium (Enoxaparin Inj 40 Mg/0.4 Ml Syr) 40 mg SQ Q24H [facility] Stop: 05/11/21 16:59 Last Admin: 04/29/21 20:08 Dose: 40 mg Documented by: Ferrous Sulfate (Ferrous Sulfate 325 Mg Tab) 325 mg PO DAILY@1100 [facility] Stop: 05/11/21 10:59 Last Admin: 04/30/21 11:23 Dose: 325 mg Documented by: Gabapentin (Gabapentin 100 Mg Cap) 200 mg PO TID [facility] Stop: 05/11/21 20:59 Last Admin: 04/30/21 08:21 Dose: 200 mg Documented by: Promethazine HCl 12.5 mg/ (Sodium Chloride) 50.5 mls @ 202 mls/hr IV Q6H PRN PRN Reason: Nausea And Vomiting Stop: 05/11/21 20:07 Last Infusion: 04/17/21 19:58 Dose: Infused Documented by: Lactase (Lactase 3000 Unit Tab) 3,000 units PO AC [facility] Stop: 05/11/21 16:59 Last Admin: 04/30/21 11:23 Dose: 3,000 units Documented by: Lactobacillus Acidoph/Casei/Rhamnos (Advanced Probiotic 1250 Mg Capsule) 2 cap PO DAILY [facility] Stop: 05/11/21 14:29 Last Admin: 04/30/21 08:25 Dose: 2 cap Documented by: Lamotrigine (Lamotrigine 25 Mg Tab) 75 mg PO HS [facility] Stop: 05/11/21 20:59 Last Admin: 04/29/21 20:09 Dose: 75 mg Documented by: Lidocaine (Lidocaine 5% 1 Patch) 1 patch TD DAILY [facility] Stop: 05/11/21 08:59 Last Admin: 04/30/21 08:25 Dose: 1 patch Documented by: Magnesium Oxide (Magnesium Oxide 400 Mg Tab) 400 mg PO BID [facility] Stop: 05/18/21 20:59 Last Admin: 04/30/21 08:22 Dose: 400 mg Documented by: Metoprolol Tartrate (Metoprolol Tartrate 25 Mg Tab) 25 mg PO BID [facility] Stop: 05/17/21 20:24 Last Admin: 04/30/21 08:22 Dose: Not Given Documented by: Miscellaneous (Remove Lidoderm Patch) 1 ea N/A [facility] Stop: 05/11/21 20:59 Last Admin: 04/29/21 22:08 Dose: 1 ea Documented by: Nitroglycerin (Nitroglycerin Sl 0.4 Mg/Tab Tab) 0.4 mg SL PRN PRN PRN Reason: Chest Pain Stop: 05/22/21 21:40 Last Admin: 04/22/21 22:16 Dose: 0.4 mg Documented by: Pantoprazole Sodium (Pantoprazole 40 Mg Tab) 40 mg PO DAILY [facility] Stop: 05/11/21 08:59 Last Admin: 04/30/21 08:25 Dose: 40 mg Documented by: Polyethylene Glycol (Polyethylene (Miralax) 17 Gm Pack) 17 gm PO DAILY PRN PRN Reason: Constipation Stop: 05/14/21 04:42 Potassium Chloride (Potassium Chloride 10 Meq Tabcr) 10 meq PO BID [facility] Stop: 05/11/21 20:59 Last Admin: 04/30/21 08:23 Dose: 10 meq Documented by: Senna/Docusate Sodium (Docusate Sodium/Senna 50/8.6mg Tab) 1 tab PO QAM [facility] Stop: 05/14/21 04:44 Last Admin: 04/30/21 08:22 Dose: 1 tab Documented by: Sumatriptan Succinate (Sumatriptan Succinate 25 Mg Tab) 25 mg PO DAILY PRN PRN Reason: Migraine Headache Stop: 05/08/21 10:18 Last Admin: 04/30/21 00:26 Dose: 25 mg Documented by: Zolpidem Tartrate (Zolpidem Tartrate 5 Mg Tab) 5 mg PO [facility] Stop: 05/02/21 20:59 Last Admin: 04/29/21 22:08 Dose: 5 mg Documented by:
[2021-04-30] MEDS: lamoTRIgine 25 MG TAB PO SCH (20:03)
[2021-04-30] MEDS: EZETIMIBE 10 MG TABLET PO SCH (20:04)
[2021-04-30] MEDS: ENOXAPARIN INJ 40 MG/0.4 ML SYR SQ SCH (20:04)
[2021-04-30] MEDS: ZOLPIDEM TARTRATE 5 MG TAB PO SCH (22:30)
[2021-05-01] MEDS: DICLOFENAC SOD 1% GEL 100 GM TUBE EXT SCH ×5 (00:01→23:10)
[2021-05-01] MEDS: HYDROCODONE/ACETAMOPHEN 5/325MG TAB PO SCH ×2 (01:55→11:29)
[2021-05-01] MEDS: LACTASE 3000 UNIT TAB PO SCH ×3 (08:36→17:19)
[2021-05-01] MEDS: METOPROLOL TARTRATE 25 MG TAB PO SCH ×2 (08:57→21:41)
[2021-05-01] MEDS: LIDOCAINE 5% 1 PATCH TD SCH (08:57)
[2021-05-01] MEDS: ADVANCED PROBIOTIC 1250 MG CAPSULE PO SCH (08:58)
[2021-05-01] MEDS: MAGNESIUM OXIDE 400 MG TAB PO SCH ×2 (08:58→21:40)
[2021-05-01] MEDS: amLODIPine BESYLATE 5 MG TAB PO SCH (08:58)
[2021-05-01] MEDS: GABAPENTIN 100 MG CAP PO SCH ×3 (08:58→21:41)
[2021-05-01] MEDS: DOCUSATE SODIUM/SENNA 50/8.6MG TAB PO SCH (08:58)
[2021-05-01] MEDS: PANTOprazole 40 MG TAB PO SCH (08:59)
[2021-05-01] MEDS: POTASSIUM CHLORIDE 10 MEQ TABCR PO SCH ×2 (09:00→21:40)
[2021-05-01] MEDS: ASPIRIN 81 MG ECTAB PO SCH (09:00)
[2021-05-01] MEDS: ACETAMINOPHEN 500 MG TAB PO SCH ×3 (09:03→23:11)
[2021-05-01] MEDS: FERROUS SULFATE 325 MG TAB PO SCH (11:29)
--- NOTE | 2021-05-01 13:57 | Psychiatric Progress Note ---
Date of Service May 01, 2021 Impression / Recommendations Impression 76 yo female with history of paranoid ideations related to cognitive decline now with superimposed delirium resulting in worsening hallucinations and delusions. Started Risperdal 03/24/21 which was then cross-tapered to olanzapine due to worsening bradykinesia and parkinsonism side effects. 05/01/21: baseline Parkinson's, patient desiring restart Parkinson's med with Risperdal as best quality of life while hospitalized, admittedly upset she is waiting so long for placement. Plan: updated Dr. Ceballos. Restart Sinemet. Reassess for Risperdal in a few days. 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 Maxwell is a 76 yo female from [place], admitted on 03/16/21 for pneumonia and UTI. Consult is by [facility] Hospitalist service for paranoia and hallucinations. Chief Complaint "I'm drooling more and felt better on Risperdal". Review of Systems Meal Information generalized pain complaints, feeling cold but sweats Subjective Subjective Patient was seen & assessed and interval progress reviewed. Son updated. Patient remains focussed on certain male staff messing with her phone. Slowed. Voice not as strong with holding Sinemet this am. No change in baseline delusions as decreased. Her Parkinson's symptoms seem similar to when taking Sinemet and Zyprexa but are now more distressing to patient. She would like to continue Sinemet and understands it can contribute to her paranoia. Physical Exam Psychiatric Orientation: alert and cooperative Eye Contact: + fair eye contact Speech: + abnormal rate/rhythm/volume of speech Affect: + flat affect Mood: + anxious mood Thought Process: + thought process not clear or coherent Thought Content: + delusions Suicidal Thoughts: denies suicidal thoughts Homicidal Thoughts: denies homicidal thoughts Hallucinations: + auditory hallucinations; no visual hallucinations Cognition: attention grossly intact and language grossly intact Insight: + impaired insight Vital Signs (Past 24 Hours) Last Vital Signs Temp 36.2 C L 05/01/21 07:41 Pulse 57 L 05/01/21 07:41 Resp 16 05/01/21 07:41 BP 118/66 05/01/21 07:41 Pulse Ox 99 05/01/21 07:41 Results & Data ([facility]) Current Inpatient Medications Current Inpatient Medications: Current Inpatient Medications Acetaminophen (Acetaminophen 500 Mg Tab) 500 mg PO Q8@0000,0800,1600 [facility] Stop: 05/19/21 15:59 Last Admin: 05/01/21 09:03 Dose: 500 mg Documented by: Albuterol (Albuterol 0.5% Neb Soln 2.5 Mg/0.5 Ml Vial) 2.5 mg NEB Q6R PRN PRN Reason: wheezing, SOB Stop: 05/11/21 17:17 Last Admin: 04/01/21 21:09 Dose: 2.5 mg Documented by: Albuterol (Albut/Ipratrop 3mg/0.5mg Neb 3 Ml Vial) 3 ml NEB Q4R PRN PRN Reason: Shortness Of Breath Or Wheezing Stop: 05/11/21 10:48 Last Admin: 04/25/21 21:12 Dose: 3 ml Documented by: Amlodipine Besylate (Amlodipine Besylate 5 Mg Tab) 5 mg PO QAM [facility] Stop: 05/11/21 12:14 Last Admin: 05/01/21 08:58 Dose: 5 mg Documented by: Aspirin (Aspirin 81 Mg Ectab) 81 mg PO DAILY [facility] Stop: 05/11/21 08:59 Last Admin: 05/01/21 09:00 Dose: 81 mg Documented by: Carbidopa/Levodopa (Carbidopa/Levodopa 25/100mg Tab) 1 tab PO QAM [facility] Stop: 05/29/21 08:59 Last Admin: 04/30/21 08:22 Dose: 1 tab Documented by: Diclofenac Sodium (Diclofenac Sod 1% Gel 100 Gm Tube) 2 gm EXT Q6 [facility] Stop: 05/11/21 15:29 Last Admin: 05/01/21 11:29 Dose: Not Given Documented by: Docusate Sodium (Docusate Sodium 100 Mg Cap) 100 mg PO DAILY PRN PRN Reason: Constipation Stop: 05/11/21 16:59 Last Admin: 04/06/21 02:36 Dose: 100 mg Documented by: Ezetimibe (Ezetimibe 10 Mg Tablet) 10 mg PO HS [facility] Stop: 05/11/21 20:59 Last Admin: 04/30/21 20:04 Dose: 10 mg Documented by: Enoxaparin Sodium (Enoxaparin Inj 40 Mg/0.4 Ml Syr) 40 mg SQ Q24H [facility] Stop: 05/11/21 16:59 Last Admin: 04/30/21 20:04 Dose: 40 mg Documented by: Ferrous Sulfate (Ferrous Sulfate 325 Mg Tab) 325 mg PO DAILY@1100 [facility] Stop: 05/11/21 10:59 Last Admin: 05/01/21 11:29 Dose: 325 mg Documented by: Gabapentin (Gabapentin 100 Mg Cap) 200 mg PO TID [facility] Stop: 05/11/21 20:59 Last Admin: 05/01/21 08:58 Dose: 200 mg Documented by: Promethazine HCl 12.5 mg/ (Sodium Chloride) 50.5 mls @ 202 mls/hr IV Q6H PRN PRN Reason: Nausea And Vomiting Stop: 05/11/21 20:07 Last Infusion: 04/17/21 19:58 Dose: Infused Documented by: Lactase (Lactase 3000 Unit Tab) 3,000 units PO AC [facility] Stop: 05/11/21 16:59 Last Admin: 05/01/21 11:29 Dose: 3,000 units Documented by: Lactobacillus Acidoph/Casei/Rhamnos (Advanced Probiotic 1250 Mg Capsule) 2 cap PO DAILY [facility] Stop: 05/11/21 14:29 Last Admin: 05/01/21 08:58 Dose: 2 cap Documented by: Lamotrigine (Lamotrigine 25 Mg Tab) 75 mg PO [facility] Stop: 05/11/21 20:59 Last Admin: 04/30/21 20:03 Dose: 75 mg Documented by: Lidocaine (Lidocaine 5% 1 Patch) 1 patch TD DAILY [facility] Stop: 05/11/21 08:59 Last Admin: 05/01/21 08:57 Dose: 1 patch Documented by: Magnesium Oxide (Magnesium Oxide 400 Mg Tab) 400 mg PO BID [facility] Stop: 05/18/21 20:59 Last Admin: 05/01/21 08:58 Dose: 400 mg Documented by: Metoprolol Tartrate (Metoprolol Tartrate 25 Mg Tab) 25 mg PO BID [facility] Stop: 05/17/21 20:24 Last Admin: 05/01/21 08:57 Dose: Not Given Documented by: Miscellaneous (Remove Lidoderm Patch) 1 ea N/A HS [facility] Stop: 05/11/21 20:59 Last Admin: 04/30/21 21:05 Dose: 1 ea Documented by: Nitroglycerin (Nitroglycerin Sl 0.4 Mg/Tab Tab) 0.4 mg SL PRN PRN PRN Reason: Chest Pain Stop: 05/22/21 21:40 Last Admin: 04/22/21 22:16 Dose: 0.4 mg Documented by: Pantoprazole Sodium (Pantoprazole 40 Mg Tab) 40 mg PO DAILY [facility] Stop: 05/11/21 08:59 Last Admin: 05/01/21 08:59 Dose: 40 mg Documented by: Polyethylene Glycol (Polyethylene (Miralax) 17 Gm Pack) 17 gm PO DAILY PRN PRN Reason: Constipation Stop: 05/14/21 04:42 Potassium Chloride (Potassium Chloride 10 Meq Tabcr) 10 meq PO BID [facility] Stop: 05/11/21 20:59 Last Admin: 05/01/21 09:00 Dose: 10 meq Documented by: Senna/Docusate Sodium (Docusate Sodium/Senna 50/8.6mg Tab) 1 tab PO QAM [facility] Stop: 05/14/21 04:44 Last Admin: 05/01/21 08:58 Dose: 1 tab Documented by: Sumatriptan Succinate (Sumatriptan Succinate 25 Mg Tab) 25 mg PO DAILY PRN PRN Reason: Migraine Headache Stop: 05/08/21 10:18 Last Admin: 04/30/21 00:26 Dose: 25 mg Documented by: Zolpidem Tartrate (Zolpidem Tartrate 5 Mg Tab) 5 mg PO HS [facility] Stop: 05/02/21 20:59 Last Admin: 04/30/21 22:30 Dose: 5 mg Documented by:
[2021-05-01] MEDS ORDERED: CARBIDOPA/LEVODOPA 25/100MG TAB PO SCH (14:00)
--- NOTE | 2021-05-01 20:26 | Hospitalist Progress Note ---
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 Being managed for the following: Pneumonia Admission CXR - bibasilar infiltration more on the right could be secondary to aspiration versus HCAP Initial lactic acid 3.2---> 1.9, no other signs of sepsis. MRSA screen negative Zosyn 03/12 --> change to Augmentin 03/14 -->Levaquin 03/15 d/t E.cloacae and E. 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 On Ambien. 04/18 - visual and auditory hallucinations, worsening delusions/paranoia. Per psychiatry, tapered Risperdal in favor of trial of Zyprexa 2.5 mg at bedtime. Zyprexa increased to 5 mg at bedtime on 04/22 04/24 - Decrease Zyprexa back to 2.5mg qhs given emergence of side effects (daytime fatigue, flattening of affect and softer speech) at higher dose. May need to consider reducing dopamine agent for Parkinson's to better target psychotic symptoms versus Seroquel trail if symptoms persist on low dose Zyprexa. discussed with psychiatry, stopped Sinemet afternoon dose as it can be driving her psychosis 04/29 - DC zyprexa 05/01-Risperdal had been started 03/24 which was then cross-tapered to Olanzapine which was stopped due to worsening bradykinesia and parkinsonism side effects. Despite understanding that her Sinemet contributes to her paranoia, she would like to have this restarted. Psychiatry to restart today. May consider adding risperdal in the next few days. Psychiatrist discussed this with her son by phone. CAUTI:Chronic indwelling Cheng catheter History of recurrent UTIs. Patient overdue for follow-up with urology---> Alexandrea BETANCOURT to arrange for outpatient follow-up for management of her chronic Cheng UA was suggestive of infection, 03/12 urine culture Enterobacter cloacae and E. coli. Completed Levaquin. 04/18 - reports burning at Cheng site Repeat urine culture growing Enterobacter cloacae, multidrug-resistant. On meropenem Unclear if true infection or colonization ID consulted -presence of bacteriuria and pyuria expected with an indwelling catheter and has no specificity for UTI. No systemic s/sx of infection. Consider other alternatives for urinary incontinence care. Stop meropenem and observe for signs directly attributable to her infection and urinary tract before restarting. Family and patient refused for cheng catheter removal. Patient with longstanding overflow incontinence issues. Discussed increased risk for UTIs Replaced on 04/24. If remains in place, will need monthly changes Outpatient follow-up with urology Chest pain - resolved -Developed chest pain on 03/27 and was transferred to [facility] with telemetry -Troponin negative x2, EKG nonischemic -Reproducible on exam, likely musculoskeletal in nature -Another episode of chest pain on 04/06 evening, EKG and troponin unremarkable Chronic Diastolic CHF pt with episode of decompensated CHF while hospitalized, now resolved -Echo 03/21/2021 -EF 55-60%, grade 2 diastolic dysfunction 03/14 CXR: Mild pulmonary edema. Possible small left pleural effusion 03/14 IV dose of Lasix 03/28 IV Lasix x 1 dose euvolemic today, daily weights TIA Patient was a stroke alert overnight (03/20-03/21) Likely TIA - involving the right hemisphere with left facial droop yet on imaging has no evidence for a completed event Head and neck CTA, brain MRI unremarkable for acute findings Neurology consulted, input appreciated Do not have sufficient evidence to recommend adding Plavix to her aspirin but will observe her for recurrent events and if they do enlarge then certainly would add another antiplatelet agent Recommend to continue aspirin 81 mg daily, and 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 Fields CMT (Gnmppvg-Fskem-Bgexr disease): S/p multiple lower extremity procedures, most recently s/p left knee closed reduction total knee arthroplasty subluxation on 02/16/2021 - patient is to remain nonweightbearing of the left lower extremity and limited weightbearing on the right lower extremity Pain controlled with hydrocodone/acetaminophen Abnormal Left ankle XR Chronic multiple joint pain, more on the left leg 03/15 x-ray left ankle: A 1.8 cm linear ossific density posterior to the talus may represent an avulsion fracture from the dorsal calcaneus. Clinical correlation will be essential. Orthopedic consulted for left calcaneal superior posterior avulsion fracture status post fall: High tide walking boot removed, replaced with a dorsiflexion splint with a negative relief under the left heel and lambs wool padding to provide essentially neutral support for neutral dorsiflexion of the left ankle and heel and foot. Orthopedic recommending may use the walking boot for transfers or ambulating and wheelchair as necessary. Follow[place]. [place] [facility] [place] request, bilateral ankle x-rays ordered on 04/13 - ordered, unchanged, follow up with Dr. Crain. Parkinson disease: Continue carbidopa-levodopa, possible re-add risperdal in 2-3 days. Chronic pain: Continue home regimen, minimize escalations in narcotics DVT prophylaxis: SQ Lovenox Disposition:Medically stable; awaiting placement to facility. Marie Ceballos DO [facility] Hospitalist Admission and Anticipated Discharge Date Admission Date: March 12, 2021 Subjective 76 yo F admitted for recurrent UTI, pneumonia, hallucinations/paranoia. continues to report chronic pain in her lower extremities. Overall appeared comfortable eating a lollipop and playing with her stuffed monkey Tolerating PO and no acute changes. Awaiting placement. Review of Systems Review of Systems: All systems reviewed and negative except as indicated above. Physical Exam Physical Exam: CONSTITUTIONAL: WNWD, vitals as above, NAD EYES: normal conjunctivae, no scleral icterus ENT: external ear and nose normal, MMM NECK: trachea midline, RESPIRATORY: clear to auscultation bilaterally, no crackles, rales or wheezes, normal respiratory effort CARDIOVASCULAR: regular rate and rhythm, S1 and 2 heard without murmurs, gallops or rubs, no JVD, no peripheral edema, GASTROINTESTINAL: soft, nontender, ND no guarding MUSCULOSKELETAL: moves extremities symmetrically, soft brace to left knee and bilateral ERIKA wraps to her ankles, generalized weakness. head is normocephalic and atraumatic SKIN: warm and dry NEUROLOGIC: CN 2-12 grossly intact, normal cognition, hypophonic speech, no tremor PSYCHIATRIC: alert cooperative and oriented Results & Data Results & Data ([facility]) Vital Signs (Past 12 Hours) Vital Signs Temp Pulse Resp BP Pulse Ox 05/01/21 16:00 37.1 C 83 16 171/80 H 97 Medications Administered Current Inpatient Medications Acetaminophen (Acetaminophen 500 Mg Tab) 500 mg PO Q8@0000,0800,1600 [facility] Stop: 05/19/21 15:59 Last Admin: 05/01/21 17:19 Dose: 500 mg Documented by: Albuterol (Albuterol 0.5% Neb Soln 2.5 Mg/0.5 Ml Vial) 2.5 mg NEB Q6R PRN PRN Reason: wheezing, SOB Stop: 05/11/21 17:17 Last Admin: 04/01/21 21:09 Dose: 2.5 mg Documented by: Albuterol (Albut/Ipratrop 3mg/0.5mg Neb 3 Ml Vial) 3 ml NEB Q4R PRN PRN Reason: Shortness Of Breath Or Wheezing Stop: 05/11/21 10:48 Last Admin: 04/25/21 21:12 Dose: 3 ml Documented by: Amlodipine Besylate (Amlodipine Besylate 5 Mg Tab) 5 mg PO QAM [facility] Stop: 05/11/21 12:14 Last Admin: 05/01/21 08:58 Dose: 5 mg Documented by: Aspirin (Aspirin 81 Mg Ectab) 81 mg PO DAILY [facility] Stop: 05/11/21 08:59 Last Admin: 05/01/21 09:00 Dose: 81 mg Documented by: Carbidopa/Levodopa (Carbidopa/Levodopa 25/100mg Tab) 1 tab PO TID [facility] Stop: 05/31/21 13:59 Diclofenac Sodium (Diclofenac Sod 1% Gel 100 Gm Tube) 2 gm EXT Q6 [facility] Stop: 05/11/21 15:29 Last Admin: 05/01/21 17:20 Dose: Not Given Documented by: Docusate Sodium (Docusate Sodium 100 Mg Cap) 100 mg PO DAILY PRN PRN Reason: Constipation Stop: 05/11/21 16:59 Last Admin: 04/06/21 02:36 Dose: 100 mg Documented by: Ezetimibe (Ezetimibe 10 Mg Tablet) 10 mg PO [facility] Stop: 05/11/21 20:59 Last Admin: 04/30/21 20:04 Dose: 10 mg Documented by: Enoxaparin Sodium (Enoxaparin Inj 40 Mg/0.4 Ml Syr) 40 mg SQ Q24H [facility] Stop: 05/11/21 16:59 Last Admin: 04/30/21 20:04 Dose: 40 mg Documented by: Ferrous Sulfate (Ferrous Sulfate 325 Mg Tab) 325 mg PO DAILY@1100 [facility] Stop: 05/11/21 10:59 Last Admin: 05/01/21 11:29 Dose: 325 mg Documented by: Gabapentin (Gabapentin 100 Mg Cap) 200 mg PO TID [facility] Stop: 05/11/21 20:59 Last Admin: 05/01/21 14:06 Dose: 200 mg Documented by: Promethazine HCl 12.5 mg/ (Sodium Chloride) 50.5 mls @ 202 mls/hr IV Q6H PRN PRN Reason: Nausea And Vomiting Stop: 05/11/21 20:07 Last Infusion: 04/17/21 19:58 Dose: Infused Documented by: Lactase (Lactase 3000 Unit Tab) 3,000 units PO AC [facility] Stop: 05/11/21 16:59 Last Admin: 05/01/21 17:19 Dose: 3,000 units Documented by: Lactobacillus Acidoph/Casei/Rhamnos (Advanced Probiotic 1250 Mg Capsule) 2 cap PO DAILY [facility] Stop: 05/11/21 14:29 Last Admin: 05/01/21 08:58 Dose: 2 cap Documented by: Lamotrigine (Lamotrigine 25 Mg Tab) 75 mg PO HS [facility] Stop: 05/11/21 20:59 Last Admin: 04/30/21 20:03 Dose: 75 mg Documented by: Lidocaine (Lidocaine 5% 1 Patch) 1 patch TD DAILY [facility] Stop: 05/11/21 08:59 Last Admin: 05/01/21 08:57 Dose: 1 patch Documented by: Magnesium Oxide (Magnesium Oxide 400 Mg Tab) 400 mg PO BID [facility] Stop: 05/18/21 20:59 Last Admin: 05/01/21 08:58 Dose: 400 mg Documented by: Metoprolol Tartrate (Metoprolol Tartrate 25 Mg Tab) 25 mg PO BID [facility] Stop: 05/17/21 20:24 Last Admin: 05/01/21 08:57 Dose: Not Given Documented by: Miscellaneous (Remove Lidoderm Patch) 1 ea N/A HS [facility] Stop: 05/11/21 20:59 Last Admin: 04/30/21 21:05 Dose: 1 ea Documented by: Nitroglycerin (Nitroglycerin Sl 0.4 Mg/Tab Tab) 0.4 mg SL PRN PRN PRN Reason: Chest Pain Stop: 05/22/21 21:40 Last Admin: 04/22/21 22:16 Dose: 0.4 mg Documented by: Pantoprazole Sodium (Pantoprazole 40 Mg Tab) 40 mg PO DAILY [facility] Stop: 05/11/21 08:59 Last Admin: 05/01/21 08:59 Dose: 40 mg Documented by: Polyethylene Glycol (Polyethylene (Miralax) 17 Gm Pack) 17 gm PO DAILY PRN PRN Reason: Constipation Stop: 05/14/21 04:42 Potassium Chloride (Potassium Chloride 10 Meq Tabcr) 10 meq PO BID [facility] Stop: 05/11/21 20:59 Last Admin: 05/01/21 09:00 Dose: 10 meq Documented by: Senna/Docusate Sodium (Docusate Sodium/Senna 50/8.6mg Tab) 1 tab PO QAM [facility] Stop: 05/14/21 04:44 Last Admin: 05/01/21 08:58 Dose: 1 tab Documented by: Sumatriptan Succinate (Sumatriptan Succinate 25 Mg Tab) 25 mg PO DAILY PRN PRN Reason: Migraine Headache Stop: 05/08/21 10:18 Last Admin: 04/30/21 00:26 Dose: 25 mg Documented by: Zolpidem Tartrate (Zolpidem Tartrate 5 Mg Tab) 5 mg PO HS [facility] Stop: 05/02/21 20:59 Last Admin: 04/30/21 22:30 Dose: 5 mg Documented by:
[2021-05-01] MEDS ORDERED: ACETAMINOPHEN W/CODEINE #3 1 TAB PO ONE (20:51)
[2021-05-01] MEDS: ENOXAPARIN INJ 40 MG/0.4 ML SYR SQ SCH (21:39)
[2021-05-01] MEDS: EZETIMIBE 10 MG TABLET PO SCH (21:40)
[2021-05-01] MEDS: ZOLPIDEM TARTRATE 5 MG TAB PO SCH (21:40)
[2021-05-01] MEDS: lamoTRIgine 25 MG TAB PO SCH (21:41)
[2021-05-01] MEDS: ALBUTEROL 0.5% NEB SOLN 2.5 MG/0.5 ML VIAL NEB PRN (22:40)
[2021-05-01] MEDS: PROMETHAZINE HCL 12.5 MG in SODIUM CHLORIDE 0.9% 50 ML IV PRN (23:11)
[2021-05-02] MEDS ORDERED: tiZANidine HCL 4 MG TABLET PO STA (00:20)
[2021-05-02] MEDS: DICLOFENAC SOD 1% GEL 100 GM TUBE EXT SCH ×3 (06:01→18:15)
[2021-05-02] MEDS: LACTASE 3000 UNIT TAB PO SCH ×3 (08:48→16:30)
[2021-05-02] MEDS: amLODIPine BESYLATE 5 MG TAB PO SCH (08:49)
[2021-05-02] MEDS: ASPIRIN 81 MG ECTAB PO SCH (08:50)
[2021-05-02] MEDS: PANTOprazole 40 MG TAB PO SCH (09:09)
[2021-05-02] MEDS: DOCUSATE SODIUM/SENNA 50/8.6MG TAB PO SCH (09:10)
[2021-05-02] MEDS: METOPROLOL TARTRATE 25 MG TAB PO SCH ×2 (09:11→21:10)
[2021-05-02] MEDS: ADVANCED PROBIOTIC 1250 MG CAPSULE PO SCH (09:12)
[2021-05-02] MEDS: GABAPENTIN 100 MG CAP PO SCH ×3 (09:12→21:11)
[2021-05-02] MEDS: MAGNESIUM OXIDE 400 MG TAB PO SCH ×2 (09:13→21:11)
[2021-05-02] MEDS: POTASSIUM CHLORIDE 10 MEQ TABCR PO SCH ×2 (09:14→21:11)
[2021-05-02] MEDS: ACETAMINOPHEN 500 MG TAB PO SCH ×2 (09:18→16:39)
--- NOTE | 2021-05-02 09:57 | Communication Note ---
Date of Service: May 02, 2021 patient more confused yesterday pm, son had difficulty understanding her on the phone, continues with fixed delusion around [place]. Son and patient would like to resume an antipsychotic medication VICKI. The patient would prefer Risperdal, will start today's dose around 2 pm as does tend to be worse in the afternoons/early evening. Per liaison patient is sleeping fine. Seroquel was discussed as a possible option as she is not ambulatory but likely to be sedating like Zyprexa, generally less EPS though than Risperdal. Increasing concern for depression given length of confinement pending placement.
[2021-05-02] MEDS: LIDOCAINE 5% 1 PATCH TD SCH (10:43)
[2021-05-02] MEDS: FERROUS SULFATE 325 MG TAB PO SCH (10:47)
[2021-05-02] MEDS: risperiDONE 0.5 MG TABLET PO SCH (14:26)
--- NOTE | 2021-05-02 17:36 | Hospitalist Progress Note ---
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 Being managed for the following: Pneumonia Admission CXR - bibasilar infiltration more on the right could be secondary to aspiration versus HCAP Initial lactic acid 3.2---> 1.9, no other signs of sepsis. MRSA screen negative Zosyn 03/12 --> change to Augmentin 03/14 -->Levaquin 03/15 d/t E.cloacae and E. 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 On Ambien. 04/18 - visual and auditory hallucinations, worsening delusions/paranoia. Per psychiatry, tapered Risperdal in favor of trial of Zyprexa 2.5 mg at bedtime. Zyprexa increased to 5 mg at bedtime on 04/22 04/24 - Decrease Zyprexa back to 2.5mg qhs given emergence of side effects (daytime fatigue, flattening of affect and softer speech) at higher dose. May need to consider reducing dopamine agent for Parkinson's to better target psychotic symptoms versus Seroquel trail if symptoms persist on low dose Zyprexa. discussed with psychiatry, stopped Sinemet afternoon dose as it can be driving her psychosis 04/29 - DC zyprexa 05/01-Risperdal had been started 03/24 which was then cross-tapered to Olanzapine which was stopped due to worsening bradykinesia and parkinsonism side effects. Despite understanding that her Sinemet contributes to her paranoia, she would like to have this restarted. 05/02-Sinemet on hold and risperidone restarted. CAUTI:Chronic indwelling Cheng catheter History of recurrent UTIs. Patient overdue for follow-up with urology---> Alexandrea BETANCOURT to arrange for outpatient follow-up for management of her chronic Cheng UA was suggestive of infection, 03/12 urine culture Enterobacter cloacae and E. coli. Completed Levaquin. 04/18 - reports burning at Cheng site Repeat urine culture growing Enterobacter cloacae, multidrug-resistant. On meropenem Unclear if true infection or colonization ID consulted -presence of bacteriuria and pyuria expected with an indwelling catheter and has no specificity for UTI. No systemic s/sx of infection. Consider other alternatives for urinary incontinence care. Stop meropenem and observe for signs directly attributable to her infection and urinary tract before restarting. Family and patient refused for cheng catheter removal. Patient with longstanding overflow incontinence issues. Discussed increased risk for UTIs Replaced on 04/24. She refuses removal as there is an issue with frequent urinary incontinence and concern for subsequent skin breakdown, will need monthly changes Outpatient follow-up with urology Chest pain - resolved -Developed chest pain on 03/27 and was transferred to [facility] with telemetry -Troponin negative x2, EKG nonischemic -Reproducible on exam, likely musculoskeletal in nature -Another episode of chest pain on 04/06 evening, EKG and troponin unremarkable Chronic Diastolic CHF pt with episode of decompensated CHF while hospitalized, now resolved -Echo 03/21/2021 -EF 55-60%, grade 2 diastolic dysfunction 03/14 CXR: Mild pulmonary edema. Possible small left pleural effusion 03/14 IV dose of Lasix 03/28 IV Lasix x 1 dose euvolemic today, daily weights TIA Patient was a stroke alert overnight (03/20-03/21) Likely TIA - involving the right hemisphere with left facial droop yet on imaging has no evidence for a completed event Head and neck CTA, brain MRI unremarkable for acute findings Neurology consulted, input appreciated Do not have sufficient evidence to recommend adding Plavix to her aspirin but will observe her for recurrent events and if they do enlarge then certainly would add another antiplatelet agent Recommend to continue aspirin 81 mg daily, and 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 Fields CMT (Yiuhjst-Xklno-Apgwr disease): S/p multiple lower extremity procedures, most recently s/p left knee closed reduction total knee arthroplasty subluxation on 02/16/2021 - patient is to re main nonweightbearing of the left lower extremity and limited weightbearing on the right lower extremity Narcotics have been stopped-added Tramadol for relief Abnormal Left ankle XR Chronic multiple joint pain, more on the left leg 03/15 x-ray left ankle: A 1.8 cm linear ossific density posterior to the talus may represent an avulsion fracture from the dorsal calcaneus. Clinical correlation will be essential. Orthopedic consulted for left calcaneal superior posterior avulsion fracture status post fall: High tide walking boot removed, replaced with a dorsiflexion splint with a negative relief under the left heel and lambs wool padding to provide essentially neutral support for neutral dorsiflexion of the left ankle and heel and foot. Orthopedic recommending may use the walking boot for transfers or ambulating and wheelchair as necessary. Follow-up with outpatient orthopedics. Dr. Crain, [facility] [place]. Per patient request, bilateral ankle x-rays ordered on 04/13 - ordered, unchanged, follow up with Dr. Crain. Parkinson disease: sinemet on hold, cont risperidone Chronic pain: Continue home regimen, minimize escalations in narcotics DVT prophylaxis: SQ Lovenox Disposition:Medically stable; awaiting placement to facility. Marie Ceballos DO [facility] Hospitalist Admission and Anticipated Discharge Date Admission Date: March 12, 2021 Subjective 76 yo F admitted for recurrent UTI, pneumonia, hallucinations/paranoia. continues to report chronic pain in her lower extremities. tolerating PO no respiratory issues denies pain in abdomen asks for ankle wrap to be done again. Review of Systems Review of Systems: All systems were reviewed and negative except as indicated in subjective above. Physical Exam Physical Exam: CONSTITUTIONAL: WNWD, vitals as above, NAD EYES: normal conjunctivae, no scleral icterus ENT: external ear and nose normal, MMM, tends to drool which has been ongoing NECK: trachea midline, RESPIRATORY: clear to auscultation bilaterally, no crackles, rales or wheezes, normal respiratory effort CARDIOVASCULAR: regular rate and rhythm, S1 and 2 heard without murmurs, gallop s or rubs, no JVD, no peripheral edema, GASTROINTESTINAL: soft, nontender, ND no guarding MUSCULOSKELETAL: moves extremities symmetrically, soft brace to left knee and bilateral ERIKA wraps to her ankles, generalized weakness. head is normocephalic and atraumatic SKIN: warm and dry NEUROLOGIC: CN 2-12 grossly intact, normal cognition, hypophonic speech, no tremor PSYCHIATRIC: alert cooperative and answering questions appropriately Results & Data Results & Data ([facility]) Vital Signs (Past 12 Hours) Vital Signs Temp Pulse Resp BP Pulse Ox 05/02/21 15:20 37.5 C 50 L 16 152/75 H 98 05/02/21 07:33 36.6 C 50 L 16 114/66 98 Medications Administered Current Inpatient Medications Acetaminophen (Acetaminophen 500 Mg Tab) 500 mg PO Q8@0000,0800,1600 [facility] Stop: 05/19/21 15:59 Last Admin: 05/02/21 16:39 Dose: 500 mg Documented by: Albuterol (Albuterol 0.5% Neb Soln 2.5 Mg/0.5 Ml Vial) 2.5 mg NEB Q6R PRN PRN Reason: wheezing, SOB Stop: 05/11/21 17:17 Last Admin: 05/01/21 22:40 Dose: 2.5 mg Documented by: Albuterol (Albut/Ipratrop 3mg/0.5mg Neb 3 Ml Vial) 3 ml NEB Q4R PRN PRN Reason: Shortness Of Breath Or Wheezing Stop: 05/11/21 10:48 Last Admin: 04/25/21 21:12 Dose: 3 ml Documented by: Amlodipine Besylate (Amlodipine Besylate 5 Mg Tab) 5 mg PO QAM [facility] Stop: 05/11/21 12:14 Last Admin: 05/02/21 08:49 Dose: 5 mg Documented by: Aspirin (Aspirin 81 Mg Ectab) 81 mg PO DAILY [facility] Stop: 05/11/21 08:59 Last Admin: 05/02/21 08:50 Dose: 81 mg Documented by: Carbidopa/Levodopa (Carbidopa/Levodopa 25/100mg Tab) 1 tab PO TID [facility] Stop: 05/31/21 13:59 Diclofenac Sodium (Diclofenac Sod 1% Gel 100 Gm Tube) 2 gm EXT Q6 [facility] Stop: 05/11/21 15:29 Last Admin: 05/02/21 12:19 Dose: 2 gm Documented by: Docusate Sodium (Docusate Sodium 100 Mg Cap) 100 mg PO DAILY PRN PRN Reason: Constipation Stop: 05/11/21 16:59 Last Admin: 04/06/21 02:36 Dose: 100 mg Documented by: Ezetimibe (Ezetimibe 10 Mg Tablet) 10 mg PO HS [facility] Stop: 05/11/21 20:59 Last Admin: 05/01/21 21:40 Dose: 10 mg Documented by: Enoxaparin Sodium (Enoxaparin Inj 40 Mg/0.4 Ml Syr) 40 mg SQ Q24H [facility] Stop: 05/11/21 16:59 Last Admin: 05/01/21 21:39 Dose: 40 mg Documented by: Ferrous Sulfate (Ferrous Sulfate 325 Mg Tab) 325 mg PO DAILY@1100 [facility] Stop: 05/11/21 10:59 Last Admin: 05/02/21 10:47 Dose: 325 mg Documented by: Gabapentin (Gabapentin 100 Mg Cap) 200 mg PO TID [facility] Stop: 05/11/21 20:59 Last Admin: 05/02/21 14:20 Dose: 200 mg Documented by: Promethazine HCl 12.5 mg/ (Sodium Chloride) 50.5 mls @ 202 mls/hr IV Q6H PRN PRN Reason: Nausea And Vomiting Stop: 05/11/21 20:07 Last Infusion: 05/01/21 23:39 Dose: Infused Documented by: Lactase (Lactase 3000 Unit Tab) 3,000 units PO AC [facility] Stop: 05/11/21 16:59 Last Admin: 05/02/21 16:30 Dose: 3,000 units Documented by: Lactobacillus Acidoph/Casei/Rhamnos (Advanced Probiotic 1250 Mg Capsule) 2 cap PO DAILY [facility] Stop: 05/11/21 14:29 Last Admin: 05/02/21 09:12 Dose: 2 cap Documented by: Lamotrigine (Lamotrigine 25 Mg Tab) 75 mg PO HS [facility] Stop: 05/11/21 20:59 Last Admin: 05/01/21 21:41 Dose: 75 mg Documented by: Lidocaine (Lidocaine 5% 1 Patch) 1 patch TD DAILY [facility] Stop: 05/11/21 08:59 Last Admin: 05/02/21 10:43 Dose: 1 patch Documented by: Magnesium Oxide (Magnesium Oxide 400 Mg Tab) 400 mg PO BID [facility] Stop: 05/18/21 20:59 Last Admin: 05/02/21 09:13 Dose: 400 mg Documented by: Metoprolol Tartrate (Metoprolol Tartrate 25 Mg Tab) 25 mg PO BID [facility] Stop: 05/17/21 20:24 Last Admin: 05/02/21 09:11 Dose: Not Given Documented by: Miscellaneous (Remove Lidoderm Patch) 1 ea N/A HS [facility] Stop: 05/11/21 20:59 Last Admin: 05/01/21 21:41 Dose: 1 ea Documented by: Nitroglycerin (Nitroglycerin Sl 0.4 Mg/Tab Tab) 0.4 mg SL PRN PRN PRN Reason: Chest Pain Stop: 05/22/21 21:40 Last Admin: 04/22/21 22:16 Dose: 0.4 mg Documented by: Pantoprazole Sodium (Pantoprazole 40 Mg Tab) 40 mg PO DAILY [facility] Stop: 05/11/21 08:59 Last Admin: 05/02/21 09:09 Dose: 40 mg Documented by: Polyethylene Glycol (Polyethylene (Miralax) 17 Gm Pack) 17 gm PO DAILY PRN PRN Reason: Constipation Stop: 05/14/21 04:42 Potassium Chloride (Potassium Chloride 10 Meq Tabcr) 10 meq PO BID [facility] Stop: 05/11/21 20:59 Last Admin: 05/02/21 09:14 Dose: 10 meq Documented by: Risperidone (Risperidone 0.5 Mg Tablet) 0.5 mg PO TODAY@1400 [facility] Stop: 06/01/21 13:59 Last Admin: 05/02/21 14:26 Dose: 0.5 mg Documented by: Senna/Docusate Sodium (Docusate Sodium/Senna 50/8.6mg Tab) 1 tab PO QAM [facility] Stop: 05/14/21 04:44 Last Admin: 05/02/21 09:10 Dose: 1 tab Documented by: Sumatriptan Succinate (Sumatriptan Succinate 25 Mg Tab) 25 mg PO DAILY PRN PRN Reason: Migraine Headache Stop: 05/08/21 10:18 Last Admin: 04/30/21 00:26 Dose: 25 mg Documented by: Zolpidem Tartrate (Zolpidem Tartrate 5 Mg Tab) 5 mg PO [facility] Stop: 05/02/21 20:59 Last Admin: 05/01/21 21:40 Dose: 5 mg Documented by:
[2021-05-02] MEDS: ONDANSETRON INJ 2 MG/ML 2 ML VIAL IV PRN (18:21)
[2021-05-02] MEDS: ENOXAPARIN INJ 40 MG/0.4 ML SYR SQ SCH (21:08)
[2021-05-02] MEDS: traMADol HCL 50 MG TABLET PO PRN (21:10)
[2021-05-02] MEDS: EZETIMIBE 10 MG TABLET PO SCH (21:10)
[2021-05-02] MEDS: lamoTRIgine 25 MG TAB PO SCH (21:10)
[2021-05-02] MEDS ORDERED: ZOLPIDEM TARTRATE 5 MG TAB PO STA (22:52)
[2021-05-03] MEDS: DICLOFENAC SOD 1% GEL 100 GM TUBE EXT SCH ×4 (00:51→17:44)
[2021-05-03] MEDS: ACETAMINOPHEN 500 MG TAB PO SCH ×3 (00:51→16:51)
[2021-05-03] MEDS: amLODIPine BESYLATE 5 MG TAB PO SCH (07:47)
[2021-05-03] MEDS: METOPROLOL TARTRATE 25 MG TAB PO SCH ×2 (07:47→20:54)
[2021-05-03] MEDS: LACTASE 3000 UNIT TAB PO SCH ×3 (07:48→16:51)
[2021-05-03] MEDS: DOCUSATE SODIUM/SENNA 50/8.6MG TAB PO SCH (07:49)
[2021-05-03] MEDS: LIDOCAINE 5% 1 PATCH TD SCH (07:52)
[2021-05-03] MEDS: GABAPENTIN 100 MG CAP PO SCH ×3 (07:53→21:09)
[2021-05-03] MEDS: ADVANCED PROBIOTIC 1250 MG CAPSULE PO SCH (07:54)
[2021-05-03] MEDS: PANTOprazole 40 MG TAB PO SCH (07:54)
[2021-05-03] MEDS: ASPIRIN 81 MG ECTAB PO SCH (07:54)
[2021-05-03] MEDS: POTASSIUM CHLORIDE 10 MEQ TABCR PO SCH ×2 (07:55→20:54)
[2021-05-03] MEDS: MAGNESIUM OXIDE 400 MG TAB PO SCH ×2 (07:55→20:54)
[2021-05-03] MEDS: FERROUS SULFATE 325 MG TAB PO SCH (11:40)
[2021-05-03] MEDS: traMADol HCL 50 MG TABLET PO PRN ×2 (11:44→20:54)
[2021-05-03] MEDS: risperiDONE 0.5 MG TABLET PO SCH (14:28)
--- NOTE | 2021-05-03 18:46 | Hospitalist Progress Note ---
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 Being managed for the following: Pneumonia Admission CXR - bibasilar infiltration more on the right could be secondary to aspiration versus HCAP Initial lactic acid 3.2---> 1.9, no other signs of sepsis. MRSA screen negative Zosyn 03/12 --> change to Augmentin 03/14 -->Levaquin 03/15 d/t E.cloacae and E. 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 On Ambien. 04/18 - visual and auditory hallucinations, worsening delusions/paranoia. Per psychiatry, tapered Risperdal in favor of trial of Zyprexa 2.5 mg at bedtime. Zyprexa increased to 5 mg at bedtime on 04/22 04/24 - Decrease Zyprexa back to 2.5mg qhs given emergence of side effects (daytime fatigue, flattening of affect and softer speech) at higher dose. May need to consider reducing dopamine agent for Parkinson's to better target psychotic symptoms versus Seroquel trail if symptoms persist on low dose Zyprexa. discussed with psychiatry, stopped Sinemet afternoon dose as it can be driving her psychosis 04/29 - DC zyprexa 05/01-Risperdal had been started 03/24 which was then cross-tapered to Olanzapine which was stopped due to worsening bradykinesia and parkinsonism side effects. Despite understanding that her Sinemet contributes to her paranoia, she would like to have this restarted. 05/02-Sinemet on hold and risperidone restarted. 05/03-patient states she sees no improvement on the risperidone CAUTI:Chronic indwelling Cheng catheter History of recurrent UTIs. Patient overdue for follow-up with urology---> Alexandrea BETANCOURT to arrange for outpatient follow-up for management of her chronic Cheng UA was suggestive of infection, 03/12 urine culture Enterobacter cloacae and E. coli. Completed Levaquin. 04/18 - reports burning at Cheng site Repeat urine culture growing Enterobacter cloacae, multidrug-resistant. On meropenem Unclear if true infection or colonization ID consulted -presence of bacteriuria and pyuria expected with an indwelling catheter and has no specificity for UTI. No systemic s/sx of infection. Consider other alternatives for urinary incontinence care. Stop meropenem and observe for signs directly attributable to her infection and urinary tract before restarting. Family and patient refused for cheng catheter removal. Patient with longstanding overflow incontinence issues. Discussed increased risk for UTIs Replaced on 04/24. She refuses removal as there is an issue with frequent urinary incontinence and concern for subsequent skin breakdown, will need monthly changes Outpatient follow-up with urology Chest pain - resolved -Developed chest pain on 03/27 and was transferred to [facility] with telemetry -Troponin negative x2, EKG nonischemic -Reproducible on exam, likely musculoskeletal in nature -Another episode of chest pain on 04/06 evening, EKG and troponin unremarkable Chronic Diastolic CHF pt with episode of decompensated CHF while hospitalized, now resolved -Echo 03/21/2021 -EF 55-60%, grade 2 diastolic dysfunction 03/14 CXR: Mild pulmonary edema. Possible small left pleural effusion 03/14 IV dose of Lasix 03/28 IV Lasix x 1 dose appears euvolemic today, daily weights TIA Patient was a stroke alert overnight (03/20-03/21) Likely TIA - involving the right hemisphere with left facial droop yet on imaging has no evidence for a completed event Head and neck CTA, brain MRI unremarkable for acute findings Neurology consulted, input appreciated Do not have sufficient evidence to recommend adding Plavix to her aspirin but will observe her for recurrent events and if they do enlarge then certainly would add another antiplatelet agent Recommend to continue aspirin 81 mg daily, and 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 Fields CMT (Vrcqklb-Hmyos-Jcgyx disease): S/p multiple lower extremity procedures, most recently s/p left knee closed reduction total knee arthroplasty subluxation on 02/16/2021 - patient is to remain nonweightbearing of the left lower extremity and limited weightbearing on the right lower extremity Pain controlled with tramadol-given a couple of doses today and reports no improvement. Ortho requested for re-evaluation Repeat PT and OT evaluation--remains NWB on the left until ortho clears her to weight bear. Right ankle pain reported-most recent xray performed 04/13 with no acute fracture. Apprec ortho thoughts. Abnormal Left ankle XR Chronic multiple joint pain, more on the left leg 03/15 x-ray left ankle: A 1.8 cm linear ossific density posterior to the talus may represent an avulsion fracture from the dorsal calcaneus. Clinical correlation will be essential. Orthopedic consulted for left calcaneal superior posterior avulsion fracture status post fall: High tide walking boot removed, replaced with a dorsiflexion splint with a negative relief under the left heel and lambs wool padding to provide essentially neutral support for neutral dorsiflexion of the left ankle and heel and foot. Orthopedic recommending may use the walking boot for transfers or ambulating and wheelchair as necessary. Follow-up with [place] [facility] [place] request, bilateral ankle x-rays ordered on 04/13 - ordered, unchanged, follow up with Dr. Crain. Parkinson disease: sinemet on hold, cont risperidone. Chronic pain: Continue home regimen, minimize escalations in narcotics DVT prophylaxis: SQ Lovenox Disposition:Medically stable; awaiting placement to facility. [facility] Admission and Anticipated Discharge Date Admission Date: March 12, 2021 Subjective 76 yo F admitted for recurrent UTI, pneumonia, hallucinations/paranoia. continues to report chronic pain in her lower extremities. she was able to get out of bed to chair per nursing staff who asked PT and OT to re-evaluate her Patient is very difficult to understand 2/2 hypophonic speech from Parkinson's Overall she seems to have had more pain with weight bearing on her ankle R> L today Per CM is requesting bilateral ankle MRIs Defer the appropriateness of this to ortho, asked them to re-evaluate. Review of Systems Review of Systems: All systems were reviewed and negative except as indicated in subjective above. Physical Exam Physical Exam: CONSTITUTIONAL: WNWD, vitals as above, NAD EYES: normal conjunctivae, no scleral icterus ENT: external ear and nose normal, MMM, tends to drool which has been ongoing NECK: trachea midline, RESPIRATORY: clear to auscultation bilaterally, no crackles, rales or wheezes, normal respiratory effort CARDIOVASCULAR: regular rate and rhythm, S1 and 2 heard without murmurs, gallops or rubs, no JVD, no peripheral edema, GASTROINTESTINAL: soft, nontender, ND no guarding MUSCULOSKELETAL: moves extremities symmetrically, soft brace to left knee and bilateral ERIKA wraps to her ankles, generalized weakness. head is normocephalic and atraumatic SKIN: warm and dry NEUROLOGIC: CN 2-12 grossly intact, normal cognition, hypophonic speech, no tremor PSYCHIATRIC: alert cooperative and answering questions appropriately Results & Data Results & Data ([facility]) Vital Signs (Past 12 Hours) Vital Signs Temp Pulse Resp BP Pulse Ox 05/03/21 14:44 36.7 C 72 16 129/74 96 05/03/21 07:38 36.7 C 53 L 16 121/73 97 Medications Administered Current Inpatient Medications Acetaminophen (Acetaminophen 500 Mg Tab) 500 mg PO Q8@0000,0800,1600 [facility] Stop: 05/19/21 15:59 Last Admin: 05/03/21 16:51 Dose: 500 mg Documented by: Albuterol (Albuterol 0.5% Neb Soln 2.5 Mg/0.5 Ml Vial) 2.5 mg NEB Q6R PRN PRN Reason: wheezing, SOB Stop: 05/11/21 17:17 Last Admin: 05/01/21 22:40 Dose: 2.5 mg Documented by: Albuterol (Albut/Ipratrop 3mg/0.5mg Neb 3 Ml Vial) 3 ml NEB Q4R PRN PRN Reason: Shortness Of Breath Or Wheezing Stop: 05/11/21 10:48 Last Admin: 04/25/21 21:12 Dose: 3 ml Documented by: Amlodipine Besylate (Amlodipine Besylate 5 Mg Tab) 5 mg PO QAM [facility] Stop: 05/11/21 12:14 Last Admin: 05/03/21 07:47 Dose: 5 mg Documented by: Aspirin (Aspirin 81 Mg Ectab) 81 mg PO DAILY [facility] Stop: 05/11/21 08:59 Last Admin: 05/03/21 07:54 Dose: 81 mg Documented by: Carbidopa/Levodopa (Carbidopa/Levodopa 25/100mg Tab) 1 tab PO TID [facility] Stop: 05/31/21 13:59 Diclofenac Sodium (Diclofenac Sod 1% Gel 100 Gm Tube) 2 gm EXT Q6 [facility] Stop: 05/11/21 15:29 Last Admin: 05/03/21 17:44 Dose: Not Given Documented by: Docusate Sodium (Docusate Sodium 100 Mg Cap) 100 mg PO DAILY PRN PRN Reason: Constipation Stop: 05/11/21 16:59 Last Admin: 04/06/21 02:36 Dose: 100 mg Documented by: Ezetimibe (Ezetimibe 10 Mg Tablet) 10 mg PO HS [facility] Stop: 05/11/21 20:59 Last Admin: 05/02/21 21:10 Dose: 10 mg Documented by: Enoxaparin Sodium (Enoxaparin Inj 40 Mg/0.4 Ml Syr) 40 mg SQ Q24H [facility] Stop: 05/11/21 16:59 Last Admin: 05/02/21 21:08 Dose: 40 mg Documented by: Ferrous Sulfate (Ferrous Sulfate 325 Mg Tab) 325 mg PO DAILY@1100 [facility] Stop: 05/11/21 10:59 Last Admin: 05/03/21 11:40 Dose: 325 mg Documented by: Gabapentin (Gabapentin 100 Mg Cap) 200 mg PO TID [facility] Stop: 05/11/21 20:59 Last Admin: 05/03/21 14:28 Dose: 200 mg Documented by: Lactase (Lactase 3000 Unit Tab) 3,000 units PO AC [facility] Stop: 05/11/21 16:59 Last Admin: 05/03/21 16:51 Dose: 3,000 units Documented by: Lactobacillus Acidoph/Casei/Rhamnos (Advanced Probiotic 1250 Mg Capsule) 2 cap PO DAILY [facility] Stop: 05/11/21 14:29 Last Admin: 05/03/21 07:54 Dose: 2 cap Documented by: Lamotrigine (Lamotrigine 25 Mg Tab) 75 mg PO [facility] Stop: 05/11/21 20:59 Last Admin: 05/02/21 21:10 Dose: 75 mg Documented by: Lidocaine (Lidocaine 5% 1 Patch) 1 patch TD DAILY [facility] Stop: 05/11/21 08:59 Last Admin: 05/03/21 07:52 Dose: 1 patch Documented by: Magnesium Oxide (Magnesium Oxide 400 Mg Tab) 400 mg PO BID [facility] Stop: 05/18/21 20:59 Last Admin: 05/03/21 07:55 Dose: 400 mg Documented by: Metoprolol Tartrate (Metoprolol Tartrate 25 Mg Tab) 25 mg PO BID [facility] Stop: 05/17/21 20:24 Last Admin: 05/03/21 07:47 Dose: Not Given Documented by: Miscellaneous (Remove Lidoderm Patch) 1 ea N/A [facility] Stop: 05/11/21 20:59 Last Admin: 05/02/21 21:11 Dose: 1 ea Documented by: Nitroglycerin (Nitroglycerin Sl 0.4 Mg/Tab Tab) 0.4 mg SL PRN PRN PRN Reason: Chest Pain Stop: 05/22/21 21:40 Last Admin: 04/22/21 22:16 Dose: 0.4 mg Documented by: Ondansetron HCl (Ondansetron Inj 2 Mg/Ml 2 Ml Vial) 4 mg IV Q8H PRN PRN Reason: Nausea And Vomiting Stop: 06/01/21 18:12 Last Admin: 05/02/21 18:21 Dose: 4 mg Documented by: Pantoprazole Sodium (Pantoprazole 40 Mg Tab) 40 mg PO DAILY [facility] Stop: 05/11/21 08:59 Last Admin: 05/03/21 07:54 Dose: 40 mg Documented by: Polyethylene Glycol (Polyethylene (Miralax) 17 Gm Pack) 17 gm PO DAILY PRN PRN Reason: Constipation Stop: 05/14/21 04:42 Potassium Chloride (Potassium Chloride 10 Meq Tabcr) 10 meq PO BID [facility] Stop: 05/11/21 20:59 Last Admin: 05/03/21 07:55 Dose: 10 meq Documented by: Risperidone (Risperidone 0.5 Mg Tablet) 0.5 mg PO TODAY@1400 [facility] Stop: 06/01/21 13:59 Last Admin: 05/03/21 14:28 Dose: 0.5 mg Documented by: Senna/Docusate Sodium (Docusate Sodium/Senna 50/8.6mg Tab) 1 tab PO QAM [facility] Stop: 05/14/21 04:44 Last Admin: 05/03/21 07:49 Dose: 1 tab Documented by: Sumatriptan Succinate (Sumatriptan Succinate 25 Mg Tab) 25 mg PO DAILY PRN PRN Reason: Migraine Headache Stop: 05/08/21 10:18 Last Admin: 04/30/21 00:26 Dose: 25 mg Documented by: Tramadol HCl (Tramadol Hcl 50 Mg Tablet) 50 mg PO Q6H PRN PRN Reason: Pain (6-10) Stop: 06/01/21 18:23 Last Admin: 05/03/21 11:44 Dose: 50 mg Documented by:
[2021-05-03] MEDS: ENOXAPARIN INJ 40 MG/0.4 ML SYR SQ SCH (20:54)
[2021-05-03] MEDS: EZETIMIBE 10 MG TABLET PO SCH (20:54)
[2021-05-03] MEDS: lamoTRIgine 25 MG TAB PO SCH (21:09)
[2021-05-04] MEDS: DICLOFENAC SOD 1% GEL 100 GM TUBE EXT SCH ×5 (00:13→23:14)
[2021-05-04] MEDS: ACETAMINOPHEN 500 MG TAB PO SCH ×4 (00:14→23:14)
[2021-05-04] MEDS: FERROUS SULFATE 325 MG TAB PO SCH (08:34)
[2021-05-04] MEDS: amLODIPine BESYLATE 5 MG TAB PO SCH (08:34)
[2021-05-04] MEDS: POTASSIUM CHLORIDE 10 MEQ TABCR PO SCH ×2 (08:34→21:09)
[2021-05-04] MEDS: MAGNESIUM OXIDE 400 MG TAB PO SCH ×2 (08:34→21:09)
[2021-05-04] MEDS: GABAPENTIN 100 MG CAP PO SCH ×3 (08:34→21:10)
[2021-05-04] MEDS: DOCUSATE SODIUM/SENNA 50/8.6MG TAB PO SCH (08:34)
[2021-05-04] MEDS: ASPIRIN 81 MG ECTAB PO SCH (08:34)
[2021-05-04] MEDS: PANTOprazole 40 MG TAB PO SCH (08:34)
[2021-05-04] MEDS: LACTASE 3000 UNIT TAB PO SCH ×3 (08:34→17:27)
[2021-05-04] MEDS: ADVANCED PROBIOTIC 1250 MG CAPSULE PO SCH (08:34)
[2021-05-04] MEDS: METOPROLOL TARTRATE 25 MG TAB PO SCH ×2 (08:35→21:08)
[2021-05-04] MEDS: ONDANSETRON INJ 2 MG/ML 2 ML VIAL IV PRN (09:26)
[2021-05-04] MEDS: LIDOCAINE 5% 1 PATCH TD SCH (11:28)
[2021-05-04] MEDS: risperiDONE 0.5 MG TABLET PO SCH (13:16)
[2021-05-04] MEDS: traMADol HCL 50 MG TABLET PO PRN ×2 (13:16→19:34)
--- NOTE | 2021-05-04 15:21 | Hospitalist Progress Note ---
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 Being managed for the following: Pneumonia Admission CXR - bibasilar infiltration more on the right could be secondary to aspiration versus HCAP Initial lactic acid 3.2---> 1.9, no other signs of sepsis. MRSA screen negative Zosyn 03/12 --> change to Augmentin 03/14 -->Levaquin 03/15 d/t E.cloacae and E. 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 On Ambien. 04/18 - visual and auditory hallucinations, worsening delusions/paranoia. Per psychiatry, tapered Risperdal in favor of trial of Zyprexa 2.5 mg at bedtime. Zyprexa increased to 5 mg at bedtime on 04/22 04/24 - Decrease Zyprexa back to 2.5mg qhs given emergence of side effects (daytime fatigue, flattening of affect and softer speech) at higher dose. May need to consider reducing dopamine agent for Parkinson's to better target psychotic symptoms versus Seroquel trail if symptoms persist on low dose Zyprexa. discussed with psychiatry, stopped Sinemet afternoon dose as it can be driving her psychosis 04/29 - DC zyprexa 05/01-Risperdal had been started 03/24 which was then cross-tapered to Olanzapine which was stopped due to worsening bradykinesia and parkinsonism side effects. Despite understanding that her Sinemet contributes to her paranoia, she would like to have this restarted. 05/02-Sinemet on hold and risperidone restarted. CAUTI:Chronic indwelling Cheng catheter History of recurrent UTIs. Patient overdue for follow-up with urology---> Alexandrea BETANCOURT to arrange for outpatient follow-up for management of her chronic Cheng UA was suggestive of infection, 03/12 urine culture Enterobacter cloacae and E. coli. Completed Levaquin. 04/18 - reports burning at Cheng site Repeat urine culture growing Enterobacter cloacae, multidrug-resistant. On meropenem Unclear if true infection or colonization ID consulted -presence of bacteriuria and pyuria expected with an indwelling catheter and has no specificity for UTI. No systemic s/sx of infection. Consider other alternatives for urinary incontinence care. Stop meropenem and observe for signs directly attributable to her infection and urinary tract before restarting. Family and patient refused for cheng catheter removal. Patient with longstanding overflow incontinence issues. Discussed increased risk for UTIs Replaced on 04/24. She refuses removal as there is an issue with frequent ur inary incontinence and concern for subsequent skin breakdown, will need monthly changes Outpatient follow-up with urology Chest pain - resolved -Developed chest pain on 03/27 and was transferred to [facility] with telemetry -Troponin negative x2, EKG nonischemic -Reproducible on exam, likely musculoskeletal in nature -Another episode of chest pain on 04/06 evening, EKG and troponin unremarkable Chronic Diastolic CHF pt with episode of decompensated CHF while hospitalized, now resolved -Echo 03/21/2021 -EF 55-60%, grade 2 diastolic dysfunction 03/14 CXR: Mild pulmonary edema. Possible small left pleural effusion 03/14 IV dose of Lasix 03/28 IV Lasix x 1 dose euvolemic today, daily weights TIA Patient was a stroke alert overnight (03/20-03/21) Likely TIA - involving the right hemisphere with left facial droop yet on imaging has no evidence for a completed event Head and neck CTA, brain MRI unremarkable for acute findings Neurology consulted, input appreciated Do not have sufficient evidence to recommend adding Plavix to her aspirin but will observe her for recurrent events and if they do enlarge then certainly would add another antiplatelet agent Recommend to continue aspirin 81 mg daily, and 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 Fields CMT (Ybcengb-Mbjhd-Aphgv disease): S/p multiple lower extremity procedures, most recently s/p left knee closed reduction total knee arthroplasty subluxation on 02/16/2021 - patient is to remain nonweightbearing of the left lower extremity and limited weightbearing on the right lower extremity Narcotics have been stopped-added Tramadol for relief 05/04: she consistently is asking for pain meds and would like some more tonight. Abnormal Left ankle XR Chronic multiple joint pain, more on the left leg 03/15 x-ray left ankle: A 1.8 cm linear ossific density posterior to the talus may represent an avulsion fracture from the dorsal calcaneus. Clinical correlation will be essential. Orthopedic consulted for left calcaneal superior posterior avulsion fracture status post fall: High tide walking boot removed, replaced with a dorsiflexion splint with a negative relief under the left heel and lambs wool padding to provide essentially neutral support for neutral dorsiflexion of the left ankle and heel and foot. Orthopedic recommending may use the walking boot for transfers or ambulating and wheelchair as necessary. Follow-up with [place]opedics. [place] [facility] [place] request, bilateral ankle x-rays ordered on 04/13 - ordered, unchanged, follow up with Dr. Crain Continues to have LLE discomfort. Evaluated by Favio Ford PA-C today, patient with good ROM but painful. Will have Dr. Layne evaluate later today as well. Considering repeat ankle XR, may benefit from PT/OT if patient desires more frequent ambulation to wheelchair Parkinson disease: Sinemet on hold, cont risperidone Chronic pain: Continue current regimen, minimize escalations in narcotics DVT prophylaxis: SQ Lovenox Disposition:Medically stable; awaiting placement to facility. Admission and Anticipated Discharge Date Admission Date: March 12, 2021 Supervising Physician Co-Signing Physician Notes I have seen and examined the patient and have discussed the case with the provider above. I agree with the assessment and plan as stated. Chronic issues including pain. No further workup per Ortho at this time. Continues to work with PT more often this week and encourage OOB as tolerated. Lolita, DO Subjective 76 yo F admitted for recurrent UTI, pneumonia, hallucinations/paranoia. continues to report chronic pain in her lower extremities continues to have issues with drooling and muffled speech that have been there for weeks. Somewhat frustrated wtih this tonight was OOB today and worked wtih PT Ortho evaluated and did not recommend bilateral ankle MRIs or further imaging at this time Patient is asking for additional pain meds today, and this has become a frequent request She cannot tell me how the tramadol has been working for her Review of Systems Review of Systems: All systems were reviewed and negative except as indicated in subjective above. Physical Exam Physical Exam: Gen: WD/WN, NAD, lying in bed, NAD HEENT: Normocephalic, atraumatic, mucous membranes moist Lung: Clear to Auscultation bilaterally but diminished. No wheezes/rales/rhonchi Heart: Regular rate, regular rhythm, no murmurs, rubs, or gallops Abdomen: Soft, NT, ND : Cheng Extremities: Chronic weakness, LLE wrap in place, contractures of left hand. No edema Skin: Warm and dry Results & Data Results & Data ([facility]) Vital Signs (Past 12 Hours) Vital Signs Temp Pulse Resp BP Pulse Ox 05/04/21 07:18 36.7 C 58 L 16 129/77 96
[2021-05-04] MEDS: ENOXAPARIN INJ 40 MG/0.4 ML SYR SQ SCH (21:08)
[2021-05-04] MEDS: lamoTRIgine 25 MG TAB PO SCH (21:10)
[2021-05-04] MEDS: EZETIMIBE 10 MG TABLET PO SCH (21:10)
[2021-05-04] MEDS ORDERED: ZOLPIDEM TARTRATE 5 MG TAB PO STA (23:01)
[2021-05-05] MEDS: DICLOFENAC SOD 1% GEL 100 GM TUBE EXT SCH ×3 (05:41→17:41)
[2021-05-05] MEDS: ACETAMINOPHEN 500 MG TAB PO SCH ×2 (08:16→16:22)
[2021-05-05] MEDS: amLODIPine BESYLATE 5 MG TAB PO SCH (08:16)
[2021-05-05] MEDS: MAGNESIUM OXIDE 400 MG TAB PO SCH ×2 (08:16→21:28)
[2021-05-05] MEDS: DOCUSATE SODIUM/SENNA 50/8.6MG TAB PO SCH (08:16)
[2021-05-05] MEDS: PANTOprazole 40 MG TAB PO SCH (08:17)
[2021-05-05] MEDS: METOPROLOL TARTRATE 25 MG TAB PO SCH ×2 (08:17→21:33)
[2021-05-05] MEDS: GABAPENTIN 100 MG CAP PO SCH ×3 (08:17→21:27)
[2021-05-05] MEDS: LACTASE 3000 UNIT TAB PO SCH ×3 (08:17→16:22)
[2021-05-05] MEDS: ADVANCED PROBIOTIC 1250 MG CAPSULE PO SCH (08:17)
[2021-05-05] MEDS: LIDOCAINE 5% 1 PATCH TD SCH (08:18)
[2021-05-05] MEDS: POTASSIUM CHLORIDE 10 MEQ TABCR PO SCH ×2 (08:18→21:28)
[2021-05-05] MEDS: ASPIRIN 81 MG ECTAB PO SCH (08:18)
[2021-05-05] MEDS: traMADol HCL 50 MG TABLET PO PRN ×3 (08:22→21:25)
--- NOTE | 2021-05-05 08:51 | Hospitalist Progress Note ---
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 Being managed for the following: Pneumonia Admission CXR - bibasilar infiltration more on the right could be secondary to aspiration versus HCAP Initial lactic acid 3.2---> 1.9, no other signs of sepsis. MRSA screen negative Zosyn 03/12 --> change to Augmentin 03/14 -->Levaquin 03/15 d/t E.cloacae and E. 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 On Ambien. 04/18 - visual and auditory hallucinations, worsening delusions/paranoia. Per psychiatry, tapered Risperdal in favor of trial of Zyprexa 2.5 mg at bedtime. Zyprexa increased to 5 mg at bedtime on 04/22 04/24 - Decrease Zyprexa back to 2.5mg qhs given emergence of side effects (daytime fatigue, flattening of affect and softer speech) at higher dose. May need to consider reducing dopamine agent for Parkinson's to better target psychotic symptoms versus Seroquel trail if symptoms persist on low dose Zyprexa. discussed with psychiatry, stopped Sinemet afternoon dose as it can be driving her psychosis 04/29 - DC zyprexa 05/01-Risperdal had been started 03/24 which was then cross-tapered to Olanzapine which was stopped due to worsening bradykinesia and parkinsonism side effects. Despite understanding that her Sinemet contributes to her paranoia, she would like to have this restarted. 05/02-Sinemet on hold and risperidone restarted. CAUTI:Chronic indwelling Cheng catheter History of recurrent UTIs. Patient overdue for follow-up with urology---> Alexandrea BETANCOURT to arrange for outpatient follow-up for management of her chronic Cheng UA was suggestive of infection, 03/12 urine culture Enterobacter cloacae and E. coli. Completed Levaquin. 04/18 - reports burning at Cheng site Repeat urine culture growing Enterobacter cloacae, multidrug-resistant. On meropenem Unclear if true infection or colonization ID consulted -presence of bacteriuria and pyuria expected with an indwelling catheter and has no specificity for UTI. No systemic s/sx of infection. Consider other alternatives for urinary incontinence care. Stop meropenem and observe for signs directly attributable to her infection and urinary tract before restarting. Family and patient refused for cheng catheter removal. Patient with longstanding overflow incontinence issues. Discussed increased risk for UTIs Replaced on 04/24. She refuses removal as there is an issue with frequent u rinary incontinence and concern for subsequent skin breakdown, will need monthly changes Outpatient follow-up with urology Chest pain - resolved -Developed chest pain on 03/27 and was transferred to [facility] with telemetry -Troponin negative x2, EKG nonischemic -Reproducible on exam, likely musculoskeletal in nature -Another episode of chest pain on 04/06 evening, EKG and troponin unremarkable Chronic Diastolic CHF pt with episode of decompensated CHF while hospitalized, now resolved -Echo 03/21/2021 -EF 55-60%, grade 2 diastolic dysfunction 03/14 CXR: Mild pulmonary edema. Possible small left pleural effusion 03/14 IV dose of Lasix 03/28 IV Lasix x 1 dose euvolemic today, daily weights TIA Patient was a stroke alert overnight (03/20-03/21) Likely TIA - involving the right hemisphere with left facial droop yet on imaging has no evidence for a completed event Head and neck CTA, brain MRI unremarkable for acute findings Neurology consulted, input appreciated Do not have sufficient evidence to recommend adding Plavix to her aspirin but will observe her for recurrent events and if they do enlarge then certainly would add another antiplatelet agent Recommend to continue aspirin 81 mg daily, and 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 Fields CMT (Urhzxwl-Ijhgs-Srmts disease): S/p multiple lower extremity procedures, most recently s/p left knee closed reduction total knee arthroplasty subluxation on 02/16/2021 - patient is to remain nonweightbearing of the left lower extremity and limited weightbearing on the right lower extremity Narcotics have been stopped-added Tramadol for relief 05/04: she consistently is asking for pain meds and would like some more tonight. Abnormal Left ankle XR Chronic multiple joint pain, more on the left leg 03/15 x-ray left ankle: A 1.8 cm linear ossific density posterior to the talus may represent an avulsion fracture from the dorsal calcaneus. Clinical correlation will be essential. Orthopedic consulted for left calcaneal superior posterior avulsion fracture status post fall: High tide walking boot removed, replaced with a dorsiflexion splint with a negative relief under the left heel and lambs wool padding to provide essentially neutral support for neutral dorsiflexion of the left ankle and heel and foot. Orthopedic recommending may use the walking boot for transfers or ambulating and wheelchair as necessary. Follow-up with outpatient orthopedics. Dr. Crain, [facility] [place] Per patient request, bilateral ankle x-rays ordered on 04/13 - ordered, unchanged, follow up with Dr. Crain Continues to have LLE discomfort. Evaluated by Favio Ford PA-C today, patient with good ROM but painful. Will have Dr. Layne evaluate later today as well. Considering repeat ankle XR, may benefit from PT/OT if patient desires more frequent ambulation to wheelchair Parkinson disease: Sinemet on hold, cont risperidone Chronic pain: Continue current regimen, minimize escalations in narcotics DVT prophylaxis: SQ Lovenox Disposition:Medically stable; awaiting placement to facility. Admission and Anticipated Discharge Date Admission Date: March 12, 2021 Subjective 76 yo F admitted for recurrent UTI, pneumonia, hallucinations/paranoia. Currently laying in bed, in no acute distress Psychiatric liaison also at the bedside, reports patient had better sleep with Ambien Patient appears comfortable, does not have any new complaints worked with PT yesterday Also seen by Ortho yesterday - did not recommend bilateral ankle MRIs or further imaging at this time Review of Systems Review of Systems: All systems reviewed & are unremarkable except as noted in Subjective Physical Exam Physical Exam: Gen: WD/WN, NAD, l maxime in bed, NAD H EENT: Normocephali c, atraumatic, muc ous membranes mois t Lung: Clear to A uscultation bilate rally but diminish ed. 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 No edema Ski n: Warm and dry Results & Data Results & Data ([facility]) Vital Signs (Past 12 Hours) Vital Signs Temp Pulse Pulse Resp BP Pulse Ox 05/05/21 07:08 36.5 C 63 16 133/76 96 05/04/21 22:27 36.8 C 74 16 137/74 94 05/04/21 21:06 74 168/79 H Medications Administered Current Inpatient Medications Acetaminophen (Acetaminophen 500 Mg Tab) 500 mg PO Q8@0000,0800,1600 [facility] Stop: 05/19/21 15:59 Last Admin: 05/04/21 23:14 Dose: 500 mg Documented by: Albuterol (Albuterol 0.5% Neb Soln 2.5 Mg/0.5 Ml Vial) 2.5 mg NEB Q6R PRN PRN Reason: wheezing, SOB Stop: 05/11/21 17:17 Last Admin: 05/01/21 22:40 Dose: 2.5 mg Documented by: Albuterol (Albut/Ipratrop 3mg/0.5mg Neb 3 Ml Vial) 3 ml NEB Q4R PRN PRN Reason: Shortness Of Breath Or Wheezing Stop: 05/11/21 10:48 Last Admin: 04/25/21 21:12 Dose: 3 ml Documented by: Amlodipine Besylate (Amlodipine Besylate 5 Mg Tab) 5 mg PO QAM [facility] Stop: 05/11/21 12:14 Last Admin: 05/04/21 08:34 Dose: 5 mg Documented by: Aspirin (Aspirin 81 Mg Ectab) 81 mg PO DAILY [facility] Stop: 05/11/21 08:59 Last Admin: 05/04/21 08:34 Dose: 81 mg Documented by: Carbidopa/Levodopa (Carbidopa/Levodopa 25/100mg Tab) 1 tab PO TID [facility] Stop: 05/31/21 13:59 Diclofenac Sodium (Diclofenac Sod 1% Gel 100 Gm Tube) 2 gm EXT Q6 [facility] Stop: 05/11/21 15:29 Last Admin: 05/05/21 05:41 Dose: 2 gm Documented by: Docusate Sodium (Docusate Sodium 100 Mg Cap) 100 mg PO DAILY PRN PRN Reason: Constipation Stop: 05/11/21 16:59 Last Admin: 04/06/21 02:36 Dose: 100 mg Documented by: Ezetimibe (Ezetimibe 10 Mg Tablet) 10 mg PO [facility] Stop: 05/11/21 20:59 Last Admin: 05/04/21 21:10 Dose: 10 mg Documented by: Enoxaparin Sodium (Enoxaparin Inj 40 Mg/0.4 Ml Syr) 40 mg SQ Q24H [facility] Stop: 05/11/21 16:59 Last Admin: 05/04/21 21:08 Dose: 40 mg Documented by: Ferrous Sulfate (Ferrous Sulfate 325 Mg Tab) 325 mg PO DAILY@1100 [facility] Stop: 05/11/21 10:59 Last Admin: 05/04/21 08:34 Dose: 325 mg Documented by: Gabapentin (Gabapentin 100 Mg Cap) 200 mg PO TID [facility] Stop: 05/11/21 20:59 Last Admin: 05/04/21 21:10 Dose: 200 mg Documented by: Lactase (Lactase 3000 Unit Tab) 3,000 units PO AC [facility] Stop: 05/11/21 16:59 Last Admin: 05/04/21 17:27 Dose: 3,000 units Documented by: Lactobacillus Acidoph/Casei/Rhamnos (Advanced Probiotic 1250 Mg Capsule) 2 cap PO DAILY [facility] Stop: 05/11/21 14:29 Last Admin: 05/04/21 08:34 Dose: 2 cap Documented by: Lamotrigine (Lamotrigine 25 Mg Tab) 75 mg PO HS [facility] Stop: 05/11/21 20:59 Last Admin: 05/04/21 21:10 Dose: 75 mg Documented by: Lidocaine (Lidocaine 5% 1 Patch) 1 patch TD DAILY [facility] Stop: 05/11/21 08:59 Last Admin: 05/04/21 11:28 Dose: 1 patch Documented by: Magnesium Oxide (Magnesium Oxide 400 Mg Tab) 400 mg PO BID [facility] Stop: 05/18/21 20:59 Last Admin: 05/04/21 21:09 Dose: 400 mg Documented by: Metoprolol Tartrate (Metoprolol Tartrate 25 Mg Tab) 25 mg PO BID [facility] Stop: 05/17/21 20:24 Last Admin: 05/04/21 21:08 Dose: 25 mg Documented by: Miscellaneous (Remove Lidoderm Patch) 1 ea N/A HS [facility] Stop: 05/11/21 20:59 Last Admin: 05/04/21 21:10 Dose: 1 ea Documented by: Nitroglycerin (Nitroglycerin Sl 0.4 Mg/Tab Tab) 0.4 mg SL PRN PRN PRN Reason: Chest Pain Stop: 05/22/21 21:40 Last Admin: 04/22/21 22:16 Dose: 0.4 mg Documented by: Ondansetron HCl (Ondansetron Inj 2 Mg/Ml 2 Ml Vial) 4 mg IV Q8H PRN PRN Reason: Nausea And Vomiting Stop: 06/01/21 18:12 Last Admin: 05/04/21 09:26 Dose: 4 mg Documented by: Pantoprazole Sodium (Pantoprazole 40 Mg Tab) 40 mg PO DAILY [facility] Stop: 05/11/21 08:59 Last Admin: 05/04/21 08:34 Dose: 40 mg Documented by: Polyethylene Glycol (Polyethylene (Miralax) 17 Gm Pack) 17 gm PO DAILY PRN PRN Reason: Constipation Stop: 05/14/21 04:42 Potassium Chloride (Potassium Chloride 10 Meq Tabcr) 10 meq PO BID [facility] Stop: 05/11/21 20:59 Last Admin: 05/04/21 21:09 Dose: 10 meq Documented by: Risperidone (Risperidone 0.5 Mg Tablet) 0.5 mg PO TODAY@1400 [facility] Stop: 06/01/21 13:59 Last Admin: 05/04/21 13:16 Dose: 0.5 mg Documented by: Senna/Docusate Sodium (Docusate Sodium/Senna 50/8.6mg Tab) 1 tab PO QAM [facility] Stop: 05/14/21 04:44 Last Admin: 05/04/21 08:34 Dose: 1 tab Documented by: Sumatriptan Succinate (Sumatriptan Succinate 25 Mg Tab) 25 mg PO DAILY PRN PRN Reason: Migraine Headache Stop: 05/08/21 10:18 Last Admin: 04/30/21 00:26 Dose: 25 mg Documented by: Tramadol HCl (Tramadol Hcl 50 Mg Tablet) 50 mg PO Q6H PRN PRN Reason: Pain (6-10) Stop: 06/01/21 18:23 Last Admin: 05/04/21 19:34 Dose: 50 mg Documented by:
[2021-05-05] MEDS: FERROUS SULFATE 325 MG TAB PO SCH (11:52)
[2021-05-05] MEDS: risperiDONE 0.5 MG TABLET PO SCH (14:28)
[2021-05-05] MEDS: ENOXAPARIN INJ 40 MG/0.4 ML SYR SQ SCH (21:26)
[2021-05-05] MEDS ORDERED: ZOLPIDEM TARTRATE 5 MG TAB PO STA (21:26)
[2021-05-05] MEDS: lamoTRIgine 25 MG TAB PO SCH (21:27)
[2021-05-05] MEDS: EZETIMIBE 10 MG TABLET PO SCH (21:28)
[2021-05-06] MEDS: DICLOFENAC SOD 1% GEL 100 GM TUBE EXT SCH ×5 (00:55→23:44)
[2021-05-06] MEDS: ACETAMINOPHEN 500 MG TAB PO SCH ×4 (00:55→23:44)
--- NOTE | 2021-05-06 07:24 | Hospitalist Progress Note ---
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 Being managed for the following: Pneumonia Admission CXR - bibasilar infiltration more on the right could be secondary to aspiration versus HCAP Initial lactic acid 3.2---> 1.9, no other signs of sepsis. MRSA screen negative Zosyn 03/12 --> change to Augmentin 03/14 -->Levaquin 03/15 d/t E.cloacae and E. 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 On Ambien. 04/18 - visual and auditory hallucinations, worsening delusions/paranoia. Per psychiatry, tapered Risperdal in favor of trial of Zyprexa 2.5 mg at bedtime. Zyprexa increased to 5 mg at bedtime on 04/22 04/24 - Decrease Zyprexa back to 2.5mg qhs given emergence of side effects (daytime fatigue, flattening of affect and softer speech) at higher dose. May need to consider reducing dopamine agent for Parkinson's to better target psychotic symptoms versus Seroquel trail if symptoms persist on low dose Zyprexa. discussed with psychiatry, stopped Sinemet afternoon dose as it can be driving her psychosis 04/29 - DC zyprexa 05/01-Risperdal had been started 03/24 which was then cross-tapered to Olanzapine which was stopped due to worsening bradykinesia and parkinsonism side effects. Despite understanding that her Sinemet contributes to her paranoia, she would like to have this restarted. 05/02-Sinemet on hold and risperidone restarted. CAUTI:Chronic indwelling Cheng catheter History of recurrent UTIs. Patient overdue for follow-up with urology---> Alexandrea BETANCOURT to arrange for outpatient follow-up for management of her chronic Cheng UA was suggestive of infection, 03/12 urine culture Enterobacter cloacae and E. coli. Completed Levaquin. 04/18 - reports burning at Cheng site Repeat urine culture growing Enterobacter cloacae, multidrug-resistant. On meropenem Unclear if true infection or colonization ID consulted -presence of bacteriuria and pyuria expected with an indwelling catheter and has no specificity for UTI. No systemic s/sx of infection. Consider other alternatives for urinary incontinence care. Stop meropenem and observe for signs directly attributable to her infection and urinary tract before restarting. Family and patient refused for cheng catheter removal. Patient with longstanding overflow incontinence issues. Discussed increased risk for UTIs Replaced on 04/24. She refuses removal as there is an issue with frequent u rinary incontinence and concern for subsequent skin breakdown, will need monthly changes Outpatient follow-up with urology Chest pain - resolved -Developed chest pain on 03/27 and was transferred to [facility] with telemetry -Troponin negative x2, EKG nonischemic -Reproducible on exam, likely musculoskeletal in nature -Another episode of chest pain on 04/06 evening, EKG and troponin unremarkable Chronic Diastolic CHF pt with episode of decompensated CHF while hospitalized, now resolved -Echo 03/21/2021 -EF 55-60%, grade 2 diastolic dysfunction 03/14 CXR: Mild pulmonary edema. Possible small left pleural effusion 03/14 IV dose of Lasix 03/28 IV Lasix x 1 dose euvolemic today, daily weights TIA Patient was a stroke alert overnight (03/20-03/21) Likely TIA - involving the right hemisphere with left facial droop yet on imaging has no evidence for a completed event Head and neck CTA, brain MRI unremarkable for acute findings Neurology consulted, input appreciated Do not have sufficient evidence to recommend adding Plavix to her aspirin but will observe her for recurrent events and if they do enlarge then certainly would add another antiplatelet agent Recommend to continue aspirin 81 mg daily, and 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 Fields CMT (Uealjbw-Vmnlp-Kcjin disease): S/p multiple lower extremity procedures, most recently s/p left knee closed reduction total knee arthroplasty subluxation on 02/16/2021 - patient is to remain nonweightbearing of the left lower extremity and limited weightbearing on the right lower extremity Narcotics have been stopped-added Tramadol for relief 05/04: she consistently is asking for pain meds and would like some more tonight. Abnormal Left ankle XR Chronic multiple joint pain, more on the left leg 03/15 x-ray left ankle: A 1.8 cm linear ossific density posterior to the talus may represent an avulsion fracture from the dorsal calcaneus. Clinical correlation will be essential. Orthopedic consulted for left calcaneal superior posterior avulsion fracture status post fall: High tide walking boot removed, replaced with a dorsiflexion splint with a negative relief under the left heel and lambs wool padding to provide essentially neutral support for neutral dorsiflexion of the left ankle and heel and foot. Orthopedic recommending may use the walking boot for transfers or ambulating and wheelchair as necessary. Follow-up with outpatient orthopedics. Dr. Crain, [facility] [place] Per patient request, bilateral ankle x-rays ordered on 04/13 - ordered, unchanged, follow up with Dr. Crain Continues to have LLE discomfort. Evaluated by Favio Ford PA-C today, patient with good ROM but painful. Will have Dr. Layne evaluate later today as well. Considering repeat ankle XR, may benefit from PT/OT if patient desires more frequent ambulation to wheelchair Parkinson disease: Sinemet on hold, cont risperidone Chronic pain: Continue current regimen, minimize escalations in narcotics DVT prophylaxis: SQ Lovenox Disposition:Medically stable; awaiting placement to facility. Admission and Anticipated Discharge Date Admission Date: March 12, 2021 Subjective 76 yo F admitted for recurrent UTI, pneumonia, hallucinations/paranoia. Currently laying in bed, in no acute distress RN also at the bedside, reports no new issues Patient appears comfortable, does not have any new complaints Review of Systems Review of Systems: All systems reviewed & are unremarkable except as noted in Subjective Physical Exam Physical Exam: Gen: WD/WN, NAD, l maxime in bed, NAD H EENT: Normocephali c, atraumatic, muc ous membranes mois t Lung: Clear to A uscultation bilate rally but diminish ed. 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 No edema Ski n: Warm and dry Results & Data Results & Data ([facility]) Vital Signs (Past 12 Hours) Vital Signs Temp Pulse Pulse Resp BP Pulse Ox 05/05/21 22:03 36.6 C 61 18 156/79 H 97 05/05/21 21:32 67 152/78 H Medications Administered Current Inpatient Medications Acetaminophen (Acetaminophen 500 Mg Tab) 500 mg PO Q8@0000,0800,1600 [facility] Stop: 05/19/21 15:59 Last Admin: 05/06/21 00:55 Dose: 500 mg Documented by: Albuterol (Albuterol 0.5% Neb Soln 2.5 Mg/0.5 Ml Vial) 2.5 mg NEB Q6R PRN PRN Reason: wheezing, SOB Stop: 05/11/21 17:17 Last Admin: 05/01/21 22:40 Dose: 2.5 mg Documented by: Albuterol (Albut/Ipratrop 3mg/0.5mg Neb 3 Ml Vial) 3 ml NEB Q4R PRN PRN Reason: Shortness Of Breath Or Wheezing Stop: 05/11/21 10:48 Last Admin: 04/25/21 21:12 Dose: 3 ml Documented by: Amlodipine Besylate (Amlodipine Besylate 5 Mg Tab) 5 mg PO QAM [facility] Stop: 05/11/21 12:14 Last Admin: 05/05/21 08:16 Dose: 5 mg Documented by: Aspirin (Aspirin 81 Mg Ectab) 81 mg PO DAILY [facility] Stop: 05/11/21 08:59 Last Admin: 05/05/21 08:18 Dose: 81 mg Documented by: Carbidopa/Levodopa (Carbidopa/Levodopa 25/100mg Tab) 1 tab PO TID [facility] Stop: 05/31/21 13:59 Diclofenac Sodium (Diclofenac Sod 1% Gel 100 Gm Tube) 2 gm EXT Q6 [facility] Stop: 05/11/21 15:29 Last Admin: 05/06/21 05:13 Dose: 2 gm Documented by: Docusate Sodium (Docusate Sodium 100 Mg Cap) 100 mg PO DAILY PRN PRN Reason: Constipation Stop: 05/11/21 16:59 Last Admin: 04/06/21 02:36 Dose: 100 mg Documented by: Ezetimibe (Ezetimibe 10 Mg Tablet) 10 mg PO HS [facility] Stop: 05/11/21 20:59 Last Admin: 05/05/21 21:28 Dose: 10 mg Documented by: Enoxaparin Sodium (Enoxaparin Inj 40 Mg/0.4 Ml Syr) 40 mg SQ Q24H [facility] Stop: 05/11/21 16:59 Last Admin: 05/05/21 21:26 Dose: 40 mg Documented by: Ferrous Sulfate (Ferrous Sulfate 325 Mg Tab) 325 mg PO DAILY@1100 [facility] Stop: 05/11/21 10:59 Last Admin: 05/05/21 11:52 Dose: 325 mg Documented by: Gabapentin (Gabapentin 100 Mg Cap) 200 mg PO TID [facility] Stop: 05/11/21 20:59 Last Admin: 05/05/21 21:27 Dose: 200 mg Documented by: Lactase (Lactase 3000 Unit Tab) 3,000 units PO AC [facility] Stop: 05/11/21 16:59 Last Admin: 05/05/21 16:22 Dose: 3,000 units Documented by: Lactobacillus Acidoph/Casei/Rhamnos (Advanced Probiotic 1250 Mg Capsule) 2 cap PO DAILY [facility] Stop: 05/11/21 14:29 Last Admin: 05/05/21 08:17 Dose: 2 cap Documented by: Lamotrigine (Lamotrigine 25 Mg Tab) 75 mg PO HS [facility] Stop: 05/11/21 20:59 Last Admin: 05/05/21 21:27 Dose: 75 mg Documented by: Lidocaine (Lidocaine 5% 1 Patch) 1 patch TD DAILY [facility] Stop: 05/11/21 08:59 Last Admin: 05/05/21 08:18 Dose: 1 patch Documented by: Magnesium Oxide (Magnesium Oxide 400 Mg Tab) 400 mg PO BID [facility] Stop: 05/18/21 20:59 Last Admin: 05/05/21 21:28 Dose: 400 mg Documented by: Metoprolol Tartrate (Metoprolol Tartrate 25 Mg Tab) 25 mg PO BID [facility] Stop: 05/17/21 20:24 Last Admin: 05/05/21 21:33 Dose: 25 mg Documented by: Miscellaneous (Remove Lidoderm Patch) 1 ea N/A HS [facility] Stop: 05/11/21 20:59 Last Admin: 05/05/21 21:28 Dose: 1 ea Documented by: Nitroglycerin (Nitroglycerin Sl 0.4 Mg/Tab Tab) 0.4 mg SL PRN PRN PRN Reason: Chest Pain Stop: 05/22/21 21:40 Last Admin: 04/22/21 22:16 Dose: 0.4 mg Documented by: Ondansetron HCl (Ondansetron Inj 2 Mg/Ml 2 Ml Vial) 4 mg IV Q8H PRN PRN Reason: Nausea And Vomiting Stop: 06/01/21 18:12 Last Admin: 05/04/21 09:26 Dose: 4 mg Documented by: Pantoprazole Sodium (Pantoprazole 40 Mg Tab) 40 mg PO DAILY [facility] Stop: 05/11/21 08:59 Last Admin: 05/05/21 08:17 Dose: 40 mg Documented by: Polyethylene Glycol (Polyethylene (Miralax) 17 Gm Pack) 17 gm PO DAILY PRN PRN Reason: Constipation Stop: 05/14/21 04:42 Potassium Chloride (Potassium Chloride 10 Meq Tabcr) 10 meq PO BID [facility] Stop: 05/11/21 20:59 Last Admin: 05/05/21 21:28 Dose: 10 meq Documented by: Risperidone (Risperidone 0.5 Mg Tablet) 0.5 mg PO TODAY@1400 [facility] Stop: 06/01/21 13:59 Last Admin: 05/05/21 14:28 Dose: 0.5 mg Documented by: Senna/Docusate Sodium (Docusate Sodium/Senna 50/8.6mg Tab) 1 tab PO QAM [facility] Stop: 05/14/21 04:44 Last Admin: 05/05/21 08:16 Dose: 1 tab Documented by: Sumatriptan Succinate (Sumatriptan Succinate 25 Mg Tab) 25 mg PO DAILY PRN PRN Reason: Migraine Headache Stop: 05/08/21 10:18 Last Admin: 04/30/21 00:26 Dose: 25 mg Documented by: Tramadol HCl (Tramadol Hcl 50 Mg Tablet) 50 mg PO Q6H PRN PRN Reason: Pain (6-10) Stop: 06/01/21 18:23 Last Admin: 05/05/21 21:25 Dose: 50 mg Documented by:
[2021-05-06] MEDS: LACTASE 3000 UNIT TAB PO SCH ×3 (07:45→16:01)
[2021-05-06] MEDS: traMADol HCL 50 MG TABLET PO PRN ×2 (09:26→20:25)
[2021-05-06] MEDS: amLODIPine BESYLATE 5 MG TAB PO SCH (09:27)
[2021-05-06] MEDS: LIDOCAINE 5% 1 PATCH TD SCH (09:27)
[2021-05-06] MEDS: DOCUSATE SODIUM/SENNA 50/8.6MG TAB PO SCH (09:27)
[2021-05-06] MEDS: POTASSIUM CHLORIDE 10 MEQ TABCR PO SCH ×2 (09:28→20:27)
[2021-05-06] MEDS: GABAPENTIN 100 MG CAP PO SCH ×3 (09:28→20:27)
[2021-05-06] MEDS: PANTOprazole 40 MG TAB PO SCH (09:28)
[2021-05-06] MEDS: ADVANCED PROBIOTIC 1250 MG CAPSULE PO SCH (09:28)
[2021-05-06] MEDS: METOPROLOL TARTRATE 25 MG TAB PO SCH ×2 (09:29→20:26)
[2021-05-06] MEDS: ASPIRIN 81 MG ECTAB PO SCH (09:29)
[2021-05-06] MEDS: MAGNESIUM OXIDE 400 MG TAB PO SCH ×2 (09:29→20:27)
[2021-05-06] MEDS: FERROUS SULFATE 325 MG TAB PO SCH (12:18)
[2021-05-06] MEDS: risperiDONE 0.5 MG TABLET PO SCH (16:01)
[2021-05-06] MEDS: lamoTRIgine 25 MG TAB PO SCH (20:26)
[2021-05-06] MEDS: ENOXAPARIN INJ 40 MG/0.4 ML SYR SQ SCH (20:26)
[2021-05-06] MEDS: EZETIMIBE 10 MG TABLET PO SCH (20:26)
[2021-05-06] MEDS: ZOLPIDEM TARTRATE 5 MG TAB PO PRN (22:29)
[2021-05-07] MEDS: DICLOFENAC SOD 1% GEL 100 GM TUBE EXT SCH ×4 (05:57→23:40)
[2021-05-07] MEDS: POTASSIUM CHLORIDE 10 MEQ TABCR PO SCH ×2 (08:31→20:13)
[2021-05-07] MEDS: MAGNESIUM OXIDE 400 MG TAB PO SCH ×2 (08:31→20:14)
[2021-05-07] MEDS: GABAPENTIN 100 MG CAP PO SCH ×3 (08:31→20:14)
[2021-05-07] MEDS: LACTASE 3000 UNIT TAB PO SCH ×3 (08:32→17:15)
[2021-05-07] MEDS: ADVANCED PROBIOTIC 1250 MG CAPSULE PO SCH (08:32)
[2021-05-07] MEDS: amLODIPine BESYLATE 5 MG TAB PO SCH (08:32)
[2021-05-07] MEDS: ASPIRIN 81 MG ECTAB PO SCH (08:32)
[2021-05-07] MEDS: METOPROLOL TARTRATE 25 MG TAB PO SCH ×2 (08:35→20:12)
[2021-05-07] MEDS: traMADol HCL 50 MG TABLET PO PRN ×3 (08:35→20:12)
[2021-05-07] MEDS: FERROUS SULFATE 325 MG TAB PO SCH (08:35)
[2021-05-07] MEDS: PANTOprazole 40 MG TAB PO SCH (08:36)
[2021-05-07] MEDS: DOCUSATE SODIUM/SENNA 50/8.6MG TAB PO SCH (08:36)
[2021-05-07] MEDS: LIDOCAINE 5% 1 PATCH TD SCH (08:36)
[2021-05-07] MEDS: ACETAMINOPHEN 500 MG TAB PO SCH ×3 (08:54→23:40)
[2021-05-07] MEDS: risperiDONE 0.5 MG TABLET PO SCH ×2 (13:28→16:52)
[2021-05-07] MEDS: lamoTRIgine 25 MG TAB PO SCH (20:14)
[2021-05-07] MEDS: EZETIMIBE 10 MG TABLET PO SCH (20:15)
[2021-05-07] MEDS: ENOXAPARIN INJ 40 MG/0.4 ML SYR SQ SCH (20:15)
[2021-05-07] MEDS: ZOLPIDEM TARTRATE 5 MG TAB PO PRN (22:02)
[2021-05-08] MEDS: DICLOFENAC SOD 1% GEL 100 GM TUBE EXT SCH ×3 (05:08→17:49)
--- NOTE | 2021-05-08 06:53 | Hospitalist Progress Note ---
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 Being managed for the following: Pneumonia Admission CXR - bibasilar infiltration more on the right could be secondary to aspiration versus HCAP Initial lactic acid 3.2---> 1.9, no other signs of sepsis. MRSA screen negative Zosyn 03/12 --> change to Augmentin 03/14 -->Levaquin 03/15 d/t E.cloacae and E. 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 On Ambien. 04/18 - visual and auditory hallucinations, worsening delusions/paranoia. Per psychiatry, tapered Risperdal in favor of trial of Zyprexa 2.5 mg at bedtime. Zyprexa increased to 5 mg at bedtime on 04/22 04/24 - Decrease Zyprexa back to 2.5mg qhs given emergence of side effects (daytime fatigue, flattening of affect and softer speech) at higher dose. May need to consider reducing dopamine agent for Parkinson's to better target psychotic symptoms versus Seroquel trail if symptoms persist on low dose Zyprexa. discussed with psychiatry, stopped Sinemet afternoon dose as it can be driving her psychosis 04/29 - DC zyprexa 05/01-Risperdal had been started 03/24 which was then cross-tapered to Olanzapine which was stopped due to worsening bradykinesia and parkinsonism side effects. Despite understanding that her Sinemet contributes to her paranoia, she would like to have this restarted. 05/02-Sinemet on hold and risperidone restarted. CAUTI:Chronic indwelling Cheng catheter History of recurrent UTIs. Patient overdue for follow-up with urology---> Alexandrea BETANCOURT to arrange for outpatient follow-up for management of her chronic Cheng UA was suggestive of infection, 03/12 urine culture Enterobacter cloacae and E. coli. Completed Levaquin. 04/18 - reports burning at Cheng site Repeat urine culture growing Enterobacter cloacae, multidrug-resistant. On meropenem Unclear if true infection or colonization ID consulted -presence of bacteriuria and pyuria expected with an indwelling catheter and has no specificity for UTI. No systemic s/sx of infection. Consider other alternatives for urinary incontinence care. Stop meropenem and observe for signs directly attributable to her infection and urinary tract before restarting. Family and patient refused for cheng catheter removal. Patient with longstanding overflow incontinence issues. Discussed increased risk for UTIs Replaced on 04/24. She refuses removal as there is an issue with frequent urinary incontinence and concern for subsequent skin breakdown, will need monthly changes Outpatient follow-up with urology Chest pain - resolved -Developed chest pain on 03/27 and was transferred to [facility] with telemetry -Troponin negative x2, EKG nonischemic -Reproducible on exam, likely musculoskeletal in nature -Another episode of chest pain on 04/06 evening, EKG and troponin unremarkable Chronic Diastolic CHF pt with episode of decompensated CHF while hospitalized, now resolved -Echo 03/21/2021 -EF 55-60%, grade 2 diastolic dysfunction 03/14 CXR: Mild pulmonary edema. Possible small left pleural effusion 03/14 IV dose of Lasix 03/28 IV Lasix x 1 dose euvolemic today, daily weights TIA Patient was a stroke alert overnight (03/20-03/21) Likely TIA - involving the right hemisphere with left facial droop yet on imaging has no evidence for a completed event Head and neck CTA, brain MRI unremarkable for acute findings Neurology consulted, input appreciated Do not have sufficient evidence to recommend adding Plavix to her aspirin but will observe her for recurrent events and if they do enlarge then certainly would add another antiplatelet agent Recommend to continue aspirin 81 mg daily, and 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 Feilds CMT (Bisdmqg-Wmciz-Bhkgf disease): S/p multiple lower extremity procedures, most recently s/p left knee closed reduction total knee arthroplasty subluxation on 02/16/2021 - patient is to remain nonweightbearing of the left lower extremity and limited weightbearing on the right lower extremity Narcotics have been stopped-added Tramadol for relief 05/04: she consistently is asking for pain meds and would like some more tonight. Abnormal Left ankle XR Chronic multiple joint pain, more on the left leg 03/15 x-ray left ankle: A 1.8 cm linear ossific density posterior to the talus may represent an avulsion fracture from the dorsal calcaneus. Clinical correlation will be essential. Orthopedic consulted for left calcaneal superior posterior avulsion fracture status post fall: High tide walking boot removed, replaced with a dorsiflexion splint with a negative relief under the left heel and lambs wool padding to provide essentially neutral support for neutral dorsiflexion of the left ankle and heel and foot. Orthopedic recommending may use the walking boot for transfers or ambulating and wheelchair as necessary. Follow-up with outpatient orthopedics. Dr. Crain, [facility] Per patient request, bilateral ankle x-rays ordered on 04/13 - ordered, unchanged, follow up with Dr. Crain Continues to have LLE discomfort. Evaluated by Favio Ford PA-C today, patient with good ROM but painful. Will have Dr. Layne evaluate later today as well. Considering repeat ankle XR, may benefit from PT/OT if patient desires more frequent ambulation to wheelchair Parkinson disease: Sinemet on hold, cont risperidone Chronic pain: Continue current regimen, minimize escalations in narcotics DVT prophylaxis: SQ Lovenox Disposition:Medically stable; awaiting placement to facility. Admission and Anticipated Discharge Date Admission Date: March 12, 2021 Subjective 76 yo F admitted for recurrent UTI, pneumonia, hallucinations/paranoia. Currently sitting up in bed and eating, in no acute distress Patient appears comfortable, does not have any new complaints, has chronic hand and ankle pain (joint pain) Review of Systems Review of Systems: All systems reviewed & are unremarkable except as noted in Subjective Physical Exam Physical Exam: Gen: WD/WN, NAD HE ENT: Normocephalic , atraumatic, muco us membranes moist Lung: Clear to Au scultation bilater ally but diminishe d. No wheezes/rale s/rhonchi Heart: R egular rate, regul ar rhythm, no murm urs, rubs, or gall ops Abdomen: Soft, NT, ND : Cheng Extremities: Chron ic weakness, LLE w rap in place, cont ractures of left h and. No edema Skin : Warm and dry Results & Data Results & Data ([facility]) Vital Signs (Past 12 Hours) Vital Signs Temp Pulse Resp BP Pulse Ox 05/07/21 22:04 36.8 C 71 18 155/81 H 95 Medications Administered Current Inpatient Medications Acetaminophen (Acetaminophen 500 Mg Tab) 500 mg PO Q8@0000,0800,1600 [facility] Stop: 05/19/21 15:59 Last Admin: 05/07/21 23:40 Dose: 500 mg Documented by: Albuterol (Albuterol 0.5% Neb Soln 2.5 Mg/0.5 Ml Vial) 2.5 mg NEB Q6R PRN PRN Reason: wheezing, SOB Stop: 05/11/21 17:17 Last Admin: 05/01/21 22:40 Dose: 2.5 mg Documented by: Albuterol (Albut/Ipratrop 3mg/0.5mg Neb 3 Ml Vial) 3 ml NEB Q4R PRN PRN Reason: Shortness Of Breath Or Wheezing Stop: 05/11/21 10:48 Last Admin: 04/25/21 21:12 Dose: 3 ml Documented by: Amlodipine Besylate (Amlodipine Besylate 5 Mg Tab) 5 mg PO QAM [facility] Stop: 05/11/21 12:14 Last Admin: 05/07/21 08:32 Dose: 5 mg Documented by: Aspirin (Aspirin 81 Mg Ectab) 81 mg PO DAILY [facility] Stop: 05/11/21 08:59 Last Admin: 05/07/21 08:32 Dose: 81 mg Documented by: Carbidopa/Levodopa (Carbidopa/Levodopa 25/100mg Tab) 1 tab PO TID [facility] Stop: 05/31/21 13:59 Diclofenac Sodium (Diclofenac Sod 1% Gel 100 Gm Tube) 2 gm EXT Q6 [facility] Stop: 05/11/21 15:29 Last Admin: 05/08/21 05:08 Dose: Not Given Documented by: Docusate Sodium (Docusate Sodium 100 Mg Cap) 100 mg PO DAILY PRN PRN Reason: Constipation Stop: 05/11/21 16:59 Last Admin: 04/06/21 02:36 Dose: 100 mg Documented by: Ezetimibe (Ezetimibe 10 Mg Tablet) 10 mg PO HS [facility] Stop: 05/11/21 20:59 Last Admin: 05/07/21 20:15 Dose: 10 mg Documented by: Enoxaparin Sodium (Enoxaparin Inj 40 Mg/0.4 Ml Syr) 40 mg SQ Q24H [facility] Stop: 05/11/21 16:59 Last Admin: 05/07/21 20:15 Dose: 40 mg Documented by: Ferrous Sulfate (Ferrous Sulfate 325 Mg Tab) 325 mg PO DAILY@1100 [facility] Stop: 05/11/21 10:59 Last Admin: 05/07/21 08:35 Dose: 325 mg Documented by: Gabapentin (Gabapentin 100 Mg Cap) 200 mg PO TID [facility] Stop: 05/11/21 20:59 Last Admin: 05/07/21 20:14 Dose: 200 mg Documented by: Lactase (Lactase 3000 Unit Tab) 3,000 units PO AC [facility] Stop: 05/11/21 16:59 Last Admin: 05/07/21 17:15 Dose: 3,000 units Documented by: Lactobacillus Acidoph/Casei/Rhamnos (Advanced Probiotic 1250 Mg Capsule) 2 cap PO DAILY [facility] Stop: 05/11/21 14:29 Last Admin: 05/07/21 08:32 Dose: 2 cap Documented by: Lamotrigine (Lamotrigine 25 Mg Tab) 75 mg PO HS [facility] Stop: 05/11/21 20:59 Last Admin: 05/07/21 20:14 Dose: 75 mg Documented by: Lidocaine (Lidocaine 5% 1 Patch) 1 patch TD DAILY [facility] Stop: 05/11/21 08:59 Last Admin: 05/07/21 08:36 Dose: 1 patch Documented by: Magnesium Oxide (Magnesium Oxide 400 Mg Tab) 400 mg PO BID [facility] Stop: 05/18/21 20:59 Last Admin: 05/07/21 20:14 Dose: 400 mg Documented by: Metoprolol Tartrate (Metoprolol Tartrate 25 Mg Tab) 25 mg PO BID [facility] Stop: 05/17/21 20:24 Last Admin: 05/07/21 20:12 Dose: 25 mg Documented by: Miscellaneous (Remove Lidoderm Patch) 1 ea N/A HS [facility] Stop: 05/11/21 20:59 Last Admin: 05/07/21 20:20 Dose: 1 ea Documented by: Nitroglycerin (Nitroglycerin Sl 0.4 Mg/Tab Tab) 0.4 mg SL PRN PRN PRN Reason: Chest Pain Stop: 05/22/21 21:40 Last Admin: 04/22/21 22:16 Dose: 0.4 mg Documented by: Ondansetron HCl (Ondansetron Inj 2 Mg/Ml 2 Ml Vial) 4 mg IV Q8H PRN PRN Reason: Nausea And Vomiting Stop: 06/01/21 18:12 Last Admin: 05/04/21 09:26 Dose: 4 mg Documented by: Pantoprazole Sodium (Pantoprazole 40 Mg Tab) 40 mg PO DAILY [facility] Stop: 05/11/21 08:59 Last Admin: 05/07/21 08:36 Dose: 40 mg Documented by: Polyethylene Glycol (Polyethylene (Miralax) 17 Gm Pack) 17 gm PO DAILY PRN PRN Reason: Constipation Stop: 05/14/21 04:42 Potassium Chloride (Potassium Chloride 10 Meq Tabcr) 10 meq PO BID [facility] Stop: 05/11/21 20:59 Last Admin: 05/07/21 20:13 Dose: 10 meq Documented by: Risperidone (Risperidone 0.5 Mg Tablet) 0.5 mg PO TODAY@1400 [facility] Stop: 06/01/21 13:59 Last Admin: 05/07/21 16:52 Dose: 0.5 mg Documented by: Senna/Docusate Sodium (Docusate Sodium/Senna 50/8.6mg Tab) 1 tab PO QAM [facility] Stop: 05/14/21 04:44 Last Admin: 05/07/21 08:36 Dose: 1 tab Documented by: Sumatriptan Succinate (Sumatriptan Succinate 25 Mg Tab) 25 mg PO DAILY PRN PRN Reason: Migraine Headache Stop: 05/08/21 10:18 Last Admin: 04/30/21 00:26 Dose: 25 mg Documented by: Tramadol HCl (Tramadol Hcl 50 Mg Tablet) 50 mg PO Q6H PRN PRN Reason: Pain (6-10) Stop: 06/01/21 18:23 Last Admin: 05/07/21 20:12 Dose: 50 mg Documented by: Zolpidem Tartrate (Zolpidem Tartrate 5 Mg Tab) 5 mg PO HS PRN PRN Reason: Sleep Stop: 06/05/21 21:55 Last Admin: 05/07/21 22:02 Dose: 5 mg Documented by:
[2021-05-08] MEDS: LIDOCAINE 5% 1 PATCH TD SCH (07:54)
[2021-05-08] MEDS: DOCUSATE SODIUM/SENNA 50/8.6MG TAB PO SCH (07:56)
[2021-05-08] MEDS: GABAPENTIN 100 MG CAP PO SCH ×3 (07:56→21:57)
[2021-05-08] MEDS: MAGNESIUM OXIDE 400 MG TAB PO SCH ×2 (07:57→22:00)
[2021-05-08] MEDS: METOPROLOL TARTRATE 25 MG TAB PO SCH ×2 (07:57→21:59)
[2021-05-08] MEDS: ASPIRIN 81 MG ECTAB PO SCH (07:57)
[2021-05-08] MEDS: POTASSIUM CHLORIDE 10 MEQ TABCR PO SCH ×2 (07:57→22:00)
[2021-05-08] MEDS: ADVANCED PROBIOTIC 1250 MG CAPSULE PO SCH (07:57)
[2021-05-08] MEDS: amLODIPine BESYLATE 5 MG TAB PO SCH (07:57)
[2021-05-08] MEDS: PANTOprazole 40 MG TAB PO SCH (07:57)
[2021-05-08] MEDS: ACETAMINOPHEN 500 MG TAB PO SCH ×2 (08:03→16:43)
[2021-05-08] MEDS: POLYETHYLENE (MIRALAX) 17 GM PACK PO PRN (09:30)
[2021-05-08] MEDS: traMADol HCL 50 MG TABLET PO PRN ×2 (09:30→19:16)
[2021-05-08] MEDS: LACTASE 3000 UNIT TAB PO SCH ×3 (10:08→16:43)
[2021-05-08] MEDS: FERROUS SULFATE 325 MG TAB PO SCH (11:34)
--- NOTE | 2021-05-08 11:50 | Psychiatric Progress Note ---
Date of Service May 08, 2021 Impression / Recommendations Impression 76 yo female with history of paranoid ideations related to cognitive decline admitted for superimposed delirium resulting in worsening hallucinations and delusions. Started Risperdal 03/24/21 which was then cross-tapered to olanzapine due to worsening bradykinesia and parkinsonism side effects. This was then tapered back to risperidone per her request and limited benefit from olanzapine for paranoia and delusions. 05/08/21: improvement in delusions/paranoia on risperidone, continues to be focused on somatic concerns including chronic pain which is furthered challenged by length of hospitalization and limited opportunities for engagement/other activities/distractions to help with coping. No evidence for significant side effects with Risperdal, Cehn's voice was softer today and affect a bit flatter but she had recently received dose of tramadol as per psych liason she appeared brighter and more energetic yesterday. 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 Maxwell is a 76 yo female from [place], admitted on 03/16/21 for pneumonia and UTI. [facility]. Chief Complaint "my knee hurts". Review of Systems Notes see subjective Subjective Subjective Patient was seen & assessed and interval progress reviewed. Today Chen reports left knee pain for which she is requesting a workup with an MRI. Empathized with her pain, she had recently received tramadol and was not yet eligible for more pain medication. She was able to discuss the cold weather with me and that her planned to go grocery shopping and to get a haircut today. She expressed some worries about him having to wait in long lines at the store due to the cold. She denies any difficulty with movement of her upper body. She reports some drooling and is holding a tissue but no sialorrhea appreciated on exam. She reported poor sleep due to knee pain. She continues to feel that the risperidone is helpful and prefers this to olanzapine. Physical Exam Psychiatric Orientation: alert, oriented x 3 and cooperative Apperance: appropriately dressed and appropriately groomed Eye Contact: good eye contact Motor Behavior: n EPS Speech: + abnormal rate/rhythm/volume of speech Affect: + constricted affect Mood: + anxious mood Thought Process: + perseveration Thought Content: reality based without delusions Suicidal Thoughts: denies suicidal thoughts Homicidal Thoughts: denies homicidal thoughts Hallucinations: no auditory hallucinations and no visual hallucinations Cognition: recent memory grossly intact, remote memory grossly intact, attention grossly intact and language grossly intact Estimated Intelligence: consistent with education level Insight: + impaired insight Judgement: + impaired judgement Vital Signs (Past 24 Hours) Last Vital Signs Temp 36.8 C 05/08/21 07:17 Pulse 66 05/08/21 07:17 Resp 18 05/08/21 07:17 BP 135/79 05/08/21 07:17 Pulse Ox 97 05/08/21 07:17 Results & Data ([facility]) Current Inpatient Medications Current Inpatient Medications: Current Inpatient Medications Acetaminophen (Acetaminophen 500 Mg Tab) 500 mg PO Q8@0000,0800,1600 [facility] Stop: 05/19/21 15:59 Last Admin: 05/08/21 08:03 Dose: 500 mg Documented by: Albuterol (Albuterol 0.5% Neb Soln 2.5 Mg/0.5 Ml Vial) 2.5 mg NEB Q6R PRN PRN Reason: wheezing, SOB Stop: 05/11/21 17:17 Last Admin: 05/01/21 22:40 Dose: 2.5 mg Documented by: Albuterol (Albut/Ipratrop 3mg/0.5mg Neb 3 Ml Vial) 3 ml NEB Q4R PRN PRN Reason: Shortness Of Breath Or Wheezing Stop: 05/11/21 10:48 Last Admin: 04/25/21 21:12 Dose: 3 ml Documented by: Amlodipine Besylate (Amlodipine Besylate 5 Mg Tab) 5 mg PO QAM [facility] Stop: 05/11/21 12:14 Last Admin: 05/08/21 07:57 Dose: 5 mg Documented by: Aspirin (Aspirin 81 Mg Ectab) 81 mg PO DAILY [facility] Stop: 05/11/21 08:59 Last Admin: 05/08/21 07:57 Dose: 81 mg Documented by: Carbidopa/Levodopa (Carbidopa/Levodopa 25/100mg Tab) 1 tab PO TID [facility] Stop: 05/31/21 13:59 Diclofenac Sodium (Diclofenac Sod 1% Gel 100 Gm Tube) 2 gm EXT Q6 [facility] Stop: 05/11/21 15:29 Last Admin: 05/08/21 11:34 Dose: 2 gm Documented by: Docusate Sodium (Docusate Sodium 100 Mg Cap) 100 mg PO DAILY PRN PRN Reason: Constipation Stop: 05/11/21 16:59 Last Admin: 04/06/21 02:36 Dose: 100 mg Documented by: Ezetimibe (Ezetimibe 10 Mg Tablet) 10 mg PO HS [facility] Stop: 05/11/21 20:59 Last Admin: 05/07/21 20:15 Dose: 10 mg Documented by: Enoxaparin Sodium (Enoxaparin Inj 40 Mg/0.4 Ml Syr) 40 mg SQ Q24H [facility] Stop: 05/11/21 16:59 Last Admin: 05/07/21 20:15 Dose: 40 mg Documented by: Ferrous Sulfate (Ferrous Sulfate 325 Mg Tab) 325 mg PO DAILY@1100 [facility] Stop: 05/11/21 10:59 Last Admin: 05/08/21 11:34 Dose: 325 mg Documented by: Gabapentin (Gabapentin 100 Mg Cap) 200 mg PO TID [facility] Stop: 05/11/21 20:59 Last Admin: 05/08/21 07:56 Dose: 200 mg Documented by: Lactase (Lactase 3000 Unit Tab) 3,000 units PO AC [facility] Stop: 05/11/21 16:59 Last Admin: 05/08/21 11:34 Dose: 3,000 units Documented by: Lactobacillus Acidoph/Casei/Rhamnos (Advanced Probiotic 1250 Mg Capsule) 2 cap PO DAILY [facility] Stop: 05/11/21 14:29 Last Admin: 05/08/21 07:57 Dose: 2 cap Documented by: Lamotrigine (Lamotrigine 25 Mg Tab) 75 mg PO HS [facility] Stop: 05/11/21 20:59 Last Admin: 05/07/21 20:14 Dose: 75 mg Documented by: Lidocaine (Lidocaine 5% 1 Patch) 1 patch TD DAILY [facility] Stop: 05/11/21 08:59 Last Admin: 05/08/21 07:54 Dose: 1 patch Documented by: Magnesium Oxide (Magnesium Oxide 400 Mg Tab) 400 mg PO BID [facility] Stop: 05/18/21 20:59 Last Admin: 05/08/21 07:57 Dose: 400 mg Documented by: Metoprolol Tartrate (Metoprolol Tartrate 25 Mg Tab) 25 mg PO BID [facility] Stop: 05/17/21 20:24 Last Admin: 05/08/21 07:57 Dose: 25 mg Documented by: Miscellaneous (Remove Lidoderm Patch) 1 ea N/A HS [facility] Stop: 05/11/21 20:59 Last Admin: 05/07/21 20:20 Dose: 1 ea Documented by: Nitroglycerin (Nitroglycerin Sl 0.4 Mg/Tab Tab) 0.4 mg SL PRN PRN PRN Reason: Chest Pain Stop: 05/22/21 21:40 Last Admin: 04/22/21 22:16 Dose: 0.4 mg Documented by: Ondansetron HCl (Ondansetron Inj 2 Mg/Ml 2 Ml Vial) 4 mg IV Q8H PRN PRN Reason: Nausea And Vomiting Stop: 06/01/21 18:12 Last Admin: 05/04/21 09:26 Dose: 4 mg Documented by: Pantoprazole Sodium (Pantoprazole 40 Mg Tab) 40 mg PO DAILY [facility] Stop: 05/11/21 08:59 Last Admin: 05/08/21 07:57 Dose: 40 mg Documented by: Polyethylene Glycol (Polyethylene (Miralax) 17 Gm Pack) 17 gm PO DAILY PRN PRN Reason: Constipation Stop: 05/14/21 04:42 Last Admin: 05/08/21 09:30 Dose: 17 gm Documented by: Potassium Chloride (Potassium Chloride 10 Meq Tabcr) 10 meq PO BID [facility] Stop: 05/11/21 20:59 Last Admin: 05/08/21 07:57 Dose: 10 meq Documented by: Risperidone (Risperidone 0.5 Mg Tablet) 0.5 mg PO TODAY@1400 [facility] Stop: 06/01/21 13:59 Last Admin: 05/07/21 16:52 Dose: 0.5 mg Documented by: Senna/Docusate Sodium (Docusate Sodium/Senna 50/8.6mg Tab) 1 tab PO QAM [facility] Stop: 05/14/21 04:44 Last Admin: 05/08/21 07:56 Dose: 1 tab Documented by: Tramadol HCl (Tramadol Hcl 50 Mg Tablet) 50 mg PO Q6H PRN PRN Reason: Pain (6-10) Stop: 06/01/21 18:23 Last Admin: 05/08/21 09:30 Dose: 50 mg Documented by: Zolpidem Tartrate (Zolpidem Tartrate 5 Mg Tab) 5 mg PO HS PRN PRN Reason: Sleep Stop: 06/05/21 21:55 Last Admin: 05/07/21 22:02 Dose: 5 mg Documented by:
[2021-05-08] MEDS: risperiDONE 0.5 MG TABLET PO SCH (14:04)
[2021-05-08] MEDS: ENOXAPARIN INJ 40 MG/0.4 ML SYR SQ SCH (21:56)
[2021-05-08] MEDS: lamoTRIgine 25 MG TAB PO SCH (21:57)
[2021-05-08] MEDS: EZETIMIBE 10 MG TABLET PO SCH (21:57)
[2021-05-08] MEDS: ZOLPIDEM TARTRATE 5 MG TAB PO PRN (21:59)
[2021-05-09] MEDS: DICLOFENAC SOD 1% GEL 100 GM TUBE EXT SCH ×5 (00:35→23:59)
[2021-05-09] MEDS: ACETAMINOPHEN 500 MG TAB PO SCH ×4 (00:35→23:59)
[2021-05-09] MEDS: GABAPENTIN 100 MG CAP PO SCH ×3 (07:46→21:50)
[2021-05-09] MEDS: LACTASE 3000 UNIT TAB PO SCH ×3 (07:46→16:47)
[2021-05-09] MEDS: amLODIPine BESYLATE 5 MG TAB PO SCH (07:47)
[2021-05-09] MEDS: PANTOprazole 40 MG TAB PO SCH (07:47)
[2021-05-09] MEDS: ADVANCED PROBIOTIC 1250 MG CAPSULE PO SCH (07:47)
[2021-05-09] MEDS: ASPIRIN 81 MG ECTAB PO SCH (07:47)
[2021-05-09] MEDS: METOPROLOL TARTRATE 25 MG TAB PO SCH ×2 (07:47→21:50)
[2021-05-09] MEDS: LIDOCAINE 5% 1 PATCH TD SCH (07:48)
[2021-05-09] MEDS: POTASSIUM CHLORIDE 10 MEQ TABCR PO SCH ×2 (07:48→21:51)
[2021-05-09] MEDS: MAGNESIUM OXIDE 400 MG TAB PO SCH ×2 (07:48→21:50)
[2021-05-09] MEDS: DOCUSATE SODIUM/SENNA 50/8.6MG TAB PO SCH (07:48)
[2021-05-09] MEDS: FERROUS SULFATE 325 MG TAB PO SCH (11:26)
[2021-05-09] MEDS: risperiDONE 0.5 MG TABLET PO SCH (15:10)
[2021-05-09] MEDS: traMADol HCL 50 MG TABLET PO PRN (19:57)
[2021-05-09] MEDS: lamoTRIgine 25 MG TAB PO SCH (21:49)
[2021-05-09] MEDS: ZOLPIDEM TARTRATE 5 MG TAB PO PRN (21:50)
[2021-05-09] MEDS: EZETIMIBE 10 MG TABLET PO SCH (21:51)
[2021-05-09] MEDS: ENOXAPARIN INJ 40 MG/0.4 ML SYR SQ SCH (21:51)
--- NOTE | 2021-05-09 23:47 | Hospitalist Progress Note ---
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 Being managed for the following: Pneumonia Admission CXR - bibasilar infiltration more on the right could be secondary to aspiration versus HCAP Initial lactic acid 3.2---> 1.9, no other signs of sepsis. MRSA screen negative Zosyn 03/12 --> change to Augmentin 03/14 -->Levaquin 03/15 d/t E.cloacae and E. 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 On Ambien. 04/18 - visual and auditory hallucinations, worsening delusions/paranoia. Per psychiatry, tapered Risperdal in favor of trial of Zyprexa 2.5 mg at bedtime. Zyprexa increased to 5 mg at bedtime on 04/22 04/24 - Decrease Zyprexa back to 2.5mg qhs given emergence of side effects (daytime fatigue, flattening of affect and softer speech) at higher dose. May need to consider reducing dopamine agent for Parkinson's to better target psychotic symptoms versus Seroquel trail if symptoms persist on low dose Zyprexa. discussed with psychiatry, stopped Sinemet afternoon dose as it can be driving her psychosis 04/29 - DC zyprexa 05/01-Risperdal had been started 03/24 which was then cross-tapered to Olanzapine which was stopped due to worsening bradykinesia and parkinsonism side effects. Despite understanding that her Sinemet contributes to her paranoia, she would like to have this restarted. 05/02-Sinemet on hold and risperidone restarted. CAUTI:Chronic indwelling Cheng catheter History of recurrent UTIs. Patient overdue for follow-up with urology---> Alexandrea BETANCOURT to arrange for outpatient follow-up for management of her chronic Cheng UA was suggestive of infection, 03/12 urine culture Enterobacter cloacae and E. coli. Completed Levaquin. 04/18 - reports burning at Cheng site Repeat urine culture growing Enterobacter cloacae, multidrug-resistant. On meropenem Unclear if true infection or colonization ID consulted -presence of bacteriuria and pyuria expected with an indwelling catheter and has no specificity for UTI. No systemic s/sx of infection. Consider other alternatives for urinary incontinence care. Stop meropenem and observe for signs directly attributable to her infection and urinary tract before restarting. Family and patient refused for cheng catheter removal. Patient with longstanding overflow incontinence issues. Discussed increased risk for UTIs Replaced on 04/24. She refuses removal as there is an issue with frequent urinary incontinence and concern for subsequent skin breakdown, will need monthly changes Outpatient follow-up with urology Chest pain - resolved -Developed chest pain on 03/27 and was transferred to [facility] with telemetry -Troponin negative x2, EKG nonischemic -Reproducible on exam, likely musculoskeletal in nature -Another episode of chest pain on 04/06 evening, EKG and troponin unremarkable Chronic Diastolic CHF pt with episode of decompensated CHF while hospitalized, now resolved -Echo 03/21/2021 -EF 55-60%, grade 2 diastolic dysfunction 03/14 CXR: Mild pulmonary edema. Possible small left pleural effusion 03/14 IV dose of Lasix 03/28 IV Lasix x 1 dose euvolemic today, daily weights TIA Patient was a stroke alert overnight (03/20-03/21) Likely TIA - involving the right hemisphere with left facial droop yet on imaging has no evidence for a completed event Head and neck CTA, brain MRI unremarkable for acute findings Neurology consulted, input appreciated Do not have sufficient evidence to recommend adding Plavix to her aspirin but will observe her for recurrent events and if they do enlarge then certainly would add another antiplatelet agent Recommend to continue aspirin 81 mg daily, and 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 Fields CMT (Eghvsvc-Ifmrw-Zxjbr disease): S/p multiple lower extremity procedures, most recently s/p left knee closed reduction total knee arthroplasty subluxation on 02/16/2021 - patient is to remain nonweightbearing of the left lower extremity and limited weightbearing on the right lower extremity Narcotics have been stopped-added Tramadol for relief 05/04: she consistently is asking for pain meds and would like some more tonight. Abnormal Left ankle XR Chronic multiple joint pain, more on the left leg 03/15 x-ray left ankle: A 1.8 cm linear ossific density posterior to the talus may represent an avulsion fracture from the dorsal calcaneus. Clinical correlation will be essential. Orthopedic consulted for left calcaneal superior posterior avulsion fracture status post fall: High tide walking boot removed, replaced with a dorsiflexion splint with a negative relief under the left heel and lambs wool padding to provide essentially neutral support for neutral dorsiflexion of the left ankle and heel and foot. Orthopedic recommending may use the walking boot for transfers or ambulating and wheelchair as necessary. Follow-up with outpatient orthopedics. Dr. Crain, [facility] [place] Per [place] request, bilateral ankle x-rays ordered on 04/13 - ordered, unchanged, follow up with Dr. Crain Continues to have LLE discomfort. Evaluated by Favio Ford PA-C today, patient with good ROM but painful. Will have Dr. Layne evaluate later today as well. Considering repeat ankle XR, may benefit from PT/OT if patient desires more frequent ambulation to wheelchair Parkinson disease: Sinemet on hold, cont risperidone Chronic pain: Continue current regimen, minimize escalations in narcotics DVT prophylaxis: SQ Lovenox Disposition:Medically stable; awaiting placement to facility. Admission and Anticipated Discharge Date Admission Date: March 12, 2021 Subjective Pt was seen and examined for follow up of pain and hallucination Lying in bed complaint of pain in her left knee Denies any chest pain, palpitation, dizziness and SOB Review of Systems Review of Systems: All systems reviewed & are unremarkable except as noted in Subjective Physical Exam Physical Exam: General- No acute distress Head- atraumatic Eyes- PERRL, EOMI, ENT- oropharynx clear Neck- supple, no JVD Lungs- clear to auscultation Heart- regular rhythm; no murmur Abdomen- normal bowel sounds, soft, nontender Extremities- no calf tenderness, left knee pain Neuro- alert, oriented x 3; PERRL, EOMI; no facial palsy; no dysarthria Skin- warm & dry Results & Data Results & Data ([facility]) Vital Signs (Past 12 Hours) Vital Signs Temp Pulse Pulse Resp BP Pulse Ox 05/09/21 21:48 37.3 C 76 16 138/81 95 05/09/21 16:39 37.0 C 75 14 158/73 H 95
[2021-05-10] MEDS: DICLOFENAC SOD 1% GEL 100 GM TUBE EXT SCH ×4 (05:32→22:29)
[2021-05-10] MEDS: traMADol HCL 50 MG TABLET PO PRN ×2 (08:15→14:23)
[2021-05-10] MEDS: ACETAMINOPHEN 500 MG TAB PO SCH ×3 (08:15→22:26)
[2021-05-10] MEDS: LACTASE 3000 UNIT TAB PO SCH ×3 (08:16→16:35)
[2021-05-10] MEDS: ADVANCED PROBIOTIC 1250 MG CAPSULE PO SCH (08:16)
[2021-05-10] MEDS: ASPIRIN 81 MG ECTAB PO SCH (08:23)
[2021-05-10] MEDS: POTASSIUM CHLORIDE 10 MEQ TABCR PO SCH ×2 (08:24→21:06)
[2021-05-10] MEDS: amLODIPine BESYLATE 5 MG TAB PO SCH (08:24)
[2021-05-10] MEDS: MAGNESIUM OXIDE 400 MG TAB PO SCH ×2 (08:24→21:08)
[2021-05-10] MEDS: GABAPENTIN 100 MG CAP PO SCH ×3 (08:25→21:07)
[2021-05-10] MEDS: DOCUSATE SODIUM/SENNA 50/8.6MG TAB PO SCH (08:25)
[2021-05-10] MEDS: LIDOCAINE 5% 1 PATCH TD SCH (08:26)
[2021-05-10] MEDS: METOPROLOL TARTRATE 25 MG TAB PO SCH ×2 (08:27→21:06)
[2021-05-10] MEDS: PANTOprazole 40 MG TAB PO SCH (08:27)
[2021-05-10] MEDS: FERROUS SULFATE 325 MG TAB PO SCH (11:58)
[2021-05-10] MEDS: risperiDONE 0.5 MG TABLET PO SCH (14:18)
[2021-05-10] MEDS: EZETIMIBE 10 MG TABLET PO SCH (21:07)
[2021-05-10] MEDS: lamoTRIgine 25 MG TAB PO SCH (21:08)
[2021-05-10] MEDS: ENOXAPARIN INJ 40 MG/0.4 ML SYR SQ SCH (21:08)
[2021-05-10] MEDS: ZOLPIDEM TARTRATE 5 MG TAB PO PRN (22:27)
--- NOTE | 2021-05-10 23:16 | Hospitalist Progress Note ---
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 Being managed for the following: Pneumonia Admission CXR - bibasilar infiltration more on the right could be secondary to aspiration versus HCAP Initial lactic acid 3.2---> 1.9, no other signs of sepsis. MRSA screen negative Zosyn 03/12 --> change to Augmentin 03/14 -->Levaquin 03/15 d/t E.cloacae and E. 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 On Ambien. 04/18 - visual and auditory hallucinations, worsening delusions/paranoia. Per psychiatry, tapered Risperdal in favor of trial of Zyprexa 2.5 mg at bedtime. Zyprexa increased to 5 mg at bedtime on 04/22 04/24 - Decrease Zyprexa back to 2.5mg qhs given emergence of side effects (daytime fatigue, flattening of affect and softer speech) at higher dose. May need to consider reducing dopamine agent for Parkinson's to better target psychotic symptoms versus Seroquel trail if symptoms persist on low dose Zyprexa. discussed with psychiatry, stopped Sinemet afternoon dose as it can be driving her psychosis 04/29 - DC zyprexa 05/01-Risperdal had been started 03/24 which was then cross-tapered to Olanzapine which was stopped due to worsening bradykinesia and parkinsonism side effects. Despite understanding that her Sinemet contributes to her paranoia, she would like to have this restarted. 05/02-Sinemet on hold and risperidone restarted. 05/10/21 Case discussed with psych that recommended to continue current therapy Stable CAUTI:Chronic indwelling Cheng catheter History of recurrent UTIs. Patient overdue for follow-up with urology---> Alexandrea BETANCOURT to arrange for outpatient follow-up for management of her chronic Cheng UA was suggestive of infection, 03/12 urine culture Enterobacter cloacae and E. coli. Completed Levaquin. 04/18 - reports burning at Cheng site Repeat urine culture growing Enterobacter cloacae, multidrug-resistant. On meropenem Unclear if true infection or colonization ID consulted -presence of bacteriuria and pyuria expected with an indwelling catheter and has no specificity for UTI. No systemic s/sx of infection. Consider other alternatives for urinary incontinence care. Stop meropenem and observe for signs directly attributable to her infection and urinary tract before restarting. Family and patient refused for cheng catheter removal. Patient with longstanding overflow incontinence issues. Discussed increased risk for UTIs Replaced on 04/24. She refuses removal as there is an issue with frequent urinary incontinence and concern for subsequent skin breakdown, will need monthly changes Outpatient follow-up with urology Chest pain - resolved -Developed chest pain on 03/27 and was transferred to [facility] with telemetry -Troponin negative x2, EKG nonischemic -Reproducible on exam, likely musculoskeletal in nature -Another episode of chest pain on 04/06 evening, EKG and troponin unremarkable Chronic Diastolic CHF pt with episode of decompensated CHF while hospitalized, now resolved -Echo 03/21/2021 -EF 55-60%, grade 2 diastolic dysfunction 03/14 CXR: Mild pulmonary edema. Possible small left pleural effusion 03/14 IV dose of Lasix 03/28 IV Lasix x 1 dose euvolemic today, daily weights TIA Patient was a stroke alert overnight (03/20-03/21) Likely TIA - involving the right hemisphere with left facial droop yet on imaging has no evidence for a completed event Head and neck CTA, brain MRI unremarkable for acute findings Neurology consulted, input appreciated Do not have sufficient evidence to recommend adding Plavix to her aspirin but will observe her for recurrent events and if they do enlarge then certainly would add another antiplatelet agent Recommend to continue aspirin 81 mg daily, and 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 Fields CMT (Xilbsrl-Aicvw-Ujsat disease): S/p multiple lower extremity procedures, most recently s/p left knee closed reduction total knee arthroplasty subluxation on 02/16/2021 - patient is to remain nonweightbearing of the left lower extremity and limited weightbearing on the right lower extremity Narcotics have been stopped-added Tramadol for relief 05/04: she consistently is asking for pain meds and would like some more tonight. Abnormal Left ankle XR Chronic multiple joint pain, more on the left leg 03/15 x-ray left ankle: A 1.8 cm linear ossific density posterior to the talus may represent an avulsion fracture from the dorsal calcaneus. Clinical correlation will be essential. Orthopedic consulted for left calcaneal superior posterior avulsion fracture status post fall: High tide walking boot removed, replaced with a dorsiflexion splint with a negative relief under the left heel and lambs wool padding to provide essentially neutral support for neutral dorsiflexion of the left ankle and heel and foot. Orthopedic recommending may use the walking boot for transfers or ambulating and wheelchair as necessary. Follow-up with outpatient orthopedics. Dr. Crain, [facility] [place] Per patient request, bilateral ankle x-rays ordered on 04/13 - ordered, unchanged, follow up with Dr. Crain Continues to have LLE discomfort. Evaluated by Favio Ford PA-C today, patient with good ROM but painful. Will have Dr. Layne evaluate later today as well. Considering repeat ankle XR, may benefit from PT/OT if patient desires more frequent ambulation to wheelchair Parkinson disease: Sinemet on hold, cont risperidone Chronic pain: Continue current regimen, minimize escalations in narcotics DVT prophylaxis: SQ Lovenox Disposition:Medically stable; awaiting placement to facility. Admission and Anticipated Discharge Date Admission Date: March 12, 2021 Subjective Pt was seen and examined for follow up of pain and hallucination Lying in bed complaint of pain in her left knee She said that pain is slightly improves compare to yesterday Denies any chest pain, palpitation, dizziness and SOB Review of Systems Review of Systems: All systems reviewed & are unremarkable except as noted in Subjective Physical Exam Physical Exam: General- No acute distress Head- atraumatic Eyes- PERRL, EOMI, ENT- oropharynx clear Neck- supple, no JVD Lungs- clear to auscultation Heart- regular rhythm; no murmur Abdomen- normal bowel sounds, soft, nontender Extremities- no calf tenderness, left knee pain Neuro- alert, oriented x 3; PERRL, EOMI; no facial palsy; no dysarthria Skin- warm & dry Results & Data Results & Data ([facility]) Vital Signs (Past 12 Hours) Vital Signs Temp Pulse Resp BP Pulse Ox 05/10/21 22:29 36.8 C 70 157/80 H 96 05/10/21 20:46 37.2 C 70 155/78 H 96 05/10/21 15:04 37.2 C 72 17 148/76 H 96
[2021-05-11] MEDS: DICLOFENAC SOD 1% GEL 100 GM TUBE EXT SCH ×3 (06:12→17:08)
[2021-05-11] MEDS: ACETAMINOPHEN 500 MG TAB PO SCH ×2 (07:33→15:38)
[2021-05-11] MEDS: traMADol HCL 50 MG TABLET PO PRN ×2 (07:33→15:37)
[2021-05-11] MEDS: LACTASE 3000 UNIT TAB PO SCH ×3 (07:34→17:08)
[2021-05-11] MEDS: GABAPENTIN 100 MG CAP PO SCH ×3 (09:33→19:48)
[2021-05-11] MEDS: ADVANCED PROBIOTIC 1250 MG CAPSULE PO SCH (09:33)
[2021-05-11] MEDS: MAGNESIUM OXIDE 400 MG TAB PO SCH ×2 (09:33→19:49)
[2021-05-11] MEDS: METOPROLOL TARTRATE 25 MG TAB PO SCH ×2 (09:34→19:47)
[2021-05-11] MEDS: POTASSIUM CHLORIDE 10 MEQ TABCR PO SCH ×2 (09:34→19:47)
[2021-05-11] MEDS: amLODIPine BESYLATE 5 MG TAB PO SCH (09:34)
[2021-05-11] MEDS: DOCUSATE SODIUM/SENNA 50/8.6MG TAB PO SCH (09:35)
--- NOTE | 2021-05-11 12:45 | Communication Note ---
Date of Service: May 11, 2021 Saw Chen this morning. She reports she's feeling better today than yesterday. No complaints or concerns. She continues to like the risperidone. She denies any medication side effects. Continue with current psych medications.
[2021-05-11] MEDS: LIDOCAINE 5% 1 PATCH TD SCH (13:06)
[2021-05-11] MEDS: FERROUS SULFATE 325 MG TAB PO SCH (14:02)
[2021-05-11] MEDS: ASPIRIN 81 MG ECTAB PO SCH (14:02)
[2021-05-11] MEDS: risperiDONE 0.5 MG TABLET PO SCH (14:03)
[2021-05-11] MEDS: PANTOprazole 40 MG TAB PO SCH (15:38)
[2021-05-11] MEDS: ENOXAPARIN INJ 40 MG/0.4 ML SYR SQ SCH (19:46)
[2021-05-11] MEDS: lamoTRIgine 25 MG TAB PO SCH (19:48)
[2021-05-11] MEDS: EZETIMIBE 10 MG TABLET PO SCH (19:48)
[2021-05-11] MEDS: ZOLPIDEM TARTRATE 5 MG TAB PO PRN (22:13)
--- NOTE | 2021-05-11 23:59 | Hospitalist Progress Note ---
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 Being managed for the following: Pneumonia Admission CXR - bibasilar infiltration more on the right could be secondary to aspiration versus HCAP Initial lactic acid 3.2---> 1.9, no other signs of sepsis. MRSA screen negative Zosyn 03/12 --> change to Augmentin 03/14 -->Levaquin 03/15 d/t E.cloacae and E. 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 On Ambien. 04/18 - visual and auditory hallucinations, worsening delusions/paranoia. Per psychiatry, tapered Risperdal in favor of trial of Zyprexa 2.5 mg at bedtime. Zyprexa increased to 5 mg at bedtime on 04/22 04/24 - Decrease Zyprexa back to 2.5mg qhs given emergence of side effects (daytime fatigue, flattening of affect and softer speech) at higher dose. May need to consider reducing dopamine agent for Parkinson's to better target psychotic symptoms versus Seroquel trail if symptoms persist on low dose Zyprexa. discussed with psychiatry, stopped Sinemet afternoon dose as it can be driving her psychosis 04/29 - DC zyprexa 05/01-Risperdal had been started 03/24 which was then cross-tapered to Olanzapine which was stopped due to worsening bradykinesia and parkinsonism side effects. Despite understanding that her Sinemet contributes to her paranoia, she would like to have this restarted. 05/02-Sinemet on hold and risperidone restarted. Case discussed with psych that recommended to continue current therapy with Ri speridone daily and ambien prn Stable CAUTI:Chronic indwelling Cheng catheter History of recurrent UTIs. Patient overdue for follow-up with urology---> Alexandrea BETANCOURT to arrange for outpatient follow-up for management of her chronic Cheng UA was suggestive of infection, 03/12 urine culture Enterobacter cloacae and E. coli. Completed Levaquin. 04/18 - reports burning at Cheng site Repeat urine culture growing Enterobacter cloacae, multidrug-resistant. On meropenem Unclear if true infection or colonization ID consulted -presence of bacteriuria and pyuria expected with an indwelling catheter and has no specificity for UTI. No systemic s/sx of infection. Consider other alternatives for urinary incontinence care. Stop meropenem and observe for signs directly attributable to her infection and urinary tract before restarting. Family and patient refused for cheng catheter removal. Patient with longstanding overflow incontinence issues. Discussed increased risk for UTIs Replaced on 04/24. She refuses removal as there is an issue with frequent urinary incontinence and concern for subsequent skin breakdown, will need monthly changes Outpatient follow-up with urology Chest pain - resolved -Developed chest pain on 03/27 and was transferred to [facility] with telemetry -Troponin negative x2, EKG nonischemic -Reproducible on exam, likely musculoskeletal in nature -Another episode of chest pain on 04/06 evening, EKG and troponin unremarkable Chronic Diastolic CHF pt with episode of decompensated CHF while hospitalized, now resolved -Echo 03/21/2021 -EF 55-60%, grade 2 diastolic dysfunction 03/14 CXR: Mild pulmonary edema. Possible small left pleural effusion 03/14 IV dose of Lasix 03/28 IV Lasix x 1 dose euvolemic today, daily weights TIA Patient was a stroke alert overnight (03/20-03/21) Likely TIA - involving the right hemisphere with left facial droop yet on imaging has no evidence for a completed event Head and neck CTA, brain MRI unremarkable for acute findings Neurology consulted, input appreciated Do not have sufficient evidence to recommend adding Plavix to her aspirin but will observe her for recurrent events and if they do enlarge then certainly would add another antiplatelet agent Recommend to continue aspirin 81 mg daily, and 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 Fields CMT (Alawcnv-Hjzbp-Ueffw disease): S/p multiple lower extremity procedures, most recently s/p left knee closed reduction total knee arthroplasty subluxation on 02/16/2021 - patient is to remain nonweightbearing of the left lower extremity and limited weightbearing on the right lower extremity Narcotics have been stopped-added Tramadol for relief 05/04: she consistently is asking for pain meds and would like some more tonight. Abnormal Left ankle XR Chronic multiple joint pain, more on the left leg 03/15 x-ray left ankle: A 1.8 cm linear ossific density posterior to the talus may represent an avulsion fracture from the dorsal calcaneus. Clinical correlation will be essential. Orthopedic consulted for left calcaneal superior posterior avulsion fracture status post fall: High tide walking boot removed, replaced with a dorsiflexion splint with a negative relief under the left heel and lambs wool padding to provide essentially neutral support for neutral dorsiflexion of the left ankle and heel and foot. Orthopedic recommending may use the walking boot for transfers or ambulating and wheelchair as necessary. Follow-up with outpatient orthopedics. Dr. Crain, [facility] [place] Per patient request, bilateral ankle x-rays ordered on 04/13 - ordered, unchanged, follow up with Dr. Crain Continues to have LLE discomfort. Evaluated by Favio Ford PA-C today, patient with good ROM but painful. Will have Dr. Layne evaluate later today as well. Considering repeat ankle XR, may benefit from PT/OT if patient desires more frequent ambulation to wheelchair Left knee pain Complaint of left knee pain Will get an Xray of the knee Continue knee brace and pain med Continue monitor Parkinson disease: Sinemet on hold, cont risperidone Chronic pain: Continue current regimen, minimize escalations in narcotics DVT prophylaxis: SQ Lovenox Disposition:Medically stable; awaiting placement to facility. Admission and Anticipated Discharge Date Admission Date: March 12, 2021 Subjective Pt was seen and examined for follow up of pain and hallucination Lying in bed with no acute distress She continues complaint of left knee pain Denies any chest pain, palpitation, dizziness and SOB Review of Systems Review of Systems: All systems reviewed & are unremarkable except as noted in Subjective Physical Exam Physical Exam: General- No acute distress Head- atraumatic Eyes- PERRL, EOMI, ENT- oropharynx clear Neck- supple, no JVD Lungs- clear to auscultation Heart- regular rhythm; no murmur Abdomen- normal bowel sounds, soft, nontender Extremities- no calf tenderness, left knee pain Neuro- alert, oriented x 3; PERRL, EOMI; no facial palsy; no dysarthria Skin- warm & dry Results & Data Results & Data ([facility]) Vital Signs (Past 12 Hours) Vital Signs Temp Pulse Pulse Resp BP Pulse Ox 05/11/21 22:46 36.7 C 47 L 17 147/78 H 99 05/11/21 15:50 37.4 C 68 18 162/77 H 97
[2021-05-12] MEDS: ACETAMINOPHEN 500 MG TAB PO SCH ×3 (00:01→16:10)
[2021-05-12] MEDS: DICLOFENAC SOD 1% GEL 100 GM TUBE EXT SCH ×4 (00:02→17:50)
[2021-05-12] MEDS: LIDOCAINE 5% 1 PATCH TD SCH (08:14)
[2021-05-12] MEDS: METOPROLOL TARTRATE 25 MG TAB PO SCH ×2 (08:16→19:30)
[2021-05-12] MEDS: LACTASE 3000 UNIT TAB PO SCH ×3 (08:16→16:10)
[2021-05-12] MEDS: ASPIRIN 81 MG ECTAB PO SCH (08:16)
[2021-05-12] MEDS: amLODIPine BESYLATE 5 MG TAB PO SCH (08:17)
[2021-05-12] MEDS: POTASSIUM CHLORIDE 10 MEQ TABCR PO SCH ×2 (08:17→19:30)
[2021-05-12] MEDS: DOCUSATE SODIUM/SENNA 50/8.6MG TAB PO SCH (08:17)
[2021-05-12] MEDS: PANTOprazole 40 MG TAB PO SCH (08:18)
[2021-05-12] MEDS: GABAPENTIN 100 MG CAP PO SCH ×3 (08:18→19:29)
[2021-05-12] MEDS: ADVANCED PROBIOTIC 1250 MG CAPSULE PO SCH (08:18)
[2021-05-12] MEDS: MAGNESIUM OXIDE 400 MG TAB PO SCH ×2 (08:19→19:29)
--- NOTE | 2021-05-12 09:35 | XRay Report ---
XR knee LT 1 or 2V routine CLINICAL HISTORY: Left knee pain. COMPARISON: CT of the left knee February 16, 2021. Left knee radiographs February 15, 2021. FINDINGS: Alignment of the left knee is anatomic. There is no acute fracture. No periprosthetic luce ncy is present. Postoperative appearance is unchanged. There is no evidence for a left knee joint eff usion. IMPRESSION: 1. Intact total left knee arthroplasty. No periprosthetic fracture or lucency. 2. No joint effusion. ACT 112: Negative or not required by law. Electronically signed by: David Spring M.D. 05/12/2021 9:34 AM
[2021-05-12] MEDS: traMADol HCL 50 MG TABLET PO PRN (11:44)
[2021-05-12] MEDS: FERROUS SULFATE 325 MG TAB PO SCH (11:45)
[2021-05-12] MEDS: risperiDONE 0.5 MG TABLET PO SCH (14:16)
[2021-05-12] MEDS: ENOXAPARIN INJ 40 MG/0.4 ML SYR SQ SCH (19:28)
[2021-05-12] MEDS: lamoTRIgine 25 MG TAB PO SCH (19:28)
[2021-05-12] MEDS: EZETIMIBE 10 MG TABLET PO SCH (19:29)
[2021-05-12] MEDS: ZOLPIDEM TARTRATE 5 MG TAB PO PRN (22:45)
--- NOTE | 2021-05-13 00:20 | Hospitalist Progress Note ---
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 Being managed for the following: Pneumonia Admission CXR - bibasilar infiltration more on the right could be secondary to aspiration versus HCAP Initial lactic acid 3.2---> 1.9, no other signs of sepsis. MRSA screen negative Zosyn 03/12 --> change to Augmentin 03/14 -->Levaquin 03/15 d/t E.cloacae and E. 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 On Ambien. 04/18 - visual and auditory hallucinations, worsening delusions/paranoia. Per psychiatry, tapered Risperdal in favor of trial of Zyprexa 2.5 mg at bedtime. Zyprexa increased to 5 mg at bedtime on 04/22 04/24 - Decrease Zyprexa back to 2.5mg qhs given emergence of side effects (daytime fatigue, flattening of affect and softer speech) at higher dose. May need to consider reducing dopamine agent for Parkinson's to better target psychotic symptoms versus Seroquel trail if symptoms persist on low dose Zyprexa. discussed with psychiatry, stopped Sinemet afternoon dose as it can be driving her psychosis 04/29 - DC zyprexa 05/01-Risperdal had been started 03/24 which was then cross-tapered to Olanzapine which was stopped due to worsening bradykinesia and parkinsonism side effects. Despite understanding that her Sinemet contributes to her paranoia, she would like to have this restarted. 05/02-Sinemet on hold and risperidone restarted. Case discussed with psych that recommended to continue current therapy with Ri speridone daily and ambien prn Stable CAUTI:Chronic indwelling Cheng catheter History of recurrent UTIs. Patient overdue for follow-up with urology---> Alexandrea BETANCOURT to arrange for outpatient follow-up for management of her chronic Cheng UA was suggestive of infection, 03/12 urine culture Enterobacter cloacae and E. coli. Completed Levaquin. 04/18 - reports burning at Cheng site Repeat urine culture growing Enterobacter cloacae, multidrug-resistant. On meropenem Unclear if true infection or colonization ID consulted -presence of bacteriuria and pyuria expected with an indwelling catheter and has no specificity for UTI. No systemic s/sx of infection. Consider other alternatives for urinary incontinence care. Stop meropenem and observe for signs directly attributable to her infection and urinary tract before restarting. Family and patient refused for cheng catheter removal. Patient with longstanding overflow incontinence issues. Discussed increased risk for UTIs Replaced on 04/24. She refuses removal as there is an issue with frequent urinary incontinence and concern for subsequent skin breakdown, will need monthly changes Outpatient follow-up with urology Chest pain - resolved -Developed chest pain on 03/27 and was transferred to [facility] with telemetry -Troponin negative x2, EKG nonischemic -Reproducible on exam, likely musculoskeletal in nature -Another episode of chest pain on 04/06 evening, EKG and troponin unremarkable Chronic Diastolic CHF pt with episode of decompensated CHF while hospitalized, now resolved -Echo 03/21/2021 -EF 55-60%, grade 2 diastolic dysfunction 03/14 CXR: Mild pulmonary edema. Possible small left pleural effusion 03/14 IV dose of Lasix 03/28 IV Lasix x 1 dose euvolemic today, daily weights TIA Patient was a stroke alert overnight (03/20-03/21) Likely TIA - involving the right hemisphere with left facial droop yet on imaging has no evidence for a completed event Head and neck CTA, brain MRI unremarkable for acute findings Neurology consulted, input appreciated Do not have sufficient evidence to recommend adding Plavix to her aspirin but will observe her for recurrent events and if they do enlarge then certainly would add another antiplatelet agent Recommend to continue aspirin 81 mg daily, and 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 Fields CMT (Jwynizj-Eidkw-Xtlwa disease): S/p multiple lower extremity procedures, most recently s/p left knee closed reduction total knee arthroplasty subluxation on 02/16/2021 - patient is to remain nonweightbearing of the left lower extremity and limited weightbearing on the right lower extremity Narcotics have been stopped-added Tramadol for relief 05/04: she consistently is asking for pain meds and would like some more tonight. Abnormal Left ankle XR Chronic multiple joint pain, more on the left leg 03/15 x-ray left ankle: A 1.8 cm linear ossific density posterior to the talus may represent an avulsion fracture from the dorsal calcaneus. Clinical correlation will be essential. Orthopedic consulted for left calcaneal superior posterior avulsion fracture status post fall: High tide walking boot removed, replaced with a dorsiflexion splint with a negative relief under the left heel and lambs wool padding to provide essentially neutral support for neutral dorsiflexion of the left ankle and heel and foot. Orthopedic recommending may use the walking boot for transfers or ambulating and wheelchair as necessary. Follow-up with outpatient [place]opedics. [place] [facility] [place], bilateral ankle x-rays ordered on 04/13 - ordered, unchanged, follow up with Dr. Crain Continues to have LLE discomfort. Evaluated by Favio Ford PA-C today, patient with good ROM but painful. Will have Dr. Layne evaluate later today as well. Considering repeat ankle XR, may benefit from PT/OT if patient desires more frequent ambulation to wheelchair Left knee pain Complaint of left knee pain Will get an Xray of the knee Continue knee brace and pain med Continue monitor Parkinson disease: Sinemet on hold, cont risperidone Chronic pain: Continue current regimen, minimize escalations in narcotics DVT prophylaxis: SQ Lovenox Disposition:Medically stable; awaiting placement to facility. Admission and Anticipated Discharge Date Admission Date: March 12, 2021 Subjective Pt was seen and examined for follow up of pain and hallucination Lying in bed with no acute distress Left knee pain improves Denies any chest pain, palpitation, dizziness and SOB Review of Systems Review of Systems: All systems reviewed & are unremarkable except as noted in Subjective Physical Exam Physical Exam: General- No acute distress Head- atraumatic Eyes- PERRL, EOMI, ENT- oropharynx clear Neck- supple, no JVD Lungs- clear to auscultation Heart- regular rhythm; no murmur Abdomen- normal bowel sounds, soft, nontender Extremities- no calf tenderness, left knee pain Neuro- alert, oriented x 3; PERRL, EOMI; no facial palsy; no dysarthria Skin- warm & dry Results & Data Results & Data ([facility]) Vital Signs (Past 12 Hours) Vital Signs Temp Pulse Pulse Resp BP Pulse Ox 05/12/21 23:02 36.8 C 74 16 165/79 H 96 05/12/21 15:00 36.8 C 61 16 155/76 H 96
[2021-05-13] MEDS: DICLOFENAC SOD 1% GEL 100 GM TUBE EXT SCH ×5 (05:27→22:39)
[2021-05-13] MEDS: MAGNESIUM OXIDE 400 MG TAB PO SCH ×2 (09:25→21:25)
[2021-05-13] MEDS: GABAPENTIN 100 MG CAP PO SCH ×3 (09:25→21:24)
[2021-05-13] MEDS: METOPROLOL TARTRATE 25 MG TAB PO SCH ×2 (09:25→21:24)
[2021-05-13] MEDS: POTASSIUM CHLORIDE 10 MEQ TABCR PO SCH ×2 (09:25→21:24)
[2021-05-13] MEDS: ASPIRIN 81 MG ECTAB PO SCH (09:26)
[2021-05-13] MEDS: DOCUSATE SODIUM/SENNA 50/8.6MG TAB PO SCH (09:26)
[2021-05-13] MEDS: amLODIPine BESYLATE 5 MG TAB PO SCH (09:26)
[2021-05-13] MEDS: PANTOprazole 40 MG TAB PO SCH (09:27)
[2021-05-13] MEDS: LIDOCAINE 5% 1 PATCH TD SCH (09:27)
[2021-05-13] MEDS: LACTASE 3000 UNIT TAB PO SCH ×3 (09:27→16:20)
[2021-05-13] MEDS: ADVANCED PROBIOTIC 1250 MG CAPSULE PO SCH (09:27)
[2021-05-13] MEDS: ACETAMINOPHEN 500 MG TAB PO SCH ×4 (09:44→22:39)
--- NOTE | 2021-05-13 12:22 | Hospitalist Progress Note ---
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 Being managed for the following: Pneumonia Admission CXR - bibasilar infiltration more on the right could be secondary to aspiration versus HCAP Initial lactic acid 3.2---> 1.9, no other signs of sepsis. MRSA screen negative Zosyn 03/12 --> change to Augmentin 03/14 -->Levaquin 03/15 d/t E.cloacae and E. 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 On Ambien. 04/18 - visual and auditory hallucinations, worsening delusions/paranoia. Per psychiatry, tapered Risperdal in favor of trial of Zyprexa 2.5 mg at bedtime. Zyprexa increased to 5 mg at bedtime on 04/22 04/24 - Decrease Zyprexa back to 2.5mg qhs given emergence of side effects (daytime fatigue, flattening of affect and softer speech) at higher dose. May need to consider reducing dopamine agent for Parkinson's to better target psychotic symptoms versus Seroquel trail if symptoms persist on low dose Zyprexa. discussed with psychiatry, stopped Sinemet afternoon dose as it can be driving her psychosis 04/29 - DC zyprexa 05/01-Risperdal had been started 03/24 which was then cross-tapered to Olanzapine which was stopped due to worsening bradykinesia and parkinsonism side effects. Despite understanding that her Sinemet contributes to her paranoia, she would like to have this restarted. 05/02-Sinemet on hold and risperidone restarted. Case discussed with psych that recommended to continue current therapy with Ri speridone daily and ambien prn Stable CAUTI:Chronic indwelling Cheng catheter History of recurrent UTIs. Patient overdue for follow-up with urology---> Alexandrea BETANCOURT to arrange for outpatient follow-up for management of her chronic Cheng UA was suggestive of infection, 03/12 urine culture Enterobacter cloacae and E. coli. Completed Levaquin. 04/18 - reports burning at Cheng site Repeat urine culture growing Enterobacter cloacae, multidrug-resistant. On meropenem Unclear if true infection or colonization ID consulted -presence of bacteriuria and pyuria expected with an indwelling catheter and has no specificity for UTI. No systemic s/sx of infection. Consider other alternatives for urinary incontinence care. Stop meropenem and observe for signs directly attributable to her infection and urinary tract before restarting. Family and patient refused for cheng catheter removal. Patient with longstanding overflow incontinence issues. Discussed increased risk for UTIs Replaced on 04/24. She refuses removal as there is an issue with frequent urinary incontinence and concern for subsequent skin breakdown, will need monthly changes Outpatient follow-up with urology Chest pain - resolved -Developed chest pain on 03/27 and was transferred to [facility] with telemetry -Troponin negative x2, EKG nonischemic -Reproducible on exam, likely musculoskeletal in nature -Another episode of chest pain on 04/06 evening, EKG and troponin unremarkable Chronic Diastolic CHF pt with episode of decompensated CHF while hospitalized, now resolved -Echo 03/21/2021 -EF 55-60%, grade 2 diastolic dysfunction 03/14 CXR: Mild pulmonary edema. Possible small left pleural effusion 03/14 IV dose of Lasix 03/28 IV Lasix x 1 dose euvolemic today, daily weights TIA Patient was a stroke alert overnight (03/20-03/21) Likely TIA - involving the right hemisphere with left facial droop yet on imaging has no evidence for a completed event Head and neck CTA, brain MRI unremarkable for acute findings Neurology consulted, input appreciated Do not have sufficient evidence to recommend adding Plavix to her aspirin but will observe her for recurrent events and if they do enlarge then certainly would add another antiplatelet agent Recommend to continue aspirin 81 mg daily, and 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 Fields CMT (Ewydskk-Cuqhb-Rtgwy disease): S/p multiple lower extremity procedures, most recently s/p left knee closed reduction total knee arthroplasty subluxation on 02/16/2021 - patient is to remain nonweightbearing of the left lower extremity and limited weightbearing on the right lower extremity Narcotics have been stopped-added Tramadol for relief 05/04: she consistently is asking for pain meds and would like some more tonight. Abnormal Left ankle XR Chronic multiple joint pain, more on the left leg 03/15 x-ray left ankle: A 1.8 cm linear ossific density posterior to the talus may represent an avulsion fracture from the dorsal calcaneus. Clinical correlation will be essential. Orthopedic consulted for left calcaneal superior posterior avulsion fracture status post fall: High tide walking boot removed, replaced with a dorsiflexion splint with a negative relief under the left heel and lambs wool padding to provide essentially neutral support for neutral dorsiflexion of the left ankle and heel and foot. Orthopedic recommending may use the walking boot for transfers or ambulating and wheelchair as necessary. Follow-up with outpatient [place]opedics. [place] [facility] [place], bilateral ankle x-rays ordered on 04/13 - ordered, unchanged, follow up with Dr. Crain Continues to have LLE discomfort. Evaluated by Favio Ford PA-C today, patient with good ROM but painful. Will have Dr. Layne evaluate later today as well. Considering repeat ankle XR, may benefit from PT/OT if patient desires more frequent ambulation to wheelchair Left knee pain Complaint of left knee pain Will get an Xray of the knee Continue knee brace and pain med Continue monitor Parkinson disease: Sinemet on hold, cont risperidone Chronic pain: Continue current regimen, minimize escalations in narcotics Will consult orthotic for left hand brace DVT prophylaxis: SQ Lovenox Disposition:Medically stable; awaiting placement to facility. Admission and Anticipated Discharge Date Admission Date: March 12, 2021 Subjective Pt was seen and examined for follow up of pain and hallucination Lying in bed with no acute distress Denies any chest pain, palpitation, dizziness and SOB Review of Systems Review of Systems: All systems reviewed & are unremarkable except as noted in Subjective Physical Exam Physical Exam: General- No acute distress Head- atraumatic Eyes- PERRL, EOMI, ENT- oropharynx clear Neck- supple, no JVD Lungs- clear to auscultation Heart- regular rhythm; no murmur Abdomen- normal bowel sounds, soft, nontender Extremities- no calf tenderness, left knee pain Neuro- alert, oriented x 3; PERRL, EOMI; no facial palsy; no dysarthria Skin- warm & dry Results & Data Results & Data ([facility]) Vital Signs (Past 12 Hours) Vital Signs Temp Pulse Resp BP Pulse Ox 05/13/21 07:12 36.5 C 60 18 135/74 97
[2021-05-13] MEDS: FERROUS SULFATE 325 MG TAB PO SCH (12:57)
[2021-05-13] MEDS: risperiDONE 0.5 MG TABLET PO SCH (13:46)
[2021-05-13] MEDS: traMADol HCL 50 MG TABLET PO PRN (14:13)
[2021-05-13] MEDS: lamoTRIgine 25 MG TAB PO SCH (21:24)
[2021-05-13] MEDS: EZETIMIBE 10 MG TABLET PO SCH (21:24)
[2021-05-13] MEDS: ENOXAPARIN INJ 40 MG/0.4 ML SYR SQ SCH (21:25)
[2021-05-13] MEDS: ZOLPIDEM TARTRATE 5 MG TAB PO PRN (22:39)
[2021-05-14] MEDS: DICLOFENAC SOD 1% GEL 100 GM TUBE EXT SCH ×4 (05:13→21:47)
[2021-05-14] MEDS: LIDOCAINE 5% 1 PATCH TD SCH (09:01)
[2021-05-14] MEDS: ACETAMINOPHEN 500 MG TAB PO SCH ×3 (09:01→21:47)
[2021-05-14] MEDS: POTASSIUM CHLORIDE 10 MEQ TABCR PO SCH ×2 (09:02→20:28)
[2021-05-14] MEDS: DOCUSATE SODIUM/SENNA 50/8.6MG TAB PO SCH (09:02)
[2021-05-14] MEDS: amLODIPine BESYLATE 5 MG TAB PO SCH (09:02)
[2021-05-14] MEDS: ASPIRIN 81 MG ECTAB PO SCH (09:02)
[2021-05-14] MEDS: LACTASE 3000 UNIT TAB PO SCH ×3 (09:02→16:52)
[2021-05-14] MEDS: GABAPENTIN 100 MG CAP PO SCH ×3 (09:02→20:28)
[2021-05-14] MEDS: PANTOprazole 40 MG TAB PO SCH (09:03)
[2021-05-14] MEDS: MAGNESIUM OXIDE 400 MG TAB PO SCH ×2 (09:03→20:27)
[2021-05-14] MEDS: ADVANCED PROBIOTIC 1250 MG CAPSULE PO SCH (09:03)
[2021-05-14] MEDS: METOPROLOL TARTRATE 25 MG TAB PO SCH ×2 (09:03→20:27)
[2021-05-14] MEDS: FERROUS SULFATE 325 MG TAB PO SCH (11:29)
--- NOTE | 2021-05-14 12:46 | Hospitalist Progress Note ---
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 Being managed for the following: Pneumonia Admission CXR - bibasilar infiltration more on the right could be secondary to aspiration versus HCAP Initial lactic acid 3.2---> 1.9, no other signs of sepsis. MRSA screen negative Zosyn 03/12 --> change to Augmentin 03/14 -->Levaquin 03/15 d/t E.cloacae and E. 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 On Ambien. 04/18 - visual and auditory hallucinations, worsening delusions/paranoia. Per psychiatry, tapered Risperdal in favor of trial of Zyprexa 2.5 mg at bedtime. Zyprexa increased to 5 mg at bedtime on 04/22 04/24 - Decrease Zyprexa back to 2.5mg qhs given emergence of side effects (daytime fatigue, flattening of affect and softer speech) at higher dose. May need to consider reducing dopamine agent for Parkinson's to better target psychotic symptoms versus Seroquel trail if symptoms persist on low dose Zyprexa. discussed with psychiatry, stopped Sinemet afternoon dose as it can be driving her psychosis 04/29 - DC zyprexa 05/01-Risperdal had been started 03/24 which was then cross-tapered to Olanzapine which was stopped due to worsening bradykinesia and parkinsonism side effects. Despite understanding that her Sinemet contributes to her paranoia, she would like to have this restarted. 05/02-Sinemet on hold and risperidone restarted. Case discussed with psych that recommended to continue current therapy with Ri speridone daily and ambien prn Stable CAUTI:Chronic indwelling Cheng catheter History of recurrent UTIs. Patient overdue for follow-up with urology---> Alexandrea BETANCOURT to arrange for outpatient follow-up for management of her chronic Cheng UA was suggestive of infection, 03/12 urine culture Enterobacter cloacae and E. coli. Completed Levaquin. 04/18 - reports burning at Cheng site Repeat urine culture growing Enterobacter cloacae, multidrug-resistant. On meropenem Unclear if true infection or colonization ID consulted -presence of bacteriuria and pyuria expected with an indwelling catheter and has no specificity for UTI. No systemic s/sx of infection. Consider other alternatives for urinary incontinence care. Stop meropenem and observe for signs directly attributable to her infection and urinary tract before restarting. Family and patient refused for cheng catheter removal. Patient with longstanding overflow incontinence issues. Discussed increased risk for UTIs Replaced on 04/24. She refuses removal as there is an issue with frequent urinary incontinence and concern for subsequent skin breakdown, will need monthly changes Outpatient follow-up with urology Chest pain - resolved -Developed chest pain on 03/27 and was transferred to [facility] with telemetry -Troponin negative x2, EKG nonischemic -Reproducible on exam, likely musculoskeletal in nature -Another episode of chest pain on 04/06 evening, EKG and troponin unremarkable Chronic Diastolic CHF pt with episode of decompensated CHF while hospitalized, now resolved -Echo 03/21/2021 -EF 55-60%, grade 2 diastolic dysfunction 03/14 CXR: Mild pulmonary edema. Possible small left pleural effusion 03/14 IV dose of Lasix 03/28 IV Lasix x 1 dose euvolemic today, daily weights TIA Patient was a stroke alert overnight (03/20-03/21) Likely TIA - involving the right hemisphere with left facial droop yet on imaging has no evidence for a completed event Head and neck CTA, brain MRI unremarkable for acute findings Neurology consulted, input appreciated Do not have sufficient evidence to recommend adding Plavix to her aspirin but will observe her for recurrent events and if they do enlarge then certainly would add another antiplatelet agent Recommend to continue aspirin 81 mg daily, and 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 Fields CMT (Fsgjhta-Mjqwq-Hvkss disease): S/p multiple lower extremity procedures, most recently s/p left knee closed reduction total knee arthroplasty subluxation on 02/16/2021 - patient is to remain nonweightbearing of the left lower extremity and limited weightbearing on the right lower extremity Narcotics have been stopped-added Tramadol for relief 05/04: she consistently is asking for pain meds and would like some more tonight. Abnormal Left ankle XR Chronic multiple joint pain, more on the left leg 03/15 x-ray left ankle: A 1.8 cm linear ossific density posterior to the talus may represent an avulsion fracture from the dorsal calcaneus. Clinical correlation will be essential. Orthopedic consulted for left calcaneal superior posterior avulsion fracture status post fall: High tide walking boot removed, replaced with a dorsiflexion splint with a negative relief under the left heel and lambs wool padding to provide essentially neutral support for neutral dorsiflexion of the left ankle and heel and foot. Orthopedic recommending may use the walking boot for transfers or ambulating and wheelchair as necessary. Follow-up with outpatient orthopedics. Dr. Crain, [facility] [place] Per patient request, bilateral ankle x-rays ordered on 04/13 - ordered, unchanged, follow up with Dr. Crain Continues to have LLE discomfort. Evaluated by Favio Ford PA-C patient with good ROM but painful. Will have Dr. Layne evaluate later today as well. Considering repeat ankle XR, may benefit from PT/OT if patient desires more frequent ambulation to wheelchair Left knee pain Complaint of left knee pain Knee xray shows intact replacement, no acute abn Continue knee brace and pain med Continue monitor Parkinson disease: Sinemet on hold, cont risperidone Chronic pain: Continue current regimen, minimize escalations in narcotics Will consult orthotic for left hand brace DVT prophylaxis: SQ Lovenox Disposition:Medically stable; awaiting placement to facility. Admission and Anticipated Discharge Date Admission Date: March 12, 2021 Supervising Physician Co-Signing Physician Notes Pt was seen and examined. Agreed with Estrella COLIN exam, assessment and plan. 6-year-old female with PMH Parkinson's, Wktyaxf-Kmxsi-Amrfh disease, HTN, HLD, history of TIA, CKD stage III, chronic Cheng catheter with recurrent UTIs, wheelchair-bound, multiple lower extremity surgeries, who presented to the ED for evaluation of shortness of breath and wheezing.currently is being managed for Psychotic disorder due to another medical condition with delusion. Lying in bed with no acute distress. Continue to have pain. Psych on board and recommended to continue current therapy. She is waiting for placement. Continue monitor. MD Dai Subjective Patient was seen and examined in 381-1. Follow-up chronic and recurrent UTIs, history of CVA, diastolic CHF pending placement. She states that she did not have a good day yesterday. Her braces were too tight on her legs. She denies fever, chills, sweats, lightheadedness, dizziness, nausea, vomiting. Overall notes a decreased appetite. Is requesting we have her potassium and magnesium checked. Review of Systems Review of Systems: All systems reviewed & are unremarkable except as noted in HPI & below Physical Exam Physical Exam: Gen: WD/WN, F, chronically ill appearing, NAD, A&O x3 basics HEENT: Normocephalic, atraumatic, conjunctivae moist, sclerae anicteric, mucous membranes moist. Lung: Clear to Auscultation bilaterally, no wheezes/rales/rhonchi Heart: Regular rate, regular rhythm, no murmurs, rubs, or gallops Abdomen: Soft, NT, ND +BS x 4 Extremities: Left lower extremity John wrap in place Skin: Warm, no rash, negative turgor. : +Cheng cath Results & Data Results & Data ([facility]) Vital Signs (Past 12 Hours) Vital Signs Temp Pulse Resp BP Pulse Ox 05/14/21 08:38 36.6 C 60 16 147/76 H 95 Medications Administered Current Inpatient Medications Acetaminophen (Acetaminophen 500 Mg Tab) 500 mg PO Q8@0000,0800,1600 MARIBELL Stop: 06/10/21 15:59 Last Admin: 05/14/21 09:01 Dose: 500 mg Documented by: Albuterol (Albut/Ipratrop 3mg/0.5mg Neb 3 Ml Vial) 3 ml NEB Q4R PRN PRN Reason: Shortness Of Breath Or Wheezing Stop: 06/10/21 10:48 Last Admin: 04/25/21 21:12 Dose: 3 ml Documented by: Amlodipine Besylate (Amlodipine Besylate 5 Mg Tab) 5 mg PO QAM [facility] Stop: 06/10/21 12:14 Last Admin: 05/14/21 09:02 Dose: 5 mg Documented by: Aspirin (Aspirin 81 Mg Ectab) 81 mg PO DAILY [facility] Stop: 06/10/21 08:59 Last Admin: 05/14/21 09:02 Dose: 81 mg Documented by: Carbidopa/Levodopa (Carbidopa/Levodopa 25/100mg Tab) 1 tab PO TID [facility] Stop: 05/31/21 13:59 Diclofenac Sodium (Diclofenac Sod 1% Gel 100 Gm Tube) 2 gm EXT Q6 MARIBELL Stop: 06/10/21 15:29 Last Admin: 05/14/21 11:30 Dose: 2 gm Documented by: Docusate Sodium (Docusate Sodium 100 Mg Cap) 100 mg PO DAILY PRN PRN Reason: Constipation Stop: 06/10/21 16:59 Last Admin: 04/06/21 02:36 Dose: 100 mg Documented by: Ezetimibe (Ezetimibe 10 Mg Tablet) 10 mg PO HS [facility] Stop: 06/10/21 20:59 Last Admin: 05/13/21 21:24 Dose: 10 mg Documented by: Enoxaparin Sodium (Enoxaparin Inj 40 Mg/0.4 Ml Syr) 40 mg SQ Q24H [facility] Stop: 06/10/21 20:59 Last Admin: 05/13/21 21:25 Dose: 40 mg Documented by: Ferrous Sulfate (Ferrous Sulfate 325 Mg Tab) 325 mg PO DAILY@1100 [facility] Stop: 06/10/21 10:59 Last Admin: 05/14/21 11:29 Dose: 325 mg Documented by: Gabapentin (Gabapentin 100 Mg Cap) 200 mg PO TID [facility] Stop: 06/10/21 20:59 Last Admin: 05/14/21 09:02 Dose: 200 mg Documented by: Lactase (Lactase 3000 Unit Tab) 3,000 units PO AC MARIBELL Stop: 06/10/21 16:59 Last Admin: 05/14/21 11:30 Dose: 3,000 units Documented by: Lactobacillus Acidoph/Casei/Rhamnos (Advanced Probiotic 1250 Mg Capsule) 2 cap PO DAILY [facility] Stop: 06/10/21 14:29 Last Admin: 05/14/21 09:03 Dose: 2 cap Documented by: Lamotrigine (Lamotrigine 25 Mg Tab) 75 mg PO HS [facility] Stop: 06/10/21 20:59 Last Admin: 05/13/21 21:24 Dose: 75 mg Documented by: Lidocaine (Lidocaine 5% 1 Patch) 1 patch TD DAILY MARIBELL Stop: 06/10/21 08:59 Last Admin: 05/14/21 09:01 Dose: 1 patch Documented by: Magnesium Oxide (Magnesium Oxide 400 Mg Tab) 400 mg PO BID MARIBELL Stop: 06/10/21 20:59 Last Admin: 05/14/21 09:03 Dose: 400 mg Documented by: Metoprolol Tartrate (Metoprolol Tartrate 25 Mg Tab) 25 mg PO BID [facility] Stop: 06/10/21 20:24 Last Admin: 05/14/21 09:03 Dose: 25 mg Documented by: Nitroglycerin (Nitroglycerin Sl 0.4 Mg/Tab Tab) 0.4 mg SL PRN PRN PRN Reason: Chest Pain Stop: 06/10/21 21:40 Last Admin: 04/22/21 22:16 Dose: 0.4 mg Documented by: Ondansetron HCl (Ondansetron Inj 2 Mg/Ml 2 Ml Vial) 4 mg IV Q8H PRN PRN Reason: Nausea And Vomiting Stop: 06/01/21 18:12 Last Admin: 05/04/21 09:26 Dose: 4 mg Documented by: Pantoprazole Sodium (Pantoprazole 40 Mg Tab) 40 mg PO DAILY [facility] Stop: 06/10/21 08:59 Last Admin: 05/14/21 09:03 Dose: 40 mg Documented by: Polyethylene Glycol (Polyethylene (Miralax) 17 Gm Pack) 17 gm PO DAILY PRN PRN Reason: Constipation Stop: 06/10/21 04:42 Last Admin: 05/08/21 09:30 Dose: 17 gm Documented by: Potassium Chloride (Potassium Chloride 10 Meq Tabcr) 10 meq PO BID MARIBELL Stop: 06/10/21 20:59 Last Admin: 05/14/21 09:02 Dose: 10 meq Documented by: Risperidone (Risperidone 0.5 Mg Tablet) 0.5 mg PO TODAY@1400 [facility] Stop: 06/01/21 13:59 Last Admin: 05/13/21 13:46 Dose: 0.5 mg Documented by: Senna/Docusate Sodium (Docusate Sodium/Senna 50/8.6mg Tab) 1 tab PO QAM [facility] Stop: 06/10/21 04:44 Last Admin: 05/14/21 09:02 Dose: 1 tab Documented by: Tramadol HCl (Tramadol Hcl 50 Mg Tablet) 50 mg PO Q6H PRN PRN Reason: Pain (6-10) Stop: 06/01/21 18:23 Last Admin: 05/13/21 14:13 Dose: 50 mg Documented by: Zolpidem Tartrate (Zolpidem Tartrate 5 Mg Tab) 5 mg PO HS PRN PRN Reason: Sleep Stop: 06/05/21 21:55 Last Admin: 05/13/21 22:39 Dose: 5 mg Documented by:
[2021-05-14] MEDS: risperiDONE 0.5 MG TABLET PO SCH (15:21)
[2021-05-14] MEDS: ENOXAPARIN INJ 40 MG/0.4 ML SYR SQ SCH (20:26)
[2021-05-14] MEDS: EZETIMIBE 10 MG TABLET PO SCH (20:27)
[2021-05-14] MEDS: lamoTRIgine 25 MG TAB PO SCH (20:28)
[2021-05-14] MEDS: ZOLPIDEM TARTRATE 5 MG TAB PO PRN (21:42)
[2021-05-14] MEDS: traMADol HCL 50 MG TABLET PO PRN (22:28)
[2021-05-14] MEDS: ALBUT/IPRATROP 3MG/0.5MG NEB 3 ML VIAL NEB PRN (23:31)
[2021-05-15] MEDS: DICLOFENAC SOD 1% GEL 100 GM TUBE EXT SCH ×4 (04:58→21:59)
[2021-05-15 07:06] LABS: Hematocrit (blood only) 33.6 % (37-47); Mean Corpuscular Hemoglobin 27.7 pg (25-34); Mean Corpuscular Hgb Conc 32.7 g/dL (32-36); Mean Corpuscular Volume 84.6 fL (80-100); Mean Platelet Volume 9.5 fL (7.4-10.4); Platelet Count 238 K/uL (130-400); RDW Coefficient of Variation 13.5 % (11.5-14.5); RDW Standard Deviation 41.4 fL (36.4-46.3); Red Blood Count 3.97 M/uL (4.2-5.4); White Blood Count 6.12 K/uL (4.8-10.8)
[2021-05-15 07:32] LABS: BUN Creatinine Ratio 30.2 (10-20); Creatinine Clr Calc Pharmacy 89.4 ml/min; Est GFR (African American) 107.6 ml/min; Est GFR (Non-African American) 92.9 ml/min; Magnesium 1.5 mg/dl (1.7-2.4); Potassium 3.6 mmol/L (3.5-5.1)
[2021-05-15] MEDS ORDERED: MAGNESIUM SULFATE / D5W 1 GM/100 ML BAG IV ONE (08:00)
[2021-05-15] MEDS: ACETAMINOPHEN 500 MG TAB PO SCH ×3 (08:34→21:59)
[2021-05-15] MEDS: LIDOCAINE 5% 1 PATCH TD SCH (08:34)
[2021-05-15] MEDS: MAGNESIUM OXIDE 400 MG TAB PO SCH ×2 (08:36→19:57)
[2021-05-15] MEDS: ADVANCED PROBIOTIC 1250 MG CAPSULE PO SCH (08:36)
[2021-05-15] MEDS: PANTOprazole 40 MG TAB PO SCH (08:36)
[2021-05-15] MEDS: ASPIRIN 81 MG ECTAB PO SCH ×2 (08:36→19:58)
[2021-05-15] MEDS: POTASSIUM CHLORIDE 10 MEQ TABCR PO SCH ×2 (08:36→19:58)
[2021-05-15] MEDS: GABAPENTIN 100 MG CAP PO SCH ×3 (08:36→19:59)
[2021-05-15] MEDS: METOPROLOL TARTRATE 25 MG TAB PO SCH ×2 (08:36→19:57)
[2021-05-15] MEDS: DOCUSATE SODIUM/SENNA 50/8.6MG TAB PO SCH (08:36)
[2021-05-15] MEDS: amLODIPine BESYLATE 5 MG TAB PO SCH (08:37)
[2021-05-15] MEDS: LACTASE 3000 UNIT TAB PO SCH ×3 (08:37→17:27)
--- NOTE | 2021-05-15 11:56 | Communication Note ---
Date of Service: May 15, 2021 Patient resting comfortably. No change in baseline drooling. Remains more animated than when on Zyprexa. Continue afternoon dose of Risperdal. No additio nal recs at this time. Liaison will continue to round on patient.
[2021-05-15] MEDS: FERROUS SULFATE 325 MG TAB PO SCH (12:28)
--- NOTE | 2021-05-15 12:31 | Hospitalist Progress Note ---
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 Being managed for the following: Hypomagnesemia mag 1.5 today, replete continue oral supplements repeat labs 05/17 Hyponatremia, chronic 132 today has been low since 04/18 obtain urine osm, serum osm, urine na Pneumonia Admission CXR - bibasilar infiltration more on the right could be secondary to aspiration versus HCAP Initial lactic acid 3.2---> 1.9, no other signs of sepsis. MRSA screen negative Zosyn 03/12 --> change to Augmentin 03/14 -->Levaquin 03/15 d/t E.cloacae and E. 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 On Ambien. 04/18 - visual and auditory hallucinations, worsening delusions/paranoia. Per psychiatry, tapered Risperdal in favor of trial of Zyprexa 2.5 mg at bedtime. Zyprexa increased to 5 mg at bedtime on 04/22 04/24 - Decrease Zyprexa back to 2.5mg qhs given emergence of side effects (daytime fatigue, flattening of affect and softer speech) at higher dose. May need to consider reducing dopamine agent for Parkinson's to better target psychotic symptoms versus Seroquel trail if symptoms persist on low dose Zyprexa. discussed with psychiatry, stopped Sinemet afternoon dose as it can be driving her psychosis 04/29 - DC zyprexa 05/01-Risperdal had been started 03/24 which was then cross-tapered to Olanzapine which was stopped due to worsening bradykinesia and parkinsonism side effects. Despite understanding that her Sinemet contributes to her paranoia, she would like to have this restarted. 05/02-Sinemet on hold and risperidone restarted. Seems to be more animated on risperdal per psych, continue - as of 05/15/21 Case discussed with psych that recommended to continue current therapy with Risperidone daily and ambien prn Stable CAUTI:Chronic indwelling Cheng catheter History of recurrent UTIs. Patient overdue for follow-up with urology---> Alexandrea BETANCOURT to arrange for outpatient follow-up for management of her chronic Cheng UA was suggestive of infection, 03/12 urine culture Enterobacter cloacae and E. coli. Completed Levaquin. 04/18 - reports burning at Cheng site Repeat urine culture growing Enterobacter cloacae, multidrug-resistant. On meropenem Unclear if true infection or colonization ID consulted -presence of bacteriuria and pyuria expected with an indwelling catheter and has no specificity for UTI. No systemic s/sx of infection. Consider other alternatives for urinary incontinence care. Stop meropenem and observe for signs directly attributable to her infection and urinary tract before restarting. Family and patient refused for cheng catheter removal. Patient with longstanding overflow incontinence issues. Discussed increased risk for UTIs Replaced on 04/24. She refuses removal as there is an issue with frequent urinary incontinence and concern for subsequent skin breakdown, will need monthly changes Outpatient follow-up with urology Chest pain - resolved -Developed chest pain on 03/27 and was transferred to [facility] with telemetry -Troponin negative x2, EKG nonischemic -Reproducible on exam, likely musculoskeletal in nature -Another episode of chest pain on 04/06 evening, EKG and troponin unremarkable Chronic Diastolic CHF pt with episode of decompensated CHF while hospitalized, now resolved -Echo 03/21/2021 -EF 55-60%, grade 2 diastolic dysfunction 03/14 CXR: Mild pulmonary edema. Possible small left pleural effusion 03/14 IV dose of Lasix 03/28 IV Lasix x 1 dose euvolemic today, daily weights pt with trace edema pre tibially today, give lasix 20mg x 1 TIA Patient was a stroke alert overnight (03/20-03/21) Likely TIA - involving the right hemisphere with left facial droop yet on imaging has no evidence for a completed event Head and neck CTA, brain MRI unremarkable for acute findings Neurology consulted, input appreciated Do not have sufficient evidence to recommend adding Plavix to her aspirin but will observe her for recurrent events and if they do enlarge then certainly would add another antiplatelet agent Recommend to continue aspirin 81 mg daily, and 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 Fields CMT (Zuhdhgu-Lkfbe-Pezjz disease): S/p multiple lower extremity procedures, most recently s/p left knee closed reduction total knee arthroplasty subluxation on 02/16/2021 - patient is to remain nonweightbearing of the left lower extremity and limited weightbearing on the right lower extremity Narcotics have been stopped-added Tramadol for relief 05/04: she consistently is asking for pain meds and would like some more tonight. Abnormal Left ankle XR Chronic multiple joint pain, more on the left leg 03/15 x-ray left ankle: A 1.8 cm linear ossific density posterior to the talus may represent an avulsion fracture from the dorsal calcaneus. Clinical correlation will be essential. Orthopedic consulted for left calcaneal superior posterior avulsion fracture status post fall: High tide walking boot removed, replaced with a dorsiflexion splint with a negative relief under the left heel and lambs wool padding to provide essentially neutral support for neutral dorsiflexion of the left ankle and heel and foot. Orthopedic recommending may use the walking boot for transfers or ambulating and wheelchair as necessary. Follow-up with outpatient orthopedics. Dr. Crani, [facility] [place] Per patient request, bilateral ankle x-rays ordered on 04/13 - ordered, unchanged, follow up with Dr. Crain Continues to have LLE discomfort. Evaluated by Favio Ford PA-C patient with good ROM but painful. Will have Dr. Layne evaluate later today as well. Considering repeat ankle XR, may benefit from PT/OT if patient desires more frequent ambulation to wheelchair Left knee pain Complaint of left knee pain Knee xray shows intact replacement, no acute abn Continue knee brace and pain med Continue monitor Parkinson disease: Sinemet on hold, cont risperidone Chronic pain: Continue current regimen, minimize escalations in narcotics Will consult orthotic for left hand brace - orthotics to get a, "therapy carrott," which is a device that provides gradual ext of fingers overtime. Will need to work with OT, should improve over time DVT prophylaxis: SQ Lovenox Disposition:Medically stable; awaiting placement to facility. Admission and Anticipated Discharge Date Admission Date: March 12, 2021 Supervising Physician Co-Signing Physician Notes Pt was seen and examined. Agreed with Estrella COLIN exam, assessment and plan. 76-year-old female with PMH Parkinson's, Dmuwbtj-Pfdbl-Ylazs disease, HTN, HLD, history of TIA, CKD stage III, chronic Cheng catheter with recurrent UTIs, wheelchair-bound, multiple lower extremity surgeries, who presented to the ED for evaluation of shortness of breath and wheezing.currently is being managed for Psychotic disorder due to another medical condition with delusion. Lying in bed with no acute distress. Continue to have pain. Psych on board and recommended to continue current therapy. Waiting for placement. Continue monitor. MD Dai Subjective Patient was seen and examined in 381-1. Follow-up chronic and recurrent UTIs, history of CVA, diastolic CHF pending placement. She feels her legs are more swollen today. Denies f/c/s, chest pain, sob, n/v/d. Tolerating meals. Mood is overall flat. Review of Systems Review of Systems: All systems reviewed & are unremarkable except as noted in HPI & below Physical Exam Physical Exam: Gen: WD/WN, F, chronically ill appearing, NAD, A&O x3 basics HEENT: Normocephalic, atraumatic, conjunctivae moist, sclerae anicteric, mucous membranes moist. Lung: Clear to Auscultation bilaterally, no wheezes/rales/rhonchi Heart: Regular rate, regular rhythm, no murmurs, rubs, or gallops Abdomen: Soft, NT, ND +BS x 4 Extremities: Left lower extremity John wrap in place, trace pretibial edema bl Skin: Warm, no rash, negative turgor. : +Cheng cath Results & Data Results & Data ([facility]) Vital Signs (Past 12 Hours) Vital Signs Temp Pulse Resp BP Pulse Ox 05/15/21 07:56 37.1 C 65 16 133/57 L 95 Laboratory Results Short CBC 05/15/21 Range/Units 06:42 WBC 6.12 (4.8-10.8) K/uL Hgb 11.0 L (12.0-16.0) g/dL Hct 33.6 L (37-47) % Plt Count 238 (130-400) K/uL BMP 05/15/21 06:42 Sodium 132 L Potassium 3.6 Chloride 99 Carbon Dioxide 27 BUN 16 Creatinine 0.53 L Glucose 82 Calcium 9.0 Medications Administered Current Inpatient Medications Acetaminophen (Acetaminophen 500 Mg Tab) 500 mg PO Q8@0000,0800,1600 [facility] Stop: 06/10/21 15:59 Last Admin: 05/15/21 08:34 Dose: 500 mg Documented by: Albuterol (Albut/Ipratrop 3mg/0.5mg Neb 3 Ml Vial) 3 ml NEB Q4R PRN PRN Reason: Shortness Of Breath Or Wheezing Stop: 06/10/21 10:48 Last Admin: 05/14/21 23:31 Dose: 3 ml Documented by: Amlodipine Besylate (Amlodipine Besylate 5 Mg Tab) 5 mg PO QAM [facility] Stop: 06/10/21 12:14 Last Admin: 05/15/21 08:37 Dose: 5 mg Documented by: Aspirin (Aspirin 81 Mg Ectab) 81 mg PO DAILY [facility] Stop: 06/10/21 08:59 Last Admin: 05/15/21 08:36 Dose: 81 mg Documented by: Carbidopa/Levodopa (Carbidopa/Levodopa 25/100mg Tab) 1 tab PO TID [facility] Stop: 05/31/21 13:59 Diclofenac Sodium (Diclofenac Sod 1% Gel 100 Gm Tube) 2 gm EXT Q6 [facility] Stop: 06/10/21 15:29 Last Admin: 05/15/21 12:28 Dose: 2 gm Documented by: Docusate Sodium (Docusate Sodium 100 Mg Cap) 100 mg PO DAILY PRN PRN Reason: Constipation Stop: 06/10/21 16:59 Last Admin: 04/06/21 02:36 Dose: 100 mg Documented by: Ezetimibe (Ezetimibe 10 Mg Tablet) 10 mg PO HS [facility] Stop: 06/10/21 20:59 Last Admin: 05/14/21 20:27 Dose: 10 mg Documented by: Enoxaparin Sodium (Enoxaparin Inj 40 Mg/0.4 Ml Syr) 40 mg SQ Q24H [facility] Stop: 06/10/21 20:59 Last Admin: 05/14/21 20:26 Dose: 40 mg Documented by: Ferrous Sulfate (Ferrous Sulfate 325 Mg Tab) 325 mg PO DAILY@1100 [facility] Stop: 06/10/21 10:59 Last Admin: 05/15/21 12:28 Dose: 325 mg Documented by: Furosemide (Furosemide 20 Mg Tab) 20 mg PO ONE ONE Stop: 05/15/21 13:01 Gabapentin (Gabapentin 100 Mg Cap) 200 mg PO TID [facility] Stop: 06/10/21 20:59 Last Admin: 05/15/21 08:36 Dose: 200 mg Documented by: Lactase (Lactase 3000 Unit Tab) 3,000 units PO AC [facility] Stop: 06/10/21 16:59 Last Admin: 05/15/21 12:28 Dose: 3,000 units Documented by: Lactobacillus Acidoph/Casei/Rhamnos (Advanced Probiotic 1250 Mg Capsule) 2 cap PO DAILY [facility] Stop: 06/10/21 14:29 Last Admin: 05/15/21 08:36 Dose: 2 cap Documented by: Lamotrigine (Lamotrigine 25 Mg Tab) 75 mg PO HS [facility] Stop: 06/10/21 20:59 Last Admin: 05/14/21 20:28 Dose: 75 mg Documented by: Lidocaine (Lidocaine 5% 1 Patch) 1 patch TD DAILY [facility] Stop: 06/10/21 08:59 Last Admin: 05/15/21 08:34 Dose: 1 patch Documented by: Magnesium Oxide (Magnesium Oxide 400 Mg Tab) 400 mg PO BID [facility] Stop: 06/10/21 20:59 Last Admin: 05/15/21 08:36 Dose: 400 mg Documented by: Metoprolol Tartrate (Metoprolol Tartrate 25 Mg Tab) 25 mg PO BID [facility] Stop: 06/10/21 20:24 Last Admin: 05/15/21 08:36 Dose: 25 mg Documented by: Miscellaneous (Remove Lidoderm Patch) 1 ea N/A 2100 [facility] Stop: 06/13/21 20:59 Last Admin: 05/14/21 20:28 Dose: 1 ea Documented by: Nitroglycerin (Nitroglycerin Sl 0.4 Mg/Tab Tab) 0.4 mg SL PRN PRN PRN Reason: Chest Pain Stop: 06/10/21 21:40 Last Admin: 04/22/21 22:16 Dose: 0.4 mg Documented by: Ondansetron HCl (Ondansetron Inj 2 Mg/Ml 2 Ml Vial) 4 mg IV Q8H PRN PRN Reason: Nausea And Vomiting Stop: 06/01/21 18:12 Last Admin: 05/04/21 09:26 Dose: 4 mg Documented by: Pantoprazole Sodium (Pantoprazole 40 Mg Tab) 40 mg PO DAILY [facility] Stop: 06/10/21 08:59 Last Admin: 05/15/21 08:36 Dose: 40 mg Documented by: Polyethylene Glycol (Polyethylene (Miralax) 17 Gm Pack) 17 gm PO DAILY PRN PRN Reason: Constipation Stop: 06/10/21 04:42 Last Admin: 05/08/21 09:30 Dose: 17 gm Documented by: Potassium Chloride (Potassium Chloride 10 Meq Tabcr) 10 meq PO BID [facility] Stop: 06/10/21 20:59 Last Admin: 05/15/21 08:36 Dose: 10 meq Documented by: Risperidone (Risperidone 0.5 Mg Tablet) 0.5 mg PO TODAY@1400 [facility] Stop: 06/01/21 13:59 Last Admin: 05/14/21 15:21 Dose: 0.5 mg Documented by: Senna/Docusate Sodium (Docusate Sodium/Senna 50/8.6mg Tab) 1 tab PO QAM [facility] Stop: 06/10/21 04:44 Last Admin: 05/15/21 08:36 Dose: 1 tab Documented by: Tramadol HCl (Tramadol Hcl 50 Mg Tablet) 50 mg PO Q6H PRN PRN Reason: Pain (6-10) Stop: 06/01/21 18:23 Last Admin: 05/14/21 22:28 Dose: 50 mg Documented by: Zolpidem Tartrate (Zolpidem Tartrate 5 Mg Tab) 5 mg PO HS PRN PRN Reason: Sleep Stop: 06/05/21 21:55 Last Admin: 05/14/21 21:42 Dose: 5 mg Documented by:
[2021-05-15] MEDS ORDERED: FUROSEMIDE 20 MG TAB PO ONE (13:00)
[2021-05-15] MEDS: risperiDONE 0.5 MG TABLET PO SCH (14:33)
[2021-05-15] MEDS: traMADol HCL 50 MG TABLET PO PRN (19:56)
[2021-05-15] MEDS: ENOXAPARIN INJ 40 MG/0.4 ML SYR SQ SCH (19:56)
[2021-05-15] MEDS: ZOLPIDEM TARTRATE 5 MG TAB PO PRN (19:56)
[2021-05-15] MEDS: EZETIMIBE 10 MG TABLET PO SCH (19:58)
[2021-05-15] MEDS: lamoTRIgine 25 MG TAB PO SCH (19:58)
[2021-05-16] MEDS: traMADol HCL 50 MG TABLET PO PRN ×2 (02:41→19:57)
[2021-05-16] MEDS: ALBUT/IPRATROP 3MG/0.5MG NEB 3 ML VIAL NEB PRN (04:35)
[2021-05-16] MEDS: DICLOFENAC SOD 1% GEL 100 GM TUBE EXT SCH ×4 (05:32→21:48)
[2021-05-16] MEDS: POTASSIUM CHLORIDE 10 MEQ TABCR PO SCH ×2 (07:52→19:59)
[2021-05-16] MEDS: METOPROLOL TARTRATE 25 MG TAB PO SCH ×2 (07:53→19:59)
[2021-05-16] MEDS: PANTOprazole 40 MG TAB PO SCH (07:53)
[2021-05-16] MEDS: ASPIRIN 81 MG ECTAB PO SCH (07:54)
[2021-05-16] MEDS: MAGNESIUM OXIDE 400 MG TAB PO SCH ×2 (07:54→20:00)
[2021-05-16] MEDS: LACTASE 3000 UNIT TAB PO SCH ×3 (07:54→16:23)
[2021-05-16] MEDS: ADVANCED PROBIOTIC 1250 MG CAPSULE PO SCH (07:55)
[2021-05-16] MEDS: amLODIPine BESYLATE 5 MG TAB PO SCH (07:55)
[2021-05-16] MEDS: LIDOCAINE 5% 1 PATCH TD SCH (07:56)
[2021-05-16] MEDS: DOCUSATE SODIUM/SENNA 50/8.6MG TAB PO SCH (07:56)
[2021-05-16] MEDS: ACETAMINOPHEN 500 MG TAB PO SCH ×3 (08:25→21:48)
[2021-05-16] MEDS: GABAPENTIN 100 MG CAP PO SCH ×3 (09:09→19:59)
[2021-05-16] MEDS: ONDANSETRON INJ 2 MG/ML 2 ML VIAL IV PRN (10:14)
[2021-05-16] MEDS: FERROUS SULFATE 325 MG TAB PO SCH (11:44)
[2021-05-16] MEDS: risperiDONE 0.5 MG TABLET PO SCH (13:21)
--- NOTE | 2021-05-16 13:35 | Hospitalist Progress Note ---
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 Being managed for the following: Hypomagnesemia mag 1.5 today, replete continue oral supplements repeat labs 05/17 Hyponatremia, chronic 132 today has been low since 04/18 urine osm 337, Ur Na 68, serum osm 275 obtain TSH Pneumonia Admission CXR - bibasilar infiltration more on the right could be secondary to aspiration versus HCAP Initial lactic acid 3.2---> 1.9, no other signs of sepsis. MRSA screen negative Zosyn 03/12 --> change to Augmentin 03/14 -->Levaquin 03/15 d/t E.cloacae and E. 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 On Ambien. 04/18 - visual and auditory hallucinations, worsening delusions/paranoia. Per psychiatry, tapered Risperdal in favor of trial of Zyprexa 2.5 mg at bedtime. Zyprexa increased to 5 mg at bedtime on 04/22 04/24 - Decrease Zyprexa back to 2.5mg qhs given emergence of side effects (daytime fatigue, flattening of affect and softer speech) at higher dose. May need to consider reducing dopamine agent for Parkinson's to better target psychotic symptoms versus Seroquel trail if symptoms persist on low dose Zyprexa. discussed with psychiatry, stopped Sinemet afternoon dose as it can be driving her psychosis 04/29 - DC zyprexa 05/01-Risperdal had been started 03/24 which was then cross-tapered to Olanzapine which was stopped due to worsening bradykinesia and parkinsonism side effects. Despite understanding that her Sinemet contributes to her paranoia, she would like to have this restarted. 05/02-Sinemet on hold and risperidone restarted. Seems to be more animated on risperdal per psych, continue - as of 05/15/21 Case discussed with psych that recommended to continue current therapy with Risperidone daily and ambien prn Stable CAUTI:Chronic indwelling Cheng catheter History of recurrent UTIs. Patient overdue for follow-up with urology---> Alexandrea BETANCOURT to arrange for outpatient follow-up for management of her chronic Cheng UA was suggestive of infection, 03/12 urine culture Enterobacter cloacae and E. coli. Completed Levaquin. 04/18 - reports burning at Cheng site Repeat urine culture growing Enterobacter cloacae, multidrug-resistant. On meropenem Unclear if true infection or colonization ID consulted -presence of bacteriuria and pyuria expected with an indwelling catheter and has no specificity for UTI. No systemic s/sx of infection. Consider other alternatives for urinary incontinence care. Stop meropenem and observe for signs directly attributable to her infection and urinary tract before restarting. Family and patient refused for cheng catheter removal. Patient with longstanding overflow incontinence issues. Discussed increased risk for UTIs Replaced on 04/24. She refuses removal as there is an issue with frequent urinary incontinence and concern for subsequent skin breakdown, will need monthly changes Outpatient follow-up with urology Chest pain - resolved -Developed chest pain on 03/27 and was transferred to [facility] with telemetry -Troponin negative x2, EKG nonischemic -Reproducible on exam, likely musculoskeletal in nature -Another episode of chest pain on 04/06 evening, EKG and troponin unremarkable Chronic Diastolic CHF pt with episode of decompensated CHF while hospitalized, now resolved -Echo 03/21/2021 -EF 55-60%, grade 2 diastolic dysfunction 03/14 CXR: Mild pulmonary edema. Possible small left pleural effusion 03/14 IV dose of Lasix 03/28 IV Lasix x 1 dose euvolemic today, daily weights pt with trace edema pre tibially today, give lasix 20mg x 1 on 05/15/21 TIA Patient was a stroke alert overnight (03/20-03/21) Likely TIA - involving the right hemisphere with left facial droop yet on imaging has no evidence for a completed event Head and neck CTA, brain MRI unremarkable for acute findings Neurology consulted, input appreciated Do not have sufficient evidence to recommend adding Plavix to her aspirin but will observe her for recurrent events and if they do enlarge then certainly would add another antiplatelet agent Recommend to continue aspirin 81 mg daily, and 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 Fields CMT (Eokirhh-Hyjja-Jdlrx disease): S/p multiple lower extremity procedures, most recently s/p left knee closed reduction total knee arthroplasty subluxation on 02/16/2021 - patient is to remain nonweightbearing of the left lower extremity and limited weightbearing on the right lower extremity Narcotics have been stopped-added Tramadol for relief 05/04: she consistently is asking for pain meds and would like some more tonight. Abnormal Left ankle XR Chronic multiple joint pain, more on the left leg 03/15 x-ray left ankle: A 1.8 cm linear ossific density posterior to the talus may represent an avulsion fracture from the dorsal calcaneus. Clinical correlation will be essential. Orthopedic consulted for left calcaneal superior posterior avulsion fracture status post fall: High tide walking boot removed, replaced with a dorsiflexion splint with a negative relief under the left heel and lambs wool padding to provide essentially neutral support for neutral dorsiflexion of the left ankle and heel and foot. Orthopedic recommending may use the walking boot for transfers or ambulating and wheelchair as necessary. Follow-up with outpatient [place]opedics. [place] [facility] [place] request, bilateral ankle x-rays ordered on 04/13 - ordered, unchanged, follow up with Dr. Crain Continues to have LLE discomfort. Evaluated by Favio Ford PA-C patient with good ROM but painful. Will have Dr. Layne evaluate later today as well. Considering repeat ankle XR, may benefit from PT/OT if patient desires more frequent ambulation to wheelchair Left knee pain Complaint of left knee pain Knee xray shows intact replacement, no acute abn Continue knee brace and pain med Continue monitor Parkinson disease: Sinemet on hold, cont risperidone Chronic pain: Continue current regimen, minimize escalations in narcotics orthotics consulted for left hand brace - orthotics to get a, "therapy carrott," which is a device that provides gradual ext of fingers overtime. Will need to work with OT, should improve over time. Pt refused this as it was too painful. Pt states she is to have surgery on hand when she returns home at [facility] DVT prophylaxis: SQ Lovenox Disposition:Medically stable; Pt may d/c to home once home made accessible; however CM still pursuing placement. Admission and Anticipated Discharge Date Admission Date: March 12, 2021 Supervising Physician Co-Signing Physician Notes Attending addendum: The patient was seen and examined in medical floor She has been stable and complains to have nonspecific pain involving the ankles and hand Denies any chest pain, palpitation or shortness of breath No abdominal pain, nausea and or vomiting One examination Lying in bed comfortably Hemodynamically stable Chestdecreased breath sounds bibasilarly HeartS1, S2 regular Abdomenbenign Extremitiesboth ankles are bandaged RN INTERVENTIONAL-alert and awake. Generally weak Her labs, medications and imaging studies reviewed Agree with assessment and plan as outlined above by Estrella Colmenares PA-C Remains medically stable and awaiting placement DR Kavita Powers Subjective Patient was seen and examined in 381-1. Follow-up chronic and recurrent UTIs, history of CVA, diastolic CHF pending placement. She states she does not like the carrott from orthotics. She feels it is very painful. She said she is to have surgery on her hand when she gets home. She denies f/c/s, chest pain, sob, n/v/d. Review of Systems Review of Systems: All systems reviewed & are unremarkable except as noted in HPI & below Physical Exam Physical Exam: Gen: WD/WN, F, chronically ill appearing, NAD, A&O x3 basics HEENT: Normocephalic, atraumatic, conjunctivae moist, sclerae anicteric, mucous membranes moist. Lung: Clear to Auscultation bilaterally, no wheezes/rales/rhonchi Heart: Regular rate, regular rhythm, no murmurs, rubs, or gallops Abdomen: Soft, NT, ND +BS x 4 Extremities: Left lower extremity John wrap in place, trace pretibial edema bl Skin: Warm, no rash, negative turgor. : +Cheng cath Results & Data Results & Data ([facility]) Vital Signs (Past 12 Hours) Vital Signs Temp Pulse Pulse Resp BP Pulse Ox 05/16/21 07:46 36.8 C 64 16 149/78 H 100 05/16/21 04:35 60 16 98 Medications Administered Current Inpatient Medications Acetaminophen (Acetaminophen 500 Mg Tab) 500 mg PO Q8@0000,0800,1600 [facility] Stop: 06/10/21 15:59 Last Admin: 05/16/21 08:25 Dose: 500 mg Documented by: Albuterol (Albut/Ipratrop 3mg/0.5mg Neb 3 Ml Vial) 3 ml NEB Q4R PRN PRN Reason: Shortness Of Breath Or Wheezing Stop: 06/10/21 10:48 Last Admin: 05/16/21 04:35 Dose: 3 ml Documented by: Amlodipine Besylate (Amlodipine Besylate 5 Mg Tab) 5 mg PO QAM [facility] Stop: 06/10/21 12:14 Last Admin: 05/16/21 07:55 Dose: 5 mg Documented by: Aspirin (Aspirin 81 Mg Ectab) 81 mg PO DAILY [facility] Stop: 06/10/21 08:59 Last Admin: 05/16/21 07:54 Dose: 81 mg Documented by: Carbidopa/Levodopa (Carbidopa/Levodopa 25/100mg Tab) 1 tab PO TID [facility] Stop: 05/31/21 13:59 Diclofenac Sodium (Diclofenac Sod 1% Gel 100 Gm Tube) 2 gm EXT Q6 [facility] Stop: 06/10/21 15:29 Last Admin: 05/16/21 11:45 Dose: 2 gm Documented by: Docusate Sodium (Docusate Sodium 100 Mg Cap) 100 mg PO DAILY PRN PRN Reason: Constipation Stop: 06/10/21 16:59 Last Admin: 04/06/21 02:36 Dose: 100 mg Documented by: Ezetimibe (Ezetimibe 10 Mg Tablet) 10 mg PO HS [facility] Stop: 06/10/21 20:59 Last Admin: 05/15/21 19:58 Dose: 10 mg Documented by: Enoxaparin Sodium (Enoxaparin Inj 40 Mg/0.4 Ml Syr) 40 mg SQ Q24H [facility] Stop: 06/10/21 20:59 Last Admin: 05/15/21 19:56 Dose: 40 mg Documented by: Ferrous Sulfate (Ferrous Sulfate 325 Mg Tab) 325 mg PO DAILY@1100 [facility] Stop: 06/10/21 10:59 Last Admin: 05/16/21 11:44 Dose: 325 mg Documented by: Gabapentin (Gabapentin 100 Mg Cap) 200 mg PO TID [facility] Stop: 06/10/21 20:59 Last Admin: 05/16/21 13:21 Dose: 200 mg Documented by: Lactase (Lactase 3000 Unit Tab) 3,000 units PO AC [facility] Stop: 06/10/21 16:59 Last Admin: 05/16/21 11:44 Dose: 3,000 units Documented by: Lactobacillus Acidoph/Casei/Rhamnos (Advanced Probiotic 1250 Mg Capsule) 2 cap PO DAILY [facility] Stop: 06/10/21 14:29 Last Admin: 05/16/21 07:55 Dose: 2 cap Documented by: Lamotrigine (Lamotrigine 25 Mg Tab) 75 mg PO HS [facility] Stop: 06/10/21 20:59 Last Admin: 05/15/21 19:58 Dose: 75 mg Documented by: Lidocaine (Lidocaine 5% 1 Patch) 1 patch TD DAILY [facility] Stop: 06/10/21 08:59 Last Admin: 05/16/21 07:56 Dose: 1 patch Documented by: Magnesium Oxide (Magnesium Oxide 400 Mg Tab) 400 mg PO BID [facility] Stop: 06/10/21 20:59 Last Admin: 05/16/21 07:54 Dose: 400 mg Documented by: Metoprolol Tartrate (Metoprolol Tartrate 25 Mg Tab) 25 mg PO BID [facility] Stop: 06/10/21 20:24 Last Admin: 05/16/21 07:53 Dose: 25 mg Documented by: Miscellaneous (Remove Lidoderm Patch) 1 ea N/A 2100 [facility] Stop: 06/13/21 20:59 Last Admin: 05/15/21 19:59 Dose: 1 ea Documented by: Nitroglycerin (Nitroglycerin Sl 0.4 Mg/Tab Tab) 0.4 mg SL PRN PRN PRN Reason: Chest Pain Stop: 06/10/21 21:40 Last Admin: 04/22/21 22:16 Dose: 0.4 mg Documented by: Ondansetron HCl (Ondansetron Inj 2 Mg/Ml 2 Ml Vial) 4 mg IV Q8H PRN PRN Reason: Nausea And Vomiting Stop: 06/01/21 18:12 Last Admin: 05/16/21 10:14 Dose: 4 mg Documented by: Pantoprazole Sodium (Pantoprazole 40 Mg Tab) 40 mg PO DAILY [facility] Stop: 06/10/21 08:59 Last Admin: 05/16/21 07:53 Dose: 40 mg Documented by: Polyethylene Glycol (Polyethylene (Miralax) 17 Gm Pack) 17 gm PO DAILY PRN PRN Reason: Constipation Stop: 06/10/21 04:42 Last Admin: 05/08/21 09:30 Dose: 17 gm Documented by: Potassium Chloride (Potassium Chloride 10 Meq Tabcr) 10 meq PO BID [facility] Stop: 06/10/21 20:59 Last Admin: 05/16/21 07:52 Dose: 10 meq Documented by: Risperidone (Risperidone 0.5 Mg Tablet) 0.5 mg PO TODAY@1400 [facility] Stop: 06/01/21 13:59 Last Admin: 05/16/21 13:21 Dose: 0.5 mg Documented by: Senna/Docusate Sodium (Docusate Sodium/Senna 50/8.6mg Tab) 1 tab PO QAM [facility] Stop: 06/10/21 04:44 Last Admin: 05/16/21 07:56 Dose: 1 tab Documented by: Tramadol HCl (Tramadol Hcl 50 Mg Tablet) 50 mg PO Q6H PRN PRN Reason: Pain (6-10) Stop: 06/01/21 18:23 Last Admin: 05/16/21 02:41 Dose: 50 mg Documented by: Zolpidem Tartrate (Zolpidem Tartrate 5 Mg Tab) 5 mg PO HS PRN PRN Reason: Sleep Stop: 06/05/21 21:55 Last Admin: 05/15/21 19:56 Dose: 5 mg Documented by:
[2021-05-16] MEDS: ENOXAPARIN INJ 40 MG/0.4 ML SYR SQ SCH (19:58)
[2021-05-16] MEDS: EZETIMIBE 10 MG TABLET PO SCH (19:59)
[2021-05-16] MEDS: lamoTRIgine 25 MG TAB PO SCH (20:00)
[2021-05-16] MEDS: ZOLPIDEM TARTRATE 5 MG TAB PO PRN (21:48)
[2021-05-17] MEDS: DICLOFENAC SOD 1% GEL 100 GM TUBE EXT SCH ×3 (05:54→17:10)
[2021-05-17 06:19] LABS: BUN Creatinine Ratio 28.1 (10-20); Calcium 9.3 mg/dl (8.5-10.1); Creatinine Clr Calc Pharmacy 83.1 ml/min; Est GFR (African American) 105.1 ml/min; Est GFR (Non-African American) 90.7 ml/min; Magnesium 1.6 mg/dl (1.7-2.4); Potassium 4.2 mmol/L (3.5-5.1)
[2021-05-17] MEDS: METOPROLOL TARTRATE 25 MG TAB PO SCH ×2 (08:45→20:45)
[2021-05-17] MEDS: MAGNESIUM OXIDE 400 MG TAB PO SCH ×2 (08:46→20:46)
[2021-05-17] MEDS: POTASSIUM CHLORIDE 10 MEQ TABCR PO SCH ×2 (08:46→20:45)
[2021-05-17] MEDS: PANTOprazole 40 MG TAB PO SCH (08:47)
[2021-05-17] MEDS: GABAPENTIN 100 MG CAP PO SCH ×3 (08:47→20:46)
[2021-05-17] MEDS: ASPIRIN 81 MG ECTAB PO SCH (08:48)
[2021-05-17] MEDS: LACTASE 3000 UNIT TAB PO SCH ×3 (08:48→16:12)
[2021-05-17] MEDS: ADVANCED PROBIOTIC 1250 MG CAPSULE PO SCH (08:49)
[2021-05-17] MEDS: amLODIPine BESYLATE 5 MG TAB PO SCH (08:49)
[2021-05-17] MEDS: LIDOCAINE 5% 1 PATCH TD SCH (08:50)
[2021-05-17] MEDS: DOCUSATE SODIUM/SENNA 50/8.6MG TAB PO SCH (08:50)
[2021-05-17] MEDS: ACETAMINOPHEN 500 MG TAB PO SCH ×2 (09:00→16:12)
[2021-05-17] MEDS: FERROUS SULFATE 325 MG TAB PO SCH (11:10)
[2021-05-17] MEDS: risperiDONE 0.5 MG TABLET PO SCH (13:48)
--- NOTE | 2021-05-17 15:57 | Hospitalist Progress Note ---
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 Being managed for the following: Hypomagnesemia mag 1.5 today, replete continue oral supplements repeat labs 05/17 We will repeat labs tomorrow Hyponatremia, chronic 132 today has been low since 04/18 urine osm 337, Ur Na 68, serum osm 275 obtain TSH-1.151 Pneumonia Admission CXR - bibasilar infiltration more on the right could be secondary to aspiration versus HCAP Initial lactic acid 3.2---> 1.9, no other signs of sepsis. MRSA screen negative Zosyn 03/12 --> change to Augmentin 03/14 -->Levaquin 03/15 d/t E.cloacae and E. 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 On Ambien. 04/18 - visual and auditory hallucinations, worsening delusions/paranoia. Per psychiatry, tapered Risperdal in favor of trial of Zyprexa 2.5 mg at bedtime. Zyprexa increased to 5 mg at bedtime on 04/22 04/24 - Decrease Zyprexa back to 2.5mg qhs given emergence of side effects (daytime fatigue, flattening of affect and softer speech) at higher dose. May need to consider reducing dopamine agent for Parkinson's to better target psychotic symptoms versus Seroquel trail if symptoms persist on low dose Zyprexa. discussed with psychiatry, stopped Sinemet afternoon dose as it can be driving her psychosis 04/29 - DC zyprexa 05/01-Risperdal had been started 03/24 which was then cross-tapered to Olanzapine which was stopped due to worsening bradykinesia and parkinsonism side effects. Despite understanding that her Sinemet contributes to her paranoia, she would like to have this restarted. 05/02-Sinemet on hold and risperidone restarted. Seems to be more animated on risperdal per psych, continue - as of 05/15/21 Case discussed with psych that recommended to continue current therapy with Risperidone daily and ambien prn Stable CAUTI:Chronic indwelling Cheng catheter History of recurrent UTIs. Patient overdue for follow-up with urology---> Alexandrea BETANCOURT to arrange for outpatient follow-up for management of her chronic Hceng UA was suggestive of infection, 03/12 urine culture Enterobacter cloacae and E. coli. Completed Levaquin. 04/18 - reports burning at Cheng site Repeat urine culture growing Enterobacter cloacae, multidrug-resistant. On meropenem Unclear if true infection or colonization ID consulted -presence of bacteriuria and pyuria expected with an indwelling catheter and has no specificity for UTI. No systemic s/sx of infection. Consider other alternatives for urinary incontinence care. Stop meropenem and observe for signs directly attributable to her infection and urinary tract before restarting. Family and patient refused for cheng catheter removal. Patient with longstanding overflow incontinence issues. Discussed increased risk for UTIs Replaced on 04/24. She refuses removal as there is an issue with frequent urinary incontinence and concern for subsequent skin breakdown, will need monthly changes Outpatient follow-up with urology Chest pain - resolved -Developed chest pain on 03/27 and was transferred to [facility] with telemetry -Troponin negative x2, EKG nonischemic -Reproducible on exam, likely musculoskeletal in nature -Another episode of chest pain on 04/06 evening, EKG and troponin unremarkable No more chest pain Chronic Diastolic CHF pt with episode of decompensated CHF while hospitalized, now resolved -Echo 03/21/2021 -EF 55-60%, grade 2 diastolic dysfunction 03/14 CXR: Mild pulmonary edema. Possible small left pleural effusion 03/14 IV dose of Lasix 03/28 IV Lasix x 1 dose euvolemic today, daily weights pt with trace edema pre tibially today, give lasix 20mg x 1 on 05/15/21 TIA Patient was a stroke alert overnight (03/20-03/21) Likely TIA - involving the right hemisphere with left facial droop yet on imaging has no evidence for a completed event Head and neck CTA, brain MRI unremarkable for acute findings Neurology consulted, input appreciated Do not have sufficient evidence to recommend adding Plavix to her aspirin but will observe her for recurrent events and if they do enlarge then certainly would add another antiplatelet agent Recommend to continue aspirin 81 mg daily, and 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 Fields CMT (Wyugwcf-Ulrbt-Wpqtr disease): S/p multiple lower extremity procedures, most recently s/p left knee closed reduction total knee arthroplasty subluxation on 02/16/2021 - patient is to remain nonweightbearing of the left lower extremity and limited weightbearing on the right lower extremity Narcotics have been stopped-added Tramadol for relief 05/04: she consistently is asking for pain meds and would like some more tonight. Abnormal Left ankle XR Chronic multiple joint pain, more on the left leg 03/15 x-ray left ankle: A 1.8 cm linear ossific density posterior to the talus may represent an avulsion fracture from the dorsal calcaneus. Clinical correlation will be essential. Orthopedic consulted for left calcaneal superior posterior avulsion fracture status post fall: High tide walking boot removed, replaced with a dorsiflexion splint with a negative relief under the left heel and lambs wool padding to provide essentially neutral support for neutral dorsiflexion of the left ankle and heel and foot. Orthopedic recommending may use the walking boot for transfers or ambulating and wheelchair as necessary. Follow-up with outpatient orthopedics. Dr. Crain, [facility] [place] Per patient request, bilateral ankle x-rays ordered on 04/13 - ordered, unchanged, follow up with Dr. Crain Continues to have LLE discomfort. Evaluated by Favio Ford PA-C patient with good ROM but painful. Will have Dr. Layne evaluate later today as well. Considering repeat ankle XR, may benefit from PT/OT if patient desires more frequent ambulation to wheelchair Left knee pain Complaint of left knee pain Knee xray shows intact replacement, no acute abn Continue knee brace and pain med Continue monitor Parkinson disease: Sinemet on hold, cont risperidone Chronic pain: Continue current regimen, minimize escalations in narcotics orthotics consulted for left hand brace - orthotics to get a, "therapy carrott," which is a device that provides gradual ext of fingers overtime. Will need to work with OT, should improve over time. Pt refused this as it was too painful. Pt states she is to have surgery on hand when she returns home at [facility] DVT prophylaxis: SQ Lovenox Disposition:Medically stable; Pt may d/c to home once home made accessible; however CM still pursuing placement. Remains medically stable Admission and Anticipated Discharge Date Admission Date: March 12, 2021 Subjective 05/17/2021 The patient was seen and examined in medical floor She remains stable without any complaints Review of Systems Review of Systems: Unobtainable due to cognitive status Physical Exam Physical Exam: Lying in bed comfortably Constitutional: well developed, well nourished, + ill appearing and + obese Eyes: PERRL, conjunctivae normal, anicteric sclerae ENMT: external ear and nose normal, oropharynx normal Neck: trachea midline, no thyromegaly Respiratory: + respiratory distress and + cough (Minimal cough) Auscultation: + diminished lung sounds and + crackles (Occasional crackles at the bases right more than the left); no wheezes Cardiovascular: Rate/Rhythm: regular rate and regular rhythm; not tachycardic Heart Sounds: normal S1 and normal S2; no murmur Extremities: + edema (Trace edema bilaterally) Gastrointestinal (Abdomen): Inspection/Auscultation: normal bowel sounds; abdomen not distended Percussion/Palpation: abdomen soft; abdomen nontender Musculoskeletal: Has flexion deformities in the left wrist and fingers and left ankle is bandaged Neurologic: Left hemiparesis Lymphatic: no cervical or axillary lymphadenopathy Results & Data Results & Data ([facility]) Vital Signs (Past 12 Hours) Vital Signs Temp Pulse Resp BP Pulse Ox 05/17/21 15:46 36.6 C 63 16 146/79 H 97 05/17/21 08:44 61 139/84 05/17/21 08:08 36.5 C 61 16 129/77 99 Laboratory Results [facility] 05/17/21 05:32 Sodium 135 L Potassium 4.2 Chloride 101 Carbon Dioxide 29 BUN 16 Creatinine 0.57 L Glucose 76 Calcium 9.3 Medications Administered Current Inpatient Medications Acetaminophen (Acetaminophen 500 Mg Tab) 500 mg PO Q8@0000,0800,1600 [facility] Stop: 06/10/21 15:59 Last Admin: 05/17/21 09:00 Dose: 500 mg Documented by: Albuterol (Albut/Ipratrop 3mg/0.5mg Neb 3 Ml Vial) 3 ml NEB Q4R PRN PRN Reason: Shortness Of Breath Or Wheezing Stop: 06/10/21 10:48 Last Admin: 05/16/21 04:35 Dose: 3 ml Documented by: Amlodipine Besylate (Amlodipine Besylate 5 Mg Tab) 5 mg PO QAM [facility] Stop: 06/10/21 12:14 Last Admin: 05/17/21 08:49 Dose: 5 mg Documented by: Aspirin (Aspirin 81 Mg Ectab) 81 mg PO DAILY [facility] Stop: 06/10/21 08:59 Last Admin: 05/17/21 08:48 Dose: 81 mg Documented by: Carbidopa/Levodopa (Carbidopa/Levodopa 25/100mg Tab) 1 tab PO TID [facility] Stop: 05/31/21 13:59 Diclofenac Sodium (Diclofenac Sod 1% Gel 100 Gm Tube) 2 gm EXT Q6 [facility] Stop: 06/10/21 15:29 Last Admin: 05/17/21 11:10 Dose: 2 gm Documented by: Docusate Sodium (Docusate Sodium 100 Mg Cap) 100 mg PO DAILY PRN PRN Reason: Constipation Stop: 06/10/21 16:59 Last Admin: 04/06/21 02:36 Dose: 100 mg Documented by: Ezetimibe (Ezetimibe 10 Mg Tablet) 10 mg PO HS [facility] Stop: 06/10/21 20:59 Last Admin: 05/16/21 19:59 Dose: 10 mg Documented by: Enoxaparin Sodium (Enoxaparin Inj 40 Mg/0.4 Ml Syr) 40 mg SQ Q24H [facility] Stop: 06/10/21 20:59 Last Admin: 05/16/21 19:58 Dose: 40 mg Documented by: Ferrous Sulfate (Ferrous Sulfate 325 Mg Tab) 325 mg PO DAILY@1100 [facility] Stop: 06/10/21 10:59 Last Admin: 05/17/21 11:10 Dose: 325 mg Documented by: Gabapentin (Gabapentin 100 Mg Cap) 200 mg PO TID [facility] Stop: 06/10/21 20:59 Last Admin: 05/17/21 13:47 Dose: 200 mg Documented by: Lactase (Lactase 3000 Unit Tab) 3,000 units PO AC [facility] Stop: 06/10/21 16:59 Last Admin: 05/17/21 11:10 Dose: 3,000 units Documented by: Lactobacillus Acidoph/Casei/Rhamnos (Advanced Probiotic 1250 Mg Capsule) 2 cap PO DAILY [facility] Stop: 06/10/21 14:29 Last Admin: 05/17/21 08:49 Dose: 2 cap Documented by: Lamotrigine (Lamotrigine 25 Mg Tab) 75 mg PO HS [facility] Stop: 06/10/21 20:59 Last Admin: 05/16/21 20:00 Dose: 75 mg Documented by: Lidocaine (Lidocaine 5% 1 Patch) 1 patch TD DAILY [facility] Stop: 06/10/21 08:59 Last Admin: 05/17/21 08:50 Dose: 1 patch Documented by: Magnesium Oxide (Magnesium Oxide 400 Mg Tab) 400 mg PO BID [facility] Stop: 06/10/21 20:59 Last Admin: 05/17/21 08:46 Dose: 400 mg Documented by: Metoprolol Tartrate (Metoprolol Tartrate 25 Mg Tab) 25 mg PO BID [facility] Stop: 06/10/21 20:24 Last Admin: 05/17/21 08:45 Dose: 25 mg Documented by: Miscellaneous (Remove Lidoderm Patch) 1 ea N/A 2100 [facility] Stop: 06/13/21 20:59 Last Admin: 05/16/21 20:49 Dose: 1 ea Documented by: Nitroglycerin (Nitroglycerin Sl 0.4 Mg/Tab Tab) 0.4 mg SL PRN PRN PRN Reason: Chest Pain Stop: 06/10/21 21:40 Last Admin: 04/22/21 22:16 Dose: 0.4 mg Documented by: Ondansetron HCl (Ondansetron Inj 2 Mg/Ml 2 Ml Vial) 4 mg IV Q8H PRN PRN Reason: Nausea And Vomiting Stop: 06/01/21 18:12 Last Admin: 05/16/21 10:14 Dose: 4 mg Documented by: Pantoprazole Sodium (Pantoprazole 40 Mg Tab) 40 mg PO DAILY [facility] Stop: 06/10/21 08:59 Last Admin: 05/17/21 08:47 Dose: 40 mg Documented by: Polyethylene Glycol (Polyethylene (Miralax) 17 Gm Pack) 17 gm PO DAILY PRN PRN Reason: Constipation Stop: 06/10/21 04:42 Last Admin: 05/08/21 09:30 Dose: 17 gm Documented by: Potassium Chloride (Potassium Chloride 10 Meq Tabcr) 10 meq PO BID [facility] Stop: 06/10/21 20:59 Last Admin: 05/17/21 08:46 Dose: 10 meq Documented by: Risperidone (Risperidone 0.5 Mg Tablet) 0.5 mg PO TODAY@1400 [facility] Stop: 06/01/21 13:59 Last Admin: 05/17/21 13:48 Dose: 0.5 mg Documented by: Senna/Docusate Sodium (Docusate Sodium/Senna 50/8.6mg Tab) 1 tab PO QAM [facility] Stop: 06/10/21 04:44 Last Admin: 05/17/21 08:50 Dose: 1 tab Documented by: Tramadol HCl (Tramadol Hcl 50 Mg Tablet) 50 mg PO Q6H PRN PRN Reason: Pain (6-10) Stop: 06/01/21 18:23 Last Admin: 05/16/21 19:57 Dose: 50 mg Documented by: Zolpidem Tartrate (Zolpidem Tartrate 5 Mg Tab) 5 mg PO HS PRN PRN Reason: Sleep Stop: 06/05/21 21:55 Last Admin: 05/16/21 21:48 Dose: 5 mg Documented by:
[2021-05-17] MEDS: POLYETHYLENE (MIRALAX) 17 GM PACK PO PRN (20:42)
[2021-05-17] MEDS: traMADol HCL 50 MG TABLET PO PRN (20:42)
[2021-05-17] MEDS: ENOXAPARIN INJ 40 MG/0.4 ML SYR SQ SCH (20:45)
[2021-05-17] MEDS: EZETIMIBE 10 MG TABLET PO SCH (20:46)
[2021-05-17] MEDS: lamoTRIgine 25 MG TAB PO SCH (20:46)
[2021-05-17] MEDS: ZOLPIDEM TARTRATE 5 MG TAB PO PRN (21:41)
[2021-05-18] MEDS: DICLOFENAC SOD 1% GEL 100 GM TUBE EXT SCH ×4 (00:30→18:02)
[2021-05-18] MEDS: ACETAMINOPHEN 500 MG TAB PO SCH ×3 (00:30→16:55)
[2021-05-18 06:31] LABS: BUN Creatinine Ratio 32.7 (10-20); Calcium 9.1 mg/dl (8.5-10.1); Creatinine Clr Calc Pharmacy 96.6 ml/min; Est GFR (African American) 110.5 ml/min; Est GFR (Non-African American) 95.3 ml/min; Potassium 3.9 mmol/L (3.5-5.1)
[2021-05-18 06:57] LABS: Basophils # (auto) 0.03 K/uL (0-0.2); Basophils % (auto) 0.5 %; Eosinophils # (auto) 0.26 K/uL (0-0.5); Eosinophils % (auto) 3.9 %; Hematocrit (blood only) 35.2 % (37-47); Hemoglobin 11.3 g/dL (12.0-16.0); Immature Granulocytes # (auto) 0.01 K/uL (0.00-0.02); Immature Granulocytes % (auto) 0.2 %; Lymphocytes # (auto) 2.52 K/uL (1.2-3.4); Mean Corpuscular Hemoglobin 27.7 pg (25-34); Mean Corpuscular Hgb Conc 32.1 g/dL (32-36); Mean Corpuscular Volume 86.3 fL (80-100); Mean Platelet Volume 10.2 fL (7.4-10.4); Monocytes # (auto) 0.64 K/uL (0.11-0.59); Monocytes % (auto) 9.6 %; Neutrophils # (auto) 3.18 K/uL (1.4-6.5); Neutrophils % (auto) 47.8 %; Platelet Count 263 K/uL (130-400); RDW Coefficient of Variation 13.6 % (11.5-14.5); RDW Standard Deviation 43.2 fL (36.4-46.3); Red Blood Count 4.08 M/uL (4.2-5.4); White Blood Count 6.64 K/uL (4.8-10.8)
[2021-05-18] MEDS: LACTASE 3000 UNIT TAB PO SCH ×3 (07:55→16:55)
[2021-05-18] MEDS: GABAPENTIN 100 MG CAP PO SCH ×3 (08:54→21:33)
[2021-05-18] MEDS: ASPIRIN 81 MG ECTAB PO SCH (08:54)
[2021-05-18] MEDS: MAGNESIUM OXIDE 400 MG TAB PO SCH ×2 (08:54→21:33)
[2021-05-18] MEDS: POTASSIUM CHLORIDE 10 MEQ TABCR PO SCH ×2 (08:54→21:33)
[2021-05-18] MEDS: METOPROLOL TARTRATE 25 MG TAB PO SCH ×2 (08:54→21:32)
[2021-05-18] MEDS: ADVANCED PROBIOTIC 1250 MG CAPSULE PO SCH (08:55)
[2021-05-18] MEDS: PANTOprazole 40 MG TAB PO SCH (08:55)
[2021-05-18] MEDS: DOCUSATE SODIUM/SENNA 50/8.6MG TAB PO SCH (08:55)
[2021-05-18] MEDS: amLODIPine BESYLATE 5 MG TAB PO SCH (08:55)
[2021-05-18] MEDS: LIDOCAINE 5% 1 PATCH TD SCH (08:58)
[2021-05-18] MEDS: ONDANSETRON INJ 2 MG/ML 2 ML VIAL IV PRN (11:08)
[2021-05-18] MEDS: traMADol HCL 50 MG TABLET PO PRN ×2 (11:08→21:22)
[2021-05-18] MEDS: FERROUS SULFATE 325 MG TAB PO SCH (12:18)
[2021-05-18] MEDS: risperiDONE 0.5 MG TABLET PO SCH (13:22)
--- NOTE | 2021-05-18 17:11 | Hospitalist Progress Note ---
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 Being managed for the following: Hypomagnesemia mag 1.5 today, replete continue oral supplements repeat labs 05/17 We will repeat labs tomorrow-1.6 Hyponatremia, chronic 132 today has been low since 04/18 urine osm 337, Ur Na 68, serum osm 275 obtain TSH-1.151 Sodium is 131-we will advised to have extra salt in diet Pneumonia Admission CXR - bibasilar infiltration more on the right could be secondary to aspiration versus HCAP Initial lactic acid 3.2---> 1.9, no other signs of sepsis. MRSA screen negative Zosyn 03/12 --> change to Augmentin 03/14 -->Levaquin 03/15 d/t E.cloacae and E. 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 On Ambien. 04/18 - visual and auditory hallucinations, worsening delusions/paranoia. Per psychiatry, tapered Risperdal in favor of trial of Zyprexa 2.5 mg at bedtime. Zyprexa increased to 5 mg at bedtime on 04/22 04/24 - Decrease Zyprexa back to 2.5mg qhs given emergence of side effects (daytime fatigue, flattening of affect and softer speech) at higher dose. May need to consider reducing dopamine agent for Parkinson's to better target psychotic symptoms versus Seroquel trail if symptoms persist on low dose Zyprexa. discussed with psychiatry, stopped Sinemet afternoon dose as it can be driving her psychosis 04/29 - DC zyprexa 05/01-Risperdal had been started 03/24 which was then cross-tapered to Olanzapine which was stopped due to worsening bradykinesia and parkinsonism side effects. Despite understanding that her Sinemet contributes to her paranoia, she would like to have this restarted. 05/02-Sinemet on hold and risperidone restarted. Seems to be more animated on risperdal per psych, continue - as of 05/15/21 Case discussed with psych that recommended to continue current therapy with Risperidone daily and ambien prn Stable CAUTI:Chronic indwelling Cheng catheter History of recurrent UTIs. Patient overdue for follow-up with urology---> Alexandrea BETANCOURT to arrange for outpatient follow-up for management of her chronic Cheng UA was suggestive of infection, 03/12 urine culture Enterobacter cloacae and E. coli. Completed Levaquin. 04/18 - reports burning at Cheng site Repeat urine culture growing Enterobacter cloacae, multidrug-resistant. On meropenem Unclear if true infection or colonization ID consulted -presence of bacteriuria and pyuria expected with an indwelling catheter and has no specificity for UTI. No systemic s/sx of infection. Consider other alternatives for urinary incontinence care. Stop meropenem and observe for signs directly attributable to her infection and urinary tract before restarting. Family and patient refused for cheng catheter removal. Patient with longstanding overflow incontinence issues. Discussed increased risk for UTIs Replaced on 04/24. She refuses removal as there is an issue with frequent urinary incontinence and concern for subsequent skin breakdown, will need monthly changes Outpatient follow-up with urology Chest pain - resolved -Developed chest pain on 03/27 and was [facility] -Troponin negative x2, EKG nonischemic -Reproducible on exam, likely musculoskeletal in nature -Another episode of chest pain on 04/06 evening, EKG and troponin unremarkable No more chest pain Chronic Diastolic CHF pt with episode of decompensated CHF while hospitalized, now resolved -Echo 03/21/2021 -EF 55-60%, grade 2 diastolic dysfunction 03/14 CXR: Mild pulmonary edema. Possible small left pleural effusion 03/14 IV dose of Lasix 03/28 IV Lasix x 1 dose euvolemic today, daily weights pt with trace edema pre tibially today, give lasix 20mg x 1 on 05/15/21 No evidence of hypervolemia TIA Patient was a stroke alert overnight (03/20-03/21) Likely TIA - involving the right hemisphere with left facial droop yet on imaging has no evidence for a completed event Head and neck CTA, brain MRI unremarkable for acute findings Neurology consulted, input appreciated Do not have sufficient evidence to recommend adding Plavix to her aspirin but will observe her for recurrent events and if they do enlarge then certainly would add another antiplatelet agent Recommend to continue aspirin 81 mg daily, and 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 Fields CMT (Xlquvnp-Cgxqo-Bzyiu disease): S/p multiple lower extremity procedures, most recently s/p left knee closed reduction total knee arthroplasty subluxation on 02/16/2021 - patient is to remain nonweightbearing of the left lower extremity and limited weightbearing on the right lower extremity Narcotics have been stopped-added Tramadol for relief 05/04: she consistently is asking for pain meds and would like some more tonight. Abnormal Left ankle XR Chronic multiple joint pain, more on the left leg 03/15 x-ray left ankle: A 1.8 cm linear ossific density posterior to the talus may represent an avulsion fracture from the dorsal calcaneus. Clinical correlation will be essential. Orthopedic consulted for left calcaneal superior posterior avulsion fracture status post fall: High tide walking boot removed, replaced with a dorsiflexion splint with a negative relief under the left heel and lambs wool padding to provide essentially neutral support for neutral dorsiflexion of the left ankle and heel and foot. Orthopedic recommending may use the walking boot for transfers or ambulating and wheelchair as necessary. Follow-up with outpatient orthopedics. Dr. Crain, [facility] Per patient request, bilateral ankle x-rays ordered on 04/13 - ordered, unchanged, follow up with Dr. Crain Continues to have LLE discomfort. Evaluated by Favio Ford PA-C patient with good ROM but painful. Will have Dr. Barter evaluate later today as well. Considering repeat ankle XR, may benefit from PT/OT if patient desires more frequent ambulation to wheelchair Left knee pain Complaint of left knee pain Knee xray shows intact replacement, no acute abn Continue knee brace and pain med Continue monitor Parkinson disease: Sinemet on hold, cont risperidone Chronic pain: Continue current regimen, minimize escalations in narcotics orthotics consulted for left hand brace - orthotics to get a, "therapy carrott," which is a device that provides gradual ext of fingers overtime. Will need to work with OT, should improve over time. Pt refused this as it was too painful. Pt states she is to have surgery on hand when she returns home at [facility] DVT prophylaxis: SQ Lovenox Disposition:Medically stable; Pt may d/c to home once home made accessible; however CM still pursuing placement. Remains medically stable Admission and Anticipated Discharge Date Admission Date: March 12, 2021 Subjective 05/17/2021 The patient was seen and examined in medical floor She remains stable without any complaints 05/18/2021 The patient was seen and examined in medical floor She complains to have some pain in the left ankle and left wrist which has been ongoing Denies any chest pain, palpitation or shortness of breath Review of Systems Review of Systems: All systems reviewed and are unremarkable except as noted below Physical Exam Physical Exam: Lying in bed comfortably Constitutional: well developed, well nourished, + ill appearing and + obese Eyes: PERRL, conjunctivae normal, anicteric sclerae ENMT: external ear and nose normal, oropharynx normal Neck: trachea midline, no thyromegaly Respiratory: + respiratory distress and + cough (Minimal cough) Auscultation: + diminished lung sounds and + crackles (Occasional crackles at the bases right more than the left); no wheezes Cardiovascular: Rate/Rhythm: regular rate and regular rhythm; not tachycardic Heart Sounds: normal S1 and normal S2; no murmur Extremities: + edema (Trace edema bilaterally) Gastrointestinal (Abdomen): Inspection/Auscultation: normal bowel sounds; abdomen not distended Percussion/Palpation: abdomen soft; abdomen nontender Musculoskeletal: Has deformities involving the left wrist and hand and also left foot secondary to Charcot's Tanja tooth disease Neurologic: Alert and awake. Generally weak Lymphatic: no cervical or axillary lymphadenopathy Results & Data Results & Data ([facility]) Vital Signs (Past 12 Hours) Vital Signs Temp Pulse Pulse Resp BP Pulse Ox 05/18/21 15:31 36.6 C 60 16 138/66 95 05/18/21 11:00 36.6 C 70 14 144/80 H 98 05/18/21 07:30 36.7 C 62 12 130/80 99 Laboratory Results Short CBC 05/18/21 Range/Units 05:42 WBC 6.64 (4.8-10.8) K/uL Hgb 11.3 L (12.0-16.0) g/dL Hct 35.2 L (37-47) % Plt Count 263 (130-400) K/uL BMP 05/18/21 05:42 Sodium 131 L Potassium 3.9 Chloride 98 Carbon Dioxide 27 BUN 16 Creatinine 0.49 L Glucose 89 Calcium 9.1 Medications Administered Current Inpatient Medications Acetaminophen (Acetaminophen 500 Mg Tab) 500 mg PO Q8@0000,0800,1600 [facility] Stop: 06/10/21 15:59 Last Admin: 05/18/21 16:55 Dose: 500 mg Documented by: Albuterol (Albut/Ipratrop 3mg/0.5mg Neb 3 Ml Vial) 3 ml NEB Q4R PRN PRN Reason: Shortness Of Breath Or Wheezing Stop: 06/10/21 10:48 Last Admin: 05/16/21 04:35 Dose: 3 ml Documented by: Amlodipine Besylate (Amlodipine Besylate 5 Mg Tab) 5 mg PO QAM [facility] Stop: 06/10/21 12:14 Last Admin: 05/18/21 08:55 Dose: 5 mg Documented by: Aspirin (Aspirin 81 Mg Ectab) 81 mg PO DAILY [facility] Stop: 06/10/21 08:59 Last Admin: 05/18/21 08:54 Dose: 81 mg Documented by: Carbidopa/Levodopa (Carbidopa/Levodopa 25/100mg Tab) 1 tab PO TID [facility] Stop: 05/31/21 13:59 Diclofenac Sodium (Diclofenac Sod 1% Gel 100 Gm Tube) 2 gm EXT Q6 [facility] Stop: 06/10/21 15:29 Last Admin: 05/18/21 13:22 Dose: 2 gm Documented by: Docusate Sodium (Docusate Sodium 100 Mg Cap) 100 mg PO DAILY PRN PRN Reason: Constipation Stop: 06/10/21 16:59 Last Admin: 04/06/21 02:36 Dose: 100 mg Documented by: Ezetimibe (Ezetimibe 10 Mg Tablet) 10 mg PO HS [facility] Stop: 06/10/21 20:59 Last Admin: 05/17/21 20:46 Dose: 10 mg Documented by: Enoxaparin Sodium (Enoxaparin Inj 40 Mg/0.4 Ml Syr) 40 mg SQ Q24H [facility] Stop: 06/10/21 20:59 Last Admin: 05/17/21 20:45 Dose: 40 mg Documented by: Ferrous Sulfate (Ferrous Sulfate 325 Mg Tab) 325 mg PO DAILY@1100 [facility] Stop: 06/10/21 10:59 Last Admin: 05/18/21 12:18 Dose: Not Given Documented by: Gabapentin (Gabapentin 100 Mg Cap) 200 mg PO TID [facility] Stop: 06/10/21 20:59 Last Admin: 05/18/21 13:22 Dose: 200 mg Documented by: Lactase (Lactase 3000 Unit Tab) 3,000 units PO AC [facility] Stop: 06/10/21 16:59 Last Admin: 05/18/21 16:55 Dose: 3,000 units Documented by: Lactobacillus Acidoph/Casei/Rhamnos (Advanced Probiotic 1250 Mg Capsule) 2 cap PO DAILY [facility] Stop: 06/10/21 14:29 Last Admin: 05/18/21 08:55 Dose: 2 cap Documented by: Lamotrigine (Lamotrigine 25 Mg Tab) 75 mg PO HS [facility] Stop: 06/10/21 20:59 Last Admin: 05/17/21 20:46 Dose: 75 mg Documented by: Lidocaine (Lidocaine 5% 1 Patch) 1 patch TD DAILY [facility] Stop: 06/10/21 08:59 Last Admin: 05/18/21 08:58 Dose: 1 patch Documented by: Magnesium Oxide (Magnesium Oxide 400 Mg Tab) 400 mg PO BID [facility] Stop: 06/10/21 20:59 Last Admin: 05/18/21 08:54 Dose: 400 mg Documented by: Metoprolol Tartrate (Metoprolol Tartrate 25 Mg Tab) 25 mg PO BID [facility] Stop: 06/10/21 20:24 Last Admin: 05/18/21 08:54 Dose: 25 mg Documented by: Miscellaneous (Remove Lidoderm Patch) 1 ea N/A 2100 [facility] Stop: 06/13/21 20:59 Last Admin: 05/17/21 20:46 Dose: 1 ea Documented by: Nitroglycerin (Nitroglycerin Sl 0.4 Mg/Tab Tab) 0.4 mg SL PRN PRN PRN Reason: Chest Pain Stop: 06/10/21 21:40 Last Admin: 04/22/21 22:16 Dose: 0.4 mg Documented by: Ondansetron HCl (Ondansetron Inj 2 Mg/Ml 2 Ml Vial) 4 mg IV Q8H PRN PRN Reason: Nausea And Vomiting Stop: 06/01/21 18:12 Last Admin: 05/18/21 11:08 Dose: 4 mg Documented by: Pantoprazole Sodium (Pantoprazole 40 Mg Tab) 40 mg PO DAILY [facility] Stop: 06/10/21 08:59 Last Admin: 05/18/21 08:55 Dose: 40 mg Documented by: Polyethylene Glycol (Polyethylene (Miralax) 17 Gm Pack) 17 gm PO DAILY PRN PRN Reason: Constipation Stop: 06/10/21 04:42 Last Admin: 05/17/21 20:42 Dose: 17 gm Documented by: Potassium Chloride (Potassium Chloride 10 Meq Tabcr) 10 meq PO BID [facility] Stop: 06/10/21 20:59 Last Admin: 05/18/21 08:54 Dose: 10 meq Documented by: Risperidone (Risperidone 0.5 Mg Tablet) 0.5 mg PO TODAY@1400 [facility] Stop: 06/01/21 13:59 Last Admin: 05/18/21 13:22 Dose: 0.5 mg Documented by: Senna/Docusate Sodium (Docusate Sodium/Senna 50/8.6mg Tab) 1 tab PO QAM [facility] Stop: 06/10/21 04:44 Last Admin: 05/18/21 08:55 Dose: 1 tab Documented by: Tramadol HCl (Tramadol Hcl 50 Mg Tablet) 50 mg PO Q6H PRN PRN Reason: Pain (6-10) Stop: 06/01/21 18:23 Last Admin: 05/18/21 11:08 Dose: 50 mg Documented by: Zolpidem Tartrate (Zolpidem Tartrate 5 Mg Tab) 5 mg PO HS PRN PRN Reason: Sleep Stop: 06/05/21 21:55 Last Admin: 01/20/22 21:41 Dose: 5 mg Documented by:
[2021-05-18] MEDS: ZOLPIDEM TARTRATE 5 MG TAB PO PRN (21:22)
[2021-05-18] MEDS: ENOXAPARIN INJ 40 MG/0.4 ML SYR SQ SCH (21:32)
[2021-05-18] MEDS: lamoTRIgine 25 MG TAB PO SCH (21:33)
[2021-05-18] MEDS: EZETIMIBE 10 MG TABLET PO SCH (21:33)
[2021-05-19] MEDS: DICLOFENAC SOD 1% GEL 100 GM TUBE EXT SCH ×5 (00:07→23:57)
[2021-05-19] MEDS: ACETAMINOPHEN 500 MG TAB PO SCH ×4 (00:08→23:56)
[2021-05-19] MEDS: traMADol HCL 50 MG TABLET PO PRN ×3 (06:39→20:24)
[2021-05-19] MEDS: LIDOCAINE 5% 1 PATCH TD SCH (08:53)
[2021-05-19] MEDS: GABAPENTIN 100 MG CAP PO SCH ×3 (08:58→20:26)
[2021-05-19] MEDS: ASPIRIN 81 MG ECTAB PO SCH (08:59)
[2021-05-19] MEDS: PANTOprazole 40 MG TAB PO SCH (08:59)
[2021-05-19] MEDS: METOPROLOL TARTRATE 25 MG TAB PO SCH ×2 (08:59→20:27)
[2021-05-19] MEDS: POTASSIUM CHLORIDE 10 MEQ TABCR PO SCH ×2 (09:00→20:25)
[2021-05-19] MEDS: LACTASE 3000 UNIT TAB PO SCH ×3 (09:00→17:05)
[2021-05-19] MEDS: MAGNESIUM OXIDE 400 MG TAB PO SCH ×2 (09:00→20:25)
[2021-05-19] MEDS: ADVANCED PROBIOTIC 1250 MG CAPSULE PO SCH (09:00)
[2021-05-19] MEDS: DOCUSATE SODIUM/SENNA 50/8.6MG TAB PO SCH (09:01)
[2021-05-19] MEDS: amLODIPine BESYLATE 5 MG TAB PO SCH (09:01)
[2021-05-19] MEDS: FERROUS SULFATE 325 MG TAB PO SCH (11:59)
--- NOTE | 2021-05-19 14:30 | Hospitalist Progress Note ---
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 Being managed for the following: Remains medically stable and awaiting placement Left knee pain , pain in left wrist and also right ankle Complaint of left knee pain Knee xray shows intact replacement, no acute abn Continue knee brace and pain med We will try local diclofenac gel Pneumonia Admission CXR - bibasilar infiltration more on the right could be secondary to aspiration versus HCAP Initial lactic acid 3.2---> 1.9, no other signs of sepsis. MRSA screen negative Zosyn 03/12 --> change to Augmentin 03/14 -->Levaquin 03/15 d/t E.cloacae and E. 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 On Ambien. 04/18 - visual and auditory hallucinations, worsening delusions/paranoia. Per psychiatry, tapered Risperdal in favor of trial of Zyprexa 2.5 mg at bedtime. Zyprexa increased to 5 mg at bedtime on 04/22 04/24 - Decrease Zyprexa back to 2.5mg qhs given emergence of side effects (daytime fatigue, flattening of affect and softer speech) at higher dose. May need to consider reducing dopamine agent for Parkinson's to better target ps ychotic symptoms versus Seroquel trail if symptoms persist on low dose Zyprexa. discussed with psychiatry, stopped Sinemet afternoon dose as it can be driving her psychosis 04/29 - DC zyprexa 05/01-Risperdal had been started 03/24 which was then cross-tapered to Olanzapine which was stopped due to worsening bradykinesia and parkinsonism side effects. Despite understanding that her Sinemet contributes to her paranoia, she would like to have this restarted. 05/02-Sinemet on hold and risperidone restarted. Seems to be more animated on risperdal per psych, continue - as of 05/15/21 Case discussed with psych that recommended to continue current therapy with Risperidone daily and ambien prn Stable CAUTI:Chronic indwelling Cheng catheter History of recurrent UTIs. Patient overdue for follow-up with urology---> Alexandrea BETANCOURT to arrange for outpatient follow-up for management of her chronic Cheng UA was suggestive of infection, 03/12 urine culture Enterobacter cloacae and E. coli. Completed Levaquin. 04/18 - reports burning at Cheng site Repeat urine culture growing Enterobacter cloacae, multidrug-resistant. On meropenem Unclear if true infection or colonization ID consulted -presence of bacteriuria and pyuria expected with an indwelling catheter and has no specificity for UTI. No systemic s/sx of infection. Consider other alternatives for urinary incontinence care. Stop meropenem and observe for signs directly attributable to her infection and urinary tract before restarting. Family and patient refused for cheng catheter removal. Patient with longstanding overflow incontinence issues. Discussed increased risk for UTIs Replaced on 04/24. She refuses removal as there is an issue with frequent urinary incontinence and concern for subsequent skin breakdown, will need monthly changes Outpatient follow-up with urology Chest pain - resolved -Developed chest pain on 03/27 and was transferred to [facility] with telemetry -Troponin negative x2, EKG nonischemic -Reproducible on exam, likely musculoskeletal in nature -Another episode of chest pain on 04/06 evening, EKG and troponin unremarkable No more chest pain Chronic Diastolic CHF pt with episode of decompensated CHF while hospitalized, now resolved -Echo 03/21/2021 -EF 55-60%, grade 2 diastolic dysfunction 03/14 CXR: Mild pulmonary edema. Possible small left pleural effusion 03/14 IV dose of Lasix 03/28 IV Lasix x 1 dose euvolemic today, daily weights pt with trace edema pre tibially today, give lasix 20mg x 1 on 05/15/21 No evidence of hypervolemia TIA Patient was a stroke alert overnight (03/20-03/21) Likely TIA - involving the right hemisphere with left facial droop yet on imaging has no evidence for a completed event Head and neck CTA, brain MRI unremarkable for acute findings Neurology consulted, input appreciated Do not have sufficient evidence to recommend adding Plavix to her aspirin but will observe her for recurrent events and if they do enlarge then certainly would add another antiplatelet agent Recommend to continue aspirin 81 mg daily, and 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 Fields [facility] (Rjlvamw-Yhmnq-Imvjy disease): S/p multiple lower extremity procedures, most recently s/p left knee closed reduction total knee arthroplasty subluxation on 02/16/2021 - patient is to remain nonweightbearing of the left lower extremity and limited weightbearing on the right lower extremity Narcotics have been stopped-added Tramadol for relief 05/04: she consistently is asking for pain meds and would like some more tonight. Abnormal Left ankle XR Chronic multiple joint pain, more on the left leg 03/15 x-ray left ankle: A 1.8 cm linear ossific density posterior to the talus may represent an avulsion fracture from the dorsal calcaneus. Clinical correlation will be essential. Orthopedic consulted for left calcaneal superior posterior avulsion fracture status post fall: High tide walking boot removed, replaced with a dorsiflexion splint with a negative relief under the left heel and lambs wool padding to provide essentially neutral support for neutral dorsiflexion of the left ankle and heel and foot. Orthopedic recommending may use the walking boot for transfers or ambulating and wheelchair as necessary. Follow-up with outpatient orthopedics. Dr. Crain, [facility] Per patient request, bilateral ankle x-rays ordered on 04/13 - ordered, unchanged, follow up with Dr. Crain Continues to have LLE discomfort. Evaluated by Favio Ford PA-C patient with good ROM but painful. Will have Dr. Layne evaluate later today as well. Considering repeat ankle XR, may benefit from PT/OT if patient desires more frequent ambulation to wheelchair Parkinson disease: Sinemet on hold, cont risperidone Chronic pain: Continue current regimen, minimize escalations in narcotics orthotics consulted for left hand brace - orthotics to get a, "therapy carrott," which is a device that provides gradual ext of fingers overtime. Will need to work with OT, should improve over time. Pt refused this as it was too painful. Pt states she is to have surgery on hand when she returns home at [facility] Pressure ulcer of left buttock, stage 2, now healed, not POA As per wound care management DVT prophylaxis: SQ Lovenox Disposition:Medically stable; Pt may d/c to home once home made accessible; however CM still pursuing placement. Remains medically stable Admission and Anticipated Discharge Date Admission Date: March 12, 2021 Subjective 05/17/2021 The patient was seen and examined in medical floor She remains stable without any complaints 05/18/2021 The patient was seen and examined in medical floor She complains to have some pain in the left ankle and left wrist which has been ongoing Denies any chest pain, palpitation or shortness of breath 05/19/2021 The patient was seen and examined in medical floor She remains stable and complains to have nonspecific pain involving the left wrist left knee and both ankles Denies any shortness of breath Review of Systems Review of Systems: All systems reviewed and are unremarkable except as noted below Physical Exam Physical Exam: Lying in bed comfortably Constitutional: well developed, well nourished, + ill appearing and + obese Eyes: PERRL, conjunctivae normal, anicteric sclerae ENMT: external ear and nose normal, oropharynx normal Neck: trachea midline, no thyromegaly Respiratory: + respiratory distress and + cough (Minimal cough) Auscultation: + diminished lung sounds and + crackles (Occasional crackles at the bases right more than the left); no wheezes Cardiovascular: Rate/Rhythm: regular rate and regular rhythm; not tachycardic Heart Sounds: normal S1 and normal S2; no murmur Extremities: + edema (Trace edema bilaterally) Gastrointestinal (Abdomen): Inspection/Auscultation: normal bowel sounds; abdomen not distended Percussion/Palpation: abdomen soft; abdomen nontender Musculoskeletal: Has deformities involving the left wrist and both ankles secondary to Charcot's Tanja tooth disease Neurologic: She is alert, awake and oriented. Generalized weakness and is bedbound status Lymphatic: no cervical or axillary lymphadenopathy Results & Data Results & Data ([facility]) Vital Signs (Past 12 Hours) Vital Signs Temp Pulse Resp BP Pulse Ox 05/19/21 08:19 36.7 C 58 L 16 135/75 99 Medications Administered Current Inpatient Medications Acetaminophen (Acetaminophen 500 Mg Tab) 500 mg PO Q8@0000,0800,1600 [facility] Stop: 06/10/21 15:59 Last Admin: 05/19/21 09:12 Dose: 500 mg Documented by: Albuterol (Albut/Ipratrop 3mg/0.5mg Neb 3 Ml Vial) 3 ml NEB Q4R PRN PRN Reason: Shortness Of Breath Or Wheezing Stop: 06/10/21 10:48 Last Admin: 05/16/21 04:35 Dose: 3 ml Documented by: Amlodipine Besylate (Amlodipine Besylate 5 Mg Tab) 5 mg PO QAM [facility] Stop: 06/10/21 12:14 Last Admin: 05/19/21 09:01 Dose: 5 mg Documented by: Aspirin (Aspirin 81 Mg Ectab) 81 mg PO DAILY [facility] Stop: 06/10/21 08:59 Last Admin: 05/19/21 08:59 Dose: 81 mg Documented by: Carbidopa/Levodopa (Carbidopa/Levodopa 25/100mg Tab) 1 tab PO TID [facility] Stop: 05/31/21 13:59 Diclofenac Sodium (Diclofenac Sod 1% Gel 100 Gm Tube) 2 gm EXT Q6 [facility] Stop: 06/10/21 15:29 Last Admin: 05/19/21 11:59 Dose: 2 gm Documented by: Docusate Sodium (Docusate Sodium 100 Mg Cap) 100 mg PO DAILY PRN PRN Reason: Constipation Stop: 06/10/21 16:59 Last Admin: 04/06/21 02:36 Dose: 100 mg Documented by: Ezetimibe (Ezetimibe 10 Mg Tablet) 10 mg PO HS [facility] Stop: 06/10/21 20:59 Last Admin: 05/18/21 21:33 Dose: 10 mg Documented by: Enoxaparin Sodium (Enoxaparin Inj 40 Mg/0.4 Ml Syr) 40 mg SQ Q24H [facility] Stop: 06/10/21 20:59 Last Admin: 05/18/21 21:32 Dose: 40 mg Documented by: Ferrous Sulfate (Ferrous Sulfate 325 Mg Tab) 325 mg PO DAILY@1100 [facility] Stop: 06/10/21 10:59 Last Admin: 05/19/21 11:59 Dose: 325 mg Documented by: Gabapentin (Gabapentin 100 Mg Cap) 200 mg PO TID [facility] Stop: 06/10/21 20:59 Last Admin: 05/19/21 08:58 Dose: 200 mg Documented by: Lactase (Lactase 3000 Unit Tab) 3,000 units PO AC [facility] Stop: 06/10/21 16:59 Last Admin: 05/19/21 11:59 Dose: 3,000 units Documented by: Lactobacillus Acidoph/Casei/Rhamnos (Advanced Probiotic 1250 Mg Capsule) 2 cap PO DAILY [facility] Stop: 06/10/21 14:29 Last Admin: 05/19/21 09:00 Dose: 2 cap Documented by: Lamotrigine (Lamotrigine 25 Mg Tab) 75 mg PO HS [facility] Stop: 06/10/21 20:59 Last Admin: 05/18/21 21:33 Dose: 75 mg Documented by: Lidocaine (Lidocaine 5% 1 Patch) 1 patch TD DAILY [facility] Stop: 06/10/21 08:59 Last Admin: 05/19/21 08:53 Dose: 1 patch Documented by: Magnesium Oxide (Magnesium Oxide 400 Mg Tab) 400 mg PO BID [facility] Stop: 06/10/21 20:59 Last Admin: 05/19/21 09:00 Dose: 400 mg Documented by: Metoprolol Tartrate (Metoprolol Tartrate 25 Mg Tab) 25 mg PO BID [facility] Stop: 06/10/21 20:24 Last Admin: 05/19/21 08:59 Dose: 25 mg Documented by: Miscellaneous (Remove Lidoderm Patch) 1 ea N/A 2100 [facility] Stop: 06/13/21 20:59 Last Admin: 05/18/21 21:33 Dose: 1 ea Documented by: Nitroglycerin (Nitroglycerin Sl 0.4 Mg/Tab Tab) 0.4 mg SL PRN PRN PRN Reason: Chest Pain Stop: 06/10/21 21:40 Last Admin: 04/22/21 22:16 Dose: 0.4 mg Documented by: Ondansetron HCl (Ondansetron Inj 2 Mg/Ml 2 Ml Vial) 4 mg IV Q8H PRN PRN Reason: Nausea And Vomiting Stop: 06/01/21 18:12 Last Admin: 05/18/21 11:08 Dose: 4 mg Documented by: Pantoprazole Sodium (Pantoprazole 40 Mg Tab) 40 mg PO DAILY [facility] Stop: 06/10/21 08:59 Last Admin: 05/19/21 08:59 Dose: 40 mg Documented by: Polyethylene Glycol (Polyethylene (Miralax) 17 Gm Pack) 17 gm PO DAILY PRN PRN Reason: Constipation Stop: 06/10/21 04:42 Last Admin: 05/17/21 20:42 Dose: 17 gm Documented by: Potassium Chloride (Potassium Chloride 10 Meq Tabcr) 10 meq PO BID [facility] Stop: 06/10/21 20:59 Last Admin: 05/19/21 09:00 Dose: 10 meq Documented by: Risperidone (Risperidone 0.5 Mg Tablet) 0.5 mg PO TODAY@1400 [facility] Stop: 06/01/21 13:59 Last Admin: 05/18/21 13:22 Dose: 0.5 mg Documented by: Senna/Docusate Sodium (Docusate Sodium/Senna 50/8.6mg Tab) 1 tab PO QAM [facility] Stop: 06/10/21 04:44 Last Admin: 05/19/21 09:01 Dose: 1 tab Documented by: Tramadol HCl (Tramadol Hcl 50 Mg Tablet) 50 mg PO Q6H PRN PRN Reason: Pain (6-10) Stop: 06/01/21 18:23 Last Admin: 05/19/21 12:15 Dose: 50 mg Documented by: Zolpidem Tartrate (Zolpidem Tartrate 5 Mg Tab) 5 mg PO HS PRN PRN Reason: Sleep Stop: 06/05/21 21:55 Last Admin: 05/18/21 21:22 Dose: 5 mg Documented by:
[2021-05-19] MEDS: risperiDONE 0.5 MG TABLET PO SCH (15:05)
[2021-05-19] MEDS: ENOXAPARIN INJ 40 MG/0.4 ML SYR SQ SCH (20:25)
[2021-05-19] MEDS: lamoTRIgine 25 MG TAB PO SCH (20:26)
[2021-05-19] MEDS: EZETIMIBE 10 MG TABLET PO SCH (20:26)
[2021-05-19] MEDS: ZOLPIDEM TARTRATE 5 MG TAB PO PRN (22:07)
[2021-05-20] MEDS: DICLOFENAC SOD 1% GEL 100 GM TUBE EXT SCH ×3 (06:18→16:50)
[2021-05-20] MEDS: traMADol HCL 50 MG TABLET PO PRN ×2 (06:22→22:01)
[2021-05-20] MEDS: ACETAMINOPHEN 500 MG TAB PO SCH ×2 (08:21→16:49)
[2021-05-20] MEDS: LIDOCAINE 5% 1 PATCH TD SCH (08:21)
[2021-05-20] MEDS: amLODIPine BESYLATE 5 MG TAB PO SCH (08:22)
[2021-05-20] MEDS: ADVANCED PROBIOTIC 1250 MG CAPSULE PO SCH (08:22)
[2021-05-20] MEDS: POTASSIUM CHLORIDE 10 MEQ TABCR PO SCH ×2 (08:23→20:16)
[2021-05-20] MEDS: LACTASE 3000 UNIT TAB PO SCH ×3 (08:23→16:49)
[2021-05-20] MEDS: METOPROLOL TARTRATE 25 MG TAB PO SCH ×2 (08:23→20:17)
[2021-05-20] MEDS: PANTOprazole 40 MG TAB PO SCH (08:23)
[2021-05-20] MEDS: GABAPENTIN 100 MG CAP PO SCH ×3 (08:25→20:16)
[2021-05-20] MEDS: MAGNESIUM OXIDE 400 MG TAB PO SCH ×2 (08:25→20:15)
[2021-05-20] MEDS: ASPIRIN 81 MG ECTAB PO SCH (08:26)
[2021-05-20] MEDS: DOCUSATE SODIUM/SENNA 50/8.6MG TAB PO SCH (08:26)
[2021-05-20] MEDS: FERROUS SULFATE 325 MG TAB PO SCH (12:35)
[2021-05-20] MEDS: risperiDONE 0.5 MG TABLET PO SCH (14:09)
[2021-05-20] MEDS ORDERED: ALUMINUM/MAGNESIUM SUSP 30 ML UDC PO PRN (14:22)
--- NOTE | 2021-05-20 14:26 | Hospitalist Progress Note ---
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 Being managed for the following: Remains medically stable and awaiting placement Dyspepsia Has been on Protonix Will add Maalox as needed Left knee pain , pain in left wrist and also right ankle Complaint of left knee pain Knee xray shows intact replacement, no acute abn Continue knee brace and pain med We will try local diclofenac gel Pain is controlled Pneumonia Admission CXR - bibasilar infiltration more on the right could be secondary to aspiration versus HCAP Initial lactic acid 3.2---> 1.9, no other signs of sepsis. MRSA screen negative Zosyn 03/12 --> change to Augmentin 03/14 -->Levaquin 03/15 d/t E.cloacae and E. 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 On Ambien. 04/18 - visual and auditory hallucinations, worsening delusions/paranoia. Per psychiatry, tapered Risperdal in favor of trial of Zyprexa 2.5 mg at bedtime. Zyprexa increased to 5 mg at bedtime on 04/22 04/24 - Decrease Zyprexa back to 2.5mg qhs given emergence of side effects (daytime fatigue, flattening of affect and softer speech) at higher dose. May need to consider reducing dopamine agent for Parkinson's to better target psychotic symptoms versus Seroquel trail if symptoms persist on low dose Zyprexa. discussed with psychiatry, stopped Sinemet afternoon dose as it can be driving her psychosis 04/29 - DC zyprexa 05/01-Risperdal had been started 03/24 which was then cross-tapered to Olanzapine which was stopped due to worsening bradykinesia and parkinsonism side effects. Despite understanding that her Sinemet contributes to her paranoia, she would like to have this restarted. 05/02-Sinemet on hold and risperidone restarted. Seems to be more animated on risperdal per psych, continue - as of 05/15/21 Case discussed with psych that recommended to continue current therapy with Risperidone daily and ambien prn Stable CAUTI:Chronic indwelling Cheng catheter History of recurrent UTIs. Patient overdue for follow-up with urology---> Alexandrea BETANCOURT to arrange for outpatient follow-up for management of her chronic Cheng UA was suggestive of infection, 03/12 urine culture Enterobacter cloacae and E. coli. Completed Levaquin. 04/18 - reports burning at Cheng site Repeat urine culture growing Enterobacter cloacae, multidrug-resistant. On meropenem Unclear if true infection or colonization ID consulted -presence of bacteriuria and pyuria expected with an indwelling catheter and has no specificity for UTI. No systemic s/sx of infection. Consider other alternatives for urinary incontinence care. Stop meropenem and observe for signs directly attributable to her infection and urinary tract before restarting. Family and patient refused for cheng catheter removal. Patient with longstanding overflow incontinence issues. Discussed increased risk for UTIs Replaced on 04/24. She refuses removal as there is an issue with frequent urinary incontinence and concern for subsequent skin breakdown, will need monthly changes Outpatient follow-up with urology Chest pain - resolved -Developed chest pain on 03/27 and was transferred to [facility] with telemetry -Troponin negative x2, EKG nonischemic -Reproducible on exam, likely musculoskeletal in nature -Another episode of chest pain on 04/06 evening, EKG and troponin unremarkable No more chest pain Chronic Diastolic CHF pt with episode of decompensated CHF while hospitalized, now resolved -Echo 03/21/2021 -EF 55-60%, grade 2 diastolic dysfunction 03/14 CXR: Mild pulmonary edema. Possible small left pleural effusion 03/14 IV dose of Lasix 03/28 IV Lasix x 1 dose euvolemic today, daily weights pt with trace edema pre tibially today, give lasix 20mg x 1 on 05/15/21 No evidence of hypervolemia TIA Patient was a stroke alert overnight (03/20-03/21) Likely TIA - involving the right hemisphere with left facial droop yet on imaging has no evidence for a completed event Head and neck CTA, brain MRI unremarkable for acute findings Neurology consulted, input appreciated Do not have sufficient evidence to recommend adding Plavix to her aspirin but will observe her for recurrent events and if they do enlarge then certainly would add another antiplatelet agent Recommend to continue aspirin 81 mg daily, and 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 Fields CMT (Kfyyfed-Ucbre-Smjzh disease): S/p multiple lower extremity procedures, most recently s/p left knee closed reduction total knee arthroplasty subluxation on 02/16/2021 - patient is to remain nonweightbearing of the left lower extremity and limited weightbearing on the right lower extremity Narcotics have been stopped-added Tramadol for relief 05/04: she consistently is asking for pain meds and would like some more tonight. Abnormal Left ankle XR Chronic multiple joint pain, more on the left leg 03/15 x-ray left ankle: A 1.8 cm linear ossific density posterior to the talus may represent an avulsion fracture from the dorsal calcaneus. Clinical correlation will be essential. Orthopedic consulted for left calcaneal superior posterior avulsion fracture status post fall: High tide walking boot removed, replaced with a dorsiflexion splint with a negative relief under the left heel and lambs wool padding to provide essentially neutral support for neutral dorsiflexion of the left ankle and heel and foot. Orthopedic recommending may use the walking boot for transfers or ambulating and wheelchair as necessary. Follow-up with [place]opedics. [place] [facility] [place], bilateral ankle x-rays ordered on 04/13 - ordered, unchanged, follow up with Dr. Crain Continues to have LLE discomfort. Evaluated by Favio Ford PA-C patient with good ROM but painful. Will have Dr. Layne evaluate later today as well. Considering repeat ankle XR, may benefit from PT/OT if patient desires more frequent ambulation to wheelchair Parkinson disease: Sinemet on hold, cont risperidone Chronic pain: Continue current regimen, minimize escalations in narcotics orthotics consulted for left hand brace - orthotics to get a, "therapy carrott," which is a device that provides gradual ext of fingers overtime. Will need to work with OT, should improve over time. Pt refused this as it was too painful. Pt states she is to have surgery on hand when she returns home at [facility] Pressure ulcer of left buttock, stage 2, now healed, not POA As per wound care management DVT prophylaxis: SQ Lovenox Disposition:Medically stable; Pt may d/c to home once home made accessible; however CM still pursuing placement. Remains medically stable Admission and Anticipated Discharge Date Admission Date: March 12, 2021 Subjective 05/17/2021 The patient was seen and examined in medical floor She remains stable without any complaints 05/18/2021 The patient was seen and examined in medical floor She complains to have some pain in the left ankle and left wrist which has been ongoing Denies any chest pain, palpitation or shortness of breath 05/19/2021 The patient was seen and examined in medical floor She remains stable and complains to have nonspecific pain involving the left wrist left knee and both ankles Denies any shortness of breath 05/20/2021 The patient was seen and examined in medical floor She remains stable with minimal epigastric discomfort and nausea Review of Systems Review of Systems: All systems reviewed and are unremarkable except as noted below Physical Exam Physical Exam: Lying in bed comfortably Constitutional: well developed, well nourished, + ill appearing and + obese Eyes: PERRL, conjunctivae normal, anicteric sclerae ENMT: external ear and nose normal, oropharynx normal Neck: trachea midline, no thyromegaly Respiratory: + respiratory distress and + cough (Minimal cough) Auscultation: + diminished lung sounds and + crackles (Occasional crackles at the bases right more than the left); no wheezes Cardiovascular: Rate/Rhythm: regular rate and regular rhythm; not tachycardic Heart Sounds: normal S1 and normal S2; no murmur Extremities: + edema (Trace edema bilaterally) Gastrointestinal (Abdomen): Inspection/Auscultation: normal bowel sounds; abdomen not distended Percussion/Palpation: + abdomen tender (Minimally tender in the epigastrium) and abdomen soft Musculoskeletal: Has pain in left wrist both ankles with movement but no acute arthritis Neurologic: Alert and awake Lymphatic: no cervical or axillary lymphadenopathy Results & Data Results & Data ([facility]) Vital Signs (Past 12 Hours) Vital Signs Temp Pulse Resp BP Pulse Ox 05/20/21 14:07 36.8 C 63 16 139/82 97 05/20/21 07:52 36.5 C 59 L 12 126/78 96 Medications Administered Current Inpatient Medications Acetaminophen (Acetaminophen 500 Mg Tab) 500 mg PO Q8@0000,0800,1600 [facility] Stop: 06/10/21 15:59 Last Admin: 05/20/21 08:21 Dose: 500 mg Documented by: Al Hydrox/Mg Hydrox/Simethicone (Aluminum/Magnesium Susp 30 Ml Udc) 15 ml PO Q6H PRN PRN Reason: Dyspepsia Stop: 06/19/21 14:21 Albuterol (Albut/Ipratrop 3mg/0.5mg Neb 3 Ml Vial) 3 ml NEB Q4R PRN PRN Reason: Shortness Of Breath Or Wheezing Stop: 06/10/21 10:48 Last Admin: 05/16/21 04:35 Dose: 3 ml Documented by: Amlodipine Besylate (Amlodipine Besylate 5 Mg Tab) 5 mg PO QAM [facility] Stop: 06/10/21 12:14 Last Admin: 05/20/21 08:22 Dose: 5 mg Documented by: Aspirin (Aspirin 81 Mg Ectab) 81 mg PO DAILY [facility] Stop: 06/10/21 08:59 Last Admin: 05/20/21 08:26 Dose: 81 mg Documented by: Carbidopa/Levodopa (Carbidopa/Levodopa 25/100mg Tab) 1 tab PO TID [facility] Stop: 05/31/21 13:59 Diclofenac Sodium (Diclofenac Sod 1% Gel 100 Gm Tube) 2 gm EXT Q6 [facility] Stop: 06/10/21 15:29 Last Admin: 05/20/21 12:35 Dose: 2 gm Documented by: Docusate Sodium (Docusate Sodium 100 Mg Cap) 100 mg PO DAILY PRN PRN Reason: Constipation Stop: 06/10/21 16:59 Last Admin: 04/06/21 02:36 Dose: 100 mg Documented by: Ezetimibe (Ezetimibe 10 Mg Tablet) 10 mg PO HS [facility] Stop: 06/10/21 20:59 Last Admin: 05/19/21 20:26 Dose: 10 mg Documented by: Enoxaparin Sodium (Enoxaparin Inj 40 Mg/0.4 Ml Syr) 40 mg SQ Q24H [facility] Stop: 06/10/21 20:59 Last Admin: 05/19/21 20:25 Dose: 40 mg Documented by: Ferrous Sulfate (Ferrous Sulfate 325 Mg Tab) 325 mg PO DAILY@1100 [facility] Stop: 06/10/21 10:59 Last Admin: 05/20/21 12:35 Dose: 325 mg Documented by: Gabapentin (Gabapentin 100 Mg Cap) 200 mg PO TID [facility] Stop: 06/10/21 20:59 Last Admin: 05/20/21 14:09 Dose: 200 mg Documented by: Lactase (Lactase 3000 Unit Tab) 3,000 units PO AC [facility] Stop: 06/10/21 16:59 Last Admin: 05/20/21 12:34 Dose: 3,000 units Documented by: Lactobacillus Acidoph/Casei/Rhamnos (Advanced Probiotic 1250 Mg Capsule) 2 cap PO DAILY [facility] Stop: 06/10/21 14:29 Last Admin: 05/20/21 08:22 Dose: 2 cap Documented by: Lamotrigine (Lamotrigine 25 Mg Tab) 75 mg PO HS [facility] Stop: 06/10/21 20:59 Last Admin: 05/19/21 20:26 Dose: 75 mg Documented by: Lidocaine (Lidocaine 5% 1 Patch) 1 patch TD DAILY [facility] Stop: 06/10/21 08:59 Last Admin: 05/20/21 08:21 Dose: 1 patch Documented by: Magnesium Oxide (Magnesium Oxide 400 Mg Tab) 400 mg PO BID [facility] Stop: 06/10/21 20:59 Last Admin: 05/20/21 08:25 Dose: 400 mg Documented by: Metoprolol Tartrate (Metoprolol Tartrate 25 Mg Tab) 25 mg PO BID [facility] Stop: 06/10/21 20:24 Last Admin: 05/20/21 08:23 Dose: 25 mg Documented by: Miscellaneous (Remove Lidoderm Patch) 1 ea N/A 2100 [facility] Stop: 06/13/21 20:59 Last Admin: 05/19/21 20:27 Dose: 1 ea Documented by: Nitroglycerin (Nitroglycerin Sl 0.4 Mg/Tab Tab) 0.4 mg SL PRN PRN PRN Reason: Chest Pain Stop: 06/10/21 21:40 Last Admin: 04/22/21 22:16 Dose: 0.4 mg Documented by: Ondansetron HCl (Ondansetron Inj 2 Mg/Ml 2 Ml Vial) 4 mg IV Q8H PRN PRN Reason: Nausea And Vomiting Stop: 06/01/21 18:12 Last Admin: 05/18/21 11:08 Dose: 4 mg Documented by: Pantoprazole Sodium (Pantoprazole 40 Mg Tab) 40 mg PO DAILY [facility] Stop: 06/10/21 08:59 Last Admin: 05/20/21 08:23 Dose: 40 mg Documented by: Polyethylene Glycol (Polyethylene (Miralax) 17 Gm Pack) 17 gm PO DAILY PRN PRN Reason: Constipation Stop: 06/10/21 04:42 Last Admin: 05/17/21 20:42 Dose: 17 gm Documented by: Potassium Chloride (Potassium Chloride 10 Meq Tabcr) 10 meq PO BID [facility] Stop: 06/10/21 20:59 Last Admin: 05/20/21 08:23 Dose: 10 meq Documented by: Risperidone (Risperidone 0.5 Mg Tablet) 0.5 mg PO TODAY@1400 [facility] Stop: 06/01/21 13:59 Last Admin: 05/20/21 14:09 Dose: 0.5 mg Documented by: Senna/Docusate Sodium (Docusate Sodium/Senna 50/8.6mg Tab) 1 tab PO QAM [facility] Stop: 06/10/21 04:44 Last Admin: 05/20/21 08:26 Dose: 1 tab Documented by: Tramadol HCl (Tramadol Hcl 50 Mg Tablet) 50 mg PO Q6H PRN PRN Reason: Pain (6-10) Stop: 06/01/21 18:23 Last Admin: 05/20/21 06:22 Dose: 50 mg Documented by: Zolpidem Tartrate (Zolpidem Tartrate 5 Mg Tab) 5 mg PO HS PRN PRN Reason: Sleep Stop: 06/05/21 21:55 Last Admin: 05/19/21 22:07 Dose: 5 mg Documented by:
[2021-05-20] MEDS: ALBUT/IPRATROP 3MG/0.5MG NEB 3 ML VIAL NEB PRN ×2 (15:50→20:26)
[2021-05-20] MEDS: EZETIMIBE 10 MG TABLET PO SCH (20:15)
[2021-05-20] MEDS: lamoTRIgine 25 MG TAB PO SCH (20:15)
[2021-05-20] MEDS: ENOXAPARIN INJ 40 MG/0.4 ML SYR SQ SCH (20:17)
[2021-05-20] MEDS: ZOLPIDEM TARTRATE 5 MG TAB PO PRN (22:02)
[2021-05-21] MEDS: DICLOFENAC SOD 1% GEL 100 GM TUBE EXT SCH ×4 (00:08→17:02)
[2021-05-21] MEDS: ACETAMINOPHEN 500 MG TAB PO SCH ×3 (00:08→17:02)
[2021-05-21] MEDS: POLYETHYLENE (MIRALAX) 17 GM PACK PO PRN (08:09)
[2021-05-21] MEDS: LIDOCAINE 5% 1 PATCH TD SCH (08:09)
[2021-05-21] MEDS: ADVANCED PROBIOTIC 1250 MG CAPSULE PO SCH (08:10)
[2021-05-21] MEDS: LACTASE 3000 UNIT TAB PO SCH ×3 (08:10→17:02)
[2021-05-21] MEDS: DOCUSATE SODIUM/SENNA 50/8.6MG TAB PO SCH (08:10)
[2021-05-21] MEDS: PANTOprazole 40 MG TAB PO SCH (08:11)
[2021-05-21] MEDS: amLODIPine BESYLATE 5 MG TAB PO SCH (08:11)
[2021-05-21] MEDS: ASPIRIN 81 MG ECTAB PO SCH (08:11)
[2021-05-21] MEDS: GABAPENTIN 100 MG CAP PO SCH ×3 (08:12→22:01)
[2021-05-21] MEDS: POTASSIUM CHLORIDE 10 MEQ TABCR PO SCH ×2 (08:12→22:03)
[2021-05-21] MEDS: MAGNESIUM OXIDE 400 MG TAB PO SCH ×2 (08:13→22:02)
[2021-05-21] MEDS: METOPROLOL TARTRATE 25 MG TAB PO SCH ×2 (08:20→22:07)
[2021-05-21] MEDS: FERROUS SULFATE 325 MG TAB PO SCH (12:19)
[2021-05-21] MEDS: risperiDONE 0.5 MG TABLET PO SCH (14:16)
[2021-05-21] MEDS: traMADol HCL 50 MG TABLET PO PRN ×2 (14:33→22:10)
--- NOTE | 2021-05-21 14:58 | Hospitalist Progress Note ---
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 Being managed for the following: Remains medically stable and awaiting placement Dyspepsia Has been on Protonix Will add Maalox as needed Left knee pain , pain in left wrist and also right ankle Complaint of left knee pain Knee xray shows intact replacement, no acute abn Continue knee brace and pain med We will try local diclofenac gel Pain is controlled Pneumonia Admission CXR - bibasilar infiltration more on the right could be secondary to aspiration versus HCAP Initial lactic acid 3.2---> 1.9, no other signs of sepsis. MRSA screen negative Zosyn 03/12 --> change to Augmentin 03/14 -->Levaquin 03/15 d/t E.cloacae and E. 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 On Ambien. 04/18 - visual and auditory hallucinations, worsening delusions/paranoia. Per psychiatry, tapered Risperdal in favor of trial of Zyprexa 2.5 mg at bedtime. Zyprexa increased to 5 mg at bedtime on 04/22 04/24 - Decrease Zyprexa back to 2.5mg qhs given emergence of side effects (daytime fatigue, flattening of affect and softer speech) at higher dose. May need to consider reducing dopamine agent for Parkinson's to better target psychotic symptoms versus Seroquel trail if symptoms persist on low dose Zyprexa. discussed with psychiatry, stopped Sinemet afternoon dose as it can be driving her psychosis 04/29 - DC zyprexa 05/01-Risperdal had been started 03/24 which was then cross-tapered to Olanzapine which was stopped due to worsening bradykinesia and parkinsonism side effects. Despite understanding that her Sinemet contributes to her paranoia, she would like to have this restarted. 05/02-Sinemet on hold and risperidone restarted. Seems to be more animated on risperdal per psych, continue - as of 05/15/21 Case discussed with psych that recommended to continue current therapy with Risperidone daily and ambien prn Stable CAUTI:Chronic indwelling Cheng catheter History of recurrent UTIs. Patient overdue for follow-up with urology---> Alexandrea BETANCOURT to arrange for outpatient follow-up for management of her chronic Cheng UA was suggestive of infection, 03/12 urine culture Enterobacter cloacae and E. coli. Completed Levaquin. 04/18 - reports burning at Cheng site Repeat urine culture growing Enterobacter cloacae, multidrug-resistant. On meropenem Unclear if true infection or colonization ID consulted -presence of bacteriuria and pyuria expected with an indwelling catheter and has no specificity for UTI. No systemic s/sx of infection. Consider other alternatives for urinary incontinence care. Stop meropenem and observe for signs directly attributable to her infection and urinary tract before restarting. Family and patient refused for cheng catheter removal. Patient with longstanding overflow incontinence issues. Discussed increased risk for UTIs Replaced on 04/24. She refuses removal as there is an issue with frequent urinary incontinence and concern for subsequent skin breakdown, will need monthly changes Outpatient follow-up with urology Chest pain - resolved -Developed chest pain on 03/27 and was transferred to [facility] with telemetry -Troponin negative x2, EKG nonischemic -Reproducible on exam, likely musculoskeletal in nature -Another episode of chest pain on 04/06 evening, EKG and troponin unremarkable No more chest pain Chronic Diastolic CHF pt with episode of decompensated CHF while hospitalized, now resolved -Echo 03/21/2021 -EF 55-60%, grade 2 diastolic dysfunction 03/14 CXR: Mild pulmonary edema. Possible small left pleural effusion 03/14 IV dose of Lasix 03/28 IV Lasix x 1 dose euvolemic today, daily weights pt with trace edema pre tibially today, give lasix 20mg x 1 on 05/15/21 No evidence of hypervolemia TIA Patient was a stroke alert overnight (03/20-03/21) Likely TIA - involving the right hemisphere with left facial droop yet on imaging has no evidence for a completed event Head and neck CTA, brain MRI unremarkable for acute findings Neurology consulted, input appreciated Do not have sufficient evidence to recommend adding Plavix to her aspirin but will observe her for recurrent events and if they do enlarge then certainly would add another antiplatelet agent Recommend to continue aspirin 81 mg daily, and 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 Fields [facility] (Gwnhnxb-Ztklf-Muxbo disease): S/p multiple lower extremity procedures, most recently s/p left knee closed reduction total knee arthroplasty subluxation on 02/16/2021 - patient is to remain nonweightbearing of the left lower extremity and limited weightbearing on the right lower extremity Narcotics have been stopped-added Tramadol for relief 05/04: she consistently is asking for pain meds and would like some more tonight. Abnormal Left ankle XR Chronic multiple joint pain, more on the left leg 03/15 x-ray left ankle: A 1.8 cm linear ossific density posterior to the talus may represent an avulsion fracture from the dorsal calcaneus. Clinical correlation will be essential. Orthopedic consulted for left calcaneal superior posterior avulsion fracture status post fall: High tide walking boot removed, replaced with a dorsiflexion splint with a negative relief under the left heel and lambs wool padding to provide essentially neutral support for neutral dorsiflexion of the left ankle and heel and foot. Orthopedic recommending may use the walking boot for transfers or ambulating and wheelchair as necessary. Follow-up with outpatient orthopedics. Dr[place], [facility] [place] request, bilateral ankle x-rays ordered on 04/13 - ordered, unchanged, follow up with Dr. Crain Continues to have LLE discomfort. Evaluated by Favio Ford PA-C patient with good ROM but painful. Will have Dr. Layne evaluate later today as well. Considering repeat ankle XR, may benefit from PT/OT if patient desires more frequent ambulation to wheelchair Parkinson disease: Sinemet on hold, cont risperidone Chronic pain: Continue current regimen, minimize escalations in narcotics orthotics consulted for left hand brace - orthotics to get a, "therapy carrott," which is a device that provides gradual ext of fingers overtime. Will need to work with OT, should improve over time. Pt refused this as it was too painful. Pt states she is to have surgery on hand when she returns home at [place] Pressure ulcer of left buttock, stage 2, now healed, not POA As per wound care management DVT prophylaxis: SQ Lovenox Disposition:Medically stable; Pt may d/c to home once home made accessible; however CM still pursuing placement. Remains medically stable Admission and Anticipated Discharge Date Admission Date: March 12, 2021 Supervising Physician Co-Signing Physician Notes Attending addendum: The patient was seen and examined in medical floor in presence of the She remains stable and has been waiting to be discharged She remains hemodynamically stable without any significant symptoms Her medications, labs reviewed Discussed with the in detail about her current medical condition and what can be done medically Agree with assessment and plan as outlined above by CRISTI Denise Dr Subjective Patient was seen and examined in 381-1. Follow-up chronic and recurrent UTIs, history of CVA, diastolic CHF pending placement. Offers no acute concerns today. She does feel nauseated this morning. Denies f/c/s, chest pain, sob, abd pain. Cheng cath remains in place. Review of Systems Review of Systems: All systems reviewed & are unremarkable except as noted in HPI & below Physical Exam Physical Exam: Gen: WD/WN, F, chronically ill appearing, NAD, A&O x3 basics HEENT: Normocephalic, atraumatic, conjunctivae moist, sclerae anicteric, mucous membranes moist. Lung: Clear to Auscultation bilaterally, no wheezes/rales/rhonchi Heart: Regular rate, regular rhythm, no murmurs, rubs, or gallops Abdomen: Soft, NT, ND +BS x 4 Extremities: Left lower extremity John wrap in place, trace pretibial edema bl Skin: Warm, no rash, negative turgor. : +Cheng cath Results & Data Results & Data ([facility]) Vital Signs (Past 12 Hours) Vital Signs Temp Pulse Resp BP Pulse Ox 05/21/21 07:07 36.5 C 58 L 14 123/72 99 Medications Administered Current Inpatient Medications Acetaminophen (Acetaminophen 500 Mg Tab) 500 mg PO Q8@0000,0800,1600 [facility] Stop: 06/10/21 15:59 Last Admin: 05/21/21 08:16 Dose: 500 mg Documented by: Al Hydrox/Mg Hydrox/Simethicone (Aluminum/Magnesium Susp 30 Ml Udc) 15 ml PO Q6H PRN PRN Reason: Dyspepsia Stop: 06/19/21 14:21 Albuterol (Albut/Ipratrop 3mg/0.5mg Neb 3 Ml Vial) 3 ml NEB Q4R PRN PRN Reason: Shortness Of Breath Or Wheezing Stop: 06/10/21 10:48 Last Admin: 05/20/21 20:26 Dose: 3 ml Documented by: Amlodipine Besylate (Amlodipine Besylate 5 Mg Tab) 5 mg PO QAM [facility] Stop: 06/10/21 12:14 Last Admin: 05/21/21 08:11 Dose: 5 mg Documented by: Aspirin (Aspirin 81 Mg Ectab) 81 mg PO DAILY [facility] Stop: 06/10/21 08:59 Last Admin: 05/21/21 08:11 Dose: 81 mg Documented by: Carbidopa/Levodopa (Carbidopa/Levodopa 25/100mg Tab) 1 tab PO TID [facility] Stop: 05/31/21 13:59 Diclofenac Sodium (Diclofenac Sod 1% Gel 100 Gm Tube) 2 gm EXT Q6 [facility] Stop: 06/10/21 15:29 Last Admin: 05/21/21 12:19 Dose: 2 gm Documented by: Docusate Sodium (Docusate Sodium 100 Mg Cap) 100 mg PO DAILY PRN PRN Reason: Constipation Stop: 06/10/21 16:59 Last Admin: 04/06/21 02:36 Dose: 100 mg Documented by: Ezetimibe (Ezetimibe 10 Mg Tablet) 10 mg PO HS [facility] Stop: 06/10/21 20:59 Last Admin: 05/20/21 20:15 Dose: 10 mg Documented by: Enoxaparin Sodium (Enoxaparin Inj 40 Mg/0.4 Ml Syr) 40 mg SQ Q24H [facility] Stop: 06/10/21 20:59 Last Admin: 05/20/21 20:17 Dose: 40 mg Documented by: Ferrous Sulfate (Ferrous Sulfate 325 Mg Tab) 325 mg PO DAILY@1100 [facility] Stop: 06/10/21 10:59 Last Admin: 05/21/21 12:19 Dose: 325 mg Documented by: Gabapentin (Gabapentin 100 Mg Cap) 200 mg PO TID [facility] Stop: 06/10/21 20:59 Last Admin: 05/21/21 14:16 Dose: 200 mg Documented by: Lactase (Lactase 3000 Unit Tab) 3,000 units PO AC [facility] Stop: 06/10/21 16:59 Last Admin: 05/21/21 12:19 Dose: 3,000 units Documented by: Lactobacillus Acidoph/Casei/Rhamnos (Advanced Probiotic 1250 Mg Capsule) 2 cap PO DAILY [facility] Stop: 06/10/21 14:29 Last Admin: 05/21/21 08:10 Dose: 2 cap Documented by: Lamotrigine (Lamotrigine 25 Mg Tab) 75 mg PO HS [facility] Stop: 06/10/21 20:59 Last Admin: 05/20/21 20:15 Dose: 75 mg Documented by: Lidocaine (Lidocaine 5% 1 Patch) 1 patch TD DAILY [facility] Stop: 06/10/21 08:59 Last Admin: 05/21/21 08:09 Dose: 1 patch Documented by: Magnesium Oxide (Magnesium Oxide 400 Mg Tab) 400 mg PO BID [facility] Stop: 06/10/21 20:59 Last Admin: 05/21/21 08:13 Dose: 400 mg Documented by: Metoprolol Tartrate (Metoprolol Tartrate 25 Mg Tab) 25 mg PO BID [facility] Stop: 06/10/21 20:24 Last Admin: 05/21/21 08:20 Dose: 25 mg Documented by: Miscellaneous (Remove Lidoderm Patch) 1 ea N/A 2100 [facility] Stop: 06/13/21 20:59 Last Admin: 05/20/21 20:18 Dose: 1 ea Documented by: Nitroglycerin (Nitroglycerin Sl 0.4 Mg/Tab Tab) 0.4 mg SL PRN PRN PRN Reason: Chest Pain Stop: 06/10/21 21:40 Last Admin: 04/22/21 22:16 Dose: 0.4 mg Documented by: Ondansetron HCl (Ondansetron Inj 2 Mg/Ml 2 Ml Vial) 4 mg IV Q8H PRN PRN Reason: Nausea And Vomiting Stop: 06/01/21 18:12 Last Admin: 05/18/21 11:08 Dose: 4 mg Documented by: Pantoprazole Sodium (Pantoprazole 40 Mg Tab) 40 mg PO DAILY [facility] Stop: 06/10/21 08:59 Last Admin: 05/21/21 08:11 Dose: 40 mg Documented by: Polyethylene Glycol (Polyethylene (Miralax) 17 Gm Pack) 17 gm PO DAILY PRN PRN Reason: Constipation Stop: 06/10/21 04:42 Last Admin: 05/21/21 08:09 Dose: 17 gm Documented by: Potassium Chloride (Potassium Chloride 10 Meq Tabcr) 10 meq PO BID [facility] Stop: 06/10/21 20:59 Last Admin: 05/21/21 08:12 Dose: 10 meq Documented by: Risperidone (Risperidone 0.5 Mg Tablet) 0.5 mg PO TODAY@1400 [facility] Stop: 06/01/21 13:59 Last Admin: 05/21/21 14:16 Dose: 0.5 mg Documented by: Senna/Docusate Sodium (Docusate Sodium/Senna 50/8.6mg Tab) 1 tab PO QAM [facility] Stop: 06/10/21 04:44 Last Admin: 05/21/21 08:10 Dose: 1 tab Documented by: Tramadol HCl (Tramadol Hcl 50 Mg Tablet) 50 mg PO Q6H PRN PRN Reason: Pain (6-10) Stop: 06/01/21 18:23 Last Admin: 05/21/21 14:33 Dose: 50 mg Documented by: Zolpidem Tartrate (Zolpidem Tartrate 5 Mg Tab) 5 mg PO HS PRN PRN Reason: Sleep Stop: 06/05/21 21:55 Last Admin: 05/20/21 22:02 Dose: 5 mg Documented by:
[2021-05-21] MEDS: EZETIMIBE 10 MG TABLET PO SCH (22:00)
[2021-05-21] MEDS: ENOXAPARIN INJ 40 MG/0.4 ML SYR SQ SCH (22:00)
[2021-05-21] MEDS: lamoTRIgine 25 MG TAB PO SCH (22:02)
[2021-05-21] MEDS: ZOLPIDEM TARTRATE 5 MG TAB PO PRN (22:10)
[2021-05-21] MEDS: ONDANSETRON INJ 2 MG/ML 2 ML VIAL IV PRN (22:12)
[2021-05-22] MEDS: DICLOFENAC SOD 1% GEL 100 GM TUBE EXT SCH ×4 (00:11→17:38)
[2021-05-22] MEDS: ACETAMINOPHEN 500 MG TAB PO SCH ×3 (00:11→17:37)
[2021-05-22] MEDS: DOCUSATE SODIUM 100 MG CAP PO PRN (02:06)
[2021-05-22] MEDS: METOPROLOL TARTRATE 25 MG TAB PO SCH ×2 (08:30→22:13)
[2021-05-22] MEDS: GABAPENTIN 100 MG CAP PO SCH ×3 (08:30→22:12)
[2021-05-22] MEDS: ADVANCED PROBIOTIC 1250 MG CAPSULE PO SCH (08:30)
[2021-05-22] MEDS: amLODIPine BESYLATE 5 MG TAB PO SCH (08:30)
[2021-05-22] MEDS: LACTASE 3000 UNIT TAB PO SCH ×3 (08:30→17:38)
[2021-05-22] MEDS: DOCUSATE SODIUM/SENNA 50/8.6MG TAB PO SCH (08:30)
[2021-05-22] MEDS: PANTOprazole 40 MG TAB PO SCH (08:30)
[2021-05-22] MEDS: ASPIRIN 81 MG ECTAB PO SCH (08:30)
[2021-05-22] MEDS: POTASSIUM CHLORIDE 10 MEQ TABCR PO SCH ×2 (08:30→22:12)
[2021-05-22] MEDS: MAGNESIUM OXIDE 400 MG TAB PO SCH ×2 (08:30→22:12)
[2021-05-22] MEDS: LIDOCAINE 5% 1 PATCH TD SCH (11:21)
[2021-05-22] MEDS: FERROUS SULFATE 325 MG TAB PO SCH (11:22)
--- NOTE | 2021-05-22 13:19 | Hospitalist Progress Note ---
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 Being managed for the following: Remains medically stable and awaiting placement Pt c/o suprapubic pain, requesting UTI eval will exchange cheng today and obtain UA check cbc, cmp tomorrow Left knee pain , pain in left wrist and also right ankle Complaint of left knee pain Knee xray shows intact replacement, no acute abn Continue knee brace and pain med We will try local diclofenac gel Pain is controlled Pneumonia Admission CXR - bibasilar infiltration more on the right could be secondary to aspiration versus HCAP Initial lactic acid 3.2---> 1.9, no other signs of sepsis. MRSA screen negative Zosyn 03/12 --> change to Augmentin 03/14 -->Levaquin 03/15 d/t E.cloacae and E. 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 On Ambien. 04/18 - visual and auditory hallucinations, worsening delusions/paranoia. Per psychiatry, tapered Risperdal in favor of trial of Zyprexa 2.5 mg at bedtime. Zyprexa increased to 5 mg at bedtime on 04/22 04/24 - Decrease Zyprexa back to 2.5mg qhs given emergence of side effects (daytime fatigue, flattening of affect and softer speech) at higher dose. May need to consider reducing dopamine agent for Parkinson's to better target psychotic symptoms versus Seroquel trail if symptoms persist on low dose Zyprexa. discussed with psychiatry, stopped Sinemet afternoon dose as it can be driving her psychosis 04/29 - DC zyprexa 05/01-Risperdal had been started 03/24 which was then cross-tapered to Olanzapine which was stopped due to worsening bradykinesia and parkinsonism side effects. Despite understanding that her Sinemet contributes to her paranoia, she would like to have this restarted. 05/02-Sinemet on hold and risperidone restarted. Seems to be more animated on risperdal per psych, continue - as of 05/15/21 Case discussed with psych that recommended to continue current therapy with Risperidone daily and ambien prn Stable CAUTI:Chronic indwelling Cheng catheter History of recurrent UTIs. Patient overdue for follow-up with urology---> Alexandrea BETANCOURT to arrange for outpatient follow-up for management of her chronic Cheng UA was suggestive of infection, 03/12 urine culture Enterobacter cloacae and E. coli. Completed Levaquin. 04/18 - reports burning at Cheng site Repeat urine culture growing Enterobacter cloacae, multidrug-resistant. On meropenem Unclear if true infection or colonization ID consulted -presence of bacteriuria and pyuria expected with an indwelling catheter and has no specificity for UTI. No systemic s/sx of infection. Consider other alternatives for urinary incontinence care. Stop meropenem and observe for signs directly attributable to her infection and urinary tract before restarting. Family and patient refused for cheng catheter removal. Patient with longstanding overflow incontinence issues. Discussed increased risk for UTIs Replaced on 04/24. She refuses removal as there is an issue with frequent urinary incontinence and concern for subsequent skin breakdown, will need monthly changes Outpatient follow-up with urology Chest pain - resolved -Developed chest pain on 03/27 and was transferred to [facility] with telemetry -Troponin negative x2, EKG nonischemic -Reproducible on exam, likely musculoskeletal in nature -Another episode of chest pain on 04/06 evening, EKG and troponin unremarkable No more chest pain Chronic Diastolic CHF pt with episode of decompensated CHF while hospitalized, now resolved -Echo 03/21/2021 -EF 55-60%, grade 2 diastolic dysfunction 03/14 CXR: Mild pulmonary edema. Possible small left pleural effusion 03/14 IV dose of Lasix 03/28 IV Lasix x 1 dose euvolemic today, daily weights pt with trace edema pre tibially today, give lasix 20mg x 1 on 05/15/21 No evidence of hypervolemia TIA Patient was a stroke alert overnight (03/20-03/21) Likely TIA - involving the right hemisphere with left facial droop yet on imaging has no evidence for a completed event Head and neck CTA, brain MRI unremarkable for acute findings Neurology consulted, input appreciated Do not have sufficient evidence to recommend adding Plavix to her aspirin but will observe her for recurrent events and if they do enlarge then certainly would add another antiplatelet agent Recommend to continue aspirin 81 mg daily, and 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 Fields [facility] (Zwlcweb-Hivcd-Mgvrg disease): S/p multiple lower extremity procedures, most recently s/p left knee closed reduction total knee arthroplasty subluxation on 02/16/2021 - patient is to remain nonweightbearing of the left lower extremity and limited weightbearing on the right lower extremity Narcotics have been stopped-added Tramadol for relief 05/04: she consistently is asking for pain meds and would like some more tonight. Abnormal Left ankle XR Chronic multiple joint pain, more on the left leg 03/15 x-ray left ankle: A 1.8 cm linear ossific density posterior to the talus may represent an avulsion fracture from the dorsal calcaneus. Clinical correlation will be essential. Orthopedic consulted for left calcaneal superior posterior avulsion fracture status post fall: High tide walking boot removed, replaced with a dorsiflexion splint with a negative relief under the left heel and lambs wool padding to provide essentially neutral support for neutral dorsiflexion of the left ankle and heel and foot. Orthopedic recommending may use the walking boot for transfers or ambulating and wheelchair as necessary. [facility] ankle x-rays ordered on 04/13 - ordered, unchanged, follow up with Dr. Crain Continues to have LLE discomfort. Evaluated by Favio Ford PA-C patient with good ROM but painful. Will have Dr. Layne evaluate later today as well. Considering repeat ankle XR, may benefit from PT/OT if patient desires more frequent ambulation to wheelchair Parkinson disease: Sinemet on hold, cont risperidone Chronic pain: Continue current regimen, minimize escalations in narcotics orthotics consulted for left hand brace - orthotics to get a, "therapy carrott," which is a device that provides gradual ext of fingers overtime. Will need to work with OT, should improve over time. Pt refused this as it was too painful. Pt states she is to have surgery on hand when she returns home at [place] Pressure ulcer of left buttock, stage 2, now healed, not POA As per wound care management DVT prophylaxis: SQ Lovenox Disposition:Medically stable; Pt may d/c to home once home made accessible; however CM still pursuing placement. Remains medically stable Admission and Anticipated Discharge Date Admission Date: March 12, 2021 Supervising Physician Co-Signing Physician Notes Attending addendum The patient was seen and examined in medical floor She has been stable and awaiting to be discharged home Complains to have some urinary symptoms On examination Lying in bed comfortably Chestclear to auscultate bilaterally HeartS1-S2, regular Abdomenbenign Extremitiestrace edema bilaterally Her labs and medications reviewed She remains stable given her multiple comorbid conditions as mentioned above Her Cheng will be changed and UA will be sent for culture Agree with assessment and plan as outlined above by Estrella Powres Subjective Patient was seen and examined in 381-1. Follow-up chronic and recurrent UTIs, history of CVA, diastolic CHF pending placement. "I think I have a UTI." She complains of pain in her suprapubic region. Is requesting testing. Complains of being hot/cold, but no documented fever. Denies f/c/s, chest pain, sob, n/v/d. Agreeable to cheng cath exchange for clean catch urine. Review of Systems Review of Systems: All systems reviewed & are unremarkable except as noted in HPI & below Physical Exam Physical Exam: Gen: WD/WN, F, chronically ill appearing, NAD, A&O x3 basics HEENT: Normocephalic, atraumatic, conjunctivae moist, sclerae anicteric, mucous membranes moist. Lung: Clear to Auscultation bilaterally, no wheezes/rales/rhonchi Heart: Regular rate, regular rhythm, no murmurs, rubs, or gallops Abdomen: Soft, NT, ND +BS x 4 Extremities: Left lower extremity John wrap in place, no edema Skin: Warm, no rash, negative turgor. : +Cheng cath Results & Data Results & Data ([facility]) Vital Signs (Past 12 Hours) Vital Signs Temp Pulse Resp BP Pulse Ox 05/22/21 07:28 36.5 C 65 16 131/73 95
[2021-05-22] MEDS: risperiDONE 0.5 MG TABLET PO SCH (14:42)
[2021-05-22] MEDS: traMADol HCL 50 MG TABLET PO PRN ×2 (15:10→22:11)
[2021-05-22 15:44] LABS: Appearance Urine Turbid (Clear); Bacteria Urine Automated Negative (Negative); Bilirubin Urine Negative (Negative); Blood Urine 1+ (Negative); Color Urine Yellow; Epithelial Cell Urine Auto >30 /lpf (0-5); Glucose Urine UA Negative (Negative); Ketones Urine Negative (Negative); Leukocyte Esterase Urine Trace (Negative); Nitrite Urine Negative (Negative); Specific Gravity Urine 1.012 (1.000-1.030); Urobilinogen Urine Negative (Negative); pH Urine >= 9.0 (4.5-7.5)
[2021-05-22 15:46] LABS: Protein Urine Trace (Negative)
[2021-05-22] MEDS: ENOXAPARIN INJ 40 MG/0.4 ML SYR SQ SCH (22:10)
[2021-05-22] MEDS: EZETIMIBE 10 MG TABLET PO SCH (22:11)
[2021-05-22] MEDS: ZOLPIDEM TARTRATE 5 MG TAB PO PRN (22:11)
[2021-05-22] MEDS: lamoTRIgine 25 MG TAB PO SCH (22:13)
[2021-05-23] MEDS: DICLOFENAC SOD 1% GEL 100 GM TUBE EXT SCH ×5 (00:20→23:08)
[2021-05-23] MEDS: ACETAMINOPHEN 500 MG TAB PO SCH ×4 (00:20→23:07)
[2021-05-23 07:27] LABS: Basophils # (auto) 0.01 K/uL (0-0.2); Basophils % (auto) 0.2 %; Eosinophils # (auto) 0.19 K/uL (0-0.5); Eosinophils % (auto) 3.2 %; Hematocrit (blood only) 34.5 % (37-47); Hemoglobin 11.1 g/dL (12.0-16.0); Immature Granulocytes # (auto) 0.01 K/uL (0.00-0.02); Immature Granulocytes % (auto) 0.2 %; Lymphocytes # (auto) 1.97 K/uL (1.2-3.4); Lymphocytes % (auto) 33.3 %; Mean Corpuscular Hemoglobin 27.6 pg (25-34); Mean Corpuscular Hgb Conc 32.2 g/dL (32-36); Mean Corpuscular Volume 85.8 fL (80-100); Mean Platelet Volume 9.9 fL (7.4-10.4); Monocytes # (auto) 0.67 K/uL (0.11-0.59); Monocytes % (auto) 11.3 %; Neutrophils # (auto) 3.06 K/uL (1.4-6.5); Neutrophils % (auto) 51.8 %; Platelet Count 226 K/uL (130-400); RDW Coefficient of Variation 13.5 % (11.5-14.5); RDW Standard Deviation 42.6 fL (36.4-46.3); Red Blood Count 4.02 M/uL (4.2-5.4); White Blood Count 5.91 K/uL (4.8-10.8)
[2021-05-23 07:44] LABS: BUN Creatinine Ratio 20.6 (10-20); Calcium 9.3 mg/dl (8.5-10.1); Creatinine Clr Calc Pharmacy 75.9 ml/min; Est GFR (African American) 101.7 ml/min; Est GFR (Non-African American) 87.7 ml/min
[2021-05-23] MEDS: traMADol HCL 50 MG TABLET PO PRN ×2 (08:18→21:46)
[2021-05-23] MEDS: LACTASE 3000 UNIT TAB PO SCH ×3 (08:19→16:30)
[2021-05-23] MEDS: LIDOCAINE 5% 1 PATCH TD SCH (10:04)
[2021-05-23] MEDS: amLODIPine BESYLATE 5 MG TAB PO SCH (10:04)
[2021-05-23] MEDS: POTASSIUM CHLORIDE 10 MEQ TABCR PO SCH ×2 (10:04→21:31)
[2021-05-23] MEDS: METOPROLOL TARTRATE 25 MG TAB PO SCH ×2 (10:04→21:32)
[2021-05-23] MEDS: FERROUS SULFATE 325 MG TAB PO SCH (10:04)
[2021-05-23] MEDS: MAGNESIUM OXIDE 400 MG TAB PO SCH ×2 (10:05→21:32)
[2021-05-23] MEDS: GABAPENTIN 100 MG CAP PO SCH ×3 (10:05→21:32)
[2021-05-23] MEDS: ASPIRIN 81 MG ECTAB PO SCH (10:05)
[2021-05-23] MEDS: PANTOprazole 40 MG TAB PO SCH (10:06)
[2021-05-23] MEDS: DOCUSATE SODIUM/SENNA 50/8.6MG TAB PO SCH (10:06)
[2021-05-23] MEDS: ADVANCED PROBIOTIC 1250 MG CAPSULE PO SCH (10:07)
[2021-05-23] MEDS: risperiDONE 0.5 MG TABLET PO SCH (12:36)
--- NOTE | 2021-05-23 13:21 | Hospitalist Progress Note ---
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 Being managed for the following: UTI sx pt reported suprapubic pain on 05/22 cheng exchanged 05/22 and UA obtained and no bacturia she is afebrile and wbc WNL no active infection Hypomagnesemia repleted continue oral supplements Hyponatremia, chronic has been low since 04/18 obtain urine osm, serum osm, urine na Pneumonia Admission CXR - bibasilar infiltration more on the right could be secondary to aspiration versus HCAP Initial lactic acid 3.2---> 1.9, no other signs of sepsis. MRSA screen negative Zosyn 03/12 --> change to Augmentin 03/14 -->Levaquin 03/15 d/t E.cloacae and E. 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 On Ambien. 04/18 - visual and auditory hallucinations, worsening delusions/paranoia. Per psychiatry, tapered Risperdal in favor of trial of Zyprexa 2.5 mg at bedtime. Zyprexa increased to 5 mg at bedtime on 04/22 04/24 - Decrease Zyprexa back to 2.5mg qhs given emergence of side effects (daytime fatigue, flattening of affect and softer speech) at higher dose. May need to consider reducing dopamine agent for Parkinson's to better target psychotic symptoms versus Seroquel trail if symptoms persist on low dose Zyprexa. discussed with psychiatry, stopped Sinemet afternoon dose as it can be driving her psychosis 04/29 - DC zyprexa 05/01-Risperdal had been started 03/24 which was then cross-tapered to Olanzapine which was stopped due to worsening bradykinesia and parkinsonism side effects. Despite understanding that her Sinemet contributes to her paranoia, she would like to have this restarted. 05/02-Sinemet on hold and risperidone restarted. Seems to be more animated on risperdal per psych, continue - as of 05/15/21 Case discussed with psych that recommended to continue current therapy with Risperidone daily and ambien prn Stable CAUTI:Chronic indwelling Cheng catheter History of recurrent UTIs. Patient overdue for follow-up with urology---> Alexandrea BETANCOURT to arrange for outpatient follow-up for management of her chronic Cheng UA was suggestive of infection, 03/12 urine culture Enterobacter cloacae and E. coli. Completed Levaquin. 04/18 - reports burning at Cheng site Repeat urine culture growing Enterobacter cloacae, multidrug-resistant. On meropenem Unclear if true infection or colonization ID consulted -presence of bacteriuria and pyuria expected with an indwelling catheter and has no specificity for UTI. No systemic s/sx of infection. Consider other alternatives for urinary incontinence care. Stop meropenem and observe for signs directly attributable to her infection and urinary tract before restarting. Family and patient refused for cheng catheter removal. Patient with longstanding overflow incontinence issues. Discussed increased risk for UTIs Replaced on 04/24. She refuses removal as there is an issue with frequent urinary incontinence and concern for subsequent skin breakdown, will need monthly changes Outpatient follow-up with urology Cheng exchanged 05/22/21 Chest pain - resolved -Developed chest pain on 03/27 and was transferred to [facility] with telemetry -Troponin negative x2, EKG nonischemic -Reproducible on exam, likely musculoskeletal in nature -Another episode of chest pain on 04/06 evening, EKG and troponin unremarkable resolved Chronic Diastolic CHF pt with episode of decompensated CHF while hospitalized, now resolved -Echo 03/21/2021 -EF 55-60%, grade 2 diastolic dysfunction 03/14 CXR: Mild pulmonary edema. Possible small left pleural effusion 03/14 IV dose of Lasix 03/28 IV Lasix x 1 dose euvolemic today, daily weights TIA Patient was a stroke alert overnight (03/20-03/21) Likely TIA - involving the right hemisphere with left facial droop yet on imaging has no evidence for a completed event Head and neck CTA, brain MRI unremarkable for acute findings Neurology consulted, input appreciated Do not have sufficient evidence to recommend adding Plavix to her aspirin but will observe her for recurrent events and if they do enlarge then certainly would add another antiplatelet agent Recommend to continue aspirin 81 mg daily, and 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 Fields CMT (Lumpmtw-Katbg-Zvjaw disease): S/p multiple lower extremity procedures, most recently s/p left knee closed reduction total knee arthroplasty subluxation on 02/16/2021 - patient is to remain nonweightbearing of the left lower extremity and limited weightbearing on the right lower extremity Narcotics have been stopped-added Tramadol for relief 05/04: she consistently is asking for pain meds and would like some more tonight. Abnormal Left ankle XR Chronic multiple joint pain, more on the left leg 03/15 x-ray left ankle: A 1.8 cm linear ossific density posterior to the talus may represent an avulsion fracture from the dorsal calcaneus. Clinical correlation will be essential. Orthopedic consulted for left calcaneal superior posterior avulsion fracture status post fall: High tide walking boot removed, replaced with a dorsiflexion splint with a negative relief under the left heel and lambs wool padding to provide essentially neutral support for neutral dorsiflexion of the left ankle and heel and foot. Orthopedic recommending may use the walking boot for transfers or ambulating and wheelchair as necessary. Follow-up with outpatient orthopedics. Dr. Crain, [facility] Per patient request, bilateral ankle x-rays ordered on 04/13 - ordered, unchanged, follow up with Dr. Crain Continues to have LLE discomfort. Evaluated by Favio Ford PA-C patient with good ROM but painful. Will have Dr. Layne evaluate later today as well. Considering repeat ankle XR, may benefit from PT/OT if patient desires more frequent ambulation to wheelchair Left knee pain Complaint of left knee pain Knee xray shows intact replacement, no acute abn Continue knee brace and pain med Continue monitor Parkinson disease: Sinemet on hold, cont risperidone Chronic pain: Continue current regimen, minimize escalations in narcotics Will consult orthotic for left hand brace - orthotics to get a, "therapy carrott," which is a device that provides gradual ext of fingers overtime. Pt declining this and states she is to get surgery at [facility] on discharge DVT prophylaxis: SQ Lovenox Disposition:Medically stable; awaiting placement to facility. Admission and Anticipated Discharge Date Admission Date: March 12, 2021 Supervising Physician Co-Signing Physician Notes I have seen and examined the patient and have discussed the case with the provider above. I agree with the assessment and plan as stated. Patient is reporting chronic pain. Narcotic options have been stopped so tramadol was restarted PRN. My physical exam is consistent with that above. Cont current medical therapies while awaiting disposition. Nurse contacted PT to ask them to come in and work with her again tomorrow. DO Vitaliy Ceballos Patient was seen and examined in [phone]. Follow-up chronic and recurrent UTIs, history of CVA, diastolic CHF pending placement. "I want to get out of bed." States she hasn't been out of bed since admission. Denies CP, SOB, n/v/d. States suprapubic pain has resolved. Denies f/c/s. Tolerating diet. Review of Systems Review of Systems: All systems reviewed & are unremarkable except as noted in HPI & below Physical Exam Physical Exam: Gen: WD/WN, F, chronically ill appearing, NAD, A&O x3 basics HEENT: Normocephalic, atraumatic, conjunctivae moist, sclerae anicteric, mucous membranes moist. Lung: Clear to Auscultation bilaterally, no wheezes/rales/rhonchi Heart: Regular rate, regular rhythm, no murmurs, rubs, or gallops Abdomen: Soft, NT, ND +BS x 4 Extremities: Left lower extremity John wrap in place, no edema Skin: Warm, no rash, negative turgor. : +Cheng cath draining yellow urine Results & Data Results & Data ([facility]) Vital Signs (Past 12 Hours) Vital Signs Temp Pulse Resp BP Pulse Ox 05/23/21 11:13 36.7 C 74 17 159/77 H 94 Laboratory Results Short CBC 05/23/21 Range/Units 06:58 WBC 5.91 (4.8-10.8) K/uL Hgb 11.1 L (12.0-16.0) g/dL Hct 34.5 L (37-47) % Plt Count 226 (130-400) K/uL BMP 05/23/21 06:58 Sodium 133 L Potassium 4.0 Chloride 99 Carbon Dioxide 29 BUN 13 Creatinine 0.63 Glucose 82 Calcium 9.3 Urine 05/22/21 Range/Units 14:30 Urine Color Yellow Urine Appearance Turbid A (Clear) Urine pH >= 9.0 H (4.5-7.5) Ur Specific [place] 1.012 (1.000-1.030) Urine Protein Trace H (Negative) Urine Glucose (UA) Negative (Negative)
[2021-05-23] MEDS: lamoTRIgine 25 MG TAB PO SCH (21:31)
[2021-05-23] MEDS: EZETIMIBE 10 MG TABLET PO SCH (21:31)
[2021-05-23] MEDS: ZOLPIDEM TARTRATE 5 MG TAB PO PRN (21:32)
[2021-05-23] MEDS: ENOXAPARIN INJ 40 MG/0.4 ML SYR SQ SCH (21:32)
[2021-05-23] MEDS ORDERED: NITROGLYCERIN SL 0.4 MG/TAB TAB SL STA (21:38)
[2021-05-23] MEDS: NITROGLYCERIN SL 0.4 MG/TAB TAB SL PRN ×2 (21:46→23:07)
[2021-05-23 22:05] LABS: Partial Thromboplastin Ratio 1.1; Partial Thromboplastin Time 29.6 Seconds (21.0-31.0)
[2021-05-23] MEDS ORDERED: traMADol HCL 50 MG TABLET PO STA (22:08)
[2021-05-24] MEDS: traMADol HCL 50 MG TABLET PO PRN ×2 (04:01→21:23)
[2021-05-24] MEDS: NITROGLYCERIN SL 0.4 MG/TAB TAB SL PRN (04:16)
[2021-05-24 04:58] LABS: Partial Thromboplastin Ratio 1.2; Partial Thromboplastin Time 31.7 Seconds (21.0-31.0)
[2021-05-24] MEDS: DICLOFENAC SOD 1% GEL 100 GM TUBE EXT SCH ×4 (05:30→23:44)
--- NOTE | 2021-05-24 06:26 | Communication Note ---
Date of Service: May 24, 2021 Notified by RN of sharp central chest pain and new pain left forearm. Patient thinks she might have pulled something. Chest pain relieved by nitro later on as per RN EKG as per my interpretation: Rate 65, NSR, LAD, LAFB, nonspecific T wave abnormalities AP Chest pain History chronic pain Rule out ACS given patient risk factors Serial cardiac enzymes Will relay to AM provider.
--- NOTE | 2021-05-24 06:39 | XRay Report ---
XR forearm LT 2V HISTORY: 76 years-old Female pain . Acute pain of the left forearm COMPARISON: Left wrist radiographs 11/04/2020 TECHNIQUE: 2 views of the left forearm FINDINGS: Osteoarthritis of the wrist and elbow. Mild dorsal soft tissue swelling of the proximal to mid forear m. Apparent widening of the scapholunate interval redemonstrated. Demineralized appearance of the bon es. There is no acute fracture, dislocation, osseous erosion or opaque foreign body. IMPRESSION: Soft tissue swelling without acute fracture. ACT 112: Negative or not required by law. The above report was generated using voice recognition software. It may contain grammatical, syntax o r spelling errors. Electronically signed by: Ney Khan M.D. 05/24/2021 6:38 AM
[2021-05-24] MEDS: LACTASE 3000 UNIT TAB PO SCH ×3 (08:16→16:08)
[2021-05-24] MEDS: ACETAMINOPHEN 500 MG TAB PO SCH ×3 (08:17→23:44)
[2021-05-24] MEDS: amLODIPine BESYLATE 5 MG TAB PO SCH (08:18)
[2021-05-24] MEDS: ASPIRIN 81 MG ECTAB PO SCH (08:18)
[2021-05-24] MEDS: ADVANCED PROBIOTIC 1250 MG CAPSULE PO SCH (08:18)
[2021-05-24] MEDS: GABAPENTIN 100 MG CAP PO SCH ×3 (08:18→21:23)
[2021-05-24] MEDS: MAGNESIUM OXIDE 400 MG TAB PO SCH ×2 (08:19→21:23)
[2021-05-24] MEDS: PANTOprazole 40 MG TAB PO SCH (08:19)
[2021-05-24] MEDS: METOPROLOL TARTRATE 25 MG TAB PO SCH ×2 (08:19→21:23)
[2021-05-24] MEDS: DOCUSATE SODIUM/SENNA 50/8.6MG TAB PO SCH (08:19)
[2021-05-24] MEDS: POTASSIUM CHLORIDE 10 MEQ TABCR PO SCH ×2 (08:20→21:23)
[2021-05-24] MEDS: LIDOCAINE 5% 1 PATCH TD SCH (08:20)
[2021-05-24] MEDS: FERROUS SULFATE 325 MG TAB PO SCH (10:47)
--- NOTE | 2021-05-24 12:12 | Electrocardiogram Report ---
Test Reason : Blood Pressure : / mmHG Vent. Rate : 066 BPM Atrial Rate : 066 BPM P-R Int : 190 ms QRS Dur : 066 ms QT Int : 396 ms P-R-T Axes : -01 -23 -64 degrees QTc Int : 415 ms Poor data quality, interpretation may be adversely affected Normal sinus rhythm Minimal voltage criteria for LVH, may be normal variant Poor R wave progression, consider anterior HI vs. lead placement vs. LVH Abnormal ECG Confirmed by Ronny Sampson ([id number]) on 05/24/2021 12:12:27 PM Referred By: REFERRED SELF Confirmed By:Jeromy Sampson
--- NOTE | 2021-05-24 12:16 | Electrocardiogram Report ---
Test Reason : Blood Pressure : / mmHG Vent. Rate : 060 BPM Atrial Rate : 060 BPM P-R Int : 224 ms QRS Dur : 062 ms QT Int : 388 ms P-R-T Axes : 092 -20 -26 degrees QTc Int : 388 ms Poor data quality, interpretation may be adversely affected probably Sinus rhythm with 1st degree A-V block possible Inferior infarct (cited on or before 23-MAY-2021) Abnormal ECG Confirmed by Ronny Sampson ([id number]) on 05/24/2021 12:16:23 PM Referred By: REFERRED SELF Confirmed By:Jeromy Sampson
[2021-05-24] MEDS: ONDANSETRON INJ 2 MG/ML 2 ML VIAL IV PRN (12:19)
[2021-05-24] MEDS: risperiDONE 0.5 MG TABLET PO SCH (13:50)
[2021-05-24] MEDS ORDERED: GLYCERIN ADULT 12 SUPP/BOX SUPP PR ONE (18:52)
--- NOTE | 2021-05-24 19:27 | Hospitalist Progress Note ---
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 Prolonged hospital course for lack of disposition. UTI sx pt reported suprapubic pain on 05/22 cheng exchanged 05/22 and UA obtained and no bacteruria she is afebrile and wbc WNL no active infection Pneumonia Admission CXR - bibasilar infiltration more on the right could be secondary to aspiration versus HCAP Initial lactic acid 3.2---> 1.9, no other signs of sepsis. MRSA screen negative Zosyn 03/12 --> change to Augmentin 03/14 -->Levaquin 03/15 d/t E.cloacae and E. 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 On Ambien. 04/18 - visual and auditory hallucinations, worsening delusions/paranoia. Per psychiatry, tapered Risperdal in favor of trial of Zyprexa 2.5 mg at bedtime. Zyprexa increased to 5 mg at bedtime on 04/22 04/24 - Decrease Zyprexa back to 2.5mg qhs given emergence of side effects (daytime fatigue, flattening of affect and softer speech) at higher dose. May need to consider reducing dopamine agent for Parkinson's to better target psychotic symptoms versus Seroquel trail if symptoms persist on low dose Zyprexa. discussed with psychiatry, stopped Sinemet afternoon dose as it can be driving her psychosis 04/29 - DC zyprexa 05/01-Risperdal had been started 03/24 which was then cross-tapered to Olanzapine which was stopped due to worsening bradykinesia and parkinsonism side effects. Despite understanding that her Sinemet contributes to her paranoia, she would like to have this restarted. 05/02-Sinemet on hold and risperidone restarted. Seems to be more animated on risperdal per psych, continue - as of 05/15/2105/24-taking risperidone consistently, hold sinement, mentating clearly, oriented, no hallucinations noted. CAUTI:Chronic indwelling Cheng catheter History of recurrent UTIs. Patient overdue for follow-up with urology---> Alexandrea BETANCOURT to arrange for outpatient follow-up for management of her chronic Cheng UA was suggestive of infection, 03/12 urine culture Enterobacter cloacae and E. coli. Completed Levaquin. 04/18 - reports burning at Cheng site Repeat urine culture growing Enterobacter cloacae, multidrug-resistant. On meropenem Unclear if true infection or colonization ID consulted -presence of bacteriuria and pyuria expected with an indwelling catheter and has no specificity for UTI. No systemic s/sx of infection. Consider other alternatives for urinary incontinence care. Stop meropenem and observe for signs directly attributable to her infection and urinary tract before restarting. Family and patient refused for cheng catheter removal. Patient with longstanding overflow incontinence issues. Discussed increased risk for UTIs Replaced on 04/24. She refuses removal as there is an issue with frequent urinary incontinence and concern for subsequent skin breakdown, will need monthly changes Outpatient follow-up with urology Cheng exchanged 05/22/21 Chest pain - resolved -Developed chest pain on 03/27 and was transferred to [facility] with telemetry -Troponin negative x2, EKG nonischemic -Reproducible on exam, likely musculoskeletal in nature -Another episode of chest pain on 04/06 evening, EKG and troponin unremarkable resolved -Another episode of chest pain on 05/23 evening-serial enzymes and EKG not reflective of ACS, pain resolved with nitro. Outpatient followup with PCP Chronic Diastolic CHF pt with episode of decompensated CHF while hospitalized, now resolved -Echo 03/21/2021 -EF 55-60%, grade 2 diastolic dysfunction 03/14 CXR: Mild pulmonary edema. Possible small left pleural effusion 03/14 IV dose of Lasix 03/28 IV Lasix x 1 dose euvolemic today, daily weights 05/24-patient is asking for Lasix, will give small oral dose for "foot swelling" although there is none on exam. She is not on diuretics at home so will not start something consistently. 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 Fields CMT (Ddzjzcs-Isaax-Qtptx disease): S/p multiple lower extremity procedures, most recently s/p left knee closed reduction total knee arthroplasty subluxation on 02/16/2021 - patient is to remain nonweightbearing of the left lower extremity and limited weightbearing on the right lower extremity Narcotics have been stopped-added Tramadol for relief 05/04: she consistently is asking for pain meds and would like some more tonight. 05/23: tramadol PRN restarted 05/24: asking for Lyrica, however, would prefer Neurology to make that change as outpatient. Noted that her gabapentin was at 900mg TID prior to admission. Currently she is at 200mg TID. Will increase this to 600mg TID and plan to increase again to 900 TID in 7 days if no improvement in pain. If she then fails gabapentin trial, may consider Lyrica as outpatient. Restarted Mobic 7.5mg PO daily for pain per home regimen prior to arrival. Cont diclofenac gel. Abnormal Left ankle XR Chronic multiple joint pain, more on the left leg 03/15 x-ray left ankle: A 1.8 cm linear ossific density posterior to the talus may represent an avulsion fracture from the dorsal calcaneus. Clinical correlation will be essential. Orthopedic consulted for left calcaneal superior posterior avulsion fracture status post fall: High tide walking boot removed, replaced with a dorsiflexion splint with a negative relief under the left heel and lambs wool padding to provide essentially neutral support for neutral dorsiflexion of the left ankle and heel and foot. Orthopedic recommending may use the walking boot for transfers or ambulating and wheelchair as necessary. Follow-up with outpatient orthopedics. Dr. Crain, [facility] Per patient request, bilateral ankle x-rays ordered on 04/13 - ordered, unchanged, follow up with Dr. Crain Continues to have LLE discomfort. Evaluated by Favio Sofia PA-C patient with good ROM but painful. No further workup at this time Neurontin increased and Mobic added as above. Left knee pain Complaint of left knee pain Knee xray shows intact replacement, no acute abnormalities Continue knee brace and pain med Continue monitor Parkinson disease: Sinemet on hold, cont risperidone Chronic pain: Continue current regimen, minimize escalations in narcotics Will consult orthotic for left hand brace - orthotics to get a, "therapy carrott," which is a device that provides gradual ext of fingers overtime. Pt declining this and states she is to get surgery at [facility] on discharge Neurontin, Mobic, PRN tramadol DVT prophylaxis: SQ Lovenox Disposition:Medically stable; awaiting placement to facility. Marie Ceballos DO [facility] Hospitalist Admission and Anticipated Discharge Date Admission Date: March 12, 2021 Subjective 76 yo F with multiple comorbidities including chronic pain with prolonged hospital course beyond initial presentation for pneumonia and UTI -patient states she is in pain -states she has numbness in her right leg and right hand and needs to be repositioned. -RN reports she has been frequently repositioned today -patient reports swelling in her right foot and asking for Lasix -asking for Lyrica-states this was stopped because she couldn't make it to her appointment. ? -tolerating PO -reports no one got her out of bed today Review of Systems Review of Systems: All systems were reviewed and negative except as indicated above. Physical Exam Physical Exam: Gen: WD/WN, NAD, lying in bed, NAD HEENT: Normocephalic, atraumatic, mucous membranes moist Lung: Clear to Auscultation bilaterally but diminished. No wheezes/rales/rhonchi Heart: Regular rate, regular rhythm, no murmurs, rubs, or gallops Abdomen: Soft, NT, ND : Cheng Extremities: Chronic weakness, LLE wrap in place, contractures of left hand. No edema Skin: Warm and dry Results & Data Results & Data ([facility]) Vital Signs (Past 12 Hours) Vital Signs Temp Pulse Resp BP Pulse Ox 05/24/21 14:44 36.9 C 64 17 144/80 H 93 05/24/21 08:03 36.6 C 61 17 156/78 H 97 Laboratory Results Cardiac Enzymes 05/23/21 05/24/21 05/24/21 Range/Units 21:46 00:15 04:35 Troponin I < 0.03 < 0.03 < 0.03 (0-0.04) ng/ml Medications Administered Current Inpatient Medications Acetaminophen (Acetaminophen 500 Mg Tab) 500 mg PO Q8@0000,0800,1600 [facility] Stop: 06/10/21 15:59 Last Admin: 05/24/21 16:10 Dose: 500 mg Documented by: Al Hydrox/Mg Hydrox/Simethicone (Aluminum/Magnesium Susp 30 Ml Udc) 15 ml PO Q6H PRN PRN Reason: Dyspepsia Stop: 06/19/21 14:21 Albuterol (Albut/Ipratrop 3mg/0.5mg Neb 3 Ml Vial) 3 ml NEB Q4R PRN PRN Reason: Shortness Of Breath Or Wheezing Stop: 06/10/21 10:48 Last Admin: 05/20/21 20:26 Dose: 3 ml Documented by: Amlodipine Besylate (Amlodipine Besylate 5 Mg Tab) 5 mg PO QAM [facility] Stop: 06/10/21 12:14 Last Admin: 05/24/21 08:18 Dose: 5 mg Documented by: Aspirin (Aspirin 81 Mg Ectab) 81 mg PO DAILY [facility] Stop: 06/10/21 08:59 Last Admin: 05/24/21 08:18 Dose: 81 mg Documented by: Carbidopa/Levodopa (Carbidopa/Levodopa 25/100mg Tab) 1 tab PO TID [facility] Stop: 05/31/21 13:59 Diclofenac Sodium (Diclofenac Sod 1% Gel 100 Gm Tube) 2 gm EXT Q6 [facility] Stop: 06/10/21 15:29 Last Admin: 05/24/21 16:58 Dose: 2 gm Documented by: Docusate Sodium (Docusate Sodium 100 Mg Cap) 100 mg PO DAILY PRN PRN Reason: Constipation Stop: 06/10/21 16:59 Last Admin: 05/22/21 02:06 Dose: 100 mg Documented by: Ezetimibe (Ezetimibe 10 Mg Tablet) 10 mg PO HS [facility] Stop: 06/10/21 20:59 Last Admin: 05/23/21 21:31 Dose: 10 mg Documented by: Enoxaparin Sodium (Enoxaparin Inj 40 Mg/0.4 Ml Syr) 40 mg SQ Q24H [facility] Stop: 06/10/21 20:59 Last Admin: 05/23/21 21:32 Dose: 40 mg Documented by: Ferrous Sulfate (Ferrous Sulfate 325 Mg Tab) 325 mg PO DAILY@1100 [facility] Stop: 06/10/21 10:59 Last Admin: 05/24/21 10:47 Dose: 325 mg Documented by: Gabapentin (Gabapentin 100 Mg Cap) 200 mg PO TID [facility] Stop: 06/10/21 20:59 Last Admin: 05/24/21 13:50 Dose: 200 mg Documented by: Lactase (Lactase 3000 Unit Tab) 3,000 units PO AC [facility] Stop: 06/10/21 16:59 Last Admin: 05/24/21 16:08 Dose: 3,000 units Documented by: Lactobacillus Acidoph/Casei/Rhamnos (Advanced Probiotic 1250 Mg Capsule) 2 cap PO DAILY [facility] Stop: 06/10/21 14:29 Last Admin: 05/24/21 08:18 Dose: 2 cap Documented by: Lamotrigine (Lamotrigine 25 Mg Tab) 75 mg PO HS [facility] Stop: 06/10/21 20:59 Last Admin: 05/23/21 21:31 Dose: 75 mg Documented by: Lidocaine (Lidocaine 5% 1 Patch) 1 patch TD DAILY [facility] Stop: 06/10/21 08:59 Last Admin: 05/24/21 08:20 Dose: 1 patch Documented by: Magnesium Oxide (Magnesium Oxide 400 Mg Tab) 400 mg PO BID [facility] Stop: 06/10/21 20:59 Last Admin: 05/24/21 08:19 Dose: 400 mg Documented by: Metoprolol Tartrate (Metoprolol Tartrate 25 Mg Tab) 25 mg PO BID [facility] Stop: 06/10/21 20:24 Last Admin: 05/24/21 08:19 Dose: 25 mg Documented by: Miscellaneous (Remove Lidoderm Patch) 1 ea N/A 2100 [facility] Stop: 06/13/21 20:59 Last Admin: 05/23/21 21:47 Dose: 1 ea Documented by: Nitroglycerin (Nitroglycerin Sl 0.4 Mg/Tab Tab) 0.4 mg SL PRN PRN PRN Reason: Chest Pain Stop: 06/10/21 21:40 Last Admin: 05/24/21 04:16 Dose: 0.4 mg Documented by: Ondansetron HCl (Ondansetron Inj 2 Mg/Ml 2 Ml Vial) 4 mg IV Q8H PRN PRN Reason: Nausea And Vomiting Stop: 06/01/21 18:12 Last Admin: 05/24/21 12:19 Dose: 4 mg Documented by: Pantoprazole Sodium (Pantoprazole 40 Mg Tab) 40 mg PO DAILY [facility] Stop: 06/10/21 08:59 Last Admin: 05/24/21 08:19 Dose: 40 mg Documented by: Polyethylene Glycol (Polyethylene (Miralax) 17 Gm Pack) 17 gm PO DAILY PRN PRN Reason: Constipation Stop: 06/10/21 04:42 Last Admin: 05/21/21 08:09 Dose: 17 gm Documented by: Potassium Chloride (Potassium Chloride 10 Meq Tabcr) 10 meq PO BID [facility] Stop: 06/10/21 20:59 Last Admin: 05/24/21 08:20 Dose: 10 meq Documented by: Risperidone (Risperidone 0.5 Mg Tablet) 0.5 mg PO TODAY@1400 [facility] Stop: 06/01/21 13:59 Last Admin: 05/24/21 13:50 Dose: 0.5 mg Documented by: Senna/Docusate Sodium (Docusate Sodium/Senna 50/8.6mg Tab) 1 tab PO QAM [facility] Stop: 06/10/21 04:44 Last Admin: 05/24/21 08:19 Dose: 1 tab Documented by: Tramadol HCl (Tramadol Hcl 50 Mg Tablet) 50 mg PO Q4H PRN PRN Reason: Pain Stop: 06/23/21 08:01 Zolpidem Tartrate (Zolpidem Tartrate 5 Mg Tab) 5 mg PO HS PRN PRN Reason: Sleep Stop: 06/05/21 21:55 Last Admin: 05/23/21 21:32 Dose: 5 mg Documented by:
[2021-05-24] MEDS: lamoTRIgine 25 MG TAB PO SCH (21:22)
[2021-05-24] MEDS: ENOXAPARIN INJ 40 MG/0.4 ML SYR SQ SCH (21:22)
[2021-05-24] MEDS: ZOLPIDEM TARTRATE 5 MG TAB PO PRN (21:23)
[2021-05-24] MEDS: EZETIMIBE 10 MG TABLET PO SCH (21:23)
[2021-05-25] MEDS: DICLOFENAC SOD 1% GEL 100 GM TUBE EXT SCH ×3 (05:59→18:34)
[2021-05-25] MEDS: LIDOCAINE 5% 1 PATCH TD SCH (08:01)
[2021-05-25] MEDS: ADVANCED PROBIOTIC 1250 MG CAPSULE PO SCH (08:01)
[2021-05-25] MEDS: MAGNESIUM OXIDE 400 MG TAB PO SCH ×2 (08:01→20:40)
[2021-05-25] MEDS: GABAPENTIN 100 MG CAP PO SCH (08:02)
[2021-05-25] MEDS: METOPROLOL TARTRATE 25 MG TAB PO SCH ×2 (08:02→20:40)
[2021-05-25] MEDS: ASPIRIN 81 MG ECTAB PO SCH (08:02)
[2021-05-25] MEDS: DOCUSATE SODIUM/SENNA 50/8.6MG TAB PO SCH (08:02)
[2021-05-25] MEDS: POTASSIUM CHLORIDE 10 MEQ TABCR PO SCH ×2 (08:02→20:41)
[2021-05-25] MEDS: LACTASE 3000 UNIT TAB PO SCH ×3 (08:02→16:20)
[2021-05-25] MEDS: amLODIPine BESYLATE 5 MG TAB PO SCH (08:02)
[2021-05-25] MEDS: PANTOprazole 40 MG TAB PO SCH (08:03)
[2021-05-25] MEDS: ACETAMINOPHEN 500 MG TAB PO SCH ×2 (08:04→16:00)
[2021-05-25] MEDS: MELOXICAM 7.5 MG TAB PO SCH (10:39)
[2021-05-25] MEDS: FUROSEMIDE 20 MG TAB PO SCH (10:40)
[2021-05-25] MEDS: FERROUS SULFATE 325 MG TAB PO SCH (10:41)
--- NOTE | 2021-05-25 13:10 | Hospitalist Progress Note ---
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 Prolonged hospital course for lack of disposition. UTI sx pt reported suprapubic pain on 05/22 cheng exchanged 05/22 and UA obtained and no bacteruria she is afebrile and wbc WNL no active infection Pneumonia Admission CXR - bibasilar infiltration more on the right could be secondary to aspiration versus HCAP Initial lactic acid 3.2---> 1.9, no other signs of sepsis. MRSA screen negative Zosyn 03/12 --> change to Augmentin 03/14 -->Levaquin 03/15 d/t E.cloacae and E. 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 On Ambien. 04/18 - visual and auditory hallucinations, worsening delusions/paranoia. Per psychiatry, tapered Risperdal in favor of trial of Zyprexa 2.5 mg at bedtime. Zyprexa increased to 5 mg at bedtime on 04/22 04/24 - Decrease Zyprexa back to 2.5mg qhs given emergence of side effects (daytime fatigue, flattening of affect and softer speech) at higher dose. May need to consider reducing dopamine agent for Parkinson's to better target psychotic symptoms versus Seroquel trail if symptoms persist on low dose Zyprexa. discussed with psychiatry, stopped Sinemet afternoon dose as it can be driving her psychosis 04/29 - DC zyprexa 05/01-Risperdal had been started 03/24 which was then cross-tapered to Olanzapine which was stopped due to worsening bradykinesia and parkinsonism side effects. Despite understanding that her Sinemet contributes to her paranoia, she would like to have this restarted. 05/02-Sinemet on hold and risperidone restarted. Seems to be more animated on risperdal per psych, continue - as of 05/15/2105/24-taking risperidone consistently, hold sinement, mentating clearly, oriented, no hallucinations noted. CAUTI:Chronic indwelling Cheng catheter History of recurrent UTIs. Patient overdue for follow-up with urology---> Alexandrea BETANCOURT to arrange for outpatient follow-up for management of her chronic Cheng UA was suggestive of infection, 03/12 urine culture Enterobacter cloacae and E. coli. Completed Levaquin. 04/18 - reports burning at Cheng site Repeat urine culture growing Enterobacter cloacae, multidrug-resistant. On meropenem Unclear if true infection or colonization ID consulted -presence of bacteriuria and pyuria expected with an indwelling catheter and has no specificity for UTI. No systemic s/sx of infection. Consider other alternatives for urinary incontinence care. Stop meropenem and observe for signs directly attributable to her infection and urinary tract before restarting. Family and patient refused for cheng catheter removal. Patient with longstanding overflow incontinence issues. Discussed increased risk for UTIs Replaced on 04/24. She refuses removal as there is an issue with frequent urinary incontinence and concern for subsequent skin breakdown, will need monthly changes Outpatient follow-up with urology Cheng exchanged 05/22/21 Chest pain - resolved -Developed chest pain on 03/27 and was transferred to [facility] with telemetry -Troponin negative x2, EKG nonischemic -Reproducible on exam, likely musculoskeletal in nature -Another episode of chest pain on 04/06 evening, EKG and troponin unremarkable resolved -Another episode of chest pain on 05/23 evening-serial enzymes and EKG not reflective of ACS, pain resolved with nitro. Outpatient followup with PCP Chronic Diastolic CHF pt with episode of decompensated CHF while hospitalized, now resolved -Echo 03/21/2021 -EF 55-60%, grade 2 diastolic dysfunction 03/14 CXR: Mild pulmonary edema. Possible small left pleural effusion 03/14 IV dose of Lasix 03/28 IV Lasix x 1 dose euvolemic today, daily weights 05/24-patient is asking for Lasix, will give small oral dose for "foot swelling" although there is none on exam. She is not on diuretics at home so will not start something consistently TIA Patient was a stroke alert overnight (03/20-03/21) Likely TIA - involving the right hemisphere with left facial droop yet on imaging has no evidence for a completed event Head and neck CTA, brain MRI unremarkable for acute findings Neurology consulted, input appreciated Do not have sufficient evidence to recommend adding Plavix to her aspirin but will observe her for recurrent events and if they do enlarge then certainly would add another antiplatelet agent Recommend to continue aspirin 81 mg daily, and 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 Fields [facility] (Tbanira-Kaeao-Vexbn disease): S/p multiple lower extremity procedures, most recently s/p left knee closed reduction total knee arthroplasty subluxation on 02/16/2021 - patient is to remain nonweightbearing of the left lower extremity and limited weightbearing on the right lower extremity Narcotics have been stopped-added Tramadol for relief 05/04: she consistently is asking for pain meds and would like some more tonight. 05/23: tramadol PRN restarted 05/24: asking for Lyrica, however, would prefer Neurology to make that change as outpatient. Noted that her gabapentin was at 900mg TID prior to admission. Currently she is at 200mg TID. Will increase this to 600mg TID and plan to increase again to 900 TID in 7 days if no improvement in pain. If she then fails gabapentin trial, may consider Lyrica as outpatient. Restarted Mobic 7.5mg PO daily for pain per home regimen prior to arrival. Cont diclofenac gel. Patient is bedbound and transferring is a safety issue. 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 Clinical correlation will be essential. Orthopedic consulted for left calcaneal superior posterior avulsion fracture status post fall: High tide walking boot removed, replaced with a dorsiflexion splint with a negative relief under the left heel and lambs wool padding to provide essentially neutral support for neutral dorsiflexion of the left ankle and heel and foot. Orthopedic recommending may use the walking boot for transfers or ambulating and wheelchair as necessary. Follow-up with outpatient orthopedics. Dr. Crain, [facility] Per patient request, bilateral ankle x-rays ordered on 04/13 - ordered, unchanged, follow up with Dr. Crain Continues to have LLE discomfort. Evaluated by Favio Sofia PA-C patient with good ROM but painful. No further workup at this time Neurontin increased and Mobic added as above. Left knee pain Complaint of left knee pain Knee xray shows intact replacement, no acute abnormalities Continue knee brace and pain med Continue monitor Parkinson disease: Sinemet on hold, cont risperidone Chronic pain: Continue current regimen, minimize escalations in narcotics Will consult orthotic for left hand brace - orthotics to get a, "therapy carrott," which is a device that provides gradual ext of fingers overtime. Pt declining this and states she is to get surgery at [facility] on discharge Neurontin, Mobic, PRN tramadol DVT prophylaxis: SQ Lovenox Disposition:Medically stable; awaiting placement to facility vs home with services. Admission and Anticipated Discharge Date Admission Date: March 12, 2021 Supervising Physician Co-Signing Physician Notes I have seen and examined the patient and have discussed the case with the provider above. I agree with the assessment and plan as stated. No pain reported tonight. We discussed that her gabapentin has been increased and Mobic has been added back. She still reports swelling in her foot although there is no swelling present. Lasix was given this am. We discussed pushing any transition of gabapentin to Lyrica to Neurology clinic as outpatient. She verbalized understanding of this. Tolerating PO, no other issues except she is bothered by a whistling noise from the window. Unremarkable physical exam consistent with that above. DO Vitaliy Ceballos 76 yo F with multiple comorbidities including chronic pain with prolonged hospital course beyond initial presentation for pneumonia and UTI. Continue to have chronic pain in lower extremities. Tramadol resumed yesterday PRN. Has been repositioned by nursing today. Eating a lollipop, no issues with N/V or abdominal pain. Cheng catheter in place draining light yellow urine. Endorses a bowel movement in evening. No new complaints. Review of Systems Review of Systems: All systems were reviewed and negative except as indicated above. Physical Exam Physical Exam: Gen: WD/WN, NAD, lying in bed, NAD HEENT: Normocephalic, atraumatic, mucous membranes moist Lung: Clear to Auscultation bilaterally but diminished. No wheezes/rales/rhonchi Heart: Regular rate, regular rhythm, no murmurs, rubs, or gallops Abdomen: Soft, NT, ND : + Cheng Extremities: Chronic weakness, LLE wrap in place, contractures of left hand. No edema Skin: Warm and dry Results & Data Results & Data ([facility]) Vital Signs (Past 12 Hours) Vital Signs Temp Pulse Resp BP Pulse Ox 05/25/21 07:59 36.5 C 60 16 131/73 98
[2021-05-25] MEDS: risperiDONE 0.5 MG TABLET PO SCH (14:21)
[2021-05-25] MEDS: traMADol HCL 50 MG TABLET PO PRN ×2 (14:26→20:38)
[2021-05-25] MEDS: GABAPENTIN 300 MG CAP PO SCH ×2 (14:26→20:41)
[2021-05-25] MEDS: ALBUT/IPRATROP 3MG/0.5MG NEB 3 ML VIAL NEB PRN (15:37)
[2021-05-25] MEDS: ENOXAPARIN INJ 40 MG/0.4 ML SYR SQ SCH (20:39)
[2021-05-25] MEDS: EZETIMIBE 10 MG TABLET PO SCH (20:40)
[2021-05-25] MEDS: lamoTRIgine 25 MG TAB PO SCH (20:40)
[2021-05-25] MEDS: ZOLPIDEM TARTRATE 5 MG TAB PO PRN (21:49)
[2021-05-26] MEDS: DICLOFENAC SOD 1% GEL 100 GM TUBE EXT SCH ×4 (00:42→17:33)
[2021-05-26] MEDS: ACETAMINOPHEN 500 MG TAB PO SCH ×3 (00:42→16:35)
[2021-05-26] MEDS: MAGNESIUM OXIDE 400 MG TAB PO SCH ×2 (07:56→20:43)
[2021-05-26] MEDS: METOPROLOL TARTRATE 25 MG TAB PO SCH ×2 (07:56→21:02)
[2021-05-26] MEDS: ASPIRIN 81 MG ECTAB PO SCH (07:57)
[2021-05-26] MEDS: amLODIPine BESYLATE 5 MG TAB PO SCH (07:57)
[2021-05-26] MEDS: POTASSIUM CHLORIDE 10 MEQ TABCR PO SCH ×2 (07:57→20:44)
[2021-05-26] MEDS: DOCUSATE SODIUM/SENNA 50/8.6MG TAB PO SCH (07:57)
[2021-05-26] MEDS: FUROSEMIDE 20 MG TAB PO SCH (07:58)
[2021-05-26] MEDS: ADVANCED PROBIOTIC 1250 MG CAPSULE PO SCH (07:58)
[2021-05-26] MEDS: PANTOprazole 40 MG TAB PO SCH (07:58)
[2021-05-26] MEDS: MELOXICAM 7.5 MG TAB PO SCH (07:58)
[2021-05-26] MEDS: LIDOCAINE 5% 1 PATCH TD SCH (07:59)
[2021-05-26] MEDS: LACTASE 3000 UNIT TAB PO SCH ×3 (07:59→16:31)
[2021-05-26] MEDS: GABAPENTIN 300 MG CAP PO SCH ×3 (07:59→20:44)
[2021-05-26] MEDS: FERROUS SULFATE 325 MG TAB PO SCH (11:04)
--- NOTE | 2021-05-26 13:02 | Psychiatric Progress Note ---
Date of Service May 26, 2021 Impression / Recommendations Impression 76 yo female with history of paranoid ideations related to cognitive decline admitted for superimposed delirium resulting in worsening hallucinations and delusions. Started Risperdal 03/24/21 which was then cross-tapered to olanzapine due to worsening bradykinesia and parkinsonism side effects. This was then tapered back to risperidone per her request and limited benefit from olanzapine for paranoia and delusions. 05/26/21: improved from a psychosis standpoint, Parkinsonian appearance, may be some contribution from Risperdal but has similar symptoms off antipsychotics. Plan: continue risperidone 0.5 mg q daily at 2pm. Will clarify with family if Dr. Guillen is able to see the patient outside of the hospital via telehealth for follow up since appears to be prepping to return home with home health. 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 Maxwell is a 76 yo female from [place], admitted on 03/16/21 for pneumonia and UTI. [facility]. Chief Complaint "I want to go home". Review of Systems Notes baseline pain, tremor, drooling (mild) Subjective Subjective Patient was seen & assessed and interval progress reviewed with nursing. Thought a piece of masking tape left on her window sill was a bees nest and made her nervous because she is allergic. Otherwise withouth complaints today. Face appears swollen and speech slowed. Physical Exam Psychiatric Orientation: alert, oriented to person and oriented to place Apperance: appropriately groomed Eye Contact: + fair eye contact Motor Behavior: no abnormal motor movements; n EPS Speech: + abnormal rate/rhythm/volume of speech Affect: + flat affect Mood: + anxious mood Thought Process: + thought process not clear or coherent Thought Content: reality based without delusions Suicidal Thoughts: denies suicidal thoughts Homicidal Thoughts: denies homicidal thoughts Hallucinations: no auditory hallucinations and no visual hallucinations Cognition: attention grossly intact Estimated Intelligence: consistent with education level Vital Signs (Past 24 Hours) Last Vital Signs Temp 36.6 C 05/26/21 07:17 Pulse 59 L 05/26/21 07:17 Resp 16 05/26/21 07:17 BP 127/77 05/26/21 07:17 Pulse Ox 97 05/26/21 07:17 Results & Data ([facility]) Current Inpatient Medications Current Inpatient Medications: Current Inpatient Medications Acetaminophen (Acetaminophen 500 Mg Tab) 500 mg PO Q8@0000,0800,1600 [facility] Stop: 06/10/21 15:59 Last Admin: 05/26/21 07:57 Dose: 500 mg Documented by: Al Hydrox/Mg Hydrox/Simethicone (Aluminum/Magnesium Susp 30 Ml Udc) 15 ml PO Q6H PRN PRN Reason: Dyspepsia Stop: 06/19/21 14:21 Albuterol (Albut/Ipratrop 3mg/0.5mg Neb 3 Ml Vial) 3 ml NEB Q4R PRN PRN Reason: Shortness Of Breath Or Wheezing Stop: 06/10/21 10:48 Last Admin: 05/25/21 15:37 Dose: 3 ml Documented by: Amlodipine Besylate (Amlodipine Besylate 5 Mg Tab) 5 mg PO QAM [facility] Stop: 06/10/21 12:14 Last Admin: 05/26/21 07:57 Dose: 5 mg Documented by: Aspirin (Aspirin 81 Mg Ectab) 81 mg PO DAILY [facility] Stop: 06/10/21 08:59 Last Admin: 05/26/21 07:57 Dose: 81 mg Documented by: Carbidopa/Levodopa (Carbidopa/Levodopa 25/100mg Tab) 1 tab PO TID [facility] Stop: 05/31/21 13:59 Diclofenac Sodium (Diclofenac Sod 1% Gel 100 Gm Tube) 2 gm EXT Q6 [facility] Stop: 06/10/21 15:29 Last Admin: 05/26/21 11:05 Dose: 2 gm Documented by: Docusate Sodium (Docusate Sodium 100 Mg Cap) 100 mg PO DAILY PRN PRN Reason: Constipation Stop: 06/10/21 16:59 Last Admin: 05/22/21 02:06 Dose: 100 mg Documented by: Ezetimibe (Ezetimibe 10 Mg Tablet) 10 mg PO HS [facility] Stop: 06/10/21 20:59 Last Admin: 05/25/21 20:40 Dose: 10 mg Documented by: Enoxaparin Sodium (Enoxaparin Inj 40 Mg/0.4 Ml Syr) 40 mg SQ Q24H [facility] Stop: 06/10/21 20:59 Last Admin: 05/25/21 20:39 Dose: 40 mg Documented by: Ferrous Sulfate (Ferrous Sulfate 325 Mg Tab) 325 mg PO DAILY@1100 [facility] Stop: 06/10/21 10:59 Last Admin: 05/26/21 11:04 Dose: 325 mg Documented by: Furosemide (Furosemide 20 Mg Tab) 10 mg PO QAM [facility] Stop: 06/24/21 09:29 Last Admin: 05/26/21 07:58 Dose: 10 mg Documented by: Gabapentin (Gabapentin 300 Mg Cap) 600 mg PO TID [facility] Stop: 06/24/21 13:59 Last Admin: 05/26/21 07:59 Dose: 600 mg Documented by: Lactase (Lactase 3000 Unit Tab) 3,000 units PO AC [facility] Stop: 06/10/21 16:59 Last Admin: 05/26/21 11:04 Dose: 3,000 units Documented by: Lamotrigine (Lamotrigine 25 Mg Tab) 75 mg PO HS [facility] Stop: 06/10/21 20:59 Last Admin: 05/25/21 20:40 Dose: 75 mg Documented by: Lidocaine (Lidocaine 5% 1 Patch) 1 patch TD DAILY [facility] Stop: 06/10/21 08:59 Last Admin: 05/26/21 07:59 Dose: 1 patch Documented by: Magnesium Oxide (Magnesium Oxide 400 Mg Tab) 400 mg PO BID [facility] Stop: 06/10/21 20:59 Last Admin: 05/26/21 07:56 Dose: 400 mg Documented by: Meloxicam (Meloxicam 7.5 Mg Tab) 7.5 mg PO QAM [facility] Stop: 06/24/21 09:29 Last Admin: 05/26/21 07:58 Dose: 7.5 mg Documented by: Metoprolol Tartrate (Metoprolol Tartrate 25 Mg Tab) 25 mg PO BID [facility] Stop: 06/10/21 20:24 Last Admin: 05/26/21 07:56 Dose: 25 mg Documented by: Miscellaneous (Remove Lidoderm Patch) 1 ea N/A 2100 [facility] Stop: 06/13/21 20:59 Last Admin: 05/25/21 20:40 Dose: 1 ea Documented by: Nitroglycerin (Nitroglycerin Sl 0.4 Mg/Tab Tab) 0.4 mg SL PRN PRN PRN Reason: Chest Pain Stop: 06/10/21 21:40 Last Admin: 05/24/21 04:16 Dose: 0.4 mg Documented by: Ondansetron HCl (Ondansetron Inj 2 Mg/Ml 2 Ml Vial) 4 mg IV Q8H PRN PRN Reason: Nausea And Vomiting Stop: 06/01/21 18:12 Last Admin: 05/24/21 12:19 Dose: 4 mg Documented by: Pantoprazole Sodium (Pantoprazole 40 Mg Tab) 40 mg PO DAILY [facility] Stop: 06/10/21 08:59 Last Admin: 05/26/21 07:58 Dose: 40 mg Documented by: Polyethylene Glycol (Polyethylene (Miralax) 17 Gm Pack) 17 gm PO DAILY PRN PRN Reason: Constipation Stop: 06/10/21 04:42 Last Admin: 05/21/21 08:09 Dose: 17 gm Documented by: Potassium Chloride (Potassium Chloride 10 Meq Tabcr) 10 meq PO BID [facility] Stop: 06/10/21 20:59 Last Admin: 05/26/21 07:57 Dose: 10 meq Documented by: Risperidone (Risperidone 0.5 Mg Tablet) 0.5 mg PO TODAY@1400 [facility] Stop: 06/01/21 13:59 Last Admin: 05/25/21 14:21 Dose: 0.5 mg Documented by: Senna/Docusate Sodium (Docusate Sodium/Senna 50/8.6mg Tab) 1 tab PO QAM [facility] Stop: 06/10/21 04:44 Last Admin: 05/26/21 07:57 Dose: 1 tab Documented by: Tramadol HCl (Tramadol Hcl 50 Mg Tablet) 50 mg PO Q4H PRN PRN Reason: Pain Stop: 06/23/21 08:01 Last Admin: 05/25/21 20:38 Dose: 50 mg Documented by: Zolpidem Tartrate (Zolpidem Tartrate 5 Mg Tab) 5 mg PO HS PRN PRN Reason: Sleep Stop: 06/05/21 21:55 Last Admin: 05/25/21 21:49 Dose: 5 mg Documented by:
[2021-05-26] MEDS: risperiDONE 0.5 MG TABLET PO SCH (13:55)
--- NOTE | 2021-05-26 15:55 | Hospitalist Progress Note ---
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 Prolonged hospital course for lack of disposition. UTI sx pt reported suprapubic pain on 05/22 cheng exchanged 05/22 and UA obtained and no bacteruria she is afebrile and wbc WNL no active infection Pneumonia Admission CXR - bibasilar infiltration more on the right could be secondary to aspiration versus HCAP Initial lactic acid 3.2---> 1.9, no other signs of sepsis. MRSA screen negative Zosyn 03/12 --> change to Augmentin 03/14 -->Levaquin 03/15 d/t E.cloacae and E. 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 On Ambien. 04/18 - visual and auditory hallucinations, worsening delusions/paranoia. Per psychiatry, tapered Risperdal in favor of trial of Zyprexa 2.5 mg at bedtime. Zyprexa increased to 5 mg at bedtime on 04/22 04/24 - Decrease Zyprexa back to 2.5mg qhs given emergence of side effects (daytime fatigue, flattening of affect and softer speech) at higher dose. May need to consider reducing dopamine agent for Parkinson's to better target psychotic symptoms versus Seroquel trail if symptoms persist on low dose Zyprexa. discussed with psychiatry, stopped Sinemet afternoon dose as it can be driving her psychosis 04/29 - DC zyprexa 05/01-Risperdal had been started 03/24 which was then cross-tapered to Olanzapine which was stopped due to worsening bradykinesia and parkinsonism side effects. Despite understanding that her Sinemet contributes to her paranoia, she would like to have this restarted. 05/02-Sinemet on hold and risperidone restarted. Seems to be more animated on risperdal per psych, continue - as of 05/15/2105/24-taking risperidone consistently, hold sinement, mentating clearly, oriented, no hallucinations noted. CAUTI:Chronic indwelling Cheng catheter History of recurrent UTIs. Patient overdue for follow-up with urology---> Alexandrea BETANCOURT to arrange for outpatient follow-up for management of her chronic Cheng UA was suggestive of infection, 03/12 urine culture Enterobacter cloacae and E. coli. Completed Levaquin. 04/18 - reports burning at Cheng site Repeat urine culture growing Enterobacter cloacae, multidrug-resistant. On meropenem Unclear if true infection or colonization ID consulted -presence of bacteriuria and pyuria expected with an indwelling catheter and has no specificity for UTI. No systemic s/sx of infection. Consider other alternatives for urinary incontinence care. Stop meropenem and observe for signs directly attributable to her infection and urinary tract before restarting. Family and patient refused for cheng catheter removal. Patient with longstanding overflow incontinence issues. Discussed increased risk for UTIs Replaced on 04/24. She refuses removal as there is an issue with frequent urinary incontinence and concern for subsequent skin breakdown, will need monthly changes Outpatient follow-up with urology Cheng exchanged 05/22/21 Chest pain - resolved -Developed chest pain on 03/27 and was transferred to [facility] with telemetry -Troponin negative x2, EKG nonischemic -Reproducible on exam, likely musculoskeletal in nature -Another episode of chest pain on 04/06 evening, EKG and troponin unremarkable resolved -Another episode of chest pain on 05/23 evening-serial enzymes and EKG not reflective of ACS, pain resolved with nitro. Outpatient followup with PCP Chronic Diastolic CHF pt with episode of decompensated CHF while hospitalized, now resolved -Echo 03/21/2021 -EF 55-60%, grade 2 diastolic dysfunction 03/14 CXR: Mild pulmonary edema. Possible small left pleural effusion 03/14 IV dose of Lasix 03/28 IV Lasix x 1 dose euvolemic today, daily weights 05/24-patient is asking for Lasix, will give small oral dose for "foot swelling" although there is none on exam. She is not on diuretics at home so will not start something consistently TIA Patient was a stroke alert overnight (03/20-03/21) Likely TIA - involving the right hemisphere with left facial droop yet on imaging has no evidence for a completed event Head and neck CTA, brain MRI unremarkable for acute findings Neurology consulted, input appreciated Do not have sufficient evidence to recommend adding Plavix to her aspirin but will observe her for recurrent events and if they do enlarge then certainly would add another antiplatelet agent Recommend to continue aspirin 81 mg daily, and 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 Fields [facility] (Eeoozks-Fyglk-Rxvby disease): S/p multiple lower extremity procedures, most recently s/p left knee closed reduction total knee arthroplasty subluxation on 02/16/2021 - patient is to remain nonweightbearing of the left lower extremity and limited weightbearing on the right lower extremity Narcotics have been stopped-added Tramadol for relief 05/04: she consistently is asking for pain meds and would like some more tonight. 05/23: tramadol PRN restarted 05/24: asking for Lyrica, however, would prefer Neurology to make that change as outpatient. Noted that her gabapentin was at 900mg TID prior to admission. Currently she is at 200mg TID. Will increase this to 600mg TID and plan to increase again to 900 TID in 7 days if no improvement in pain. If she then fails gabapentin trial, may consider Lyrica as outpatient. Restarted Mobic 7.5mg PO daily for pain per home regimen prior to arrival. Cont diclofenac gel. Patient is bedbound and transferring is a safety issue. 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 Clinical correlation will be essential. Orthopedic consulted for left calcaneal superior posterior avulsion fracture status post fall: High tide walking boot removed, replaced with a dorsiflexion splint with a negative relief under the left heel and lambs wool padding to provide essentially neutral support for neutral dorsiflexion of the left ankle and heel and foot. Orthopedic recommending may use the walking boot for transfers or ambulating and wheelchair as necessary. Follow-up with outpatient orthopedics. Dr. Crain, [facility] Per patient request, bilateral ankle x-rays ordered on 04/13 - ordered, unchanged, follow up with Dr. Crain Continues to have LLE discomfort. Evaluated by Favio Sofia PA-C patient with good ROM but painful. No further workup at this time Neurontin increased and Mobic added as above. Left knee pain Complaint of left knee pain Knee xray shows intact replacement, no acute abnormalities Continue knee brace and pain med Continue monitor Parkinson disease: Sinemet on hold, cont risperidone Chronic pain: Continue current regimen, minimize escalations in narcotics Will consult orthotic for left hand brace - orthotics to get a, "therapy carrott," which is a device that provides gradual ext of fingers overtime. Pt declining this and states she is to get surgery at [facility] on discharge Neurontin, Mobic, PRN tramadol DVT prophylaxis: SQ Lovenox Disposition:Medically stable; awaiting placement to facility vs home with services. Marie Ceballos DO [facility] Hospitalist Admission and Anticipated Discharge Date Admission Date: March 12, 2021 Subjective 76 yo F with multiple comorbidities including chronic pain with prolonged hospital course beyond initial presentation for pneumonia and UTI -pain in improved -she noted that she drools frequently -tolerating PO -RN reports she has been frequently repositioned today -patient reports swelling in her right foot and asking for Lasix Review of Systems Review of Systems: All systems were reviewed and negative except as indicated above. Physical Exam Physical Exam: Gen: WD/WN, NAD, lying in bed, NAD HEENT: Normocephalic, atraumatic, mucous membranes moist Lung: Clear to Auscultation bilaterally but diminished. No wheezes/rales/rhonchi Heart: Regular rate, regular rhythm, no murmurs, rubs, or gallops Abdomen: Soft, NT, ND : Cheng Extremities: Chronic weakness, LLE wrap in place, contractures of left hand. No edema Skin: Warm and dry Results & Data Results & Data ([facility]) Vital Signs (Past 12 Hours) Vital Signs Temp Pulse Resp BP Pulse Ox 05/26/21 14:14 36.7 C 50 L 16 131/73 99 05/26/21 07:17 36.6 C 59 L 16 127/77 97 Medications Administered Current Inpatient Medications Acetaminophen (Acetaminophen 500 Mg Tab) 500 mg PO Q8@0000,0800,1600 [facility] Stop: 06/10/21 15:59 Last Admin: 05/26/21 07:57 Dose: 500 mg Documented by: Al Hydrox/Mg Hydrox/Simethicone (Aluminum/Magnesium Susp 30 Ml Udc) 15 ml PO Q6H PRN PRN Reason: Dyspepsia Stop: 06/19/21 14:21 Albuterol (Albut/Ipratrop 3mg/0.5mg Neb 3 Ml Vial) 3 ml NEB Q4R PRN PRN Reason: Shortness Of Breath Or Wheezing Stop: 06/10/21 10:48 Last Admin: 05/25/21 15:37 Dose: 3 ml Documented by: Amlodipine Besylate (Amlodipine Besylate 5 Mg Tab) 5 mg PO QAM [facility] Stop: 06/10/21 12:14 Last Admin: 05/26/21 07:57 Dose: 5 mg Documented by: Aspirin (Aspirin 81 Mg Ectab) 81 mg PO DAILY [facility] Stop: 06/10/21 08:59 Last Admin: 05/26/21 07:57 Dose: 81 mg Documented by: Carbidopa/Levodopa (Carbidopa/Levodopa 25/100mg Tab) 1 tab PO TID [facility] Stop: 05/31/21 13:59 Diclofenac Sodium (Diclofenac Sod 1% Gel 100 Gm Tube) 2 gm EXT Q6 [facility] Stop: 06/10/21 15:29 Last Admin: 05/26/21 11:05 Dose: 2 gm Documented by: Docusate Sodium (Docusate Sodium 100 Mg Cap) 100 mg PO DAILY PRN PRN Reason: Constipation Stop: 06/10/21 16:59 Last Admin: 05/22/21 02:06 Dose: 100 mg Documented by: Ezetimibe (Ezetimibe 10 Mg Tablet) 10 mg PO HS [facility] Stop: 06/10/21 20:59 Last Admin: 05/25/21 20:40 Dose: 10 mg Documented by: Enoxaparin Sodium (Enoxaparin Inj 40 Mg/0.4 Ml Syr) 40 mg SQ Q24H [facility] Stop: 06/10/21 20:59 Last Admin: 05/25/21 20:39 Dose: 40 mg Documented by: Ferrous Sulfate (Ferrous Sulfate 325 Mg Tab) 325 mg PO DAILY@1100 [facility] Stop: 06/10/21 10:59 Last Admin: 05/26/21 11:04 Dose: 325 mg Documented by: Furosemide (Furosemide 20 Mg Tab) 10 mg PO QAM [facility] Stop: 06/24/21 09:29 Last Admin: 05/26/21 07:58 Dose: 10 mg Documented by: Gabapentin (Gabapentin 300 Mg Cap) 600 mg PO TID [facility] Stop: 06/24/21 13:59 Last Admin: 05/26/21 13:55 Dose: 600 mg Documented by: Lactase (Lactase 3000 Unit Tab) 3,000 units PO AC [facility] Stop: 06/10/21 16:59 Last Admin: 05/26/21 11:04 Dose: 3,000 units Documented by: Lamotrigine (Lamotrigine 25 Mg Tab) 75 mg PO HS [facility] Stop: 06/10/21 20:59 Last Admin: 05/25/21 20:40 Dose: 75 mg Documented by: Lidocaine (Lidocaine 5% 1 Patch) 1 patch TD DAILY [facility] Stop: 06/10/21 08:59 Last Admin: 05/26/21 07:59 Dose: 1 patch Documented by: Magnesium Oxide (Magnesium Oxide 400 Mg Tab) 400 mg PO BID [facility] Stop: 06/10/21 20:59 Last Admin: 05/26/21 07:56 Dose: 400 mg Documented by: Meloxicam (Meloxicam 7.5 Mg Tab) 7.5 mg PO QAM [facility] Stop: 06/24/21 09:29 Last Admin: 05/26/21 07:58 Dose: 7.5 mg Documented by: Metoprolol Tartrate (Metoprolol Tartrate 25 Mg Tab) 25 mg PO BID [facility] Stop: 06/10/21 20:24 Last Admin: 05/26/21 07:56 Dose: 25 mg Documented by: Miscellaneous (Remove Lidoderm Patch) 1 ea N/A 2100 [facility] Stop: 06/13/21 20:59 Last Admin: 05/25/21 20:40 Dose: 1 ea Documented by: Nitroglycerin (Nitroglycerin Sl 0.4 Mg/Tab Tab) 0.4 mg SL PRN PRN PRN Reason: Chest Pain Stop: 06/10/21 21:40 Last Admin: 05/24/21 04:16 Dose: 0.4 mg Documented by: Ondansetron HCl (Ondansetron Inj 2 Mg/Ml 2 Ml Vial) 4 mg IV Q8H PRN PRN Reason: Nausea And Vomiting Stop: 06/01/21 18:12 Last Admin: 05/24/21 12:19 Dose: 4 mg Documented by: Pantoprazole Sodium (Pantoprazole 40 Mg Tab) 40 mg PO DAILY [facility] Stop: 06/10/21 08:59 Last Admin: 05/26/21 07:58 Dose: 40 mg Documented by: Polyethylene Glycol (Polyethylene (Miralax) 17 Gm Pack) 17 gm PO DAILY PRN PRN Reason: Constipation Stop: 06/10/21 04:42 Last Admin: 05/21/21 08:09 Dose: 17 gm Documented by: Potassium Chloride (Potassium Chloride 10 Meq Tabcr) 10 meq PO BID [facility] Stop: 06/10/21 20:59 Last Admin: 05/26/21 07:57 Dose: 10 meq Documented by: Risperidone (Risperidone 0.5 Mg Tablet) 0.5 mg PO TODAY@1400 [facility] Stop: 06/01/21 13:59 Last Admin: 05/26/21 13:55 Dose: 0.5 mg Documented by: Senna/Docusate Sodium (Docusate Sodium/Senna 50/8.6mg Tab) 1 tab PO QAM [facility] Stop: 06/10/21 04:44 Last Admin: 05/26/21 07:57 Dose: 1 tab Documented by: Tramadol HCl (Tramadol Hcl 50 Mg Tablet) 50 mg PO Q4H PRN PRN Reason: Pain Stop: 06/23/21 08:01 Last Admin: 05/25/21 20:38 Dose: 50 mg Documented by: Zolpidem Tartrate (Zolpidem Tartrate 5 Mg Tab) 5 mg PO HS PRN PRN Reason: Sleep Stop: 06/05/21 21:55 Last Admin: 05/25/21 21:49 Dose: 5 mg Documented by:
[2021-05-26] MEDS: ENOXAPARIN INJ 40 MG/0.4 ML SYR SQ SCH (20:42)
[2021-05-26] MEDS: lamoTRIgine 25 MG TAB PO SCH (20:43)
[2021-05-26] MEDS: EZETIMIBE 10 MG TABLET PO SCH (20:45)
[2021-05-26] MEDS: traMADol HCL 50 MG TABLET PO PRN (21:02)
[2021-05-26] MEDS: ZOLPIDEM TARTRATE 5 MG TAB PO PRN (22:46)
[2021-05-27] MEDS: DICLOFENAC SOD 1% GEL 100 GM TUBE EXT SCH ×5 (00:16→23:29)
[2021-05-27] MEDS: ACETAMINOPHEN 500 MG TAB PO SCH ×4 (00:16→23:29)
[2021-05-27] MEDS: ONDANSETRON INJ 2 MG/ML 2 ML VIAL IV PRN (00:26)
[2021-05-27] MEDS: amLODIPine BESYLATE 5 MG TAB PO SCH (07:55)
[2021-05-27] MEDS: ADVANCED PROBIOTIC 1250 MG CAPSULE PO SCH (07:56)
[2021-05-27] MEDS: LACTASE 3000 UNIT TAB PO SCH ×3 (07:56→16:35)
[2021-05-27] MEDS: FUROSEMIDE 20 MG TAB PO SCH (07:56)
[2021-05-27] MEDS: ASPIRIN 81 MG ECTAB PO SCH (07:56)
[2021-05-27] MEDS: POTASSIUM CHLORIDE 10 MEQ TABCR PO SCH ×2 (07:57→21:57)
[2021-05-27] MEDS: MELOXICAM 7.5 MG TAB PO SCH (07:57)
[2021-05-27] MEDS: PANTOprazole 40 MG TAB PO SCH (07:57)
[2021-05-27] MEDS: MAGNESIUM OXIDE 400 MG TAB PO SCH ×2 (07:57→21:58)
[2021-05-27] MEDS: DOCUSATE SODIUM/SENNA 50/8.6MG TAB PO SCH (07:58)
[2021-05-27] MEDS: LIDOCAINE 5% 1 PATCH TD SCH (07:58)
[2021-05-27] MEDS: GABAPENTIN 300 MG CAP PO SCH ×3 (07:58→21:58)
[2021-05-27] MEDS: METOPROLOL TARTRATE 25 MG TAB PO SCH ×2 (07:59→21:58)
[2021-05-27] MEDS: FERROUS SULFATE 325 MG TAB PO SCH (11:56)
[2021-05-27] MEDS: risperiDONE 0.5 MG TABLET PO SCH (14:47)
--- NOTE | 2021-05-27 15:16 | Hospitalist Progress Note ---
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 Prolonged hospital course for lack of disposition. UTI sx pt reported suprapubic pain on 05/22 cheng exchanged 05/22 and UA obtained and no bacteruria she is afebrile and wbc WNL no active infection Pneumonia Admission CXR - bibasilar infiltration more on the right could be secondary to aspiration versus HCAP Initial lactic acid 3.2---> 1.9, no other signs of sepsis. MRSA screen negative Zosyn 03/12 --> change to Augmentin 03/14 -->Levaquin 03/15 d/t E.cloacae and E. 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 On Ambien. 04/18 - visual and auditory hallucinations, worsening delusions/paranoia. Per psychiatry, tapered Risperdal in favor of trial of Zyprexa 2.5 mg at bedtime. Zyprexa increased to 5 mg at bedtime on 04/22 04/24 - Decrease Zyprexa back to 2.5mg qhs given emergence of side effects (daytime fatigue, flattening of affect and softer speech) at higher dose. May need to consider reducing dopamine agent for Parkinson's to better target psychotic symptoms versus Seroquel trail if symptoms persist on low dose Zyprexa. discussed with psychiatry, stopped Sinemet afternoon dose as it can be driving her psychosis 04/29 - DC zyprexa 05/01-Risperdal had been started 03/24 which was then cross-tapered to Olanzapine which was stopped due to worsening bradykinesia and parkinsonism side effects. Despite understanding that her Sinemet contributes to her paranoia, she would like to have this restarted. 05/02-Sinemet on hold and risperidone restarted. Seems to be more animated on risperdal per psych, continue - as of 05/15/2105/24-taking risperidone consistently, hold sinement, mentating clearly, oriented, no hallucinations noted. CAUTI:Chronic indwelling Cheng catheter History of recurrent UTIs. Patient overdue for follow-up with urology---> Alexandrea BETANCOURT to arrange for outpatient follow-up for management of her chronic Cheng UA was suggestive of infection, 03/12 urine culture Enterobacter cloacae and E. coli. Completed Levaquin. 04/18 - reports burning at Cheng site Repeat urine culture growing Enterobacter cloacae, multidrug-resistant. On meropenem Unclear if true infection or colonization ID consulted -presence of bacteriuria and pyuria expected with an indwelling catheter and has no specificity for UTI. No systemic s/sx of infection. Consider other alternatives for urinary incontinence care. Stop meropenem and observe for signs directly attributable to her infection and urinary tract before restarting. Family and patient refused for cheng catheter removal. Patient with longstanding overflow incontinence issues. Discussed increased risk for UTIs Replaced on 04/24. She refuses removal as there is an issue with frequent urinary incontinence and concern for subsequent skin breakdown, will need monthly changes Outpatient follow-up with urology Cheng exchanged 05/22/21 Chest pain - resolved -Developed chest pain on 03/27 and was transferred to [facility] with telemetry -Troponin negative x2, EKG nonischemic -Reproducible on exam, likely musculoskeletal in nature -Another episode of chest pain on 04/06 evening, EKG and troponin unremarkable resolved -Another episode of chest pain on 05/23 evening-serial enzymes and EKG not reflective of ACS, pain resolved with nitro. Outpatient followup with PCP Chronic Diastolic CHF pt with episode of decompensated CHF while hospitalized, now resolved -Echo 03/21/2021 -EF 55-60%, grade 2 diastolic dysfunction 03/14 CXR: Mild pulmonary edema. Possible small left pleural effusion 03/14 IV dose of Lasix 03/28 IV Lasix x 1 dose euvolemic today, daily weights 05/24-patient is asking for Lasix, will give small oral dose for "foot swelling" although there is none on exam. She is not on diuretics at home so will not start something consistently 05/27: Reports taking Breo for asthma at home, requesting this be added to her med regimen now. 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 Fields [facility] (Sbkzvpb-Nqvbq-Eedlt disease): S/p multiple lower extremity procedures, most recently s/p left knee closed reduction total knee arthroplasty subluxation on 02/16/2021 - patient is to remain nonweightbearing of the left lower extremity and limited weightbearing on the right lower extremity Narcotics have been stopped-added Tramadol for relief 05/04: she consistently is asking for pain meds and would like some more tonight. 05/23: tramadol PRN restarted 05/24: asking for Lyrica, however, would prefer Neurology to make that change as outpatient. Noted that her gabapentin was at 900mg TID prior to admission. Currently she is at 200mg TID. Will increase this to 600mg TID and plan to increase again to 900 TID in 7 days if no improvement in pain. If she then fails gabapentin trial, may consider Lyrica as outpatient. Restarted Mobic 7.5mg PO daily for pain per home regimen prior to arrival. Cont diclofenac gel. Patient is bedbound and transferring is a safety issue. 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 Clinical correlation will be essential. Orthopedic consulted for left calcaneal superior posterior avulsion fracture status post fall: High tide walking boot removed, replaced with a dorsiflexion splint with a negative relief under the left heel and lambs wool padding to provide essentially neutral support for neutral dorsiflexion of the left ankle and heel and foot. Orthopedic recommending may use the walking boot for transfers or ambulating and wheelchair as necessary. Follow-up with outpatient orthopedics. Dr. Crain, [facility] [place] Per patient request, bilateral ankle x-rays ordered on 04/13 - ordered, unchanged, follow up with Dr. Crain Continues to have LLE discomfort. Evaluated by Favio Sofia PA-C patient with good ROM but painful. No further workup at this time Neurontin increased and Mobic added as above. 05/27: patient denies any pain today! Left knee pain Complaint of left knee pain Knee xray shows intact replacement, no acute abnormalities Continue knee brace and pain med Continue monitor Parkinson disease: Sinemet on hold, cont risperidone Chronic pain: Continue current regimen, minimize escalations in narcotics Will consult orthotic for left hand brace - orthotics to get a, "therapy carrott," which is a device that provides gradual ext of fingers overtime. Pt declining this and states she is to get surgery at [facility] [facility] on discharge Neurontin, Mobic, PRN tramadol DVT prophylaxis: SQ Lovenox Disposition:Medically stable; awaiting placement to facility vs home with services. DO [facility] Admission and Anticipated Discharge Date Admission Date: March 12, 2021 Subjective 76 yo F with multiple comorbidities including chronic pain with prolonged hospital course beyond initial presentation for pneumonia and UTI -denies pain today -denies swelling in her lower extremities. -she noted that she drools frequently -tolerating PO -she is asking for her home breo to be added to her medication regimen. Review of Systems Review of Systems: All systems were reviewed and negative except as indicated above. Physical Exam Physical Exam: Gen: WD/WN, NAD, lying in bed, NAD HEENT: Normocephalic, atraumatic, mucous membranes moist Lung: Clear to Auscultation bilaterally but diminished. No wheezes/rales/rhonchi Heart: Regular rate, regular rhythm, no murmurs, rubs, or gallops Abdomen: Soft, NT, ND : Cheng Extremities: Chronic weakness, LLE wrap in place, contractures of left hand. No edema Skin: Warm and dry Results & Data Results & Data ([facility]) Vital Signs (Past 12 Hours) Vital Signs Temp Pulse Resp BP Pulse Ox 05/27/21 08:00 36.8 C 64 18 142/74 H 97 Medications Administered Current Inpatient Medications Acetaminophen (Acetaminophen 500 Mg Tab) 500 mg PO Q8@0000,0800,1600 [facility] Stop: 06/10/21 15:59 Last Admin: 05/27/21 07:59 Dose: 500 mg Documented by: Al Hydrox/Mg Hydrox/Simethicone (Aluminum/Magnesium Susp 30 Ml Udc) 15 ml PO Q6H PRN PRN Reason: Dyspepsia Stop: 06/19/21 14:21 Albuterol (Albut/Ipratrop 3mg/0.5mg Neb 3 Ml Vial) 3 ml NEB Q4R PRN PRN Reason: Shortness Of Breath Or Wheezing Stop: 06/10/21 10:48 Last Admin: 05/25/21 15:37 Dose: 3 ml Documented by: Amlodipine Besylate (Amlodipine Besylate 5 Mg Tab) 5 mg PO QAM [facility] Stop: 06/10/21 12:14 Last Admin: 05/27/21 07:55 Dose: 5 mg Documented by: Aspirin (Aspirin 81 Mg Ectab) 81 mg PO DAILY [facility] Stop: 06/10/21 08:59 Last Admin: 05/27/21 07:56 Dose: 81 mg Documented by: Carbidopa/Levodopa (Carbidopa/Levodopa 25/100mg Tab) 1 tab PO TID [facility] Stop: 05/31/21 13:59 Diclofenac Sodium (Diclofenac Sod 1% Gel 100 Gm Tube) 2 gm EXT Q6 [facility] Stop: 06/10/21 15:29 Last Admin: 05/27/21 11:56 Dose: 2 gm Documented by: Docusate Sodium (Docusate Sodium 100 Mg Cap) 100 mg PO DAILY PRN PRN Reason: Constipation Stop: 06/10/21 16:59 Last Admin: 05/22/21 02:06 Dose: 100 mg Documented by: Ezetimibe (Ezetimibe 10 Mg Tablet) 10 mg PO HS [facility] Stop: 06/10/21 20:59 Last Admin: 05/26/21 20:45 Dose: 10 mg Documented by: Enoxaparin Sodium (Enoxaparin Inj 40 Mg/0.4 Ml Syr) 40 mg SQ Q24H [facility] Stop: 06/10/21 20:59 Last Admin: 05/26/21 20:42 Dose: 40 mg Documented by: Ferrous Sulfate (Ferrous Sulfate 325 Mg Tab) 325 mg PO DAILY@1100 [facility] Stop: 06/10/21 10:59 Last Admin: 05/27/21 11:56 Dose: 325 mg Documented by: Furosemide (Furosemide 20 Mg Tab) 10 mg PO QAM [facility] Stop: 06/24/21 09:29 Last Admin: 05/27/21 07:56 Dose: 10 mg Documented by: Gabapentin (Gabapentin 300 Mg Cap) 600 mg PO TID [facility] Stop: 06/24/21 13:59 Last Admin: 05/27/21 14:47 Dose: 600 mg Documented by: Lactase (Lactase 3000 Unit Tab) 3,000 units PO AC [facility] Stop: 06/10/21 16:59 Last Admin: 05/27/21 11:56 Dose: 3,000 units Documented by: Lamotrigine (Lamotrigine 25 Mg Tab) 75 mg PO HS [facility] Stop: 06/10/21 20:59 Last Admin: 05/26/21 20:43 Dose: 75 mg Documented by: Lidocaine (Lidocaine 5% 1 Patch) 1 patch TD DAILY [facility] Stop: 06/10/21 08:59 Last Admin: 05/27/21 07:58 Dose: 1 patch Documented by: Magnesium Oxide (Magnesium Oxide 400 Mg Tab) 400 mg PO BID [facility] Stop: 06/10/21 20:59 Last Admin: 05/27/21 07:57 Dose: 400 mg Documented by: Meloxicam (Meloxicam 7.5 Mg Tab) 7.5 mg PO QAM [facility] Stop: 06/24/21 09:29 Last Admin: 05/27/21 07:57 Dose: 7.5 mg Documented by: Metoprolol Tartrate (Metoprolol Tartrate 25 Mg Tab) 12.5 mg PO BID [facility] Stop: 06/25/21 20:59 Last Admin: 05/27/21 07:59 Dose: 12.5 mg Documented by: Miscellaneous (Remove Lidoderm Patch) 1 ea N/A 2100 [facility] Stop: 06/13/21 20:59 Last Admin: 05/26/21 21:00 Dose: 1 ea Documented by: Nitroglycerin (Nitroglycerin Sl 0.4 Mg/Tab Tab) 0.4 mg SL PRN PRN PRN Reason: Chest Pain Stop: 06/10/21 21:40 Last Admin: 05/24/21 04:16 Dose: 0.4 mg Documented by: Ondansetron HCl (Ondansetron Inj 2 Mg/Ml 2 Ml Vial) 4 mg IV Q8H PRN PRN Reason: Nausea And Vomiting Stop: 06/01/21 18:12 Last Admin: 05/27/21 00:26 Dose: 4 mg Documented by: Pantoprazole Sodium (Pantoprazole 40 Mg Tab) 40 mg PO DAILY [facility] Stop: 06/10/21 08:59 Last Admin: 05/27/21 07:57 Dose: 40 mg Documented by: Polyethylene Glycol (Polyethylene (Miralax) 17 Gm Pack) 17 gm PO DAILY PRN PRN Reason: Constipation Stop: 06/10/21 04:42 Last Admin: 05/21/21 08:09 Dose: 17 gm Documented by: Potassium Chloride (Potassium Chloride 10 Meq Tabcr) 10 meq PO BID [facility] Stop: 06/10/21 20:59 Last Admin: 05/27/21 07:57 Dose: 10 meq Documented by: Risperidone (Risperidone 0.5 Mg Tablet) 0.5 mg PO TODAY@1400 [facility] Stop: 06/01/21 13:59 Last Admin: 05/27/21 14:47 Dose: 0.5 mg Documented by: Senna/Docusate Sodium (Docusate Sodium/Senna 50/8.6mg Tab) 1 tab PO QAM [facility] Stop: 06/10/21 04:44 Last Admin: 05/27/21 07:58 Dose: 1 tab Documented by: Tramadol HCl (Tramadol Hcl 50 Mg Tablet) 50 mg PO Q4H PRN PRN Reason: Pain Stop: 06/23/21 08:01 Last Admin: 05/26/21 21:02 Dose: 50 mg Documented by: Zolpidem Tartrate (Zolpidem Tartrate 5 Mg Tab) 5 mg PO HS PRN PRN Reason: Sleep Stop: 06/05/21 21:55 Last Admin: 05/26/21 22:46 Dose: 5 mg Documented by:
[2021-05-27] MEDS: FLUTICASONE/VILANTEROL 100/25MCG 14 PUFFS/INHALER INH SCH (16:09)
[2021-05-27] MEDS: traMADol HCL 50 MG TABLET PO PRN (19:24)
[2021-05-27] MEDS ORDERED: KETOROLAC TROMETHAMINE 15 MG/ML VIAL IV ONE (20:53)
[2021-05-27] MEDS: ALBUT/IPRATROP 3MG/0.5MG NEB 3 ML VIAL NEB PRN (21:41)
[2021-05-27] MEDS: lamoTRIgine 25 MG TAB PO SCH (21:57)
[2021-05-27] MEDS: EZETIMIBE 10 MG TABLET PO SCH (21:58)
[2021-05-27] MEDS: ZOLPIDEM TARTRATE 5 MG TAB PO PRN (22:11)
[2021-05-27] MEDS: ENOXAPARIN INJ 40 MG/0.4 ML SYR SQ SCH (22:48)
[2021-05-27] MEDS ORDERED: dexAMETHasone 10 MG in SYRINGE 0 ML IV ONE (22:56)
[2021-05-27] MEDS ORDERED: PROMETHAZINE HCL 12.5 MG in SODIUM CHLORIDE 0.9% 50 ML IV STA (22:58)
--- NOTE | 2021-05-27 22:58 | Communication Note ---
Date of Service: May 27, 2021 Patient earlier complained to RN of 'worst headache'. Patient later told RN that headache similar to her migraine attack. CT head initial read no acute pathology Decadron and Phenergan 1 dose now for migraine attack.
[2021-05-28] MEDS: DICLOFENAC SOD 1% GEL 100 GM TUBE EXT SCH ×4 (07:02→23:52)
--- NOTE | 2021-05-28 07:15 | CT Scan Report ---
CT head/brain wo con CLINICAL HISTORY: Headache COMPARISON STUDY: 03/31/2021 CT DOSE: 537.48 mGy.cm TECHNIQUE: Standard CT of the Brain was performed without IV contrast. A dose lowering technique was utilized adhering to the principles of ALARA. FINDINGS: Extraaxial space: There is no evidence for subdural hematoma. There are no extra-axial fluid collecti ons. Ventricles and cisterns: The ventricles are normal in size and configuration. There is no evidence f or midline shift or mass effect. Parenchyma: There is no subarachnoid or intraparenchymal hemorrhage. There is no evidence for an acu te infarct or cerebral edema. There is homogeneous attenuation of the brain parenchyma. There are no gross mass lesions. Osseous structures: The patient is again status post previous TMJ surgery. There is no evidence for a n acute fracture. The visualized paranasal sinuses are clear. The mastoid air cells are clear bilater ally. Soft tissues: There is no evidence for focal soft tissue swelling. IMPRESSION: No acute intracerebral pathology. ACT 112: Negative or not required by law. Electronically signed by: Eliot Webber M.D. 05/28/2021 7:13 AM
[2021-05-28] MEDS: ASPIRIN 81 MG ECTAB PO SCH (08:06)
[2021-05-28] MEDS: LIDOCAINE 5% 1 PATCH TD SCH (08:06)
[2021-05-28] MEDS: PANTOprazole 40 MG TAB PO SCH (08:07)
[2021-05-28] MEDS: ADVANCED PROBIOTIC 1250 MG CAPSULE PO SCH (08:07)
[2021-05-28] MEDS: MELOXICAM 7.5 MG TAB PO SCH (08:07)
[2021-05-28] MEDS: FUROSEMIDE 20 MG TAB PO SCH (08:07)
[2021-05-28] MEDS: amLODIPine BESYLATE 5 MG TAB PO SCH (08:07)
[2021-05-28] MEDS: LACTASE 3000 UNIT TAB PO SCH ×3 (08:07→16:18)
[2021-05-28] MEDS: GABAPENTIN 300 MG CAP PO SCH ×3 (08:08→21:14)
[2021-05-28] MEDS: DOCUSATE SODIUM/SENNA 50/8.6MG TAB PO SCH (08:08)
[2021-05-28] MEDS: FLUTICASONE/VILANTEROL 100/25MCG 14 PUFFS/INHALER INH SCH (08:08)
[2021-05-28] MEDS: MAGNESIUM OXIDE 400 MG TAB PO SCH ×2 (08:09→21:13)
[2021-05-28] MEDS: POTASSIUM CHLORIDE 10 MEQ TABCR PO SCH ×2 (08:10→21:12)
[2021-05-28] MEDS: METOPROLOL TARTRATE 25 MG TAB PO SCH ×2 (08:10→21:13)
[2021-05-28] MEDS: ACETAMINOPHEN 500 MG TAB PO SCH ×3 (08:14→23:51)
[2021-05-28] MEDS: FERROUS SULFATE 325 MG TAB PO SCH (11:03)
[2021-05-28] MEDS: risperiDONE 0.5 MG TABLET PO SCH (13:06)
--- NOTE | 2021-05-28 14:56 | Hospitalist Progress Note ---
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 Prolonged hospital course for lack of disposition. UTI sx pt reported suprapubic pain on 05/22 cheng exchanged 05/22 and UA obtained and no bacteruria she is afebrile and wbc WNL no active infection Pneumonia Admission CXR - bibasilar infiltration more on the right could be secondary to aspiration versus HCAP Initial lactic acid 3.2---> 1.9, no other signs of sepsis. MRSA screen negative Zosyn 03/12 --> change to Augmentin 03/14 -->Levaquin 03/15 d/t E.cloacae and E. 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 On Ambien. 04/18 - visual and auditory hallucinations, worsening delusions/paranoia. Per psychiatry, tapered Risperdal in favor of trial of Zyprexa 2.5 mg at bedtime. Zyprexa increased to 5 mg at bedtime on 04/22 04/24 - Decrease Zyprexa back to 2.5mg qhs given emergence of side effects (daytime fatigue, flattening of affect and softer speech) at higher dose. May need to consider reducing dopamine agent for Parkinson's to better target psychotic symptoms versus Seroquel trail if symptoms persist on low dose Zyprexa. discussed with psychiatry, stopped Sinemet afternoon dose as it can be driving her psychosis 04/29 - DC zyprexa 05/01-Risperdal had been started 03/24 which was then cross-tapered to Olanzapine which was stopped due to worsening bradykinesia and parkinsonism side effects. Despite understanding that her Sinemet contributes to her paranoia, she would like to have this restarted. 05/02-Sinemet on hold and risperidone restarted. Seems to be more animated on risperdal per psych, continue - as of 05/15/2105/24-taking risperidone consistently, hold sinement, mentating clearly, oriented, no hallucinations noted. CAUTI:Chronic indwelling Cheng catheter History of recurrent UTIs. Patient overdue for follow-up with urology---> Alexandrea BETANCOURT to arrange for outpatient follow-up for management of her chronic Cheng UA was suggestive of infection, 03/12 urine culture Enterobacter cloacae and E. coli. Completed Levaquin. 04/18 - reports burning at Cheng site Repeat urine culture growing Enterobacter cloacae, multidrug-resistant. On meropenem Unclear if true infection or colonization ID consulted -presence of bacteriuria and pyuria expected with an indwelling catheter and has no specificity for UTI. No systemic s/sx of infection. Consider other alternatives for urinary incontinence care. Stop meropenem and observe for signs directly attributable to her infection and urinary tract before restarting. Family and patient refused for cheng catheter removal. Patient with longstanding overflow incontinence issues. Discussed increased risk for UTIs Replaced on 04/24. She refuses removal as there is an issue with frequent urinary incontinence and concern for subsequent skin breakdown, will need monthly changes Outpatient follow-up with urology Cheng exchanged 05/22/21 Chest pain - resolved -Developed chest pain on 03/27 and was transferred to [facility] with telemetry -Troponin negative x2, EKG nonischemic -Reproducible on exam, likely musculoskeletal in nature -Another episode of chest pain on 04/06 evening, EKG and troponin unremarkable resolved -Another episode of chest pain on 05/23 evening-serial enzymes and EKG not reflective of ACS, pain resolved with nitro. Outpatient followup with PCP Headache- reports h/o migraines no Zomig on outpatient medication list 05/28: headache reported, overnight CT head returned normal, Naproxen Chronic Diastolic CHF pt with episode of decompensated CHF while hospitalized, now resolved -Echo 03/21/2021 -EF 55-60%, grade 2 diastolic dysfunction 03/14 CXR: Mild pulmonary edema. Possible small left pleural effusion 03/14 IV dose of Lasix 03/28 IV Lasix x 1 dose euvolemic today, daily weights 05/24-patient is asking for Lasix, will give small oral dose for "foot swelling" although there is none on exam. She is not on diuretics at home so will not start something consistently 05/27: Reports taking Breo for asthma at home, requesting this be added to her med regimen now. 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 Fields CMT (Izxqjbf-Lxqlg-Yyoxk disease): S/p multiple lower extremity procedures, most recently s/p left knee closed reduction total knee arthroplasty subluxation on 02/16/2021 - patient is to remain nonweightbearing of the left lower extremity and limited weightbearing on the right lower extremity Narcotics have been stopped-added Tramadol for relief 05/04: she consistently is asking for pain meds and would like some more tonight. 05/23: tramadol PRN restarted 05/24: asking for Lyrica, however, would prefer Neurology to make that change as outpatient. Noted that her gabapentin was at 900mg TID prior to admission. Currently she is at 200mg TID. Will increase this to 600mg TID and plan to increase again to 900 TID in 7 days if no improvement in pain. If she then fails gabapentin trial, may consider Lyrica as outpatient. Restarted Mobic 7.5mg PO daily for pain per home regimen prior to arrival. Cont diclofenac gel. Patient is bedbound and transferring is a safety issue. 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 Clinical correlation will be essential. Orthopedic consulted for left calcaneal superior posterior avulsion fracture status post fall: High tide walking boot removed, replaced with a dorsiflexion splint with a negative relief under the left heel and lambs wool padding to provide essentially neutral support for neutral dorsiflexion of the left ankle and heel and foot. Orthopedic recommending may use the walking boot for transfers or ambulating and wheelchair as necessary. Follow-up with outpatient orthopedics. Dr. Crain, [facility] Per patient request, bilateral ankle x-rays ordered on 04/13 - ordered, unchanged, follow up with Dr. Crain Continues to have LLE discomfort. Evaluated by Favio Sofia PA-C patient with good ROM but painful. No further workup at this time Neurontin increased and Mobic added as above. 05/27: patient denies any pain today! Left knee pain Complaint of left knee pain Knee xray shows intact replacement, no acute abnormalities Continue knee brace and pain med Continue monitor Parkinson disease: Sinemet on hold, cont risperidone Chronic pain: Continue current regimen, minimize escalations in narcotics Will consult orthotic for left hand brace - orthotics to get a, "therapy carrott," which is a device that provides gradual ext of fingers overtime. Pt declining this and states she is to get surgery at [facility] on discharge Neurontin, Mobic, PRN tramadol DVT prophylaxis: SQ Lovenox Disposition:Medically stable; awaiting placement to facility vs home with services. DO [facility] Hospitalist Admission and Anticipated Discharge Date Admission Date: March 12, 2021 Subjective 76 yo F with multiple comorbidities including chronic pain with prolonged hospital course beyond initial presentation for pneumonia and UTI reporting a headache today had CT head overnight that was normal no new neurologic symptoms that are new reports taking Zomig in the past Offered naproxen as a start. Review of Systems Review of Systems: All systems reviewed & are unremarkable except as noted in Subjective Physical Exam Physical Exam: Gen: WD/WN, NAD, lying in bed, NAD HEENT: Normocephalic, atraumatic, mucous membranes moist Lung: Clear to Auscultation bilaterally but diminished. No wheezes/rales/rhonchi Heart: Regular rate, regular rhythm, no murmurs, rubs, or gallops Abdomen: Soft, NT, ND : Cheng Extremities: Chronic weakness, LLE wrap in place, contractures of left hand. No edema Skin: Warm and dry Results & Data Results & Data ([facility]) Vital Signs (Past 12 Hours) Vital Signs Temp Pulse Resp BP Pulse Ox 05/28/21 07:45 36.5 C 64 12 139/86 [address] 05/27/21 20:54 CT head/brain wo con CLINICAL HISTORY: Headache COMPARISON STUDY: 03/31/2021 CT DOSE: 537.48 mGy.cm TECHNIQUE: Standard CT of the Brain was performed without IV contrast. A dose lowering technique was utilized adhering to the principles of ALARA. FINDINGS: Extraaxial space: There is no evidence for subdural hematoma. There are no extra-axial fluid collections. Ventricles and cisterns: The ventricles are normal in size and configuration. There is no evidence for midline shift or mass effect. Parenchyma: There is no subarachnoid or intraparenchymal hemorrhage. There is no evidence for an acute infarct or cerebral edema. There is homogeneous att enuation of the brain parenchyma. There are no gross mass lesions. Osseous structures: The patient is again status post previous TMJ surgery. There is no evidence for an acute fracture. The visualized paranasal sinuses are clear. The mastoid air cells are clear bilaterally. Soft tissues: There is no evidence for focal soft tissue swelling. IMPRESSION: No acute intracerebral pathology. ACT 112: Negative or not required by law. Electronically signed by: Eliot Webber M.D. 05/28/2021 7:13 AM Medications Administered Current Inpatient Medications Acetaminophen (Acetaminophen 500 Mg Tab) 500 mg PO Q8@0000,0800,1600 [facility] Stop: 06/10/21 15:59 Last Admin: 05/28/21 08:14 Dose: 500 mg Documented by: Al Hydrox/Mg Hydrox/Simethicone (Aluminum/Magnesium Susp 30 Ml Udc) 15 ml PO Q6H PRN PRN Reason: Dyspepsia Stop: 06/19/21 14:21 Albuterol (Albut/Ipratrop 3mg/0.5mg Neb 3 Ml Vial) 3 ml NEB Q4R PRN PRN Reason: Shortness Of Breath Or Wheezing Stop: 06/10/21 10:48 Last Admin: 05/27/21 21:41 Dose: 3 ml Documented by: Amlodipine Besylate (Amlodipine Besylate 5 Mg Tab) 5 mg PO QAM [facility] Stop: 06/10/21 12:14 Last Admin: 05/28/21 08:07 Dose: 5 mg Documented by: Aspirin (Aspirin 81 Mg Ectab) 81 mg PO DAILY [facility] Stop: 06/10/21 08:59 Last Admin: 05/28/21 08:06 Dose: 81 mg Documented by: Carbidopa/Levodopa (Carbidopa/Levodopa 25/100mg Tab) 1 tab PO TID [facility] Stop: 05/31/21 13:59 Diclofenac Sodium (Diclofenac Sod 1% Gel 100 Gm Tube) 2 gm EXT Q6 [facility] Stop: 06/10/21 15:29 Last Admin: 05/28/21 11:04 Dose: 2 gm Documented by: Docusate Sodium (Docusate Sodium 100 Mg Cap) 100 mg PO DAILY PRN PRN Reason: Constipation Stop: 06/10/21 16:59 Last Admin: 05/22/21 02:06 Dose: 100 mg Documented by: Ezetimibe (Ezetimibe 10 Mg Tablet) 10 mg PO HS [facility] Stop: 06/10/21 20:59 Last Admin: 05/27/21 21:58 Dose: 10 mg Documented by: Enoxaparin Sodium (Enoxaparin Inj 40 Mg/0.4 Ml Syr) 40 mg SQ Q24H [facility] Stop: 06/10/21 20:59 Last Admin: 05/27/21 22:48 Dose: 40 mg Documented by: Ferrous Sulfate (Ferrous Sulfate 325 Mg Tab) 325 mg PO DAILY@1100 [facility] Stop: 06/10/21 10:59 Last Admin: 05/28/21 11:03 Dose: 325 mg Documented by: Fluticasone/Vilanterol (Fluticasone/Vilanterol 100/25mcg 14 Puffs/Inhaler) 1 puffs INH DAILY [facility] Stop: 06/26/21 15:29 Last Admin: 05/28/21 08:08 Dose: 1 puffs Documented by: Furosemide (Furosemide 20 Mg Tab) 10 mg PO QAM [facility] Stop: 06/24/21 09:29 Last Admin: 05/28/21 08:07 Dose: 10 mg Documented by: Gabapentin (Gabapentin 300 Mg Cap) 600 mg PO TID [facility] Stop: 06/24/21 13:59 Last Admin: 05/28/21 13:06 Dose: 600 mg Documented by: Lactase (Lactase 3000 Unit Tab) 3,000 units PO AC [facility] Stop: 06/10/21 16:59 Last Admin: 05/28/21 11:03 Dose: 3,000 units Documented by: Lamotrigine (Lamotrigine 25 Mg Tab) 75 mg PO HS [facility] Stop: 06/10/21 20:59 Last Admin: 05/27/21 21:57 Dose: 75 mg Documented by: Lidocaine (Lidocaine 5% 1 Patch) 1 patch TD DAILY [facility] Stop: 06/10/21 08:59 Last Admin: 05/28/21 08:06 Dose: 1 patch Documented by: Magnesium Oxide (Magnesium Oxide 400 Mg Tab) 400 mg PO BID [facility] Stop: 06/10/21 20:59 Last Admin: 05/28/21 08:09 Dose: 400 mg Documented by: Meloxicam (Meloxicam 7.5 Mg Tab) 7.5 mg PO QAM [facility] Stop: 06/24/21 09:29 Last Admin: 05/28/21 08:07 Dose: 7.5 mg Documented by: Metoprolol Tartrate (Metoprolol Tartrate 25 Mg Tab) 12.5 mg PO BID [facility] Stop: 06/25/21 20:59 Last Admin: 05/28/21 08:10 Dose: 12.5 mg Documented by: Miscellaneous (Remove Lidoderm Patch) 1 ea N/A 2100 [facility] Stop: 06/13/21 20:59 Last Admin: 05/27/21 21:59 Dose: 1 ea Documented by: Nitroglycerin (Nitroglycerin Sl 0.4 Mg/Tab Tab) 0.4 mg SL PRN PRN PRN Reason: Chest Pain Stop: 06/10/21 21:40 Last Admin: 05/24/21 04:16 Dose: 0.4 mg Documented by: Ondansetron HCl (Ondansetron Inj 2 Mg/Ml 2 Ml Vial) 4 mg IV Q8H PRN PRN Reason: Nausea And Vomiting Stop: 06/01/21 18:12 Last Admin: 05/27/21 00:26 Dose: 4 mg Documented by: Pantoprazole Sodium (Pantoprazole 40 Mg Tab) 40 mg PO DAILY [facility] Stop: 06/10/21 08:59 Last Admin: 05/28/21 08:07 Dose: 40 mg Documented by: Polyethylene Glycol (Polyethylene (Miralax) 17 Gm Pack) 17 gm PO DAILY PRN PRN Reason: Constipation Stop: 06/10/21 04:42 Last Admin: 05/21/21 08:09 Dose: 17 gm Documented by: Potassium Chloride (Potassium Chloride 10 Meq Tabcr) 10 meq PO BID [facility] Stop: 06/10/21 20:59 Last Admin: 05/28/21 08:10 Dose: 10 meq Documented by: Risperidone (Risperidone 0.5 Mg Tablet) 0.5 mg PO TODAY@1400 [facility] Stop: 06/01/21 13:59 Last Admin: 05/28/21 13:06 Dose: 0.5 mg Documented by: Senna/Docusate Sodium (Docusate Sodium/Senna 50/8.6mg Tab) 1 tab PO QAM [facility] Stop: 06/10/21 04:44 Last Admin: 05/28/21 08:08 Dose: 1 tab Documented by: Tramadol HCl (Tramadol Hcl 50 Mg Tablet) 50 mg PO Q4H PRN PRN Reason: Pain Stop: 06/23/21 08:01 Last Admin: 05/27/21 19:24 Dose: 50 mg Documented by: Zolpidem Tartrate (Zolpidem Tartrate 5 Mg Tab) 5 mg PO HS PRN PRN Reason: Sleep Stop: 06/05/21 21:55 Last Admin: 05/27/21 22:11 Dose: 5 mg Documented by:
[2021-05-28] MEDS ORDERED: NAPROXEN 250 MG TAB PO ONE (16:15)
--- NOTE | 2021-05-28 16:59 | Hospitalist Progress Note ---
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 Being managed for the following: Pneumonia Admission CXR - bibasilar infiltration more on the right could be secondary to aspiration versus HCAP Initial lactic acid 3.2---> 1.9, no other signs of sepsis. MRSA screen negative Zosyn 03/12 --> change to Augmentin 03/14 -->Levaquin 03/15 d/t E.cloacae and E. 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 On Ambien. 04/18 - visual and auditory hallucinations, worsening delusions/paranoia. Per psychiatry, tapered Risperdal in favor of trial of Zyprexa 2.5 mg at bedtime. Zyprexa increased to 5 mg at bedtime on 04/22 04/24 - Decrease Zyprexa back to 2.5mg qhs given emergence of side effects (daytime fatigue, flattening of affect and softer speech) at higher dose. May need to consider reducing dopamine agent for Parkinson's to better target psychotic symptoms versus Seroquel trail if symptoms persist on low dose Zyprexa. discussed with psychiatry, stopped Sinemet afternoon dose as it can be driving her psychosis 04/29 - DC zyprexa 05/01-Risperdal had been started 03/24 which was then cross-tapered to Olanzapine which was stopped due to worsening bradykinesia and parkinsonism side effects. Despite understanding that her Sinemet contributes to her paranoia, she would like to have this restarted. 05/02-Sinemet on hold and risperidone restarted. 05/08- continue risperidone 0.5 mg q daily at 2pm CAUTI:Chronic indwelling Cheng catheter History of recurrent UTIs. Patient overdue for follow-up with urology---> Alexandrea BETANCOURT to arrange for outpatient follow-up for management of her chronic Cheng UA was suggestive of infection, 03/12 urine culture Enterobacter cloacae and E. coli. Completed Levaquin. 04/18 - reports burning at Cheng site Repeat urine culture growing Enterobacter cloacae, multidrug-resistant. On meropenem Unclear if true infection or colonization ID consulted -presence of bacteriuria and pyuria expected with an indwelling catheter and has no specificity for UTI. No systemic s/sx of infection. Consider other alternatives for urinary incontinence care. Stop meropenem and observe for signs directly attributable to her infection and urinary tract before restarting. Family and patient refused for cheng catheter removal. Patient with longstanding overflow incontinence issues. Discussed increased risk for UTIs Replaced on 04/24. She refuses removal as there is an issue with frequent urinary incontinence and concern for subsequent skin breakdown, will need monthly changes Outpatient follow-up with urology Chest pain - resolved -Developed chest pain on 03/27 and was transferred to [facility] with telemetry -Troponin negative x2, EKG nonischemic -Reproducible on exam, likely musculoskeletal in nature -Another episode of chest pain on 04/06 evening, EKG and troponin unremarkable Chronic Diastolic CHF pt with episode of decompensated CHF while hospitalized, now resolved -Echo 03/21/2021 -EF 55-60%, grade 2 diastolic dysfunction 03/14 CXR: Mild pulmonary edema. Possible small left pleural effusion 03/14 IV dose of Lasix 03/28 IV Lasix x 1 dose euvolemic today, daily weights TIA Patient was a stroke alert overnight (03/20-03/21) Likely TIA - involving the right hemisphere with left facial droop yet on imaging has no evidence for a completed event Head and neck CTA, brain MRI unremarkable for acute findings Neurology consulted, input appreciated Do not have sufficient evidence to recommend adding Plavix to her aspirin but will observe her for recurrent events and if they do enlarge then certainly would add another antiplatelet agent Recommend to continue aspirin 81 mg daily, and 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 Fields CMT (Tiexffn-Opebw-Wnvpy disease): S/p multiple lower extremity procedures, most recently s/p left knee closed reduction total knee arthroplasty subluxation on 02/16/2021 - patient is to remain nonweightbearing of the left lower extremity and limited weightbearing on the right lower extremity Narcotics have been stopped-added Tramadol for relief 05/04: pt consistently asking for pain meds Abnormal Left ankle XR Chronic multiple joint pain, more on the left leg 03/15 x-ray left ankle: A 1.8 cm linear ossific density posterior to the talus may represent an avulsion fracture from the dorsal calcaneus. Clinical correlation will be essential. Orthopedic consulted for left calcaneal superior posterior avulsion fracture status post fall: High tide walking boot removed, replaced with a dorsiflexion splint with a negative relief under the left heel and lambs wool padding to provide essentially neutral support for neutral dorsiflexion of the left ankle and heel and foot. Orthopedic recommending may use the walking boot for transfers or ambulating and wheelchair as necessary. Follow-up with outpatient orthopedics. Dr. Crain, [facility] Per patient request, bilateral ankle x-rays ordered on 04/13 - ordered, unchanged, follow up with Dr. Crain Continues to have LLE discomfort. Evaluated by Favio Ford PA-C, patient with good ROM but painful. Will have Dr. Layne evaluate as well. Considering repeat ankle XR, may benefit from PT/OT if patient desires more frequent ambulation to wheelchair Parkinson disease: Sinemet on hold, cont risperidone Chronic pain: Continue current regimen, minimize escalations in narcotics DVT prophylaxis: SQ Lovenox Disposition:Medically stable; awaiting placement to facility. Admission and Anticipated Discharge Date Admission Date: March 12, 2021 Subjective 76 yo F admitted for recurrent UTI, pneumonia, hallucinations/paranoia. Currently sitting up in bed, in no acute distress Patient appears comfortable, does not have any new complaints, has chronic hand and ankle pain (joint pain) Appears more aware, answers questions appropriately Review of Systems Review of Systems: All systems reviewed & are unremarkable except as noted in Subjective Physical Exam Physical Exam: Gen: WD/WN, NAD HEENT: Normocephalic, atraumatic, mucous membranes moist Lung: Clear to Auscultation bilaterally but diminished. No wheezes/rales/rhonchi Heart: Regular rate, regular rhythm, no murmurs, rubs, or gallops Abdomen: Soft,NT, ND : Cheng Extremities: Chronic weakness, LLE wrap in place, contractures of left hand. No edema Skin: Warm and dry
[2021-05-28] MEDS: ZOLPIDEM TARTRATE 5 MG TAB PO PRN (21:10)
[2021-05-28] MEDS: lamoTRIgine 25 MG TAB PO SCH (21:11)
[2021-05-28] MEDS: ENOXAPARIN INJ 40 MG/0.4 ML SYR SQ SCH (21:11)
[2021-05-28] MEDS: EZETIMIBE 10 MG TABLET PO SCH (21:12)
[2021-05-29] MEDS: DICLOFENAC SOD 1% GEL 100 GM TUBE EXT SCH ×4 (06:40→23:32)
[2021-05-29] MEDS: ADVANCED PROBIOTIC 1250 MG CAPSULE PO SCH (08:25)
[2021-05-29] MEDS: FUROSEMIDE 20 MG TAB PO SCH (08:25)
[2021-05-29] MEDS: GABAPENTIN 300 MG CAP PO SCH ×3 (08:26→21:39)
[2021-05-29] MEDS: PANTOprazole 40 MG TAB PO SCH (08:26)
[2021-05-29] MEDS: MELOXICAM 7.5 MG TAB PO SCH (08:26)
[2021-05-29] MEDS: POTASSIUM CHLORIDE 10 MEQ TABCR PO SCH ×2 (08:26→21:39)
[2021-05-29] MEDS: LACTASE 3000 UNIT TAB PO SCH ×3 (08:26→16:56)
[2021-05-29] MEDS: METOPROLOL TARTRATE 25 MG TAB PO SCH ×2 (08:26→21:38)
[2021-05-29] MEDS: ASPIRIN 81 MG ECTAB PO SCH (08:26)
[2021-05-29] MEDS: ACETAMINOPHEN 500 MG TAB PO SCH ×3 (08:26→23:32)
[2021-05-29] MEDS: amLODIPine BESYLATE 5 MG TAB PO SCH (08:26)
[2021-05-29] MEDS: FLUTICASONE/VILANTEROL 100/25MCG 14 PUFFS/INHALER INH SCH (08:27)
[2021-05-29] MEDS: LIDOCAINE 5% 1 PATCH TD SCH (08:27)
[2021-05-29] MEDS: DOCUSATE SODIUM/SENNA 50/8.6MG TAB PO SCH (08:27)
[2021-05-29] MEDS: MAGNESIUM OXIDE 400 MG TAB PO SCH ×2 (08:27→21:39)
[2021-05-29] MEDS: traMADol HCL 50 MG TABLET PO PRN (09:23)
[2021-05-29] MEDS: FERROUS SULFATE 325 MG TAB PO SCH (11:34)
--- NOTE | 2021-05-29 12:06 | Hospitalist Progress Note ---
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 Prolonged hospital course for lack of disposition. UTI sx pt reported suprapubic pain on 05/22 cheng exchanged 05/22 and UA obtained and no bacteruria she is afebrile and wbc WNL no active infection Pneumonia Admission CXR - bibasilar infiltration more on the right could be secondary to aspiration versus HCAP Initial lactic acid 3.2---> 1.9, no other signs of sepsis. MRSA screen negative Zosyn 03/12 --> change to Augmentin 03/14 -->Levaquin 03/15 d/t E.cloacae and E. 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 On Ambien. 04/18 - visual and auditory hallucinations, worsening delusions/paranoia. Per psychiatry, tapered Risperdal in favor of trial of Zyprexa 2.5 mg at bedtime. Zyprexa increased to 5 mg at bedtime on 04/22 04/24 - Decrease Zyprexa back to 2.5mg qhs given emergence of side effects (daytime fatigue, flattening of affect and softer speech) at higher dose. May need to consider reducing dopamine agent for Parkinson's to better target psychotic symptoms versus Seroquel trail if symptoms persist on low dose Zyprexa. discussed with psychiatry, stopped Sinemet afternoon dose as it can be driving her psychosis 04/29 - DC zyprexa 05/01-Risperdal had been started 03/24 which was then cross-tapered to Olanzapine which was stopped due to worsening bradykinesia and parkinsonism side effects. Despite understanding that her Sinemet contributes to her paranoia, she would like to have this restarted. 05/02-Sinemet on hold and risperidone restarted. Seems to be more animated on risperdal per psych, continue - as of 05/15/2105/24-taking risperidone consistently, hold sinement, mentating clearly, oriented, no hallucinations noted. CAUTI:Chronic indwelling Cheng catheter History of recurrent UTIs. Patient overdue for follow-up with urology---> Alexandrea BETANCOURT to arrange for outpatient follow-up for management of her chronic Cheng UA was suggestive of infection, 03/12 urine culture Enterobacter cloacae and E. coli. Completed Levaquin. 04/18 - reports burning at Cheng site Repeat urine culture growing Enterobacter cloacae, multidrug-resistant. On meropenem Unclear if true infection or colonization ID consulted -presence of bacteriuria and pyuria expected with an indwelling catheter and has no specificity for UTI. No systemic s/sx of infection. Consider other alternatives for urinary incontinence care. Stop meropenem and observe for signs directly attributable to her infection and urinary tract before restarting. Family and patient refused for cheng catheter removal. Patient with longstanding overflow incontinence issues. Discussed increased risk for UTIs Replaced on 04/24. She refuses removal as there is an issue with frequent urinary incontinence and concern for subsequent skin breakdown, will need monthly changes Outpatient follow-up with urology Cheng exchanged 05/22/21 Chest pain - resolved -Developed chest pain on 03/27 and was transferred to [facility] with telemetry -Troponin negative x2, EKG nonischemic -Reproducible on exam, likely musculoskeletal in nature -Another episode of chest pain on 04/06 evening, EKG and troponin unremarkable resolved -Another episode of chest pain on 05/23 evening-serial enzymes and EKG not reflective of ACS, pain resolved with nitro. Outpatient followup with PCP Headache- reports h/o migraines no Zomig on outpatient medication list 05/28: headache reported, overnight CT head returned normal, Naproxen 05/29: headache resolved Chronic Diastolic CHF pt with episode of decompensated CHF while hospitalized, now resolved -Echo 03/21/2021 -EF 55-60%, grade 2 diastolic dysfunction 03/14 CXR: Mild pulmonary edema. Possible small left pleural effusion 03/14 IV dose of Lasix 03/28 IV Lasix x 1 dose euvolemic today, daily weights 05/24-patient is asking for Lasix, will give small oral dose for "foot swelling" although there is none on exam. She is not on diuretics at home so will not start something consistently 05/27: Reports taking Breo for asthma at home, requesting this be added to her med regimen now. 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 Fields CMT (Pefhcwu-Yxjng-Ewzzf disease): S/p multiple lower extremity procedures, most recently s/p left knee closed reduction total knee arthroplasty subluxation on 02/16/2021 - patient is to remain nonweightbearing of the left lower extremity and limited weightbearing on the right lower extremity Narcotics have been stopped-added Tramadol for relief 05/04: she consistently is asking for pain meds and would like some more tonight. 05/23: tramadol PRN restarted 05/24: asking for Lyrica, however, would prefer Neurology to make that change as outpatient. Noted that her gabapentin was at 900mg TID prior to admission. Currently she is at 200mg TID. Will increase this to 600mg TID and plan to increase again to 900 TID in 7 days if no improvement in pain. If she then fails gabapentin trial, may consider Lyrica as outpatient. Restarted Mobic 7.5mg PO daily for pain per home regimen prior to arrival. Cont diclofenac gel. Patient is bedbound and transferring is a safety issue. 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 Clinical correlation will be essential. Orthopedic consulted for left calcaneal superior posterior avulsion fracture status post fall: High tide walking boot removed, replaced with a dorsiflexion splint with a negative relief under the left heel and lambs wool padding to provide essentially neutral support for neutral dorsiflexion of the left ankle and heel and foot. Orthopedic recommending may use the walking boot for transfers or ambulating and wheelchair as necessary. Follow-up with outpatient orthopedics. Dr. Crain, [facility] Per patient request, bilateral ankle x-rays ordered on 04/13 - ordered, unchanged, follow up with Dr. Crain Continues to have LLE discomfort. Evaluated by Favio Sofia PA-C patient with good ROM but painful. No further workup at this time Neurontin increased and Mobic added as above. 05/27: patient denies any pain today! Left knee pain Complaint of left knee pain Knee xray shows intact replacement, no acute abnormalities Continue knee brace and pain med Continue monitor Parkinson disease: Sinemet on hold, cont risperidone Chronic pain: Continue current regimen, minimize escalations in narcotics Will consult orthotic for left hand brace - orthotics to get a, "therapy carrott," which is a device that provides gradual ext of fingers overtime. Pt declining this and states she is to get surgery at [facility] on discharge Neurontin, Mobic, PRN tramadol DVT prophylaxis: SQ Lovenox Disposition:Medically stable; awaiting placement to facility vs home with services. Marie Ceballos DO [facility] Hospitalist Admission and Anticipated Discharge Date Admission Date: March 12, 2021 Subjective 76 yo F with multiple comorbidities including chronic pain with prolonged hospital course beyond initial presentation for pneumonia and UTI reports resolution of headache since yesterday chronic numbness in right foot left leg pain with current position-would like to be repositioned. Review of Systems Review of Systems: All systems reviewed & are unremarkable except as noted in Subjective Physical Exam Physical Exam: Gen: WD/WN, NAD, lying in bed, NAD HEENT: Normocephalic, atraumatic, mucous membranes moist Lung: Clear to Auscultation bilaterally but diminished. No wheezes/rales/rhonchi Heart: Regular rate, regular rhythm, no murmurs, rubs, or gallops Abdomen: Soft, NT, ND : Cheng Extremities: Chronic weakness, LLE wrap in place, contractures of left hand. No edema Skin: Warm and dry Results & Data Results & Data ([facility]) Vital Signs (Past 12 Hours) Vital Signs Temp Pulse Resp BP Pulse Ox 05/29/21 07:06 36.6 C 61 16 142/70 H 99 Medications Administered Current Inpatient Medications Acetaminophen (Acetaminophen 500 Mg Tab) 500 mg PO Q8@0000,0800,1600 [facility] Stop: 06/10/21 15:59 Last Admin: 05/29/21 08:26 Dose: 500 mg Documented by: Al Hydrox/Mg Hydrox/Simethicone (Aluminum/Magnesium Susp 30 Ml Udc) 15 ml PO Q6H PRN PRN Reason: Dyspepsia Stop: 06/19/21 14:21 Albuterol (Albut/Ipratrop 3mg/0.5mg Neb 3 Ml Vial) 3 ml NEB Q4R PRN PRN Reason: Shortness Of Breath Or Wheezing Stop: 06/10/21 10:48 Last Admin: 05/27/21 21:41 Dose: 3 ml Documented by: Amlodipine Besylate (Amlodipine Besylate 5 Mg Tab) 5 mg PO QAM [facility] Stop: 06/10/21 12:14 Last Admin: 05/29/21 08:26 Dose: 5 mg Documented by: Aspirin (Aspirin 81 Mg Ectab) 81 mg PO DAILY [facility] Stop: 06/10/21 08:59 Last Admin: 05/29/21 08:26 Dose: 81 mg Documented by: Carbidopa/Levodopa (Carbidopa/Levodopa 25/100mg Tab) 1 tab PO TID [facility] Stop: 05/31/21 13:59 Diclofenac Sodium (Diclofenac Sod 1% Gel 100 Gm Tube) 2 gm EXT Q6 [facility] Stop: 06/10/21 15:29 Last Admin: 05/29/21 11:34 Dose: 2 gm Documented by: Docusate Sodium (Docusate Sodium 100 Mg Cap) 100 mg PO DAILY PRN PRN Reason: Constipation Stop: 06/10/21 16:59 Last Admin: 05/22/21 02:06 Dose: 100 mg Documented by: Ezetimibe (Ezetimibe 10 Mg Tablet) 10 mg PO HS [facility] Stop: 06/10/21 20:59 Last Admin: 05/28/21 21:12 Dose: 10 mg Documented by: Enoxaparin Sodium (Enoxaparin Inj 40 Mg/0.4 Ml Syr) 40 mg SQ Q24H [facility] Stop: 06/10/21 20:59 Last Admin: 05/28/21 21:11 Dose: 40 mg Documented by: Ferrous Sulfate (Ferrous Sulfate 325 Mg Tab) 325 mg PO DAILY@1100 [facility] Stop: 06/10/21 10:59 Last Admin: 05/29/21 11:34 Dose: 325 mg Documented by: Fluticasone/Vilanterol (Fluticasone/Vilanterol 100/25mcg 14 Puffs/Inhaler) 1 puffs INH DAILY [facility] Stop: 06/26/21 15:29 Last Admin: 05/29/21 08:27 Dose: 1 puffs Documented by: Furosemide (Furosemide 20 Mg Tab) 10 mg PO QAM [facility] Stop: 06/24/21 09:29 Last Admin: 05/29/21 08:25 Dose: 10 mg Documented by: Gabapentin (Gabapentin 300 Mg Cap) 600 mg PO TID [facility] Stop: 06/24/21 13:59 Last Admin: 05/29/21 08:26 Dose: 600 mg Documented by: Lactase (Lactase 3000 Unit Tab) 3,000 units PO AC [facility] Stop: 06/10/21 16:59 Last Admin: 05/29/21 11:34 Dose: 3,000 units Documented by: Lamotrigine (Lamotrigine 25 Mg Tab) 75 mg PO HS [facility] Stop: 06/10/21 20:59 Last Admin: 05/28/21 21:11 Dose: 75 mg Documented by: Lidocaine (Lidocaine 5% 1 Patch) 1 patch TD DAILY [facility] Stop: 06/10/21 08:59 Last Admin: 05/29/21 08:27 Dose: 1 patch Documented by: Magnesium Oxide (Magnesium Oxide 400 Mg Tab) 400 mg PO BID [facility] Stop: 06/10/21 20:59 Last Admin: 05/29/21 08:27 Dose: 400 mg Documented by: Meloxicam (Meloxicam 7.5 Mg Tab) 7.5 mg PO QAM [facility] Stop: 06/24/21 09:29 Last Admin: 05/29/21 08:26 Dose: 7.5 mg Documented by: Metoprolol Tartrate (Metoprolol Tartrate 25 Mg Tab) 12.5 mg PO BID [facility] Stop: 06/25/21 20:59 Last Admin: 05/29/21 08:26 Dose: 12.5 mg Documented by: Miscellaneous (Remove Lidoderm Patch) 1 ea N/A 2100 [facility] Stop: 06/13/21 20:59 Last Admin: 05/28/21 21:15 Dose: 1 ea Documented by: Nitroglycerin (Nitroglycerin Sl 0.4 Mg/Tab Tab) 0.4 mg SL PRN PRN PRN Reason: Chest Pain Stop: 06/10/21 21:40 Last Admin: 05/24/21 04:16 Dose: 0.4 mg Documented by: Ondansetron HCl (Ondansetron Inj 2 Mg/Ml 2 Ml Vial) 4 mg IV Q8H PRN PRN Reason: Nausea And Vomiting Stop: 06/01/21 18:12 Last Admin: 05/27/21 00:26 Dose: 4 mg Documented by: Pantoprazole Sodium (Pantoprazole 40 Mg Tab) 40 mg PO DAILY [facility] Stop: 06/10/21 08:59 Last Admin: 05/29/21 08:26 Dose: 40 mg Documented by: Polyethylene Glycol (Polyethylene (Miralax) 17 Gm Pack) 17 gm PO DAILY PRN PRN Reason: Constipation Stop: 06/10/21 04:42 Last Admin: 05/21/21 08:09 Dose: 17 gm Documented by: Potassium Chloride (Potassium Chloride 10 Meq Tabcr) 10 meq PO BID [facility] Stop: 06/10/21 20:59 Last Admin: 05/29/21 08:26 Dose: 10 meq Documented by: Risperidone (Risperidone 0.5 Mg Tablet) 0.5 mg PO TODAY@1400 [facility] Stop: 06/01/21 13:59 Last Admin: 05/28/21 13:06 Dose: 0.5 mg Documented by: Senna/Docusate Sodium (Docusate Sodium/Senna 50/8.6mg Tab) 1 tab PO QAM [facility] Stop: 06/10/21 04:44 Last Admin: 05/29/21 08:27 Dose: 1 tab Documented by: Tramadol HCl (Tramadol Hcl 50 Mg Tablet) 50 mg PO Q4H PRN PRN Reason: Pain Stop: 06/23/21 08:01 Last Admin: 05/29/21 09:23 Dose: 50 mg Documented by: Zolpidem Tartrate (Zolpidem Tartrate 5 Mg Tab) 5 mg PO HS PRN PRN Reason: Sleep Stop: 06/05/21 21:55 Last Admin: 05/28/21 21:10 Dose: 5 mg Documented by:
[2021-05-29] MEDS: risperiDONE 0.5 MG TABLET PO SCH (13:31)
[2021-05-29] MEDS: lamoTRIgine 25 MG TAB PO SCH (21:39)
[2021-05-29] MEDS: EZETIMIBE 10 MG TABLET PO SCH (21:39)
[2021-05-29] MEDS: ENOXAPARIN INJ 40 MG/0.4 ML SYR SQ SCH (21:39)
[2021-05-30] MEDS: ZOLPIDEM TARTRATE 5 MG TAB PO PRN (00:55)
[2021-05-30] MEDS: DOCUSATE SODIUM 100 MG CAP PO PRN (05:18)
[2021-05-30] MEDS: DICLOFENAC SOD 1% GEL 100 GM TUBE EXT SCH (05:19)
[2021-05-30] MEDS: GABAPENTIN 300 MG CAP PO SCH (08:14)
[2021-05-30] MEDS: MELOXICAM 7.5 MG TAB PO SCH (08:15)
[2021-05-30] MEDS: LACTASE 3000 UNIT TAB PO SCH (08:15)
[2021-05-30] MEDS: ASPIRIN 81 MG ECTAB PO SCH (08:15)
[2021-05-30] MEDS: METOPROLOL TARTRATE 25 MG TAB PO SCH (08:15)
[2021-05-30] MEDS: ADVANCED PROBIOTIC 1250 MG CAPSULE PO SCH (08:15)
[2021-05-30] MEDS: ACETAMINOPHEN 500 MG TAB PO SCH (08:15)
[2021-05-30] MEDS: MAGNESIUM OXIDE 400 MG TAB PO SCH (08:15)
[2021-05-30] MEDS: PANTOprazole 40 MG TAB PO SCH (08:15)
[2021-05-30] MEDS: DOCUSATE SODIUM/SENNA 50/8.6MG TAB PO SCH (08:15)
[2021-05-30] MEDS: FUROSEMIDE 20 MG TAB PO SCH (08:15)
[2021-05-30] MEDS: amLODIPine BESYLATE 5 MG TAB PO SCH (08:16)
[2021-05-30] MEDS: POTASSIUM CHLORIDE 10 MEQ TABCR PO SCH (08:16)
[2021-05-30] MEDS: FLUTICASONE/VILANTEROL 100/25MCG 14 PUFFS/INHALER INH SCH (08:16)
[2021-05-30] MEDS: LIDOCAINE 5% 1 PATCH TD SCH (08:16)
[2021-05-30] MEDS: traMADol HCL 50 MG TABLET PO PRN (09:41)
--- NOTE | 2021-05-30 17:20 | Discharge Summary ---
Date of Service May 30, 2021 Admission HPI Per Admitting Provider 76-year-old female with PMH Parkinson's, Ufxkclx-Kpdna-Pabpz disease, HTN, HLD, history of TIA, CKD stage III, chronic Cheng catheter with recurrent UTIs, wheelchair-bound, multiple lower extremity surgeries, who presents to the ED for evaluation of shortness of breath and wheezing. Patient recently admitted to [facility] 02/15 through 02/23 for left knee pain, s/p left closed subluxation total knee arthroplasty. Patient discharged to [facility] and has since returned home. History was obtained from patient's [id number] who the patient is currently residing. Reports that around midnight, the patient started coughing. Also developed a wheeze that progressively got worse throughout the night. Symptoms not relieved with home nebulizer treatment. Patient was then brought to the ED for further evaluation. Patient is chronically ill however reports that she is currently feeling okay. Patient denies any choking episodes last evening. Denies chest pain. No lightheadedness, dizziness, diaphoresis, s yncopal events. Denies abdominal pain, nausea, vomiting, diarrhea. Cheng catheter remains in place. In the ED, patient is requiring 2 L of oxygen via nasal cannula. CXR shows bibasilar opacities. UA is suggestive of UTI. Labs unremarkable. Patient was hypertensive at 207/95 and received 1 dose of labetalol with improvement in blood pressure. Patient was also given IV Unasyn and IVF. Admission Exam Per Admitting Provider Constitutional: WD/WN, vitals as above + ill appearing (Chronically) and + obese; no acute distress Eyes: PERRL, conjunctivae normal, anicteric sclerae ENMT: external ear and nose normal, oropharynx normal Respiratory: normal respiratory effort; no respiratory distress Auscultation: + diminished lung sounds Cardiovascular: Rate/Rhythm: regular rate and regular rhythm Vessels: normal peripheral pulses Extremities: no edema Gastrointestinal (Abdomen): normal bowel sounds, soft, nontender, no hepatosplenomegaly Musculoskeletal: Extremities: no cyanosis and no clubbing Generally weak throughout Skin: no rashes, warm and dry Neurologic: PERRL, EOMI, accommodation nl, no face palsy, no dysarthria Psychiatric: Orientation: alert and oriented x 3 Affect: + flat affect Principal Diagnosis Pneumonia CAUTI 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 Discharge Exam Constitutional WD/WN, vitals as above Respiratory normal respiratory effort, lungs clear to auscultation Cardiovascular Rate/Rhythm: regular rate and regular rhythm Vessels: normal peripheral pulses Extremities: no edema Gastrointestinal (Abdomen) Percussion/Palpation: abdomen soft; abdomen nontender Musculoskeletal Chronic bilateral lower extremity weakness, left hand contracture Skin no rashes, warm and dry Neurologic no focal motor deficits Psychiatric Orientation: alert and oriented x 3 Affect: + flat affect Discharge Data Allergies Allergy/AdvReac Type Severity Reaction Status Date / Time bee venom protein (honey bee) Allergy Severe ANAPHYLAXIS Verified 03/12/21 11:42 shellfish derived Allergy Severe anaphylaxis Verified 03/12/21 11:42 Sulfa (Sulfonamide Allergy Severe ANAPHYLAXIS Verified 03/12/21 11:42 Antibiotics) strawberry Allergy Unknown Unknown Verified 03/29/21 12:25 Fish Containing Products Allergy Verified 03/15/21 09:12 fish derived Allergy Verified 03/15/21 09:12 fish oil Allergy Verified 03/15/21 09:12 Consultations 03/13/21 10:27 Consult Palliative Care Routine 03/16/21 08:02 Consult Orthopedic Surgery Routine 03/21/21 00:50 Consult Neurology Routine 03/23/21 15:40 Consult Psychiatry Routine 04/24/21 12:09 Consult Infectious Diseases Routine Ordered Studies Laboratory Results WBC 5.91 K/uL (4.8-10.8) 05/23/21 06:58 RBC 4.02 M/uL (4.2-5.4) L 05/23/21 06:58 Hgb 11.1 g/dL (12.0-16.0) L 05/23/21 06:58 Hct 34.5 % (37-47) L 05/23/21 06:58 MCV 85.8 fL (80-100) 05/23/21 06:58 MCH 27.6 pg (25-34) 05/23/21 06:58 MCHC 32.2 g/dL (32-36) 05/23/21 06:58 RDW Std Deviation 42.6 fL (36.4-46.3) 05/23/21 06:58 RDW Coeff of Tsering 13.5 % (11.5-14.5) 05/23/21 06:58 Plt Count 226 K/uL (130-400) 05/23/21 06:58 MPV 9.9 fL (7.4-10.4) 05/23/21 06:58 Immature Gran % (Auto) 0.2 % 05/23/21 06:58 Neut % (Auto) 51.8 % 05/23/21 06:58 Lymph % (Auto) 33.3 % 05/23/21 06:58 [place] % (Auto) 11.3 % 05/23/21 06:58 Eos % (Auto) 3.2 % 05/23/21 06:58 Baso % (Auto) 0.2 % 05/23/21 06:58 Neut # (Auto) 3.06 K/uL (1.4-6.5) 05/23/21 06:58 Lymph # (Auto) 1.97 K/uL (1.2-3.4) 05/23/21 06:58 [place] # (Auto) 0.67 K/uL (0.11-0.59) H 05/23/21 06:58 Eos # (Auto) 0.19 K/uL (0-0.5) 05/23/21 06:58 Baso # (Auto) 0.01 K/uL (0-0.2) 05/23/21 06:58 Immature Gran # (Auto) 0.01 K/uL (0.00-0.02) 05/23/21 06:58 APTT 31.7 Seconds (21.0-31.0) H 05/24/21 04:35 PTT Ratio 1.2 05/24/21 04:35 Sodium 133 mmol/L (136-145) L 05/23/21 06:58 Potassium 4.0 mmol/L (3.5-5.1) 05/23/21 06:58 Chloride 99 mmol/L (98-107) 05/23/21 06:58 Carbon Dioxide 29 mmol/L (21-32) 05/23/21 06:58 Anion Gap 5 (3-11) 05/23/21 06:58 BUN 13 mg/dl (6-23) 05/23/21 06:58 Creatinine 0.63 mg/dl (0.6-1.2) 05/23/21 06:58 Est Cr Clr Drug Dosing 75.9 ml/min 05/23/21 06:58 Est GFR ( Amer) 101.7 ml/min 05/23/21 06:58 Est GFR (Non-Af Amer) 87.7 ml/min 05/23/21 06:58 BUN/Creatinine Ratio 20.6 (10-20) H 05/23/21 06:58 Glucose 82 mg/dl (70-99(Fasting)) 05/23/21 06:58 POC Glucose 82 mg/dl (70-99) 04/02/21 09:03 Osmolality 275 mOsm/kg (280-300) L 05/15/21 12:43 Lactate 1.9 mmol/L (0.4-2.0) 03/12/21 14:24 Calcium 9.3 mg/dl (8.5-10.1) 05/23/21 06:58 Phosphorus 4.3 mg/dl (2.5-4.9) 04/30/21 07:34 Magnesium 1.6 mg/dl (1.7-2.4) L 05/17/21 05:32 Total Bilirubin 0.6 mg/dl (0.2-1) 03/28/21 08:07 Direct Bilirubin 0.1 mg/dl (0-0.2) 03/28/21 08:07 AST 9 U/L (15-37) L 03/28/21 08:07 ALT 8 U/L (12-78) L 03/28/21 08:07 Alkaline Phosphatase 81 U/L (45-117) 03/28/21 08:07 Troponin I < 0.03 ng/ml (0-0.04) 05/24/21 04:35 Total Protein 6.4 gm/dl (6.4-8.2) 03/28/21 08:07 Albumin 3.1 gm/dl (3.4-5.0) L 03/28/21 08:07 NT-Pro-B Natriuret Pep 93 pg/ml (0-900) 04/04/21 05:51 Globulin 3.4 gm/dl (2.5-4.0) 03/20/21 23:22 Albumin/Globulin Ratio 0.9 (0.9-2) 03/20/21 23:22 Triglycerides 141 mg/dl (0-150) 03/22/21 05:04 Cholesterol 176 mg/dl (0-200) 03/22/21 05:04 LDL Cholesterol, Calc 107 mg/dl 03/22/21 05:04 VLDL Cholesterol, Calc 28 mg/dl 03/22/21 05:04 HDL Cholesterol 41 mg/dl 03/22/21 05:04 Cholesterol/HDL Ratio 4 03/22/21 05:04 Procalcitonin < 0.05 ng/ml (0-0.5) 03/12/21 14:26 TSH 1.151 uIu/ml (0.300-4.500) 05/17/21 05:32 Specimen Hemolysis 03/26/21 09:50 Urine Color Yellow 05/22/21 14:30 Urine Appearance Turbid (Clear) A 05/22/21 14:30 Urine pH >= 9.0 (4.5-7.5) H 05/22/21 14:30 Ur Specific [place] 1.012 (1.000-1.030) 05/22/21 14:30 Urine Protein Trace (Negative) H 05/22/21 14:30 Urine Glucose (UA) Negative (Negative) 05/22/21 14:30 Urine Ketones Negative (Negative) 05/22/21 14:30 Urine Blood 1+ (Negative) H 05/22/21 14:30 Urine Nitrite Negative (Negative) 05/22/21 14:30 Urine Bilirubin Negative (Negative) 05/22/21 14:30 Urine Urobilinogen Negative (Negative) 05/22/21 14:30 Ur Leukocyte Esterase Trace (Negative) H 05/22/21 14:30 Urine WBC (Auto) 5-10 /hpf (0-5) H 05/22/21 14:30 Urine RBC (Auto) 5-10 /hpf (0-4) H 05/22/21 14:30 U Hyaline Cast (Auto) 5-10 /lpf (0-5) H 05/22/21 14:30 U Epithel Cells (Auto) >30 /lpf (0-5) H 05/22/21 14:30 Urine Bacteria (Auto) Negative (Negative) 05/22/21 14:30 Ur Renal Epithelial Cell Not Reportable 05/22/21 14:30 Urine Crystals Not Reportable 03/12/21 14:00 Calcium Oxalate Crystal Present (None Prsent) A 03/12/21 14:00 Urine Yeast Not Reportable 03/12/21 14:00 Urine Osmolality 336 mOsm/kg (500-800) L 05/15/21 16:05 Ur Random Sodium 68 mmol/L 05/15/21 16:05 Nasal Screen MRSA (PCR) Negative (Negative) 03/21/21 05:44 Stool Occult Bld Scrn Negative (Negative) 03/19/21 12:26 COVID-19 Eval Order Covid19 at [facility] 03/12/21 11:35 SARS-CoV-2 (PCR) NEGATIVE (Negative) 04/03/21 05:02 Influenza Type A (PCR) Negative (Neg) 04/03/21 05:02 Influenza Type B (PCR) Negative (Neg) 04/03/21 05:02 RSV (RT-PCR) Negative (Neg) 04/03/21 05:02 IMP Carbapenemase (KVNG) NOT DETECTED (NotDetected) 04/20/21 07:29 KPC Carbapenemase (KVNG) NOT DETECTED (NotDetected) 04/20/21 07:29 NDM Carbapenemase (KVNG) NOT DETECTED (NotDetected) 04/20/21 07:29 OXA Carbapenemase (KVNG) NOT DETECTED (NotDetected) 04/20/21 07:29 VIM Carbapenemase (KVNG) NOT DETECTED (NotDetected) 04/20/21 07:29 Impressions Chest CTA 03/20/21 23:19 CT ANGIOGRAPHY OF THE CHEST, PULMONARY EMBOLUS PROTOCOL CLINICAL HISTORY: Atypical chest pain. COMPARISON STUDY: Chest CT October 02, 2009. Chest radiograph March 15, 2021. TECHNIQUE: Following IV administration of 121 mL of Optiray, helical axial images of the chest were obtained utilizing the pulmonary embolus protocol. Maximal intensity projections and sagittal and coronal reformats were viewed on an independent 3D workstation. IV contrast was administered without complication. Automated exposure control was utilized for the study. A dose lowering technique was utilized adhering to the principles of ALARA. FINDINGS: No pulmonary emboli are identified although the segmental and subsegmental pulmonary arteries are suboptimally assessed on this exam. There is no thoracic aortic dissection. The caliber of the thoracic aorta is normal. There is moderate cardiomegaly. No pneumothorax or pleural effusion is noted. Mild groundglass and tree-in-bud nodules within the bilateral lower lobes are noted. There is a small hiatal hernia. Subpleural lower lobe opacities reflect atelectasis. There is no thoracic lymphadenopathy. No acute fracture or suspicious lesion is identified within visualized skeletal structures. IMPRESSION: 1. No pulmonary emboli identified although segmental and subsegmental pulmonary arteries suboptimally assessed on this exam. 2. No thoracic aortic dissection. 3. Moderate cardiomegaly. 4. Mild ground glass opacities and tree-in-bud nodules within the bilateral lower lobes. This favors a mild infectious process. A chest CT in in 3 months to ensure resolution is recommended ACT 112: Negative or not required by law. Electronically signed by: David Spring M.D. 03/21/2021 9:05 AM Head CTA 03/20/21 23:20 CT angio head w con CLINICAL HISTORY: Stroke protocol. Evaluate for CVA COMPARISON STUDY: CT brain without contrast from 03/20/2021 and previous CTA of the brain from 11/03/2020 TECHNIQUE: CT Angio of the brain was performed.followed by image post processing with coronal, and sagittal MIP reformats. Contrast Volume: Optiray 320, 121 ml FINDINGS: Vascular findings: There is normal enhancement within the internal carotid arteries bilaterally. There is normal enhancement of the anterior and middle cerebral arteries bilaterally. 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 However, the posterior communicating arteries are patent bilaterally with filling of the distal posterior cerebral arteries bilaterally and normal flow present. Findings are unchanged. Nonvascular findings: There is homogeneous attenuation of the brain parenchyma bilaterally. There is no evidence for an acute infarct or cerebral edema. IMPRESSION: Essentially negative CT angiogram of the brain with contrast. There is no significant interval change. ACT 112: Negative or not required by law. Electronically signed by: Eliot Webber M.D. 03/21/2021 7:47 AM Neck CTA 03/20/21 23:20 CT ANGIOGRAPHY OF THE NECK WITH CONTRAST CLINICAL HISTORY: Cerebrovascular accident. COMPARISON STUDY: CTA of the neck November 03, 2020. Technique: CT angiography of the carotid and vertebral arteries was obtained using Optiray and 3D reconstruction on an independent workstation. NASCET criteria was utilized. Automated exposure control was utilized for the study. A dose lowering technique was utilized adhering to the principles of ALARA. CT DOSE: 2447.00 mGy.cm Findings: Please note that the chest CT and CTA of the head will be reported separately. Postoperative findings within the cervical spine are noted. There is no acute cervical spine fracture. No cervical lymphadenopathy. The bilateral common carotid, cervical internal carotid and vertebral arteries are patent. No dissection within these vessels is identified. There is minimal plaque within the bilateral carotid bifurcations. No aneurysm within the neck is noted. There is no intraluminal thrombus IMPRESSION: Unremarkable CTA of the neck. ACT 112: Negative or not required by law. Electronically signed by: David Spring M.D. 03/21/2021 8:59 AM Brain MRI 03/21/21 00:50 MR brain wo con CLINICAL HISTORY: Evaluate for CVA. Previous stroke alert. COMPARISON STUDY: CT brain from 03/20/2021 and previous MR brain from 11/06/2020 TECHNIQUE: Multiplanar multisequence images of the Brain were performed without IV contrast. Diffusion weighted imaging and ADC mapping was also performed. FINDINGS: Extra-axial space: There is no evidence for a subdural hematoma, There are no extra-axial fluid collections. Ventricles and cisterns: The ventricles are normal in size and configuration. There is no evidence for midline shift or mass effect. Parenchyma: There is no evidence for an acute hemorrhage or infarct. No acute diffusion abnormalities are noted on diffusion weighted imaging or ADC mapping. There is normal villa-white differentiation. The sulci and gyri appear normal without effacement. The midline structures are unremarkable. The posterior fossa structures appear normal. There is no evidence for mass lesion. Osseous structures: The paranasal sinuses are well aerated. The mastoid air cells are well aerated. Soft tissues: No focal soft tissue abnormalities are identified. IMPRESSION: No acute intracranial abnormalities. ACT 112: Negative or not required by law. Electronically signed by: Eliot Webber M.D. 03/21/2021 9:43 AM Gallbladder Ultrasound 03/27/21 14:44 ABDOMINAL ULTRASOUND, RIGHT UPPER QUADRANT HISTORY: Right upper quadrant abdominal pain.. COMPARISON: None. FINDINGS: Pancreas: The pancreatic head and tail are obscured by overlying bowel gas. The remaining portions of the pancreas are within normal limits. Liver: The liver is echogenic consistent with fatty change. 16 cm in length. Gallbladder: No gallbladder wall thickening. No gallstones. CBD: 8 mm. This is considered slightly distended given the patient's age. Right kidney: No hydronephrosis. Multiple cysts with the largest in the upper pole measuring 3.5 cm. This contains a septation IMPRESSION: 1. Normal gallbladder. No gallstones. 2. Mild hepatic steatosis. 3. Slightly distended common bile duct measuring 8 mm given the patient's age. 4. Right renal cysts. Dominant 3.5 cm cyst within the upper pole contains a septation. Consider one year ultrasound follow-up to ensure stability. ACT 112: Negative or not required by law. Electronically signed by: Alfonzo Sparrow M.D. 03/27/2021 8:54 PM Ankle X-Ray 04/13/21 09:03 XR ankle RT 2V, XR ankle LT min 3V routine CLINICAL HISTORY: Bilateral ankle pain. COMPARISON STUDY: Left ankle radiograph 03/15/2021. FINDINGS: There are 2 screws within the distal right fibula and a single screw within the right medial malleolus transfixing old, healed fractures. No acute fracture or dislocation within the right ankle. The bones are osteopenic. Moderate osteoarthritis at the tibiotalar joint demonstrated by joint space narrowing, mild subchondral sclerosis, and marginal osteophytes. Small bilateral plantar heel spurs. Soft tissue swelling within the bilateral ankles. There is mild osteoarthritis within the left tibiotalar joint. The left tibia and fibula are intact. No dislocation. No change in the 1.8 cm density at the left posterior ankle. This could be due to an age-indeterminate avulsion fracture at the posterior left calcaneus. Vascular calcifications are noted. IMPRESSION: 1. No change in 1.8 cm ossific density at the posterior left ankle. This could be due to an age-indeterminate avulsion fracture at the posterior calcaneus. 2. No acute fracture or dislocation within the right ankle. 3. 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 4. The bones are osteopenic. 5. Bilateral ankle soft tissue swelling. ACT 112: Negative or not required by law. Electronically signed by: Alfonzo Sparrow M.D. 04/13/2021 1:09 PM Chest X-Ray 04/25/21 21:31 XR chest 1V portable CLINICAL HISTORY: sob. COMPARISON STUDY: 03/28/2021 TECHNIQUE: 1 view of the chest FINDINGS: Single frontal view of the chest demonstrates the heart to again be enlarged. There is a decreased inspiratory effort with elevation of the hemidiaphragms and crowding of the bronchovascular markings at the lung bases and centrally. The lungs are clear of alveolar opacities. There is no evidence for pleural effusion. There is no evidence for vascular congestion. There is no acute osseous pathology. IMPRESSION: There is a decreased inspiratory effort with otherwise no acute chest disease. ACT 112: Negative or not required by law. Electronically signed by: Eliot Webber M.D. 04/25/2021 9:55 PM Knee X-Ray 05/12/21 07:48 XR knee LT 1 or 2V routine CLINICAL HISTORY: Left knee pain. COMPARISON: CT of the left knee February 16, 2021. Left knee radiographs February 15, 2021. FINDINGS: Alignment of the left knee is anatomic. There is no acute fracture. No periprosthetic lucency is present. Postoperative appearance is unchanged. There is no evidence for a left knee joint effusion. IMPRESSION: 1. Intact total left knee arthroplasty. No periprosthetic fracture or lucency. 2. No joint effusion. ACT 112: Negative or not required by law. Electronically signed by: David Spring M.D. 05/12/2021 9:34 AM Forearm X-Ray 05/23/21 21:36 XR forearm LT 2V HISTORY: 76 years-old Female pain . Acute pain of the left forearm COMPARISON: Left wrist radiographs 11/04/2020 TECHNIQUE: 2 views of the left forearm FINDINGS: Osteoarthritis of the wrist and elbow. Mild dorsal soft tissue swelling of the proximal to mid forearm. Apparent widening of the scapholunate interval redemonstrated. Demineralized appearance of the bones. There is no acute fracture, dislocation, osseous erosion or opaque foreign body. IMPRESSION: Soft tissue swelling without acute fracture. ACT 112: Negative or not required by law. The above report was generated using voice recognition software. It may contain grammatical, syntax or spelling errors. Electronically signed by: Ney Khan M.D. 05/24/2021 6:[address] 05/27/21 20:54 CT head/brain wo con CLINICAL HISTORY: Headache COMPARISON STUDY: 03/31/2021 CT DOSE: 537.48 mGy.cm TECHNIQUE: Standard CT of the Brain was performed without IV contrast. A dose lowering technique was utilized adhering to the principles of ALARA. FINDINGS: Extraaxial space: There is no evidence for subdural hematoma. There are no extra-axial fluid collections. Ventricles and cisterns: The ventricles are normal in size and configuration. There is no evidence for midline shift or mass effect. Parenchyma: There is no subarachnoid or intraparenchymal hemorrhage. There is no evidence for an acute infarct or cerebral edema. There is homogeneous attenuation of the brain parenchyma. There are no gross mass lesions. Osseous structures: The patient is again status post previous TMJ surgery. There is no evidence for an acute fracture. The visualized paranasal sinuses are clear. The mastoid air cells are clear bilaterally. Soft tissues: There is no evidence for focal soft tissue swelling. IMPRESSION: No acute intracerebral pathology. ACT 112: Negative or not required by law. Electronically signed by: Eliot Webber M.D. 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 Prolonged hospital course for lack of disposition. UTI sx pt reported suprapubic pain on 05/22 cheng exchanged 05/22 and UA obtained and no bacteruria she is afebrile and wbc WNL no active infection Pneumonia Admission CXR - bibasilar infiltration more on the right could be secondary to aspiration versus HCAP Initial lactic acid 3.2---> 1.9, no other signs of sepsis. MRSA screen negative Zosyn 03/12 --> change to Augmentin 03/14 -->Levaquin 03/15 d/t E.cloacae and E. 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 On Ambien. 04/18 - visual and auditory hallucinations, worsening delusions/paranoia. Per psychiatry, tapered Risperdal in favor of trial of Zyprexa 2.5 mg at bedtime. Zyprexa increased to 5 mg at bedtime on 04/22 04/24 - Decrease Zyprexa back to 2.5mg qhs given emergence of side effects (daytime fatigue, flattening of affect and softer speech) at higher dose. May need to consider reducing dopamine agent for Parkinson's to better target psychotic symptoms versus Seroquel trail if symptoms persist on low dose Zyprexa. discussed with psychiatry, stopped Sinemet afternoon dose as it can be driving her psychosis 04/29 - DC zyprexa 05/01-Risperdal had been started 03/24 which was then cross-tapered to Olanzapine which was stopped due to worsening bradykinesia and parkinsonism side effects. Despite understanding that her Sinemet contributes to her paranoia, she would like to have this restarted. 05/02-Sinemet on hold and risperidone restarted. Seems to be more animated on risperdal per psych, continue - as of 05/15/2105/24-taking risperidone consistently, hold sinement, mentating clearly, oriented, no hallucinations noted. CAUTI:Chronic indwelling Cheng catheter History of recurrent UTIs. Patient overdue for follow-up with urology---> Alexandrea BETANCOURT to arrange for outpatient follow-up for management of her chronic Cheng UA was suggestive of infection, 03/12 urine culture Enterobacter cloacae and E. coli. Completed Levaquin. 04/18 - reports burning at Cheng site Repeat urine culture growing Enterobacter cloacae, multidrug-resistant. On meropenem Unclear if true infection or colonization ID consulted -presence of bacteriuria and pyuria expected with an indwelling catheter and has no specificity for UTI. No systemic s/sx of infection. Consider other alternatives for urinary incontinence care. Stop meropenem and observe for signs directly attributable to her infection and urinary tract before restarting. Family and patient refused for cheng catheter removal. Patient with longstanding overflow incontinence issues. Discussed increased risk for UTIs Replaced on 04/24. She refuses removal as there is an issue with frequent urinary incontinence and concern for subsequent skin breakdown, will need monthly changes Outpatient follow-up with urology Cheng exchanged 05/22/21 Chest pain - resolved -Developed chest pain on 03/27 and was transferred to [facility] with telemetry -Troponin negative x2, EKG nonischemic -Reproducible on exam, likely musculoskeletal in nature -Another episode of chest pain on 04/06 evening, EKG and troponin unremarkable resolved -Another episode of chest pain on 05/23 evening-serial enzymes and EKG not reflective of ACS, pain resolved with nitro. Outpatient followup with PCP Headache- reports h/o migraines no Zomig on outpatient medication list 05/28: headache reported, overnight CT head returned normal, Naproxen 05/29: headache resolved Chronic Diastolic CHF pt with episode of decompensated CHF while hospitalized, now resolved -Echo 03/21/2021 -EF 55-60%, grade 2 diastolic dysfunction 03/14 CXR: Mild pulmonary edema. Possible small left pleural effusion 03/14 IV dose of Lasix 03/28 IV Lasix x 1 dose euvolemic today, daily weights 05/24-patient is asking for Lasix, will give small oral dose for "foot swelling" although there is none on exam. Started on Lasix 10 mg daily. 05/27: Reports taking Breo for asthma at home, requesting this be added to her med regimen now. 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 Fields CMT (Nkujleo-Rwkhb-Swqcm disease): S/p multiple lower extremity procedures, most recently s/p left knee closed reduction total knee arthroplasty subluxation on 02/16/2021 - patient is to remain nonweightbearing of the left lower extremity and limited weightbearing on the right lower extremity Narcotics have been stopped-added Tramadol for relief 05/04: she consistently is asking for pain meds and would like some more tonight. 05/23: tramadol PRN restarted 05/24: asking for Lyrica, however, would prefer Neurology to make that change as outpatient. Noted that her gabapentin was at 900mg TID prior to admission. Currently she is at 200mg TID. Will increase this to 600mg TID and plan to increase again to 900 TID in 7 days if no improvement in pain. If she then fails gabapentin trial, may consider Lyrica as outpatient. Restarted Mobic 7.5mg PO daily for pain per home regimen prior to arrival. Cont diclofenac gel. Patient is bedbound and transferring is a safety issue. 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 Clinical correlation will be essential. Orthopedic consulted for left calcaneal superior posterior avulsion fracture status post fall: High tide walking boot removed, replaced with a dorsiflexion splint with a negative relief under the left heel and lambs wool padding to provide essentially neutral support for neutral dorsiflexion of the left ankle and heel and foot. Orthopedic recommending may use the walking boot for transfers or ambulating and wheelchair as necessary. Follow-up with outpatient orthopedics. Dr. Crain, [facility] Per patient request, bilateral ankle x-rays ordered on 04/13 - ordered, unchanged, follow up with Dr. Crain Continues to have LLE discomfort. Evaluated by Favio Sofia PA-C patient with good ROM but painful. No further workup at this time Neurontin increased and Mobic added as above. Left knee pain Complaint of left knee pain Knee xray shows intact replacement, no acute abnormalities Continue knee brace and pain med Continue monitor Parkinson disease: Sinemet on hold, cont risperidone Chronic pain: Continue current regimen, minimize escalations in narcotics Will consult orthotic for left hand brace - orthotics to get a, "therapy carrott," which is a device that provides gradual ext of fingers overtime. Pt declining this and states she is to get surgery at [facility] on discharge Neurontin, Mobic, PRN tramadol Total Time Total Time Spent Total Time Spent (In Minutes): 45 Discharge Plan Discharge Items Patient Disposition: Home - Home Health Services Reason For Visit: Shortness of Breath Discharge Diagnosis: Pneumonia UTI Psychotic disorder Activity: As commented below Activity Comment: as tolerated, use lift and other assistive devices Non-emergency contact: Primary Care Provider and Psychiatrist Call non-emergency contact if: you have any medication questions, your symptoms worsen, your pain is not controlled and you have a fever Follow-up/Referrals: Jamey Guillen MD [Physician] - 06/06/21 9:20 am (tele visit appointment) Edi Vallejo PA-C [Outside Practitioners] - 06/04/21 11:00 am (tele visit appointment) Diet: Regular Diet Texture: Mechanical soft (ground) Addtl Attending Provider Instructions: You came to the hospital for evaluation of shortness of breath. You were diagnosed with pneumonia and completed antibiotics while in the hospital. You also had a UTI and completed antibiotics for that as well. Your Cheng catheter was changed on 05/25/21 - this will need to be exchanged monthly. Also, please schedule a follow up appointment with urology provider of your choice. You were evaluated by psychiatry and had medication changes made. Take medications as per discharge medication list. Appointment has been made for you with Dr. Guillen. Tele visit has also been made for you with Edi Vallejo PA-C at [facility]. Keep this appointment as schedu Follow-up with outpatient orthopedics. Dr. Crain, [facility] Follow up with neurolgy for management of Parkinson's. Home health and caregivers have been arranged. Pending Studies at Discharge: No Stand-Alone Forms: My [facility] [place], Smoking Cessation Medications and DC Order Prescriptions: New ipratropium-albuterol 0.5 mg-3 mg(2.5 mg base)/3 mL Solution For Nebulization 3 ml NEB Q4R PRN (Reason: shortness of breath or wheezing) Qty: 90 RF: 0 sennosides-docusate sodium [Senokot-S] 8.6-50 mg Tablet 1 tab PO QAM Qty: 30 RF: 0 amlodipine [Norvasc] 5 mg Tablet 5 mg PO QAM Qty: 30 RF: 0 tramadol 50 mg Tablet 50 mg PO Q4H PRN (Reason: pain) Qty: 30 RF: 0 acetaminophen [Tylenol Extra Strength] 500 mg Tablet 500 mg PO Q8@0000,0800,1600 Qty: 90 RF: 0 magnesium oxide 400 mg (241.3 mg magnesium) Tablet 400 mg PO BID Qty: 60 RF: 0 gabapentin 300 mg Capsule 600 mg PO TID Qty: 180 RF: 0 zolpidem 5 mg Tablet 5 mg PO HS PRN (Reason: insomnia) Qty: 14 RF: 0 furosemide 20 mg Tablet 10 mg PO QAM Qty: 20 RF: 0 risperidone 0.5 mg Tablet 0.5 mg PO TODAY@1400 Qty: 30 RF: 0 metoprolol tartrate 25 mg Tablet 12.5 mg PO BID Qty: 20 RF: 0 diclofenac sodium [Voltaren Arthritis Pain] 1 % Gel 2 g EXT Q6 Qty: 100 RF: 0 Advanced Probiotic 625 mg (10 billion cell) Capsule 2 cap PO DAILY Qty: 60 RF: 0 Continued lidocaine [Aspercreme (lidocaine HCl)] 4 % adhesive patch,medicated 1 patch topical DAILY Qty: 30 RF: 0 potassium chloride 10 mEq tablet extended release 10 meq PO BID Qty: 60 RF: 0 aspirin [Adult Aspirin Regimen] 81 mg tablet,delayed release (DR/EC) 81 mg PO DAILY Qty: 30 RF: 0 lamotrigine [Lamictal] 25 mg tablet 75 mg PO HS Qty: 90 RF: 0 meloxicam 7.5 mg tablet 7.5 mg PO DAILY Qty: 30 RF: 0 ferrous sulfate 325 mg (65 mg iron) Tablet 325 mg PO QDL Qty: 30 RF: 0 lactase 3,000 unit Tablet 3,000 unit PO AC Qty: 90 RF: 0 docusate sodium 100 mg Capsule 100 mg PO DAILY PRN (Reason: Constipation) Qty: 30 RF: 0 omeprazole 20 mg capsule,delayed release(DR/EC) 20 mg PO DAILY Qty: 30 RF: 0 polyethylene glycol 3350 [Miralax] 17 gram/dose powder 17 g PO DAILY PRN (Reason: Constipation) Qty: 119 RF: 0 carbidopa-levodopa 25-100 mg Tablet 1 tab PO TID Qty: 90 RF: 0 ezetimibe 10 mg tablet 10 mg PO HS Qty: 30 RF: 0 Changed Breo Ellipta 100-25 mcg/dose blister with device 1 inh INHALATION DAILY Qty: 60 RF: 0 Discontinued gabapentin 600 mg Tablet 900 mg PO TID Qty: 135 RF: 0 isosorbide mononitrate 30 mg tablet extended release 24 hr 30 mg PO QAM Qty: 30 RF: 0 acetaminophen [Tylenol Extra Strength] 500 mg tablet 1,000 mg PO BID Qty: 60 RF: 0 baclofen 10 mg tablet 10 mg PO QID Qty: 120 RF: 0 amlodipine 10 mg tablet 10 mg PO DAILY Qty: 30 RF: 0 albuterol sulfate 2.5 mg/0.5 mL solution for nebulization 5 mg inhalation Q4H PRN (Reason: Shortness Of Breath) Qty: 10 RF: 0 diclofenac sodium 1 % gel 4 g topical QID Qty: 100 RF: 0 melatonin 5 mg capsule 5 mg PO HS Qty: 30 RF: 0 tramadol 50 mg tablet 50 mg PO BID PRN (Reason: Pain) RF: 0 Toviaz 4 mg tablet extended release 24 hr 4 mg PO QPM RF: 0 Discharge Orders: Discharge Order (Routine); Ordered 05/30/21 Ordered By: Tracy Rashid/Other Patient Handouts: Preventing Deep Vein Thrombosis Admission Data Admit Date/Time: 03/12/21 14:00 Attending Provider: Namrata Keith Admit Provider: Brenna Powers Primary Care Provider: Brenna Powers Other Providers: [facility],Home Healthcare ; [facility] ; [facility] ; Brenna Powers ; Adelaida Leo ; Favio Ford ; Phyllis Lanier ; Julio C Fairchild ; Phyllis Fields ; Brice Landrum ; India Martell ; Renate Blanc ; Paola Grider ; Chandrakant Chavez ; [facility] ; [facility] ; Estrella Parson ; Dillon Dominguez ; Dhiraj Nunes ; Barbara Gonzalez ; Jus Cervantes I. ; Magdaleno Kaur II ; Selina Flores ; Nasir Anton ; Ricky Crawford ; Marie Ceballos ; Logan Steen ; Soledad Jorge Other Interventions: Discharge Summary Assessment (RN) Last Done: 05/30/21 10:31 Supervising Physician Co-Signing Physician Notes Patient was seen and evaluated independently. Chart was reviewed. Case was discussed with CARLOS. I agree with assessment and plan as outlined above
== END 2021-05-30 12:20 | disposition home health service (06) | DRG 177 ==
LOC: ED 09:58 → 2N 14:00 → SUATTDRO 14:00 → SUPCPDRO 14:00 → 2N 16:27 → 3E 03-18 15:29 → 1E 03-21 01:54 → 3W 03-25 14:18 → 2W 03-27 10:27 → 3W 03-29 22:10 → 3N 04-06 12:08